=== PATIENT | female | born 1940 | race Caucasian/White ===

== ENCOUNTER 2016-04-10 13:25 | Emergency (ER) | payer OTHER ==
[~2016-04-10] VITALS: Ht 154.9 cm; Wt 96.7 kg
[~2016-04-10 13:25] MED LIST: ALPR0.25 PO; AZEL0.15 NAE; CLON0.5T3 PO; KRIL1000 PO; LORA10TA51 PO
[2016-04-10 13:34] VITALS: TEMP 36.8; Ht 154.9 cm; Wt 96.7 kg
[2016-04-10] MEDS ORDERED: METHYLPREDNISOLONE 125 MG VIAL IV STA (13:49)
--- NOTE | 2016-04-10 13:55 | EMERGENCY ROOM VISIT NOTE ---
History Report prepared by Cindy: Santhosh Chavez Under the Supervision of: Dr. Rbo Coker M.D. First contact with patient: 13:43 Chief Complaint: SHORTNESS OF BREATH Stated Complaint: SHORT OF BREATH, HOLDING FLUID, CHEST PAIN Nursing Triage Summary: Pt presents with sob that began last night. Intermittent chest pain across breasts, denies pain at present. Pt also reports swelling to hands/feets. History of Present Illness The patient is a 75 year old female who presents to the Emergency Room with complaints of persistent shortness of breath that started last night. She says she could not get a good breath and she had awful wheezing and coughing. The patient also notes that she has been building up a lot of fluid, and has had decreased amounts of urination. She states that she is "swollen from head to toe ". The patient is concerned about potential heart failure. She has no history of CHF, kidney problems, or lung problems. 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 The patient is an ex-smoker. She is not on an inhaler. The patient is diabetic. Source of History: patient Onset: Last night Position: other (global - shortness of breath) Timing: other (persistent) Associated Symptoms: + cough, + urinary symptoms (decreased urination amounts) Note: Associated symptoms: Global swelling, wheezing. Review of Systems See HPI for pertinent positives & negatives. A total of 10 systems reviewed and were otherwise negative. Past Medical & Surgical Medical Problems: (1) Diabetes (2) History of benign brain tumor (3) History of spinal stenosis (4) History of uterine cancer (5) Hypertension (6) Neuropathy Surgical Problems: (1) History of hysterectomy Family History Diabetes mellitus FH: cancer FH: heart disease FHx: gallbladder disease Hypertension Kidney disease Kidney stones Social History Smoking Status: Former Smoker Alcohol Use: none Drug Use: none Marital Status: Housing Status: lives with family Occupation Status: retired Current/Historical Medications Scheduled Aspirin (Aspirin Ec), 81 MG PO BID Azelastine Hcl (Astepro), 2 SPRY RAJAT DAILY Biotin (Biotin 5000), 2 CAP PO 3XWK Duloxetine HCl (Cymbalta), 60 CAP PO QDL Duloxetine Hcl (Cymbalta), 30 MG PO 3pm Epinephrine (Epipen), 0.3 MG IM UD Ergocalciferol (Vitamin D Cap), 50,000 INTER.UNIT PO WK Gabapentin (Neurontin), 400 MG PO TID Insulin Glargine (Lantus), 50-52 UNITS SC HS Insulin Lispro (Human) (Humalog Kwikpen), 1 UNITS SQ TIDM Krill Oil (Krill Oil), 1 CAP PO DAILY Magnesium Oxide (Mag-Ox), 400 MG PO HS Metoprolol Succ (Toprol Xl) (Toprol-Xl), 12.5 MG PO DAILY Multiple Vitamins W/ Minerals (Ocuvite), 1 TAB PO DAILY Nitroglycerin (Nitrostat), 0.4 MG UT PRN Prednisone (Prednisone), 20 MG PO DAILY Scheduled PRN Calcium Carbonate (Tums), 2 TABS PO DAILY PRN for ACID REFLUX Loratadine (Claritin), 1 TAB PO DAILY PRN for ALLERGIC REACTION Allergies Coded Allergies: Meperidine and Related (Unverified Allergy, Severe, almost "closed throat ", 11/10/14) Midodrine (Unverified Allergy, Severe, "almost closed throat", 11/10/14) Penicillins (Unverified Allergy, Severe, ANAPHYLAXIS, 11/10/14) Quinolones (Verified Allergy, Severe, TOLERATED LEVAQUIN IV - SEP 06, 11/10) CIPRO-THROAT CLOSED Sulfamethoxazole w/Trimethoprim (Verified Allergy, Severe, THROAT CLOSED, 05/14/15) Diphenoxylate (Verified Allergy, Intermediate, 11/10/14) Replaces DIPHENOXYLATE2 PINS & NEEDLES, DIFFICULTY BREATHING Glyburide (Verified Allergy, Intermediate, 11/10/14) GLUCOVANCE-PINS AND NEEDLES,DIFFICULTY BREATHING Metformin (Verified Allergy, Intermediate, 11/10/14) GLUCOVANCE-PINS & NEEDLES,DIFFICULTY BREATHING ALSO GLUCOPHAGE XR-EXTREME ABDOMINAL PAIN Nitrofurantoin (Verified Allergy, Intermediate, 11/10/14) RASH Oxycodone (Verified Allergy, Intermediate, 11/10/14) SEVERE RASH Paroxetine (Verified Allergy, Intermediate, 11/10/14) PINS & NEEDLES, DIFFICULTY BREATHING Ranitidine (Verified Allergy, Intermediate, 11/10/14) RASH Repaglinide (Verified Allergy, Intermediate, 11/10/14) PINS &NEEDLES, DIFFICULTY BREATHING Rosiglitazone (Verified Allergy, Intermediate, 11/10/14) PINS & NEEDLES, DIFFICULTY BREATHING Temazepam (Verified Allergy, Intermediate, 11/10/14) PINS & NEEDLES, DIFFICULTY BREATHING DENILSON Inhibitors (Unverified Allergy, Unknown, unknown to pt, 11/10/14) Atropine (Verified Allergy, Unknown, 11/10/14) H2 Antagonists (Unverified Allergy, Unknown, unknown to pt, 11/10/14) Iodinated Diagnostic Agents (Verified Allergy, Unknown, `, 05/14/15) Phenazopyridine (Verified Allergy, Unknown, 11/10/14) Carbamazepine (Verified Adverse Reaction, Severe, 11/10/14) TOO HARD ON DIGESTIVE TRACT-ALSO IN COMBO WITH DEPAKOTE ER CAUSED PLATELET COUNT TO DROP VERY LOW Valproate Derivatives (Verified Adverse Reaction, Severe, 11/10/14) COULDN'T WAKE UP-ALSO DEPAKOTE ER WITH TEGRETOL CAUSED PLATELET COUNT TO DROP VERY LOW Albuterol (Verified Adverse Reaction, Intermediate, 11/10/14) HEART PALPITATIONS Olanzapine (Verified Adverse Reaction, Intermediate, 11/10/14) COULDN'T WAKE UP, HALLUCINATIONS Rofecoxib (Verified Adverse Reaction, Intermediate, 11/10/14) RAISES BLOOD PRESSURE Diazepam (Verified Adverse Reaction, Mild, SEDATION LASTING TOO LONG, 11/10) COULDN'T WAKE UP Ibuprofen (Verified Adverse Reaction, Mild, 11/10/14) SICK STOMACH Lisinopril (Verified Adverse Reaction, Mild, 11/10/14) EXCESSIVE HUNGER Mirtazapine (Verified Adverse Reaction, Mild, 06/17/13) SEVERE DRY MOUTH Physical Exam Vital Signs Date Time Temp Pulse Resp B/P Pulse Ox O2 Delivery O2 Flow Rate FiO2 04/10/16 18:19 90 19 174/86 95 Room Air 04/10/16 15:58 98 18 98 Room Air 04/10/16 15:17 84 18 173/73 95 04/10/16 13:49 99 04/10/16 13:34 36.8 96 16 141/93 95 Room Air Physical Exam CONSTITUTIONAL: Mild distress. HEENT: No icterus, moist mucous membranes NECK: No meningismus, trachea is midline. CARDIOVASCULAR: Regular rate, normal perfusion RESPIRATORY: Bilateral mild wheezing without rhonchi or rales. GASTROINTESTINAL: Non-tender GENITOURINARY: No flank tenderness MUSCULOSKELETAL: Full range of motion NEUROLOGIC: No acute gross focal deficits. PSYCHIATRIC: Normal affect SKIN: Normal for ethnicity.No pedal edema. Medical Decision & Procedures ER Provider Diagnostic Interpretation: X-ray results as stated below per interpretation by me and the radiologist. CHEST ONE VIEW PORTABLE CLINICAL HISTORY: Dyspnea, atypical chest pain, wheezing. COMPARISON STUDY: 05/13/2015 FINDINGS: The cardiac and mediastinal contours remain stable. There is no failure. There is no focal pulmonary consolidation. There is stable left basilar atelectasis/scarring.[ IMPRESSION: No active disease in the chest. Electronically signed by: Onel Fernández M.D. 04/10/2016 2:04 PM Dictated Date/Time: 04/10/2016 2:04 PM Laboratory Results 04/10/16 13:50 Red Blood Count 5.25, Mean Corpuscular Volume 76.0, Mean Corpuscular Hemoglobin 24.6, Mean Corpuscular Hemoglobin Concent 32.3, Mean Platelet Volume 9.1, Neutrophils (%) (Auto) 75.0, Lymphocytes (%) (Auto) 17.6, Monocytes (%) (Auto) 5.2, Eosinophils (%) (Auto) 1.6, Basophils (%) (Auto) 0.3, Neutrophils # (Auto) 5.23, Lymphocytes # (Auto) 1.23, Monocytes # (Auto) 0.36, Eosinophils # (Auto) 0.11, Basophils # (Auto) 0.02 04/10/16 13:50 Test 04/10/16 13:50 04/10/16 14:32 04/10/16 16:10 White Blood Count 6.97 K/uL (4.8-10.8) Red Blood Count 5.25 M/uL (4.2-5.4) Hemoglobin 12.9 g/dL (12.0-16.0) Hematocrit 39.9 % (37-47) Mean Corpuscular Volume 76.0 fL (80-100) Mean Corpuscular Hemoglobin 24.6 pg (25-34) Mean Corpuscular Hemoglobin Concent 32.3 g/dl (32-36) Platelet Count 121 K/uL (130-400) Mean Platelet Volume 9.1 fL (7.4-10.4) Neutrophils (%) (Auto) 75.0 % Lymphocytes (%) (Auto) 17.6 % Monocytes (%) (Auto) 5.2 % Eosinophils (%) (Auto) 1.6 % Basophils (%) (Auto) 0.3 % Neutrophils # (Auto) 5.23 K/uL (1.4-6.5) Lymphocytes # (Auto) 1.23 K/uL (1.2-3.4) Monocytes # (Auto) 0.36 K/uL (0.11-0.59) Eosinophils # (Auto) 0.11 K/uL (0-0.5) Basophils # (Auto) 0.02 K/uL (0-0.2) RDW Standard Deviation 40.7 fL (36.4-46.3) RDW Coefficient of Variation 14.7 % (11.5-14.5) Immature Granulocyte % (Auto) 0.3 % Immature Granulocyte # (Auto) 0.02 K/uL (0.00-0.02) Prothrombin Time 12.0 SECONDS (9.0-12.0) Prothromb Time International Ratio 1.1 (0.9-1.1) Activated Partial Thromboplast Time 25.3 SECONDS (21.0-31.0) Partial Thromboplastin Ratio 1.0 D-Dimer 410 ug/L FEU (0-500) Anion Gap 7.0 mmol/L (3-11) Est Creatinine Clear Calc Drug Dose 43.1 ml/min Estimated GFR () 51.2 Estimated GFR (Non- 44.2 BUN/Creatinine Ratio 18.4 (10-20) Estimated Average Glucose 169 mg/dl Hemoglobin A1c 7.5 % (4.5-5.6) Calcium Level 9.1 mg/dl (8.5-10.1) Magnesium Level 2.2 mg/dl (1.8-2.4) Total Bilirubin 0.6 mg/dl (0.2-1) Direct Bilirubin 0.1 mg/dl (0-0.2) Aspartate Amino Transf (AST/SGOT) 17 U/L (15-37) Alanine Aminotransferase (ALT/SGPT) 29 U/L (12-78) Alkaline Phosphatase 80 U/L (45-117) Troponin I 0.040 ng/ml (0-0.045) Pro-B-Type Natriuretic Peptide 60 pg/ml (0-900) Total Protein 7.9 gm/dl (6.4-8.2) Albumin 3.5 gm/dl (3.4-5.0) Influenza Type A Antigen Neg for Influ A (NEG) Influenza Type B Antigen Neg for Influ B (NEG) Urine Color YELLOW Urine Appearance CLEAR (CLEAR) Urine pH 6.5 (4.5-7.5) Urine Specific [place] 1.006 (1.000-1.030) Urine Protein NEG (NEG) Urine Glucose (UA) 1+ (NEG) Urine Ketones NEG (NEG) Urine Occult Blood NEG (NEG) Urine Nitrite NEG (NEG) Urine Bilirubin NEG (NEG) Urine Urobilinogen NEG (NEG) Urine Leukocyte Esterase MODERATE (NEG) Urine WBC (Auto) >30 /hpf (0-5) Urine RBC (Auto) 0-4 /hpf (0-4) Urine Hyaline Casts (Auto) 0 /lpf (0-5) Urine Epithelial Cells (Auto) 20-30 /lpf (0-5) Urine Bacteria (Auto) NEG (NEG) Labs reviewed by ED physician. Medications Administered Medications (Trade) Dose Ordered Sig/Brittany Route Start Time Stop Time Status Last Admin Dose Admin Albuterol (Ventolin Hfa Inhaler) 2 puffs NOW ONCE INH 04/10/16 14:00 04/10/16 14:01 DC 04/10/16 14:25 2 PUFFS Methylprednisolone Sodium Succinate (Solu-Medrol IV) 125 mg NOW STAT IV 04/10/16 13:49 04/10/16 13:52 DC 04/10/16 14:25 125 MG ECG Indication: SOB/dyspnea Rate (beats per minute): 94 Rhythm: normal sinus Findings: no ectopy, other (normal axis, nonspecific ST findings) ED Course 1345: Past medical records reviewed. The patient was evaluated in room C10. A complete history and physical examination was performed. 1349: Ordered Solu-Medrol IV 125 mg IV. 1400: Ordered Ventolin Hfa Inhaler 2 puffs INH. 1720: I reevaluated the patient and her wheezing has improved. The patient verbally expressed agreement and understanding of the treatment plan. The patient will be discharged. Medical Decision Differential diagnoses include: viral syndrome, wheezing, CHF, heart disease. 35-year-old presented to the emergency room for evaluation of occasional cough with subjective sense of whole-body swelling for several days as well as subjective sense that she is not urinating as much. She is specifically concerned that she may be in heart failure. Lungs are noted to have mild scattered wheezing in all archibald without rales and there is no pedal edema. Labs and chest x-ray were unremarkable. She was given albuterol MDI and spacer in the emergency room with administration of this time at her IV. She felt better on reexamination without any wheezing and was given a prescription for prednisone for 5 days. GEN chest follow-up with her doctor and return for worsening worrisome symptoms Impression Primary Impression: Wheezing Scribe Attestation The scribe's documentation has been prepared under my direction and personally reviewed by me in its entirety. I confirm that the note above accurately reflects all work, treatment, procedures, and medical decision making performed by me. Departure Information Dispostion Home / Self-Care Prescriptions Prednisone (Prednisone) 20 Mg Tab 20 MG PO DAILY for 5 Days, #5 TAB Prov: Rob Coker MD 04/10/16 Referrals Khadijah Smith,DO (PCP) Forms HOME CARE DOCUMENTATION FORM, IMPORTANT VISIT INFORMATION Patient Instructions A Signature Page, ED Wheezing, [facility]
[2016-04-10] MEDS ORDERED: ALBUTEROL HFA 8 GM INHALER INH ONE (14:00)
[2016-04-10] MEDS ORDERED: CYM/30 PO ×2 (14:01→16:13)
--- NOTE | 2016-04-10 14:06 | DIAGNOSTIC IMAGING REPORT ---
CHEST ONE VIEW PORTABLE CLINICAL HISTORY: Dyspnea, atypical chest pain, wheezing. COMPARISON STUDY: 05/13/2015 FINDINGS: The cardiac and mediastinal contours remain stable. There is no failure. There is no focal pulmonary consolidation. There is stable left basilar atelectasis/scarring.[ IMPRESSION: No active disease in the chest. Electronically signed by: Onel Fernández M.D. 04/10/2016 2:04 PM Dictated Date/Time: 04/10/2016 2:04 PM
[2016-04-10 14:10] LABS: BASO % 0.3 %; BASO ABS # 0.02 K/uL (0-0.2); COMPLETE YES; EOS % 1.6 %; HEMATOCRIT 39.9 % (37-47); IG% 0.3 %; LYMPH % 17.6 %; LYMPH ABS # 1.23 K/uL (1.2-3.4); MEAN CORPUSCULAR HEMOGLOBIN 24.6 pg (25-34); MEAN CORPUSCULAR HGB CONC 32.3 g/dl (32-36); MEAN PLATELET VOLUME 9.1 fL (7.4-10.4); MONO % 5.2 %; PLATELET COUNT 121 K/uL (130-400); RED BLOOD COUNT 5.25 M/uL (4.2-5.4); WHITE BLOOD COUNT 6.97 K/uL (4.8-10.8)
[2016-04-10 14:18] LABS: INR 1.1 (0.9-1.1)
[2016-04-10 14:32] LABS: BUN/CREATININE RATIO 18.4 (10-20); CALCIUM 9.1 mg/dl (8.5-10.1); CREATININE 1.2 mg/dl (0.60-1.20); MAGNESIUM 2.2 mg/dl (1.8-2.4); POTASSIUM 4.3 mmol/L (3.5-5.1)
[2016-04-10 14:52] LABS: ESTIMATED AVERAGE GLUCOSE 169 mg/dl; HA1C FLAG Normal (Normal)
[2016-04-10] MEDS ORDERED: INSDGI SC (15:03)
[2016-04-10] MEDS ORDERED: GABA1CAP5 PO (15:09)
[2016-04-10] MEDS ORDERED: MAGN400T6 PO (16:13)
[2016-04-10] MEDS ORDERED: INSU100I2 SQ (16:13)
[2016-04-10] MEDS ORDERED: ERGO1CAP35 PO (16:13)
[2016-04-10] MEDS ORDERED: BIOTCAP2 PO (16:13)
[2016-04-10] MEDS ORDERED: CALC500C3 PO (16:13)
[2016-04-10] MEDS ORDERED: ASPI81TA28 PO (16:17)
[2016-04-10] MEDS ORDERED: MULT-188 PO (16:17)
[2016-04-10 16:47] LABS: URINE APPEARANCE CLEAR (CLEAR); URINE BILIRUBIN NEG (NEG); URINE COLOR YELLOW; URINE EPITHELIAL CELL AUTO 20-30 /lpf (0-5); URINE NITRITE NEG (NEG); URINE PH 6.5 (4.5-7.5); URINE SPECIFIC GRAVITY 1.006 (1.000-1.030); UROBILINOGEN NEG (NEG); ZZUR CULT IF INDIC CLEAN CATCH YES
[2016-04-10 16:50] LABS: MANUAL MICROSCOPIC REQUIRED? NO; REVIEW REQ? NO
[2016-04-10] MEDS ORDERED: PRED20TA PO (17:33)
[2016-04-10 18:19] VITALS: BP 174/86; PULSE 90; O2SAT 95
[2016-04-10] MEDS ORDERED: EPP3/2 IM (18:31)
[2016-04-10] MEDS ORDERED: METO25TA3 PO (18:31)
[2016-04-10] MEDS ORDERED: NITR0.4S UT (18:31)
--- NOTE | 2016-04-12 13:48 | Pharmacy Progress Note ---
ED Pharmacist Culture FollowUp Date of Service: Apr 12, 2016. Patient's urine culture from 04/10/16 growing E coli 50,000 CFU/mL plus low counts of other mixed praveena. Patient did not present with urinary symptoms, rather had been c/o SOB, wheezing, mild cough and fluid retention. UA did contain 20-30 epis likely indicating contamination. I attempted to contact the patient to determine if she had urinary symptoms (ph # [phone]). There was no answer. I did leave a message on her ans machine asking she call back. If she does have urinary symptoms she should have a repeat urine cx done by her PCP.
== END 2016-04-10 18:43 | disposition home or self-care (01) ==
LOC: C.EDB 13:31 → C.EDC 18:43
DX: R06.2 Wheezing (principal); E11.9 Type 2 diabetes mellitus without complications; I10 Essential (primary) hypertension; Z85.41 Personal history of malignant neoplasm of cervix uteri; Z90.710 Acquired absence of both cervix and uterus; Z87.891 Personal history of nicotine dependence; Z79.82 Long term (current) use of aspirin; Z79.4 Long term (current) use of insulin; Z79.899 Other long term (current) drug therapy; Z88.0 Allergy status to penicillin; Z88.2 Allergy status to sulfonamides; Z88.5 Allergy status to narcotic agent; Z88.8 Allergy status to other drugs, medicaments and biological substances

== ENCOUNTER → 2016-05-04 | Outpatient (CLI) | payer OTHER ==
[~2016-05-04] MED LIST changes: -ALPR0.25 PO; +ASPI81TA28 PO; +BIOTCAP2 PO; +CALC500C3 PO; -CLON0.5T3 PO; +CYM/30 PO; +EPP3/2 IM; +ERGO1CAP35 PO; +GABA1CAP5 PO; +INSDGI SC; +INSU100I2 SQ; +MAGN400T6 PO; +METO25TA3 PO; +MULT-188 PO; +NITR0.4S UT
--- NOTE | 2016-05-09 06:37 | CODING QUERY MEDICAL NECESSITY ---
SUPPORTING DIAGNOSIS NEEDED A supporting diagnosis is required for the test/procedure performed on this patient in order for us to be reimbursed by the patient's insurance. Please provide a supporting diagnosis for the following test/procedure listed below next to the test name along with your signature. *If there is no additional diagnosis for this patient that would support the following test/procedure please document that below next to the test/procedure. Test(s)/Procedure(s) that require a supporting diagnosis: * DXA BONE DENSITY DIAGNOSIS: * DOS: 05/04/16 Provider Signature: Date: Thank you Ivania Salas Health Information Management Once completed, please kindly fax back to [phone] For questions please call [phone]
== END | disposition home or self-care (01) ==
LOC: C.MAMM 13:01
PROVIDERS: ATTEND Internal Medicine Endocrinology, Diabetes & Metabolism
DX: M48.02 Spinal stenosis, cervical region (principal); E55.9 Vitamin D deficiency, unspecified; E66.9 Obesity, unspecified; E11.9 Type 2 diabetes mellitus without complications

== ENCOUNTER → 2016-05-26 | Outpatient (CLI) | payer OTHER ==
[2016-05-26 17:06] LABS: ALT/SGPT 35 U/L (12-78); AST/SGOT 27 U/L (15-37); BLOOD UREA NITROGEN 27 mg/dl (7-18); BUN/CREATININE RATIO 26.8 (10-20); CALCIUM 9.2 mg/dl (8.5-10.1); CARBON DIOXIDE 30 mmol/L (21-32); CHLORIDE 101 mmol/L (98-107); CHOLESTEROL 139 mg/dl (0-200); GLUCOSE 153 mg/dl (70-99); POTASSIUM 4.1 mmol/L (3.5-5.1); SODIUM 138 mmol/L (136-145)
[2016-05-26 17:15] LABS: ALB/GLOB RATIO 0.8 (0.9-2); ALKALINE PHOSPHATASE 67 U/L (45-117); CHOLESTEROL/HDL RATIO 3.2; FERRITIN 65.1 ng/ml (8.0-388.0); HDL CHOLESTEROL 43 mg/dl; LDL CHOLESTEROL CALCULATED 61 mg/dl; TOTAL IRON BINDING CAPACITY 303 mcg/dl (250-450); TRIGLYCERIDES 173 mg/dl (0-150); VERY LOW DENSITY LIPOPROT CALC 35 mg/dl
--- NOTE | 2016-05-30 12:00 | CODING QUERY MEDICAL NECESSITY ---
SUPPORTING DIAGNOSIS NEEDED A supporting diagnosis is required for the test/procedure performed on this patient in order for us to be reimbursed by the patient's insurance. Please provide a supporting diagnosis for the following test/procedure listed below next to the test name along with your signature. *If there is no additional diagnosis for this patient that would support the following test/procedure please document that below next to the test/procedure. Test(s)/Procedure(s) that require a supporting diagnosis: DOS 05/26 * Vitamin D DIAGNOSIS: * Vitamin B12 DIAGNOSIS: Provider Signature: Date: Thank you Carol Sexton Health Information Management Once completed, please kindly fax back to [phone] For questions please call [phone]
[2016-05-31 12:15] LABS: ILGF1 Z SCORE FEMALE 0.1 SD (-2.0 - +2.0); INSULIN LIKE GROWTH FACTOR-I 105 ng/mL (34-245); TESTOSTERONE,TOTAL 10 ng/dL (2-45)
== END | disposition home or self-care (01) ==
LOC: C.LAB1850 15:34
PROVIDERS: ATTEND Internal Medicine Endocrinology, Diabetes & Metabolism
DX: L65.9 Nonscarring hair loss, unspecified (principal); E11.9 Type 2 diabetes mellitus without complications; E55.9 Vitamin D deficiency, unspecified

== ENCOUNTER → 2016-10-02 | Outpatient (CLI) | payer OTHER ==
--- NOTE | 2016-10-02 17:18 | DIAGNOSTIC IMAGING REPORT ---
MRI OF THE LUMBAR SPINE WITHOUT CONTRAST CLINICAL HISTORY: Lumbar spinal stenosis. Chronic low back pain radiating into both lower extremities. COMPARISON STUDY: Lumbar spine MRI August 27, 2010. TECHNIQUE: Utilizing a 1.5 Trisha magnet and dedicated coil, multiplanar, multiecho imaging of the lumbar spine was performed without IV contrast. FINDINGS: For purposes of numbering on this exam, the L5-S1 disc space is assigned to axial image 27 of 30. Vertebral body heights are maintained. No suspicious marrow replacement is present. Discogenic changes are noted at multiple levels. There is no intracanalicular mass or fluid collection. Paravertebral soft tissues are unremarkable. There are innumerable bilateral renal lesions. These likely reflect cysts are suboptimally assessed on this unenhanced exam. L1-2: The central canal and neural foramen are patent. There is moderate facet arthrosis. L2-3: There is marked disc space narrowing with disc bulge, ligamentous hypertrophy and facet arthrosis. There is moderate to severe narrowing of the central canal and lateral recesses with mild narrowing of both neural foramen. This has diminished since exam of August 27, 2010. L3-4: There is marked disc space narrowing with minimal disc bulge. There is ligamentous hypertrophy and facet arthrosis. There is moderate to severe narrowing of the central canal. This is progressed since prior exam. L4-5: There is disc space narrowing. There is facet arthrosis. Central canal is patent. There is mild narrowing of the left neural foramen. L5-S1: The central canal is patent. There is mild narrowing of the right neural foramen. There is facet arthrosis. IMPRESSION: Moderate to severe multilevel degenerative disc disease and facet arthrosis of the lumbar spine. Moderate to severe central canal stenosis at L2-L3 and L3-L4, as described above. Narrowing at L2-L3 has improved since prior exam while narrowing at L3-L4 has progressed since exam of August 27, 2010. Electronically signed by: Kirby Anna M.D. 10/02/2016 5:17 PM Dictated Date/Time: 10/02/2016 5:11 PM
== END | disposition home or self-care (01) ==
LOC: C.MRIBC 15:56
PROVIDERS: ATTEND Pain Medicine Interventional Pain Medicine
DX: M48.06 Spinal stenosis, lumbar region (principal)

== ENCOUNTER → 2016-10-05 | Outpatient (CLI) | payer OTHER ==
[2016-10-05 14:41] LABS: HEMATOCRIT 41.3 % (37-47)
[2016-10-05 15:23] LABS: RATIO 98.3 mcg/mg (0-30.0)
[2016-10-06 06:10] LABS: ESTIMATED AVERAGE GLUCOSE 163 mg/dl; HA1C FLAG Normal (Normal)
== END | disposition home or self-care (01) ==
LOC: C.LAB1850 13:42
PROVIDERS: ATTEND Internal Medicine Endocrinology, Diabetes & Metabolism
DX: E11.9 Type 2 diabetes mellitus without complications (principal)

== ENCOUNTER → 2017-02-12 | Outpatient (CLI) | payer OTHER ==
[2017-02-12 15:21] LABS: ALT/SGPT 53 U/L (12-78); AST/SGOT 36 U/L (15-37); BLOOD UREA NITROGEN 20 mg/dl (7-18); BUN/CREATININE RATIO 18.6 (10-20); CALCIUM 9.2 mg/dl (8.5-10.1); CARBON DIOXIDE 30 mmol/L (21-32); CHLORIDE 103 mmol/L (98-107); CREATININE 1.08 mg/dl (0.60-1.20); GLUCOSE 124 mg/dl (70-99); POTASSIUM 4.5 mmol/L (3.5-5.1); SODIUM 139 mmol/L (136-145)
[2017-02-12 15:24] LABS: ALB/GLOB RATIO 0.9 (0.9-2); ALKALINE PHOSPHATASE 68 U/L (45-117)
== END | disposition home or self-care (01) ==
LOC: C.LAB1850 13:39
PROVIDERS: ATTEND Internal Medicine Cardiovascular Disease
DX: E11.21 Type 2 diabetes mellitus with diabetic nephropathy (principal)

== ENCOUNTER → 2017-03-16 | Outpatient (CLI) | payer OTHER ==
--- NOTE | 2017-03-16 14:21 | DIAGNOSTIC IMAGING REPORT ---
CHEST 2 VIEWS ROUTINE HISTORY: Shortness of breath. COMPARISON: Chest 04/10/2016. FINDINGS: The lungs are clear. Cardiac silhouette is normal in size. No pleural effusions. No pneumothorax. IMPRESSION: No acute process. Electronically signed by: Javy Mcdaniel M.D. 03/16/2017 2:20 PM Dictated Date/Time: 03/16/2017 2:01 PM
== END | disposition home or self-care (01) ==
LOC: C.RAD1850 13:51
PROVIDERS: ATTEND Physician Assistant
DX: R06.02 Shortness of breath (principal)

== ENCOUNTER → 2017-04-20 | Outpatient (CLI) | payer OTHER ==
[2017-04-20 14:42] LABS: HEMATOCRIT 39.8 % (37-47); HEMOGLOBIN 12.8 g/dL (12.0-16.0)
[2017-04-21 08:41] LABS: HEMOGLOBIN A1C 7.6 % (4.5-5.6)
== END | disposition home or self-care (01) ==
LOC: C.LAB1850 13:37
PROVIDERS: ATTEND Internal Medicine Endocrinology, Diabetes & Metabolism
DX: E11.9 Type 2 diabetes mellitus without complications (principal); E55.9 Vitamin D deficiency, unspecified

== ENCOUNTER 2017-06-22 16:30 | Emergency (ER) | payer OTHER ==
[~2017-06-22] VITALS: Ht 154.9 cm; Wt 101.0 kg
[~2017-06-22 16:30] MED LIST changes: +GABA-1220 PO; -GABA1CAP5 PO
[2017-06-22 16:35] VITALS: TEMP 37; Ht 154.9 cm; Wt 101.0 kg
[2017-06-22 18:32] LABS: BASO % 0.2 %; BASO ABS # 0.01 K/uL (0-0.2); EOS % 3.1 %; EOS ABS # 0.15 K/uL (0-0.5); HEMATOCRIT 40.4 % (37-47); HEMOGLOBIN 12.7 g/dL (12.0-16.0); IG# 0.02 K/uL (0.00-0.02); LYMPH % 20.7 %; LYMPH ABS # 1.01 K/uL (1.2-3.4); MEAN CELL VOLUME 76.4 fL (80-100); MEAN CORPUSCULAR HGB CONC 31.4 g/dl (32-36); MEAN PLATELET VOLUME 9.4 fL (7.4-10.4); MONO % 5.1 %; MONO ABS # 0.25 K/uL (0.11-0.59); NEUT % 70.5 %; NEUT ABS # 3.45 K/uL (1.4-6.5); PLATELET COUNT 114 K/uL (130-400); RED CELL DISTRIBUTION WIDTH CV 14.5 % (11.5-14.5); RED CELL DISTRIBUTION WIDTH SD 40.4 fL (36.4-46.3); WHITE BLOOD COUNT 4.89 K/uL (4.8-10.8)
--- NOTE | 2017-06-22 18:36 | DIAGNOSTIC IMAGING REPORT ---
CHEST 2 VIEWS ROUTINE CLINICAL HISTORY: 76 years-old Female presenting with cough eval for pna, chest tightness, shortness of breath for one month. TECHNIQUE: PA and lateral views of the chest were obtained. COMPARISON: 03/16/2017. FINDINGS: Atherosclerosis of the aortic arch. Cardiac silhouette normal in size. Prominent pericardial fat pad in the region of the right heart border/right middle lobe. Lungs and pleural spaces clear. Degenerative changes of the thoracic spine. Cholecystectomy clips noted. IMPRESSION: 1. No acute cardiopulmonary disease. Electronically signed by: Chi Blackwell M.D. 06/22/2017 6:35 PM Dictated Date/Time: 06/22/2017 6:34 PM
[2017-06-22 18:43] LABS: INR 1.1 (0.9-1.1)
[2017-06-22 18:44] LABS: CREATININE 1.03 mg/dl (0.60-1.20); POTASSIUM 3.9 mmol/L (3.5-5.1)
[2017-06-22] MEDS ORDERED: DOXY100C2 PO (19:12)
[2017-06-22] MEDS ORDERED: DOXYCYCLINE HYCLATE 100 MG CAP PO ONE (19:15)
[2017-06-22 19:29] VITALS: BP 171/84; PULSE 91; O2SAT 94
[2017-06-22 20:32] LABS: INFLUENZA B ANTIGEN Neg for Influ B (NEG)
--- NOTE | 2017-06-22 23:28 | EMERGENCY ROOM VISIT NOTE ---
History Report prepared by Cindy: Nader Ramirez Under the Supervision of: Dr. Dyllan Brito M.D. First contact with patient: 17:20 Chief Complaint: ILLNESS Stated Complaint: COLD COUGH SOB REF BY DOCTOR History of Present Illness The patient is a 76 year old female who presents to the Emergency Room with complaints of persistent general sinus congestion for four weeks. She states that she has been sick for four weeks initially with sinus congestion. She notes that the congestion has spread to her chest. She was seen today at her PCP 's office, though was advised to come to the ED for evaluation due to "junky lungs." She notes some shortness of breath, though denies any chest pain. She states that she has had a cough for little more than a week. She notes that she is having a difficult time bringing any mucus up, though when she does it is bright green. She reports body aches and sinus pain. She notes that she has had intermittent low grade fevers with the highest recorded at 100.7 Fahrenheit. She denies any vomiting. She notes a history of HTN. She has recently seen a senior director insight due to wheezing. She is former smoker. She has had the flu shot this season. Source of History: patient Onset: four weeks Position: other (general -sinus) Quality: other (congestion) Timing: other (persistent) Associated Symptoms: + fevers, + cough, + SOB, No vomiting, No back pain Note: She notes body aches and sinus pain. Review of Systems See HPI for pertinent positives & negatives. A total of 10 systems reviewed and were otherwise negative. Past Medical & Surgical Medical Problems: (1) Diabetes (2) History of benign brain tumor (3) History of spinal stenosis (4) History of uterine cancer (5) Hypertension (6) Neuropathy Surgical Problems: (1) History of hysterectomy Family History Diabetes mellitus FH: cancer FH: heart disease FHx: gallbladder disease Hypertension Kidney disease Kidney stones Social History Smoking Status: Former Smoker Alcohol Use: none Drug Use: none Marital Status: Housing Status: lives with family Occupation Status: retired Current/Historical Medications Scheduled Aspirin (Aspirin Ec), 81 MG PO BID Azelastine Hcl (Astepro), 2 SPRY RAJAT DAILY Biotin (Biotin 5000), 2 CAP PO 3XWK Doxycycline Hyclate (Vibramycin), 100 MG PO BID Duloxetine HCl (Cymbalta), 60 CAP PO QDL Duloxetine Hcl (Cymbalta), 30 MG PO 3pm Epinephrine (Epipen), 0.3 MG IM UD Ergocalciferol (Vitamin D Cap), 50,000 INTER.UNIT PO WK Gabapentin (Neurontin), 400 MG PO TID Insulin Glargine (Lantus), 50-52 UNITS SC HS Insulin Lispro (Human) (Humalog Kwikpen), 1 UNITS SQ TIDM Krill Oil (Krill Oil), 1 CAP PO DAILY Magnesium Oxide (Mag-Ox), 400 MG PO HS Metoprolol Succ (Toprol Xl) (Toprol-Xl), 12.5 MG PO DAILY Multiple Vitamins W/ Minerals (Ocuvite), 1 TAB PO DAILY Nitroglycerin (Nitrostat), 0.4 MG UT PRN Scheduled PRN Calcium Carbonate (Tums), 2 TABS PO DAILY PRN for ACID REFLUX Loratadine (Claritin), 1 TAB PO DAILY PRN for ALLERGIC REACTION Allergies Coded Allergies: Meperidine and Related (Unverified Allergy, Severe, almost "closed throat ", 11/10/14) Midodrine (Unverified Allergy, Severe, "almost closed throat", 11/10/14) Penicillins (Unverified Allergy, Severe, ANAPHYLAXIS, 11/10/14) Quinolones (Verified Allergy, Severe, TOLERATED LEVAQUIN IV - SEP 06, 11/10) CIPRO-THROAT CLOSED Sulfamethoxazole w/Trimethoprim (Verified Allergy, Severe, THROAT CLOSED, 05/14/15) Diphenoxylate (Verified Allergy, Intermediate, 11/10/14) Replaces DIPHENOXYLATE2 PINS & NEEDLES, DIFFICULTY BREATHING Glyburide (Verified Allergy, Intermediate, 11/10/14) GLUCOVANCE-PINS AND NEEDLES,DIFFICULTY BREATHING Metformin (Verified Allergy, Intermediate, 11/10/14) GLUCOVANCE-PINS & NEEDLES,DIFFICULTY BREATHING ALSO GLUCOPHAGE XR-EXTREME ABDOMINAL PAIN Nitrofurantoin (Verified Allergy, Intermediate, 11/10/14) RASH Oxycodone (Verified Allergy, Intermediate, 11/10/14) SEVERE RASH Paroxetine (Verified Allergy, Intermediate, 11/10/14) PINS & NEEDLES, DIFFICULTY BREATHING Ranitidine (Verified Allergy, Intermediate, 11/10/14) RASH Repaglinide (Verified Allergy, Intermediate, 11/10/14) PINS &NEEDLES, DIFFICULTY BREATHING Rosiglitazone (Verified Allergy, Intermediate, 11/10/14) PINS & NEEDLES, DIFFICULTY BREATHING Temazepam (Verified Allergy, Intermediate, 11/10/14) PINS & NEEDLES, DIFFICULTY BREATHING DENILSON Inhibitors (Unverified Allergy, Unknown, unknown to pt, 11/10/14) Atropine (Verified Allergy, Unknown, 11/10/14) H2 Antagonists (Unverified Allergy, Unknown, unknown to pt, 11/10/14) Iodinated Diagnostic Agents (Verified Allergy, Unknown, `, 05/14/15) Phenazopyridine (Verified Allergy, Unknown, 11/10/14) Carbamazepine (Verified Adverse Reaction, Severe, 11/10/14) TOO HARD ON DIGESTIVE TRACT-ALSO IN COMBO WITH DEPAKOTE ER CAUSED PLATELET COUNT TO DROP VERY LOW Valproate Derivatives (Verified Adverse Reaction, Severe, 11/10/14) COULDN'T WAKE UP-ALSO DEPAKOTE ER WITH TEGRETOL CAUSED PLATELET COUNT TO DROP VERY LOW Albuterol (Verified Adverse Reaction, Intermediate, 11/10/14) HEART PALPITATIONS Olanzapine (Verified Adverse Reaction, Intermediate, 11/10/14) COULDN'T WAKE UP, HALLUCINATIONS Rofecoxib (Verified Adverse Reaction, Intermediate, 11/10/14) RAISES BLOOD PRESSURE Diazepam (Verified Adverse Reaction, Mild, SEDATION LASTING TOO LONG, 11/10) COULDN'T WAKE UP Ibuprofen (Verified Adverse Reaction, Mild, 11/10/14) SICK STOMACH Lisinopril (Verified Adverse Reaction, Mild, 11/10/14) EXCESSIVE HUNGER Mirtazapine (Verified Adverse Reaction, Mild, 06/17/13) SEVERE DRY MOUTH Physical Exam Vital Signs Date Time Temp Pulse Resp B/P (MAP) Pulse Ox O2 Delivery O2 Flow Rate FiO2 06/22/17 19:29 91 24 171/84 94 06/22/17 18:38 90 22 186/97 93 Room Air 06/22/17 16:35 37.0 93 22 172/93 95 Room Air Physical Exam Constitutional: Vital signs reviewed. Eyes: Pupils are equal round reactive to light. Conjunctiva are noninjected. ENT: Pharynx is clear without erythema or exudate. Mucous membranes are moist. Neck supple without meningeal signs. Respiratory: Clear to auscultation bilaterally. Breath sounds are equal bilaterally. No rales or wheezing. No rhonchi. Cardiovascular: Regular rate and rhythm. No rubs or gallops. GI: Soft, nondistended and nontender. Bowel sounds are present. Musculoskeletal: No peripheral edema. No lower extremity tenderness. Integumentary: No cyanosis. Neurological: The patient is awake and alert. No focal deficits. Psychiatric: Normal affect. Medical Decision & Procedures ER Provider Diagnostic Interpretation: Radiology results as stated below per my review and the radiologist's interpretation: CHEST 2 VIEWS ROUTINE CLINICAL HISTORY: 76 years-old Female presenting with cough eval for pna, chest tightness, shortness of breath for one month. TECHNIQUE: PA and lateral views of the chest were obtained. COMPARISON: 03/16/2017. FINDINGS: Atherosclerosis of the aortic arch. Cardiac silhouette normal in size. Prominent pericardial fat pad in the region of the right heart border/right middle lobe. Lungs and pleural spaces clear. Degenerative changes of the thoracic spine. Cholecystectomy clips noted. IMPRESSION: 1. No acute cardiopulmonary disease. Electronically signed by: Chi Blackwell M.D. 06/22/2017 6:35 PM Dictated Date/Time: 06/22/2017 6:34 PM Laboratory Results 06/22/17 17:52 Red Blood Count 5.29, Mean Corpuscular Volume 76.4, Mean Corpuscular Hemoglobin 24.0, Mean Corpuscular Hemoglobin Concent 31.4, Mean Platelet Volume 9.4, Neutrophils (%) (Auto) 70.5, Lymphocytes (%) (Auto) 20.7, Monocytes (%) (Auto) 5.1, Eosinophils (%) (Auto) 3.1, Basophils (%) (Auto) 0.2, Neutrophils # (Auto) 3.45, Lymphocytes # (Auto) 1.01, Monocytes # (Auto) 0.25, Eosinophils # (Auto) 0.15, Basophils # (Auto) 0.01 06/22/17 17:52 Test 06/22/17 17:52 06/22/17 19:26 White Blood Count 4.89 K/uL (4.8-10.8) Red Blood Count 5.29 M/uL (4.2-5.4) Hemoglobin 12.7 g/dL (12.0-16.0) Hematocrit 40.4 % (37-47) Mean Corpuscular Volume 76.4 fL (80-100) Mean Corpuscular Hemoglobin 24.0 pg (25-34) Mean Corpuscular Hemoglobin Concent 31.4 g/dl (32-36) Platelet Count 114 K/uL (130-400) Mean Platelet Volume 9.4 fL (7.4-10.4) Neutrophils (%) (Auto) 70.5 % Lymphocytes (%) (Auto) 20.7 % Monocytes (%) (Auto) 5.1 % Eosinophils (%) (Auto) 3.1 % Basophils (%) (Auto) 0.2 % Neutrophils # (Auto) 3.45 K/uL (1.4-6.5) Lymphocytes # (Auto) 1.01 K/uL (1.2-3.4) Monocytes # (Auto) 0.25 K/uL (0.11-0.59) Eosinophils # (Auto) 0.15 K/uL (0-0.5) Basophils # (Auto) 0.01 K/uL (0-0.2) RDW Standard Deviation 40.4 fL (36.4-46.3) RDW Coefficient of Variation 14.5 % (11.5-14.5) Immature Granulocyte % (Auto) 0.4 % Immature Granulocyte # (Auto) 0.02 K/uL (0.00-0.02) Prothrombin Time 11.7 SECONDS (9.0-12.0) Prothromb Time International Ratio 1.1 (0.9-1.1) Activated Partial Thromboplast Time 25.0 SECONDS (21.0-31.0) Partial Thromboplastin Ratio 1.0 Anion Gap 6.0 mmol/L (3-11) Est Creatinine Clear Calc Drug Dose 50.7 ml/min Estimated GFR () 61.2 Estimated GFR (Non- 52.8 BUN/Creatinine Ratio 20.5 (10-20) Calcium Level 9.0 mg/dl (8.5-10.1) Influenza Type A Antigen Neg for Influ A (NEG) Influenza Type B Antigen Neg for Influ B (NEG) Laboratory results as reviewed by me. Medications Administered Medications (Trade) Dose Ordered Sig/Brittany Route Start Time Stop Time Status Last Admin Dose Admin Doxycycline Hyclate (Vibramycin Cap) 100 mg ONE ONCE PO 06/22/17 19:15 06/22/17 19:16 DC 06/22/17 19:15 100 MG ED Course 1720: The patient was evaluated in room B8. A complete history and physical exam was performed. 1911: I reassessed the patient at this time. She would like to go home with antibiotics since she has been sick for so long. I discussed the results and treatment plan with the patient. I answered all pertaining questions that she had. She expressed understanding and verbalized agreement. The patient will be discharged home. 1914: Ordered Doxycycline Hyclate 100 mg PO Medical Decision This is a 76-year-old female presents with sinus symptoms and cough. Differential diagnosis includes pneumonia, bronchitis, sinusitis, influenza, viral syndrome. I did perform a limited focused review of portions of the patient's old chart on the electronic medical record. The patient has had no recent pertinent visits to this hospital. I did evaluate the patient as noted above. Patient has been sick for approximately 4 weeks. It started off the sinus symptoms and now she is having chest congestion and a cough with some shortness of breath. IV access was established. I did order and personally review the patient's chest x-ray as described above. She has no evidence of pneumonia. I did order and review the patient's blood work as noted in the electronic medical record. She has chronic thrombocytopenia. Rapid flu testing was negative. I did discuss the test results with the patient. As she has been sick for 4 weeks she did wish to be treated with antibiotics. I did feel this was reasonable. I did treat her with doxycycline. She was discharged with a prescription for doxycycline and will follow up with her doctor. Medication Reconcilliation Current Medication List: was personally reviewed by me Blood Pressure Screening Patient's blood pressure: Elevated blood pressure Blood pressure disposition: Referred to PCP Impression Primary Impression: Acute bronchitis Scribe Attestation The scribe's documentation has been prepared under my direct and personally reviewed by me in its entirety. I confirm that the note above accurately reflects all work, treatment, procedures, and medical decision making performed by me. Departure Information Dispostion Home / Self-Care Prescriptions Doxycycline Hyclate (VIBRAMYCIN) 100 Mg Cap 100 MG PO BID for 10 Days, #20 CAP Prov: Dyllan Brito M.D. 06/22/17 Referrals Khadijah Smith, (PCP) Forms HOME CARE DOCUMENTATION FORM, IMPORTANT VISIT INFORMATION, WORK / SCHOOL INSTRUCTIONS Patient Instructions Bronchitis Acute, My [facility] Additional Instructions You have been examined and treated today on an emergency basis only. This is not a substitute for, or an effort to provide, complete comprehensive medical care. It is impossible to recognize and treat all injuries or illnesses in a single emergency department visit. It is therefore important that you follow up closely with your physician. Call as soon as possible for an appointment. Return for worsening symptoms or if you develop fever, vomiting, chest pain or any other concerning symptoms. Problem Qualifiers Primary Impression: Acute bronchitis Bronchitis organism: unspecified organism Qualified Codes: J20.9 - Acute bronchitis, unspecified
== END 2017-06-22 19:31 | disposition home or self-care (01) ==
LOC: C.EDB 16:31
DX: J20.9 Acute bronchitis, unspecified (principal); R05 Cough; R06.02 Shortness of breath; E11.9 Type 2 diabetes mellitus without complications; Z79.4 Long term (current) use of insulin; Z79.899 Other long term (current) drug therapy; Z88.8 Allergy status to other drugs, medicaments and biological substances; Z88.0 Allergy status to penicillin

== ENCOUNTER → 2017-07-10 | Outpatient (CLI) | payer OTHER ==
[~2017-07-10] MED LIST changes: +ASTN NAE; +CETI10TA84 PO; +CYM20 PO; +DOXY100C2 PO; +DULO-24 PO; +FLNIN; +INSDGIPEN SC; +LEVA45AE PO; +NRN600 PO; +PRD10 PO; +SALI0.6510; +SPACMIS7 PO; +TPRSR/25 PO
[2017-07-10 15:34] LABS: BASO % 0.3 %; BASO ABS # 0.02 K/uL (0-0.2); EOS % 1.8 %; EOS ABS # 0.11 K/uL (0-0.5); HEMATOCRIT 39.1 % (37-47); HEMOGLOBIN 12.7 g/dL (12.0-16.0); IG# 0.02 K/uL (0.00-0.02); LYMPH % 21.7 %; LYMPH ABS # 1.31 K/uL (1.2-3.4); MEAN CELL VOLUME 77.4 fL (80-100); MEAN CORPUSCULAR HEMOGLOBIN 25.1 pg (25-34); MEAN CORPUSCULAR HGB CONC 32.5 g/dl (32-36); MEAN PLATELET VOLUME 9.4 fL (7.4-10.4); MONO % 9.5 %; MONO ABS # 0.57 K/uL (0.11-0.59); NEUT % 66.4 %; PLATELET COUNT 117 K/uL (130-400); RED CELL DISTRIBUTION WIDTH CV 15.2 % (11.5-14.5); RED CELL DISTRIBUTION WIDTH SD 42.2 fL (36.4-46.3); WHITE BLOOD COUNT 6.03 K/uL (4.8-10.8)
[2017-07-10 16:09] LABS: ALBUMIN 3.3 gm/dl (3.4-5.0); ALT/SGPT 81 U/L (12-78); BLOOD UREA NITROGEN 26 mg/dl (7-18); CALCIUM 9.1 mg/dl (8.5-10.1); CARBON DIOXIDE 28 mmol/L (21-32); CREATININE 1.35 mg/dl (0.60-1.20); GLUCOSE 252 mg/dl (70-99); POTASSIUM 4.1 mmol/L (3.5-5.1); SODIUM 137 mmol/L (136-145)
[2017-07-10 16:12] LABS: ALKALINE PHOSPHATASE 68 U/L (45-117); AST/SGOT 66 U/L (15-37); TOTAL PROTEIN 8.1 gm/dl (6.4-8.2)
[2017-07-11 18:17] LABS: CREATININE RANDOM URINE 52.9 mg/dl
== END | disposition home or self-care (01) ==
LOC: C.LAB1850 14:38
PROVIDERS: ATTEND Nurse Practitioner Family
DX: R82.99 Other abnormal findings in urine (principal)

== ENCOUNTER → 2017-07-11 | Outpatient (CLI) | payer OTHER ==
--- NOTE | 2017-07-11 17:30 | DIAGNOSTIC IMAGING REPORT ---
ABDOMEN AND PELVIS CT WITH IV AND ORAL CONTRAST CT DOSE: 1340.87 mGy.cm HISTORY: Acute right lower abdominal pain with history of endometrial carcinoma. MALIGNANT NEOPLASM OF ENDOMETRIUM TECHNIQUE: Multiaxial CT images of the abdomen and pelvis were performed following the use of intravenous and oral contrast. A dose lowering technique was utilized adhering to the principles of ALARA. COMPARISON STUDY: CT abdomen and pelvis 02/10/2013, MRI lumbar spine 10/02/2016. FINDINGS: Subsegmental bibasilar opacities suggest atelectasis. No pneumatosis or pneumoperitoneum. Imaged inferior cardiac chambers are unremarkable. Prior cholecystectomy. Fatty infiltration of the liver. Spleen, and adrenal glands are within normal limits. Mild generalized pancreatic atrophy. Innumerable low attenuating lesions of the bilateral kidneys suggests renal cysts. No renal calculi or obstructive uropathy. Ureters appear unremarkable. Scattered foci of nondependent air seen within the urinary bladder lumen. Additionally, there is mild wall thickening of the bladder. Prior hysterectomy. Moderate atherosclerosis of the aorta. No bulky adenopathy. No bowel obstruction or focal bowel wall thickening. Normal appendix. Soft tissues are unremarkable. Degenerative changes about the bilateral SI joints. Moderate severe multilevel facet arthrosis. Multilevel severe intervertebral disc space narrowing. No definite evidence of bony metastasis. IMPRESSION: 1. Mild circumferential wall thickening of the urinary bladder with scattered foci of intraluminal air is suspicious for cystitis with gas-forming organism. Partial distention with recent instrumentation could cause similar findings. Correlate with urinalysis. 2. Prior hysterectomy and cholecystectomy. 3. No bowel obstruction or focal bowel wall thickening. Normal appendix. 4. Innumerable bilateral renal cysts. Electronically signed by: Forrest Pitts M.D. 07/11/2017 5:29 PM Dictated Date/Time: 07/11/2017 5:20 PM
== END ==
LOC: C.CTS 16:35
PROVIDERS: ATTEND Obstetrics & Gynecology
DX: C54.1 Malignant neoplasm of endometrium (principal)

== ENCOUNTER 2017-07-13 15:54 | Inpatient (IN) | payer OTHER ==
[~2017-07-13] VITALS: Ht 157.5 cm; Wt 98.7 kg
[~2017-07-13 15:54] MED LIST changes: -ASPI81TA28 PO; -ASTN NAE; -CALC500C3 PO; -CETI10TA84 PO; -CYM20 PO; -DULO-24 PO; -EPP3/2 IM; -FLNIN; -INSDGIPEN SC; -INSU100I2 SQ; -LEVA45AE PO; -METO25TA3 PO; -NITR0.4S UT; -NRN600 PO; -PRD10 PO; -SALI0.6510; -SPACMIS7 PO; -TPRSR/25 PO
[2017-07-13] MEDS ORDERED: CALC500C3 PO (16:13)
[2017-07-13] MEDS ORDERED: INSU100I2 SQ (16:13)
[2017-07-13] MEDS ORDERED: CYM/30 PO (16:13)
[2017-07-13] MEDS ORDERED: ASPI81TA28 PO (16:17)
[2017-07-13] MEDS ORDERED: LEVALBUTEROL 1.25MG/3ML NEB INH STA (16:37)
--- NOTE | 2017-07-13 16:38 | EMERGENCY ROOM VISIT NOTE ---
History Report prepared by Cindy: [employer] Under the Supervision of: Dr. Marissa Becerra D.O. First contact with patient: 16:19 Chief Complaint: SHORTNESS OF BREATH Stated Complaint: SOB,DEHYDRATED,BRONCHITIS History of Present Illness The patient is a 76 year old female who presents to the Emergency Room with complaints of constant SOB beginning yesterday. The patient states that she has had bronchitis recently and was given Asmanex a few months ago. She notes that she took two doses INOCULATOR with no relief of her symptoms. She reports that she does not take any nebulizer treatments or wear oxygen at home. The patient states that she has been on doxycycline for the last three weeks, which she believes might be causing her symptoms. She also complains of weakness, nausea, chills, a green productive cough, and notes that she has not been able to eat/ drink and urinate very much within the last day. She reports that her urine is darker than usual and has a stronger odor. She denies blood in her urine, vomiting, diarrhea, and leg swelling. Per daughter, the patient was recently in the emergency room and might have picked up something while she was here. The patient states that she has a history of cancer, and has had a hysterectomy but denies any prior history of asthma, pneumonia, and COPD. She notes that her was recently ill and might have caught something from him. She reports that she smoked for 30 years but does not currently smoke cigarettes. The patient states that wearing oxygen makes her breathing easier, but is unsure if she needs a breathing treatment. Source of History: patient, family (daughter) Onset: yesterday Position: chest Quality: other (SOB) Timing: constant Associated Symptoms: + chills, + cough (green productive cough), + nausea, + urinary symptoms (urine is darker than usual and has a stronger odor), + weakness, No vomiting, No diarrhea Note: The patient states that she has not been able to eat/drink and urinate much within the last day. She denies any blood in her urine and leg swelling. Review of Systems See HPI for pertinent positives & negatives. A total of 10 systems reviewed and were otherwise negative. Past Medical & Surgical Medical Problems: (1) Bronchitis (2) Cancer (3) Diabetes (4) History of benign brain tumor (5) History of spinal stenosis (6) History of uterine cancer (7) Hypertension (8) Neuropathy Surgical Problems: (1) History of hysterectomy Family History Diabetes mellitus FH: cancer FH: heart disease FHx: gallbladder disease Hypertension Kidney disease Kidney stones Social History Smoking Status: Former Smoker Alcohol Use: none Drug Use: none Marital Status: Housing Status: lives with family Occupation Status: retired Current/Historical Medications Scheduled Aspirin (Aspirin Ec), 81 MG PO BID Azelastine Hcl (Astelin Nasal Spring), 2 SPRAYS RAJAT DAILY Cetirizine (Zyrtec), 10 MG PO QPM Duloxetine HCl (Duloxetine HCl), 20 MG PO QAM Duloxetine Hcl (Cymbalta), 40 MG PO QPM Gabapentin (Gabapentin), 600 MG PO QID Insulin Glargine (Lantus Solostar), 64 UNITS SC HS Insulin Lispro (Human) (Humalog Kwikpen), 1 DOSE SQ TIDM Metoprolol Succinate (Metoprolol Succinate ER), 25 MG PO DAILY Scheduled PRN Calcium Carbonate (Tums), 1,000 MG PO UD PRN for Acid Reflux Epinephrine (Epipen), 0.3 MG IM UD PRN for Allergic Reaction Nitroglycerin (Nitrostat), 0.4 MG UT UD PRN for Chest Pain Allergies Coded Allergies: Meperidine and Related (Unverified Allergy, Severe, almost "closed throat ", 11/10/14) Midodrine (Unverified Allergy, Severe, "almost closed throat", 11/10/14) Penicillins (Unverified Allergy, Severe, ANAPHYLAXIS, 11/10/14) Quinolones (Verified Allergy, Severe, TOLERATED LEVAQUIN IV - SEP 06, 11/10) CIPRO-THROAT CLOSED Sulfamethoxazole w/Trimethoprim (Verified Allergy, Severe, THROAT CLOSED, 05/14/15) Diphenoxylate (Verified Allergy, Intermediate, 11/10/14) Replaces DIPHENOXYLATE2 PINS & NEEDLES, DIFFICULTY BREATHING Glyburide (Verified Allergy, Intermediate, 11/10/14) GLUCOVANCE-PINS AND NEEDLES,DIFFICULTY BREATHING Metformin (Verified Allergy, Intermediate, 11/10/14) GLUCOVANCE-PINS & NEEDLES,DIFFICULTY BREATHING ALSO GLUCOPHAGE XR-EXTREME ABDOMINAL PAIN Nitrofurantoin (Verified Allergy, Intermediate, 11/10/14) RASH Oxycodone (Verified Allergy, Intermediate, 11/10/14) SEVERE RASH Paroxetine (Verified Allergy, Intermediate, 11/10/14) PINS & NEEDLES, DIFFICULTY BREATHING Ranitidine (Verified Allergy, Intermediate, 11/10/14) RASH Repaglinide (Verified Allergy, Intermediate, 11/10/14) PINS &NEEDLES, DIFFICULTY BREATHING Rosiglitazone (Verified Allergy, Intermediate, 11/10/14) PINS & NEEDLES, DIFFICULTY BREATHING Temazepam (Verified Allergy, Intermediate, 11/10/14) PINS & NEEDLES, DIFFICULTY BREATHING DENILSON Inhibitors (Unverified Allergy, Unknown, unknown to pt, 11/10/14) Atropine (Verified Allergy, Unknown, 11/10/14) H2 Antagonists (Unverified Allergy, Unknown, unknown to pt, 11/10/14) Iodinated Diagnostic Agents (Verified Allergy, Unknown, `, 05/14/15) Phenazopyridine (Verified Allergy, Unknown, 11/10/14) Carbamazepine (Verified Adverse Reaction, Severe, 11/10/14) TOO HARD ON DIGESTIVE TRACT-ALSO IN COMBO WITH DEPAKOTE ER CAUSED PLATELET COUNT TO DROP VERY LOW Valproate Derivatives (Verified Adverse Reaction, Severe, 11/10/14) COULDN'T WAKE UP-ALSO DEPAKOTE ER WITH TEGRETOL CAUSED PLATELET COUNT TO DROP VERY LOW Albuterol (Verified Adverse Reaction, Intermediate, 11/10/14) HEART PALPITATIONS Olanzapine (Verified Adverse Reaction, Intermediate, 11/10/14) COULDN'T WAKE UP, HALLUCINATIONS Rofecoxib (Verified Adverse Reaction, Intermediate, 11/10/14) RAISES BLOOD PRESSURE Diazepam (Verified Adverse Reaction, Mild, SEDATION LASTING TOO LONG, 11/10) COULDN'T WAKE UP Ibuprofen (Verified Adverse Reaction, Mild, 11/10/14) SICK STOMACH Lisinopril (Verified Adverse Reaction, Mild, 11/10/14) EXCESSIVE HUNGER Mirtazapine (Verified Adverse Reaction, Mild, 06/17/13) SEVERE DRY MOUTH Physical Exam Vital Signs Date Time Temp Pulse Resp B/P (MAP) Pulse Ox O2 Delivery O2 Flow Rate FiO2 07/13/17 18:30 78 23 95 Nasal Cannula 3.0 07/13/17 17:55 78 18 110/86 96 Room Air 07/13/17 16:36 79 07/13/17 16:36 95 Nasal Cannula 2.0 07/13/17 16:09 36.9 89 26 153/64 94 Room Air Physical Exam GENERAL: alert, ill appearing, well nourished, no distress, non-toxic EYE EXAM: normal conjunctiva, PERRL and EOM's grossly intact, right exotropia. OROPHARYNX: no exudate, no erythema, lips, buccal mucosa, and tongue normal and mucous membranes are moist NECK: supple, no nuchal rigidity, no adenopathy, non-tender LUNGS: Clear to auscultation. Normal chest wall mechanics, diminished breath sounds, no wheezes, rhonchi, and rales. HEART: no murmurs, S1 normal and S2 normal ABDOMEN: abdomen soft, normo-active bowel sounds, no masses, no rebound or guarding, RLQ pain (chronic). BACK: Back is symmetrical on inspection and there is no deformity, no midline tenderness, no CVA tenderness. SKIN: no rashes and no bruising UPPER EXTREMITIES: upper extremities are grossly normal. LOWER EXTREMITIES: Trace pedal edema. NEURO EXAM: Normal sensorium, cranial nerves II-XII grossly intact, normal speech, no gross weakness of arms, no gross weakness of legs. Medical Decision & Procedures ER Provider Diagnostic Interpretation: ABDOMEN AND PELVIS CT WITH IV AND ORAL CONTRAST from 07/11/2017 FINDINGS: Subsegmental bibasilar opacities suggest atelectasis. No pneumatosis or pneumoperitoneum. Imaged inferior cardiac chambers are unremarkable. Prior cholecystectomy. Fatty infiltration of the liver. Spleen, and adrenal glands are within normal limits. Mild generalized pancreatic atrophy. Innumerable low attenuating lesions of the bilateral kidneys suggests renal cysts. No renal calculi or obstructive uropathy. Ureters appear unremarkable. Scattered foci of nondependent air seen within the urinary bladder lumen. Additionally, there is mild wall thickening of the bladder. Prior hysterectomy. Moderate atherosclerosis of the aorta. No bulky adenopathy. No bowel obstruction or focal bowel wall thickening. Normal appendix. Soft tissues are unremarkable. Degenerative changes about the bilateral SI joints. Moderate severe multilevel facet arthrosis. Multilevel severe intervertebral disc space narrowing. No definite evidence of bony metastasis. IMPRESSION: 1. Mild circumferential wall thickening of the urinary bladder with scattered foci of intraluminal air is suspicious for cystitis with gas-forming organism. Partial distention with recent instrumentation could cause similar findings. Correlate with urinalysis. 2. Prior hysterectomy and cholecystectomy. 3. No bowel obstruction or focal bowel wall thickening. Normal appendix. 4. Innumerable bilateral renal cysts. Electronically signed by: Forrest Pitts M.D. 07/11/2017 5:29 PM Radiology results have been interpreted by the radiologist and reviewed by me. CHEST ONE VIEW PORTABLE FINDINGS: Atherosclerosis of the aortic arch. Cardiac silhouette normal in size. No focal opacity. No large effusion or pneumothorax. Degenerative changes of the thoracic spine. IMPRESSION: 1. No acute cardiopulmonary disease. Electronically signed by: Chi Blackwell M.D. 07/13/2017 5:03 PM Laboratory Results 07/13/17 16:30 Red Blood Count 5.21, Mean Corpuscular Volume 77.0, Mean Corpuscular Hemoglobin 25.1, Mean Corpuscular Hemoglobin Concent 32.7, Mean Platelet Volume 9.3, Neutrophils (%) (Auto) 70.1, Lymphocytes (%) (Auto) 19.6, Monocytes (%) (Auto) 6.6, Eosinophils (%) (Auto) 2.9, Basophils (%) (Auto) 0.5, Neutrophils # (Auto) 4.64, Lymphocytes # (Auto) 1.30, Monocytes # (Auto) 0.44, Eosinophils # (Auto) 0.19, Basophils # (Auto) 0.03 07/13/17 16:30 Test 07/13/17 16:30 07/13/17 17:50 White Blood Count 6.62 K/uL (4.8-10.8) Red Blood Count 5.21 M/uL (4.2-5.4) Hemoglobin 13.1 g/dL (12.0-16.0) Hematocrit 40.1 % (37-47) Mean Corpuscular Volume 77.0 fL (80-100) Mean Corpuscular Hemoglobin 25.1 pg (25-34) Mean Corpuscular Hemoglobin Concent 32.7 g/dl (32-36) Platelet Count 130 K/uL (130-400) Mean Platelet Volume 9.3 fL (7.4-10.4) Neutrophils (%) (Auto) 70.1 % Lymphocytes (%) (Auto) 19.6 % Monocytes (%) (Auto) 6.6 % Eosinophils (%) (Auto) 2.9 % Basophils (%) (Auto) 0.5 % Neutrophils # (Auto) 4.64 K/uL (1.4-6.5) Lymphocytes # (Auto) 1.30 K/uL (1.2-3.4) Monocytes # (Auto) 0.44 K/uL (0.11-0.59) Eosinophils # (Auto) 0.19 K/uL (0-0.5) Basophils # (Auto) 0.03 K/uL (0-0.2) RDW Standard Deviation 42.8 fL (36.4-46.3) RDW Coefficient of Variation 15.6 % (11.5-14.5) Immature Granulocyte % (Auto) 0.3 % Immature Granulocyte # (Auto) 0.02 K/uL (0.00-0.02) Prothrombin Time 11.8 SECONDS (9.0-12.0) Prothromb Time International Ratio 1.1 (0.9-1.1) D-Dimer 450 ug/L FEU (0-500) Anion Gap 5.0 mmol/L (3-11) Est Creatinine Clear Calc Drug Dose 37.4 ml/min Estimated GFR () 42.9 Estimated GFR (Non- 37.0 BUN/Creatinine Ratio 26.0 (10-20) Calcium Level 8.8 mg/dl (8.5-10.1) Phosphorus Level 3.7 mg/dl (2.5-4.9) Magnesium Level 1.9 mg/dl (1.8-2.4) Total Bilirubin 0.7 mg/dl (0.2-1) Aspartate Amino Transf (AST/SGOT) 98 U/L (15-37) Alanine Aminotransferase (ALT/SGPT) 97 U/L (12-78) Alkaline Phosphatase 65 U/L (45-117) Pro-B-Type Natriuretic Peptide 104 pg/ml (0-1800) Total Protein 8.1 gm/dl (6.4-8.2) Albumin 3.3 gm/dl (3.4-5.0) Globulin 4.8 gm/dl (2.5-4.0) Albumin/Globulin Ratio 0.7 (0.9-2) Beta-Hydroxybutyric Acid 1.33 mg/dL (0.2-2.81) Thyroid Stimulating Hormone (TSH) 1.480 uIu/ml (0.300-4.500) Urine Color DK YELLOW Urine Appearance CLEAR (CLEAR) Urine pH 5.0 (4.5-7.5) Urine Specific [place] 1.024 (1.000-1.030) Urine Protein NEG (NEG) Urine Glucose (UA) NEG (NEG) Urine Ketones NEG (NEG) Urine Occult Blood NEG (NEG) Urine Nitrite NEG (NEG) Urine Bilirubin NEG (NEG) Urine Urobilinogen NEG (NEG) Urine Leukocyte Esterase NEG (NEG) Laboratory results per my review. Medications Administered Medications (Trade) Dose Ordered Sig/Brittany Route Start Time Stop Time Status Last Admin Dose Admin Aspirin/Aluminum/ Magnesium/Ca Carb (Ascriptin Tab) 325 mg NOW STAT PO 07/13/17 18:07 07/13/17 18:08 DC 07/13/17 19:38 325 MG ECG Per My Interpretation Indication: SOB/dyspnea Rate (beats per minute): 77 Rhythm: sinus rhythm Findings: T-wave inversion (in lead 1 and AVL), no ectopy, other (Normal axis, normal intervals, flattened T waves inferiorly) Comparison ECG Date: 05/14/2015 Change: T wave inversion in AVL is seen in prior EKG. ED Course 1621: The patient was evaluated in room A3. A complete history and physical exam was performed. 1637: Levalbuterol 1.25mg INH 1646: I reviewed the patient's EMR and CT from 07/11/2017. 1650: I reevaluated and updated the patient. She is just starting her nebulizer treatment. I told her about her CT results from 07/11/2017. 1710: Zofran Inj 4mg IV 1800: I rechecked the patient. She is breathing better after receiving a breathing treatment and does not note any chest pain. 1807: Aspirin/Aluminum/Magnesium/Ca Carb 325mg PO 1816: Upon reevaluation, the patient is stable. I discussed the findings and the treatment plan with the patient. She expresses agreement and understanding. I spoke with Dr. Aguilar of the [facility]. The patient will be evaluated for further management. Medical Decision Differential diagnosis: Etiologies such as infections, reactive airway disease, pneumonia, pneumothorax , COPD, CHF, cardiac ischemia, pulmonary embolism, musculoskeletal, gastrointestinal, metabolic, hypo/hyperglycemia, electrolyte abnormalities, cardiac sources, intracerebral event, toxicologic, neurologic, as well as others were entertained. Patient well-appearing here despite complaints. Patient felt improved following nebulizer treatment. Patient subjectively felt the need for oxygen does not chronically wear this at home. Patient not overtly hypoxic at any time. No evidence of occult infectious etiology. Possible patient with component of COPD despite no prior diagnosis. Patient was a 30 year smoker prior. Patient does not use her rescue inhaler at home, does keep a controller inhaler. Patient had no fever, and no leukocytosis. Antibiotics were not empirically started. Patient with generalized weakness, no focal neural deficit. Vital signs were stable throughout. No acute ST elevation on patient' s EKG. T-wave inversions seen are also present previously. Patient was found to have an elevated troponin. D-dimer negative, have a low suspicion for PE. Patient does have risk factors for coronary artery disease, this could also be secondary to her mild renal dysfunction or her pulmonary pathology. Discussed with patient need for additional evaluation and treatment, discussed all results , she verbalized understanding and was in agreement. Case was discussed with the hospitalist. Medication Reconcilliation Current Medication List: was personally reviewed by me Blood Pressure Screening Patient's blood pressure: Normal blood pressure Blood pressure disposition: Did not require urgent referral Consults Time Called: 1806 Consulting Physician: TANYA Tinsley Returned Call: [phone] I reviewed the patient's case with TANYA Tinsley. The patient will evaluate the patient for further management. Impression Primary Impression: Dyspnea Additional Impressions: Generalized weakness Elevated troponin Hyperglycemia Scribe Attestation The scribe's documentation has been prepared under my direction and personally reviewed by me in its entirety. I confirm that the note above accurately reflects all work, treatment, procedures, and medical decision making performed by me. Departure Information Dispostion Being Evaluated By Hospitalist Referrals No Doctor, Assigned (PCP) Patient Instructions My [facility] Problem Qualifiers Primary Impression: Dyspnea Dyspnea type: shortness of breath Qualified Codes: R06.02 - Shortness of breath
[2017-07-13 16:50] LABS: BASO % 0.5 %; BASO ABS # 0.03 K/uL (0-0.2); EOS % 2.9 %; EOS ABS # 0.19 K/uL (0-0.5); HEMATOCRIT 40.1 % (37-47); HEMOGLOBIN 13.1 g/dL (12.0-16.0); IG# 0.02 K/uL (0.00-0.02); LYMPH % 19.6 %; MEAN CORPUSCULAR HEMOGLOBIN 25.1 pg (25-34); MEAN CORPUSCULAR HGB CONC 32.7 g/dl (32-36); MEAN PLATELET VOLUME 9.3 fL (7.4-10.4); MONO % 6.6 %; MONO ABS # 0.44 K/uL (0.11-0.59); NEUT % 70.1 %; NEUT ABS # 4.64 K/uL (1.4-6.5); PLATELET COUNT 130 K/uL (130-400); RED CELL DISTRIBUTION WIDTH CV 15.6 % (11.5-14.5); RED CELL DISTRIBUTION WIDTH SD 42.8 fL (36.4-46.3); WHITE BLOOD COUNT 6.62 K/uL (4.8-10.8)
[2017-07-13 17:01] LABS: ALBUMIN 3.3 gm/dl (3.4-5.0); CALCIUM 8.8 mg/dl (8.5-10.1); CREATININE 1.38 mg/dl (0.60-1.20); POTASSIUM 3.8 mmol/L (3.5-5.1)
[2017-07-13 17:03] LABS: INR 1.1 (0.9-1.1); PHOSPHORUS 3.7 mg/dl (2.5-4.9); TOTAL PROTEIN 8.1 gm/dl (6.4-8.2)
--- NOTE | 2017-07-13 17:05 | DIAGNOSTIC IMAGING REPORT ---
CHEST ONE VIEW PORTABLE CLINICAL HISTORY: 76 years-old Female presenting with sob. TECHNIQUE: Portable upright AP view of the chest was obtained. COMPARISON: 06/22/2017. FINDINGS: Atherosclerosis of the aortic arch. Cardiac silhouette normal in size. No focal opacity. No large effusion or pneumothorax. Degenerative changes of the thoracic spine. IMPRESSION: 1. No acute cardiopulmonary disease. Electronically signed by: Chi Blackwell M.D. 07/13/2017 5:03 PM Dictated Date/Time: 07/13/2017 5:03 PM
[2017-07-13] MEDS ORDERED: ONDANSETRON INJ 2 MG/ML 2 ML VIAL IV STA (17:10)
[2017-07-13] MEDS ORDERED: ASPIRIN/ALUM/MAGNES/CAL CARB 325 MG TAB PO STA (18:07)
[2017-07-13 18:30] VITALS: PULSE 78; O2SAT 95
[2017-07-13] MEDS ORDERED: METO25TA3 PO (18:31)
[2017-07-13] MEDS ORDERED: NITR0.4S UT (18:31)
[2017-07-13] MEDS ORDERED: EPP3/2 IM (18:31)
[2017-07-13] MEDS ORDERED: INSDGI SC (18:34)
[2017-07-13] MEDS ORDERED: CETI10TA84 PO (18:34)
[2017-07-13] MEDS ORDERED: ASTN NAE (18:34)
[2017-07-13] MEDS ORDERED: NRN600 PO (18:50)
[2017-07-13] MEDS ORDERED: DULO-24 PO ×2 (18:57)
[2017-07-13] MEDS ORDERED: TPRSR/25 PO (18:57)
[2017-07-13] MEDS ORDERED: CYM20 PO (18:58)
[2017-07-13] MEDS ORDERED: INSDGIPEN SC (18:59)
[2017-07-13] MEDS ORDERED: ALUMINUM/MAGNESIUM/SIMETH (MAALOX MAX) 30 ML UDC PO PRN (19:00)
[2017-07-13] MEDS ORDERED: MAGNESIUM HYDROXIDE SUSP 30 ML UDC PO PRN (19:00)
[2017-07-13] MEDS ORDERED: ONDANSETRON INJ 2 MG/ML 2 ML VIAL IV PRN (19:00)
[2017-07-13] MEDS ORDERED: POLYETHYLENE (MIRALAX) 17 GM PACK PO PRN (19:00)
[2017-07-13] MEDS ORDERED: CALCIUM CARBONATE 500 MG CHEWABLE PO PRN (19:00)
[2017-07-13] MEDS ORDERED: ACETAMINOPHEN 325 MG TAB PO PRN (19:00)
[2017-07-13] MEDS ORDERED: MoRPHine SULFATE 2 MG/ML CARP IV PRN (19:00)
--- NOTE | 2017-07-13 19:03 | History and Physical ---
History & Physical Date & Time of Service: Jul 13, 2017 at 19:03 Chief Complaint: Sob,Dehydrated,Bronchitis Primary Care Physician: Darwin Lugo III, CRNP History of Present Illness Source: patient, family, clinic records, hospital records Patient is a pleasant 76 y/o female, with PMHx of T2DM w/ neuropathy, HTN, depression, and GERD, who presented to the ED because of persistent SOB. Patient recently finished a 10 day course of Doxycycline for bronchitis- she notes her cough (with green sputum production) has significantly improved since abx treatment. However, she continues to remain SOB. She denies any h/o asthma or COPD. She was a former smoker. Patient is in the process of outpatient pulmonary workup, but is delayed due to recent bronchitis. Yesterday, she was chasing her dog around the yard and because extremely SOB, extremely fatigued, and nauseous. She denies any cardiac history. She does follow w/ Dr. Hodge. In the past she was having episodes of chest pain, thought to be due to bronchospasms. +periodic wheezing. Patient denies any fever, chills, sweats, lightheadedness, dizziness, vision changes, palpitations, edema, abdominal pain , vomiting, diarrhea, urinary symptoms, melena, numbness/tingling, weakness, muscle/joint pain, anxiety/depression, active bleeding, or new skin discoloration/changes. Past Medical/Surgical History Medical Problems: T2DM w/ neuropathy HTN depression GERD History of benign brain tumor History of spinal stenosis History of uterine cancer Surgical Problems: History of hysterectomy bilateral mastectomy Family History Diabetes mellitus FH: cancer FH: heart disease FHx: gallbladder disease Hypertension Kidney disease Kidney stones Social History Smoking Status: Former Smoker Drug Use: none Marital Status: Housing status: lives with family Occupational Status: retired Immunizations History of Influenza Vaccine: Yes History of Tetanus Vaccine?: Yes History of Pneumococcal: Yes History of Hepatitis B Vaccine: No Allergies Coded Allergies: Meperidine and Related (Unverified Allergy, Severe, almost "closed throat ", 11/10/14) Midodrine (Unverified Allergy, Severe, "almost closed throat", 11/10/14) Penicillins (Unverified Allergy, Severe, ANAPHYLAXIS, 11/10/14) Quinolones (Verified Allergy, Severe, TOLERATED LEVAQUIN IV - SEP 06, 11/10) CIPRO-THROAT CLOSED Sulfamethoxazole w/Trimethoprim (Verified Allergy, Severe, THROAT CLOSED, 05/14/15) Diphenoxylate (Verified Allergy, Intermediate, 11/10/14) Replaces DIPHENOXYLATE2 PINS & NEEDLES, DIFFICULTY BREATHING Glyburide (Verified Allergy, Intermediate, 11/10/14) GLUCOVANCE-PINS AND NEEDLES,DIFFICULTY BREATHING Metformin (Verified Allergy, Intermediate, 11/10/14) GLUCOVANCE-PINS & NEEDLES,DIFFICULTY BREATHING ALSO GLUCOPHAGE XR-EXTREME ABDOMINAL PAIN Nitrofurantoin (Verified Allergy, Intermediate, 11/10/14) RASH Oxycodone (Verified Allergy, Intermediate, 11/10/14) SEVERE RASH Paroxetine (Verified Allergy, Intermediate, 11/10/14) PINS & NEEDLES, DIFFICULTY BREATHING Ranitidine (Verified Allergy, Intermediate, 11/10/14) RASH Repaglinide (Verified Allergy, Intermediate, 11/10/14) PINS &NEEDLES, DIFFICULTY BREATHING Rosiglitazone (Verified Allergy, Intermediate, 11/10/14) PINS & NEEDLES, DIFFICULTY BREATHING Temazepam (Verified Allergy, Intermediate, 11/10/14) PINS & NEEDLES, DIFFICULTY BREATHING DENILSON Inhibitors (Unverified Allergy, Unknown, unknown to pt, 11/10/14) Atropine (Verified Allergy, Unknown, 11/10/14) H2 Antagonists (Unverified Allergy, Unknown, unknown to pt, 11/10/14) Iodinated Diagnostic Agents (Verified Allergy, Unknown, `, 05/14/15) Phenazopyridine (Verified Allergy, Unknown, 11/10/14) Carbamazepine (Verified Adverse Reaction, Severe, 11/10/14) TOO HARD ON DIGESTIVE TRACT-ALSO IN COMBO WITH DEPAKOTE ER CAUSED PLATELET COUNT TO DROP VERY LOW Valproate Derivatives (Verified Adverse Reaction, Severe, 11/10/14) COULDN'T WAKE UP-ALSO DEPAKOTE ER WITH TEGRETOL CAUSED PLATELET COUNT TO DROP VERY LOW Albuterol (Verified Adverse Reaction, Intermediate, 11/10/14) HEART PALPITATIONS Olanzapine (Verified Adverse Reaction, Intermediate, 11/10/14) COULDN'T WAKE UP, HALLUCINATIONS Rofecoxib (Verified Adverse Reaction, Intermediate, 11/10/14) RAISES BLOOD PRESSURE Diazepam (Verified Adverse Reaction, Mild, SEDATION LASTING TOO LONG, 11/10) COULDN'T WAKE UP Ibuprofen (Verified Adverse Reaction, Mild, 11/10/14) SICK STOMACH Lisinopril (Verified Adverse Reaction, Mild, 11/10/14) EXCESSIVE HUNGER Mirtazapine (Verified Adverse Reaction, Mild, 06/17/13) SEVERE DRY MOUTH Home Medications Scheduled Aspirin (Aspirin Ec), 81 MG PO BID Azelastine Hcl (Astelin Nasal [place]), 2 SPRAYS RAJAT DAILY Cetirizine (Zyrtec), 10 MG PO QPM Duloxetine HCl (Duloxetine HCl), 20 MG PO QAM Duloxetine Hcl (Cymbalta), 40 MG PO QPM Gabapentin (Gabapentin), 600 MG PO QID Insulin Glargine (Lantus Solostar), 64 UNITS SC HS Insulin Lispro (Human) (Humalog Kwikpen), 1 DOSE SQ TIDM Metoprolol Succinate (Metoprolol Succinate ER), 25 MG PO DAILY Scheduled PRN Calcium Carbonate (Tums), 1,000 MG PO UD PRN for Acid Reflux Epinephrine (Epipen), 0.3 MG IM UD PRN for Allergic Reaction Nitroglycerin (Nitrostat), 0.4 MG UT UD PRN for Chest Pain Physical Exam Vital Signs Date Time Temp Pulse Resp B/P (MAP) Pulse Ox O2 Delivery O2 Flow Rate FiO2 07/13/17 18:30 78 23 95 Nasal Cannula 3.0 07/13/17 17:55 78 18 110/86 96 Room Air 07/13/17 16:36 79 07/13/17 16:36 95 Nasal Cannula 2.0 07/13/17 16:09 36.9 89 26 153/64 94 Room Air General Appearance: no apparent distress, + obese, + pertinent finding (O2 NC) Head: normocephalic, atraumatic Eyes: normal inspection, PERRL ENT: hearing grossly normal Neck: supple Respiratory/Chest: lungs clear, no respiratory distress, no accessory muscle use, + decreased breath sounds (throughout ) Cardiovascular: regular rate, rhythm Abdomen/GI: normal bowel sounds, non tender, soft Back: normal inspection Extremities/Musculoskelatal: no calf tenderness, no pedal edema Neurologic/Psych: alert, normal mood/affect, oriented x 3 Skin: normal color, warm/dry, no rash Diagnostics Laboratory Results Results Past 24 Hours Test 07/13/17 16:30 07/13/17 17:50 Range/Units White Blood Count 6.62 4.8-10.8 K/uL Red Blood Count 5.21 4.2-5.4 M/uL Hemoglobin 13.1 12.0-16.0 g/dL Hematocrit 40.1 37-47 % Mean Corpuscular Volume 77.0 80-100 fL Mean Corpuscular Hemoglobin 25.1 25-34 pg Mean Corpuscular Hemoglobin Concent 32.7 32-36 g/dl Platelet Count 130 130-400 K/uL Mean Platelet Volume 9.3 7.4-10.4 fL Neutrophils (%) (Auto) 70.1 % Lymphocytes (%) (Auto) 19.6 % Monocytes (%) (Auto) 6.6 % Eosinophils (%) (Auto) 2.9 % Basophils (%) (Auto) 0.5 % Neutrophils # (Auto) 4.64 1.4-6.5 K/uL Lymphocytes # (Auto) 1.30 1.2-3.4 K/uL Monocytes # (Auto) 0.44 0.11-0.59 K/uL Eosinophils # (Auto) 0.19 0-0.5 K/uL Basophils # (Auto) 0.03 0-0.2 K/uL RDW Standard Deviation 42.8 36.4-46.3 fL RDW Coefficient of Variation 15.6 11.5-14.5 % Immature Granulocyte % (Auto) 0.3 % Immature Granulocyte # (Auto) 0.02 0.00-0.02 K/uL Prothrombin Time 11.8 9.0-12.0 SECONDS Prothromb Time International Ratio 1.1 0.9-1.1 D-Dimer 450 0-500 ug/L FEU Sodium Level 136 136-145 mmol/L Potassium Level 3.8 3.5-5.1 mmol/L Chloride Level 102 98-107 mmol/L Carbon Dioxide Level 29 21-32 mmol/L Anion Gap 5.0 3-11 mmol/L Blood Urea Nitrogen 36 7-18 mg/dl Creatinine 1.38 0.60-1.20 mg/dl Est Creatinine Clear Calc Drug Dose 37.4 ml/min Estimated GFR () 42.9 Estimated GFR (Non- 37.0 BUN/Creatinine Ratio 26.0 10-20 Random Glucose 309 70-99 mg/dl Calcium Level 8.8 8.5-10.1 mg/dl Phosphorus Level 3.7 2.5-4.9 mg/dl Magnesium Level 1.9 1.8-2.4 mg/dl Total Bilirubin 0.7 0.2-1 mg/dl Aspartate Amino Transf (AST/SGOT) 98 15-37 U/L Alanine Aminotransferase (ALT/SGPT) 97 12-78 U/L Alkaline Phosphatase 65 45-117 U/L Troponin I 0.104 0-0.045 ng/ml Pro-B-Type Natriuretic Peptide 104 0-1800 pg/ml Total Protein 8.1 6.4-8.2 gm/dl Albumin 3.3 3.4-5.0 gm/dl Globulin 4.8 2.5-4.0 gm/dl Albumin/Globulin Ratio 0.7 0.9-2 Beta-Hydroxybutyric Acid 1.33 0.2-2.81 mg/dL Thyroid Stimulating Hormone (TSH) 1.480 0.300-4.500 uIu/ml Urine Color DK YELLOW Urine Appearance CLEAR CLEAR Urine pH 5.0 4.5-7.5 Urine Specific [place] 1.024 1.000-1.030 Urine Protein NEG NEG Urine Glucose (UA) NEG NEG Urine Ketones NEG NEG Urine Occult Blood NEG NEG Urine Nitrite NEG NEG Urine Bilirubin NEG NEG Urine Urobilinogen NEG NEG Urine Leukocyte Esterase NEG NEG Diagnostic Radiology CHEST ONE VIEW PORTABLE CLINICAL HISTORY: 76 years-old Female presenting with sob. TECHNIQUE: Portable upright AP view of the chest was obtained. COMPARISON: 06/22/2017. FINDINGS: Atherosclerosis of the aortic arch. Cardiac silhouette normal in size. No focal opacity. No large effusion or pneumothorax. Degenerative changes of the thoracic spine. IMPRESSION: 1. No acute cardiopulmonary disease. Electronically signed by: Chi Blackwell M.D. 07/13/2017 5:03 PM Dictated Date/Time: 07/13/2017 5:03 PM The status of this report is Signed. Draft = Not yet reviewed or approved by Radiologist. Signed = Reviewed and approved by Radiologist. EKG HILARIO ZAMUDIO ID:[id number] 13-JUL-2017 16:45:34 [facility] Normal sinus rhythm Nonspecific T wave abnormality Abnormal ECG When compared with ECG of 10-APR-2016 14:06, Nonspecific T wave abnormality now evident in Inferior leads 25mm/s 10mm/mV 150Hz 8.0 SP2 12SL 241 CHELE: 13 Referred by: Unconfirmed Vent. rate 77 BPM NJ interval 130 ms QRS duration 80 ms QT/QTc 398/450 ms P-R-T axes 67 62 127 1940 (76 yr) Female 1lb Room: Loc:15 Vest Baster:Riana Rodriguez ind: Impression Assessment and Plan Patient is a pleasant 76 y/o female, with PMHx of T2DM w/ neuropathy, HTN, depression, and GERD, who presented to the ED because of persistent SOB. Elevated troponin- follows w/ Dr. Hodge: - Admit to tele for cardiac monitoring - Trend cardiac enzymes - EKG QAM and PRN for chest pain/SOB - Obtain ECHO - Check lipid panel - Continue ASA and Metoprolol ?Underlying COPD w/ exacerbation: - IV Solu Medrol 60 mg TID - DuoNebs QID and PRN for SOB/wheezing - Sputum culture pending - Just completed course of abx- will not start additional abx- continue to monitor - CXR w/out acute cardiopulmonary process DEB- had CT w/ contrast 2 days ago: - IV NSS @ 100 ml/hr - Follow PRP T2DM w/ hyperglycemia, neuropathy: - Continue Lantus 64 u SQ HS - BSG ACHS and ISS - Check hgbA1c HTN: Continue Metoprolol 25 mg daily Depression: Continue Cymbalta 20 mg QAM and 40 mg HS GERD: Tums PRN DVT prophylaxis: Heparin SQ TID Code status: LEVEL I, FULL Dispo: From home, lives w/ and son- PT/OT and CM consulted i personally examined pt and verified all chiu points w T Murar[place] PAC feeling better now - but very easily sob recently - abruptly worsened yesterday vitals noted nad breathing unlabored no pallor or icterus sob/minaya - ?cardiac vs pulmonary w trop being demand ischemia --- supportive care , trend enzymes, echo. if cardiac w/u fairly negative then w/u further for pulmonary cause Resuscitation Status LEVEL I, FULL VTE Prophylaxis Will order VTE Prophylaxis: Yes
[2017-07-13] MEDS ORDERED: GLUCAGON FOR INJ 1 MG VIAL SQ PRN (19:45)
[2017-07-13] MEDS ORDERED: DEXTROSE 50% 50 ML SYR IV PRN (19:45)
[2017-07-13] MEDS ORDERED: IV FLUIDS COMPLETED PRN (19:45)
[2017-07-13] MEDS ORDERED: GLUCOSE 10 TABS/TUBE PO PRN (19:45)
[2017-07-13] MEDS ORDERED: GLUCOSE 40% GEL 15 GM TUBE PO PRN (19:45)
[2017-07-13 20:15] VITALS: BP 146/80; PULSE 80; TEMP 36.7; O2SAT 97; Ht 157.5 cm; Wt 98.7 kg
[2017-07-13 20:46] VITALS: PULSE 86; O2SAT 94
[2017-07-13] MEDS: ALBUT/IPRATROP 3MG/0.5MG NEB 3 ML VIAL INH SCH (20:46)
[2017-07-13] MEDS ORDERED: INSULIN ASPART 100 UNITS/ML 3 ML PEN SC SCH (21:00)
[2017-07-13] MEDS ORDERED: INSULIN GLARGINE SOLOSTAR 100 UNITS/ML 3 ML PEN SC SCH (21:00)
[2017-07-13] MEDS: ASPIRIN 81 MG ECTAB PO SCH (21:00)
[2017-07-13] MEDS: SODIUM CHLORIDE 0.9% 1000ML 1,000 ML IV SCH (21:28)
[2017-07-13] MEDS: METHYLPREDNISOLONE IV 60 MG in SYRINGE 0 ML IV SCH (21:28)
[2017-07-13] MEDS: DULOXETINE HCL 20 MG CAP PO SCH (21:29)
[2017-07-13] MEDS: GABAPENTIN 600 MG TAB PO SCH (21:29)
[2017-07-13] MEDS: CETIRIZINE HCL 10 MG TAB PO SCH (21:30)
[2017-07-13] MEDS: HEPARIN SOD 5000 UNIT/0.5 ML CARP SQ SCH ×2 (21:34→21:48)
[2017-07-13 23:26] VITALS: BP 152/76; PULSE 89; TEMP 36.9; O2SAT 95
[2017-07-14] VITALS (15 sets, daily range): BP systolic 124–152; BP diastolic 66–81; PULSE 70–90; TEMP 36.5–37; O2SAT 94–98
[2017-07-14 01:13] LABS: CKMB 1.4 ng/ml (0.5-3.6)
[2017-07-14] MEDS: NITROGLYCERIN 0.4 MG SL PER TAB CHARGE SL PRN ×2 (03:33→03:59)
[2017-07-14] MEDS ORDERED: INSULIN HUMAN REGULAR SC ONE (04:00)
[2017-07-14] MEDS ORDERED: INSULIN ASPART 100 UNITS/ML 3 ML PEN SC STA (04:05)
[2017-07-14] MEDS ORDERED: PHARMACY GLYCEMIC MGMT CONSULT PRN (04:07)
[2017-07-14] MEDS: HEPARIN SOD 5000 UNIT/0.5 ML CARP SQ SCH ×3 (06:07→21:34)
[2017-07-14] MEDS: ALBUT/IPRATROP 3MG/0.5MG NEB 3 ML VIAL INH SCH ×4 (07:19→19:43)
[2017-07-14] MEDS ORDERED: INSULIN HUMAN REGULAR PER UNIT 8 UNITS in SYRINGE 7.92 ML IV ONE (07:45)
[2017-07-14] MEDS: SODIUM CHLORIDE 0.9% 1000ML 1,000 ML IV SCH (07:54)
[2017-07-14 07:55] LABS: HEMOGLOBIN A1C 7.6 % (4.5-5.6)
[2017-07-14] MEDS: METHYLPREDNISOLONE IV 60 MG in SYRINGE 0 ML IV SCH (07:57)
[2017-07-14] MEDS: AZELASTINE HCL 0.1 % NASAL SPRAY SCH (07:57)
[2017-07-14] MEDS: ASPIRIN 81 MG ECTAB PO SCH ×2 (07:58→21:32)
[2017-07-14] MEDS: METOPROLOL SUCC 25MG EXT REL TAB PO SCH (07:59)
[2017-07-14] MEDS: GABAPENTIN 600 MG TAB PO SCH ×4 (07:59→21:32)
[2017-07-14] MEDS: DULOXETINE HCL 20 MG CAP PO SCH ×2 (08:00→21:32)
[2017-07-14] MEDS: INSULIN ASPART 100 UNITS/ML 3 ML PEN SC SCH ×4 (08:06→21:00)
[2017-07-14 08:21] LABS: BLOOD UREA NITROGEN 25 mg/dl (7-18); CARBON DIOXIDE 22 mmol/L (21-32); CHOLESTEROL 111 mg/dl (0-200); CKMB 1.4 ng/ml (0.5-3.6); CREATININE 0.99 mg/dl (0.60-1.20); GLUCOSE 260 mg/dl (70-99); LDL CHOLESTEROL CALCULATED 59 mg/dl; POTASSIUM 3.8 mmol/L (3.5-5.1); SODIUM 140 mmol/L (136-145)
[2017-07-14 08:28] LABS: CALCIUM 7.1 mg/dl (8.5-10.1)
[2017-07-14] MEDS ORDERED: INSULIN GLARGINE SOLOSTAR 100 UNITS/ML 3 ML PEN SC SCH (09:00)
[2017-07-14] MEDS ORDERED: INSULIN HUMAN REGULAR IV BOLUS 4 UNIT in SYRINGE 0 ML IV ONE (12:30)
[2017-07-14] MEDS: INSULIN REGULAR 250 UNITS in SODIUM CHLORIDE 0.9% 250ML 250 ML IV SCH (12:57)
--- NOTE | 2017-07-14 15:26 | ECHOCARDIOGRAM REPORT ---
*NOTICE TO RECEIVING DEMOCRAT AGENCY This information is strictly Confidential and protected under [place] law. [place] law prohibits you from making any further disclosure of this information unless further disclosure is expressly permitted by the written consent of the person to whom it pertains or is authorized by law. A general authorization for the release of medical or other information is not sufficient for this purpose. Hospital accepts no responsibility if the information is made available to any other person, INCLUDING THE PATIENT. Interpretation Summary * Name: HILARIO ZAMUDIO Study Date: 07/14/2017 06:40 AM BP: 152/76 mmHg * Patient Location: .2T\S\S229\S\1 HR: 89 * : 1940 (M/d/yyyy) Gender: Female Height: 62 in * Age: 76 yrs Ethnicity: [place] Weight: 214 lb * Ordering Physician: Marcia Camilo * Performed By: Jailyn Thacker RDCS * * Reason For Study: CHEST PAIN * BSA: 2.0 m2 * -- Conclusions -- * 1. Normal LV size. Mild concentric LVH.. * 2. Normal LV systolic function. LVEF 60-65 %. No regional wall motion abnormalities. * 3. Normal RV size and function. * 4. No significant valvular pathology. * 5. Grade 1 diastolic dysfunction. * 6. Compared with prior study on 05/14/2015: No significant change Procedure Details * A complete two-dimensional transthoracic echocardiogram was performed (2D, M-mode, Doppler and color flow Doppler). Left Ventricle * The left ventricle is grossly normal size. * There is mild concentric left ventricular hypertrophy. * Ejection Fraction = 60-65%. * No regional wall motion abnormalities noted. Right Ventricle * The right ventricle is grossly normal size. * The right ventricular systolic function is normal as assessed by tricuspid annular plane systolic excursion (TAPSE) (normal >1.5 cm). Atria * The left atrial size is normal. * Right atrial size is normal. * No ASD detected; PFO is not assessed. Mitral Valve * The mitral valve is grossly normal. * There is no mitral valve stenosis. * Significant mitral regurgitation is absent. Tricuspid Valve * There is trace tricuspid regurgitation. Aortic Valve * No hemodynamically significant valvular aortic stenosis. * There is no significant aortic regurgitation. Pulmonic Valve * The pulmonary valve is inadequately visualized, but the Doppler data is adequate for interpretation. * Pulmonic stenosis is absent. * There is no significant pulmonary regurgitation. Great Vessels * The aortic root and proximal ascending aorta are normal sized. Left Ventricular Diastolic Function * Grade I diastolic dysfunction, (abnormal relaxation pattern). MMode 2D Measurements and Calculations IVSd 1.6 cm IVSs 1.9 cm LVIDd 3.5 cm LVIDs 2.5 cm LVPWd 1.0 cm LVPWs 1.9 cm IVS/LVPW 1.5 FS 28.3 % EDV(Teich) 52.2 ml ESV(Teich) 23.1 ml EF(Teich) 55.7 % EDV(cubed) 44.3 ml ESV(cubed) 16.3 ml EF(cubed) 63.2 % % IVS thick 19.2 % % LVPW thick 80.4 % LV mass(C)d 162.4 grams LV mass(C)dI 82.6 grams/m\S\2 LV mass(C)s 200.6 grams LV mass(C)sI 102.0 grams/m\S\2 SV(Teich) 29.1 ml SI(Teich) 14.8 ml/m\S\2 SV(cubed) 28.0 ml SI(cubed) 14.2 ml/m\S\2 ACS 1.2 cm LA dimension 2.9 cm asc Aorta Diam 2.9 cm LVOT diam 1.7 cm LVOT area 2.3 cm\S\2 LVAd ap4 28.1 cm\S\2 LVLd ap4 7.6 cm EDV(MOD-sp4) 81.1 ml EDV(sp4-el) 88.2 ml LVAs ap4 16.4 cm\S\2 LVLs ap4 6.3 cm ESV(MOD-sp4) 34.5 ml ESV(sp4-el) 36.2 ml EF(MOD-sp4) 57.5 % EF(sp4-el) 59.0 % LVAd ap2 28.3 cm\S\2 LVLd ap2 7.9 cm EDV(MOD-sp2) 82.2 ml EDV(sp2-el) 85.8 ml LVAs ap2 17.4 cm\S\2 LVLs ap2 7.6 cm ESV(MOD-sp2) 33.7 ml ESV(sp2-el) 34.0 ml EF(MOD-sp2) 59.0 % EF(sp2-el) 60.4 % LVLd %diff 3.7 % EDV(MOD-bp) 81.2 ml LVLs %diff 16.5 % ESV(MOD-bp) 36.6 ml EF(MOD-bp) 54.8 % SV(MOD-sp4) 46.7 ml SI(MOD-sp4) 23.7 ml/m\S\2 SV(MOD-sp2) 48.5 ml SI(MOD-sp2) 24.6 ml/m\S\2 SV(MOD-bp) 44.5 ml SI(MOD-bp) 22.6 ml/m\S\2 SV(sp4-el) 52.0 ml SI(sp4-el) 26.4 ml/m\S\2 SV(sp2-el) 51.8 ml SI(sp2-el) 26.3 ml/m\S\2 Doppler Measurements and Calculations MV E max wei 69.0 cm/sec MV A max wei 90.6 cm/sec MV E/A 0.76 MV dec time 0.25 sec Ao V2 max 147.5 cm/sec Ao max PG 8.7 mmHg Ao max PG (full) 3.9 mmHg RUPESH(V,A) 1.7 cm\S\2 RUPESH(V,D) 1.7 cm\S\2 LV V1 max PG 4.8 mmHg LV V1 max 109.3 cm/sec PA V2 max 65.2 cm/sec PA max PG 1.7 mmHg TR max wei 250.2 cm/sec
--- NOTE | 2017-07-14 15:55 | Pharmacy Progress Note ---
Glycemic Control Intl Consult Date of Service Jul 14, 2017. Scope Glycemic Pharmacist consulted by Dr Leos on 07/14/17 for glycemic control and to write orders per [facility] ED inpatient glycemic control protocol Objective Weight (Kilograms): 102.400 Accuchecks BSG (last 24hrs): Test 07/13/17 16:30 07/13/17 20:27 07/14/17 03:40 07/14/17 07:06 Random Glucose 309 mg/dl (70-99) Bedside Glucose 206 mg/dl (70-90) 314 mg/dl (70-90) 320 mg/dl (70-90) Test 07/14/17 07:12 07/14/17 11:22 07/14/17 13:08 07/14/17 14:02 Random Glucose 260 mg/dl (70-99) Bedside Glucose 317 mg/dl (70-90) 351 mg/dl (70-90) 331 mg/dl (70-90) Laboratory Data (last 24hrs) Test 07/13/17 16:30 07/14/17 07:12 Anion Gap 5.0 mmol/L 8.0 mmol/L BUN/Creatinine Ratio 26.0 25.1 Blood Urea Nitrogen 36 mg/dl 25 mg/dl Creatinine 1.38 mg/dl 0.99 mg/dl Potassium Level 3.8 mmol/L 3.8 mmol/L Sodium Level 136 mmol/L 140 mmol/L White Blood Count 6.62 K/uL Red Blood Count 5.21 M/uL Hemoglobin 13.1 g/dL Hematocrit 40.1 % Mean Corpuscular Volume 77.0 fL Mean Corpuscular Hemoglobin 25.1 pg Mean Corpuscular Hemoglobin Concent 32.7 g/dl Platelet Count 130 K/uL Mean Platelet Volume 9.3 fL Neutrophils (%) (Auto) 70.1 % Lymphocytes (%) (Auto) 19.6 % Monocytes (%) (Auto) 6.6 % Eosinophils (%) (Auto) 2.9 % Basophils (%) (Auto) 0.5 % Neutrophils # (Auto) 4.64 K/uL Lymphocytes # (Auto) 1.30 K/uL Monocytes # (Auto) 0.44 K/uL Eosinophils # (Auto) 0.19 K/uL Basophils # (Auto) 0.03 K/uL Hemoglobin A1c 7.6 % HbA1c Test 07/14/17 07:12 Hemoglobin A1c 7.6 % (4.5-5.6) H Recent Pertinent Medications Outpatient Anti-diabetic Regimen: * Lantus 64 units SQ qHS + Novolog SS Risk Factors for Insulin Resistance: * Steroids: Solu-medrol 60 mg IV q8 * Diet: T2DM, AHA Assessment & Plan ASSESSMENT: * 76 yr old T2DM female admitted with SOB, ? COPD exacerbation and elevated troponin. Patient started on high dose IV steroids. * Will initiate IV insulin infusion for severe steroid induced hyperglycemia despite IV regular insulin bolus and aggressive SQ insulin doses. * Continue basal insulin also to aid in transition off insulin infusion. PLAN FOR INPATIENT GLYCEMIC CONTROL: * Starting IV insulin infusion per severe stress protocol * Goal Range 110 - 150 mg/dl * Basal insulin - overlap with infusion * LANTUS 64 units SQ qHS * Bolus Insulin * NOVOLOG per scale ACHS or Q6hrs while NPO * Goal Range: Low 110 mg/dL - High 150 mg/dL * Correction Factor: -- (per drip) mg/dL/unit * Nutritional / Prandial insulin per carb ratio of 1 unit per 4 grams CHO consumed - will utilize fixed carb ratio rather than carb ratio calculated by insulin infusion since patient patient takes large doses of insulin at home * Please note that the plan above was derived based on current level of insulin resistance and hospital stress. These recommendations are appropriate for inpatient admission only. Plan of care upon discharge will need to be reassessed to avoid potential outpatient hypo/hyperglycemia. Thank you.
[2017-07-14] MEDS ORDERED: NURSING DECISION MEDICATION ORDER SCH (19:30)
--- NOTE | 2017-07-14 19:37 | Pulmonary Consultation ---
History General Date of Service: Jul 14, 2017. Stated Complaint: Dyspnea; Elevated Troponin HPI The patient is a 76 year old female who presents to [facility] with complaints of Dyspnea; Elevated Troponin. The patient's primary care provider is Darwin Lugo III, CRNP. 76-year-old female admitted for 2017 for shortness of breath, dehydration and bronchitis. She has a past medical history significant for: Chronic rhinitis, GERD, depression, meningioma of the anterior fossa, hypertension and diabetes. She was seen in her primary care physician's office on 07/10/2017 for follow-up visit after being seen in her PCPs office as well as emergency room on 06/22/2017 for shortness of breath with a diagnosis of bronchitis and treated with doxycycline. She noted slow improvement in her PCPs office in her productive/green cough. She did note she remains short of breath. On the day prior to admission during exertion she noted extreme shortness of breath, fatigue and nausea. Patient was admitted and started on methylprednisolone, DuoNeb and continued on Astelin nasal spray as well as Zyrtec. Earlier today the patient had a "purple call if she experiences notable shortness of breath and possible aspiration. Dr. Cornel Billings was called and present during the event and noted no specific findings on auscultation of the chest. Echocardiogram performed was within normal limits showing only mild diastolic dysfunction but no changes compared to previous echocardiogram on 05/14/2015. Patient does note a history of intermittent shortness of breath associated with rhinitis as well as GERD over the last 4-5 years. She was to perform outpatient pulmonary function studies but due to severe coughing the study was discontinued. She notes during the event earlier in the day that she had thick mucus secretion she could not clear from her throat and caused her great deal of anxiety leading to her shortness of breath. During the time of our conversation the patient denied any shortness of breath, coughing, pleurisy, B type symptoms, hemoptysis or unintentional weight loss. She did continue to note difficulty with clearing her secretions. The patient did note that her nebulizer treatments were bringing up secretions and making her very nervous and and that she had refused treatments secondary to this issue. Troponins: 0.104, 0.084, 0.071 Creatinine: On admission 1.38 now down to 0.99 BNP: 104 EKG sinus rhythm rate 97 with PACs Chest x-ray on admission 07/13/2009: No acute process Past medical history 1. Allergic rhinitis 2. Asthma 3. Obesity 4. Uterine CA 5. Meningioma of the anterior fossa floor 6. depression 7. Diabetes mellitus 8. Diabetic nephropathy 9. Diabetic peripheral neuropathy 10. Dysphagia 11. Hearing loss 12. Hyperlipidemia 13. Hypertension 14. PVCs 15. Sleep apnea 16. TMJ dysfunction 17. Vitamin D deficiency 18. History of colon bipolar disorder 19. History of colon breast cancer Past surgical history 1. Mastectomy 2. Cardiac catheterization 3. Cataract surgery 4. Cholecystectomy 5. Knee surgery 6. Total abdominal hysterectomy Family history Coronary artery disease, myocardial infarction, diabetes, hypertension Social Alcohol: Denies history of use or abuse Tobacco: Former smoker, started age 15 but quit in the mid 70s Marital status: Currently Occupation: Retired Medications #1 Astelin nasal solution #2 Asmanex 220 mcg 1 puff twice daily #3 Ventolin HFA 2 puffs as needed #4 mometasone 0.1% external solution/ears #5 Humalog #6 Lantus #7 duloxetine 30 mg 2 capsules daily #8 gabapentin 300 mg #9 furosemide 20 mg as needed #10 aspirin 81 mg #11 metoprolol succinate 25 mg daily #12 EpiPen #13 NitroQuick 0.4 mg sublingual as needed #14 alprazolam 0.25 mg as needed #15 lidocaine patch 5% external patch Allergies Penicillins, sulfa drugs, Levaquin, metformin, DENILSON inhibitors, albuterol, amoxicillin, aspartame, Avandia, carbamazepine, contrast media, Detrol, diazepam , Gabriella-Q, Glucophage, ibuprofen, Lasix, meperidine, Midrin, nitrofurantoin, olanzapine, Paxil, Percocet, Prandin, prednisone, Pyridium, ranitidine, Remeron , Rofecoxib, Valium, valproic acid, Vioxx, Zantac, Zestril, Historian: patient, family, EMS Review of Systems Constitutional: reports: as stated in HPI Eyes: reports: no symptoms ENT: reports: as stated in HPI Cardiovascular: reports: as stated in HPI Respiratory: reports: as stated in HPI Gastrointestinal: reports: no symptoms Genitourinary - Female: reports: no symptoms Musculoskeletal: reports: no symptoms Integumentary: reports: no symptoms Neurologic: reports: no symptoms Psychiatric: reports: no symptoms Endocrine: no symptoms Hematologic / Lymphatic: no symptoms Allergic / Immunologic: no symptoms Past Medical History Past Medical History: Please refer to HPI Past Medical History: bipolar disorder, diabetes, other Past Surgical History: Please refer to HPI Family History Diabetes mellitus FH: cancer FH: heart disease FHx: gallbladder disease Hypertension Kidney disease Kidney stones Please refer to HPI Social History Please refer to HPI Hx Tobacco Use In Past Year?: No Smoking Status: Former Smoker Marital status: Housing status: lives with family Occupational Status: retired Immunizations History of Influenza Vaccine: Yes History of Tetanus Vaccine?: Yes History of Pneumococcal: Yes History of Hepatitis B Vaccine: No History of MDRO History of MDRO: No Allergies Coded Allergies: Meperidine and Related (Unverified Allergy, Severe, almost "closed throat ", 11/10/14) Midodrine (Unverified Allergy, Severe, "almost closed throat", 11/10/14) Penicillins (Unverified Allergy, Severe, ANAPHYLAXIS, 11/10/14) Quinolones (Verified Allergy, Severe, TOLERATED LEVAQUIN IV - SEP 06, 11/10) CIPRO-THROAT CLOSED Sulfamethoxazole w/Trimethoprim (Verified Allergy, Severe, THROAT CLOSED, 05/14/15) Diphenoxylate (Verified Allergy, Intermediate, 11/10/14) Replaces DIPHENOXYLATE2 PINS & NEEDLES, DIFFICULTY BREATHING Glyburide (Verified Allergy, Intermediate, 11/10/14) GLUCOVANCE-PINS AND NEEDLES,DIFFICULTY BREATHING Metformin (Verified Allergy, Intermediate, 11/10/14) GLUCOVANCE-PINS & NEEDLES,DIFFICULTY BREATHING ALSO GLUCOPHAGE XR-EXTREME ABDOMINAL PAIN Nitrofurantoin (Verified Allergy, Intermediate, 11/10/14) RASH Oxycodone (Verified Allergy, Intermediate, 11/10/14) SEVERE RASH Paroxetine (Verified Allergy, Intermediate, 11/10/14) PINS & NEEDLES, DIFFICULTY BREATHING Ranitidine (Verified Allergy, Intermediate, 11/10/14) RASH Repaglinide (Verified Allergy, Intermediate, 11/10/14) PINS &NEEDLES, DIFFICULTY BREATHING Rosiglitazone (Verified Allergy, Intermediate, 11/10/14) PINS & NEEDLES, DIFFICULTY BREATHING Temazepam (Verified Allergy, Intermediate, 11/10/14) PINS & NEEDLES, DIFFICULTY BREATHING DENILSON Inhibitors (Unverified Allergy, Unknown, unknown to pt, 11/10/14) Atropine (Verified Allergy, Unknown, 11/10/14) H2 Antagonists (Unverified Allergy, Unknown, unknown to pt, 11/10/14) Iodinated Diagnostic Agents (Verified Allergy, Unknown, `, 05/14/15) Phenazopyridine (Verified Allergy, Unknown, 11/10/14) Carbamazepine (Verified Adverse Reaction, Severe, 11/10/14) TOO HARD ON DIGESTIVE TRACT-ALSO IN COMBO WITH DEPAKOTE ER CAUSED PLATELET COUNT TO DROP VERY LOW Valproate Derivatives (Verified Adverse Reaction, Severe, 11/10/14) COULDN'T WAKE UP-ALSO DEPAKOTE ER WITH TEGRETOL CAUSED PLATELET COUNT TO DROP VERY LOW Albuterol (Verified Adverse Reaction, Intermediate, 11/10/14) HEART PALPITATIONS Olanzapine (Verified Adverse Reaction, Intermediate, 11/10/14) COULDN'T WAKE UP, HALLUCINATIONS Rofecoxib (Verified Adverse Reaction, Intermediate, 11/10/14) RAISES BLOOD PRESSURE Diazepam (Verified Adverse Reaction, Mild, SEDATION LASTING TOO LONG, 11/10) COULDN'T WAKE UP Ibuprofen (Verified Adverse Reaction, Mild, 11/10/14) SICK STOMACH Lisinopril (Verified Adverse Reaction, Mild, 11/10/14) EXCESSIVE HUNGER Mirtazapine (Verified Adverse Reaction, Mild, 06/17/13) SEVERE DRY MOUTH Current Medications Reported Home Medications Medications Dose Route/Sig Max Daily Dose Days Date Category Dose Instructions Lantus Solostar (Insulin Glargine) 100 Unit/Ml Inj 64 Units SC HS 07/13/17 Reported Duloxetine HCl 20 Mg Cap 20 Mg PO QAM 07/13/17 Reported Metoprolol Succinate ER (Metoprolol Succinate) 25 Mg Tabcr 25 Mg PO DAILY 07/13/17 Reported Cymbalta (Duloxetine Hcl) 20 Mg Cap 40 Mg PO QPM 07/13/17 Reported Gabapentin 600 Mg Tab 600 Mg PO QID 07/13/17 Reported Zyrtec (Cetirizine HCl) 10 Mg Tab 10 Mg PO QPM 07/13/17 Reported Astelin Nasal [place] (Azelastine Hcl) 200 Sprays/30 Ml [place] 2 Sprays RAJAT DAILY 07/13/17 Reported Aspirin Ec (Aspirin) 81 Mg Tab 81 Mg PO BID 05/13/15 Reported Humalog Kwikpen (Insulin Lispro (Human)) 100 Unit/Ml Inj 1 Dose SQ TIDM 05/13/15 Reported COVERAGE DIRECTED BY SLIDING SCALE Tums (Calcium Carbonate) 500 Mg Chew 1,000 Mg PO UD PRN 05/13/15 Reported TAKE PER PACKAGE DIRECTIONS Nitrostat (Nitroglycerin) 0.4 Mg Sub 0.4 Mg UT UD PRN 03/27/13 Reported Epipen (Epinephrine) 0.3 Mg/0.3 Ml Inj 0.3 Mg IM UD PRN 03/27/13 Reported Physical Physical Exam Vital Signs: Date Time Temp Pulse Resp B/P (MAP) Pulse Ox O2 Delivery O2 Flow Rate FiO2 07/14/17 16:00 94 Nasal Cannula 2.0 07/14/17 15:25 37.0 89 18 137/75 (95) 98 Nasal Cannula 2.0 07/14/17 12:39 36.7 75 20 124/76 (92) 98 Nasal Cannula 3.0 07/14/17 12:00 96 Nasal Cannula 2.0 07/14/17 11:23 75 18 98 Nasal Cannula 3.0 07/14/17 08:43 36.6 78 20 137/72 (93) 96 Room Air 07/14/17 08:00 95 Nasal Cannula 2.0 07/14/17 07:30 75 18 97 Nasal Cannula 2.0 07/14/17 04:00 95 Nasal Cannula 2.0 07/14/17 04:00 95 Nasal Cannula 2.0 07/14/17 03:34 70 18 127/70 (89) 95 Nasal Cannula 07/14/17 03:23 36.5 85 18 95 Nasal Cannula 2.0 07/14/17 03:16 90 20 152/81 (104) 95 Nasal Cannula 2.0 07/14/17 00:01 94 Nasal Cannula 2.0 07/13/17 23:26 36.9 89 18 152/76 (101) 95 Nasal Cannula 2.0 07/13/17 20:46 86 18 94 Nasal Cannula 2.0 07/13/17 20:15 36.7 80 18 146/80 97 Nasal Cannula 2.0 07/13/17 19:42 79 20 114/82 99 Nasal Cannula 2.0 General Appearance: NO APPARENT DISTRESS Head: NORMOCEPHALIC, ATRAUMATIC Eyes: other (Mild exophthalmos) ENT: NORMAL EAR EXAM, other (Mallampati 3/4) Neck: NORMAL RANGE OF MOTION, NO TENDERNESS, TRACHEA MIDLINE Respiratory: BREATH SOUNDS NORMAL, CLEAR TO AUSCULTATION, CLEAR TO PERCUSSION Cardiovasular: REGULAR RATE/RHYTHM, NORMAL S1S2, NO M/G/R, NO MURMUR, NO GALLOP Abdomen: NON TENDER, NORMAL BOWEL SOUNDS, NO REBOUND, NO MASSES, NO GUARDING, NO ORGANOMEGALY Genitourinary - Female: EXTERNAL GENITALIA NORMAL Back: NORMAL INSPECTION, NO MIDLINE TENDERNESS, NO CVA TENDERNESS, NO PARAVERTEBRAL TTP Upper Extremities: NO EDEMA, NO DEFORMITY, NORMAL ROM Lower Extremities: NO EDEMA, NO DEFORMITY, NORMAL ROM Pulses: carotid (R) (2+), carotid (L) (2+), dorsalis pedis (R) (1+), dorsalis pedis (L) (1+) Neuro: ALERT, ORIENTED x 3, NORMAL MOTOR EXAM, NORMAL SENSATION Reflexes: biceps (R) (2+), bicpes (L) (2+), patellar (R) (2+), patellar (L) (2+ ) Babinski Testing: right (downgoing), left (downgoing) Psychiatric: anxious Diagnostics Labs Results Past 24 Hours Test 07/13/17 20:27 07/13/17 21:17 07/14/17 00:26 07/14/17 03:40 Range/Units Bedside Glucose 206 314 70-90 mg/dl Hepatitis C Antibody Screen NEG NEG Creatine Kinase MB 1.4 0.5-3.6 ng/ml Creatine Kinase MB Ratio 0-3.0 Troponin I 0.084 0-0.045 ng/ml Test 07/14/17 07:06 07/14/17 07:12 07/14/17 11:22 07/14/17 13:08 Range/Units Bedside Glucose 320 317 351 70-90 mg/dl Sodium Level 140 136-145 mmol/L Potassium Level 3.8 3.5-5.1 mmol/L Chloride Level 110 98-107 mmol/L Carbon Dioxide Level 22 21-32 mmol/L Anion Gap 8.0 3-11 mmol/L Blood Urea Nitrogen 25 7-18 mg/dl Creatinine 0.99 0.60-1.20 mg/dl Est Creatinine Clear Calc Drug Dose 54.2 ml/min Estimated GFR () 64.2 Estimated GFR (Non- 55.4 BUN/Creatinine Ratio 25.1 10-20 Random Glucose 260 70-99 mg/dl Estimated Average Glucose 171 mg/dl Hemoglobin A1c 7.6 4.5-5.6 % Calcium Level 7.1 8.5-10.1 mg/dl Creatine Kinase MB 1.4 0.5-3.6 ng/ml Creatine Kinase MB Ratio 0-3.0 Troponin I 0.071 0-0.045 ng/ml Triglycerides Level 86 0-150 mg/dl Cholesterol Level 111 0-200 mg/dl HDL Cholesterol 35 mg/dl LDL Cholesterol, Calculated 59 mg/dl VLDL Cholesterol, Calculated 17 mg/dl Cholesterol/HDL Ratio 3.2 Test 07/14/17 14:02 07/14/17 15:18 07/14/17 16:19 07/14/17 17:23 Range/Units Bedside Glucose 331 280 243 208 70-90 mg/dl Test 07/14/17 18:17 Range/Units Bedside Glucose 214 70-90 mg/dl Diagnostic Radiology Please refer to HPI EKG Please refer to HPI Impression Assessment and Plan 76-year-old female with acute episode of shortness of Breath earlier today: 1. Acute shortness of breath: The exact etiology of the patient's shortness of breath is difficult to discern at this time it could be secondary to severe GERD and/or postnasal drip which she has a history of causing go glottic secretions difficulty with clearing. It also could be a possible underlying chronic lung disease such as obstructive ventilatory disease. His patient does have some previous ground-glass changes possible tree-in-bud in bronchial wall thickening from CT on 03/28/2013. Due to this in her clinical history are would like to repeat a noncontrast CT of the chest tomorrow as well as move forward with spirometry and obtain an ABG as the patient is currently on supplemental oxygen. 2. Sleep apnea: Patient has not seen a sleep physician in multiple years last time I believe was Dr. Justen Watson. She notes that her CPAP is set at 14 centimeters of water pressure. Will make sure CPAP is ordered and set at 14 centimeters of water pressure.
[2017-07-14] MEDS ORDERED: COUGH DROP (SUGAR FREE) LOZ 24 LOZ/1 BOX LOZ PRN (19:45)
[2017-07-14] MEDS: METHYLPREDNISOLONE IV 40 MG in SYRINGE 0 ML IV SCH (21:32)
[2017-07-14] MEDS: CETIRIZINE HCL 10 MG TAB PO SCH (21:32)
--- NOTE | 2017-07-14 21:41 | Progress Note ---
Subjective Date of Service: Jul 14, 2017. Subjective Pt evaluation today including: conversation w/ patient, conversation w/ family (daughter at bedside), physical exam, chart review, lab review, review of studies (cxr, echo, etc), conversation w/ technology consultant (pulmonary), review of inpatient medication list Pain: throat PO Intake: normal Voiding: no voiding problems A "code purple" was called this AM on Ms. Carvalho. I went to the code as Mr. Carvalho was assigned to my panel of patients. Upon arrival she was on 100% FiO2 via facemask. She was tachypneic and despite such was able to talk. She kept repeating "I can't breath." She stated she thought she was having "an allergic reaction" to the IV insulin. Despite such her o2 sats were normal. She was tachycardic and hypertensive. During my initial lung exam she was clear without ANY stridor, wheeze, rhonchi, or rales (diminished mildly in the bases). I asked her to slow her breathing and take deep breaths. Within a minute all symptoms improved and we quickly placed her back on NC o2. Again o2 sats remained 98-99%. Daughter states the following sequence - patient was sleeping soundly; she awoke and asked for water; her daughter gave her a few sips of water; the patient went back to sleep. a few moments later she awoke stating "I can't breath." throughout this encounter the patient kept stating she had "Mucous" in her throat which was causing her to feel like she couldn't breath she denied any prior h/o asthma, bronchitis, or another chronic lung condition she DOES use CPAP at for CAMRON she takes PPI for reflux but denies recent GERD symptoms she has had a hoarse voice for several months along with her cough additionally she has had trouble swallowing for some time and had "her esophagus stretched" by Olivia COOPER previously Dr. Hodge, her pre assembly wirer, told her that her symptoms she has had recently were unlikely to be from her heart. Problem List Medical Problems: (1) Anxiety Status: Acute (2) Cephalgia Status: Acute (3) Dyspnea Status: Acute (4) Elevated troponin Status: Acute (5) Elevated troponin Status: Acute (6) Generalized weakness Status: Acute (7) Precordial chest pain Status: Acute (8) Weakness Status: Acute Review of Systems Constitutional: No fever, No chills ENT: + trouble swallowing, + problem reported (hoarse voice) Respiratory: + cough, + dyspnea on exertion, + dyspnea at rest, No sputum, No wheezing, No hemoptysis Cardiac: + edema (mild), No chest pain (yesterday, none today), No orthopnea, No PND Abdomen: No pain, No nausea, No vomiting Objective Vital Signs Date Time Temp Pulse Resp B/P (MAP) Pulse Ox O2 Delivery O2 Flow Rate FiO2 07/14/17 21:11 36.9 86 18 152/66 (94) 96 Nasal Cannula 3.0 07/14/17 16:00 94 Nasal Cannula 2.0 07/14/17 15:25 37.0 89 18 137/75 (95) 98 Nasal Cannula 2.0 07/14/17 12:39 36.7 75 20 124/76 (92) 98 Nasal Cannula 3.0 07/14/17 12:00 96 Nasal Cannula 2.0 07/14/17 11:23 75 18 98 Nasal Cannula 3.0 07/14/17 08:43 36.6 78 20 137/72 (93) 96 Room Air 07/14/17 08:00 95 Nasal Cannula 2.0 07/14/17 07:30 75 18 97 Nasal Cannula 2.0 07/14/17 04:00 95 Nasal Cannula 2.0 07/14/17 04:00 95 Nasal Cannula 2.0 07/14/17 03:34 70 18 127/70 (89) 95 Nasal Cannula 07/14/17 03:23 36.5 85 18 95 Nasal Cannula 2.0 07/14/17 03:16 90 20 152/81 (104) 95 Nasal Cannula 2.0 07/14/17 00:01 94 Nasal Cannula 2.0 07/13/17 23:26 36.9 89 18 152/76 (101) 95 Nasal Cannula 2.0 Physical Exam General Appearance: + moderate distress (during code purple; symptoms resolved after about 5 min; was tachypneic, mild retractions) ENT: pharynx normal, + muffled/hoarse voice (hoarse) Neck: no JVD Respiratory/Chest: lungs clear, no respiratory distress, no accessory muscle use, + decreased breath sounds (minimal bases), + crackles (minimal bases) Cardiovascular: no gallop, no murmur, + tachycardia Abdomen: normal bowel sounds, non tender, soft, no organomegaly Extremities: + pedal edema (trace-1+ b/l) Neurologic/Psychiatric: alert, oriented x 3, + pertinent finding (anxious ) Laboratory Results Last 24 Hours Test 07/14/17 00:26 07/14/17 03:40 07/14/17 07:06 07/14/17 07:12 Creatine Kinase MB 1.4 ng/ml 1.4 ng/ml Creatine Kinase MB Ratio Troponin I 0.084 ng/ml 0.071 ng/ml Bedside Glucose 314 mg/dl 320 mg/dl Sodium Level 140 mmol/L Potassium Level 3.8 mmol/L Chloride Level 110 mmol/L Carbon Dioxide Level 22 mmol/L Anion Gap 8.0 mmol/L Blood Urea Nitrogen 25 mg/dl Creatinine 0.99 mg/dl Est Creatinine Clear Calc Drug Dose 54.2 ml/min Estimated GFR () 64.2 Estimated GFR (Non- 55.4 BUN/Creatinine Ratio 25.1 Random Glucose 260 mg/dl Estimated Average Glucose 171 mg/dl Hemoglobin A1c 7.6 % Calcium Level 7.1 mg/dl Triglycerides Level 86 mg/dl Cholesterol Level 111 mg/dl HDL Cholesterol 35 mg/dl LDL Cholesterol, Calculated 59 mg/dl VLDL Cholesterol, Calculated 17 mg/dl Cholesterol/HDL Ratio 3.2 Test 07/14/17 11:22 07/14/17 13:08 07/14/17 14:02 07/14/17 15:18 Bedside Glucose 317 mg/dl 351 mg/dl 331 mg/dl 280 mg/dl Test 07/14/17 16:19 07/14/17 17:23 07/14/17 18:17 07/14/17 19:13 Bedside Glucose 243 mg/dl 208 mg/dl 214 mg/dl 178 mg/dl Test 07/14/17 20:21 07/14/17 21:01 Bedside Glucose 137 mg/dl Assessment and Plan 76yo female - 1. acute respiratory distress - resolved. Differential for yesterday's and today's events - * bronchospasm * reflux-induced laryngospasm * dysphagia with resulting aspiration * laryngeal dyskinesia * anxiety/panic * cardiac (doubtful) - EKG during today's event was w/o ischemic changes I spoke with Dr. Mojica, pulmonary, who will consult. Appreciate his recommendations. 2. recent bronchitis - patient has been treated for bronchitis in the last 2 weeks. She was placed on high-dose steroids yesterday. She has no significant wheezing and air movement is good today. Will cut the steroids back significantly today. Agree with PFTs. 3. chronic hoarse voice - differential includes reflux-induced vs post-nasal drip vs vocal cord lesion/tumor vs other. Would benefit from ENT eval and direct laryngoscopy. 4. CAMRON - cont CPAP at ; daughter to bring unit. 5. uncontrolled T2DM - due to IV steroids; glycemic control consult was placed yesterday; insulin infusion to be started. 6. minimal acute kidney injury - resolved with IVF. Stop IVF. 7. positive troponin - suspect myocardial demand ischemia/type 2 MS from issues noted above. Doubt ACS. 8. morbid obesity w/ BMI 41 9. DVT proph - heparin TID. 10. microcytosis on CBC - check iron studies AM. 11. FEN - stop fluids. BMP am for stability. 12. GERD - place on PPI. 13. HTN - labile but now controlled. Cont home meds. daughter updated at bedside total time about 50 minutes including reviewing records, speaking with pulmonary , managing code purple, etc Continued [facility] stay due to: multiple IV medications needed Discharge planning: home
[2017-07-14] MEDS ORDERED: ZOLPIDEM TARTRATE 5 MG TAB PO PRN (22:00)
[2017-07-14] MEDS: INSULIN GLARGINE SOLOSTAR 100 UNITS/ML 3 ML PEN SC SCH (22:30)
[2017-07-15] VITALS (13 sets, daily range): BP systolic 143–181; BP diastolic 67–94; PULSE 18–86; TEMP 36.4–37; O2SAT 90–98
[2017-07-15] MEDS: HEPARIN SOD 5000 UNIT/0.5 ML CARP SQ SCH ×3 (06:31→21:27)
[2017-07-15 06:55] LABS: CREATININE 1.03 mg/dl (0.60-1.20); POTASSIUM 4.3 mmol/L (3.5-5.1)
[2017-07-15] MEDS: ALBUT/IPRATROP 3MG/0.5MG NEB 3 ML VIAL INH SCH ×4 (08:00→19:30)
[2017-07-15] MEDS: DULOXETINE HCL 20 MG CAP PO SCH ×2 (09:10→21:24)
[2017-07-15] MEDS: AZELASTINE HCL 0.1 % NASAL SPRAY SCH (09:10)
[2017-07-15] MEDS: METOPROLOL SUCC 25MG EXT REL TAB PO SCH (09:10)
[2017-07-15] MEDS: GABAPENTIN 600 MG TAB PO SCH ×4 (09:10→21:24)
[2017-07-15] MEDS: ASPIRIN 81 MG ECTAB PO SCH ×2 (09:10→21:24)
[2017-07-15] MEDS: METHYLPREDNISOLONE IV 40 MG in SYRINGE 0 ML IV SCH (09:10)
[2017-07-15] MEDS: PANTOprazole SOD 40 MG TAB PO SCH (09:10)
--- NOTE | 2017-07-15 09:10 | DIAGNOSTIC IMAGING REPORT ---
(CHEST) THORAX WITHOUT CLINICAL HISTORY: 76 years-old Female presenting with Acute shortness of breath and history of abnormal CT of the chest. TECHNIQUE: Multidetector CT imaging of the chest was performed without the use of intravenous contrast. IV contrast: None. A dose lowering technique was used consistent with the principles of ALARA (as low as reasonably achievable). COMPARISON: Chest x-ray from 07/13/2017 and 06/17/2013. CT DOSE (mGy.cm): The estimated cumulative dose is 857.42 mGy.cm. FINDINGS: Microwave Remote Sensing Scientist topogram: Unremarkable. On soft tissue windows, normal thyroid. Surgical clips or calcification noted in the bilateral axillae. No axillary, supraclavicular, or mediastinal lymphadenopathy. Evaluation of the ирина limited without intravenous contrast. Atherosclerosis of the aorta. Normal heart size. Coronary artery calcification. No pericardial or pleural effusion. Hepatic steatosis. Cholecystectomy clips. On lung windows, minimal dependent changes likely atelectasis. No other focal nodule or infiltrate. Airways patent. On bone windows, degenerative changes of the spine. Heterogeneity of bone marrow. IMPRESSION: 1. No acute intrathoracic pathology. 2. Bibasilar atelectasis. 3. Heterogeneity of bone marrow, nonspecific. Correlate for underlying metabolic abnormality or malignancy. 4. Hepatic steatosis. Electronically signed by: Chi Blackwell M.D. 07/15/2017 9:08 AM Dictated Date/Time: 07/15/2017 9:03 AM
[2017-07-15] MEDS: INSULIN ASPART 100 UNITS/ML 3 ML PEN SC SCH ×4 (09:15→21:26)
--- NOTE | 2017-07-15 10:14 | Pharmacy Progress Note ---
Glycemic Control Progress Note Date of Service Jul 15, 2017. Scope Glycemic Pharmacist consulted for glycemic control to write orders per [facility] inpatient glycemic control protocol. Objective Accuchecks BSG (last 24hrs): Test 07/14/17 11:22 07/14/17 13:08 07/14/17 14:02 07/14/17 15:18 Bedside Glucose 317 mg/dl (70-90) 351 mg/dl (70-90) 331 mg/dl (70-90) 280 mg/dl (70-90) Test 07/14/17 16:19 07/14/17 17:23 07/14/17 18:17 07/14/17 19:13 Bedside Glucose 243 mg/dl (70-90) 208 mg/dl (70-90) 214 mg/dl (70-90) 178 mg/dl (70-90) Test 07/14/17 20:21 07/14/17 21:18 07/14/17 22:25 07/14/17 23:24 Bedside Glucose 137 mg/dl (70-90) 132 mg/dl (70-90) 121 mg/dl (70-90) 92 mg/dl (70-90) Test 07/14/17 23:49 07/15/17 00:24 07/15/17 01:13 07/15/17 02:13 Bedside Glucose 93 mg/dl (70-90) 116 mg/dl (70-90) 97 mg/dl (70-90) 123 mg/dl (70-90) Test 07/15/17 03:14 07/15/17 04:32 07/15/17 05:21 07/15/17 05:39 Bedside Glucose 120 mg/dl (70-90) 107 mg/dl (70-90) 108 mg/dl (70-90) Random Glucose 104 mg/dl (70-99) Test 07/15/17 06:29 07/15/17 07:46 07/15/17 09:07 Bedside Glucose 117 mg/dl (70-90) 97 mg/dl (70-90) 185 mg/dl (70-90) HbA1c: Test 07/14/17 07:12 Hemoglobin A1c 7.6 % (4.5-5.6) H Outpatient Anti-Diabetic Meds * Lantus 64 units SQ qHS + Novolog SS Assessment & Plan ASSESSMENT: * 76 yr old T2DM female admitted with SOB, ? COPD exacerbation and elevated troponin. Patient started on high dose IV steroids. * IV insulin infusion initiated on 07/14 am for severe steroid induced hyperglycemia despite IV regular insulin bolus and aggressive SQ insulin doses. * Patients home dose of Lantus 64 units SQ HS was continued in addition to the infusion * BSGs have improved greatly since the addition of insulin infusion. * Infusion rates have ranged from 3.4 units/hr to 9.2 units/hr. * Patient received 150 units of SQ insulin in addition to the infusion * Due to significant infusion rates and continued administration of high dose IV steroids (currently solu-medrol 40 mg IV q12), I will continue insulin infusion. PLAN FOR INPATIENT GLYCEMIC CONTROL: * Continue IV insulin infusion per severe stress protocol * Goal Range 110 - 150 mg/dl * Basal insulin - overlap with infusion * LANTUS 64 units SQ qHS * Bolus Insulin * NOVOLOG per scale ACHS or Q6hrs while NPO * Goal Range: Low 110 mg/dL - High 150 mg/dL * Correction Factor: -- (per drip) mg/dL/unit * Nutritional / Prandial insulin per carb ratio of 1 unit per 4 grams CHO consumed - will utilize fixed carb ratio rather than carb ratio calculated by insulin infusion since patient patient takes large doses of insulin at home DISCHARGE RECOMMENDATIONS: * HbA1c of 7.6 % indicates adequate outpatient glycemic control * Continue current home regimen on discharge * if steroids are continued on discharge, a temporary adjustment to insulin doses is needed to account for steroid induced hyperglycemia Thank you.
--- NOTE | 2017-07-15 10:52 | Pulmonology Progress Note ---
Pulmonary Progress Note Date of Service Jul 15, 2017. Attending Dr. Mojica Subjective Patient doing well lying in bed today showing no signs of respiratory insufficiency Objective Patient denies any respiratory insufficiency at this time or productive cough: She also denies fever, chills, hemoptysis Past medical history: Allergic rhinitis, obesity, sleep apnea, dysphagia, hyperlipidemia, hypertension, meningioma by the anterior fossa, depression Vital signs: Currently stable on room air SaO2 is 97% Respiratory: Clear to auscultation bilaterally Cardiac: S1-S2 regular rate and rhythm no murmurs rubs or gallops Abdomen: Mildly distended but soft nontender no rebound positive bowel sounds Extremities: No clubbing cyanosis CHILD AND FAMILY SERVICES SPECIALIST: Grossly intact no focal weakness ABG (07/14/17) 7.45/41/83/28 (3Lnc) A-a(44) Noncontrast CT of the chest 07/15/2017: Bibasilar atelectasis, heterogeneity of bone marrow, hepatic steatosis Cardiac echo 07/14/2009 LV: EF=60-65%, grade 1 diastolic dysfunction RV: WNL, TAPSE >1.5cm Atria: WNL Medications 1. Pantoprazole 40 mg daily 2. Methylprednisolone 40 mg every 12 3. Astelin nasal spray 4. Zyrtec 10 mg 5. DuoNeb's 4 times daily Assessment & Plan 76-year-old female with acute episode of shortness of Breath earlier today: 1. Acute SOB: At this time patient is saturating 97% on room air and has a normal CT of the chest as well as small Aa gradient on 3 L nasal cannula. I should note that oxygen is noted to distort the Aa gradient. There are studies showing that oxygen depending on the level concentration can distort the gradient from 3 to [address] does show some bilateral lower lobe atelectasis which could be consistent with a small aspiration event or possible atelectasis from bedbound condition. At this time incentive spirometry and follow-up on patient's swallow evaluation. 2. Sleep Apnea: Patient has not seen a sleep physician in multiple years last time I believe was Dr. Justen Watson. She notes that her CPAP is set at 14 centimeters of water pressure. Will make sure CPAP is ordered and set at 14 centimeters of water pressure. Recommendations: Continue patient's CPAP, follow-up on swallow evaluation and incentive spirometry at the bedside. Pulmonary will sign off the patient can be followed up in the outpatient setting with provider Meghan To and she was previously had an appointment with this provider. Data Medications: Current Inpatient Medications Medications (Trade) Dose Ordered Sig/Brittany Route Start Time Stop Time Status Last Admin Dose Admin Acetaminophen (Tylenol Tab) 650 mg Q4H PRN PO 07/13/17 19:00 08/12/17 18:59 Al Hydrox/Mg Hydrox/Simethicone (Maalox Max Susp) 15 ml Q4H PRN PO 07/13/17 19:00 08/12/17 18:59 Magnesium Hydroxide (Milk Of Magnesia Susp) 30 ml Q12H PRN PO 07/13/17 19:00 08/12/17 18:59 Ondansetron HCl (Zofran Inj) 4 mg Q6H PRN IV 07/13/17 19:00 08/12/17 18:59 Nitroglycerin (Nitrostat Tab) 0.4 mg UD PRN SL 07/13/17 19:00 08/12/17 18:59 07/14/17 03:59 0.4 MG Morphine Sulfate (MoRPHine SULFATE INJ) 2 mg Q30M PRN IV 07/13/17 19:00 07/27/17 18:59 Polyethylene (Miralax Powder Packet) 17 gm DAILY PRN PO 07/13/17 19:00 08/12/17 18:59 Heparin Sodium (Porcine) (Heparin Sq 5000 Unit/0.5ml) 5,000 unit Q8 SQ 07/13/17 22:00 08/12/17 21:59 07/15/17 06:31 5,000 UNIT Aspirin (Ecotrin Tab) 81 mg BID PO 07/13/17 21:00 08/12/17 20:59 07/15/17 09:10 81 MG Calcium Carbonate (Tums Chew Tab) 1,000 mg UD PRN PO 07/13/17 19:00 08/12/17 18:59 Cetirizine HCl (zyrTEC TAB) 10 mg QPM PO 07/13/17 21:00 08/12/17 20:59 07/14/17 21:32 10 MG Duloxetine HCl (Cymbalta Cap) 20 mg QAM PO 07/14/17 09:00 08/13/17 08:59 07/15/17 09:10 20 MG Duloxetine HCl (Cymbalta Cap) 40 mg QPM PO 07/13/17 21:00 08/12/17 20:59 07/14/17 21:32 40 MG Gabapentin (Neurontin Tab) 600 mg QID PO 07/13/17 21:00 08/12/17 20:59 07/15/17 09:10 600 MG Metoprolol Succinate (Toprol Xl Tab) 25 mg DAILY PO 07/14/17 09:00 08/13/17 08:59 07/15/17 09:10 25 MG Albuterol/ Ipratropium (Duoneb) 3 ml QIDR INH 07/13/17 20:00 08/12/17 19:59 07/15/17 08:00 3 ML Glucose (Glucose 40% Gel) 15-30 GRAMS 15 GRAMS... UD PRN PO 07/13/17 19:45 08/12/17 19:44 Glucose (Glucose Chew Tab) 4-8 Tablets 4 Tabl... UD PRN PO 07/13/17 19:45 08/12/17 19:44 Dextrose (Dextrose 50% 50ML Syringe) 25-50ML OF 50% DW IV FOR... UD PRN IV 07/13/17 19:45 08/12/17 19:44 Glucagon (Glucagon Inj) 1 mg UD PRN SQ 07/13/17 19:45 08/12/17 19:44 Miscellaneous (Iv Fluids Completed) 1 ea PRN PRN N/A 07/13/17 19:45 07/13/18 19:44 Azelastine HCl (Astelin Nasal [place]) 2 sprays DAILY NA 07/14/17 09:00 08/13/17 08:59 07/15/17 09:10 2 SPRAYS Miscellaneous Information (Consult Glycemic Management Pharmacy) 1 ea DAILY PRN N/A 07/14/17 04:07 08/13/17 04:06 Insulin Human Regular 250 units/ Sodium Chloride 252.5 ml @ 0 mls/hr Q24H IV 07/14/17 12:30 08/13/17 12:29 07/14/17 12:57 3.8 MLS/HR Insulin Aspart (novoLOG ASPART) PLEASE USE A FIXED CARB RA... PCHS SC 07/14/17 17:30 08/13/17 17:29 07/15/17 09:15 14 UNITS Insulin Glargine (Lantus Solostar Pen) 64 units QPM SC 07/14/17 21:00 08/13/17 20:59 07/14/17 22:30 64 UNITS Methylprednisolone Sodium Succinate 40 mg/Syringe 0.64 ml @ 1.5 mls/min Q12H IV 07/14/17 21:00 08/12/17 20:59 07/15/17 09:10 1.5 MLS/MIN Menthol ([place]) 1 pancho PRN PRN PANCHO 07/14/17 19:45 08/13/17 19:44 Pantoprazole Sodium (Protonix Tab) 40 mg QAM PO 07/15/17 09:00 07/18/17 09:01 07/15/17 09:10 40 MG Zolpidem Tartrate (Ambien Tab) 5 mg ONE PRN PO 07/14/17 22:00 08/13/17 21:59 07/14/17 22:27 5 MG Vital Signs: Date Time Temp Pulse Resp B/P (MAP) Pulse Ox O2 Delivery O2 Flow Rate FiO2 07/15/17 08:22 36.6 70 22 162/87 (112) 97 Room Air 18 07/15/17 08:10 81 18 90 Room Air 07/15/17 08:00 95 Room Air 07/15/17 04:00 CPAP 07/15/17 03:52 36.7 82 18 154/82 (106) 96 07/15/17 00:42 36.4 75 18 157/87 (110) 98 07/14/17 23:59 Nasal Cannula 2.0 07/14/17 22:59 76 95 3.0 07/14/17 21:11 36.9 86 18 152/66 (94) 96 Nasal Cannula 3.0 07/14/17 20:00 Nasal Cannula 2.0 07/14/17 16:00 94 Nasal Cannula 2.0 07/14/17 15:25 37.0 89 18 137/75 (95) 98 Nasal Cannula 2.0 07/14/17 12:39 36.7 75 20 124/76 (92) 98 Nasal Cannula 3.0 07/14/17 12:00 96 Nasal Cannula 2.0 07/14/17 11:23 75 18 98 Nasal Cannula 3.0 Laboratory Results: Last 24 Hours Test 07/14/17 11:22 07/14/17 13:08 07/14/17 14:02 07/14/17 15:18 Bedside Glucose 317 mg/dl 351 mg/dl 331 mg/dl 280 mg/dl Test 07/14/17 16:19 07/14/17 17:23 07/14/17 18:17 07/14/17 19:13 Bedside Glucose 243 mg/dl 208 mg/dl 214 mg/dl 178 mg/dl Test 07/14/17 20:21 07/14/17 21:01 07/14/17 21:18 07/14/17 22:25 Bedside Glucose 137 mg/dl 132 mg/dl 121 mg/dl Arterial Blood pH 7.45 Arterial Blood Partial Pressure CO2 41 mmHg Arterial Blood Partial Pressure O2 83 mm/Hg Arterial Blood HCO3 28 mmol/L Arterial Blood Oxygen Saturation 96.0 % Arterial Blood Base Excess 3.4 mEq/L Arterial Blood Gas Delivery 3 L Simón Test POS Test 07/14/17 23:24 07/14/17 23:49 07/15/17 00:24 07/15/17 01:13 Bedside Glucose 92 mg/dl 93 mg/dl 116 mg/dl 97 mg/dl Test 07/15/17 02:13 07/15/17 03:14 07/15/17 04:32 07/15/17 05:21 Bedside Glucose 123 mg/dl 120 mg/dl 107 mg/dl Sodium Level 140 mmol/L Potassium Level 4.3 mmol/L Chloride Level 109 mmol/L Carbon Dioxide Level 29 mmol/L Anion Gap 2.0 mmol/L Blood Urea Nitrogen 30 mg/dl Creatinine 1.03 mg/dl Est Creatinine Clear Calc Drug Dose 51.3 ml/min Estimated GFR () 61.2 Estimated GFR (Non- 52.8 BUN/Creatinine Ratio 28.7 Random Glucose 104 mg/dl Calcium Level 9.0 mg/dl Iron Level 58 mcg/dl Total Iron Binding Capacity 297 mcg/dl Transferrin 257 mg/dl Transferrin % Saturation 16 % Ferritin 113.5 ng/ml Test 07/15/17 05:39 07/15/17 06:29 07/15/17 07:46 07/15/17 09:07 Bedside Glucose 108 mg/dl 117 mg/dl 97 mg/dl 185 mg/dl Test 07/15/17 10:01 Bedside Glucose 206 mg/dl
[2017-07-15] MEDS: INSULIN REGULAR 250 UNITS in SODIUM CHLORIDE 0.9% 250ML 250 ML IV SCH (12:34)
--- NOTE | 2017-07-15 14:34 | DIAGNOSTIC IMAGING REPORT ---
LUMBAR SPINE 2 OR 3 VIEWS CLINICAL HISTORY: 76 years-old Female presenting with back pain. TECHNIQUE: Frontal, lateral, and coned in lateral views of the lumbar spine were obtained. COMPARISON: Lumbar spine MR from 2010. FINDINGS: Minimal levocurvature of the lumbar spine. Slight straightening of normal lumbar lordosis. Vertebral bodies maintain normal height and alignment. Significant intervertebral disc height loss and vacuum disc phenomenon noted at L2-3 through L5-S1. Significant osteophytosis, which appears to result in varying degrees of spinal canal narrowing. In combination with facet arthropathy, osseous neural foraminal narrowing suggested from L3-4 through L5-S1. No compression deformity or evidence of subluxation. Atherosclerosis. Cholecystectomy clips. IMPRESSION: 1. Multilevel degenerative changes of lumbar spine with osseous spinal canal and neural foraminal narrowing suggested. 2. No radiographic evidence of acute osseous injury. Electronically signed by: Chi Blackwlel M.D. 07/15/2017 2:33 PM Dictated Date/Time: 07/15/2017 2:31 PM
--- NOTE | 2017-07-15 14:38 | DIAGNOSTIC IMAGING REPORT ---
R HIP UNILATERAL 2 VIEWS CLINICAL HISTORY: 76 years-old Female presenting with right hip pain. TECHNIQUE: Frontal and frog-leg lateral views of the right hip were obtained. COMPARISON: 08/29/2010. FINDINGS: Right hip joint congruent. No acute fracture or malalignment. Joint spaces preserved. Minimal osteophytosis at the superior acetabulum suggested. Visualized portion of the bony pelvis intact. No radiographic soft tissue abnormality. IMPRESSION: 1. No acute osseous injury. 2. No advanced degenerative change. Electronically signed by: Chi Blackwell M.D. 07/15/2017 2:36 PM Dictated Date/Time: 07/15/2017 2:35 PM
[2017-07-15] MEDS: INSULIN GLARGINE SOLOSTAR 100 UNITS/ML 3 ML PEN SC SCH (16:57)
[2017-07-15] MEDS: CETIRIZINE HCL 10 MG TAB PO SCH (21:24)
--- NOTE | 2017-07-15 21:49 | Progress Note ---
Subjective Date of Service: Jul 15, 2017. Subjective Pt evaluation today including: conversation w/ patient, conversation w/ family ( at bedside), physical exam, chart review, lab review, review of studies (Chest CT, prior MRI lumbar spine, prior CT abd/pelvis), conversation w / financial services education consultant (pulmonary; ENT (Dr SHANNON)), review of inpatient medication list Pain: intermittent dysphagia/odynophagia PO Intake: but eating well Voiding: no voiding problems Pt feels very good today. O2 has been weaned off. Has mild dry cough. Still with hoarse voice and swallowing difficulties (latter is intermittently). Tele stable overnight. Had another episode of severe dysphagia/dyspnea this afternoon leading to hyperventilating but this stopped w/o incident. Denies any recent instrumentation of her urinary tract. Denies a recent UTI. Sees Dr. Mccauley from [facility] urology for her recurrent urinary tract issues. Problem List Medical Problems: (1) Anxiety Status: Acute (2) Cephalgia Status: Acute (3) Dyspnea Status: Acute (4) Elevated troponin Status: Acute (5) Elevated troponin Status: Acute (6) Generalized weakness Status: Acute (7) Precordial chest pain Status: Acute (8) Weakness Status: Acute Review of Systems Constitutional: No fever, No chills Respiratory: + cough, No sputum, No wheezing, No shortness of breath, No dyspnea on exertion Cardiac: No chest pain, No orthopnea, No PND Abdomen: No pain, No nausea, No vomiting Objective Vital Signs Date Time Temp Pulse Resp B/P (MAP) Pulse Ox O2 Delivery O2 Flow Rate FiO2 07/15/17 19:30 76 16 98 Room Air 07/15/17 19:29 76 18 181/94 (123) 98 07/15/17 17:34 78 18 176/67 (103) 94 Room Air 07/15/17 16:00 95 Room Air 07/15/17 15:10 36.9 86 18 171/86 (114) 94 Nasal Cannula 3.0 07/15/17 12:46 37.0 81 16 143/76 (98) 94 Room Air 07/15/17 12:00 94 Room Air 07/15/17 08:22 36.6 70 22 162/87 (112) 97 Room Air 18 07/15/17 08:10 81 18 90 Room Air 07/15/17 08:00 95 Room Air 07/15/17 04:00 CPAP 07/15/17 03:52 36.7 82 18 154/82 (106) 96 07/15/17 00:42 36.4 75 18 157/87 (110) 98 07/14/17 23:59 Nasal Cannula 2.0 07/14/17 22:59 76 95 3.0 Physical Exam General Appearance: no apparent distress, + obese, + pertinent finding (looks great today) ENT: pharynx normal, + muffled/hoarse voice (hoarse) Neck: no JVD Respiratory/Chest: lungs clear, no respiratory distress, no accessory muscle use Cardiovascular: regular rate, rhythm, no gallop, no murmur Abdomen: normal bowel sounds, non tender, soft, no organomegaly Extremities: + pedal edema (trace b/l ) Neurologic/Psychiatric: alert, oriented x 3 Laboratory Results Last 24 Hours Test 07/14/17 22:25 07/14/17 23:24 07/14/17 23:49 07/15/17 00:24 Bedside Glucose 121 mg/dl 92 mg/dl 93 mg/dl 116 mg/dl Test 07/15/17 01:13 07/15/17 02:13 07/15/17 03:14 07/15/17 04:32 Bedside Glucose 97 mg/dl 123 mg/dl 120 mg/dl 107 mg/dl Test 07/15/17 05:21 07/15/17 05:39 07/15/17 06:29 07/15/17 07:46 Sodium Level 140 mmol/L Potassium Level 4.3 mmol/L Chloride Level 109 mmol/L Carbon Dioxide Level 29 mmol/L Anion Gap 2.0 mmol/L Blood Urea Nitrogen 30 mg/dl Creatinine 1.03 mg/dl Est Creatinine Clear Calc Drug Dose 51.3 ml/min Estimated GFR () 61.2 Estimated GFR (Non- 52.8 BUN/Creatinine Ratio 28.7 Random Glucose 104 mg/dl Calcium Level 9.0 mg/dl Iron Level 58 mcg/dl Total Iron Binding Capacity 297 mcg/dl Transferrin 257 mg/dl Transferrin % Saturation 16 % Ferritin 113.5 ng/ml Bedside Glucose 108 mg/dl 117 mg/dl 97 mg/dl Test 07/15/17 09:07 07/15/17 10:01 07/15/17 11:11 07/15/17 12:29 Bedside Glucose 185 mg/dl 206 mg/dl 203 mg/dl 246 mg/dl Test 07/15/17 13:41 07/15/17 14:47 07/15/17 15:50 07/15/17 16:51 Bedside Glucose 270 mg/dl 231 mg/dl 242 mg/dl 170 mg/dl Test 07/15/17 17:56 Urine Color YELLOW Urine Appearance CLEAR Urine pH 5.0 Urine Specific [place] 1.022 Urine Protein NEG Urine Glucose (UA) 1+ Urine Ketones NEG Urine Occult Blood NEG Urine Nitrite NEG Urine Bilirubin NEG Urine Urobilinogen NEG Urine Leukocyte Esterase NEG Assessment and Plan 76yo female - 1. acute respiratory distress on 07/14/17 - Differential for yesterday's event - * bronchospasm (doubt) * reflux-induced laryngospasm - very possible * dysphagia with resulting aspiration - possible; speech evaluated today - probably has esophageal dysmotility * laryngeal dyskinesia - less likely * anxiety/panic - component of seems possible * cardiac - unlikely Appreciate Dr. Mojica's consult. CT chest essentially normal. no hypoxia. awaiting spirometry results. I spoke with Dr. Shannon - ENT - in light of ongoing dysphagia, chronic hoarse voice , etc - he will see her in consult tomorrow. Will obtain barium swallow in AM as well to assess anatomy, esophageal function , etc 2. recent bronchitis - resolved. Stop steroids. 3. chronic hoarse voice - differential includes reflux-induced vs post-nasal drip vs vocal cord lesion/tumor vs other. See above Re: ENT eval. 4. [place] - cont CPAP at HS. 5. uncontrolled T2DM - due to IV steroids; glycemic control consult appreciated. On insulin drip w/ improvement in BSGs; wean off today and transition back to SC insulin regimen. 6. minimal acute kidney injury - resolved with IVF. 7. positive troponin - suspect myocardial demand ischemia/type 2 MS from issues noted above. Doubt ACS. 8. morbid obesity w/ BMI 41 9. DVT proph - heparin TID. 10. microcytosis on CBC - iron studies wnl. Thalaseemia? 11. FEN - eating well, lytes stable, fluids off. 12. GERD - PPI. Barium swallow tomorrow; ENT eval; will need GI f/u as well. 13. HTN - labile, likely from steroids; follow; should improve with steroids off. 14. recent CT abd/pelvis - had air in bladder. She did NOT have recent instrumentation of urinary tract prior to this CT. U/a is normal making UTI unlikely; urine cx pending. [place]-vesicular fistula? If so this would explain recurrent UTIs. I will attempt to contact her urologist tomorrow about this. updated home tomorrow if stable, off insulin drip, etc ?? total time today reviewing records, speaking with ENT, discussing results w/ pt -- [address] [facility] stay due to: multiple IV medications needed Discharge planning: home
[2017-07-16 00:38] VITALS: BP 146/63; PULSE 78; TEMP 36.6; O2SAT 93
[2017-07-16 03:59] VITALS: BP 136/63; PULSE 74; TEMP 37; O2SAT 96
[2017-07-16] MEDS: HEPARIN SOD 5000 UNIT/0.5 ML CARP SQ SCH (05:45)
[2017-07-16 06:38] LABS: CALCIUM 8.8 mg/dl (8.5-10.1); CREATININE 1.27 mg/dl (0.60-1.20); POTASSIUM 3.8 mmol/L (3.5-5.1)
[2017-07-16] MEDS: ALBUT/IPRATROP 3MG/0.5MG NEB 3 ML VIAL INH SCH (07:11)
[2017-07-16 07:12] VITALS: PULSE 71; O2SAT 95
[2017-07-16] MEDS ORDERED: SODIUM CHLORIDE 0.65% NA SOLN 45 ML (OCEAN) PRN (07:45)
--- NOTE | 2017-07-16 08:00 | CONSULTATION REPORT ---
DATE OF CONSULTATION: 07/16/2017 DIAGNOSES: Septal deviation and chronic rhinitis with postnasal drainage and possible aspiration of mucus plug earlier this week. HISTORY OF PRESENT ILLNESS: This 76-year-old lady presented to the Emergency Room with shortness of breath. She was admitted for acute bronchitis and on July 13. She does have a long history of COPD, CHF and significant sleep apnea. Evidently, she had an episode of code purple on the morning of the where she was choking and could not breathe. Otherwise, the history is as noted on the chart. PMH: COPD, sleep apnea on CPAP 14 cm PHYSICAL EXAMINATION: GENERAL: Shows an obese female, in no acute distress. HEAD: Normocephalic. EARS: Pupils reactive. NOSE: Nasal passages show severe swollen turbinates with septal deviation to the right with obstruction. There is a significant amount of thick drainage into the posterior nasopharynx. Fiberoptic examination of the hypopharynx and vocal cords showed pink, although swollen vocal cords with no sign of polyps and no sign of lesions. There was evidence of thick mucus in the postcricoid area, spilling into the larynx, looks like thick post nasal drainage. IMPRESSION: Chronic rhinitis, most likely aggravated by the CPAP and her [employer]IES. I suspect that she had an aspiration of mucus plug on the . RECOMMENDATIONS: The patient should stop the azelastine which can actually make the mucus thicker and should start using copious amounts of saline nose spray and start using Flonase spray. She can be followed up in my office. Additionally, the patient is getting a barium swallow today to further rule out esophageal lesions causing the dysphagia. JUANA
[2017-07-16 08:04] VITALS: BP 161/81; PULSE 76; TEMP 36.4; O2SAT 91
--- NOTE | 2017-07-16 08:22 | DIAGNOSTIC IMAGING REPORT ---
(BARIUM SWALLOW) ESOPHAGUS CLINICAL HISTORY: severe dysphagia, choking episodes COMPARISON STUDY: None. FLUOROSCOPY TIME: 0.9 minutes.. FINDINGS: 25 fluoroscopic spot images. Mild cricopharyngeal dysfunction. Otherwise, the contours of the hypopharynx are within normal limits. The esophagus normal in course, caliber, and motility. Question mild area within the mid to distal esophagus is not confirmed on all images and therefore may be transient. No gastroesophageal reflux. No hiatus hernia. The patient deferred the barium tablet. IMPRESSION: Mild cricopharyngeal dysfunction. Otherwise normal barium swallow. Electronically signed by: Javy Mcdaniel M.D. 07/16/2017 8:21 AM Dictated Date/Time: 07/16/2017 8:18 AM
[2017-07-16] MEDS: METOPROLOL SUCC 25MG EXT REL TAB PO SCH (08:50)
[2017-07-16] MEDS: AZELASTINE HCL 0.1 % NASAL SPRAY SCH ×2 (08:50→08:52)
[2017-07-16] MEDS: GABAPENTIN 600 MG TAB PO SCH ×2 (08:51→13:02)
[2017-07-16] MEDS: PANTOprazole SOD 40 MG TAB PO SCH (08:51)
[2017-07-16] MEDS: ASPIRIN 81 MG ECTAB PO SCH (08:51)
[2017-07-16] MEDS: DULOXETINE HCL 20 MG CAP PO SCH (08:51)
[2017-07-16] MEDS ORDERED: FLUTICASONE PROPIONATE NA SPR 16 GM BTL SCH (09:00)
[2017-07-16] MEDS ORDERED: ALBUT/IPRATROP 3MG/0.5MG NEB 3 ML VIAL INH PRN (10:00)
[2017-07-16] MEDS: INSULIN ASPART 100 UNITS/ML 3 ML PEN SC SCH ×2 (10:12→13:04)
[2017-07-16 12:39] VITALS: BP 138/74; PULSE 77; TEMP 36.6; O2SAT 95
[2017-07-16] MEDS ORDERED: LEVA45AE PO (13:12)
[2017-07-16] MEDS ORDERED: SALI0.6510 (13:12)
[2017-07-16] MEDS ORDERED: FLNIN (13:12)
[2017-07-16] MEDS ORDERED: SPACMIS7 PO (13:12)
[2017-07-16 13:27] VITALS: BP 138/74; PULSE 77; TEMP 36.6; O2SAT 95
[2017-07-16] MEDS ORDERED: PRD10 PO (13:29)
--- NOTE | 2017-07-16 13:40 | Discharge Instructions ---
Discharge Instructions Date of Service Jul 16, 2017. Admission Reason for Admission: Shortness of Breath Discharge Discharge Diagnosis / Problem: Shortness of Breath due to post-nasal drip, laryngitis, recent bronchitis Discharge Goals Goal(s): Learn about illness, Diagnostic testing, Therapeutic intervention Activity Recommendations Activity Limitations: resume your previous activity (for the next 5-7 days I would recommend you avoid strenuous activities, heavy exertional activities, etc ; lite activities (walking, etc) are fine ) . Instructions / Follow-Up Instructions / Follow-Up From Dr. Billings - You were admitted due to shortness of breath. We performed an extensive work-up including the lung specialist (pulmonary) and ENT (ear/nose/throat) specialist evaluating you. Your CAT scan of the lungs was essentially normal. We are awaiting the final results of your spirometry breathing test but suspect it will be normal. Your barium swallow was largely normal except for some very mild dysfunction. Dr. Shannon performed a laryngoscopy showing significant swelling/inflammation of your nasal passages as well as your vocal cords. At this time Dr. Shannon feels your episodes of difficulty breathing/choking are due to severe mucous which leads to dripping into your throat. This causes cough and choking sensation. At this time please do the following - 1. stop your astelin nasal spray 2. start flonase nasal spray and take twice a day 3. use a saline nasal spray numerous times per day to keep your nose moist; this will allow mucous to come out more easily 4. take [id number]-mrrczvf mucinex up to 1200mg twice a day; this helps with cough and thins secretions 5. take prednisone for 5 days; start this TODAY * note that the prednisone WILL make your blood sugars rise * please adjust your insulins accordingly 6. you can use xopenex inhaler (via an aerochamber) - 2 puffs every 6 hours as needed for cough; again just use as needed Lastly, I did discuss your recent abdominal CAT scan with Dr. Mccauley, your urologist. She is going to look at the films. Please follow-up with her regarding any bladder problem you have Follow-up appointments - 1. see your family doctor within [address] Shannon within [address] Mccauley as scheduled Return to [facility] if - * you experience fever over 100.4 degrees * you have recurrent shortness of breath/difficulty breathing * your sinus symptoms seem to be worsening * any other concerns Current Hospital Diet Patient's current hospital diet: AHA Diet (Heart Healthy), Diabetes Type 2 Diet Discharge Diet Recommended Diet: Diabetes Type 2 Diet Procedures Procedures Performed: 1. echocardiogram - normal. 2. CAT scan of the chest - normal. 3. laryngoscopy by Dr. Shannon showing severe swelling of your nasal passageways and swelling/irritation of your vocal cords ("laryngitis"). No tumors seen. 4. barium swallow test - largely normal except for some very mild dysfunction as you initiate your swallow. 5. x-rays of hip and back - severe arthritis of back. Pending Studies Studies pending at discharge: no Laboratory Results Hemoglobin A1c Test 07/14/17 07:12 Range/Units Estimated Average Glucose 171 mg/dl Hemoglobin A1c 7.6 H 4.5-5.6 % Lipid Panel Test 07/14/17 07:12 Range/Units Triglycerides Level 86 0-150 mg/dl Cholesterol Level 111 0-200 mg/dl HDL Cholesterol 35 mg/dl Cholesterol/HDL Ratio 3.2 LDL Cholesterol, Calculated 59 mg/dl Medical Emergencies . Who to Call and When: Medical Emergencies: If at any time you feel your situation is an emergency, please call 911 immediately. . Non-Emergent Contact Non-Emergency issues call your: Primary Care Provider Call Non-Emergent contact if: temperature is above 100.5, you have any medication questions . . "Provider Documentation" section prepared by Silverio Billings. .
--- NOTE | 2017-07-17 12:44 | EDITING REQUIRED CODING QUERY ---
CODING QUERY FOR UNCONTROLLED DIABETES To promote full compliance with coding requirements relating to patient care, provider participation is requested in all cases of rebeamer uncertainty. Please assist us with the question(s) below: Coding Question: The term uncontrolled Diabetes was used throughout the record. To be able to code this diagnosis properly, could you please clarify the diagnosis below: ( ) Uncontrolled Diabetes meaning hypoglycemia ( x ) Uncontrolled Diabetes meaning hyperglycemia ( ) Other (please specify) Principal Diagnosis: "_that condition established after study, to be chiefly responsible for occasioning the admission of the patient to the hospital for care." Co-Existing Principal Diagnosis: "_when two or more diagnoses equally meet the criteria for principal diagnosis as determined by the circumstances of admission, diagnostic work up, and/or therapy provided, and the Alphabetic Index, Tabular List, or another coding guideline does not provide sequencing direction, any one of the diagnoses may be sequenced first." "When the physician has documented what appears to be a current diagnosis in the body of the record, but has not included the diagnosis in the final diagnostic statement, the physician should be asked whether the diagnosis should be added." (Source Coding [facility] 2 QTR90. p3-4)
--- NOTE | 2017-07-19 21:35 | Discharge Summary ---
Discharge Summary Date of Service Jul 19, 2017. Discharge Summary Admission Date: Jul 13, 2017 at 19:26 Discharge Date: Jul 16, 2017 Discharge Disposition: Home Principal Diagnosis: resolving bronchitis and laryngitis Problems/Secondary Diagnoses: 1. uncontrolled T2DM with hyperglycemia - improving 2. CAMRON on CPAP 3. minimal acute kidney injury - resolved 4. positive troponin - myocardial demand ischemia 5. morbid obesity with BMI 41 6. HTN 7. GERD 8. recent abnormal CT of the abd/pelvis - air bubbles in bladder, possibly due to urethral dysfunction - urology follow-up advised 9. anxiety disorder 10. diabetic peripheral neuropathy 11. lumbar spinal stenosis 12. acute respiratory distress - likely due to upper airway mucous plugging +/ - anxiety attack Immunizations: Have You Had Influenza Vaccine: Yes History of Tetanus Vaccine?: Yes History of Pneumococcal: Yes History of Hepatitis B Vaccine: No Procedures: 1. echocardiogram: * -- Conclusions -- * 1. Normal LV size. Mild concentric LVH.. * 2. Normal LV systolic function. LVEF 60-65 %. No regional wall motion abnormalities. * 3. Normal RV size and function. * 4. No significant valvular pathology. * 5. Grade 1 diastolic dysfunction. * 6. Compared with prior study on 05/14/2015: No significant change. 2. CT chest: IMPRESSION: 1. No acute intrathoracic pathology. 2. Bibasilar atelectasis. 3. Heterogeneity of bone marrow, nonspecific. Correlate for underlying metabolic abnormality or malignancy. 4. Hepatic steatosis. 3. Barium Swallow: IMPRESSION: Mild cricopharyngeal dysfunction. Otherwise normal barium swallow. 4. lumbar spine x-rays: IMPRESSION: 1. Multilevel degenerative changes of lumbar spine with osseous spinal canal and neural foraminal narrowing suggested. 2. No radiographic evidence of acute osseous injury. 5. right hip x-rays: IMPRESSION: 1. No acute osseous injury. 2. No advanced degenerative change. 6. direct laryngoscopy - Merlyn Shannon MD Consultations: pulmonary - Dyllan Mojica MD ENT - Merlyn Shannon MD PT, OT, speech Medication Reconciliation New Medications: Levalbuterol Tartrate (Levalbuterol Tartrate Hfa) 45 Mcg/Act Aer 2 PUFFS PO Q6H PRN for cough/wheeze, #1 INHALER 0 Refills Prednisone (Prednisone) 10 Mg Tab 10 MG PO DIRECTED, #9 TABS 0 Refills starting 07/16/17: take 3 tabs day 1, 2 tabs days 2/3, 1 tab days 4/. Spacer/Aerosol-Holding Chamber (Aerochamber Plus) 1 Mis Mis EA PO Q6H PRN for cough/wheeze, #1 0 Refills use with xopenex inhaler Fluticasone Propionate (Fluticasone Propionate) 50 Mcg/Act Spr 1 SPRAYS NA BID, #1 INHALER 5 Refills Saline ([place] Nasal [place]) 0.65 % Spr 2 SPRAYS NA Q3H PRN for Nasal Congestion, #1 INHALER purchase [id number] Continued Medications: Aspirin (Aspirin Ec) 81 Mg Tab 81 MG PO BID Calcium Carbonate (Tums) 500 Mg Chew 1000 MG PO UD PRN for Acid Reflux TAKE PER PACKAGE DIRECTIONS Cetirizine (Zyrtec) 10 Mg Tab 10 MG PO QPM, TAB Duloxetine Hcl (Cymbalta) 20 Mg Cap 40 MG PO QPM, CAP Duloxetine HCl (Duloxetine HCl) 20 Mg Cap 20 MG PO QAM Epinephrine (Epipen) 0.3 Mg/0.3 Ml Inj 0.3 MG IM UD PRN for Allergic Reaction, INJ Gabapentin (Gabapentin) 600 Mg Tab 600 MG PO QID Insulin Glargine (Lantus Solostar) 100 Unit/Ml Inj 64 UNITS SC HS Insulin Lispro (Human) (Humalog Kwikpen) 100 Unit/Ml Inj 1 DOSE SQ TIDM COVERAGE DIRECTED BY SLIDING SCALE Metoprolol Succinate (Metoprolol Succinate ER) 25 Mg Tabcr 25 MG PO DAILY Nitroglycerin (Nitrostat) 0.4 Mg Sub 0.4 MG UT UD PRN for Chest Pain, BTL Discontinued Medications: Azelastine Hcl (Astelin Nasal [place]) 200 Sprays/30 Ml [place] 2 SPRAYS RAJAT DAILY, BTL Discharge Exam Physical Exam: General Appearance: no apparent distress Eyes: + pertinent finding (strabismus, right eye) ENT: pharynx normal, + nasal congestion, + muffled/hoarse voice (hoarse) Neck: no JVD Respiratory/Chest: lungs clear, no respiratory distress, no accessory muscle use Cardiovascular: regular rate, rhythm, no gallop, no murmur, normal peripheral pulses Abdomen / GI: normal bowel sounds, non tender, soft, no organomegaly Extremities: no pedal edema Neurologic/Psychiatric: alert, oriented x 3, + pertinent finding (anxious ) Hospital Course HISTORY OF PRESENT ILLNESS: Patient is a pleasant 76 y/o female, with PMHx of T2DM w/ neuropathy, HTN, depression, and GERD, who presented to the ED because of persistent SOB. Patient recently finished a 10 day course of Doxycycline for bronchitis- she notes her cough (with green sputum production) has significantly improved since abx treatment. However, she continues to remain SOB. She denies any h/o asthma or COPD. She was a former smoker. Patient is in the process of outpatient pulmonary workup, but is delayed due to recent bronchitis. Yesterday, she was chasing her dog around the yard and because extremely SOB, extremely fatigued, and nauseous. She denies any cardiac history. She does follow w/ Dr. Hodge. In the past she was having episodes of chest pain, thought to be due to bronchospasms. +periodic wheezing. Patient denies any fever, chills, sweats, lightheadedness, dizziness, vision changes, palpitations, edema, abdominal pain , vomiting, diarrhea, urinary symptoms, melena, numbness/tingling, weakness, muscle/joint pain, anxiety/depression, active bleeding, or new skin discoloration/changes. HOSPITAL COURSE: The patient was initially treated for acute bronchitis but her main complaints were that of chronic hoarse voice, post-nasal drip/severe thick mucous of her throat, and intermittent dysphagia. She was seen in consult by pulmonary, ENT, and speech therapy. She underwent chest CT, PFTs, barium swallow, direct laryngoscopy, and bedside swallow evaluation. Although she probably had a component of acute bronchitis, a large part of her symptoms were due to laryngitis/post-nasal drip/allergies. Speech recommended a slippery diet for her cricopharyngeal dysphagia. Laryngoscopy revealed swollen turbinates, copious mucous spilling into the larynx, and inflamed vocal cords. On 07/14/17 the patient had a "code purple" in which she had severe shortness of breath. This acute respiratory distress event was likely due to a mucous plug from her upper airway. During the event there were no lower respiratory findings. The event was short-lived and resolved with supportive care only. After her laryngoscopy was completed by Dr. Shannon he recommended discontinuation of her astelin nasal spray and instead changing to saline nasal spray and a nasal steroid. At discharge the results of her PFTs were still pending. She will follow-up with her PCP, ENT, and urology after discharge (latter due to air bubbles in her bladder on CT scan of the abdomen/pelvis). Patient is aware of the need for urology follow-up due to the abnormal pelvic CT. All other medical problems remained stable while hospitalized except for her T2DM which was uncontrolled due to concomitant use of IV steroids. Pharmacy was consulted for glycemic management and she briefly required the use of IV insulin. Total Time Spent: Greater than 30 minutes This includes examination of the patient, discharge planning, medication reconciliation, and communication with other providers. Discharge Instructions Please refer to the electronic Patient Visit Report (Discharge Instructions) for additional information. Follow-Up 1. Dr. Shannon on SundayJuly 30 at 2:30 pm 2. Darwin BLANTON - SundayJuly 20 at 10:20 am Additional Copies To Darwin Lugo III, CRNP; Merlyn Shannon M.D.; Randa Mccauley MD; Perez Hodge M.D.
== END 2017-07-16 14:20 | disposition home or self-care (01) | DRG 190 ==
LOC: C.EDB 15:55 → C.2T 19:26 → ENRESERV 19:48
PROVIDERS: ADMIT Family Medicine; ATTEND Internal Medicine
DX: J44.0 Chronic obstructive pulmonary disease with (acute) lower respiratory infection (principal); I21.A1 Myocardial infarction type 2; N17.9 Acute kidney failure, unspecified; I24.8 Other forms of acute ischemic heart disease; Z68.41 Body mass index [BMI] 40.0-44.9, adult; E11.40 Type 2 diabetes mellitus with diabetic neuropathy, unspecified; I10 Essential (primary) hypertension; F32.9 Major depressive disorder, single episode, unspecified; K21.9 Gastro-esophageal reflux disease without esophagitis; R06.03 Acute respiratory distress; R49.0 Dysphonia; G47.33 Obstructive sleep apnea (adult) (pediatric); E66.01 Morbid (severe) obesity due to excess calories; E11.65 Type 2 diabetes mellitus with hyperglycemia; Z85.42 Personal history of malignant neoplasm of other parts of uterus; Z82.49 Family history of ischemic heart disease and other diseases of the circulatory system; Z87.891 Personal history of nicotine dependence; Z83.3 Family history of diabetes mellitus; F41.9 Anxiety disorder, unspecified

== ENCOUNTER → 2017-07-28 | Outpatient (CLI) | payer OTHER ==
[~2017-07-28] MED LIST changes: +ASPI81TA28 PO; -AZEL0.15 NAE; -BIOTCAP2 PO; +CALC500C3 PO; +CETI10TA84 PO; -CYM/30 PO; +CYM20 PO; -DOXY100C2 PO; +DULO-24 PO; +EPP3/2 IM; -ERGO1CAP35 PO; +FLNIN; -GABA-1220 PO; -INSDGI SC; +INSDGIPEN SC; +INSU100I2 SQ; -KRIL1000 PO; +LEVA45AE PO; -LORA10TA51 PO; -MAGN400T6 PO; -MULT-188 PO; +NITR0.4S UT; +NRN600 PO; +PRD10 PO; +SALI0.6510; +SPACMIS7 PO; +TPRSR/25 PO
[2017-07-28 13:39] LABS: POTASSIUM 3.8 mmol/L (3.5-5.1); SODIUM 139 mmol/L (136-145)
[2017-07-28 13:45] LABS: AST/SGOT 32 U/L (15-37)
[2017-07-28 13:48] LABS: ALBUMIN 3.1 gm/dl (3.4-5.0); ALKALINE PHOSPHATASE 57 U/L (45-117); ALT/SGPT 65 U/L (12-78); BLOOD UREA NITROGEN 22 mg/dl (7-18); CALCIUM 8.5 mg/dl (8.5-10.1); CARBON DIOXIDE 24 mmol/L (21-32); CREATININE 1.16 mg/dl (0.60-1.20); GLUCOSE 221 mg/dl (70-99); TOTAL PROTEIN 7.4 gm/dl (6.4-8.2)
== END | disposition home or self-care (01) ==
LOC: C.LAB1850 11:26
PROVIDERS: ATTEND Nurse Practitioner Family
DX: R53.83 Other fatigue (principal); N17.9 Acute kidney failure, unspecified

== ENCOUNTER 2017-08-02 14:43 | Inpatient (IN) | payer OTHER ==
[~2017-08-02] VITALS: Ht 157.5 cm; Wt 98.7 kg
[~2017-08-02 14:43] MED LIST changes: -TPRSR/25 PO
[2017-08-02] MEDS ORDERED: NITROGLYCERIN 2% OINTMENT 30GM TUBE EXT ONE (15:00)
--- NOTE | 2017-08-02 15:22 | DIAGNOSTIC IMAGING REPORT ---
SINGLE VIEW CHEST CLINICAL HISTORY: Atypical chest pain. FINDINGS: An AP, portable, upright chest radiograph is compared to study dated 07/13/2017 and correlated with chest CT dated 07/15/2017. The examination is degraded by portable technique and patient rotation. The cardiomediastinal silhouette is unremarkable. There is atherosclerotic calcification of the thoracic aorta. There is bibasilar scarring/atelectasis. The lungs and pleural spaces are otherwise clear. No pneumothorax is seen. The skeletal structures are osteopenic. The bony thorax is grossly intact. Degenerative change is noted throughout the thoracic spine. IMPRESSION: No active disease in the chest. Electronically signed by: Joey Patterson M.D. 08/02/2017 3:21 PM Dictated Date/Time: 08/02/2017 3:20 PM
[2017-08-02] MEDS ORDERED: MoRPHine SULFATE 2 MG/ML CARP IV STA (15:39)
[2017-08-02] MEDS ORDERED: LORAZEPAM 2 MG/ML 1 ML VIAL IV STA ×3 (15:39→22:37)
[2017-08-02] MEDS ORDERED: ESCI1TAB6 PO (15:54)
[2017-08-02 16:04] LABS: HEMATOCRIT 40.7 % (37-47); HEMOGLOBIN 13.2 g/dL (12.0-16.0); MEAN CORPUSCULAR HEMOGLOBIN 25.3 pg (25-34); MEAN CORPUSCULAR HGB CONC 32.4 g/dl (32-36); MEAN PLATELET VOLUME 9.3 fL (7.4-10.4); PLATELET COUNT 112 K/uL (130-400); RED CELL DISTRIBUTION WIDTH CV 15.5 % (11.5-14.5); RED CELL DISTRIBUTION WIDTH SD 43.9 fL (36.4-46.3); WHITE BLOOD COUNT 6.02 K/uL (4.8-10.8)
[2017-08-02] MEDS ORDERED: ASPI325T39 PO (16:06)
[2017-08-02] MEDS ORDERED: MELA3TAB12 PO (16:06)
[2017-08-02 16:13] LABS: INR 1.1 (0.9-1.1); PTT PATIENT 20.8 SECONDS (21.0-31.0)
[2017-08-02 16:22] LABS: ALBUMIN 3.2 gm/dl (3.4-5.0); CALCIUM 9.2 mg/dl (8.5-10.1); CREATININE 1.26 mg/dl (0.60-1.20); POTASSIUM 4.3 mmol/L (3.5-5.1)
[2017-08-02 16:27] LABS: TOTAL PROTEIN 7.6 gm/dl (6.4-8.2)
[2017-08-02] MEDS ORDERED: ALUMINUM/MAGNESIUM/SIMETH (MAALOX MAX) 30 ML UDC PO PRN (18:00)
[2017-08-02] MEDS ORDERED: MAGNESIUM HYDROXIDE SUSP 30 ML UDC PO PRN (18:00)
[2017-08-02] MEDS ORDERED: POLYETHYLENE (MIRALAX) 17 GM PACK PO PRN (18:00)
[2017-08-02] MEDS ORDERED: ACETAMINOPHEN 325 MG TAB PO PRN (18:00)
[2017-08-02] MEDS ORDERED: ONDANSETRON INJ 2 MG/ML 2 ML VIAL IV PRN (18:00)
[2017-08-02] MEDS ORDERED: NITROGLYCERIN 0.4 MG SL PER TAB CHARGE SL PRN (18:00)
--- NOTE | 2017-08-02 18:20 | History and Physical ---
History & Physical Date of Service August 02, 2017. History & Physical possible NSTEMI, anxiety, [id number]
[2017-08-02] MEDS ORDERED: NITROGLYCERIN 0.4 MG SL PER TAB CHARGE UT PRN (18:30)
[2017-08-02] MEDS ORDERED: HydrALAZINE HCL 20 MG/ML VIAL IV. PRN (18:30)
[2017-08-02] MEDS ORDERED: CALCIUM CARBONATE 500 MG CHEWABLE PO PRN (18:30)
[2017-08-02] MEDS ORDERED: LEValbuterol HFA 15GM INHALER INH PRN (18:30)
[2017-08-02] MEDS ORDERED: SODIUM CHLORIDE 0.65% NA SOLN 45 ML (OCEAN) PRN (18:30)
[2017-08-02] MEDS ORDERED: TPRSR/25 PO (18:57)
[2017-08-02] MEDS ORDERED: GLUCOSE 40% GEL 15 GM TUBE PO PRN (19:00)
[2017-08-02] MEDS ORDERED: GLUCAGON FOR INJ 1 MG VIAL IM PRN (19:00)
[2017-08-02] MEDS ORDERED: GLUCOSE 10 TABS/TUBE PO PRN (19:00)
[2017-08-02] MEDS ORDERED: DEXTROSE 50% 50 ML SYR IV PRN (19:00)
[2017-08-02] MEDS ORDERED: CARBOHYDRATES FOR HYPOGLYCEMIA PO PRN (19:00)
[2017-08-02 19:05] VITALS: BP 170/74; PULSE 83; TEMP 36.9; O2SAT 93; Ht 157.5 cm; Wt 98.7 kg
[2017-08-02 19:09] VITALS: BP 170/74; PULSE 83; TEMP 36.9; O2SAT 93
--- NOTE | 2017-08-02 19:11 | EMERGENCY ROOM VISIT NOTE ---
History Report prepared by Cindy: Giles Ernst Under the Supervision of: Dr. Joey Sanches M.D. First contact with patient: 14:53 Chief Complaint: CHEST PAIN Stated Complaint: TIGHTNESS IN CHEST, SOB Nursing Triage Summary: pt reports an elaphant on her chest started this am at 1000, has sob. tingling in hands ,numb arms took 2 reg strength asa has hx of afib sees dr ace. called office not avail told to come to ed was recently admitted for 4 days for similiar sx. has hx of anxiety History of Present Illness The patient is a 76 year old female who presents to the Emergency Room with complaints of constant chest pressure and stabbing pain beginning 5 hours ago. She currently rates her discomfort a 10/10 in severity. The patient states she was making breakfast when she became short of breath. She reports she then experienced weakness in her arms, nausea, sweating, numbness in her hands, and her chest discomfort. The patient notes it feels like she has an elephant sitting on her chest. She states she took two normal dose aspirin, and it did not help. The patient reports she has nitroglycerin and did not think to use it. She notes he was sent here by Dr. Ace's Cardiology office, and she was recently hospitalized for 4 days because of bronchitis. The patient states she has also had increased swelling in her legs. She reports she has a history of diabetes. The patient denies a history of a heart attack, anxiety, or having a stress test performed. She notes she was supposed to have a stress test, but she did not have it scheduled. Source of History: patient Onset: 5 hours ago Position: chest Symptom Intensity: 10/10 Quality: pressure (like an elephant sitting on her chest), stabbing Timing: constant Associated Symptoms: + SOB, + nausea, + weakness (arms), + numbness (hands) Note: Associated symptoms: sweating, increased swelling in her legs Review of Systems See HPI for pertinent positives & negatives. A total of 10 systems reviewed and were otherwise negative. Past Medical & Surgical Medical Problems: (1) Bronchitis (2) Cancer (3) Diabetes (4) History of benign brain tumor (5) History of spinal stenosis (6) History of uterine cancer (7) Hypertension (8) Neuropathy (9) NSTEMI, anxiety Surgical Problems: (1) History of hysterectomy Family History Diabetes mellitus FH: cancer FH: heart disease FHx: gallbladder disease Hypertension Kidney disease Kidney stones Social History Smoking Status: Former Smoker Alcohol Use: none Drug Use: none Marital Status: Housing Status: lives with family Occupation Status: retired Current/Historical Medications Scheduled Aspirin (Aspirin Ec), 81 MG PO BID Aspirin (Aspirin Ec), 650 MG PO TODAY Cetirizine (Zyrtec), 10 MG PO QPM Duloxetine Hcl (Cymbalta), 40 MG PO QPM Escitalopram Oxalate (Lexapro), 5 MG PO DAILY Fluticasone Propionate (Fluticasone Propionate), 1 SPRAYS NA BID Gabapentin (Gabapentin), 600 MG PO QID Insulin Glargine (Lantus Solostar), 64 UNITS SC HS Insulin Lispro (Human) (Humalog Kwikpen), 1 DOSE SQ TIDM Melatonin-Pyridoxine (Melatonin), 1 TAB PO HS Metoprolol Succinate (Metoprolol Succinate ER), 25 MG PO QPM Scheduled PRN Calcium Carbonate (Tums), 1,000 MG PO UD PRN for Acid Reflux Epinephrine (Epipen), 0.3 MG IM UD PRN for Allergic Reaction Levalbuterol Tartrate (Levalbuterol Tartrate Hfa), 2 PUFFS PO Q6H PRN for cough/ wheeze Nitroglycerin (Nitrostat), 0.4 MG UT UD PRN for Chest Pain Saline ([place] Nasal [place]), 2 SPRAYS NA Q3H PRN for Nasal Congestion Allergies Coded Allergies: Meperidine and Related (Unverified Allergy, Severe, almost "closed throat ", 11/10/14) Midodrine (Unverified Allergy, Severe, "almost closed throat", 11/10/14) Penicillins (Unverified Allergy, Severe, ANAPHYLAXIS, 11/10/14) Quinolones (Verified Allergy, Severe, TOLERATED LEVAQUIN IV - SEP 06, 11/10) CIPRO-THROAT CLOSED Sulfamethoxazole w/Trimethoprim (Verified Allergy, Severe, THROAT CLOSED, 05/14/15) Diphenoxylate (Verified Allergy, Intermediate, 11/10/14) Replaces DIPHENOXYLATE2 PINS & NEEDLES, DIFFICULTY BREATHING Glyburide (Verified Allergy, Intermediate, 11/10/14) GLUCOVANCE-PINS AND NEEDLES,DIFFICULTY BREATHING Metformin (Verified Allergy, Intermediate, 11/10/14) GLUCOVANCE-PINS & NEEDLES,DIFFICULTY BREATHING ALSO GLUCOPHAGE XR-EXTREME ABDOMINAL PAIN Nitrofurantoin (Verified Allergy, Intermediate, 11/10/14) RASH Oxycodone (Verified Allergy, Intermediate, 11/10/14) SEVERE RASH Paroxetine (Verified Allergy, Intermediate, 11/10/14) PINS & NEEDLES, DIFFICULTY BREATHING Ranitidine (Verified Allergy, Intermediate, 11/10/14) RASH Repaglinide (Verified Allergy, Intermediate, 11/10/14) PINS &NEEDLES, DIFFICULTY BREATHING Rosiglitazone (Verified Allergy, Intermediate, 11/10/14) PINS & NEEDLES, DIFFICULTY BREATHING Temazepam (Verified Allergy, Intermediate, 11/10/14) PINS & NEEDLES, DIFFICULTY BREATHING DENILSON Inhibitors (Unverified Allergy, Unknown, unknown to pt, 11/10/14) Atropine (Verified Allergy, Unknown, 11/10/14) H2 Antagonists (Unverified Allergy, Unknown, unknown to pt, 11/10/14) Iodinated Diagnostic Agents (Verified Allergy, Unknown, `, 05/14/15) Phenazopyridine (Verified Allergy, Unknown, 11/10/14) Carbamazepine (Verified Adverse Reaction, Severe, 11/10/14) TOO HARD ON DIGESTIVE TRACT-ALSO IN COMBO WITH DEPAKOTE ER CAUSED PLATELET COUNT TO DROP VERY LOW Valproate Derivatives (Verified Adverse Reaction, Severe, 11/10/14) COULDN'T WAKE UP-ALSO DEPAKOTE ER WITH TEGRETOL CAUSED PLATELET COUNT TO DROP VERY LOW Albuterol (Verified Adverse Reaction, Intermediate, 11/10/14) HEART PALPITATIONS Olanzapine (Verified Adverse Reaction, Intermediate, 11/10/14) COULDN'T WAKE UP, HALLUCINATIONS Rofecoxib (Verified Adverse Reaction, Intermediate, 11/10/14) RAISES BLOOD PRESSURE Diazepam (Verified Adverse Reaction, Mild, SEDATION LASTING TOO LONG, 11/10) COULDN'T WAKE UP Ibuprofen (Verified Adverse Reaction, Mild, 11/10/14) SICK STOMACH Lisinopril (Verified Adverse Reaction, Mild, 11/10/14) EXCESSIVE HUNGER Mirtazapine (Verified Adverse Reaction, Mild, 06/17/13) SEVERE DRY MOUTH Physical Exam Vital Signs Date Time Temp Pulse Resp B/P (MAP) Pulse Ox O2 Delivery O2 Flow Rate FiO2 08/02/17 16:19 79 20 179/66 94 Room Air 08/02/17 15:09 96 Room Air 08/02/17 15:09 78 24 176/83 96 Room Air 08/02/17 14:45 36.6 77 20 136/82 97 Room Air Physical Exam GENERAL: Patient is in no acute distress. Mildly anxious. HEENT: No acute trauma, normocephalic atraumatic, mucous membranes moist, no nasal congestion, no scleral icterus. NECK: No stridor, no adenopathy, no meningismus, trachea is midline. LUNGS: Clear to auscultation bilaterally, no wheeze, no rhonchi, breath sounds equal. HEART: Without murmurs gallops or rubs, regular rate and rhythm. ABDOMEN: Soft, nontender, bowel sounds positive, no hernias, no peritonitis. EXTREMITIES: No cyanosis. Mild bilateral pedal edema, full range of motion of all the joints without pain or difficulty, no signs for acute trauma. NEUROLOGIC: Oriented x 3, no acute motor or sensory deficits, no focal weakness. SKIN: No rash, no jaundice, no diaphoresis. Medical Decision & Procedures ER Provider Diagnostic Interpretation: X-ray results as stated below per interpretation by me and the radiologist: SINGLE VIEW CHEST CLINICAL HISTORY: Atypical chest pain. FINDINGS: An AP, portable, upright chest radiograph is compared to study dated 07/13/2017 and correlated with chest CT dated 07/15/2017. The examination is degraded by portable technique and patient rotation. The cardiomediastinal silhouette is unremarkable. There is atherosclerotic calcification of the thoracic aorta. There is bibasilar scarring/atelectasis. The lungs and pleural spaces are otherwise clear. No pneumothorax is seen. The skeletal structures are osteopenic. The bony thorax is grossly intact. Degenerative change is noted throughout the thoracic spine. IMPRESSION: No active disease in the chest. Electronically signed by: Joey Patterson M.D. 08/02/2017 3:21 PM Dictated Date/Time: 08/02/2017 3:20 PM Laboratory Results 08/02/17 15:50 08/02/17 15:50 Test 08/02/17 15:50 Red Blood Count 5.22 M/uL (4.2-5.4) Mean Corpuscular Volume 78.0 fL (80-100) Mean Corpuscular Hemoglobin 25.3 pg (25-34) Mean Corpuscular Hemoglobin Concent 32.4 g/dl (32-36) RDW Standard Deviation 43.9 fL (36.4-46.3) RDW Coefficient of Variation 15.5 % (11.5-14.5) Mean Platelet Volume 9.3 fL (7.4-10.4) Prothrombin Time 11.5 SECONDS (9.0-12.0) Prothromb Time International Ratio 1.1 (0.9-1.1) Activated Partial Thromboplast Time 20.8 SECONDS (21.0-31.0) Partial Thromboplastin Ratio 0.8 D-Dimer 490 ug/L FEU (0-500) Anion Gap 6.0 mmol/L (3-11) Est Creatinine Clear Calc Drug Dose 48.6 ml/min Estimated GFR () 47.9 Estimated GFR (Non- 41.4 BUN/Creatinine Ratio 19.1 (10-20) Calcium Level 9.2 mg/dl (8.5-10.1) Magnesium Level 1.9 mg/dl (1.8-2.4) Total Bilirubin 0.7 mg/dl (0.2-1) Aspartate Amino Transf (AST/SGOT) 47 U/L (15-37) Alanine Aminotransferase (ALT/SGPT) 64 U/L (12-78) Alkaline Phosphatase 65 U/L (45-117) Pro-B-Type Natriuretic Peptide 62 pg/ml (0-1800) Total Protein 7.6 gm/dl (6.4-8.2) Albumin 3.2 gm/dl (3.4-5.0) Globulin 4.4 gm/dl (2.5-4.0) Albumin/Globulin Ratio 0.7 (0.9-2) Laboratory results reviewed by me. Medications Administered Medications (Trade) Dose Ordered Sig/Brittany Route Start Time Stop Time Status Last Admin Dose Admin Nitroglycerin (Nitroglycerin 2% Oint) 1 inch NOW ONCE EXT 08/02/17 15:00 08/02/17 15:04 DC 08/02/17 15:11 1 INCH Morphine Sulfate (MoRPHine SULFATE INJ) 2 mg NOW STAT IV 08/02/17 15:39 08/02/17 15:41 DC 08/02/17 15:49 2 MG Lorazepam (Ativan Inj) 0.5 mg NOW STAT IV 08/02/17 15:39 08/02/17 15:41 DC 08/02/17 15:48 0.5 MG Zolpidem Tartrate (Ambien Tab) 5 mg HSZ PRN PO 08/02/17 18:00 09/01/17 17:59 08/02/17 20:32 5 MG ECG Per My Interpretation Indication: chest pain Rate (beats per minute): 77 Rhythm: normal sinus Findings: no ectopy, other (T-wave flattening laterally) Comparison ECG Date: 07/15/2017 Change: T-wave flattening is new. Repeat EKG in the same visit: Normal sinus with a rate of 70. Flat T-waves laterally. No ST elevation. No ectopy. Unchanged from earlier. ED Course 1454: The patient was evaluated in room C06. A complete history and physical exam was performed. 1500: Ordered Nitroglycerin 1in EXT 1539: Ordered Morphine Sulfate 2mg IV, Ativan 0.5mg IV 1557: I reevaluated the patient and reassured her she is okay. Her is holding her hand. I am going to give her more Ativan. 1605: Ordered Ativan 0.5mg IV 1638: I discussed the patient's case with Dr. Bustamante, Cardiology. He felt the patient is able to be evaluated by the hospitalist with a cardiology consult. 1644: I discussed the patient's case with Dr. Hernandes, [facility] Hospitalist. The patient will be evaluated for further management and care. 1702: Upon reexamination the patient is resting, feeling better, and more relaxed. I discussed results and treatment plan with the patient. She verbalizes agreement and understanding. The patient will be evaluated for further management. Medical Decision The patient is a 76 year old female who presents to the ED with complaints of chest pain and pressure. Differential diagnoses considered include angina, LA, anxiety, electrolyte imbalance, PE, anemia, heart failure. There is no leukocytosis or concerning anemia. No significant electrolyte abnormality or kidney failure. No hepatitis. EKG shows a normal sinus rhythm with some flattening of the T waves laterally-these flat T waves were new findings. Cardiac enzyme testing 1 is slightly elevated. Chest film does not show mediastinal widening, pneumonia or pneumothorax. The patient presents with chest pressure. She does have some subtle EKG changes and an elevation to her cardiac troponin. She received Nitropaste. No additional aspirin was given as she had taken 2 full strength aspirins before arrival. She required morphine for additional pain control, Ativan for anxiety. The patient has had chest pain which is concerning for angina/cardiac ischemia. She also is quite anxious and that is compounding her presentation. She is doing better now I do think is currently stable. I discussed her case with cardiology. I talked with the on-call hospitalist. Case management has been involved. Hospitalization is warranted. Medication Reconcilliation Current Medication List: was personally reviewed by me Blood Pressure Screening Patient's blood pressure: Elevated blood pressure Monitored by hospitalist. Consults Time Called: 1635 Consulting Physician: Dr. Bustamante, Cardiology Returned Call: [phone] I discussed the patient's case with Dr. Bustamante, Cardiology. He felt the patient is able to be evaluated by the hospitalist with a cardiology consult. Additional Consults: Time Called: 1639 Consulted Physician: Dr. Hernandes, [facility] Hospitalist Returned Call: [phone] Additional Comments: I discussed the patient's case with Dr. Hernandes, [facility] Hospitalist. The patient will be evaluated for further management and care. Impression Primary Impression: Precordial chest pain Additional Impressions: Elevated troponin level Anxiety Scribe Attestation The scribe's documentation has been prepared under my direction and personally reviewed by me in its entirety. I confirm that the note above accurately reflects all work, treatment, procedures, and medical decision making performed by me. Departure Information Dispostion Being Evaluated By Hospitalist Referrals Dawrin Lugo III, CRNP (PCP) Patient Instructions My [facility] Problem Qualifiers
--- NOTE | 2017-08-02 19:40 | HISTORY & PHYSICAL EXAMINATION ---
DATE OF ADMISSION: 08/02/2017 This is an observation H&P, 35 minutes. CHIEF COMPLAINT: Chest pain/heaviness, and anxiety. HISTORY OF PRESENT ILLNESS: The patient is a 76-year-old white female with a significant past medical history of obesity, uncontrolled type 2 diabetes, obstructive sleep apnea, on CPAP machine, hypertension, GERD, anxiety disorder, diabetic neuropathy, lumbar spine stenosis, and history of acute respiratory distress secondary to upper airway mucus plug, coming to the hospital Emergency Department because of the above chief complaint. She reported started having chest tightness since 10 o'clock this morning. The chest tightness is 10/10, which started after her breakfast. She also reported has difficulty breathing which was associated with nausea, sweating, numbness in her hands, and weakness in her bilateral arms. Describing to us like elephant sitting on her chest. She has been taking normal dose of aspirin at home which does not help. She was tried nitroglycerin but did not help. The patient followed up at Dr. Hodge's office. Recent hospitalization for 4 days because of bronchitis. The patient reports has increased lower extremity swelling. There was no calf pain. History of diabetes. Denied history of heart attack or anxiety. Denied ever having a stress test performed. She reports she is supposed to have a stress test scheduled but has not been scheduled yet. In the Emergency Room, patient was having accelerated hypertension, blood pressure up to 179/66. She was anxious. She got 1 dose of nitroglycerin sublingual which helped a little bit. She got morphine in the Emergency Room too. When I interviewed with her, she reports to me the chest tightness did not anyhow release. She is anxious. Still has 10/10 chest tightness, however, when she talked to me, she was smiling, conversational, speaking in full sentence. Denied fever or chills. Denied any neck pain or arm weakness. Denied facial droop, slurry speeches. Denied cough or sputum, denied wheezing. Denied nausea, vomiting, abdominal pain, diarrhea, constipation. Denied dysuria, urgency, and frequency; however, she did report as very anxious. PAST MEDICAL HISTORY: bronchitis, uncontrolled diabetes, obstructive sleep apnea , on CPAP machine, recent history of elevated troponin, possible myocardial or demand ischemia, morbid obesity, hypertension, GERD, recent air bubbles in the bladder, possibly due to urethral dysfunction, anxiety, diabetic peripheral uropathy, lumbar spinal stenosis, acute respiratory distress with mucus plug. ALLERGIES: DENILSON INHIBITOR, ALBUTEROL, ATROVENT, CARBAMAZEPINE, DIAZEPAM, DIPHENOXYLATE, GLYBURIDE, H2 ANTAGONIST, IBUPROFEN, IODINATED DIAGNOSTIC AGENT, LISINOPRIL, MEPERIDINE, RANITIDINE, METFORMIN, MIDODRINE, MIRTAZEPAM., NITROFURANTOIN, OLANZAPINE. PAST SURGICAL HISTORY: Includes history of hysterectomy and bilateral mastectomy. FAMILY HISTORY: Includes diabetes, cancer, heart disease, gallbladder disease, hypertension, kidney disease, and kidney stone. SOCIAL HISTORY: Remote smoker, quit years ago. Denied tobacco abuse disorder, denied alcohol abuse disorder, denied illicit drug abuse. MEDICATIONS: Currently taking at home include aspirin 81 mg p.o. b.i.d., Zyrtec 10 mg p.o. q.p.m., Cymbalta 40 mg p.o. q.p.m., Lexapro 5 mg p.o. daily, fluticasone 1 spray nasal spray b.i.d., gabapentin 600 mg p.o. q.i.d., glargine 64 units subcu at bedtime, Humalog 1 dose subcu t.i.d., melatonin 1 tablet p.o. at bedtime, metoprolol 25 mg p.o. q.p.m. Medicines taken as needed include calcium carbonate 1000 mg to use as directed for acid reflux, ephedrine 0.3 mg to use as directed p.r.n. for allergic reactions, levalbuterol 2 puffs q.6 h. p.r.n. for cough and wheezing, nitroglycerin 0.4 mg sublingual to use as directed for chest pain, [place] nasal spray 2 sprays q.3 h. p.r.n. for nasal congestion. PHYSICAL EXAMINATION: VITAL SIGNS: Temperature 36.6, pulse 77, respiration rate 20, blood pressure 136/82, pulse oximetry was 97% in room air. GENERAL: The patient is white female, in no acute distress, mildly anxious, obesity. HEENT: Head was normocephalic. Pupils equal, round, responsive to light. Sclerae were not icterus. Ears were normal. Nose was normal. NECK: Supple. No adenopathy. Trachea midline. RESPIRATORY: Lungs with decreased breathing sounds. There was no wheezing, rhonchi, or crackles. CARDIOVASCULAR: Heart with regular rhythm, S1 and S2, no murmur, no gallop, no rub. GASTROINTESTINAL: Abdomen was soft and nontender. Bowel sounds positive. EXTREMITIES: Lower extremities with 1 to 2+ edema. Calf was nontender. There was no clubbing, no cyanosis. NEUROLOGIC: Cranial nerves II through XII intact. There were no focal deficits. SKIN: He has no rashes. IMAGING: Chest x-ray shows no acute disease in the chest. LABORATORY DATA: WBC is 6, hemoglobin 13, platelets 112. Sodium 138, potassium 4.3, BUN 24, creatinine 1.26, blood glucose 211. Magnesium 1.9. Liver function test was unremarkable. Troponin was 0.047. Total protein 7.6, albumin 3.2, globulin is 4.4. ASSESSMENT: A 76-year-old white female with the conditions below: 1. Chest tightness with minimal elevated troponin, possible [id number] myocardial infarction. EKG has no ST-T phase changes. Ddimer negative has rule out acute pulmonary embolization. 2. Anxious. Differential diagnosis includes pulmonary embolism. Has checked D-dimer. Which is negative essentially rule out PE. 3. Accelerated hypertension. 4. Severe anxiety. 5. Mildly elevated BUN and creatinine, which is chronic kidney disease stage III in the baseline. 6. for hx of uncontrolled diabetes, obstructive sleep apnea, on CPAP machine, GERD, anxiety, diabetic peripheral neuropathy, lumbar spinal stenosis, stable we will continue home PLAN: 1. will keep in observation, home comfort advisor, cardiac enzymes, troponin x2 sets more. Continue current home medications which include aspirin and metoprolol. We will add an ARB in stread of DENILSON inhibitor which is an allergy for better blood pressure control. 2. Will continue home dose of insulin, diabetic diet, start sliding scale. 3. For anxiety and shortness of breath, like I mentioned we have checked D-dimer which has rule out PE. 4. Like I mentioned, for other medical conditions such as spinal stenosis, neuropathy, we will continue home medications. Discussed with patient and about patient's conditions and care plan, answered all the questions. Patient is full code. [facility]
[2017-08-02] MEDS: GABAPENTIN 600 MG TAB PO SCH (20:21)
[2017-08-02] MEDS: ASPIRIN 81 MG ECTAB PO SCH (20:21)
[2017-08-02] MEDS: DULOXETINE HCL 20 MG CAP PO SCH (20:21)
[2017-08-02] MEDS: FLUTICASONE PROPIONATE NA SPR 16 GM BTL SCH (20:21)
[2017-08-02] MEDS: CETIRIZINE HCL 10 MG TAB PO SCH (20:22)
[2017-08-02] MEDS: ENOXAPARIN 40 MG/0.4 ML SYR SC SCH (20:22)
[2017-08-02] MEDS: INSULIN GLARGINE SOLOSTAR 100 UNITS/ML 3 ML PEN SC SCH (20:29)
[2017-08-02] MEDS: ZOLPIDEM TARTRATE 5 MG TAB PO PRN (20:32)
[2017-08-02] MEDS ORDERED: NON-FORMULARY MEDICATION (Melatonin-Pyridoxine (Melatonin) 1 TAB) PO SCH (21:00)
[2017-08-02] MEDS ORDERED: METOPROLOL SUCC 25MG EXT REL TAB PO SCH (21:00)
[2017-08-02 22:07] VITALS: BP 116/72; PULSE 106; O2SAT 97
[2017-08-02] MEDS: MoRPHine SULFATE 2 MG/ML CARP IV PRN (22:16)
[2017-08-02] MEDS ORDERED: LORAZEPAM 2 MG/ML 1 ML VIAL ONE (22:36)
[2017-08-02 23:32] VITALS: BP 157/71; PULSE 105; TEMP 36.7; O2SAT 97
[2017-08-02 23:59] VITALS: O2SAT 97
[2017-08-03] VITALS (10 sets, daily range): BP systolic 125–178; BP diastolic 54–80; PULSE 70–98; TEMP 36.4–37.2; O2SAT 92–97
[2017-08-03 00:03] LABS: CKMB 1.7 ng/ml (0.5-3.6)
[2017-08-03] MEDS ORDERED: TRAZODONE HCL 50 MG TAB PO PRN (00:15)
[2017-08-03 07:17] LABS: CALCIUM 9.3 mg/dl (8.5-10.1); CREATININE 1.16 mg/dl (0.60-1.20); POTASSIUM 3.6 mmol/L (3.5-5.1)
[2017-08-03 07:26] LABS: CKMB 1.8 ng/ml (0.5-3.6); PHOSPHORUS 3.7 mg/dl (2.5-4.9)
[2017-08-03] MEDS: ASPIRIN 81 MG ECTAB PO SCH ×2 (07:40→20:26)
[2017-08-03] MEDS: FLUTICASONE PROPIONATE NA SPR 16 GM BTL SCH ×2 (07:41→20:23)
[2017-08-03] MEDS: ESCITALOPRAM OXALATE 10 MG TAB PO SCH (07:41)
[2017-08-03] MEDS: GABAPENTIN 600 MG TAB PO SCH ×4 (07:41→20:27)
[2017-08-03] MEDS: LOSARTAN POTASSIUM 25 MG TAB PO SCH (07:41)
[2017-08-03] MEDS ORDERED: ASPIRIN 81 MG ECTAB PO SCH (09:00)
[2017-08-03] MEDS ORDERED: INSULIN ASPART 100 UNITS/ML 3 ML PEN SC SCH (11:00)
--- NOTE | 2017-08-03 11:12 | Family Medicine Progress Note ---
Progress Note Date of Service August 03, 2017. Subjective Pt evaluation today including: conversation w/ patient, physical exam, chart review, lab review Patient says that her chest pain continued overnight. Describes it as bilateral pressure under her breast line. Says that she has been having this pain for awhile in the evenings following taking her metoprolol. She remarks that she has also noticed increased swelling in bilateral lower extremities. Constitutional: No fever, No chills, No sweats Respiratory: + shortness of breath, + dyspnea on exertion, No cough, No sputum, No wheezing Cardiovascular: + chest pain, No palpitations Abdomen: + nausea, No pain, No vomiting, No diarrhea Female : No dysuria, No urinary frequency Medications Current Inpatient Medications Medications (Trade) Dose Ordered Sig/Brittany Route Start Time Stop Time Status Last Admin Dose Admin Enoxaparin Sodium (Lovenox Inj) 40 mg QPM SC 08/02/17 21:00 09/01/17 20:59 08/02/17 20:22 40 MG Acetaminophen (Tylenol Tab) 650 mg Q4H PRN PO 08/02/17 18:00 09/01/17 17:59 Al Hydrox/Mg Hydrox/Simethicone (Maalox Max Susp) 15 ml Q4H PRN PO 08/02/17 18:00 09/01/17 17:59 Magnesium Hydroxide (Milk Of Magnesia Susp) 30 ml Q12H PRN PO 08/02/17 18:00 09/01/17 17:59 Zolpidem Tartrate (Ambien Tab) 5 mg HSZ PRN PO 08/02/17 18:00 09/01/17 17:59 08/02/17 20:32 5 MG Ondansetron HCl (Zofran Inj) 4 mg Q6H PRN IV 08/02/17 18:00 09/01/17 17:59 Nitroglycerin (Nitrostat Tab) 0.4 mg UD PRN SL 08/02/17 18:00 09/01/17 17:59 Morphine Sulfate (MoRPHine SULFATE INJ) 2 mg Q30M PRN IV 08/02/17 18:00 08/16/17 17:59 08/02/17 22:16 2 MG Polyethylene (Miralax Powder Packet) 17 gm DAILY PRN PO 08/02/17 18:00 09/01/17 17:59 Hydralazine HCl (HydrALAZINE INJ) 20 mg Q6 PRN IV. 08/02/17 18:30 09/01/17 18:29 08/02/17 21:14 20 MG Losartan Potassium (coZAAR TAB) 25 mg QAM PO 08/03/17 09:00 09/02/17 08:59 08/03/17 07:41 25 MG Aspirin (Ecotrin Tab) 81 mg BID PO 08/02/17 21:00 09/01/17 20:59 08/03/17 07:40 81 MG Calcium Carbonate (Tums Chew Tab) 1,000 mg Q4H PRN PO 08/02/17 18:30 09/01/17 18:29 Cetirizine HCl (zyrTEC TAB) 10 mg QPM PO 08/02/17 21:00 09/01/17 20:59 Duloxetine HCl (Cymbalta Cap) 40 mg QPM PO 08/02/17 21:00 09/01/17 20:59 08/02/17 20:21 40 MG Escitalopram Oxalate (Lexapro Tab) 5 mg DAILY PO 08/03/17 09:00 09/02/17 08:59 08/03/17 07:41 5 MG Fluticasone Propionate (Flonase Nasal Friendship) 1 sprays BID NA 08/02/17 21:00 09/01/17 20:59 08/03/17 07:41 1 SPRAYS Gabapentin (Neurontin Tab) 600 mg QID PO 08/02/17 21:00 09/01/17 20:59 08/03/17 07:41 600 MG Insulin Glargine (Lantus Solostar Pen) 64 units HS SC 08/02/17 21:00 09/01/17 20:59 08/02/17 20:29 64 UNITS Levalbuterol (Xopenex Hfa Inhaler) 2 puffs Q6H PRN INH 08/02/17 18:30 09/01/17 18:29 Metoprolol Succinate (Toprol Xl Tab) 25 mg QPM PO 08/02/17 21:00 09/01/17 20:59 08/02/17 20:21 25 MG Sodium Chloride (Acequia Nasal Friendship) 2 sprays Q3H PRN NA 08/02/17 18:30 09/01/17 18:29 Glucose (Glucose 40% Gel) 15-30 GRAMS 15 GRAMS... UD PRN PO 08/02/17 19:00 09/01/17 18:59 Glucose (Glucose Chew Tab) 4-8 Tablets 4 Tabl... UD PRN PO 08/02/17 19:00 09/01/17 18:59 Dextrose (Dextrose 50% 50ML Syringe) 25-50ML 25ML FOR ... UD PRN IV 08/02/17 19:00 09/01/17 18:59 Glucagon (Glucagon Inj) 1 mg UD PRN IM 08/02/17 19:00 09/01/17 18:59 Carbohydrates (Carbohydrates For Hypoglycemia) 15-30 GRAMS 15 grams if BSG 54-69... UD PRN PO 08/02/17 19:00 09/01/17 18:59 Trazodone HCl (Desyrel Tab) 25 mg QPM PRN PO 08/03/17 00:15 09/02/17 00:14 Insulin Aspart (novoLOG ASPART) SLIDING SCALE G... ACHS SC 08/03/17 11:00 09/02/17 10:59 UNV Objective Vital Signs Date Time Temp Pulse Resp B/P (MAP) Pulse Ox O2 Delivery O2 Flow Rate FiO2 08/03/17 08:00 Room Air 08/03/17 07:04 36.7 81 18 178/71 (106) 96 Room Air 08/03/17 04:00 Nasal Cannula 2.0 08/03/17 03:31 36.7 89 18 145/62 (89) 93 89 08/03/17 00:18 98 97 2.0 08/02/17 23:59 97 Nasal Cannula 2.0 08/02/17 23:32 36.7 105 18 157/71 (99) 97 2.0 08/02/17 22:07 106 116/72 (87) 97 08/02/17 19:09 36.9 83 20 170/74 (106) 93 Room Air 08/02/17 19:05 36.9 83 20 170/74 93 Room Air 08/02/17 18:14 85 18 195/72 94 Room Air 08/02/17 16:19 79 20 179/66 94 Room Air 08/02/17 15:09 96 Room Air 08/02/17 15:09 78 24 176/83 96 Room Air 08/02/17 14:45 36.6 77 20 136/82 97 Room Air Physical Exam General Appearance: WD/WN, no apparent distress Neck: supple, no adenopathy, thyroid normal Respiratory/Chest: chest non-tender, lungs clear, normal breath sounds, no respiratory distress, no accessory muscle use Cardiovascular: regular rate, rhythm, no edema, no gallop, no JVD, no murmur Abdomen: normal bowel sounds, non tender, soft Extremities: non-tender, + pedal edema (bilateral ) Neurologic/Psychiatric: alert, normal mood/affect, oriented x 3 Skin: normal color, warm/dry, no rash Laboratory Results 08/02/17 15:50 08/03/17 06:01 Test 08/02/17 15:50 08/03/17 06:01 08/03/17 07:17 Red Blood Count 5.22 M/uL (4.2-5.4) Mean Corpuscular Volume 78.0 fL (80-100) Mean Corpuscular Hemoglobin 25.3 pg (25-34) Mean Corpuscular Hemoglobin Concent 32.4 g/dl (32-36) RDW Standard Deviation 43.9 fL (36.4-46.3) RDW Coefficient of Variation 15.5 % (11.5-14.5) Mean Platelet Volume 9.3 fL (7.4-10.4) Prothrombin Time 11.5 SECONDS (9.0-12.0) Prothromb Time International Ratio 1.1 (0.9-1.1) Activated Partial Thromboplast Time 20.8 SECONDS (21.0-31.0) Partial Thromboplastin Ratio 0.8 D-Dimer 490 ug/L FEU (0-500) Total Bilirubin 0.7 mg/dl (0.2-1) Aspartate Amino Transf (AST/SGOT) 47 U/L (15-37) Alanine Aminotransferase (ALT/SGPT) 64 U/L (12-78) Alkaline Phosphatase 65 U/L (45-117) Pro-B-Type Natriuretic Peptide 62 pg/ml (0-1800) Total Protein 7.6 gm/dl (6.4-8.2) Albumin 3.2 gm/dl (3.4-5.0) Globulin 4.4 gm/dl (2.5-4.0) Albumin/Globulin Ratio 0.7 (0.9-2) Anion Gap 5.0 mmol/L (3-11) Est Creatinine Clear Calc Drug Dose 45.3 ml/min Estimated GFR () 53.0 Estimated GFR (Non- 45.7 BUN/Creatinine Ratio 19.7 (10-20) Calcium Level 9.3 mg/dl (8.5-10.1) Phosphorus Level 3.7 mg/dl (2.5-4.9) Magnesium Level 2.0 mg/dl (1.8-2.4) Total Creatine Kinase 60 U/L (26-192) Creatine Kinase MB 1.8 ng/ml (0.5-3.6) Creatine Kinase MB Ratio 3.0 (0-3.0) Troponin I 0.048 ng/ml (0-0.045) Bedside Glucose 161 mg/dl (70-90) Assessment and Plan 76 yo female with a PMH of HTN, DMT2 and a recent hospitalization for bronchitis presents with chest pain. Patient was admitted for a ACS r/o. Assessment; The patient EKG did not show ischemic changes. In addition, her elevation in trop are downward trending and consistent with the patients baseline at previous admissions. Patient appears a bit dyspneic. Patient reports chronic sx that occur after taking her metoprolol Plan; Discussed the patient with Dr. Hodge--chest pain is unlikely due to ischemia. Patient is adamant that the symptoms are 2/2 taking metoprolol. Bronchospasm 2/2 to beta blockade may explain her symptoms, especially in the setting of recent pulm infx. Will continue to evaluate breathing today. In addition, will continue cardiac workup; am EKG and ECHO. Dispo; patient needs further testing before discharge Plan by problem; Chest pain/ACS rule out -No ischemic changes on EKG -Am EKG -ECHO -Cards consult; appreciate recs Dyspnea -Prednisone 20mg daily -Chest xray unremarkable -Xopenex PRN q6 -Dr. Hodge is adjusting BP meds--may dc metoprolol Other chronic problems HTN DMT2 Depression Resident Physician Supervision Note: I interviewed and examined the patient. Discussed with Dr. De Jesus and agree with findings and plan as documented in the note. Any exceptions or clarifications are listed here: None Documented By: Augustin Aguilar feeling tightness wheeze, notes she's been on inhalers in the past but doesn't recall carying an dx of COPD or asthma (outpt charts look like presumptive dx of asthma) - sounds like she was to have PFTs but had to cancel due to illness, then lost to follow up vitals noted nad breathing unlabored no pallor or icterus decreased air entry throughout chest tightness -appearing that she likely has some sort of yet to be dx'd CLD (COPD > asthma) - currently tight so no PFTs now - treat as moderate COPD (low dose prednisone for now, duonebs, then transition to advair/spiriva type regimen once better - then get PFTs once able) stable for med surg
[2017-08-03] MEDS: INSULIN ASPART 100 UNITS/ML 3 ML PEN SC SCH ×3 (12:44→20:32)
--- NOTE | 2017-08-03 14:58 | ECHOCARDIOGRAM REPORT ---
*NOTICE TO RECEIVING REPUBL[employer] AGENCY This information is strictly Confidential and protected under [place] law. [place] law prohibits you from making any further disclosure of this information unless further disclosure is expressly permitted by the written consent of the person to whom it pertains or is authorized by law. A general authorization for the release of medical or other information is not sufficient for this purpose. Hospital accepts no responsibility if the information is made available to any other person, INCLUDING THE PATIENT. Interpretation Summary * Name: HILARIO ZAMUDIO Study Date: 08/03/2017 12:47 PM BP: 154/71 mmHg * Patient Location: .2T\S\S239\S\1 HR: 81 * : 1940 (M/d/yyyy) Gender: Female Height: 62 in * Age: 76 yrs Ethnicity: [place] Weight: 217 lb * Ordering Physician: Bimal De Jesus * Referring Physician: Perez Hodge * Performed By: Sherin Muller RCS * * Reason For Study: CHEST PAIN * BSA: 2.0 m2 * -- Conclusions -- * Left ventricular systolic function is normal. * No regional wall motion abnormalities noted. * Ejection Fraction = 60-65%. * There is mild concentric left ventricular hypertrophy. * Grade I diastolic dysfunction, (abnormal relaxation pattern). * There is mild tricuspid regurgitation. * Compared with study dated 07/14/2017, no significant change. Procedure Details * A complete two-dimensional transthoracic echocardiogram was performed (2D, M-mode, Doppler and color flow Doppler). Left Ventricle * The left ventricle is normal in size. * There is mild concentric left ventricular hypertrophy. * Left ventricular systolic function is normal. * Ejection Fraction = 60-65%. * No regional wall motion abnormalities noted. Atria * The left atrial size is normal. * Right atrial size is normal. * No ASD detected; PFO is not assessed. Mitral Valve * The mitral valve anatomy is normal. * There is no mitral valve stenosis. * Significant mitral regurgitation is absent. Tricuspid Valve * The tricuspid valve anatomy is normal. * There is no tricuspid stenosis. * There is mild tricuspid regurgitation. Aortic Valve * The aortic valve is trileaflet. * The aortic valve opens well. * No hemodynamically significant valvular aortic stenosis. * No aortic regurgitation is present. Pulmonic Valve * The pulmonary valve is not well seen, but the Doppler examination is normal without significant regurgitation or stenosis. Great Vessels * The aortic root is normal size. * The pulmonary is not well visualized. Pericardium/Pleural * There is no pericardial effusion. Great Vessels * Normal inferior vena cava size and collapsability with sniff indicates a normal right atrial pressure of 3 mmHg Left Ventricular Diastolic Function * Grade I diastolic dysfunction, (abnormal relaxation pattern). MMode 2D Measurements and Calculations IVSd 1.5 cm IVSs 1.7 cm LVIDd 3.7 cm LVIDs 2.8 cm LVPWd 1.2 cm LVPWs 1.4 cm IVS/LVPW 1.2 FS 24.2 % EDV(Teich) 59.7 ml ESV(Teich) 30.5 ml EF(Teich) 48.9 % EDV(cubed) 52.4 ml ESV(cubed) 22.8 ml EF(cubed) 56.4 % % IVS thick 17.4 % % LVPW thick 9.2 % LV mass(C)d 179.1 grams LV mass(C)dI 90.5 grams/m\S\2 LV mass(C)s 152.6 grams LV mass(C)sI 77.1 grams/m\S\2 SV(Teich) 29.2 ml SI(Teich) 14.8 ml/m\S\2 SV(cubed) 29.6 ml SI(cubed) 14.9 ml/m\S\2 Ao root diam 2.0 cm Ao root area 3.1 cm\S\2 LA dimension 2.7 cm LA/Ao 1.3 LVOT diam 2.0 cm LVOT area 3.2 cm\S\2 LVAd ap4 26.7 cm\S\2 LVLd ap4 7.4 cm EDV(MOD-sp4) 76.3 ml EDV(sp4-el) 81.8 ml LVAs ap4 16.9 cm\S\2 LVLs ap4 6.5 cm ESV(MOD-sp4) 34.6 ml ESV(sp4-el) 37.4 ml EF(MOD-sp4) 54.7 % EF(sp4-el) 54.2 % LVAd ap2 27.1 cm\S\2 LVLd ap2 7.4 cm EDV(MOD-sp2) 79.4 ml EDV(sp2-el) 84.9 ml LVAs ap2 17.9 cm\S\2 LVLs ap2 6.7 cm ESV(MOD-sp2) 38.2 ml ESV(sp2-el) 40.3 ml EF(MOD-sp2) 51.9 % EF(sp2-el) 52.6 % LVLd %diff -0.43 % EDV(MOD-bp) 78.2 ml LVLs %diff 4.0 % ESV(MOD-bp) 36.6 ml EF(MOD-bp) 53.3 % SV(MOD-sp4) 41.7 ml SI(MOD-sp4) 21.1 ml/m\S\2 SV(MOD-sp2) 41.2 ml SI(MOD-sp2) 20.8 ml/m\S\2 SV(MOD-bp) 41.7 ml SI(MOD-bp) 21.1 ml/m\S\2 SV(sp4-el) 44.4 ml SI(sp4-el) 22.4 ml/m\S\2 SV(sp2-el) 44.6 ml SI(sp2-el) 22.6 ml/m\S\2 Doppler Measurements and Calculations MV E max wei 68.4 cm/sec MV A max wei 101.9 cm/sec MV E/A 0.67 MV P1/2t max wei 101.8 cm/sec MV P1/2t 83.7 msec MVA(P1/2t) 2.6 cm\S\2 MV dec slope 356.2 cm/sec\S\2 MV dec time 0.29 sec PA V2 max 130.3 cm/sec PA max PG 6.8 mmHg TR max wei 298.6 cm/sec
--- NOTE | 2017-08-03 15:41 | CARDIOLOGY CONSULTATION ---
DATE OF CONSULTATION: 08/03/2017 [employer]IMARY [employer] SUPERINTENDENT: HARVINDER Niño ATTENDING PHYSICIAN: Augustin Aguilar DO REFERRING PHYSICIAN: Modesto Hernandes MD CONSULTATION BY: Perez Hodge Jr., MD HISTORY OF PRESENT ILLNESS: The patient is followed by me at [facility]. Yesterday, she phoned into the the office stating that she was having constant chest pressure associated with dyspnea. She was appropriately instructed by the office nursing staff to go to the Emergency Department immediately. She subsequently went to the Emergency Department for evaluation. She was thereafter admitted to the floor. She was referred to the Emergency Department as it was felt by her description of symptoms that she could be sustaining an acute myocardial infarction. It was felt that it would be inappropriate for her to come to the office for evaluation. The patient has a longstanding history of hypertension, diabetes, diabetic nephropathy, diabetic neuropathy, dyslipidemia (intolerant of statins secondary to myalgias; this is even on low dose, only one time per week), and chronic palpitations. Longstanding history of premature ventricular beats and premature supraventricular beats. SHE DOES NOT HAVE A HISTORY OF ATRIAL FIBRILLATION. She underwent a cardiac END catheterization in 2004 which showed normal coronary arteries. She has previously undergone stress testing. This included a nuclear stress test in 08/2011 which was negative for evidence of myocardial ischemia. Prior Holter monitoring has revealed very frequent premature ventricular beats, evidence of ventricular bigeminy, and rare ventricular couplets and triplets. She has never had documentation of ventricular tachycardia. Prior echocardiography has revealed normal LV systolic function. Her most recently performed echo was on 07/14/2017. Normal LV size and systolic function. Normal LV wall motion. Estimated LV ejection fraction 60-65%. Mild left ventricular hypertrophy. Normal right ventricular size and systolic function. No significant valvular abnormalities. Grade 1 left ventricular diastolic dysfunction. No significant change from 05/14/2015. The patient was last seen by me on 11/30/2016. At that time, she complained of episodes of heavy retrosternal chest tightness which were occurring at night. The chest tightness could be associated with dyspnea and wheezing. She denied any exertionally precipitated chest tightness with activities. She reported that the symptoms of chest tightness have been present for at least 1 year. It was felt by me by her description of the discomfort with associated dyspnea and wheezing that it might be secondary to bronchospasm. However, it was felt that myocardial ischemia cannot be excluded as an etiology. It was planned for her to undergo a dobutamine stress echocardiogram. However, this was not performed. There is also plan for her to undergo pulmonary function testing. These were not performed. She was recently admitted to [facility] from 07/13/2017 - 07/16/2017 with principal diagnosis of bronchitis. She was discharged home on Xopenex inhaler and a course of prednisone. Prior to admission, she has been treated as an outpatient for bronchitis with a 10-day course of doxycycline. It had been planned for her to undergo pulmonary function test, but this was delayed secondary to her bronchitis. During the admission, a code purple was called on her because of severe shortness of breath. This was felt to have been secondary to a mucus plug from her upper airway. Her [facility] records from that July admission do show a report of pulmonary function test. This is the printout from the computer. There is no interpretation of the pulmonary function test. The printout does show that her FEV1 was 60% of predicted. Peak expiratory flow 62% of predicted. CEH63-93 33% of predicted. The patient developed severe chest tightness yesterday morning. It was associated with dyspnea. It persisted throughout the day. She also complained of increased anxiety. She states that she obtained relief in the Emergency Department after administration of intravenous morphine. Last night, she had reoccurrence of chest heaviness. The intensity has decreased overnight through this morning. However, she still complains of mild residual sensation of chest heaviness. She has occasional wheezing. She denies any cough. No associated nausea or diaphoresis with the chest discomfort. She denies any fevers or chills. No focal neurologic type symptoms. No urinary complaints. No GI complaints. No symptoms of bleeding. She states that her symptoms last night markedly worsened approximately 10 minutes after taking her metoprolol. She feels that after she takes her metoprolol, her chest tightness and dyspnea markedly worsened. She states that she is afraid to further take metoprolol. PAST MEDICAL HISTORY: 1. Hypertension. 2. Dyslipidemia. Intolerant of low dose statins. 3. Type 2 diabetes mellitus. 4. Diabetic nephropathy. 5. Diabetic neuropathy. 6. PVCs and PACs. 7. Chronic palpitations. 8. Status post robotically assisted hysterectomy for uterine carcinoma in 2012. 9. History of persistently mildly elevated troponins. Since 2013 troponin I's have been mildly increased. 10. Longstanding history of peripheral edema. 11. Sleep apnea treated with CPAP. 12. Status post radiation therapy for uterine carcinoma. 13. Recurrent urinary tract infections and urinary incontinence after the radiation treatments. 14. Chronic anxiety. 15. Meningioma of the anterior fossa. 16. Gastroesophageal reflux disease. 17. Cervical spine stenosis. 18. History of depression. 19. Glaucoma. 20. No history of documented ST elevation myocardial infarction. 21. No history of congestive heart failure. 22. No history of CVA or TIA. PAST SURGICAL HISTORY: 1. Status post total abdominal hysterectomy. 2. Status post knee surgery. 3. Status post cholecystectomy. 4. Status post mastectomy. 5. Status post cataract surgery. FAMILY HISTORY: History of myocardial infarction in her mother. Mother also with history of diabetes mellitus and hypertension. SOCIAL HISTORY: The patient is , lives with her . Prior history of cigarette smoking. She does not drink alcohol. REVIEW OF SYSTEMS: 1. As above. 2. She feels that her lower extremity edema increased yesterday compared to usual. 3. Diffuse fatigue and weakness. No focal motor weakness. 4. No neurologic symptoms suggestive of CVA or TIA. 5. No current urinary complaints suggestive of infection. No dysuria. CURRENT MEDICATIONS: Metoprolol succinate ER 25 mg at bedtime, losartan 25 mg every day, Lexapro 5 mg daily, trazodone 25 mg at bedtime as needed, enoxaparin 40 mg subQ q.p.m., aspirin 81 mg p.o. b.i.d., Zyrtec 10 mg q.p.m., Cymbalta 40 mg q.p.m., Flonase 1 spray b.i.d., gabapentin 600 mg q.i.d., Lantus insulin 64 units at bedtime, and multiple as needed medications. ALLERGIES AND ADVERSE DRUG REACTIONS: MULTIPLE. PLEASE SEE EHR. FROM A CARDIAC STANDPOINT, HISTORY OF ADVERSE REACTIONS TO LISINOPRIL, IODINATED CONTRAST AGENT AND STATINS. HISTORY OF SEVERE ALLERGIC REACTIONS TO MEPERIDINE, MIDODRINE, PENICILLINS, QUINOLONES, AND BACTRIM. PHYSICAL EXAMINATION: GENERAL: The patient was seen by me this morning in her telemetry unit bed. She is lying in bed. No distress. General appearance appeared to be normal. VITAL SIGNS: This morning with oral temperature 36.7, pulse 81, blood pressure 178/71, pulse oximetry 96%. HEAD: Normal. EYES: Pupils equal and round. Anicteric. Conjunctivae normal. No xanthelasma. NECK: No jugular venous distension. Carotids 2/2 bilaterally. Normal upstroke. No bruits. LUNGS: Shallow breathing. Diminished air movement in all lung archibald. Scattered expiratory wheezes. Scattered rhonchi. HEART: PMI normal. No lifts or heaves. Regular rate and rhythm. S1, S2 normal. No S3 or S4. Distant heart sounds. No murmur or rub heard. ABDOMEN: Soft. Nontender. No palpable masses or organomegaly. No bruits. EXTREMITIES: Trace pedal edema bilaterally. NEUROLOGIC: Alert and oriented x3. Motor grossly intact. PSYCHIATRIC: She appears very anxious. DATA: Electrocardiograms on this admission with normal sinus rhythm and nonspecific lateral T-wave inversions. No ST segment changes suggestive of acute myocardial injury. No ST depressions or elevations diagnostic of myocardial ischemia or injury. Chest x-ray on 08/02/2017 and reviewed by me without evidence of congestive heart failure. No infiltrate. Labs yesterday with WBC 6.02, hemoglobin 13.2, hematocrit 40.7, platelet count 112. INR 1.1. Metabolic profile today was sodium 137, potassium 3.6, chloride 104, carbon dioxide 28, BUN 23, creatinine 1.16, random glucose 189. Magnesium 2.0. Troponin I's on this admission have been, 0.047, 0.052, 0.045, and 0.048. Upper limits of normal 0.045. CK totals have been 70 and 60 with respective MBs of 1.7 and 1.8. ASSESSMENT: 1. Prolonged chest tightness yesterday. The longest continuous episode has been at least 4-5 hours. Exacerbation last night after taking metoprolol. She states that after taking the metoprolol, she felt that her heart was beating very strongly and she felt that her chest discomfort worsened. The chest heaviness is accompanied by dyspnea. The electrocardiogram is without any diagnostic ST segment evidence of myocardial ischemia or injury. Her troponins are mildly elevated. However, review of her troponin since 2012 showed that her troponin is usually mildly elevated. Her CK-MB are not indicative of myocardial injury. The patient has a longstanding history of chest discomfort. Remote history of cardiac catheterization in 2004 revealing normal coronary arteries. Prior stress testing revealed no evidence of myocardial ischemia. Recent echocardiogram in July with normal LV systolic function and wall motion. On exam by me this morning, she had evidence of bronchospasm. Decreased air movement in all lung archibald. Scattered wheezing and rhonchi. Her symptoms at this time could be secondary to bronchospasm. She had pulmonary function test performed last month. There is no official interpretation of these pulmonary function test that I could find on the chart. Her spirometry was, however, reduced. It is based on the printout values. 2. Hypertension. 3. Possible increased bronchospasm after taking metoprolol. 4. Dyslipidemia. Intolerant of even very low dose statins including rosuvastatin 5 mg once a week. She has complained of myalgias. 5. No evidence of congestive heart failure on chest x-ray. RECOMMENDATIONS: 1. Reassess left ventricular wall motion and systolic function today with an echocardiogram. Suspect that it will continue to show normal LV wall motion. 2. Maximum treatment for her bronchospasm. Treatment of this by the hospitalist service. 3. Would hold off on performing a stress test until her bronchospasm has resolved. 4. Certainly if she developed ST segment elevations on electrocardiogram or significant ST segment depressions consistent with myocardial ischemia or subendocardial injury, a cardiac catheterization would be indicated. 5. Treatment for her anxiety. 6. Discontinue metoprolol. Will start carvedilol 3.125 milligrams b.i.d.. The above assessment and recommendations were discussed with the family practice resident Dr. Ruddy De Jesus. Thank you for asking us to see this patient in cardiology consultation. JUANA
[2017-08-03] MEDS: ALBUT/IPRATROP 3MG/0.5MG NEB 3 ML VIAL INH SCH (19:20)
[2017-08-03] MEDS: CARVEDILOL 3.125 MG TAB PO SCH (20:25)
[2017-08-03] MEDS: DULOXETINE HCL 20 MG CAP PO SCH (20:26)
[2017-08-03] MEDS: CETIRIZINE HCL 10 MG TAB PO SCH (20:27)
[2017-08-03] MEDS: ENOXAPARIN 40 MG/0.4 ML SYR SC SCH (20:28)
[2017-08-03] MEDS: INSULIN GLARGINE SOLOSTAR 100 UNITS/ML 3 ML PEN SC SCH (20:30)
[2017-08-03] MEDS: MoRPHine SULFATE 2 MG/ML CARP IV PRN (21:03)
[2017-08-03] MEDS: ZOLPIDEM TARTRATE 5 MG TAB PO PRN (23:16)
[2017-08-04] VITALS (8 sets, daily range): BP systolic 143–193; BP diastolic 69–90; PULSE 72–94; TEMP 36.4–36.7; O2SAT 93–98
[2017-08-04 07:29] LABS: HEMATOCRIT 39.6 % (37-47); HEMOGLOBIN 12.8 g/dL (12.0-16.0); MEAN CELL VOLUME 78.1 fL (80-100); MEAN CORPUSCULAR HEMOGLOBIN 25.2 pg (25-34); MEAN CORPUSCULAR HGB CONC 32.3 g/dl (32-36); MEAN PLATELET VOLUME 9.2 fL (7.4-10.4); PLATELET COUNT 112 K/uL (130-400); RED CELL DISTRIBUTION WIDTH CV 15.5 % (11.5-14.5); WHITE BLOOD COUNT 5.62 K/uL (4.8-10.8)
[2017-08-04] MEDS: ALBUT/IPRATROP 3MG/0.5MG NEB 3 ML VIAL INH SCH ×3 (08:02→15:30)
[2017-08-04 08:04] LABS: CALCIUM 8.8 mg/dl (8.5-10.1); CREATININE 1.11 mg/dl (0.60-1.20); POTASSIUM 4.4 mmol/L (3.5-5.1)
[2017-08-04] MEDS ORDERED: POLYETHYLENE (MIRALAX) 17 GM PACK PO ONE (08:22)
[2017-08-04] MEDS: GABAPENTIN 600 MG TAB PO SCH ×4 (08:43→20:01)
[2017-08-04] MEDS: CARVEDILOL 3.125 MG TAB PO SCH ×2 (08:43→20:02)
[2017-08-04] MEDS: ESCITALOPRAM OXALATE 10 MG TAB PO SCH (08:44)
[2017-08-04] MEDS: ASPIRIN 81 MG ECTAB PO SCH ×2 (08:44→20:02)
[2017-08-04] MEDS: LOSARTAN POTASSIUM 25 MG TAB PO SCH (08:44)
[2017-08-04] MEDS: FLUTICASONE PROPIONATE NA SPR 16 GM BTL SCH ×2 (08:45→20:00)
[2017-08-04] MEDS: INSULIN ASPART 100 UNITS/ML 3 ML PEN SC SCH ×4 (08:54→20:50)
--- NOTE | 2017-08-04 13:43 | Family Medicine Progress Note ---
Progress Note Date of Service August 04, 2017. Subjective Pt evaluation today including: conversation w/ patient [place] "very rough" overnight but was unable to clarify how. Denies any new pain. Not short of breath at rest or w/activity. Constitutional: No fever, No chills Eyes: No worsening of vision ENT: No hearing loss Respiratory: No cough, No sputum All Other Systems: Reviewed and Negative Medications Current Inpatient Medications Medications (Trade) Dose Ordered Sig/Brittany Route Start Time Stop Time Status Last Admin Dose Admin Enoxaparin Sodium (Lovenox Inj) 40 mg QPM SC 08/02/17 21:00 09/01/17 20:59 08/03/17 20:28 40 MG Acetaminophen (Tylenol Tab) 650 mg Q4H PRN PO 08/02/17 18:00 09/01/17 17:59 Al Hydrox/Mg Hydrox/Simethicone (Maalox Max Susp) 15 ml Q4H PRN PO 08/02/17 18:00 09/01/17 17:59 Magnesium Hydroxide (Milk Of Magnesia Susp) 30 ml Q12H PRN PO 08/02/17 18:00 09/01/17 17:59 Zolpidem Tartrate (Ambien Tab) 5 mg HSZ PRN PO 08/02/17 18:00 09/01/17 17:59 08/03/17 23:16 5 MG Ondansetron HCl (Zofran Inj) 4 mg Q6H PRN IV 08/02/17 18:00 09/01/17 17:59 Nitroglycerin (Nitrostat Tab) 0.4 mg UD PRN SL 08/02/17 18:00 09/01/17 17:59 Morphine Sulfate (MoRPHine SULFATE INJ) 2 mg Q30M PRN IV 08/02/17 18:00 08/16/17 17:59 08/03/17 21:03 2 MG Polyethylene (Miralax Powder Packet) 17 gm DAILY PRN PO 08/02/17 18:00 09/01/17 17:59 Hydralazine HCl (HydrALAZINE INJ) 20 mg Q6 PRN IV. 08/02/17 18:30 09/01/17 18:29 08/02/17 21:14 20 MG Losartan Potassium (coZAAR TAB) 25 mg QAM PO 5/4/18 09:00 09/02/17 08:59 08/04/17 08:44 25 MG Aspirin (Ecotrin Tab) 81 mg BID PO 08/02/17 21:00 09/01/17 20:59 08/04/17 08:44 81 MG Calcium Carbonate (Tums Chew Tab) 1,000 mg Q4H PRN PO 08/02/17 18:30 09/01/17 18:29 Cetirizine HCl (zyrTEC TAB) 10 mg QPM PO 08/02/17 21:00 09/01/17 20:59 08/03/17 20:27 10 MG Duloxetine HCl (Cymbalta Cap) 40 mg QPM PO 08/02/17 21:00 09/01/17 20:59 08/03/17 20:26 40 MG Escitalopram Oxalate (Lexapro Tab) 5 mg DAILY PO 08/03/17 09:00 09/02/17 08:59 08/04/17 08:44 5 MG Fluticasone Propionate (Flonase Nasal [place]) 1 sprays BID NA 08/02/17 21:00 09/01/17 20:59 08/04/17 08:45 1 SPRAYS Gabapentin (Neurontin Tab) 600 mg QID PO 08/02/17 21:00 09/01/17 20:59 08/04/17 13:03 600 MG Insulin Glargine (Lantus Solostar Pen) 64 units HS SC 08/02/17 21:00 09/01/17 20:59 08/03/17 20:30 64 UNITS Levalbuterol (Xopenex Hfa Inhaler) 2 puffs Q6H PRN INH 08/02/17 18:30 09/01/17 18:29 08/03/17 21:29 2 PUFFS Sodium Chloride (Kennett Nasal [place]) 2 sprays Q3H PRN NA 08/02/17 18:30 09/01/17 18:29 Glucose (Glucose 40% Gel) 15-30 GRAMS 15 GRAMS... UD PRN PO 08/02/17 19:00 09/01/17 18:59 Glucose (Glucose Chew Tab) 4-8 Tablets 4 Tabl... UD PRN PO 08/02/17 19:00 09/01/17 18:59 Dextrose (Dextrose 50% 50ML Syringe) 25-50ML 25ML FOR ... UD PRN IV 08/02/17 19:00 09/01/17 18:59 Glucagon (Glucagon Inj) 1 mg UD PRN IM 08/02/17 19:00 09/01/17 18:59 Carbohydrates (Carbohydrates For Hypoglycemia) 15-30 GRAMS 15 grams if BSG 54-69... UD PRN PO 08/02/17 19:00 09/01/17 18:59 Trazodone HCl (Desyrel Tab) 25 mg QPM PRN PO 08/03/17 00:15 09/02/17 00:14 Insulin Aspart (novoLOG ASPART) SLIDING SCALE G... ACHS SC 08/03/17 11:00 09/02/17 10:59 08/04/17 13:05 11 UNITS Carvedilol (Coreg Tab) 3.125 mg BID PO 08/03/17 21:00 09/02/17 20:59 08/04/17 08:43 3.125 MG Prednisone (PredniSONE TAB) 20 mg DAILY PO 08/04/17 08:00 09/03/17 08:59 08/04/17 08:44 20 MG Albuterol/ Ipratropium (Duoneb) 3 ml QIDR INH 08/03/17 20:00 09/02/17 19:59 08/04/17 11:14 3 ML Polyethylene (Miralax Powder Packet) 17 gm DAILY PO 08/05/17 08:00 09/04/17 07:59 Objective Vital Signs Date Time Temp Pulse Resp B/P (MAP) Pulse Ox O2 Delivery O2 Flow Rate FiO2 08/04/17 11:14 72 16 93 Room Air 08/04/17 08:56 93 176/90 (118) 08/04/17 08:30 Room Air 08/04/17 08:10 36.4 78 22 193/83 (119) 95 Room Air 08/04/17 08:03 74 16 96 Room Air 08/04/17 00:00 Room Air 08/03/17 22:36 36.8 87 18 174/80 (111) 96 Room Air 08/03/17 22:23 95 08/03/17 20:00 Room Air 08/03/17 19:22 85 16 95 Room Air 08/03/17 18:55 37.2 81 20 150/63 (92) 92 Room Air 08/03/17 16:00 Room Air 08/03/17 15:21 36.8 83 20 147/54 (85) 93 Room Air Physical Exam General Appearance: WD/WN, no apparent distress Eyes: normal inspection, PERRL ENT: hearing grossly normal Neck: supple, no JVD Respiratory/Chest: lungs clear, normal breath sounds, no respiratory distress, no accessory muscle use (poor inspiratory effort) Cardiovascular: regular rate, rhythm, no murmur Abdomen: normal bowel sounds, non tender, soft Extremities: non-tender, no pedal edema Neurologic/Psychiatric: alert, normal mood/affect, oriented x 3 Skin: no rash Laboratory Results Last 24 Hours Test 08/03/17 16:13 08/03/17 20:10 08/04/17 06:53 08/04/17 07:31 Bedside Glucose 206 mg/dl 268 mg/dl 210 mg/dl White Blood Count 5.62 K/uL Red Blood Count 5.07 M/uL Hemoglobin 12.8 g/dL Hematocrit 39.6 % Mean Corpuscular Volume 78.1 fL Mean Corpuscular Hemoglobin 25.2 pg Mean Corpuscular Hemoglobin Concent 32.3 g/dl RDW Standard Deviation 44.0 fL RDW Coefficient of Variation 15.5 % Platelet Count 112 K/uL Mean Platelet Volume 9.2 fL Sodium Level 139 mmol/L Potassium Level 4.4 mmol/L Chloride Level 102 mmol/L Carbon Dioxide Level 30 mmol/L Anion Gap 6.0 mmol/L Blood Urea Nitrogen 21 mg/dl Creatinine 1.11 mg/dl Est Creatinine Clear Calc Drug Dose 47.3 ml/min Estimated GFR () 55.9 Estimated GFR (Non- 48.2 BUN/Creatinine Ratio 18.6 Random Glucose 197 mg/dl Calcium Level 8.8 mg/dl Assessment and Plan 76 yo F, initially presented with chest tightness - likely bronchitis / asthma exacerbation. Chest tightness - Cardiac source ruled out w/echo, troponin, cards consultation - Prednisone 20mg daily - CXR unremarkable - Duonebs Type 2 DM - on Insulin SS Hypertension - Metoprolol changed to Carvedilol Code status: FULL VTE: Heparin Resident Physician Supervision Note: I interviewed and examined the patient. Discussed with Dr. De Jesus and agree with findings and plan as documented in the note. Any exceptions or clarifications are listed here: None Documented By: Augustin Ledezmaur feeling tightness wheeze, notes she's been on inhalers in the past but doesn't recall carying an dx of COPD or asthma (outpt charts look like presumptive dx of asthma) - sounds like she was to have PFTs but had to cancel due to illness, then lost to follow up vitals noted nad breathing unlabored no pallor or icterus decreased air entry throughout chest tightness -appearing that she likely has some sort of yet to be dx'd CLD (COPD > asthma) -also likely anxiety overlay -discussed how to follow pulse ox to at least gauge safety -change to advair/spiriva, albuterol prn sob/wheeze Resident Tracking Resident Involvement: Resident Care Provided Care Provided: Adult Hospital Medicine
[2017-08-04] MEDS: MoRPHine SULFATE 2 MG/ML CARP IV PRN (15:49)
[2017-08-04] MEDS ORDERED: ALBUTEROL HFA 8 GM INHALER INH PRN (18:15)
[2017-08-04] MEDS: DULOXETINE HCL 20 MG CAP PO SCH (20:03)
[2017-08-04] MEDS: CETIRIZINE HCL 10 MG TAB PO SCH (20:04)
[2017-08-04] MEDS: FLUTICASONE/SALMETEROL 250/50 (ADVAIR) 14 PUFF/1 INHALER INH SCH (20:44)
[2017-08-04] MEDS: ENOXAPARIN 40 MG/0.4 ML SYR SC SCH (20:45)
[2017-08-04] MEDS: INSULIN GLARGINE SOLOSTAR 100 UNITS/ML 3 ML PEN SC SCH (20:50)
[2017-08-05 06:32] LABS: BASO % 0.2 %; BASO ABS # 0.01 K/uL (0-0.2); EOS % 1.1 %; EOS ABS # 0.06 K/uL (0-0.5); HEMOGLOBIN 12.9 g/dL (12.0-16.0); IG# 0.01 K/uL (0.00-0.02); LYMPH % 26.5 %; LYMPH ABS # 1.51 K/uL (1.2-3.4); MEAN CELL VOLUME 78.1 fL (80-100); MEAN CORPUSCULAR HEMOGLOBIN 25.2 pg (25-34); MEAN CORPUSCULAR HGB CONC 32.3 g/dl (32-36); MONO % 7.9 %; MONO ABS # 0.45 K/uL (0.11-0.59); NEUT % 64.1 %; NEUT ABS # 3.65 K/uL (1.4-6.5); PLATELET COUNT 113 K/uL (130-400); RED CELL DISTRIBUTION WIDTH CV 15.6 % (11.5-14.5); RED CELL DISTRIBUTION WIDTH SD 44.8 fL (36.4-46.3); WHITE BLOOD COUNT 5.69 K/uL (4.8-10.8)
[2017-08-05 07:05] LABS: CALCIUM 9.4 mg/dl (8.5-10.1); CREATININE 1.1 mg/dl (0.60-1.20); POTASSIUM 3.9 mmol/L (3.5-5.1)
[2017-08-05 08:00] VITALS: BP 141/77; PULSE 71; TEMP 36.4; O2SAT 97
[2017-08-05] MEDS ORDERED: TIOTROPIUM BROMIDE 5 PUFF/90 MCG INH INH SCH (08:00)
[2017-08-05] MEDS ORDERED: POLYETHYLENE (MIRALAX) 17 GM PACK PO SCH (08:00)
[2017-08-05] MEDS: FLUTICASONE/SALMETEROL 250/50 (ADVAIR) 14 PUFF/1 INHALER INH SCH (08:51)
[2017-08-05] MEDS: CARVEDILOL 3.125 MG TAB PO SCH (08:51)
[2017-08-05] MEDS: FLUTICASONE PROPIONATE NA SPR 16 GM BTL SCH (08:51)
[2017-08-05] MEDS: ESCITALOPRAM OXALATE 10 MG TAB PO SCH (08:52)
[2017-08-05] MEDS: LOSARTAN POTASSIUM 25 MG TAB PO SCH (08:52)
[2017-08-05] MEDS: GABAPENTIN 600 MG TAB PO SCH ×2 (08:52→12:20)
[2017-08-05] MEDS: ASPIRIN 81 MG ECTAB PO SCH (08:58)
[2017-08-05] MEDS: INSULIN ASPART 100 UNITS/ML 3 ML PEN SC SCH ×2 (08:58→12:47)
--- NOTE | 2017-08-05 11:54 | Discharge Instructions ---
Discharge Instructions Date of Service August 05, 2017. Admission Reason for Admission: Nstemi, Anxiety Discharge Discharge Diagnosis / Problem: Bronchitis Discharge Goals Goal(s): Improve disease control Activity Recommendations Activity Limitations: per Instructions/Follow-up section . Instructions / Follow-Up Instructions / Follow-Up Use your new inhalers as listed below. The first two are 'controller' medications for your lungs. It is important to use them EVERYDAY so that they have the best chance of working. They work by decreasing inflammation, which helps decrease your lungs being irritated and keeps them open throughout the day and night. - SPIRIVA - Use this in the MORNING, everyday. - ADVAIR - Use this in the MORNING AND at NIGHT. It is helpful to use this before brushing your teeth. The other inhaler is a 'rescue' inhaler. It lasts about 4 to 6 hours. You can use this WHENEVER you feel short of breath, or if you feel you are going to do something that may make you short of breath (such as a walk or exercising). - ALBUTEROL - Use this BEFORE an activity or when you feel short of breath. It can take about 30 minutes to work. A helpful way to know how your breathing is doing is by getting a small PULSE OXIMETER. You can find these easily at a drug store or on [employer]. It can tell you your heart rate and your percentage of oxygen in your body by measuring this through your fingernail. You should not put it on a fingernail which has nail chinese on. Ideally, your pulse ox level should be greater than 94%. If there are times where you feel very short of breath and your heart is racing , use the pulse oximeter. If it says your level is above 94% but your heart rate is very fast, use deep breathing to try to slow it down and calm your mind. Sometimes this could be from more of an anxiety picture than an issue with your breathing. If your pulse oximetry level is BELOW 90%, seek medical attention right away. If it is between 90 and 94%, make sure to recheck it on another finger, and call your PCP if you have any other symptoms as well. Please follow up with your PCP within the week and do not hesitate to call us if you have any questions. In about a month, it is recommended you get PULMONARY FUNCTION TESTS, which your PCP can order. Current Hospital Diet Patient's current hospital diet: AHA Diet (Heart Healthy), Diabetes Type 2 Diet Discharge Diet Recommended Diet: Regular Diet, AHA Diet (Heart Healthy) Pending Studies Studies pending at discharge: no Laboratory Results Hemoglobin A1c Test 07/14/17 07:12 Range/Units Estimated Average Glucose 171 mg/dl Hemoglobin A1c 7.6 H 4.5-5.6 % Lipid Panel Test 07/14/17 07:12 Range/Units Triglycerides Level 86 0-150 mg/dl Cholesterol Level 111 0-200 mg/dl HDL Cholesterol 35 mg/dl Cholesterol/HDL Ratio 3.2 LDL Cholesterol, Calculated 59 mg/dl Medical Emergencies . Who to Call and When: Medical Emergencies: If at any time you feel your situation is an emergency, please call 911 immediately. . Non-Emergent Contact Non-Emergency issues call your: Primary Care Provider . . "Provider Documentation" section prepared by Romelia Lowery. .
[2017-08-05] MEDS ORDERED: CRG3125 PO (11:58)
[2017-08-05] MEDS ORDERED: LEVA45AE PO (11:58)
[2017-08-05] MEDS ORDERED: ADVIN25050 INH (11:58)
[2017-08-05] MEDS ORDERED: SPRIN INH (11:58)
--- NOTE | 2017-08-05 11:59 | Discharge Summary ---
Discharge Summary Date of Service August 05, 2017. Discharge Summary Admission Date: August 02, 2017 at 18:01 Discharge Date: August 05, 2017 Discharge Disposition: Home Principal Diagnosis: Bronchitis Immunizations: Have You Had Influenza Vaccine: Yes History of Tetanus Vaccine?: Yes History of Pneumococcal: Yes History of Hepatitis B Vaccine: No Consultations: Dr Hodge, Cardiology Medication Reconciliation New Medications: Carvedilol (Carvedilol) 3.125 Mg Tab 3.125 MG PO BID for 30 Days, #60 TAB Fluticasone Prop/Salmeterol (Advair Diskus 250-50 Mcg/Dose) 14 Puff/1 Inhaler Aerp 1 PUFF INH BID for 30 Days, #1 INHALER 2 Refills Tiotropium [place] (Spiriva Handihaler) 5 Puff/90 Mcg Aerp 1 PUFF INH QAM for 30 Days, #1 INHALER 2 Refills Continued Medications: Aspirin (Aspirin Ec) 81 Mg Tab 81 MG PO BID Calcium Carbonate (Tums) 500 Mg Chew 1000 MG PO UD PRN for Acid Reflux TAKE PER PACKAGE DIRECTIONS Cetirizine (Zyrtec) 10 Mg Tab 10 MG PO QPM, TAB Duloxetine Hcl (Cymbalta) 20 Mg Cap 40 MG PO QPM, CAP Epinephrine (Epipen) 0.3 Mg/0.3 Ml Inj 0.3 MG IM UD PRN for Allergic Reaction, INJ Escitalopram Oxalate (Lexapro) 5 Mg Tab 5 MG PO DAILY Fluticasone Propionate (Fluticasone Propionate) 50 Mcg/Act Spr 1 SPRAYS NA BID, #1 INHALER 5 Refills Gabapentin (Gabapentin) 600 Mg Tab 600 MG PO QID Insulin Glargine (Lantus Solostar) 100 Unit/Ml Inj 64 UNITS SC HS Insulin Lispro (Human) (Humalog Kwikpen) 100 Unit/Ml Inj 1 DOSE SQ TIDM COVERAGE DIRECTED BY SLIDING SCALE Levalbuterol Tartrate (Levalbuterol Tartrate Hfa) 45 Mcg/Act Aer 2 PUFFS PO Q6H PRN for cough/wheeze, #1 INHALER 0 Refills (This prescription has been renewed) Melatonin-Pyridoxine (Melatonin) 1 Tab Tab 1 TAB PO HS Nitroglycerin (Nitrostat) 0.4 Mg Sub 0.4 MG UT UD PRN for Chest Pain, BTL Saline ([place] Nasal [place]) 0.65 % Spr 2 SPRAYS NA Q3H PRN for Nasal Congestion, #1 INHALER purchase [id number] Discontinued Medications: Aspirin (Aspirin Ec) 325 Mg Tab 650 MG PO TODAY Metoprolol Succinate (Metoprolol Succinate ER) 25 Mg Tabcr 25 MG PO QPM Discharge Exam Review of Systems: Constitutional: No fever, No chills, No sweats, No weight loss Eyes: No worsening of vision ENT: No hearing loss Respiratory: No cough, No sputum, No wheezing Cardiovascular: No chest pain Abdomen: No pain, No nausea, No vomiting Musculoskeletal: No joint pain Genitourinary - Female: No dysuria, No urinary frequency Neurologic: No memory loss, No paralysis, No weakness Psychiatric: No depression symptoms Endocrine: No fatigue Hematologic / Lymphatic: No abnormal bleeding/bruising Integumentary: No rash Physical Exam: General Appearance: WD/WN, no apparent distress Eyes: normal inspection, PERRL ENT: hearing grossly normal Neck: supple, no JVD Respiratory/Chest: lungs clear, normal breath sounds, no respiratory distress, no accessory muscle use Cardiovascular: regular rate, rhythm, no murmur, normal peripheral pulses Abdomen / GI: normal bowel sounds, non tender, soft Extremities: no calf tenderness, no pedal edema Neurologic/Psychiatric: alert, normal mood/affect Skin: no rash Hospital Course HPI: - Initially admitted for chest pain rule out as she had chest pressure w/dyspnea - Said her symptoms worsened after taking Metoprolol, about 10 min later - Recently had bronchitis - No formal PFTs in past HOSPITAL COURSE 76 yo F, initially presented with chest tightness - likely bronchitis / asthma exacerbation. Chest tightness - Cardiac source ruled out w/echo, troponin, cards consultation - Prednisone 20mg daily given x 2 doses, did not make much of a difference so was stopped - CXR unremarkable - Duonebs given and tolerated -appears etiology is one part previously undiagnosed chronic lung disease ( clinically suspect moderate COPD) and one part anxiety (educated extensively about both) -stable for home, inhalers to fit with presumed moderate COPD until PFTs can be done - the PFTs ~3-4 weeks (once enough time has passed for test to not be adulterated by bronchitis) and then tailor regimen specific to her Likely asthma/COPD - Discharged on Spiriva, Advair and Albuterol PRN - Educated multiple times on appropriate technique and use - likely also has an underlying component of anxiety - see below - due to presumed COPD and anxiety both causing similar sx, asked pt to get pulse ox so she can check O2 sats when she feels short of breath - this may not help her distinguish anxiety from lung related SOB - but at least can give her a measure of safety for home management vs needing urgent evaluation anxiety -extensively counselled, she acutally noted after discussions on what anxiety can do, she had less anxiety-type symptoms since Type 2 DM - on Insulin SS - A1c 7.6% Hypertension - Metoprolol changed to Carvedilol as pt did not want to take metoprolol again as she felt it contributed to her chest tightness Code status: FULL VTE: Heparin Discharged in good condition on 08/05/17 to home Resident Physician Supervision Note: I interviewed and examined the patient. Discussed with Dr. Lowery and agree with findings and plan as documented in the note. Any exceptions or clarifications are listed here: None Documented By: Augustin Aguilar generally feeling better - had a bit of a migraine prodrome earlier but seems to be resolving and no headache ensued. vitals noted nad breathing unlabored no pallor or icterus decreased air entry throughout chest tightness -appearing that she likely has some sort of yet to be dx'd CLD (COPD > asthma) -also likely anxiety overlay -reiterated discussion on how to follow pulse ox to at least gauge safety -home on inhaler regimen to cover for suspected moderate COPD; PFTs ~3-4 wks stable/safe for home Total Time Spent: Greater than 30 minutes This includes examination of the patient, discharge planning, medication reconciliation, and communication with other providers. Discharge Instructions Please refer to the electronic Patient Visit Report (Discharge Instructions) for additional information. Follow-Up With PCP within a week Outpatient PFTs Additional Copies To Darwin Lugo III, CRNP Resident Tracking Resident Involvement: Resident Care Provided Care Provided: Adult Hospital Medicine
[2017-08-05 14:05] VITALS: BP 141/77; PULSE 71; TEMP 36.4; O2SAT 97
== END 2017-08-05 14:48 | disposition home health service (06) | DRG 313 ==
LOC: C.EDB 14:44 → C.2T 18:01 → ENRESERV 18:18 → C.4E 08-03 22:04
PROVIDERS: ADMIT Hospitalist; ATTEND Family Medicine
DX: R07.89 Other chest pain (principal); J45.901 Unspecified asthma with (acute) exacerbation; J44.0 Chronic obstructive pulmonary disease with (acute) lower respiratory infection; F41.9 Anxiety disorder, unspecified; E66.9 Obesity, unspecified; G47.33 Obstructive sleep apnea (adult) (pediatric); K21.9 Gastro-esophageal reflux disease without esophagitis; N18.3 Chronic kidney disease, stage 3 (moderate); I12.9 Hypertensive chronic kidney disease with stage 1 through stage 4 chronic kidney disease, or unspecified chronic kidney disease; M48.061 Spinal stenosis, lumbar region without neurogenic claudication; E11.22 Type 2 diabetes mellitus with diabetic chronic kidney disease; E11.40 Type 2 diabetes mellitus with diabetic neuropathy, unspecified; R06.00 Dyspnea, unspecified; F32.9 Major depressive disorder, single episode, unspecified; R00.2 Palpitations; E78.5 Hyperlipidemia, unspecified; Z98.49 Cataract extraction status, unspecified eye; Z88.8 Allergy status to other drugs, medicaments and biological substances; Z88.5 Allergy status to narcotic agent; Z88.2 Allergy status to sulfonamides; Z79.82 Long term (current) use of aspirin; Z92.3 Personal history of irradiation; Z79.4 Long term (current) use of insulin; Z68.39 Body mass index [BMI] 39.0-39.9, adult; Z98.86 Personal history of breast implant removal; Z85.42 Personal history of malignant neoplasm of other parts of uterus; Z87.440 Personal history of urinary (tract) infections; Z87.891 Personal history of nicotine dependence; Z90.710 Acquired absence of both cervix and uterus; Z83.3 Family history of diabetes mellitus; Z80.9 Family history of malignant neoplasm, unspecified; Z84.1 Family history of disorders of kidney and ureter; Z82.49 Family history of ischemic heart disease and other diseases of the circulatory system

== ENCOUNTER → 2017-11-20 | Outpatient (CLI) | payer OTHER ==
[~2017-11-20] VITALS: Ht 154.9 cm; Wt 98.2 kg
[~2017-11-20] MED LIST changes: +ADVIN25050 INH; +CRG3125 PO; -CYM20 PO; +ESCI1TAB6 PO; +MELA3TAB12 PO; -PRD10 PO; -SPACMIS7 PO; +SPRIN INH
[2017-11-20 14:47] VITALS: BP 134/56; PULSE 76; Ht 154.9 cm; Wt 98.2 kg
== END | disposition home or self-care (01) ==
LOC: C.NEUR 13:25
PROVIDERS: ATTEND Internal Medicine Pulmonary Disease
DX: G47.30 Sleep apnea, unspecified (principal); E66.01 Morbid (severe) obesity due to excess calories; F32.9 Major depressive disorder, single episode, unspecified; J30.9 Allergic rhinitis, unspecified; Z68.41 Body mass index [BMI] 40.0-44.9, adult; E11.9 Type 2 diabetes mellitus without complications; I10 Essential (primary) hypertension; Z79.4 Long term (current) use of insulin; E55.9 Vitamin D deficiency, unspecified

== ENCOUNTER 2018-12-16 22:05 | Observation (INO) ==
[2018-12-16] MEDS ORDERED: VANCOMYCIN CONSULT ACTIVE PRN (23:01)
[2018-12-16] MEDS ORDERED: DEXAMETHASONE SOD PHOSPHATE 10 MG in SYRINGE 0 ML IV STA (23:01)
[2018-12-16] MEDS ORDERED: VANCOMYCIN HCL 2,000 MG in SODIUM CHLORIDE 0.9% 500 ML IV ONE (23:01)
[2018-12-16] MEDS ORDERED: CEFEPIME 2,000 MG/20 ML VIAL IV STA (23:03)
[2018-12-16] MEDS ORDERED: metroNIDAZOLE 500 MG/100 ML BAG IV STA (23:03)
[2018-12-16] MEDS ORDERED: ACETAMINOPHEN 1,000 MG/100 ML VIAL IV STA (23:10)
[2018-12-16] MEDS ORDERED: DiphenhydrAMINE HCL 50 MG/ML VIAL IV STA (23:18)
[2018-12-17 00:02] LABS: Hematocrit (blood only) 39.8 % (37-47); Hemoglobin 12.7 g/dL (12.0-16.0); Mean Corpuscular Hemoglobin 24.7 pg (25-34); Mean Corpuscular Hgb Conc 31.9 g/dL (32-36); Mean Corpuscular Volume 77.3 fL (80-100); RDW Standard Deviation 39.5 fL (36.4-46.3); Red Blood Count 5.15 M/uL (4.2-5.4); White Blood Count 5.79 K/uL (4.8-10.8)
[2018-12-17] MEDS ORDERED: DEXAMETHASONE **PF** INJ 10 MG/ML VIAL ONE (00:08)
[2018-12-17 00:24] LABS: INR 1.2 (0.9-1.1); Partial Thromboplastin Ratio 0.9; Partial Thromboplastin Time 24.2 Seconds (21.0-31.0); Prothrombin Time 11.8 Seconds (9.0-12.0)
[2018-12-17 00:26] LABS: Albumin Level 3.1 gm/dl (3.4-5.0); BUN Creatinine Ratio 15.6 (10-20); Bilirubin Direct 0.2 mg/dl (0-0.2); Calcium 8.8 mg/dl (8.5-10.1); Creatinine Clr Calc Pharmacy 32.6 ml/min; Est GFR (African American) 37.4; Est GFR (Non-African American) 32.2
[2018-12-17 00:29] LABS: Albumin Globulin Ratio 0.7 (0.9-2); Bilirubin,Total 1.2 mg/dl (0.2-1); Globulin 4.2 gm/dl (2.5-4.0); Total Protein 7.3 gm/dl (6.4-8.2)
[2018-12-17 00:34] LABS: Mean Platelet Volume 9.1 fL (7.4-10.4); Platelet Count 99 K/uL (130-400)
[2018-12-17 00:37] LABS: Basophils # (auto) 0.02 K/uL (0-0.2); Basophils % (auto) 0.3 %; Eosinophils # (auto) 0.05 K/uL (0-0.5); Eosinophils % (auto) 0.9 %; Immature Granulocytes # (auto) 0.03 K/uL (0.00-0.02); Immature Granulocytes % (auto) 0.5 %; Lymphocytes % (auto) 13.8 %; Monocytes # (auto) 0.47 K/uL (0.11-0.59); Monocytes % (auto) 8.1 %; Neutrophils # (auto) 4.42 K/uL (1.4-6.5); Neutrophils % (auto) 76.4 %; Platelet Estimate Decreased (Normal)
--- NOTE | 2018-12-17 00:56 | Emergency Department Note ---
Entered by Adriane Rogers acting as a scribe for Froy lCifton MD History of Present Illness General Chief complaint: Facial Injury/Pain Stated complaint: SWELLING OF FACE, INFECTION FROM TOOTH Time Seen by Provider: 12/16/18 22:19 Source: patient History of Present Illness Onset (ago): day(s) 3 Location: face and mouth Pain Consistency: + intermittent Maximum Pain Intensity: 10 Current Pain Intensity: 10 Quality: + other (soreness) Associated symptoms: + fever/chills (negative fever), + headaches, + nausea/vomiting (negative vomiting) and + shortness of breath The patient is a 78 year old female who presents to the Emergency Room with comp laints of facial pain following a root canal 3 days ago. She states that for the procedure she was injected with Novocain, but still had a lot of pain. After she returned home, she noticed pain in a tooth that she had a root canal for 2 years ago. She called and scheduled an appointment with the doctor, who started her on an antibiotic on Sunday. She started taking this Sunday afternoon, but has not had any resolution of her symptoms. She states that the pain has spread up the left side of her face and is causing a headache. She describes it as a soreness that comes in waves. She has a history of diabetes and her sugar has been normal recently. She complains of chills, nausea, headache, shortness of breath. She has no history of asthma or COPD, but has an inhaler from a case of bronchitis. Home Medications Home Medications Medication Instructions Recorded Confirmed Type aspirin 81 mg tablet,delayed 81 mg PO BID 09/19/18 12/16/18 History release insulin aspart (U-100) 100 unit/mL See Rx Instructions SQ BID 90 Days 09/19/18 12/16/18 Rx (3 mL) subcutaneous pen #15 ml nitroglycerin 0.4 mg sublingual 0.4 mg SL Q5M PRN 90 Days #30 tab 09/19/18 12/16/18 Rx tablet sodium chloride 0.65 % nasal spray 1 sprays INTNAS Q3H PRN 90 Days 09/19/18 12/16/18 Rx aerosol #30 ml Basaglar KwikPen U-100 Insulin 60 - 64 units SQ HS 10/29/18 12/16/18 History fluticasone propionate 2 sprays INTNAS BID 10/29/18 12/16/18 History metoprolol succinate 50 mg PO HS 10/29/18 12/16/18 History mv,Ca,min-folic acid-vit K1 1 tab PO QAM 11/16/18 12/16/18 History [One-A-Day Women's 50 Plus] vitamins A,C,F-zsax-clzyrj 1 tab PO BID 11/16/18 12/16/18 History [PreserVision AREDS] escitalopram 20 mg tablet 20 mg PO QPM #30 tab 11/18/18 12/16/18 Rx gabapentin 600 mg tablet 600 mg PO TID 90 Days #270 tab 11/18/18 12/16/18 Rx azelastine 137 mcg (0.1 %) nasal 2 sprays INTNAS BID #30 ml 12/04/18 12/16/18 History spray aerosol epinephrine 0.3 mg/0.3 mL 0.3 ml IM UD PRN ea 12/04/18 12/16/18 History injection, auto-injector melatonin-pyridoxine HCl (vitamin 1 tab PO HS tab 12/04/18 12/16/18 History B6) 1 mg-10 mg tablet propylene glycol 0.6 % eye drops 1 drops OP BID PRN 12/04/18 12/16/18 History cholecalciferol (vitamin D3) 5,000 5,000 units PO DAILY #30 cap 12/10/18 12/16/18 Rx unit capsule clindamycin HCl 300 mg PO QID 12/16/18 12/16/18 History Allergies Allergy/AdvReac Type Severity Reaction Status Date / Time Bactrim Allergy Severe THROAT Verified 05/14/15 15:22 CLOSED meperidine Allergy Severe almost Unverified 12/16/18 23:26 "closed throat" midodrine Allergy Severe "almost Unverified 12/16/18 23:26 closed throat" Penicillins Allergy Severe ANAPHYLAXIS Unverified 12/16/18 23:26 Quinolones Allergy Severe TOLERATED Verified 12/16/18 23:26 LEVAQUIN IV - SEP 06 sulfamethoxazole Allergy Severe THROAT Verified 12/16/18 23:26 CLOSED trimethoprim Allergy Severe THROAT Verified 12/16/18 23:26 CLOSED diphenoxylate Allergy Intermediate Unknown Verified 12/16/18 23:26 glyburide Allergy Intermediate SEVERE Verified 12/16/18 23:26 ABDOMINAL PAIN metformin Allergy Intermediate SEVERE Verified 12/16/18 23:26 ABDOMINAL PAIN nitrofurantoin Allergy Intermediate Unknown Verified 12/16/18 23:26 oxycodone Allergy Intermediate SEVERE Verified 12/11/18 13:04 WITHDRAWAL SYMPTOMS WHEN TRYING TO STOP TAKING ranitidine Allergy Intermediate Unknown Verified 12/16/18 23:26 repaglinide Allergy Intermediate Unknown Verified 12/16/18 23:26 rosiglitazone Allergy Intermediate Unknown Verified 12/16/18 23:26 DENILSON Inhibitors Allergy Unknown unknown to Unverified 12/11/18 13:04 pt atropine Allergy Unknown Unknown Verified 12/16/18 23:26 Histamine H2 Inhibitors Allergy Unknown unknown to Unverified 12/11/18 13:04 pt Iodinated Contrast Media Allergy Unknown JULY 2017 Verified 12/11/18 13:04 [facility] -- TOLERATED WITH SLOW INFUSION PER PATIENT phenazopyridine Allergy Unknown Unknown Verified 12/16/18 23:26 carvedilol Allergy Unknown Verified 12/11/18 13:04 metronidazole [From Flagyl] Allergy Hives Verified 12/17/18 02:05 carbamazepine AdvReac Severe Unknown Verified 12/16/18 23:26 valproic acid AdvReac Severe Unknown Verified 12/16/18 23:26 albuterol AdvReac Intermediate UNK Verified 12/11/18 13:04 olanzapine AdvReac Intermediate Unknown Verified 12/16/18 23:26 paroxetine AdvReac Intermediate DID NOT Verified 12/11/18 13:04 HELP rofecoxib AdvReac Intermediate Unknown Verified 12/16/18 23:26 temazepam AdvReac Intermediate DID NOT Verified 12/11/18 13:04 HELP diazepam AdvReac Mild SEDATION Verified 12/11/18 13:04 LASTING TOO LONG ibuprofen AdvReac Mild Unknown Verified 12/16/18 23:26 lisinopril AdvReac Mild UNK Verified 12/11/18 13:04 mirtazapine AdvReac Mild Unknown Verified 12/16/18 23:26 Past Med/Surg History Medical History Anxiety Arrhythmia "AN EXTRA HEARTBEAT" Breast cancer UNSURE WHICH SIDE WAS CANCER. Chronic back pain Chronic kidney disease MONITORING Chronic neck pain TO HAVE NECK SURGERY WITH DR AMANDA Roberts Diabetes mellitus, type 2 IDDM Difficult airway for intubation Dysphagia History of esophageal dilatation Hypertension Lymphedema of right arm CHRONIC Osteoarthritis Sleep apnea CPAP Uterine cancer RICHARD BSO Surgical History History of cardiac catheterization NO STENTS History of total abdominal hysterectomy BSO History of cataract surgery BILATERAL History of mastectomy BILATERAL History of knee surgery ARTHROSCOPY LEFT KNEE History of cholecystectomy History of colonoscopy History of esophagogastroduodenoscopy (EGD) Family History Mother Myocardial infarction Social History Preferred Language: Greenlandic Communication Ability: Effective License Registration Examiner Required: No Beliefs That Will Affect Care: None marital status: / Current Living Situation: Alone current occupational status: retired Feels Safe at Home: Yes Safety Concerns: Feels Safe At This Time Smoking Status: Former smoker Tobacco Type: cigarettes ; Age Started Using Tobacco: 15 ; Age Quit Using Tobacco: 30 ; packs per day: 1 ; Second Hand Exposure: Yes ; Hx Alcohol Use: No Hx Substance Use: No Childhood Exposure to Second-Hand Smoke: No Dental Care, Regularly: Yes Physical Activity Frequency: Does not Exercise Seatbelt Use: always Sunscreen Use: Yes Review of Systems See HPI for pertinent positives & negatives. and A total of 10 systems reviewed and were otherwise negative Physical Exam Vital Signs Vital Signs - 24 hr 12/16/18 22:07 12/17/18 00:03 12/17/18 02:00 Temperature 37.4 C Temperature Source Oral Sepsis Recent Fever Within 48 Hours Yes Sepsis Action Taken by Nursing No Action Required Pulse Rate 84 Pulse Rate [Right Finger] 72 71 Respiratory Rate 20 18 20 Respiratory Effort / Characteristics Non-Labored Spontaneous Respiratory Depth Normal Blood Pressure 133/73 Blood Pressure [Left Arm] 144/66 H 155/72 H Blood Pressure Mean 93 Blood Pressure Mean [Left Arm] 92 99 Pulse Oximetry 94 93 94 Oxygen Delivery Method Room Air Room Air Room Air GENERAL: Awake, uncomfortable-appearing. HENT: Normocephalic, atraumatic. Oropharynx with dry mucous membranes and otherwise unremarkable. Moderate left sided facial edema with overlying erythema and warmth. No crepitus. No tongue elevation or trismus. No pain with tracheal manipulation. No stridor. EYES: Normal conjunctiva. Sclera non-icteric. Chronic right eye strabismus. Left eye with EOMI. PEARRL. NECK: Supple. No nuchal rigidity. FROM. No JVD. RESPIRATORY: CTAB CARDIAC: Regular rate, normal rhythm. Extremities warm and well perfused. Pulses equal. ABDOMEN: Soft, non-distended. No tenderness to palpation. No rebound or guarding. No masses. RECTAL: Deferred. MUSCULOSKELETAL: Chest examination reveals no tenderness. The back is symmetrical on inspection without obvious abnormality. There is no CVA tenderness to palpation. No joint edema. LOWER EXTREMITIES: Calves are equal size bilaterally and non-tender. No edema. No discoloration. NEURO: Normal sensorium. No sensory or motor deficits noted. SKIN: No rash or jaundice noted. Course 225: Past medical records reviewed. The patient was evaluated in room C12B. A complete history and physical exam was performed. 0214: I paged [facility] hospitalist, Dr. Del Valle, regarding the patient. 0250: Case d/w Dr. Broderick, [facility] hospitalist, who will evaluate the patient for admission. Administered Medications Ioversol (Optiray 320 100ml) 100 ml IV ONCE PRN PRN Reason: Interaction Checking Stop: 12/21/18 00:56 Last Admin: 12/17/18 00:58 Dose: 92 ml Documented by: [id number] Discontinued Medications Dexamethasone Sodium Phosphate (Decadron Pf) Confirm Administered Dose 10 mg .ROUTE .STK-MED ONE Stop: 12/17/18 00:09 Last Admin: 12/17/18 00:11 Dose: 10 mg Documented by: [id number] Diphenhydramine HCl (Benadryl) 25 mg IV NOW STA Stop: 12/16/18 23:19 Last Admin: 12/17/18 00:10 Dose: 25 mg Documented by: [id number] Diphenhydramine HCl (Benadryl) 25 mg IV NOW STA Stop: 12/17/18 02:05 Last Admin: 12/17/18 02:10 Dose: 25 mg Documented by: [id number] Metronidazole (Flagyl) 500 mg in 100 mls @ 100 mls/hr IV NOW STA Stop: 12/17/18 00:02 Last Infusion: 12/17/18 02:03 Dose: 0 mls/hr Documented by: [id number] Admin: 12/17/18 01:50 Dose: 100 mls/hr Documented by: [id number] Dexamethasone Sodium Phosphate (10 mg/ Syringe) 2.5 mls @ 1 mls/min IV NOW STA Stop: 12/16/18 23:03 Last Admin: 12/17/18 00:13 Dose: Not Given Documented by: [id number] Vancomycin HCl 2,000 mg/ (Sodium Chloride) 540 mls @ 200 mls/hr IV NOW ONE Stop: 12/17/18 01:42 Last Infusion: 12/17/18 04:13 Dose: 0 mls/hr Documented by: [id number] Admin: 12/17/18 01:30 Dose: 200 mls/hr Documented by: [id number] Cefepime HCl (Maxipime) 2,000 mg in 20 mls @ 5 mls/min IV NOW STA; Protocol Stop: 12/16/18 23:06 Last Admin: 12/17/18 01:21 Dose: 5 mls/min Documented by: [id number] Acetaminophen (Ofirmev) 1,000 mg in 100 mls @ 400 mls/hr IV NOW STA Stop: 12/16/18 23:24 Last Infusion: 12/17/18 00:31 Dose: 0 mls/hr Documented by: [id number] Admin: 12/17/18 00:12 Dose: 400 mls/hr Documented by: [id number] Insulin Glargine (Lantus Solostar Pen) 64 units SQ NOW STA Stop: 12/17/18 03:15 Last Admin: 12/17/18 03:31 Dose: 40 units Documented by: [id number] Cosigned by: [id number] Medical Decision Making Differential Diagnosis Differential diagnosis includes: viral syndrome, tonsillitis, streptococcal pharyngitis, mononucleosis, peritonsillar abscess, retropharyngeal abscess, otitis, pneumonia, influenza, as well as others were entertained. Medical Records Attestation: I reviewed the patient's medical records. Home Medications Current Medication List: was personally reviewed by me Laboratory Data Attestation: I reviewed the patient's lab results. Result diagrams: 12/16/18 23:49 12/16/18 23:49 Lab Results 12/16/18 12/16/18 12/16/18 Range/Units 23:49 23:49 23:49 WBC 5.79 (4.8-10.8) K/uL RBC 5.15 (4.2-5.4) M/uL Hgb 12.7 (12.0-16.0) g/dL Hct 39.8 (37-47) % MCV 77.3 L (80-100) fL MCH 24.7 L (25-34) pg MCHC 31.9 L (32-36) g/dL RDW Std Deviation 39.5 (36.4-46.3) fL RDW Coeff of Tim 14.0 (11.5-14.5) % Plt Count 99 L (130-400) K/uL MPV 9.1 (7.4-10.4) fL Immature Gran % (Auto) 0.5 % Neut % (Auto) 76.4 % Lymph % (Auto) 13.8 % Mcnairy % (Auto) 8.1 % Eos % (Auto) 0.9 % Baso % (Auto) 0.3 % Immature Gran # (Auto) 0.03 H (0.00-0.02) K/uL Neut # (Auto) 4.42 (1.4-6.5) K/uL Lymph # (Auto) 0.80 L (1.2-3.4) K/uL Mcnairy # (Auto) 0.47 (0.11-0.59) K/uL Eos # (Auto) 0.05 (0-0.5) K/uL Baso # (Auto) 0.02 (0-0.2) K/uL Platelet Estimate Decreased L (Normal) PT 11.8 (9.0-12.0) Seconds INR 1.2 H (0.9-1.1) APTT 24.2 (21.0-31.0) Seconds PTT Ratio 0.9 Sodium 137 (136-145) mmol/L Potassium 5.0 (3.5-5.1) mmol/L Chloride 102 (98-107) mmol/L Carbon Dioxide 28 (21-32) mmol/L Anion Gap 7.0 (3-11) BUN 24 H (7-18) mg/dl Creatinine 1.53 H (0.6-1.2) mg/dl Est Cr Clr Drug Dosing 32.6 ml/min Est GFR ( Amer) 37.4 Est GFR (Non-Af Amer) 32.2 BUN/Creatinine Ratio 15.6 (10-20) Glucose 191 H (70-99) mg/dl POC Glucose (70-99) Lactate (0.4-2.0) mmol/L Calcium 8.8 (8.5-10.1) mg/dl Total Bilirubin 1.2 H (0.2-1) mg/dl Direct Bilirubin 0.2 (0-0.2) mg/dl AST 17 (15-37) U/L ALT 21 (12-78) U/L Alkaline Phosphatase 77 (45-117) U/L Total Protein 7.3 (6.4-8.2) gm/dl Albumin 3.1 L (3.4-5.0) gm/dl Globulin 4.2 H (2.5-4.0) gm/dl Albumin/Globulin Ratio 0.7 L (0.9-2) 12/16/18 12/17/18 Range/Units 23:49 03:21 WBC (4.8-10.8) K/uL RBC (4.2-5.4) M/uL Hgb (12.0-16.0) g/dL Hct (37-47) % MCV (80-100) fL MCH (25-34) pg MCHC (32-36) g/dL RDW Std Deviation (36.4-46.3) fL RDW Coeff of Tim (11.5-14.5) % Plt Count (130-400) K/uL MPV (7.4-10.4) fL Immature Gran % (Auto) % Neut % (Auto) % Lymph % (Auto) % Mcnairy % (Auto) % Eos % (Auto) % Baso % (Auto) % Immature Gran # (Auto) (0.00-0.02) K/uL Neut # (Auto) (1.4-6.5) K/uL Lymph # (Auto) (1.2-3.4) K/uL Mcnairy # (Auto) (0.11-0.59) K/uL Eos # (Auto) (0-0.5) K/uL Baso # (Auto) (0-0.2) K/uL Platelet Estimate (Normal) PT (9.0-12.0) Seconds INR (0.9-1.1) APTT (21.0-31.0) Seconds PTT Ratio Sodium (136-145) mmol/L Potassium (3.5-5.1) mmol/L Chloride (98-107) mmol/L Carbon Dioxide (21-32) mmol/L Anion Gap (3-11) BUN (7-18) mg/dl Creatinine (0.6-1.2) mg/dl Est Cr Clr Drug Dosing ml/min Est GFR ( Amer) Est GFR (Non-Af Amer) BUN/Creatinine Ratio (10-20) Glucose (70-99) mg/dl POC Glucose 203 H (70-99) Lactate 1.8 (0.4-2.0) mmol/L Calcium (8.5-10.1) mg/dl Total Bilirubin (0.2-1) mg/dl Direct Bilirubin (0-0.2) mg/dl AST (15-37) U/L ALT (12-78) U/L Alkaline Phosphatase (45-117) U/L Total Protein (6.4-8.2) gm/dl Albumin (3.4-5.0) gm/dl Globulin (2.5-4.0) gm/dl Albumin/Globulin Ratio (0.9-2) Imaging Data Attestation: I personally reviewed and interpreted this imaging study as follows: Radiologist's Impression: STATRAD: Preliminary Findings Only See Final Report For Complete Findings CT HEAD: No intracranial hemorrhage, midline shift or mass effect. No skull fracture. Incidental probable calcified and meningioma involving the right temporal region is not significantly altered measuring 15 mm from 13 mm on examination dated 05/13/2015. No significant mass effect. Mild cerebral atrophy with periventricular deep white matter presumed microvascu lar changes is not significantly altered. Paranasal sinuses and mastoid air cells are well-aerated. Radiologist: Santhosh Gustafson MD Study ready at 01:00 and initial results transmitted at 01:08 Preliminary Findings Only See Final Report For Complete Findings CT FACIAL: Subtle asymmetric increased subcutaneous fat density overlying the left mandible extending superiorly to the left facial region and inferior periorbital region. Findings suggest left facial cellulitis. No subcutaneous abscess identified. Dental hardware causes beam hardening artifact through the oral region. However, no obvious dental source for the soft tissue swelling is identified. Minimal mucosal thickening involving the inferior left maxillary sinus. The remaining paranasal sinuses are well-aerated. The orbits and globes are intact. The post-septal fat is maintained bilaterally. The visualized intracranial examination is unremarkable. Radiologist: Santhosh Gustafson MD Study ready at 00:59 and initial results transmitted at 01:13 ECG Data Rate (beats per minute): 100 MDM Narrative The patient is a pleasant 78-year-old woman with a past medical history of diabetes, CKD, hypertension, hyperlipidemia who presents emergency department with worsening left-sided facial swelling in the setting of having a root canal on Sunday per hpi. On arrival patient is uncomfortable, afebrile stable vital signs. On exam the patient has moderate swelling and erythema with overlying warmth to the left maxillary region without crepitus. No posterior pharyngeal e lolis, exudates, tongue elevation or trismus. No pain with tracheal manipulation. No stridor. WBC, H/H within normal limits. Platelets 99 similar to prior range of values. Chemistry without acidosis. Creatinine 1.5 slightly increased from recent however within prior range of values. Lactate 1.8. Electrolytes and LFTs otherwise unremarkable. CT of the head without contrast and face with contrast, negative for deep infection or abscess. Otherwise does demonstrate evidence of cellulitis although minimal given patient's rapid and significant improvement after dose of dexamethasone (as well as Benadryl for pretreatment for her CT with contrast.) Patient treated with Cefepime, Vancomycin. Flagyl initiated but patient developed localized reaction of erythema at IV site, which may be related to IV formulation but not necessarily Flagyl itself. However discontinued. Upon reevaluation the patient's facial swelling and redness had significantly improved. However given the patient's comorbidities related to her diabetes as well as failed outpatient management on clindamycin reasonable to admit the patient for further management. Case was ultimately discussed with Dr. Broderick, [facility] hospitalist, who will evaluate the patient for admission. Impression & Plan Cellulitis of face, CKD (chronic kidney disease), IDDM (insulin dependent diabetes mellitus) Discharge Plan Visit Data *Final* Discharge Date/Time: 12/17/18 04:29 Chief Complaint: Facial Injury/Pain Stated Complaint: SWELLING OF FACE, INFECTION FROM TOOTH ED Provider: Froy Clifton Discharge Problem: Cellulitis of face, CKD (chronic kidney disease), IDDM (insulin dependent diabetes mellitus) Patient Disposition: Admitted As Inpatient Discharge Instructions Interventions: ED Discharge Assessment Last Done: 12/17/18 04:29 Discharge Problem: CKD (chronic kidney disease) Qualifiers: Chronic kidney disease stage: unspecified stage Qualified Code(s): N18.9 - Chronic kidney disease, unspecified The scribe's documentation has been prepared under my direction and personally reviewed by me in its entirety. I confirm that the note above accurately reflects all work, treatment, procedures, and medical decision making performed by me.
[2018-12-17] MEDS ORDERED: IOVERSOL 100ml IV PRN (00:57)
[2018-12-17] MEDS ORDERED: DiphenhydrAMINE HCL 50 MG/ML VIAL IV STA ×2 (02:04→23:31)
[2018-12-17] MEDS ORDERED: LANTUS PER UNIT CHARGE SQ STA (02:48)
[2018-12-17] MEDS ORDERED: INSULIN GLARGINE SOLOSTAR 100 UNITS/ML 3 ML PEN SQ STA (03:14)
--- NOTE | 2018-12-17 03:40 | History & Physical Report ---
Date of Service December 17, 2018 Assessment & Plan (1) Cellulitis of face: Continue vancomycin IV and cefepime IV begun in the ED. Patient did receive Decadron 10 mg IV and Benadryl 25 mg IV prior to going to CAT scan, which did also significantly improve her symptoms. Will hold on any further steroids and monitor her sugar closely. Present on Admission?: Yes (2) CKD (chronic kidney disease): Creatinine on admission 1.53. Patient ranges from 1.1-1.5 to. She reports overall decreased oral intake over the past 2 to 3 days. We will give 1 L of IV saline. Follow serial laboratories Present on Admission?: Yes (3) IDDM (insulin dependent diabetes mellitus): Patient reports that the last hemoglobin A1c was 6.8. She did not receive her usual 60 units of Lantus overnight. Since it is now 4 AM will give her 40 units of Lantus now, and should be able to resume her usual dosing in the a.m., but the knee may need to be modified for decreased oral intake Present on Admission?: Yes (4) Neuropathy: Continue gabapentin 600 mg p.o. 3 times daily Present on Admission?: Yes (5) Hypertension: Continue metoprolol succinate 50 mg p.o. daily with the usual hold parameters. Present on Admission?: Yes History of Present Illness Chief Complaint: The patient presents to the emergency department with persistent and worsening left-sided facial swelling and pain following a root canal performed 3 days previously. Primary Care Provider: Darwin Lugo III, HARVINDER The patient is a 78-year-old female with a past medical history including diabetes mellitus, chronic kidney disease, IDDM, uterine cancer, peripheral neuropathy and hypertension, who presents to the emergency department with persistently worsening swelling or redness of the left side of her face status post root canal surgery 3 days previously. She did receive Novocain injections prior to the surgery. She was started on an outpatient antibiotic on Sunday. She in general otherwise feels about the same she is with chronic neck pain for which she is undergoing surgery soon, but she has no new generalized myalgias and arthralgias. Allergies Allergy/AdvReac Type Severity Reaction Status Date / Time Bactrim Allergy Severe THROAT Verified 05/14/15 15:22 CLOSED meperidine Allergy Severe almost Unverified 12/16/18 23:26 "closed throat" midodrine Allergy Severe "almost Unverified 12/16/18 23:26 closed throat" Penicillins Allergy Severe ANAPHYLAXIS Unverified 12/16/18 23:26 Quinolones Allergy Severe TOLERATED Verified 12/16/18 23:26 LEVAQUIN IV - ELIO 07 sulfamethoxazole Allergy Severe THROAT Verified 12/16/18 23:26 CLOSED trimethoprim Allergy Severe THROAT Verified 12/16/18 23:26 CLOSED diphenoxylate Allergy Intermediate Unknown Verified 12/16/18 23:26 glyburide Allergy Intermediate SEVERE Verified 12/16/18 23:26 ABDOMINAL PAIN metformin Allergy Intermediate SEVERE Verified 12/16/18 23:26 ABDOMINAL PAIN nitrofurantoin Allergy Intermediate Unknown Verified 12/16/18 23:26 oxycodone Allergy Intermediate SEVERE Verified 12/11/18 13:04 WITHDRAWAL SYMPTOMS WHEN TRYING TO STOP TAKING ranitidine Allergy Intermediate Unknown Verified 12/16/18 23:26 repaglinide Allergy Intermediate Unknown Verified 12/16/18 23:26 rosiglitazone Allergy Intermediate Unknown Verified 12/16/18 23:26 DENILSON Inhibitors Allergy Unknown unknown to Unverified 12/11/18 13:04 pt atropine Allergy Unknown Unknown Verified 12/16/18 23:26 Histamine H2 Inhibitors Allergy Unknown unknown to Unverified 12/11/18 13:04 pt Iodinated Contrast Media Allergy Unknown JULY 2017 Verified 12/11/18 13:04 [facility] -- TOLERATED WITH SLOW INFUSION PER PATIENT phenazopyridine Allergy Unknown Unknown Verified 12/16/18 23:26 carvedilol Allergy Unknown Verified 12/11/18 13:04 metronidazole [From Flagyl] Allergy Hives Verified 12/17/18 02:05 carbamazepine AdvReac Severe Unknown Verified 12/16/18 23:26 valproic acid AdvReac Severe Unknown Verified 12/16/18 23:26 albuterol AdvReac Intermediate UNK Verified 12/11/18 13:04 olanzapine AdvReac Intermediate Unknown Verified 12/16/18 23:26 paroxetine AdvReac Intermediate DID NOT Verified 12/11/18 13:04 HELP rofecoxib AdvReac Intermediate Unknown Verified 12/16/18 23:26 temazepam AdvReac Intermediate DID NOT Verified 12/11/18 13:04 HELP diazepam AdvReac Mild SEDATION Verified 12/11/18 13:04 LASTING TOO LONG ibuprofen AdvReac Mild Unknown Verified 12/16/18 23:26 lisinopril AdvReac Mild UNK Verified 12/11/18 13:04 mirtazapine AdvReac Mild Unknown Verified 12/16/18 23:26 Home Medications Home Medications Medication Instructions Recorded Confirmed Type aspirin 81 mg tablet,delayed 81 mg PO BID 09/19/18 12/16/18 History release insulin aspart (U-100) 100 unit/mL See Rx Instructions SQ BID 90 Days 09/19/18 12/16/18 Rx (3 mL) subcutaneous pen #15 ml nitroglycerin 0.4 mg sublingual 0.4 mg SL Q5M PRN 90 Days #30 tab 09/19/18 12/16/18 Rx tablet sodium chloride 0.65 % nasal spray 1 sprays INTNAS Q3H PRN 90 Days 09/19/18 12/16/18 Rx aerosol #30 ml Basaglar KwikPen U-100 Insulin 60 - 64 units SQ HS 10/29/18 12/16/18 History fluticasone propionate 2 sprays INTNAS BID 10/29/18 12/16/18 History metoprolol succinate 50 mg PO HS 10/29/18 12/16/18 History mv,Ca,min-folic acid-vit K1 1 tab PO QAM 11/16/18 12/16/18 History [One-A-Day Women's 50 Plus] vitamins A,C,H-zaqb-ucrsbo 1 tab PO BID 11/16/18 12/16/18 History [PreserVision AREDS] escitalopram 20 mg tablet 20 mg PO QPM #30 tab 11/18/18 12/16/18 Rx gabapentin 600 mg tablet 600 mg PO TID 90 Days #270 tab 11/18/18 12/16/18 Rx azelastine 137 mcg (0.1 %) nasal 2 sprays INTNAS BID #30 ml 12/04/18 12/16/18 History spray aerosol epinephrine 0.3 mg/0.3 mL 0.3 ml IM UD PRN ea 12/04/18 12/16/18 History injection, auto-injector melatonin-pyridoxine HCl (vitamin 1 tab PO HS tab 12/04/18 12/16/18 History B6) 1 mg-10 mg tablet propylene glycol 0.6 % eye drops 1 drops OP BID PRN 12/04/18 12/16/18 History cholecalciferol (vitamin D3) 5,000 5,000 units PO DAILY #30 cap 12/10/18 12/16/18 Rx unit capsule clindamycin HCl 300 mg PO QID 12/16/18 12/16/18 History Past Med/Surg History Medical History Anxiety Arrhythmia "AN EXTRA HEARTBEAT" Breast cancer UNSURE WHICH SIDE WAS CANCER. Chronic back pain Chronic kidney disease MONITORING Chronic neck pain TO HAVE NECK SURGERY WITH DR AMANDA Roberts Diabetes mellitus, type 2 IDDM Difficult airway for intubation Dysphagia History of esophageal dilatation Hypertension Lymphedema of right arm CHRONIC Osteoarthritis Sleep apnea CPAP Uterine cancer RICHARD BSO Surgical History History of cardiac catheterization NO STENTS History of total abdominal hysterectomy BSO History of cataract surgery BILATERAL History of mastectomy BILATERAL History of knee surgery ARTHROSCOPY LEFT KNEE History of cholecystectomy History of colonoscopy History of esophagogastroduodenoscopy (EGD) Family History Mother Myocardial infarction Social History Preferred Language: Citizen Of [place] Communication Ability: Effective 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 Beliefs That Will Affect Care: None marital status: / Current Living Situation: Alone current occupational status: retired Feels Safe at Home: Yes Safety Concerns: Feels Safe At This Time Smoking Status: Former smoker Tobacco Type: cigarettes ; Age Started Using Tobacco: 15 ; Age Quit Using Tobacco: 30 ; packs per day: 1 ; Second Hand Exposure: Yes ; Hx Alcohol Use: No Hx Substance Use: No Childhood Exposure to Second-Hand Smoke: No Dental Care, Regularly: Yes Physical Activity Frequency: Does not Exercise Seatbelt Use: always Sunscreen Use: Yes Review of Systems Review of Systems: The patient denies chest pain, palpitations, shortness of breath, dyspnea on exertion, cough, lower extremity swelling, sore throat, fevers, chills, sweats, nausea, vomiting, diarrhea , constipation, abdominal pain, pelvic pain, blood in urine or stool, dysuria, urinary frequency or urgency, loss of consciousness, abnormal bruising or bleeding, imbalance, focal weakness, numbness or tingling in arms or legs, generalized arthralgias or myalgias, or night sweats. The review of systems is otherwise negative other than for that already noted above, and at least 10 systems have been reviewed. Physical Exam Physical Exam: The patient is awake, alert and oriented 3, well developed and well nourished, normocephalic and atraumatic, lying in bed and in no acute distress. HEENT--PERRL, EOMI, mucous membranes and oropharynx normal. Mild facial asymmetry, left more full than right. Neck--supple. No JVD. No bruits. Thyroid normal, trachea midline, no ad enopathy. Heart--normal S1 and S2. No murmurs, rubs or gallops. Lungs--clear bilaterally, no respiratory distress, no accessory muscle use. Abdomen--normal bowel sounds and soft. Nontender. Nondistended. Obese. Extremities--no cyanosis or clubbing. No edema. There are good distal pulses b/l. Dermatologic--normal skin turgor, normal color, no abnormal lymph nodes, no rash. Neurologic--cranial nerves II through XII grossly intact. Rheumatologic--normal range of motion. Psychiatric--normal affect. Results & Data Vital Signs (Past 12 Hours) Vital Signs Temp Pulse Pulse Resp BP BP Pulse Ox 12/17/18 02:00 71 20 155/72 H 94 12/17/18 00:03 72 18 144/66 H 93 12/16/18 22:07 99.3 F 84 20 133/73 94 Laboratory Results Laboratory Results WBC 5.79 K/uL (4.8-10.8) 12/16/18 23:49 RBC 5.15 M/uL (4.2-5.4) 12/16/18 23:49 Hgb 12.7 g/dL (12.0-16.0) 12/16/18 23:49 Hct 39.8 % (37-47) 12/16/18 23:49 MCV 77.3 fL (80-100) L 12/16/18 23:49 MCH 24.7 pg (25-34) L 12/16/18 23:49 MCHC 31.9 g/dL (32-36) L 12/16/18 23:49 RDW Std Deviation 39.5 fL (36.4-46.3) 12/16/18 23:49 RDW Coeff of Tim 14.0 % (11.5-14.5) 12/16/18 23:49 Plt Count 99 K/uL (130-400) L 12/16/18 23:49 MPV 9.1 fL (7.4-10.4) 12/16/18 23:49 Immature Gran % (Auto) 0.5 % 12/16/18 23:49 Neut % (Auto) 76.4 % 12/16/18 23:49 Lymph % (Auto) 13.8 % 12/16/18 23:49 [place] % (Auto) 8.1 % 12/16/18 23:49 Eos % (Auto) 0.9 % 12/16/18 23:49 Baso % (Auto) 0.3 % 12/16/18 23:49 Immature Gran # (Auto) 0.03 K/uL (0.00-0.02) H 12/16/18 23:49 Neut # (Auto) 4.42 K/uL (1.4-6.5) 12/16/18 23:49 Lymph # (Auto) 0.80 K/uL (1.2-3.4) L 12/16/18 23:49 [place] # (Auto) 0.47 K/uL (0.11-0.59) 12/16/18 23:49 Eos # (Auto) 0.05 K/uL (0-0.5) 12/16/18 23:49 Baso # (Auto) 0.02 K/uL (0-0.2) 12/16/18 23:49 Platelet Estimate Decreased (Normal) L 12/16/18 23:49 PT 11.8 Seconds (9.0-12.0) 12/16/18 23:49 INR 1.2 (0.9-1.1) H 12/16/18 23:49 APTT 24.2 Seconds (21.0-31.0) 12/16/18 23:49 PTT Ratio 0.9 12/16/18 23:49 Sodium 137 mmol/L (136-145) 12/16/18 23:49 Potassium 5.0 mmol/L (3.5-5.1) 12/16/18 23:49 Chloride 102 mmol/L (98-107) 12/16/18 23:49 Carbon Dioxide 28 mmol/L (21-32) 12/16/18 23:49 Anion Gap 7.0 (3-11) 12/16/18 23:49 BUN 24 mg/dl (7-18) H 12/16/18 23:49 Creatinine 1.53 mg/dl (0.6-1.2) H 12/16/18 23:49 Est Cr Clr Drug Dosing 32.6 ml/min 12/16/18 23:49 Est GFR ( Amer) 37.4 12/16/18 23:49 Est GFR (Non-Af Amer) 32.2 12/16/18 23:49 BUN/Creatinine Ratio 15.6 (10-20) 12/16/18 23:49 Glucose 191 mg/dl (70-99) H 12/16/18 23:49 POC Glucose 203 (70-99) H 12/17/18 03:21 Lactate 1.8 mmol/L (0.4-2.0) 12/16/18 23:49 Calcium 8.8 mg/dl (8.5-10.1) 12/16/18 23:49 Total Bilirubin 1.2 mg/dl (0.2-1) H 12/16/18 23:49 Direct Bilirubin 0.2 mg/dl (0-0.2) 12/16/18 23:49 AST 17 U/L (15-37) 12/16/18 23:49 ALT 21 U/L (12-78) 12/16/18 23:49 Alkaline Phosphatase 77 U/L (45-117) 12/16/18 23:49 Total Protein 7.3 gm/dl (6.4-8.2) 12/16/18 23:49 Albumin 3.1 gm/dl (3.4-5.0) L 12/16/18 23:49 Globulin 4.2 gm/dl (2.5-4.0) H 12/16/18 23:49 Albumin/Globulin Ratio 0.7 (0.9-2) L 12/16/18 23:49 Diagnostic Findings [facility] Patient: HILARIO ZAMUDIO (Female) Age: 78 MR #: [id number] Status: ER Date: 12/17/18 00:55 Slices: 59 History: FELL AND HIT RIGHT SIDE OF HEAD Priors: Tech: Steve Siegelie @ [phone] Exams: CT HEAD Accession Numbers: [id number] Preliminary Findings Only See Final Report For Complete Findings CT HEAD: No intracranial hemorrhage, midline shift or mass effect. No skull fracture. Incidental probable calcified and meningioma involving the right temporal region is not significantly altered measuring 15 mm from 13 mm on examination dated 05/13/2015. No significant mass effect. Mild cerebral atrophy with periventricular deep white matter presumed microvascular changes is not significantly altered. Paranasal sinuses and mastoid air cells are well-aerated. Radiologist: Santhosh Gustafson MD Study ready at 01:00 and initial results transmitted at 01:08 *This report constitutes a preliminary interpretation only. Non-acute findings felt to be unrelated to the clinical presentation may not be discussed in this report. The study will be interpreted and a final report will be generated by the local Radiologist the following shift. To reach the hospital radiology department call [phone]. If a discrepancy is found between the preliminary and final interpretations of this study, please notify us via our Client Portal at [email or web address] under [email or web address] [email or web address].You can also fax this report with a description of the discrepancy, or include the final report, to our daytime fax number [phone].If faxing, please indicate the severity of discrepancy using one of the following categories: [ ] 1 - Agree/Informational [ ] 2 - Unlikely to Affect Management [ ] 3 - Possible Eventual Change of Management [ ] 4 - Probable Immediate Change of Management For all other patient related information, please fax us at [phone]. [facility] Patient: HILARIO ZAMUDIO (Female) Age: 78 MR #: [id number] Status: ER Date: 12/17/18 00:56 Slices: 814 History: SWELLING TO LEFT SIDE OF FACE AT [place] ARE[place] Priors: Tech: Star Siegel @ [phone] Exams: CT FACIAL Contrast: IV Amt: 92 ML OPTIRAY 320 Accession Numbers: [id number] Preliminary Findings Only See Final Report For Complete Findings CT FACIAL: Subtle asymmetric increased subcutaneous fat density overlying the left mandible extending superiorly to the left facial region and inferior periorbital region. Findings suggest left facial cellulitis. No subcutaneous abscess identified. Dental hardware causes beam hardening artifact through the oral region. However, no obvious dental source for the soft tissue swelling is identified. Minimal mucosal thickening involving the inferior left maxillary sinus. The remaining paranasal sinuses are well-aerated. The orbits and globes are intact. The post-septal fat is maintained bilaterally. The visualized intracranial examination is unremarkable. Radiologist: Santhosh Gustafson MD Study ready at 00:59 and initial results transmitted at 01:13 *This report constitutes a preliminary interpretation only. Non-acute findings felt to be unrelated to the clinical presentation may not be discussed in this report. The study will be interpreted and a final report will be generated by the local Radiologist the following shift. To reach the hospital radiology department call [phone]. If a discrepancy is found between the preliminary and final interpretations of this study, please notify us via our Client Portal at [email or web address].You can also fax this report with a description of the discrepancy, or include the final report, to our daytime fax number [phone].If faxing, please indicate the severity of discrepancy using one of the following categories: [ ] 1 - Agree/Informational [ ] 2 - Unlikely to Affect Management [ ] 3 - Possible Eventual Change of Management [ ] 4 - Probable Immediate Change of Management For all other patient related information, please fax us at [phone]. [id number] Code Status & VTE Plan Code Status Full code VTE Prophylaxis Plan VTE Prophylaxis will be ordered: Yes PG Care Time/CCT Total # of Minutes Spent Total Time Spent with Patient: Total time spent is greater than 50% in coordination of care (as documented) at patient's floor/unit and/or counseling patient: (1) CKD (chronic kidney disease) Chronic kidney disease stage: unspecified stage Qualified Code(s): N18.9 - Chronic kidney disease, unspecified (2) Hypertension Hypertension type: essential hypertension Qualified Code(s): I10 - Essential (primary) hypertension
[2018-12-17] MEDS ORDERED: GLUCAGON FOR INJ 1 MG VIAL SQ PRN (05:16)
[2018-12-17] MEDS ORDERED: GLUCOSE 40% GEL 15 GM TUBE PO PRN (05:16)
[2018-12-17] MEDS ORDERED: DEXTROSE 50% 50 ML SYRINGE IV PRN (05:16)
[2018-12-17] MEDS ORDERED: SODIUM CHLORIDE 0.65% NA SOLN 45 ML (OCEAN) NAE PRN (05:16)
[2018-12-17] MEDS ORDERED: ARTIFICIAL TEARS OP PRN (05:16)
[2018-12-17] MEDS ORDERED: VANCOMYCIN HCL 1,000 MG in SODIUM CHLORIDE 0.9% 250 ML IV SCH (05:16)
[2018-12-17] MEDS ORDERED: VANCOMYCIN CONSULT ACTIVE PRN (05:16)
[2018-12-17] MEDS ORDERED: MAGNESIUM HYDROXIDE SUSP 30 ML UDC PO PRN (05:16)
[2018-12-17] MEDS ORDERED: ONDANSETRON INJ 2 MG/ML 2 ML VIAL IV PRN (05:16)
[2018-12-17] MEDS ORDERED: ALUMINUM/MAGNESIUM SUSP 30 ML UDC PO PRN (05:16)
[2018-12-17] MEDS ORDERED: GLUCOSE 10 TABS/TUBE PO PRN (05:16)
[2018-12-17] MEDS ORDERED: CARBOHYDRATES FOR HYPOGLYCEMIA PO PRN (05:16)
[2018-12-17] MEDS ORDERED: NITROGLYCERIN SL 0.4 MG/TAB TAB SL PRN (05:16)
[2018-12-17] MEDS ORDERED: SODIUM CHLORIDE 0.9% 1000ML 1,000 ML IV SCH (06:15)
--- NOTE | 2018-12-17 06:36 | XRay Report ---
XR chest 1V portable CLINICAL HISTORY: Sepsis COMPARISON STUDY: Chest radiograph August 02, 2017. FINDINGS: Lung volumes are normal. Lungs are clear. There is no pneumothorax or pleural effusion. Car diac size is normal. Mediastinal contours are normal. There is no evidence for pulmonary edema. IMPRESSION: No acute cardiopulmonary findings. Electronically signed by: Kirby Anna M.D. 12/17/2018 6:33 AM
--- NOTE | 2018-12-17 07:09 | CT Scan Report ---
HEAD CT NONCONTRAST CT DOSE: 804.77 mGy.cm HISTORY: Fall. Head injury. left dental infection TECHNIQUE: Multiaxial CT images of the head were performed without the use of intravenous contrast. A utomated exposure control was utilized for this study. A dose lowering technique was utilized adheri ng to the principles of ALARA. Comparison: Head CT 05/13/2015. Findings: The paranasal sinuses and mastoid air cells are clear. The calvarium and skull base are int act. There is no hematoma, midline shift, acute infarct. White matter hypodensity is nonspecific but suggestive of microvascular ischemic change. The ventricles and sulci demonstrate mild age-related in volutional changes. 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 Impression: No significant change compared to the prior study. No acute intracranial abnormality. Electronically signed by: Javy Mcdaniel M.D. 12/17/2018 7:07 AM
--- NOTE | 2018-12-17 07:26 | CT Scan Report ---
CT facial bones w con CLINICAL HISTORY: 78 years-old Female presenting with left facial swelling, left dental facial infect ion. TECHNIQUE: Multidetector CT of the face was performed after the administration of intravenous contras t. IV contrast: 93 mL of Optiray 320. One or more dose lowering techniques were used consistent with the principles of ALARA (as low as reasonably achievable), including automatic exposure control, mA o r kV adjustment to individual patient size, and/or use of iterative reconstruction. COMPARISON: 08/18/2011. CT DOSE (mGy.cm): The estimated cumulative dose is 804.77. FINDINGS: Pig Sticker topogram: Unremarkable. Slight asymmetric swelling and superficial fat infiltration overlying the left body of the mandible. Thickening of the platysma also noted. Amalgam results in significant beam hardening artifact degrade s evaluation of the oral cavity. Mild buccal mucosal hyperemia along the left mandible. No periapical lucency or cortical destruction is evident. No rim-enhancing fluid collection. Multiple teeth are ab sent. No dental caries are grossly appreciated. Mandible is intact with intact temporomandibular join ts. Trace mucosal thickening in the left maxillary sinus. Remainder of the paranasal sinuses and mastoid air cells clear. Orbits demonstrate absence of the [place] lenses but are otherwise normal. Enhancing extra-axial mass along the right frontotemporal convexity measuring 15 x 10 mm unchanged since 2011. Atherosclerosis. Vasculature patent IMPRESSION: 1. Mild superficial swelling and fat infiltration overlying the left body of the mandible consistent with cellulitis. 2. Mild buccal mucosal hyperemia along the left mandible. No evidence of endodontic or periodontal d isease. No odontogenic abscess. 3. Stable 15 mm extra-axial mass along the right frontotemporal convexity, likely meningioma. Electronically signed by: Chi Blackwell M.D. 12/17/2018 7:25 AM
[2018-12-17 08:49] LABS: Creatinine Clr Calc Pharmacy 33.1 ml/min; Est GFR (African American) 38.6; Est GFR (Non-African American) 33.3
[2018-12-17] MEDS: FLUTICASONE PROPIONATE NA SPR 16 GM BTL NAE SCH ×2 (08:50→20:23)
[2018-12-17] MEDS: CHOLECALCIFEROL 1,000 UNITS TAB PO SCH (08:51)
[2018-12-17] MEDS: GABAPENTIN 600 MG TAB PO SCH ×3 (08:51→20:23)
[2018-12-17] MEDS: CEROVITE ADV FORMULA TAB PO SCH ×2 (08:51→20:23)
[2018-12-17] MEDS: ASPIRIN 81 MG ECTAB PO SCH ×2 (08:51→20:23)
[2018-12-17] MEDS ORDERED: [UNRECOGNIZED DRUG - OTHER] PO SCH (09:00)
[2018-12-17] MEDS ORDERED: MULTIVITAMIN PO SCH (09:00)
[2018-12-17] MEDS ORDERED: CALCIUM PO SCH (09:00)
[2018-12-17] MEDS ORDERED: PHYTONADIONE PO SCH (09:00)
[2018-12-17] MEDS: INSULIN ASPART 100 UNITS/ML 3 ML PEN SC SCH ×4 (09:00→20:27)
[2018-12-17] MEDS ORDERED: FOLIC ACID PO SCH (09:00)
[2018-12-17] MEDS: AZELASTINE~ORDER AWAITING ACTION SCH ×3 (09:02→23:55)
--- NOTE | 2018-12-17 09:42 | Pharmacy Report ---
Pharmacy Abx Initial Consult - Date of Service December 17, 2018 - Pharmacy Dosing Scope Date of Consult: 12/17 Consultation requested by: Dr. Broderick Pharmacy is consulted to initiate vancomycin IV/PO dosing therapy, order appropriate labs and adjust drug dose/frequency. - Subjective The patient is a 78 year old F admitted on 12/17/18 03:39. - Objective Height: 5 ft 1 in Weight: 96.8 kg Lab Results (24hrs): Laboratory Tests (24 Hours) 12/17/18 12/16/18 12/16/18 08:23 23:49 23:49 WBC 5.79 Neut # (Auto) 4.42 Creatinine 1.49 H 1.53 H Est Cr Clr Drug Dosing 33.1 32.6 Micro Results: 12/16/18 23:57 Aerobic Blood Culture - Pending Blood Anaerobic Blood Culture - Pending 12/16/18 23:49 Aerobic Blood Culture - Pending Blood Anaerobic Blood Culture - Pending - Risk Factors for Resistance * Antimicrobial use within the last 90 days - CLINDAMYCIN - Assessment & Plan Assessment 78 year old F admitted with cellulitis of face, possibly related to dental infection. CT of facial bones negative for abscess, but concern for cellulitis. Had root canal done w/in the previous week and was receiving clindamycin po starting on 12/15 Plan Vancomycin IV * Received vancomycin 2000 mg x 1 in the ER (~21 mg/kg loading dose) * Will start vancomycin 1000 mg iv q 24 hrs (~11 mg/kg) - a less than traditional dosing selected due to increased risk fo accumulation with vancomycin d/t elevated BMI >35 kg/m2 * Estimated kinetics: t1/2~21 hrs, ke~0.03hr-1, CrCl ~33 ml/min - appears baseline Scr 1.1-1.5 mg/dL * Will plan to obtain a trough prior to the 0200 dose on 12/20 to ensure therapeutic and to assess for accumulation with vancomycin Pharmacy will continue to follow and will adjust dose/frequency as necessary. Thank you.
[2018-12-17] MEDS ORDERED: CEFEPIME 1,000 MG in SYRINGE 0 ML IV SCH (10:00)
[2018-12-17] MEDS: LACTOBACILLUS ACIDOPHILUS (FLORANEX) TAB PO SCH ×2 (11:19→17:22)
--- NOTE | 2018-12-17 16:35 | Family Medicine Progress Note ---
Date of Service December 17, 2018 Assessment & Plan (1) Cellulitis of face: 78F here with preseptal cellulitis of face s/p left sided upper root canal and numerous novocaine injections in left upper incisor area. Preseptal Cellulitis -2/2 dental procedure -improved on vanc/cefepime (did not receive flagyl due to local hive reaction at IV site) - given likely praveena (anaerobic) and also extensive allergies - will switch to monotherapy 3rd gen cephalosporins - cefdinir daily (renally dosed) and observe overnight for ongoing clinical improvement -monitor for resolution of facial swelling Hyperglycemia / IDDM -s/p 10 mg decadron. -Continue ISS -seen by glycemic educator - recommend decr basaglar dose by 10% to help minimize reported hypoglycemia at home. Home dose is glargine 40U SQ. FEN/GI: T2DM. No fluids at this time. DVT ppx: ambulate CODE STATUS: FULL DISPO: med/surg Other ongoing medical issues: depression/anxiety - cont escitalopram polyneuropathy - gabapentin 600 TID HTN - metoprolol succ 50 HS Supervising Physician Co-Signing Physician Notes I personally examined the patient and verified all chiu points of history and exam, discussed case, and agree with decision making with Dr De Jesus. feeling better as far as face swelling, but weak and shaky - notes this happens when sugars are up. family present and seems to want to get her home but pt very anxious about going home alone and nearly begs to stay into tomorrow for the shakiness to go away. vitals noted nad other than anxious. pleasant. breathing unlabored. L upper lip laterally/side of face mildly swollen but appears better than previously described. no other abnormalities. there was a question raised in prior assessments of if this appears to be a facial droop but appears entirely as mild swelling not at all a drooping. dental infection - failed clinda, getting better on cefepime (vanco unlikely to have been helpful given that MRSA dental infection would be rare, flagyl would cover anaerobes as clinda did, but also she probably only received a small portion of a dose before local site reaction led to dose being stopped. this would imply that gram negatives would be more likely culprit than anaerobes since clinda does not cover gm (-) --> but since dental pseudomonas would be a rarity - will downgrade to third gen ceph. follow shaky - anxious vs sugars vs both. discussed that staying in the hospital is not a low-risk proposition, but that since she lives alone if she truly does not feel safe we would keep her until shakiness abates. discussed at least staying moving as much as possible, staying out of bed as much as possible to avoid deconditioning. otherwise as above Subjective Feeling improved this AM. Says swelling is much less, no more redness or pain. Does endorse feeling more shaky than usual, thinks it's from her blood sugars being high. Says she also felt shaky on the clindamycin too while her face was acutely swollen. Tolerating PO. Review of Systems Review of Systems: All systems reviewed & are unremarkable except as noted in HPI & below Physical Exam Physical Exam: Vitals noted and within normal limits GENERAL: Awake, alert to person, place, and time, nontoxic-appearing, in no distress. HENT: atraumatic. Mucus membranes appear moist. No tenderness to palpation along left buccal area and surrounding dentition - no draining. Mild swelling evident on left lower face with mild loss of nasolabial fold there. EYES: Normal conjunctiva. Sclera non-icteric. Chronic right sided strabismus. Left eye EOMI, tracks well, peripheral archibald in tact. NECK: Supple. Full range of motion. No JVD. RESPIRATORY: Normal work of breathing. CARDIAC: Extremities warm and well perfused, ABDOMEN: Soft, non-distended. LOWER EXTREMITIES: Inspection of calves reveal equal size bilaterally. No edema. No discoloration. NEURO: No gross focal motor deficits noted with the exception of slightly asymmetric smile and slightly decreased sensation on left face. Moves all four extremities equally, normal gait. Has chronic cervical radiculopathy and neuropathy in bilateral hands - at her baseline. Also has resting tremor bilateral hands, also at baseline. SKIN: Rash not present. No jaundice noted. PSYCH: Appropriate mood and affect. Cooperative. Exam as done by Rach De Jesus MD, [facility] [employer]. Results & Data Vital Signs (Past 12 Hours) Vital Signs Temp Pulse Resp BP Pulse Ox 12/17/18 15:00 36.3 C L 68 20 160/66 H 97 12/17/18 07:15 36.5 C 66 20 138/80 95 12/17/18 05:17 36.4 C L 69 16 144/80 H 95 Laboratory Results 12/17/18 12/17/18 12/17/18 Range/Units 16:39 16:38 11:52 WBC (4.8-10.8) K/uL RBC (4.2-5.4) M/uL Hgb (12.0-16.0) g/dL Hct (37-47) % MCV (80-100) fL MCH (25-34) pg MCHC (32-36) g/dL RDW Std Deviation (36.4-46.3) fL RDW Coeff of Tim (11.5-14.5) % Plt Count (130-400) K/uL MPV (7.4-10.4) fL Immature Gran % (Auto) % Neut % (Auto) % Lymph % (Auto) % Bibb % (Auto) % Eos % (Auto) % Baso % (Auto) % Immature Gran # (Auto) (0.00-0.02) K/uL Neut # (Auto) (1.4-6.5) K/uL Lymph # (Auto) (1.2-3.4) K/uL Bibb # (Auto) (0.11-0.59) K/uL Eos # (Auto) (0-0.5) K/uL Baso # (Auto) (0-0.2) K/uL Platelet Estimate (Normal) PT (9.0-12.0) Seconds INR (0.9-1.1) APTT (21.0-31.0) Seconds PTT Ratio Sodium (136-145) mmol/L Potassium (3.5-5.1) mmol/L Chloride (98-107) mmol/L Carbon Dioxide (21-32) mmol/L Anion Gap (3-11) BUN (7-18) mg/dl Creatinine (0.6-1.2) mg/dl Est Cr Clr Drug Dosing ml/min Est GFR ( Amer) Est GFR (Non-Af Amer) BUN/Creatinine Ratio (10-20) Glucose (70-99) mg/dl POC Glucose 318 H* 316 H* 287 H (70-99) Lactate (0.4-2.0) mmol/L Calcium (8.5-10.1) mg/dl Total Bilirubin (0.2-1) mg/dl Direct Bilirubin (0-0.2) mg/dl AST (15-37) U/L ALT (12-78) U/L Alkaline Phosphatase (45-117) U/L Total Protein (6.4-8.2) gm/dl Albumin (3.4-5.0) gm/dl Globulin (2.5-4.0) gm/dl Albumin/Globulin Ratio (0.9-2) 12/17/18 12/17/18 12/17/18 Range/Units 08:23 07:52 07:50 WBC (4.8-10.8) K/uL RBC (4.2-5.4) M/uL Hgb (12.0-16.0) g/dL Hct (37-47) % MCV (80-100) fL MCH (25-34) pg MCHC (32-36) g/dL RDW Std Deviation (36.4-46.3) fL RDW Coeff of Tim (11.5-14.5) % Plt Count (130-400) K/uL MPV (7.4-10.4) fL Immature Gran % (Auto) % Neut % (Auto) % Lymph % (Auto) % Bibb % (Auto) % Eos % (Auto) % Baso % (Auto) % Immature Gran # (Auto) (0.00-0.02) K/uL Neut # (Auto) (1.4-6.5) K/uL Lymph # (Auto) (1.2-3.4) K/uL Bibb # (Auto) (0.11-0.59) K/uL Eos # (Auto) (0-0.5) K/uL Baso # (Auto) (0-0.2) K/uL Platelet Estimate (Normal) PT (9.0-12.0) Seconds INR (0.9-1.1) APTT (21.0-31.0) Seconds PTT Ratio Sodium (136-145) mmol/L Potassium (3.5-5.1) mmol/L Chloride (98-107) mmol/L Carbon Dioxide (21-32) mmol/L Anion Gap (3-11) BUN (7-18) mg/dl Creatinine 1.49 H (0.6-1.2) mg/dl Est Cr Clr Drug Dosing 33.1 ml/min Est GFR ( Amer) 38.6 Est GFR (Non-Af Amer) 33.3 BUN/Creatinine Ratio (10-20) Glucose (70-99) mg/dl POC Glucose 311 H* 355 H* (70-99) Lactate (0.4-2.0) mmol/L Calcium (8.5-10.1) mg/dl Total Bilirubin (0.2-1) mg/dl Direct Bilirubin (0-0.2) mg/dl AST (15-37) U/L ALT (12-78) U/L Alkaline Phosphatase (45-117) U/L Total Protein (6.4-8.2) gm/dl Albumin (3.4-5.0) gm/dl Globulin (2.5-4.0) gm/dl Albumin/Globulin Ratio (0.9-2) 12/17/18 12/16/18 12/16/18 Range/Units 03:21 23:49 23:49 WBC (4.8-10.8) K/uL RBC (4.2-5.4) M/uL Hgb (12.0-16.0) g/dL Hct (37-47) % MCV (80-100) fL MCH (25-34) pg MCHC (32-36) g/dL RDW Std Deviation (36.4-46.3) fL RDW Coeff of Tim (11.5-14.5) % Plt Count (130-400) K/uL MPV (7.4-10.4) fL Immature Gran % (Auto) % Neut % (Auto) % Lymph % (Auto) % Bibb % (Auto) % Eos % (Auto) % Baso % (Auto) % Immature Gran # (Auto) (0.00-0.02) K/uL Neut # (Auto) (1.4-6.5) K/uL Lymph # (Auto) (1.2-3.4) K/uL Bibb # (Auto) (0.11-0.59) K/uL Eos # (Auto) (0-0.5) K/uL Baso # (Auto) (0-0.2) K/uL Platelet Estimate (Normal) PT (9.0-12.0) Seconds INR (0.9-1.1) APTT (21.0-31.0) Seconds PTT Ratio Sodium 137 (136-145) mmol/L Potassium 5.0 (3.5-5.1) mmol/L Chloride 102 (98-107) mmol/L Carbon Dioxide 28 (21-32) mmol/L Anion Gap 7.0 (3-11) BUN 24 H (7-18) mg/dl Creatinine 1.53 H (0.6-1.2) mg/dl Est Cr Clr Drug Dosing 32.6 ml/min Est GFR ( Amer) 37.4 Est GFR (Non-Af Amer) 32.2 BUN/Creatinine Ratio 15.6 (10-20) Glucose 191 H (70-99) mg/dl POC Glucose 203 H (70-99) Lactate 1.8 (0.4-2.0) mmol/L Calcium 8.8 (8.5-10.1) mg/dl Total Bilirubin 1.2 H (0.2-1) mg/dl Direct Bilirubin 0.2 (0-0.2) mg/dl AST 17 (15-37) U/L ALT 21 (12-78) U/L Alkaline Phosphatase 77 (45-117) U/L Total Protein 7.3 (6.4-8.2) gm/dl Albumin 3.1 L (3.4-5.0) gm/dl Globulin 4.2 H (2.5-4.0) gm/dl Albumin/Globulin Ratio 0.7 L (0.9-2) 12/16/18 12/16/18 Range/Units 23:49 23:49 WBC 5.79 (4.8-10.8) K/uL RBC 5.15 (4.2-5.4) M/uL Hgb 12.7 (12.0-16.0) g/dL Hct 39.8 (37-47) % MCV 77.3 L (80-100) fL MCH 24.7 L (25-34) pg MCHC 31.9 L (32-36) g/dL RDW Std Deviation 39.5 (36.4-46.3) fL RDW Coeff of Tim 14.0 (11.5-14.5) % Plt Count 99 L (130-400) K/uL MPV 9.1 (7.4-10.4) fL Immature Gran % (Auto) 0.5 % Neut % (Auto) 76.4 % Lymph % (Auto) 13.8 % Bibb % (Auto) 8.1 % Eos % (Auto) 0.9 % Baso % (Auto) 0.3 % Immature Gran # (Auto) 0.03 H (0.00-0.02) K/uL Neut # (Auto) 4.42 (1.4-6.5) K/uL Lymph # (Auto) 0.80 L (1.2-3.4) K/uL Bibb # (Auto) 0.47 (0.11-0.59) K/uL Eos # (Auto) 0.05 (0-0.5) K/uL Baso # (Auto) 0.02 (0-0.2) K/uL Platelet Estimate Decreased L (Normal) PT 11.8 (9.0-12.0) Seconds INR 1.2 H (0.9-1.1) APTT 24.2 (21.0-31.0) Seconds PTT Ratio 0.9 Sodium (136-145) mmol/L Potassium (3.5-5.1) mmol/L Chloride (98-107) mmol/L Carbon Dioxide (21-32) mmol/L Anion Gap (3-11) BUN (7-18) mg/dl Creatinine (0.6-1.2) mg/dl Est Cr Clr Drug Dosing ml/min Est GFR ( Amer) Est GFR (Non-Af Amer) BUN/Creatinine Ratio (10-20) Glucose (70-99) mg/dl POC Glucose (70-99) Lactate (0.4-2.0) mmol/L Calcium (8.5-10.1) mg/dl Total Bilirubin (0.2-1) mg/dl Direct Bilirubin (0-0.2) mg/dl AST (15-37) U/L ALT (12-78) U/L Alkaline Phosphatase (45-117) U/L Total Protein (6.4-8.2) gm/dl Albumin (3.4-5.0) gm/dl Globulin (2.5-4.0) gm/dl Albumin/Globulin Ratio (0.9-2) Medications Administered Current Inpatient Medications Al Hydrox/Mg Hydrox/Simethicone (Maalox) 30 ml PO Q6H PRN PRN Reason: Dyspepsia Stop: 01/16/19 05:15 Artificial Tears (Artificial Tears) 1 drops OP BID PRN PRN Reason: Dryness Aspirin (Ecotrin Ectab) 81 mg PO BID [facility] Stop: 01/16/19 08:59 Last Admin: 12/17/18 08:51 Dose: 81 mg Documented by: Cefdinir (Omnicef Cap) 300 mg PO HS SHARMILA; Protocol Stop: 12/27/18 20:59 Dextrose (Dextrose 50%) 25 - 50 ml IV UD PRN; Protocol PRN Reason: Hypoglycemia Protocol Stop: 01/16/19 05:15 Escitalopram Oxalate (Lexapro Tab) 20 mg PO QPM [facility] Stop: 01/16/19 20:59 Fluticasone Propionate (Flonase) 2 sprays RAJAT BID [facility] Stop: 01/16/19 08:59 Last Admin: 12/17/18 08:50 Dose: 2 sprays Documented by: Gabapentin (Neurontin) 600 mg PO TID [facility] Stop: 01/16/19 08:59 Last Admin: 12/17/18 14:20 Dose: 600 mg Documented by: Glucagon (Glucagen) 1 mg SQ UD PRN; Protocol PRN Reason: Hypoglycemia Protocol Stop: 01/16/19 05:15 Glucose (Glucose 40%) 15 - 30 gm PO UD PRN; Protocol PRN Reason: Hypoglycemia Protocol Stop: 01/16/19 05:15 Glucose (Dex4 Glucose) 4 - 8 tabs PO UD PRN; Protocol PRN Reason: Hypoglycemia Protocol Stop: 01/16/19 05:15 Insulin Aspart (Novolog Flexpen) 0 units SC ACHS [facility] Stop: 01/16/19 07:29 Last Admin: 12/17/18 17:25 Dose: 12 units Documented by: Insulin Glargine (Lantus Solostar Pen) 40 units SQ HS [facility] Stop: 01/16/19 20:59 Ioversol (Optiray 320 100ml) 100 ml IV ONCE PRN PRN Reason: Interaction Checking Stop: 12/21/18 00:56 Last Admin: 12/17/18 00:58 Dose: 92 ml Documented by: Lactobacillus Acidophilus (Floranex) 4 tab PO TIDM [facility] Stop: 01/16/19 11:59 Last Admin: 12/17/18 17:22 Dose: 4 tab Documented by: Magnesium Hydroxide (Milk Of Magnesia) 30 ml PO Q6H PRN PRN Reason: Constipation Stop: 01/16/19 05:15 Metoprolol Succinate (Toprol Xl) 50 mg PO HS [facility] Stop: 01/16/19 20:59 Miscellaneous (Order Awaiting Action) 1 ea N/A QS SHARMILA Stop: 01/16/19 07:59 Last Admin: 12/17/18 16:50 Dose: Not Given Documented by: Miscellaneous (Carbohydrates For Hypoglycemia) 15 - 30 gm PO UD PRN PRN Reason: Hypoglycemia Treatment Stop: 01/16/19 05:15 Multivitamins/Minerals (Multivitamin W/ Minerals Tab) 1 tab PO BID [facility] Stop: 01/16/19 08:59 Last Admin: 12/17/18 08:51 Dose: 1 tab Documented by: Nitroglycerin (Nitrostat) 0.4 mg SL Q5M PRN PRN Reason: chest pain Stop: 01/16/19 05:15 Ondansetron HCl (Zofran) 4 mg IV Q6H PRN PRN Reason: Nausea Stop: 01/16/19 05:15 Sodium Chloride ([place] Nasal) 1 sprays RAJAT Q3H PRN PRN Reason: dry nasal passages Stop: 01/16/19 05:15 Vitamin D (Vitamin D3) 5,000 units PO DAILY [facility] Stop: 01/16/19 08:59 Last Admin: 12/17/18 08:51 Dose: 5,000 units Documented by: PG Care Time/CCT Total # of Minutes Spent Total Time Spent with Patient: Total time spent is greater than 50% in coordination of care (as documented) at patient's floor/unit and/or counseling patient: Resident Activity Tracking Resident Involvement: Resident Care Provided Care Provided: Adult Hospital Medicine
[2018-12-17] MEDS ORDERED: MELATONIN PYRIDOXINE HCL PO SCH (21:00)
[2018-12-17] MEDS ORDERED: METOPROLOL SUCC 50MG EXT REL TAB PO SCH (21:00)
[2018-12-17] MEDS ORDERED: INSULIN GLARGINE SOLOSTAR 100 UNITS/ML 3 ML PEN SQ SCH (21:00)
[2018-12-17] MEDS ORDERED: CEFDINIR 300 MG CAP PO SCH (21:00)
[2018-12-17] MEDS ORDERED: ESCITALOPRAM OXALATE 20 MG TAB PO SCH (21:00)
[2018-12-17] MEDS ORDERED: CETIRIZINE HCL 10 MG TABLET PO ONE (23:31)
[2018-12-18] MEDS ORDERED: CEFEPIME 2,000 MG in SYRINGE 7.5 ML IV SCH
[2018-12-18] MEDS ORDERED: VANCOMYCIN HCL 1,000 MG in SODIUM CHLORIDE 0.9% 250 ML IV SCH (02:00)
[2018-12-18] MEDS: HYDROCORTISONE 2.5% CR 30 GM TUBE EXT PRN ×2 (05:01→16:11)
[2018-12-18 06:43] LABS: Creatinine Clr Calc Pharmacy 36.3 ml/min; Est GFR (African American) 43.1; Est GFR (Non-African American) 37.2
[2018-12-18 06:46] LABS: Estimated Average Glucose 163 mg/dl; Hemoglobin A1C 7.3 % (4.5-5.6)
[2018-12-18] MEDS ORDERED: Nursing to Pharmacy Communication ONE (07:10)
[2018-12-18] MEDS: AZELASTINE~ORDER AWAITING ACTION SCH ×2 (09:14→15:11)
[2018-12-18] MEDS: ASPIRIN 81 MG ECTAB PO SCH (09:15)
[2018-12-18] MEDS: LACTOBACILLUS ACIDOPHILUS (FLORANEX) TAB PO SCH ×3 (09:15→16:14)
[2018-12-18] MEDS: CHOLECALCIFEROL 1,000 UNITS TAB PO SCH (09:15)
[2018-12-18] MEDS: FLUTICASONE PROPIONATE NA SPR 16 GM BTL NAE SCH (09:16)
[2018-12-18] MEDS: CEROVITE ADV FORMULA TAB PO SCH (09:16)
[2018-12-18] MEDS: INSULIN ASPART 100 UNITS/ML 3 ML PEN SC SCH ×3 (09:19→17:37)
[2018-12-18] MEDS: GABAPENTIN 600 MG TAB PO SCH ×2 (11:03→16:11)
[2018-12-18] MEDS ORDERED: CEFDINIR 300 MG CAP PO STA (15:23)
--- NOTE | 2018-12-18 18:20 | Discharge Summary ---
Date of Service December 18, 2018 Admission HPI Per Admitting Provider The patient is a 78-year-old female with a past medical history including diabetes mellitus, chronic kidney disease, IDDM, uterine cancer, peripheral neuropathy and hypertension, who presents to the emergency department with persistently worsening swelling or redness of the left side of her face status post root canal surgery 3 days previously. She did receive Novocain injections prior to the surgery. She was started on an outpatient antibiotic on Sunday. She in general otherwise feels about the same she is with chronic neck pain for which she is undergoing surgery soon, but she has no new generalized myalgias and arthralgias. Principal Diagnosis facial cellulitis Discharge Exam Vitals noted and within normal limits GENERAL: Awake, alert to person, place, and time, nontoxic-appearing, in no distress. HENT: atraumatic. Mucus membranes appear moist. No tenderness to palpation along left cheek - no draining. Mild swelling evident on left lower face with mild loss of nasolabial fold there - improving on day of discharge. EYES: Normal conjunctiva. Sclera non-icteric. Chronic right sided strabismus. L eft eye EOMI, tracks well, peripheral archibald in tact. NECK: Supple. Full range of motion. No JVD. RESPIRATORY: Normal work of breathing. CARDIAC: Extremities warm and well perfused, ABDOMEN: Soft, non-distended. LOWER EXTREMITIES: Inspection of calves reveal equal size bilaterally. No edema. No discoloration. NEURO: No gross focal motor deficits noted . Moves all four extremities equally, normal gait. Has chronic cervical radiculopathy and neuropathy in bilateral hands - at her baseline. Also has resting tremor bilateral hands, also at baseline. SKIN: Rash not present. No jaundice noted. PSYCH: Appropriate mood and affect. Cooperative. Exam as done by Rach De Jesus MD, Wellness Assistant. Discharge Data Allergies Allergy/AdvReac Type Severity Reaction Status Date / Time Bactrim Allergy Severe THROAT Verified 05/14/15 15:22 CLOSED meperidine Allergy Severe almost Unverified 12/16/18 23:26 "closed throat" midodrine Allergy Severe "almost Unverified 12/16/18 23:26 closed throat" Penicillins Allergy Severe ANAPHYLAXIS Unverified 12/16/18 23:26 Quinolones Allergy Severe TOLERATED Verified 12/16/18 23:26 LEVAQUIN IV - SEP 06 sulfamethoxazole Allergy Severe THROAT Verified 12/16/18 23:26 CLOSED trimethoprim Allergy Severe THROAT Verified 12/16/18 23:26 CLOSED diphenoxylate Allergy Intermediate Unknown Verified 12/16/18 23:26 glyburide Allergy Intermediate SEVERE Verified 12/16/18 23:26 ABDOMINAL PAIN metformin Allergy Intermediate SEVERE Verified 12/16/18 23:26 ABDOMINAL PAIN metronidazole [From Flagyl] Allergy Intermediate Hives Verified 12/17/18 08:24 nitrofurantoin Allergy Intermediate Unknown Verified 12/16/18 23:26 oxycodone Allergy Intermediate SEVERE Verified 12/11/18 13:04 WITHDRAWAL SYMPTOMS WHEN TRYING TO STOP TAKING ranitidine Allergy Intermediate Unknown Verified 12/16/18 23:26 repaglinide Allergy Intermediate Unknown Verified 12/16/18 23:26 rosiglitazone Allergy Intermediate Unknown Verified 12/16/18 23:26 DENILSON Inhibitors Allergy Unknown unknown to Unverified 12/11/18 13:04 pt atropine Allergy Unknown Unknown Verified 12/16/18 23:26 Histamine H2 Inhibitors Allergy Unknown unknown to Unverified 12/11/18 13:04 pt Iodinated Contrast Media Allergy Unknown JULY 2017 Verified 12/11/18 13:04 [facility] -- TOLERATED WITH SLOW INFUSION PER PATIENT phenazopyridine Allergy Unknown Unknown Verified 12/16/18 23:26 carvedilol Allergy Unknown Verified 12/11/18 13:04 carbamazepine AdvReac Severe Unknown Verified 12/16/18 23:26 valproic acid AdvReac Severe Unknown Verified 12/16/18 23:26 albuterol AdvReac Intermediate UNK Verified 12/11/18 13:04 olanzapine AdvReac Intermediate Unknown Verified 12/16/18 23:26 paroxetine AdvReac Intermediate DID NOT Verified 12/11/18 13:04 HELP rofecoxib AdvReac Intermediate Unknown Verified 12/16/18 23:26 temazepam AdvReac Intermediate DID NOT Verified 12/11/18 13:04 HELP diazepam AdvReac Mild SEDATION Verified 12/11/18 13:04 LASTING TOO LONG ibuprofen AdvReac Mild Unknown Verified 12/16/18 23:26 lisinopril AdvReac Mild UNK Verified 12/11/18 13:04 mirtazapine AdvReac Mild Unknown Verified 12/16/18 23:26 Consultations 12/17/18 01:41 ED Decision to Admit Stat Ordered Studies 12/16/18 23:01 CT facial bones w con Urgent CT head/brain wo con Urgent Hospital Course (1) Cellulitis of face: 78F here with preseptal cellulitis of face s/p left sided upper root canal and numerous novocaine injections in left upper incisor area. Preseptal Cellulitis -2/2 dental procedure -improved on vanc/cefepime (did not receive flagyl due to local hive reaction at IV site) - given likely praveena (anaerobic) and also extensive allergies - regimen downgraded to 3rd gen cephalosporins - cefdinir daily (renally dosed) and observed. Clinically improved despite initial concern for allergic reaction that did not progress to oropharyngeal symptoms or rash. Recommend: finish total of 7 day course of daily cefdinir. Follow up with PCP. Other ongoing medical issues: depression/anxiety - cont escitalopram polyneuropathy - gabapentin 600 TID HTN - metoprolol succ 50 HS T2Dm - cont home insulin regimen. Total Time Total Time Spent Total Time Spent (In Minutes): >30 Discharge Plan Discharge Items Patient Disposition: Home - Self-Care Reason For Visit: FACIAL CELLULITIS Discharge Diagnosis: facial cellulitis Activity: Per Instructions section Bathing: No limitations Non-emergency contact: Primary Care Provider Call non-emergency contact if: you have any medication questions and your temperature is above 101.5 Follow-up/Referrals: Darwin Lugo III, CRNP [Primary Care Provider] - 12/24/18 9:15 am (Please, follow up with Darwin BLANTON on Sunday at 9:15 am. *If you need to change this appointment, call the office at [phone].) Diet: Carb Consistent or DM2 Addtl Attending Provider Instructions: you were admitted due to concern for facial swelling that was due to a cellulitis infection of your skin, possibly related to your recent dental issues. We tried different medications to help treat this and you have been able to tolerate cefdinir well -- please continue this medication for 5 more days. Take with food and a full glass of water. Please keep your follow up with your primary care provider. Be well A Neal MILLS Pending Studies at Discharge: No Stand-Alone Forms: My [facility] Medications and DC Order Prescriptions: New cefdinir 300 mg Capsule 300 mg PO HS 5 Days Qty: 5 RF: 0 Continued escitalopram oxalate 20 mg tablet 20 mg PO QPM Qty: 30 RF: 5 gabapentin 600 mg tablet 600 mg PO TID 90 Days Qty: 270 RF: 1 cholecalciferol (vitamin D3) 5,000 unit capsule 5,000 units PO DAILY Qty: 30 RF: 12 Novolog Flexpen U-100 Insulin 100 unit/mL (3 mL) insulin pen See Rx Instructions SQ BID 90 Days Qty: 15 RF: 4 nitroglycerin 0.4 mg tablet, sublingual 0.4 mg SL Q5M PRN (Reason: chest pain) 90 Days Qty: 30 RF: 3 aspirin [Adult Aspirin Regimen] 81 mg tablet,delayed release (DR/EC) 81 mg PO BID RF: 0 sodium chloride [Saline Nasal] 0.65 % aerosol,spray 1 sprays INTNAS Q3H PRN (Reason: dry nasal passages) 90 Days Qty: 30 RF: 1 azelastine 137 mcg (0.1 %) aerosol,spray 2 sprays INTNAS BID Qty: 30 RF: 0 epinephrine 0.3 mg/0.3 mL auto-injector 0.3 ml IM UD PRN (Reason: anaphylaxis) RF: 0 melatonin-pyridoxine HCl (B6) 1-10 mg tablet 1 tab PO HS RF: 0 Systane Balance 0.6 % drops 1 drops OP BID PRN (Reason: Dry Eyes) RF: 0 metoprolol succinate 50 mg tablet extended release 24 hr 50 mg PO HS RF: 0 fluticasone propionate 50 mcg/actuation spray,suspension 2 sprays INTNAS BID RF: 0 Basaglar KwikPen U-100 Insulin 100 unit/mL (3 mL) insulin pen 60 - 64 units SQ HS RF: 0 PreserVision AREDS 7,160-113-100 [id number] Tablet 1 tab PO BID RF: 0 One-A-Day Women's 50 Plus 400-20 mcg Tablet 1 tab PO QAM RF: 0 Discontinued clindamycin HCl 300 mg Capsule 300 mg PO QID RF: 0 Discharge Orders: Discharge Order (Routine); Ordered 12/18/18 Ordered By: Rach De Jesus Admission Data Admit Date/Time: 12/17/18 03:39 Attending Provider: Augustin Aguilar Admit Provider: Rigo Broderick Primary Care Provider: Griel,Darwin C. III Other Providers: Pato Gottlieb ; Rigo Broderick Other Interventions: Discharge Summary Assessment (RN) Last Done: 12/18/18 18:47 Supervising Physician Co-Signing Physician Notes I personally examined the patient and verified all chiu points of history and exam, discussed case, and agree with decision making with Dr De Jesus. [facility] - first time she noted that she was having an allergic reaction. then noted that she had a terrible night because she was up and itchy all night and it felt like her throat was going to close, and went over the nighttime physician saw her in order was placed for the EpiPen to be at the bedside but then it took half an hour for the EpiPen to get there, and she was worried that her throat might close off. In the end her breathing was fine she never needed the EpiPen. Later whenever I visit her after repeated dose of Cedinir, she notes that she is itchy and her nose is runny. vitals noted nad other than anxious. pleasant. breathing unlabored no stridor. No "hot potato voice" no respiratory distress whatsoever. Skin shows no rashes, she is a little bit dry but no hives, no morbilliform rash, no lesions whatsoever. Facial swelling is almost resolved. dental infection - failed clinda, getting better on cefepime (vanco unlikely to have been helpful given that MRSA dental infection would be rare, flagyl would cover anaerobes as clinda did, but also she probably only received a small portion of a dose before local site reaction led to dose being stopped. this would imply that gram negatives would be more likely culprit than anaerobes since clinda does not cover gm (-) --> but since dental pseudomonas would be a rarity -changed to third generation cephalosporin (Omnicef) and infection appears to be improving. See below in regards to non-allergy Itching/throat scratchinessshdion shows absolutely no signs or symptoms of an actual allergic reaction. She has no respiratory distress/stridor/voice changes, she has no hives. In fact, her findings appear much more consistent with skin irritation from the sheets, and upper respiratory dryness from the forced ventilation in the hospital rooms. Had an extensive discussion with the patient in regards to how this did not appear to be an allergic reaction, try to walk her through how an anaphylactic type reaction would not, "just a little bit" as regards to what her throat felt like last night, and reminded her of what the situation was like when she truly did have an anaphylactic reaction requiring her EpiPen. After all of this, we agreed to give a trial dose of Cefdinir and follow-up closely. In follow-up she still showed no signs or symptoms of an actual allergic drug reaction, skin, respiratory, or otherwise, and she noted that she was appreciative, because my asking her to remember what her anaphylactic reaction felt like gave her the reassurance to remember that actually what she is feeling had absolutely no similarities to what she felt then. With this she felt much more comfortable and confident with going home. otherwise as above, stable for home. Resident Activity Tracking Resident Involvement: Resident Care Provided Care Provided: Adult Hospital Medicine
[2018-12-20] MEDS ORDERED: VANCOMYCIN TROUGH ONE (01:30)
== END 2018-12-18 20:00 | disposition home health service (06) ==
LOC: 4W 22:05 → ED 22:05 → SUATTDRO 12-17 03:39 → 4W 12-17 04:29
DX: Z90.710 Acquired absence of both cervix and uterus; M19.90 Unspecified osteoarthritis, unspecified site; E11.22 Type 2 diabetes mellitus with diabetic chronic kidney disease; I12.0 Hypertensive chronic kidney disease with stage 5 chronic kidney disease or end stage renal disease; F32.9 Major depressive disorder, single episode, unspecified; G47.30 Sleep apnea, unspecified; I10 Essential (primary) hypertension; F41.9 Anxiety disorder, unspecified; Z88.0 Allergy status to penicillin; Z85.42 Personal history of malignant neoplasm of other parts of uterus; L03.211 Cellulitis of face; Z79.4 Long term (current) use of insulin; Z85.3 Personal history of malignant neoplasm of breast; Z79.899 Other long term (current) drug therapy; Z88.8 Allergy status to other drugs, medicaments and biological substances

== ENCOUNTER 2019-02-05 13:08 | Inpatient (IN) ==
[2019-02-05] MEDS ORDERED: DiphenhydrAMINE HCL 50 MG/ML VIAL ONE (13:33)
[2019-02-05 13:40] LABS: Basophils # (auto) 0.02 K/uL (0-0.2); Basophils % (auto) 0.4 %; Eosinophils # (auto) 0.07 K/uL (0-0.5); Eosinophils % (auto) 1.4 %; Hematocrit (blood only) 40.5 % (37-47); Hemoglobin 12.9 g/dL (12.0-16.0); Immature Granulocytes # (auto) 0.01 K/uL (0.00-0.02); Immature Granulocytes % (auto) 0.2 %; Lymphocytes # (auto) 1.16 K/uL (1.2-3.4); Lymphocytes % (auto) 22.8 %; Mean Corpuscular Hemoglobin 25.2 pg (25-34); Mean Corpuscular Hgb Conc 31.9 g/dL (32-36); Mean Corpuscular Volume 79.1 fL (80-100); Mean Platelet Volume 9.3 fL (7.4-10.4); Monocytes # (auto) 0.29 K/uL (0.11-0.59); Monocytes % (auto) 5.7 %; Neutrophils # (auto) 3.54 K/uL (1.4-6.5); Neutrophils % (auto) 69.5 %; Platelet Count 106 K/uL (130-400); RDW Standard Deviation 39.7 fL (36.4-46.3); Red Blood Count 5.12 M/uL (4.2-5.4); White Blood Count 5.09 K/uL (4.8-10.8)
[2019-02-05 13:44] LABS: iSTAT Hemoglobin 14.6 g/dl (12.0-16.0); iSTAT Ionized Calcium 1.14 mmol/l (1.12-1.32); iSTAT Potassium 4.5 mEq/L (3.3-5.0)
--- NOTE | 2019-02-05 13:44 | CT Scan Report ---
CT head/brain wo con CLINICAL HISTORY: 78 years-old Female presenting with Stroke evaluation. TECHNIQUE: Multidetector CT imaging of the head was performed without the use of intravenous contrast . IV contrast: None. One or more dose lowering techniques were used consistent with the principles of ALARA (as low as reasonably achievable), including automatic exposure control, mA or kV adjustment t o individual patient size, and/or use of iterative reconstruction. COMPARISON: 12/17/2018. CT DOSE (mGy.cm): The estimated cumulative dose is 537.48. FINDINGS: [employer] topogram: Unremarkable. Ventricles and sulci normal in size. No hemorrhage. Periventricular and subcortical white matter hypo attenuation, nonspecific but likely indicative of chronic small vessel ischemic change. No acute terr itorial infarct. No mass effect or midline shift. No extra-axial fluid collection. Paranasal sinuses and mastoid air cells clear. Calvarium intact. Calcified extra-axial mass measuring 14 mm in the ante rior right temporal region unchanged from prior. IMPRESSION: 1. Chronic small vessel ischemic change. No acute intracranial abnormality. 2. Unchanged right temporal meningioma. Electronically signed by: Chi Blackwell M.D. 02/05/2019 1:42 PM
--- NOTE | 2019-02-05 13:49 | XRay Report ---
XR chest 1V portable CLINICAL HISTORY: Pt c/o facial droop mental status change COMPARISON STUDY: 12/16/2018 FINDINGS: The bones soft tissues and hemidiaphragms are normal. The cardiomediastinal silhouette is n ormal. The lungs are clear. The pulmonary vasculature is normal. IMPRESSION: Negative chest. The above report was generated using voice recognition software. It may contain grammatical, syntax or spelling errors. Electronically signed by: Keith Brady M.D. 02/05/2019 1:47 PM
[2019-02-05 13:55] LABS: INR 1.2 (0.9-1.1); Partial Thromboplastin Ratio 0.8; Partial Thromboplastin Time 22.8 Seconds (21.0-31.0); Prothrombin Time 11.9 Seconds (9.0-12.0)
[2019-02-05 14:03] LABS: Alanine Aminotransferase 31 U/L (12-78); Albumin Level 3.4 gm/dl (3.4-5.0); Aspartate Aminotransferase 24 U/L (15-37); Blood Urea Nitrogen 24 mg/dl (7-18); Calcium 9.3 mg/dl (8.5-10.1); Carbon Dioxide 29 mmol/L (21-32); Chloride 103 mmol/L (98-107); Creatinine Clr Calc Pharmacy 38.1 ml/min; Est GFR (African American) 46.4; Glucose 216 mg/dl (70-99); Magnesium 1.9 mg/dl (1.8-2.4); Potassium 4.3 mmol/L (3.5-5.1); Sodium 138 mmol/L (136-145)
[2019-02-05 14:10] LABS: Albumin Globulin Ratio 0.8 (0.9-2); Alkaline Phosphatase 72 U/L (45-117); Bilirubin,Total 0.8 mg/dl (0.2-1); Creatine Kinase MB 2.3 ng/ml (0.5-3.6); Globulin 4.3 gm/dl (2.5-4.0); Total Protein 7.7 gm/dl (6.4-8.2); Troponin I 0.107 ng/ml (0-0.045)
[2019-02-05] MEDS ORDERED: SODIUM CHLORIDE 0.9% 500 ML IV ONE (14:17)
[2019-02-05] MEDS ORDERED: cefTRIAXone SODIUM 2,000 MG/70 ML BAG IV STA (14:35)
[2019-02-05 14:42] LABS: Appearance Urine Clear (Clear); Bilirubin Urine Negative (Negative); Blood Urine Negative (Negative); Color Urine Dark Yellow; Glucose Urine UA Negative (Negative); Ketones Urine Trace (Negative); Leukocyte Esterase Urine Negative (Negative); Nitrite Urine Negative (Negative); Protein Urine Negative (Negative); Specific Gravity Urine 1.025 (1.000-1.030); Urobilinogen Urine Negative (Negative)
[2019-02-05] MEDS ORDERED: INFLUENZA VACCINE HIGH DOSE 65+ 0.5 ML SYR IM ONE (16:00)
--- NOTE | 2019-02-05 16:06 | History & Physical Report ---
Date of Service February 05, 2019 Assessment & Plan (1) Stroke-like symptoms: 78-year-old female with history of diabetes, hypertension, CKD presenting with strokelike symptoms. She has very mild rightward tongue deviation as well as diminished sensation to light touch on the left upper and lower extremity and diminished strength in the right upper extremity, mild dysarthria per son. Concern for TIA/right-sided CVA. Patient presently afebrile, hemodynamically stable. TPA not initiated secondary to duration of symptoms -Admit to PCU, continuous cardiac monitoring to assess for arrhythmia -Neurochecks per protocol, NIHSS daily -Dysphagia screening -Will check lipids and hemoglobin A1c with a.m. labs -Check MRI brain with and without contrast -Check MRA head and neck. Patient with allergy to contrast dye. -Check 2D echocardiogram -Hold antihypertensive medications to allow for permissive hypertension. -Will initiate Plavix 75 mg p.o. daily. Patient has been on aspirin 162 mg p.o. daily -Will initiate pravastatin 40 mg p.o. nightly -Neurology consult per protocol appreciated PT/OT evaluation appreciated -Speech therapy evaluation appreciated Present on Admission?: Yes (2) IDDM (insulin dependent diabetes mellitus): Patient with type 2 diabetes, insulin dependence, with peripheral neuropathy. Last hemoglobin A1c on 01/08/2019 = 7.6. Blood sugar presently elevated to 16. Patient administered 60 to 64 units of Basaglar/insulin glargine nightly. She reports fairly frequent episodes of low blood sugar that occurred during the night. Is unable to provide further details as to how frequently and how low. -We will administer Lantus 25 units twice daily -Insulin sliding scale -We will monitor blood sugars every 4 hours while inpatient and hopefully gain a better understanding of patient's blood sugar patterns. -Carb consistent diet as tolerated after dysphasia screen passed Present on Admission?: Yes (3) Hypertension: Blood pressure mildly elevated at present, 149/67. We will hold metoprolol for now to allow for permissive hypertension -Continue to monitor blood pressure Present on Admission?: Yes (4) CKD (chronic kidney disease): BUN and creatinine near baseline. Electrolytes favorable -Continue to monitor BUN, creatinine, electrolytes and urine output -Avoid nephrotoxic agents Present on Admission?: Yes (5) Neuropathy: Chronic. Stable. Continue gabapentin 600 mg p.o. 3 times daily Present on Admission?: Yes (6) Elevated troponin level: Patient with chronic elevation of troponin. Typically 0.05. Troponin today 0.107. She denies chest pain. EKG with no acute ischemic changes and no significant change from prior studies. Telemetry monitoring Echo ordered as part of stroke work-up Repeat troponin every 8 hours x2 to document trend F/E/NLR at 100 mL/h x 2 bags, electrolytes within normal limits, will check phosphorus level x1, consistent carb/heart healthy diet as tolerated after dysphasia screen is passed. Will hold vitamins and nutraceuticals for now ProphylaxisSCDs Codefull. Only 2 attempts per patient request and only if outcome is deemed to be favorable. Dispositionadmit to PCU History of Present Illness Chief Complaint: Strokelike symptoms Primary Care Provider: Darwin Lugo III, CRNP Elyssa Charlton is a 78-year-old female with history of diabetes, hypertension, CKD presenting with strokelike symptoms. She reports that this morning at 12:00 she woke up on her recliner and she had a sharp stabbing pain on the left side of her head. She also felt diffusely weak. She thought that it may be secondary to low blood sugar. When she checked her sugar it was 105. She proceeded to have some orange juice and crackers and tried to go back to sleep. States that she had a difficult time falling asleep and slept poorly. She woke up at 09 30 today and had a difficult time getting out of bed. She states that her entire body felt "strange". She had poor balance and difficulty with ambulation due to both of her legs feeling "wobbly" and generalized weakness. Feels that she was leaning to the left. She lost her balance and fell. Denies head trauma or loss of consciousness. Denies chest pain/dizziness/incontinence. She had a difficult time getting off the floor due to generalized weakness. Patient afebrile, hypertensive in the ER to 167/94, otherwise stable. Presently she is complaining of double vision as well as feeling slightly confused, not as sharp as usual and the feeling of the left side of her tongue not working. Her son is at bedside and reports that her speech is slower than normal and slightly garbled and she is having some difficulty with word finding at times. No additional complaints at this time. Specifically no chest pains. She has frequent palpitations, known PACs and PVCs and follows with Dr. Zapata for this. She reports that she felt a lot of palpitations last evening prior to going to bed. Otherwise denies shortness of breath, cough, wheeze, abdominal pain, nausea, vomiting, diarrhea, constipation. No fevers or chills. No dysuria. ER course: Ceftriaxone 2 g, Plavix 75 mg, flu vaccine, normal saline x500 mL Allergies Allergy/AdvReac Type Severity Reaction Status Date / Time Bactrim Allergy Severe THROAT Verified 05/14/15 15:22 CLOSED meperidine Allergy Severe almost Unverified 02/05/19 14:59 "closed throat" midodrine Allergy Severe "almost Unverified 02/05/19 14:59 closed throat" Penicillins Allergy Severe ANAPHYLAXIS Unverified 02/05/19 14:59 Quinolones Allergy Severe TOLERATED Verified 02/05/19 14:59 LEVAQUIN IV - SEP 06 sulfamethoxazole Allergy Severe THROAT Verified 02/05/19 14:59 CLOSED trimethoprim Allergy Severe THROAT Verified 02/05/19 14:59 CLOSED diphenoxylate Allergy Intermediate Unknown Verified 02/05/19 14:59 glyburide Allergy Intermediate SEVERE Verified 02/05/19 14:59 ABDOMINAL PAIN metformin Allergy Intermediate SEVERE Verified 02/05/19 14:59 ABDOMINAL PAIN metronidazole [From Flagyl] Allergy Intermediate Hives Verified 02/05/19 14:59 nitrofurantoin Allergy Intermediate Unknown Verified 02/05/19 14:59 oxycodone Allergy Intermediate SEVERE Verified 02/05/19 14:59 WITHDRAWAL SYMPTOMS WHEN TRYING TO STOP TAKING ranitidine Allergy Intermediate Unknown Verified 02/05/19 14:59 repaglinide Allergy Intermediate Unknown Verified 02/05/19 14:59 rosiglitazone Allergy Intermediate Unknown Verified 02/05/19 14:59 DENILSON Inhibitors Allergy Unknown unknown to Unverified 02/05/19 14:59 pt atropine Allergy Unknown Unknown Verified 02/05/19 14:59 Histamine H2 Inhibitors Allergy Unknown unknown to Unverified 02/05/19 14:59 pt Iodinated Contrast Media Allergy Unknown JULY 2017 Verified 02/05/19 14:59 [facility] -- TOLERATED WITH SLOW INFUSION PER PATIENT phenazopyridine Allergy Unknown Unknown Verified 02/05/19 14:59 carvedilol Allergy Unknown Verified 02/05/19 14:59 carbamazepine AdvReac Severe Unknown Verified 02/05/19 14:59 valproic acid AdvReac Severe Unknown Verified 02/05/19 14:59 albuterol AdvReac Intermediate UNK Verified 02/05/19 14:59 olanzapine AdvReac Intermediate Unknown Verified 02/05/19 14:59 paroxetine AdvReac Intermediate DID NOT Verified 02/05/19 14:59 HELP rofecoxib AdvReac Intermediate Unknown Verified 02/05/19 14:59 temazepam AdvReac Intermediate DID NOT Verified 02/05/19 14:59 HELP diazepam AdvReac Mild SEDATION Verified 02/05/19 14:59 LASTING TOO LONG ibuprofen AdvReac Mild Unknown Verified 02/05/19 14:59 lisinopril AdvReac Mild UNK Verified 02/05/19 14:59 mirtazapine AdvReac Mild Unknown Verified 02/05/19 14:59 Home Medications Home Medications Medication Instructions Recorded Confirmed Type aspirin 81 mg tablet,delayed 162 mg PO QPM 09/19/18 02/05/19 History release insulin aspart (U-100) 100 unit/mL See Rx Instructions SQ BID 90 Days 09/19/18 02/05/19 Rx (3 mL) subcutaneous pen #15 ml nitroglycerin 0.4 mg sublingual 0.4 mg SL Q5M PRN 90 Days #30 tab 09/19/18 02/05/19 Rx tablet sodium chloride 0.65 % nasal spray 1 sprays INTNAS Q3H PRN 90 Days 09/19/18 02/05/19 Rx aerosol #30 ml fluticasone propionate 2 sprays INTNAS BID 10/29/18 02/05/19 History One-A-Day Women's 50 Plus 1 tab PO QAM 11/16/18 02/05/19 History PreserVision AREDS 1 tab PO BID 11/16/18 02/05/19 History escitalopram 20 mg tablet 20 mg PO QPM #30 tab 11/18/18 02/05/19 Rx gabapentin 600 mg tablet 600 mg PO TID 90 Days #270 tab 11/18/18 02/05/19 Rx azelastine 137 mcg (0.1 %) nasal 2 sprays INTNAS BID #30 ml 12/04/18 02/05/19 History spray aerosol propylene glycol 0.6 % eye drops 1 drops OP BID PRN 12/04/18 02/05/19 History cholecalciferol (vitamin D3) 5,000 5,000 units PO DAILY #30 cap 12/10/18 02/05/19 Rx unit capsule biotin 10,000 mcg capsule 0 mcg PO DAILY cap 12/23/18 02/05/19 History chlorhexidine gluconate 0.12 % 15 ml MUCOUS MEMBRANE BID #15 ml 01/07/19 02/05/19 Rx mouthwash metoprolol succinate ER 50 mg 50 mg PO HS #90 tab 01/27/19 02/05/19 Rx tablet,extended release 24 hr epinephrine 0.3 mg/0.3 mL 0.3 ml IM UD PRN #2 ea 01/28/19 02/05/19 Rx injection, auto-injector insulin glargine (U-100) 100 60 - 64 units SQ HS #3 ml 02/04/19 02/05/19 Rx unit/mL (3 mL) subcutaneous pen Past Med/Surg History Medical History Meningioma Anxiety Arrhythmia "AN EXTRA HEARTBEAT" Breast cancer UNSURE WHICH SIDE WAS CANCER. Chronic back pain Chronic kidney disease MONITORING Chronic neck pain TO HAVE NECK SURGERY WITH DR PATEL Depression Diabetes mellitus, type 2 IDDM Difficult airway for intubation Dysphagia History of esophageal dilatation Hypertension Lymphedema of right arm CHRONIC Osteoarthritis Sleep apnea CPAP Uterine cancer RICHARD BSO Surgical History History of cardiac catheterization NO STENTS History of total abdominal hysterectomy BSO History of cataract surgery BILATERAL History of mastectomy BILATERAL History of knee surgery ARTHROSCOPY LEFT KNEE History of cholecystectomy History of colonoscopy History of esophagogastroduodenoscopy (EGD) Family History Mother Myocardial infarction Social History Preferred Language: Nepalese Communication Ability: Effective Visual Impairment: Partially Limited Hearing Ability: Hard of Hearing Lawn Specialist Required: No Beliefs That Will Affect Care: None marital status: / Current Living Situation: Alone current occupational status: retired Feels Safe at Home: Yes Safety Concerns: Feels Safe At This Time Smoking Status: Former smoker Tobacco Type: cigarettes ; Age Started Using Tobacco: 15 ; Age Quit Using Tobacco: 30 ; packs per day: 1 ; Second Hand Exposure: Yes ; Hx Alcohol Use: No Hx Substance Use: No Childhood Exposure to Second-Hand Smoke: No Dental Care, Regularly: Yes Physical Activity Frequency: Does not Exercise Seatbelt Use: always Sunscreen Use: Yes Review of Systems Review of Systems: All systems reviewed & are unremarkable except as noted in HPI & below Physical Exam Physical Exam: General: patient resting comfortably, NAD, non-toxic in appearance, AA&O x 4 Skin: warm, dry, intact, no rashes or lesions HEENT: NC/AT, PERRL, deviation of right eye, EOMI, anicteric sclera, conjunctiva without injection, external ear normal to inspection and nontender, nares patent, moist mucus membranes, dentition intact, no oropharyngeal lesions, neck supple, trachea midline, no LAD, no thyromegaly, no JVD Heart: +S1/S2, regular, no m/r/g Lungs: equal air entry bilaterally, no rales/rhonchi/wheezes Abd: +BS, soft, NT/ND, no masses/organomegaly/ascites Ext: warm, 2+ pulses in UE/LE bilaterally, no clubbing/cyanosis or edema Neuro: Awake alert and oriented x4, speech is slow, clear and appropriate. Cranial nerves with mild right tongue deviation, diminished sensation in V1/V2 distribution on the right, no facial droop, mildly diminished sensation to light touch of the left upper extremity and left lower extremity. Muscle strength 5 out of 5 in upper and lower extremities on the right. Left with mildly diminished handgrip strength 4/5, mildly diminished strength of arm flexion and extension 4/5. Strength of left lower extremity 5 out of 5 Results & Data Vital Signs (Past 12 Hours) Vital Signs Temp Pulse Resp BP Pulse Ox 02/05/19 15:30 63 95 02/05/19 15:00 66 97 02/05/19 14:31 68 169/72 H 96 02/05/19 14:30 69 97 02/05/19 14:16 64 164/100 H 96 02/05/19 14:01 63 149/67 H 93 02/05/19 14:00 62 95 02/05/19 13:46 60 163/62 H 97 02/05/19 13:42 69 145/68 H 94 02/05/19 13:22 60 98 02/05/19 13:20 64 167/94 H 96 02/05/19 13:11 36.5 C 63 20 132/69 96 Laboratory Results Lab Results 02/05/19 02/05/19 02/05/19 Range/Units 13:20 13:26 13:26 WBC 5.09 (4.8-10.8) K/uL RBC 5.12 (4.2-5.4) M/uL Hgb 12.9 (12.0-16.0) g/dL POC Hgb (12.0-16.0) g/dl Hct 40.5 (37-47) % POC Hct (37-47) % MCV 79.1 L (80-100) fL MCH 25.2 (25-34) pg MCHC 31.9 L (32-36) g/dL RDW Std Deviation 39.7 (36.4-46.3) fL RDW Coeff of Tim 14.0 (11.5-14.5) % Plt Count 106 L (130-400) K/uL MPV 9.3 (7.4-10.4) fL Immature Gran % (Auto) 0.2 % Neut % (Auto) 69.5 % Lymph % (Auto) 22.8 % [place] % (Auto) 5.7 % Eos % (Auto) 1.4 % Baso % (Auto) 0.4 % Immature Gran # (Auto) 0.01 (0.00-0.02) K/uL Neut # (Auto) 3.54 (1.4-6.5) K/uL Lymph # (Auto) 1.16 L (1.2-3.4) K/uL [place] # (Auto) 0.29 (0.11-0.59) K/uL Eos # (Auto) 0.07 (0-0.5) K/uL Baso # (Auto) 0.02 (0-0.2) K/uL PT 11.9 (9.0-12.0) Seconds INR 1.2 H (0.9-1.1) APTT 22.8 (21.0-31.0) Seconds PTT Ratio 0.8 POC Sodium (135-144) mEq/L Sodium (136-145) mmol/L POC Potassium (3.3-5.0) mEq/L Potassium (3.5-5.1) mmol/L POC Chloride (101-112) mEq/L Chloride (98-107) mmol/L Carbon Dioxide (21-32) mmol/L POC Total CO2 (24-31) mEq/l Anion Gap (3-11) POC Anion Gap (16-25) mmol/L POC BUN (7-18) mg/dl BUN (7-18) mg/dl Creatinine (0.6-1.2) mg/dl POC Creatinine (0.6-1.3) mg/dl Est Cr Clr Drug Dosing ml/min Est GFR ( Amer) Est GFR (Non-Af Amer) BUN/Creatinine Ratio (10-20) Glucose (70-99) mg/dl POC Glucose 227 H (70-99) POC Glucose (other) (70-99) mg/dl Calcium (8.5-10.1) mg/dl POC Ioniz Calcium Erin (1.12-1.32) mmol/l Magnesium (1.8-2.4) mg/dl Total Bilirubin (0.2-1) mg/dl AST (15-37) U/L ALT (12-78) U/L Alkaline Phosphatase (45-117) U/L CK-MB (CK-2) (0.5-3.6) ng/ml CK/CKMB % Calc Troponin I (0-0.045) ng/ml Total Protein (6.4-8.2) gm/dl Albumin (3.4-5.0) gm/dl Globulin (2.5-4.0) gm/dl Albumin/Globulin Ratio (0.9-2) Urine Color Urine Appearance (Clear) Urine pH (4.5-7.5) Ur Specific [place] (1.000-1.030) Urine Protein (Negative) Urine Glucose (UA) (Negative) Urine Ketones (Negative) Urine Blood (Negative) Urine Nitrite (Negative) Urine Bilirubin (Negative) Urine Urobilinogen (Negative) Ur Leukocyte Esterase (Negative) 02/05/19 02/05/19 02/05/19 Range/Units 13:26 13:26 13:33 WBC (4.8-10.8) K/uL RBC (4.2-5.4) M/uL Hgb (12.0-16.0) g/dL POC Hgb 14.6 (12.0-16.0) g/dl Hct (37-47) % POC Hct 43 (37-47) % MCV (80-100) fL MCH (25-34) pg MCHC (32-36) g/dL RDW Std Deviation (36.4-46.3) fL RDW Coeff of Tim (11.5-14.5) % Plt Count (130-400) K/uL MPV (7.4-10.4) fL Immature Gran % (Auto) % Neut % (Auto) % Lymph % (Auto) % [place] % (Auto) % Eos % (Auto) % Baso % (Auto) % Immature Gran # (Auto) (0.00-0.02) K/uL Neut # (Auto) (1.4-6.5) K/uL Lymph # (Auto) (1.2-3.4) K/uL [place] # (Auto) (0.11-0.59) K/uL Eos # (Auto) (0-0.5) K/uL Baso # (Auto) (0-0.2) K/uL PT (9.0-12.0) Seconds INR (0.9-1.1) APTT (21.0-31.0) Seconds PTT Ratio POC Sodium 139 (135-144) mEq/L Sodium 138 (136-145) mmol/L POC Potassium 4.5 (3.3-5.0) mEq/L Potassium 4.3 (3.5-5.1) mmol/L POC Chloride 101 (101-112) mEq/L Chloride 103 (98-107) mmol/L Carbon Dioxide 29 (21-32) mmol/L POC Total CO2 30 (24-31) mEq/l Anion Gap 6.0 (3-11) POC Anion Gap 14.0 L (16-25) mmol/L POC BUN 28 H (7-18) mg/dl BUN 24 H (7-18) mg/dl Creatinine 1.28 H (0.6-1.2) mg/dl POC Creatinine 1.0 (0.6-1.3) mg/dl Est Cr Clr Drug Dosing 38.1 ml/min Est GFR ( Amer) 46.4 Est GFR (Non-Af Amer) 40.0 BUN/Creatinine Ratio 19.0 (10-20) Glucose 216 H (70-99) mg/dl POC Glucose (70-99) POC Glucose (other) 224 H (70-99) mg/dl Calcium 9.3 (8.5-10.1) mg/dl POC Ioniz Calcium Erin 1.14 (1.12-1.32) mmol/l Magnesium 1.9 (1.8-2.4) mg/dl Total Bilirubin 0.8 (0.2-1) mg/dl AST 24 (15-37) U/L ALT 31 (12-78) U/L Alkaline Phosphatase 72 (45-117) U/L CK-MB (CK-2) 2.3 Cancelled (0.5-3.6) ng/ml CK/CKMB % Calc Not Reportable Cancelled Troponin I 0.107 H* (0-0.045) ng/ml Total Protein 7.7 (6.4-8.2) gm/dl Albumin 3.4 (3.4-5.0) gm/dl Globulin 4.3 H (2.5-4.0) gm/dl Albumin/Globulin Ratio 0.8 L (0.9-2) Urine Color Urine Appearance (Clear) Urine pH (4.5-7.5) Ur Specific [place] (1.000-1.030) Urine Protein (Negative) Urine Glucose (UA) (Negative) Urine Ketones (Negative) Urine Blood (Negative) Urine Nitrite (Negative) Urine Bilirubin (Negative) Urine Urobilinogen (Negative) Ur Leukocyte Esterase (Negative) 02/05/19 Range/Units 14:34 WBC (4.8-10.8) K/uL RBC (4.2-5.4) M/uL Hgb (12.0-16.0) g/dL POC Hgb (12.0-16.0) g/dl Hct (37-47) % POC Hct (37-47) % MCV (80-100) fL MCH (25-34) pg MCHC (32-36) g/dL RDW Std Deviation (36.4-46.3) fL RDW Coeff of Tim (11.5-14.5) % Plt Count (130-400) K/uL MPV (7.4-10.4) fL Immature Gran % (Auto) % Neut % (Auto) % Lymph % (Auto) % [place] % (Auto) % Eos % (Auto) % Baso % (Auto) % Immature Gran # (Auto) (0.00-0.02) K/uL Neut # (Auto) (1.4-6.5) K/uL Lymph # (Auto) (1.2-3.4) K/uL [place] # (Auto) (0.11-0.59) K/uL Eos # (Auto) (0-0.5) K/uL Baso # (Auto) (0-0.2) K/uL PT (9.0-12.0) Seconds INR (0.9-1.1) APTT (21.0-31.0) Seconds PTT Ratio POC Sodium (135-144) mEq/L Sodium (136-145) mmol/L POC Potassium (3.3-5.0) mEq/L Potassium (3.5-5.1) mmol/L POC Chloride (101-112) mEq/L Chloride (98-107) mmol/L Carbon Dioxide (21-32) mmol/L POC Total CO2 (24-31) mEq/l Anion Gap (3-11) POC Anion Gap (16-25) mmol/L POC BUN (7-18) mg/dl BUN (7-18) mg/dl Creatinine (0.6-1.2) mg/dl POC Creatinine (0.6-1.3) mg/dl Est Cr Clr Drug Dosing ml/min Est GFR ( Amer) Est GFR (Non-Af Amer) BUN/Creatinine Ratio (10-20) Glucose (70-99) mg/dl POC Glucose (70-99) POC Glucose (other) (70-99) mg/dl Calcium (8.5-10.1) mg/dl POC Ioniz Calcium Erin (1.12-1.32) mmol/l Magnesium (1.8-2.4) mg/dl Total Bilirubin (0.2-1) mg/dl AST (15-37) U/L ALT (12-78) U/L Alkaline Phosphatase (45-117) U/L CK-MB (CK-2) (0.5-3.6) ng/ml CK/CKMB % Calc Troponin I (0-0.045) ng/ml Total Protein (6.4-8.2) gm/dl Albumin (3.4-5.0) gm/dl Globulin (2.5-4.0) gm/dl Albumin/Globulin Ratio (0.9-2) Urine Color Dark Yellow Urine Appearance Clear (Clear) Urine pH 5.0 (4.5-7.5) Ur Specific [place] 1.025 (1.000-1.030) Urine Protein Negative (Negative) Urine Glucose (UA) Negative (Negative) Urine Ketones Trace H (Negative) Urine Blood Negative (Negative) Urine Nitrite Negative (Negative) Urine Bilirubin Negative (Negative) Urine Urobilinogen Negative (Negative) Ur Leukocyte Esterase Negative (Negative) Diagnostic Findings CT head/brain wo con CLINICAL HISTORY: 78 years-old Female presenting with Stroke evaluation. TECHNIQUE: Multidetector CT imaging of the head was performed without the use of intravenous contrast. IV contrast: None. One or more dose lowering techniques were used consistent with the principles of ALARA (as low as reasonably achievable), including automatic exposure control, mA or kV adjustment to individual patient size, and/or use of iterative reconstruction. COMPARISON: 12/17/2018. CT DOSE (mGy.cm): The estimated cumulative dose is 537.48. FINDINGS: Environmental Emergencies Assistant topogram: Unremarkable. Ventricles and sulci normal in size. No hemorrhage. Periventricular and subco rtical white matter hypoattenuation, nonspecific but likely indicative of chronic small vessel ischemic change. No acute territorial infarct. No mass effect or midline shift. No extra-axial fluid collection. Paranasal sinuses and mastoid air cells clear. Calvarium intact. Calcified extra-axial mass measuring 14 mm in the anterior right temporal region unchanged from prior. IMPRESSION: 1. Chronic small vessel ischemic change. No acute intracranial abnormality. 2. Unchanged right temporal meningioma. Electronically signed by: Chi Blackwell M.D. 02/05/2019 1:42 PM Dictated: 02/05/19 1339 Transcribed: 02/05/19 1339 XR chest 1V portable CLINICAL HISTORY: Pt c/o facial droop mental status change COMPARISON STUDY: 12/16/2018 FINDINGS: The bones soft tissues and hemidiaphragms are normal. The cardiomediastinal silhouette is normal. The lungs are clear. The pulmonary vasculature is normal. IMPRESSION: Negative chest. The above report was generated using voice recognition software. It may contain grammatical, syntax or spelling errors. Electronically signed by: Keith Brady M.D. 02/05/2019 1:47 PM Dictated: 02/05/19 1347 Transcribed: 02/05/19 1347 ECG Additional Comments: Study shows normal sinus rhythm at 60 bpm, normal axis, NJ = 148, QRS = 76, QTc = 430, unchanged from prior Code Status & VTE Plan Code Status Full code. Patient states that CPR may be attempted only twice and only if the outcome is thought to be favorable VTE Prophylaxis Plan VTE Prophylaxis will be ordered: Yes PG Care Time/CCT Total # of Minutes Spent Total Time Spent with Patient: Total time spent is greater than 50% in coordination of care (as documented) at patient's floor/unit and/or counseling patient: (1) Hypertension Hypertension type: essential hypertension Qualified Code(s): I10 - Essential (primary) hypertension (2) CKD (chronic kidney disease) Chronic kidney disease stage: unspecified stage Qualified Code(s): N18.9 - Chronic kidney disease, unspecified
[2019-02-05] MEDS ORDERED: INFLUENZA ADMINISTRATION CHARGE ONE (16:15)
[2019-02-05] MEDS ORDERED: DEXTROSE 50% 50 ML SYRINGE IV PRN (17:15)
[2019-02-05] MEDS ORDERED: GLUCOSE 10 TABS/TUBE PO PRN (17:15)
[2019-02-05] MEDS ORDERED: CARBOHYDRATES FOR HYPOGLYCEMIA PO PRN (17:15)
[2019-02-05] MEDS ORDERED: ACETAMINOPHEN 325 MG TAB PO PRN (17:15)
[2019-02-05] MEDS ORDERED: GLUCAGON FOR INJ 1 MG VIAL SQ PRN (17:15)
[2019-02-05] MEDS ORDERED: GLUCOSE 40% GEL 15 GM TUBE PO PRN (17:15)
[2019-02-05] MEDS: LACTATED RINGER'S 1,000 ML IV SCH (18:19)
[2019-02-05] MEDS: INSULIN ASPART 100 UNITS/ML 3 ML PEN SC SCH ×2 (18:23→20:26)
[2019-02-05] MEDS: PRAVASTATIN SOD 40 MG TAB PO SCH ×2 (18:23→18:40)
[2019-02-05] MEDS: CLOPIDOGREL BISULFATE 75 MG TAB PO SCH (18:28)
[2019-02-05] MEDS: FLUTICASONE PROPIONATE NA SPR 16 GM BTL SCH (20:26)
[2019-02-05] MEDS: ESCITALOPRAM OXALATE 20 MG TAB PO SCH (20:26)
[2019-02-05] MEDS: INSULIN GLARGINE SOLOSTAR 100 UNITS/ML 3 ML PEN SC SCH (20:27)
--- NOTE | 2019-02-05 20:40 | Emergency Department Note ---
Entered by Chelsie Harper acting as a scribe for Chauncey Love MD History of Present Illness General Chief complaint: Stroke/CVA Symptoms Stated complaint: OFF BALANCE, FACE DROOPING Source: patient History of Present Illness Provider complaint: Stroke Symptoms Onset (ago): day(s) 1 Location: head Radiation: non-radiation Relieved By: + none Exacerbated By: + none Associated symptoms: + other (Seeing double, problems walking) The patient is a 78 year old female who presents to the Emergency Room with complaints of stroke symptoms that began 12 hours ago. The patient states the symptoms do not radiate anywhere else on her body and are not relieved nor exacerbated by anything specific. The patient reports experiencing double vision and difficulty walking. Home Medications Home Medications Medication Instructions Recorded Confirmed Type aspirin 81 mg tablet,delayed 162 mg PO QPM 09/19/18 02/05/19 History release insulin aspart (U-100) 100 unit/mL See Rx Instructions SQ BID 90 Days 09/19/18 02/05/19 Rx (3 mL) subcutaneous pen #15 ml nitroglycerin 0.4 mg sublingual 0.4 mg SL Q5M PRN 90 Days #30 tab 09/19/18 02/05/19 Rx tablet sodium chloride 0.65 % nasal spray 1 sprays INTNAS Q3H PRN 90 Days 09/19/18 02/05/19 Rx aerosol #30 ml fluticasone propionate 2 sprays INTNAS BID 10/29/18 02/05/19 History One-A-Day Women's 50 Plus 1 tab PO QAM 11/16/18 02/05/19 History PreserVision AREDS 1 tab PO BID 11/16/18 02/05/19 History escitalopram 20 mg tablet 20 mg PO QPM #30 tab 11/18/18 02/05/19 Rx gabapentin 600 mg tablet 600 mg PO TID 90 Days #270 tab 11/18/18 02/05/19 Rx azelastine 137 mcg (0.1 %) nasal 2 sprays INTNAS BID #30 ml 12/04/18 02/05/19 History spray aerosol propylene glycol 0.6 % eye drops 1 drops OP BID PRN 12/04/18 02/05/19 History cholecalciferol (vitamin D3) 5,000 5,000 units PO DAILY #30 cap 12/10/18 02/05/19 Rx unit capsule biotin 10,000 mcg capsule 0 mcg PO DAILY cap 12/23/18 02/05/19 History chlorhexidine gluconate 0.12 % 15 ml MUCOUS MEMBRANE BID #15 ml 01/07/19 02/05/19 Rx mouthwash metoprolol succinate ER 50 mg 50 mg PO HS #90 tab 01/27/19 02/05/19 Rx tablet,extended release 24 hr epinephrine 0.3 mg/0.3 mL 0.3 ml IM UD PRN #2 ea 01/28/19 02/05/19 Rx injection, auto-injector insulin glargine (U-100) 100 60 - 64 units SQ HS #3 ml 02/04/19 02/05/19 Rx unit/mL (3 mL) subcutaneous pen Allergies Allergy/AdvReac Type Severity Reaction Status Date / Time Bactrim Allergy Severe THROAT Verified 05/14/15 15:22 CLOSED meperidine Allergy Severe almost Unverified 02/05/19 14:59 "closed throat" midodrine Allergy Severe "almost Unverified 02/05/19 14:59 closed throat" Penicillins Allergy Severe ANAPHYLAXIS Unverified 02/05/19 14:59 Quinolones Allergy Severe TOLERATED Verified 02/05/19 14:59 LEVAQUIN IV - ELIO 07 sulfamethoxazole Allergy Severe THROAT Verified 02/05/19 14:59 CLOSED trimethoprim Allergy Severe THROAT Verified 02/05/19 14:59 CLOSED diphenoxylate Allergy Intermediate Unknown Verified 02/05/19 14:59 glyburide Allergy Intermediate SEVERE Verified 02/05/19 14:59 ABDOMINAL PAIN metformin Allergy Intermediate SEVERE Verified 02/05/19 14:59 ABDOMINAL PAIN metronidazole [From Flagyl] Allergy Intermediate Hives Verified 02/05/19 14:59 nitrofurantoin Allergy Intermediate Unknown Verified 02/05/19 14:59 oxycodone Allergy Intermediate SEVERE Verified 02/05/19 14:59 WITHDRAWAL SYMPTOMS WHEN TRYING TO STOP TAKING ranitidine Allergy Intermediate Unknown Verified 02/05/19 14:59 repaglinide Allergy Intermediate Unknown Verified 02/05/19 14:59 rosiglitazone Allergy Intermediate Unknown Verified 02/05/19 14:59 DENILSON Inhibitors Allergy Unknown unknown to Unverified 02/05/19 14:59 pt atropine Allergy Unknown Unknown Verified 02/05/19 14:59 Histamine H2 Inhibitors Allergy Unknown unknown to Unverified 02/05/19 14:59 pt Iodinated Contrast Media Allergy Unknown JULY 2017 Verified 02/05/19 14:59 [facility] -- TOLERATED WITH SLOW INFUSION PER PATIENT phenazopyridine Allergy Unknown Unknown Verified 02/05/19 14:59 carvedilol Allergy Unknown Verified 02/05/19 14:59 carbamazepine AdvReac Severe Unknown Verified 02/05/19 14:59 valproic acid AdvReac Severe Unknown Verified 02/05/19 14:59 albuterol AdvReac Intermediate UNK Verified 02/05/19 14:59 olanzapine AdvReac Intermediate Unknown Verified 02/05/19 14:59 paroxetine AdvReac Intermediate DID NOT Verified 02/05/19 14:59 HELP rofecoxib AdvReac Intermediate Unknown Verified 02/05/19 14:59 temazepam AdvReac Intermediate DID NOT Verified 02/05/19 14:59 HELP diazepam AdvReac Mild SEDATION Verified 02/05/19 14:59 LASTING TOO LONG ibuprofen AdvReac Mild Unknown Verified 02/05/19 14:59 lisinopril AdvReac Mild UNK Verified 02/05/19 14:59 mirtazapine AdvReac Mild Unknown Verified 02/05/19 14:59 Past Med/Surg History Medical History Meningioma Anxiety Arrhythmia "AN EXTRA HEARTBEAT" Breast cancer UNSURE WHICH SIDE WAS CANCER. Chronic back pain Chronic kidney disease MONITORING Chronic neck pain TO HAVE NECK SURGERY WITH DR PATEL Depression Diabetes mellitus, type 2 IDDM Difficult airway for intubation Dysphagia History of esophageal dilatation Hypertension Lymphedema of right arm CHRONIC Osteoarthritis Sleep apnea CPAP Uterine cancer RICHARD BSO Surgical History History of cardiac catheterization NO STENTS History of total abdominal hysterectomy BSO History of cataract surgery BILATERAL History of mastectomy BILATERAL History of knee surgery ARTHROSCOPY LEFT KNEE History of cholecystectomy History of colonoscopy History of esophagogastroduodenoscopy (EGD) Family History Mother Myocardial infarction Social History Preferred Language: Azerbaijani Communication Ability: Effective Visual Impairment: Partially Limited Hearing Ability: Hard of Hearing Ring Striker Required: No Beliefs That Will Affect Care: None marital status: / Current Living Situation: Alone current occupational status: retired Feels Safe at Home: Yes Smoking Status: Former smoker Tobacco Type: cigarettes ; Age Started Using Tobacco: 15 ; Age Quit Using Tobacco: 30 ; packs per day: 1 ; Second Hand Exposure: Yes ; Hx Alcohol Use: No Hx Substance Use: No Childhood Exposure to Second-Hand Smoke: No Dental Care, Regularly: Yes Physical Activity Frequency: Does not Exercise Seatbelt Use: always Sunscreen Use: Yes Review of Systems See HPI for pertinent positives & negatives. and A total of 10 systems reviewed and were otherwise negative Physical Exam Vital Signs Vital Signs - 24 hr 02/05/19 13:11 02/05/19 13:20 02/05/19 13:22 Temperature 36.5 C Temperature Source Oral Sepsis Recent Fever Within 48 Hours No Sepsis Action Taken by Nursing No Action Required Pulse Rate 63 64 60 Pulse Rate from SpO2 Sensor 63 60 Respiratory Rate 20 Respiratory Effort / Characteristics Non-Labored Spontaneous Respiratory Depth Normal Blood Pressure 132/69 167/94 H Blood Pressure Mean 90 118 Blood Pressure Position Sitting Pulse Oximetry 96 96 98 Oxygen Delivery Method Room Air 02/05/19 13:42 02/05/19 13:46 02/05/19 13:52 Temperature Temperature Source Sepsis Recent Fever Within 48 Hours Sepsis Action Taken by Nursing Pulse Rate 69 60 Pulse Rate from SpO2 Sensor 70 60 Respiratory Rate Respiratory Effort / Characteristics Respiratory Depth Blood Pressure 145/68 H 163/62 H Blood Pressure Mean 93 95 Blood Pressure Position Pulse Oximetry 94 97 Oxygen Delivery Method Room Air 02/05/19 14:00 02/05/19 14:01 02/05/19 14:16 Temperature Temperature Source Sepsis Recent Fever Within 48 Hours Sepsis Action Taken by Nursing Pulse Rate 62 63 64 Pulse Rate from SpO2 Sensor 62 63 64 Respiratory Rate Respiratory Effort / Characteristics Respiratory Depth Blood Pressure 149/67 H 164/100 H Blood Pressure Mean 94 121 Blood Pressure Position Pulse Oximetry 95 93 96 Oxygen Delivery Method 02/05/19 14:30 02/05/19 14:31 02/05/19 15:00 Temperature Temperature Source Sepsis Recent Fever Within 48 Hours Sepsis Action Taken by Nursing Pulse Rate 69 68 66 Pulse Rate from SpO2 Sensor 69 68 66 Respiratory Rate Respiratory Effort / Characteristics Respiratory Depth Blood Pressure 169/72 H Blood Pressure Mean 104 Blood Pressure Position Pulse Oximetry 97 96 97 Oxygen Delivery Method 02/05/19 15:30 02/05/19 15:36 Temperature Temperature Source Sepsis Recent Fever Within 48 Hours Sepsis Action Taken by Nursing Pulse Rate 63 57 L Pulse Rate from SpO2 Sensor 64 56 L Respiratory Rate Respiratory Effort / Characteristics Respiratory Depth Blood Pressure 169/72 H Blood Pressure Mean 104 Blood Pressure Position Pulse Oximetry 95 99 Oxygen Delivery Method GENERAL: Awake, alert, well-appearing, in no acute distress. Lazy eye left eye. Appears old. HENT: Normocephalic, atraumatic. Oropharynx unremarkable. EYES: Normal conjunctiva. Sclera non-icteric. NECK: Supple. No nuchal rigidity. FROM. No JVD. RESPIRATORY: Clear to auscultation. CARDIAC: Regular rate, normal rhythm. Extremities warm and well perfused. Pulses equal. ABDOMEN: Soft, non-distended. No tenderness to palpation. No rebound or guarding. No masses. RECTAL: Deferred. MUSCULOSKELETAL: Chest examination reveals no tenderness. The back is symmetrical on inspection without obvious abnormality. There is no CVA tenderness to palpation. No joint edema. LOWER EXTREMITIES: Calves are equal size bilaterally and non-tender. No edema. No discoloration. 4/5 strength bilaterally to legs. NEURO: Normal sensorium. No sensory or motor deficits noted. SKIN: No rash or jaundice noted. Course 1320: Past medical records reviewed. The patient was evaluated in room A01. A complete history and physical exam was performed. 1502: I spoke with Dr. Julia Monae- Hospitalist about the patient's case and she will accept the patient for further evaluation. Administered Medications Clopidogrel Bisulfate (Plavix) 75 mg PO QAM [facility] Stop: 03/07/19 15:49 Last Admin: 02/07/19 07:43 Dose: 75 mg Documented by: [id number] Admin: 02/06/19 10:47 Dose: Not Given Documented by: [id number] Admin: 02/05/19 18:28 Dose: Not Given Documented by: [id number] Escitalopram Oxalate (Lexapro Tab) 20 mg PO QPM [facility] Stop: 03/07/19 20:59 Last Admin: 02/06/19 21:46 Dose: 20 mg Documented by: [id number] Admin: 02/05/19 20:26 Dose: 20 mg Documented by: [id number] Fluticasone Propionate (Flonase) 2 sprays NA BID [facility] Stop: 03/07/19 20:59 Last Admin: 02/07/19 07:38 Dose: 2 sprays Documented by: [id number] Admin: 02/06/19 21:45 Dose: 2 sprays Documented by: [id number] Admin: 02/06/19 09:26 Dose: 2 sprays Documented by: [id number] Admin: 02/05/19 20:26 Dose: 2 sprays Documented by: [id number] Gabapentin (Neurontin) 600 mg PO BID@1800,0000 [facility] Stop: 03/08/19 00:00 Last Admin: 02/07/19 17:20 Dose: 600 mg Documented by: [id number] Admin: 02/06/19 23:36 Dose: 600 mg Documented by: [id number] Admin: 02/06/19 16:55 Dose: 600 mg Documented by: [id number] Admin: 02/05/19 23:07 Dose: 600 mg Documented by: [id number] Gadobutrol (Gadavist 65ml) 10 ml IV ONCE PRN PRN Reason: Interaction Checking Stop: 02/09/19 22:11 Last Admin: 02/05/19 22:13 Dose: 10 ml Documented by: [id number] Sodium Chloride (Nss 1000ml) 1,000 mls @ 100 mls/hr IV .Q10H [facility] Stop: 03/09/19 08:59 Last Infusion: 02/07/19 09:37 Dose: 0 mls/hr Documented by: [id number] Admin: 02/07/19 09:00 Dose: 100 mls/hr Documented by: [id number] Insulin Aspart (Novolog Flexpen) 0 units SC ACHS [facility] Stop: 03/07/19 17:14 Last Admin: 02/07/19 17:22 Dose: 9 units Documented by: [id number] Cosigned by: [id number] Admin: 02/07/19 12:53 Dose: 6 units Documented by: [id number] Cosigned by: [id number] Admin: 02/07/19 07:39 Dose: 7 units Documented by: [id number] Cosigned by: [id number] Admin: 02/06/19 21:46 Dose: 1 units Documented by: [id number] Cosigned by: [id number] Admin: 02/06/19 16:54 Dose: 9 units Documented by: [id number] Cosigned by: [id number] Admin: 02/06/19 13:56 Dose: 5 units Documented by: [id number] Cosigned by: [id number] Admin: 02/06/19 09:24 Dose: Not Given Documented by: [id number] Cosigned by: [id number] Admin: 02/05/19 20:26 Dose: Not Given Documented by: [id number] Cosigned by: [id number] Admin: 02/05/19 18:23 Dose: 4 units Documented by: [id number] Cosigned by: [id number] Insulin Glargine (Lantus Solostar Pen) 25 units SC BID [facility] Stop: 03/07/19 20:59 Last Admin: 02/07/19 07:42 Dose: 25 units Documented by: [id number] Cosigned by: [id number] Admin: 02/06/19 21:52 Dose: 25 units Documented by: [id number] Cosigned by: [id number] Admin: 02/06/19 09:26 Dose: 25 units Documented by: [id number] Cosigned by: [id number] Admin: 02/05/19 20:27 Dose: 25 units Documented by: [id number] Cosigned by: [id number] Miscellaneous (Order Awaiting Action) 1 ea N/A QS [facility] Stop: 03/08/19 00:00 Last Admin: 02/07/19 17:07 Dose: Not Given Documented by: [id number] Admin: 02/07/19 07:37 Dose: Not Given Documented by: [id number] Admin: 02/06/19 23:36 Dose: Not Given Documented by: [id number] Admin: 02/06/19 15:41 Dose: Not Given Documented by: [id number] Admin: 02/06/19 09:26 Dose: Not Given Documented by: [id number] Admin: 02/05/19 23:07 Dose: Not Given Documented by: [id number] Miscellaneous (Carbohydrates For Hypoglycemia) 15 - 30 gm PO UD PRN PRN Reason: Hypoglycemia Protocol Stop: 03/07/19 17:14 Last Admin: 02/06/19 04:21 Dose: 15 gm Documented by: [id number] Pravastatin Sodium (Pravachol) 40 mg PO DAILY@1700 [facility] Stop: 03/07/19 17:14 Last Admin: 02/07/19 17:20 Dose: 40 mg Documented by: [id number] Admin: 02/06/19 16:55 Dose: 40 mg Documented by: [id number] Admin: 02/05/19 18:40 Dose: Not Given Documented by: [id number] Discontinued Medications Aspirin (Ecotrin Ectab) 162 mg PO QPM [facility] Stop: 03/07/19 21:39 Last Admin: 02/06/19 21:45 Dose: 162 mg Documented by: [id number] Admin: 02/05/19 23:07 Dose: 162 mg Documented by: [id number] Diphenhydramine HCl (Benadryl) Confirm Administered Dose 50 mg .ROUTE .STK-MED ONE Stop: 02/05/19 13:34 Last Admin: 02/05/19 13:43 Dose: Not Given Documented by: [id number] Gabapentin (Neurontin) 600 mg PO TID [facility] Stop: 03/07/19 20:59 Last Admin: 02/05/19 18:28 Dose: 600 mg Documented by: [id number] Sodium Chloride (Nss) 500 mls @ 999 mls/hr IV .Q31M ONE Stop: 02/05/19 14:47 Last Infusion: 02/05/19 15:17 Dose: 0 mls/hr Documented by: [id number] Admin: 02/05/19 14:35 Dose: 999 mls/hr Documented by: [id number] Ceftriaxone Sodium (Rocephin) 2,000 mg in 70 mls @ 140 mls/hr IV NOW STA Stop: 02/05/19 15:04 Last Infusion: 02/05/19 15:22 Dose: 0 mls/hr Documented by: [id number] Admin: 02/05/19 14:51 Dose: 140 mls/hr Documented by: [id number] Lactated Ringer's (Lr) 1,000 mls @ 100 mls/hr IV .Q10H [facility] Stop: 02/06/19 13:14 Last Infusion: 02/06/19 15:40 Dose: 0 mls/hr Documented by: [id number] Admin: 02/06/19 05:08 Dose: 100 mls/hr Documented by: [id number] Infusion: 02/06/19 04:19 Dose: 100 mls/hr Documented by: [id number] Admin: 02/05/19 18:19 Dose: 100 mls/hr Documented by: [id number] Influenza Virus Vaccine (Fluzone High-Dose Pf) 0.5 ml IM .ONCE ONE Stop: 02/05/19 16:01 Last Admin: 02/06/19 15:42 Dose: Not Given Documented by: [id number] Medical Decision Making Differential Diagnosis Differential Diagnosis includes but is not limited to dehydration, stroke, anemia, hypoglycemia, hyponatremia, hypernatremia, urinary tract infection, pneumonia, bronchitis, sepsis, gastroenteritis, additional abdominal pathology, metabolic abnormalities and infections. Medical Records Attestation: I reviewed the patient's medical records. Home Medications Current Medication List: was personally reviewed by me Laboratory Data Attestation: I reviewed the patient's lab results. Result diagrams: 02/07/19 07:03 02/07/19 07:03 Lab Results 02/05/19 02/05/19 02/05/19 Range/Units 13:20 13:26 13:26 WBC 5.09 (4.8-10.8) K/uL RBC 5.12 (4.2-5.4) M/uL Hgb 12.9 (12.0-16.0) g/dL POC Hgb (12.0-16.0) g/dl Hct 40.5 (37-47) % POC Hct (37-47) % MCV 79.1 L (80-100) fL MCH 25.2 (25-34) pg MCHC 31.9 L (32-36) g/dL RDW Std Deviation 39.7 (36.4-46.3) fL RDW Coeff of Tim 14.0 (11.5-14.5) % Plt Count 106 L (130-400) K/uL MPV 9.3 (7.4-10.4) fL Immature Gran % (Auto) 0.2 % Neut % (Auto) 69.5 % Lymph % (Auto) 22.8 % Cottle % (Auto) 5.7 % Eos % (Auto) 1.4 % Baso % (Auto) 0.4 % Immature Gran # (Auto) 0.01 (0.00-0.02) K/uL Neut # (Auto) 3.54 (1.4-6.5) K/uL Lymph # (Auto) 1.16 L (1.2-3.4) K/uL Cottle # (Auto) 0.29 (0.11-0.59) K/uL Eos # (Auto) 0.07 (0-0.5) K/uL Baso # (Auto) 0.02 (0-0.2) K/uL PT 11.9 (9.0-12.0) Seconds INR 1.2 H (0.9-1.1) APTT 22.8 (21.0-31.0) Seconds PTT Ratio 0.8 POC Sodium (135-144) mEq/L Sodium (136-145) mmol/L POC Potassium (3.3-5.0) mEq/L Potassium (3.5-5.1) mmol/L POC Chloride (101-112) mEq/L Chloride (98-107) mmol/L Carbon Dioxide (21-32) mmol/L POC Total CO2 (24-31) mEq/l Anion Gap (3-11) POC Anion Gap (16-25) mmol/L POC BUN (7-18) mg/dl BUN (7-18) mg/dl Creatinine (0.6-1.2) mg/dl POC Creatinine (0.6-1.3) mg/dl Est Cr Clr Drug Dosing ml/min Est GFR ( Amer) Est GFR (Non-Af Amer) BUN/Creatinine Ratio (10-20) Glucose (70-99) mg/dl POC Glucose 227 H (70-99) POC Glucose (other) (70-99) mg/dl Estimat Average Glucose mg/dl Hemoglobin A1c (4.5-5.6) % Calcium (8.5-10.1) mg/dl POC Ioniz Calcium Erin (1.12-1.32) mmol/l Phosphorus (2.5-4.9) mg/dl Magnesium (1.8-2.4) mg/dl Total Bilirubin (0.2-1) mg/dl AST (15-37) U/L ALT (12-78) U/L Alkaline Phosphatase (45-117) U/L CK-MB (CK-2) (0.5-3.6) ng/ml CK/CKMB % Calc Troponin I (0-0.045) ng/ml Total Protein (6.4-8.2) gm/dl Albumin (3.4-5.0) gm/dl Globulin (2.5-4.0) gm/dl Albumin/Globulin Ratio (0.9-2) Urine Color Urine Appearance (Clear) Urine pH (4.5-7.5) Ur Specific [place] (1.000-1.030) Urine Protein (Negative) Urine Glucose (UA) (Negative) Urine Ketones (Negative) Urine Blood (Negative) Urine Nitrite (Negative) Urine Bilirubin (Negative) Urine Urobilinogen (Negative) Ur Leukocyte Esterase (Negative) 02/05/19 02/05/19 02/05/19 Range/Units 13:26 13:26 13:26 WBC (4.8-10.8) K/uL RBC (4.2-5.4) M/uL Hgb (12.0-16.0) g/dL POC Hgb (12.0-16.0) g/dl Hct (37-47) % POC Hct (37-47) % MCV (80-100) fL MCH (25-34) pg MCHC (32-36) g/dL RDW Std Deviation (36.4-46.3) fL RDW Coeff of Tim (11.5-14.5) % Plt Count (130-400) K/uL MPV (7.4-10.4) fL Immature Gran % (Auto) % Neut % (Auto) % Lymph % (Auto) % Cottle % (Auto) % Eos % (Auto) % Baso % (Auto) % Immature Gran # (Auto) (0.00-0.02) K/uL Neut # (Auto) (1.4-6.5) K/uL Lymph # (Auto) (1.2-3.4) K/uL Cottle # (Auto) (0.11-0.59) K/uL Eos # (Auto) (0-0.5) K/uL Baso # (Auto) (0-0.2) K/uL PT (9.0-12.0) Seconds INR (0.9-1.1) APTT (21.0-31.0) Seconds PTT Ratio POC Sodium (135-144) mEq/L Sodium 138 (136-145) mmol/L POC Potassium (3.3-5.0) mEq/L Potassium 4.3 (3.5-5.1) mmol/L POC Chloride (101-112) mEq/L Chloride 103 (98-107) mmol/L Carbon Dioxide 29 (21-32) mmol/L POC Total CO2 (24-31) mEq/l Anion Gap 6.0 (3-11) POC Anion Gap (16-25) mmol/L POC BUN (7-18) mg/dl BUN 24 H (7-18) mg/dl Creatinine 1.28 H (0.6-1.2) mg/dl POC Creatinine (0.6-1.3) mg/dl Est Cr Clr Drug Dosing 38.1 ml/min Est GFR ( Amer) 46.4 Est GFR (Non-Af Amer) 40.0 BUN/Creatinine Ratio 19.0 (10-20) Glucose 216 H (70-99) mg/dl POC Glucose (70-99) POC Glucose (other) (70-99) mg/dl Estimat Average Glucose mg/dl Hemoglobin A1c (4.5-5.6) % Calcium 9.3 (8.5-10.1) mg/dl POC Ioniz Calcium Erin (1.12-1.32) mmol/l Phosphorus 4.2 (2.5-4.9) mg/dl Magnesium 1.9 (1.8-2.4) mg/dl Total Bilirubin 0.8 (0.2-1) mg/dl AST 24 (15-37) U/L ALT 31 (12-78) U/L Alkaline Phosphatase 72 (45-117) U/L CK-MB (CK-2) 2.3 Cancelled (0.5-3.6) ng/ml CK/CKMB % Calc Not Reportable Cancelled Troponin I 0.107 H* (0-0.045) ng/ml Total Protein 7.7 (6.4-8.2) gm/dl Albumin 3.4 (3.4-5.0) gm/dl Globulin 4.3 H (2.5-4.0) gm/dl Albumin/Globulin Ratio 0.8 L (0.9-2) Urine Color Urine Appearance (Clear) Urine pH (4.5-7.5) Ur Specific [place] (1.000-1.030) Urine Protein (Negative) Urine Glucose (UA) (Negative) Urine Ketones (Negative) Urine Blood (Negative) Urine Nitrite (Negative) Urine Bilirubin (Negative) Urine Urobilinogen (Negative) Ur Leukocyte Esterase (Negative) 02/05/19 02/05/19 02/05/19 Range/Units 13:26 13:33 14:34 WBC (4.8-10.8) K/uL RBC (4.2-5.4) M/uL Hgb (12.0-16.0) g/dL POC Hgb 14.6 (12.0-16.0) g/dl Hct (37-47) % POC Hct 43 (37-47) % MCV (80-100) fL MCH (25-34) pg MCHC (32-36) g/dL RDW Std Deviation (36.4-46.3) fL RDW Coeff of Tim (11.5-14.5) % Plt Count (130-400) K/uL MPV (7.4-10.4) fL Immature Gran % (Auto) % Neut % (Auto) % Lymph % (Auto) % Cottle % (Auto) % Eos % (Auto) % Baso % (Auto) % Immature Gran # (Auto) (0.00-0.02) K/uL Neut # (Auto) (1.4-6.5) K/uL Lymph # (Auto) (1.2-3.4) K/uL Cottle # (Auto) (0.11-0.59) K/uL Eos # (Auto) (0-0.5) K/uL Baso # (Auto) (0-0.2) K/uL PT (9.0-12.0) Seconds INR (0.9-1.1) APTT (21.0-31.0) Seconds PTT Ratio POC Sodium 139 (135-144) mEq/L Sodium (136-145) mmol/L POC Potassium 4.5 (3.3-5.0) mEq/L Potassium (3.5-5.1) mmol/L POC Chloride 101 (101-112) mEq/L Chloride (98-107) mmol/L Carbon Dioxide (21-32) mmol/L POC Total CO2 30 (24-31) mEq/l Anion Gap (3-11) POC Anion Gap 14.0 L (16-25) mmol/L POC BUN 28 H (7-18) mg/dl BUN (7-18) mg/dl Creatinine (0.6-1.2) mg/dl POC Creatinine 1.0 (0.6-1.3) mg/dl Est Cr Clr Drug Dosing ml/min Est GFR ( Amer) Est GFR (Non-Af Amer) BUN/Creatinine Ratio (10-20) Glucose (70-99) mg/dl POC Glucose (70-99) POC Glucose (other) 224 H (70-99) mg/dl Estimat Average Glucose 166 mg/dl Hemoglobin A1c 7.4 H (4.5-5.6) % Calcium (8.5-10.1) mg/dl POC Ioniz Calcium Erin 1.14 (1.12-1.32) mmol/l Phosphorus (2.5-4.9) mg/dl Magnesium (1.8-2.4) mg/dl Total Bilirubin (0.2-1) mg/dl AST (15-37) U/L ALT (12-78) U/L Alkaline Phosphatase (45-117) U/L CK-MB (CK-2) (0.5-3.6) ng/ml CK/CKMB % Calc Troponin I (0-0.045) ng/ml Total Protein (6.4-8.2) gm/dl Albumin (3.4-5.0) gm/dl Globulin (2.5-4.0) gm/dl Albumin/Globulin Ratio (0.9-2) Urine Color Dark Yellow Urine Appearance Clear (Clear) Urine pH 5.0 (4.5-7.5) Ur Specific [place] 1.025 (1.000-1.030) Urine Protein Negative (Negative) Urine Glucose (UA) Negative (Negative) Urine Ketones Trace H (Negative) Urine Blood Negative (Negative) Urine Nitrite Negative (Negative) Urine Bilirubin Negative (Negative) Urine Urobilinogen Negative (Negative) Ur Leukocyte Esterase Negative (Negative) Imaging Data Radiologist's Impression: Radiology results as stated below per my review and the radiologist's interpretation: XR chest 1V portable CLINICAL HISTORY: Pt c/o facial droop mental status change COMPARISON STUDY: 12/16/2018 FINDINGS: The bones soft tissues and hemidiaphragms are normal. The cardiomedia stinal silhouette is normal. The lungs are clear. The pulmonary vasculature is normal. IMPRESSION: Negative chest. The above report was generated using voice recognition software. It may contain grammatical, syntax or spelling errors. Electronically signed by: Keith Brady M.D. 02/05/2019 1:[address] head/brain wo con CLINICAL HISTORY: 78 years-old Female presenting with Stroke evaluation. TECHNIQUE: Multidetector CT imaging of the head was performed without the use of intravenous contrast. IV contrast: None. One or more dose lowering techniques were used consistent with the principles of ALARA (as low as reasonably achievable), including automatic exposure control, mA or kV adjustment to individual patient size, and/or use of iterative reconstruction. COMPARISON: 12/17/2018. CT DOSE (mGy.cm): The estimated cumulative dose is 537.48. FINDINGS: Heel Seam Rubber topogram: Unremarkable. Ventricles and sulci normal in size. No hemorrhage. Periventricular and subcortical white matter hypoattenuation, nonspecific but likely indicative of chronic small vessel ischemic change. No acute territorial infarct. No mass effect or midline shift. No extra-axial fluid collection. Paranasal sinuses and mastoid air cells clear. Calvarium intact. Calcified extra-axial mass measuring 14 mm in the anterior right temporal region unchanged from prior. IMPRESSION: 1. Chronic small vessel ischemic change. No acute intracranial abnormality. 2. Unchanged right temporal meningioma. Electronically signed by: Chi Blackwell M.D. 02/05/2019 1:42 PM ECG Data Attestation: I personally reviewed and interpreted this ECG as follows: Indication: + other (Stroke like symptoms) Rate (beats per minute): 60 Rhythm: + normal sinus ECG ST segments: + Normal ST segments ECG Findings: + Other (QTC 430) Blood Pressure Blood Pressure Findings: Elevated blood pressure Blood Pressure Disposition: further management by hospitalist [facility] Narrative This 78-year-old female who presents emergency department over concerns that she was feeling weak and unable to walk at home. She was brought into the emergency department by her daughter. A stroke alert was initiated however CAT scan is not showing any acute process. She also scores exceedingly low on the stroke scale therefore I do not feel she is a candidate for TPA. She was given a normal saline bolus and she is dehydrated according to her laboratory work. For this reason I did discuss the case with the hospitalist service who did agree to admit the patient. Patient and family were in agreement with the treatment plan. Impression & Plan IDDM (insulin dependent diabetes mellitus), Hypertension, Cellulitis of face, Weakness Discharge Plan Visit Data *Final* Discharge Date/Time: 02/05/19 16:31 Chief Complaint: Stroke/CVA Symptoms Stated Complaint: OFF BALANCE, FACE DROOPING ED Provider: Chauncey Love Discharge Problem: IDDM (insulin dependent diabetes mellitus), Hypertension, Cellulitis of face, Weakness Patient Disposition: Admitted As Inpatient Discharge Instructions Interventions: ED Discharge Assessment Last Done: 02/05/19 16:31 Discharge Problem: Hypertension Qualifiers: Hypertension type: unspecified Qualified Code(s): I10 - Essential (primary) hypertension The scribe's documentation has been prepared under my direction and personally reviewed by me in its entirety. I confirm that the note above accurately reflec ts all work, treatment, procedures, and medical decision making performed by me.
[2019-02-05] MEDS ORDERED: GABAPENTIN 600 MG TAB PO SCH (21:00)
--- NOTE | 2019-02-05 22:08 | Magnetic Resonance Report ---
MR ANGIOGRAM OF THE BRAIN CLINICAL HISTORY: Headache and weakness. COMPARISON STUDY: CT of the brain dated 02/05/2019. TECHNIQUE: 3-D [id number] MR angiography of the intracranial circulation is performed. 3-D tumble views are created and assessed. IV contrast was not administered for this examination. The examinati on is compromised by motion artifact. FINDINGS: There is origin of the right posterior cerebral artery. The internal carotid arteries are widely patent bilaterally, as are the anterior and middle cerebral arteries. The vertebrobasilar system and posterior cerebral arteries are widely patent. The right vertebral artery is dominant. T here is no aneurysm, high-grade stenosis, or focal vessel cutoff seen throughout the intracranial cir culation. The brain parenchyma is normal as visualized. IMPRESSION: Unremarkable MR angiogram of the brain. Electronically signed by: Joey Patterson M.D. 02/05/2019 10:07 PM
[2019-02-05] MEDS ORDERED: GADOBUTROL 65ML VIAL IV PRN (22:12)
--- NOTE | 2019-02-05 22:40 | Magnetic Resonance Report ---
MRI OF THE BRAIN COMBO CLINICAL HISTORY: Left-sided weakness. Headache. COMPARISON STUDY: CT of the brain dated 02/05/2019. MRI of the brain dated 05/14/2015. TECHNIQUE: MRI of the brain was performed utilizing various T1 and T2-weighted sequences in the axial , sagittal, and coronal planes. Contrast-enhanced sequences were acquired following the administratio n of 10 cc of Gadavist. FINDINGS: Brain parenchyma: There is a subcentimeter focus of restricted diffusion identified in the left carey on image #7. This is consistent with an acute to subacute lacunar infarct. No additional foci of rest ricted diffusion are identified. There is age-related involutional change noting moderate confluent s ubcortical and periventricular microangiopathic disease. A 1.6 cm calcified extra-axial nodule along the right temporal convexity is consistent with a meningioma. This is unchanged from previous and the re is no associated mass effect. No additional enhancing lesion is identified on the postcontrast seq uences. There is no hemorrhage or mass effect. Fregoso-white matter differentiation is preserved. No ext ra-axial fluid collection is seen. The cerebellar tonsils are normal in configuration. Ventricles, sulci, and cisterns: Prominent secondary to involutional change. Pituitary and sella: Partially empty sella is incidentally noted. Intracranial vasculature: Normal flow voids are maintained at the skull base. Orbits: The bony orbits are grossly intact. Orbital contents are normal in appearance noting bilatera l ocular lens implants. Sinuses and mastoids: Clear. Calvarium: Unremarkable. Cervical cord: Partially visualized cervical spinal cord is normal in morphology and signal intensity . IMPRESSION: 1. There is a subcentimeter focus of restricted diffusion identified in the left carey consistent with an acute to subacute lacunar infarct. 2. No additional foci of acute ischemia are identified. 3. There is no hemorrhage or mass effect. 4. A small meningioma along the right convexity is unchanged from previous. Electronically signed by: Joey Patterson M.D. 02/05/2019 10:39 PM
--- NOTE | 2019-02-05 22:52 | Magnetic Resonance Report ---
MR ANGIOGRAM OF THE NECK COMBO CLINICAL HISTORY: Strokelike symptoms. COMPARISON STUDY: Carotid artery ultrasound dated 05/13/2015. TECHNIQUE: Axial 3-D [id number]-jynxsu MR angiography of the neck is performed. Subsequently, following the IV administration of 10 cc of Gadavist. Coronal MR angiogram of the neck was performed to corrobo rate the findings. 3-D reformats are created and assessed. All measurements were calculated based on NASCET criteria. FINDINGS: Visualized portions of the thoracic aorta are normal in caliber. The aortic arch demonstrat es standard 3-vessel anatomy. The subclavian arteries are widely patent bilaterally. The right common carotid artery is widely patent, as are the right internal and external carotid arteries. The left c ommon carotid artery is widely patent, as are the left internal and external carotid arteries. The ve rtebral arteries are widely patent. The right vertebral artery is dominant. The origin of the left ve rtebral artery is not well-visualized due to small caliber. The visualized intracranial vessels at th e skull base appear patent. IMPRESSION: Normal MR angiogram of the neck. Electronically signed by: Joey Patterson M.D. 02/05/2019 10:51 PM
[2019-02-05] MEDS: ASPIRIN 81 MG ECTAB PO SCH (23:07)
[2019-02-05] MEDS: GABAPENTIN 600 MG TAB PO SCH (23:07)
[2019-02-06 04:30] LABS: Estimated Average Glucose 166 mg/dl; Hemoglobin A1C 7.4 % (4.5-5.6)
[2019-02-06] MEDS: LACTATED RINGER'S 1,000 ML IV SCH (05:08)
[2019-02-06 06:14] LABS: Basophils # (auto) 0.01 K/uL (0-0.2); Basophils % (auto) 0.2 %; Eosinophils # (auto) 0.09 K/uL (0-0.5); Eosinophils % (auto) 1.9 %; Hematocrit (blood only) 39.4 % (37-47); Hemoglobin 12.5 g/dL (12.0-16.0); Immature Granulocytes # (auto) 0.01 K/uL (0.00-0.02); Immature Granulocytes % (auto) 0.2 %; Lymphocytes # (auto) 1.39 K/uL (1.2-3.4); Mean Corpuscular Hemoglobin 24.9 pg (25-34); Mean Corpuscular Hgb Conc 31.7 g/dL (32-36); Mean Corpuscular Volume 78.5 fL (80-100); Monocytes # (auto) 0.36 K/uL (0.11-0.59); Monocytes % (auto) 7.5 %; Neutrophils # (auto) 2.93 K/uL (1.4-6.5); Neutrophils % (auto) 61.2 %; Platelet Count 102 K/uL (130-400); RDW Coefficient of Variation 14.1 % (11.5-14.5); RDW Standard Deviation 39.3 fL (36.4-46.3); Red Blood Count 5.02 M/uL (4.2-5.4); White Blood Count 4.79 K/uL (4.8-10.8)
[2019-02-06 06:49] LABS: BUN Creatinine Ratio 19.4 (10-20); Calcium 9.1 mg/dl (8.5-10.1); Creatinine Clr Calc Pharmacy 51.4 ml/min; Est GFR (African American) 64.8; Est GFR (Non-African American) 55.9; Potassium 3.9 mmol/L (3.5-5.1)
[2019-02-06] MEDS: INSULIN ASPART 100 UNITS/ML 3 ML PEN SC SCH ×4 (09:24→21:46)
[2019-02-06] MEDS: INSULIN GLARGINE SOLOSTAR 100 UNITS/ML 3 ML PEN SC SCH ×2 (09:26→21:52)
[2019-02-06] MEDS: FLUTICASONE PROPIONATE NA SPR 16 GM BTL SCH ×2 (09:26→21:45)
[2019-02-06] MEDS: CLOPIDOGREL BISULFATE 75 MG TAB PO SCH (10:47)
--- NOTE | 2019-02-06 14:51 | Neurology Consultation ---
Date of Consultation February 06, 2019 Assessment & Plan (1) Left pontine stroke: Liv Charlton is a a78 yo woman w/ PMH of DM, HTN, CKD, frequent PVCs and PACs, and h/o right anterior temporal meningioma who presented to [facility] after acute onset of headache, generalized weakness, gait imbalance, diplopia, dysarthria and tongue numbness. CTH showed stable right anterior temporal meningioma, no hemorrhage or hypodensity, generalized atrophy and mild-moderate SVID. 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 MRI brain showed an acute infarct in the left par amedian carey, moderate SVID and mild generalized atrophy. 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 Ok to slowly restart home BP meds AM of 02/07. - Complete ischemic stroke workup with TSH - Consult speech, PT, OT for supportive management - Will pet adoption counselor concerning stroke education, smoking cessation, healthy diet, physical activity, weight loss - Follow up with PCP for assistance with outpatient goals (BP <135/85, LDL <70, A1c <7) - Follow up in neurology clinic in 6-8 weeks Secondary Stroke Prevention: - Antiplatelet: ASA 81mg po daily/plavix 75mg daily (after 300mg load x1) - Anticoagulation: Not indicated at this time - Statin: Atorvastatin 40mg daily HTN: - BP parameters, as above - Hold home BP meds (insert) for now in favor of permissive HTN - EKG and troponin pending FEN/GI: - Diet: NPO until cleared by Speech evaluation - Monitor lytes and replete PRN Glucose Control: - Sliding scale insulin and accuchecks per primary team to avoid hyperglycemia Thank you for this interesting consult. Plan of care was discussed with primary team. Please call or text with any questions. Present on Admission?: Yes (2) CKD (chronic kidney disease): Present on Admission?: Yes (3) Hypertension: Present on Admission?: Yes History of Present Illness Attending Physician: Kelly Lam MD Liv Charlton is a a78 yo woman w/ PMH of DM, HTN, CKD, frequent PVCs and PACs, and h/o right anterior temporal meningioma who presented to [facility] after acute onset of headache, generalized weakness, gait imbalance, diplopia, dysarthria and tongue numbness. 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 Checked her blood sugar which was 105. Ate some crackers and orange juice without improvement. When she woke up around 9:30am, she noticed that it was hard to get out of bed and she had poor balance, leading to a fall. She felt like she was leaning to the left. She also notes having diplopia, dysarthria and tongue numbness on the left side. In the ED, she was noted to be hypertensive to 167/94. CTH showed stable right anterior temporal meningioma, no hemorrhage or hypodensity, generalized atrophy and mild-moderate SVID. Labs showed leukopenia, normal hemoglobin with microcytosis, Plts 102, Cr 0.97, glucose 98, troponin elevated at 0.095, LDL 85, A1c 7.4. 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 MRI brain showed an acute infarct in the left paramedian carey, moderate SVID and mild generalized atrophy. She was admitted for a stroke workup. NIHSS 2 on examination today (dysarthria, sensory). She has baseline exotropia and eye movement abnormalities in her right eye ("since ") and has had diplopia before, but believes that her current diplopia is worse than usual. Feels generally weak overall but is able to move all extremities antigravity without drift. Has baseline neuropathy in BLEs. Allergies Allergy/AdvReac Type Severity Reaction Status Date / Time Bactrim Allergy Severe THROAT Verified 05/14/15 15:22 CLOSED meperidine Allergy Severe almost Unverified 02/05/19 14:59 "closed throat" midodrine Allergy Severe "almost Unverified 02/05/19 14:59 closed throat" Penicillins Allergy Severe ANAPHYLAXIS Unverified 02/05/19 14:59 Quinolones Allergy Severe TOLERATED Verified 02/05/19 14:59 LEVAQUIN IV - SEP 06 sulfamethoxazole Allergy Severe THROAT Verified 02/05/19 14:59 CLOSED trimethoprim Allergy Severe THROAT Verified 02/05/19 14:59 CLOSED diphenoxylate Allergy Intermediate Unknown Verified 02/05/19 14:59 glyburide Allergy Intermediate SEVERE Verified 02/05/19 14:59 ABDOMINAL PAIN metformin Allergy Intermediate SEVERE Verified 02/05/19 14:59 ABDOMINAL PAIN metronidazole [From Flagyl] Allergy Intermediate Hives Verified 02/05/19 14:59 nitrofurantoin Allergy Intermediate Unknown Verified 02/05/19 14:59 oxycodone Allergy Intermediate SEVERE Verified 02/05/19 14:59 WITHDRAWAL SYMPTOMS WHEN TRYING TO STOP TAKING ranitidine Allergy Intermediate Unknown Verified 02/05/19 14:59 repaglinide Allergy Intermediate Unknown Verified 02/05/19 14:59 rosiglitazone Allergy Intermediate Unknown Verified 02/05/19 14:59 DENILSON Inhibitors Allergy Unknown unknown to Unverified 02/05/19 14:59 pt atropine Allergy Unknown Unknown Verified 02/05/19 14:59 Histamine H2 Inhibitors Allergy Unknown unknown to Unverified 02/05/19 14:59 pt Iodinated Contrast Media Allergy Unknown JULY 2017 Verified 02/05/19 14:59 [facility] -- TOLERATED WITH SLOW INFUSION PER PATIENT phenazopyridine Allergy Unknown Unknown Verified 02/05/19 14:59 carvedilol Allergy Unknown Verified 02/05/19 14:59 carbamazepine AdvReac Severe Unknown Verified 02/05/19 14:59 valproic acid AdvReac Severe Unknown Verified 02/05/19 14:59 albuterol AdvReac Intermediate UNK Verified 02/05/19 14:59 olanzapine AdvReac Intermediate Unknown Verified 02/05/19 14:59 paroxetine AdvReac Intermediate DID NOT Verified 02/05/19 14:59 HELP rofecoxib AdvReac Intermediate Unknown Verified 02/05/19 14:59 temazepam AdvReac Intermediate DID NOT Verified 02/05/19 14:59 HELP diazepam AdvReac Mild SEDATION Verified 02/05/19 14:59 LASTING TOO LONG ibuprofen AdvReac Mild Unknown Verified 02/05/19 14:59 lisinopril AdvReac Mild UNK Verified 02/05/19 14:59 mirtazapine AdvReac Mild Unknown Verified 02/05/19 14:59 Home Medications Home Medications Medication Instructions Recorded Confirmed Type aspirin 81 mg tablet,delayed 162 mg PO QPM 09/19/18 02/05/19 History release insulin aspart (U-100) 100 unit/mL See Rx Instructions SQ BID 90 Days 09/19/18 02/05/19 Rx (3 mL) subcutaneous pen #15 ml nitroglycerin 0.4 mg sublingual 0.4 mg SL Q5M PRN 90 Days #30 tab 09/19/18 02/05/19 Rx tablet sodium chloride 0.65 % nasal spray 1 sprays INTNAS Q3H PRN 90 Days 09/19/18 02/05/19 Rx aerosol #30 ml fluticasone propionate 2 sprays INTNAS BID 10/29/18 02/05/19 History One-A-Day Women's 50 Plus 1 tab PO QAM 11/16/18 02/05/19 History PreserVision AREDS 1 tab PO BID 11/16/18 02/05/19 History escitalopram 20 mg tablet 20 mg PO QPM #30 tab 11/18/18 02/05/19 Rx gabapentin 600 mg tablet 600 mg PO TID 90 Days #270 tab 11/18/18 02/05/19 Rx azelastine 137 mcg (0.1 %) nasal 2 sprays INTNAS BID #30 ml 12/04/18 02/05/19 History spray aerosol propylene glycol 0.6 % eye drops 1 drops OP BID PRN 12/04/18 02/05/19 History cholecalciferol (vitamin D3) 5,000 5,000 units PO DAILY #30 cap 12/10/18 02/05/19 Rx unit capsule biotin 10,000 mcg capsule 0 mcg PO DAILY cap 12/23/18 02/05/19 History chlorhexidine gluconate 0.12 % 15 ml MUCOUS MEMBRANE BID #15 ml 01/07/19 02/05/19 Rx mouthwash metoprolol succinate ER 50 mg 50 mg PO HS #90 tab 01/27/19 02/05/19 Rx tablet,extended release 24 hr epinephrine 0.3 mg/0.3 mL 0.3 ml IM UD PRN #2 ea 01/28/19 02/05/19 Rx injection, auto-injector insulin glargine (U-100) 100 60 - 64 units SQ HS #3 ml 02/04/19 02/05/19 Rx unit/mL (3 mL) subcutaneous pen Patient History Medical History Meningioma Anxiety Arrhythmia "AN EXTRA HEARTBEAT" Breast cancer UNSURE WHICH SIDE WAS CANCER. Chronic back pain Chronic kidney disease MONITORING Chronic neck pain TO HAVE NECK SURGERY WITH DR AMANDA Roberts Diabetes mellitus, type 2 IDDM Difficult airway for intubation Dysphagia History of esophageal dilatation Hypertension Lymphedema of right arm CHRONIC Osteoarthritis Sleep apnea CPAP Uterine cancer RICHARD BSO Surgical History History of cardiac catheterization NO STENTS History of total abdominal hysterectomy BSO History of cataract surgery BILATERAL History of mastectomy BILATERAL History of knee surgery ARTHROSCOPY LEFT KNEE History of cholecystectomy History of colonoscopy History of esophagogastroduodenoscopy (EGD) Family History Mother Myocardial infarction Social History Preferred Language: Divehi Communication Ability: Effective Visual Impairment: Partially Limited Hearing Ability: Hard of Hearing 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 Beliefs That Will Affect Care: None marital status: / Current Living Situation: Alone current occupational status: retired Feels Safe at Home: Yes Smoking Status: Former smoker Tobacco Type: cigarettes ; Age Started Using Tobacco: 15 ; Age Quit Using Tobacco: 30 ; packs per day: 1 ; Second Hand Exposure: Yes ; Hx Alcohol Use: No Hx Substance Use: No Childhood Exposure to Second-Hand Smoke: No Dental Care, Regularly: Yes Physical Activity Frequency: Does not Exercise Seatbelt Use: always Sunscreen Use: Yes Review of Systems Review of Systems: 14 point review of systems completed and negative except as in HPI. Physical Exam Physical Exam: General Exam: GEN: NAD, sitting in chair in room with daughter HEENT: No conjunctival injection, no rhinorrhea, moist mucus membranes. CV: RRR on monitor, trace significant edema. PULM: Nonlabored respirations on room air. Neuro Exam: MS: Awake and Alert. Oriented to person, place, month and year but not date. Speech fluent and appropriate with mild dysarthria, no paraphasic errors. Language intact including naming, comprehension, repetition. Cognition intact, memory mildly impaired. Slightly inattentive. No neglect. CN: Visual fried full. No extinction to double simultaneous stimuli. Normal fundoscopic exam. PERRLA OU. Baseline exotropia in right eye. Unable to completely bury the sclera on left gaze in the right eye, associated left beating nystagmus. Decreased facial sensation in the left face. Facial muscles full and symmetric. Hearing intact to conversation. Uvula midline with symmetric palatal elevation. SCMs and shoulder shrug normal. Tongue midline. MOTOR: Normal bulk and tone. No pronator drift. BUE strength 5-/5 at deltoids, biceps, triceps, wrist flexors and extensors, and hand grasp. BLE strength 5-/5 at iliopsoas, hamstrings, quadriceps, tibialis anterior, and gastrocnemius bilaterally. REFLEXES: 1+ at biceps, triceps, brachioradialis, trace patella, and absent A chilles bilaterally. Flexor plantar responses bilaterally. SENSORY: Intact to LT/vibration/temperature throughout (reports less sensation on the LUE/LLE), no extinction to double simultaneous stimuli. COORDINATION: No dysmetria or ataxia on laxbut-ni-qzix bilaterally. Normal [place] bilaterally. GAIT: Deferred due to physical status. NIH STROKE SCALE 1A. Level of Consciousness (0-3) = 0 1B. LOC Questions (0-2) = 0 1C. LOC Commands (0-2) = 0 2. Best Horizontal Gaze (0-2) = 0 3. Visual Fried (0-3) = 0 4. Facial Palsy (0-3) = 0 5. Motor Arm Right (0-4) = 0 Left (0-4) = 0 6. Motor Leg Right (0-4) = 0 Left (0-4) = 0 7. Limb Ataxia (0-2) = 0 8. Sensory (0-2) = 1 9. Best Language (0-3) = 0 10. Dysarthria (0-2) = 1 11. Extinction and Inattention (0-2) = 0 NIHSS TOTAL = 2 Results & Data Vital Signs (Past 12 Hours) Vital Signs Temp Pulse Resp BP Pulse Ox 02/06/19 13:03 96 02/06/19 11:04 36.6 C 67 18 158/65 H 96 02/06/19 04:17 36.4 C L 76 20 151/80 H 94 Laboratory Results Abnormal lab results 02/05/19 02/05/19 02/05/19 Range/Units 13:26 20:18 20:40 WBC (4.8-10.8) K/uL MCV (80-100) fL MCH (25-34) pg MCHC (32-36) g/dL Plt Count (130-400) K/uL BUN (7-18) mg/dl POC Glucose 139 H (70-99) Hemoglobin A1c 7.4 H (4.5-5.6) % Troponin I 0.095 H* (0-0.045) ng/ml 02/06/19 02/06/19 02/06/19 Range/Units 04:19 05:55 05:55 WBC 4.79 L (4.8-10.8) K/uL MCV 78.5 L (80-100) fL MCH 24.9 L (25-34) pg MCHC 31.7 L (32-36) g/dL Plt Count 102 L (130-400) K/uL BUN 19 H (7-18) mg/dl POC Glucose 67 L* (70-99) Hemoglobin A1c (4.5-5.6) % Troponin I (0-0.045) ng/ml 02/06/19 02/06/19 Range/Units 11:03 11:32 WBC (4.8-10.8) K/uL MCV (80-100) fL MCH (25-34) pg MCHC (32-36) g/dL Plt Count (130-400) K/uL BUN (7-18) mg/dl POC Glucose 136 H 139 H (70-99) Hemoglobin A1c (4.5-5.6) % Troponin I (0-0.045) ng/ml PG Care Time/CCT Total # of Minutes Spent Total Time Spent with Patient: Total time spent is greater than 50% in coordination of care (as documented) at patient's floor/unit and/or counseling patient: (1) CKD (chronic kidney disease) Chronic kidney disease stage: unspecified stage Qualified Code(s): N18.9 - Chronic kidney disease, unspecified
--- NOTE | 2019-02-06 15:05 | Hospitalist Progress Note ---
Date of Service February 06, 2019 Assessment & Plan (1) Left pontine stroke: This patient is a 78-year-old female with history of diabetes, hypertension, CKD presenting with sudden onset of stabbing headache pains and numbness on the left side of body with right facial droop and weakness in b ilateral legs causing a fall on the ground. Upon admission, she has very mild rightward tongue deviation as well as diminished sensation to light touch on the left upper and lower extremity and diminished strength in the right upper extremity, mild dysarthria per son. Concern for TIA/right-sided CVA and she was admitted. TPA not initiated secondary to duration of symptoms. 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 Ok to slowly restart home BP meds AM of 02/07. - Complete ischemic stroke workup with TSH-TSH was normal in 08/2018 - Consult speech, PT, OT for supportive management - Will youth counselor concerning stroke education, smoking cessation, healthy diet, physical activity, weight loss - Follow up with PCP for assistance with outpatient goals (BP <135/85, LDL <70, A1c <7) - Follow up in neurology clinic in 6-8 weeks Secondary Stroke Prevention: - Antiplatelet: Continue ASA but change to 81mg po daily -plavix 75mg daily was ordered but patient has been refusing-she will now take this -Patient has a history of severe myalgias with atorvastatin she believes in the past-we will start pravastatin 40 mg daily-she also refused this to initially but now will try it (2) IDDM (insulin dependent diabetes mellitus): Patient with type 2 diabetes, insulin dependence, with peripheral neuropathy. Last hemoglobin A1c on 01/08/2019 = 7.6. At home, patient administered 60 to 64 units of Basaglar/insulin glargine nightly. She reports fairly frequent episodes of low blood sugar that occurred during the night. Is unable to provide further details as to how frequently and how low. Seen by nurse clay thrower here and recommends lowering basal dose of insulin at home to prevent morning hypoglycemia -Continue Lantus 25 units twice daily -Insulin sliding scale -We will monitor blood sugars every 4 hours while inpatient and hopefully gain a better understanding of patient's blood sugar patterns. -Carb consistent diet ordered (3) Hypertension: Blood pressure mildly elevated at present, 149/67. We will continue to hold metoprolol for now to allow for permissive hypertension but neurology recommends starting back tomorrow -Continue to monitor blood pressure (4) CKD (chronic kidney disease): Chronic kidney disease, stage 3 BUN and creatinine near baseline. Electrolytes favorable -Continue to monitor BUN, creatinine, electrolytes and urine output -Avoid nephrotoxic agents (5) Neuropathy: Chronic. Stable. Continue gabapentin 600 mg p.o. 3 times daily (6) Elevated troponin level: Patient with chronic elevation of troponin. Typically 0.05. Troponin today 0.107 and then down to 0.095 on repeat testing. She denies chest pain. EKG with no acute ischemic changes and no significant change from prior studies. Telemetry monitoring Echo ordered as part of stroke work-up shows no wall motion abnormalities (7) Morbid obesity: BMI 40.6 -Encouraged exercise, weight loss (8) DVT prophylaxis: ProphylaxisSCDs Codefull. Only 2 attempts per patient request and only if outcome is deemed to be favorable. Dispositioncontinued stay on PCU, may end up needing rehab placement Subjective Patient still feeling very lightheaded and dizzy when she stood up to try to walk today to the toilet with occupational therapy. She is still having double vision but that has been going on for 2 weeks. Feels her legs are stronger today. She is very anxious and upset about her diagnosis of stroke. Denies chest pain or shortness of breath, denies nausea or vomiting. She is tolerating p.o. but does have numbness of the tongue. I discussed the case with the neurologist Telemetry with normal sinus rhythm with rates in the 60s Review of Systems Review of Systems: All systems reviewed & are unremarkable except as noted in HPI & below (No urinary symptoms, no bowel issues) Physical Exam Constitutional: WD/WN, vitals as above + obese Eyes: PERRL, conjunctivae normal, anicteric sclerae + EOM not intact (Right eye with exotropia and unable to gaze completely to the left with the right eye) and no anisocoria ENMT: external ear and nose normal, oropharynx normal Neck: trachea midline, no thyromegaly Respiratory: normal respiratory effort, lungs clear to auscultation Cardiovascular: RRR, no murmur, no edema Gastrointestinal (Abdomen): normal bowel sounds, soft, nontender, no hepatosplenomegaly Musculoskeletal: Extremities: extremities normal to inspection; no cyanosis and no clubbing Skin: no rashes, warm and dry Neurologic: moves all extremities and awake; + CN's not intact (With decreased sensation throughout left side of face, with tongue protrusion to the right), + abnormal deep tendon reflexes (2+ in biceps triceps and brachioradialis, 1+ in patellar, absent Achilles bilaterally) and no focal motor deficits (5/5 strength throughout) Speech / Cognition: + abnormal speech (Mild dysarthria) Motor/Sensory: + tremor (With action of the left hand) and + sensory deficit (In left upper extremity and left lower extremity); no pronator drift Coordination: normal [id number] test, normal [id number] test and normal rapid alternating movements Psychiatric: A+Ox3, euthymic affect Results & Data Vital Signs (Past 12 Hours) Vital Signs Temp Pulse Resp BP Pulse Ox 02/06/19 13:03 96 02/06/19 11:04 36.6 C 67 18 158/65 H 96 02/06/19 04:17 36.4 C L 76 20 151/80 H 94 Laboratory Results 02/07/19 02/06/19 02/06/19 Range/Units 02:00 20:18 15:57 Sodium (136-145) mmol/L Potassium (3.5-5.1) mmol/L Chloride (98-107) mmol/L Carbon Dioxide (21-32) mmol/L Anion Gap (3-11) BUN (7-18) mg/dl Creatinine (0.6-1.2) mg/dl Est Cr Clr Drug Dosing ml/min Est GFR ( Amer) Est GFR (Non-Af Amer) BUN/Creatinine Ratio (10-20) Glucose (70-99) mg/dl POC Glucose 105 H 163 H 136 H (70-99) Calcium (8.5-10.1) mg/dl Triglycerides (0-150) mg/dl Cholesterol (0-200) mg/dl LDL Cholesterol, Calc mg/dl VLDL Cholesterol, Calc mg/dl HDL Cholesterol mg/dl Cholesterol/HDL Ratio 02/06/19 02/06/19 02/06/19 Range/Units 11:32 11:03 08:03 Sodium (136-145) mmol/L Potassium (3.5-5.1) mmol/L Chloride (98-107) mmol/L Carbon Dioxide (21-32) mmol/L Anion Gap (3-11) BUN (7-18) mg/dl Creatinine (0.6-1.2) mg/dl Est Cr Clr Drug Dosing ml/min Est GFR ( Amer) Est GFR (Non-Af Amer) BUN/Creatinine Ratio (10-20) Glucose (70-99) mg/dl POC Glucose 139 H 136 H 98 (70-99) Calcium (8.5-10.1) mg/dl Triglycerides (0-150) mg/dl Cholesterol (0-200) mg/dl LDL Cholesterol, Calc mg/dl VLDL Cholesterol, Calc mg/dl HDL Cholesterol mg/dl Cholesterol/HDL Ratio 02/06/19 Range/Units 05:55 Sodium 140 (136-145) mmol/L Potassium 3.9 (3.5-5.1) mmol/L Chloride 106 (98-107) mmol/L Carbon Dioxide 29 (21-32) mmol/L Anion Gap 5.0 (3-11) BUN 19 H (7-18) mg/dl Creatinine 0.97 D (0.6-1.2) mg/dl Est Cr Clr Drug Dosing 51.4 ml/min Est GFR ( Amer) 64.8 Est GFR (Non-Af Amer) 55.9 BUN/Creatinine Ratio 19.4 (10-20) Glucose 98 (70-99) mg/dl POC Glucose (70-99) Calcium 9.1 (8.5-10.1) mg/dl Triglycerides 135 (0-150) mg/dl Cholesterol 152 (0-200) mg/dl LDL Cholesterol, Calc 85 mg/dl VLDL Cholesterol, Calc 27 mg/dl HDL Cholesterol 40 mg/dl Cholesterol/HDL Ratio 4 PG Care Time/CCT Total # of Minutes Spent Total Time Spent with Patient: Total time spent is greater than 50% in coordination of care (as documented) at patient's floor/unit and/or counseling patient: (1) CKD (chronic kidney disease) Chronic kidney disease stage: unspecified stage Qualified Code(s): N18.9 - Chronic kidney disease, unspecified (2) Hypertension Hypertension type: essential hypertension Qualified Code(s): I10 - Essential (primary) hypertension
[2019-02-06] MEDS: GABAPENTIN 600 MG TAB PO SCH ×2 (16:55→23:36)
[2019-02-06] MEDS: PRAVASTATIN SOD 40 MG TAB PO SCH (16:55)
[2019-02-06] MEDS: ASPIRIN 81 MG ECTAB PO SCH (21:45)
[2019-02-06] MEDS: ESCITALOPRAM OXALATE 20 MG TAB PO SCH (21:46)
[2019-02-07 07:22] LABS: Hematocrit (blood only) 39.7 % (37-47); Hemoglobin 12.6 g/dL (12.0-16.0); Mean Corpuscular Hemoglobin 24.9 pg (25-34); Mean Corpuscular Hgb Conc 31.7 g/dL (32-36); Mean Corpuscular Volume 78.5 fL (80-100); RDW Coefficient of Variation 13.9 % (11.5-14.5); RDW Standard Deviation 38.8 fL (36.4-46.3); Red Blood Count 5.06 M/uL (4.2-5.4); White Blood Count 4.41 K/uL (4.8-10.8)
[2019-02-07 07:23] LABS: Mean Platelet Volume 9.1 fL (7.4-10.4); Platelet Count 95 K/uL (130-400)
[2019-02-07] MEDS: FLUTICASONE PROPIONATE NA SPR 16 GM BTL SCH ×2 (07:38→22:08)
[2019-02-07] MEDS: INSULIN ASPART 100 UNITS/ML 3 ML PEN SC SCH ×4 (07:39→22:10)
[2019-02-07] MEDS: INSULIN GLARGINE SOLOSTAR 100 UNITS/ML 3 ML PEN SC SCH ×2 (07:42→22:08)
[2019-02-07] MEDS: CLOPIDOGREL BISULFATE 75 MG TAB PO SCH (07:43)
[2019-02-07 07:46] LABS: Basophils # (auto) 0.02 K/uL (0-0.2); Basophils % (auto) 0.5 %; Eosinophils # (auto) 0.12 K/uL (0-0.5); Eosinophils % (auto) 2.7 %; Immature Granulocytes # (auto) 0.01 K/uL (0.00-0.02); Immature Granulocytes % (auto) 0.2 %; Lymphocytes # (auto) 1.19 K/uL (1.2-3.4); Monocytes # (auto) 0.37 K/uL (0.11-0.59); Monocytes % (auto) 8.4 %; Neutrophils % (auto) 61.2 %
[2019-02-07 07:57] LABS: BUN Creatinine Ratio 19.6 (10-20); Calcium 9.4 mg/dl (8.5-10.1); Creatinine Clr Calc Pharmacy 46.9 ml/min; Est GFR (African American) 58.2; Est GFR (Non-African American) 50.3; Potassium 3.8 mmol/L (3.5-5.1)
[2019-02-07] MEDS ORDERED: SODIUM CHLORIDE 0.9% 1000ML 1,000 ML IV SCH (09:00)
--- NOTE | 2019-02-07 09:06 | Hospitalist Progress Note ---
Date of Service February 07, 2019 Assessment & Plan (1) Left pontine stroke: This patient is a 78-year-old female with history of diabetes, hypertension, CKD presenting with sudden onset of stabbing headache pains and numbness on the left side of body with right facial droop and weakness in b ilateral legs causing a fall on the ground. Upon admission, she has very mild rightward tongue deviation as well as diminished sensation to light touch on the left upper and lower extremity and diminished strength in the right upper extremity, mild dysarthria per son. Concern for CVA and she was admitted. TPA not initiated secondary to duration of symptoms. 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 Having some stuttering-like symptoms which Neurology states can happen with a CVA in this location--> tend to be highly BP-dependent and needs high BPs -lie flat or near to flat -start IVFs if BPs drop < 140/90 -repeat imaging with Brain MRI (could do limited images with DWI,ADC, and T2 flare) only if stuttering/worsening neuro symptoms don't improve within 15-20 min of the above measures Neurology recommendations: -Continuous cardiac monitoring, will consider Holter monitor as outpatient if telemetry here unrevealing - Vitals, Neurochecks, NIHSS per unit routine - BP parameters: SBP CAP 220, hold home anti-hypertensives for permissive HTN, IV Labetalol/Hydralazine PRN. Will continue to hold Toprol from home - Consult speech, PT, OT for supportive management - Will elementary school counselor concerning stroke education, healthy diet, physical activity, weight loss - Follow up with PCP for assistance with outpatient goals (BP <135/85, LDL <70, A1c <7) - Follow up in neurology clinic in 6-8 weeks Secondary Stroke Prevention: - Antiplatelet: Continue ASA 81mg po daily -Started Plavix 75mg daily -Patient has a history of severe myalgias with atorvastatin she believes in the past- started pravastatin 40 mg daily (2) IDDM (insulin dependent diabetes mellitus): Patient with type 2 diabetes, insulin dependence, with peripheral neuropathy. Last hemoglobin A1c on 01/08/2019 = 7.6. At home, patient administered 60 to 64 units of Basaglar/insulin glargine nightly. She reports fairly frequent episodes of low blood sugar that occurred during the night. Is unable to provide further details as to how frequently and how low. Seen by nurse hospice educator here and recommends lowering basal dose of insulin at home to prevent morning hypoglycemia Still with lower AM glucose and hyperglycemia in the evenings -Change Lantus to 30 units qAM and 22 units qPM -Insulin sliding scale -continue to monitor blood sugars every 4 hours while inpatient and hopefully gain a better understanding of patient's blood sugar patterns. -Carb consistent diet ordered (3) Hypertension: Blood pressure remains elevated at present, but is desirable We will continue to hold metoprolol for now to allow for permissive hypertension -Continue to monitor blood pressure (4) CKD (chronic kidney disease): Chronic kidney disease, stage 3 BUN and creatinine near baseline. Electrolytes favorable -Continue to monitor BUN, creatinine, electrolytes and urine output -Avoid nephrotoxic agents (5) Neuropathy: Chronic. Stable. Continue gabapentin 600 mg p.o. 3 times daily (6) Elevated troponin level: Patient with chronic elevation of troponin. Typically 0.05. Troponin then went to 0.107 and then down to 0.095 on repeat testing. She denies chest pain. EKG with no acute ischemic changes and no significant change from prior studies. Telemetry monitoring Echo ordered as part of stroke work-up shows no wall motion abnormalities Likely secondary to acute CVA (7) Morbid obesity: BMI 40.6 -Encouraged exercise, weight loss (8) DVT prophylaxis: ProphylaxisSCDs Codefull. Only 2 attempts per patient request and only if outcome is deemed to be favorable. Dispositioncontinued stay on PCU, plan for rehab placement at [facility] when medically stable-not today given stuttering stroke symptoms Subjective Pt was seen this AM and had c/o worsening vision, describing her vision as "slower." Denies blind spots. Also felt like her speech was worse and had worsening LUE weakness and worsening left facial numbness. No headache but had some mild nausea after breakfast. Discussed her case with Neurology who recommended lying her flat and allowing BP to increase. Initially, lying flat made her get a lot of pressure in her head. SHe was then increased to about 15 degrees of the head of bed and the pressure resolved--> within 15 min, she was already feeling better with her speech improving. Tele with NSR rate 60s-70s Review of Systems Review of Systems: All systems reviewed & are unremarkable except as noted in HPI & below Physical Exam Constitutional: WD/WN, vitals as above + obese Eyes: PERRL, conjunctivae normal, anicteric sclerae + EOM not intact (Right eye with exotropia and unable to gaze completely to the left with the right eye) and no anisocoria Right eye exotropia ENMT: external ear and nose normal, oropharynx normal Neck: trachea midline, no thyromegaly Respiratory: normal respiratory effort, lungs clear to auscultation Cardiovascular: RRR, no murmur, no edema Gastrointestinal (Abdomen): normal bowel sounds, soft, nontender, no hepatosplenomegaly Musculoskeletal: Extremities: extremities normal to inspection; no cyanosis and no clubbing Skin: no rashes, warm and dry Neurologic: + focal motor deficit (4/5 in LUE, otherwise 5/5 throughout) and awake; + CN's not intact (With decreased sensation throughout left side of face, with tongue protrusion to the right) Speech / Cognition: + abnormal speech (Mild dysarthria which is worse from yesterday) Motor/Sensory: + tremor (With action of the left hand) and + sensory deficit (In left upper extremity and left lower extremity); no pronator drift Psychiatric: A+Ox3, euthymic affect Results & Data Vital Signs (Past 12 Hours) Vital Signs Temp Pulse Resp BP Pulse Ox 02/07/19 07:25 36.6 C 70 20 165/80 H 93 02/07/19 05:13 36.6 C 73 17 150/65 H 94 02/06/19 23:36 190/70 H 02/06/19 23:27 36.6 C 69 19 97 02/06/19 22:08 195/58 H 02/06/19 22:05 212/66 H Laboratory Results 02/07/19 02/07/19 02/07/19 Range/Units 20:20 16:23 11:29 WBC (4.8-10.8) K/uL RBC (4.2-5.4) M/uL Hgb (12.0-16.0) g/dL Hct (37-47) % MCV (80-100) fL MCH (25-34) pg MCHC (32-36) g/dL RDW Std Deviation (36.4-46.3) fL RDW Coeff of Tim (11.5-14.5) % Plt Count (130-400) K/uL MPV (7.4-10.4) fL Immature Gran % (Auto) % Neut % (Auto) % Lymph % (Auto) % Cocke % (Auto) % Eos % (Auto) % Baso % (Auto) % Immature Gran # (Auto) (0.00-0.02) K/uL Neut # (Auto) (1.4-6.5) K/uL Lymph # (Auto) (1.2-3.4) K/uL Cocke # (Auto) (0.11-0.59) K/uL Eos # (Auto) (0-0.5) K/uL Baso # (Auto) (0-0.2) K/uL Sodium (136-145) mmol/L Potassium (3.5-5.1) mmol/L Chloride (98-107) mmol/L Carbon Dioxide (21-32) mmol/L Anion Gap (3-11) BUN (7-18) mg/dl Creatinine (0.6-1.2) mg/dl Est Cr Clr Drug Dosing ml/min Est GFR ( Amer) Est GFR (Non-Af Amer) BUN/Creatinine Ratio (10-20) Glucose (70-99) mg/dl POC Glucose 193 H 110 H 176 H (70-99) Calcium (8.5-10.1) mg/dl 02/07/19 02/07/19 02/07/19 Range/Units 07:27 07:03 07:03 WBC 4.41 L (4.8-10.8) K/uL RBC 5.06 (4.2-5.4) M/uL Hgb 12.6 (12.0-16.0) g/dL Hct 39.7 (37-47) % MCV 78.5 L (80-100) fL MCH 24.9 L (25-34) pg MCHC 31.7 L (32-36) g/dL RDW Std Deviation 38.8 (36.4-46.3) fL RDW Coeff of Tim 13.9 (11.5-14.5) % Plt Count 95 L (130-400) K/uL MPV 9.1 (7.4-10.4) fL Immature Gran % (Auto) 0.2 % Neut % (Auto) 61.2 % Lymph % (Auto) 27.0 % Cocke % (Auto) 8.4 % Eos % (Auto) 2.7 % Baso % (Auto) 0.5 % Immature Gran # (Auto) 0.01 (0.00-0.02) K/uL Neut # (Auto) 2.70 (1.4-6.5) K/uL Lymph # (Auto) 1.19 L (1.2-3.4) K/uL Cocke # (Auto) 0.37 (0.11-0.59) K/uL Eos # (Auto) 0.12 (0-0.5) K/uL Baso # (Auto) 0.02 (0-0.2) K/uL Sodium 141 (136-145) mmol/L Potassium 3.8 (3.5-5.1) mmol/L Chloride 106 (98-107) mmol/L Carbon Dioxide 30 (21-32) mmol/L Anion Gap 6.0 (3-11) BUN 21 H (7-18) mg/dl Creatinine 1.06 (0.6-1.2) mg/dl Est Cr Clr Drug Dosing 46.9 ml/min Est GFR ( Amer) 58.2 Est GFR (Non-Af Amer) 50.3 BUN/Creatinine Ratio 19.6 (10-20) Glucose 105 H (70-99) mg/dl POC Glucose 101 H (70-99) Calcium 9.4 (8.5-10.1) mg/dl 02/07/19 Range/Units 02:00 WBC (4.8-10.8) K/uL RBC (4.2-5.4) M/uL Hgb (12.0-16.0) g/dL Hct (37-47) % MCV (80-100) fL MCH (25-34) pg MCHC (32-36) g/dL RDW Std Deviation (36.4-46.3) fL RDW Coeff of Tim (11.5-14.5) % Plt Count (130-400) K/uL MPV (7.4-10.4) fL Immature Gran % (Auto) % Neut % (Auto) % Lymph % (Auto) % Cocke % (Auto) % Eos % (Auto) % Baso % (Auto) % Immature Gran # (Auto) (0.00-0.02) K/uL Neut # (Auto) (1.4-6.5) K/uL Lymph # (Auto) (1.2-3.4) K/uL Cocke # (Auto) (0.11-0.59) K/uL Eos # (Auto) (0-0.5) K/uL Baso # (Auto) (0-0.2) K/uL Sodium (136-145) mmol/L Potassium (3.5-5.1) mmol/L Chloride (98-107) mmol/L Carbon Dioxide (21-32) mmol/L Anion Gap (3-11) BUN (7-18) mg/dl Creatinine (0.6-1.2) mg/dl Est Cr Clr Drug Dosing ml/min Est GFR ( Amer) Est GFR (Non-Af Amer) BUN/Creatinine Ratio (10-20) Glucose (70-99) mg/dl POC Glucose 105 H (70-99) Calcium (8.5-10.1) mg/dl PG Care Time/CCT Total # of Minutes Spent Total Time Spent with Patient: Total time spent is greater than 50% in coordination of care (as documented) at patient's floor/unit and/or counseling patient: (1) CKD (chronic kidney disease) Chronic kidney disease stage: unspecified stage Qualified Code(s): N18.9 - Chronic kidney disease, unspecified (2) Hypertension Hypertension type: essential hypertension Qualified Code(s): I10 - Essential (primary) hypertension
--- NOTE | 2019-02-07 17:05 | Neurology Progress Note ---
Date of Service February 07, 2019 Assessment & Plan (1) Left pontine stroke: Liv Charlton is a 78 yo woman w/ PMH of DM, HTN, CKD, frequent PVCs and PACs, and h/o right anterior temporal meningioma who presented to [facility] after acute onset of headache, generalized weakness, gait imbalance, diplopia, dysarthria and tongue numbness. CTH showed stable right anterior temporal meningioma, no hemorrhage or hypodensity, generalized atrophy and mild-moderate SVID. MRA H&N showed no LVO or aneurysm, ?high grade stenosis of the origin of the left vertebral artery versus not visualized well, no other high grade stenosis, and right [employer]. MRI brain showed an acute infarct in the left paramedian carey, moderate SVID and mild generalized atrophy. 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 Stroke WorkUp: - CT head: stable right anterior temporal meningioma, no hemorrhage or hypodensity, generalized atrophy and mild-moderate SVID - MRI brain: acute infarct in the left paramedian carey, moderate SVID and mild generalized atrophy - MRA head/neck: no LVO or aneurysm, ?high grade stenosis of the origin of the left vertebral artery versus not visualized well, no other high grade stenosis, and right [employer] - TTE: EF 65-70%, mild LVH, mild MR - Telemetry: pending - A1c: 7.4 - FLP: 85 - Troponin, TSH: elevated, pending Stroke Management: - Continuous cardiac monitoring, will consider Holter monitor as outpatient if telemetry here unrevealing - Vitals, Neurochecks, NIHSS per unit routine - BP parameters: SBP CAP 220, hold home anti-hypertensives for permissive HTN, IV Labetalol/Hydralazine PRN. Allow her to auto-titrate for adequate cerebral perfusion. - Complete ischemic stroke workup with TSH - Consult speech, PT, OT for supportive management - Counseled concerning stroke education, smoking cessation, healthy diet, physical activity, weight loss - Follow up with PCP for assistance with outpatient goals (BP <135/85, LDL <70, A1c <7) - Follow up in neurology clinic in 6-8 weeks - if recurrent episode of worsening neurological symptoms, would lower head of bed, allow blood pressure to self-regulate, IVFs. If no improvement within 20-30 minutes, would get stat CTH and repeat MRI brain urgently. Secondary Stroke Prevention: - Antiplatelet: ASA 81mg po daily/plavix 75mg daily - Anticoagulation: Not indicated at this time - Statin: Atorvastatin 40mg daily HTN: - BP parameters, as above - Hold home BP meds (insert) for now in favor of permissive HTN Glucose Control: - Sliding scale insulin and accuchecks per primary team to avoid hyperglycemia Thank you for this interesting consult. Plan of care was discussed with patient and her family. Please call or text with any questions. Subjective She had worsening of dysarthria this morning, as well as new left-sided weakness following breakfast. She also reports having one episode of emesis. Spoke with primary team and recommended that her blood pressure be allowed to auto titrate, put head of bed down to increase perfusion and start low rate of IV fluids. With these measures, she reports that her symptoms to get better. This afternoon, she still reports having some residual left upper extremity weakness. She also feels like her double vision is persisting and may be worse. Review of Systems Review of Systems: 14 point review of systems completed and negative except as in HPI. Physical Exam Physical Exam: General Exam: GEN: NAD, sitting in bed with daughter and sister HEENT: No conjunctival injection, no rhinorrhea, moist mucus membranes. CV: RRR on monitor, trace peripheral edema. PULM: Nonlabored respirations on room air. Neuro Exam: MS: Awake and Alert. Oriented to person, place, month and year but not date. Speech fluent and appropriate with mild dysarthria, no paraphasic errors. Language intact including naming, comprehension, repetition. Cognition intact, memory mildly impaired. Slightly inattentive. No neglect. CN: Visual archibald full. No extinction to double simultaneous stimuli. Normal fundoscopic exam. PERRLA OU. Baseline exotropia in right eye. Unable to completely bury the sclera on horizontal gaze in either direction. Decreased facial sensation in the left face. Facial muscles full and symmetric. Hearing intact to conversation. Uvula midline with symmetric palatal elevation. SCMs and shoulder shrug normal. Tongue midline. MOTOR: Normal bulk and tone. No pronator drift. BUE strength 5-/5 at deltoids, biceps, triceps, wrist flexors and extensors, and hand grasp. BLE strength 5-/5 at iliopsoas, hamstrings, quadriceps, tibialis anterior, and gastrocnemius bilaterally. REFLEXES: 1+ at biceps, triceps, brachioradialis, trace patella, and absent Achilles bilaterally. Flexor plantar responses bilaterally. SENSORY: Intact to LT/vibration/temperature throughout (reports less sensation on the LUE/LLE), no extinction to double simultaneous stimuli. COORDINATION: No dysmetria or ataxia on [id number] bilaterally. Normal Linwood bilaterally. GAIT: Deferred due to physical status. NIH STROKE SCALE 1A. Level of Consciousness (0-3) = 0 1B. LOC Questions (0-2) = 0 1C. LOC Commands (0-2) = 0 2. Best Horizontal Gaze (0-2) = 0 3. Visual Archibald (0-3) = 0 4. Facial Palsy (0-3) = 0 5. Motor Arm Right (0-4) = 0 Left (0-4) = 0 6. Motor Leg Right (0-4) = 0 Left (0-4) = 0 7. Limb Ataxia (0-2) = 0 8. Sensory (0-2) = 1 9. Best Language (0-3) = 0 10. Dysarthria (0-2) = 1 11. Extinction and Inattention (0-2) = 0 NIHSS TOTAL = 2 Results & Data Vital Signs (Past 12 Hours) Vital Signs Temp Pulse Pulse Resp BP Pulse Ox 02/07/19 16:36 36.6 C 69 18 128/72 95 02/07/19 12:52 36.5 C 88 17 180/72 H 98 02/07/19 08:15 69 02/07/19 07:25 36.6 C 70 20 165/80 H 93 02/07/19 05:13 36.6 C 73 17 150/65 H 94 PG Care Time/CCT Total # of Minutes Spent Total Time Spent with Patient: Total time spent is greater than 50% in coordination of care (as documented) at patient's floor/unit and/or counseling patient:
[2019-02-07] MEDS: GABAPENTIN 600 MG TAB PO SCH ×2 (17:20→22:11)
[2019-02-07] MEDS: PRAVASTATIN SOD 40 MG TAB PO SCH (17:20)
[2019-02-07] MEDS ORDERED: ASPIRIN 81 MG ECTAB PO SCH (21:00)
[2019-02-07] MEDS ORDERED: METOPROLOL SUCC 50MG EXT REL TAB PO SCH (21:00)
[2019-02-07] MEDS: ESCITALOPRAM OXALATE 20 MG TAB PO SCH (22:09)
[2019-02-08] MEDS: SODIUM CHLORIDE 0.9% 1000ML 1,000 ML IV SCH ×3 (08:20→21:31)
[2019-02-08] MEDS: FLUTICASONE PROPIONATE NA SPR 16 GM BTL SCH ×2 (08:27→20:48)
[2019-02-08] MEDS: CLOPIDOGREL BISULFATE 75 MG TAB PO SCH (08:57)
[2019-02-08] MEDS: INSULIN GLARGINE SOLOSTAR 100 UNITS/ML 3 ML PEN SC SCH ×2 (08:57→20:48)
[2019-02-08] MEDS: INSULIN ASPART 100 UNITS/ML 3 ML PEN SC SCH ×4 (08:58→20:50)
--- NOTE | 2019-02-08 09:44 | CT Scan Report ---
CT head/brain wo con CLINICAL HISTORY: Stroke with progressive neurological deficit. COMPARISON STUDY: CT scan of the head dated 02/05/2019, MRI the brain dated 02/05/2019 TECHNIQUE: Axial CT of the brain is performed from the vertex to the skull base. IV contrast was not administered for this examination. A dose lowering technique was utilized adhering to the principles of ALARA. CT DOSE: 614.27 mGy.cm FINDINGS: There is a 14 mm calcified extra-axial lesion at the level of the right sylvian fissure, consistent w ith a meningioma. There is a subtle left central pontine hypodensity, consistent with the patient's k nown recent infarct. There is no midline shift. There is no acute hemorrhage. No calvarial fractures are visualized. There are patchy white matter hypodensities likely on a small vessel basis. There is no evidence of pathologic ventricular dilatation. There is no evidence of acute sinusitis IMPRESSION: 1. Stable right convexity meningioma 2. Small left central pontine infarct 3. No evidence of acute hemorrhage Electronically signed by: Onel Fernández M.D. 02/08/2019 9:43 AM
--- NOTE | 2019-02-08 10:18 | Neurology Progress Note ---
Date of Service February 08, 2019 Assessment & Plan (1) Left pontine stroke: Liv Charlton is a 78 yo woman w/ PMH of DM, HTN, CKD, frequent PVCs and PACs, and h/o right anterior temporal meningioma who presented to [facility] after acute onset of headache, generalized weakness, gait imbalance, diplopia, dysarthria and tongue numbness. CTH showed stable right anterior temporal meningioma, no hemorrhage or hypodensity, generalized atrophy and mild-moderate SVID. MRA H&N showed no LVO or aneurysm, ?high grade stenosis of the origin of the left vertebral artery versus not visualized well, no other high grade stenosis, and right [employer]. MRI brain showed an acute infarct in the left paramedian carey, moderate SVID and mild generalized atrophy. 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 Stroke WorkUp: - CT head: stable right anterior temporal meningioma, no hemorrhage or hypodensity, generalized atrophy and mild-moderate SVID - MRI brain: acute infarct in the left paramedian carey, moderate SVID and mild generalized atrophy - MRA head/neck: no LVO or aneurysm, ?high grade stenosis of the origin of the left vertebral artery versus not visualized well, no other high grade stenosis, and right [employer] - TTE: EF 65-70%, mild LVH, mild MR - Telemetry: pending - A1c: 7.4 - FLP: 85 - Troponin, TSH: elevated, pending Stroke Management: - Continuous cardiac monitoring, will consider Holter monitor as outpatient if telemetry here unrevealing - Vitals, Neurochecks, NIHSS per unit routine - BP parameters: SBP CAP 220, hold home anti-hypertensives for permissive HTN, IV Labetalol/Hydralazine PRN. Allow her to auto-titrate for adequate cerebral perfusion. - Complete ischemic stroke workup with TSH - Consult speech, PT, OT for supportive management - Counseled concerning stroke education, smoking cessation, healthy diet, physical activity, weight loss - Follow up with PCP for assistance with outpatient goals (BP <135/85, LDL <70, A1c <7) - Follow up in neurology clinic in 6-8 weeks - if recurrent episode of worsening neurological symptoms, would lower head of bed, allow blood pressure to self-regulate, IVFs. If no improvement within 20-30 minutes, would get stat CTH and repeat MRI brain urgently. - fluctuating course of symptoms is common for stroke in this location (https://[email or web address]/journals/jamaneurology/fullarticle/780653), however, u sually resolves within a few days of onset. - recommend repeating MRI brain given left-sided extremity weakness would not fit with a left pontine infarct. She also has baseline neck issues that she reportedly was supposed to have surgery for in the next few weeks, but not clear if she has baseline weakness bilaterally or not (patient is a poor historian and sisters are not sure). - obtain orthostatics given both episodes of dizziness/nausea/generalized weakness have occurred after eating and then standing up. Given poorly controlled diabetes, she may also have a baseline level of autonomic dysfunction Secondary Stroke Prevention: - Antiplatelet: ASA 81mg po daily/plavix 75mg daily x 30 days, will then consider changing to just aspirin 81mg daily in the outpatient setting - Anticoagulation: Not indicated at this time - Statin: Atorvastatin 40mg daily HTN: - BP parameters, as above - Hold home BP meds (metoprolol) for now in favor of permissive HTN Glucose Control: - Sliding scale insulin and accuchecks per primary team to avoid hyperglycemia Thank you for this interesting consult. Plan of care was discussed with patient and her family. Please call or text with any questions. Subjective Had another episode of worsening dysarthria and dizziness this morning that did not respond as well to IVFs/head of bed down. Repeat CTH performed which does not show any hemorrhage, does show new hypodensity in left carey c/w known stroke on MRI brain. Interestingly, the stroke should be causing right-sided weakness (not left-sided which the patient is reporting). She reports that symptoms again happened after she ate breakfast and got up to use the bathroom. On examination about 1 hour after event, she reports that she is almost back to baseline. Does have ongoing diplopia, left tongue/facial numbness, but no more dizziness. Review of Systems Review of Systems: 14 point review of systems completed and negative except as in HPI. Physical Exam Physical Exam: General Exam: GEN: NAD, sitting in bed with 2 sisters nearby HEENT: No conjunctival injection, no rhinorrhea. CV: RRR on monitor, trace peripheral edema. PULM: Nonlabored respirations on room air. Neuro Exam: MS: Awake and Alert. Oriented to person, place, month and year but not date. Speech fluent and appropriate with mild dysarthria, no paraphasic errors. Language intact including naming, comprehension, repetition. Cognition intact, memory mildly impaired. Slightly inattentive. No neglect. CN: Visual archibald full. No extinction to double simultaneous stimuli. Normal fundoscopic exam. PERRLA OU. Baseline exotropia in right eye. Unable to completely bury the sclera on horizontal gaze in either direction. Decreased facial sensation in the left face. Facial muscles full and symmetric (slight left facial droop at rest but not appreciated when smiling). Hearing intact to conversation. Uvula midline with symmetric palatal elevation. Shoulder shrug normal. Tongue midline. MOTOR: Normal bulk and tone. No pronator drift. BUE strength 5-/5 at deltoids, biceps, triceps, wrist flexors and extensors, and hand grasp. BLE strength 5-/5 at iliopsoas, hamstrings, quadriceps, tibialis anterior, and gastrocnemius bilaterally. REFLEXES: 1+ at biceps, triceps, brachioradialis, trace patella, and absent Achilles bilaterally. Flexor plantar responses bilaterally. SENSORY: Intact to LT/temperature throughout (reports less sensation on the LUE/LLE), no extinction to double simultaneous stimuli. Decreased vibration in BLEs up to the knees (has baseline neuropathy). COORDINATION: No dysmetria or ataxia on [id number] bilaterally. Normal Linwood bilaterally. GAIT: Deferred due to physical status. NIH STROKE SCALE 1A. Level of Consciousness (0-3) = 0 1B. LOC Questions (0-2) = 0 1C. LOC Commands (0-2) = 0 2. Best Horizontal Gaze (0-2) = 0 3. Visual Archibald (0-3) = 0 4. Facial Palsy (0-3) = 0 5. Motor Arm Right (0-4) = 0 Left (0-4) = 0 6. Motor Leg Right (0-4) = 0 Left (0-4) = 0 7. Limb Ataxia (0-2) = 0 8. Sensory (0-2) = 1 9. Best Language (0-3) = 0 10. Dysarthria (0-2) = 1 11. Extinction and Inattention (0-2) = 0 NIHSS TOTAL = 2 Results & Data Vital Signs (Past 12 Hours) Vital Signs Temp Pulse Pulse Resp BP Pulse Ox 02/08/19 08:34 133/68 02/08/19 08:25 114/64 02/08/19 07:31 36.6 C 105 H 22 91/62 L 94 02/08/19 07:15 148/92 H 02/08/19 03:42 36.6 C 63 19 144/67 H 97 02/08/19 01:00 70 02/07/19 23:44 36.7 C 72 18 180/64 H 96 PG Care Time/CCT Total # of Minutes Spent Total Time Spent with Patient: Total time spent is greater than 50% in coordination of care (as documented) at patient's floor/unit and/or counseling patient:
--- NOTE | 2019-02-08 10:38 | Critical Care Consultation ---
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 In the ED, she was noted to be hypertensive to 167/94. CT Head showed a stable right anterior temporal meningioma consistent with past history, no hemorrhage or hypodensity, generalized atrophy and mild-moderate small vessel ischemic disease. MRI brain showed an acute infarct in the left paramedian carey, moderate small vessel ischemic disease and mild generalized atrophy. MRA head/neck: no aneurysm, possible high grade stenosis of the origin of the left vertebral artery that was not visualized well, no other high grade stenosis. Stroke was thought to be etiology of lacumar/lipohyalinosis. Reason Critically Ill: This morning she had an episode of worsening dysarthria and dizziness this morning that did not respond to IVFs or head of bed down. She was transferred to ICU for monitoring of stroke like symptoms. Neuro: Per recommendations from neuro consult reordered repeat MRI w/o - no change in findings from prior study 8 mm focus of restricted water diffusion within the left central carey consistent with acute/subacute infarct Secondary stroke prevention with Antiplatelet: ASA 81mg po daily/plavix 75mg daily and statin Monitor for return of symptoms, if symptoms return lay bed flat and IVFs, if no improvement in 20-[address] head and repeat MRI Allow for permissive HTN, hold HTN to allow permissive HTN Cardiac/Vascular PMHx: HTN, DM, PAC, PVC Echocardiogram TransThoracic: EF 65-70%, mild LVH, mild Mitral regurg Continue with Pravastatin 40mg PO Had 15 seconds of central sharp chest pain that resolved while resting in bed; ordered ECG without signs of ischemia or acute WI Cardiac and hemodynamic montoring Obtain orthostatics Pulm: Currently oxygenating well on RA, monitor SpO2 CPAP qHS for [facility] GI: Diet carb consistent DM 2 Renal/Lytes: Hx CKD Continue with IVF NS @ 150ml/hr Trend lytes and replace as indicated : Mc[place] None Endo: DM insulin dependent continue with Glargine 30units qAM; 22units qPM ICU Hyperglycemia protocol Heme: stable annie, no current issues ID: No signs or sources for infection Lines: peripheral IV DVT: SCDs Resuscitation status: Conditional Code - code may be attempted only twice. (2) Left pontine stroke: (3) Weakness: (4) DVT prophylaxis: (5) Hypertension: (6) Morbid obesity: (7) IDDM (insulin dependent diabetes mellitus): (8) Neuropathy: (9) History of benign brain tumor: (10) History of cardiac catheterization: (11) History of total abdominal hysterectomy: (12) History of cataract surgery: (13) History of mastectomy: Supervising Physician Co-Signing Physician Notes Dr. Madrigal was resident physician during care of patient. I separately evaluated patient for chiu portions of the history and the exam. I was present during the critical portion of medical decision making, and I discussed the case with the resident. I generally agree with the findings and plan. Recent CVA, this episode most likely represents some aspects of dysautonomia secondary to recent stroke. Emergent CT head to rule out hemorrhagic transformation, anticipate as this is 72 hours post infarct highest point of cytotoxic edema, will transfer to ICU in case vasoactive medication as needed to maintain cerebral perfusion pressure through penumbra of stroke. Patient is critically ill. 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 In the ED, she was noted to be hypertensive to 167/94. CT Head showed a stable right anterior temporal meningioma consistent with past history, no hemorrhage or hypodensity, generalized atrophy and mild-moderate small vessel ischemic disease. MRI brain showed an acute infarct in the left paramedian carey, moderate small vessel ischemic disease and mild generalized atrophy. MRA head/neck: no aneurysm, possible high grade stenosis of the origin of the left vertebral artery that was not visualized well, no other high grade stenosis. Stroke was thought to be etiology of lacumar/lipohyalinosis. This morning she had an episode of worsening dysarthria and dizziness this morning that did not respond to IVFs or head of bed down. She was transferred to ICU for monitoring of stroke like symptoms. Allergies Allergy/AdvReac Type Severity Reaction Status Date / Time Bactrim Allergy Severe THROAT Verified 05/14/15 15:22 CLOSED meperidine Allergy Severe almost Unverified 02/05/19 14:59 "closed throat" midodrine Allergy Severe "almost Unverified 02/05/19 14:59 closed throat" Penicillins Allergy Severe ANAPHYLAXIS Unverified 02/05/19 14:59 Quinolones Allergy Severe TOLERATED Verified 02/05/19 14:59 LEVAQUIN IV - SEP 06 sulfamethoxazole Allergy Severe THROAT Verified 02/05/19 14:59 CLOSED trimethoprim Allergy Severe THROAT Verified 02/05/19 14:59 CLOSED diphenoxylate Allergy Intermediate Unknown Verified 02/05/19 14:59 glyburide Allergy Intermediate SEVERE Verified 02/05/19 14:59 ABDOMINAL PAIN metformin Allergy Intermediate SEVERE Verified 02/05/19 14:59 ABDOMINAL PAIN metronidazole [From Flagyl] Allergy Intermediate Hives Verified 02/05/19 14:59 nitrofurantoin Allergy Intermediate Unknown Verified 02/05/19 14:59 oxycodone Allergy Intermediate SEVERE Verified 02/05/19 14:59 WITHDRAWAL SYMPTOMS WHEN TRYING TO STOP TAKING ranitidine Allergy Intermediate Unknown Verified 02/05/19 14:59 repaglinide Allergy Intermediate Unknown Verified 02/05/19 14:59 rosiglitazone Allergy Intermediate Unknown Verified 02/05/19 14:59 DENILSON Inhibitors Allergy Unknown unknown to Unverified 02/05/19 14:59 pt atropine Allergy Unknown Unknown Verified 02/05/19 14:59 Histamine H2 Inhibitors Allergy Unknown unknown to Unverified 02/05/19 14:59 pt Iodinated Contrast Media Allergy Unknown JULY 2017 Verified 02/05/19 14:59 [facility] -- TOLERATED WITH SLOW INFUSION PER PATIENT phenazopyridine Allergy Unknown Unknown Verified 02/05/19 14:59 carvedilol Allergy Unknown Verified 02/05/19 14:59 clonazepam [From Klonopin] Allergy Unknown Verified 02/08/19 10:26 doxycycline Allergy Unknown Verified 02/08/19 10:26 furosemide [From Lasix] Allergy Unknown Verified 02/08/19 10:26 tolterodine [From Detrol] Allergy Unknown Verified 02/08/19 10:26 carbamazepine AdvReac Severe Unknown Verified 02/05/19 14:59 valproic acid AdvReac Severe Unknown Verified 02/05/19 14:59 albuterol AdvReac Intermediate UNK Verified 02/05/19 14:59 olanzapine AdvReac Intermediate Unknown Verified 02/05/19 14:59 paroxetine AdvReac Intermediate DID NOT Verified 02/05/19 14:59 HELP rofecoxib AdvReac Intermediate Unknown Verified 02/05/19 14:59 temazepam AdvReac Intermediate DID NOT Verified 02/05/19 14:59 HELP diazepam AdvReac Mild SEDATION Verified 02/05/19 14:59 LASTING TOO LONG ibuprofen AdvReac Mild Unknown Verified 02/05/19 14:59 lisinopril AdvReac Mild UNK Verified 02/05/19 14:59 mirtazapine AdvReac Mild Unknown Verified 02/05/19 14:59 Home Medications Home Medications Medication Instructions Recorded Confirmed Type aspirin 81 mg tablet,delayed 162 mg PO QPM 09/19/18 02/05/19 History release insulin aspart (U-100) 100 unit/mL See Rx Instructions SQ BID 90 Days 09/19/18 02/05/19 Rx (3 mL) subcutaneous pen #15 ml nitroglycerin 0.4 mg sublingual 0.4 mg SL Q5M PRN 90 Days #30 tab 09/19/18 02/05/19 Rx tablet sodium chloride 0.65 % nasal spray 1 sprays INTNAS Q3H PRN 90 Days 09/19/18 02/05/19 Rx aerosol #30 ml fluticasone propionate 2 sprays INTNAS BID 10/29/18 02/05/19 History One-A-Day Women's 50 Plus 1 tab PO QAM 11/16/18 02/05/19 History PreserVision AREDS 1 tab PO BID 11/16/18 02/05/19 History escitalopram 20 mg tablet 20 mg PO QPM #30 tab 11/18/18 02/05/19 Rx gabapentin 600 mg tablet 600 mg PO TID 90 Days #270 tab 11/18/18 02/05/19 Rx azelastine 137 mcg (0.1 %) nasal 2 sprays INTNAS BID #30 ml 12/04/18 02/05/19 History spray aerosol propylene glycol 0.6 % eye drops 1 drops OP BID PRN 12/04/18 02/05/19 History cholecalciferol (vitamin D3) 5,000 5,000 units PO DAILY #30 cap 12/10/18 02/05/19 Rx unit capsule biotin 10,000 mcg capsule 0 mcg PO DAILY cap 12/23/18 02/05/19 History chlorhexidine gluconate 0.12 % 15 ml MUCOUS MEMBRANE BID #15 ml 01/07/19 02/05/19 Rx mouthwash metoprolol succinate ER 50 mg 50 mg PO HS #90 tab 01/27/19 02/05/19 Rx tablet,extended release 24 hr epinephrine 0.3 mg/0.3 mL 0.3 ml IM UD PRN #2 ea 01/28/19 02/05/19 Rx injection, auto-injector insulin glargine (U-100) 100 60 - 64 units SQ HS #3 ml 02/04/19 02/05/19 Rx unit/mL (3 mL) subcutaneous pen Patient History Medical History Meningioma Anxiety Arrhythmia "AN EXTRA HEARTBEAT" Breast cancer UNSURE WHICH SIDE WAS CANCER. Chronic back pain Chronic kidney disease MONITORING Chronic neck pain TO HAVE NECK SURGERY WITH DR PATEL Depression Diabetes mellitus, type 2 IDDM Difficult airway for intubation Dysphagia History of esophageal dilatation Hypertension Lymphedema of right arm CHRONIC Osteoarthritis Sleep apnea CPAP Uterine cancer RICHARD BSO Surgical History History of cardiac catheterization NO STENTS History of total abdominal hysterectomy BSO History of cataract surgery BILATERAL History of mastectomy BILATERAL History of knee surgery ARTHROSCOPY LEFT KNEE History of cholecystectomy History of colonoscopy History of esophagogastroduodenoscopy (EGD) Family History Mother Myocardial infarction Social History Preferred Language: Grenadian Communication Ability: Effective Visual Impairment: Partially Limited Hearing Ability: Hard of Hearing 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 Beliefs That Will Affect Care: None marital status: / Current Living Situation: Alone current occupational status: retired Feels Safe at Home: Yes Smoking Status: Former smoker Tobacco Type: cigarettes ; Age Started Using Tobacco: 15 ; Age Quit Using Tobacco: 30 ; packs per day: 1 ; Second Hand Exposure: Yes ; Hx Alcohol Use: No Hx Substance Use: No Childhood Exposure to Second-Hand Smoke: No Dental Care, Regularly: Yes Physical Activity Frequency: Does not Exercise Seatbelt Use: always Sunscreen Use: Yes Review of Systems Review of Systems: All systems reviewed & are unremarkable except as noted in HPI & below Constitutional: no fever and no chills Eyes: + diplopia; no eye pain Ear, Nose, Mouth, Throat: no ear pain and no epistaxis Respiratory: no dyspnea and no pain on inspiration Cardiovascular: + chest pain (15 seconds of chest pain while at bedside that resolved, described as sharp); no radiating jaw, neck or arm pain Gastrointestinal: no abdominal pain and no vomiting Musculoskeletal: + neck pain Integumentary: no rash and no lesions Neurologic: + numbness (left tongue/facial) and + dizziness (this morning, now resolved) Psychiatric: + anxiety Physical Exam Constitutional: + obese, cooperative and comfortable; no acute distress Eyes: PERRL exotropia of right eye - chronic ENMT: external ear and nose normal, oropharynx normal Neck: normal visual inspection and trachea midline Respiratory: normal respiratory effort, lungs clear to auscultation Cardiovascular: Rate/Rhythm: regular rate and regular rhythm Gastrointestinal (Abdomen): Percussion/Palpation: abdomen soft; abdomen nontender, no guarding and abdomen not rigid Musculoskeletal: Head/Neck/Chest: normocephalic and head atraumatic Skin: no rashes, warm and dry Neurologic: moves all extremities and awake; no focal motor deficits and not confused Cranial Nerves: PERRL, normal facial strength, tongue midline, able to elevate shoulders bilaterally and symmetric palate elevation Psychiatric: Orientation: alert and oriented x 3 Affect: + anxious affect Results & Data Vital Signs (Past 12 Hours) Vital Signs Temp Pulse Pulse Resp BP Pulse Ox 02/08/19 08:34 133/68 02/08/19 08:25 114/64 02/08/19 08:00 64 02/08/19 07:31 36.6 C 105 H 22 91/62 L 94 02/08/19 07:15 148/92 H 02/08/19 03:42 36.6 C 63 19 144/67 H 97 02/08/19 01:00 70 02/07/19 23:44 36.7 C 72 18 180/64 H 96 Laboratory Results Laboratory Results - last 24 hr 02/07/19 02/07/19 02/08/19 16:23 20:20 04:18 POC Glucose 110 H 193 H 112 H 02/08/19 02/08/19 07:33 12:24 POC Glucose 126 H 164 H Medications Administered Clopidogrel Bisulfate (Plavix) 75 mg PO QAM SHARMILA Stop: 03/07/19 15:49 Last Admin: 02/08/19 08:57 Dose: 75 mg Documented by: [id number] Admin: 02/07/19 07:43 Dose: 75 mg Documented by: [id number] Admin: 02/06/19 10:47 Dose: Not Given Documented by: [id number] Admin: 02/05/19 18:28 Dose: Not Given Documented by: [id number] Escitalopram Oxalate (Lexapro Tab) 20 mg PO QPM [facility] Stop: 03/07/19 20:59 Last Admin: 02/07/19 22:09 Dose: 20 mg Documented by: [id number] Admin: 02/06/19 21:46 Dose: 20 mg Documented by: [id number] Admin: 02/05/19 20:26 Dose: 20 mg Documented by: [id number] Fluticasone Propionate (Flonase) 2 sprays NA BID [facility] Stop: 03/07/19 20:59 Last Admin: 02/08/19 08:27 Dose: 2 sprays Documented by: [id number] Admin: 02/07/19 22:08 Dose: 2 sprays Documented by: [id number] Admin: 02/07/19 07:38 Dose: 2 sprays Documented by: [id number] Admin: 02/06/19 21:45 Dose: 2 sprays Documented by: [id number] Admin: 02/06/19 09:26 Dose: 2 sprays Documented by: [id number] Admin: 02/05/19 20:26 Dose: 2 sprays Documented by: [id number] Gabapentin (Neurontin) 600 mg PO BID@1800,0000 [facility] Stop: 03/08/19 00:00 Last Admin: 02/07/19 22:11 Dose: 600 mg Documented by: [id number] Admin: 02/07/19 17:20 Dose: 600 mg Documented by: [id number] Admin: 02/06/19 23:36 Dose: 600 mg Documented by: [id number] Admin: 02/06/19 16:55 Dose: 600 mg Documented by: [id number] Admin: 02/05/19 23:07 Dose: 600 mg Documented by: [id number] Gadobutrol (Gadavist 65ml) 10 ml IV ONCE PRN PRN Reason: Interaction Checking Stop: 02/09/19 22:11 Last Admin: 02/05/19 22:13 Dose: 10 ml Documented by: [id number] Sodium Chloride (Nss 1000ml) 1,000 mls @ 150 mls/hr IV .Q6H40M SHARMILA Stop: 03/10/19 07:59 Last Admin: 02/08/19 08:20 Dose: 150 mls/hr Documented by: [id number] Insulin Aspart (Novolog Flexpen) 0 units SC ACHS [facility] Stop: 03/07/19 17:14 Last Admin: 02/08/19 12:57 Dose: 6 units Documented by: [id number] Cosigned by: [id number] Admin: 02/08/19 08:58 Dose: 5 units Documented by: [id number] Cosigned by: [id number] Admin: 02/07/19 22:10 Dose: 3 units Documented by: [id number] Cosigned by: [id number] Admin: 02/07/19 17:22 Dose: 9 units Documented by: [id number] Cosigned by: [id number] Admin: 02/07/19 12:53 Dose: 6 units Documented by: [id number] Cosigned by: [id number] Admin: 02/07/19 07:39 Dose: 7 units Documented by: [id number] Cosigned by: [id number] Admin: 02/06/19 21:46 Dose: 1 units Documented by: [id number] Cosigned by: [id number] Admin: 02/06/19 16:54 Dose: 9 units Documented by: [id number] Cosigned by: [id number] Admin: 02/06/19 13:56 Dose: 5 units Documented by: [id number] Cosigned by: [id number] Admin: 02/06/19 09:24 Dose: Not Given Documented by: [id number] Cosigned by: [id number] Admin: 02/05/19 20:26 Dose: Not Given Documented by: [id number] Cosigned by: [id number] Admin: 02/05/19 18:23 Dose: 4 units Documented by: [id number] Cosigned by: [id number] Insulin Glargine (Lantus Solostar Pen) 30 units SC QAM [facility] Stop: 03/10/19 08:59 Last Admin: 02/08/19 08:57 Dose: 30 units Documented by: [id number] Cosigned by: [id number] Miscellaneous (Order Awaiting Action) 1 ea N/A QS [facility] Stop: 03/08/19 00:00 Last Admin: 02/08/19 08:26 Dose: Not Given Documented by: [id number] Admin: 02/08/19 01:14 Dose: Not Given Documented by: [id number] Admin: 02/07/19 17:07 Dose: Not Given Documented by: [id number] Admin: 02/07/19 07:37 Dose: Not Given Documented by: [id number] Admin: 02/06/19 23:36 Dose: Not Given Documented by: [id number] Admin: 02/06/19 15:41 Dose: Not Given Documented by: [id number] Admin: 02/06/19 09:26 Dose: Not Given Documented by: [id number] Admin: 02/05/19 23:07 Dose: Not Given Documented by: [id number] Miscellaneous (Carbohydrates For Hypoglycemia) 15 - 30 gm PO UD PRN PRN Reason: Hypoglycemia Protocol Stop: 03/07/19 17:14 Last Admin: 02/06/19 04:21 Dose: 15 gm Documented by: [id number] Pravastatin Sodium (Pravachol) 40 mg PO DAILY@1700 [facility] Stop: 03/07/19 17:14 Last Admin: 02/07/19 17:20 Dose: 40 mg Documented by: [id number] Admin: 02/06/19 16:55 Dose: 40 mg Documented by: [id number] Admin: 02/05/19 18:40 Dose: Not Given Documented by: [id number] PG Care Time/CCT Total # of Minutes Spent Total Time Spent with Patient: Total time spent is greater than 50% in coordination of care (as documented) at patient's floor/unit and/or counseling patient: Critical Care Time: Yes Total Critical Care Time: 45 I have personally spent 45 minutes of critical care time in the direct management of this patient. This is a life/limb threatening event. This includes time spent evaluating patient, direct bedside care, chart review, placing orders, interpretation of diagnostic studies, discussion with consultants, patient, and/or family members regarding treatment decisions, as well as other required patient management activities. This time is exclusive of all separately billable procedures, and teaching time and separate from and in addition to any other critical care service time. Resident Activity Tracking Resident Involvement: Resident Care Provided Care Provided: Adult Hospital Medicine (ICU) (1) Hypertension Hypertension type: unspecified Qualified Code(s): I10 - Essential (primary) hypertension
[2019-02-08] MEDS ORDERED: THIAMINE HCL 500 MG in SYRINGE 9 ML IV STA (11:08)
--- NOTE | 2019-02-08 12:02 | Magnetic Resonance Report ---
MRI OF THE BRAIN WITHOUT CONTRAST CLINICAL HISTORY: Left sided weakness HEADACHE. DIFFICULTY AMBULATING. HISTORY OF BREAST AND UTERINE CARCINOMA. COMPARISON STUDY: MRI the brain dated 02/05/2019, head CT dated 02/08/2019 FINDINGS: Sagittal T1, axial diffusion, proton density and T2 weighted axial, coronal FLAIR, and axial T1-weigh cindi images were acquired. There is a 13 mm right convexity extra-axial mass consistent with a meningioma. There is an 8 mm focus of restricted water diffusion within the left central carey consistent with acu te/subacute infarct. This is equivocally more prominent on the preceding study. There are no new area s of restricted water diffusion. There is mild ventricular prominence likely secondary to volume loss. Proton density T2-weighted and FLAIR images reveal scattered foci of increased T2 signal within the w fan matter, likely on a small vessel basis. There are no abnormal flow voids. There is a partially empty sella IMPRESSION: 1. 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 8 mm focus of restricted water diffusion within the left central caery consistent with acute/subacu te infarct Electronically signed by: Onel Fernández M.D. 02/08/2019 12:01 PM
[2019-02-08] MEDS: ASPIRIN 81 MG ECTAB PO SCH (17:43)
[2019-02-08] MEDS: PRAVASTATIN SOD 40 MG TAB PO SCH (17:45)
[2019-02-08] MEDS: GABAPENTIN 600 MG TAB PO SCH ×2 (17:45→23:03)
--- NOTE | 2019-02-08 19:40 | Hospitalist Progress Note ---
Date of Service February 08, 2019 Assessment & Plan (1) Left pontine stroke: This patient is a 78-year-old female with history of diabetes, hypertension, CKD presenting with sudden onset of stabbing headache pains and numbness on the left side of body with right facial droop and weakness in b ilateral legs causing a fall on the ground. Upon admission, she has very mild rightward tongue deviation as well as diminished sensation to light touch on the left upper and lower extremity and diminished strength in the right upper extremity, mild dysarthria per son. Concern for CVA and she was admitted. TPA not initiated secondary to duration of symptoms. She also had diplopia x2 weeks prior to stroke symptoms MRI confirms left pontine paramedian subacute to acute lacunar infarct MRA head and neck negative Echocardiogram without PFO and without thrombus Telemetry continues with normal sinus rhythm Has risk factors of diabetes, hypertension, previous [id number] smoker Neurology seen and thinks etiology of stroke is most likely lacunar/lipohyalinosis Continues to be having some stuttering-like symptoms-much worse when blood pressure dropped into the 90 systolic on the morning of 02/08 Having autonomic disequilibrium with labile blood pressures Her symptoms are largely dependent on her blood pressure On 02/08, she was focally weak throughout both sides as well as significantly worsened dysarthria and continued diplopia Repeat CT of the head without hemorrhage, repeat MRI in 02/08 of the brain shows persistent 8 mm left paramedian carey subacute to acute infarct unchanged from previous Symptoms improved again with brain blood pressure up closer to the 160s if in 170s systolic Neurology states that strokes in this location tend to be highly BP-dependent and needs high BPs -lie flat or near to flat when has worsening symptoms -started IVFs to keep blood pressure greater than 140/90 -Hopeful that is more time passes from the time of the stroke, that her autonomic disequilibrium will improve Neurology recommendations: -Continuous cardiac monitoring, will consider Holter monitor as outpatient if telemetry here unrevealing - Vitals, Neurochecks, NIHSS per unit routine - BP parameters: SBP CAP 220, hold home anti-hypertensives for permissive HTN, IV Labetalol/Hydralazine PRN. Will continue to hold Toprol from home - Consult speech, PT, OT for supportive management - Will academic counselor concerning stroke education, healthy diet, physical activity, weight loss - Follow up with PCP for assistance with outpatient goals (BP <135/85, LDL <70, A1c <7) - Follow up in neurology clinic in 6-8 weeks Secondary Stroke Prevention: - Antiplatelet: Continue ASA 81mg po daily -Started Plavix 75mg daily x30 days and then likely will go to just aspirin 81 mg daily after that-to be determined as outpatient by neurology -Patient has a history of severe myalgias with atorvastatin she believes in the past- started pravastatin 40 mg daily (2) IDDM (insulin dependent diabetes mellitus): Patient with type 2 diabetes, insulin dependence, with peripheral neuropathy. Last hemoglobin A1c on 01/08/2019 = 7.6. At home, patient administered 60 to 64 units of Basaglar/insulin glargine nightly. She reports fairly frequent episodes of low blood sugar that occurred during the night. Is unable to provide further details as to how frequently and how low. Seen by nurse nuclear pharmacist here and recommends lowering basal dose of insulin at home to prevent morning hypoglycemia Was having lower AM glucose and hyperglycemia in the evenings which is now improved with changing dosing of Lantus -Continue to change dose of Lantus 30 units qAM and 22 units qPM -Insulin sliding scale -continue Accu-Cheks -ADA diet (3) Hypertension: Blood pressure remains elevated at present, but is desirable We will continue to hold metoprolol for now to allow for permissive hypertension -Continue to monitor blood pressure (4) CKD (chronic kidney disease): Chronic kidney disease, stage 3 BUN and creatinine near baseline. Electrolytes favorable -Continue to monitor BUN, creatinine, electrolytes and urine output -Avoid nephrotoxic agents (5) Neuropathy: Chronic. Stable. Continue gabapentin 600 mg p.o. 3 times daily (6) Elevated troponin level: Patient with chronic elevation of troponin. Typically 0.05. Troponin then went to 0.107 and then down to 0.095 on repeat testing. She denies chest pain. EKG with no acute ischemic changes and no significant change from prior studies. Telemetry monitoring Echo ordered as part of stroke work-up shows no wall motion abnormalities Likely secondary to acute CVA (7) Morbid obesity: BMI 40.6 -Encouraged exercise, weight loss (8) Anxiety: Stable but exacerbated somewhat by acute medical condition -Continue escitalopram 20 mg daily (9) DVT prophylaxis: ProphylaxisSCDs Codefull. Only 2 attempts per patient request and only if outcome is deemed to be favorable. Dispositiontransferred to ICU for closer blood pressure monitoring Plan for rehab placement at [facility] when medically stable-not today given stuttering stroke symptoms Subjective Patient was seen early this morning after the nurse called saying that her neurological symptoms were much worse. Her speech was more slurred and she was feeling weak all over. Her blood pressure was done in the mid 90s systolic which is quite low for her. The patient denied headache but reported some nausea. She reported weakness in bilateral upper extremities and lower extremities. She was anxious. She continues to have double vision. She was given IV fluids and placed in a flat position and after 20 minutes her symptoms did not resolve. She was then sent for a CT scan of the head and later repeat brain MRI which showed no change from previous and no hemorrhage. I transferred it down to the ICU for closer monitoring of her blood pressure after discussion with the photo colorer. Telemetry with normal sinus rhythm with rates in the 70s to 80s Review of Systems Review of Systems: All systems reviewed & are unremarkable except as noted in HPI & below (Denied chest pain or shortness of breath, denied abdominal pain) Physical Exam Constitutional: WD/WN, vitals as above + obese Eyes: PERRL, conjunctivae normal, anicteric sclerae + EOM not intact (Right eye with exotropia and unable to gaze completely to the left with the right eye) and no anisocoria ENMT: external ear and nose normal, oropharynx normal Neck: trachea midline, no thyromegaly Respiratory: normal respiratory effort, lungs clear to auscultation Cardiovascular: RRR, no murmur, no edema Gastrointestinal (Abdomen): normal bowel sounds, soft, nontender, no hepatosplenomegaly Musculoskeletal: Extremities: extremities normal to inspection; no cyanosis and no clubbing Skin: no rashes, warm and dry Neurologic: + focal motor deficit (3/5 strength throughout upper and lower extremities decreased from previous) and awake; + CN's not intact (With decreased sensation throughout left side of face, with tongue protrusion to the right) Speech / Cognition: + abnormal speech (Moderate dysarthria which is worse from yesterday) Motor/Sensory: + tremor (With action of the left hand) and + sensory deficit (In left upper extremity and left lower extremity slightly worse than previous); no pronator drift Psychiatric: Orientation: alert, oriented to person, oriented to place and cooperative Eye Contact: good eye contact Affect: + anxious affect Results & Data Vital Signs (Past 12 Hours) Vital Signs Temp Pulse Resp BP BP Pulse Ox 02/08/19 19:00 36.9 C 70 24 100 02/08/19 18:41 70 02/08/19 18:15 71 24 182/64 H 94 02/08/19 18:01 71 22 95 02/08/19 18:00 70 21 181/78 H 96 02/08/19 17:46 68 16 155/74 H 97 02/08/19 17:31 76 15 180/54 H 95 02/08/19 17:30 82 24 93 02/08/19 17:16 74 20 173/55 H 97 02/08/19 17:01 80 23 94 02/08/19 17:00 80 15 184/70 H 93 02/08/19 16:46 72 19 165/69 H 95 02/08/19 16:31 70 26 H 96 02/08/19 16:30 67 23 162/91 H 94 02/08/19 16:16 66 25 H 173/57 H 94 02/08/19 16:00 67 18 172/71 H 94 02/08/19 15:46 74 16 154/63 H 95 02/08/19 15:31 68 16 95 02/08/19 15:30 70 37 H 172/61 H 93 02/08/19 15:15 74 28 H 172/76 H 94 02/08/19 15:01 75 26 H 95 02/08/19 15:00 72 19 176/58 H 98 02/08/19 14:45 78 22 166/70 H 93 02/08/19 14:31 78 24 94 02/08/19 14:30 79 24 195/61 H 95 02/08/19 14:15 81 23 160/91 H 95 02/08/19 14:01 83 26 H 95 02/08/19 14:00 83 21 167/116 H 95 02/08/19 13:46 84 14 153/64 H 95 02/08/19 13:31 78 23 139/73 94 02/08/19 13:30 78 25 H 93 02/08/19 13:17 80 26 H 153/70 H 94 02/08/19 13:01 77 21 167/85 H 95 02/08/19 13:00 76 26 H 94 02/08/19 12:45 74 22 179/99 H 93 02/08/19 12:31 72 21 151/97 H 94 02/08/19 12:30 69 20 96 02/08/19 12:16 69 22 95 02/08/19 12:15 74 16 164/80 H 94 02/08/19 12:01 66 18 95 02/08/19 12:00 70 20 180/60 H 96 02/08/19 11:58 68 20 166/71 H 96 02/08/19 11:56 95 02/08/19 11:16 67 24 95 02/08/19 11:15 70 20 182/63 H 95 02/08/19 11:01 71 22 91 02/08/19 11:00 69 22 177/74 H 91 02/08/19 10:46 74 20 93 02/08/19 10:45 71 19 181/74 H 94 02/08/19 10:33 69 21 187/79 H 94 02/08/19 10:30 69 21 92 02/08/19 10:15 65 20 95 02/08/19 10:01 64 20 94 02/08/19 10:00 69 23 181/96 H 95 02/08/19 08:34 133/68 02/08/19 08:25 114/64 02/08/19 08:00 64 Laboratory Results 02/08/19 02/08/19 02/08/19 Range/Units Unknown 19:52 16:34 POC Glucose 154 H 128 H (70-99) Nasal Screen MRSA (PCR) Negative (Negative) 02/08/19 02/08/19 02/08/19 Range/Units 12:24 07:33 04:18 POC Glucose 164 H 126 H 112 H (70-99) Nasal Screen MRSA (PCR) (Negative) 02/07/19 Range/Units 20:20 POC Glucose 193 H (70-99) Nasal Screen MRSA (PCR) (Negative) Diagnostic Findings MRI brain without contrast: IMPRESSION: 1. 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 8 mm focus of restricted water diffusion within the left central carey consistent with acute/subacute infarct CT head noncontrast: Images personally reviewed by me and agree with the following report: IMPRESSION: 1. Stable right convexity meningioma 2. Small left central pontine infarct 3. No evidence of acute hemorrhage PG Care Time/CCT Total # of Minutes Spent Total Time Spent with Patient: Total time spent is greater than 50% in coordination of care (as documented) at patient's floor/unit and/or counseling patient: Prolonged Care Time Prolonged Care Time: Yes (I spent 35 minutes in direct prolonged care with this patient) Total Prolonged Care Time: 35 (1) Hypertension Hypertension type: essential hypertension Qualified Code(s): I10 - Essential (primary) hypertension (2) CKD (chronic kidney disease) Chronic kidney disease stage: unspecified stage Qualified Code(s): N18.9 - Chronic kidney disease, unspecified
[2019-02-08] MEDS: ESCITALOPRAM OXALATE 20 MG TAB PO SCH (20:49)
[2019-02-08] MEDS ORDERED: HydrALAZINE HCL 20 MG/ML VIAL IV ONE (22:25)
[2019-02-08] MEDS ORDERED: LABETALOL HCL IV 5 MG/ML 20ML IV STA (23:08)
[2019-02-09] MEDS: SODIUM CHLORIDE 0.9% 1000ML 1,000 ML IV SCH ×2 (03:48→11:34)
[2019-02-09 04:52] LABS: Hematocrit (blood only) 38.8 % (37-47); Hemoglobin 12.2 g/dL (12.0-16.0); Mean Corpuscular Hemoglobin 24.6 pg (25-34); Mean Corpuscular Hgb Conc 31.4 g/dL (32-36); Mean Corpuscular Volume 78.4 fL (80-100); RDW Coefficient of Variation 13.8 % (11.5-14.5); RDW Standard Deviation 39.2 fL (36.4-46.3); Red Blood Count 4.95 M/uL (4.2-5.4); White Blood Count 5.15 K/uL (4.8-10.8)
[2019-02-09 04:57] LABS: Mean Platelet Volume 8.9 fL (7.4-10.4); Platelet Count 94 K/uL (130-400)
[2019-02-09 05:19] LABS: BUN Creatinine Ratio 20.3 (10-20); Calcium 8.8 mg/dl (8.5-10.1); Creatinine Clr Calc Pharmacy 53.2 ml/min; Est GFR (African American) 69.1; Est GFR (Non-African American) 59.6; Magnesium 1.8 mg/dl (1.8-2.4); Potassium 3.8 mmol/L (3.5-5.1)
[2019-02-09 05:20] LABS: Basophils # (auto) 0.02 K/uL (0-0.2); Basophils % (auto) 0.4 %; Eosinophils # (auto) 0.12 K/uL (0-0.5); Eosinophils % (auto) 2.3 %; Immature Granulocytes # (auto) 0.01 K/uL (0.00-0.02); Immature Granulocytes % (auto) 0.2 %; Lymphocytes % (auto) 29.1 %; Monocytes # (auto) 0.35 K/uL (0.11-0.59); Monocytes % (auto) 6.8 %; Neutrophils # (auto) 3.15 K/uL (1.4-6.5); Neutrophils % (auto) 61.2 %
[2019-02-09 05:29] LABS: Thyroid Stimulating Hormone 2.19 uIu/ml (0.300-4.500)
--- NOTE | 2019-02-09 05:43 | Critical Care Progress Note ---
Date of Service February 09, 2019 Assessment & Plan (1) Admitted to intensive care unit: Reason Critically Ill: Morning of 02/08, she had an episode of worsening dysarthria and dizziness that did not respond to IVFs or head of bed down. She was transferred to ICU for monitoring of stroke like symptoms. Neuro: Per recommendations from neuro consult reordered repeat MRI w/o - no change in findings from prior study 8 mm focus of restricted water diffusion within the left central carey consistent with acute/subacute infarct Secondary stroke prevention with Antiplatelet: ASA 81mg po daily/plavix 75mg daily and statin Monitor for return of symptoms, if symptoms return lay bed flat and IVFs, if no improvement in 20-[address] head and repeat MRI Allow for permissive HTN, hold HTN to allow permissive HTN Cardiac/Vascular PMHx: HTN, DM, PAC, PVC Echocardiogram TransThoracic: EF 65-70%, mild LVH, mild Mitral regurg Continue with Pravastatin 40mg PO Cardiac and hemodynamic montoring Obtain orthostatics She did have Labetalol x1 and Hydralazine x1 for Systolic of 220 that resolved into 160s. Pulm: Currently oxygenating well on RA, monitor SpO2 CPAP qHS for [place] GI: Diet carb consistent DM 2 Renal/Lytes: Hx CKD Continue with IVF NS @ 75ml/hr Trend lytes and replace as indicated - WNL this AM : [place] None Endo: DM insulin dependent continue with Glargine 30units qAM; 22units qPM ICU Hyperglycemia protocol Heme: stable annie, no current issues ID: No signs or sources for infection Lines: peripheral IV DVT: SCDs Resuscitation status: Conditional Code - code may be attempted only twice. (2) Left pontine stroke: (3) Weakness: (4) DVT prophylaxis: (5) Hypertension: (6) Morbid obesity: (7) IDDM (insulin dependent diabetes mellitus): (8) Neuropathy: (9) History of benign brain tumor: (10) History of cardiac catheterization: (11) History of total abdominal hysterectomy: (12) History of cataract surgery: (13) History of mastectomy: Supervising Physician Co-Signing Physician Notes Dr. Madrigal was resident physician during care of patient. I separately evaluated patient for chiu portions of the history and the exam. I was present during the critical portion of medical decision making, and I discussed the case with the resident. I generally agree with the findings and plan. Patient having permissive hypertension, she did exceed systolic blood pressure of 220 and received another dose of intravenous medication. Patient was on metoprolol extended release 50 mg daily, we will reinitiate the beta-andreia at this time. Subjective Patient was seen and evaluated this morning. No acute events reported overnight. No dizziness or worsening focal/neuro complaints. She did have Labetalol x1 and Hydralazine x1 for Systolic of 220 that resolved into 160s. Physical Exam Constitutional: + obese, cooperative and comfortable; no acute distress Eyes: PERRL ENMT: external ear and nose normal, oropharynx normal Neck: normal visual inspection and trachea midline Respiratory: normal respiratory effort, lungs clear to auscultation Cardiovascular: Rate/Rhythm: regular rate and regular rhythm Gastrointestinal (Abdomen): Percussion/Palpation: abdomen soft; abdomen nontender, no guarding and abdomen not rigid Musculoskeletal: Head/Neck/Chest: normocephalic and head atraumatic Skin: no rashes, warm and dry Neurologic: moves all extremities and awake; no focal motor deficits and not confused Cranial Nerves: PERRL, normal facial strength, tongue midline, able to elevate shoulders bilaterally and symmetric palate elevation Psychiatric: Orientation: alert and oriented x 3 Affect: + anxious affect Results & Data Vital Signs (Past 12 Hours) Vital Signs Temp Pulse Resp BP Pulse Ox 02/09/19 04:00 73 0 L 153/61 H 99 02/09/19 03:00 77 17 171/108 H 98 02/09/19 02:00 72 18 198/84 H 99 02/09/19 01:00 82 18 165/77 H 94 02/09/19 00:17 36.7 C 02/09/19 00:00 81 20 97 02/08/19 23:20 84 02/08/19 23:00 80 27 H 205/80 H 96 02/08/19 22:00 71 27 H 190/88 H 95 02/08/19 21:00 67 19 186/97 H 96 02/08/19 20:00 67 17 168/72 H 97 02/08/19 19:00 36.9 C 70 24 100 02/08/19 18:41 70 02/08/19 18:15 71 24 182/64 H 94 02/08/19 18:01 71 22 95 02/08/19 18:00 70 21 181/78 H 96 02/08/19 17:46 68 16 155/74 H 97 PG Care Time/CCT Total # of Minutes Spent Total Time Spent with Patient: Total time spent is greater than 50% in coordination of care (as documented) at patient's floor/unit and/or counseling patient: Critical Care Time: Yes Total Critical Care Time: 35 Resident Activity Tracking Resident Involvement: Resident Care Provided Care Provided: Adult Hospital Medicine (ICU) (1) Hypertension Hypertension type: unspecified Qualified Code(s): I10 - Essential (primary) hypertension
[2019-02-09] MEDS ORDERED: MAGNESIUM OXIDE 400 MG TAB PO STA (05:49)
[2019-02-09] MEDS ORDERED: POTASSIUM CHLORIDE 20 MEQ TABCR PO STA (05:49)
[2019-02-09] MEDS ORDERED: LABETALOL HCL IV 5 MG/ML 20ML IV STA ×3 (06:10→22:06)
--- NOTE | 2019-02-09 08:14 | Neurology Progress Note ---
Date of Service February 09, 2019 Assessment & Plan (1) Left pontine stroke: Liv Charlton is a 78 yo woman w/ PMH of DM, HTN, CKD, frequent PVCs and PACs, and h/o right anterior temporal meningioma who presented to [facility] after acute onset of headache, generalized weakness, gait imbalance, diplopia, dysarthria and tongue numbness. CTH showed stable right anterior temporal meningioma, no hemorrhage or hypodensity, generalized atrophy and mild-moderate SVID. MRA H&N showed no LVO or aneurysm, ?high grade stenosis of the origin of the left vertebral artery versus not visualized well, no other high grade stenosis, and right PHYSICIAN RELATIONS REPRESENTATIVE. MRI brain showed an acute infarct in the left paramedian carey, moderate SVID and mild generalized atrophy. 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 Stroke WorkUp: - CT head: stable right anterior temporal meningioma, no hemorrhage or hypodensity, generalized atrophy and mild-moderate SVID. Repeat CTH on 02/08 showed new hypodensity in left carey c/w known stroke. - MRI brain: acute infarct in the left paramedian carey, moderate SVID and mild generalized atrophy. Repeat MRI brain on 02/08 showed stable left paramedian pontine infarct, no new infarcts. - MRA head/neck: no LVO or aneurysm, ?high grade stenosis of the origin of the left vertebral artery versus not visualized well, no other high grade stenosis, and right PHYSICIAN RELATIONS REPRESENTATIVE - TTE: EF 65-70%, mild LVH, mild MR - Telemetry: pending - A1c: 7.4 - FLP: 85 - Troponin, TSH: elevated, WNL Stroke Management: - Continuous cardiac monitoring, will consider Holter monitor as outpatient if telemetry here unrevealing - Vitals, Neurochecks, NIHSS per unit routine - BP parameters: SBP CAP 180, ok to restart home anti-hypertensives with goal of normotension over next 3-4 days. - Consult speech, PT, OT for supportive management - Counseled concerning stroke education, smoking cessation, healthy diet, physical activity, weight loss - Follow up with PCP for assistance with outpatient goals (BP <135/85, LDL <70, A1c <7) - Follow up in neurology clinic in 6-8 weeks - if recurrent episode of worsening neurological symptoms, would lower head of bed, allow blood pressure to self-regulate, IVFs. If no improvement within 20-30 minutes, would get stat CTH and repeat MRI brain urgently. - She also has baseline neck issues that she reportedly was supposed to have surgery for in the next few weeks, but not clear if she has baseline upper extremity weakness bilaterally or not (patient is a poor historian and sisters are not sure). - Given poorly controlled diabetes, she may also have a baseline level of autonomic dysfunction Secondary Stroke Prevention: - Antiplatelet: ASA 81mg po daily/plavix 75mg daily x 30 days, will then consider changing to just aspirin 81mg daily in the outpatient setting - Anticoagulation: Not indicated at this time - Statin: Atorvastatin 40mg daily HTN: - BP parameters, as above - Ok to restart home BP meds (metoprolol) for goal normotension over next 3-4 days Glucose Control: - Sliding scale insulin and accuchecks per primary team to avoid hyperglycemia Thank you for this interesting consult. Plan of care was discussed with patient and her family. Please call or text with any questions. My colleague, Dr Duong, will be taking over the service tomorrow (02/10). Subjective NAEs overnight. Denies having any further episodes of dizziness/nausea this morning. BP has been stable, no drops to less than 100 systolic. Does report ongoing diplopia and difficulty reading (blurry vision) and left tongue numbness. Review of Systems Review of Systems: 14 point review of systems completed and negative except as in HPI. Physical Exam Physical Exam: General Exam: GEN: NAD, sitting in chair HEENT: No conjunctival injection, no rhinorrhea. CV: RRR on monitor, trace peripheral edema. PULM: Nonlabored respirations on room air. Neuro Exam: MS: Awake and Alert. Oriented to person, place, month and year but not date. Speech fluent and appropriate with mild dysarthria, no paraphasic errors. Language intact including naming, comprehension, repetition. Cognition intact, memory mildly impaired. Slightly inattentive. No neglect. CN: Visual archibald full. No extinction to double simultaneous stimuli. Normal fundoscopic exam. PERRLA OU. Baseline exotropia in right eye. Unable to completely bury the sclera on horizontal gaze in either direction. Decreased facial sensation in the left face. Facial muscles full and symmetric (slight left facial droop at rest but not appreciated when smiling). Hearing intact to conversation. Uvula midline with symmetric palatal elevation. Shoulder shrug normal. Tongue midline. MOTOR: Normal bulk and tone. No pronator drift. BUE strength 5-/5 at deltoids, biceps, triceps, wrist flexors and extensors, and hand grasp. BLE strength 5-/5 at iliopsoas, hamstrings, quadriceps, tibialis anterior, and gastrocnemius bilaterally. REFLEXES: 1+ at biceps, triceps, brachioradialis, trace patella, and absent Achilles bilaterally. Flexor plantar responses bilaterally. SENSORY: Intact to LT/temperature throughout (reports less sensation on the LUE/LLE), no extinction to double simultaneous stimuli. Decreased vibration in BLEs up to the knees (has baseline neuropathy). COORDINATION: No dysmetria or ataxia on [id number] bilaterally. Normal [place] bilaterally. GAIT: Deferred due to physical status. NIH STROKE SCALE 1A. Level of Consciousness (0-3) = 0 1B. LOC Questions (0-2) = 0 1C. LOC Commands (0-2) = 0 2. Best Horizontal Gaze (0-2) = 0 3. Visual Archibald (0-3) = 0 4. Facial Palsy (0-3) = 0 5. Motor Arm Right (0-4) = 0 Left (0-4) = 0 6. Motor Leg Right (0-4) = 0 Left (0-4) = 0 7. Limb Ataxia (0-2) = 0 8. Sensory (0-2) = 1 9. Best Language (0-3) = 0 10. Dysarthria (0-2) = 1 11. Extinction and Inattention (0-2) = 0 NIHSS TOTAL = 2 Results & Data Vital Signs (Past 12 Hours) Vital Signs Temp Pulse Resp BP Pulse Ox 02/09/19 06:12 77 18 183/87 H 98 02/09/19 05:00 81 21 162/61 H 98 02/09/19 04:00 73 0 L 153/61 H 99 02/09/19 03:00 77 17 171/108 H 98 02/09/19 02:00 72 18 198/84 H 99 02/09/19 01:00 82 18 165/77 H 94 02/09/19 00:17 36.7 C 02/09/19 00:00 81 20 97 11/09/19 23:20 84 02/08/19 23:00 80 27 H 205/80 H 96 02/08/19 22:00 71 27 H 190/88 H 95 02/08/19 21:00 67 19 186/97 H 96 PG Care Time/CCT Total # of Minutes Spent Total Time Spent with Patient: Total time spent is greater than 50% in coordination of care (as documented) at patient's floor/unit and/or counseling patient:
[2019-02-09] MEDS: INSULIN GLARGINE SOLOSTAR 100 UNITS/ML 3 ML PEN SC SCH ×2 (08:37→20:17)
[2019-02-09] MEDS: ASPIRIN 81 MG ECTAB PO SCH (08:37)
[2019-02-09] MEDS: FLUTICASONE PROPIONATE NA SPR 16 GM BTL SCH ×2 (08:37→20:17)
[2019-02-09] MEDS: INSULIN ASPART 100 UNITS/ML 3 ML PEN SC SCH ×4 (08:38→20:18)
[2019-02-09] MEDS: CLOPIDOGREL BISULFATE 75 MG TAB PO SCH (09:16)
[2019-02-09] MEDS: METOPROLOL SUCC 50MG EXT REL TAB PO SCH (11:55)
[2019-02-09] MEDS: GABAPENTIN 600 MG TAB PO SCH ×2 (17:24→23:01)
[2019-02-09] MEDS: PRAVASTATIN SOD 40 MG TAB PO SCH (17:24)
--- NOTE | 2019-02-09 18:26 | Hospitalist Progress Note ---
Date of Service February 09, 2019 Assessment & Plan (1) Left pontine stroke: This patient is a 78-year-old female with history of diabetes, hypertension, CKD presenting with sudden onset of stabbing headache pains and numbness on the left side of body with right facial droop and weakness in bilateral legs causing a fall on the ground. Upon admission, she has very mild rightward tongue deviation as well as diminished sensation to light touch on the left upper and lower extremity and diminished strength in the right upper extremity, mild dysarthria per son. Concern for CVA and she was admitted. TPA not initiated secondary to duration of symptoms. 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 She continued to have some stuttering-like symptoms of her stroke for the last several days-much worse when blood pressure dropped into the 90 systolic on the morning of 02/08 Having autonomic disequilibrium with labile blood pressures Her symptoms are largely dependent on her blood pressure On 02/08, she was focally weak throughout both sides as well as significantly worsened dysarthria and continued diplopia Repeat CT of the head without hemorrhage, repeat MRI in 02/08 of the brain shows persistent 8 mm left paramedian carey subacute to acute infarct unchanged from previous Symptoms improved again with brain blood pressure up closer to the 160s if in 170s systolic Neurology states that strokes in this location tend to be highly BP-dependent and needs high BPs. BPs have been significantly labile anywhere from 110 systo lic to 227 systolic Overall improved on 02/09 with neurological symptoms-strength is 5/5, still with diplopia, but sensation is now intact -lie flat or near to flat when has worsening symptoms -Attempted to keep blood pressure greater than 140/90, however neurology recommended okay to restart metoprolol today (02/09) -Hopeful that is more time passes from the time of the stroke, that her autonomi c disequilibrium will improve -Continue cardiac monitoring, will consider Holter monitor as outpatient if telemetry here unrevealing - now restart Toprol from home - Consult speech, PT, OT for supportive management - Follow up with PCP for assistance with outpatient goals (BP <135/85, LDL <70, A1c <7) - Follow up in neurology clinic in 6-8 weeks For secondary Stroke Prevention: - Antiplatelet: Continue ASA 81mg po daily -Started Plavix 75mg daily x30 days and then likely will go to just aspirin 81 mg daily after that-to be determined as outpatient by neurology -Patient has a history of severe myalgias with atorvastatin she believes in the past- started pravastatin 40 mg daily and tolerating-we will increase to 80 mg daily -[facility]-no authorization needed (2) IDDM (insulin dependent diabetes mellitus): Patient with type 2 diabetes, insulin dependence, with peripheral neuropathy. Last hemoglobin A1c on 01/08/2019 = 7.6. At home, patient administered 60 to 64 units of Basaglar/insulin glargine nightly. She reports fairly frequent episodes of low blood sugar that occurred during the night. Is unable to provide further details as to how frequently and how low. Seen by nurse clinical document improvement educator here and recommends lowering basal dose of insulin at home to prevent morning hypoglycemia Was having lower AM glucose and hyperglycemia in the evenings which is now improved with changing dosing of Lantus and splitting it into a morning and evening dose -Continue Lantus 30 units qAM and 22 units qPM -Insulin sliding scale -continue Accu-Cheks -ADA diet (3) Hypertension: Blood pressure remains labile as above with autonomic disequilibrium secondary to pontine stroke -IV labetalol or hydralazine as needed for SBP greater than 220 -Restarted metoprolol succinate 50 mg once daily today -Continue to closely monitor blood pressure in ICU (4) CKD (chronic kidney disease): Chronic kidney disease, stage 3 BUN and creatinine near baseline. Electrolytes favorable -Continue to monitor BUN, creatinine, electrolytes and urine output -Avoid nephrotoxic agents (5) Neuropathy: Chronic. Stable. Continue gabapentin 600 mg p.o. 3 times daily (6) Elevated troponin level: Patient with chronic elevation of troponin. Typically 0.05. Troponin then went to 0.107 and then down to 0.095 on repeat testing. She denies chest pain. EKG with no acute ischemic changes and no significant change from prior studies. Telemetry monitoring Echo ordered as part of stroke work-up without wall motion abnormalities Likely secondary to acute CVA (7) Morbid obesity: BMI 40.6 -Encouraged exercise, weight loss (8) Anxiety: Stable but exacerbated somewhat by acute medical condition -Continue escitalopram 20 mg daily (9) DVT prophylaxis: ProphylaxisSCDs [place]. Only 2 attempts per patient request and only if outcome is deemed to be favorable. Dispositioncontinued stay in ICU for closer blood pressure monitoring given lability Plan for rehab placement at [facility] when medically stable-not today given blood pressures Subjective Patient feeling much improved today. She had blood pressures in the 220s systolic last night and did get IV labetalol, however blood pressures today have stabilized and she was given her metoprolol this morning. Blood pressures are currently ranging in the 110s to 220s systolic over 70s to 100s diastolic Telemetry with normal sinus rhythm Patient denies any worsening of her speech, no worsening weakness or numbness. No further lightheadedness. She is still having the same double vision. She feels mentally clearer today. No headache Review of Systems Review of Systems: All systems reviewed & are unremarkable except as noted in HPI & below (No chest pain or shortness of breath, no nausea or vomiting, no abdominal pain, is tolerating p.o.) Physical Exam Constitutional: WD/WN, vitals as above + obese Eyes: PERRL, conjunctivae normal, anicteric sclerae + EOM not intact (Right eye with exotropia and unable to gaze completely to the left with the right eye) and no anisocoria ENMT: external ear and nose normal, oropharynx normal Neck: trachea midline, no thyromegaly Respiratory: normal respiratory effort, lungs clear to auscultation Cardiovascular: RRR, no murmur, no edema Gastrointestinal (Abdomen): normal bowel sounds, soft, nontender, no hepatosplenomegaly Musculoskeletal: Extremities: extremities normal to inspection; no cyanosis and no clubbing Skin: no rashes, warm and dry Neurologic: + focal motor deficit (Much improved 5/5 strength throughout upper and lower extremities) and awake; + CN's not intact (With decreased sensation throughout left side of face, with tongue protrusion to the right) and + abnormal deep tendon reflexes (1+ and symmetric throughout biceps, triceps, brachioradialis, patellar, absent in Achilles bilaterally) Speech / Cognition: + abnormal speech (Very mild dysarthria significantly improved from previous) Motor/Sensory: + tremor (With action of the left hand); no sensory deficit Coordination: normal [id number]-ro-[id number] test Psychiatric: A+Ox3, euthymic affect Results & Data Vital Signs (Past 12 Hours) Vital Signs Pulse Resp BP Pulse Ox 02/09/19 11:45 79 25 H 144/93 H 93 02/09/19 11:31 81 19 153/69 H 95 02/09/19 11:30 78 23 94 02/09/19 11:15 78 20 90 02/09/19 11:01 75 21 159/78 H 97 02/09/19 11:00 76 28 H 94 02/09/19 10:46 82 25 H 227/112 H 94 02/09/19 10:45 82 30 H 94 02/09/19 10:34 83 23 203/108 H 96 02/09/19 10:31 83 24 236/87 H 91 02/09/19 10:30 82 25 H 93 02/09/19 10:15 77 25 H 167/109 H 94 02/09/19 10:06 75 20 168/124 H 97 02/09/19 10:00 74 16 97 02/09/19 09:46 78 24 167/80 H 95 02/09/19 09:45 75 19 95 02/09/19 09:30 78 24 170/101 H 94 02/09/19 09:16 74 17 142/74 H 95 02/09/19 09:15 75 22 94 02/09/19 09:01 75 23 120/107 H 97 02/09/19 09:00 79 22 94 02/09/19 08:46 78 19 110/66 95 02/09/19 08:45 75 21 91 02/09/19 08:30 80 23 143/68 H 93 02/09/19 08:15 78 17 121/72 91 02/09/19 08:00 78 19 145/78 H 92 02/09/19 07:45 79 19 94 02/09/19 07:35 79 23 171/87 H 94 02/09/19 07:30 77 14 93 02/09/19 07:19 86 21 170/72 H 02/09/19 07:18 79 22 145/104 H 02/09/19 07:15 76 16 98 02/09/19 07:01 76 23 225/99 H 99 02/09/19 07:00 76 31 H 98 02/09/19 06:45 74 20 99 02/09/19 06:30 79 21 97 Laboratory Results 02/09/19 02/09/19 02/09/19 Range/Units 16:50 11:31 07:36 WBC (4.8-10.8) K/uL RBC (4.2-5.4) M/uL Hgb (12.0-16.0) g/dL Hct (37-47) % MCV (80-100) fL MCH (25-34) pg MCHC (32-36) g/dL RDW Std Deviation (36.4-46.3) fL RDW Coeff of Tim (11.5-14.5) % Plt Count (130-400) K/uL MPV (7.4-10.4) fL Immature Gran % (Auto) % Neut % (Auto) % Lymph % (Auto) % Mckean % (Auto) % Eos % (Auto) % Baso % (Auto) % Immature Gran # (Auto) (0.00-0.02) K/uL Neut # (Auto) (1.4-6.5) K/uL Lymph # (Auto) (1.2-3.4) K/uL Mckean # (Auto) (0.11-0.59) K/uL Eos # (Auto) (0-0.5) K/uL Baso # (Auto) (0-0.2) K/uL Sodium (136-145) mmol/L Potassium (3.5-5.1) mmol/L Chloride (98-107) mmol/L Carbon Dioxide (21-32) mmol/L Anion Gap (3-11) BUN (7-18) mg/dl Creatinine (0.6-1.2) mg/dl Est Cr Clr Drug Dosing ml/min Est GFR ( Amer) Est GFR (Non-Af Amer) BUN/Creatinine Ratio (10-20) Glucose (70-99) mg/dl POC Glucose 177 H 170 H 129 H (70-99) Calcium (8.5-10.1) mg/dl Magnesium (1.8-2.4) mg/dl TSH (0.300-4.500) uIu/ml 02/09/19 02/09/19 02/09/19 Range/Units 06:17 04:32 04:32 WBC 5.15 (4.8-10.8) K/uL RBC 4.95 (4.2-5.4) M/uL Hgb 12.2 (12.0-16.0) g/dL Hct 38.8 (37-47) % MCV 78.4 L (80-100) fL MCH 24.6 L (25-34) pg MCHC 31.4 L (32-36) g/dL RDW Std Deviation 39.2 (36.4-46.3) fL RDW Coeff of Tim 13.8 (11.5-14.5) % Plt Count 94 L (130-400) K/uL MPV 8.9 (7.4-10.4) fL Immature Gran % (Auto) 0.2 % Neut % (Auto) 61.2 % Lymph % (Auto) 29.1 % Mckean % (Auto) 6.8 % Eos % (Auto) 2.3 % Baso % (Auto) 0.4 % Immature Gran # (Auto) 0.01 (0.00-0.02) K/uL Neut # (Auto) 3.15 (1.4-6.5) K/uL Lymph # (Auto) 1.50 (1.2-3.4) K/uL Mckean # (Auto) 0.35 (0.11-0.59) K/uL Eos # (Auto) 0.12 (0-0.5) K/uL Baso # (Auto) 0.02 (0-0.2) K/uL Sodium 143 (136-145) mmol/L Potassium 3.8 (3.5-5.1) mmol/L Chloride 110 H (98-107) mmol/L Carbon Dioxide 28 (21-32) mmol/L Anion Gap 5.0 (3-11) BUN 19 H (7-18) mg/dl Creatinine 0.92 (0.6-1.2) mg/dl Est Cr Clr Drug Dosing 53.2 ml/min Est GFR ( Amer) 69.1 Est GFR (Non-Af Amer) 59.6 BUN/Creatinine Ratio 20.3 H (10-20) Glucose 111 H (70-99) mg/dl POC Glucose 103 H (70-99) Calcium 8.8 (8.5-10.1) mg/dl Magnesium 1.8 (1.8-2.4) mg/dl TSH 2.190 (0.300-4.500) uIu/ml 02/08/19 Range/Units 19:52 WBC (4.8-10.8) K/uL RBC (4.2-5.4) M/uL Hgb (12.0-16.0) g/dL Hct (37-47) % MCV (80-100) fL MCH (25-34) pg MCHC (32-36) g/dL RDW Std Deviation (36.4-46.3) fL RDW Coeff of Tim (11.5-14.5) % Plt Count (130-400) K/uL MPV (7.4-10.4) fL Immature Gran % (Auto) % Neut % (Auto) % Lymph % (Auto) % Mckean % (Auto) % Eos % (Auto) % Baso % (Auto) % Immature Gran # (Auto) (0.00-0.02) K/uL Neut # (Auto) (1.4-6.5) K/uL Lymph # (Auto) (1.2-3.4) K/uL Mckean # (Auto) (0.11-0.59) K/uL Eos # (Auto) (0-0.5) K/uL Baso # (Auto) (0-0.2) K/uL Sodium (136-145) mmol/L Potassium (3.5-5.1) mmol/L Chloride (98-107) mmol/L Carbon Dioxide (21-32) mmol/L Anion Gap (3-11) BUN (7-18) mg/dl Creatinine (0.6-1.2) mg/dl Est Cr Clr Drug Dosing ml/min Est GFR ( Amer) Est GFR (Non-Af Amer) BUN/Creatinine Ratio (10-20) Glucose (70-99) mg/dl POC Glucose 154 H (70-99) Calcium (8.5-10.1) mg/dl Magnesium (1.8-2.4) mg/dl TSH (0.300-4.500) uIu/ml PG Care Time/CCT Total # of Minutes Spent Total Time Spent with Patient: Total time spent is greater than 50% in coordination of care (as documented) at patient's floor/unit and/or counseling patient: (1) Hypertension Hypertension type: essential hypertension Qualified Code(s): I10 - Essential (primary) hypertension (2) CKD (chronic kidney disease) Chronic kidney disease stage: unspecified stage Qualified Code(s): N18.9 - Chronic kidney disease, unspecified
[2019-02-09] MEDS ORDERED: PRAVASTATIN SOD 40 MG TAB PO STA (18:46)
[2019-02-09] MEDS: ESCITALOPRAM OXALATE 20 MG TAB PO SCH (20:18)
[2019-02-10 04:37] LABS: Hematocrit (blood only) 37.4 % (37-47); Hemoglobin 11.9 g/dL (12.0-16.0); Mean Corpuscular Hemoglobin 24.9 pg (25-34); Mean Corpuscular Hgb Conc 31.8 g/dL (32-36); Mean Corpuscular Volume 78.2 fL (80-100); RDW Standard Deviation 39.7 fL (36.4-46.3); Red Blood Count 4.78 M/uL (4.2-5.4)
[2019-02-10 04:45] LABS: Mean Platelet Volume 8.8 fL (7.4-10.4); Platelet Count 95 K/uL (130-400)
[2019-02-10 04:55] LABS: BUN Creatinine Ratio 19.5 (10-20); Calcium 8.9 mg/dl (8.5-10.1); Creatinine Clr Calc Pharmacy 44.5 ml/min; Est GFR (African American) 55.7; Est GFR (Non-African American) 48.1; Magnesium 1.8 mg/dl (1.8-2.4); Phosphorus 3.9 mg/dl (2.5-4.9); Potassium 4.1 mmol/L (3.5-5.1)
[2019-02-10 05:18] LABS: Basophils # (auto) 0.02 K/uL (0-0.2); Basophils % (auto) 0.4 %; Eosinophils % (auto) 1.9 %; Immature Granulocytes # (auto) 0.02 K/uL (0.00-0.02); Immature Granulocytes % (auto) 0.4 %; Lymphocytes # (auto) 1.58 K/uL (1.2-3.4); Lymphocytes % (auto) 29.3 %; Monocytes # (auto) 0.35 K/uL (0.11-0.59); Monocytes % (auto) 6.5 %; Neutrophils # (auto) 3.33 K/uL (1.4-6.5); Neutrophils % (auto) 61.5 %; RBC Morphology Unremarkable
--- NOTE | 2019-02-10 08:01 | Critical Care Progress Note ---
Date of Service February 10, 2019 Assessment & Plan (1) Admitted to intensive care unit: Reason Critically Ill: Morning of 02/08, she had an episode of worsening dysarthria and dizziness that did not respond to IVFs or head of bed down. She was transferred to ICU for monitoring of stroke like symptoms. Neuro: Per recommendations from neuro consult reordered repeat MRI w/o - no change in findings from prior study 8 mm focus of restricted water diffusion within the left central carey consistent with acute/subacute infarct Secondary stroke prevention with Antiplatelet: ASA 81mg po daily/plavix 75mg daily and statin Monitor for return of symptoms, if symptoms return lay bed flat and IVFs, if no improvement in 20-[address] head and repeat MRI Allow for permissive HTN, hold HTN to allow permissive HTN Patient was restarted on Metoprolol succinate 50mg yesterday, had some f luctuations of BP yesterday mid day that stabilized without any fluctuating values reported overnight. Cardiac/Vascular PMHx: HTN, DM, PAC, PVC Echocardiogram TransThoracic: EF 65-70%, mild LVH, mild Mitral regurg Continue with Pravastatin 40mg PO Cardiac and hemodynamic montoring orthostatics repeat this AM On 02/08 She did have Labetalol x1 and Hydralazine x1 for Systolic of 220 that resolved into 160s. 02/09 Metoprolol Succinate 50mg PO qAM was restarted without volatile BPs Pulm: Currently oxygenating well on RA, monitor SpO2 CPAP qHS for [place] GI: Diet carb consistent DM 2 Renal/Lytes: Hx CKD IVF discontinued, tolerating PO intake without complications and BPs stabilized Trend lytes and replace as indicated - WNL this AM : [place] None Endo: DM insulin dependent continue with Glargine 30units qAM; 22units qPM ICU Hyperglycemia protocol Heme: stable annie, no current issues ID: No signs or sources for infection Lines: peripheral IV DVT: SCDs Resuscitation status: Conditional Code - code may be attempted only twice. Stable for downgrade out of ICU (2) Left pontine stroke: (3) Weakness: (4) DVT prophylaxis: (5) Hypertension: (6) Morbid obesity: (7) IDDM (insulin dependent diabetes mellitus): (8) Neuropathy: (9) History of benign brain tumor: (10) History of cardiac catheterization: (11) History of total abdominal hysterectomy: (12) History of cataract surgery: (13) History of mastectomy: Supervising Physician Co-Signing Physician Notes Dr. Madrigal was resident physician during care of patient. I separately evaluated patient for chiu portions of the history and the exam. I was present during the critical portion of medical decision making, and I discussed the case with the resident. I generally agree with the findings and plan. 78-year-old female admitted with brainstem stroke and hemodynamic lability. Her hemodynamics have improved with reinstitution of oral medications. No new neurological symptoms. Neuro exam is unchanged. She is tolerating her home BiPAP without issue. She appears stable to transfer from the ICU. Discussed with hospitalist who have transfer the patient now. Will sign off when she leaves the ICU. Feel free to contact us with additional pulmonary critical care questions. Remaining work-up and management of her stroke per neurology and her primary attending service. Derick Peck was seen and examined this morning. Patient did well overnight, no acute overnight events reported. No worsening stroke like symptoms. Tolerating meals without complications. Metoprolol succinate 50mg was restarted yesterday and blood pressures have remained stable without volatility. No acute concerns or new complaints this AM. Physical Exam Constitutional: + obese, cooperative and comfortable; no acute distress Eyes: PERRL ENMT: external ear and nose normal, oropharynx normal Neck: normal visual inspection and trachea midline Respiratory: normal respiratory effort, lungs clear to auscultation Cardiovascular: Rate/Rhythm: regular rate and regular rhythm Gastrointestinal (Abdomen): Percussion/Palpation: abdomen soft; abdomen nontender, no guarding and abdomen not rigid Musculoskeletal: Head/Neck/Chest: normocephalic and head atraumatic Skin: no rashes, warm and dry Neurologic: moves all extremities and awake; no focal motor deficits and not confused Cranial Nerves: PERRL, normal facial strength, tongue midline, able to elevate shoulders bilaterally and symmetric palate elevation Psychiatric: Orientation: alert and oriented x 3 Affect: + anxious affect Results & Data Vital Signs (Past 12 Hours) Vital Signs Pulse Resp BP Pulse Ox 02/10/19 06:00 64 0 L 161/64 H 96 02/10/19 05:00 67 16 162/63 H 95 02/10/19 04:00 66 16 169/82 H 96 02/10/19 03:00 65 3 L 164/65 H 95 02/10/19 02:00 69 21 146/92 H 96 02/10/19 01:00 68 21 172/73 H 96 02/10/19 00:00 71 21 193/69 H 96 02/09/19 23:00 72 19 186/88 H 96 02/09/19 22:00 69 33 H 206/76 H 95 02/09/19 21:00 70 24 203/83 H 95 02/09/19 20:00 66 25 H 161/110 H 97 Laboratory Results Laboratory Results - last 24 hr 02/09/19 02/09/19 02/09/19 11:31 16:50 20:14 WBC RBC Hgb Hct MCV MCH MCHC RDW Std Deviation RDW Coeff of Tim Plt Count MPV Immature Gran % (Auto) Neut % (Auto) Lymph % (Auto) [place] % (Auto) Eos % (Auto) Baso % (Auto) Immature Gran # (Auto) Neut # (Auto) Lymph # (Auto) [place] # (Auto) Eos # (Auto) Baso # (Auto) RBC Morphology Sodium Potassium Chloride Carbon Dioxide Anion Gap BUN Creatinine Est Cr Clr Drug Dosing Est GFR ( Amer) Est GFR (Non-Af Amer) BUN/Creatinine Ratio Glucose POC Glucose 170 H 177 H 168 H Calcium Phosphorus Magnesium 02/10/19 02/10/19 02/10/19 04:30 04:30 06:12 WBC 5.40 RBC 4.78 Hgb 11.9 L Hct 37.4 MCV 78.2 L MCH 24.9 L MCHC 31.8 L RDW Std Deviation 39.7 RDW Coeff of Tim 14.0 Plt Count 95 L MPV 8.8 Immature Gran % (Auto) 0.4 Neut % (Auto) 61.5 Lymph % (Auto) 29.3 [place] % (Auto) 6.5 Eos % (Auto) 1.9 Baso % (Auto) 0.4 Immature Gran # (Auto) 0.02 Neut # (Auto) 3.33 Lymph # (Auto) 1.58 [place] # (Auto) 0.35 Eos # (Auto) 0.10 Baso # (Auto) 0.02 RBC Morphology Unremarkable Sodium 141 Potassium 4.1 Chloride 107 Carbon Dioxide 29 Anion Gap 5.0 BUN 22 H Creatinine 1.10 Est Cr Clr Drug Dosing 44.5 Est GFR ( Amer) 55.7 Est GFR (Non-Af Amer) 48.1 BUN/Creatinine Ratio 19.5 Glucose 112 H POC Glucose 108 H Calcium 8.9 Phosphorus 3.9 Magnesium 1.8 Medications Administered Aspirin (Ecotrin Ectab) 81 mg PO QAM [facility] Stop: 03/11/19 08:59 Last Admin: 02/09/19 08:37 Dose: 81 mg Documented by: [id number] Admin: 02/08/19 17:43 Dose: 81 mg Documented by: [id number] [facility]id[facility]) [facility] Stop: 03/07/19 15:49 Last Admin: 02/09/19 09:16 Dose: 75 mg Documented by: [id number] Admin: 02/08/19 08:57 Dose: 75 mg Documented by: [id number] Admin: 02/07/19 07:43 Dose: 75 mg Documented by: [id number] Admin: 02/06/19 10:47 Dose: Not Given Documented by: [id number] Admin: 02/05/19 18:28 Dose: Not Given Documented by: [id number] Escitalopram Oxalate (Lexapro Tab) 20 mg PO QPM [facility] Stop: 03/07/19 20:59 Last Admin: 02/09/19 20:18 Dose: 20 mg Documented by: [id number] Admin: 02/08/19 20:49 Dose: 20 mg Documented by: [id number] Admin: 02/07/19 22:09 Dose: 20 mg Documented by: [id number] Admin: 02/06/19 21:46 Dose: 20 mg Documented by: [id number] Admin: 02/05/19 20:26 Dose: 20 mg Documented by: [id number] Fluticasone Propionate (Flonase) 2 sprays NA BID [facility] Stop: 03/07/19 20:59 Last Admin: 02/09/19 20:17 Dose: 2 sprays Documented by: [id number] Admin: 02/09/19 08:37 Dose: 2 sprays Documented by: [id number] Admin: 02/08/19 20:48 Dose: 2 sprays Documented by: [id number] Admin: 02/08/19 08:27 Dose: 2 sprays Documented by: [id number] Admin: 02/07/19 22:08 Dose: 2 sprays Documented by: [id number] Admin: 02/07/19 07:38 Dose: 2 sprays Documented by: [id number] Admin: 02/06/19 21:45 Dose: 2 sprays Documented by: [id number] Admin: 02/06/19 09:26 Dose: 2 sprays Documented by: [id number] Admin: 02/05/19 20:26 Dose: 2 sprays Documented by: [id number] Gabapentin (Neurontin) 600 mg PO BID@1800,0000 [facility] Stop: 03/08/19 00:00 Last Admin: 02/09/19 23:01 Dose: 600 mg Documented by: [id number] Admin: 02/09/19 17:24 Dose: 600 mg Documented by: [id number] Admin: 02/08/19 23:03 Dose: 600 mg Documented by: [id number] Admin: 02/08/19 17:45 Dose: 600 mg Documented by: [id number] Admin: 02/07/19 22:11 Dose: 600 mg Documented by: [id number] Admin: 02/07/19 17:20 Dose: 600 mg Documented by: [id number] Admin: 02/06/19 23:36 Dose: 600 mg Documented by: [id number] Admin: 02/06/19 16:55 Dose: 600 mg Documented by: [id number] Admin: 02/05/19 23:07 Dose: 600 mg Documented by: [id number] Insulin Aspart (Novolog Flexpen) 0 units SC ACHS [facility] Stop: 03/07/19 17:14 Last Admin: 02/09/19 20:18 Dose: 2 units Documented by: [id number] Cosigned by: [id number] Admin: 02/09/19 17:24 Dose: 10 units Documented by: [id number] Cosigned by: [id number] Admin: 02/09/19 11:55 Dose: 8 units Documented by: [id number] Cosigned by: [id number] Admin: 02/09/19 08:38 Dose: 3 units Documented by: [id number] Cosigned by: [id number] Admin: 02/08/19 20:50 Dose: 1 units Documented by: [id number] Cosigned by: [id number] Admin: 02/08/19 17:44 Dose: 7 units Documented by: [id number] Cosigned by: [id number] Admin: 02/08/19 12:57 Dose: 6 units Documented by: [id number] Cosigned by: [id number] Admin: 02/08/19 08:58 Dose: 5 units Documented by: [id number] Cosigned by: [id number] Admin: 02/07/19 22:10 Dose: 3 units Documented by: [id number] Cosigned by: [id number] Admin: 02/07/19 17:22 Dose: 9 units Documented by: [id number] Cosigned by: [id number] Admin: 02/07/19 12:53 Dose: 6 units Documented by: [id number] Cosigned by: [id number] Admin: 02/07/19 07:39 Dose: 7 units Documented by: [id number] Cosigned by: [id number] Admin: 02/06/19 21:46 Dose: 1 units Documented by: [id number] Cosigned by: [id number] Admin: 02/06/19 16:54 Dose: 9 units Documented by: [id number] Cosigned by: [id number] Admin: 02/06/19 13:56 Dose: 5 units Documented by: [id number] Cosigned by: [id number] Admin: 02/06/19 09:24 Dose: Not Given Documented by: [id number] Cosigned by: [id number] Admin: 02/05/19 20:26 Dose: Not Given Documented by: [id number] Cosigned by: [id number] Admin: 02/05/19 18:23 Dose: 4 units Documented by: [id number] Cosigned by: [id number] Insulin Glargine (Lantus Solostar Pen) 30 units SC QAM [facility] Stop: 03/10/19 08:59 Last Admin: 02/09/19 08:37 Dose: 30 units Documented by: [id number] Cosigned by: [id number] Admin: 02/08/19 08:57 Dose: 30 units Documented by: [id number] Cosigned by: [id number] Insulin Glargine (Lantus Solostar Pen) 22 units SC HS [facility] Stop: 03/10/19 20:59 Last Admin: 02/09/19 20:17 Dose: 22 units Documented by: [id number] Cosigned by: [id number] Admin: 02/08/19 20:48 Dose: 22 units Documented by: [id number] Cosigned by: [id number] Metoprolol Succinate (Toprol Xl) 50 mg PO QAM [facility] Stop: 03/11/19 11:14 Last Admin: 02/09/19 11:55 Dose: 50 mg Documented by: [id number] Miscellaneous (Order Awaiting Action) 1 ea N/A QS [facility] Stop: 03/08/19 00:00 Last Admin: 02/09/19 23:02 Dose: Not Given Documented by: [id number] Admin: 02/09/19 17:02 Dose: Not Given Documented by: [id number] Admin: 02/09/19 08:39 Dose: Not Given Documented by: [id number] Admin: 02/08/19 23:04 Dose: Not Given Documented by: [id number] Admin: 02/08/19 15:54 Dose: Not Given Documented by: [id number] Admin: 02/08/19 08:26 Dose: Not Given Documented by: [id number] Admin: 02/08/19 01:14 Dose: Not Given Documented by: [id number] Admin: 02/07/19 17:07 Dose: Not Given Documented by: [id number] Admin: 02/07/19 07:37 Dose: Not Given Documented by: [id number] Admin: 02/06/19 23:36 Dose: Not Given Documented by: [id number] Admin: 02/06/19 15:41 Dose: Not Given Documented by: [id number] Admin: 02/06/19 09:26 Dose: Not Given Documented by: [id number] Admin: 02/05/19 23:07 Dose: Not Given Documented by: [id number] Miscellaneous (Carbohydrates For Hypoglycemia) 15 - 30 gm PO UD PRN PRN Reason: Hypoglycemia Protocol Stop: 03/07/19 17:14 Last Admin: 02/06/19 04:21 Dose: 15 gm Documented by: [id number] PG Care Time/CCT Total # of Minutes Spent Total Time Spent with Patient: Total time spent is greater than 50% in coordination of care (as documented) at patient's floor/unit and/or counseling patient: Resident Activity Tracking Resident Involvement: Resident Care Provided Care Provided: Adult Hospital Medicine (ICU ) (1) Hypertension Hypertension type: unspecified Qualified Code(s): I10 - Essential (primary) hypertension
[2019-02-10] MEDS: METOPROLOL SUCC 50MG EXT REL TAB PO SCH (08:26)
[2019-02-10] MEDS: INSULIN GLARGINE SOLOSTAR 100 UNITS/ML 3 ML PEN SC SCH ×2 (08:27→21:10)
[2019-02-10] MEDS: CLOPIDOGREL BISULFATE 75 MG TAB PO SCH (08:27)
[2019-02-10] MEDS: FLUTICASONE PROPIONATE NA SPR 16 GM BTL SCH ×2 (08:27→21:12)
[2019-02-10] MEDS: ASPIRIN 81 MG ECTAB PO SCH (08:27)
[2019-02-10] MEDS: INSULIN ASPART 100 UNITS/ML 3 ML PEN SC SCH ×4 (08:29→21:12)
--- NOTE | 2019-02-10 11:15 | Hospitalist Progress Note ---
Date of Service February 10, 2019 Assessment & Plan (1) Left pontine stroke: This patient is a 78-year-old female with history of diabetes, hypertension, CKD presenting with sudden onset of stabbing headache pains and numbness on the left side of body with right facial droop and weakness in bilateral legs causing a fall on the ground. Upon admission, she has very mild rightward tongue deviation as well as diminished sensation to light touch on the left upper and lower extremity and diminished strength in the right upper extremity, mild dysarthria per son. Concern for CVA and she was admitted. TPA not initiated secondary to duration of symptoms. 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 BPs have been significantly labile anywhere from 110 systolic to 227 systolic much improved on 02/10, only with diplopia, strength and sensation intact bilaterally walking well BP better today on Toprol, 160 systolic - Consult speech, PT, OT for supportive management - Follow up with PCP for assistance with outpatient goals (BP <135/85, LDL <70, A1c <7) - Follow up in neurology clinic in 6-8 weeks For secondary Stroke Prevention: - Antiplatelet: Continue ASA 81mg po daily -Started Plavix 75mg daily x30 days and then likely will go to just aspirin 81 mg daily after that-to be determined as outpatient by neurology -Patient has a history of severe myalgias with atorvastatin she believes in the past- started pravastatin 40 mg daily and tolerating-we will increase to 80 mg daily -Plan is for discharge to [facility], likely tomorrow (2) IDDM (insulin dependent diabetes mellitus): Patient with type 2 diabetes, insulin dependence, with peripheral neuropathy. Last hemoglobin A1c on 01/08/2019 = 7.6. At home, patient administered 60 to 64 units of Basaglar/insulin glargine nightly. She reports fairly frequent episodes of low blood sugar that occurred during the night. Is unable to provide further details as to how frequently and how low. Seen by nurse inclusion paraeducator here and recommends lowering basal dose of insulin at home to prevent morning hypoglycemia Was having lower AM glucose and hyperglycemia in the evenings which is now improved with changing dosing of Lantus and splitting it into a morning and evening dose -Continue Lantus 30 units qAM and 22 units qPM -Insulin sliding scale -continue Accu-Cheks -ADA diet monitor for hypoglycemia, no episodes today (3) Hypertension: Blood pressure better today continue Toprol 50mg daily will be notified if SBP > 200 (4) CKD (chronic kidney disease): Chronic kidney disease, stage 3 BUN and creatinine at baseline. Electrolytes normal making adequate urine (5) Neuropathy: Chronic. Stable. Continue gabapentin 600 mg p.o. 3 times daily (6) Elevated troponin level: Patient with chronic elevation of troponin. Typically 0.05. Troponin then went to 0.107 and then down to 0.095 on repeat testing. She denies chest pain. EKG with no acute ischemic changes and no significant change from prior studies. Telemetry monitoring Echo ordered as part of stroke work-up without wall motion abnormalities (7) Morbid obesity: BMI 40.6 -Encouraged exercise, weight loss (8) Anxiety: Stable but exacerbated somewhat by acute medical condition -Continue escitalopram 20 mg daily (9) DVT prophylaxis: ProphylaxisSCDs [place]. Only 2 attempts per patient request and only if outcome is deemed to be favorable. Disposition transfer to medical tele, can likely go to [facility] tomorrow if BP remains stable Subjective patient sitting up in a chair this morning still c/o blurred vision and diplopia, ongoing for 2 weeks no focal weakness, ambulated to the chair well she agrees to going to [facility] once medically stable labs are stable discussed with jonh Coreas to transfer out of ICU reviewed chart, appreciate recommendations from neurology BP is 160's systolic this AM, she tolerated her Toprol 50mg eating well, had cereal and tea Review of Systems Review of Systems: All systems reviewed & are unremarkable except as noted in HPI & below Eyes: + diplopia (and blurred vision) Physical Exam Constitutional: WD/WN, vitals as above + overweight Eyes: normal visual archibald by confrontation, PERRL and EOM intact bilaterally (right eye deviates inferior and lateral at rest, moves appropriately); no eyelid abnormality ENMT: external ear and nose normal, oropharynx normal Neck: trachea midline, no thyromegaly Respiratory: normal respiratory effort, lungs clear to auscultation Cardiovascular: RRR, no murmur, no edema Gastrointestinal (Abdomen): normal bowel sounds, soft, nontender, no hepatosplenomegaly Musculoskeletal: no cyanosis or clubbing, extremities motor strength 5/5 Skin: no rashes, warm and dry Neurologic: patellar DTR's 2+ bilat, sensation intact and PERRL, EOMI, accommodation nl, no face palsy, no dysarthria Psychiatric: A+Ox3, euthymic affect Lymphatic: no cervical or axillary lymphadenopathy Results & Data Vital Signs (Past 12 Hours) Vital Signs Pulse Resp BP Pulse Ox 02/10/19 10:30 69 19 96 02/10/19 10:16 97 02/10/19 10:00 73 17 95 02/10/19 09:35 64 18 180/66 H 02/10/19 09:30 73 17 133/70 96 02/10/19 09:27 72 17 156/73 H 95 02/10/19 09:08 71 23 165/71 H 02/10/19 09:00 68 21 165/71 H 02/10/19 08:45 65 19 02/10/19 08:30 69 20 02/10/19 08:19 76 12 171/105 H 02/10/19 08:18 76 20 156/87 H 02/10/19 08:16 77 16 176/69 H 02/10/19 08:15 75 17 02/10/19 08:00 73 19 166/67 H 94 02/10/19 07:45 69 19 90 02/10/19 07:30 66 23 95 02/10/19 07:15 68 2 L 96 02/10/19 07:01 61 8 L 140/73 96 02/10/19 07:00 62 0 L 95 02/10/19 06:45 61 4 L 95 02/10/19 06:30 61 16 96 02/10/19 06:15 62 17 95 02/10/19 06:00 64 0 L 161/64 H 96 02/10/19 05:00 67 16 162/63 H 95 02/10/19 04:00 66 16 169/82 H 96 02/10/19 03:00 65 3 L 164/65 H 95 02/10/19 02:00 69 21 146/92 H 96 02/10/19 01:00 68 21 172/73 H 96 02/10/19 00:00 71 21 193/69 H 96 Laboratory Results Laboratory Results - last 24 hr 02/09/19 02/09/19 02/09/19 11:31 16:50 20:14 WBC RBC Hgb Hct MCV MCH MCHC RDW Std Deviation RDW Coeff of Tim Plt Count MPV Immature Gran % (Auto) Neut % (Auto) Lymph % (Auto) [place] % (Auto) Eos % (Auto) Baso % (Auto) Immature Gran # (Auto) Neut # (Auto) Lymph # (Auto) [place] # (Auto) Eos # (Auto) Baso # (Auto) RBC Morphology Sodium Potassium Chloride Carbon Dioxide Anion Gap BUN Creatinine Est Cr Clr Drug Dosing Est GFR ( Amer) Est GFR (Non-Af Amer) BUN/Creatinine Ratio Glucose POC Glucose 170 H 177 H 168 H Calcium Phosphorus Magnesium 02/10/19 02/10/19 02/10/19 04:30 04:30 06:12 WBC 5.40 RBC 4.78 Hgb 11.9 L Hct 37.4 MCV 78.2 L MCH 24.9 L MCHC 31.8 L RDW Std Deviation 39.7 RDW Coeff of Tim 14.0 Plt Count 95 L MPV 8.8 Immature Gran % (Auto) 0.4 Neut % (Auto) 61.5 Lymph % (Auto) 29.3 [place] % (Auto) 6.5 Eos % (Auto) 1.9 Baso % (Auto) 0.4 Immature Gran # (Auto) 0.02 Neut # (Auto) 3.33 Lymph # (Auto) 1.58 [place] # (Auto) 0.35 Eos # (Auto) 0.10 Baso # (Auto) 0.02 RBC Morphology Unremarkable Sodium 141 Potassium 4.1 Chloride 107 Carbon Dioxide 29 Anion Gap 5.0 BUN 22 H Creatinine 1.10 Est Cr Clr Drug Dosing 44.5 Est GFR ( Amer) 55.7 Est GFR (Non-Af Amer) 48.1 BUN/Creatinine Ratio 19.5 Glucose 112 H POC Glucose 108 H Calcium 8.9 Phosphorus 3.9 Magnesium 1.8 Medications Administered Current Inpatient Medications Acetaminophen (Tylenol) 650 mg PO Q4H PRN PRN Reason: Pain or Fever Stop: 03/07/19 17:14 Aspir[facility] ([facility]rin [facility]) [facility] [place] Stop: 03/11/19 08:59 Last Admin: 02/10/19 08:27 Dose: 81 mg Documented by: Clopidogrel Bisulfate (Plavix) 75 mg PO QAM [facility] Stop: 03/07/19 15:49 Last Admin: 02/10/19 08:27 Dose: 75 mg Documented by: Dextrose (Dextrose 50%) 25 - 50 ml IV UD PRN; Protocol PRN Reason: Hypoglycemia Protocol Stop: 03/07/19 17:14 Escitalopram Oxalate (Lexapro Tab) 20 mg PO QPM [facility] Stop: 03/07/19 20:59 Last Admin: 02/09/19 20:18 Dose: 20 mg Documented by: Fluticasone Propionate (Flonase) 2 sprays NA BID [facility] Stop: 03/07/19 20:59 Last Admin: 02/10/19 08:27 Dose: 2 sprays Documented by: Gabapentin (Neurontin) 600 mg PO BID@1800,0000 [facility] Stop: 03/08/19 00:00 Last Admin: 02/09/19 23:01 Dose: 600 mg Documented by: Glucagon (Glucagen) 1 mg SQ UD PRN; Protocol PRN Reason: Hypoglycemia Protocol Stop: 03/07/19 17:14 Glucose (Dex4 Glucose) 4 - 8 tabs PO UD PRN; Protocol PRN Reason: Hypoglycemia Protocol Stop: 03/07/19 17:14 Glucose (Glucose 40%) 15 - 30 gm PO UD PRN; Protocol PRN Reason: Hypoglycemia Protocol Stop: 03/07/19 17:14 Insulin Aspart (Novolog Flexpen) 0 units SC ACHS [facility] Stop: 03/07/19 17:14 Last Admin: 02/10/19 08:29 Dose: 7 units Documented by: Insulin Glargine (Lantus Solostar Pen) 30 units SC [facility] Stop: 03/10/19 08:59 Last Admin: 02/10/19 08:27 Dose: 30 units Documented by: Insulin Glargine (Lantus Solostar Pen) 22 units SC HS [facility] Stop: 03/10/19 20:59 Last Admin: 02/09/19 20:17 Dose: 22 units Documented by: Metoprolol Succinate (Toprol Xl) 50 mg PO QAM [facility] Stop: 03/11/19 11:14 Last Admin: 02/10/19 08:26 Dose: 50 mg Documented by: Miscellaneous (Order Awaiting Action) 1 ea N/A QS [facility] Stop: 03/08/19 00:00 Last Admin: 02/10/19 08:29 Dose: Not Given Documented by: Miscellaneous (Carbohydrates For Hypoglycemia) 15 - 30 gm PO UD PRN PRN Reason: Hypoglycemia Protocol Stop: 03/07/19 17:14 Last Admin: 02/06/19 04:21 Dose: 15 gm Documented by: Pravastatin Sodium (Pravachol) 80 mg PO DAILY@1700 [facility] Stop: 03/12/19 16:59 PG Care Time/CCT Total # of Minutes Spent Total Time Spent with Patient: Total time spent is greater than 50% in coordination of care (as documented) at patient's floor/unit and/or counseling patient: (1) CKD (chronic kidney disease) Chronic kidney disease stage: unspecified stage Qualified Code(s): N18.9 - Chronic kidney disease, unspecified (2) Hypertension Hypertension type: essential hypertension Qualified Code(s): I10 - Essential (primary) hypertension
[2019-02-10] MEDS ORDERED: PRAVASTATIN SOD 40 MG TAB PO SCH (17:00)
[2019-02-10] MEDS: GABAPENTIN 600 MG TAB PO SCH ×2 (17:31→22:45)
[2019-02-10] MEDS: ESCITALOPRAM OXALATE 20 MG TAB PO SCH (21:10)
[2019-02-11] MEDS: INSULIN ASPART 100 UNITS/ML 3 ML PEN SC SCH ×2 (08:49→12:03)
[2019-02-11] MEDS: FLUTICASONE PROPIONATE NA SPR 16 GM BTL SCH (08:51)
[2019-02-11] MEDS: CLOPIDOGREL BISULFATE 75 MG TAB PO SCH (09:18)
[2019-02-11] MEDS: INSULIN GLARGINE SOLOSTAR 100 UNITS/ML 3 ML PEN SC SCH (09:18)
[2019-02-11] MEDS: METOPROLOL SUCC 50MG EXT REL TAB PO SCH (09:18)
[2019-02-11] MEDS: ASPIRIN 81 MG ECTAB PO SCH (09:18)
--- NOTE | 2019-02-11 17:19 | Discharge Summary ---
Date of Service February 11, 2019 Admission HPI Per Admitting Provider Elyssa Charlton is a 78-year-old female with history of diabetes, hypertension, CKD presenting with strokelike symptoms. She reports that this morning at 12:00 she woke up on her recliner and she had a sharp stabbing pain on the left side of her head. She also felt diffusely weak. She thought that it may be secondary to low blood sugar. When she checked her sugar it was 105. She proceeded to have some orange juice and crackers and tried to go back to sleep. States that she had a difficult time falling asleep and slept poorly. She woke up at 09 30 today and had a difficult time getting out of bed. She states that her entire body felt "strange". She had poor balance and difficulty with ambulation due to both of her legs feeling "wobbly" and generalized weakness. Feels that she was leaning to the left. She lost her balance and fell. Denies head trauma or loss of consciousness. Denies chest pain/dizziness/incontinence. She had a difficult time getting off the floor due to generalized weakness. Patient afebrile, hypertensive in the ER to 167/94, otherwise stable. Presently she is complaining of double vision as well as feeling slightly confused, not as sharp as usual and the feeling of the left side of her tongue not working. Her son is at bedside and reports that her speech is slower than normal and slightly garbled and she is having some difficulty with word finding at times. No additional complaints at this time. Specifically no chest pains. She has frequent palpitations, known PACs and PVCs and follows with Dr. Zapata for this. She reports that she felt a lot of palpitations last evening prior to going to bed. Otherwise denies shortness of breath, cough, wheeze, abdominal pain, nausea, vomiting, diarrhea, constipation. No fevers or chills. No dysuria. ER course: Ceftriaxone 2 g, Plavix 75 mg, flu vaccine, normal saline x500 mL Principal Diagnosis Left pontine stroke Discharge Exam Constitutional WD/WN, vitals as above + overweight Eyes normal visual archibald by confrontation, PERRL and EOM intact bilaterally (right eye deviates inferior and lateral at rest, moves appropriately); no eyelid abnormality ENMT external ear and nose normal, oropharynx normal Neck trachea midline, no thyromegaly Respiratory normal respiratory effort, lungs clear to auscultation Cardiovascular RRR, no murmur, no edema Gastrointestinal (Abdomen) normal bowel sounds, soft, nontender, no hepatosplenomegaly Musculoskeletal no cyanosis or clubbing, extremities motor strength 5/5 Skin no rashes, warm and dry Neurologic patellar DTR's 2+ bilat, sensation intact and PERRL, EOMI, accommodation nl, no face palsy, no dysarthria Psychiatric A+Ox3, euthymic affect Lymphatic no cervical or axillary lymphadenopathy Discharge Data Allergies Allergy/AdvReac Type Severity Reaction Status Date / Time Bactrim Allergy Severe THROAT Verified 05/14/15 15:22 CLOSED meperidine Allergy Severe almost Unverified 02/05/19 14:59 "closed throat" midodrine Allergy Severe "almost Unverified 02/05/19 14:59 closed throat" Penicillins Allergy Severe ANAPHYLAXIS Unverified 02/05/19 14:59 Quinolones Allergy Severe TOLERATED Verified 02/05/19 14:59 LEVAQUIN IV - SEP 06 sulfamethoxazole Allergy Severe THROAT Verified 02/05/19 14:59 CLOSED trimethoprim Allergy Severe THROAT Verified 02/05/19 14:59 CLOSED diphenoxylate Allergy Intermediate Unknown Verified 02/05/19 14:59 glyburide Allergy Intermediate SEVERE Verified 02/05/19 14:59 ABDOMINAL PAIN metformin Allergy Intermediate SEVERE Verified 02/05/19 14:59 ABDOMINAL PAIN metronidazole [From Flagyl] Allergy Intermediate Hives Verified 02/05/19 14:59 nitrofurantoin Allergy Intermediate Unknown Verified 02/05/19 14:59 oxycodone Allergy Intermediate SEVERE Verified 02/05/19 14:59 WITHDRAWAL SYMPTOMS WHEN TRYING TO STOP TAKING ranitidine Allergy Intermediate Unknown Verified 02/05/19 14:59 repaglinide Allergy Intermediate Unknown Verified 02/05/19 14:59 rosiglitazone Allergy Intermediate Unknown Verified 02/05/19 14:59 DENILSON Inhibitors Allergy Unknown unknown to Unverified 02/05/19 14:59 pt atropine Allergy Unknown Unknown Verified 02/05/19 14:59 Histamine H2 Inhibitors Allergy Unknown unknown to Unverified 02/05/19 14:59 pt Iodinated Contrast Media Allergy Unknown JULY 2017 Verified 02/05/19 14:59 [facility] -- TOLERATED WITH SLOW INFUSION PER PATIENT phenazopyridine Allergy Unknown Unknown Verified 02/05/19 14:59 carvedilol Allergy Unknown Verified 02/05/19 14:59 clonazepam [From Klonopin] Allergy Unknown Verified 02/08/19 10:26 doxycycline Allergy Unknown Verified 02/08/19 10:26 furosemide [From Lasix] Allergy Unknown Verified 02/08/19 10:26 tolterodine [From Detrol] Allergy Unknown Verified 02/08/19 10:26 carbamazepine AdvReac Severe Unknown Verified 02/05/19 14:59 valproic acid AdvReac Severe Unknown Verified 02/05/19 14:59 albuterol AdvReac Intermediate UNK Verified 02/05/19 14:59 olanzapine AdvReac Intermediate Unknown Verified 02/05/19 14:59 paroxetine AdvReac Intermediate DID NOT Verified 02/05/19 14:59 HELP rofecoxib AdvReac Intermediate Unknown Verified 02/05/19 14:59 temazepam AdvReac Intermediate DID NOT Verified 02/05/19 14:59 HELP diazepam AdvReac Mild SEDATION Verified 02/05/19 14:59 LASTING TOO LONG ibuprofen AdvReac Mild Unknown Verified 02/05/19 14:59 lisinopril AdvReac Mild UNK Verified 02/05/19 14:59 mirtazapine AdvReac Mild Unknown Verified 02/05/19 14:59 Consultations 02/05/19 17:15 Consult Case Management - Discharge Planning Routine Consult Neurology Routine 02/05/19 17:17 ED Decision to Admit Stat 02/08/19 10:13 Consult Saturator Tender Stat Ordered Studies 02/05/19 13:20 CT head/brain wo con Stat 02/05/19 17:15 MR angio head wo con Urgent MR angio neck wo/w con Routine MR brain wo/w con Routine 02/08/19 09:08 CT head/brain wo con Stat 02/08/19 11:00 MR brain wo con Routine Hospital Course (1) Left pontine stroke: This patient is a 78-year-old female with history of diabetes, hypertension, CKD presenting with sudden onset of stabbing headache pains and numbness on the left side of body with right facial droop and weakness in bilateral legs causing a fall on the ground. Upon admission, she has very mild rightward tongue deviation as well as diminished sensation to light touch on the left upper and lower extremity and diminished strength in the right upper extremity, mild dysarthria per son. Concern for CVA and she was admitted. TPA not initiated secondary to duration of symptoms. 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 BPs have been significantly labile anywhere from 110 systolic to 227 systolic much improved on 02/10 and 02/11, only with diplopia, strength and sensation intact bilaterally walking well BP better on Toprol, 160 systolic - Consult speech, PT, OT for supportive management - Follow up with PCP for assistance with outpatient goals (BP <135/85, LDL <70, A1c <7) - Follow up in neurology clinic in 6-8 weeks For secondary Stroke Prevention: - Antiplatelet: Continue ASA 81mg po daily -Started Plavix 75mg daily x30 days and then likely will go to just aspirin 81 mg daily after that-to be determined as outpatient by neurology -Patient has a history of severe myalgias with atorvastatin she believes in the past- started pravastatin 40 mg daily and tolerating-we will increase to 80 mg daily -Plan is for discharge to [facility] today with goal to return to home (2) IDDM (insulin dependent diabetes mellitus): Patient with type 2 diabetes, insulin dependence, with peripheral neuropathy. Last hemoglobin A1c on 01/08/2019 = 7.6. At home, patient administered 60 to 64 units of Basaglar/insulin glargine nightly. She reports fairly frequent episodes of low blood sugar that occurred during the night. Is unable to provide further details as to how frequently and how low. Seen by nurse special educator here and recommends lowering basal dose of insulin at home to prevent morning hypoglycemia Was having lower AM glucose and hyperglycemia in the evenings which is now improved with changing dosing of Lantus and splitting it into a morning and evening dose -Continue Lantus 30 units qAM and 22 units qPM -Insulin sliding scale -continue Accu-Cheks -ADA diet monitor for hypoglycemia, no episodes for several days (3) Hypertension: Blood pressure better controlled for 48 hours continue Toprol 50mg daily for next 2-3 weeks okay with pressures 140-160 systolic [facility]p goal will be BP < 135/80 (4) CKD (chronic kidney disease): Chronic kidney disease, stage 3 BUN and creatinine at baseline. Electrolytes normal making adequate urine (5) Neuropathy: Chronic. Stable. Continue gabapentin 600 mg p.o. 3 times daily (6) Elevated troponin level: Patient with chronic elevation of troponin. Typically 0.05. Troponin then went to 0.107 and then down to 0.095 on repeat testing. She denies chest pain. EKG with no acute ischemic changes and no significant change from prior studies. Telemetry monitoring Echo ordered as part of stroke work-up without wall motion abnormalities (7) Morbid obesity: BMI 40.6 -Encouraged exercise, weight loss Total Time Total Time Spent Total Time Spent (In Minutes): 32 minutes Total Time Includes: Examination of the Patient, Discharge Planning, Medication Reconciliation and Communication With Other Providers Discharge Plan Discharge Items Patient Disposition: Transfer Inpatient Rehab Fac Reason For Visit: STROKE LIKE SYMPTOMS Discharge Diagnosis: Left pontine stroke Condition on Discharge: Good Goals: improve strength and mobility improve speech improve swallowing Activity: Resume your previous activity Non-emergency contact: Primary Care Provider and Neurologist Call non-emergency contact if: you have any medication questions, your symptoms worsen and you have a fever Follow-up/Referrals: Darwin Lugo III, CRNP [Primary Care Provider] - 02/13/19 9:20 am (Follow-up appointment with Dr. Darwin Lugo scheduled for 02/13/2019 at 09:20am. Please call his office if this date and time does not work for you.) Nahed Booker MD [Physician] - 03/11/19 9:00 am (Follow-up appt with Dr. Nahed Booker (Neurology) 03/11/2019 at 9:20am. Please call her office if this date and time does not work for you. You are also placed on a cancellation list if any availability comes up sooner, her office will call you. Please, call the office if you have any questions. The phone number [phone].) Diet: Carb Consistent or DM2 and Heart Healthy Addtl Attending Provider Instructions: Medications: - PLAVIX: take 75mg daily for thirty days then stop - ASPIRIN: 81mg daily, this is a reduction from 162mg daily - BASAGLAR: please note that dosing is now 30 units in the morning and 22 units in the evening - TOPROL: please take 50mg in the morning now instead of evening - PRAVASTATIN: 80mg daily This patient is a 78-year-old female with history of diabetes, hypertension, CKD presenting with sudden onset of stabbing headache pains and numbness on the left side of body with right facial droop and weakness in bilateral legs causing a fall on the ground. Upon admission, she has very mild rightward tongue deviation as well as diminished sensation to light touch on the left upper and lower extremity and diminished strength in the right upper extremity, mild dysarthria per son. Concern for CVA and she was admitted. TPA not initiated secondary to duration of symptoms. She also had diplopia x2 weeks prior to stroke symptoms MRI confirmed left pontine paramedian subacute to acute lacunar infarct MRA head and neck negative Echocardiogram without PFO and without thrombus Telemetry continues with normal sinus rhythm Has risk factors of diabetes, hypertension, previous [id number] smoker For secondary Stroke Prevention: - Antiplatelet: Continue ASA 81mg po daily -Started Plavix 75mg daily x30 days and then likely will go to just aspirin 81 mg daily after that-to be determined as outpatient by neurology -Patient has a history of severe myalgias with atorvastatin she believes in the past- started pravastatin 40 mg daily and tolerating-we will increase to 80 mg daily Risk Factors for Stroke: You can reduce your chances of stroke by working with your medical provider to adopt a healthy lifestyle. Some specific ways to lower your chance of stroke are: * If you are a smoker, now is the time to stop smoking cigarettes * If you are diabetic, improve the control of your blood sugars * Avoid excessive amounts of alcohol * Control high blood pressure * Lose weight if you are overweight * Be sure to lead an active lifestyle * Eat a healthy diet low in salt, cholesterol and fat You should know about other risk factors for stroke that you are unable to control. These include: * Age 55 years or older * Male gender * Certain racial groups: , or / * Family History of Stroke, Mini stroke or Heart Attack * Sickle Cell Disease Follow Up: It is important for you to keep your follow up appointments with your medical provider. Who to Call and When: Medical Emergencies: Call 911 immediately if you experience any of the following warning signs and symptoms of Stroke: * Sudden numbness or weakness of the face, arm or leg, especially on one side of the body * Sudden confusion, trouble speaking or understanding * Sudden trouble seeing in one or both eyes * Sudden trouble walking, dizziness, loss of balance or coordination * Sudden severe headache with no cause Do not delay calling 911 if you experience any warning signs or symptoms of a stroke. Delay in seeking medical attention may affect what treatments can be given to you. . Pending Studies at Discharge: No Stand-Alone Forms: My [facility] Skilled Items Patient informed of condition?: Yes DNR: No Discharge Level of Care: Acute rehab Communicable Disease: No Discharge Prognosis: Stable Lines: None Urinary Catheter: No Medications and DC Order Prescriptions: New pravastatin 40 mg Tablet 80 mg PO DAILY@1700 30 Days Qty: 60 RF: 3 metoprolol succinate 50 mg Tablet Extended Release 24 Hr 50 mg PO QAM 30 Days Qty: 30 RF: 0 clopidogrel 75 mg Tablet 75 mg PO QAM 30 Days Qty: 30 RF: 0 aspirin [Ecotrin Low Strength] 81 mg Tablet,Delayed Release (Dr/Ec) 81 mg PO QAM 30 Days Qty: 30 RF: 0 Basaglar KwikPen U-100 Insulin 100 unit/mL (3 mL) insulin pen 30 units SQ QAM 30 Days Qty: 9 RF: 3 Basaglar KwikPen U-100 Insulin 100 unit/mL (3 mL) insulin pen 22 units SQ QPM 30 Days Qty: 6.6 RF: 0 Continued escitalopram oxalate 20 mg tablet 20 mg PO QPM Qty: 30 RF: 5 gabapentin 600 mg tablet 600 mg PO TID 90 Days Qty: 270 RF: 1 cholecalciferol (vitamin D3) 5,000 unit capsule 5,000 units PO DAILY Qty: 30 RF: 12 epinephrine 0.3 mg/0.3 mL auto-injector 0.3 ml IM UD PRN (Reason: anaphylaxis) Qty: 2 RF: 1 Novolog Flexpen U-100 Insulin 100 unit/mL (3 mL) insulin pen See Rx Instructions SQ BID 90 Days Qty: 15 RF: 4 nitroglycerin 0.4 mg tablet, sublingual 0.4 mg SL Q5M PRN (Reason: chest pain) 90 Days Qty: 30 RF: 3 sodium chloride [Saline Nasal] 0.65 % aerosol,spray 1 sprays INTNAS Q3H PRN (Reason: dry nasal passages) 90 Days Qty: 30 RF: 1 azelastine 137 mcg (0.1 %) aerosol,spray 2 sprays INTNAS BID Qty: 30 RF: 0 Systane Balance 0.6 % drops 1 drops OP BID PRN (Reason: Dry Eyes) RF: 0 chlorhexidine gluconate [Periogard] 0.12 % mouthwash 15 ml mucous membrane BID Qty: 15 RF: 0 biotin 10,000 mcg capsule 0 mcg PO DAILY RF: 0 fluticasone propionate 50 mcg/actuation spray,suspension 2 sprays INTNAS BID RF: 0 PreserVision AREDS [id number],160-113-100 [id number] Tablet 1 tab PO BID RF: 0 One-A-Day Women's 50 Plus 400-20 mcg Tablet 1 tab PO QAM RF: 0 Discontinued metoprolol succinate 50 mg tablet extended release 24 hr 50 mg PO HS Qty: 90 RF: 3 Basaglar KwikPen U-100 Insulin 100 unit/mL (3 mL) insulin pen 60 - 64 units SQ HS Qty: 3 RF: 4 aspirin [Adult Aspirin Regimen] 81 mg tablet,delayed release (DR/EC) 162 mg PO QPM RF: 0 Discharge Orders: Discharge Order (Routine); Ordered 02/11/19 Ordered By: Reji Mijares Admission Data Admit Date/Time: 02/05/19 15:50 Attending Provider: Reji Mijares Admit Provider: Kayli Monae Primary Care Provider: Darwin Lugo III Other Providers: [facility] ; Nahed Booker ; Kayli Monae ; Sea Ralph Other Interventions: Discharge Summary Assessment (RN) Last Done: 02/11/19 11:15 DC Date/Time DO NOT enter until pt leaves facility: 02/11/19 13:49
== END 2019-02-11 13:49 | DRG 65 ==
LOC: ED 13:08 → 2E 15:50 → SUATTDRO 15:50 → 2E 16:31 → 1E 02-08 09:53 → 2N 02-10 09:11

== ENCOUNTER 2019-03-21 20:24 | Inpatient (IN) ==
[2019-03-21] MEDS ORDERED: ALBUTEROL 0.083% NEBU SOLN 3 ML VIAL ONE (20:30)
[2019-03-21] MEDS ORDERED: ALBUT/IPRATROP 3MG/0.5MG NEB 3 ML VIAL ONE (20:30)
[2019-03-21] MEDS ORDERED: SODIUM CHLORIDE 0.9% 500 ML IV ONE (20:35)
[2019-03-21] MEDS ORDERED: ALBUT/IPRATROP 3MG/0.5MG NEB 3 ML VIAL NEB ONE (21:00)
[2019-03-21] MEDS ORDERED: DEXAMETHASONE SOD PHOSPHATE 10 MG in SYRINGE 0 ML IV STA (21:00)
--- NOTE | 2019-03-21 21:05 | XRay Report ---
XR chest 1V portable HISTORY: 78 years-old Female Chest Pain acute atypical chest pain COMPARISON: Chest radiograph 03/19/2019 TECHNIQUE: Portable AP view of the chest FINDINGS: Cardiac silhouette is upper limits of normal in size. Calcified plaque the thoracic aortic arch. Mild interstitial coarsening of the lung bases. Lungs are hyperinflated. There is mild left hemidiaphragm atic elevation which is new from prior with minimal subsegmental left basilar densities. No pneumotho rax, large pleural effusion or overt pulmonary edema. Degenerative changes of the shoulders and spine . IMPRESSION: Hyperinflation with new left hemidiaphragmatic elevation and left basilar opacities sugge stive of probable atelectasis. ACT 112: Negative or not required by law. The above report was generated using voice recognition software. It may contain grammatical, syntax o r spelling errors. Electronically signed by: Forrest Pitts M.D. 03/21/2019 9:04 PM
[2019-03-21] MEDS ORDERED: DEXAMETHASONE **PF** INJ 10 MG/ML VIAL ONE (22:01)
[2019-03-21] MEDS: ACETAMINOPHEN 1,000 MG/100 ML VIAL IV STA ×2 (22:02→22:07)
[2019-03-21 22:12] LABS: Basophils # (auto) 0.01 K/uL (0-0.2); Basophils % (auto) 0.1 %; Eosinophils # (auto) 0.05 K/uL (0-0.5); Eosinophils % (auto) 0.6 %; Hematocrit (blood only) 38.3 % (37-47); Hemoglobin 12.1 g/dL (12.0-16.0); Immature Granulocytes # (auto) 0.03 K/uL (0.00-0.02); Immature Granulocytes % (auto) 0.3 %; Lymphocytes # (auto) 1.15 K/uL (1.2-3.4); Lymphocytes % (auto) 12.7 %; Mean Corpuscular Hemoglobin 24.5 pg (25-34); Mean Corpuscular Hgb Conc 31.6 g/dL (32-36); Mean Corpuscular Volume 77.5 fL (80-100); Mean Platelet Volume 8.8 fL (7.4-10.4); Monocytes % (auto) 5.5 %; Neutrophils # (auto) 7.31 K/uL (1.4-6.5); Neutrophils % (auto) 80.8 %; Platelet Count 110 K/uL (130-400); RDW Coefficient of Variation 13.8 % (11.5-14.5); RDW Standard Deviation 38.8 fL (36.4-46.3); Red Blood Count 4.94 M/uL (4.2-5.4); White Blood Count 9.05 K/uL (4.8-10.8)
[2019-03-21] MEDS ORDERED: cefTRIAXone SODIUM 2,000 MG/70 ML BAG IV STA (22:14)
[2019-03-21] MEDS ORDERED: AZITHROMYCIN 250 MG TAB PO ONE (22:14)
[2019-03-21 22:17] LABS: Base Excess VBG 4.7 mEq/L; HCO3 VBG 32 mmol/L; PCO2 VBG 60 mmHg (38-50); PO2 VBG 25 mmHg; pH VBG 7.34 (7.36-7.41)
[2019-03-21 22:18] LABS: Oxygen Saturation VBG < 60.0 %
[2019-03-21 22:51] LABS: Albumin Globulin Ratio 0.7 (0.9-2); Albumin Level 3.2 gm/dl (3.4-5.0); BUN Creatinine Ratio 17.6 (10-20); Bilirubin,Total 0.8 mg/dl (0.2-1); Calcium 8.9 mg/dl (8.5-10.1); Creatinine Clr Calc Pharmacy 39.8 ml/min; Est GFR (African American) 46.4; Globulin 4.9 gm/dl (2.5-4.0); Magnesium 1.9 mg/dl (1.8-2.4); Phosphorus 3.1 mg/dl (2.5-4.9); Potassium 4.2 mmol/L (3.5-5.1); Thyroid Stimulating Hormone 1.37 uIu/ml (0.300-4.500); Total Protein 8.1 gm/dl (6.4-8.2)
[2019-03-21 22:53] LABS: Troponin I 0.089 ng/ml (0-0.045)
--- NOTE | 2019-03-21 23:26 | Emergency Department Note ---
Entered by Dorie Griffiths acting as a scribe for History of Present Illness General Chief complaint: Shortness of Breath/Dyspnea Stated complaint: Shortness of Breath Time Seen by Provider: 03/21/19 20:34 History of Present Illness Provider complaint: shortness of breath Onset (ago): day(s) 8 Pain Consistency: + other (worsening) Quality: + other (shortness of breath) Relieved By: + other (denies relief from inhaler) Associated symptoms: + other (diagnosed with asthma 7 days ago, does not use oxygen at home, CPAP at night for sleep apnea); no fever/chills The patient is a 78 year old female who presents to the ED with complaints of worsening shortness of breath that started 8 days ago. The patient states that she saw her PCP 7 days ago and was diagnosed with asthma. The patient states that she has tried using her inhaler but it does not help. The patient states that she does not use oxygen at home, but she does use CPAP at night for sleep apnea. The patient denies having a fever. Home Medications Home Medications Medication Instructions Recorded Confirmed Type Ocular Lubricant Shameka 1 drp OPB BID PRN 03/21/19 03/21/19 History Vitamin D Tab 5,000 unit PO DAILY 03/21/19 03/21/19 History acetaminophen [Tylenol Extra 500 mg PO Q4 PRN 03/21/19 03/21/19 History Strength] albuterol sulfate [Ventolin HFA] 1 - 2 puff INHALATION Q4 PRN 03/21/19 03/21/19 History aspirin [Aspir-81] 81 mg PO DAILY 03/21/19 03/21/19 History azithromycin [Zithromax Z-Andres] 250 mg PO .DAILY FOR 4 DAYS 03/21/19 03/21/19 History biotin 10,000 mcg SUBLINGUAL DAILY 03/21/19 03/21/19 History camphor-methyl salicyl-menthol 1 ea TOPICAL QAM PRN 03/21/19 03/21/19 History [Salonpas Deep Relieving] clopidogrel [Plavix] 75 mg PO DAILY 03/21/19 03/21/19 History docusate sodium [Colace] 100 mg PO BID 03/21/19 03/21/19 History epinephrine 0.3 mg IM UD PRN 03/21/19 03/21/19 History escitalopram oxalate 20 mg PO QPM 03/21/19 03/21/19 History fluticasone propionate [Flonase 2 spray INTRANASAL BID 03/21/19 03/21/19 History Allergy Relief] gabapentin [Neurontin] 600 mg PO BID 03/21/19 03/21/19 History insulin aspart U-100 [Novolog 0 unit SUBCUT TIDM 03/21/19 03/21/19 History Flexpen U-100 Insulin] insulin aspart U-100 [Novolog 4 unit SUBCUT .Q BREAKFAST 03/21/19 03/21/19 History U-100 Insulin aspart] insulin aspart U-100 [Novolog 6 unit SUBCUT BIDM 03/21/19 03/21/19 History U-100 Insulin aspart] insulin glargine [Basaglar KwikPen 32 unit SUBCUT BID 03/21/19 03/21/19 History U-100 Insulin] loperamide [Imodium A-D] 2 mg PO UD PRN 03/21/19 03/21/19 History melatonin 10 mg PO HS PRN 03/21/19 03/21/19 History metoprolol succinate [Toprol XL] 50 mg PO DAILY 03/21/19 03/21/19 History mometasone [Asmanex Twisthaler] 1 inh INHALATION BID 03/21/19 03/21/19 History pantoprazole [Protonix] 40 mg PO DAILY 03/21/19 03/21/19 History pravastatin 80 mg PO DAILY 03/21/19 03/21/19 History sennosides-docusate sodium [Senna 1 tab-cap PO DAILY 03/21/19 03/21/19 History Plus] Allergies Allergy/AdvReac Type Severity Reaction Status Date / Time Bactrim Allergy Severe THROAT Verified 05/14/15 15:22 CLOSED meperidine Allergy Severe almost Verified 03/21/19 22:50 "closed throat" midodrine Allergy Severe "almost Verified 03/21/19 22:50 closed throat" Penicillins Allergy Severe ANAPHYLAXIS Verified 03/21/19 22:50 Quinolones Allergy Severe TOLERATED Verified 03/21/19 22:50 LEVAQUIN IV - ELIO 07 sulfamethoxazole Allergy Severe THROAT Verified 03/18/19 09:03 CLOSED trimethoprim Allergy Severe THROAT Verified 03/18/19 09:03 CLOSED diphenoxylate Allergy Intermediate Unknown Verified 03/18/19 09:03 glyburide Allergy Intermediate SEVERE Verified 03/18/19 09:03 ABDOMINAL PAIN metformin Allergy Intermediate SEVERE Verified 03/18/19 09:03 ABDOMINAL PAIN metronidazole [From Flagyl] Allergy Intermediate Hives Verified 03/18/19 09:03 nitrofurantoin Allergy Intermediate Unknown Verified 03/21/19 22:50 oxycodone Allergy Intermediate SEVERE Verified 03/18/19 09:03 WITHDRAWAL SYMPTOMS WHEN TRYING TO STOP TAKING ranitidine Allergy Intermediate Unknown Verified 03/18/19 09:03 repaglinide Allergy Intermediate Unknown Verified 03/21/19 22:50 rosiglitazone Allergy Intermediate Unknown Verified 03/21/19 22:50 DENILSON Inhibitors Allergy Unknown unknown to Verified 03/18/19 09:03 pt atropine Allergy Unknown Unknown Verified 03/18/19 09:03 Histamine H2 Inhibitors Allergy Unknown unknown to Verified 03/18/19 09:03 pt Iodinated Contrast Media Allergy Unknown JULY 2017 Verified 03/18/19 09:03 [facility] -- TOLERATED WITH SLOW INFUSION PER PATIENT phenazopyridine Allergy Unknown Unknown Verified 03/21/19 22:50 carvedilol Allergy Unknown Verified 03/21/19 22:50 clonazepam [From Klonopin] Allergy Unknown Verified 03/18/19 09:03 doxycycline Allergy Unknown Verified 03/21/19 22:50 furosemide [From Lasix] Allergy Unknown Verified 03/21/19 22:50 tolterodine [From Detrol] Allergy Unknown Verified 03/18/19 09:03 carbamazepine AdvReac Severe Unknown Verified 03/18/19 09:03 valproic acid AdvReac Severe Unknown Verified 03/21/19 22:50 albuterol AdvReac Intermediate UNK Verified 03/21/19 22:50 olanzapine AdvReac Intermediate Unknown Verified 03/18/19 09:03 paroxetine AdvReac Intermediate DID NOT Verified 03/18/19 09:03 HELP rofecoxib AdvReac Intermediate Unknown Verified 03/21/19 22:50 temazepam AdvReac Intermediate DID NOT Verified 03/21/19 22:50 HELP diazepam AdvReac Mild SEDATION Verified 03/18/19 09:03 LASTING TOO LONG ibuprofen AdvReac Mild Unknown Verified 03/21/19 22:50 lisinopril AdvReac Mild UNK Verified 03/18/19 09:03 mirtazapine AdvReac Mild Unknown Verified 03/21/19 22:50 Past Med/Surg History Medical History Admitted to intensive care unit Anxiety Arrhythmia "AN EXTRA HEARTBEAT" Asthma Breast cancer UNSURE WHICH SIDE WAS CANCER. Chronic back pain Chronic neck pain TO HAVE NECK SURGERY WITH DR PATEL CKD (chronic kidney disease) (Chronic) Depression Difficult airway for intubation Dysphagia History of benign brain tumor (Chronic) History of esophageal dilatation History of spinal stenosis (Chronic) History of uterine cancer (Resolved) "Postmenopausal vaginal bleeding Endometrial biopsy revealing endometrioid adenocarcinoma Status post total abdominal hysterectomy and bilateral salpingo-oophorectomy Stage pT2 pN0 M0 Status post completion of radiation therapy with external beam radiation as well as 2 HDR treatments. 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) Uterine cancer RICHARD BSO Surgical History History of cardiac catheterization (Resolved) NO STENTS History of cataract surgery (Resolved) BILATERAL History of cholecystectomy History of colonoscopy History of esophagogastroduodenoscopy (EGD) History of knee surgery (Resolved) ARTHROSCOPY LEFT KNEE History of mastectomy (Resolved) BILATERAL History of total abdominal hysterectomy (Resolved) BSO Family History Mother Myocardial infarction Social History Preferred Language: [place] Communication Ability: Effective Visual Impairment: Partially Limited Hearing Ability: Hard of Hearing Chemistry Professor Required: No Beliefs That Will Affect Care: None marital status: / Current Living Situation: Personal Care Facility Current Living Situation Comment: [facility] [place] current occupational status: retired Other Information That Helps Us Care for You: No Feels Safe at Home: Yes Safety Concerns: Feels Safe At This Time Smoking Status: Unknown if ever smoked Hx Alcohol Use: No Hx Substance Use: No Childhood Exposure to Second-Hand Smoke: No Dental Care, Regularly: Yes Physical Activity Frequency: Does not Exercise Seatbelt Use: always Sunscreen Use: Yes Review of Systems See HPI for pertinent positives & negatives. and A total of 10 systems reviewed and were otherwise negative Physical Exam Vital Signs Vital Signs - 24 hr 03/21/19 20:39 03/21/19 20:41 03/21/19 20:47 Temperature 38.3 C H Temperature Source Oral Pulse Rate 110 H 103 H Pulse Rate [Apical] Pulse Rate from SpO2 Sensor 103 H Respiratory Rate 22 24 Respiratory Effort / Characteristics Non-Labored Respiratory Depth Normal Blood Pressure 205/100 H 205/100 H Blood Pressure Mean 135 157 Pulse Oximetry 92 93 91 Oxygen Delivery Method Room Air Room Air Sepsis Recent Fever Within 48 Hours No Sepsis New/Unexplained Change in Mental Status No Sepsis Action Taken by Nursing No Action Required 03/21/19 21:00 03/21/19 21:01 03/21/19 21:30 Temperature Temperature Source Pulse Rate 100 H 98 H 102 H Pulse Rate [Apical] Pulse Rate from SpO2 Sensor 100 H 99 H 102 H Respiratory Rate 22 22 20 Respiratory Effort / Characteristics Respiratory Depth Blood Pressure 211/123 H Blood Pressure Mean 152 Pulse Oximetry 92 91 98 Oxygen Delivery Method Sepsis Recent Fever Within 48 Hours Sepsis New/Unexplained Change in Mental Status Sepsis Action Taken by Nursing 03/21/19 21:45 03/21/19 22:00 03/21/19 22:30 Temperature Temperature Source Pulse Rate 112 H 116 H Pulse Rate [Apical] 105 H Pulse Rate from SpO2 Sensor 112 H 116 H Respiratory Rate 16 25 H 29 H Respiratory Effort / Characteristics Non-Labored Spontaneous Respiratory Depth Blood Pressure Blood Pressure Mean Pulse Oximetry 97 100 100 Oxygen Delivery Method Room Air Sepsis Recent Fever Within 48 Hours Sepsis New/Unexplained Change in Mental Status Sepsis Action Taken by Nursing 03/21/19 23:00 03/21/19 23:06 03/21/19 23:30 Temperature Temperature Source Pulse Rate 122 H 114 H 114 H Pulse Rate [Apical] Pulse Rate from SpO2 Sensor 118 H 114 H 115 H Respiratory Rate 22 22 23 Respiratory Effort / Characteristics Respiratory Depth Blood Pressure 180/74 H 182/96 H Blood Pressure Mean 127 131 Pulse Oximetry 93 94 91 Oxygen Delivery Method Sepsis Recent Fever Within 48 Hours Sepsis New/Unexplained Change in Mental Status Sepsis Action Taken by Nursing 03/21/19 23:31 03/21/19 23:57 03/22/19 00:00 Temperature Temperature Source Pulse Rate 115 H 110 H 105 H Pulse Rate [Apical] Pulse Rate from SpO2 Sensor 114 H 110 H 106 H Respiratory Rate 20 29 H 24 Respiratory Effort / Characteristics Respiratory Depth Blood Pressure 155/97 H 190/106 H Blood Pressure Mean 109 141 Pulse Oximetry 90 91 92 Oxygen Delivery Method Sepsis Recent Fever Within 48 Hours Sepsis New/Unexplained Change in Mental Status Sepsis Action Taken by Nursing 03/22/19 00:01 03/22/19 00:30 03/22/19 00:31 Temperature Temperature Source Pulse Rate 107 H 105 H 104 H Pulse Rate [Apical] Pulse Rate from SpO2 Sensor 107 H 105 H 104 H Respiratory Rate 25 H 19 16 Respiratory Effort / Characteristics Respiratory Depth Blood Pressure 125/110 H Blood Pressure Mean 117 Pulse Oximetry 91 91 91 Oxygen Delivery Method Sepsis Recent Fever Within 48 Hours Sepsis New/Unexplained Change in Mental Status Sepsis Action Taken by Nursing GENERAL: Awake, alert, ill-appearing, in mild respiratory distress, BMI is 39.8 HENT: Normocephalic, atraumatic. Oropharynx with dry mucous membranes and otherwise unremarkable. EYES: Normal conjunctiva. Sclera non-icteric. NECK: Supple. No nuchal rigidity. FROM. No JVD. RESPIRATORY: Diminished breath sounds throughout with scattered wheezes. Labored breathing with accessory muscle use. CARDIAC: Tachycardic rate, normal rhythm. Extremities warm and well perfused. Pulses equal. ABDOMEN: Soft, non-distended. No tenderness to palpation. No rebound or guarding. No masses. RECTAL: Deferred. MUSCULOSKELETAL: Chest examination reveals no tenderness. The back is sym metrical on inspection without obvious abnormality. There is no CVA tenderness to palpation. No joint edema. LOWER EXTREMITIES: Calves are equal size bilaterally and non-tender. No edema. No discoloration. NEURO: Normal sensorium. No sensory or motor deficits noted. SKIN: No rash or jaundice noted. Course Course 2052: Past medical records reviewed. The patient was evaluated in room C03. A complete history and physical exam was performed. 2246: I discussed the patient's case with Dr. Langley [facility] Hospitalist. She will evaluate the patient for further management. Consultations Consultation #1: I discussed the patient's case with Dr. Langley [facility] Hospitalist. She will evaluate the patient for further management. Time: 22:47 Administered Medications Sodium Chloride (Nss 1000ml) 1,000 mls @ 125 mls/hr IV .Q8H SHARMILA Stop: 04/21/19 01:15 Last Infusion: 03/22/19 03:45 Dose: 125 mls/hr Documented by: [id number] Infusion: 03/22/19 02:43 Dose: 0 mls/hr Documented by: [id number] Admin: 03/22/19 01:33 Dose: 125 mls/hr Documented by: [id number] Discontinued Medications Albuterol (Duoneb) 12 ml NEB ONE ONE Stop: 03/21/19 21:01 Last Admin: 03/21/19 21:44 Dose: 12 ml Documented by: [id number] Azithromycin (Zithromax) 500 mg PO NOW ONE Stop: 03/21/19 22:15 Last Admin: 03/21/19 23:02 Dose: 500 mg Documented by: [id number] Dexamethasone Sodium Phosphate (Decadron Pf) Confirm Administered Dose 10 mg .ROUTE .STK-MED ONE Stop: 03/21/19 22:02 Last Admin: 03/21/19 22:03 Dose: 10 mg Documented by: [id number] Sodium Chloride (Nss) 500 mls @ 999 mls/hr IV .Q31M ONE Stop: 03/21/19 21:05 Last Infusion: 03/21/19 23:04 Dose: 0 mls/hr Documented by: [id number] Admin: 03/21/19 22:02 Dose: 999 mls/hr Documented by: [id number] Acetaminophen (Ofirmev) 1,000 mg in 100 mls @ 400 mls/hr IV NOW STA Stop: 03/21/19 21:14 Last Admin: 03/21/19 22:07 Dose: Not Given Documented by: [id number] Dexamethasone Sodium Phosphate (10 mg/ Syringe) 2.5 mls @ 1 mls/min IV NOW STA Stop: 03/21/19 21:02 Last Admin: 03/21/19 22:03 Dose: Not Given Documented by: [id number] Ceftriaxone Sodium (Rocephin) 2,000 mg in 70 mls @ 140 mls/hr IV NOW STA Stop: 03/21/19 22:43 Last Infusion: 03/22/19 00:12 Dose: 0 mls/hr Documented by: [id number] Admin: 03/21/19 23:02 Dose: 140 mls/hr Documented by: [id number] Sodium Chloride (Nss 1000ml) 1,000 mls @ 999 mls/hr IV .Q1H1M [facility] Stop: 03/22/19 03:14 Last Infusion: 03/22/19 03:46 Dose: 0 mls/hr Documented by: [id number] Admin: 03/22/19 02:40 Dose: 999 mls/hr Documented by: [id number] Critical Care Time Critical Care Time: Yes Total Critical Care Time: 35 I have personally spent 35 minutes of critical care time in the direct management of this patient. This includes bedside care, interpretation of diagnostic studies, and testing, discussion with consultants, patient, and family members, and other required patient management activities. This 35 minutes is in excess of all separately billable procedures. Medical Decision Making Differential Diagnosis Differential diagnosis: Etiologies such as infections, reactive airway disease, COPD, pneumonia, pleural effusion, pulmonary edema, ARDS, pneumothorax, CHF, cardiac ischemia, cardiac tamponade, dysrhythmia, anemia, pulmonary embolism, musculoskeletal, gastrointe stinal process, as well as others were entertained. Medical Records Attestation: I reviewed the patient's medical records. Home Medications Current Medication List: was personally reviewed by me Laboratory Data Attestation: I reviewed the patient's lab results. Result diagrams: 03/22/19 03:29 03/22/19 03:29 Lab Results 03/21/19 03/21/19 03/21/19 Range/Units 22:00 22:00 22:00 WBC 9.05 (4.8-10.8) K/uL RBC 4.94 (4.2-5.4) M/uL Hgb 12.1 (12.0-16.0) g/dL Hct 38.3 (37-47) % MCV 77.5 L (80-100) fL MCH 24.5 L (25-34) pg MCHC 31.6 L (32-36) g/dL RDW Std Deviation 38.8 (36.4-46.3) fL RDW Coeff of Tim 13.8 (11.5-14.5) % Plt Count 110 L (130-400) K/uL MPV 8.8 (7.4-10.4) fL Immature Gran % (Auto) 0.3 % Neut % (Auto) 80.8 % Lymph % (Auto) 12.7 % [place] % (Auto) 5.5 % Eos % (Auto) 0.6 % Baso % (Auto) 0.1 % Immature Gran # (Auto) 0.03 H (0.00-0.02) K/uL Neut # (Auto) 7.31 H (1.4-6.5) K/uL Lymph # (Auto) 1.15 L (1.2-3.4) K/uL [place] # (Auto) 0.50 (0.11-0.59) K/uL Eos # (Auto) 0.05 (0-0.5) K/uL Baso # (Auto) 0.01 (0-0.2) K/uL VBG pH (7.36-7.41) VBG pCO2 (38-50) mmHg VBG pO2 mmHg VBG HCO3 mmol/L VBG O2 Saturation % VBG Base Excess mEq/L Barometric Pressure mm/Hg Sodium 139 (136-145) mmol/L Potassium 4.2 (3.5-5.1) mmol/L Chloride 102 (98-107) mmol/L Carbon Dioxide 31 (21-32) mmol/L Anion Gap 6.0 (3-11) BUN 23 H (7-18) mg/dl Creatinine 1.28 H (0.6-1.2) mg/dl Est Cr Clr Drug Dosing 39.8 ml/min Est GFR ( Amer) 46.4 Est GFR (Non-Af Amer) 40.0 BUN/Creatinine Ratio 17.6 (10-20) Glucose 175 H (70-99) mg/dl Lactate 3.1 H* (0.4-2.0) mmol/L Calcium 8.9 (8.5-10.1) mg/dl Phosphorus 3.1 (2.5-4.9) mg/dl Magnesium 1.9 (1.8-2.4) mg/dl Total Bilirubin 0.8 (0.2-1) mg/dl AST 22 (15-37) U/L ALT 21 (12-78) U/L Alkaline Phosphatase 74 (45-117) U/L Troponin I 0.089 H* (0-0.045) ng/ml Total Protein 8.1 (6.4-8.2) gm/dl Albumin 3.2 L (3.4-5.0) gm/dl Globulin 4.9 H (2.5-4.0) gm/dl Albumin/Globulin Ratio 0.7 L (0.9-2) Lipase 93 (73-393) U/L Procalcitonin (0-0.5) ng/ml TSH 1.370 (0.300-4.500) uIu/ml Influenza Type A (PCR) (Neg) Influenza Type B (PCR) (Neg) 03/21/19 03/21/19 03/21/19 Range/Units 22:00 22:00 23:10 WBC (4.8-10.8) K/uL RBC (4.2-5.4) M/uL Hgb (12.0-16.0) g/dL Hct (37-47) % MCV (80-100) fL MCH (25-34) pg MCHC (32-36) g/dL RDW Std Deviation (36.4-46.3) fL RDW Coeff of Tim (11.5-14.5) % Plt Count (130-400) K/uL MPV (7.4-10.4) fL Immature Gran % (Auto) % Neut % (Auto) % Lymph % (Auto) % [place] % (Auto) % Eos % (Auto) % Baso % (Auto) % Immature Gran # (Auto) (0.00-0.02) K/uL Neut # (Auto) (1.4-6.5) K/uL Lymph # (Auto) (1.2-3.4) K/uL [place] # (Auto) (0.11-0.59) K/uL Eos # (Auto) (0-0.5) K/uL Baso # (Auto) (0-0.2) K/uL VBG pH 7.34 L (7.36-7.41) VBG pCO2 60 H (38-50) mmHg VBG pO2 25 mmHg VBG HCO3 32 mmol/L VBG O2 Saturation < 60.0 % VBG Base Excess 4.7 mEq/L Barometric Pressure 746.4 mm/Hg Sodium (136-145) mmol/L Potassium (3.5-5.1) mmol/L Chloride (98-107) mmol/L Carbon Dioxide (21-32) mmol/L Anion Gap (3-11) BUN (7-18) mg/dl Creatinine (0.6-1.2) mg/dl Est Cr Clr Drug Dosing ml/min Est GFR ( Amer) Est GFR (Non-Af Amer) BUN/Creatinine Ratio (10-20) Glucose (70-99) mg/dl Lactate (0.4-2.0) mmol/L Calcium (8.5-10.1) mg/dl Phosphorus (2.5-4.9) mg/dl Magnesium (1.8-2.4) mg/dl Total Bilirubin (0.2-1) mg/dl AST (15-37) U/L ALT (12-78) U/L Alkaline Phosphatase (45-117) U/L Troponin I (0-0.045) ng/ml Total Protein (6.4-8.2) gm/dl Albumin (3.4-5.0) gm/dl Globulin (2.5-4.0) gm/dl Albumin/Globulin Ratio (0.9-2) Lipase (73-393) U/L Procalcitonin < 0.05 (0-0.5) ng/ml TSH (0.300-4.500) uIu/ml Influenza Type A (PCR) Neg for Influ A (Neg) Influenza Type B (PCR) Neg for Influ B (Neg) 03/22/19 Range/Units 00:06 WBC (4.8-10.8) K/uL RBC (4.2-5.4) M/uL Hgb (12.0-16.0) g/dL Hct (37-47) % MCV (80-100) fL MCH (25-34) pg MCHC (32-36) g/dL RDW Std Deviation (36.4-46.3) fL RDW Coeff of Tim (11.5-14.5) % Plt Count (130-400) K/uL MPV (7.4-10.4) fL Immature Gran % (Auto) % Neut % (Auto) % Lymph % (Auto) % [place] % (Auto) % Eos % (Auto) % Baso % (Auto) % Immature Gran # (Auto) (0.00-0.02) K/uL Neut # (Auto) (1.4-6.5) K/uL Lymph # (Auto) (1.2-3.4) K/uL [place] # (Auto) (0.11-0.59) K/uL Eos # (Auto) (0-0.5) K/uL Baso # (Auto) (0-0.2) K/uL VBG pH (7.36-7.41) VBG pCO2 (38-50) mmHg VBG pO2 mmHg VBG HCO3 mmol/L VBG O2 Saturation % VBG Base Excess mEq/L Barometric Pressure mm/Hg Sodium (136-145) mmol/L Potassium (3.5-5.1) mmol/L Chloride (98-107) mmol/L Carbon Dioxide (21-32) mmol/L Anion Gap (3-11) BUN (7-18) mg/dl Creatinine (0.6-1.2) mg/dl Est Cr Clr Drug Dosing ml/min Est GFR ( Amer) Est GFR (Non-Af Amer) BUN/Creatinine Ratio (10-20) Glucose (70-99) mg/dl Lactate 4.7 H* (0.4-2.0) mmol/L Calcium (8.5-10.1) mg/dl Phosphorus (2.5-4.9) mg/dl Magnesium (1.8-2.4) mg/dl Total Bilirubin (0.2-1) mg/dl AST (15-37) U/L ALT (12-78) U/L Alkaline Phosphatase (45-117) U/L Troponin I (0-0.045) ng/ml Total Protein (6.4-8.2) gm/dl Albumin (3.4-5.0) gm/dl Globulin (2.5-4.0) gm/dl Albumin/Globulin Ratio (0.9-2) Lipase (73-393) U/L Procalcitonin (0-0.5) ng/ml TSH (0.300-4.500) uIu/ml Influenza Type A (PCR) (Neg) Influenza Type B (PCR) (Neg) Imaging Data Radiologist's Impression: Radiology results as stated below per my review and the radiologist's interpretation: XR chest 1V portable HISTORY: 78 years-old Female Chest Pain acute atypical chest pain COMPARISON: Chest radiograph 03/19/2019 TECHNIQUE: Portable AP view of the chest FINDINGS: Cardiac silhouette is upper limits of normal in size. Calcified plaque the thoracic aortic arch. Mild interstitial coarsening of the lung bases. Lungs are hyperinflated. There is mild left hemidiaphragmatic elevation which is new from prior with minimal subsegmental left basilar densities. No pneumothorax, large pleural effusion or overt pulmonary edema. Degenerative changes of the shoulders and spine. IMPRESSION: Hyperinflation with new left hemidiaphragmatic elevation and left basilar opacities suggestive of probable atelectasis. ACT 112: Negative or not required by law. The above report was generated using voice recognition software. It may contain grammatical, syntax or spelling errors. Electronically signed by: Forrest Pitts M.D. 03/21/2019 9:04 PM ECG Data Attestation: I personally reviewed and interpreted this ECG as follows: Indication: + SOB/dyspnea Rate (beats per minute): 104 Rhythm: + sinus tachycardia ECG ST segments: + Nonspecific ST abnormalities; no ST elevation ECG Findings: + Other (QTC 454, QRS 76) Blood Pressure Blood Pressure Findings: Elevated blood pressure Blood Pressure Disposition: further management by hospitalist KEANU Narrative The patient is a pleasant 78-year-old woman with a past medical history of insulin-dependent diabetes, sleep apnea on home CPAP, asthma/COPD who presents emergency department with worsening cough congestion shortness of breath from the [facility] with associated fevers per HPI. On arrival patient is uncomfortable in mild respiratory distress, febrile to 38.2, tachycardic, tachyp neic. On exam patient has diminished breath sounds throughout with scattered wheezes. She was given continuous nebs and steroids. She was initially ordered for BiPAP given her work of breathing however she did improve after her initial treatment. EKG without overt acute ischemia. Chest x-ray suspicious for less left basilar infiltrate given the patient's fevers and respiratory symptoms. WBC is in normal limits. H/H within normal limits. Platelets 110 similar to prior range of values. VBG with pH of 7.34 with PCO2 slightly elevated at 60. Lactate is elevated at 3.1 however without metabolic acidosis on chemistry. Lactate possibly related to the patient's work of breathing or her repeat albuterol. Creatinine is 1.2 similar to prior range of values. Troponin 0 0.08 also similar to prior range of chronic elevations setting of the patient's CKD. Given the patient's fevers and dyspnea she was treated for pneumonia with ceftriaxone and azithromycin for now. Given her improvement, Pseudomonal and MNRSA coverage deferred at this time. Patient was agreeable with plan for admission. Case was discussed with Dr. Monae, [facility] hospitalist, who will evaluate the patient for admission. Impression & Plan Pneumonia, Respiratory failure, Elevated troponin level, Elevated lactic acid level Discharge Plan Visit Data *Final* Discharge Date/Time: 03/22/19 01:03 Chief Complaint: Shortness of Breath/Dyspnea Stated Complaint: Shortness of Breath ED Provider: Froy Clifton Discharge Problem: Pneumonia, Respiratory failure, Elevated troponin level, Elevated lactic acid level Patient Disposition: Admitted As Inpatient Discharge Instructions Interventions: ED Discharge Assessment Last Done: 03/22/19 01:03 Discharge Problem: Pneumonia Qualifiers: Pneumonia type: due to unspecified organism Laterality: unspecified laterality Lung location: unspecified part of lung Qualified Code(s): J18.9 - Pneumonia, unspecified organism Respiratory failure Qualifiers: Chronicity: unspecified Respiratory failure complication: unspecified whether with hypoxia or hypercapnia Qualified Code(s): J96.90 - Respiratory failure, unspecified, unspecified whether with hypoxia or hypercapnia The scribe's documentation has been prepared under my direction and personally reviewed by me in its entirety. I confirm that the note above accurately reflects all work, treatment, procedures, and medical decision making performed by me.
[2019-03-21 23:54] LABS: Influenza A virus by PCR Neg for Influ A (Neg); Influenza B virus by PCR Neg for Influ B (Neg)
--- NOTE | 2019-03-22 00:08 | History & Physical Report ---
Date of Service March 22, 2019 Assessment & Plan (1) Acute hypercapnic respiratory failure: Elyssa is a 78-year-old female with a past medical history of asthma, COPD, CKD, left-sided cerebellar stroke, stable meningioma, type 2 diabetes, CAMRON on CPAP, hypertension who presents with 1 week of wheezing and chest tightness and who was admitted for acute hypercarbic respiratory failure. Acute hypercarbic respiratory failure 2/2 CAP with a background of asthma and COPD CXR shows left opacities, left hemidiaphragm elevation No leukocytosis, lactate 3.1 Rocephin 1 g daily Azithromycin 500 mg load, 250 mg daily x 4 days Repeat lactate Methylprednisolone 40 mg twice daily BiPAP/CPAP as needed DuoNebs every 4 hours as needed No prior spirometry records available Continue mometasone INH DEB versus prerenal azotemia Baseline creatinine 1.1 acutely elevated to 1.28 -Fluid support, CAP treatment as above Minimize/avoid nephrotoxins BMP daily Elevated troponin History of persistently elevated troponins Troponins mildly elevated, 0.089 on admission Trend troponins x2 every 6 hours History of left paramedian pontine stroke Strabismus, decreased visual acuity, diplopia, mild dysdiadochokinesia appreciated on exam. No new/acute focal neurologic deficits with current admission per patient Continue Plavix/ASA DAPT Continue pravastatin 80 mg p.o. daily Hypertension Continue metoprolol 50 mg p.o. daily Lopressor 2.5 mg every 46 hours for SBP greater than 180 Per prior notes patient has exacerbation of hypotensive symptoms and deficits with SBP less than 120. Target BP goal [id number]. She reports she has multiple medication allergies, but cannot remember what they are. Does not believe she is on an DENILSON/arb, thinks this was due to allergies. 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 twice daily MiraLAX twice daily as needed FEN GI: Type II diabetic diet. IVFM LR 125 cc/h while intake is poor. DVT prophylaxis: Heparin 5000 subcu twice daily CODE STATUS: DNR/DNI. She would prefer her son Bimal to be her decision maker if she were not able to make her own decisions. She would not like to be intubated for any reason, even as a temporizing measure with reduced respiratory status. She cites rastafari objections to intubation and mechanical ventilation. (2) Asthma: (3) Sleep apnea: (4) Pneumonia: (5) Elevated lactic acid level: (6) PAC (premature atrial contraction): (7) CKD (chronic kidney disease): (8) Left pontine stroke: (9) PVC (premature ventricular contraction): (10) Type 2 DM with CKD stage 3 and hypertension: (11) Morbid obesity: (12) Severe obstructive sleep apnea: (13) Depression: (14) Osteoarthritis: (15) Anxiety: (16) Hypertension: (17) Edema: History of Present Illness Chief Complaint: Acute Hypercarbic Respiratory Failure, ?L sided PNA Primary Care Provider: MEME Liv is a 78-year-old female with a past medical history of asthma, COPD, CKD, left paramedian carey stroke, stable right anterior temporal meningioma, PVCs, type 2 diabetes on insulin, CAMRON requiring CPAP, hypertension who presented with 1 week of chest tightness, wheezing, and shortness of breath. Elyssa reports her symptoms began with feeling generally ill, wheezing, and chest tightness 1 week ago. Her symptoms have gotten worse, and her wheezing has been intermittently worse over the last week. She also endorses a tight, squeezing discomfort in her upper chest which spreads from armpit armpit but which does not travel to her shoulder or jaw. Denies palpitations or chest pain. She endorses chills, denies fever. Endorses decreased appetite, nausea, no vomiting. She endorses alternating diarrhea and constipation at baseline, last bowel movement was yesterday. Last BM was loose, without blood, melena, or steatorrhea. She was prescribed azithromycin by her outpatient provider, received 1 dose before admission. She endorses chronic painful neuropathy in her feet due to diabetes. Endorses bilateral knee pain, left knee pain worsened since falling during her stroke in January. Denies warmth, erythema of her knees. Denies new rashes. She endorses strabismus at baseline worsened since her stroke in January. Endorses double vision and blurry vision worsen and gradually worsening since her stroke in January. Denies new focal neurologic deficits. Prior to admission medications: Reviewed, see EMR Surgical history: Reviewed, see EMR Social history: Lives alone at the [facility]. Denies current and former tobacco use. Denies alcohol use and any prior symptoms of withdrawal. Denies recreational drug use including cocaine and marijuana. She reports if she was unable to make medical decisions, she would want her son Bimal to make decisions for her. She is DNR/DNI. CODE STATUS: DNR/DNI. Elyssa reports that she does not want to be intubated for any reason, including temporary stabilization of her breathing. She cites that this is against her rastafari preference. Allergies Allergy/AdvReac Type Severity Reaction Status Date / Time Bactrim Allergy Severe THROAT Verified 05/14/15 15:22 CLOSED meperidine Allergy Severe almost Verified 03/21/19 22:50 "closed throat" midodrine Allergy Severe "almost Verified 03/21/19 22:50 closed throat" Penicillins Allergy Severe ANAPHYLAXIS Verified 03/21/19 22:50 Quinolones Allergy Severe TOLERATED Verified 03/21/19 22:50 LEVAQUIN IV - SEP 06 sulfamethoxazole Allergy Severe THROAT Verified 03/18/19 09:03 CLOSED trimethoprim Allergy Severe THROAT Verified 03/18/19 09:03 CLOSED diphenoxylate Allergy Intermediate Unknown Verified 03/18/19 09:03 glyburide Allergy Intermediate SEVERE Verified 03/18/19 09:03 ABDOMINAL PAIN metformin Allergy Intermediate SEVERE Verified 03/18/19 09:03 ABDOMINAL PAIN metronidazole [From Flagyl] Allergy Intermediate Hives Verified 03/18/19 09:03 nitrofurantoin Allergy Intermediate Unknown Verified 03/21/19 22:50 oxycodone Allergy Intermediate SEVERE Verified 03/18/19 09:03 WITHDRAWAL SYMPTOMS WHEN TRYING TO STOP TAKING ranitidine Allergy Intermediate Unknown Verified 03/18/19 09:03 repaglinide Allergy Intermediate Unknown Verified 03/21/19 22:50 rosiglitazone Allergy Intermediate Unknown Verified 03/21/19 22:50 DENILSON Inhibitors Allergy Unknown unknown to Verified 03/18/19 09:03 pt atropine Allergy Unknown Unknown Verified 03/18/19 09:03 Histamine H2 Inhibitors Allergy Unknown unknown to Verified 03/18/19 09:03 pt Iodinated Contrast Media Allergy Unknown JULY 2017 Verified 03/18/19 09:03 [facility] -- TOLERATED WITH SLOW INFUSION PER PATIENT phenazopyridine Allergy Unknown Unknown Verified 03/21/19 22:50 carvedilol Allergy Unknown Verified 03/21/19 22:50 clonazepam [From Klonopin] Allergy Unknown Verified 03/18/19 09:03 doxycycline Allergy Unknown Verified 03/21/19 22:50 furosemide [From Lasix] Allergy Unknown Verified 03/21/19 22:50 tolterodine [From Detrol] Allergy Unknown Verified 03/18/19 09:03 carbamazepine AdvReac Severe Unknown Verified 03/18/19 09:03 valproic acid AdvReac Severe Unknown Verified 03/21/19 22:50 albuterol AdvReac Intermediate UNK Verified 03/21/19 22:50 olanzapine AdvReac Intermediate Unknown Verified 03/18/19 09:03 paroxetine AdvReac Intermediate DID NOT Verified 03/18/19 09:03 HELP rofecoxib AdvReac Intermediate Unknown Verified 03/21/19 22:50 temazepam AdvReac Intermediate DID NOT Verified 03/21/19 22:50 HELP diazepam AdvReac Mild SEDATION Verified 03/18/19 09:03 LASTING TOO LONG ibuprofen AdvReac Mild Unknown Verified 03/21/19 22:50 lisinopril AdvReac Mild UNK Verified 03/18/19 09:03 mirtazapine AdvReac Mild Unknown Verified 03/21/19 22:50 Home Medications Home Medications Medication Instructions Recorded Confirmed Type Ocular Lubricant Shameka 1 drp OPB BID PRN 03/21/19 03/21/19 History Vitamin D Tab 5,000 unit PO DAILY 03/21/19 03/21/19 History acetaminophen [Tylenol Extra 500 mg PO Q4 PRN 03/21/19 03/21/19 History Strength] albuterol sulfate [Ventolin HFA] 1 - 2 puff INHALATION Q4 PRN 03/21/19 03/21/19 History aspirin [Aspir-81] 81 mg PO DAILY 03/21/19 03/21/19 History azithromycin [Zithromax Z-Andres] 250 mg PO .DAILY FOR 4 DAYS 03/21/19 03/21/19 History biotin 10,000 mcg SUBLINGUAL DAILY 03/21/19 03/21/19 History camphor-methyl salicyl-menthol 1 ea TOPICAL QAM PRN 03/21/19 03/21/19 History [Salonpas Deep Relieving] clopidogrel [Plavix] 75 mg PO DAILY 03/21/19 03/21/19 History docusate sodium [Colace] 100 mg PO BID 03/21/19 03/21/19 History epinephrine 0.3 mg IM UD PRN 03/21/19 03/21/19 History escitalopram oxalate 20 mg PO QPM 03/21/19 03/21/19 History fluticasone propionate [Flonase 2 spray INTRANASAL BID 03/21/19 03/21/19 History Allergy Relief] gabapentin [Neurontin] 600 mg PO BID 03/21/19 03/21/19 History insulin aspart U-100 [Novolog 0 unit SUBCUT TIDM 03/21/19 03/21/19 History Flexpen U-100 Insulin] insulin aspart U-100 [Novolog 4 unit SUBCUT .Q BREAKFAST 03/21/19 03/21/19 History U-100 Insulin aspart] insulin aspart U-100 [Novolog 6 unit SUBCUT BIDM 03/21/19 03/21/19 History U-100 Insulin aspart] insulin glargine [Basaglar KwikPen 32 unit SUBCUT BID 03/21/19 03/21/19 History U-100 Insulin] loperamide [Imodium A-D] 2 mg PO UD PRN 03/21/19 03/21/19 History melatonin 10 mg PO HS PRN 03/21/19 03/21/19 History metoprolol succinate [Toprol XL] 50 mg PO DAILY 03/21/19 03/21/19 History mometasone [Asmanex Twisthaler] 1 inh INHALATION BID 03/21/19 03/21/19 History pantoprazole [Protonix] 40 mg PO DAILY 03/21/19 03/21/19 History pravastatin 80 mg PO DAILY 03/21/19 03/21/19 History sennosides-docusate sodium [Senna 1 tab-cap PO DAILY 03/21/19 03/21/19 History Plus] Past Med/Surg History Medical History Admitted to intensive care unit Anxiety Arrhythmia "AN EXTRA HEARTBEAT" Asthma Breast cancer UNSURE WHICH SIDE WAS CANCER. Chronic back pain Chronic neck pain TO HAVE NECK SURGERY WITH DR PATEL CKD (chronic kidney disease) (Chronic) Depression Difficult airway for intubation Dysphagia History of benign brain tumor (Chronic) History of esophageal dilatation History of spinal stenosis (Chronic) History of uterine cancer (Resolved) "Postmenopausal vaginal bleeding Endometrial biopsy revealing endometrioid adenocarcinoma Status post total abdominal hysterectomy and bilateral salpingo-oophorectomy Stage pT2 pN0 M0 Status post completion of radiation therapy with external beam radiation as well as 2 HDR treatments. 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) Uterine cancer RICHARD BSO Surgical History History of cardiac catheterization (Resolved) NO STENTS History of cataract surgery (Resolved) BILATERAL History of cholecystectomy History of colonoscopy History of esophagogastroduodenoscopy (EGD) History of knee surgery (Resolved) ARTHROSCOPY LEFT KNEE History of mastectomy (Resolved) BILATERAL History of total abdominal hysterectomy (Resolved) BSO Family History Mother Myocardial infarction Social History Preferred Language: Yi Communication Ability: Effective Visual Impairment: Partially Limited Hearing Ability: Hard of Hearing Design Assistant Required: No Beliefs That Will Affect Care: None marital status: / Current Living Situation: Personal Care Facility Current Living Situation Comment: [facility] current occupational status: retired Other Information That Helps Us Care for You: No Feels Safe at Home: Yes Safety Concerns: Feels Safe At This Time Smoking Status: Unknown if ever smoked Hx Alcohol Use: No Hx Substance Use: No Childhood Exposure to Second-Hand Smoke: No Dental Care, Regularly: Yes Physical Activity Frequency: Does not Exercise Seatbelt Use: always Sunscreen Use: Yes Review of Systems Review of Systems: All systems reviewed & are unremarkable except as noted in HPI & below Physical Exam Physical Exam: General: A&Ox3. Appears fatigued. Cooperative. HEENT: Atraumatic, normocephalic. See neuro below. Pulm: Diminished air movement. Crackles on left lower lobe, diffuse wheezing on forced expiration. No rhonchi. Tachypneic, mild distress. Cardiac: RRR, -mrg. Radial pulses intact and symmetrical. Abdominal: Softly distended, obese, mildly tender at insulin injection site on right abdomen, otherwise nontender, no rebound tenderness.. BS present. CN II: Visual archibald are full to confrontation. Pupils are equal and react to light and accomidation. Visual acuity grossly intact. CN III, IV, : At primary gaze, There is right exotropia, on leftward gaze right eye corrects left eye develops esotropia. EoM intact without nystagmus. No visual field cuts. CN V: Facial sensation is intact to soft touch in all 3 divisions bilaterally. CN VII: No facial asymmetry, full strength to eyebrow raise, smile, eye close, and cheek puff. CN VII: Hearing is grossly intact. CN IX, X: Palate elevates symmetrically. Phonation is normal without dysarthria. CN XI: shoulder shrug intact CN XII: Tongue protrudes midline. Sensory: Diminished sensation to soft touch in legs to the ankles bilaterally. Painful neuropathy is present in the feet bilaterally on sensation testing. Sensation to soft touch intact in fingers bilaterally. Strength: RUE: Shoulder flexion/extension/internal rotation/external rotation, elbow flexion/extension, finger flexion/extension, manager games strength, interosseous 5/5 LUE: Shoulder flexion/extension/internal rotation/external rotation, elbow flexion/extension, finger flexion/extension, manager games strength, interosseous 5/5 RLE: Hip flexion, knee flexion/extension, ankle plantar flexion/dorsiflexion 5/5 LLE: Hip flexion, knee flexion/extension, ankle plantar flexion/dorsiflexion 5/5 Coordination: Mild bilateral dysmetria and mild bilateral dysdiadochokinesia on rapid alternating movements rapid alternating movements and fine finger movements are appreciated. Results & Data Vital Signs (Past 12 Hours) Vital Signs Temp Pulse Pulse Resp BP Pulse Ox 03/21/19 22:30 116 H 29 H 100 03/21/19 22:00 112 H 25 H 100 03/21/19 21:45 105 H 16 97 03/21/19 21:30 102 H 20 98 03/21/19 21:01 98 H 22 211/123 H 91 03/21/19 21:00 100 H 22 92 03/21/19 20:47 91 03/21/19 20:41 103 H 24 205/100 H 93 03/21/19 20:39 38.3 C H 110 H 22 205/100 H 92 Supervising Physician Co-Signing Physician Notes Patient seen and examined, chart reviewed, case discussed with Dr. Mary boland with his assessment and plan as documented above. Briefly, patient is a 78-year-old female with history of asthma/COPD/CKD, recent left-sided cerebellar stroke, diabetes, CAMRON on CPAP, hypertension. She presents with worsening shortness of breath and chest tightness. On physical exam patient is febrile to 38.3, sinus tachycardia 116 bpm, acutely hypertensive on arrival at 211/123 which markedly improved over time to 153/80, tachypneic at 29 breaths/min saturating 100% on room air. Generalpatient anxious in appearance, visibly tachypneic, speaking in complete sentences Skinwarm, dry, intact, no rashes/lesions HEENTnormocephalic/atraumatic, pupils equal and reactive to light, extraocular muscles intact with strabismus, neck supple Heart+ S1/S2, regular, tachycardic, no M/R/G Lungs with faint crackles in left lung, no rhonchi/wheezes Abdomen+ bowel sounds, soft, NT/ND Assessment/plan: Admit to PCU Ceftriaxone/azithromycin for presumed community-acquired pneumonia CPAP/BiPAP support as needed Repeat lactate, trend troponin, follow results of UA Remainder of plan as above Resident Activity Tracking Resident Involvement: Resident Care Provided Care Provided: Adult Hospital Medicine (1) CKD (chronic kidney disease) Chronic kidney disease stage: unspecified stage Qualified Code(s): N18.9 - Chronic kidney disease, unspecified (2) Hypertension Hypertension type: unspecified Qualified Code(s): I10 - Essential (primary) hypertension (3) Pneumonia Laterality: unspecified laterality Lung location: unspecified part of lung Pneumonia type: due to unspecified organism Qualified Code(s): J18.9 - Pneumonia, unspecified organism
[2019-03-22] MEDS ORDERED: GLUCAGON FOR INJ 1 MG VIAL SQ PRN (01:16)
[2019-03-22] MEDS ORDERED: ACETAMINOPHEN 325 MG TAB PO PRN (01:16)
[2019-03-22] MEDS ORDERED: GLUCOSE 10 TABS/TUBE PO PRN (01:16)
[2019-03-22] MEDS ORDERED: CARBOHYDRATES FOR HYPOGLYCEMIA PO PRN (01:16)
[2019-03-22] MEDS ORDERED: GLUCOSE 40% GEL 15 GM TUBE PO PRN (01:16)
[2019-03-22] MEDS ORDERED: POLYETHYLENE (MIRALAX) 17 GM PACK PO PRN (01:16)
[2019-03-22] MEDS ORDERED: DEXTROSE 50% 50 ML SYRINGE IV PRN (01:16)
[2019-03-22] MEDS ORDERED: ALBUT/IPRATROP 3MG/0.5MG NEB 3 ML VIAL NEB PRN (01:16)
[2019-03-22] MEDS ORDERED: METOPROLOL TARTRATE 1 MG/ML VIAL IV PRN (01:16)
[2019-03-22] MEDS: SODIUM CHLORIDE 0.9% 1000ML 1,000 ML IV SCH ×2 (01:33→11:07)
[2019-03-22] MEDS ORDERED: SODIUM CHLORIDE 0.9% 1000ML 1,000 ML IV SCH (02:14)
--- NOTE | 2019-03-22 02:16 | Billing Data ---
Date of Service March 22, 2019 Coding Level of Care Code 14493 Initial Inpt Care Lvl 3
[2019-03-22 04:02] LABS: Albumin Level 2.8 gm/dl (3.4-5.0); Calcium 8.1 mg/dl (8.5-10.1); Creatinine Clr Calc Pharmacy 36.4 ml/min; Est GFR (African American) 42.7; Est GFR (Non-African American) 36.9; Potassium 4.2 mmol/L (3.5-5.1)
[2019-03-22 04:07] LABS: Albumin Globulin Ratio 0.6 (0.9-2); Bilirubin,Total 0.4 mg/dl (0.2-1); Globulin 4.7 gm/dl (2.5-4.0); Total Protein 7.5 gm/dl (6.4-8.2); Troponin I 0.1 ng/ml (0-0.045)
[2019-03-22 04:39] LABS: Hematocrit (blood only) 37.3 % (37-47); Hemoglobin 11.5 g/dL (12.0-16.0); Mean Corpuscular Hemoglobin 24.1 pg (25-34); Mean Corpuscular Hgb Conc 30.8 g/dL (32-36); Mean Corpuscular Volume 78.2 fL (80-100); Mean Platelet Volume 9.2 fL (7.4-10.4); Platelet Count 106 K/uL (130-400); RDW Coefficient of Variation 13.7 % (11.5-14.5); Red Blood Count 4.77 M/uL (4.2-5.4); White Blood Count 10.16 K/uL (4.8-10.8)
[2019-03-22 04:40] LABS: Basophils # (auto) 0.01 K/uL (0-0.2); Basophils % (auto) 0.1 %; Eosinophils # (auto) 0.01 K/uL (0-0.5); Eosinophils % (auto) 0.1 %; Immature Granulocytes # (auto) 0.03 K/uL (0.00-0.02); Immature Granulocytes % (auto) 0.3 %; Lymphocytes % (auto) 5.9 %; Monocytes # (auto) 0.14 K/uL (0.11-0.59); Monocytes % (auto) 1.4 %; Neutrophils # (auto) 9.37 K/uL (1.4-6.5); Neutrophils % (auto) 92.2 %; Platelet Estimate Decreased (Normal); Polychromasia 1+
[2019-03-22] MEDS: MOMETASONE FUROATE 14 PUFF/1 INHALER INH SCH ×2 (07:36→20:36)
[2019-03-22] MEDS: CLOPIDOGREL BISULFATE 75 MG TAB PO SCH (07:37)
[2019-03-22] MEDS: PANTOprazole 40 MG TAB PO SCH (07:37)
[2019-03-22] MEDS: DOCUSATE SODIUM 100 MG CAP PO SCH ×2 (07:37→20:37)
[2019-03-22] MEDS: ASPIRIN 81 MG ECTAB PO SCH (07:37)
[2019-03-22] MEDS: HEPARIN SOD 5,000 UNIT/0.5 ML VIAL SQ SCH ×2 (07:38→20:38)
[2019-03-22] MEDS: PRAVASTATIN SOD 40 MG TAB PO SCH (07:38)
[2019-03-22] MEDS: METOPROLOL SUCC 50MG EXT REL TAB PO SCH (07:38)
[2019-03-22] MEDS: INSULIN GLARGINE SOLOSTAR 100 UNITS/ML 3 ML PEN SQ SCH ×2 (07:39→20:35)
[2019-03-22] MEDS: INSULIN ASPART 100 UNITS/ML 3 ML PEN SC SCH ×4 (07:50→20:34)
[2019-03-22] MEDS ORDERED: methylPREDNISolone 40 MG in SYRINGE 0 ML IV SCH (08:00)
[2019-03-22] MEDS ORDERED: PHARMACY GLYCEMIC MGMT CONSULT PRN (08:32)
[2019-03-22] MEDS ORDERED: INSULIN ASPART 100 UNITS/ML 3 ML PEN SC ONE (08:45)
[2019-03-22] MEDS ORDERED: GABAPENTIN 300 MG CAP PO SCH (09:00)
--- NOTE | 2019-03-22 09:29 | Pharmacy Report ---
Glycemic Control Consultation - Date of Service March 22, 2019 - Scope Scope: Glycemic Pharmacist consulted by Dr Hernandez on 03/22/19 for glycemic control and to write orders per [facility] inpatient glycemic control protocol - Objective Weight: 95.4 kg Accuchecks BSG (last 24hrs): 03/21/19 03/22/19 03/22/19 22:00 03:29 07:04 Glucose 175 H 274 H POC Glucose 276 H Laboratory Data (last 24hrs): 03/21/19 03/22/19 22:00 03:29 Potassium 4.2 4.2 Carbon Dioxide 31 24 Anion Gap 6.0 8.0 Creatinine 1.28 H 1.37 H Est Cr Clr Drug Dosing 39.8 36.4 - Recent Pertinent Medications Outpatient Anti-diabetic Regimen: * Basaglar 32 units BID plus Novolog * A1c =7.4 % 02/05/19 The patient is currently receiving: * Basal insulin: Lantus 32 units every 12 hours * Correctional Insulin: Novolog Correction per scale ACHS Goal Range: Low 140 mg/dL - High 180 mg/dL Correction Factor: 20 mg/dL/unit * Prandial insulin: Per carb ratio of 1 unit per 10 grams CHO consumed * Oral Agents: Risk Factors for Insulin Resistance: * Steroids: dexamethasone 10 mg IV x 1 then Solu-Medrol 40 mg IV q12H * Infection: azithromycin + Rocephin * Diet: T2DM - Assessment & Plan Assessment & Plan: ASSESSMENT: * Ms Carvalho is a 78 y/o F with relatively well controlled T2DM. She is managed at home on a primarily basal regimen. On presentation to the ER, patient received 10 mg of IV dexamethasone and then was started on Solu-Medrol 40 mg IV q12. When patient was on this regimen in July of 2017, she required and insulin infusion. * Nursing asked the patient if she received Lantus yesterday evening. She did not recall. Therefore, will not give additional Lantus except home dose of 32 units SQ BID. Start Novolog slightly tighter than last admission. Additional dose given this morning to QS to desired Novolog parameters. * Goal is to safely manage blood sugars with basal/bolus. Notified resident that if blood sugars continue to climb, insulin infusion will be required. He is in agreement. PLAN FOR INPATIENT GLYCEMIC CONTROL: * Basal insulin * Lantus 32 units SQ BID * Bolus insulin * NovoLog per scale ACHS or Q6hrs while NPO * Goal Range: Low 110 mg/dL - High 140 mg/dL * Correction Factor: 10 mg/dL/unit * Nutritional / Prandial insulin per carb ratio of 1 unit per 3 grams CHO consumed * Please note that the plan above was derived based on current level of insulin resistance and hospital stress. These recommendations are appropriate for inpatient admission only. Plan of care upon discharge will need to be reassessed to avoid potential outpatient hypo/hyperglycemia. Thank you.
[2019-03-22] MEDS: FLUTICASONE PROPIONATE NA SPR 16 GM BTL SCH ×2 (11:08→20:36)
[2019-03-22 12:31] LABS: Appearance Urine Clear (Clear); Bilirubin Urine Negative (Negative); Blood Urine Negative (Negative); Color Urine Yellow; Glucose Urine UA 3+ (Negative); Ketones Urine Negative (Negative); Leukocyte Esterase Urine Negative (Negative); Nitrite Urine Negative (Negative); Protein Urine Negative (Negative); Specific Gravity Urine 1.011 (1.000-1.030); Urobilinogen Urine Negative (Negative); pH Urine 5.5 (4.5-7.5)
[2019-03-22] MEDS ORDERED: methylPREDNISolone 4 MG TAB PO SCH (13:00)
--- NOTE | 2019-03-22 13:00 | Hospitalist Progress Note ---
Date of Service March 22, 2019 Assessment & Plan (1) Acute hypercapnic respiratory failure: Ms. Carvalho is a 78-year-old female with a past medical history of asthma, COPD, CKD, left-sided cerebellar stroke, stable meningioma, type 2 diabetes, CAMRON on CPAP, hypertension who presents with 1 week of wheezing and chest tightness and who was admitted for acute hypercarbic respiratory failure. Acute hypercarbic respiratory failure 2/2 CAP and asthma exacerbation - Continue supplemental oxygen BiPAP/CPAP as needed Sepsis sec to CAP with asthma exacerbation CXR shows left opacities, left hemidiaphragm elevation -Chest CT showed chronic though increased infiltrate involving the RLL possibly representing infection/inflammatory process and lower lobe bronchial wall thickening that could be seen in the setting of chronic aspiration. No leukocytosis, lactate 3.1 on admission -Lactate max at 5.2, trending downwards to 4.8 at noon on 03/22/19, continue to trend -Procalcitonin was negative. -Continue Sepsis management, lactic acidosis may be secondary to ?DKA, but unable to be certain considering mixed acid base dysfunction and negative procalcitonin. -Beta-Hydroxybutyric acid normal at 1.39. Rocephin 1g IV daily Azithromycin 500 mg load, 250 mg daily x 4 days -Converted from Methylprednisolone 40m IV to Prednisone 40mg PO BID DuoNebs every 4 hours as needed Continue home mometasone INH -Speech therapy consult placed No prior spirometry records available -Patient stated that she had not smoked since she was 15 years old DEB versus prerenal azotemia Baseline creatinine 1.1 acutely elevated to 1.32 on admission. -Fluid support, CAP treatment as above Minimize/avoid nephrotoxins BMP daily Elevated troponin History of persistently elevated troponin levels Troponin mildly elevated, 0.089 on admission, trended x2 every 6 hours. -Most recent troponin 0.106 History of left paramedian pontine stroke No new/acute focal neurologic deficits with current admission per patient Continue Plavix/ASA DAPT Continue pravastatin 80 mg p.o. daily Hypertension Continue metoprolol 50 mg p.o. daily Lopressor 2.5 mg every 46 hours for SBP greater than 180 Per prior notes patient has exacerbation of hypotensive symptoms and deficits with SBP less than 120. Target BP goal [id number]. She reports she has multiple medication allergies. Not on DENILSON/ARB secondary to allergies. Type 2 diabetes mellitus Glycemic consult BMP daily GERD Protonix 40 mg daily Constipation Continue docusate 100 mg p.o. twice daily MiraLAX twice daily as needed -Discussed with patient that colonoscopy was an outpatient procedure, she noted understanding. FEN GI: Type II diabetic diet. DC IVF since patient taking PO DVT prophylaxis: Heparin 5000 subcu twice daily CODE STATUS: DNR/DNI. She would prefer her son Bimal to be her decision maker if she were not able to make her own decisions. She would not like to be intubated for any reason, even as a temporizing measure with reduced respiratory status. She cites uatsdin objections to intubation and mechanical ventilation. (2) Asthma: (3) Sleep apnea: (4) Pneumonia: (5) Elevated lactic acid level: (6) PAC (premature atrial contraction): (7) CKD (chronic kidney disease): (8) Left pontine stroke: (9) PVC (premature ventricular contraction): (10) Type 2 DM with CKD stage 3 and hypertension: (11) Morbid obesity: (12) Severe obstructive sleep apnea: (13) Depression: (14) Osteoarthritis: (15) Anxiety: (16) Hypertension: (17) Edema: Supervising Physician Co-Signing Physician Notes Resident Physician Supervision Note: I independently interviewed and examined the patient and verified the chiu history and physical, reviewed labs and image studies, discussed the case with the resident Dr. Hernandez and agree with the findings and care plan. Subjective Patient examined at the bedside this AM. Patient appeared relatively comfortable and stated that her breathing was "99.5% better than last night." She stated that she still had a slight bandlike pressure around her chest, but that it was also significantly better. She noted that her legs were "burning up" and that she felt it was due to her sugars being high. She continues to endorse slight dyspnea on exertion. Lastly, patient notes that she was having constipation or diarrhea for over a year now (currently constipation) and that she would like a colonoscopy during this admission. Review of Systems Constitutional: + fatigue and + weakness; no fever and no chills Eyes: no eye pain and no photophobia Ear, Nose, Mouth, Throat: no ear pain, no tinnitus and no dizziness Respiratory: + cough, + chest congestion, + dyspnea on exertion and + stopping breathing during sleep (uses cpap); no pain on inspiration Cardiovascular: + dyspnea on exertion; no chest pain and no palpitations Additional Comments: notes b/l bandlike chest pressure at level of 5-6 ribs Gastrointestinal: + constipation; no nausea and no vomiting Genitourinary: no dysuria Physical Exam Constitutional: well developed, well nourished, cooperative and comfortable; no acute distress Eyes: normal visual archibald by confrontation, + anicteric sclerae, PERRL and EOM intact bilaterally; no conjunctival abnormality ENMT: external ear and nose normal, oropharynx normal Respiratory: normal respiratory effort and + cough; no respiratory distress, no labored breathing, does not use accessory muscles and not tachypneic Auscultation: + diminished lung sounds (in bases b/l ) and + wheezes (Slight wheeze noted b/l, R>L ) Cardiovascular: Rate/Rhythm: regular rate and regular rhythm Heart Sounds: no murmur Extremities: + edema (+1 b/l ) Gastrointestinal (Abdomen): normal bowel sounds, soft, nontender, no hepatosplenomegaly Psychiatric: A+Ox3, euthymic affect Results & Data Vital Signs (Past 12 Hours) Vital Signs Temp Pulse Pulse Resp BP Pulse Ox 03/22/19 11:39 36.5 C 87 18 171/75 H 97 03/22/19 06:54 88 03/22/19 06:49 93 H 03/22/19 04:41 88 14 96 03/22/19 03:50 36.7 C 95 H 16 167/77 H 96 03/22/19 03:12 104 H 03/22/19 02:34 101 H 03/22/19 02:13 94 H 18 98 03/22/19 01:16 36.5 C 100 H 103 H 20 128/55 L 95 Laboratory Results Abnormal lab results 03/21/19 03/21/19 03/21/19 Range/Units 22:00 22:00 22:00 Hgb (12.0-16.0) g/dL MCV 77.5 L (80-100) fL MCH 24.5 L (25-34) pg MCHC 31.6 L (32-36) g/dL Plt Count 110 L (130-400) K/uL Immature Gran # (Auto) 0.03 H (0.00-0.02) K/uL Neut # (Auto) 7.31 H (1.4-6.5) K/uL Lymph # (Auto) 1.15 L (1.2-3.4) K/uL Platelet Estimate (Normal) VBG pH (7.36-7.41) VBG pCO2 (38-50) mmHg BUN 23 H (7-18) mg/dl Creatinine 1.28 H (0.6-1.2) mg/dl Glucose 175 H (70-99) mg/dl POC Glucose (70-99) Lactate 3.1 H* (0.4-2.0) mmol/L Calcium (8.5-10.1) mg/dl Troponin I 0.089 H* (0-0.045) ng/ml Albumin 3.2 L (3.4-5.0) gm/dl Globulin 4.9 H (2.5-4.0) gm/dl Albumin/Globulin Ratio 0.7 L (0.9-2) Urine Glucose (UA) (Negative) 03/21/19 03/22/19 03/22/19 Range/Units 22:00 00:06 03:29 Hgb (12.0-16.0) g/dL MCV (80-100) fL MCH (25-34) pg MCHC (32-36) g/dL Plt Count (130-400) K/uL Immature Gran # (Auto) (0.00-0.02) K/uL Neut # (Auto) (1.4-6.5) K/uL Lymph # (Auto) (1.2-3.4) K/uL Platelet Estimate (Normal) VBG pH 7.34 L (7.36-7.41) VBG pCO2 60 H (38-50) mmHg BUN 22 H (7-18) mg/dl Creatinine 1.37 H (0.6-1.2) mg/dl Glucose 274 H (70-99) mg/dl POC Glucose (70-99) Lactate 4.7 H* (0.4-2.0) mmol/L Calcium 8.1 L (8.5-10.1) mg/dl Troponin I 0.100 H* (0-0.045) ng/ml Albumin 2.8 L (3.4-5.0) gm/dl Globulin 4.7 H (2.5-4.0) gm/dl Albumin/Globulin Ratio 0.6 L (0.9-2) Urine Glucose (UA) (Negative) 03/22/19 03/22/19 03/22/19 Range/Units 03:29 05:24 07:04 Hgb 11.5 L (12.0-16.0) g/dL MCV 78.2 L (80-100) fL MCH 24.1 L (25-34) pg MCHC 30.8 L (32-36) g/dL Plt Count 106 L (130-400) K/uL Immature Gran # (Auto) 0.03 H (0.00-0.02) K/uL Neut # (Auto) 9.37 H (1.4-6.5) K/uL Lymph # (Auto) 0.60 L (1.2-3.4) K/uL Platelet Estimate Decreased L (Normal) VBG pH (7.36-7.41) VBG pCO2 (38-50) mmHg BUN (7-18) mg/dl Creatinine (0.6-1.2) mg/dl Glucose (70-99) mg/dl POC Glucose 276 H (70-99) Lactate 5.2 H* (0.4-2.0) mmol/L Calcium (8.5-10.1) mg/dl Troponin I (0-0.045) ng/ml Albumin (3.4-5.0) gm/dl Globulin (2.5-4.0) gm/dl Albumin/Globulin Ratio (0.9-2) Urine Glucose (UA) (Negative) 03/22/19 03/22/19 03/22/19 Range/Units 09:48 11:13 12:20 Hgb (12.0-16.0) g/dL MCV (80-100) fL MCH (25-34) pg MCHC (32-36) g/dL Plt Count (130-400) K/uL Immature Gran # (Auto) (0.00-0.02) K/uL Neut # (Auto) (1.4-6.5) K/uL Lymph # (Auto) (1.2-3.4) K/uL Platelet Estimate (Normal) VBG pH (7.36-7.41) VBG pCO2 (38-50) mmHg BUN (7-18) mg/dl Creatinine (0.6-1.2) mg/dl Glucose (70-99) mg/dl POC Glucose 279 H (70-99) Lactate (0.4-2.0) mmol/L Calcium (8.5-10.1) mg/dl Troponin I 0.106 H* (0-0.045) ng/ml Albumin (3.4-5.0) gm/dl Globulin (2.5-4.0) gm/dl Albumin/Globulin Ratio (0.9-2) Urine Glucose (UA) 3+ H (Negative) 03/22/19 Range/Units 12:27 Hgb (12.0-16.0) g/dL MCV (80-100) fL MCH (25-34) pg MCHC (32-36) g/dL Plt Count (130-400) K/uL Immature Gran # (Auto) (0.00-0.02) K/uL Neut # (Auto) (1.4-6.5) K/uL Lymph # (Auto) (1.2-3.4) K/uL Platelet Estimate (Normal) VBG pH (7.36-7.41) VBG pCO2 (38-50) mmHg BUN (7-18) mg/dl Creatinine (0.6-1.2) mg/dl Glucose (70-99) mg/dl POC Glucose (70-99) Lactate 4.8 H* (0.4-2.0) mmol/L Calcium (8.5-10.1) mg/dl Troponin I (0-0.045) ng/ml Albumin (3.4-5.0) gm/dl Globulin (2.5-4.0) gm/dl Albumin/Globulin Ratio (0.9-2) Urine Glucose (UA) (Negative) Medications Administered Current Inpatient Medications Acetaminophen (Tylenol) 650 mg PO Q4H PRN PRN Reason: Pain or Fever Stop: 04/21/19 01:15 Albuterol (Duoneb) 3 ml NEB Q4R PRN PRN Reason: wheezing Stop: 04/21/19 01:15 Aspirin (Ecotrin Ectab) 81 mg PO DAILY [facility] Stop: 04/21/19 08:59 Last Admin: 03/22/19 07:37 Dose: 81 mg Documented by: Clopidogrel Bisulfate (Plavix) 75 mg PO DAILY [facility] Stop: 04/21/19 08:59 Last Admin: 03/22/19 07:37 Dose: 75 mg Documented by: Dextrose (Dextrose 50%) 25 - 50 ml IV UD PRN; Protocol PRN Reason: Hypoglycemia Protocol Stop: 04/21/19 01:15 Docusate Sodium (Colace) 100 mg PO BID [facility] Stop: 04/21/19 08:59 Last Admin: 03/22/19 07:37 Dose: 100 mg Documented by: Escitalopram Oxalate (Lexapro Tab) 20 mg PO QPM [facility] Stop: 04/21/19 20:59 Fluticasone Propionate (Flonase) 2 sprays NA BID [facility] Stop: 04/21/19 09:59 Last Admin: 03/22/19 11:08 Dose: 2 sprays Documented by: Gabapentin (Neurontin) 600 mg PO BID@1700,2100 [facility] Stop: 04/21/19 16:59 Glucagon (Glucagen) 1 mg SQ UD PRN; Protocol PRN Reason: Hypoglycemia Protocol Stop: 04/21/19 01:15 Glucose (Dex4 Glucose) 4 - 8 tabs PO UD PRN; Protocol PRN Reason: Hypoglycemia Protocol Stop: 04/21/19 01:15 Glucose (Glucose 40%) 15 - 30 gm PO UD PRN; Protocol PRN Reason: Hypoglycemia Protocol Stop: 04/21/19 01:15 Heparin Sodium (Porcine) (Heparin Sodium (Porcine)) 5,000 units SQ Q12 [facility] Stop: 04/21/19 08:59 Last Admin: 03/22/19 07:38 Dose: 5,000 units Documented by: Ceftriaxone Sodium 2,000 mg/ (Dextrose) 70 mls @ 100 mls/hr IV Q24H [facility]; Protocol Stop: 03/29/19 19:59 Azithromycin 250 mg/ Dextrose 252.5 mls @ 125 mls/hr IV Q24H [facility] Stop: 03/29/19 21:59 Sodium Chloride (Nss 1000ml) 1,000 mls @ 125 mls/hr IV .Q8H [facility] Stop: 04/21/19 01:15 Last Admin: 03/22/19 11:07 Dose: 125 mls/hr Documented by: Insulin Aspart (Novolog Flexpen) 0 units SC ACHS [facility] Stop: 04/21/19 07:29 Last Admin: 03/22/19 12:29 Dose: 33 units Documented by: Insulin Glargine (Lantus Solostar Pen) 32 units SQ BID [facility] Stop: 04/21/19 08:59 Last Admin: 03/22/19 07:39 Dose: 32 units Documented by: Metoprolol Succinate (Toprol Xl) 50 mg PO DAILY [facility] Stop: 04/21/19 08:59 Last Admin: 03/22/19 07:38 Dose: 50 mg Documented by: Metoprolol Tartrate (Lopressor) 2.5 mg IV Q4 PRN PRN Reason: HTN SBP >180 Stop: 04/21/19 01:15 Miscellaneous (Carbohydrates For Hypoglycemia) 15 - 30 gm PO UD PRN PRN Reason: Hypoglycemia Protocol Stop: 04/21/19 01:15 Miscellaneous Information (Consult Glycemic Management Pharmacy) 1 ea N/A UD PRN PRN Reason: Consult Stop: 04/21/19 08:31 Mometasone Furoate (Asmanex 220mcg) 1 puffs INH BID [facility] Stop: 04/21/19 08:59 Last Admin: 03/22/19 07:36 Dose: 1 puffs Documented by: Pantoprazole Sodium (Protonix) 40 mg PO DAILY [facility] Stop: 04/21/19 08:59 Last Admin: 03/22/19 07:37 Dose: 40 mg Documented by: Polyethylene Glycol (Miralax Powder Packet) 17 gm PO DAILY PRN PRN Reason: Constipation Stop: 04/21/19 01:15 Pravastatin Sodium (Pravachol) 80 mg PO DAILY [facility] Stop: 04/21/19 08:59 Last Admin: 03/22/19 07:38 Dose: 80 mg Documented by: Prednisone (Prednisone) 40 mg PO Q12H [facility] Stop: 04/21/19 20:59 Resident Activity Tracking Resident Involvement: Resident Care Provided Care Provided: Adult Hospital Medicine (1) CKD (chronic kidney disease) Chronic kidney disease stage: unspecified stage Qualified Code(s): N18.9 - Chronic kidney disease, unspecified (2) Hypertension Hypertension type: unspecified Qualified Code(s): I10 - Essential (primary) hypertension (3) Pneumonia Laterality: unspecified laterality Lung location: unspecified part of lung Pneumonia type: due to unspecified organism Qualified Code(s): J18.9 - Pneumonia, unspecified organism
--- NOTE | 2019-03-22 15:33 | CT Scan Report ---
CT chest wo con CLINICAL HISTORY: 78 years-old Female presenting with ?PNA, ARF. TECHNIQUE: Multidetector CT imaging of the chest was performed without the use of intravenous contras t. IV contrast: None. One or more dose lowering techniques were used consistent with the principles o f ALARA (as low as reasonably achievable), including automatic exposure control, mA or kV adjustment to individual patient size, and/or use of iterative reconstruction. COMPARISON: 07/15/2017. CT DOSE (mGy.cm): The estimated cumulative dose is 736.87 mGy.cm. FINDINGS: Foreclosure Clerk topogram: Unremarkable. Soft tissues: Normal thyroid and thoracic inlet. Bilateral mastectomies. Scattered nonspecific subcen timeter mediastinal lymph nodes. No axillary, supraclavicular, or mediastinal lymphadenopathy. Evalua tion of the ирина limited without intravenous contrast. Atherosclerosis of the aorta. Aortic valve and mitral annular calcification. Normal heart size. No pericardial or pleural effusion. Mild hepatic st eatosis. Lungs and airways: No pneumothorax. Central airways patent. Trace bronchial wall thickening in the lo wer lobes. Pulmonary arteries are not significantly enlarged relative to adjacent bronchi. No interlo bular septal thickening. Minimal dependent changes consistent with atelectasis. Scattered solid pulmo nary nodules measuring up to 3 mm. Tree-in-bud and irregular branching infiltrate focally in the limi cindi portion of the lateral basal right lower lobe, progressed since prior exam (series 4 image 161). Musculoskeletal: Degenerative changes of the spine. Significant heterogeneity of the medullary bone i n the vertebral bodies as on prior exam. Focal degenerative changes with mild erosive endplate change s in the upper thoracic spine as on prior exam. IMPRESSION: 1. Chronic though increased tree-in-bud and irregular branching infiltrate focally involving limited portion of the right lower lobe. This could represent an indolent infection or inflammatory process. 2. Trace lower lobe bronchial wall thickening is nonspecific though could be seen in the setting of chronic aspiration among other possibilities. 3. Significant heterogeneity of medullary bone is unchanged from prior and could result from chronic renal insufficiency among many other etiologies. 4. Bilateral mastectomies. ACT 112: Negative or not required by law. Electronically signed by: Chi Blackwell M.D. 03/22/2019 3:31 PM
[2019-03-22] MEDS: GABAPENTIN 300 MG CAP PO SCH ×2 (17:20→20:37)
[2019-03-22] MEDS ORDERED: cefTRIAXone SODIUM 2,000 MG in DEXTROSE 5% 50 ML IV SCH (20:00)
[2019-03-22] MEDS: predniSONE 20 MG TAB PO SCH (20:44)
[2019-03-22] MEDS ORDERED: ESCITALOPRAM OXALATE 20 MG TAB PO SCH (21:00)
[2019-03-22] MEDS ORDERED: MoRPHine SULFATE 2 MG/ML CARP IV ONE ×2 (21:02→23:21)
--- NOTE | 2019-03-22 21:10 | Progress Note ---
Date of Service March 22, 2019 Received page from the patient's bedside nurse complaining of chest tightness. Patient says it feels better than when she was admitted but presently seems worse than earlier today. She denies any concurrent acute shortness of breath. On brief review of her chart, patient was admitted for similar symptoms and found to be in acute hypercarbic respiratory failure secondary to pneumonia. Prior to my seeing her, she received EKG which was normal sinus rhythm rate 75 and no acute STT wave changes. She also received an albuterol neb which she says did not seem to help. Vitals reviewed and was noted not to be tachycardic or hypoxic. Found patient resting comfortably in the bed. She appears a bit anxious but is speaking easily and comfortably in full sentences. Heart is regular. She is mildly tachypneic on exam, breathing shallow, but both of these improve when speaking spontaneously. Has a slight wheeze throughout. Stat labs noted a troponin of 0.109, near identical to earlier today. She continues to have an elevated lactate at 3.7. Plan: - She does not seem to have overt acute cardiac chest pain. Continue to monitor for new symptoms. - Suspect she continues to have the same chest tightness for which she was admitted. She is already on albuterol, antibiotics, and steroids. - We will try a small dose of morphine for both pain and as a mild anxiolytic. She has multiple medication allergies including benzodiazepines. - She continues to have an elevated lactate but this is trending downwards. We will start her on some maintenance IVF overnight. Karthik Schneider, PGY3 Overnight call Results & Data Vital Signs (Past 12 Hours) Vital Signs Temp Pulse Resp BP Pulse Ox 03/22/19 20:04 98 03/22/19 19:52 98 H 99 03/22/19 19:05 36.5 C 82 20 146/81 H 95 03/22/19 15:17 36.5 C 81 20 156/66 H 95 03/22/19 11:39 36.5 C 87 18 171/75 H 97
[2019-03-22] MEDS ORDERED: AZITHROMYCIN 250 MG in DEXTROSE 5% 250 ML IV SCH (22:00)
--- NOTE | 2019-03-22 22:25 | XRay Report ---
XR chest 1V portable CLINICAL HISTORY: 78 years-old Female presenting with chest tightness, eval for new infiltrate. TECHNIQUE: Portable upright AP view of the chest was obtained. COMPARISON: 03/21/2019. FINDINGS: Atherosclerosis of the aortic arch. Cardiac silhouette mildly enlarged. Minimal left basilar opacitie s. No pleural effusion or pneumothorax. Degenerative changes of the thoracic spine. Upper abdomen nor mal. IMPRESSION: 1. Stable exam. Minimal left basilar opacities likely atelectasis or scarring. No convincing evidenc e of acute cardiopulmonary disease. ACT 112: Negative or not required by law. Electronically signed by: Chi Blackwell M.D. 03/22/2019 10:23 PM
[2019-03-23] MEDS: COUGH DROP (SUGAR FREE) LOZ 24 LOZ/1 BOX BUCCAL PRN ×2 (02:27→03:21)
[2019-03-23 07:45] LABS: BUN Creatinine Ratio 25.8 (10-20); Calcium 8.7 mg/dl (8.5-10.1); Creatinine Clr Calc Pharmacy 45.9 ml/min; Est GFR (African American) 55.7; Est GFR (Non-African American) 48.1; Potassium 4.7 mmol/L (3.5-5.1)
[2019-03-23] MEDS: DOCUSATE SODIUM 100 MG CAP PO SCH (08:16)
[2019-03-23] MEDS: predniSONE 20 MG TAB PO SCH (08:17)
[2019-03-23] MEDS: ASPIRIN 81 MG ECTAB PO SCH (08:17)
[2019-03-23] MEDS: CLOPIDOGREL BISULFATE 75 MG TAB PO SCH (08:17)
[2019-03-23] MEDS: MOMETASONE FUROATE 14 PUFF/1 INHALER INH SCH (08:18)
[2019-03-23] MEDS: PANTOprazole 40 MG TAB PO SCH (08:18)
[2019-03-23] MEDS: FLUTICASONE PROPIONATE NA SPR 16 GM BTL SCH (08:18)
[2019-03-23] MEDS: PRAVASTATIN SOD 40 MG TAB PO SCH (08:19)
[2019-03-23] MEDS: HEPARIN SOD 5,000 UNIT/0.5 ML VIAL SQ SCH (08:20)
[2019-03-23] MEDS: METOPROLOL SUCC 50MG EXT REL TAB PO SCH (08:20)
[2019-03-23] MEDS: INSULIN ASPART 100 UNITS/ML 3 ML PEN SC SCH ×2 (08:21→12:00)
[2019-03-23] MEDS ORDERED: INSULIN GLARGINE SOLOSTAR 100 UNITS/ML 3 ML PEN SQ SCH (09:00)
--- NOTE | 2019-03-23 11:53 | Discharge Summary ---
Date of Service March 23, 2019 Admission HPI Per Admitting Provider Liv is a 78-year-old female with a past medical history of asthma, COPD, CKD, left paramedian carey stroke, stable right anterior temporal meningioma, PVCs, type 2 diabetes on insulin, CAMRON requiring CPAP, hypertension who presented with 1 week of chest tightness, wheezing, and shortness of breath. Elyssa reports her symptoms began with feeling generally ill, wheezing, and chest tightness 1 week ago. Her symptoms have gotten worse, and her wheezing has been intermittently worse over the last week. She also endorses a tight, squeezing discomfort in her upper chest which spreads from armpit armpit but which does not travel to her shoulder or jaw. Denies palpitations or chest pain. She endorses chills, denies fever. Endorses decreased appetite, nausea, no vomiting. She endorses alternating diarrhea and constipation at baseline, last bowel movement was yesterday. Last BM was loose, without blood, melena, or steatorrhea. She was prescribed azithromycin by her outpatient provider, received 1 dose before admission. She endorses chronic painful neuropathy in her feet due to diabetes. Endorses bilateral knee pain, left knee pain worsened since falling during her stroke in January. Denies warmth, erythema of her knees. Denies new rashes. She endorses strabismus at baseline worsened since her stroke in January. Endorses double vision and blurry vision worsen and gradually worsening since her stroke in January. Denies new focal neurologic deficits. Prior to admission medications: Reviewed, see EMR Surgical history: Reviewed, see EMR Social history: Lives alone at the [facility]. Denies current and former tobacco use. Denies alcohol use and any prior symptoms of withdrawal. Denies recreational drug use including cocaine and marijuana. She reports if she was unable to make medical decisions, she would want her son Bimal to make decisions for her. She is DNR/DNI. CODE STATUS: DNR/DNI. Elyssa reports that she does not want to be intubated for any reason, including temporary stabilization of her breathing. She cites that this is against her gnosticist preference. Admission Exam Per Admitting Provider General: A&Ox3. Appears fatigued. Cooperative. HEENT: Atraumatic, normocephalic. See neuro below. Pulm: Diminished air movement. Crackles on left lower lobe, diffuse wheezing on forced expiration. No rhonchi. Tachypneic, mild distress. Cardiac: RRR, -mrg. Radial pulses intact and symmetrical. Abdominal: Softly distended, obese, mildly tender at insulin injection site on right abdomen, otherwise nontender, no rebound tenderness.. BS present. CN II: Visual archibald are full to confrontation. Pupils are equal and react to light and accomidation. Visual acuity grossly intact. CN III, IV, : At primary gaze, There is right exotropia, on leftward gaze right eye corrects left eye develops esotropia. EoM intact without nystagmus. No visual field cuts. CN V: Facial sensation is intact to soft touch in all 3 divisions bilaterally. CN VII: No facial asymmetry, full strength to eyebrow raise, smile, eye close, and cheek puff. CN VII: Hearing is grossly intact. CN IX, X: Palate elevates symmetrically. Phonation is normal without dysarthria. CN XI: shoulder shrug intact CN XII: Tongue protrudes midline. Sensory: Diminished sensation to soft touch in legs to the ankles bilaterally. Painful neuropathy is present in the feet bilaterally on sensation testing. Sensation to soft touch intact in fingers bilaterally. Strength: RUE: Shoulder flexion/extension/internal rotation/external rotation, elbow flexion/extension, finger flexion/extension, senior controller strength, interosseous 5/5 LUE: Shoulder flexion/extension/internal rotation/external rotation, elbow flexion/extension, finger flexion/extension, senior controller strength, interosseous 5/5 RLE: Hip flexion, knee flexion/extension, ankle plantar flexion/dorsiflexion 5/5 LLE: Hip flexion, knee flexion/extension, ankle plantar flexion/dorsiflexion 5/5 Coordination: Mild bilateral dysmetria and mild bilateral dysdiadochokinesia on rapid alternating movements rapid alternating movements and fine finger movements are appreciated. Principal Diagnosis Hypercarbic Respiratory Failure secondary to Asthma Exacerbation and CAP Discharge Exam Constitutional well developed, well nourished, cooperative and comfortable; no acute distress Eyes normal visual archibald by confrontation, + anicteric sclerae, PERRL and EOM intact bilaterally; no conjunctival abnormality ENMT external ear and nose normal, oropharynx normal Respiratory normal respiratory effort and + cough; no respiratory distress, no labored breathing, does not use accessory muscles and not tachypneic Auscultation: + diminished lung sounds (in bases b/l ); no wheezes Cardiovascular Rate/Rhythm: regular rate and regular rhythm Heart Sounds: no murmur Extremities: + edema (+1 b/l ) Gastrointestinal (Abdomen) normal bowel sounds, soft, nontender, no hepatosplenomegaly Psychiatric A+Ox3, euthymic affect Discharge Data Allergies Allergy/AdvReac Type Severity Reaction Status Date / Time Bactrim Allergy Severe THROAT Verified 05/14/15 15:22 CLOSED meperidine Allergy Severe almost Verified 03/24/19 10:02 "closed throat" midodrine Allergy Severe "almost Verified 03/24/19 10:02 closed throat" Penicillins Allergy Severe ANAPHYLAXIS Verified 03/24/19 10:02 Quinolones Allergy Severe TOLERATED Verified 03/24/19 10:02 LEVAQUIN IV - SEP 06 sulfamethoxazole Allergy Severe THROAT Verified 03/24/19 10:02 CLOSED trimethoprim Allergy Severe THROAT Verified 03/24/19 10:02 CLOSED diphenoxylate Allergy Intermediate Unknown Verified 03/24/19 10:02 glyburide Allergy Intermediate SEVERE Verified 03/24/19 10:02 ABDOMINAL PAIN metformin Allergy Intermediate SEVERE Verified 03/24/19 10:02 ABDOMINAL PAIN metronidazole [From Flagyl] Allergy Intermediate Hives Verified 03/24/19 10:02 nitrofurantoin Allergy Intermediate Unknown Verified 03/24/19 10:02 oxycodone Allergy Intermediate SEVERE Verified 03/24/19 10:02 WITHDRAWAL SYMPTOMS WHEN TRYING TO STOP TAKING ranitidine Allergy Intermediate Unknown Verified 03/24/19 10:02 repaglinide Allergy Intermediate Unknown Verified 03/24/19 10:02 rosiglitazone Allergy Intermediate Unknown Verified 03/24/19 10:02 DENILSON Inhibitors Allergy Unknown unknown to Verified 03/24/19 10:02 pt atropine Allergy Unknown Unknown Verified 03/24/19 10:02 Histamine H2 Inhibitors Allergy Unknown unknown to Verified 03/24/19 10:02 pt Iodinated Contrast Media Allergy Unknown JULY 2017 Verified 03/24/19 10:02 [facility] -- TOLERATED WITH SLOW INFUSION PER PATIENT phenazopyridine Allergy Unknown Unknown Verified 03/24/19 10:02 carvedilol Allergy Unknown Verified 03/24/19 10:02 clonazepam [From Klonopin] Allergy Unknown Verified 03/24/19 10:02 doxycycline Allergy Unknown Verified 03/24/19 10:02 furosemide [From Lasix] Allergy Unknown Verified 03/24/19 10:02 tolterodine [From Detrol] Allergy Unknown Verified 03/24/19 10:02 carbamazepine AdvReac Severe Unknown Verified 03/24/19 10:02 valproic acid AdvReac Severe Unknown Verified 03/24/19 10:02 albuterol AdvReac Intermediate UNK Verified 03/24/19 10:02 olanzapine AdvReac Intermediate Unknown Verified 03/24/19 10:02 paroxetine AdvReac Intermediate DID NOT Verified 03/24/19 10:02 HELP rofecoxib AdvReac Intermediate Unknown Verified 03/24/19 10:02 temazepam AdvReac Intermediate DID NOT Verified 03/24/19 10:02 HELP diazepam AdvReac Mild SEDATION Verified 03/24/19 10:02 LASTING TOO LONG ibuprofen AdvReac Mild Unknown Verified 03/24/19 10:02 lisinopril AdvReac Mild UNK Verified 03/24/19 10:02 mirtazapine AdvReac Mild Unknown Verified 03/24/19 10:02 Consultations 03/21/19 22:19 ED Decision to Admit Stat Ordered Studies 03/22/19 01:16 CT chest wo con Routine Hospital Course (1) Acute hypercapnic respiratory failure: Ms. Carvalho is a 78-year-old female with a past medical history of asthma, COPD, CKD, left-sided cerebellar stroke, stable meningioma, type 2 diabetes, CAMRON on CPAP, hypertension who presents with 1 week of wheezing and chest tightness and who was admitted for acute hypercarbic respiratory failure. Acute hypercarbic respiratory failure 2/2 CAP and asthma exacerbation - Continued supplemental oxygen PRN while inpatient. Provided BiPAP/CPAP as needed. Sepsis sec to CAP with asthma exacerbation CXR showed left opacities, left hemidiaphragm elevation -Chest CT showed chronic though increased infiltrate involving the RLL possibly representing infection/inflammatory process and lower lobe bronchial wall thickening that could be seen in the setting of chronic aspiration. No leukocytosis was noted throughout stay, lactate 3.1 on admission -Lactate max at 5.2, and had trended down to 3.7 prior to discharge. -Procalcitonin was negative. -Continued Sepsis management as lactic acidosis may have been secondary to ?DKA, but unable to be certain considering mixed acid base dysfunction and negative procalcitonin. -Beta-Hydroxybutyric acid normal at 1.39. Rocephin 1g IV daily was given, discontinued at discharge. Azithromycin 500 mg load IV, 250 mg daily IV was given. -Converted from Methylprednisolone 40m IV to Prednisone 40mg PO BID which was later discontinued as patient refused taking more steroids as they "made me swell" and "makes me unable to sleep." DuoNebs was given every 4 hours as needed Continued home mometasone INH -Speech therapy consult was placed that recommended moist foods and an outpatient Barium swallow. Patient passed a 2-step ambulation test, oxygenating at >95% without O2. -Due to improved status and oxygenation, patient was discharged back to her personal skilled nursing at [facility] on Azithromycin 250mg QD x 3 days and instructed to follow up with her PCP within the next week. DEB versus prerenal azotemia Baseline creatinine 1.1 acutely elevated to 1.32 on admission. -Fluid support, CAP treatment as above were provided. Minimized and avoided nephrotoxins Resolved at discharge with creatinine 1.10. Elevated troponin History of persistently elevated troponin levels noted through chart review. Troponin mildly elevated, 0.089 on admission, trended x2 every 6 hours. -Patient's troponin remained stable at a max of 0.109. History of left paramedian pontine stroke No new/acute focal neurologic deficits noted per patient during admission. Continued home Plavix/ASA. Continued home pravastatin 80 mg p.o. daily Hypertension Continued home metoprolol 50 mg p.o. daily Lopressor 2.5 mg every 46 hours for SBP greater than 180 was added for inpatient BP control as needed. Per prior notes patient has noted exacerbation of hypotensive symptoms and deficits with SBP less than 120. Target BP goal was [id number]. Type 2 diabetes mellitus -Patient's home insulin regiment was held while inpatient. Patient will continue her home regiment upon discharge. -Glycemic consult to pharmacy was placed and patient's sugars were controlled with Insulin Glargine and Aspart while inpatient. GERD Continued home Protonix 40 mg daily Constipation Continued home docusate 100 mg p.o. twice daily MiraLAX twice daily as needed was ordered for the patient. -Discussed with patient that colonoscopy was an outpatient procedure, she noted understanding. -Patient to follow up with PCP about her chronic constipation/diarrhea cycles. FEN GI: Type II diabetic diet. DVT prophylaxis: Heparin 5000 subcu twice daily while inpatient. CODE STATUS: DNR/DNI. Dispo: Discharge to [facility] (2) Asthma: (3) Sleep apnea: (4) Pneumonia: (5) Elevated lactic acid level: (6) PAC (premature atrial contraction): (7) CKD (chronic kidney disease): (8) Left pontine stroke: (9) PVC (premature ventricular contraction): (10) Type 2 DM with CKD stage 3 and hypertension: (11) Morbid obesity: (12) Severe obstructive sleep apnea: (13) Depression: (14) Osteoarthritis: (15) Anxiety: (16) Hypertension: (17) Edema: Total Time Total Time Spent Total Time Spent (In Minutes): see attending attestation Discharge Plan Discharge Items Patient Disposition: Personal Prison Reason For Visit: ACUTE HYPERCARBIC RESPIRATORY FAILURE Discharge Diagnosis: Hypercarbic Respiratory Failure secondary to Asthma Exacerbation and CAP Condition on Discharge: Good Activity: Per Instructions section Non-emergency contact: Primary Care Provider Call non-emergency contact if: you have any medication questions and your symptoms worsen Follow-up/Referrals: MEME, [Primary Care Provider] - Diet: Carb Consistent or DM2 Addtl Attending Provider Instructions: Ms. Carvalho is a 78-year-old female with a past medical history of asthma, COPD, CKD, left-sided cerebellar stroke, stable meningioma, type 2 diabetes, CAMRON on CPAP, hypertension who presents with 1 week of wheezing and chest tightness and who was admitted for acute hypercarbic respiratory failure. Acute hypercarbic respiratory failure 2/2 CAP and asthma exacerbation - Resolved, patient noted significant improvement. - Passed 2 step testing without oxygen, O2 remained >95% - Continue CPAP at night for Obstructive Sleep Apnea Sepsis sec to CAP with asthma exacerbation -CXR showed possible L infiltrates and CT showed chronic though increased infiltrate of the right lower lung. -Continue Azithromycin 250mg daily for 3 days. -Albuterol inhaler PRN 1-2 puff Q4H PRN -Continue Mometasone 1 inhalation BID -Continue Flonase -Discontinue Prednisone since patient state she had difficulty tolerating it as it "makes me swell and unable to sleep." -Speech evaluated patient and recommended slippery foods, regular diet. -Place medications in carrier as needed. -Avoid foods that are dry, thick, pasty, and doughy. -Add sauce/broth/condiments to foods to keep them moist -Recommend outpatient Barium Swallow study in outpatient setting. Prerenal azotemia Resolved, creatinine 0.92 on discharge. Elevated troponin History of persistently elevated troponin levels Troponin mildly elevated, 0.089 on admission, trended x2 every 6 hours. -Most recent troponin 0.106. -Appears chronic, resolved. History of left paramedian pontine stroke No new/acute focal neurologic deficits with current admission per patient Continue Plavix/ASA DAPT Continue pravastatin 80 mg p.o. daily Hypertension Continue metoprolol 50 mg p.o. daily Type 2 diabetes mellitus Continue home insulin regiment GERD Continue Protonix 40 mg daily Constipation Continue docusate 100 mg p.o. twice daily MiraLAX twice daily as needed -Discussed with patient that colonoscopy was an outpatient procedure, she noted understanding. FEN GI: Type II diabetic diet. CODE STATUS: DNR/DNI. Pending Studies at Discharge: No Stand-Alone Forms: Growish, Smoking Cessation Skilled Items Patient informed of condition?: Yes DNR: Yes Discharge Level of Care: Other Communicable Disease: No Discharge Prognosis: Stable Lines: None Urinary Catheter: No Medications and DC Order Prescriptions: Continued loperamide [Imodium A-D] 2 mg Capsule 2 mg PO UD PRN (Reason: Diarrhea) RF: 0 metoprolol succinate [Toprol XL] 50 mg Tablet Extended Release 24 Hr 50 mg PO QAM RF: 0 clopidogrel [Plavix] 75 mg Tablet 75 mg PO QAM RF: 0 aspirin [Aspir-81] 81 mg Tablet,Delayed Release (Dr/Ec) 81 mg PO QAM RF: 0 acetaminophen [Tylenol Extra Strength] 500 mg Tablet 500 mg PO Q4 PRN (Reason: Fever Or Pain) RF: 0 pravastatin 80 mg Tablet 80 mg PO DAILY@1700 RF: 0 Novolog U-100 Insulin aspart 100 unit/mL Solution 4 unit SUBCUT .Q BREAKFAST RF: 0 Novolog U-100 Insulin aspart 100 unit/mL Solution 6 unit SUBCUT BIDM RF: 0 pantoprazole [Protonix] 40 mg Tablet,Delayed Release (Dr/Ec) 40 mg PO QAM RF: 0 docusate sodium [Colace] 100 mg Capsule 100 mg PO BID RF: 0 gabapentin [Neurontin] 300 mg capsule 600 mg PO BID RF: 0 epinephrine 0.3 mg/0.3 mL auto-injector 0.3 mg IM UD PRN (Reason: Anaphylaxis) RF: 0 albuterol sulfate [Ventolin HFA] 90 mcg/actuation Hfa Aerosol Inhaler 1 - 2 puff INHALATION Q4 PRN (Reason: Shortness Of Breath Or Wheezing) RF: 0 fluticasone propionate [Flonase Allergy Relief] 50 mcg/actuation [place],Suspension 2 spray INTRANASAL BID RF: 0 escitalopram oxalate 20 mg tablet 20 mg PO HS RF: 0 Novolog Flexpen U-100 Insulin 100 unit/mL (3 mL) insulin pen 0 unit SUBCUT TIDM RF: 0 Asmanex Twisthaler 220 mcg/ actuation (60) aerosol powdr breath activated 1 inh INHALATION BID RF: 0 Basaglar KwikPen U-100 Insulin 100 unit/mL (3 mL) Insulin Pen 32 unit SUBCUT BID RF: 0 melatonin 10 mg Tablet 10 mg PO HS PRN (Reason: INSOMIA) RF: 0 biotin 5,000 mcg Tablet, Sublingual 10,000 mcg SUBLINGUAL QAM RF: 0 Salonpas Deep Relieving 3.1-15-10 % Gel 1 ea TOPICAL QAM PRN (Reason: Pain) RF: 0 Senna Plus 8.6-50 mg Capsule 1 tab-cap PO DAILY@1200 RF: 0 Ocular Lubricant Shameka 1 drp OPB BID PRN (Reason: Dry Eyes) RF: 0 Discontinued azithromycin [Zithromax Z-Andres] 250 mg tablet 250 mg PO .DAILY FOR 4 DAYS RF: 0 No Action cholecalciferol (vitamin D3) [Vitamin D3] 125 mcg (5,000 unit) Tablet 5,000 unit PO QAM RF: 0 azithromycin 250 mg tablet 250 mg PO QAM RF: 0 Discharge Orders: Discharge Order (Routine); Ordered 03/23/19 Ordered By: Dyllan Hernandez Admission Data Admit Date/Time: 03/22/19 00:43 Attending Provider: Chantel Atwood Admit Provider: Chi Hernandez Primary Care Provider: Martina VALENTINE Providers: Kayli Monae Other Interventions: Discharge Summary Assessment (RN) Last Done: 03/23/19 11:32 DC Date/Time DO NOT enter until pt leaves facility: 03/23/19 14:49 Supervising Physician Co-Signing Physician Notes Resident Physician Supervision Note: I independently interviewed and examined the patient and verified the chiu history and physical, reviewed labs and image studies, discussed the case with the resident Dr. Hernandez and agree with the findings and care plan. Time spent in discharge 35 min Resident Activity Tracking Resident Involvement: Resident Care Provided Care Provided: Adult Hospital Medicine
== END 2019-03-23 14:49 | disposition home or self-care (01) | DRG 189 ==
LOC: ED 20:24 → 2S 03-22 00:43 → SUATTDRO 03-22 00:43 → 2S 03-22 01:03

== ENCOUNTER 2019-03-24 09:29 | Inpatient (IN) ==
[2019-03-24] MEDS ORDERED: ALBUT/IPRATROP 3MG/0.5MG NEB 3 ML VIAL NEB STA (09:47)
--- NOTE | 2019-03-24 10:03 | XRay Report ---
SINGLE VIEW CHEST CLINICAL HISTORY: Cough and dyspnea. FINDINGS: An AP, portable, upright chest radiograph is compared to chest x-ray and chest CT dated . The examination is degraded by portable technique and patient rotation. The cardiomediastina l silhouette is unremarkable noting atherosclerotic calcification of the thoracic aorta. There is pat anne airspace consolidation at the left lung base. No large pleural effusion or pneumothorax is seen. The skeletal structures are osteopenic. The bony thorax is grossly intact. IMPRESSION: There is patchy airspace consolidation at the left lung base. Correlate clinically for ev idence of pneumonia/aspiration pneumonitis. Radiographic follow-up to resolution is recommended. ACT 112: Positive. There are findings on this exam that require communication between the performing entity and the patient following Patient Test Result Information Act ([place] Act 112) guidelines. Electronically signed by: Joey Patterson M.D. 03/24/2019 10:02 AM
[2019-03-24] MEDS ORDERED: CLINDAMYCIN 600 MG in DEXTROSE 5% 50 ML IV ONE (10:07)
[2019-03-24 10:29] LABS: Basophils # (auto) 0.02 K/uL (0-0.2); Basophils % (auto) 0.2 %; Eosinophils # (auto) 0.08 K/uL (0-0.5); Eosinophils % (auto) 0.8 %; Hematocrit (blood only) 34.5 % (37-47); Hemoglobin 10.8 g/dL (12.0-16.0); Immature Granulocytes # (auto) 0.13 K/uL (0.00-0.02); Immature Granulocytes % (auto) 1.3 %; Lymphocytes # (auto) 1.27 K/uL (1.2-3.4); Lymphocytes % (auto) 12.8 %; Mean Corpuscular Hemoglobin 24.1 pg (25-34); Mean Corpuscular Hgb Conc 31.3 g/dL (32-36); Mean Corpuscular Volume 76.8 fL (80-100); Mean Platelet Volume 9.1 fL (7.4-10.4); Neutrophils # (auto) 7.64 K/uL (1.4-6.5); Neutrophils % (auto) 76.9 %; Platelet Count 128 K/uL (130-400); RDW Coefficient of Variation 13.9 % (11.5-14.5); Red Blood Count 4.49 M/uL (4.2-5.4); White Blood Count 9.94 K/uL (4.8-10.8)
[2019-03-24 11:01] LABS: Creatinine Clr Calc Pharmacy 40.2 ml/min; Est GFR (African American) 45.9; Est GFR (Non-African American) 39.6
[2019-03-24 11:02] LABS: Albumin Level 2.8 gm/dl (3.4-5.0); BUN Creatinine Ratio 22.1 (10-20); Bilirubin,Total 0.8 mg/dl (0.2-1); Calcium 8.4 mg/dl (8.5-10.1); Magnesium 1.8 mg/dl (1.8-2.4); Troponin I 0.104 ng/ml (0-0.045)
[2019-03-24] MEDS ORDERED: ALBUTEROL HFA 8 GM INHALER INH PRN (13:22)
[2019-03-24] MEDS ORDERED: ARTIFICIAL TEARS OP OINT 3.5 GM TUBE OPB PRN (13:22)
[2019-03-24] MEDS ORDERED: EPINEPHRINE ADULT AUTO-INJECT 0.3 MG SYR IM PRN (13:22)
[2019-03-24] MEDS ORDERED: POLYETHYLENE (MIRALAX) 17 GM PACK PO PRN (13:22)
[2019-03-24] MEDS ORDERED: LOPERAMIDE HCL 2 MG CAP PO PRN (13:22)
[2019-03-24] MEDS ORDERED: ACETAMINOPHEN 500 MG TAB PO PRN (13:22)
[2019-03-24] MEDS: LACTATED RINGER'S 1,000 ML IV SCH (13:30)
[2019-03-24] MEDS: AZITHROMYCIN 500 MG in DEXTROSE 5% 250 ML IV SCH (14:06)
[2019-03-24] MEDS: METOPROLOL SUCC 50MG EXT REL TAB PO SCH (14:08)
[2019-03-24] MEDS: GABAPENTIN 600 MG TAB PO SCH ×3 (14:09→20:40)
[2019-03-24] MEDS: CLOPIDOGREL BISULFATE 75 MG TAB PO SCH (14:09)
[2019-03-24] MEDS: PANTOprazole 40 MG TAB PO SCH (14:09)
[2019-03-24] MEDS: INSULIN ASPART 100 UNITS/ML 3 ML PEN SC SCH ×3 (14:10→20:39)
[2019-03-24] MEDS: ASPIRIN 81 MG ECTAB PO SCH (14:20)
[2019-03-24] MEDS: methylPREDNISolone 40 MG in SYRINGE 0 ML IV SCH ×2 (14:21→14:23)
--- NOTE | 2019-03-24 14:40 | History & Physical Report ---
Date of Service March 24, 2019 Assessment & Plan (1) Aspiration pneumonia: 78-year-old female with history of asthma, COPD, CKD, left paramedian carey stroke, stable right anterior temporal meningioma, PVCs, type 2 diabetes on insulin, CAMRON requiring CPAP, hypertension presents with worsening respiratory status and fever last night s/p discharge yesterday, 03/23/19 for acute respiratory failure secondary to CAP/asthma exacerbation. Acute hypoxic respiratory failure 2/2 aspiration pneumonitis vs. CAP vs. possible influenza CXR worse than CXR on 03/22 patchy airspace consolidation LLL PNA vs. aspiration -Chest CT 03/22 showed chronic though increased infiltrate involving the RLL p ossibly representing infection/inflammatory process and lower lobe bronchial wall thickening that could be seen in the setting of chronic aspiration. No leukocytosis including throughout previous stay, lactate normal this admission -Influenza pending Rocephin 1g IV daily and Azithromycin 500 mg IV daily -Methylprednisolone 40m IV BID DuoNebs every 4 hours doron Continued home mometasone INH -Speech therapy consulted again for possible changes to diet given persistent aspiration -FL Video barium study to further evaluate -Continued supplemental oxygen PRN while inpatient FEN GI: Type II diabetic diet. DVT prophylaxis: Heparin 5000 subcu twice daily while inpatient. CODE STATUS: DNR/DNI. Dispo: Discharge to [facility] when clinically improved (2) Hypoxia: As above (3) Hypertension: Hypertension Continued home metoprolol 50 mg p.o. daily (4) GERD (gastroesophageal reflux disease): Continued home Protonix 40 mg daily (5) Asthma: -Continue home inhaler, mometasone and albuterol prn (6) Sleep apnea: -Cpap at night (7) Neuropathy: -Continue home gabapentin (8) History of benign brain tumor: (9) CKD (chronic kidney disease): Baseline Cr. 1.1 (10) Left pontine stroke: History of left paramedian pontine stroke Continued home Plavix/ASA. Continued home pravastatin 80 mg p.o. daily (11) Type 2 DM with CKD stage 3 and hypertension: -Continue home glargine. 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 Patient reports developing fever, 101 at [facility] last night. She was having more productive cough. Her breathing worsened this morning and she brought to the ED. She reports using her rescue inhaler more. She endorses chest pressure from one armpit to another which is similar to her description from last admission. She feels nauseous but has not vomited and denies abdominal pain. She had a loose BM after having miralax in the hospital yesterday, not black in color or bloody. This AM she reports having a more formed/soft BM. She also reported drinking a lot of water as she felt thirsty and wet her bed. Speech evaluation was completed as part of concern for aspiration and the recommendation was to eat moist foods. Pt reports doing so however she continues to have choking episodes. Patient has double vision, hearing and speech issues after her stroke which is unchanged from her baseline. She has chronic neuropathy in her feet. ROS: as above. Denies any headache, dizziness, abdominal pain, melena, hematochezia, dysuria. Per records from [facility], she received azithromycin 500mg at 5pm on 03/23 and 250mg this AM. Social history: Lives alone at the [facility]. CODE STATUS: DNR/DNI confirmed with patient and son. Allergies Allergy/AdvReac Type Severity Reaction Status Date / Time Bactrim Allergy Severe THROAT Verified 05/14/15 15:22 CLOSED meperidine Allergy Severe almost Verified 03/24/19 10:02 "closed throat" midodrine Allergy Severe "almost Verified 03/24/19 10:02 closed throat" Penicillins Allergy Severe ANAPHYLAXIS Verified 03/24/19 10:02 Quinolones Allergy Severe TOLERATED Verified 03/24/19 10:02 LEVAQUIN IV - SEP 06 sulfamethoxazole Allergy Severe THROAT Verified 03/24/19 10:02 CLOSED trimethoprim Allergy Severe THROAT Verified 03/24/19 10:02 CLOSED diphenoxylate Allergy Intermediate Unknown Verified 03/24/19 10:02 glyburide Allergy Intermediate SEVERE Verified 03/24/19 10:02 ABDOMINAL PAIN metformin Allergy Intermediate SEVERE Verified 03/24/19 10:02 ABDOMINAL PAIN metronidazole [From Flagyl] Allergy Intermediate Hives Verified 03/24/19 10:02 nitrofurantoin Allergy Intermediate Unknown Verified 03/24/19 10:02 oxycodone Allergy Intermediate SEVERE Verified 03/24/19 10:02 WITHDRAWAL SYMPTOMS WHEN TRYING TO STOP TAKING ranitidine Allergy Intermediate Unknown Verified 03/24/19 10:02 repaglinide Allergy Intermediate Unknown Verified 03/24/19 10:02 rosiglitazone Allergy Intermediate Unknown Verified 03/24/19 10:02 DENILSON Inhibitors Allergy Unknown unknown to Verified 03/24/19 10:02 pt atropine Allergy Unknown Unknown Verified 03/24/19 10:02 Histamine H2 Inhibitors Allergy Unknown unknown to Verified 03/24/19 10:02 pt Iodinated Contrast Media Allergy Unknown JULY 2017 Verified 03/24/19 10:02 MN -- TOLERATED WITH SLOW INFUSION PER PATIENT phenazopyridine Allergy Unknown Unknown Verified 03/24/19 10:02 carvedilol Allergy Unknown Verified 03/24/19 10:02 clonazepam [From Klonopin] Allergy Unknown Verified 03/24/19 10:02 doxycycline Allergy Unknown Verified 03/24/19 10:02 furosemide [From Lasix] Allergy Unknown Verified 03/24/19 10:02 tolterodine [From Detrol] Allergy Unknown Verified 03/24/19 10:02 carbamazepine AdvReac Severe Unknown Verified 03/24/19 10:02 valproic acid AdvReac Severe Unknown Verified 03/24/19 10:02 albuterol AdvReac Intermediate UNK Verified 03/24/19 10:02 olanzapine AdvReac Intermediate Unknown Verified 03/24/19 10:02 paroxetine AdvReac Intermediate DID NOT Verified 03/24/19 10:02 HELP rofecoxib AdvReac Intermediate Unknown Verified 03/24/19 10:02 temazepam AdvReac Intermediate DID NOT Verified 03/24/19 10:02 HELP diazepam AdvReac Mild SEDATION Verified 03/24/19 10:02 LASTING TOO LONG ibuprofen AdvReac Mild Unknown Verified 03/24/19 10:02 lisinopril AdvReac Mild UNK Verified 03/24/19 10:02 mirtazapine AdvReac Mild Unknown Verified 03/24/19 10:02 Home Medications Home Medications Medication Instructions Recorded Confirmed Type Asmanex Twisthaler 1 inh INHALATION BID 03/21/19 03/24/19 History Basaglar KwikPen U-100 Insulin 32 unit SUBCUT BID 03/21/19 03/24/19 History Novolog Flexpen U-100 Insulin 0 unit SUBCUT TIDM 03/21/19 03/24/19 History Novolog U-100 Insulin aspart 4 unit SUBCUT .Q BREAKFAST 03/21/19 03/24/19 History Novolog U-100 Insulin aspart 6 unit SUBCUT BIDM 03/21/19 03/24/19 History Ocular Lubricant Shameka 1 drp OPB BID PRN 03/21/19 03/24/19 History Salonpas Deep Relieving 1 ea TOPICAL QAM PRN 03/21/19 03/24/19 History Senna Plus 1 tab-cap PO DAILY@1200 03/21/19 03/24/19 History acetaminophen [Tylenol Extra 500 mg PO Q4 PRN 03/21/19 03/24/19 History Strength] albuterol sulfate [Ventolin HFA] 1 - 2 puff INHALATION Q4 PRN 03/21/19 03/24/19 History aspirin [Aspir-81] 81 mg PO QAM 03/21/19 03/24/19 History biotin 10,000 mcg SUBLINGUAL QAM 03/21/19 03/24/19 History clopidogrel [Plavix] 75 mg PO QAM 03/21/19 03/24/19 History docusate sodium [Colace] 100 mg PO BID 03/21/19 03/24/19 History epinephrine 0.3 mg IM UD PRN 03/21/19 03/24/19 History escitalopram oxalate 20 mg PO HS 03/21/19 03/24/19 History fluticasone propionate [Flonase 2 spray INTRANASAL BID 03/21/19 03/24/19 History Allergy Relief] gabapentin [Neurontin] 600 mg PO BID 03/21/19 03/24/19 History loperamide [Imodium A-D] 2 mg PO UD PRN 03/21/19 03/24/19 History melatonin 10 mg PO HS PRN 03/21/19 03/24/19 History metoprolol succinate [Toprol XL] 50 mg PO QAM 03/21/19 03/24/19 History pantoprazole [Protonix] 40 mg PO QAM 03/21/19 03/24/19 History pravastatin 80 mg PO DAILY@1700 03/21/19 03/24/19 History azithromycin 250 mg PO QAM 03/24/19 03/24/19 History cholecalciferol (vitamin D3) 5,000 unit PO QAM 03/24/19 03/24/19 History [Vitamin D3] Past Med/Surg History Medical History Admitted to intensive care unit Anxiety Arrhythmia "AN EXTRA HEARTBEAT" Asthma Breast cancer UNSURE WHICH SIDE WAS CANCER. Chronic back pain Chronic neck pain TO HAVE NECK SURGERY WITH DR PATEL CKD (chronic kidney disease) (Chronic) Depression Difficult airway for intubation Dysphagia GERD (gastroesophageal reflux disease) History of benign brain tumor (Chronic) History of esophageal dilatation History of spinal stenosis (Chronic) History of uterine cancer (Resolved) "Postmenopausal vaginal bleeding Endometrial biopsy revealing endometrioid adenocarcinoma Status post total abdominal hysterectomy and bilateral salpingo-oophorectomy Stage pT2 pN0 M0 Status post completion of radiation therapy with external beam radiation as well as 2 HDR treatments. Her total dose was 5500 cGy completed 08/15/2013" Hypertension (Chronic) Left pontine stroke (Chronic) Lymphedema of right arm CHRONIC Meningioma Morbid obesity Neuropathy (Chronic) Osteoarthritis PAC (premature atrial contraction) (Chronic) PVC (premature ventricular contraction) (Chronic) Severe obstructive sleep apnea Sleep apnea Type 2 DM with CKD stage 3 and hypertension (Chronic) Uterine cancer RICHARD BSO Surgical History History of cardiac catheterization (Resolved) NO STENTS History of cataract surgery (Resolved) BILATERAL History of cholecystectomy History of colonoscopy History of esophagogastroduodenoscopy (EGD) History of knee surgery (Resolved) ARTHROSCOPY LEFT KNEE History of mastectomy (Resolved) BILATERAL History of total abdominal hysterectomy (Resolved) BSO Family History Mother Myocardial infarction Social History Preferred Language: Mosotho Communication Ability: Effective Visual Impairment: Partially Limited Hearing Ability: Hard of Hearing 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: No Beliefs That Will Affect Care: None marital status: / Current Living Situation: Personal Care Facility Current Living Situation Comment: [facility] current occupational status: retired Other Information That Helps Us Care for You: No Feels Safe at Home: Yes Safety Concerns: Feels Safe At This Time Smoking Status: Unknown if ever smoked Hx Alcohol Use: No Hx Substance Use: No Childhood Exposure to Second-Hand Smoke: No Dental Care, Regularly: Yes Physical Activity Frequency: Does not Exercise Seatbelt Use: always Sunscreen Use: Yes Review of Systems Review of Systems: As per HPI Physical Exam Physical Exam: General: In NAD, pleasant HEENT: dry oral mucosa Neuro: A&O x 4 Pulm: Crackles appreciated over posterior mid and lower lung archibald bilaterally, equal breath sounds bilaterally, no increased work of breathing, on 2L NC sating 95% CV: RRR, no m/r/g Abdomen:+BS, no TTP in all quadrants, non-distended LE: no LE edema, no calf TTP Results & Data Vital Signs (Past 12 Hours) Vital Signs Temp Pulse Pulse Resp BP BP BP 03/24/19 13:51 74 03/24/19 13:42 36.8 C 74 20 135/80 03/24/19 12:50 75 16 177/119 H 03/24/19 11:28 77 20 154/65 H 03/24/19 10:52 84 22 03/24/19 09:36 36.8 C 85 20 156/70 H Pulse Ox 03/24/19 13:51 03/24/19 13:42 98 03/24/19 12:50 99 03/24/19 11:28 98 03/24/19 10:52 97 03/24/19 09:36 87 L Laboratory Results Abnormal lab results 03/24/19 03/24/19 03/24/19 Range/Units 10:14 10:14 13:10 Hgb 10.8 L (12.0-16.0) g/dL Hct 34.5 L (37-47) % MCV 76.8 L (80-100) fL MCH 24.1 L (25-34) pg MCHC 31.3 L (32-36) g/dL Plt Count 128 L (130-400) K/uL Immature Gran # (Auto) 0.13 H (0.00-0.02) K/uL Neut # (Auto) 7.64 H (1.4-6.5) K/uL Webb # (Auto) 0.80 H (0.11-0.59) K/uL BUN 29 H (7-18) mg/dl Creatinine 1.29 H (0.6-1.2) mg/dl BUN/Creatinine Ratio 22.1 H (10-20) POC Glucose 102 H (70-99) Calcium 8.4 L (8.5-10.1) mg/dl Troponin I 0.104 H* (0-0.045) ng/ml Albumin 2.8 L (3.4-5.0) gm/dl Diagnostic Findings SINGLE VIEW CHEST CLINICAL HISTORY: Cough and dyspnea. FINDINGS: An AP, portable, upright chest radiograph is compared to chest x-ray and chest CT dated 03/22/2019. The examination is degraded by portable technique and patient rotation. The cardiomediastinal silhouette is unremarkable noting atherosclerotic calcification of the thoracic aorta. There is patchy airspace consolidation at the left lung base. No large pleural effusion or pneumothorax is seen. The skeletal structures are osteopenic. The bony thorax is grossly intact. IMPRESSION: There is patchy airspace consolidation at the left lung base. Correlate clinically for evidence of pneumonia/aspiration pneumonitis. Radiographic follow-up to resolution is recommended. Code Status & VTE Plan Code Status DNR/DNI VTE Prophylaxis Plan VTE Prophylaxis will be ordered: Yes Supervising Physician Co-Signing Physician Notes I personally examined the patient and verified all chiu points of history and exam, discussed case, and agree with decision making with Dr Larose. Short of breath, worse oxygen requirement. Does note that she has choking episodes. Was just working with speech therapy until discharge. Fever last night. Vitals noted, in general she appears fatigued but no distress. HEENT normocephalic atraumatic mucous membranes moist. Breathing shows her lungs to be clear upper lung archibald bibasilar rales (even when she is laying on her side) no rhonchi no wheezes good effort no accessory muscle use. Neuro shows chronic appearing strabismus (I remember this from seeing her earlier in the fall) skin shows no rashes no pallor or icterus. Hypoxic respiratory failureappears to be a pneumonia, most likely aspiration. Certainly healthcare associated is on the differential, but given her lack of significant inflammatory markers an MRSA or pseudomonal type pneumonia seems quite unlikely. Will check flu for completeness given her fever. Antibiotics as above, further speech work-up and treatment as above. DVT prophylaxisheparin subcu Otherwise as above Resident Activity Tracking Resident Involvement: Resident Care Provided Care Provided: Adult Hospital Medicine (1) CKD (chronic kidney disease) Chronic kidney disease stage: unspecified stage Qualified Code(s): N18.9 - Chronic kidney disease, unspecified (2) Aspiration pneumonia Aspiration pneumonia type: unspecified Laterality: unspecified laterality Lung location: unspecified part of lung Qualified Code(s): J69.0 - Pneumonitis due to inhalation of food and vomit (3) Hypertension Hypertension type: unspecified Qualified Code(s): I10 - Essential (primary) hypertension
[2019-03-24] MEDS: cefTRIAXone SODIUM 2,000 MG in DEXTROSE 5% 50 ML IV SCH (14:50)
[2019-03-24] MEDS: ALBUT/IPRATROP 3MG/0.5MG NEB 3 ML VIAL NEB SCH ×2 (15:23→19:16)
--- NOTE | 2019-03-24 15:26 | Billing Data ---
Date of Service March 24, 2019 Coding Level of Care Code 34996 OBS Care - Level 3
--- NOTE | 2019-03-24 16:25 | Emergency Department Note ---
Entered by Dorie Shane acting as a scribe for Modesto Lua MD ED Provider Note Name: HILARIO ZAMUDIO Age: 78 Arrives Via: Ambulance Informant: Patient and Caregiver CC: Fever HPI: The patient is a 78 year old female who presents to the Emergency Room with complaints of a persistent fever starting a few days ago. The patient states that she came to the ED and was admitted 3 days ago. She states that she was diagnosed with pneumonia, but was sent home yesterday evening on Azithromycin. She reports that she still isnt feeling well. The patient complains of nausea, vomiting, weakness, and shortness of breath. The patients caregiver states that the patient has been excessively thirsty and has been increasingly her liquid intake. She states that last night though, the patient was too weak to get out of bed and ended up becoming incontinent. She reports that the patient also had a fever of 100.3 even after 1.5 hours of Tylenol. The patient notes that she is on Plavix. The patient denies recent falls, head injuries, and being on O2 at all times. ROS: See above HPI for pertinent positives & negatives. A total of 10 systems reviewed and were otherwise negative. Past Medical History:Anxiety, asthma, breast cancer, CKD, depression, GERD, benign brain tumor, spinal stenosis, uterine cancer, HTN, CVA, meningioma, neuropathy, PAC, PVA, osteoarthritis, Diabetes Past Surgical History:Cardiac catheterization, cataract surgery, cholecystectomy, colonoscopy, EGD, knee surgery, mastectomy, total abdominal hysterectomy Family History:ND Social History:The patient is and lives at the [facility]. She is retired. She denies ever being a smoker, use of alcohol, and use of drugs. Home Medications:Acetaminophen, Albuterol Sulfate, Asmanex Twisthaler, Aspirin, Azithromycin, Basaglar KwikPen, Biotin, Cholecalciferol, Plavix, Colace, Epinephrine, Escitalopram Oxalate, Flonase Allergy Relief, Neurontin, Imodium, Melatonin, Toprol XL, Novolog Flexpen, Novolog, Ocular Lubricant, Protonix, Pravastatin, Salonpas Deep Relieving, Senna Plus Allergies:Bactrim, Meperidine, Midodrine, Penicillins, Quinolones, Sulfamethoxazole, Trimethoprim, Diphenoxylate, Glyburide, Metformin, Metronidazole, Nitrofurantoin, Oxycodone, Ranitidine, Repaglinide, Ros iglitazone, DENILSON Inhibitors, Atropine, Histamine H2 Inhibitors, Iodinated Contrast Media, Phenazopyridine, Carvedilol, Clonazepam, Doxycycline, Furosemide, Tolterodine, Carbamazepine, Valproic Acid, Albuterol, Olanzapine, Paroxetine, Rofecoxib, Temazepam, Diazepam, Ibuprofen, Lisinopril, Mirtazapine Vitals:Blood Pressure: 156/70, Pulse Rate: 85, Respiratory Rate: 20, Te mperature: 36.8 C, O2 Saturation: 87% on room air Physical Exam: GENERAL: Patient is chronically unwell appearing, weak appearing, and in mild distress. EYES: No scleral icterus, unremarkable pupils. ENT: Mucous membranes moist, no nasal congestion. NECK: No masses appreciated, nomeningismus, trachea is midline. RESPIRATORY: Mildly dyspneic. Diffuse mild wheezing in all lung archibald. Decreased breath sounds and crackles throughout the left lung field. No rhonchi. CARDIOVASCULAR: Regular rate and rhythm.No murmurs, rubs, gallops appreciated. GASTROINTESTINAL: Abdomen soft, non-tender, no peritonitis.Bowel sounds p ositive.No masses appreciated. BACK: No midline tenderness, no CVA tenderness EXTREMITIES: Normal motion all extremities, no cyanosis, no edema. NEUROLOGIC: Alert and oriented, no acute motor or sensory deficits, no focal w eakness, cranial nerves grossly intact. SKIN: No rash, no jaundice, no diaphoresis. ED Course: Prior Medical Record, Triage/Nursing Notes, Medications, Allergies reviewed by Me Vital Signs: reviewed and remarkable for HTN Labs:Reviewed and remarkable for wnl Interventions: Saline lock, clindamycin 600mg IV, NC O2, Duoneb Imaging:X ray results are stated below per my interpretation: Chest: 1 view: New LLL infiltrate Reassessments/Times: 0942: The patient was evaluated in room B9. A complete history and physical exam was performed. 1020: I reevaluated the patient and she is feeling better. She is still requiring O2. I discussed the patient's test results and treatment plan with her. She verbally agrees and understands. 1034: Eliazar Gilbert Hospitalist was paged at this time. 1037: I discussed the patient's case with Dr. Cooper [facility] Hospitalist. She will evaluate the patient for further management. Blood pressure:Elevated -Further Management by Hospitalist. Disposition:Hospitalist evaluation Differentials: Differential Diagnosis includes but is not limited to dehydration, stroke, anemia, hypoglycemia, hyponatremia, hypernatremia, urinary tract infection, pneumonia, bronchitis, sepsis, gastroenteritis, additional abdominal pathology, metabolic abnormalities and infections. Medical Decision Makin yr old female just discharged from hospital for pneumonia on azithromycin. Complex PMH with extensive allergies and recent stroke. She admits aspirating r egularly. Given location pneumonia assume aspiration pneumonia LLL on exam/cxr. Labs looking OK. Trop at baseline. She is in no distress after being on NC O2. Clinda given due to allergies and concern this is aspiration related. She is stable, breathing comfortably though will need to come back in given new hypoxia. Impression: Aspiration Pneumonia Hypoxia The scribe's documentation has been prepared under my direction and personally reviewed by me in its entirety. I confirm that the note above accurately reflects all work, treatment, procedures, and medical decision making performed by me. Modesto Lua MD Impression & Plan Aspiration pneumonia, Hypoxia Past Med/Surg History Medical History Admitted to intensive care unit Anxiety Arrhythmia "AN EXTRA HEARTBEAT" Asthma Breast cancer UNSURE WHICH SIDE WAS CANCER. Chronic back pain Chronic neck pain TO HAVE NECK SURGERY WITH DR PATEL CKD (chronic kidney disease) (Chronic) Depression Difficult airway for intubation Dysphagia GERD (gastroesophageal reflux disease) History of benign brain tumor (Chronic) History of esophageal dilatation History of spinal stenosis (Chronic) History of uterine cancer (Resolved) "Postmenopausal vaginal bleeding Endometrial biopsy revealing endometrioid adenocarcinoma Status post total abdominal hysterectomy and bilateral salpingo-oophorectomy Stage pT2 pN0 M0 Status post completion of radiation therapy with external beam radiation as well as 2 HDR treatments. Her total dose was 5500 cGy completed 08/15/2013" Hypertension (Chronic) Left pontine stroke (Chronic) Lymphedema of right arm CHRONIC Meningioma Morbid obesity Neuropathy (Chronic) Osteoarthritis PAC (premature atrial contraction) (Chronic) PVC (premature ventricular contraction) (Chronic) Severe obstructive sleep apnea Sleep apnea Type 2 DM with CKD stage 3 and hypertension (Chronic) Uterine cancer RICHARD BSO Surgical History History of cardiac catheterization (Resolved) NO STENTS History of cataract surgery (Resolved) BILATERAL History of cholecystectomy History of colonoscopy History of esophagogastroduodenoscopy (EGD) History of knee surgery (Resolved) ARTHROSCOPY LEFT KNEE History of mastectomy (Resolved) BILATERAL History of total abdominal hysterectomy (Resolved) BSO Family History Mother Myocardial infarction Social History Preferred Language: Tanzanian Communication Ability: Effective Visual Impairment: Partially Limited Hearing Ability: Hard of Hearing Interpretative Dancer Required: No Beliefs That Will Affect Care: None marital status: / Current Living Situation: Personal Care Facility Current Living Situation Comment: [facility] current occupational status: retired Other Information That Helps Us Care for You: No Feels Safe at Home: Yes Safety Concerns: Feels Safe At This Time Smoking Status: Unknown if ever smoked Hx Alcohol Use: No Hx Substance Use: No Childhood Exposure to Second-Hand Smoke: No Dental Care, Regularly: Yes Physical Activity Frequency: Does not Exercise Seatbelt Use: always Sunscreen Use: Yes Results & Data Vital Signs Vital Signs - 24 hr 03/24/19 09:36 03/24/19 10:52 03/24/19 11:28 Temperature 36.8 C Temperature Source Oral Pulse Rate 85 Pulse Rate [Apical] 84 77 Respiratory Rate 20 22 20 Respiratory Effort / Characteristics Spontaneous Blood Pressure 156/70 H Blood Pressure [Right Arm] 154/65 H Blood Pressure Mean 98 Blood Pressure Mean [Right Arm] 94 Pulse Oximetry 87 L 97 98 Oxygen Delivery Method Room Air Nasal Cannula Nasal Cannula Oxygen Flow Rate 2 2 Sepsis Recent Fever Within 48 Hours No Sepsis New/Unexplained Change in Mental Status No Sepsis Action Taken by Nursing No Action Required Home Medications Current Medication List: was personally reviewed by me Laboratory Data Attestation: I reviewed the patient's lab results. Result diagrams: 03/24/19 10:14 03/24/19 10:14 Lab Results 03/24/19 03/24/19 03/24/19 Range/Units 10:14 10:14 10:14 WBC 9.94 (4.8-10.8) K/uL RBC 4.49 (4.2-5.4) M/uL Hgb 10.8 L (12.0-16.0) g/dL Hct 34.5 L (37-47) % MCV 76.8 L (80-100) fL MCH 24.1 L (25-34) pg MCHC 31.3 L (32-36) g/dL RDW Std Deviation 39.0 (36.4-46.3) fL RDW Coeff of Tim 13.9 (11.5-14.5) % Plt Count 128 L (130-400) K/uL MPV 9.1 (7.4-10.4) fL Immature Gran % (Auto) 1.3 % Neut % (Auto) 76.9 % Lymph % (Auto) 12.8 % Talbot % (Auto) 8.0 % Eos % (Auto) 0.8 % Baso % (Auto) 0.2 % Immature Gran # (Auto) 0.13 H (0.00-0.02) K/uL Neut # (Auto) 7.64 H (1.4-6.5) K/uL Lymph # (Auto) 1.27 (1.2-3.4) K/uL Talbot # (Auto) 0.80 H (0.11-0.59) K/uL Eos # (Auto) 0.08 (0-0.5) K/uL Baso # (Auto) 0.02 (0-0.2) K/uL Sodium 136 (136-145) mmol/L Potassium 4.0 (3.5-5.1) mmol/L Chloride 102 (98-107) mmol/L Carbon Dioxide 29 (21-32) mmol/L Anion Gap 5.0 (3-11) BUN 29 H (7-18) mg/dl Creatinine 1.29 H (0.6-1.2) mg/dl Est Cr Clr Drug Dosing 40.2 ml/min Est GFR ( Amer) 45.9 Est GFR (Non-Af Amer) 39.6 BUN/Creatinine Ratio 22.1 H (10-20) Glucose 82 (70-99) mg/dl Lactate 1.9 (0.4-2.0) mmol/L Calcium 8.4 L (8.5-10.1) mg/dl Magnesium 1.8 (1.8-2.4) mg/dl Total Bilirubin 0.8 (0.2-1) mg/dl Direct Bilirubin (0-0.2) mg/dl AST 25 (15-37) U/L ALT 21 (12-78) U/L Alkaline Phosphatase 58 (45-117) U/L Troponin I 0.104 H* (0-0.045) ng/ml Total Protein 7.0 (6.4-8.2) gm/dl Albumin 2.8 L (3.4-5.0) gm/dl Specimen Hemolysis 03/24/19 Range/Units 10:14 WBC (4.8-10.8) K/uL RBC (4.2-5.4) M/uL Hgb (12.0-16.0) g/dL Hct (37-47) % MCV (80-100) fL MCH (25-34) pg MCHC (32-36) g/dL RDW Std Deviation (36.4-46.3) fL RDW Coeff of Tim (11.5-14.5) % Plt Count (130-400) K/uL MPV (7.4-10.4) fL Immature Gran % (Auto) % Neut % (Auto) % Lymph % (Auto) % Talbot % (Auto) % Eos % (Auto) % Baso % (Auto) % Immature Gran # (Auto) (0.00-0.02) K/uL Neut # (Auto) (1.4-6.5) K/uL Lymph # (Auto) (1.2-3.4) K/uL Talbot # (Auto) (0.11-0.59) K/uL Eos # (Auto) (0-0.5) K/uL Baso # (Auto) (0-0.2) K/uL Sodium (136-145) mmol/L Potassium (3.5-5.1) mmol/L Chloride (98-107) mmol/L Carbon Dioxide (21-32) mmol/L Anion Gap (3-11) BUN (7-18) mg/dl Creatinine (0.6-1.2) mg/dl Est Cr Clr Drug Dosing ml/min Est GFR ( Amer) Est GFR (Non-Af Amer) BUN/Creatinine Ratio (10-20) Glucose (70-99) mg/dl Lactate (0.4-2.0) mmol/L Calcium (8.5-10.1) mg/dl Magnesium Cancelled (1.8-2.4) mg/dl Total Bilirubin (0.2-1) mg/dl Direct Bilirubin (0-0.2) mg/dl AST (15-37) U/L ALT (12-78) U/L Alkaline Phosphatase (45-117) U/L Troponin I Cancelled (0-0.045) ng/ml Total Protein (6.4-8.2) gm/dl Albumin (3.4-5.0) gm/dl Specimen Hemolysis Administered Medications Albuterol (Duoneb) 3 ml NEB QIDR [facility] Stop: 04/23/19 14:59 Last Admin: 03/24/19 15:23 Dose: 3 ml Documented by: [id number] Aspirin (Ecotrin Ectab) 81 mg PO [facility] Stop: 04/23/19 13:21 Last Admin: 03/24/19 14:20 Dose: 81 mg Documented by: [id number] Clopidogrel Bisulfate (Plavix) 75 mg PO [facility] Stop: 04/23/19 13:21 Last Admin: 03/24/19 14:09 Dose: 75 mg Documented by: [id number] Gabapentin (Neurontin) 600 mg PO BID [facility] Stop: 04/23/19 13:21 Last Admin: 03/24/19 14:13 Dose: Not Given Documented by: [id number] Ceftriaxone Sodium 2,000 mg/ (Dextrose) 70 mls @ 100 mls/hr IV Q24H [facility]; Protocol Stop: 03/31/19 13:59 Last Infusion: 03/24/19 15:32 Dose: 0 mls/hr Documented by: [id number] Admin: 03/24/19 14:50 Dose: 100 mls/hr Documented by: [id number] Azithromycin 500 mg/ Dextrose 255 mls @ 125 mls/hr IV Q24H [facility]; Protocol Stop: 03/31/19 13:59 Last Infusion: 03/24/19 16:09 Dose: 0 mls/hr Documented by: [id number] Admin: 03/24/19 14:06 Dose: 125 mls/hr Documented by: [id number] Lactated Ringer's (Lr) 1,000 mls @ 80 mls/hr IV .[id number] [facility] Stop: 04/23/19 13:21 Last Admin: 03/24/19 13:30 Dose: 80 mls/hr Documented by: [id number] Methylprednisolone 40 mg/ (Syringe) 0.64 mls @ 1.5 mls/min IV Q12H [facility] Stop: 04/23/19 13:59 Last Admin: 03/24/19 14:23 Dose: Not Given Documented by: [id number] Insulin Aspart (Novolog Flexpen) 0 units SC ACHS [facility] Stop: 04/23/19 16:29 Last Admin: 03/24/19 14:10 Dose: 4 units Documented by: [id number] Cosigned by: [id number] Metoprolol Succinate (Toprol Xl) 50 mg PO QAM [facility] Stop: 04/23/19 13:21 Last Admin: 03/24/19 14:08 Dose: 50 mg Documented by: [id number] Pantoprazole Sodium (Protonix) 40 mg PO QAM [facility] Stop: 04/23/19 13:21 Last Admin: 03/24/19 14:09 Dose: 40 mg Documented by: [id number] Discontinued Medications Albuterol (Duoneb) 3 ml NEB NOW STA Stop: 03/24/19 09:48 Last Admin: 03/24/19 10:52 Dose: 3 ml Documented by: [id number] Clindamycin Phosphate 600 mg/ (Dextrose) 54 mls @ 100 mls/hr IV ONE ONE Stop: 03/24/19 10:39 Last Infusion: 03/24/19 12:05 Dose: 0 mls/hr Documented by: [id number] Admin: 03/24/19 11:29 Dose: 100 mls/hr Documented by: [id number] Methylprednisolone (Solumedrol) 40 mg IV BID [facility] Stop: 04/23/19 13:21 Last Admin: 03/24/19 14:34 Dose: Not Given Documented by: [id number] Imaging Data Radiologist's Impression: Radiology results as stated below per my review and the radiologist's interpretation: SINGLE VIEW CHEST CLINICAL HISTORY: Cough and dyspnea. FINDINGS: An AP, portable, upright chest radiograph is compared to chest x-ray and chest CT dated 03/22/2019. The examination is degraded by portable technique and patient rotation. The cardiomediastinal silhouette is unremarkable noting atherosclerotic calcification of the thoracic aorta. There is patchy airspace consolidation at the left lung base. No large pleural effusion or pneumothorax is seen. The skeletal structures are osteopenic. The bony thorax is grossly intact. IMPRESSION: There is patchy airspace consolidation at the left lung base. Correlate clinically for evidence of pneumonia/aspiration pneumonitis. Radiographic follow-up to resolution is recommended. ACT 112: Positive. There are findings on this exam that require communication between the performing entity and the patient following Patient Test Result Information Act ([place] Act 112) guidelines. Electronically signed by: Joey Patterson M.D. 03/24/2019 10:02 AM Blood Pressure Blood Pressure Findings: Elevated blood pressure Blood Pressure Disposition: further management by hospitalist Discharge Plan Visit Data *Final* Discharge Date/Time: 03/24/19 12:54 Chief Complaint: Fever ED Provider: Modesto Lua Discharge Problem: Aspiration pneumonia, Hypoxia Patient Disposition: Admitted As Inpatient Discharge Instructions Interventions: ED Discharge Assessment Last Done: 03/24/19 12:54 Discharge Problem: Aspiration pneumonia Qualifiers: Aspiration pneumonia type: unspecified Laterality: unspecified laterality Lung location: unspecified part of lung Qualified Code(s): J69.0 - Pneumonitis due to inhalation of food and vomit The scribe's documentation has been prepared under my direction and personally reviewed by me in its entirety. I confirm that the note above accurately reflects all work, treatment, procedures, and medical decision making performed by me.
[2019-03-24 16:37] LABS: Influenza A virus by PCR Neg for Influ A (Neg); Influenza B virus by PCR Neg for Influ B (Neg)
[2019-03-24] MEDS: PRAVASTATIN SOD 40 MG TAB PO SCH (17:03)
[2019-03-24] MEDS: INSULIN GLARGINE SOLOSTAR 100 UNITS/ML 3 ML PEN SQ SCH (20:39)
[2019-03-24] MEDS: ESCITALOPRAM OXALATE 20 MG TAB PO SCH (20:40)
[2019-03-24] MEDS: MOMETASONE FUROATE 14 PUFF/1 INHALER INH SCH (20:40)
[2019-03-24] MEDS: DOCUSATE SODIUM 100 MG CAP PO SCH (20:40)
[2019-03-24] MEDS: FLUTICASONE PROPIONATE NA SPR 16 GM BTL SCH (20:41)
[2019-03-24] MEDS: HEPARIN SOD 5,000 UNIT/0.5 ML VIAL SQ SCH (20:43)
[2019-03-24 22:00] LABS: Appearance Urine Clear (Clear); Bilirubin Urine Negative (Negative); Blood Urine Negative (Negative); Color Urine Yellow; Glucose Urine UA Negative (Negative); Ketones Urine Negative (Negative); Leukocyte Esterase Urine Negative (Negative); Nitrite Urine Negative (Negative); Protein Urine Negative (Negative); Specific Gravity Urine 1.009 (1.000-1.030); Urobilinogen Urine Negative (Negative); pH Urine 5.5 (4.5-7.5)
[2019-03-25] MEDS: methylPREDNISolone 40 MG in SYRINGE 0 ML IV SCH ×2 (02:13→13:04)
[2019-03-25] MEDS: LACTATED RINGER'S 1,000 ML IV SCH ×2 (02:13→13:04)
[2019-03-25 06:44] LABS: BUN Creatinine Ratio 20.6 (10-20); Calcium 8.7 mg/dl (8.5-10.1); Creatinine Clr Calc Pharmacy 42.6 ml/min; Est GFR (African American) 51.7; Est GFR (Non-African American) 44.6; Potassium 4.1 mmol/L (3.5-5.1)
[2019-03-25] MEDS: ALBUT/IPRATROP 3MG/0.5MG NEB 3 ML VIAL NEB SCH ×4 (07:12→19:33)
[2019-03-25] MEDS: DOCUSATE SODIUM 100 MG CAP PO SCH ×2 (08:07→21:19)
[2019-03-25] MEDS: MOMETASONE FUROATE 14 PUFF/1 INHALER INH SCH ×2 (08:07→21:24)
[2019-03-25] MEDS: METOPROLOL SUCC 50MG EXT REL TAB PO SCH (08:07)
[2019-03-25] MEDS: PANTOprazole 40 MG TAB PO SCH ×2 (08:08→21:23)
[2019-03-25] MEDS: CLOPIDOGREL BISULFATE 75 MG TAB PO SCH (08:08)
[2019-03-25] MEDS: CHOLECALCIFEROL 1,000 UNITS TAB PO SCH (08:09)
[2019-03-25] MEDS: FLUTICASONE PROPIONATE NA SPR 16 GM BTL SCH ×2 (08:10→21:19)
[2019-03-25] MEDS: HEPARIN SOD 5,000 UNIT/0.5 ML VIAL SQ SCH ×2 (08:12→21:26)
[2019-03-25] MEDS: INSULIN GLARGINE SOLOSTAR 100 UNITS/ML 3 ML PEN SQ SCH ×2 (08:12→21:20)
[2019-03-25] MEDS: INSULIN ASPART 100 UNITS/ML 3 ML PEN SC SCH ×4 (08:14→21:29)
[2019-03-25] MEDS: GABAPENTIN 600 MG TAB PO SCH ×3 (08:15→21:22)
[2019-03-25] MEDS: ASPIRIN 81 MG ECTAB PO SCH (08:55)
[2019-03-25] MEDS ORDERED: NON-FORMULARY MEDICATION (Biotin 10,000 MCG) SL SCH (09:00)
--- NOTE | 2019-03-25 09:29 | Hospitalist Progress Note ---
Date of Service March 25, 2019 Assessment & Plan (1) Aspiration pneumonia: Liv is a 78-year-old female with a past medical history of asthma, COPD, CKD, paramedian CVA of the carey, stable meningioma, PVCs, type 2 diabetes mellitus insulin-dependent, and CAMRON who was recently admitted 03/23 for acute hypoxic respiratory failure secondary to pneumonia versus asthma exacerbation who has been readmitted for acute hypoxic respiratory failure concerning for aspiration pneumonia with an asthma exacerbation. Acute hypoxic respiratory failure 2/2 aspiration pneumonia with asthma exacerbation No prior spirometry records available in chart review 3 L oxygen requirement, no prior home O2 requirement Chest x-ray shows interval worsening of left lower lobe consolidations Afebrile, no leukocytosis Influenza a/B negative Continue Rocephin, azithromycin Methyl prednisolone 40 mg twice daily DuoNebs every 4 hours as needed Albuterol every 4 hours as needed Continue mometasone inhaled twice daily Concern for recurrent aspiration pneumonia. Speech eval with FL barium study pending, not able to do today anticipate study on . Slippery DM2 diet until eval. She has a hx of esophageal dilation, may also have strictures contributing to her presentation. DEB on CKD 3, resolved Baseline creatinine 1.1 Elevated to 1.29 on admission, return to baseline Chronically elevated troponins Noted to be at baseline on last recent admission No cardiac symptoms at this time No troponin ordered at this time Elevation clinically, EKG if needed for chest pain Hypertension Continue metoprolol 50 mg p.o. 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 LR at 80 cc/h. DVT prophylaxis: Heparin 5000 subcu twice daily CODE STATUS: DNR/DNI (2) DEB (acute kidney injury): (3) Hypoxia: (4) Hypertension: (5) GERD (gastroesophageal reflux disease): (6) Acute respiratory failure with hypoxia: (7) Asthma: (8) Sleep apnea: (9) Osteoarthritis: (10) Severe obstructive sleep apnea: (11) Type 2 DM with CKD stage 3 and hypertension: (12) Morbid obesity: (13) Left pontine stroke: (14) PVC (premature ventricular contraction): (15) Depression: (16) Anxiety: (17) Elevated troponin level: Supervising Physician Co-Signing Physician Notes Resident Physician Supervision Note: I was present with Dr. Chi Hernandez during the history and exam. I discussed the case with the resident and agree with the findings and plan as documented in the note. Any exceptions or clarifications are listed here: patient c/o hoarse voice. Worse in the last few days. States she has had off/on hoarseness of voice for months. "my sister has told me my voice is hoarse." She also mentions excessive drooling/saliva production in the last few days. She asks "do you think I had another stroke?" Does c/o dyspnea. Lastly, mentions she had EGD with dilatation in the summer for a stricture. Performed by Dr Alcantara of [facility]. exam: gen - obese, NAD eyes - lateral strabismus right eye mouth - MMM, crowded posterior pharynx, no thrush voice - hoarse heart - RRR, s1 s2 lungs - crackles both bases, worse on left; minimal wheezing b/l abd - soft NT ND BS+ ext - trace edema b/l, pulses 2+ b/l neuro - strength 5/5 x 4 exts; speech is fluent/clear labs - Cr 1.1 recent video swallow test - distal esophageal dysmotility microcytosis on CBC A/P: 1. acute hypoxic resp failure - improving. Suspect combination of LLL pneumonia and asthma exacerbation are culprits. Pneumonia suspected to be aspiration in etiology as she had a choking spell at home prior to coming back to hospital. reasonable to change antibiotics back to ORAL. cont IV steroids another day. supportive care. 2. dysphagia - plan for barium swallow evaluation on SUNDAY as recommended by speech. If barium swallow shows anatomic abnormalities then will formally consult Dr Alcantara's group. 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 3. hoarse voice - acute/chronic - vocal cord irritation from infection? vocal cord irritation from GERD? vocal cord irritation from recent aspiration event/choking event? combination of factors? Increase PPI to twice daily. Treat asthma/pneumonia. Barium swallow on . Consider ENT eval as outpatient. 4. excessive drooling/saliva production - etiology? Again consider ENT evaluation. I don't see evidence of new stroke on physical exam; defer on repeat MRI. Perhaps something esophageal is causing inability to properly swallow her saliva. Barium swallow on . Follow. 5. morbid obesity - BMI 38.5 6. T2DM - due to steroids will need to adjust insulin. Pt, Ot evals Documented By: Silverio Billings MD change observation status to full admission status Derick Peck is seen at the bedside this morning. She reports she continues to feel short of breath, and was wheezing overnight. She reports her night otherwise was uneventful, although she continues to be worried about her recurrent hospitalizations and recurrent episodes of difficulty breathing with wheezing. She denies fever, chills, sweats overnight. She is not having any chest pain or chest pressure this morning. No palpitations. She has had wheezing this morning, just finished a nebulizer treatment about 20 minutes ago which helped a little bit. She denies abdominal pain, nausea, vomiting, diarrhea, constipation. She endorses difficulty swallowing at baseline, and commonly coughs when eating. No other acute concerns this morning. Review of Systems Review of Systems: Constitutional: Denies fever, chills. Endorses fatigue. Eyes: Denies Acute vision change. ENT: Denies ear pain, sore throat, sinus pain Cardiovascular: Denies Chest pain, chest pressure, palpitations Respiratory: Endorses shortness of breath, wheezing, dry cough. Denies difficulty breathing this morning. Gastrointestinal: Denies abdominal pain, nausea, vomiting, constipation, diarrhea Genitourinary: Denies pain with urination, urinary urgency, urinary frequency Musculoskeletal: Denies acute focal weakness, muscle aches/pain, joint aches/pain Integumentary:Denies rash, lesions, bruising Neurological: Denies headache, focal weakness. Endorses baseline neuropathy. Physical Exam Physical Exam: General: A&Ox3. NAD. Cooperative. HEENT: Atraumatic, normocephalic. Pulm: Diminished air movement. Diffuse inspiratory and expiratory wheezes appreciated. No rales, no rhonchi. Symmetrical chest rise. No Use of accessory muscles of breathing. No respiratory distress. Cardiac: RRR, -mrg. Radial pulses intact and symmetrical. Abdominal: Nontender, nondistended, soft. BS present. Results & Data Vital Signs (Past 12 Hours) Vital Signs Temp Pulse Pulse Resp BP Pulse Ox 03/25/19 07:12 68 19 93 03/25/19 07:06 36.6 C 74 19 147/74 H 94 03/25/19 04:07 36.5 C 69 20 157/81 H 97 03/25/19 00:00 78 03/24/19 22:57 36.2 C L 75 19 141/78 H 98 Resident Activity Tracking Resident Involvement: Resident Care Provided Care Provided: Adult Hospital Medicine (1) Aspiration pneumonia Aspiration pneumonia type: unspecified Laterality: unspecified laterality Lung location: unspecified part of lung Qualified Code(s): J69.0 - Pneumonitis due to inhalation of food and vomit (2) Hypertension Hypertension type: unspecified Qualified Code(s): I10 - Essential (primary) hypertension
--- NOTE | 2019-03-25 10:04 | Fluoroscopy Report ---
FL video swallow CLINICAL HISTORY: 78 years-old Female presenting with aspiration. TECHNIQUE: Video fluoroscopic evaluation of swallowing was performed in the AP and lateral projection s in conjunction with speech pathology. The patient was administered various textures, including nect ar-thick and thin liquid barium, a barium coated wafer, and barium pudding. COMPARISON: 10/08/2018. FINDINGS: Limited evaluation of the esophagus suggests mild delayed or secondary esophageal contractions in the distal esophagus. Normal oral transit, including normal tongue-soft palate seal. Normal soft palate-superior constricto r muscle seal without evidence of nasopharyngeal regurgitation. Normal oral transport/propulsion of t he food bolus. Normal hyoid elevation and epiglottic deflection. No evidence of a significant pharyng eal bolus residual. None of the administered textures resulted in laryngeal penetration within the laryngeal vestibule. N one of the administered textures resulted in aspiration of barium contrast below the level of the emily e vocal folds. Fluoroscopy dosage (mGy): Not available. Fluoroscopy time: 2.2 minutes. Number or time of high level fluoroscopy (HLF), digital spot, or digital subtraction images: 0. IMPRESSION: 1. No aspiration identified. 2. Possible mild distal esophageal dysmotility. 3. Please see the speech pathologist report for detailed findings and recommendations. ACT 112: Negative or not required by law. Electronically signed by: Chi Blackwell M.D. 03/25/2019 10:03 AM
[2019-03-25] MEDS: cefTRIAXone SODIUM 2,000 MG in DEXTROSE 5% 50 ML IV SCH (13:05)
[2019-03-25] MEDS: AZITHROMYCIN 500 MG in DEXTROSE 5% 250 ML IV SCH (13:05)
[2019-03-25] MEDS: PRAVASTATIN SOD 40 MG TAB PO SCH (16:56)
[2019-03-25] MEDS ORDERED: Nursing to Pharmacy Communication ONE (18:54)
[2019-03-25] MEDS: ESCITALOPRAM OXALATE 20 MG TAB PO SCH (21:22)
[2019-03-26] MEDS: methylPREDNISolone 40 MG in SYRINGE 0 ML IV SCH ×2 (01:57→13:01)
[2019-03-26 06:21] LABS: Basophils # (auto) 0.01 K/uL (0-0.2); Basophils % (auto) 0.1 %; Eosinophils # (auto) 0.01 K/uL (0-0.5); Eosinophils % (auto) 0.1 %; Hematocrit (blood only) 34.7 % (37-47); Hemoglobin 10.7 g/dL (12.0-16.0); Immature Granulocytes # (auto) 0.06 K/uL (0.00-0.02); Immature Granulocytes % (auto) 0.7 %; Lymphocytes # (auto) 0.74 K/uL (1.2-3.4); Lymphocytes % (auto) 8.7 %; Mean Corpuscular Hemoglobin 23.8 pg (25-34); Mean Corpuscular Hgb Conc 30.8 g/dL (32-36); Mean Corpuscular Volume 77.1 fL (80-100); Mean Platelet Volume 9.2 fL (7.4-10.4); Monocytes # (auto) 0.24 K/uL (0.11-0.59); Monocytes % (auto) 2.8 %; Neutrophils # (auto) 7.41 K/uL (1.4-6.5); Neutrophils % (auto) 87.6 %; Platelet Count 119 K/uL (130-400); RDW Coefficient of Variation 13.8 % (11.5-14.5); RDW Standard Deviation 38.7 fL (36.4-46.3); White Blood Count 8.47 K/uL (4.8-10.8)
[2019-03-26 06:50] LABS: BUN Creatinine Ratio 22.2 (10-20); Creatinine Clr Calc Pharmacy 40.3 ml/min; Est GFR (African American) 48.2; Est GFR (Non-African American) 41.6; Potassium 4.4 mmol/L (3.5-5.1)
[2019-03-26] MEDS: ALBUT/IPRATROP 3MG/0.5MG NEB 3 ML VIAL NEB SCH ×4 (07:06→18:49)
[2019-03-26] MEDS: CLOPIDOGREL BISULFATE 75 MG TAB PO SCH (08:42)
[2019-03-26] MEDS: DOCUSATE SODIUM 100 MG CAP PO SCH ×2 (08:42→20:31)
[2019-03-26] MEDS: PANTOprazole 40 MG TAB PO SCH ×2 (08:43→20:31)
[2019-03-26] MEDS: CHOLECALCIFEROL 1,000 UNITS TAB PO SCH (08:43)
[2019-03-26] MEDS: ASPIRIN 81 MG ECTAB PO SCH (08:43)
[2019-03-26] MEDS: FLUTICASONE PROPIONATE NA SPR 16 GM BTL SCH ×2 (08:44→20:27)
[2019-03-26] MEDS: METOPROLOL SUCC 50MG EXT REL TAB PO SCH (08:44)
[2019-03-26] MEDS: MOMETASONE FUROATE 14 PUFF/1 INHALER INH SCH ×2 (08:45→20:26)
--- NOTE | 2019-03-26 09:24 | Hospitalist Progress Note ---
Date of Service March 26, 2019 Assessment & Plan (1) Aspiration pneumonia: Liv is a 78-year-old female with a past medical history of asthma, COPD, CKD, paramedian CVA of the carey, stable meningioma, PVCs, type 2 diabetes mellitus insulin-dependent, and CAMRON who was recently admitted 03/23 for acute hypoxic respiratory failure secondary to pneumonia versus asthma exacerbation who has been readmitted for acute hypoxic respiratory failure concerning for aspiration pneumonia with an asthma exacerbation. Acute hypoxic respiratory failure 2/2 aspiration pneumonia with asthma exacerbation No prior spirometry records available in chart review 3 L oxygen requirement weaned to 2 L overnight, no prior home O2 requirement Chest x-ray shows interval worsening of left lower lobe consolidations Afebrile, no leukocytosis Influenza a/B negative Convert IV Ceftriax/Azithro to PO Azithromycin/Omnicef Methyl prednisolone 40 mg twice daily DuoNebs every 4 hours as needed Albuterol every 4 hours as needed - +Incentive Spirometry + Spiriva qam Continue mometasone inhaled twice daily Concern for recurrent aspiration pneumonia. Speech eval with FL barium study pending, not able to do today anticipate study on . Slippery DM2 diet until eval. She has a hx of esophageal dilation, may also have strictures contributing to her presentation. DEB on CKD3 Baseline creatinine 1.1 Elevated to 1.29 on admission, normalized, and mild increase to 1.24 this morning Encourage p.o. intake Chronically elevated troponins Noted to be at baseline on last recent admission No cardiac symptoms at this time No troponin ordered at this time Elevation clinically, EKG if needed for chest pain Hypertension Continue metoprolol 50 mg p.o. daily Target blood pressure 140-160, she has had exacerbation of hypotensive systems with blood pressures at 120 and below No DENILSON/ARB 2/2 allergies Type 2 diabetes mellitus, insulin-dependent Continue glargine 32 units twice daily Insulin SSI. Hyperglycemic overnight and this morning, changed correction factor from 1-25 to 1-20, continue carb ratio 1: 7. One-time 3 additional dose aspart this morning given. 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 DVT prophylaxis: Heparin 5000 subcu twice daily CODE STATUS: DNR/DNI Supervising Physician Co-Signing Physician Notes Resident Physician Supervision Note: I interviewed and examined the patient. I discussed the case with PGY2 Dr Chi Hernandez and agree with the findings and plan as documented in the note. Any exceptions or clarifications are listed here: patient again c/o excessive saliva and drooling at times. She has been able to tolerate her meals. No choking spells. No cough. No dyspnea at rest or orthopnea but has had PULIDO with walking. exam: gen - obese, NAD, got out of breath with moving around in bed eyes - lateral strabismus right eye - chronic mouth - MMM, crowded posterior pharynx, no thrush voice - hoarse again; no swelling in anterior neck; speech clear; no stridor heart - RRR, s1 s2 lungs - crackles left base (mild); no wheezes today; decreased BS throughout abd - soft NT ND BS+ ext - trace-1+ edema b/l, pulses 2+ b/l labs - Cr 1.2 microcytosis on CBC A/P: 1. acute hypoxic resp failure - improving/resolved as O2 weaned off. Suspect combination of LLL pneumonia and asthma exacerbation are culprits. Pneumonia suspected to be aspiration in etiology as she had a choking spell at home prior to coming back to hospital. And, recent chest CT a few days ago suggested possible aspiration. Finish course of antibiotics (if you include prior admission dating to 03/22/19 this is day #5 of abx). Currently on omnicef and zithromax. Cont steroids - can wean to PO prednisone tomorrow. Taper over ~7 days or so. 2. dysphagia - barium swallow evaluation on SUNDAY as recommended by speech. If barium swallow shows anatomic abnormalities then will formally consult Dr Alcantara's group. 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 If [id number] is felt to be normal then dysphagia may be lingering from her pontine stroke in 01/2019. 3. hoarse voice - acute/chronic - vocal cord irritation from infection? vocal cord irritation from GERD? vocal cord irritation from recent aspiration event/choking event? combination of factors? Cont PPI twice daily. Treat asthma/pneumonia. Barium swallow on . Consider ENT eval as outpatient. 4. excessive drooling/saliva production - etiology? Again consider ENT evaluation. Perhaps something esophageal is causing inability to properly swallow her saliva. Barium swallow on . Re-eval after. 5. morbid obesity - BMI 38.5 6. T2DM - due to steroids she is uncontrolled; agree w/ increase in novolog. May need additional adjustments as well. 7. edema - recheck cxr, eval for developing pulmonary edema. Weight today is 95.4kg - similar to previous weights. Consider 1-2 days of gentle diuresis however. Steroids could be contributing to edema. 8. DVT proph - increase heparin to TID dosing. 9. microcytosis - check iron studies in am. Pt, Ot evals pending Documented By: Silverio Sepulveda Liv is seen at the bedside this monring. She feels 'a little better.' She is concerned about her breathing and the swallow study tomorrow. She reports that 'she does not normally worry about choking or her saliva, but has noticed her swallowing more since thinking about it.' She feels her energy is a little improved, and had not felt feverish. She reports she continues to feel tight in the chest with reduced air movement, no wheezing this morning but has felt intermittently wheezy since admission. No chest pain. No syncope/presyncope. NO change in vision (baseline diplopia and strabismus which transitions with gaze). Review of Systems Review of Systems: Constitutional: Denies fever, chills. Endorses fatigue improved from prior. Eyes: Denies acute vision change. ENT: Denies ear pain, sore throat, sinus pain Cardiovascular: Denies Chest pain, chest pressure, palpitations Respiratory: Endorses shortness of breath, wheezing, dry cough. Feels breathing is a little better as noted in HPI Musculoskeletal: Denies acute focal weakness, muscle aches/pain, joint aches/pain Integumentary:Denies rash, lesions, bruising Neurological: Denies headache. Endorses baseline neuropathy. Physical Exam Physical Exam: General: A&Ox3. Appears fatigued. Cooperative. HEENT: Atraumatic, normocephalic. At primary gaze, There is right exotropia, on leftward gaze right eye corrects left eye develops esotropia. EoM intact without nystagmus. No visual field cuts. PERLAA. Pulm: Diminished air movement. No wheezes, but minimal air movement appreciated. No rhonchi. NARD. Cardiac: RRR, -mrg. Radial pulses intact and symmetrical. Abdominal: Softly distended, obese. BS present. Results & Data Vital Signs (Past 12 Hours) Vital Signs Temp Pulse Pulse Resp BP Pulse Ox 03/26/19 07:06 70 16 98 03/26/19 07:00 36.7 C 72 80 20 142/65 H 91 03/26/19 03:48 36.6 C 68 18 157/83 H 98 03/26/19 02:15 71 03/25/19 23:05 36.8 C 72 20 138/78 97 Resident Activity Tracking Resident Involvement: Resident Care Provided Care Provided: Adult Hospital Medicine (1) Aspiration pneumonia Aspiration pneumonia type: unspecified Laterality: unspecified laterality Lung location: unspecified part of lung Qualified Code(s): J69.0 - Pneumonitis due to inhalation of food and vomit
[2019-03-26] MEDS: INSULIN ASPART 100 UNITS/ML 3 ML PEN SC SCH ×4 (09:26→20:38)
[2019-03-26] MEDS: INSULIN GLARGINE SOLOSTAR 100 UNITS/ML 3 ML PEN SQ SCH ×2 (09:27→20:36)
[2019-03-26] MEDS: HEPARIN SOD 5,000 UNIT/0.5 ML VIAL SQ SCH ×2 (09:27→21:27)
[2019-03-26] MEDS ORDERED: INSULIN ASPART 100 UNITS/ML 3 ML PEN SC ONE (09:30)
[2019-03-26] MEDS: AZITHROMYCIN 250 MG TAB PO SCH (13:23)
[2019-03-26] MEDS: GABAPENTIN 600 MG TAB PO SCH ×2 (16:38→21:25)
[2019-03-26] MEDS: PRAVASTATIN SOD 40 MG TAB PO SCH (17:27)
--- NOTE | 2019-03-26 17:41 | XRay Report ---
XR chest 2V PA/lateral CLINICAL HISTORY: basilar pneumonia, interval change COMPARISON STUDY: Chest CT March 22, 2019. Chest radiograph March 24, 2019. FINDINGS: There is no pneumothorax. There are suspected trace bilateral pleural effusions. Cardiac si ze is normal. Mediastinal contours are normal. There is no evidence for pulmonary edema. Left basilar opacity has improved. IMPRESSION: 1. Mild left basilar opacity, improved since prior exam. 2. Trace bilateral pleural effusions. ACT 112: Negative or not required by law. Electronically signed by: Kirby Anna M.D. 03/26/2019 5:40 PM
--- NOTE | 2019-03-26 18:29 | Billing Data ---
Date of Service March 25, 2019 Coding Level of Care Code 91623 Subseq Hosp Care Lvl 3
--- NOTE | 2019-03-26 18:44 | Billing Data ---
Date of Service March 26, 2019 Coding Level of Care Code 83712 Subseq Hosp Care Lvl 3
[2019-03-26] MEDS: CEFDINIR 300 MG CAP PO SCH (20:32)
[2019-03-26] MEDS: ESCITALOPRAM OXALATE 20 MG TAB PO SCH (21:25)
[2019-03-27] MEDS: HEPARIN SOD 5,000 UNIT/0.5 ML VIAL SQ SCH ×3 (05:45→21:35)
[2019-03-27] MEDS: ALBUT/IPRATROP 3MG/0.5MG NEB 3 ML VIAL NEB SCH ×2 (07:06→11:19)
[2019-03-27 08:07] LABS: Hematocrit (blood only) 34.6 % (37-47); Hemoglobin 10.8 g/dL (12.0-16.0); Mean Corpuscular Hemoglobin 24.5 pg (25-34); Mean Corpuscular Hgb Conc 31.2 g/dL (32-36); Mean Corpuscular Volume 78.5 fL (80-100); Mean Platelet Volume 8.8 fL (7.4-10.4); Platelet Count 139 K/uL (130-400); RDW Coefficient of Variation 13.9 % (11.5-14.5); Red Blood Count 4.41 M/uL (4.2-5.4); White Blood Count 8.41 K/uL (4.8-10.8)
[2019-03-27] MEDS ORDERED: GLUCAGON FOR INJ 1 MG VIAL SQ PRN (08:16)
[2019-03-27] MEDS ORDERED: CARBOHYDRATES FOR HYPOGLYCEMIA PO PRN (08:16)
[2019-03-27] MEDS ORDERED: DEXTROSE 50% 50 ML SYRINGE IV PRN (08:16)
[2019-03-27] MEDS ORDERED: GLUCOSE 10 TABS/TUBE PO PRN (08:16)
[2019-03-27] MEDS ORDERED: GLUCOSE 40% GEL 15 GM TUBE PO PRN (08:16)
[2019-03-27 08:24] LABS: BUN Creatinine Ratio 23.7 (10-20); Calcium 9.1 mg/dl (8.5-10.1); Creatinine Clr Calc Pharmacy 41.9 ml/min; Est GFR (African American) 50.6; Est GFR (Non-African American) 43.7; Potassium 3.8 mmol/L (3.5-5.1)
[2019-03-27 08:28] LABS: Ferritin 93.2 ng/ml (8-388)
--- NOTE | 2019-03-27 08:52 | Hospitalist Progress Note ---
Date of Service March 27, 2019 Assessment & Plan (1) Aspiration pneumonia: Liv is a 78-year-old female with a past medical history of asthma, COPD, CKD, paramedian CVA of the carey, stable meningioma, PVCs, type 2 diabetes mellitus insulin-dependent, and CAMRON who was recently admitted 03/23 for acute hypoxic respiratory failure secondary to pneumonia versus asthma exacerbation who has been readmitted for acute hypoxic respiratory failure concerning for aspiration pneumonia with an asthma exacerbation. Acute hypoxic respiratory failure 2/2 aspiration pneumonia with asthma exacerbation No prior spirometry records available in chart review 2 L nasal cannula requirement weaned to room air overnight, no prior home oxygen requirement Chest x-ray shows interval worsening of left lower lobe consolidations Afebrile, no leukocytosis Influenza a/B negative Continue azithromycin/Omnicef 5-day course Methyl prednisolone 40 mg twice daily converted to prednisone 40 mg daily DuoNebs every 4 hours as needed Albuterol every 4 hours as needed - Incentive Spirometry - Spiriva qam Continue mometasone inhaled twice daily Concern for recurrent aspiration pneumonia. Speech eval with [place] barium study pending, for this afternoon. Slippery DM2 diet until eval. She has a hx of esophageal dilation, may also have strictures contributing to her presentation. DEB on CKD3 Baseline creatinine 1.1 Elevated to 1.29 on admission, normalized at 1.19 today Encourage p.o. intake Chronically elevated troponins Noted to be at baseline on last recent admission No cardiac symptoms at this time No troponin ordered at this time Elevation clinically, EKG if needed for chest pain Hypertension Continue metoprolol 50 mg p.o. daily Target blood pressure 140-160, she has had exacerbation of hypotensive systems with blood pressures at 120 and below No DENILSON/ARB 2/2 allergies Type 2 diabetes mellitus, insulin-dependent Continue glargine 28 units twice daily Insulin SSI. 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 DVT prophylaxis: Heparin 5000 subcu twice daily CODE STATUS: DNR/DNI Disposition: Ongoing pending swallow eval above. Accept[facility] at [facility] when clinically ready. Declined OT today 2/2 fatigue. Supervising Physician Co-Signing Physician Notes I personally examined the patient and verified all chiu points of history and exam, discussed case, and agree with decision making with Dr Hernandez. feeling ok now. waiting for barium swallow. breathing better. discussed next steps based on possible outcomes from barium swallow. vitals noted nad heent nc at mmm. breathing unlabored no accessory muscles good effort. no new neuro deficits no pallor or icterus. pleasantly anxious. pneumonia - aspiration most likely. speech eval noted. await barium swallow. acute hypoxic respiratory failure on admission manifest by pulse ox of 87% on RA and shortness of breath has improved. continue current care otherwise. otherwise as above Subjective Elyssa is seen at the bedside this morning. She reports she had a rough night, and slept poorly. She reports that she sleeps poorly due to the evening dose of IV steroids, and acknowledges that she may sleep better now that her steroids have been converted to a morning p.o. dose of prednisone. 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 She reports her breathing feels similar to yesterday, she continues to be very concerned about the potential aspiration and is anxious about her barium swallow this afternoon. She denies fever, chills, sweats overnight. She endorses intermittent wheezing. She reports she still feels like her breathing is tight. She feels fatigued, especially since she slept poorly. She is not having nausea this morning. She had a hypoglycemic episode this morning with a glucose to 60s which normalized following orange juice. She did not feel syncopal or presyncopal. Review of Systems Review of Systems: Constitutional: Denies fever, chills. Endorses fatigue. Eyes: Denies Acute vision change. ENT: Denies ear pain, sore throat, sinus pain Cardiovascular: Denies Chest pain, chest pressure, palpitations Respiratory: Endorses shortness of breath, wheezing, dry cough. Denies difficulty breathing this morning. Gastrointestinal: Denies abdominal pain, nausea, vomiting, constipation, diarrhea. Endorses normal appetite Genitourinary: Denies pain with urination Musculoskeletal: Denies acute focal weakness, muscle aches/pain, joint aches/pain Integumentary:Denies rash, lesions, bruising Neurological: Denies headache, focal weakness. Endorses baseline neuropathy. Physical Exam Physical Exam: General: A&Ox3. NAD. Cooperative. HEENT: Atraumatic, normocephalic. Pulm: Diminished air movement. No wheezes appreciated on exam this morning. No rales, no rhonchi. Symmetrical chest rise. No Use of accessory muscles of breathing. No respiratory distress. Cardiac: RRR, -mrg. Radial pulses intact and symmetrical. Abdominal: Nontender, nondistended, soft. BS present. Results & Data Vital Signs (Past 12 Hours) Vital Signs Temp Pulse Pulse Resp BP Pulse Ox 03/27/19 07:11 36.4 C L 70 18 165/81 H 92 03/27/19 03:24 36.7 C 72 18 144/78 H 92 03/26/19 23:36 36.9 C 76 21 140/71 94 03/26/19 23:18 83 Resident Activity Tracking Resident Involvement: Resident Care Provided Care Provided: Adult Hospital Medicine (1) Aspiration pneumonia Aspiration pneumonia type: unspecified Laterality: unspecified laterality Lung location: unspecified part of lung Qualified Code(s): J69.0 - Pneumonitis due to inhalation of food and vomit
[2019-03-27] MEDS: predniSONE 20 MG TAB PO SCH (09:14)
[2019-03-27] MEDS: CEFDINIR 300 MG CAP PO SCH ×2 (09:15→21:35)
[2019-03-27] MEDS: DOCUSATE SODIUM 100 MG CAP PO SCH ×2 (09:15→21:34)
[2019-03-27] MEDS: ASPIRIN 81 MG ECTAB PO SCH (09:15)
[2019-03-27] MEDS: CHOLECALCIFEROL 1,000 UNITS TAB PO SCH (09:15)
[2019-03-27] MEDS: CLOPIDOGREL BISULFATE 75 MG TAB PO SCH (09:15)
[2019-03-27] MEDS: PANTOprazole 40 MG TAB PO SCH ×2 (09:16→21:35)
[2019-03-27] MEDS: METOPROLOL SUCC 50MG EXT REL TAB PO SCH (09:16)
[2019-03-27] MEDS: FLUTICASONE PROPIONATE NA SPR 16 GM BTL SCH ×2 (09:16→21:36)
[2019-03-27] MEDS: MOMETASONE FUROATE 14 PUFF/1 INHALER INH SCH ×2 (09:17→21:39)
[2019-03-27] MEDS: INSULIN ASPART 100 UNITS/ML 3 ML PEN SC SCH ×4 (09:18→21:36)
[2019-03-27] MEDS: INSULIN GLARGINE SOLOSTAR 100 UNITS/ML 3 ML PEN SQ SCH ×2 (09:18→21:38)
[2019-03-27] MEDS: TIOTROPIUM BROMIDE 5 PUFF/90 MCG INH INH SCH (09:18)
[2019-03-27] MEDS ORDERED: ALBUT/IPRATROP 3MG/0.5MG NEB 3 ML VIAL NEB PRN (11:36)
[2019-03-27] MEDS: BENZOCAINE 20% (ORAJEL) 11.9 GM TUBE MT PRN ×2 (12:06→22:11)
--- NOTE | 2019-03-27 14:27 | Fluoroscopy Report ---
FL barium swallow CLINICAL HISTORY: Dysphasia. COMPARISON STUDY: Barium swallow July 16, 2017. FLUOROSCOPY TIME: 2.7 minutes. FLUOROSCOPIC IMAGES: 27 FINDINGS: Mild esophageal dysmotility is noted. Moderate gastroesophageal reflux was elicited. No hia jb hernia was identified. On several initial images, there was moderate narrowing of the distal esop hagus. This potential stricture was not confirmed on subsequent images. Patient deferred swallowing a barium tablet. IMPRESSION: 1. Possible distal esophageal stricture, as described above. If not recently performed, upper endosco py is suggested. 2. Mild esophageal dysmotility. 3. Moderate gastroesophageal reflux. ACT 112: Negative or not required by law. Electronically signed by: Kirby Anna M.D. 03/27/2019 2:26 PM
[2019-03-27] MEDS: AZITHROMYCIN 250 MG TAB PO SCH (14:46)
--- NOTE | 2019-03-27 16:00 | Billing Data ---
Date of Service March 27, 2019 Coding Level of Care Code 93696 Subseq Hosp Care Lvl 2
[2019-03-27] MEDS: GABAPENTIN 600 MG TAB PO SCH ×2 (17:30→21:36)
[2019-03-27] MEDS: PRAVASTATIN SOD 40 MG TAB PO SCH (17:30)
[2019-03-27] MEDS: ESCITALOPRAM OXALATE 20 MG TAB PO SCH (21:34)
[2019-03-28] MEDS: HEPARIN SOD 5,000 UNIT/0.5 ML VIAL SQ SCH ×2 (04:52→13:26)
[2019-03-28 06:19] LABS: Basophils # (auto) 0.01 K/uL (0-0.2); Basophils % (auto) 0.1 %; Eosinophils # (auto) 0.04 K/uL (0-0.5); Eosinophils % (auto) 0.5 %; Hematocrit (blood only) 34.8 % (37-47); Hemoglobin 10.8 g/dL (12.0-16.0); Immature Granulocytes % (auto) 2.3 %; Lymphocytes % (auto) 18.5 %; Mean Corpuscular Hemoglobin 24.4 pg (25-34); Mean Corpuscular Volume 78.7 fL (80-100); Mean Platelet Volume 8.8 fL (7.4-10.4); Monocytes # (auto) 0.67 K/uL (0.11-0.59); Monocytes % (auto) 7.7 %; Neutrophils # (auto) 6.15 K/uL (1.4-6.5); Neutrophils % (auto) 70.9 %; Platelet Count 142 K/uL (130-400); RDW Coefficient of Variation 14.1 % (11.5-14.5); RDW Standard Deviation 39.3 fL (36.4-46.3); Red Blood Count 4.42 M/uL (4.2-5.4); White Blood Count 8.67 K/uL (4.8-10.8)
[2019-03-28 06:49] LABS: BUN Creatinine Ratio 28.9 (10-20); Creatinine Clr Calc Pharmacy 43.8 ml/min; Est GFR (African American) 53.3; Potassium 3.9 mmol/L (3.5-5.1)
[2019-03-28] MEDS: TIOTROPIUM BROMIDE 5 PUFF/90 MCG INH INH SCH ×2 (08:42→10:02)
[2019-03-28] MEDS ORDERED: LIDOCAINE 5% 1 PATCH TD SCH (09:00)
--- NOTE | 2019-03-28 09:32 | Gastrointestinal Consultation ---
Date of Consultation March 28, 2019 Assessment & Plan (1) Dysphagia: Ms. Charlton is a 78 yr old female with dysphagia, barium swallow with some suggestion of lower esophageal dysmotility. Esophageal stricture should be ruled out. If present, she would benefit from dilation however, she is currently on Plavix (most recent dose about 27 hrs ago). 1. Will plan for continuing to hold the Plavix. 2. Will plan for OP EGD +/- dilation as indicated, to be completed by Dr. Alcantara during the week of Apr 07, here at [facility]. Our office will contact Ms. Carvalho to arrange. 3. Soft/slippery diet. 4. GI will sign off. Present on Admission?: Yes Supervising Physician Co-Signing Physician Notes I performed a history and physical examination of the patient, including specifically on physical exam - soft, nontender abdomen. I have discussed the patient's management with Jhoana. Please refer to the nurse practitioner's note for the documented findings and plan of care. 78 years old female patient with intermittent dysphagia and current admission for aspiration pneumonia, Swollow study showed possible lower esophageal stricture, she had Hx of Schatzki ring in the past which was dilated. Currently On Plavix. Plan: She will benefit from EGD with dilation however she should hold Plavix for 5-7 days prior to the procedure. Will schedule this as OP, meanwhile mechanical soft diet and use PPI. Recall Gi if needed. History of Present Illness Reason for Consultation: Esophageal stricture, recurrent aspiration pneumon Requesting Physician: Dr. Larose Attending Physician: Augustin Aguilar DO History of Present Illness Ms. Liv Carvalho is a 78 yr old female pt of Darwin Lugo NP with a hx of asthma, COPD, CKD, left paramedian carey stroke, stable right anterior temporal meningioma, PVCs, DM-2 on insulin, CAMRON requiring CPAP, HTN was admitted last week for respiratory failure, but returned again soon after discharge with further SOB on 03/23/19. Currently, not requiring any O2 (pulse Ox 96%) and CXR with improving mild left basilar opacity. She is sitting up in bed, able to answer questions. She is on Plavix. No NSAID use. She reports swallowing difficulties, "for years." She describes feeling that foods "get stuck," after swallowing and points to the lower chest area. She also has some coughing/gagging when trying to swallow but that is "not very often." She underwent EGD in October by Dr. Alcantara for these symptoms, with findings of a GE junction ring that was dilated. Barium swallow completed yesterday suggests lower esophageal dysmotility. Current pneumonia is thought to be related to aspiration and GI is consult to r/o distal esophageal stricture. Allergies Allergy/AdvReac Type Severity Reaction Status Date / Time Bactrim Allergy Severe THROAT Verified 05/14/15 15:22 CLOSED meperidine Allergy Severe almost Verified 03/24/19 10:02 "closed throat" midodrine Allergy Severe "almost Verified 03/24/19 10:02 closed throat" Penicillins Allergy Severe ANAPHYLAXIS Verified 03/24/19 10:02 Quinolones Allergy Severe TOLERATED Verified 03/24/19 10:02 LEVAQUIN IV - SEP 06 sulfamethoxazole Allergy Severe THROAT Verified 03/24/19 10:02 CLOSED trimethoprim Allergy Severe THROAT Verified 03/24/19 10:02 CLOSED diphenoxylate Allergy Intermediate Unknown Verified 03/24/19 10:02 glyburide Allergy Intermediate SEVERE Verified 03/24/19 10:02 ABDOMINAL PAIN metformin Allergy Intermediate SEVERE Verified 03/24/19 10:02 ABDOMINAL PAIN metronidazole [From Flagyl] Allergy Intermediate Hives Verified 03/24/19 10:02 nitrofurantoin Allergy Intermediate Unknown Verified 03/24/19 10:02 oxycodone Allergy Intermediate SEVERE Verified 03/24/19 10:02 WITHDRAWAL SYMPTOMS WHEN TRYING TO STOP TAKING ranitidine Allergy Intermediate Unknown Verified 03/24/19 10:02 repaglinide Allergy Intermediate Unknown Verified 03/24/19 10:02 rosiglitazone Allergy Intermediate Unknown Verified 03/24/19 10:02 DENILSON Inhibitors Allergy Unknown unknown to Verified 03/24/19 10:02 pt atropine Allergy Unknown Unknown Verified 03/24/19 10:02 Histamine H2 Inhibitors Allergy Unknown unknown to Verified 03/24/19 10:02 pt Iodinated Contrast Media Allergy Unknown JULY 2017 Verified 03/24/19 10:02 [facility] -- TOLERATED WITH SLOW INFUSION PER PATIENT phenazopyridine Allergy Unknown Unknown Verified 03/24/19 10:02 carvedilol Allergy Unknown Verified 03/24/19 10:02 clonazepam [From Klonopin] Allergy Unknown Verified 03/24/19 10:02 doxycycline Allergy Unknown Verified 03/24/19 10:02 furosemide [From Lasix] Allergy Unknown Verified 03/24/19 10:02 tolterodine [From Detrol] Allergy Unknown Verified 03/24/19 10:02 carbamazepine AdvReac Severe Unknown Verified 03/24/19 10:02 valproic acid AdvReac Severe Unknown Verified 03/24/19 10:02 albuterol AdvReac Intermediate UNK Verified 03/24/19 10:02 olanzapine AdvReac Intermediate Unknown Verified 03/24/19 10:02 paroxetine AdvReac Intermediate DID NOT Verified 03/24/19 10:02 HELP rofecoxib AdvReac Intermediate Unknown Verified 03/24/19 10:02 temazepam AdvReac Intermediate DID NOT Verified 03/24/19 10:02 HELP diazepam AdvReac Mild SEDATION Verified 03/24/19 10:02 LASTING TOO LONG ibuprofen AdvReac Mild Unknown Verified 03/24/19 10:02 lisinopril AdvReac Mild UNK Verified 03/24/19 10:02 mirtazapine AdvReac Mild Unknown Verified 03/24/19 10:02 Home Medications Home Medications Medication Instructions Recorded Confirmed Type Asmanex Twisthaler 1 inh INHALATION BID 03/21/19 03/24/19 History Basaglar KwikPen U-100 Insulin 32 unit SUBCUT BID 03/21/19 03/24/19 History Novolog Flexpen U-100 Insulin 0 unit SUBCUT TIDM 03/21/19 03/24/19 History Novolog U-100 Insulin aspart 4 unit SUBCUT .Q BREAKFAST 03/21/19 03/24/19 History Novolog U-100 Insulin aspart 6 unit SUBCUT BIDM 03/21/19 03/24/19 History Ocular Lubricant Shameka 1 drp OPB BID PRN 03/21/19 03/24/19 History Salonpas Deep Relieving 1 ea TOPICAL QAM PRN 03/21/19 03/24/19 History Senna Plus 1 tab-cap PO DAILY@1200 03/21/19 03/24/19 History acetaminophen [Tylenol Extra 500 mg PO Q4 PRN 03/21/19 03/24/19 History Strength] albuterol sulfate [Ventolin HFA] 1 - 2 puff INHALATION Q4 PRN 03/21/19 03/24/19 History aspirin [Aspir-81] 81 mg PO QAM 03/21/19 03/24/19 History biotin 10,000 mcg SUBLINGUAL QAM 03/21/19 03/24/19 History clopidogrel [Plavix] 75 mg PO QAM 03/21/19 03/24/19 History docusate sodium [Colace] 100 mg PO BID 03/21/19 03/24/19 History epinephrine 0.3 mg IM UD PRN 03/21/19 03/24/19 History escitalopram oxalate 20 mg PO HS 03/21/19 03/24/19 History fluticasone propionate [Flonase 2 spray INTRANASAL BID 03/21/19 03/24/19 History Allergy Relief] gabapentin [Neurontin] 600 mg PO BID 03/21/19 03/24/19 History loperamide [Imodium A-D] 2 mg PO UD PRN 03/21/19 03/24/19 History melatonin 10 mg PO HS PRN 03/21/19 03/24/19 History metoprolol succinate [Toprol XL] 50 mg PO QAM 03/21/19 03/24/19 History pravastatin 80 mg PO DAILY@1700 03/21/19 03/24/19 History cholecalciferol (vitamin D3) 5,000 unit PO QAM 03/24/19 03/24/19 History [Vitamin D3] azithromycin [Zithromax] 250 mg PO Q24H #1 tab 03/28/19 Rx cefdinir 300 mg PO BID #5 cap 03/28/19 Rx pantoprazole 40 mg PO BID #60 tab 03/28/19 Rx prednisone 10 mg PO DAILY #12 tab 03/28/19 Rx tiotropium bromide [Spiriva with 1 puff INHALATION QAM #1 inh 03/28/19 Rx HandiHaler] Patient History Medical History Admitted to intensive care unit Anxiety Arrhythmia "AN EXTRA HEARTBEAT" Asthma Breast cancer UNSURE WHICH SIDE WAS CANCER. Chronic back pain Chronic neck pain TO HAVE NECK SURGERY WITH DR PATEL CKD (chronic kidney disease) (Chronic) Depression Difficult airway for intubation Dysphagia GERD (gastroesophageal reflux disease) History of benign brain tumor (Chronic) History of esophageal dilatation History of spinal stenosis (Chronic) History of uterine cancer (Resolved) "Postmenopausal vaginal bleeding Endometrial biopsy revealing endometrioid adenocarcinoma Status post total abdominal hysterectomy and bilateral salpingo-oophorectomy Stage pT2 pN0 M0 Status post completion of radiation therapy with external beam radiation as well as 2 HDR treatments. Her total dose was 5500 cGy completed 08/15/2013" Hypertension (Chronic) Left pontine stroke (Chronic) Lymphedema of right arm CHRONIC Meningioma Morbid obesity Neuropathy (Chronic) Osteoarthritis PAC (premature atrial contraction) (Chronic) PVC (premature ventricular contraction) (Chronic) Severe obstructive sleep apnea Sleep apnea Type 2 DM with CKD stage 3 and hypertension (Chronic) Uterine cancer RICHARD BSO Surgical History History of cardiac catheterization (Resolved) NO STENTS History of cataract surgery (Resolved) BILATERAL History of cholecystectomy History of colonoscopy History of esophagogastroduodenoscopy (EGD) History of knee surgery (Resolved) ARTHROSCOPY LEFT KNEE History of mastectomy (Resolved) BILATERAL History of total abdominal hysterectomy (Resolved) BSO Family History Mother Myocardial infarction Social History Preferred Language: Nigerien Communication Ability: Effective Visual Impairment: Partially Limited Hearing Ability: Hard of Hearing Animal Trapper Required: No Beliefs That Will Affect Care: None marital status: / Current Living Situation: Personal Care Facility Current Living Situation Comment: [facility] current occupational status: retired Feels Safe at Home: Yes Smoking Status: Unknown if ever smoked Hx Alcohol Use: No Hx Substance Use: No Childhood Exposure to Second-Hand Smoke: No Dental Care, Regularly: Yes Physical Activity Frequency: Does not Exercise Seatbelt Use: always Sunscreen Use: Yes Review of Systems Review of Systems: ROS: Gen: Denies weakness, fevers, weight loss Eyes: No eye redness, or pain, no recent vision changes Resp: + cough, improving Cardio: No palpitations/irregular beats GI: No abdominal pain, no nausea/vomiting : Denies pain on urination Skin: No jaundice, itching or new rashes Physical Exam Constitutional: WD/WN, vitals as above + obese Eyes: PERRL, conjunctivae normal, anicteric sclerae ENMT: external ear and nose normal, oropharynx normal Neck: trachea midline, no thyromegaly Respiratory: normal respiratory effort Auscultation: + crackles (left base) Cardiovascular: RRR, no murmur, no edema Gastrointestinal (Abdomen): normal bowel sounds, soft, nontender, no hepatosplenomegaly Skin: no rashes, warm and dry Neurologic: PERRL, EOMI, accommodation nl, no face palsy, no dysarthria Psychiatric: Orientation: alert Affect: + anxious affect (slightly) Unable to recall exact detail about most recent EGD but was able to provide a good hx, stating that she had EGD previously in 2019. Lymphatic: no cervical or axillary lymphadenopathy Results & Data Vital Signs (Past 12 Hours) Vital Signs Temp Pulse Pulse Resp BP Pulse Ox 03/28/19 08:11 36.6 C 52 L 18 163/74 H 96 03/28/19 04:00 36.5 C 60 20 138/80 95 03/28/19 01:59 68 03/28/19 00:25 36.8 C 70 20 151/82 H 93 03/27/19 23:28 68
[2019-03-28] MEDS: CHOLECALCIFEROL 1,000 UNITS TAB PO SCH (10:00)
[2019-03-28] MEDS: predniSONE 20 MG TAB PO SCH (10:00)
[2019-03-28] MEDS: CEFDINIR 300 MG CAP PO SCH (10:00)
[2019-03-28] MEDS: METOPROLOL SUCC 50MG EXT REL TAB PO SCH (10:00)
[2019-03-28] MEDS: PANTOprazole 40 MG TAB PO SCH (10:00)
[2019-03-28] MEDS: MOMETASONE FUROATE 14 PUFF/1 INHALER INH SCH (10:01)
[2019-03-28] MEDS: CLOPIDOGREL BISULFATE 75 MG TAB PO SCH (10:01)
[2019-03-28] MEDS: DOCUSATE SODIUM 100 MG CAP PO SCH (10:01)
[2019-03-28] MEDS: FLUTICASONE PROPIONATE NA SPR 16 GM BTL SCH (10:01)
[2019-03-28] MEDS: ASPIRIN 81 MG ECTAB PO SCH (10:03)
[2019-03-28] MEDS: INSULIN GLARGINE SOLOSTAR 100 UNITS/ML 3 ML PEN SQ SCH (10:03)
[2019-03-28] MEDS: INSULIN ASPART 100 UNITS/ML 3 ML PEN SC SCH ×2 (10:04→13:24)
--- NOTE | 2019-03-28 10:57 | Discharge Summary ---
Date of Service March 28, 2019 Admission HPI Per Admitting Provider 78-year-old female with history of asthma, COPD, CKD, left paramedian carey stroke, stable right anterior temporal meningioma, PVCs, type 2 diabetes on insulin, CAMRON requiring CPAP, hypertension presents with worsening respiratory status and fever last night s/p discharge yesterday, 03/23/19 for acute respiratory failure secondary to CAP/asthma exacerbation. Patient reports developing fever, 101 at [facility] last night. She was having more productive cough. Her breathing worsened this morning and she brought to the ED. She reports using her rescue inhaler more. She endorses chest pressure from one armpit to another which is similar to her description from last admission. She feels nauseous but has not vomited and denies abdominal pain. She had a loose BM after having miralax in the hospital yesterday, not black in color or bloody. This AM she reports having a more formed/soft BM. She also reported drinking a lot of water as she felt thirsty and wet her bed. Speech evaluation was completed as part of concern for aspiration and the recommendation was to eat moist foods. Pt reports doing so however she continues to have choking episodes. Patient has double vision, hearing and speech issues after her stroke which is unchanged from her baseline. She has chronic neuropathy in her feet. ROS: as above. Denies any headache, dizziness, abdominal pain, melena, hematochezia, dysuria. Per records from [facility], she received azithromycin 500mg at 5pm on 03/23 and 250mg this AM. Social history: Lives alone at the [facility]. CODE STATUS: DNR/DNI confirmed with patient and son. Admission Exam Per Admitting Provider General: In NAD, pleasant HEENT: dry oral mucosa Neuro: A&O x 4 Pulm: Crackles appreciated over posterior mid and lower lung archibald bilaterally, equal breath sounds bilaterally, no increased work of breathing, on 2L NC sating 95% CV: RRR, no m/r/g Abdomen:+BS, no TTP in all quadrants, non-distended LE: no LE edema, no calf TTP Principal Diagnosis Aspiration Pneumonia Distal Esophageal Stricture GERD Discharge Exam General: In NAD, pleasant HEENT: somewhat dry oral mucosa Neuro: A&O x 4 Pulm: mild crackles appreciated bilateral lower lobes, equal breath sounds bilaterally, on RA CV: RRR, no m/r/g, cap refill 2 secs Abdomen:+BS, no TTP in all quadrants, non-distended LE: no LE edema, no calf TTP Discharge Data Allergies Allergy/AdvReac Type Severity Reaction Status Date / Time Bactrim Allergy Severe THROAT Verified 05/14/15 15:22 CLOSED meperidine Allergy Severe almost Verified 03/24/19 10:02 "closed throat" midodrine Allergy Severe "almost Verified 03/24/19 10:02 closed throat" Penicillins Allergy Severe ANAPHYLAXIS Verified 03/24/19 10:02 Quinolones Allergy Severe TOLERATED Verified 03/24/19 10:02 LEVAQUIN IV - SEP 06 sulfamethoxazole Allergy Severe THROAT Verified 03/24/19 10:02 CLOSED trimethoprim Allergy Severe THROAT Verified 03/24/19 10:02 CLOSED diphenoxylate Allergy Intermediate Unknown Verified 03/24/19 10:02 glyburide Allergy Intermediate SEVERE Verified 03/24/19 10:02 ABDOMINAL PAIN metformin Allergy Intermediate SEVERE Verified 03/24/19 10:02 ABDOMINAL PAIN metronidazole [From Flagyl] Allergy Intermediate Hives Verified 03/24/19 10:02 nitrofurantoin Allergy Intermediate Unknown Verified 03/24/19 10:02 oxycodone Allergy Intermediate SEVERE Verified 03/24/19 10:02 WITHDRAWAL SYMPTOMS WHEN TRYING TO STOP TAKING ranitidine Allergy Intermediate Unknown Verified 03/24/19 10:02 repaglinide Allergy Intermediate Unknown Verified 03/24/19 10:02 rosiglitazone Allergy Intermediate Unknown Verified 03/24/19 10:02 DENILSON Inhibitors Allergy Unknown unknown to Verified 03/24/19 10:02 pt atropine Allergy Unknown Unknown Verified 03/24/19 10:02 Histamine H2 Inhibitors Allergy Unknown unknown to Verified 03/24/19 10:02 pt Iodinated Contrast Media Allergy Unknown JULY 2017 Verified 03/24/19 10:02 [facility] -- TOLERATED WITH SLOW INFUSION PER PATIENT phenazopyridine Allergy Unknown Unknown Verified 03/24/19 10:02 carvedilol Allergy Unknown Verified 03/24/19 10:02 clonazepam [From Klonopin] Allergy Unknown Verified 03/24/19 10:02 doxycycline Allergy Unknown Verified 03/24/19 10:02 furosemide [From Lasix] Allergy Unknown Verified 03/24/19 10:02 tolterodine [From Detrol] Allergy Unknown Verified 03/24/19 10:02 carbamazepine AdvReac Severe Unknown Verified 03/24/19 10:02 valproic acid AdvReac Severe Unknown Verified 03/24/19 10:02 albuterol AdvReac Intermediate UNK Verified 03/24/19 10:02 olanzapine AdvReac Intermediate Unknown Verified 03/24/19 10:02 paroxetine AdvReac Intermediate DID NOT Verified 03/24/19 10:02 HELP rofecoxib AdvReac Intermediate Unknown Verified 03/24/19 10:02 temazepam AdvReac Intermediate DID NOT Verified 03/24/19 10:02 HELP diazepam AdvReac Mild SEDATION Verified 03/24/19 10:02 LASTING TOO LONG ibuprofen AdvReac Mild Unknown Verified 03/24/19 10:02 lisinopril AdvReac Mild UNK Verified 03/24/19 10:02 mirtazapine AdvReac Mild Unknown Verified 03/24/19 10:02 Consultations 03/24/19 10:48 ED Decision to Admit Stat 03/27/19 18:30 Consult Gastroenterology Routine Procedures Performed Operation Date: 03/28/19 16:30 <No data on this case meets the specified criteria> Ordered Studies 03/25/19 09:30 FL video swallow Routine 03/27/19 13:45 FL barium swallow Routine Hospital Course (1) Aspiration pneumonia: Liv is a 78-year-old female with a past medical history of asthma, COPD, CKD, paramedian CVA of the carey, stable meningioma, PVCs, type 2 diabetes mellitus insulin-dependent, and CAMRON who was recently admitted 03/23 for acute hypoxic respiratory failure secondary to pneumonia versus asthma exacerbation who has been readmitted for acute hypoxic respiratory failure concerning for aspiration pneumonia with an asthma exacerbation. Acute hypoxic respiratory failure 2/2 aspiration pneumonia with asthma/COPD exacerbation No prior spirometry records Chest x-ray shows interval worsening of left lower lobe consolidations Afebrile, no leukocytosis Influenza a/B negative -Received azithromycin Rocephin which was transitioned to Omnicef dced on Azithromycin 250mg QAM x 1 day and Omnicef 300mg BID x 2.5 days Received Methyl prednisolone 40 mg twice daily converted to prednisone taper course 40mg x 2 days, 30mg x 2 days, 20mg x 2 days then 10mg x 2 days Continue Albuterol every 4 hours as needed and Asmanex BID -Started on Spiriva qam Esophageal Stricture/Dysmotility Concern for recurrent aspiration pneumonia -FL barium study concerning for distal esophageal stricture, mild esophageal dysmotility and moderate GERD -GI consulted: plan for EGD and dilation week of Apr 07 - unable to do inpatient as pt on aspirin and plavix -Hold aspirin and plavix starting Apr 02 2019 GERD w/ Hx of esophageal dilation & Hoarse voice - Increased Protonix 40mg from QD to BID DEB on CKD3-improved Baseline creatinine 1.1 Elevated to 1.29 on admission Chronically elevated troponins Noted to be at baseline on last recent admission No cardiac symptoms Hypertension Continue metoprolol 50 mg p.o. daily Type 2 diabetes mellitus, insulin-dependent Continue glargine and Novolog SSI. Neuropathy -Continue gabapentin Diet Recommendation: soft, small bites, moistened until EGD Total Time Total Time Spent Total Time Spent (In Minutes): <30 mins Discharge Plan Discharge Items Patient Disposition: Personal Long-Term Reason For Visit: ASPIRATION PNEUMONIA Discharge Diagnosis: aspiration pneumonia Distal esophageal stricture with mild esophageal dysmotility GERD Condition on Discharge: Good Activity: Resume your previous activity Non-emergency contact: Primary Care Provider Call non-emergency contact if: you have any medication questions, your symptoms worsen and you have a fever Follow-up/Referrals: Darwin Lugo III, CRNP [Primary Care Provider] - Diet: Carb Consistent or DM2 Diet Texture: Dental soft (bite-sized) Diet Comment: Soft diet until upper GI scope Addtl Attending Provider Instructions: Ms. Charlton you were admitted for aspiration pneumonia. There is concern that your lower esophagus has developed a stricture again which was previously dilated by the GI doctor. They evaluated you today however because you were on plavix and aspirin they were not able to do that today. They will arrange for a scope for you the week of April 07. You will need to stop taking your aspirin and plavix starting April 02, 2019. Please follow the instructions below after your discharge. Take azithromycin 250mg daily for 1 more day (next dose is tomorrow) -Take Omnicef (cefdinir) 300mg twice a day (next dose this evening) for tonight and 2 more days -Take Prednisone Taper course 30mg (3 pills) once a day starting tomorrow for 2 days then 20mg (2 pills) daily for 2 days then 10mg (1 pill) daily for 2 days -Use Albuterol inhaler every 4 hours as needed for difficulty breathing or wheezing -Take inhaler Spiriva every morning (new medication prescribed to you to help with your cough and breathing) Continue your Asmanex inhaler twice daily -Your home anti-acid pill, Pantoprazole 40mg was increased from once daily to twice daily. A new prescription was sent to the pharmacy -Stop taking your aspirin and plavix stating April 02 2019 in preparation for your scope -Continue your remaining home medications as prescribed prior to your admission -Stay well hydrated -Eat moistened and soft foods. Take small bites until your esophagus is scoped and dilated -GI (Gastroenterology) doctor will arrange for your upper GI scope and dilation of esophagus the week of April 07 and contact you -Please follow up with your primary care doctor in 2-3 days -Continue physical and occupational therapy at [facility] (script was provided) Pending Studies at Discharge: No Stand-Alone Forms: [employer], Smoking Cessation Skilled Items Patient informed of condition?: Yes DNR: Yes Discharge Level of Care: Acute rehab Communicable Disease: No Discharge Prognosis: Improving Lines: None Urinary Catheter: No Medications and DC Order Prescriptions: New azithromycin [Zithromax] 250 mg Tablet 250 mg PO Q24H Qty: 1 RF: 0 pantoprazole 40 mg Tablet,Delayed Release (Dr/Ec) 40 mg PO BID Qty: 60 RF: 0 cefdinir 300 mg Capsule 300 mg PO BID Qty: 5 RF: 0 Spiriva with HandiHaler 18 mcg Capsule, W/Inhalation Device 1 puff inhalation QAM Qty: 1 RF: 0 prednisone 10 mg tablet 10 mg PO DAILY Qty: 12 RF: 0 Continued loperamide [Imodium A-D] 2 mg Capsule 2 mg PO UD PRN (Reason: Diarrhea) RF: 0 metoprolol succinate [Toprol XL] 50 mg Tablet Extended Release 24 Hr 50 mg PO QAM RF: 0 clopidogrel [Plavix] 75 mg Tablet 75 mg PO QAM RF: 0 aspirin [Aspir-81] 81 mg Tablet,Delayed Release (Dr/Ec) 81 mg PO QAM RF: 0 acetaminophen [Tylenol Extra Strength] 500 mg Tablet 500 mg PO Q4 PRN (Reason: Fever Or Pain) RF: 0 pravastatin 80 mg Tablet 80 mg PO DAILY@1700 RF: 0 Novolog U-100 Insulin aspart 100 unit/mL Solution 4 unit SUBCUT .Q BREAKFAST RF: 0 Novolog U-100 Insulin aspart 100 unit/mL Solution 6 unit SUBCUT BIDM RF: 0 docusate sodium [Colace] 100 mg Capsule 100 mg PO BID RF: 0 gabapentin [Neurontin] 300 mg capsule 600 mg PO BID RF: 0 epinephrine 0.3 mg/0.3 mL auto-injector 0.3 mg IM UD PRN (Reason: Anaphylaxis) RF: 0 albuterol sulfate [Ventolin HFA] 90 mcg/actuation Hfa Aerosol Inhaler 1 - 2 puff INHALATION Q4 PRN (Reason: Shortness Of Breath Or Wheezing) RF: 0 fluticasone propionate [Flonase Allergy Relief] 50 mcg/actuation [place],Suspension 2 spray INTRANASAL BID RF: 0 escitalopram oxalate 20 mg tablet 20 mg PO HS RF: 0 Novolog Flexpen U-100 Insulin 100 unit/mL (3 mL) insulin pen 0 unit SUBCUT TIDM RF: 0 Asmanex Twisthaler 220 mcg/ actuation (60) aerosol powdr breath activated 1 inh INHALATION BID RF: 0 Basaglar KwikPen U-100 Insulin 100 unit/mL (3 mL) Insulin Pen 32 unit SUBCUT BID RF: 0 melatonin 10 mg Tablet 10 mg PO HS PRN (Reason: INSOMIA) RF: 0 biotin 5,000 mcg Tablet, Sublingual 10,000 mcg SUBLINGUAL QAM RF: 0 Salonpas Deep Relieving 3.1-15-10 % Gel 1 ea TOPICAL QAM PRN (Reason: Pain) RF: 0 Senna Plus 8.6-50 mg Capsule 1 tab-cap PO DAILY@1200 RF: 0 Ocular Lubricant Shameka 1 drp OPB BID PRN (Reason: Dry Eyes) RF: 0 cholecalciferol (vitamin D3) [Vitamin D3] 125 mcg (5,000 unit) Tablet 5,000 unit PO QAM RF: 0 Discontinued pantoprazole [Protonix] 40 mg Tablet,Delayed Release (Dr/Ec) 40 mg PO QAM RF: 0 azithromycin 250 mg tablet 250 mg PO QAM RF: 0 Discharge Orders: Discharge Order (Routine); Ordered 03/28/19 Ordered By: Refugio Larose Admission Data Admit Date/Time: 03/25/19 13:05 Attending Provider: Augustin Aguilar Admit Provider: Augustin Aguilar Primary Care Provider: Darwin Lugo III Other Providers: Raza Hurtado ; [facility] ; Silverio Billings [place] Other Interventions: Discharge Summary Assessment (RN) Last Done: 03/28/19 13:46 DC Date/Time DO NOT enter until pt leaves facility: 03/28/19 15:58 Supervising Physician Co-Signing Physician Notes I personally examined the patient and verified all chiu points of history and exam, discussed case, and agree with decision making with Dr Larose. feeling ok now. breathing better. case d/w GI and input appreciated. due to no emergency and on antiplatelets - would prefer to dilate esophagus under safer conditions once off antiplatelets for a week. vitals noted nad heent nc at mmm. breathing unlabored no accessory muscles good effort. no new neuro deficits no pallor or icterus - chronic strabismus. pleasantly anxious. pneumonia - aspiration most likely - probably reflux related to distal esophageal stricture. for dilation as outpt. emphasized critical importance of small bites, slippery foods, etc. acute hypoxic respiratory failure on admission manifest by pulse ox of 87% on RA and shortness of breath has improved. stable for discharge - heavily encouraged rehab, but patient refused. We discussed it from multiple angles, and she does seem to have capacity, understands her decision, but simply would prefer to go back to [facility] and have therapy there. Stable for discharge. otherwise as above Resident Activity Tracking Resident Involvement: Resident Care Provided Care Provided: Adult Hospital Medicine
[2019-03-28] MEDS: AZITHROMYCIN 250 MG TAB PO SCH (13:25)
--- NOTE | 2019-03-28 16:23 | Billing Data ---
Date of Service March 28, 2019 Coding Level of Care Code D/C Day Management <30 mins
== END 2019-03-28 15:58 | disposition home or self-care (01) | DRG 177 ==
LOC: 2N 09:29 → ED 09:29 → SUATTDRO 11:39 → 2N 12:54 → SUATTDRO 03-25 13:05

== ENCOUNTER 2019-11-27 06:58 | Inpatient (IN) ==
--- NOTE | 2019-11-12 13:05 | PAT Medication Instructions ---
Medication Instructions Date of Service November 12, 2019 Home Medications Medication Instructions Recorded clopidogrel 75 mg tablet 75 mg PO QAM #30 tab 03/30/19 cholecalciferol (vitamin D3) 125 5,000 unit PO QAM #30 tab 04/03/19 mcg (5,000 unit) tablet gabapentin 300 mg capsule 600 mg PO BID #60 cap 04/03/19 metoprolol succinate 50 mg 50 mg PO QAM #30 tab 04/03/19 tablet,extended release 24 hr sennosides 8.6 mg-docusate sodium 1 tab-cap PO DAILY@1200 #30 cap 04/03/19 50 mg capsule blood sugar diagnostic #100 ea 04/28/19 lancets 33 gauge #500 ea 04/29/19 acetaminophen 500 mg tablet 1,000 mg PO Q6H PRN #60 tab 05/29/19 ketoconazole 2 % shampoo 1 appln TOP Q14D #120 ml 05/29/19 fexofenadine 60 mg tablet 60 mg PO Q12H 90 Days #180 tab 06/25/19 albuterol sulfate 90 mcg/actuation 1 - 2 puff INHALATION Q4 PRN #18 gm 07/17/19 aerosol inhaler pen needle, diabetic 31 gauge x #500 ea 08/11/1908/15" pantoprazole 40 mg tablet,delayed 40 mg PO BID #60 tab 09/04/19 release Novolog Flexpen U-100 Insulin 100 See Rx Instructions SUBCUT TID #15 09/29/19 unit/mL (3 mL) subcutaneous ml NS insulin aspart U-100 100 unit/mL See Rx Instructions SUBCUT TID #1 09/29/19 (3 mL) subcutaneous pen box Basaglar KwikPen U-100 Insulin 100 34 units SUBCUT BID 90 Days #61.2 10/16/19 unit/mL (3 mL) subcutaneous box NS pravastatin 40 mg tablet 40 mg PO .COMPLEX #45 tab 10/31/19 meloxicam 7.5 mg tablet 7.5 mg PO DAILY #30 tab 11/04/19 vitamins A,C,W-ygzk-wbgerz 14,320 1 cap PO BID #60 cap 11/04/19 unit-226 mg-200 unit capsule epinephrine 0.3 mg IM UD PRN clopidogrel 75 mg tablet 75 mg PO QAM cholecalciferol (vitamin D3) 125 mcg (5,000 unit) tablet 5,000 unit PO QAM gabapentin 300 mg capsule 600 mg PO BID metoprolol succinate 50 mg tablet,extended release 24 hr 50 mg PO QAM sennosides 8.6 mg-docusate sodium 50 mg capsule 1 tab-cap PO DAILY@1200 albuterol sulfate 1.25 mg INHALATION DAILY PRN acetaminophen 500 mg tablet 1,000 mg PO Q6H PRN ketoconazole 2 % shampoo 1 appln TOP Q14D fexofenadine 60 mg tablet 60 mg PO Q12H albuterol sulfate 90 mcg/actuation aerosol inhaler 1 - 2 puff INHALATION Q4 PRN pantoprazole 40 mg tablet,delayed release 40 mg PO BID insulin aspart U-100 100 unit/mL (3 mL) subcutaneous pen See Rx Instructions SUBCUT TID Basaglar KwikPen U-100 Insulin 100 unit/mL (3 mL) subcutaneous 34 units SUBCUT BID docusate sodium 100 mg capsule 100 mg PO BID PRN escitalopram oxalate 20 mg tablet 20 mg PO QPM melatonin 10 mg capsule 10 mg PO HS PRN pravastatin 40 mg tablet 40 mg PO Q other day meloxicam 7.5 mg tablet 7.5 mg PO DAILY vitamins A,C,U-ayny-povilt 14,320 unit-226 mg-200 unit capsule 1 cap PO BID biotin 5,000 mcg PO BID coenzyme Q10 200 mg PO QAM diphenhydramine-acetaminophen [Tylenol PM Extra Strength] 1 tab PO HS lidocaine [Salonpas (lidocaine)] 1 patch TOPICAL DAILY PRN tramadol 50 mg PO DAILY PRN Continue as directed lidocaine [Salonpas (lidocaine)] 1 patch TOPICAL DAILY PRN epinephrine 0.3 mg IM UD PRN ASK your surgeon for instructions meloxicam 7.5 mg tablet 7.5 mg PO DAILY ASK your prescriber and surgeon clopidogrel 75 mg tablet 75 mg PO QAM STOP taking 2 weeks before surgery coenzyme Q10 200 mg PO QAM STOP taking 24 hours before surgery ketoconazole 2 % shampoo 1 appln TOP Q14D DO NOT take the morning of surgery cholecalciferol (vitamin D3) 125 mcg (5,000 unit) tablet 5,000 unit PO QAM sennosides 8.6 mg-docusate sodium 50 mg capsule 1 tab-cap PO DAILY@1200 fexofenadine 60 mg tablet 60 mg PO Q12H insulin aspart U-100 100 unit/mL (3 mL) subcutaneous pen See Rx Instructions SUBCUT TID docusate sodium 100 mg capsule 100 mg PO BID PRN multivitamin capsule 1 cap PO BID biotin 5,000 mcg PO BID Take morning of surgery With a small sip of water, OTHERWISE NOTHING TO EAT OR DRINK AFTER MIDNIGHT: gabapentin 300 mg capsule 600 mg PO BID metoprolol succinate 50 mg tablet,extended release 24 hr 50 mg PO QAM albuterol sulfate 1.25 mg INHALATION DAILY PRN (if needed) acetaminophen 500 mg tablet 1,000 mg PO Q6H PRN (if needed, may be taken up to four hours before surgery) albuterol sulfate 90 mcg/actuation aerosol inhaler 1 - 2 puff INHALATION Q4 PRN (if needed) pantoprazole 40 mg tablet,delayed release 40 mg PO BID tramadol 50 mg PO DAILY PRN (if needed, may be taken up to four hours before surgery) Take evening before surgery gabapentin 300 mg capsule 600 mg PO BID albuterol sulfate 1.25 mg INHALATION DAILY PRN (if needed) acetaminophen 500 mg tablet 1,000 mg PO Q6H PRN (if needed) fexofenadine 60 mg tablet 60 mg PO Q12H albuterol sulfate 90 mcg/actuation aerosol inhaler 1 - 2 puff INHALATION Q4 PRN (if needed) pantoprazole 40 mg tablet,delayed release 40 mg PO BID insulin aspart U-100 100 unit/mL (3 mL) subcutaneous pen See Rx Instructions SUBCUT TID Basaglar KwikPen U-100 Insulin 100 unit/mL (3 mL) subcutaneous 34 units SUBCUT BID docusate sodium 100 mg capsule 100 mg PO BID PRN (if needed) escitalopram oxalate 20 mg tablet 20 mg PO QPM melatonin 10 mg capsule 10 mg PO HS PRN (if needed) multivitamin capsule 1 cap PO BID biotin 5,000 mcg PO BID diphenhydramine-acetaminophen [Tylenol PM Extra Strength] 1 tab PO HS tramadol 50 mg PO DAILY PRN (if needed) Insulin Dependent Diabetic Patients * Test your blood sugar the morning of surgery * If Blood Sugar is GREATER THAN 150, take HALF of your regular dose of: Basaglar KwikPen U-100 Insulin 100 unit/mL (3 mL) subcutaneous -- TAKE 17 UNITS * If Blood Sugar is LESS THAN 150, DO NOT TAKE ANY: Basaglar KwikPen U-100 Insulin 100 unit/mL (3 mL) subcutaneous Other Notes If you have any questions please call us at [phone] or [phone] or [phone] or [phone]
--- NOTE | 2019-11-13 14:06 | Anesthesiology Consultation ---
Date of Service November 13, 2019 Assessment & Plan (1) Encounter for pre-operative examination: Patient is a resident at [facility]. They have not had any cases of COVID19 since May. Patient is kept isolated in her room, they do not eat communally, meals are brought to rooms. No travel, no known exposure or sick contacts, no symptoms other than chronic baseline SOB/PULIDO. Patient will be tested for COVID prior to surgery per surgeon's office arrangements. Pt scheduled for root canal on 11/19, filling/crown and cap on different tooth on 11/24 -- surgeon's office was made aware, and to contact the patient if any issues with this. Cardiology Clearance 11/14/19 = "Patient is able to perform her activities of daily living but is limited by her lumbar spinal stenosis. She is able to walk using a rolling walker and has not experienced any limiting cardiopulmonary symptoms except for a mild degree of chronic stable dyspnea. Patient has not experienced angina pectoris or anginal equivalent symptoms, overt signs or symptoms of heart failure (nor does she have a history of heart failure) nor has she had any symptoms suggestive a sustained dysrhythmia. Additionally, the patient has normal LV systolic function and has had several negative cardiac workups including a negative dobutamine stress echo approximately 2 years ago. Patient is an acceptable surgical risk to proceed with surgery as scheduled, provided she take her usual dose of Toprol XL the morning of surgery with sips of water. Patient may hold Plavix x 7 days leading up to surgery. There is no need for further cardiac workup at this time." Abnormal CXR showing 12mm nodule. CT recommended, surgeon's office made aware this will need follow-up. Chart Review Chart Review: Acceptable Risk for Surgery (pending response re: abnormal CXR) and Patient seen in Pre Admission Testing Consults Requested cardiac Teaching & Discussion Instructed NPO after midnight before surgery, except medications with 15 cc of water. Medication instructions provided according to the PAT guidelines. History Surgery Operation Date: 11/27/19 07:45 Proposed Procedures p T12-L4 Decompression and Fusion, Spinal Cord Monitoring - Salazar Rodrigues DO Height/Weight Height: 5 ft 1 in Weight: 101.2 kg Allergies Allergy/AdvReac Type Severity Reaction Status Date / Time Bactrim Allergy Severe THROAT Verified 05/14/15 15:22 CLOSED celecoxib [From Celebrex] Allergy Severe CAUSED Verified 11/14/19 09:37 STROKE meperidine Allergy Severe almost Verified 11/14/19 09:37 "closed throat" midodrine Allergy Severe "almost Verified 11/14/19 09:37 closed throat" Penicillins Allergy Severe ANAPHYLAXIS Verified 11/14/19 09:37 Quinolones Allergy Severe TOLERATED Verified 11/14/19 09:37 LEVAQUIN IV - ELIO 07 sulfamethoxazole Allergy Severe THROAT Verified 11/14/19 09:37 CLOSED trimethoprim Allergy Severe THROAT Verified 11/14/19 09:37 CLOSED diphenoxylate Allergy Intermediate Unknown Verified 11/14/19 09:37 metronidazole [From Flagyl] Allergy Intermediate Hives Verified 11/14/19 09:37 DENILSON Inhibitors Allergy Unknown unknown to Verified 11/14/19 09:37 pt atropine Allergy Unknown Unknown Verified 11/14/19 09:37 carvedilol Allergy Unknown Unknown Verified 11/14/19 09:37 clonazepam [From Klonopin] Allergy Unknown Unknown Verified 11/14/19 09:37 doxycycline Allergy Unknown Unknown Verified 11/14/19 09:37 furosemide [From Lasix] Allergy Unknown Unknown Verified 11/14/19 09:37 Histamine H2 Inhibitors Allergy Unknown unknown to Verified 11/14/19 09:37 pt Iodinated Contrast Media Allergy Unknown JULY 2017 Verified 11/14/19 09:37 [facility] -- TOLERATED WITH SLOW INFUSION PER PATIENT nitrofurantoin Allergy Unknown Unknown Verified 11/14/19 09:37 phenazopyridine Allergy Unknown Unknown Verified 11/14/19 09:37 ranitidine Allergy Unknown Unknown Verified 11/14/19 09:37 repaglinide Allergy Unknown Unknown Verified 11/14/19 09:37 rosiglitazone Allergy Unknown Unknown Verified 11/14/19 09:37 tolterodine [From Detrol] Allergy Unknown Unknown Verified 11/14/19 09:37 aspartame Allergy Verified 11/14/19 09:37 [From Nutrasweet Aspartame] prednisone Allergy Verified 11/14/19 09:37 citalopram [From Celexa] AdvReac Severe Verified 11/14/19 09:37 glyburide AdvReac Intermediate SEVERE Verified 11/14/19 09:37 ABDOMINAL PAIN metformin AdvReac Intermediate SEVERE Verified 11/14/19 09:37 ABDOMINAL PAIN oxycodone AdvReac Intermediate SEVERE Verified 11/14/19 09:37 WITHDRAWAL SYMPTOMS WHEN TRYING TO STOP TAKING paroxetine AdvReac Intermediate DID NOT Verified 11/14/19 09:37 HELP temazepam AdvReac Intermediate DID NOT Verified 11/14/19 09:37 HELP tramadol AdvReac Intermediate Vomiting Verified 11/14/19 09:37 diazepam AdvReac Mild SEDATION Verified 11/14/19 09:37 LASTING TOO LONG meloxicam [From Mobic] AdvReac Mild SICK TO Verified 11/14/19 09:37 STOMACH albuterol AdvReac Unknown UNK Verified 11/14/19 09:37 carbamazepine AdvReac Unknown Unknown Verified 11/14/19 09:37 ibuprofen AdvReac Unknown Unknown Verified 11/14/19 09:37 lisinopril AdvReac Unknown UNK Verified 11/14/19 09:37 mirtazapine AdvReac Unknown Unknown Verified 11/14/19 09:37 olanzapine AdvReac Unknown Unknown Verified 11/14/19 09:37 rofecoxib AdvReac Unknown Unknown Verified 11/14/19 09:37 valproic acid AdvReac Unknown Unknown Verified 11/14/19 09:37 Medications Home Medications Medication Instructions Recorded Confirmed Last Taken epinephrine 0.3 mg IM UD PRN 03/21/19 11/14/19 Unknown clopidogrel 75 mg tablet 75 mg PO QAM #30 tab 03/30/19 11/14/19 04/02/19 cholecalciferol (vitamin D3) 125 5,000 unit PO QAM #30 tab 04/03/19 11/14/19 Unknown mcg (5,000 unit) tablet gabapentin 300 mg capsule 600 mg PO BID #60 cap 04/03/19 11/14/19 Unknown metoprolol succinate 50 mg 50 mg PO QAM #30 tab 04/03/19 11/14/19 04/07/19 tablet,extended release 24 hr sennosides 8.6 mg-docusate sodium 1 tab-cap PO DAILY@1200 #30 cap 04/03/19 11/14/19 Unknown 50 mg capsule albuterol sulfate 1.25 mg INHALATION DAILY PRN 04/04/19 11/14/19 Unknown blood sugar diagnostic #100 ea 04/28/19 11/14/19 Unknown lancets 33 gauge #500 ea 04/29/19 11/14/19 Unknown acetaminophen 500 mg tablet 1,000 mg PO Q6H PRN #60 tab 05/29/19 11/14/19 Unknown ketoconazole 2 % shampoo 1 appln TOP Q14D #120 ml 05/29/19 11/14/19 Unknown fexofenadine 60 mg tablet 60 mg PO Q12H 90 Days #180 tab 06/25/19 11/14/19 Un known albuterol sulfate 90 mcg/actuation 1 - 2 puff INHALATION Q4 PRN #18 gm 07/17/19 11/14/19 Unknown aerosol inhaler pen needle, diabetic 31 gauge x #500 ea 08/11/19 11/14/19 Unknown 5/16" pantoprazole 40 mg tablet,delayed 40 mg PO BID #60 tab 09/04/19 11/14/19 Unknown release Novolog Flexpen U-100 Insulin 100 See Rx Instructions SUBCUT TID #15 09/29/19 11/14/19 Unknown unit/mL (3 mL) subcutaneous ml NS insulin aspart U-100 100 unit/mL See Rx Instructions SUBCUT TID #1 09/29/19 11/14/19 Unknown (3 mL) subcutaneous pen box Basaglar KwikPen U-100 Insulin 100 34 units SUBCUT BID 90 Days #61.2 10/16/19 11/14/19 Unknown unit/mL (3 mL) subcutaneous box NS docusate sodium 100 mg capsule 100 mg PO BID PRN 10/22/19 11/14/19 Unknown escitalopram oxalate 20 mg tablet 20 mg PO QPM 10/28/19 11/14/19 Unknown melatonin 10 mg capsule 10 mg PO HS PRN 10/28/19 11/14/19 Unknown pravastatin 40 mg tablet 40 mg PO .COMPLEX #45 tab 10/31/19 11/14/19 Unknown vitamins A,C,W-yhra-xevjfq 14,320 1 cap PO BID #60 cap 11/04/19 11/14/19 Unknown unit-226 mg-200 unit capsule biotin 5,000 mcg PO BID 11/12/19 11/14/19 Unknown coenzyme Q10 200 mg PO QAM 11/12/19 11/14/19 Unknown diphenhydramine-acetaminophen 1 tab PO HS PRN 11/12/19 11/14/19 Unknown [Tylenol PM Extra Strength] lidocaine [Salonpas (lidocaine)] 1 patch TOPICAL DAILY PRN 11/12/19 11/14/19 Unknown loperamide 2 mg capsule 4 mg PO .COMPLEX PRN cap 11/14/19 11/14/19 Unknown nitroglycerin 0.4 mg sublingual 0.4 mg SUBLINGUAL Q5M PRN 11/14/19 11/14/19 Unknown tablet Past Medical History Medical History Acute hypercapnic respiratory failure 03/2019 [facility] DEB (acute kidney injury) Anxiety and depression Aspiration pneumonia Admitted 03/2019 [facility]. Asthma Per pulmonology 10/10/19, likely NOT asthma but chronic aspiration. Flovert and Spiriva discontinued, pt to use albuterol PRN Breast cancer UNSURE WHICH SIDE WAS CANCER. Chronic back pain Chronic neck pain Chronic pulmonary aspiration 2/2 h/o CVA, [facility]. CKD (chronic kidney disease) Dyspnea on exertion GERD (gastroesophageal reflux disease) History of benign brain tumor History of dysphagia ESOPHAGEAL DILATION IN PAST History of esophageal dilatation History of spinal stenosis History of uterine cancer Endometrial biopsy revealed endometrioid adenocarcinoma. Status post total abdominal hysterectomy and bilateral salpingo-oophorectomy. Status post completion of radiation therapy with external beam radiation as well as 2 HDR treatments completed 08/15/2013 Hypertension Left pontine stroke 01/2019, on Plavix, following with [facility] [place]. Lymphedema of right arm CHRONIC, 2/2 MASTECTOMY Meningioma R temporal lobe, neurology monitoring. Morbid obesity Neuropathy Numb feet, painful radiculopathy in hands from cervical radiculopathy Obesity hypoventilation syndrome Osteoarthritis PAC (premature atrial contraction) PVC (premature ventricular contraction) Severe obstructive sleep apnea CPAP, pt reports compliance Type 2 DM with CKD stage 3 and hypertension Uterine cancer S/P RICHARD BSO WITH RADIATION Exercise / Class Metabolic Activity III < 4 Walking/Shop/Light housework (Denies any chest pain, +SOB/PULIDO with ambulation with cane) Past Family History Family History Mother Diabetes Myocardial infarction Hypertension Family history of diabetes mellitus Brother Family history of diabetes mellitus Denies family history of Ovarian cancer Prostate cancer Breast cancer Colorectal cancer Past Surgical History Surgical History Difficult airway for intubation History of cardiac catheterization NO STENTS History of cataract surgery BILATERAL History of cholecystectomy History of colonoscopy History of esophagogastroduodenoscopy (EGD) History of knee surgery ARTHROSCOPY LEFT KNEE History of mastectomy BILATERAL History of total abdominal hysterectomy BSO Past Anesthesia History No Hx of Anesthesia Complications, Difficult Airway and No Family Hx of Anesthesia Complications (other than depression post-op for all family members) History of PONV No Hx of PONV and No Hx of Motion Sickness Social History Smoking Status: Former smoker tobacco type: cigarettes Do You Dip or Chew Tobacco: No Smoking End Date: LATE Hx Alcohol Use: No Hx Substance Use: No substance use type: does not use Review of Systems Pt denies any recent chest pain, shortness of breath above baseline, p alpitations, cough, fever, URI, or uncontrolled acid reflux. +runny nose Physical Exam Vital Signs BP: 133/67 P: 70bpm SPO2: 95% RA T: 98.3 F R: 16 Constitutional + morbidly obese ENMT Mouth: + dentures (partial lower), + poor dentition, + macroglossia and + small oral opening Thyromental Distance: < 3.5 Finger Breadths (3) Mallampati Class: III Pt scheduled for root canal on 11/19, filling/crown and cap on different tooth on 11/24 Neck + short neck, + thick neck and + limited neck extension Respiratory normal respiratory effort Auscultation: lungs clear to auscultation bilaterally Cardiovascular Rate/Rhythm: regular rate and regular rhythm Heart Sounds: no murmur Extremities: + edema (very mild trace B/L ankles) Testing Laboratory Results 11/13/19 15:10 11/13/19 15:10 PT 12.2 Seconds (9.0-12.0) H 11/13/19 15:10 INR 1.2 (0.9-1.1) H 11/13/19 15:10 APTT 24.5 Seconds (21.0-31.0) 11/13/19 15:10 Urine Color Dark Yellow 11/13/19 Unknown Urine Appearance Cloudy (Clear) A 11/13/19 Unknown Urine pH 5.0 (4.5-7.5) 11/13/19 Unknown Ur Specific [place] 1.024 (1.000-1.030) 11/13/19 Unknown Urine Protein Trace (Negative) H 11/13/19 Unknown Urine Glucose (UA) Negative (Negative) 11/13/19 Unknown Urine Ketones Trace (Negative) H 11/13/19 Unknown Urine Nitrite Negative (Negative) 11/13/19 Unknown Ur Leukocyte Esterase 2+ (Negative) H 11/13/19 Unknown Urine WBC (Auto) >30 /hpf (0-5) H 11/13/19 Unknown Urine RBC (Auto) 0-4 /hpf (0-4) 11/13/19 Unknown U Hyaline Cast (Auto) 5-10 /lpf (0-5) H 11/13/19 Unknown U Epithel Cells (Auto) 5-10 /lpf (0-5) H 11/13/19 Unknown Urine Bacteria (Auto) 1+ (Negative) H 11/13/19 Unknown Blood Type A Positive 11/13/19 15:10 Antibody Screen NEGATIVE 11/13/19 15:10 11/13/19 Unknown Urine Culture - Preliminary Urine,Clean Catch Gram negative bacilli *surgeon's office flagged re + UA Electrocardiogram Date: 03/24/19 Findings: + NSR @ (79bpm) Cannot r/o anterior infarct, age undetermined. Chest X-Ray Date: 11/13/19 COMPARISON: Chest 03/26/2019. Chest CT 03/22/2019. FINDINGS: Possible 12 mm nodule within the right lower lung zone. Otherwise, lungs are clear. The heart is normal in size. No pleural effusions. No pneumothorax. IMPRESSION: Possible 12 mm nodule within the right lower lobe. This may correspond to the nodular process seen on the prior chest CT. Therefore, repeat chest CT recommended for further evaluation. Surgeon's office flagged regarding need for follow-up of this abnormal CXR. Echocardiogram Date: 02/06/19 EF: 65-70% LV Function: normal RWMA: + none Valvular Disease: + MR (mild) Normal estimated RVSP, assuming normal right atrial pressure. Compared to prior study on 08/03/2017, no significant change.
[2019-11-13 15:38] LABS: Red Blood Count 5.19 M/uL (4.2-5.4); White Blood Count 5.83 K/uL (4.8-10.8)
[2019-11-13 15:39] LABS: Basophils # (auto) 0.03 K/uL (0-0.2); Basophils % (auto) 0.5 %; Eosinophils % (auto) 1.7 %; Hemoglobin 11.7 g/dL (12.0-16.0); Immature Granulocytes # (auto) 0.01 K/uL (0.00-0.02); Immature Granulocytes % (auto) 0.2 %; Lymphocytes # (auto) 1.06 K/uL (1.2-3.4); Lymphocytes % (auto) 18.2 %; Mean Corpuscular Hemoglobin 22.5 pg (25-34); Mean Corpuscular Hgb Conc 30.8 g/dL (32-36); Mean Corpuscular Volume 73.2 fL (80-100); Mean Platelet Volume 9.2 fL (7.4-10.4); Monocytes # (auto) 0.31 K/uL (0.11-0.59); Monocytes % (auto) 5.3 %; Neutrophils # (auto) 4.32 K/uL (1.4-6.5); Neutrophils % (auto) 74.1 %; Platelet Count 131 K/uL (130-400); RDW Coefficient of Variation 15.1 % (11.5-14.5); RDW Standard Deviation 40.1 fL (36.4-46.3)
--- NOTE | 2019-11-13 15:42 | XRay Report ---
XR chest Pre-admission PA/Lat HISTORY: Preop. COMPARISON: Chest 03/26/2019. Chest CT 03/22/2019. FINDINGS: Possible 12 mm nodule within the right lower lung zone. Otherwise, lungs are clear. The hea rt is normal in size. No pleural effusions. No pneumothorax. IMPRESSION: Possible 12 mm nodule within the right lower lobe. This may correspond to the nodular process seen on the prior chest CT. Therefore, repeat chest CT recommended for further evaluation. ACT 112: Positive. There are findings on this exam that require communication between the performing entity and the patient following Patient Test Result Information Act ([place] Act 112) guidelines. Electronically signed by: Javy Mcdaniel M.D. 11/13/2019 3:40 PM
[2019-11-13 15:44] LABS: Appearance Urine Cloudy (Clear); Bacteria Urine Automated 1+ (Negative); Bilirubin Urine Negative (Negative); Blood Urine Negative (Negative); Color Urine Dark Yellow; Glucose Urine UA Negative (Negative); Ketones Urine Trace (Negative); Leukocyte Esterase Urine 2+ (Negative); Nitrite Urine Negative (Negative); Protein Urine Trace (Negative); RBC Urine Automated 0-4 /hpf (0-4); Specific Gravity Urine 1.024 (1.000-1.030); Urobilinogen Urine Negative (Negative); WBC Urine Automated >30 /hpf (0-5)
[2019-11-13 15:47] LABS: BUN Creatinine Ratio 19.9 (10-20); Calcium 9.2 mg/dl (8.5-10.1); Creatinine Clr Calc Pharmacy 37.2 ml/min; Est GFR (African American) 43.6; Est GFR (Non-African American) 37.6; Potassium 4.2 mmol/L (3.5-5.1)
[2019-11-13 15:54] LABS: INR 1.2 (0.9-1.1); Partial Thromboplastin Ratio 0.9; Partial Thromboplastin Time 24.5 Seconds (21.0-31.0); Prothrombin Time 12.2 Seconds (9.0-12.0)
[2019-11-13 16:02] LABS: Microcytosis Present
[~2019-11-27 06:58] MED LIST changes: +ACETAMINOPHEN 500 MG TAB PO SCH; -ADVIN25050 INH; -ASPI81TA28 PO; -CALC500C3 PO; +CEFAZOLIN 2000MG 2,000 MG/15 ML SYR IV SCH; -CETI10TA84 PO; -CRG3125 PO; -DULO-24 PO; -EPP3/2 IM; -ESCI1TAB6 PO; -FLNIN; +GABAPENTIN 300 MG CAP PO SCH; -INSDGIPEN SC; -INSU100I2 SQ; -LEVA45AE PO; +LR 15ML/HR IV SCH; -MELA3TAB12 PO; -NITR0.4S UT; -NRN600 PO; -SALI0.6510; -SPRIN INH
[2019-11-27] MEDS ORDERED: PROPOFOL IV EMULSION 10 MG/ML 20 ML VIAL IV ONE (08:40)
[2019-11-27] MEDS ORDERED: ROCURONIUM BROMIDE 10 MG/ML 5 ML VIAL IV ONE (08:40)
[2019-11-27] MEDS ORDERED: fentaNYL citrate 100 MCG/2 ML VIAL ONE (08:40)
[2019-11-27] MEDS ORDERED: ONDANSETRON INJ 2 MG/ML 2 ML VIAL ONE (08:40)
[2019-11-27] MEDS ORDERED: LIDOCAINE HCL 2% 2 ML VIAL/AMP(20MG/ML) INFIL ONE (08:40)
--- NOTE | 2019-11-27 09:58 | History & Physical Bridge Note ---
Date of Service November 27, 2019 History & Physical Bridge Note I have examined the patient, reviewed the History & Physical and in the interval since the performance of the History & Physical I have noted the following changes of clinical significance: no changes noted
--- NOTE | 2019-11-27 09:59 | History & Physical Report ---
Date of Service November 27, 2019 Assessment & Plan (1) Neurogenic claudication due to lumbar spinal stenosis: Admission and Anticipated Discharge Date Admission Date: T12-L4 decompression fusion History of Present Illness Chief Complaint: Back with bilateral leg pain and weakness Primary Care Provider: Darwin Lugo, III, [employer] SUPPORT MAKER This is a 79-year-old female known to me the presents with chronic persistent back and bilateral leg pain with weakness. After failing extensive course of nonoperative care is here for surgical intervention. Allergies Allergy/AdvReac Type Severity Reaction Status Date / Time Bactrim Allergy Severe THROAT Verified 05/14/15 15:22 CLOSED celecoxib [From Celebrex] Allergy Severe CAUSED Verified 11/27/19 07:24 STROKE meperidine Allergy Severe almost Verified 11/27/19 07:24 "closed throat" midodrine Allergy Severe "almost Verified 11/27/19 07:24 closed throat" Penicillins Allergy Severe ANAPHYLAXIS Verified 11/27/19 07:24 Quinolones Allergy Severe TOLERATED Verified 11/27/19 07:24 LEVAQUIN IV - SEP 06 sulfamethoxazole Allergy Severe THROAT Verified 11/27/19 07:24 CLOSED trimethoprim Allergy Severe THROAT Verified 11/27/19 07:24 CLOSED diphenoxylate Allergy Intermediate Unknown Verified 11/27/19 07:24 metronidazole [From Flagyl] Allergy Intermediate Hives Verified 11/27/19 07:24 DENILSON Inhibitors Allergy Unknown unknown to Verified 11/27/19 07:24 pt atropine Allergy Unknown Unknown Verified 11/27/19 07:24 carvedilol Allergy Unknown Unknown Verified 11/27/19 07:24 clonazepam [From Klonopin] Allergy Unknown Unknown Verified 11/27/19 07:24 doxycycline Allergy Unknown Unknown Verified 11/27/19 07:24 furosemide [From Lasix] Allergy Unknown Unknown Verified 11/27/19 07:24 Histamine H2 Inhibitors Allergy Unknown unknown to Verified 11/27/19 07:24 pt Iodinated Contrast Media Allergy Unknown JULY 2017 Verified 11/27/19 07:24 [facility] -- TOLERATED WITH SLOW INFUSION PER PATIENT nitrofurantoin Allergy Unknown Unknown Verified 11/27/19 07:24 phenazopyridine Allergy Unknown Unknown Verified 11/27/19 07:24 ranitidine Allergy Unknown Unknown Verified 11/27/19 07:24 repaglinide Allergy Unknown Unknown Verified 11/27/19 07:24 rosiglitazone Allergy Unknown Unknown Verified 11/27/19 07:24 tolterodine [From Detrol] Allergy Unknown Unknown Verified 11/27/19 07:24 aspartame Allergy Verified 11/27/19 07:24 [From Nutrasweet Aspartame] prednisone Allergy Verified 11/27/19 07:24 citalopram [From Celexa] AdvReac Severe Verified 11/27/19 07:24 glyburide AdvReac Intermediate SEVERE Verified 11/27/19 07:24 ABDOMINAL PAIN metformin AdvReac Intermediate SEVERE Verified 11/27/19 07:24 ABDOMINAL PAIN oxycodone AdvReac Intermediate SEVERE Verified 11/27/19 07:24 WITHDRAWAL SYMPTOMS WHEN TRYING TO STOP TAKING paroxetine AdvReac Intermediate DID NOT Verified 11/27/19 07:24 HELP temazepam AdvReac Intermediate DID NOT Verified 11/27/19 07:24 HELP tramadol AdvReac Intermediate Vomiting Verified 11/27/19 07:24 diazepam AdvReac Mild SEDATION Verified 11/27/19 07:24 LASTING TOO LONG meloxicam [From Mobic] AdvReac Mild SICK TO Verified 11/27/19 07:24 STOMACH albuterol AdvReac Unknown UNK Verified 11/27/19 07:24 carbamazepine AdvReac Unknown Unknown Verified 11/27/19 07:24 ibuprofen AdvReac Unknown Unknown Verified 11/27/19 07:24 lisinopril AdvReac Unknown UNK Verified 11/27/19 07:24 mirtazapine AdvReac Unknown Unknown Verified 11/27/19 07:24 olanzapine AdvReac Unknown Unknown Verified 11/27/19 07:24 rofecoxib AdvReac Unknown Unknown Verified 11/27/19 07:24 valproic acid AdvReac Unknown Unknown Verified 11/27/19 07:24 Home Medications Home Medications Medication Instructions Recorded Confirmed Type epinephrine 0.3 mg IM UD PRN 03/21/19 11/27/19 History clopidogrel 75 mg tablet 75 mg PO QAM #30 tab 03/30/19 11/27/19 Rx cholecalciferol (vitamin D3) 125 5,000 unit PO QAM #30 tab 04/03/19 11/27/19 Rx mcg (5,000 unit) tablet gabapentin 300 mg capsule 600 mg PO BID #60 cap 04/03/19 11/27/19 Rx sennosides 8.6 mg-docusate sodium 1 tab-cap PO DAILY@1200 #30 cap 04/03/19 11/27/19 Rx 50 mg capsule albuterol sulfate 1.25 mg INHALATION DAILY PRN 04/04/19 11/27/19 History blood sugar diagnostic #100 ea 04/28/19 11/14/19 Rx lancets 33 gauge #500 ea 04/29/19 11/14/19 Rx acetaminophen 500 mg tablet 1,000 mg PO Q6H PRN #60 tab 05/29/19 11/27/19 Rx ketoconazole 2 % shampoo 1 appln TOP Q14D #120 ml 05/29/19 11/27/19 Rx albuterol sulfate 90 mcg/actuation 1 - 2 puff INHALATION Q4 PRN #18 gm 07/17/19 11/27/19 Rx aerosol inhaler pen needle, diabetic 31 gauge x #500 ea 08/11/19 11/14/19 Rx 5/16" pantoprazole 40 mg tablet,delayed 40 mg PO BID #60 tab 09/04/19 11/27/19 Rx release Novolog Flexpen U-100 Insulin 100 See Rx Instructions SUBCUT TID #15 09/29/19 11/27/19 Rx unit/mL (3 mL) subcutaneous ml NS insulin aspart U-100 100 unit/mL See Rx Instructions SUBCUT TID #1 09/29/19 11/27/19 Rx (3 mL) subcutaneous pen box Basaglar KwikPen U-100 Insulin 100 34 units SUBCUT BID 90 Days #61.2 10/16/19 11/27/19 Rx unit/mL (3 mL) subcutaneous box NS docusate sodium 100 mg capsule 100 mg PO BID PRN 10/22/19 11/27/19 History escitalopram oxalate 20 mg tablet 20 mg PO QPM 10/28/19 11/27/19 History melatonin 10 mg capsule 10 mg PO HS PRN 10/28/19 11/27/19 History pravastatin 40 mg tablet 40 mg PO .COMPLEX #45 tab 10/31/19 11/27/19 Rx vitamins A,C,M-bylc-qwvlex 14,320 1 cap PO BID #60 cap 11/04/19 11/27/19 Rx unit-226 mg-200 unit capsule biotin 5,000 mcg PO BID 11/12/19 11/27/19 History coenzyme Q10 200 mg PO QAM 11/12/19 11/27/19 History diphenhydramine-acetaminophen 1 tab PO HS PRN 11/12/19 11/27/19 History [Tylenol PM Extra Strength] lidocaine [Salonpas (lidocaine)] 1 patch TOPICAL DAILY PRN 11/12/19 11/27/19 History loperamide 2 mg capsule 4 mg PO .COMPLEX PRN cap 11/14/19 11/27/19 History nitroglycerin 0.4 mg sublingual 0.4 mg SUBLINGUAL Q5M PRN #30 tab 11/14/19 11/27/19 Rx tablet escitalopram oxalate [Lexapro] 20 mg PO DAILY 11/27/19 11/27/19 History fexofenadine 60 mg PO Q12H PRN 11/27/19 11/27/19 History ibuprofen 400 mg PO Q6H PRN 11/27/19 11/27/19 History metoprolol succinate [Toprol XL] 50 mg PO QPM 11/27/19 11/27/19 History vit C,A-Fv-tzmsf-lutein-zeaxan 1 tab PO BID 11/27/19 11/27/19 History [PreserVision AREDS-2] Past Med/Surg History Medical History Acute hypercapnic respiratory failure 03/2019 [facility] DEB (acute kidney injury) Anxiety and depression Aspiration pneumonia Admitted 03/2019 [facility]. Asthma Per pulmonology 10/10/19, likely NOT asthma but chronic aspiration. Flovert and Spiriva discontinued, pt to use albuterol PRN Breast cancer UNSURE WHICH SIDE WAS CANCER. Chronic back pain Chronic neck pain Chronic pulmonary aspiration 2/2 h/o CVA, [facility]. CKD (chronic kidney disease) Dyspnea on exertion GERD (gastroesophageal reflux disease) History of benign brain tumor History of dysphagia ESOPHAGEAL DILATION IN PAST History of esophageal dilatation History of spinal stenosis History of uterine cancer Endometrial biopsy revealed endometrioid adenocarcinoma. Status post total abdominal hysterectomy and bilateral salpingo-oophorectomy. Status post completion of radiation therapy with external beam radiation as well as 2 HDR treatments completed 08/15/2013 Hypertension Left pontine stroke 01/2019, on Plavix, following with [facility] neurology. Lymphedema of right arm CHRONIC, 2/2 MASTECTOMY Meningioma R temporal lobe, neurology monitoring. Morbid obesity Neuropathy Numb feet, painful radiculopathy in hands from cervical radiculopathy Obesity hypoventilation syndrome Osteoarthritis PAC (premature atrial contraction) PVC (premature ventricular contraction) Severe obstructive sleep apnea CPAP, pt reports compliance Type 2 DM with CKD stage 3 and hypertension Uterine cancer S/P RICHARD BSO WITH RADIATION Surgical History Difficult airway for intubation History of cardiac catheterization NO STENTS History of cataract surgery BILATERAL History of cholecystectomy History of colonoscopy History of esophagogastroduodenoscopy (EGD) History of knee surgery ARTHROSCOPY LEFT KNEE History of mastectomy BILATERAL History of total abdominal hysterectomy BSO Family History Mother Diabetes Myocardial infarction Hypertension Family history of diabetes mellitus Brother Family history of diabetes mellitus Denies family history of Ovarian cancer Prostate cancer Breast cancer Colorectal cancer Social History Smoking Status: Former smoker Age Started Using Tobacco: 15; Age Quit Using Tobacco: 30; packs per day: 1; Smoking End Date: LATE ; Second Hand Exposure: Yes ( A CHILD); Do You Dip or Chew Tobacco: No; Tobacco Cessation Education Requested by Patient: No Hx Alcohol Use: No Hx Substance Use: No Preferred Language: Bermudian Communication Ability: Effective Visual Impairment: Partially Limited Hearing Ability: Hard of Hearing Hematology Supervisor Required: No Beliefs That Will Affect Care: None marital status: / Current Living Situation: Personal Care Facility Current Living Situation Comment: [facility] current occupational status: retired Feels Safe at Home: Yes Safety Concerns: Feels Safe At This Time Childhood Exposure to Second-Hand Smoke: No Dental Care, Regularly: Yes Physical Activity Frequency: Does not Exercise Seatbelt Use: always Sunscreen Use: Yes Physical Exam Physical Exam: Patient alert and oriented neurologically intact. Lungs clear to auscultation. Heart regular in rhythm. Results & Data ([facility]) Vital Signs (Past 12 Hours) Vital Signs Temp Pulse Resp BP Pulse Ox 11/27/19 07:37 36.7 C 68 20 165/64 H 96
[2019-11-27] MEDS ORDERED: BUPIVACAINE/EPINEPHRINE 0.25% 1:200,000 30 ML VIAL ONE (10:17)
[2019-11-27] MEDS ORDERED: BACITRACIN INJ 50,000 UNIT VIAL ONE (10:17)
[2019-11-27] MEDS ORDERED: THROMBIN FOR SOLN 20000 UNIT KIT ONE (11:44)
[2019-11-27] MEDS ORDERED: FLOSEAL HEMOSTATIC MATRIX 10ML TOP ONE (12:19)
[2019-11-27] MEDS ORDERED: CLINDAMYCIN 600 MG/54 ML BAG IV ONE (12:21)
[2019-11-27] MEDS ORDERED: SUGAMMADEX SODIUM 200 MG/2 ML VIAL IV ONE (12:28)
[2019-11-27] MEDS ORDERED: ONDANSETRON INJ 2 MG/ML 2 ML VIAL IV PRN ×2 (13:17→15:21)
[2019-11-27] MEDS ORDERED: ePHEDrine sulfate 50 MG/ML AMP IV PRN (13:17)
[2019-11-27] MEDS ORDERED: ATROPINE SULFATE 0.1 MG/ML 10ML SYR IV PRN (13:17)
--- NOTE | 2019-11-27 13:30 | Operative Report ---
Post Operative Report Pre & Post Diagnosis Operation Date: 11/27/19 09:35 Pre-Op Diagnosis: Spinal Stenosis, Lumbar Region with Neurogenic Cla Post-Op Diagnosis: Spinal Stenosis, Lumbar Region with Neurogenic Cla I identified the patient and participated in the time-out.: Yes Procedure Operation Date: 11/27/19 09:35 Actual Procedures #1 lumbar decompression with bilateral medial facetectomies and foraminotomies T12-L1, L1-L2, L2-L3. #2 posterior spinal fusion T12-L4. #3 placed a posterior segmental instrumentation T12 and L4. #4 placement of locally harvested morselized autograft in the posterior gutters. #5 placement infuse collagen sponge, master graft in the posterior lateral gutters. Surgeon Salazar Rodrigues, Plant Senior Manager Emily Garcia Estimated Blood Loss 450 Findings See Below The patient is 5 foot 1 inches tall weighing over 101 kg a BMI in excess of 42. Patient's body habitus did add significant technical difficulty requiring her deepest retractors and longus instruments in order to perform her procedure. We will also increase the intensity of postoperative care. This at least 50% increase to the operative time. Specimens None Indications This is a 79-year-old female known to me the presents with marked decline in status and severe spinal stenosis. Subsequently she is here for the above- mentioned procedure. Description of Procedure Patient was met with identified informed consent obtained. Patient was then taken to the operative suite underwent an patient placed in prone position the Marko table on top Donal frame. All bony prominences well-padded eyes inspected to ensure no external pressure placed upon them. This point the thoracolumbar spine was prepped and draped in a sterile fashion. Sharp dissection with assistance of Bovie cautery was performed down to and exposing the lamina and transverse processes of T12 L1-L2-L3 and L4 bilaterally. From a caudal cephalad fashion complete laminectomy of L3 L2 L1 was performed clean bilateral medial facetectomies and foraminotomies addressing severe spinal stenosis. Pedicle screws were then placed in T12 L1-L2-L3 and L4 bilaterally with assistance of fluoroscopy and appropriate size aniya locked in position. The transverse processes of T12-L4 were then burred to subcortical bleeding bone. Infuse collagen sponge master graft local autograft was placed in the posterior gutters. 15 round SHAHEEN drain inserted. The incision was then closed with 1 Vicryl in the fascia 2-0 Vicryl subcutaneously and 4 Monocryl for final skin closure. Steri-Strip sterile dressings placed. Patient waken him back in stable condition. Please note spinal cord monitoring was utilized that the procedure no changes noted. Lastly Emily Garcia was present throughout the entire procedure involved the patient positioning complex portions of the surgery for skin closure. I attest to the content of the Intraoperative Record and any orders documented therein. Any exceptions are noted below.
--- NOTE | 2019-11-27 13:42 | Fluoroscopy Report ---
LUMBAR SPINE, INTRAOPERATIVE FLUOROSCOPY HISTORY: T12-L4 decompression and fusion. FLUOROSCOPY TIME: 34 seconds. FINDINGS: Intraoperative fluoroscopy was provided for the lumbar spine. 4 fluoroscopic spot images we re obtained. Posterior decompression and fusion from T12 through L4 with pedicle screws and rods. The hardware appears intact. IMPRESSION: Fluoroscopy provided for a T12-L4 posterior decompression and fusion. ACT 112: Negative or not required by law. Electronically signed by: Javy Mcdaniel M.D. 11/27/2019 1:41 PM
[2019-11-27] MEDS: fentaNYL citrate 100 MCG/2 ML VIAL IV PRN ×2 (14:10→14:30)
--- NOTE | 2019-11-27 14:50 | Anesthesiology Progress Note ---
Date of Service November 27, 2019 Anesthesia Post Procedure Vital Signs Vital Signs: Temp Pulse Pulse Resp BP Pulse Ox 11/27/19 14:40 80 16 157/47 H 96 11/27/19 14:30 76 16 186/74 H 98 11/27/19 14:20 76 16 180/59 H 100 11/27/19 14:10 73 16 179/88 H 100 11/27/19 14:02 36.9 C 70 16 194/70 H 100 11/27/19 07:37 36.7 C 68 20 165/64 H 96 Transfer of Care Handoff Completed per policy Notes Mental Status: alert / awake / arousable and participated in evaluation Patient Amnestic to Procedure: Yes Nausea / Vomiting: adequately controlled Pain: adequately controlled Airway Patency, RR, SpO2: stable & adequate BP & HR: stable & adequate Hydration State: stable & adequate Anesthetic Complications: no major complications apparent and see Notes below Notes: Patient VERY sensitive to narcotics and was obstructing initially in PACU. Order placed for continuous pulse oximetry and will need judicious use of narcotics.
--- NOTE | 2019-11-27 15:03 | Procedure Note ---
Procedure Note Date of Service November 27, 2019 Radial arterial line placed in left radial after induction in preparation for multilevel back surgery with Dr. Rodrigues. Left wrist prepped with chlorhexidine and draped with sterile towels. 20 G angiocath placed under sterile technique with ultrasound guidance and utilizing sterile gloves, surgical hats and masks. Catheter threaded using seldinger technique with return of pulsatile, bright red blood. Site covered with occlusive dressing and taped in place. Waveform consistent with correct arterial placement. After placement, fingers of procedural hand had normal perfusion. Patient tolerated procedure well without complications. Janice Cárdenas MD, PhD Anesthesiologist Coding
[2019-11-27] MEDS ORDERED: SOD PHOSPHATE/SOD BIPHOSPHATE ENEMA 132 ML BTL PR PRN (15:21)
[2019-11-27] MEDS ORDERED: ACETAMINOPHEN 1,000 MG/100 ML VIAL IV PRN (15:21)
[2019-11-27] MEDS ORDERED: DO NOT ADMINISTER FLU VACCINE PRN (15:21)
[2019-11-27] MEDS ORDERED: HYDROmorphone INJ 1 MG/ML SYRINGE IV PRN (15:21)
[2019-11-27] MEDS ORDERED: HYDROmorphone INJ 0.5 MG/0.5 ML SYR IV PRN (15:21)
[2019-11-27] MEDS ORDERED: FAMOTIDINE 20 MG TAB PO PRN (15:21)
[2019-11-27] MEDS ORDERED: MELATONIN 3 MG TAB PO PRN (15:21)
[2019-11-27] MEDS ORDERED: NALOXONE HCL 0.4 MG/1 ML VIAL/CARP IV PRN (15:21)
[2019-11-27] MEDS ORDERED: NON-FORMULARY MEDICATION (Diphenhydramine-Acetaminophen [Tylenol Pm Extra Strength] 1 TAB) PO PRN (15:21)
[2019-11-27] MEDS ORDERED: EPINEPHrine INJ 1 MG/ML AMP IM PRN (15:21)
[2019-11-27] MEDS ORDERED: NITROGLYCERIN SL 0.4 MG/TAB TAB SL PRN (15:21)
[2019-11-27] MEDS ORDERED: LORazepam 0.5 MG/1 ML VIAL IV PRN (15:21)
[2019-11-27] MEDS ORDERED: ACETAMINOPHEN 500 MG TAB PO PRN (15:21)
[2019-11-27] MEDS ORDERED: ONDANSETRON 4 MG OD TAB PO PRN (15:21)
[2019-11-27] MEDS ORDERED: OXYCODONE HCL IR 5 MG TAB (IMMEDIATE RELEASE) PO PRN (15:21)
[2019-11-27] MEDS ORDERED: MAGNESIUM HYDROXIDE SUSP 30 ML UDC PO PRN (15:21)
[2019-11-27] MEDS ORDERED: DO NOT ADMINISTER PNEUMOCOCCAL VACCINE PRN (15:21)
[2019-11-27] MEDS ORDERED: LORazepam 0.5 MG TAB PO PRN (15:21)
[2019-11-27] MEDS ORDERED: PROMETHAZINE HCL 12.5 MG in SODIUM CHLORIDE 0.9% 50 ML IV PRN (15:21)
[2019-11-27] MEDS ORDERED: ALUMINUM/MAGNESIUM SUSP 30 ML UDC PO PRN (15:21)
[2019-11-27] MEDS ORDERED: FEXOFENADINE 60 MG TAB PO PRN (15:21)
[2019-11-27] MEDS ORDERED: METOCLOPRAMIDE HCL INJ 5 MG/ML 2 ML VIAL IV PRN (15:21)
[2019-11-27] MEDS ORDERED: bisacodyL 10 MG SUPP PR PRN (15:21)
[2019-11-27] MEDS ORDERED: LOPERAMIDE HCL 2 MG CAP PO PRN (15:21)
--- NOTE | 2019-11-27 16:01 | Anesthesiology Progress Note ---
Date of Service November 27, 2019 Anesthesia Post Procedure Vital Signs Vital Signs: Temp Pulse Pulse Resp BP Pulse Ox 11/27/19 14:50 36.5 C 80 16 143/85 H 100 11/27/19 14:40 80 16 157/47 H 96 11/27/19 14:30 76 16 186/74 H 98 11/27/19 14:20 76 16 180/59 H 100 11/27/19 14:10 73 16 179/88 H 100 11/27/19 14:02 36.9 C 70 16 194/70 H 100 11/27/19 07:37 36.7 C 68 20 165/64 H 96 Transfer of Care Handoff Completed per policy Notes Mental Status: alert / awake / arousable and participated in evaluation Patient Amnestic to Procedure: Yes Nausea / Vomiting: adequately controlled Pain: adequately controlled Airway Patency, RR, SpO2: stable & adequate BP & HR: stable & adequate Hydration State: stable & adequate Anesthetic Complications: no major complications apparent and Pt Satisfied with anesthetic care
[2019-11-27] MEDS ORDERED: PHARMACY GLYCEMIC MGMT CONSULT SCH (16:02)
[2019-11-27] MEDS ORDERED: DEXTROSE 50% 50 ML SYRINGE IV PRN (16:30)
[2019-11-27] MEDS ORDERED: INSULIN GLARGINE SOLOSTAR 100 UNITS/ML 3 ML PEN SC SCH (16:30)
[2019-11-27] MEDS ORDERED: GLUCOSE 40% GEL 15 GM TUBE PO PRN (16:30)
[2019-11-27] MEDS ORDERED: CARBOHYDRATES FOR HYPOGLYCEMIA PO PRN (16:30)
[2019-11-27] MEDS ORDERED: GLUCOSE 10 TABS/TUBE PO PRN (16:30)
[2019-11-27] MEDS ORDERED: GLUCAGON FOR INJ 1 MG VIAL IM PRN (16:30)
--- NOTE | 2019-11-27 16:49 | Hospitalist Consultation ---
Date of Consultation November 27, 2019 Assessment & Plan (1) Neurogenic claudication due to lumbar spinal stenosis: As mentioned Dr. Rodrigues performed T12 L4 decompression fusion for the symptoms failing outpatient conservative management Patient placed on gabapentin perioperatively and pain control as per the surgical team (2) Type 2 DM with CKD stage 3 and hypertension: Given her diabetes she is on a carbohydrate conservative diet she typically uses Basaglar 34 units twice daily plus insulin aspartate pen should be on sliding scale basal bolus insulin with diabetic pharmacy oversight Patient CKD stage III, is about stable for her, she is not on an DENILSON inhibitor due to list that it is allergy consideration for ARB could be undertaken by her primary care provider for diabetic renal protection (3) Severe obstructive sleep apnea: Patient had a preoperative negative COVID test she will supply her own positive pressure noninvasive ventilation system to use in the hospital while sleeping (4) GERD (gastroesophageal reflux disease): (5) Hypertension: Patient continues on metoprolol XL 50 mg p.m. as mentioned negative stress test 2017 and cardiology is agreed to hold preoperative Plavix for 1 week (6) Anxiety and depression: Typically takes escitalopram 20 mg daily History of Present Illness Attending Physician: Salazar Rodrigues, History of Present Illness Patient underwent T12-L4 decompression and fusion by Dr. Rodrigues on 11/27/2019 were consulted for postoperative management. This patient is a history of hypertension, type 2 diabetes, dyslipidemia, obstructive sleep apnea, obesity hypoventilation syndrome. And reactive airway disease secondary to chronic aspiration. Chronic kidney disease stage III, history of previous strokes, history of breast cancer status post mastectomy. She underwent a dobutamine stress echo on October [id number] that was negative this the most recent stress test. Cardiology recommended holding Plavix prior to surgery and to proceed to surgery without further cardiac work-up Allergies Allergy/AdvReac Type Severity Reaction Status Date / Time Bactrim Allergy Severe THROAT Verified 05/14/15 15:22 CLOSED celecoxib [From Celebrex] Allergy Severe CAUSED Verified 11/27/19 07:24 STROKE meperidine Allergy Severe almost Verified 11/27/19 07:24 "closed throat" midodrine Allergy Severe "almost Verified 11/27/19 07:24 closed throat" Penicillins Allergy Severe ANAPHYLAXIS Verified 11/27/19 07:24 Quinolones Allergy Severe TOLERATED Verified 11/27/19 07:24 LEVAQUIN IV - SEP 06 sulfamethoxazole Allergy Severe THROAT Verified 11/27/19 07:24 CLOSED trimethoprim Allergy Severe THROAT Verified 11/27/19 07:24 CLOSED diphenoxylate Allergy Intermediate Unknown Verified 11/27/19 07:24 metronidazole [From Flagyl] Allergy Intermediate Hives Verified 11/27/19 07:24 DENILSON Inhibitors Allergy Unknown unknown to Verified 11/27/19 07:24 pt atropine Allergy Unknown Unknown Verified 11/27/19 07:24 carvedilol Allergy Unknown Unknown Verified 11/27/19 07:24 clonazepam [From Klonopin] Allergy Unknown Unknown Verified 11/27/19 07:24 doxycycline Allergy Unknown Unknown Verified 11/27/19 07:24 furosemide [From Lasix] Allergy Unknown Unknown Verified 11/27/19 07:24 Histamine H2 Inhibitors Allergy Unknown unknown to Verified 11/27/19 07:24 pt Iodinated Contrast Media Allergy Unknown JULY 2017 Verified 11/27/19 07:24 [facility] -- TOLERATED WITH SLOW INFUSION PER PATIENT nitrofurantoin Allergy Unknown Unknown Verified 11/27/19 07:24 phenazopyridine Allergy Unknown Unknown Verified 11/27/19 07:24 ranitidine Allergy Unknown Unknown Verified 11/27/19 07:24 repaglinide Allergy Unknown Unknown Verified 11/27/19 07:24 rosiglitazone Allergy Unknown Unknown Verified 11/27/19 07:24 tolterodine [From Detrol] Allergy Unknown Unknown Verified 11/27/19 07:24 aspartame Allergy Verified 11/27/19 07:24 [From Nutrasweet Aspartame] prednisone Allergy Verified 11/27/19 07:24 citalopram [From Celexa] AdvReac Severe Verified 11/27/19 07:24 glyburide AdvReac Intermediate SEVERE Verified 11/27/19 07:24 ABDOMINAL PAIN metformin AdvReac Intermediate SEVERE Verified 11/27/19 07:24 ABDOMINAL PAIN oxycodone AdvReac Intermediate SEVERE Verified 11/27/19 07:24 WITHDRAWAL SYMPTOMS WHEN TRYING TO STOP TAKING paroxetine AdvReac Intermediate DID NOT Verified 11/27/19 07:24 HELP temazepam AdvReac Intermediate DID NOT Verified 11/27/19 07:24 HELP tramadol AdvReac Intermediate Vomiting Verified 11/27/19 07:24 diazepam AdvReac Mild SEDATION Verified 11/27/19 07:24 LASTING TOO LONG meloxicam [From Mobic] AdvReac Mild SICK TO Verified 11/27/19 07:24 STOMACH albuterol AdvReac Unknown UNK Verified 11/27/19 07:24 carbamazepine AdvReac Unknown Unknown Verified 11/27/19 07:24 ibuprofen AdvReac Unknown Unknown Verified 11/27/19 07:24 lisinopril AdvReac Unknown UNK Verified 11/27/19 07:24 mirtazapine AdvReac Unknown Unknown Verified 11/27/19 07:24 olanzapine AdvReac Unknown Unknown Verified 11/27/19 07:24 rofecoxib AdvReac Unknown Unknown Verified 11/27/19 07:24 valproic acid AdvReac Unknown Unknown Verified 11/27/19 07:24 Home Medications Home Medications Medication Instructions Recorded Confirmed Type epinephrine 0.3 mg IM UD PRN 03/21/19 11/27/19 History clopidogrel 75 mg tablet 75 mg PO QAM #30 tab 03/30/19 11/27/19 Rx cholecalciferol (vitamin D3) 125 5,000 unit PO QAM #30 tab 04/03/19 11/27/19 Rx mcg (5,000 unit) tablet gabapentin 300 mg capsule 600 mg PO BID #60 cap 04/03/19 11/27/19 Rx sennosides 8.6 mg-docusate sodium 1 tab-cap PO DAILY@1200 #30 cap 04/03/19 11/27/19 Rx 50 mg capsule albuterol sulfate 1.25 mg INHALATION DAILY PRN 04/04/19 11/27/19 History blood sugar diagnostic #100 ea 04/28/19 11/14/19 Rx lancets 33 gauge #500 ea 04/29/19 11/14/19 Rx acetaminophen 500 mg tablet 1,000 mg PO Q6H PRN #60 tab 05/29/19 11/27/19 Rx ketoconazole 2 % shampoo 1 appln TOP Q14D #120 ml 05/29/19 11/27/19 Rx albuterol sulfate 90 mcg/actuation 1 - 2 puff INHALATION Q4 PRN #18 gm 07/17/19 11/27/19 Rx aerosol inhaler pen needle, diabetic 31 gauge x #500 ea 08/11/19 11/14/19 Rx 5/16" pantoprazole 40 mg tablet,delayed 40 mg PO BID #60 tab 09/04/19 11/27/19 Rx release Novolog Flexpen U-100 Insulin 100 See Rx Instructions SUBCUT TID #15 09/29/19 11/27/19 Rx unit/mL (3 mL) subcutaneous ml NS insulin aspart U-100 100 unit/mL See Rx Instructions SUBCUT TID #1 09/29/19 11/27/19 Rx (3 mL) subcutaneous pen box Lakeaglar KwikPen U-100 Insulin 100 34 units SUBCUT BID 90 Days #61.2 10/16/19 11/27/19 Rx unit/mL (3 mL) subcutaneous box NS docusate sodium 100 mg capsule 100 mg PO BID PRN 10/22/19 11/27/19 History escitalopram oxalate 20 mg tablet 20 mg PO QPM 10/28/19 11/27/19 History melatonin 10 mg capsule 10 mg PO HS PRN 10/28/19 11/27/19 History pravastatin 40 mg tablet 40 mg PO .COMPLEX #45 tab 10/31/19 11/27/19 Rx vitamins A,C,C-wdyc-pyzhzj 14,320 1 cap PO BID #60 cap 11/04/19 11/27/19 Rx unit-226 mg-200 unit capsule biotin 5,000 mcg PO BID 11/12/19 11/27/19 History coenzyme Q10 200 mg PO QAM 11/12/19 11/27/19 History diphenhydramine-acetaminophen 1 tab PO HS PRN 11/12/19 11/27/19 History [Tylenol PM Extra Strength] lidocaine [Salonpas (lidocaine)] 1 patch TOPICAL DAILY PRN 11/12/19 11/27/19 History loperamide 2 mg capsule 4 mg PO .COMPLEX PRN cap 11/14/19 11/27/19 History nitroglycerin 0.4 mg sublingual 0.4 mg SUBLINGUAL Q5M PRN #30 tab 11/14/19 11/27/19 Rx tablet fexofenadine 60 mg PO Q12H PRN 11/27/19 11/27/19 History ibuprofen 400 mg PO Q6H PRN 11/27/19 11/27/19 History metoprolol succinate [Toprol XL] 50 mg PO QPM 11/27/19 11/27/19 History vit C,O-Vl-oiqog-lutein-zeaxan 1 tab PO BID 11/27/19 11/27/19 History [PreserVision AREDS-2] Patient History Medical History (Updated 11/27/19 @ 16:55 by Dyllan Feliciano MD) Acute hypercapnic respiratory failure 03/2019 [facility] DEB (acute kidney injury) Anxiety and depression Aspiration pneumonia Admitted 03/2019 [facility]. Asthma Per pulmonology 10/10/19, likely NOT asthma but chronic aspiration. Flovert and Spiriva discontinued, pt to use albuterol PRN Breast cancer UNSURE WHICH SIDE WAS CANCER. Chronic back pain Chronic neck pain Chronic pulmonary aspiration 2/2 h/o CVA, [facility]. CKD (chronic kidney disease) Dyspnea on exertion GERD (gastroesophageal reflux disease) History of benign brain tumor History of dysphagia ESOPHAGEAL DILATION IN PAST History of esophageal dilatation History of spinal stenosis History of uterine cancer Endometrial biopsy revealed endometrioid adenocarcinoma. Status post total abdominal hysterectomy and bilateral salpingo-oophorectomy. Status post completion of radiation therapy with external beam radiation as well as 2 HDR treatments completed 08/15/2013 Hypertension Left pontine stroke 01/2019, on Plavix, following with [facility] [place] neurology. Lymphedema of right arm CHRONIC, 2/2 MASTECTOMY Meningioma R temporal lobe, neurology monitoring. Morbid obesity Neuropathy Numb feet, painful radiculopathy in hands from cervical radiculopathy Obesity hypoventilation syndrome Osteoarthritis PAC (premature atrial contraction) PVC (premature ventricular contraction) Severe obstructive sleep apnea CPAP, pt reports compliance Type 2 DM with CKD stage 3 and hypertension Uterine cancer S/P RICHARD BSO WITH RADIATION Surgical History Difficult airway for intubation History of cardiac catheterization NO STENTS History of cataract surgery BILATERAL History of cholecystectomy History of colonoscopy History of esophagogastroduodenoscopy (EGD) History of knee surgery ARTHROSCOPY LEFT KNEE History of mastectomy BILATERAL History of total abdominal hysterectomy BSO Family History Mother Diabetes Myocardial infarction Hypertension Family history of diabetes mellitus Brother Family history of diabetes mellitus Denies family history of Ovarian cancer Prostate cancer Breast cancer Colorectal cancer Social History Smoking Status: Former smoker Age Started Using Tobacco: 15; Age Quit Using Tobacco: 30; packs per day: 1; Smoking End Date: LATE ; Second Hand Exposure: Yes ( A CHILD); Do You Dip or Chew Tobacco: No; Tobacco Cessation Education Requested by Patient: No Hx Alcohol Use: No Hx Substance Use: No Preferred Language: Yakut Communication Ability: Effective Visual Impairment: Partially Limited Hearing Ability: Hard of Hearing Immigration Law Specialist Required: No Beliefs That Will Affect Care: None marital status: / Current Living Situation: Personal Care Facility Current Living Situation Comment: [facility] current occupational status: retired Feels Safe at Home: Yes Safety Concerns: Feels Safe At This Time Childhood Exposure to Second-Hand Smoke: No Dental Care, Regularly: Yes Physical Activity Frequency: Does not Exercise Seatbelt Use: always Sunscreen Use: Yes Review of Systems Review of Systems: Mild distress and fatigue, c/o some back pain no headache, blurry or double vision no speech or swallowing issues no chest pain, pressure or palpitations no shortness of breath, cough or wheezes no abdominal pain, nausea or vomiting, diarrhea or constipation no dysuria, hematuria or frequency no focal joint pain or swelling back pain at operative site no bruising, bleeding or rashes no focal signs of weakness or numbness or altered sensation no complaints or anxiety or depression. Physical Exam Physical Exam: The patient appeared well nourished and normally developed. Vital signs as documented. Head exam is normocephalic atraumatic no scleral icterus Neck is without JVD, thyromegaly, or carotid bruits. Lungs are clear to auscultation, no focal loss of breath sounds Cardiac exam, Rhythm is regular.. No murmurs, rubs or gallops. Abdominal exam reveals normal bowel sounds, soft non tender, no masses Extremities are nonedematous and both pedal pulses are normal. Neurologic exam is alert and oriented, no focal loss of strength or sensation, legs are painful to move Skin is without bruises or rashes Psychologically is without concerns for anxiety or depression. Results & Data Results & Data ([facility]) Vital Signs (Past 12 Hours) Vital Signs Temp Pulse Pulse Resp BP Pulse Ox 11/27/19 16:30 97.5 F L 75 17 153/77 H 100 11/27/19 14:50 97.7 F 80 16 143/85 H 100 11/27/19 14:40 80 16 157/47 H 96 11/27/19 14:30 76 16 186/74 H 98 11/27/19 14:20 76 16 180/59 H 100 11/27/19 14:10 73 16 179/88 H 100 11/27/19 14:02 98.4 F 70 16 194/70 H 100 11/27/19 07:37 98.1 F 68 20 165/64 H 96 chest x-ray performed preoperatively shows a 12 mm nodule the right lower lobe this is previously been identified on CTs but continued surveillance is recommended PG Care Time/CCT Total # of Minutes Spent Total Time Spent with Patient: Total time spent is greater than 50% in coordination of care (as documented) at patient's floor/unit and/or counseling patient: Coding Level of Care Code 59537 Inpt Consult Level 3 Diagnoses Neurogenic claudication due to lumbar spinal stenosis M48.062 Type 2 DM with CKD stage 3 and hypertension E11.22; I12.9; N18.3 Severe obstructive sleep apnea G47.33 GERD (gastroesophageal reflux disease) K21.9 Hypertension I10 Hypertension type: unspecified Anxiety and depression F41.9; F32.9 (1) Hypertension Hypertension type: unspecified Qualified Code(s): I10 - Essential (primary) hypertension
[2019-11-27] MEDS: INSULIN ASPART 100 UNITS/ML 3 ML PEN SQ SCH ×2 (17:18→21:07)
[2019-11-27] MEDS: SODIUM CHLORIDE 0.9% 1000ML 1,000 ML IV SCH (17:18)
--- NOTE | 2019-11-27 17:21 | Pharmacy Report ---
Glycemic Control Consultation - Date of Service November 27, 2019 - Scope Scope: Glycemic Pharmacist consulted for glycemic control and to write orders per [facility] inpatient glycemic control protocol. - Objective Weight: 101.242 kg Accuchecks BSG (last 24hrs): 11/27/19 11/27/19 11/27/19 07:30 14:16 16:33 POC Glucose 154 H 167 H 195 H - Recent Pertinent Medications Outpatient Anti-diabetic Regimen: * Lantus 34 units SC BID * Novolog 5 units SC w/ breakfast, 12 units w/ lunch, and 9 units w/ dinner * A1c = 7.6 % (09/23/19) Risk Factors for Insulin Resistance: * Recent Surgery: POD #0 s/p lumbar decompression/fusion * Diet ordered - Assessment & Plan Assessment & Plan: ASSESSMENT: * OLIVA is a 79 year old female POD #0 s/p lumbar decompression/fusion * No perioperative steroids administered * BSGs today have been 154, 167, and 195 mg/dL * Called [facility] and confirmed that patient did not receive any insulin yet today * Patient is lethargic postoperatively and unlikely to have significant PO intake per RN * Will give Lantus 34 units x 1 postoperatively (possibly utilize a 50% reduction of home dose) PLAN FOR INPATIENT GLYCEMIC CONTROL: * Basal insulin * Lantus 34 units SQ x 1 * Can likely resume home regimen of 34 units BID once diet is back at baseline * Bolus insulin * NovoLog per scale ACHS or Q6hrs while NPO * Goal Range: Low 110 mg/dL - High 140 mg/dL * Correction Factor: 20 mg/dL/unit * Nutritional / Prandial insulin per carb ratio of 1 unit per 7 grams CHO consumed * ,04 checks with same parameters * Please note that the plan above was derived based on current level of insulin resistance and hospital stress. These recommendations are appropriate for inpatient admission only. Plan of care upon discharge will need to be reassessed to avoid potential outpatient hypo/hyperglycemia. Thank you.
[2019-11-27] MEDS: CLINDAMYCIN 600 MG in DEXTROSE 5% 50 ML IV SCH (20:52)
[2019-11-27] MEDS ORDERED: NON-FORMULARY MEDICATION (Vitamins A,C,E-Zinc-Copper [Preservision Areds] 1 CAP) PO SCH (21:00)
--- NOTE | 2019-11-27 21:37 | Communication Note ---
Date of Service: November 27, 2019 Patient received Dilaudid 1mg IV as per PRN pain orders. Now with respiratory depression in the 60s SpO2 but that is fixed with redirection to take deep breaths. Do not feel it would be in best interest of patient to reverse. Respiratory will come see patient at bedside for possible BiPAP/CPAP interventional approach. She is currently on home CPAP. A 1:1 is with her that is reminding her to take deep breaths that corrects and is treating problem. Will hold any further Dilaudid and Ativan overnight. Resident Activity Tracking Resident Involvement: Resident Care Provided Care Provided: Adult Hospital Medicine
[2019-11-27] MEDS: ESCITALOPRAM OXALATE 20 MG TAB PO SCH (21:49)
[2019-11-27] MEDS: PANTOprazole 40 MG TAB PO SCH (21:50)
[2019-11-27] MEDS: METOPROLOL SUCC 50MG EXT REL TAB PO SCH (21:50)
[2019-11-27] MEDS: GABAPENTIN 600 MG TAB PO SCH (21:50)
[2019-11-27] MEDS: DOCUSATE SODIUM/SENNA 50/8.6MG TAB PO SCH (21:50)
[2019-11-27] MEDS: CEROVITE ADV FORMULA TAB PO SCH (21:50)
[2019-11-28] MEDS: INSULIN ASPART 100 UNITS/ML 3 ML PEN SQ SCH ×6 (01:17→20:42)
[2019-11-28] MEDS: SODIUM CHLORIDE 0.9% 1000ML 1,000 ML IV SCH ×2 (02:43→12:54)
[2019-11-28] MEDS: CLINDAMYCIN 600 MG in DEXTROSE 5% 50 ML IV SCH (04:11)
[2019-11-28] MEDS: POLYETHYLENE (MIRALAX) 17 GM PACK PO SCH ×3 (06:16→16:40)
[2019-11-28 06:43] LABS: Basophils # (auto) 0.01 K/uL (0-0.2); Basophils % (auto) 0.2 %; Eosinophils # (auto) 0.01 K/uL (0-0.5); Eosinophils % (auto) 0.2 %; Hemoglobin 9.2 g/dL (12.0-16.0); Immature Granulocytes # (auto) 0.01 K/uL (0.00-0.02); Immature Granulocytes % (auto) 0.2 %; Lymphocytes # (auto) 0.55 K/uL (1.2-3.4); Lymphocytes % (auto) 8.9 %; Mean Corpuscular Hemoglobin 22.5 pg (25-34); Mean Corpuscular Hgb Conc 29.7 g/dL (32-36); Mean Platelet Volume 8.9 fL (7.4-10.4); Monocytes # (auto) 0.63 K/uL (0.11-0.59); Monocytes % (auto) 10.2 %; Neutrophils # (auto) 4.98 K/uL (1.4-6.5); Neutrophils % (auto) 80.3 %; Platelet Count 113 K/uL (130-400); RDW Coefficient of Variation 15.6 % (11.5-14.5); RDW Standard Deviation 43.4 fL (36.4-46.3); Red Blood Count 4.08 M/uL (4.2-5.4); White Blood Count 6.19 K/uL (4.8-10.8)
[2019-11-28 07:14] LABS: BUN Creatinine Ratio 20.7 (10-20); Calcium 7.8 mg/dl (8.5-10.1); Creatinine Clr Calc Pharmacy 47.6 ml/min; Est GFR (African American) 58.5; Est GFR (Non-African American) 50.5; Potassium 4.4 mmol/L (3.5-5.1)
--- NOTE | 2019-11-28 08:09 | Anesthesiology Progress Note ---
Date of Service November 28, 2019 Becamee unresponsive after 8:40 PM dose of Dilaudid, CPAP applied, more responsive this AM, but continues to wear the CPAP, as she desaturates to 85% when CPAP removed. Will continue to follow post-op course. Anesthesia Post Procedure Vital Signs Vital Signs: Temp Pulse Pulse Pulse Resp BP Pulse Ox 11/28/19 07:10 37.5 C 87 19 164/68 H 100 11/28/19 04:00 37.3 C 91 H 20 159/80 H 91 11/28/19 03:23 92 H 22 93 11/28/19 01:19 87 17 92 11/27/19 23:21 86 11/27/19 23:00 37.0 C 88 16 160/73 H 93 11/27/19 21:55 81 18 97 11/27/19 21:10 37.1 C 80 21 109/58 L 94 11/27/19 19:01 36.8 C 78 23 141/76 H 91 11/27/19 17:30 36.5 C 79 21 156/79 H 99 11/27/19 16:30 36.4 C L 75 17 153/77 H 100 11/27/19 15:23 11/27/19 15:15 36.7 C 74 16 156/80 H 100 11/27/19 14:50 36.5 C 80 16 143/85 H 100 11/27/19 14:40 80 16 157/47 H 96 11/27/19 14:30 76 16 186/74 H 98 11/27/19 14:20 76 16 180/59 H 100 11/27/19 14:10 73 16 179/88 H 100 11/27/19 14:02 36.9 C 70 16 194/70 H 100 Pulse Ox 11/28/19 07:10 11/28/19 04:00 11/28/19 03:23 11/28/19 01:19 11/27/19 23:21 11/27/19 23:00 11/27/19 21:55 11/27/19 21:10 11/27/19 19:01 11/27/19 17:30 11/27/19 16:30 11/27/19 15:23 97 11/27/19 15:15 11/27/19 14:50 11/27/19 14:40 11/27/19 14:30 11/27/19 14:20 11/27/19 14:10 11/27/19 14:02 Pain Intensity Bilateral Back: Pain Intensity: 10 Notes Mental Status: alert / awake / arousable and participated in evaluation Patient Amnestic to Procedure: Yes Nausea / Vomiting: adequately controlled Pain: adequately controlled Airway Patency, RR, SpO2: stable & adequate BP & HR: stable & adequate Hydration State: stable & adequate Anesthetic Complications: no major complications apparent and Pt Satisfied with anesthetic care
[2019-11-28] MEDS: PANTOprazole 40 MG TAB PO SCH ×2 (08:38→20:37)
[2019-11-28] MEDS: PRAVASTATIN SOD 40 MG TAB PO SCH (08:38)
[2019-11-28] MEDS: CEROVITE ADV FORMULA TAB PO SCH ×2 (08:38→20:36)
[2019-11-28] MEDS: GABAPENTIN 600 MG TAB PO SCH ×2 (08:39→20:33)
[2019-11-28] MEDS: CHOLECALCIFEROL 1,000 UNITS 25 MCG TAB PO SCH (08:40)
[2019-11-28] MEDS ORDERED: ESCITALOPRAM OXALATE 20 MG TAB PO SCH (09:00)
[2019-11-28] MEDS ORDERED: INSULIN GLARGINE SOLOSTAR 100 UNITS/ML 3 ML PEN SC SCH ×2 (09:00)
[2019-11-28] MEDS ORDERED: NON-FORMULARY MEDICATION (Coenzyme Q10 200 MG) PO SCH (09:00)
[2019-11-28 09:37] LABS: Ferritin 40.1 ng/ml (8-388)
--- NOTE | 2019-11-28 10:56 | XRay Report ---
XR chest 1V portable HISTORY: hypoxia COMPARISON: Chest 11/13/2019. FINDINGS: A few small linear density within the left lung base, unchanged. This favors scarring or at electasis. The lungs are otherwise clear. The heart is normal in size. No pleural effusions. No pneum othorax. Thoracolumbar spinal fusion hardware is noted. IMPRESSION: No acute process. ACT 112: Negative or not required by law. Electronically signed by: Javy Mcdaniel M.D. 11/28/2019 10:54 AM
[2019-11-28] MEDS: OXYCODONE HCL IR 5 MG TAB (IMMEDIATE RELEASE) PO PRN ×3 (11:01→20:34)
--- NOTE | 2019-11-28 11:22 | Hospitalist Progress Note ---
Date of Service November 28, 2019 Assessment & Plan (1) Acute respiratory failure with hypoxia: Pt had acute resp failure with hypoxia overnight after receiving IV dilaudid and had POx 60%, difficult to wake up. She was placed on BiPAP overnight and was just weaned off in the AM, still some hypoxia which improved on NC O2 Has a h/o chronic suspected aspiration CT Chest on 11/24 performed preoperatively for abnormal CXR does show a RML possible inflammatory opacity-no f/u on this from what I can tell -did have low grade fever this evening but could also be from atelectasis -continue supplemental O2 to keep POx> 90%, has a h/o hypercapnia as well so would not give too much O2 -continue CPAP at nighttime at 14 cm H2O is her home dose although compliance is poor as per notes from Pulm -discontinued all sedating meds including IV dilaudid and ativan, hydroxyzine and benadryl -can give very low dose oxycodone for pain with caution-tolerated this well today -follows with Pulm Dr. Carreon -check PCT in AM to see if correlates -of note, did receive 3 doses of IV clindamycin for surgery periop prophylaxis but would also cover for asp PNA if present -no abx at this time unless continues to spike fevers or have symptoms of PNA CXR here with NAD (2) Acute metabolic encephalopathy: With mild confusion this AM after having hypoxia overnight COuld also be related to opioid use overnight Observe for improvement with treatment of resp failure as above, avoidance of excessive sedation With fever, check UA and CXR as above (3) Fever: could be atelectasis hypoxia seemed directly related to receiving IV dilaudid high dose and not having BiPAP/CPAP in place, do not suspect PE -check UA CXR as above no PNA but did have abnl RML on Chest CT follow give tylenol prn check BCxs wound to be addressed by Surgery (4) Neurogenic claudication due to lumbar spinal stenosis: As mentioned Dr. Rodrigues performed T12 L4 decompression fusion for the symptoms failing outpatient conservative management -avoid IV dilaudid -low dose oxycodone is tolerated today and would not go up on dose -bowel regimen -check CBC in AM-hgb down 2 grams from preop, transfuse as needed (5) Type 2 DM with CKD stage 3 and hypertension: ADA diet Pharmacy managing basal and bolus insulin accuchecks (6) Severe obstructive sleep apnea: CPAP 14 cm H2O as above (7) GERD (gastroesophageal reflux disease): cont PPI (8) Hypertension: High bP today as did not get her hs Toprol last night due to being obtunded -give Toprol XL early today follow (9) Anxiety and depression: Typically takes escitalopram 20 mg daily quite anxious here avoid lorazepam (10) Left pontine stroke: h/o such in 2019 holding Plavix for surgery, restart when ok with Ortho continue statin (11) Chronic pulmonary aspiration: as noted above, caution with diet-she eats soft foods only (12) Neuropathy: continue gabapentin from home (13) CKD (chronic kidney disease): CKD stage 3 -Avoid nephrotoxins -renally dose meds when appropriate -follow BMP (14) Morbid obesity: BMI 42.4 kg/m2 needs weight loss counseling (15) Microcytic anemia: hgb 11 preop and some acute blood loss anemia down to hgb 9.2 today microcytic Fe studies with Fe deficiency here trans sat 11%, ferritin 40 -start FeSO4 at discharge once bowel routine established to avoid constipation follow CBC and transfuse if hgb<8 (16) DVT prophylaxis: SCDs Dispo-continued stay on PCU Admission and Anticipated Discharge Date Admission Date: November 27, 2019 Subjective Had overnight profound hypoxia after receiving IV dilaudid. Has known severe CAMRON. Was placed on BiPAP overnight. When I saw her she had just been weaned off BiPAP to NC. She was having quite a bit of back pain and requesting something for pain. However, she was paranoid that we would try to give her a placebo pill. SHe told me "I believe you, but I don't believe her" while pointing to the nurse. She was able to answer my questions clearly otherwise. When I told her about her overnight hypoxia, she became tearful and said "don't scare me!" She also then showed me her right wrist purple wristband that said "DNR" and said that s he definitely did not want any resuscitation and that when it's her time to go be with the Lord, to let her go. Does not want intubation. Denies nausea or vomiting, no chest pain or SOB. She was later OOB to chair for several hours during the day Had a fever later in the evening. Tele with [facility] Review of Systems Review of Systems: All systems reviewed & are unremarkable except as noted in HPI & below Physical Exam Constitutional: WD/WN, vitals as above + morbidly obese Eyes: PERRL, conjunctivae normal, anicteric sclerae EOM intact bilaterally (but with right eye exotropia) ENMT: external ear and nose normal, oropharynx normal Neck: trachea midline, no thyromegaly Respiratory: normal respiratory effort, lungs clear to auscultation Cardiovascular: RRR, no murmur, no edema Chest (Breasts): Chest: normal inspection of chest Gastrointestinal (Abdomen): normal bowel sounds, soft, nontender, no hepatosplenomegaly Musculoskeletal: Extremities: extremities normal to inspection; no cyanosis and no clubbing Skin: no rashes, warm and dry Neurologic: moves all extremities and awake; no focal motor deficits Psychiatric: Orientation: alert, oriented to person, oriented to place and cooperative Eye Contact: good eye contact Speech: normal rate/rhythm/volume of speech Affect: + anxious affect Mood: + anxious mood Lymphatic: no lymphedema Results & Data Results & Data ([facility]) Vital Signs (Past 12 Hours) Vital Signs Temp Pulse Pulse Pulse Resp BP Pulse Ox 11/28/19 10:58 37.5 C 80 19 174/73 H 100 11/28/19 07:10 37.5 C 87 19 164/68 H 100 11/28/19 04:00 37.3 C 91 H 20 159/80 H 91 11/28/19 03:23 92 H 22 93 11/28/19 01:19 87 17 92 Laboratory Results 11/28/19 11/28/19 11/28/19 Range/Units 20:33 16:20 11:00 WBC (4.8-10.8) K/uL RBC (4.2-5.4) M/uL Hgb (12.0-16.0) g/dL Hct (37-47) % MCV (80-100) fL MCH (25-34) pg MCHC (32-36) g/dL RDW Std Deviation (36.4-46.3) fL RDW Coeff of Tim (11.5-14.5) % Plt Count (130-400) K/uL MPV (7.4-10.4) fL Immature Gran % (Auto) % Neut % (Auto) % Lymph % (Auto) % Bailey % (Auto) % Eos % (Auto) % Baso % (Auto) % Neut # (Auto) (1.4-6.5) K/uL Lymph # (Auto) (1.2-3.4) K/uL Bailey # (Auto) (0.11-0.59) K/uL Eos # (Auto) (0-0.5) K/uL Baso # (Auto) (0-0.2) K/uL Immature Gran # (Auto) (0.00-0.02) K/uL Sodium (136-145) mmol/L Potassium (3.5-5.1) mmol/L Chloride (98-107) mmol/L Carbon Dioxide (21-32) mmol/L Anion Gap (3-11) BUN (7-18) mg/dl Creatinine (0.6-1.2) mg/dl Est Cr Clr Drug Dosing ml/min Est GFR ( Amer) Est GFR (Non-Af Amer) BUN/Creatinine Ratio (10-20) Glucose (70-99) mg/dl POC Glucose 161 H 184 H 180 H (70-99) mg/dl Calcium (8.5-10.1) mg/dl Iron (35-150) mcg/dl TIBC (250-450) mcg/dl Transferrin (200-360) mg/dl Transferrin % Sat (15-50) % Ferritin (8-388) ng/ml 11/28/19 11/28/19 11/28/19 Range/Units 07:39 06:23 06:23 WBC (4.8-10.8) K/uL RBC (4.2-5.4) M/uL Hgb (12.0-16.0) g/dL Hct (37-47) % MCV (80-100) fL MCH (25-34) pg MCHC (32-36) g/dL RDW Std Deviation (36.4-46.3) fL RDW Coeff of Tim (11.5-14.5) % Plt Count (130-400) K/uL MPV (7.4-10.4) fL Immature Gran % (Auto) % Neut % (Auto) % Lymph % (Auto) % Bailey % (Auto) % Eos % (Auto) % Baso % (Auto) % Neut # (Auto) (1.4-6.5) K/uL Lymph # (Auto) (1.2-3.4) K/uL Bailey # (Auto) (0.11-0.59) K/uL Eos # (Auto) (0-0.5) K/uL Baso # (Auto) (0-0.2) K/uL Immature Gran # (Auto) (0.00-0.02) K/uL Sodium 141 (136-145) mmol/L Potassium 4.4 (3.5-5.1) mmol/L Chloride 108 H (98-107) mmol/L Carbon Dioxide 28 (21-32) mmol/L Anion Gap 5.0 (3-11) BUN 22 H (7-18) mg/dl Creatinine 1.05 (0.6-1.2) mg/dl Est Cr Clr Drug Dosing 47.6 ml/min Est GFR ( Amer) 58.5 Est GFR (Non-Af Amer) 50.5 BUN/Creatinine Ratio 20.7 H (10-20) Glucose 175 H (70-99) mg/dl POC Glucose 176 H (70-99) mg/dl Calcium 7.8 L (8.5-10.1) mg/dl Iron 33 L (35-150) mcg/dl TIBC 260 (250-450) mcg/dl Transferrin 210 (200-360) mg/dl Transferrin % Sat 11 L (15-50) % Ferritin 40.1 (8-388) ng/ml 11/28/19 11/28/19 11/28/19 Range/Units 06:23 04:10 01:15 WBC 6.19 (4.8-10.8) K/uL RBC 4.08 L (4.2-5.4) M/uL Hgb 9.2 L (12.0-16.0) g/dL Hct 31.0 L (37-47) % MCV 76.0 L (80-100) fL MCH 22.5 L (25-34) pg MCHC 29.7 L (32-36) g/dL RDW Std Deviation 43.4 (36.4-46.3) fL RDW Coeff of Tim 15.6 H (11.5-14.5) % Plt Count 113 L (130-400) K/uL MPV 8.9 (7.4-10.4) fL Immature Gran % (Auto) 0.2 % Neut % (Auto) 80.3 % Lymph % (Auto) 8.9 % Bailey % (Auto) 10.2 % Eos % (Auto) 0.2 % Baso % (Auto) 0.2 % Neut # (Auto) 4.98 (1.4-6.5) K/uL Lymph # (Auto) 0.55 L (1.2-3.4) K/uL Bailey # (Auto) 0.63 H (0.11-0.59) K/uL Eos # (Auto) 0.01 (0-0.5) K/uL Baso # (Auto) 0.01 (0-0.2) K/uL Immature Gran # (Auto) 0.01 (0.00-0.02) K/uL Sodium (136-145) mmol/L Potassium (3.5-5.1) mmol/L Chloride (98-107) mmol/L Carbon Dioxide (21-32) mmol/L Anion Gap (3-11) BUN (7-18) mg/dl Creatinine (0.6-1.2) mg/dl Est Cr Clr Drug Dosing ml/min Est GFR ( Amer) Est GFR (Non-Af Amer) BUN/Creatinine Ratio (10-20) Glucose (70-99) mg/dl POC Glucose 174 H 170 H (70-99) mg/dl Calcium (8.5-10.1) mg/dl Iron (35-150) mcg/dl TIBC (250-450) mcg/dl Transferrin (200-360) mg/dl Transferrin % Sat (15-50) % Ferritin (8-388) ng/ml Diagnostic Findings CXR reviewed: XR chest 1V portable HISTORY: hypoxia COMPARISON: Chest 11/13/2019. FINDINGS: A few small linear density within the left lung base, unchanged. This favors scarring or atelectasis. The lungs are otherwise clear. The heart is no rmal in size. No pleural effusions. No pneumothorax. Thoracolumbar spinal fusion hardware is noted. IMPRESSION: No acute process. PG Care Time/CCT Total # of Minutes Spent Total Time Spent with Patient: Total time spent is greater than 50% in coordination of care (as documented) at patient's floor/unit and/or counseling patient: Coding Level of Care Code 23475 Subseq Hosp Care Lvl 3 Diagnoses Acute respiratory failure with hypoxia J96.01 Acute metabolic encephalopathy G93.41 Fever R50.9 Neurogenic claudication due to lumbar spinal stenosis M48.062 Type 2 DM with CKD stage 3 and hypertension E11.22; I12.9; N18.3 Severe obstructive sleep apnea G47.33 GERD (gastroesophageal reflux disease) K21.9 Hypertension I10 Hypertension type: unspecified Anxiety and depression F41.9; F32.9 Left pontine stroke I63.50 Chronic pulmonary aspiration T17.908A Neuropathy G62.9 CKD (chronic kidney disease) N18.9 Chronic kidney disease stage: unspecified stage Morbid obesity E66.01 Microcytic anemia D50.9 DVT prophylaxis Z29.9 (1) Hypertension Hypertension type: unspecified Qualified Code(s): I10 - Essential (primary) hypertension (2) CKD (chronic kidney disease) Chronic kidney disease stage: unspecified stage Qualified Code(s): N18.9 - Chronic kidney disease, unspecified
[2019-11-28] MEDS ORDERED: [UNRECOGNIZED DRUG - OTHER] PO SCH (12:00)
[2019-11-28] MEDS ORDERED: DOCUSATE SODIUM PO SCH (12:00)
--- NOTE | 2019-11-28 12:14 | Orthopedic Progress Note ---
Date of Service November 28, 2019 Assessment & Plan (1) Neurogenic claudication due to lumbar spinal stenosis: Admission and Anticipated Discharge Date Admission Date: November 27, 2019 This time we will hope to initiate physical therapy at least bed to chair transf ers and ambulation as tolerated. We must be very cautious with pain medications as she is quite sensitive. Ultimately she would require a residential facility upon discharge. Subjective Patient complaining mostly of back pain no leg pain. Physical Exam Physical Exam: Patient is in bed. She has good strength testing lower extremities. Results & Data ([facility]) Vital Signs (Past 12 Hours) Vital Signs Temp Pulse Pulse Pulse Resp BP Pulse Ox 11/28/19 10:58 37.5 C 80 19 174/73 H 100 11/28/19 07:10 37.5 C 87 19 164/68 H 100 11/28/19 04:00 37.3 C 91 H 20 159/80 H 91 11/28/19 03:23 92 H 22 93 11/28/19 01:19 87 17 92
--- NOTE | 2019-11-28 12:33 | Pharmacy Report ---
Pharmacy Glycemic Short Note 2 - Date of Service November 28, 2019 - Glycemic Short BSG Results (Last 24 hours): 11/27/19 11/27/19 11/27/19 14:16 16:33 20:55 Glucose POC Glucose 167 H 195 H 181 H 11/28/19 11/28/19 11/28/19 01:15 04:10 06:23 Glucose 175 H POC Glucose 170 H 174 H 11/28/19 11/28/19 07:39 11:00 Glucose POC Glucose 176 H 180 H OUTPATIENT ANTIDIABETIC REGIMEN (regimen confirmed with [facility]): * Lantus 34 units SC BID * Novolog 5 units SC w/ breakfast, 12 units w/ lunch, and 9 units w/ dinner * A1c = 7.6 % (09/23/19) ASSESSMENT: 11/27 * Type 2 diabetic admitted for neurogenic claudication failing conservative management. * POD #1 s/p lumbar decompression/fusion * BSGs acceptable over last 24 hrs, most of which 180s or less * No steroids admin go-op and none currently ordered * Patient's mental status leading to poor PO intake. Contacted by RN this AM given concerns for reduced PO intake and Clears Diet. Out-pt regimen reviewed and is "basal heavy", thus thus patient could be at risk for hypoglycemia in the setting of prolonged poor PO intake. Will redistribute total daily insulin dose (~94 units/day) as ~ 50% basal and ~50% bolus. Lantus dosing scale will be used as a precaution to lessen risk of hypoglycemia. PLAN FOR INPATIENT GLYCEMIC CONTROL: * Basal insulin * Lantus SQ BID per scale: * 0 units if BSG less than 110 * 25 units if BSG 110-180 * 30 units if BSG above 180 * Bolus insulin * NovoLog per scale ACHS or Q6hrs while NPO * Goal Range: Low 110 mg/dL - High 140 mg/dL * Correction Factor: 18 mg/dL/unit * Nutritional / Prandial insulin per carb ratio of 1 unit per 6 grams CHO consumed PLAN FOR DISCHARGE: * to be determined
[2019-11-28] MEDS: METOPROLOL SUCC 50MG EXT REL TAB PO SCH (16:40)
[2019-11-28] MEDS: DOCUSATE SODIUM/SENNA 50/8.6MG TAB PO SCH (20:34)
[2019-11-28] MEDS: INSULIN GLARGINE SOLOSTAR 100 UNITS/ML 3 ML PEN SC SCH (20:35)
[2019-11-28] MEDS: ESCITALOPRAM OXALATE 20 MG TAB PO SCH (20:35)
[2019-11-29] MEDS: POLYETHYLENE (MIRALAX) 17 GM PACK PO SCH ×5 (00:51→23:57)
[2019-11-29] MEDS: OXYCODONE HCL IR 5 MG TAB (IMMEDIATE RELEASE) PO PRN ×2 (06:17→12:22)
[2019-11-29 06:35] LABS: Appearance Urine Clear (Clear); Bilirubin Urine Negative (Negative); Blood Urine Negative (Negative); Color Urine Yellow; Glucose Urine UA Negative (Negative); Ketones Urine Trace (Negative); Leukocyte Esterase Urine Negative (Negative); Nitrite Urine Negative (Negative); Protein Urine Negative (Negative); Urobilinogen Urine Negative (Negative)
[2019-11-29 07:27] LABS: Hematocrit (blood only) 28.5 % (37-47); Hemoglobin 8.7 g/dL (12.0-16.0); Mean Corpuscular Hemoglobin 22.9 pg (25-34); Mean Corpuscular Hgb Conc 30.5 g/dL (32-36); RDW Coefficient of Variation 15.7 % (11.5-14.5); RDW Standard Deviation 42.5 fL (36.4-46.3); White Blood Count 7.24 K/uL (4.8-10.8)
[2019-11-29 07:53] LABS: Albumin Level 2.5 gm/dl (3.4-5.0); BUN Creatinine Ratio 18.4 (10-20); Calcium 8.5 mg/dl (8.5-10.1); Creatinine Clr Calc Pharmacy 52.9 ml/min
[2019-11-29 07:56] LABS: Albumin Globulin Ratio 0.6 (0.9-2); Bilirubin,Total 1.4 mg/dl (0.2-1); Total Protein 6.5 gm/dl (6.4-8.2)
[2019-11-29 08:14] LABS: Platelet Count 90 K/uL (130-400)
[2019-11-29 08:17] LABS: Basophils # (auto) 0.01 K/uL (0-0.2); Basophils % (auto) 0.1 %; Eosinophils # (auto) 0.06 K/uL (0-0.5); Eosinophils % (auto) 0.8 %; Immature Granulocytes # (auto) 0.02 K/uL (0.00-0.02); Immature Granulocytes % (auto) 0.3 %; Lymphocytes # (auto) 0.81 K/uL (1.2-3.4); Lymphocytes % (auto) 11.2 %; Monocytes # (auto) 0.65 K/uL (0.11-0.59); Neutrophils # (auto) 5.69 K/uL (1.4-6.5); Neutrophils % (auto) 78.6 %; Platelet Estimate Decreased (Normal)
[2019-11-29] MEDS: INSULIN ASPART 100 UNITS/ML 3 ML PEN SQ SCH ×4 (08:34→21:04)
[2019-11-29] MEDS: INSULIN GLARGINE SOLOSTAR 100 UNITS/ML 3 ML PEN SC SCH ×2 (08:35→21:02)
[2019-11-29] MEDS: PANTOprazole 40 MG TAB PO SCH ×2 (08:38→21:00)
[2019-11-29] MEDS: CEROVITE ADV FORMULA TAB PO SCH ×2 (08:38→21:02)
[2019-11-29] MEDS: CHOLECALCIFEROL 1,000 UNITS 25 MCG TAB PO SCH (08:38)
[2019-11-29] MEDS: GABAPENTIN 600 MG TAB PO SCH ×2 (08:40→21:01)
--- NOTE | 2019-11-29 09:52 | Orthopedic Progress Note ---
Date of Service November 29, 2019 Assessment & Plan (1) Neurogenic claudication due to lumbar spinal stenosis: Admission and Anticipated Discharge Date Admission Date: November 27, 2019 This time the patient is progressing appropriately. We will continue with physi kala therapy occupational therapy as tolerated hopefully discharge to rehab early next week. Subjective Patient's back pain is improved today. She denies any leg pain. Physical Exam Physical Exam: Patient is in the chair at the bedside. She has good strength testing. Appears comfortable. Results & Data ([facility]) Vital Signs (Past 12 Hours) Vital Signs Temp Pulse Resp BP Pulse Ox 11/29/19 06:56 37.4 C 80 20 166/72 H 94 11/29/19 04:00 37.4 C 75 19 176/73 H 97 11/29/19 00:00 36.7 C 72 18 152/68 H 95
[2019-11-29] MEDS ORDERED: SODIUM CHLORIDE 0.9% 1000ML 1,000 ML IV SCH (14:00)
--- NOTE | 2019-11-29 15:35 | Hospitalist Progress Note ---
Date of Service November 29, 2019 Assessment & Plan (1) Acute respiratory failure with hypoxia: Pt had acute resp failure with hypoxia overnight after receiving IV dilaudid and had POx 60%, difficult to wake up. She was placed on BiPAP overnight and and still some hypoxia but maintaining good pulse ox on 2 L nasal cannula Has a h/o chronic suspected aspiration, has chronic productive cough CT Chest on 11/24 performed preoperatively for abnormal CXR does show a RML possible inflammatory opacity-no f/u on this from what I can tell and as per the daughter Repeat chest x-ray on 11/27 is clear -did have low grade fever on POD #1 but could also be from atelectasis -continue supplemental O2 to keep POx> 90%, has a h/o hypercapnia as well so would not give too much O2 -continue CPAP at nighttime at 14 cm H2O is her home dose although compliance is poor as per notes from Pulm -discontinued all sedating meds including IV dilaudid and ativan, hydroxyzine and benadryl -can give very low dose oxycodone for pain with caution-tolerating this fairly well without respiratory depression -follows with Pulm Dr. Carreon -of note, did receive 3 doses of IV clindamycin for surgery periop prophylaxis but would also cover for asp PNA if present -no abx at this time unless continues to spike fevers or have symptoms of PNA CXR here with NAD (2) Acute metabolic encephalopathy: With mild confusion after having hypoxia overnight and with taking oxycodone but improved today Observe for improvement with treatment of resp failure as above, avoidance of excessive sedation With fever, checked UA which was negative and CXR as above clear No further fevers today (3) Fever: could be atelectasis UA normal and CXR clear as above, wound good as per Surgery Do not suspect DVT hypoxia seemed directly related to receiving IV dilaudid high dose and not having BiPAP/CPAP in place, do not suspect PE CXR as above no PNA but did have abnl RML on Chest CT follow give tylenol prn check BCxs- NGTD (4) Neurogenic claudication due to lumbar spinal stenosis: As mentioned Dr. Rodrigues performed T12 L4 decompression fusion for the symptoms failing outpatient conservative management -avoid IV dilaudid -low dose oxycodone is tolerated today and would not go up on dose -bowel regimen (5) Type 2 DM with CKD stage 3 and hypertension: ADA diet Pharmacy managing basal and bolus insulin accuchecks (6) Severe obstructive sleep apnea: CPAP 14 cm H2O as above (7) GERD (gastroesophageal reflux disease): cont PPI (8) Hypertension: BPs acceptable continue Toprol (9) Anxiety and depression: Typically takes escitalopram 20 mg daily quite anxious here but is improved today avoid lorazepam (10) Left pontine stroke: h/o such in 2019 holding Plavix for surgery, restart when ok with Ortho continue statin (11) Chronic pulmonary aspiration: as noted above, caution with diet-she eats soft foods only (12) Neuropathy: continue gabapentin from home (13) CKD (chronic kidney disease): CKD stage 3 -Avoid nephrotoxins -renally dose meds when appropriate -follow BMP (14) Morbid obesity: BMI 42.4 kg/m2 needs weight loss counseling (15) Microcytic anemia: hgb 11 preop and some acute blood loss anemia down to hgb 8.7 today microcytic Fe studies with Fe deficiency here trans sat 11%, ferritin 40 -start FeSO4 at discharge once bowel routine established to avoid constipation follow CBC and transfuse if hgb<8 (16) DVT prophylaxis: SCDs Dispo-stable for transfer down to medical surgical floor Admission and Anticipated Discharge Date Admission Date: November 27, 2019 Subjective Patient feeling better today. She was out of bed and ambulating around the room as per her daughter and was more energetic. She is currently drowsy as she received another oxycodone for back pain. Reports her back pain is improved. No leg pain. Denies chest pain or shortness of breath. Is weaned down to 2 L nasal cannula. Did not make much urine and had to be straight cathed overnight for 500 mL's and again this afternoon for 250 mL's Is not eating and drinking that much. Telemetry with normal sinus rhythm rates in the 80s to 90s No further fevers overnight Denies cough, no urinary symptoms. She does not have an incentive spirometer in the room-discussed this with nursing Review of Systems Review of Systems: All systems reviewed & are unremarkable except as noted in HPI & below Physical Exam Constitutional: WD/WN, vitals as above + morbidly obese Eyes: EOM intact bilaterally (but with right eye exotropia) Neck: trachea midline, no thyromegaly Respiratory: + abnormal respiratory effort (Does not take big deep breaths) and no labored breathing Auscultation: lungs clear to auscultation bilaterally Cardiovascular: Rate/Rhythm: regular rate and regular rhythm Heart Sounds: no murmur Extremities: + edema (Left hand with mild edema, right upper extremity with mild lymphedema, trace edema in the lower extremities bilaterally) Chest (Breasts): Chest: normal inspection of chest Gastrointestinal (Abdomen): normal bowel sounds, soft, nontender, no hepatosplenomegaly Musculoskeletal: Extremities: extremities normal to inspection; no cyanosis and no clubbing Skin: no rashes, warm and dry Neurologic: moves all extremities and awake; no focal motor deficits Psychiatric: Orientation: alert, oriented to person, oriented to place and cooperative Speech: normal rate/rhythm/volume of speech Lymphatic: no lymphedema Results & Data Results & Data ([facility]) Vital Signs (Past 12 Hours) Vital Signs Temp Pulse Pulse Resp BP Pulse Ox 11/29/19 11:38 37.2 C 80 20 156/59 H 99 11/29/19 06:56 37.4 C 80 20 166/72 H 94 11/29/19 04:00 37.4 C 75 19 176/73 H 97 Laboratory Results 11/29/19 11/29/19 11/29/19 Range/Units 16:32 11:40 07:33 WBC (4.8-10.8) K/uL RBC (4.2-5.4) M/uL Hgb (12.0-16.0) g/dL Hct (37-47) % MCV (80-100) fL MCH (25-34) pg MCHC (32-36) g/dL RDW Std Deviation (36.4-46.3) fL RDW Coeff of Tim (11.5-14.5) % Plt Count (130-400) K/uL MPV (7.4-10.4) fL Immature Gran % (Auto) % Neut % (Auto) % Lymph % (Auto) % [place] % (Auto) % Eos % (Auto) % Baso % (Auto) % Neut # (Auto) (1.4-6.5) K/uL Lymph # (Auto) (1.2-3.4) K/uL [place] # (Auto) (0.11-0.59) K/uL Eos # (Auto) (0-0.5) K/uL Baso # (Auto) (0-0.2) K/uL Immature Gran # (Auto) (0.00-0.02) K/uL Platelet Estimate (Normal) Sodium (136-145) mmol/L Potassium (3.5-5.1) mmol/L Chloride (98-107) mmol/L Carbon Dioxide (21-32) mmol/L Anion Gap (3-11) BUN (7-18) mg/dl Creatinine (0.6-1.2) mg/dl Est Cr Clr Drug Dosing ml/min Est GFR ( Amer) Est GFR (Non-Af Amer) BUN/Creatinine Ratio (10-20) Glucose (70-99) mg/dl POC Glucose 172 H 173 H 204 H (70-99) mg/dl Calcium (8.5-10.1) mg/dl Total Bilirubin (0.2-1) mg/dl AST (15-37) U/L ALT (12-78) U/L Alkaline Phosphatase (45-117) U/L Total Protein (6.4-8.2) gm/dl Albumin (3.4-5.0) gm/dl Globulin (2.5-4.0) gm/dl Albumin/Globulin Ratio (0.9-2) Urine Color Urine Appearance (Clear) Urine pH (4.5-7.5) Ur Specific [place] (1.000-1.030) Urine Protein (Negative) Urine Glucose (UA) (Negative) Urine Ketones (Negative) Urine Blood (Negative) Urine Nitrite (Negative) Urine Bilirubin (Negative) Urine Urobilinogen (Negative) Ur Leukocyte Esterase (Negative) 11/29/19 11/29/19 11/29/19 Range/Units 07:04 07:04 06:20 WBC 7.24 (4.8-10.8) K/uL RBC 3.80 L (4.2-5.4) M/uL Hgb 8.7 L (12.0-16.0) g/dL Hct 28.5 L (37-47) % MCV 75.0 L (80-100) fL MCH 22.9 L (25-34) pg MCHC 30.5 L (32-36) g/dL RDW Std Deviation 42.5 (36.4-46.3) fL RDW Coeff of Tim 15.7 H (11.5-14.5) % Plt Count 90 L (130-400) K/uL MPV 9.0 (7.4-10.4) fL Immature Gran % (Auto) 0.3 % Neut % (Auto) 78.6 % Lymph % (Auto) 11.2 % [place] % (Auto) 9.0 % Eos % (Auto) 0.8 % Baso % (Auto) 0.1 % Neut # (Auto) 5.69 (1.4-6.5) K/uL Lymph # (Auto) 0.81 L (1.2-3.4) K/uL [place] # (Auto) 0.65 H (0.11-0.59) K/uL Eos # (Auto) 0.06 (0-0.5) K/uL Baso # (Auto) 0.01 (0-0.2) K/uL Immature Gran # (Auto) 0.02 (0.00-0.02) K/uL Platelet Estimate Decreased L (Normal) Sodium 140 (136-145) mmol/L Potassium 4.0 (3.5-5.1) mmol/L Chloride 105 (98-107) mmol/L Carbon Dioxide 30 (21-32) mmol/L Anion Gap 5.0 (3-11) BUN 18 (7-18) mg/dl Creatinine 0.95 (0.6-1.2) mg/dl Est Cr Clr Drug Dosing 52.9 ml/min Est GFR ( Amer) 66.0 Est GFR (Non-Af Amer) 57.0 BUN/Creatinine Ratio 18.4 (10-20) Glucose 188 H (70-99) mg/dl POC Glucose (70-99) mg/dl Calcium 8.5 (8.5-10.1) mg/dl Total Bilirubin 1.4 H (0.2-1) mg/dl AST 35 (15-37) U/L ALT 22 (12-78) U/L Alkaline Phosphatase 52 (45-117) U/L Total Protein 6.5 (6.4-8.2) gm/dl Albumin 2.5 L (3.4-5.0) gm/dl Globulin 4.0 (2.5-4.0) gm/dl Albumin/Globulin Ratio 0.6 L (0.9-2) Urine Color Yellow Urine Appearance Clear (Clear) Urine pH 5.0 (4.5-7.5) Ur Specific [place] 1.020 (1.000-1.030) Urine Protein Negative (Negative) Urine Glucose (UA) Negative (Negative) Urine Ketones Trace H (Negative) Urine Blood Negative (Negative) Urine Nitrite Negative (Negative) Urine Bilirubin Negative (Negative) Urine Urobilinogen Negative (Negative) Ur Leukocyte Esterase Negative (Negative) 11/28/19 Range/Units 20:33 WBC (4.8-10.8) K/uL RBC (4.2-5.4) M/uL Hgb (12.0-16.0) g/dL Hct (37-47) % MCV (80-100) fL MCH (25-34) pg MCHC (32-36) g/dL RDW Std Deviation (36.4-46.3) fL RDW Coeff of Tim (11.5-14.5) % Plt Count (130-400) K/uL MPV (7.4-10.4) fL Immature Gran % (Auto) % Neut % (Auto) % Lymph % (Auto) % [place] % (Auto) % Eos % (Auto) % Baso % (Auto) % Neut # (Auto) (1.4-6.5) K/uL Lymph # (Auto) (1.2-3.4) K/uL [place] # (Auto) (0.11-0.59) K/uL Eos # (Auto) (0-0.5) K/uL Baso # (Auto) (0-0.2) K/uL Immature Gran # (Auto) (0.00-0.02) K/uL Platelet Estimate (Normal) Sodium (136-145) mmol/L Potassium (3.5-5.1) mmol/L Chloride (98-107) mmol/L Carbon Dioxide (21-32) mmol/L Anion Gap (3-11) BUN (7-18) mg/dl Creatinine (0.6-1.2) mg/dl Est Cr Clr Drug Dosing ml/min Est GFR ( Amer) Est GFR (Non-Af Amer) BUN/Creatinine Ratio (10-20) Glucose (70-99) mg/dl POC Glucose 161 H (70-99) mg/dl Calcium (8.5-10.1) mg/dl Total Bilirubin (0.2-1) mg/dl AST (15-37) U/L ALT (12-78) U/L Alkaline Phosphatase (45-117) U/L Total Protein (6.4-8.2) gm/dl Albumin (3.4-5.0) gm/dl Globulin (2.5-4.0) gm/dl Albumin/Globulin Ratio (0.9-2) Urine Color Urine Appearance (Clear) Urine pH (4.5-7.5) Ur Specific [place] (1.000-1.030) Urine Protein (Negative) Urine Glucose (UA) (Negative) Urine Ketones (Negative) Urine Blood (Negative) Urine Nitrite (Negative) Urine Bilirubin (Negative) Urine Urobilinogen (Negative) Ur Leukocyte Esterase (Negative) PG Care Time/CCT Total # of Minutes Spent Total Time Spent with Patient: Total time spent is greater than 50% in coordination of care (as documented) at patient's floor/unit and/or counseling patient: Coding Level of Care Code 15371 Subseq Hosp Care Lvl 3 Diagnoses Acute respiratory failure with hypoxia J96.01 Acute metabolic encephalopathy G93.41 Fever R50.9 Neurogenic claudication due to lumbar spinal stenosis M48.062 Type 2 DM with CKD stage 3 and hypertension E11.22; I12.9; N18.3 Severe obstructive sleep apnea G47.33 GERD (gastroesophageal reflux disease) K21.9 Hypertension I10 Hypertension type: unspecified Anxiety and depression F41.9; F32.9 Left pontine stroke I63.50 Chronic pulmonary aspiration T17.908A Neuropathy G62.9 CKD (chronic kidney disease) N18.9 Chronic kidney disease stage: unspecified stage Morbid obesity E66.01 Microcytic anemia D50.9 DVT prophylaxis Z29.9 (1) CKD (chronic kidney disease) Chronic kidney disease stage: unspecified stage Qualified Code(s): N18.9 - Chronic kidney disease, unspecified (2) Hypertension Hypertension type: unspecified Qualified Code(s): I10 - Essential (primary) hypertension
[2019-11-29] MEDS ORDERED: ALBUTEROL 0.083% NEBU SOLN 3 ML VIAL INH PRN (17:36)
[2019-11-29] MEDS: ACETAMINOPHEN 500 MG TAB PO PRN (20:51)
[2019-11-29] MEDS: DOCUSATE SODIUM 100 MG CAP PO SCH (21:00)
[2019-11-29] MEDS ORDERED: NON-FORMULARY MEDICATION (Biotin 5,000 MCG) PO SCH (21:00)
[2019-11-29] MEDS: METOPROLOL SUCC 50MG EXT REL TAB PO SCH (21:01)
[2019-11-29] MEDS: ESCITALOPRAM OXALATE 20 MG TAB PO SCH (21:01)
[2019-11-29] MEDS: DOCUSATE SODIUM/SENNA 50/8.6MG TAB PO SCH (21:02)
[2019-11-30] MEDS: OXYCODONE HCL IR 5 MG TAB (IMMEDIATE RELEASE) PO PRN ×2 (00:15→12:31)
[2019-11-30] MEDS: ACETAMINOPHEN 500 MG TAB PO PRN (05:59)
[2019-11-30] MEDS: POLYETHYLENE (MIRALAX) 17 GM PACK PO SCH ×4 (05:59→23:48)
[2019-11-30 06:43] LABS: BUN Creatinine Ratio 19.5 (10-20); Calcium 8.7 mg/dl (8.5-10.1); Creatinine Clr Calc Pharmacy 57.7 ml/min; Est GFR (African American) 73.4; Est GFR (Non-African American) 63.4; Potassium 3.8 mmol/L (3.5-5.1)
[2019-11-30 06:49] LABS: Basophils # (auto) 0.01 K/uL (0-0.2); Basophils % (auto) 0.2 %; Eosinophils % (auto) 1.8 %; Hematocrit (blood only) 27.6 % (37-47); Hemoglobin 8.3 g/dL (12.0-16.0); Immature Granulocytes # (auto) 0.02 K/uL (0.00-0.02); Immature Granulocytes % (auto) 0.4 %; Lymphocytes # (auto) 0.96 K/uL (1.2-3.4); Lymphocytes % (auto) 17.6 %; Mean Corpuscular Hemoglobin 22.9 pg (25-34); Mean Corpuscular Hgb Conc 30.1 g/dL (32-36); Mean Corpuscular Volume 76.2 fL (80-100); Monocytes # (auto) 0.45 K/uL (0.11-0.59); Monocytes % (auto) 8.2 %; Neutrophils # (auto) 3.93 K/uL (1.4-6.5); Neutrophils % (auto) 71.8 %; Platelet Count 111 K/uL (130-400); RDW Coefficient of Variation 15.5 % (11.5-14.5); RDW Standard Deviation 43.8 fL (36.4-46.3); Red Blood Count 3.62 M/uL (4.2-5.4); White Blood Count 5.47 K/uL (4.8-10.8)
--- NOTE | 2019-11-30 08:17 | Orthopedic Progress Note ---
Date of Service November 30, 2019 Assessment & Plan (1) Neurogenic claudication due to lumbar spinal stenosis: We will continue with GI DVT prophylaxis and physical therapy. The plan is to have her go to rehab hopefully tomorrow. Admission and Anticipated Discharge Date Admission Date: November 27, 2019 Subjective Patient's back pain is improved today. She denies any leg pain. Physical Exam Physical Exam: Patient is alert and oriented. Her dressing is clean dry and intact her abdomen soft nontender calves are supple nontender. Results & Data ([facility]) Vital Signs (Past 12 Hours) Vital Signs Temp Pulse Resp BP Pulse Ox 11/30/19 07:19 37.2 C 76 16 132/71 97 11/29/19 22:57 37.0 C 83 18 128/76 97 11/29/19 20:54 37 C 88 16 115/69 98
[2019-11-30] MEDS: PANTOprazole 40 MG TAB PO SCH ×2 (09:15→20:32)
[2019-11-30] MEDS: CHOLECALCIFEROL 1,000 UNITS 25 MCG TAB PO SCH (09:15)
[2019-11-30] MEDS: GABAPENTIN 600 MG TAB PO SCH ×2 (09:16→20:32)
[2019-11-30] MEDS: CEROVITE ADV FORMULA TAB PO SCH ×2 (09:16→22:09)
[2019-11-30] MEDS: PRAVASTATIN SOD 40 MG TAB PO SCH (09:16)
[2019-11-30] MEDS: INSULIN GLARGINE SOLOSTAR 100 UNITS/ML 3 ML PEN SC SCH ×2 (09:17→20:48)
[2019-11-30] MEDS: DOCUSATE SODIUM 100 MG CAP PO SCH ×2 (09:17→20:32)
[2019-11-30] MEDS: INSULIN ASPART 100 UNITS/ML 3 ML PEN SQ SCH ×4 (09:18→20:47)
--- NOTE | 2019-11-30 11:28 | Hospitalist Progress Note ---
Date of Service November 30, 2019 Assessment & Plan (1) Acute respiratory failure with hypoxia: Pt had acute resp failure with hypoxia overnight after receiving IV dilaudid and had POx 60%, difficult to wake up. She was placed on BiPAP overnight and and still some hypoxia but maintaining good pulse ox on 2 L nasal cannula Has a h/o chronic suspected aspiration, has chronic productive cough Much improved now, using CPAP at night-we will add on order to use CPAP with naps. CT Chest on 11/24 performed preoperatively for abnormal CXR does show a RML possible inflammatory opacity-no f/u on this from what I can tell and as per the daughter Repeat chest x-ray on 11/27 is clear -did have low grade fever on POD #1 but could also be from atelectasis, remains afebrile since then -continue supplemental O2 to keep POx> 90%, has a h/o hypercapnia as well so would not give too much O2 -continue CPAP at nighttime at 14 cm H2O is her home dose although compliance is poor as per notes from Pulm -discontinued all sedating meds including IV dilaudid and ativan, hydroxyzine and benadryl -can give very low dose oxycodone for pain with caution-tolerating this fairly well without respiratory depression -follows with Pulm Dr. Carreon -of note, did receive 3 doses of IV clindamycin for surgery periop prophylaxis but would also cover for asp PNA if present -no abx at this time unless continues to spike fevers or have symptoms of PNA CXR here with NAD (2) Acute metabolic encephalopathy: With mild confusion after having hypoxia overnight and with taking oxycodone but now resolved Observe for improvement with treatment of resp failure as above, avoidance of excessive sedation With fever, checked UA which was negative and CXR as above clear No further fevers (3) Fever: Likely was secondary to atelectasis UA normal and CXR clear as above, wound good as per Surgery Do not suspect DVT hypoxia seemed directly related to receiving IV dilaudid high dose and not having BiPAP/CPAP in place, do not suspect PE CXR as above no PNA but did have abnl RML on Chest CT follow give tylenol prn check BCxs- NGTD (4) Neurogenic claudication due to lumbar spinal stenosis: As mentioned Dr. Rodrigues performed T12 L4 decompression fusion for the symptoms failing outpatient conservative management -avoid IV dilaudid -low dose oxycodone is tolerated today and would not go up on dose -bowel regimen-had bowel movement today -Improving overall and orthopedic spine surgery plans on sending her to rehab on Sunday (5) Type 2 DM with CKD stage 3 and hypertension: ADA diet Pharmacy managing basal and bolus insulin accuchecks (6) Severe obstructive sleep apnea: CPAP 14 cm H2O as above Must use at bedtime and with all naps (7) GERD (gastroesophageal reflux disease): cont PPI (8) Hypertension: BPs acceptable continue Toprol (9) Anxiety and depression: Typically takes escitalopram 20 mg daily quite anxious here but is improved today avoid lorazepam due to severe obstructive sleep apnea (10) Left pontine stroke: h/o such in 2019 holding Plavix for surgery, restart when ok with Ortho-hopefully upon discharge continue statin (11) Chronic pulmonary aspiration: as noted above, caution with diet-she eats soft foods only -Must have head of bed at 30 degrees at all times (12) Neuropathy: continue gabapentin from home (13) CKD (chronic kidney disease): CKD stage 3, his renal function here is stable from previous -Avoid nephrotoxins -renally dose meds when appropriate Follow BMP occasionally at rehab (14) Morbid obesity: BMI 42.4 kg/m2 needs weight loss counseling (15) Microcytic anemia: hgb 11 preop and some acute blood loss anemia down to hgb 8.3 today microcytic Fe studies with Fe deficiency here trans sat 11%, ferritin 40 -start FeSO4 at discharge once bowel routine established to avoid constipation No need to follow CBC in the morning (16) DVT prophylaxis: SCDs Dispo-continued stay on medical/surgical floor, awaiting placement at [facility]-hopefully on Sunday if okay with orthopedic surgery Medical condition is much improved, however hospitalist service will continue to follow along given her multiple comorbidities Admission and Anticipated Discharge Date Admission Date: November 27, 2019 Subjective Feels well today, reports back pain is improved. She was napping when I came in but easily awoken answer questions. Seems less confused today. Denies chest pain or shortness of breath. No cough. No nausea or abdominal pain. Is eating. Was out of bed to chair for breakfast. Still does not have an incentive spirometer in her room. Review of Systems Review of Systems: All systems reviewed & are unremarkable except as noted in HPI & below Physical Exam Constitutional: WD/WN, vitals as above + morbidly obese Eyes: EOM intact bilaterally (but with right eye exotropia) ENMT: external ear and nose normal, oropharynx normal Neck: trachea midline, no thyromegaly Respiratory: normal respiratory effort, lungs clear to auscultation Cardiovascular: Rate/Rhythm: regular rate and regular rhythm Heart Sounds: no murmur Extremities: + edema (Left hand with mild edema, right upper extremity with mild lymphedema, trace edema in the lower extremities bilaterally) Chest (Breasts): Chest: normal inspection of chest Gastrointestinal (Abdomen): normal bowel sounds, soft, nontender, no hepatosplenomegaly Musculoskeletal: Extremities: extremities normal to inspection; no cyanosis and no clubbing Skin: no rashes, warm and dry Neurologic: moves all extremities and awake; no focal motor deficits Psychiatric: Orientation: alert, oriented to person, oriented to place and cooperative Eye Contact: good eye contact Speech: normal rate/rhythm/volume of speech Lymphatic: no lymphedema Results & Data Results & Data ([facility]) Vital Signs (Past 12 Hours) Vital Signs Temp Pulse Resp BP Pulse Ox 11/30/19 07:19 37.2 C 76 16 132/71 97 Laboratory Results 11/30/19 11/30/19 11/30/19 Range/Units 08:05 06:11 06:11 WBC 5.47 (4.8-10.8) K/uL RBC 3.62 L (4.2-5.4) M/uL Hgb 8.3 L (12.0-16.0) g/dL Hct 27.6 L (37-47) % MCV 76.2 L (80-100) fL MCH 22.9 L (25-34) pg MCHC 30.1 L (32-36) g/dL RDW Std Deviation 43.8 (36.4-46.3) fL RDW Coeff of Tim 15.5 H (11.5-14.5) % Plt Count 111 L (130-400) K/uL MPV 9.0 (7.4-10.4) fL Immature Gran % (Auto) 0.4 % Neut % (Auto) 71.8 % Lymph % (Auto) 17.6 % [place] % (Auto) 8.2 % Eos % (Auto) 1.8 % Baso % (Auto) 0.2 % Neut # (Auto) 3.93 (1.4-6.5) K/uL Lymph # (Auto) 0.96 L (1.2-3.4) K/uL [place] # (Auto) 0.45 (0.11-0.59) K/uL Eos # (Auto) 0.10 (0-0.5) K/uL Baso # (Auto) 0.01 (0-0.2) K/uL Immature Gran # (Auto) 0.02 (0.00-0.02) K/uL Sodium 140 (136-145) mmol/L Potassium 3.8 (3.5-5.1) mmol/L Chloride 105 (98-107) mmol/L Carbon Dioxide 31 (21-32) mmol/L Anion Gap 5.0 (3-11) BUN 17 (7-18) mg/dl Creatinine 0.87 (0.6-1.2) mg/dl Est Cr Clr Drug Dosing 57.7 ml/min Est GFR ( Amer) 73.4 Est GFR (Non-Af Amer) 63.4 BUN/Creatinine Ratio 19.5 (10-20) Glucose 131 H (70-99) mg/dl POC Glucose 141 H (70-99) mg/dl Calcium 8.7 (8.5-10.1) mg/dl Crossmatch 11/29/19 11/29/19 11/29/19 Range/Units 20:44 16:32 11:40 WBC (4.8-10.8) K/uL RBC (4.2-5.4) M/uL Hgb (12.0-16.0) g/dL Hct (37-47) % MCV (80-100) fL MCH (25-34) pg MCHC (32-36) g/dL RDW Std Deviation (36.4-46.3) fL RDW Coeff of Tim (11.5-14.5) % Plt Count (130-400) K/uL MPV (7.4-10.4) fL Immature Gran % (Auto) % Neut % (Auto) % Lymph % (Auto) % [place] % (Auto) % Eos % (Auto) % Baso % (Auto) % Neut # (Auto) (1.4-6.5) K/uL Lymph # (Auto) (1.2-3.4) K/uL [place] # (Auto) (0.11-0.59) K/uL Eos # (Auto) (0-0.5) K/uL Baso # (Auto) (0-0.2) K/uL Immature Gran # (Auto) (0.00-0.02) K/uL Sodium (136-145) mmol/L Potassium (3.5-5.1) mmol/L Chloride (98-107) mmol/L Carbon Dioxide (21-32) mmol/L Anion Gap (3-11) BUN (7-18) mg/dl Creatinine (0.6-1.2) mg/dl Est Cr Clr Drug Dosing ml/min Est GFR ( Amer) Est GFR (Non-Af Amer) BUN/Creatinine Ratio (10-20) Glucose (70-99) mg/dl POC Glucose 140 H 172 H 173 H (70-99) mg/dl Calcium (8.5-10.1) mg/dl Crossmatch 11/27/19 Range/Units 07:23 WBC (4.8-10.8) K/uL RBC (4.2-5.4) M/uL Hgb (12.0-16.0) g/dL Hct (37-47) % MCV (80-100) fL MCH (25-34) pg MCHC (32-36) g/dL RDW Std Deviation (36.4-46.3) fL RDW Coeff of Tim (11.5-14.5) % Plt Count (130-400) K/uL MPV (7.4-10.4) fL Immature Gran % (Auto) % Neut % (Auto) % Lymph % (Auto) % [place] % (Auto) % Eos % (Auto) % Baso % (Auto) % Neut # (Auto) (1.4-6.5) K/uL Lymph # (Auto) (1.2-3.4) K/uL [place] # (Auto) (0.11-0.59) K/uL Eos # (Auto) (0-0.5) K/uL Baso # (Auto) (0-0.2) K/uL Immature Gran # (Auto) (0.00-0.02) K/uL Sodium (136-145) mmol/L Potassium (3.5-5.1) mmol/L Chloride (98-107) mmol/L Carbon Dioxide (21-32) mmol/L Anion Gap (3-11) BUN (7-18) mg/dl Creatinine (0.6-1.2) mg/dl Est Cr Clr Drug Dosing ml/min Est GFR ( Amer) Est GFR (Non-Af Amer) BUN/Creatinine Ratio (10-20) Glucose (70-99) mg/dl POC Glucose (70-99) mg/dl Calcium (8.5-10.1) mg/dl Crossmatch See Detail PG Care Time/CCT Total # of Minutes Spent Total Time Spent with Patient: Total time spent is greater than 50% in coordination of care (as documented) at patient's floor/unit and/or counseling patient: Coding Level of Care Code 58498 Subseq Hosp Care Lvl 2 Diagnoses Acute respiratory failure with hypoxia J96.01 Acute metabolic encephalopathy G93.41 Fever R50.9 Neurogenic claudication due to lumbar spinal stenosis M48.062 Type 2 DM with CKD stage 3 and hypertension E11.22; I12.9; N18.3 Severe obstructive sleep apnea G47.33 GERD (gastroesophageal reflux disease) K21.9 Hypertension I10 Hypertension type: unspecified Anxiety and depression F41.9; F32.9 Left pontine stroke I63.50 Chronic pulmonary aspiration T17.908A Neuropathy G62.9 CKD (chronic kidney disease) N18.9 Chronic kidney disease stage: unspecified stage Morbid obesity E66.01 Microcytic anemia D50.9 DVT prophylaxis Z29.9 (1) Hypertension Hypertension type: unspecified Qualified Code(s): I10 - Essential (primary) hypertension (2) CKD (chronic kidney disease) Chronic kidney disease stage: unspecified stage Qualified Code(s): N18.9 - Chronic kidney disease, unspecified
[2019-11-30] MEDS ORDERED: VANCOMYCIN CONSULT ACTIVE PRN (14:50)
[2019-11-30] MEDS ORDERED: VANCOMYCIN HCL 2,250 MG in SODIUM CHLORIDE 0.9% 500 ML IV ONE (16:00)
--- NOTE | 2019-11-30 16:12 | Pharmacy Report ---
Pharmacy Abx Initial Consult - Date of Service November 30, 2019 - Pharmacy Dosing Scope Date of Consult: 11/30/19 Consultation requested by: Dr. Lam Pharmacy is consulted to initiate Vancomycin IV dosing therapy, order appropriate labs and adjust drug dose/frequency. - Subjective The patient is a 79 year old F admitted on 11/27/19 14:38. - Objective Height: 5 ft 1 in Weight: 102.6 kg Vital Signs (Past 12hrs): Vital Signs Temp Pulse Pulse Resp BP Pulse Ox 11/30/19 15:27 37.3 C 73 78 18 118/67 95 11/30/19 12:21 70 18 105/45 L 95 11/30/19 11:51 94 11/30/19 07:19 37.2 C 76 16 132/71 97 Lab Results (24hrs): Laboratory Tests (24 Hours) 11/30/19 11/30/19 06:11 06:11 WBC 5.47 Neut # (Auto) 3.93 Creatinine 0.87 Est Cr Clr Drug Dosing 57.7 Micro Results: 11/13/19 Unknown Urine Culture - Final Urine,Clean Catch Escherichia coli - Risk Factors for Resistance * Resident extended-care facility - Assessment & Plan Assessment 79 year old F who is POD #3 lumbar spinal fusion. Blood culture 1/2 grew Gram positive cocci. Patient with Penicillin allergy, reaction anaphylaxis. Started on Vancomycin. Plan Vancomycin IV * Estimated PK Parameters: Vd 0.7 L/kg, Geovanny 0.046 hr-1, t1/2 15 hr * Loading dose: 2250 mg (21.9 mg/kg) IV x 1 dose now. * Maintenance dose: 1500 mg IV (14 mg/kg) every 18 hours * Goal trough level for bacteremia: 15 to 20 mcg/ml. Pharmacy will continue to follow and will adjust dose/frequency as necessary. Thank you.
[2019-11-30] MEDS: ESCITALOPRAM OXALATE 20 MG TAB PO SCH (20:32)
[2019-11-30] MEDS: METOPROLOL SUCC 50MG EXT REL TAB PO SCH (20:42)
[2019-11-30] MEDS: DOCUSATE SODIUM/SENNA 50/8.6MG TAB PO SCH (20:44)
[2019-12-01] MEDS: OXYCODONE HCL IR 5 MG TAB (IMMEDIATE RELEASE) PO PRN ×2 (00:09→12:34)
[2019-12-01] MEDS ORDERED: VANCOMYCIN HCL 1,500 MG in SODIUM CHLORIDE 0.9% 500 ML IV SCH (08:00)
[2019-12-01 08:25] LABS: Creatinine Clr Calc Pharmacy 52.9 ml/min
[2019-12-01] MEDS: CEROVITE ADV FORMULA TAB PO SCH ×2 (08:36→21:01)
[2019-12-01] MEDS: PANTOprazole 40 MG TAB PO SCH ×2 (08:36→21:01)
[2019-12-01] MEDS: DOCUSATE SODIUM 100 MG CAP PO SCH ×2 (08:37→21:00)
[2019-12-01] MEDS: GABAPENTIN 600 MG TAB PO SCH ×2 (08:37→21:01)
[2019-12-01] MEDS: CHOLECALCIFEROL 1,000 UNITS 25 MCG TAB PO SCH (08:37)
[2019-12-01] MEDS: INSULIN GLARGINE SOLOSTAR 100 UNITS/ML 3 ML PEN SC SCH ×2 (08:38→21:04)
[2019-12-01] MEDS: INSULIN ASPART 100 UNITS/ML 3 ML PEN SQ SCH ×4 (08:44→21:04)
--- NOTE | 2019-12-01 09:07 | Pharmacy Report ---
Pharmacy Glycemic Short Note 2 - Date of Service December 01, 2019 - Glycemic Short BSG Results (Last 24 hours): 11/30/19 11/30/19 11/30/19 12:16 17:09 20:45 POC Glucose 165 H 127 H 194 H 12/01/19 08:03 POC Glucose 115 H OUTPATIENT ANTIDIABETIC REGIMEN (regimen confirmed with [facility]): * Lantus 34 units SC BID * Novolog 5 units SC w/ breakfast, 12 units w/ lunch, and 9 units w/ dinner * A1c = 7.6 % (09/23/19) ASSESSMENT: 11/30: * Received 88 units of insulin yesterday with adequate glycemic control, BSGs ranged from 127-194 mg/dL * Received 55 units of basal, 33 units of bolus * Fasting this AM 115, within goal range, will continue current sliding scale for Lantus for now, will monitor as it has been trending down. 11/27 * Type 2 diabetic admitted for neurogenic claudication failing conservative management. * POD #1 s/p lumbar decompression/fusion * BSGs acceptable over last 24 hrs, most of which 180s or less * No steroids admin go-op and none currently ordered * Patient's mental status leading to poor PO intake. Contacted by RN this AM given concerns for reduced PO intake and Clears Diet. Out-pt regimen reviewed and is "basal heavy", thus thus patient could be at risk for hypoglycemia in the setting of prolonged poor PO intake. Will redistribute total daily insulin dose (~94 units/day) as ~ 50% basal and ~50% bolus. Lantus dosing scale will be used as a precaution to lessen risk of hypoglycemia. PLAN FOR INPATIENT GLYCEMIC CONTROL: * Basal insulin * Lantus SQ BID per scale: * 0 units if BSG less than 100 * 25 units if BSG 100-180 * 30 units if BSG above 180 * Bolus insulin * NovoLog per scale ACHS or Q6hrs while NPO * Goal Range: Low 110 mg/dL - High 140 mg/dL * Correction Factor: 18 mg/dL/unit * Nutritional / Prandial insulin per carb ratio of 1 unit per 6 grams CHO consumed PLAN FOR DISCHARGE: * Currently awaiting placement. A1c 7.6% reasonable for patient given age/comorbidities. Patient has been requiring slightly less insulin while in hospital,can consider reductions in home lantus/mealtime novolog dosing if poor appetite/diet changes outpatient/rehab facility.
[2019-12-01] MEDS: ACETAMINOPHEN 500 MG TAB PO PRN (10:42)
--- NOTE | 2019-12-01 13:57 | Orthopedic Progress Note ---
Date of Service December 01, 2019 Assessment & Plan (1) Neurogenic claudication due to lumbar spinal stenosis: Admission and Anticipated Discharge Date Admission Date: November 27, 2019 This time we will maintain the SHAHEEN drain another 24 hours. We will continue to e ncourage physical therapy as tolerated. She does have evidence for possible infection and bacteremia has been started on vancomycin. Await instructions from medicine regarding her ability to transfer to skilled facility. Subjective Patient's back pain is controlled leg symptoms improved. She denies any shortness of breath at this time. Physical Exam Physical Exam: Patient is in bed she has reasonable strength testing. Results & Data ([facility]) Vital Signs (Past 12 Hours) Vital Signs Temp Pulse Resp BP Pulse Ox 12/01/19 07:24 36.7 C 79 20 128/77 90
--- NOTE | 2019-12-01 16:29 | Hospitalist Progress Note ---
Date of Service December 01, 2019 Assessment & Plan (1) Acute respiratory failure with hypoxia: Pt had acute resp failure with hypoxia overnight after receiving IV dilaudid and had POx 60%, difficult to wake up. She was placed on BiPAP overnight and and still some hypoxia but maintaining good pulse ox on 2 L nasal cannula Has a h/o chronic suspected aspiration, has chronic productive cough Much improved now, using CPAP at night-we will add on order to use CPAP with naps. essentially resolved, breathing at baseline (2) Acute metabolic encephalopathy: With mild confusion after having hypoxia overnight and with taking oxycodone but now resolved Observe for improvement with treatment of resp failure as above, avoidance of excessive sedation With fever, checked UA which was negative and CXR as above clear No further fevers mental status is normal today, AAOx3 (3) Fever: Likely was secondary to atelectasis UA normal and CXR clear as above, wound good as per Surgery Do not suspect DVT hypoxia seemed directly related to receiving IV dilaudid high dose and not having BiPAP/CPAP in place, do not suspect PE CXR as above no PNA but did have abnl RML on Chest CT follow give tylenol prn check BCxs- one of four with micrococcus, doubt significance, stop Vanco and observe (4) Neurogenic claudication due to lumbar spinal stenosis: As mentioned Dr. Rodrigues performed T12 L4 decompression fusion for the symptoms failing outpatient conservative management -avoid IV dilaudid -low dose oxycodone is tolerated today and would not go up on dose -bowel regimen-had bowel movement yesterday and today -Improving overall and orthopedic spine surgery plans on sending her to rehab, likely tomorrow (5) Type 2 DM with CKD stage 3 and hypertension: ADA diet Pharmacy managing basal and bolus insulin accuchecks (6) Severe obstructive sleep apnea: CPAP 14 cm H2O as above Must use at bedtime and with all naps (7) GERD (gastroesophageal reflux disease): cont PPI (8) Hypertension: BPs acceptable continue Toprol (9) Anxiety and depression: Typically takes escitalopram 20 mg daily quite anxious here but is improved today avoid lorazepam due to severe obstructive sleep apnea (10) Left pontine stroke: h/o such in 2019 holding Plavix for surgery, restart when ok with Ortho-hopefully upon discharge continue statin (11) Chronic pulmonary aspiration: as noted above, caution with diet-she eats soft foods only -Must have head of bed at 30 degrees at all times (12) Neuropathy: continue gabapentin from home (13) CKD (chronic kidney disease): CKD stage 3, his renal function here is stable from previous -Avoid nephrotoxins -renally dose meds when appropriate Follow BMP occasionally at rehab (14) Morbid obesity: BMI 42.4 kg/m2 needs weight loss counseling (15) Microcytic anemia: hgb 11 preop and some acute blood loss anemia down to hgb 8.3 today microcytic Fe studies with Fe deficiency here trans sat 11%, ferritin 40 -start FeSO4 at discharge once bowel routine established to avoid constipation No need to follow CBC in the morning (16) DVT prophylaxis: SCDs Dispo-continued stay on medical/surgical floor, awaiting placement at [facility]-hopefully on Sunday if okay with orthopedic surgery Medical condition is much improved, however hospitalist service will continue to follow along given her multiple comorbidities Admission and Anticipated Discharge Date Admission Date: November 27, 2019 Subjective patient c/o pain in right lower quadrant she said she did not have that pain on admission she is unsure if it is better or worse with laying down, sitting she says it is constant, she denies having back pain reviewed labs, blood cultures with one out of four with micrococcus, will stop Vanco ortho will keep SHAHEEN drain another 24 hours Review of Systems Review of Systems: All systems reviewed & are unremarkable except as noted in Subjective Constitutional: + weakness; no fever, no chills, no sweats and no fatigue Respiratory: no cough and no dyspnea Cardiovascular: no chest pain and no edema Gastrointestinal: + abdominal pain (RLQ); no nausea, no vomiting, no constipation and no diarrhea/loose stools Genitourinary: no dysuria Physical Exam Constitutional: well developed and + morbidly obese; no acute distress Eyes: PERRL, conjunctivae normal, anicteric sclerae ENMT: external ear and nose normal, oropharynx normal Neck: trachea midline, no thyromegaly Respiratory: normal respiratory effort, lungs clear to auscultation Cardiovascular: RRR, no murmur, no edema Gastrointestinal (Abdomen): Inspection/Auscultation: abdomen normal to inspection and normal bowel sounds; abdomen not distended Percussion/Palpation: + abdomen tender (RLQ) and abdomen soft; no guarding and abdomen not rigid Musculoskeletal: no cyanosis or clubbing, extremities motor strength 5/5 Skin: no rashes, warm and dry Neurologic: patellar DTR's 2+ bilat, sensation intact and PERRL, EOMI, accommodation nl, no face palsy, no dysarthria Psychiatric: A+Ox3, euthymic affect Lymphatic: no cervical or axillary lymphadenopathy Results & Data Results & Data ([facility]) Vital Signs (Past 12 Hours) Vital Signs Temp Pulse Resp BP Pulse Ox 12/01/19 14:59 36.9 C 82 17 147/72 H 92 12/01/19 07:24 36.7 C 79 20 128/77 90 Laboratory Results Laboratory Results - last 24 hr 12/01/19 12/01/19 12/01/19 07:41 08:03 12:14 Creatinine 0.95 Est Cr Clr Drug Dosing 52.9 Est GFR ( Amer) 66.0 Est GFR (Non-Af Amer) 57.0 POC Glucose 115 H 186 H 12/01/19 12/01/19 16:05 20:24 Creatinine Est Cr Clr Drug Dosing Est GFR ( Amer) Est GFR (Non-Af Amer) POC Glucose 137 H 173 H Microbiology 11/28/19 21:58 Blood Aerobic Blood Culture - Preliminary Micrococcus species 11/28/19 21:58 Blood Anaerobic Blood Culture - Preliminary No growth in Anaerobic bottle after 48 hours. 11/28/19 21:59 Blood Aerobic Blood Culture - Preliminary No growth in Aerobic bottle after 48 hours. 11/28/19 21:59 Blood Anaerobic Blood Culture - Preliminary No growth in Anaerobic bottle after 48 hours. 11/13/19 Unknown Urine,Clean Catch Urine Culture - Final Escherichia coli Medications Administered Current Inpatient Medications Acetaminophen (Acetaminophen 500 Mg Tab) 1,000 mg PO Q8H PRN PRN Reason: MILD Pain Scale 1,2,3 & Pre PT Stop: 12/27/19 15:20 Last Admin: 12/01/19 10:42 Dose: 1,000 mg Documented by: Al Hydrox/Mg Hydrox/Simethicone (Aluminum/Magnesium Susp 30 Ml Udc) 30 ml PO Q6H PRN PRN Reason: Dyspepsia Stop: 12/27/19 15:20 Albuterol (Albuterol 0.083% Nebu Soln 3 Ml Vial) 1.25 mg INH DAILY PRN PRN Reason: Shortness Of Breath Stop: 12/29/19 17:35 Bisacodyl (Bisacodyl 10 Mg Supp) 10 mg MS DAILY PRN PRN Reason: Constipation Stop: 12/27/19 15:20 Dextrose (Dextrose 50% 50 Ml Syringe) 25 - 50 ml IV UD PRN; Protocol PRN Reason: Hypoglycemia Protocol Stop: 12/27/19 16:29 Docusate Sodium (Docusate Sodium 100 Mg Cap) 100 mg PO BID [facility] Stop: 12/29/19 20:59 Last Admin: 12/01/19 21:00 Dose: 100 mg Documented by: Epinephrine HCl (Epinephrine Inj 1 Mg/Ml Amp) 0.3 mg IM UD PRN PRN Reason: Anaphylaxis Stop: 12/27/19 15:20 Escitalopram Oxalate (Escitalopram Oxalate 20 Mg Tab) 20 mg PO QPM [facility] Stop: 12/27/19 20:59 Last Admin: 12/01/19 21:01 Dose: 20 mg Documented by: Famotidine (Famotidine 20 Mg Tab) 20 mg PO Q12H PRN PRN Reason: Dyspepsia Stop: 12/27/19 15:20 Fexofenadine HCl (Fexofenadine 60 Mg Tab) 60 mg PO Q12H PRN PRN Reason: Allergic Symptoms Stop: 12/27/19 15:20 Gabapentin (Gabapentin 600 Mg Tab) 600 mg PO BID [facility] Stop: 12/27/19 20:59 Last Admin: 12/01/19 21:01 Dose: 600 mg Documented by: Glucagon (Glucagon For Inj 1 Mg Vial) 1 mg IM UD PRN; Protocol PRN Reason: Hypoglycemia Protocol Stop: 12/27/19 16:29 Glucose (Glucose 40% Gel 15 Gm Tube) 15 - 30 gm PO UD PRN; Protocol PRN Reason: Hypoglycemia Protocol Stop: 12/27/19 16:29 Glucose (Glucose 10 Tabs/Tube) 4 - 8 tabs PO UD PRN; Protocol PRN Reason: Hypoglycemia Protocol Stop: 12/27/19 16:29 Influenza Virus Vaccine Quadrival (Do Not Administer Flu Vaccine) 1 ea N/A PRN PRN PRN Reason: Notification Stop: 12/27/19 15:20 Insulin Aspart (Insulin Aspart 100 Units/Ml 3 Ml Pen) 0 units SQ ACHS [facility] Stop: 12/27/19 16:29 Last Admin: 12/01/19 21:04 Dose: 2 units Documented by: Insulin Glargine (Insulin Glargine Solostar 100 Units/Ml 3 Ml Pen) 0 units SC BID [facility]; Protocol Stop: 12/28/19 20:59 Last Admin: 12/01/19 21:04 Dose: 25 units Documented by: Magnesium Hydroxide (Magnesium Hydroxide Susp 30 Ml Udc) 30 ml PO DAILY PRN PRN Reason: Constipation Stop: 12/27/19 15:20 Metoclopramide HCl (Metoclopramide Hcl Inj 5 Mg/Ml 2 Ml Vial) 10 mg IV Q6H PRN PRN Reason: Nausea &/or Vomiting Stop: 12/27/19 15:20 Metoprolol Succinate (Metoprolol Succ 50mg Ext Rel Tab) 50 mg PO QPM [facility] Stop: 12/27/19 20:59 Last Admin: 12/01/19 21:02 Dose: 50 mg Documented by: Miscellaneous (Carbohydrates For Hypoglycemia ) 15 - 30 gm PO UD PRN PRN Reason: Hypoglycemia Treatment Stop: 12/27/19 16:29 Miscellaneous Information (Pharmacy Glycemic Mgmt Consult) 1 ea N/A UD [facility] Stop: 12/27/19 16:01 Multivitamins/Minerals (Cerovite Adv Formula Tab) 1 tab PO BID [facility] Stop: 12/27/19 20:59 Last Admin: 12/01/19 21:01 Dose: 1 tab Documented by: Naloxone HCl (Naloxone Hcl 0.4 Mg/1 Ml Vial/Carp) 0.1 mg IV Q5M PRN; Protocol PRN Reason: Oversedation/Resp Depression Stop: 12/27/19 15:20 Nitroglycerin (Nitroglycerin Sl 0.4 Mg/Tab Tab) 0.4 mg SL Q5M PRN PRN Reason: chest pain Stop: 12/27/19 15:20 Ondansetron HCl (Ondansetron Inj 2 Mg/Ml 2 Ml Vial) 4 mg IV Q6H PRN PRN Reason: Nausea &/or Vomiting Stop: 12/27/19 15:20 Ondansetron HCl (Ondansetron 4 Mg Od Tab) 4 mg PO Q6H PRN PRN Reason: Nausea Stop: 12/27/19 15:20 Oxycodone HCl (Oxycodone Hcl Ir 5 Mg Tab (Immediate Release)) 2.5 mg PO Q12 PRN PRN Reason: Pain Stop: 12/13/19 17:35 Last Admin: 12/01/19 12:34 Dose: 2.5 mg Documented by: Pantoprazole Sodium (Pantoprazole 40 Mg Tab) 40 mg PO BID [facility] Stop: 12/27/19 20:59 Last Admin: 12/01/19 21:01 Dose: 40 mg Documented by: Pneumococcal Polyvalent Vaccine (Do Not Administer Pneumococcal Vaccine) 1 ea N/A PRN PRN PRN Reason: Notification Stop: 12/27/19 15:20 Pravastatin Sodium (Pravastatin Sod 40 Mg Tab) 40 mg PO Q2D@0900 [facility] Stop: 12/28/19 08:59 Last Admin: 11/30/19 09:16 Dose: 40 mg Documented by: Senna/Docusate Sodium (Docusate Sodium/Senna 50/8.6mg Tab) 2 tab PO HS [facility] Stop: 12/27/19 20:59 Last Admin: 12/01/19 21:08 Dose: 2 tab Documented by: Sodium Biphosphate/Sodium Phosphate (Sod Phosphate/Sod Biphosphate Enema 132 Ml Btl) 132 ml MS ONE PRN PRN Reason: Constipation Stop: 12/27/19 15:20 Vitamin D (Cholecalciferol 1,000 Units 25 Mcg Tab) 5,000 units PO QAM [facility] Stop: 12/28/19 08:59 Last Admin: 12/01/19 08:37 Dose: 5,000 units Documented by: PG Care Time/CCT Total # of Minutes Spent Total Time Spent with Patient: Total time spent is greater than 50% in coordination of care (as documented) at patient's floor/unit and/or counseling patient: Coding Level of Care Code 62750 Subseq Hosp Care Lvl 2 Diagnoses Acute respiratory failure with hypoxia J96.01 Acute metabolic encephalopathy G93.41 Fever R50.9 Neurogenic claudication due to lumbar spinal stenosis M48.062 Type 2 DM with CKD stage 3 and hypertension E11.22; I12.9; N18.3 Severe obstructive sleep apnea G47.33 GERD (gastroesophageal reflux disease) K21.9 Hypertension I10 Hypertension type: unspecified Anxiety and depression F41.9; F32.9 Left pontine stroke I63.50 Chronic pulmonary aspiration T17.908A Neuropathy G62.9 CKD (chronic kidney disease) N18.9 Chronic kidney disease stage: unspecified stage Morbid obesity E66.01 Microcytic anemia D50.9 DVT prophylaxis Z29.9 (1) CKD (chronic kidney disease) Chronic kidney disease stage: unspecified stage Qualified Code(s): N18.9 - Chronic kidney disease, unspecified (2) Hypertension Hypertension type: unspecified Qualified Code(s): I10 - Essential (primary) hypertension
[2019-12-01] MEDS: ESCITALOPRAM OXALATE 20 MG TAB PO SCH (21:01)
[2019-12-01] MEDS: METOPROLOL SUCC 50MG EXT REL TAB PO SCH (21:02)
[2019-12-01] MEDS: DOCUSATE SODIUM/SENNA 50/8.6MG TAB PO SCH (21:08)
[2019-12-02] MEDS: OXYCODONE HCL IR 5 MG TAB (IMMEDIATE RELEASE) PO PRN ×2 (00:56→12:35)
[2019-12-02] MEDS: PANTOprazole 40 MG TAB PO SCH (08:43)
[2019-12-02] MEDS: DOCUSATE SODIUM 100 MG CAP PO SCH (08:43)
[2019-12-02] MEDS: GABAPENTIN 600 MG TAB PO SCH (08:43)
[2019-12-02] MEDS: CEROVITE ADV FORMULA TAB PO SCH (08:43)
[2019-12-02] MEDS: INSULIN GLARGINE SOLOSTAR 100 UNITS/ML 3 ML PEN SC SCH (08:44)
[2019-12-02] MEDS: CHOLECALCIFEROL 1,000 UNITS 25 MCG TAB PO SCH (08:44)
[2019-12-02] MEDS: PRAVASTATIN SOD 40 MG TAB PO SCH (08:44)
[2019-12-02] MEDS: INSULIN ASPART 100 UNITS/ML 3 ML PEN SQ SCH ×2 (08:50→12:51)
--- NOTE | 2019-12-02 10:25 | Discharge Summary ---
Date of Service December 02, 2019 Admission HPI Per Admitting Provider This is a 79-year-old female known to me the presents with chronic persistent back and bilateral leg pain with weakness. After failing extensive course of nonoperative care is here for surgical intervention. Principal Diagnosis Lumbar spinal stenosis with neurogenic claudication Discharge Data Allergies Allergy/AdvReac Type Severity Reaction Status Date / Time Bactrim Allergy Severe THROAT Verified 05/14/15 15:22 CLOSED celecoxib [From Celebrex] Allergy Severe CAUSED Verified 11/27/19 07:24 STROKE meperidine Allergy Severe almost Verified 11/27/19 07:24 "closed throat" midodrine Allergy Severe "almost Verified 11/27/19 07:24 closed throat" Penicillins Allergy Severe ANAPHYLAXIS Verified 11/27/19 07:24 Quinolones Allergy Severe TOLERATED Verified 11/27/19 07:24 LEVAQUIN IV - SEP 06 sulfamethoxazole Allergy Severe THROAT Verified 11/27/19 07:24 CLOSED trimethoprim Allergy Severe THROAT Verified 11/27/19 07:24 CLOSED diphenoxylate Allergy Intermediate Unknown Verified 11/27/19 07:24 metronidazole [From Flagyl] Allergy Intermediate Hives Verified 11/27/19 07:24 DENILSON Inhibitors Allergy Unknown unknown to Verified 11/27/19 07:24 pt atropine Allergy Unknown Unknown Verified 11/27/19 07:24 carvedilol Allergy Unknown Unknown Verified 11/27/19 07:24 clonazepam [From Klonopin] Allergy Unknown Unknown Verified 11/27/19 07:24 doxycycline Allergy Unknown Unknown Verified 11/27/19 07:24 furosemide [From Lasix] Allergy Unknown Unknown Verified 11/27/19 07:24 Histamine H2 Inhibitors Allergy Unknown unknown to Verified 11/27/19 07:24 pt Iodinated Contrast Media Allergy Unknown JULY 2017 Verified 11/27/19 07:24 [facility] -- TOLERATED WITH SLOW INFUSION PER PATIENT nitrofurantoin Allergy Unknown Unknown Verified 11/27/19 07:24 phenazopyridine Allergy Unknown Unknown Verified 11/27/19 07:24 ranitidine Allergy Unknown Unknown Verified 11/27/19 07:24 repaglinide Allergy Unknown Unknown Verified 11/27/19 07:24 rosiglitazone Allergy Unknown Unknown Verified 11/27/19 07:24 tolterodine [From Detrol] Allergy Unknown Unknown Verified 11/27/19 07:24 aspartame Allergy Verified 11/27/19 07:24 [From Nutrasweet Aspartame] prednisone Allergy Verified 11/27/19 07:24 citalopram [From Celexa] AdvReac Severe Verified 11/27/19 07:24 glyburide AdvReac Intermediate SEVERE Verified 11/27/19 07:24 ABDOMINAL PAIN metformin AdvReac Intermediate SEVERE Verified 11/27/19 07:24 ABDOMINAL PAIN oxycodone AdvReac Intermediate SEVERE Verified 11/27/19 07:24 WITHDRAWAL SYMPTOMS WHEN TRYING TO STOP TAKING paroxetine AdvReac Intermediate DID NOT Verified 11/27/19 07:24 HELP temazepam AdvReac Intermediate DID NOT Verified 11/27/19 07:24 HELP tramadol AdvReac Intermediate Vomiting Verified 11/27/19 07:24 diazepam AdvReac Mild SEDATION Verified 11/27/19 07:24 LASTING TOO LONG meloxicam [From Mobic] AdvReac Mild SICK TO Verified 11/27/19 07:24 STOMACH albuterol AdvReac Unknown UNK Verified 11/27/19 07:24 carbamazepine AdvReac Unknown Unknown Verified 11/27/19 07:24 ibuprofen AdvReac Unknown Unknown Verified 11/27/19 07:24 lisinopril AdvReac Unknown UNK Verified 11/27/19 07:24 mirtazapine AdvReac Unknown Unknown Verified 11/27/19 07:24 olanzapine AdvReac Unknown Unknown Verified 11/27/19 07:24 rofecoxib AdvReac Unknown Unknown Verified 11/27/19 07:24 valproic acid AdvReac Unknown Unknown Verified 11/27/19 07:24 Consultations 11/27/19 15:21 Consult Case Management - Discharge Planning Routine Consult Hospitalist Routine Procedures Performed Operation Date: 11/27/19 09:35 Actual Procedures p T12-L4 Decompression and Fusion, Spinal Cord Monitoring(Not Applicable) - Salazar Rodrigues DO Ordered Studies 11/27/19 09:35 FL fluoroscopy <1hr Routine FL lumbar spine 2-3V Routine Hospital Course (1) Neurogenic claudication due to lumbar spinal stenosis: Patient underwent thoracolumbar decompression fusion was taken to the PACU postoperatively. She progressed appropriately was ultimately transferred to orthopedic floor was able to tolerate physical therapy SHAHEEN drain decreasing probably. Leg symptoms improving. Strength intact to testing lower extremities. Subsequently discharged to rehab facility. Discharge orders instructions from the chart for further review. Total Time Total Time Spent Total Time Spent (In Minutes): 20 minutes Discharge Plan Discharge Items Patient Disposition: Transfer Inpatient Rehab Fac Reason For Visit: Spinal Stenosis, Lumbar Region with Neurogenic Cla Discharge Diagnosis: Lumbar spinal stenosis with neurogenic claudication Activity: As commented below Non-emergency contact: Primary Care Provider Call non-emergency contact if: you have any medication questions Follow-up/Referrals: Darwin Lugo III, HARVINDER [Primary Care Provider] - Diet: Regular Addtl Attending Provider Instructions: ACTIVITY RECOMMENDATIONS: SELF CARE INSTRUCTIONS AFTER THORACIC/LUMBAR FUSIONS 1. You may walk to your tolerance. It is good exercise for your legs and back. Expect some back and intermittent leg aches and pains. 2. You may perform "counter-top" level activities (make a sandwich, gavin with a project, etc.). 3. No bending or lifting of more than 10 pounds or back twisting of any nature (roll like a log when turning in bed). 4. You may ride in a car for 20-30 minutes at a time. No driving until after your first visit with your doctor. 5. Frequent changes of position and restricting sitting to 30 minutes at a time will help limit the amount of back spasms and stiffness you may experience. 6. You may discontinue the use of ambulatory aids (cane, crutches, etc.) once your strength and confidence allow. 7. You may disciplinary hearing officer the shower and let water strike your incision when you arrive home at least once daily. Do not take a tub bath, sit in a hot tub or go into a swimming pool until after your first recheck in the office. SPECIAL CARE INSTRUCTIONS: VERY IMPORTANT TO READ AND REVIEW A. Your surgical incision has been closed with a cosmetic suture under the skin that will dissolve in about 6 weeks. In 14 days, you can use a pair of clean scissors and cut the suture that is left outside of the skin at the ends of your incision. 1. The small skin tapes can be removed 7 days after surgery if they have not fallen off by that point. 2. You may keep the wound open to air as much as possible to promote healing after post-op day number 5 unless told otherwise by your doctor. 3. If you think the wound looks like it is becoming infected (redness or worsening drainage) and/or you are experiencing fever, chill or worsening back pain and muscle spasms, contact the office so that we may evaluate you as soon as possible. B. Complications are uncommon, but please contact us if you have any signs or symptoms of: 1. wound infection (fever higher than 102.5 degrees F, redness, separation of wound, drainage, or increasing pain from the incision) 2. blood clots in legs (pain, swelling, redness and warmth in legs) 3. urinary tract infection (fever higher than 102.5 degrees F, burning upon urination or increased frequency of urination) 4. nerve problems (inability to walk on your toes or heels, numbness, loss of bowel or bladder control) 5. any other symptoms that concern you C. Please call the office at if you have any concerns or questi ons about your operation or recovery. D. No smoking! Smoking drastically decreases the chance of a solid fusion. E. Do not take any anti-inflammatory medications (Indocin, Advil, Motrin, Aspirin, Naprosyn, etc.) as these may inhibit the chance of a solid fusion. Tylenol is okay to take for pain. MANAGING PAIN AFTER SPINAL SURGERY 1. Narcotic medication is intended for short-term use and will be provided for surgical pain. Surgical pain usually lasts for a period of 4-6 weeks. Narcotic medication includes Percocet, Vicodin, Darvocet, Tylenol #3 or Lortab. 2. Longer-term pain is more appropriately treated with non-narcotic medication such as Tylenol ES. 3. Muscle spasm is not appropriately treated with narcotics. Muscle relaxers such as Soma, Flexeril or Skelaxin can be used along with Tylenol ES. 4. Remember that we all live with some "aches and pains". This is not unusual or uncommon after an injury or as we get older. a. Back pain is expected and may include muscle spasms for 4 to 6 weeks after surgery. The pain should gradually improve. If the pain worsens for no apparent reason, please contact the office. b. Intermittent leg pain may also be experienced and should not be concerned about unless it worsens for no apparent reason. If so, please contact the office. 5. We will provide appropriate medication within the normal guidelines of their prescribed use. We will also be very cautious and aware of potential abuse and extended duration of patients' medication needs. a. Pain medications are for your comfort and to assist with sleep and rest so that the tissue can heal. They are not provided in order to return to normal activity and should not be used through the day. To do so or worsening pain at night can result from ongoing tissue damage and development of tolerance to the prescribed medicine. 6. Please allow 2-3 days to process refills. Prescriptions will not be mailed but must be picked up at the office. FOLLOW UP VISIT: Keep your scheduled follow-up appointment. Any questions, please call the office at . Pending Studies at Discharge: No Stand-Alone Forms: My [facility] Skilled Items Patient informed of condition?: Yes DNR: No Discharge Level of Care: Acute rehab Communicable Disease: No Discharge Prognosis: Improving Lines: None Urinary Catheter: No Medications and DC Order Prescriptions: New oxycodone 5 mg tablet 5 mg PO Q6H PRN (Reason: pain, severe) Qty: 20 RF: 0 Continued clopidogrel [Plavix] 75 mg tablet 75 mg PO QAM Qty: 30 RF: 1 gabapentin [Neurontin] 300 mg capsule 600 mg PO BID Qty: 60 RF: 5 Senna Plus 8.6-50 mg capsule 1 tab-cap PO DAILY@1200 Qty: 30 RF: 5 cholecalciferol (vitamin D3) [Vitamin D3] 125 mcg (5,000 unit) tablet 5,000 unit PO QAM Qty: 30 RF: 5 (DME) OneTouch Ultra Blue Test Strip Strip See Rx Instructions .ROUTE .MEDSUPPLY Qty: 100 RF: 6 (DME) lancets [OneTouch Delica Lancets] 33 gauge misc See Rx Instructions .ROUTE .MEDSUPPLY Qty: 500 RF: 1 albuterol sulfate [Ventolin HFA] 90 mcg/actuation HFA aerosol inhaler 1 - 2 puff INHALATION Q4 PRN (Reason: Shortness Of Breath Or Wheezing) Qty: 18 RF: 1 (DME) pen needle, diabetic [BD Ultra-Fine Short Pen Needle] 31 gauge x 5/16" needle See Rx Instructions .ROUTE .MEDSUPPLY Qty: 500 RF: 1 pantoprazole 40 mg tablet,delayed release (DR/EC) 40 mg PO BID Qty: 60 RF: 5 Novolog Flexpen U-100 Insulin 100 unit/mL (3 mL) insulin pen See Rx Instructions SUBCUT TID Qty: 15 RF: 5 Novolog Flexpen U-100 Insulin 100 unit/mL (3 mL) insulin pen See Rx Instructions SUBCUT TID Qty: 1 RF: 5 Basaglar KwikPen U-100 Insulin 100 unit/mL (3 mL) insulin pen 34 units SUBCUT BID 90 Days Qty: 61.2 RF: 3 pravastatin 40 mg tablet 40 mg PO .COMPLEX Qty: 45 RF: 1 PreserVision AREDS [id number] ebto-mk-tign capsule 1 cap PO BID Qty: 60 RF: 2 loperamide [Imodium A-D] 2 mg capsule 4 mg PO .COMPLEX PRN (Reason: Diarrhea) RF: 0 escitalopram oxalate 20 mg tablet 20 mg PO QPM RF: 0 melatonin 10 mg capsule 10 mg PO HS PRN (Reason: Sleep) RF: 0 acetaminophen [Tylenol Extra Strength] 500 mg tablet 1,000 mg PO Q6H PRN (Reason: Fever Or Pain) Qty: 60 RF: 5 ketoconazole 2 % shampoo 1 appln TOP Q14D Qty: 120 RF: 0 docusate sodium [Colace] 100 mg capsule 100 mg PO BID PRN (Reason: Constipation) RF: 0 nitroglycerin 0.4 mg tablet, sublingual 0.4 mg sublingual Q5M PRN (Reason: chest pain) Qty: 30 RF: 0 epinephrine 0.3 mg/0.3 mL auto-injector 0.3 mg IM UD PRN (Reason: Anaphylaxis) RF: 0 lidocaine [Salonpas (lidocaine)] 4 % Adhesive Patch,Medicated 1 patch TOPICAL DAILY PRN (Reason: Pain) RF: 0 diphenhydramine-acetaminophen [Tylenol PM Extra Strength] 25-500 mg Tablet 1 tab PO HS PRN (Reason: Sleep) RF: 0 biotin 5,000 mcg Tablet,Disintegrating 5,000 mcg PO BID RF: 0 coenzyme Q10 200 mg capsule 200 mg PO QAM RF: 0 fexofenadine 60 mg tablet 60 mg PO Q12H PRN (Reason: Allergic Symptoms) RF: 0 PreserVision AREDS-2 [id number] dc-qdac-ka-mg Capsule 1 tab PO BID RF: 0 metoprolol succinate [Toprol XL] 50 mg tablet extended release 24 hr 50 mg PO QPM RF: 0 albuterol sulfate 2.5 mg /3 mL (0.083 %) Solution For Nebulization 1.25 mg INHALATION DAILY PRN (Reason: Shortness Of Breath) RF: 0 Discontinued ibuprofen 200 mg Tablet 400 mg PO Q6H PRN (Reason: Pain) RF: 0 Discharge Orders: Discharge Order (Routine); Ordered 12/02/19 Ordered By: Salazar Rodrigues Admission Data Admit Date/Time: 11/27/19 14:38 Attending Provider: Salazar Rodrigues Admit Provider: Salazar Rodrigues Primary Care Provider: Darwin Lugo III Other Providers: [facility] ; Dyllan Feliciano ; Reji Mijares
--- NOTE | 2019-12-02 22:13 | Hospitalist Progress Note ---
Date of Service December 02, 2019 Assessment & Plan (1) Acute respiratory failure with hypoxia: Pt had acute resp failure with hypoxia overnight after receiving IV dilaudid and had POx 60%, difficult to wake up. She was placed on BiPAP overnight and and still some hypoxia but maintaining good pulse ox on 2 L nasal cannula Has a h/o chronic suspected aspiration, has chronic productive cough Much improved now, using CPAP at night-we will add on order to use CPAP with naps. essentially resolved, breathing at baseline need to avoid over sedation and make sure she uses CPAP (2) Acute metabolic encephalopathy: With mild confusion after having hypoxia overnight and with taking oxycodone but now resolved Observe for improvement with treatment of resp failure as above, avoidance of excessive sedation With fever, checked UA which was negative and CXR as above clear No further fevers mental status is normal today, AAOx3 for several days (3) Fever: Likely was secondary to atelectasis UA normal and CXR clear as above, wound good as per Surgery Do not suspect DVT hypoxia seemed directly related to receiving IV dilaudid high dose and not having BiPAP/CPAP in place, do not suspect PE CXR as above no PNA but did have abnl RML on Chest CT follow give tylenol prn check BCxs- one of four with micrococcus, doubt significance, stop Vanco and observe -- no fever, feeling well (4) Neurogenic claudication due to lumbar spinal stenosis: As mentioned Dr. Rodrigues performed T12 L4 decompression fusion for the symptoms failing outpatient conservative management -avoid IV dilaudid -low dose oxycodone is tolerated today and would not go up on dose -bowel regimen-had bowel movement yesterday and today -Improving overall and orthopedic spine surgery plans on sending her to rehab, likely tomorrow (5) Type 2 DM with CKD stage 3 and hypertension: ADA diet Pharmacy managing basal and bolus insulin accuchecks (6) Severe obstructive sleep apnea: CPAP 14 cm H2O as above Must use at bedtime and with all naps (7) GERD (gastroesophageal reflux disease): cont PPI (8) Hypertension: BPs acceptable continue Toprol (9) Anxiety and depression: Typically takes escitalopram 20 mg daily quite anxious here but is improved today avoid lorazepam due to severe obstructive sleep apnea (10) Left pontine stroke: h/o such in 2019 holding Plavix for surgery, restart when ok with Ortho-hopefully upon discharge continue statin (11) Chronic pulmonary aspiration: as noted above, caution with diet-she eats soft foods only -Must have head of bed at 30 degrees at all times (12) Neuropathy: continue gabapentin from home (13) CKD (chronic kidney disease): CKD stage 3, his renal function here is stable from previous -Avoid nephrotoxins -renally dose meds when appropriate Follow BMP occasionally at rehab (14) Morbid obesity: BMI 42.4 kg/m2 needs weight loss counseling (15) Microcytic anemia: hgb 11 preop and some acute blood loss anemia down to hgb 8.3 today microcytic Fe studies with Fe deficiency here trans sat 11%, ferritin 40 -start FeSO4 at discharge once bowel routine established to avoid constipation No need to follow CBC in the morning (16) DVT prophylaxis: SCDs Dispo-continued stay on medical/surgical floor, awaiting placement at [facility]-hopefully on Sunday if okay with orthopedic surgery Medical condition is much improved, however hospitalist service will continue to follow along given her multiple comorbidities Admission and Anticipated Discharge Date Admission Date: November 27, 2019 Subjective patient pleasant today, sitting up in her chair, no complaints of pain today she is eating well participating in therapy d/c arranged for [facility] she feels ready to go Review of Systems Review of Systems: All systems reviewed & are unremarkable except as noted in Subjective Physical Exam Constitutional: well developed and + morbidly obese; no acute distress Eyes: PERRL, conjunctivae normal, anicteric sclerae ENMT: external ear and nose normal, oropharynx normal Neck: trachea midline, no thyromegaly Respiratory: normal respiratory effort, lungs clear to auscultation Cardiovascular: RRR, no murmur, no edema Gastrointestinal (Abdomen): Inspection/Auscultation: abdomen normal to inspection and normal bowel sounds; abdomen not distended Percussion/Palpation: abdomen soft; abdomen nontender, no guarding and abdomen not rigid Musculoskeletal: no cyanosis or clubbing, extremities motor strength 5/5 Skin: no rashes, warm and dry Neurologic: patellar DTR's 2+ bilat, sensation intact and PERRL, EOMI, accomm odation nl, no face palsy, no dysarthria Psychiatric: A+Ox3, euthymic affect Lymphatic: no cervical or axillary lymphadenopathy Results & Data Results & Data (MN) Vital Signs (Past 12 Hours) Vital Signs Temp Pulse Pulse Pulse Resp BP Pulse Ox 12/02/19 12:43 37.0 C 82 79 78 18 134/63 92 PG Care Time/CCT Total # of Minutes Spent Total Time Spent with Patient: Total time spent is greater than 50% in coordination of care (as documented) at patient's floor/unit and/or counseling patient: Coding Level of Care Code 86607 Subseq Hosp Care Lvl 2 Diagnoses Acute respiratory failure with hypoxia J96.01 Acute metabolic encephalopathy G93.41 Fever R50.9 Neurogenic claudication due to lumbar spinal stenosis M48.062 Type 2 DM with CKD stage 3 and hypertension E11.22; I12.9; N18.3 Severe obstructive sleep apnea G47.33 GERD (gastroesophageal reflux disease) K21.9 Hypertension I10 Hypertension type: unspecified Anxiety and depression F41.9; F32.9 Left pontine stroke I63.50 Chronic pulmonary aspiration T17.908A Neuropathy G62.9 CKD (chronic kidney disease) N18.9 Chronic kidney disease stage: unspecified stage Morbid obesity E66.01 Microcytic anemia D50.9 DVT prophylaxis Z29.9 (1) CKD (chronic kidney disease) Chronic kidney disease stage: unspecified stage Qualified Code(s): N18.9 - Chronic kidney disease, unspecified (2) Hypertension Hypertension type: unspecified Qualified Code(s): I10 - Essential (primary) hypertension
== END 2019-12-02 15:51 | DRG 459 ==
LOC: ASU 06:58 → 2S 14:38 → 3N 11-29 15:27

== ENCOUNTER 2019-12-09 15:03 | Inpatient (IN) ==
[2019-12-09] MEDS ORDERED: HYDROmorphone INJ 1 MG/ML SYRINGE IV PRN (15:42)
[2019-12-09] MEDS ORDERED: ONDANSETRON INJ 2 MG/ML 2 ML VIAL IV STA (15:42)
[2019-12-09] MEDS ORDERED: SODIUM CHLORIDE 0.9% 1000ML 1,000 ML IV ONE (15:43)
[2019-12-09] MEDS ORDERED: MoRPHine SULFATE 10 MG/ML CARP/VIAL IV STA (15:48)
[2019-12-09] MEDS ORDERED: DiphenhydrAMINE HCL 50 MG/ML VIAL IV STA (15:58)
[2019-12-09] MEDS ORDERED: methylPREDNISolone 125 MG/2 ML VIAL IV STA (15:58)
[2019-12-09] MEDS ORDERED: FAMOTIDINE 20 MG in SYRINGE 3 ML IV STA (16:00)
[2019-12-09] MEDS ORDERED: SODIUM CHLORIDE 0.9% 250 ML IV PRN (16:07)
[2019-12-09 16:17] LABS: Basophils # (auto) 0.02 K/uL (0-0.2); Basophils % (auto) 0.3 %; Eosinophils # (auto) 0.14 K/uL (0-0.5); Eosinophils % (auto) 2.4 %; Hematocrit (blood only) 26.1 % (37-47); Hemoglobin 7.7 g/dL (12.0-16.0); Immature Granulocytes # (auto) 0.06 K/uL (0.00-0.02); Lymphocytes # (auto) 1.02 K/uL (1.2-3.4); Lymphocytes % (auto) 17.3 %; Mean Corpuscular Hemoglobin 21.7 pg (25-34); Mean Corpuscular Hgb Conc 29.5 g/dL (32-36); Mean Corpuscular Volume 73.5 fL (80-100); Monocytes # (auto) 0.35 K/uL (0.11-0.59); Neutrophils # (auto) 4.29 K/uL (1.4-6.5); Platelet Count 224 K/uL (130-400); RDW Coefficient of Variation 15.5 % (11.5-14.5); RDW Standard Deviation 41.5 fL (36.4-46.3); Red Blood Count 3.55 M/uL (4.2-5.4); White Blood Count 5.88 K/uL (4.8-10.8)
[2019-12-09 16:18] LABS: iSTAT Creatinine 1.2 mg/dl (0.6-1.3); iSTAT Hemoglobin 7.8 g/dl (12.0-16.0); iSTAT Ionized Calcium 1.14 mmol/l (1.12-1.32); iSTAT Potassium 4.2 mmol/L (3.3-5.0)
[2019-12-09 16:38] LABS: Albumin Level 2.4 gm/dl (3.4-5.0); BUN Creatinine Ratio 13.4 (10-20); Calcium 8.6 mg/dl (8.5-10.1); Creatinine Clr Calc Pharmacy 38.6 ml/min; Est GFR (African American) 45.2; Potassium 4.2 mmol/L (3.5-5.1)
--- NOTE | 2019-12-09 16:42 | XRay Report ---
XR chest 1V portable CLINICAL HISTORY: Chest Pain COMPARISON STUDY: Chest radiograph November 28, 2019. FINDINGS: Lung volumes are normal. Minimal left basilar opacity is unchanged. This favors atelectasis or epicardial fat pad There is no pneumothorax or pleural effusion. Cardiac size is normal. Mediasti nal contours are normal. There is no evidence for pulmonary edema. Lumbar spine fusion hardware is pa rtially imaged. IMPRESSION: No acute cardiopulmonary findings. ACT 112: Negative or not required by law. Electronically signed by: Kirby Anna M.D. 12/09/2019 4:41 PM
[2019-12-09] MEDS ORDERED: DEXTROSE 10% 1,000 ML IV SCH (16:45)
[2019-12-09 16:46] LABS: Albumin Globulin Ratio 0.5 (0.9-2); Bilirubin,Total 0.6 mg/dl (0.2-1); Globulin 4.5 gm/dl (2.5-4.0); Total Protein 6.9 gm/dl (6.4-8.2); Troponin I 0.05 ng/ml (0-0.045)
[2019-12-09 16:54] LABS: Hypochromasia Present
[2019-12-09] MEDS ORDERED: IOVERSOL 100ml IV ONE (17:23)
--- NOTE | 2019-12-09 17:49 | CT Scan Report ---
CT OF THE ABDOMEN AND PELVIS WITH CONTRAST CLINICAL HISTORY: Abdominal pain. COMPARISON STUDY: CT of the abdomen and pelvis November 16, 2018. TECHNIQUE: Following IV administration of 94 mL of Optiray-320, axial images of the abdomen and pelvi s were obtained from the lung bases to the proximal femurs. Images were reviewed in the axial, sagitt al, and coronal planes. IV contrast was administered without complication. Automated exposure contro l was utilized for the study. A dose lowering technique was utilized adhering to the principles of A EDWARD. CT DOSE: 953.09 mGycm FINDINGS: No pneumatosis, free air or portal venous gas is present. There is possible fatty infiltrat ion of the liver. There is no peripancreatic infiltration. The spleen and adrenal glands are unremark able. Innumerable bilateral renal lesions are too small character as but favor cysts. Note is made of a 3 cm left renal cyst. There is no hydronephrosis. There is no evidence for a bowel obstruction. Th e appendix is normal. There is a moderate amount of stool within the colon. No bowel wall thickening is noted. There is no lymphadenopathy. A posterior decompression is noted. There is bilateral pedicle screw fusion from T12 through L4. There is joint space narrowing with sclerosis centered at the L1-L 2 disc space. This is likely degenerative. No acute fracture is noted. IMPRESSION: 1. No acute process within the abdomen or pelvis. 2. Moderate amount stool within the colon. No bowel obstruction. Normal appendix. No bowel wall thick ening. 3. Postoperative findings within the thoracolumbar spine. Small amount of gas within the operative be d which is likely postsurgical. Suboptimal evaluation given CT technique. 4. Joint space narrowing with endplate irregularity centered at the L1-L2 disc space, unchanged since chest CT of November 25, 2019. This is likely degenerative. An infectious process could appear similar but is considered less likely. ACT 112: Negative or not required by law. Electronically signed by: Kirby Anna M.D. 12/09/2019 5:47 PM
--- NOTE | 2019-12-09 18:22 | Electrocardiogram Report ---
Test Reason : Blood Pressure : / mmHG Vent. Rate : 070 BPM Atrial Rate : 070 BPM P-R Int : 148 ms QRS Dur : 072 ms QT Int : 436 ms P-R-T Axes : 067 055 049 degrees QTc Int : 470 ms Poor data quality, interpretation may be adversely affected Normal sinus rhythm Normal ECG When compared with ECG of 24-MAR-2019 10:02, No significant change was found Confirmed by Pankaj Allison ([id number]) on 12/09/2019 6:22:09 PM Referred By: Confirmed By:Hector Allison
[2019-12-09] MEDS ORDERED: FAMOTIDINE 20MG/5ML IV PUSH IV ONE (19:06)
[2019-12-09] MEDS ORDERED: GLUCOSE 10 TABS/TUBE PO PRN (20:48)
[2019-12-09] MEDS ORDERED: ONDANSETRON INJ 2 MG/ML 2 ML VIAL IV PRN (20:48)
[2019-12-09] MEDS ORDERED: DEXTROSE 50% 50 ML SYRINGE IV PRN (20:48)
[2019-12-09] MEDS ORDERED: GLUCAGON FOR INJ 1 MG VIAL SQ PRN (20:48)
[2019-12-09] MEDS ORDERED: CARBOHYDRATES FOR HYPOGLYCEMIA PO PRN (20:48)
[2019-12-09] MEDS ORDERED: GLUCOSE 40% GEL 15 GM TUBE PO PRN (20:48)
[2019-12-09] MEDS ORDERED: OXYCODONE HCL IR 5 MG TAB (IMMEDIATE RELEASE) PO PRN (20:59)
[2019-12-09] MEDS: ESCITALOPRAM OXALATE 20 MG TAB PO SCH (21:26)
[2019-12-09] MEDS: GABAPENTIN 300 MG CAP PO SCH (21:26)
[2019-12-09] MEDS: METOPROLOL SUCC 50MG EXT REL TAB PO SCH (21:27)
[2019-12-09] MEDS: PANTOprazole 40 MG TAB PO SCH (21:27)
[2019-12-09] MEDS: INSULIN GLARGINE SOLOSTAR 100 UNITS/ML 3 ML PEN SQ SCH (21:31)
[2019-12-09] MEDS: INSULIN ASPART 100 UNITS/ML 3 ML PEN SC SCH (21:32)
--- NOTE | 2019-12-09 22:12 | History & Physical Report ---
Date of Service December 09, 2019 Assessment & Plan (1) Abdominal pain: Main reason to come to the ED. In the right flank/RUQ area with radiation to the center. Has been going on since surgery. No acute pathology on the CT a/p on 12/08. At home have been using oxycodone since discharge. - Will get RUQ u/s to get better look at CBD (had a cholecystectomy per notes) - Otherwise, this could be constipation which is actually being ultimately worsened by the ongoing opioid use; will start significant bowel regimen (2) Microcytic anemia: No indication this is an acute bleed. No sign of bleeding on the CT a/p on 12/08. No melena or bright red blood in stool. Iron studies indicated iron deficiency shortly after her surgery, and she was not given any IV iron per notes. Hemoglobin of 7.7 is much more in line with a gradual decline since surgery. - Given 1 unit PRBCs by the ED - Will order 3 doses of IV iron to help replete iron stores (3) CKD (chronic kidney disease): Baseline Cr ~0,9, CKD Stage III. On admission, acute kidney injury with Cr. 1.3. - Unclear etiology; possibly decreased PO intake from abdominal pain & surgery. - Gentle IV fluids - Monitor Cr (4) Neurogenic claudication due to lumbar spinal stenosis: S/p spinal decompression/fusion T12-L4 with Dr. Rodrigues on 11/26. - Was to see Emily Smith today - Orthopedic consult for routine follow-up - MINIMAL opioid pain regimen -> Daughter reports oxycodone 2.5 mg PO Q4h PRN as effective without causing altered mental status. Additionally, she had respiratory distress after IV opioids after surgery. (5) Left pontine stroke: In 01/2019. Follows with [facility] neurology. - Continue Plavix, statin (6) Aspiration pneumonia: Per notes, has chronic aspiration due to prior CVA and CAMRON. - Presently breathing comfortably on room air. - Monitor (7) Obesity hypoventilation syndrome: - Will use BiPap PRN (8) Hypertension: BP presently 160/75. - Continue home beta-andreia (9) GERD (gastroesophageal reflux disease): - Continue PPI BID (10) Morbid obesity: - Image Editor weight loss - Consider referral to Dr. Lauren on discharge. (11) DVT prophylaxis: Heparin 7500 units SQ Q12h Admission and Anticipated Discharge Date Admission Date: December 09, 2019 History of Present Illness Primary Care Provider: Darwin Lugo, III, TERRAZZO ROLLER 79yo F w/ hx of DM and back fusion who presents with abdominal pain, weakness, and fatigue. The patient was recently admitted to [facility] with Dr. Rodrigues for a spinal fusion T12-L4 on 11/26. She had a relatively long hospital course that was complicated by confusion and respiratory issues due to opioid administration, but was discharged to [facility] on 12/01. She was recently discharged home from [facility], and her daughter reports that she has had continued abdominal pain. The daughter reports the abdominal pain started the same day after surgery. She reports it is a right upper quadrant pain that radiates around toward the epigastric area. Initially, it was thought this was due to positioning during the surgery; however, the daughter is not sure now that it has been going on for so long. The daughter reports that the pain has not really improved. At [facility], she had constipation and was given an enema. The daughter reports she was never told of any blood or melenic stools. In the ED, she was found to have a hgb of 7.7. This was thought to represent symptomatic anemia, and she was given 1 unit PRBCs. Prior to my arrival, the patient was given hydromorphone, morphine, and IV Benadryl, and as such she is unable to give any meaningful history. Allergies Allergy/AdvReac Type Severity Reaction Status Date / Time Bactrim Allergy Severe THROAT Verified 05/14/15 15:22 CLOSED celecoxib [From Celebrex] Allergy Severe CAUSED Verified 11/27/19 07:24 STROKE meperidine Allergy Severe almost Verified 11/27/19 07:24 "closed throat" midodrine Allergy Severe "almost Verified 11/27/19 07:24 closed throat" Penicillins Allergy Severe ANAPHYLAXIS Verified 11/27/19 07:24 Quinolones Allergy Severe TOLERATED Verified 11/27/19 07:24 LEVAQUIN IV - SEP 06 sulfamethoxazole Allergy Severe THROAT Verified 11/27/19 07:24 CLOSED trimethoprim Allergy Severe THROAT Verified 11/27/19 07:24 CLOSED diphenoxylate Allergy Intermediate Unknown Verified 11/27/19 07:24 metronidazole [From Flagyl] Allergy Intermediate Hives Verified 11/27/19 07:24 DENILSON Inhibitors Allergy Unknown unknown to Verified 11/27/19 07:24 pt atropine Allergy Unknown Unknown Verified 11/27/19 07:24 carvedilol Allergy Unknown Unknown Verified 11/27/19 07:24 clonazepam [From Klonopin] Allergy Unknown Unknown Verified 11/27/19 07:24 doxycycline Allergy Unknown Unknown Verified 11/27/19 07:24 furosemide [From Lasix] Allergy Unknown Unknown Verified 11/27/19 07:24 Histamine H2 Inhibitors Allergy Unknown unknown to Verified 11/27/19 07:24 pt Iodinated Contrast Media Allergy Unknown JULY 2017 Verified 11/27/19 07:24 [facility] -- TOLERATED WITH SLOW INFUSION PER PATIENT nitrofurantoin Allergy Unknown Unknown Verified 11/27/19 07:24 phenazopyridine Allergy Unknown Unknown Verified 11/27/19 07:24 ranitidine Allergy Unknown Unknown Verified 11/27/19 07:24 repaglinide Allergy Unknown Unknown Verified 11/27/19 07:24 rosiglitazone Allergy Unknown Unknown Verified 11/27/19 07:24 tolterodine [From Detrol] Allergy Unknown Unknown Verified 11/27/19 07:24 aspartame Allergy Verified 11/27/19 07:24 [From Nutrasweet Aspartame] prednisone Allergy Verified 11/27/19 07:24 citalopram [From Celexa] AdvReac Severe Verified 11/27/19 07:24 glyburide AdvReac Intermediate SEVERE Verified 11/27/19 07:24 ABDOMINAL PAIN metformin AdvReac Intermediate SEVERE Verified 11/27/19 07:24 ABDOMINAL PAIN oxycodone AdvReac Intermediate SEVERE Verified 11/27/19 07:24 WITHDRAWAL SYMPTOMS WHEN TRYING TO STOP TAKING paroxetine AdvReac Intermediate DID NOT Verified 11/27/19 07:24 HELP temazepam AdvReac Intermediate DID NOT Verified 11/27/19 07:24 HELP tramadol AdvReac Intermediate Vomiting Verified 11/27/19 07:24 diazepam AdvReac Mild SEDATION Verified 11/27/19 07:24 LASTING TOO LONG meloxicam [From Mobic] AdvReac Mild SICK TO Verified 11/27/19 07:24 STOMACH albuterol AdvReac Unknown UNK Verified 11/27/19 07:24 carbamazepine AdvReac Unknown Unknown Verified 11/27/19 07:24 ibuprofen AdvReac Unknown Unknown Verified 11/27/19 07:24 lisinopril AdvReac Unknown UNK Verified 11/27/19 07:24 mirtazapine AdvReac Unknown Unknown Verified 11/27/19 07:24 olanzapine AdvReac Unknown Unknown Verified 11/27/19 07:24 rofecoxib AdvReac Unknown Unknown Verified 11/27/19 07:24 valproic acid AdvReac Unknown Unknown Verified 11/27/19 07:24 Home Medications Home Medications Medication Instructions Recorded Confirmed Type epinephrine 0.3 mg IM DIRECTED PRN 03/21/19 12/09/19 History clopidogrel 75 mg tablet 75 mg PO QAM #30 tab 03/30/19 12/09/19 Rx cholecalciferol (vitamin D3) 125 5,000 unit PO QAM #30 tab 04/03/19 12/09/19 Rx mcg (5,000 unit) tablet gabapentin 300 mg capsule 600 mg PO BID #60 cap 04/03/19 12/09/19 Rx ketoconazole 2 % shampoo 1 appln TOP Q14D #120 ml 05/29/19 12/09/19 Rx pantoprazole 40 mg tablet,delayed 40 mg PO BID #60 tab 09/04/19 12/09/19 Rx release docusate sodium 100 mg capsule 100 mg PO BID 10/22/19 12/09/19 History escitalopram oxalate 20 mg tablet 20 mg PO HS 10/28/19 12/09/19 History biotin 5,000 mcg PO BID 11/12/19 12/09/19 History coenzyme Q10 200 mg PO QAM 11/12/19 12/09/19 History loperamide 2 mg capsule 4 mg PO .COMPLEX PRN cap 11/14/19 12/09/19 History metoprolol succinate [Toprol XL] 50 mg PO QPM 11/27/19 12/09/19 History acetaminophen 650 mg PO Q4H PRN 12/09/19 12/09/19 History albuterol sulfate [Ventolin HFA] 1 puff INHALATION Q4H PRN 12/09/19 12/09/19 History bisacodyl 10 mg OR DAILY PRN 12/09/19 12/09/19 History diphenhydramine HCl [Benadryl] 25 mg PO HS PRN 12/09/19 12/09/19 History ferrous sulfate 325 mg PO BIDM 12/09/19 12/09/19 History insulin aspart U-100 [Novolog SUBCUT TIDM 12/09/19 History Flexpen U-100 Insulin] insulin glargine [Lantus U-100 25 unit SUBCUT Q12H 12/09/19 12/09/19 History Insulin] insulin regular human [Humulin R 1 sliding scale dose SUBCUT 12/09/19 12/09/19 History Regular U-100 Insuln] USEASDIRECTD loratadine 10 mg PO DAILY PRN 12/09/19 12/09/19 History magnesium hydroxide [Milk of 30 ml PO DAILY PRN 12/09/19 12/09/19 History Magnesia] melatonin 9 mg PO HS PRN 12/09/19 12/09/19 History nitroglycerin 0.4 mg SUBLINGUAL DIRECTED PRN 12/09/19 12/09/19 History oxycodone 5 mg PO Q4H PRN 12/09/19 12/09/19 History polyethylene glycol 3350 [Miralax] 17 g PO QDL PRN 12/09/19 12/09/19 History pravastatin 40 mg PO Q48H 12/09/19 12/09/19 History sennosides-docusate sodium 1 tab PO QDL PRN 12/09/19 12/09/19 History [Senokot-S] sodium phosphates [Fleet Enema] 118 ml OR DAILY PRN 12/09/19 12/09/19 History vitamin A-vitamin C-vit E-min 1 tab PO BID 12/09/19 12/09/19 History [Ocuvite] Past Med/Surg History Medical History Acute hypercapnic respiratory failure 03/2019 [facility] (acute kidney injury) Anxiety and depression Aspiration pneumonia Admitted 03/2019 [facility]. Asthma Per pulmonology 10/10/19, likely NOT asthma but chronic aspiration. Flovert and Spiriva discontinued, pt to use albuterol PRN Breast cancer UNSURE WHICH SIDE WAS CANCER. Chronic back pain Chronic neck pain Chronic pulmonary aspiration 2/2 h/o CVA, CAMRON. CKD (chronic kidney disease) Dyspnea on exertion GERD (gastroesophageal reflux disease) History of benign brain tumor History of dysphagia ESOPHAGEAL DILATION IN PAST History of esophageal dilatation History of spinal stenosis History of uterine cancer Endometrial biopsy revealed endometrioid adenocarcinoma. Status post total abdominal hysterectomy and bilateral salpingo-oophorectomy. Status post completion of radiation therapy with external beam radiation as well as 2 HDR treatments completed 08/15/2013 Hypertension Left pontine stroke 01/2019, on Plavix, following with [facility] neurology. Lymphedema of right arm CHRONIC, 2/2 MASTECTOMY Meningioma R temporal lobe, neurology monitoring. Microcytic anemia Morbid obesity Neuropathy Numb feet, painful radiculopathy in hands from cervical radiculopathy Obesity hypoventilation syndrome Osteoarthritis PAC (premature atrial contraction) PVC (premature ventricular contraction) Severe obstructive sleep apnea CPAP, pt reports compliance Type 2 DM with CKD stage 3 and hypertension Uterine cancer S/P RICHARD BSO WITH RADIATION Surgical History Difficult airway for intubation History of cardiac catheterization NO STENTS History of cataract surgery BILATERAL History of cholecystectomy History of colonoscopy History of esophagogastroduodenoscopy (EGD) History of knee surgery ARTHROSCOPY LEFT KNEE History of mastectomy BILATERAL History of total abdominal hysterectomy BSO Family History Mother Diabetes Myocardial infarction Hypertension Family history of diabetes mellitus Brother Family history of diabetes mellitus Denies family history of Ovarian cancer Prostate cancer Breast cancer Colorectal cancer Social History Smoking Status: Former smoker Age Started Using Tobacco: 15; Age Quit Using Tobacco: 30; packs per day: 1; Second Hand Exposure: No; Do You Dip or Chew Tobacco: No; Hx Alcohol Use: No Hx Substance Use: No Preferred Language: Tunisian Communication Ability: Effective Visual Impairment: Partially Limited Hearing Ability: Hard of Hearing Professor Of Fine Art Required: No Beliefs That Will Affect Care: None marital status: / Current Living Situation: Personal Care Facility Current Living Situation Comment: [facility] in [place] current occupational status: retired Other Information That Helps Us Care for You: No Feels Safe at Home: Yes Safety Concerns: Feels Safe At This Time Childhood Exposure to Second-Hand Smoke: No Dental Care, Regularly: Yes Physical Activity Frequency: Does not Exercise Seatbelt Use: always Sunscreen Use: Yes Review of Systems Review of Systems: Unobtainable due to reduced consciousness Physical Exam Constitutional: WD/WN, vitals as above + acute distress and + morbidly obese Eyes: EOM intact bilaterally; no conjunctival abnormality ENMT: external ear and nose normal, oropharynx normal Neck: trachea midline, no thyromegaly normal visual inspection Respiratory: normal respiratory effort, lungs clear to auscultation no respiratory distress Cardiovascular: RRR, no murmur, no edema Gastrointestinal (Abdomen): Inspection/Auscultation: abdomen normal to inspection; abdomen not distended Musculoskeletal: no cyanosis or clubbing, extremities motor strength 5/5 Skin: no rashes, warm and dry Neurologic: moves all extremities; + not awake Psychiatric: Orientation: cooperative; + not alert and + not oriented to person Results & Data Results & [facility] ([facility]) Vital Signs (Past 12 Hours) Vital Signs Temp Pulse Pulse Resp BP BP Pulse Ox 12/09/19 21:21 36.7 C 77 18 159/75 H 92 12/09/19 21:02 36.7 C 77 18 159/75 H 92 12/09/19 19:55 36.9 C 81 14 144/62 H 98 12/09/19 18:55 36.7 C 82 15 132/63 96 12/09/19 18:25 36.8 C 79 16 123/52 L 98 12/09/19 18:10 37.0 C 82 16 157/77 H 98 12/09/19 18:00 81 16 128/53 L 98 12/09/19 17:48 36.8 C 76 16 128/53 L 100 12/09/19 16:59 73 16 148/66 H 100 12/09/19 15:41 98 12/09/19 15:40 98 12/09/19 15:12 36.7 C 70 16 155/90 H 98 PG Care Time/CCT Total # of Minutes Spent Total Time Spent with Patient: Total time spent is greater than 50% in coordination of care (as documented) at patient's floor/unit and/or counseling patient: Coding Level of Care Code 56147 Initial Inpt Care Lvl 3 Diagnoses Abdominal pain R10.9 Microcytic anemia D50.9 CKD (chronic kidney disease) N18.9 Chronic kidney disease stage: unspecified stage Neurogenic claudication due to lumbar spinal stenosis M48.062 Left pontine stroke I63.50 Aspiration pneumonia J69.0 Aspiration pneumonia type: unspecified Laterality: unspecified laterality Lung location: unspecified part of lung Obesity hypoventilation syndrome E66.2 Hypertension I10 Hypertension type: unspecified GERD (gastroesophageal reflux disease) K21.9 Morbid obesity E66.01 DVT prophylaxis Z29.9 (1) Aspiration pneumonia Aspiration pneumonia type: unspecified Laterality: unspecified laterality Lung location: unspecified part of lung Qualified Code(s): J69.0 - Pneumonitis due to inhalation of food and vomit (2) Hypertension Hypertension type: unspecified Qualified Code(s): I10 - Essential (primary) hypertension (3) CKD (chronic kidney disease) Chronic kidney disease stage: unspecified stage Qualified Code(s): N18.9 - Chronic kidney disease, unspecified
[2019-12-09] MEDS ORDERED: ALBUT/IPRATROP 3MG/0.5MG NEB 3 ML VIAL NEB PRN (22:28)
[2019-12-09] MEDS ORDERED: NORMOSOL-R 500 ML IV ONE (22:31)
[2019-12-10 07:09] LABS: Hematocrit (blood only) 34.6 % (37-47); Hemoglobin 9.9 g/dL (12.0-16.0); Mean Corpuscular Hemoglobin 21.8 pg (25-34); Mean Corpuscular Hgb Conc 28.6 g/dL (32-36); Mean Corpuscular Volume 76.2 fL (80-100); Mean Platelet Volume 9.1 fL (7.4-10.4); Nucleated RBC # (auto) 0.04 K/uL (0-0); Nucleated RBC % (auto) 0.6 %; Platelet Count 238 K/uL (130-400); RDW Coefficient of Variation 15.9 % (11.5-14.5); RDW Standard Deviation 43.9 fL (36.4-46.3); Red Blood Count 4.54 M/uL (4.2-5.4); White Blood Count 6.37 K/uL (4.8-10.8)
--- NOTE | 2019-12-10 07:34 | Ultrasound Report ---
ULTRASOUND RIGHT UPPER QUADRANT ABDOMEN CLINICAL HISTORY: Right upper quadrant abdominal pain. COMPARISON STUDY: Abdominal CT dated 12/09/2019. TECHNIQUE: Real-time, grayscale, and color flow sonography of the right upper quadrant of the abdomen was performed. Images are reviewed in the transverse and longitudinal planes. FINDINGS: Liver: The liver is normal in size and and demonstrates heterogeneously increased echotexture suggest ing steatosis. There is no intrahepatic biliary ductal dilatation. The main portal vein is patent. Gallbladder: The gallbladder is surgically absent. The common bile duct measures up to 0.7 cm in diam eter. Pancreas: Not well visualized due to overlying bowel gas. Right kidney: Survey images of the right kidney demonstrate normal size and echotexture. There is no hydronephrosis. Ascites: None. IMPRESSION: 1. No acute sonographic abnormality is identified in the right upper quadrant noting status post chol ecystectomy. 2. Hepatic steatosis. ACT 112: Negative or not required by law. Electronically signed by: Joey Patterson M.D. 12/10/2019 7:33 AM
[2019-12-10 07:36] LABS: BUN Creatinine Ratio 14.8 (10-20); Calcium 8.6 mg/dl (8.5-10.1); Creatinine Clr Calc Pharmacy 47.3 ml/min; Est GFR (African American) 57.8; Est GFR (Non-African American) 49.9; Magnesium 2.2 mg/dl (1.8-2.4); Potassium 5.2 mmol/L (3.5-5.1)
[2019-12-10 07:52] LABS: Estimated Average Glucose 148 mg/dl; Hemoglobin A1C 6.8 % (4.5-5.6)
[2019-12-10] MEDS: IRON SUCROSE 300 MG in SODIUM CHLORIDE 0.9% 250 ML IV SCH (08:27)
[2019-12-10] MEDS: PANTOprazole 40 MG TAB PO SCH ×2 (08:27→21:10)
[2019-12-10] MEDS: CLOPIDOGREL BISULFATE 75 MG TAB PO SCH (08:28)
[2019-12-10] MEDS: GABAPENTIN 300 MG CAP PO SCH (08:28)
[2019-12-10] MEDS: PRAVASTATIN SOD 40 MG TAB PO SCH (08:28)
[2019-12-10] MEDS: INSULIN GLARGINE SOLOSTAR 100 UNITS/ML 3 ML PEN SQ SCH ×2 (08:29→21:11)
[2019-12-10] MEDS: DOCUSATE SODIUM/SENNA 50/8.6MG TAB PO SCH ×2 (08:29→21:09)
[2019-12-10] MEDS: POLYETHYLENE (MIRALAX) 17 GM PACK PO SCH ×2 (08:29→21:11)
[2019-12-10] MEDS: HEPARIN SOD 5,000 UNIT/0.5 ML VIAL SQ SCH ×2 (08:30→21:10)
[2019-12-10] MEDS: INSULIN ASPART 100 UNITS/ML 3 ML PEN SC SCH ×4 (08:32→21:11)
--- NOTE | 2019-12-10 09:30 | Hospitalist Progress Note ---
Date of Service December 10, 2019 Assessment & Plan (1) Encephalopathy: Patient is altered this afternoon unclear reasons why we will check an ABG and a CT scan of the head. We will check blood cultures and urine culture. Is hard to tell if she did not receive any additional medications. Start for hypercarbia could be had as the patient was requiring BiPAP at one point time. He is also ultrasensitive opiates but she has not received any most recent time (2) Abdominal pain: Main reason to come to the ED. In the right flank/RUQ area with radiation to the center. Has been going on since surgery. No acute pathology on the CT a/p on 12/08. At home have been using oxycodone since discharge. - Will get RUQ u/s to get better look at CBD (had a cholecystectomy per notes) - Otherwise, this could be constipation which is actually being ultimately worsened by the ongoing opioid use; will start significant bowel regimen (3) Microcytic anemia: No indication this is an acute bleed. No sign of bleeding on the CT a/p on 12/08. No melena or bright red blood in stool. Iron studies indicated iron deficiency shortly after her surgery, and she was not given any IV iron per notes. Hemoglobin of 7.7 is much more in line with a gradual decline since surgery. - Given 1 unit PRBCs by the ED - Will order 3 doses of IV iron to help replete iron stores (4) CKD (chronic kidney disease): Baseline Cr ~0,9, CKD Stage III. On admission, acute kidney injury with Cr. 1.3. - Unclear etiology; possibly decreased PO intake from abdominal pain & surgery. - Gentle IV fluids - Monitor Cr (5) Neurogenic claudication due to lumbar spinal stenosis: S/p spinal decompression/fusion T12-L4 with Dr. Rodrigues on 11/26. - Was to see Emily Smith today - Orthopedic consult for routine follow-up - MINIMAL opioid pain regimen -> Daughter reports oxycodone 2.5 mg PO Q4h PRN as effective without causing altered mental status. Additionally, she had respiratory distress after IV opioids after surgery. (6) Left pontine stroke: In 01/2019. Follows with [facility] neurology. 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 - Presently breathing comfortably on room air. - Monitor (8) Obesity hypoventilation syndrome: - Will use BiPap PRN (9) Hypertension: BP presently 160/75. - Continue home beta-andreia (10) GERD (gastroesophageal reflux disease): - Continue PPI BID (11) Morbid obesity: - Psychologist Engineering weight loss - Consider referral to Dr. Lauren on discharge. (12) DVT prophylaxis: Heparin 7500 units SQ Q12h Admission and Anticipated Discharge Date Admission Date: December 09, 2019 Subjective this morning the pt was alert and conversant, she was slow on speech and movement, this afternoon the pt is hallucinating and acting altered, no additional medication outside of her usual home medicines and stool medicines were given. She ate her whole lunch and has a good blood glucose Review of Systems Review of Systems: Moderate distress and confusion now no headache, blurry or double vision no speech or swallowing issues no chest pain, pressure or palpitations no shortness of breath, cough or wheezes Bilateral lower quadrant abdominal pain right greater than left , no nausea or vomiting, diarrhea or constipation no dysuria, hematuria or frequency no focal joint pain or swelling post operative back pain not different than before, CVA tenderness or radicular pain no bruising, bleeding or rashes no focal signs of weakness or numbness or altered sensation no complaints or anxiety or depression. Physical Exam Physical Exam: The patient appeared altered and chronically ill Vital signs as documented. Head exam is normocephalic atraumatic no scleral icterus Neck is without JVD, thyromegaly, or carotid bruits. Lungs are clear to auscultation, no focal loss of breath sounds Cardiac exam, Rhythm is regular.. No murmurs, rubs or gallops. Abdominal exam reveals normal bowel sounds, soft non no right upper quadrant tenderness no rebound no guarding Extremities are nonedematous and both pedal pulses are normal. Neurologic exam is alert he is altered and confused with some hallucinations, no focal loss of strength or sensation Skin is with check of her postoperative wound in the back appears to be typical healing for its age Psychologically is turned for encephalopathy or delirium Results & Data Results & Data ([facility]) Vital Signs (Past 12 Hours) Vital Signs Temp Pulse Pulse Resp BP Pulse Ox 12/10/19 07:10 97.9 F 66 20 119/67 93 12/10/19 03:04 67 18 90 12/09/19 23:08 69 18 92 PG Care Time/CCT Total # of Minutes Spent Total Time Spent with Patient: Total time spent is greater than 50% in coordination of care (as documented) at patient's floor/unit and/or counseling patient: Coding Level of Care Code 72361 Subseq Hosp Care Lvl 3 Diagnoses Encephalopathy G93.40 Abdominal pain R10.9 Microcytic anemia D50.9 CKD (chronic kidney disease) N18.9 Chronic kidney disease stage: unspecified stage Neurogenic claudication due to lumbar spinal stenosis M48.062 Left pontine stroke I63.50 Aspiration pneumonia J69.0 Aspiration pneumonia type: unspecified Laterality: unspecified laterality Lung location: unspecified part of lung Obesity hypoventilation syndrome E66.2 Hypertension I10 Hypertension type: unspecified GERD (gastroesophageal reflux disease) K21.9 Morbid obesity E66.01 DVT prophylaxis Z29.9 (1) CKD (chronic kidney disease) Chronic kidney disease stage: unspecified stage Qualified Code(s): N18.9 - Chronic kidney disease, unspecified (2) Aspiration pneumonia Aspiration pneumonia type: unspecified Laterality: unspecified laterality Lung location: unspecified part of lung Qualified Code(s): J69.0 - Pneumonitis due to inhalation of food and vomit (3) Hypertension Hypertension type: unspecified Qualified Code(s): I10 - Essential (primary) hypertension
[2019-12-10] MEDS ORDERED: MAGNESIUM CITRATE 296 ML/BTL PO STA (11:01)
[2019-12-10] MEDS ORDERED: SOD PHOSPHATE/SOD BIPHOSPHATE ENEMA 132 ML BTL PR PRN (11:03)
[2019-12-10 15:34] LABS: Appearance Urine Clear (Clear); Bacteria Urine Automated Negative (Negative); Bilirubin Urine Negative (Negative); Blood Urine Negative (Negative); Color Urine Yellow; Epithelial Cell Urine Auto >30 /lpf (0-5); Glucose Urine UA Negative (Negative); Ketones Urine Negative (Negative); Leukocyte Esterase Urine Trace (Negative); Nitrite Urine Negative (Negative); Protein Urine Negative (Negative); RBC Urine Automated 0-4 /hpf (0-4); Specific Gravity Urine 1.025 (1.000-1.030); Urobilinogen Urine Negative (Negative)
[2019-12-10] MEDS: ACETAMINOPHEN 325 MG TAB PO PRN (16:17)
[2019-12-10] MEDS: MoRPHine SULFATE 2 MG/ML CARP IV PRN (18:40)
[2019-12-10] MEDS: ESCITALOPRAM OXALATE 20 MG TAB PO SCH (21:10)
[2019-12-10] MEDS: METOPROLOL SUCC 50MG EXT REL TAB PO SCH (21:12)
[2019-12-11] MEDS: MELATONIN 3 MG TAB PO PRN ×2 (00:21→20:42)
[2019-12-11] MEDS: OXYCODONE HCL IR 5 MG TAB (IMMEDIATE RELEASE) PO PRN (01:31)
[2019-12-11] MEDS: MoRPHine SULFATE 2 MG/ML CARP IV PRN ×3 (02:19→18:00)
[2019-12-11] MEDS: IRON SUCROSE 300 MG in SODIUM CHLORIDE 0.9% 250 ML IV SCH (08:57)
[2019-12-11] MEDS: PANTOprazole 40 MG TAB PO SCH ×2 (08:58→23:19)
[2019-12-11] MEDS: DOCUSATE SODIUM/SENNA 50/8.6MG TAB PO SCH ×2 (08:59→20:34)
[2019-12-11] MEDS: INSULIN GLARGINE SOLOSTAR 100 UNITS/ML 3 ML PEN SQ SCH ×2 (09:01→20:29)
[2019-12-11] MEDS: CLOPIDOGREL BISULFATE 75 MG TAB PO SCH (09:01)
[2019-12-11] MEDS: POLYETHYLENE (MIRALAX) 17 GM PACK PO SCH ×2 (09:03→20:32)
[2019-12-11] MEDS: HEPARIN SOD 5,000 UNIT/0.5 ML VIAL SQ SCH ×2 (09:03→20:27)
[2019-12-11] MEDS: INSULIN ASPART 100 UNITS/ML 3 ML PEN SC SCH ×4 (09:05→20:33)
[2019-12-11] MEDS: PRAVASTATIN SOD 40 MG TAB PO SCH (09:06)
[2019-12-11] MEDS: DICLOFENAC SOD 1% GEL 100 GM TUBE EXT SCH ×3 (09:06→20:34)
--- NOTE | 2019-12-11 09:34 | Consultation ---
Date of Consultation December 11, 2019 Assessment & Plan (1) Neurogenic claudication due to lumbar spinal stenosis: From a spine standpoint she seems to be making progress and doing well. We will order thoracolumbar x-rays which are standard at a 2-week postoperative visit to evaluate hardware. Ambulate ad benito. No lifting over 5 pounds. Limited bending and twisting. Upon discharge she should already have 4-week follow-up appointment in our office already made. Supervising Physician Co-Signing Physician Notes Dr. Salazar Rodrigues History of Present Illness Liv is a 79-year-old female well-known to us. She is status post T12-L4 decompression fusion on November [address] Rodrigues. She was supposed to see me in the office 2 days ago today in consultation for her normal 2-week postoperative visit. but unfortunately she did not show. We are asked to see her She reports she is at rehab. She states her back feels great. She states her legs do not have pain when she ambulates now. She is been admitted for abdominal pain. She seems a bit forgetful at times during our conversation.Her nurse reports she had a bowel movement yesterday with improvement of her abdominal pain. Attending Physician: Dyllan Feliciano MD Allergies Allergy/AdvReac Type Severity Reaction Status Date / Time Bactrim Allergy Severe THROAT Verified 05/14/15 15:22 CLOSED celecoxib [From Celebrex] Allergy Severe CAUSED Verified 11/27/19 07:24 STROKE meperidine Allergy Severe almost Verified 11/27/19 07:24 "closed throat" midodrine Allergy Severe "almost Verified 11/27/19 07:24 closed throat" Penicillins Allergy Severe ANAPHYLAXIS Verified 11/27/19 07:24 Quinolones Allergy Severe TOLERATED Verified 11/27/19 07:24 LEVAQUIN IV - SEP 06 sulfamethoxazole Allergy Severe THROAT Verified 11/27/19 07:24 CLOSED trimethoprim Allergy Severe THROAT Verified 11/27/19 07:24 CLOSED diphenoxylate Allergy Intermediate Unknown Verified 11/27/19 07:24 metronidazole [From Flagyl] Allergy Intermediate Hives Verified 11/27/19 07:24 DENILSON Inhibitors Allergy Unknown unknown to Verified 11/27/19 07:24 pt atropine Allergy Unknown Unknown Verified 11/27/19 07:24 carvedilol Allergy Unknown Unknown Verified 11/27/19 07:24 clonazepam [From Klonopin] Allergy Unknown Unknown Verified 11/27/19 07:24 doxycycline Allergy Unknown Unknown Verified 11/27/19 07:24 furosemide [From Lasix] Allergy Unknown Unknown Verified 11/27/19 07:24 Histamine H2 Inhibitors Allergy Unknown unknown to Verified 11/27/19 07:24 pt Iodinated Contrast Media Allergy Unknown JULY 2017 Verified 11/27/19 07:24 [facility] -- TOLERATED WITH SLOW INFUSION PER PATIENT nitrofurantoin Allergy Unknown Unknown Verified 11/27/19 07:24 phenazopyridine Allergy Unknown Unknown Verified 11/27/19 07:24 ranitidine Allergy Unknown Unknown Verified 11/27/19 07:24 repaglinide Allergy Unknown Unknown Verified 11/27/19 07:24 rosiglitazone Allergy Unknown Unknown Verified 11/27/19 07:24 tolterodine [From Detrol] Allergy Unknown Unknown Verified 11/27/19 07:24 aspartame Allergy Verified 11/27/19 07:24 [From Nutrasweet Aspartame] cantaloupe Allergy Verified 12/10/19 18:59 melon Allergy Verified 12/10/19 16:05 prednisone Allergy Verified 11/27/19 07:24 watermelon Allergy Verified 12/10/19 18:59 citalopram [From Celexa] AdvReac Severe Verified 11/27/19 07:24 glyburide AdvReac Intermediate SEVERE Verified 11/27/19 07:24 ABDOMINAL PAIN metformin AdvReac Intermediate SEVERE Verified 11/27/19 07:24 ABDOMINAL PAIN oxycodone AdvReac Intermediate SEVERE Verified 11/27/19 07:24 WITHDRAWAL SYMPTOMS WHEN TRYING TO STOP TAKING paroxetine AdvReac Intermediate DID NOT Verified 11/27/19 07:24 HELP temazepam AdvReac Intermediate DID NOT Verified 11/27/19 07:24 HELP tramadol AdvReac Intermediate Vomiting Verified 11/27/19 07:24 diazepam AdvReac Mild SEDATION Verified 11/27/19 07:24 LASTING TOO LONG meloxicam [From Mobic] AdvReac Mild SICK TO Verified 11/27/19 07:24 STOMACH albuterol AdvReac Unknown UNK Verified 11/27/19 07:24 carbamazepine AdvReac Unknown Unknown Verified 11/27/19 07:24 ibuprofen AdvReac Unknown Unknown Verified 11/27/19 07:24 lisinopril AdvReac Unknown UNK Verified 11/27/19 07:24 mirtazapine AdvReac Unknown Unknown Verified 11/27/19 07:24 olanzapine AdvReac Unknown Unknown Verified 11/27/19 07:24 rofecoxib AdvReac Unknown Unknown Verified 11/27/19 07:24 valproic acid AdvReac Unknown Unknown Verified 11/27/19 07:24 Home Medications Home Medications Medication Instructions Recorded Confirmed Type epinephrine 0.3 mg IM DIRECTED PRN 03/21/19 12/09/19 History clopidogrel 75 mg tablet 75 mg PO QAM #30 tab 03/30/19 12/09/19 Rx cholecalciferol (vitamin D3) 125 5,000 unit PO QAM #30 tab 04/03/19 12/09/19 Rx mcg (5,000 unit) tablet gabapentin 300 mg capsule 600 mg PO BID #60 cap 04/03/19 12/09/19 Rx ketoconazole 2 % shampoo 1 appln TOP Q14D #120 ml 05/29/19 12/09/19 Rx pantoprazole 40 mg tablet,delayed 40 mg PO BID #60 tab 09/04/19 12/09/19 Rx release docusate sodium 100 mg capsule 100 mg PO BID 10/22/19 12/09/19 History escitalopram oxalate 20 mg tablet 20 mg PO HS 10/28/19 12/09/19 History biotin 5,000 mcg PO BID 11/12/19 12/09/19 History coenzyme Q10 200 mg PO QAM 11/12/19 12/09/19 History loperamide 2 mg capsule 4 mg PO .COMPLEX PRN cap 11/14/19 12/09/19 History metoprolol succinate [Toprol XL] 50 mg PO QPM 11/27/19 12/09/19 History acetaminophen 650 mg PO Q4H PRN 12/09/19 12/09/19 History albuterol sulfate [Ventolin HFA] 1 puff INHALATION Q4H PRN 12/09/19 12/09/19 History bisacodyl 10 mg [place] DAILY PRN 12/09/19 12/09/19 History diphenhydramine HCl [Benadryl] 25 mg PO HS PRN 12/09/19 12/09/19 History ferrous sulfate 325 mg PO BIDM 12/09/19 12/09/19 History insulin aspart U-100 [Novolog SUBCUT TIDM 12/09/19 History Flexpen U-100 Insulin] insulin glargine [Lantus U-100 25 unit SUBCUT Q12H 12/09/19 12/09/19 History Insulin] insulin regular human [Humulin R 1 sliding scale dose SUBCUT 12/09/19 12/09/19 History Regular U-100 Insuln] USEASDIRECTD loratadine 10 mg PO DAILY PRN 12/09/19 12/09/19 History magnesium hydroxide [Milk of 30 ml PO DAILY PRN 12/09/19 12/09/19 History Magnesia] melatonin 9 mg PO HS PRN 12/09/19 12/09/19 History nitroglycerin 0.4 mg SUBLINGUAL DIRECTED PRN 12/09/19 12/09/19 History oxycodone 5 mg PO Q4H PRN 12/09/19 12/09/19 History polyethylene glycol 3350 [Miralax] 17 g PO QDL PRN 12/09/19 12/09/19 History pravastatin 40 mg PO Q48H 12/09/19 12/09/19 History sennosides-docusate sodium 1 tab PO QDL PRN 12/09/19 12/09/19 History [Senokot-S] sodium phosphates [Fleet Enema] 118 ml [place] DAILY PRN 12/09/19 12/09/19 History vitamin A-vitamin C-vit E-min 1 tab PO BID 12/09/19 12/09/19 History [Ocuvite] Patient History Medical History Acute hypercapnic respiratory failure 03/2019 [facility] DEB (acute kidney injury) Anxiety and depression Aspiration pneumonia Admitted 03/2019 [facility]. Asthma Per pulmonology 10/10/19, likely NOT asthma but chronic aspiration. Flovert and Spiriva discontinued, pt to use albuterol PRN Breast cancer UNSURE WHICH SIDE WAS CANCER. Chronic back pain Chronic neck pain Chronic pulmonary aspiration 2/2 h/o CVA, CAMRON. CKD (chronic kidney disease) Dyspnea on exertion GERD (gastroesophageal reflux disease) History of benign brain tumor History of dysphagia ESOPHAGEAL DILATION IN PAST History of esophageal dilatation History of spinal stenosis History of uterine cancer Endometrial biopsy revealed endometrioid adenocarcinoma. Status post total abdominal hysterectomy and bilateral salpingo-oophorectomy. Status post completion of radiation therapy with external beam radiation as well as 2 HDR treatments completed 08/15/2013 Hypertension Left pontine stroke 01/2019, on Plavix, following with [facility] neurology. Lymphedema of right arm CHRONIC, 2/2 MASTECTOMY Meningioma R temporal lobe, neurology monitoring. Microcytic anemia Morbid obesity Neuropathy Numb feet, painful radiculopathy in hands from cervical radiculopathy Obesity hypoventilation syndrome Osteoarthritis PAC (premature atrial contraction) PVC (premature ventricular contraction) Severe obstructive sleep apnea CPAP, pt reports compliance Uterine cancer S/P RICHARD BSO WITH RADIATION Surgical History Difficult airway for intubation History of cardiac catheterization NO STENTS History of cataract surgery BILATERAL History of cholecystectomy History of colonoscopy History of esophagogastroduodenoscopy (EGD) History of knee surgery ARTHROSCOPY LEFT KNEE History of mastectomy BILATERAL History of total abdominal hysterectomy BSO Family History Mother Diabetes Myocardial infarction Hypertension Family history of diabetes mellitus Brother Family history of diabetes mellitus Denies family history of Ovarian cancer Prostate cancer Breast cancer Colorectal cancer Social History Smoking Status: Former smoker Age Started Using Tobacco: 15; Age Quit Using Tobacco: 30; packs per day: 1; Second Hand Exposure: No; Do You Dip or Chew Tobacco: No; Hx Alcohol Use: No Hx Substance Use: No Preferred Language: Kazakh Communication Ability: Effective Visual Impairment: Partially Limited Hearing Ability: Hard of Hearing 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 Beliefs That Will Affect Care: None marital status: / Current Living Situation: Personal Care Facility Current Living Situation Comment: [facility] in [place] current occupational status: retired Other Information That Helps Us Care for You: No Feels Safe at Home: Yes Safety Concerns: Feels Safe At This Time Childhood Exposure to Second-Hand Smoke: No Dental Care, Regularly: Yes Physical Activity Frequency: Does not Exercise Seatbelt Use: always Sunscreen Use: Yes Review of Systems Review of Systems: All systems reviewed & are unremarkable except as noted in HPI & below Physical Exam Physical Exam: She is sitting in a chair having coffee. Again a bit forgetful. Speech is appropriate. Lumbar dressing is clean dry and intact. I did remove it for inspection of her incision. An incision has Steri-Strips still on it. Modest edema. Modest ecchymosis. No drainage. No erythema. Calves are soft nontender bilateral lower extremities. Strength is intact bilateral lower extremities. Constitutional: well developed Eyes: normal visual archibald by confrontation ENMT: external ear and nose normal, oropharynx normal Neck: trachea midline Respiratory: normal respiratory effort Cardiovascular: Vessels: dorsalis pedis pulses present Extremities: normal capillary refill Chest (Breasts): Chest: normal inspection of chest Gastrointestinal (Abdomen): Percussion/Palpation: + abdomen tender Musculoskeletal: no cyanosis or clubbing, extremities motor strength 5/5 Skin: no rashes, warm and dry Neurologic: normal touch/pain/proprioception and moves all extremities Psychiatric: Orientation: alert Speech: normal rate/rhythm/volume of speech Results & Data ([facility]) Vital Signs (Past 12 Hours) Vital Signs Temp Pulse Pulse Resp BP Pulse Ox 12/11/19 07:21 36.8 C 66 18 156/75 H 90 12/10/19 23:38 76 18 98 12/10/19 23:23 36.7 C 73 20 118/71 96
--- NOTE | 2019-12-11 11:04 | XRay Report ---
XR thoracolumbar spine 2V CLINICAL HISTORY: post op hardware check COMPARISON STUDY: Lumbar spine MRI May 30, 2019. Fluoroscopic images of the lumbar spine November 27, 2019. FINDINGS: Note is made of a posterior decompression with cortical screw fusion from T12 through L4 wi th interconnecting rods. Hardware is intact. There are no unexpected radiopaque foreign bodies. No fr acture is noted. Marked multilevel disc space narrowing and osteophytosis with facet arthrosis is not ed. There are cholecystectomy clips. IMPRESSION: Expected radiographic findings following T12-L4 posterior decompression and fusion. ACT 112: Negative or not required by law. Electronically signed by: Kirby Anna M.D. 12/11/2019 11:02 AM
[2019-12-11] MEDS: ACETAMINOPHEN 325 MG TAB PO PRN (15:52)
--- NOTE | 2019-12-11 16:22 | Hospitalist Progress Note ---
Date of Service December 11, 2019 Assessment & Plan (1) Encephalopathy: Patient is altered this afternoon unclear reasons why we will check an ABG and a CT scan of the head. The pt did have a urinalysis that was negative. Her daughter relates that she has been taking oxycodone four times a day at home for days since her back surgery, and now we have stopped this at famiy request may have been some opiate withdrawal, did restart some morphine due to intense abdominal pain. her encephalitis is resolved at this time (2) Abdominal pain: Main reason to come to the ED. negative work up so far including Ct abd/pelvis without oral contrast and Liver us, since still significant pain will have CT abd/pelvis with contrast specifically to see appendix (3) Microcytic anemia: No indication this is an acute bleed. No sign of bleeding on the CT a/p on 12/08. No melena or bright red blood in stool. Iron studies indicated iron deficiency shortly after her surgery - Given 1 unit PRBCs by the ED hgb is 9.9 - Will order 3 doses of IV iron to help replete iron stores (4) CKD (chronic kidney disease): Baseline Cr ~0,9, CKD Stage III. On admission, acute kidney injury with Cr. 1.3. resolved (5) Neurogenic claudication due to lumbar spinal stenosis: S/p spinal decompression/fusion T12-L4 with Dr. Rodrigues on 11/26. - Was to see Emily Smith today - Orthopedic consult for routine follow-up - MINIMAL opioid pain regimen -> Daughter reports oxycodone 2.5 mg PO Q4h PRN as effective without causing altered mental status. Additionally, she had respiratory distress after IV opioids after surgery. (6) Left pontine stroke: In 01/2019. Follows with [facility] [place] [place] neurology. 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 aspiration pneumonia has been ruled out (8) Obesity hypoventilation syndrome: - Will use BiPap PRN (9) Hypertension: BP presently 160/75. 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 With examination no real guarding or rebound tenderness this continues to be the significant complaint of hers. Patient has had bowel movement with production of stool over the last 2 days despite the production of bowel movement she continues to have significant pain complaints Review of Systems Review of Systems: Moderate distress and confusion now no headache, blurry or double vision no speech or swallowing issues no chest pain, pressure or palpitations no shortness of breath, cough or wheezes Bilateral lower quadrant abdominal pain right greater than left , no nausea or vomiting, diarrhea or constipation no dysuria, hematuria or frequency no focal joint pain or swelling post operative back pain not different than before, CVA tenderness or radicular pain no bruising, bleeding or rashes no focal signs of weakness or numbness or altered sensation no complaints or anxiety or depression. Physical Exam Physical Exam: The patient appeared altered and chronically ill Vital signs as documented. Head exam is normocephalic atraumatic no scleral icterus has strabismus to right eye Neck is without JVD, thyromegaly, or carotid bruits. Lungs are clear to auscultation, no focal loss of breath sounds Cardiac exam, Rhythm is regular.. No murmurs, rubs or gallops. Abdominal exam reveals normal bowel sounds, soft continues with significant RLQ tenderness but no right upper quadrant tenderness no rebound slight guarding Extremities are nonedematous and both pedal pulses are normal. Neurologic exam is alert he is altered and confused with some hallucinations, no focal loss of strength or sensation Skin is with check of her postoperative wound in the back appears to be typical healing for its age Psychologically is turned for encephalopathy or delirium Results & Data Results & Data ([facility] [place]) Vital Signs (Past 12 Hours) Vital Signs Temp Pulse Resp BP Pulse Ox 12/11/19 15:03 98.6 F 69 18 156/71 H 94 12/11/19 07:21 98.2 F 66 18 156/75 H 90 PG Care Time/CCT Total # of Minutes Spent Total Time Spent with Patient: Total time spent is greater than 50% in coordination of care (as documented) at patient's floor/unit and/or counseling patient: Coding Level of Care Code 06534 Subseq Hosp Care Lvl 3 Diagnoses Encephalopathy G93.40 Abdominal pain R10.9 Microcytic anemia D50.9 CKD (chronic kidney disease) N18.9 Chronic kidney disease stage: unspecified stage Neurogenic claudication due to lumbar spinal stenosis M48.062 Left pontine stroke I63.50 Aspiration pneumonia J69.0 Aspiration pneumonia type: unspecified Laterality: unspecified laterality Lung location: unspecified part of lung Obesity hypoventilation syndrome E66.2 Hypertension I10 Hypertension type: unspecified GERD (gastroesophageal reflux disease) K21.9 Morbid obesity E66.01 DVT prophylaxis Z29.9 (1) CKD (chronic kidney disease) Chronic kidney disease stage: unspecified stage Qualified Code(s): N18.9 - Chronic kidney disease, unspecified (2) Aspiration pneumonia Aspiration pneumonia type: unspecified Laterality: unspecified laterality Lung location: unspecified part of lung Qualified Code(s): J69.0 - Pneumonitis due to inhalation of food and vomit (3) Hypertension Hypertension type: unspecified Qualified Code(s): I10 - Essential (primary) hypertension
--- NOTE | 2019-12-11 16:40 | CT Scan Report ---
ABDOMEN AND PELVIS CT WITH ORAL CONTRAST CT DOSE: 1027.96 mGycm HISTORY: persistent significant RLQ pain eval appy TECHNIQUE: Multiaxial CT images of the abdomen and pelvis were performed following the use of oral co ntrast. A dose lowering technique was utilized adhering to the principles of ALARA. COMPARISON STUDY: Abdomen and pelvis CT 12/09/2019. FINDINGS: No pneumatosis, free air or portal venous gas is present. No hepatic masses. There is no pe ripancreatic infiltration. The spleen and adrenal glands are unremarkable. Innumerable bilateral kt l lesions are incompletely characterized on this noncontrast study but favor cysts. Note is made of a 3 cm left renal cyst. There is no hydronephrosis. There is no evidence for a bowel obstruction. The appendix is normal. There is a moderate amount of stool within the colon. No bowel wall thickening is noted. There is no lymphadenopathy. A posterior decompression is noted. There is bilateral pedicle s crew fusion from T12 through L4. There is joint space narrowing with sclerosis centered at the L1-L2 disc space. This remains unchanged. No acute fracture is noted. Trace gas within the bladder lumen li lisa due to prior catheterization. Prior hysterectomy and cholecystectomy. Small amount of gas at the thoracolumbar spine operative bed remains unchanged and is likely postoperative. IMPRESSION: 1. No change compared to prior study. No acute process within the abdomen or pelvis. 2. No bowel obstruction. Normal appendix. No bowel wall thickening. 3. Postoperative findings within the thoracolumbar spine. Small amount of gas within the operative be d which is likely postsurgical. 4. Joint space narrowing with endplate irregularity centered at the L1-L2 disc space, unchanged since chest CT of November 25, 2019. This is likely degenerative. An infectious process could appear similar but is considered less likely. 5. Trace gas within the bladder lumen. This may be due to recent catheterization. ACT 112: Negative or not required by law. Electronically signed by: Javy Mcdaniel M.D. 12/11/2019 4:39 PM
[2019-12-11] MEDS: ESCITALOPRAM OXALATE 20 MG TAB PO SCH (20:32)
[2019-12-11] MEDS: METOPROLOL SUCC 50MG EXT REL TAB PO SCH (20:34)
[2019-12-12] MEDS: OXYCODONE HCL IR 5 MG TAB (IMMEDIATE RELEASE) PO PRN (00:51)
--- NOTE | 2019-12-12 04:35 | Emergency Department Note ---
History of Present Illness General Chief complaint: Abdominal Pain Time Seen by Provider: 12/09/19 15:24 Source: patient, family, RN notes reviewed and old records reviewed Mode of arrival: ambulatory Limitations: no limitations History of Present Illness Provider complaint: Weakness, abd pain Onset (ago): day(s) 1 Location: abdomen Severity: moderate Pain Consistency: + intermittent and + colicky Maximum Pain Intensity: 7 Current Pain Intensity: 7 Quality: + aching Relieved By: + immobilization Exacerbated By: + movement Associated symptoms: + weakness; no chest pain, no fever/chills, no nausea/vomiting and no shortness of breath Treatments prior to arrival: none This is a 79-year-old female who presents emergency department complaining of generalized weakness. The patient recently had spine surgery and was sent in by her spine surgeon. The patient herself is complaining of abdominal pain. She describes the pain as a burning sensation that radiates into her back. She has not taken anything for the pain. Home Medications Home Medications Medication Instructions Recorded Confirmed Type epinephrine 0.3 mg IM DIRECTED PRN 03/21/19 12/09/19 History clopidogrel 75 mg tablet 75 mg PO QAM #30 tab 03/30/19 12/09/19 Rx cholecalciferol (vitamin D3) 125 5,000 unit PO QAM #30 tab 04/03/19 12/09/19 Rx mcg (5,000 unit) tablet gabapentin 300 mg capsule 600 mg PO BID #60 cap 04/03/19 12/09/19 Rx ketoconazole 2 % shampoo 1 appln TOP Q14D #120 ml 05/29/19 12/09/19 Rx pantoprazole 40 mg tablet,delayed 40 mg PO BID #60 tab 09/04/19 12/09/19 Rx release docusate sodium 100 mg capsule 100 mg PO BID 10/22/19 12/09/19 History escitalopram oxalate 20 mg tablet 20 mg PO HS 10/28/19 12/09/19 History biotin 5,000 mcg PO BID 11/12/19 12/09/19 History coenzyme Q10 200 mg PO QAM 11/12/19 12/09/19 History loperamide 2 mg capsule 4 mg PO .COMPLEX PRN cap 11/14/19 12/09/19 History metoprolol succinate [Toprol XL] 50 mg PO QPM 11/27/19 12/09/19 History acetaminophen 650 mg PO Q4H PRN 12/09/19 12/09/19 History albuterol sulfate [Ventolin HFA] 1 puff INHALATION Q4H PRN 12/09/19 12/09/19 History bisacodyl 10 mg NJ DAILY PRN 12/09/19 12/09/19 History diphenhydramine HCl [Benadryl] 25 mg PO HS PRN 12/09/19 12/09/19 History ferrous sulfate 325 mg PO BIDM 12/09/19 12/09/19 History insulin aspart U-100 [Novolog SUBCUT TIDM 12/09/19 History Flexpen U-100 Insulin] insulin glargine [Lantus U-100 25 unit SUBCUT Q12H 12/09/19 12/09/19 History Insulin] insulin regular human [Humulin R 1 sliding scale dose SUBCUT 12/09/19 12/09/19 History Regular U-100 Insuln] USEASDIRECTD loratadine 10 mg PO DAILY PRN 12/09/19 12/09/19 History magnesium hydroxide [Milk of 30 ml PO DAILY PRN 12/09/19 12/09/19 History Magnesia] melatonin 9 mg PO HS PRN 12/09/19 12/09/19 History nitroglycerin 0.4 mg SUBLINGUAL DIRECTED PRN 12/09/19 12/09/19 History oxycodone 5 mg PO Q4H PRN 12/09/19 12/09/19 History polyethylene glycol 3350 [Miralax] 17 g PO QDL PRN 12/09/19 12/09/19 History pravastatin 40 mg PO Q48H 12/09/19 12/09/19 History sennosides-docusate sodium 1 tab PO QDL PRN 12/09/19 12/09/19 History [Senokot-S] sodium phosphates [Fleet Enema] 118 ml NJ DAILY PRN 12/09/19 12/09/19 History vitamin A-vitamin C-vit E-min 1 tab PO BID 12/09/19 12/09/19 History [Ocuvite] Allergies Allergy/AdvReac Type Severity Reaction Status Date / Time Bactrim Allergy Severe THROAT Verified 05/14/15 15:22 CLOSED celecoxib [From Celebrex] Allergy Severe CAUSED Verified 11/27/19 07:24 STROKE meperidine Allergy Severe almost Verified 11/27/19 07:24 "closed throat" midodrine Allergy Severe "almost Verified 11/27/19 07:24 closed throat" Penicillins Allergy Severe ANAPHYLAXIS Verified 11/27/19 07:24 Quinolones Allergy Severe TOLERATED Verified 11/27/19 07:24 LEVAQUIN IV - ELIO 07 sulfamethoxazole Allergy Severe THROAT Verified 11/27/19 07:24 CLOSED trimethoprim Allergy Severe THROAT Verified 11/27/19 07:24 CLOSED diphenoxylate Allergy Intermediate Unknown Verified 11/27/19 07:24 metronidazole [From Flagyl] Allergy Intermediate Hives Verified 11/27/19 07:24 DENILSON Inhibitors Allergy Unknown unknown to Verified 11/27/19 07:24 pt atropine Allergy Unknown Unknown Verified 11/27/19 07:24 carvedilol Allergy Unknown Unknown Verified 11/27/19 07:24 clonazepam [From Klonopin] Allergy Unknown Unknown Verified 11/27/19 07:24 doxycycline Allergy Unknown Unknown Verified 11/27/19 07:24 furosemide [From Lasix] Allergy Unknown Unknown Verified 11/27/19 07:24 Histamine H2 Inhibitors Allergy Unknown unknown to Verified 11/27/19 07:24 pt Iodinated Contrast Media Allergy Unknown JULY 2017 Verified 11/27/19 07:24 [facility] -- TOLERATED WITH SLOW INFUSION PER PATIENT nitrofurantoin Allergy Unknown Unknown Verified 11/27/19 07:24 phenazopyridine Allergy Unknown Unknown Verified 11/27/19 07:24 ranitidine Allergy Unknown Unknown Verified 11/27/19 07:24 repaglinide Allergy Unknown Unknown Verified 11/27/19 07:24 rosiglitazone Allergy Unknown Unknown Verified 11/27/19 07:24 tolterodine [From Detrol] Allergy Unknown Unknown Verified 11/27/19 07:24 aspartame Allergy Verified 11/27/19 07:24 [From Nutrasweet Aspartame] cantaloupe Allergy Verified 12/10/19 18:59 melon Allergy Verified 12/10/19 16:05 prednisone Allergy Verified 11/27/19 07:24 watermelon Allergy Verified 12/10/19 18:59 citalopram [From Celexa] AdvReac Severe Verified 11/27/19 07:24 glyburide AdvReac Intermediate SEVERE Verified 11/27/19 07:24 ABDOMINAL PAIN metformin AdvReac Intermediate SEVERE Verified 11/27/19 07:24 ABDOMINAL PAIN oxycodone AdvReac Intermediate SEVERE Verified 11/27/19 07:24 WITHDRAWAL SYMPTOMS WHEN TRYING TO STOP TAKING paroxetine AdvReac Intermediate DID NOT Verified 11/27/19 07:24 HELP temazepam AdvReac Intermediate DID NOT Verified 11/27/19 07:24 HELP tramadol AdvReac Intermediate Vomiting Verified 11/27/19 07:24 diazepam AdvReac Mild SEDATION Verified 11/27/19 07:24 LASTING TOO LONG meloxicam [From Mobic] AdvReac Mild SICK TO Verified 11/27/19 07:24 STOMACH albuterol AdvReac Unknown UNK Verified 11/27/19 07:24 carbamazepine AdvReac Unknown Unknown Verified 11/27/19 07:24 ibuprofen AdvReac Unknown Unknown Verified 11/27/19 07:24 lisinopril AdvReac Unknown UNK Verified 11/27/19 07:24 mirtazapine AdvReac Unknown Unknown Verified 11/27/19 07:24 olanzapine AdvReac Unknown Unknown Verified 11/27/19 07:24 rofecoxib AdvReac Unknown Unknown Verified 11/27/19 07:24 valproic acid AdvReac Unknown Unknown Verified 11/27/19 07:24 Past Med/Surg History Medical History Acute hypercapnic respiratory failure 03/2019 [facility] DEB (acute kidney injury) Anxiety and depression Aspiration pneumonia Admitted 03/2019 [facility]. Asthma Per pulmonology 10/10/19, likely NOT asthma but chronic aspiration. Flovert and Spiriva discontinued, pt to use albuterol PRN Breast cancer UNSURE WHICH SIDE WAS CANCER. Chronic back pain Chronic neck pain Chronic pulmonary aspiration 2/2 h/o CVA, [facility]. CKD (chronic kidney disease) Dyspnea on exertion GERD (gastroesophageal reflux disease) History of benign brain tumor History of dysphagia ESOPHAGEAL DILATION IN PAST History of esophageal dilatation History of spinal stenosis History of uterine cancer Endometrial biopsy revealed endometrioid adenocarcinoma. Status post total abdominal hysterectomy and bilateral salpingo-oophorectomy. Status post completion of radiation therapy with external beam radiation as well as 2 HDR treatments completed 08/15/2013 Hypertension Left pontine stroke 01/2019, on Plavix, [place] [facility] [place]. Lymphedema of right arm CHRONIC, 2/2 MASTECTOMY Meningioma R temporal lobe, neurology monitoring. Microcytic anemia Morbid obesity Neuropathy Numb feet, painful radiculopathy in hands from cervical radiculopathy Obesity hypoventilation syndrome Osteoarthritis PAC (premature atrial contraction) PVC (premature ventricular contraction) Severe obstructive sleep apnea CPAP, pt reports compliance Uterine cancer S/P RICHARD BSO WITH RADIATION Surgical History Difficult airway for intubation History of cardiac catheterization NO STENTS History of cataract surgery BILATERAL History of cholecystectomy History of colonoscopy History of esophagogastroduodenoscopy (EGD) History of knee surgery ARTHROSCOPY LEFT KNEE History of mastectomy BILATERAL History of total abdominal hysterectomy BSO Family History Mother Diabetes Myocardial infarction Hypertension Family history of diabetes mellitus Brother Family history of diabetes mellitus Denies family history of Ovarian cancer Prostate cancer Breast cancer Colorectal cancer Social History Smoking Status: Former smoker Age Started Using Tobacco: 15; Age Quit Using Tobacco: 30; packs per day: 1; Second Hand Exposure: No; Do You Dip or Chew Tobacco: No; Hx Alcohol Use: No Hx Substance Use: No Preferred Language: Syriac Communication Ability: Effective Visual Impairment: Partially Limited Hearing Ability: Hard of Hearing Cylindrical Mixer Required: No Beliefs That Will Affect Care: None marital status: / Current Living Situation: Personal Care Facility Current Living Situation Comment: [facility] in [place] current occupational status: retired Other Information That Helps Us Care for You: No Feels Safe at Home: Yes Safety Concerns: Feels Safe At This Time Childhood Exposure to Second-Hand Smoke: No Dental Care, Regularly: Yes Physical Activity Frequency: Does not Exercise Seatbelt Use: always Sunscreen Use: Yes Review of Systems A total of 10 systems reviewed and were otherwise negative Physical Exam VITAL SIGNS - Vital signs and nursing notes were reviewed. GENERAL - 79-year-old female appearing stated age who is in no acute distress. Communicates well with provider and answers questions appropriately. SKIN - Without rashes. HEAD - NC/AT. EYES - PERRL with EOMI bilaterally. Sclera anicteric. Palpebral conjunctiva pink and moist with no injection noted. EARS - No deformities of external structures noted on gross examination bilaterally. No pain elicited with palpation of the tragus bilaterally. External auditory canals without discharge or otorrhea. Tympanic membranes pearly kulkarni without retraction or bulging. No fluid or purulent material visualized behind the TM. Handle of malleus, umbo, cone of light, pars tensa/flaccid all easily visualized. NOSE - Midline and without cyanosis. No epistaxis or purulent drainage noted. Septum midline without deviation or septal hematoma noted. MOUTH/OROPHARYNX - Without perioral cyanosis. Buccal mucosa pink and moist and without leukoplakia. Tongue midline with equal elevation of palate bilaterally. No tonsillar hypertrophy, erythema, or exudates noted. dentition noted. NECK - Neck with FROM. Supple to palpation. lymphadenopathy noted. No nuchal rigidity. LUNGS - Chest wall symmetric without accessory muscle use, intercostals retractions, or central cyanosis. Normal vesicular breath sounds CTA B/L. No wheezes, rales, or rhonchi appreciated. CARDIAC - RRR with S1/S2. No murmur, rubs, or gallops appreciated. ABDOMEN - Abdominal contour without pulsations or visible masses. BS normoactive all four quadrants. No tenderness, palpable masses, hepatosplenomegaly, or ascites noted. RECTAL: Heme Negative EXTREMITIES - No clubbing or peripheral cyanosis. No pretibial edema present. +3/5 radial, posterior tibial, and dorsalis pedis pulses palpated throughout. +5/5 strength noted in UE/LE bilaterally. NEUROLOGIC - Cranial nerves II through XII grossly intact. Sensory intact to light touch throughout. Patellar reflexes +2/4. PSYCH - A&Ox3 and cooperates fully with examiner. Pt is very pleasant and interacts well with examiner. Course Administered Medications Acetaminophen (Acetaminophen 325 Mg Tab) 650 mg PO Q4H PRN PRN Reason: pain/fever Stop: 01/08/20 20:47 Last Admin: 12/11/19 15:52 Dose: 650 mg Documented by: [id number] Admin: 12/10/19 16:17 Dose: 650 mg Documented by: [id number] Clopidogrel Bisulfate (Clopidogrel Bisulfate 75 Mg Tab) [facility] Stop: 01/09/20 08:59 Last Admin: 12/11/19 09:01 Dose: 75 mg Documented by: [id number] Admin: 12/10/19 08:28 Dose: 75 mg Documented by: [id number] Diclofenac Sodium (Diclofenac Sod 1% Gel 100 Gm Tube) 4 gm EXT TID SHARMILA Stop: 01/10/20 08:59 Last Admin: 12/11/19 20:34 Dose: 4 gm Documented by: [id number] Admin: 12/11/19 13:53 Dose: Not Given Documented by: [id number] Admin: 12/11/19 09:06 Dose: 4 gm Documented by: [id number] Escitalopram Oxalate (Escitalopram Oxalate 20 Mg Tab) 20 mg PO QPM SHARMILA Stop: 01/08/20 20:59 Last Admin: 12/11/19 20:32 Dose: 20 mg Documented by: [id number] Admin: 12/10/19 21:10 Dose: 20 mg Documented by: [id number] Admin: 12/09/19 21:26 Dose: 20 mg Documented by: [id number] Gabapentin (Gabapentin 300 Mg Cap) 600 mg PO BID SHARMILA Stop: 01/08/20 20:59 Last Admin: 12/10/19 08:28 Dose: 600 mg Documented by: [id number] Admin: 12/09/19 21:26 Dose: 600 mg Documented by: [id number] Heparin Sodium (Porcine) (Heparin Sod 5,000 Unit/0.5 Ml Vial) 7,500 units SQ Q12 SHARMILA Stop: 01/09/20 08:59 Last Admin: 12/11/19 20:27 Dose: 7,500 units Documented by: [id number] Cosigned by: [id number] Admin: 12/11/19 09:03 Dose: 7,500 units Documented by: [id number] Cosigned by: [id number] Admin: 12/10/19 21:10 Dose: 7,500 units Documented by: [id number] Cosigned by: [id number] Admin: 12/10/19 08:30 Dose: 7,500 units Documented by: [id number] Cosigned by: [id number] Iron Sucrose 300 mg/ Sodium (Chloride) 265 mls @ 176.667 mls/hr IV DAILY SHARMILA Stop: 12/12/19 10:29 Last Infusion: 12/11/19 10:35 Dose: 0 mls/hr Documented by: [id number] Admin: 12/11/19 08:57 Dose: 177 mls/hr Documented by: [id number] Infusion: 12/10/19 09:40 Dose: 0 mls/hr Documented by: [id number] Admin: 12/10/19 08:27 Dose: 176.7 mls/hr Documented by: [id number] Insulin Aspart (Insulin Aspart 100 Units/Ml 3 Ml Pen) 0 units SC ACHS SHARMILA Stop: 01/08/20 20:59 Last Admin: 12/11/19 20:33 Dose: Not Given Documented by: [id number] Cosigned by: [id number] Admin: 12/11/19 17:57 Dose: 5 units Documented by: [id number] Cosigned by: [id number] Admin: 12/11/19 12:43 Dose: Not Given Documented by: [id number] Cosigned by: [id number] Admin: 12/11/19 09:05 Dose: 3 units Documented by: [id number] Cosigned by: [id number] Admin: 12/10/19 21:11 Dose: Not Given Documented by: [id number] Cosigned by: [id number] Admin: 12/10/19 17:59 Dose: Not Given Documented by: [id number] Cosigned by: [id number] Admin: 12/10/19 13:05 Dose: 8 units Documented by: [id number] Cosigned by: [id number] Admin: 12/10/19 08:32 Dose: 6 units Documented by: [id number] Cosigned by: [id number] Admin: 12/09/19 21:32 Dose: 4 units Documented by: [id number] Cosigned by: [id number] Insulin Glargine (Insulin Glargine Solostar 100 Units/Ml 3 Ml Pen) 30 units SQ BID SHARMILA Stop: 01/08/20 20:59 Last Admin: 12/11/19 20:29 Dose: 30 units Documented by: [id number] Cosigned by: [id number] Admin: 12/11/19 09:01 Dose: 30 units Documented by: [id number] Cosigned by: [id number] Admin: 12/10/19 21:11 Dose: 30 units Documented by: [id number] Cosigned by: [id number] Admin: 12/10/19 08:29 Dose: 30 units Documented by: [id number] Cosigned by: [id number] Admin: 12/09/19 21:31 Dose: 30 units Documented by: [id number] Cosigned by: [id number] Melatonin (Melatonin 3 Mg Tab) 3 mg PO HS PRN PRN Reason: Sleep Stop: 01/09/20 23:46 Last Admin: 12/11/19 20:42 Dose: 3 mg Documented by: [id number] Admin: 12/11/19 00:21 Dose: 3 mg Documented by: [id number] Metoprolol Succinate (Metoprolol Succ 50mg Ext Rel Tab) 50 mg PO QPM SHARMILA Stop: 01/08/20 20:59 Last Admin: 12/11/19 20:34 Dose: 50 mg Documented by: [id number] Admin: 12/10/19 21:12 Dose: 50 mg Documented by: [id number] Admin: 12/09/19 21:27 Dose: 50 mg Documented by: [id number] Morphine Sulfate (Morphine Sulfate 2 Mg/Ml Carp) 2 mg IV Q4 PRN PRN Reason: Pain Stop: 12/24/19 18:07 Last Admin: 12/11/19 18:00 Dose: 2 mg Documented by: [id number] Admin: 12/11/19 06:43 Dose: 2 mg Documented by: [id number] Admin: 12/11/19 02:19 Dose: 2 mg Documented by: [id number] Admin: 12/10/19 18:40 Dose: 2 mg Documented by: [id number] Oxycodone HCl (Oxycodone Hcl Ir 5 Mg Tab (Immediate Release)) 2.5 mg PO Q6H PRN PRN Reason: Pain Stop: 12/23/19 20:58 Last Admin: 12/12/19 00:51 Dose: 2.5 mg Documented by: [id number] Admin: 12/11/19 01:31 Dose: 2.5 mg Documented by: [id number] Pantoprazole Sodium (Pantoprazole 40 Mg Tab) 40 mg PO BID SHARMILA Stop: 01/08/20 20:59 Last Admin: 12/11/19 23:19 Dose: 40 mg Documented by: [id number] Admin: 12/11/19 08:58 Dose: 40 mg Documented by: [id number] Admin: 12/10/19 21:10 Dose: 40 mg Documented by: [id number] Admin: 12/10/19 08:27 Dose: 40 mg Documented by: [id number] Admin: 12/09/19 21:27 Dose: 40 mg Documented by: [id number] Polyethylene Glycol (Polyethylene (Miralax) 17 Gm Pack) 17 gm PO BID SHARMILA Stop: 01/09/20 08:59 Last Admin: 12/11/19 20:32 Dose: Not Given Documented by: [id number] Admin: 12/11/19 09:03 Dose: 17 gm Documented by: [id number] Admin: 12/10/19 21:11 Dose: Not Given Documented by: [id number] Admin: 12/10/19 08:29 Dose: 17 gm Documented by: [id number] Senna/Docusate Sodium (Docusate Sodium/Senna 50/8.6mg Tab) 2 tab PO BID SHARMILA Stop: 01/09/20 08:59 Last Admin: 12/11/19 20:34 Dose: 2 tab Documented by: [id number] Admin: 12/11/19 08:59 Dose: 2 tab Documented by: [id number] Admin: 12/10/19 21:09 Dose: 2 tab Documented by: [id number] Admin: 12/10/19 08:29 Dose: 2 tab Documented by: [id number] Discontinued Medications Diphenhydramine HCl (Diphenhydramine Hcl 50 Mg/Ml Vial) 50 mg IV NOW STA Stop: 12/09/19 15:59 Last Admin: 12/09/19 16:26 Dose: 50 mg Documented by: [id number] Famotidine (Famotidine 20mg/5ml Iv Push) Confirm Administered Dose 20 mg IV .STK-MED ONE Stop: 12/09/19 19:07 Last Admin: 12/09/19 19:12 Dose: 20 mg Documented by: [id number] Sodium Chloride (Nss 1000ml) 1,000 mls @ 999 mls/hr IV .Q1H1M ONE Stop: 12/09/19 16:43 Last Infusion: 12/09/19 17:47 Dose: 0 mls/hr Documented by: [id number] Admin: 12/09/19 16:26 Dose: 999 mls/hr Documented by: [id number] Famotidine 20 mg/ Syringe 5 mls @ 2.5 mls/min IV NOW STA Stop: 12/09/19 16:01 Last Admin: 12/09/19 19:12 Dose: Not Given Documented by: [id number] Sodium Chloride (Nss) 250 mls @ 15 mls/hr IV .W11C10A PRN PRN Reason: For Transfusion Stop: 12/10/19 02:07 Last Infusion: 12/10/19 05:23 Dose: 0 mls/hr Documented by: [id number] Admin: 12/09/19 17:47 Dose: 15 mls/hr Documented by: [id number] Dextrose (D10w) 1,000 mls @ 125 mls/hr IV .Q8H SHARMILA Stop: 01/08/20 16:44 Last Infusion: 12/09/19 22:36 Dose: 0 mls/hr Documented by: [id number] Admin: 12/09/19 16:56 Dose: 125 mls/hr Documented by: [id number] Parenteral Electrolytes (Normosol-R) 500 mls @ 100 mls/hr IV .Q5H ONE Stop: 12/10/19 03:30 Last Infusion: 12/10/19 05:22 Dose: 0 mls/hr Documented by: [id number] Admin: 12/09/19 23:32 Dose: 100 mls/hr Documented by: [id number] Ioversol (Ioversol 100ml) 94 ml IV ONCE ONE Stop: 12/09/19 17:24 Last Admin: 12/09/19 17:24 Dose: 94 ml Documented by: [id number] Magnesium Citrate (Magnesium Citrate 296 Ml/Btl) 296 ml PO NOW STA Stop: 12/10/19 11:02 Last Admin: 12/10/19 11:52 Dose: 296 ml Documented by: [id number] Methylprednisolone (Methylprednisolone 125 Mg/2 Ml Vial) 125 mg IV NOW STA Stop: 12/09/19 15:59 Last Admin: 12/09/19 16:26 Dose: 125 mg Documented by: [id number] Morphine Sulfate (Morphine Sulfate 10 Mg/Ml Carp/Vial) 6 mg IV NOW STA Stop: 12/09/19 15:49 Last Admin: 12/09/19 16:26 Dose: 6 mg Documented by: [id number] Ondansetron HCl (Ondansetron Inj 2 Mg/Ml 2 Ml Vial) 4 mg IV NOW STA Stop: 12/09/19 15:43 Last Admin: 12/09/19 16:26 Dose: 4 mg Documented by: [id number] Pravastatin Sodium (Pravastatin Sod 40 Mg Tab) 40 mg PO DAILY SAHRMILA Stop: 01/09/20 08:59 Last Admin: 12/11/19 09:06 Dose: Not Given Documented by: [id number] Admin: 12/10/19 08:28 Dose: 40 mg Documented by: [id number] Medical Decision Making Differential Diagnosis Infection, dehydration, metabolic abnormality, hypo/hyperglycemia, electrolyte disturbance, anemia, hypoxia, cardiac sources, intracerebral event, toxicologic, neurologic, as well as other pathologies. Medical Records Attestation: I reviewed the patient's medical records. Home Medications Current Medication List: was personally reviewed by me Laboratory Data Attestation: I reviewed the patient's lab results. Result diagrams: 12/10/19 06:05 12/10/19 06:05 Lab Results 12/09/19 12/09/19 12/09/19 Range/Units 15:57 15:57 16:05 WBC 5.88 (4.8-10.8) K/uL RBC 3.55 L (4.2-5.4) M/uL Hgb 7.7 L (12.0-16.0) g/dL POC Hgb 7.8 L (12.0-16.0) g/dl Hct 26.1 L (37-47) % POC Hct 23 L (37-47) % MCV 73.5 L (80-100) fL MCH 21.7 L (25-34) pg MCHC 29.5 L (32-36) g/dL RDW Std Deviation 41.5 (36.4-46.3) fL RDW Coeff of Tim 15.5 H (11.5-14.5) % Plt Count 224 (130-400) K/uL MPV 9.0 (7.4-10.4) fL Immature Gran % (Auto) 1.0 % Neut % (Auto) 73.0 % Lymph % (Auto) 17.3 % [place] % (Auto) 6.0 % Eos % (Auto) 2.4 % Baso % (Auto) 0.3 % Neut # (Auto) 4.29 (1.4-6.5) K/uL Lymph # (Auto) 1.02 L (1.2-3.4) K/uL [place] # (Auto) 0.35 (0.11-0.59) K/uL Eos # (Auto) 0.14 (0-0.5) K/uL Baso # (Auto) 0.02 (0-0.2) K/uL Immature Gran # (Auto) 0.06 H (0.00-0.02) K/uL Hypochromasia Present POC Sodium 139 (135-144) mmol/L Sodium 139 (136-145) mmol/L POC Potassium 4.2 (3.3-5.0) mmol/L Potassium 4.2 (3.5-5.1) mmol/L POC Chloride 100 L (101-112) mmol/L Chloride 105 (98-107) mmol/L Carbon Dioxide 28 (21-32) mmol/L POC Total CO2 28 (24-31) mmol/L Anion Gap 6.0 (3-11) POC Anion Gap 16.0 (16-25) mmol/L POC BUN 18 (7-18) mg/dl BUN 17 (7-18) mg/dl Creatinine 1.30 H (0.6-1.2) mg/dl POC Creatinine 1.2 (0.6-1.3) mg/dl Est Cr Clr Drug Dosing 38.6 ml/min Est GFR ( Amer) 45.2 Est GFR (Non-Af Amer) 39.0 BUN/Creatinine Ratio 13.4 (10-20) Glucose 75 (70-99) mg/dl POC Glucose (other) 80 (70-99) mg/dl Calcium 8.6 (8.5-10.1) mg/dl POC Ioniz Calcium Erin 1.14 (1.12-1.32) mmol/l Total Bilirubin 0.6 (0.2-1) mg/dl AST 33 (15-37) U/L ALT 24 (12-78) U/L Alkaline Phosphatase 104 (45-117) U/L Troponin I 0.050 H* (0-0.045) ng/ml Total Protein 6.9 (6.4-8.2) gm/dl Albumin 2.4 L (3.4-5.0) gm/dl Globulin 4.5 H (2.5-4.0) gm/dl Albumin/Globulin Ratio 0.5 L (0.9-2) Lipase 74 (73-393) U/L Blood Type Antibody Screen Crossmatch 12/09/19 Range/Units 16:14 WBC (4.8-10.8) K/uL RBC (4.2-5.4) M/uL Hgb (12.0-16.0) g/dL POC Hgb (12.0-16.0) g/dl Hct (37-47) % POC Hct (37-47) % MCV (80-100) fL MCH (25-34) pg MCHC (32-36) g/dL RDW Std Deviation (36.4-46.3) fL RDW Coeff of Tim (11.5-14.5) % Plt Count (130-400) K/uL MPV (7.4-10.4) fL Immature Gran % (Auto) % Neut % (Auto) % Lymph % (Auto) % [place] % (Auto) % Eos % (Auto) % Baso % (Auto) % Neut # (Auto) (1.4-6.5) K/uL Lymph # (Auto) (1.2-3.4) K/uL [place] # (Auto) (0.11-0.59) K/uL Eos # (Auto) (0-0.5) K/uL Baso # (Auto) (0-0.2) K/uL Immature Gran # (Auto) (0.00-0.02) K/uL Hypochromasia POC Sodium (135-144) mmol/L Sodium (136-145) mmol/L POC Potassium (3.3-5.0) mmol/L Potassium (3.5-5.1) mmol/L POC Chloride (101-112) mmol/L Chloride (98-107) mmol/L Carbon Dioxide (21-32) mmol/L POC Total CO2 (24-31) mmol/L Anion Gap (3-11) POC Anion Gap (16-25) mmol/L POC BUN (7-18) mg/dl BUN (7-18) mg/dl Creatinine (0.6-1.2) mg/dl POC Creatinine (0.6-1.3) mg/dl Est Cr Clr Drug Dosing ml/min Est GFR ( Amer) Est GFR (Non-Af Amer) BUN/Creatinine Ratio (10-20) Glucose (70-99) mg/dl POC Glucose (other) (70-99) mg/dl Calcium (8.5-10.1) mg/dl POC Ioniz Calcium Erin (1.12-1.32) mmol/l Total Bilirubin (0.2-1) mg/dl AST (15-37) U/L ALT (12-78) U/L Alkaline Phosphatase (45-117) U/L Troponin I (0-0.045) ng/ml Total Protein (6.4-8.2) gm/dl Albumin (3.4-5.0) gm/dl Globulin (2.5-4.0) gm/dl Albumin/Globulin Ratio (0.9-2) Lipase (73-393) U/L Blood Type A Positive Antibody Screen NEGATIVE Crossmatch See Detail Imaging Data Radiologist's Impression: [place], [place] [phone] CT Scan Report Patient: HILARIO ZAMUDIO AAdmit Date: 12/09/19 MR#: [id number]: [address] Acct ID:[id number]: TANVIR VALENTINE [facility] Zip: [place] [address] Age: 79Location: 2W Sex: FRoom/Bed: W263-2 Att Phy: Dyllan Feliciano MDDiagnosis: SYMPTOMATIC ANEMIA Graciela Phy: Darwin Lugo III, CRNPService Date: 12/11/19 Fam Phy:Interpreting Phy: Javy Mcdaniel MD Admit Phy: Jason Chandler MD Ordering Phy: Dyllan Feliciano MD cc: ~ ABDOMEN AND PELVIS CT WITH ORAL CONTRAST CT DOSE: 1027.96 mGycm HISTORY: persistent significant RLQ pain eval appy TECHNIQUE: Multiaxial CT images of the abdomen and pelvis were performed fo llowing the use of oral contrast. A dose lowering technique was utilized adhering to the principles of ALARA. COMPARISON STUDY: Abdomen and pelvis CT 12/09/2019. FINDINGS: No pneumatosis, free air or portal venous gas is present. No hepatic masses. There is no peripancreatic infiltration. The spleen and adrenal glands are unremarkable. Innumerable bilateral renal lesions are incompletely characte rized on this noncontrast study but favor cysts. Note is made of a 3 cm left renal cyst. There is no hydronephrosis. There is no evidence for a bowel obstruction. The appendix is normal. There is a moderate amount of stool within the colon. No bowel wall thickening is noted. There is no lymphadenopathy. A posterior decompression is noted. There is bilateral pedicle screw fusion from T12 through L4. There is joint space narrowing with sclerosis centered at the L1-L2 disc space. This remains unchanged. No acute fracture is noted. Trace gas within the bladder lumen likely due to prior catheterization. Prior hysterectomy and cholecystectomy. Small amount of gas at the thoracolumbar spine operative bed remains unchanged and is likely postoperative. IMPRESSION: 1. No change compared to prior study. No acute process within the abdomen or pelvis. 2. No bowel obstruction. Normal appendix. No bowel wall thickening. 3. Postoperative findings within the thoracolumbar spine. Small amount of gas within the operative bed which is likely postsurgical. 4. Joint space narrowing with endplate irregularity centered at the L1-L2 disc space, unchanged since chest CT of November 25, 2019. This is likely degenerative. An infectious process could appear similar but is considered less likely. 5. Trace gas within the bladder lumen. This may be due to recent catheterization. ACT 112: Negative or not required by law. Electronically signed by: Javy Mcdaniel M.D. 12/11/2019 4:39 PM Dictated: 12/11/[id number] Transcribed: 12/11/191629 MDM Narrative Patient was seen and evaluated as above in room B10. Review was performed of nursing notes and vital signs. I did review pertinent previous visits and patient history. After obtaining a thorough history and physical examination the above work up was performed. This is a 79-year-old female who presents emergency department complaining of generalized weakness. The patient was found to be anemic. She was typed and crossed for 1 unit of packed red blood cells. She is heme-negative from below. CAT scan does not show any acute process I did discuss the case with the hospitalist service who did agree to admit the patient. Patient family in agreement with the treatment plan. An order was placed for continuous cardiac monitoring. The monitor shows a rate of 72 with Normal SInus rhythm. The patient was evaluated during the global COVID-19 pandemic, and that diagnosis was suspected/considered upon their initial presentation. Their evaluation, treatment and testing was consistent with current guidelines for patients who present with complaints or symptoms that may be related to COVID- 19. Impression & Plan Microcytic anemia, Abdominal pain Critical Care Time I have personally spent greater than 30 minutes of critical care time in the direct management of this patient. This includes bedside care, interpretation of diagnostic studies, and testing, discussion with consultants, patient, and family members, and other required patient management activities. This 30 m inutes is in excess of all separately billable procedures. Discharge Plan Visit Data Chief Complaint: Abdominal Pain ED Provider: Chauncey Love Discharge Problem: Microcytic anemia, Abdominal pain Patient Disposition: Admitted As Inpatient Discharge Instructions Interventions: ED Discharge Assessment Last Done: 12/09/19 20:25 Discharge Problem: Abdominal pain Qualifiers: Abdominal location: unspecified location Qualified Code(s): R10.9 - Unspecified abdominal pain
[2019-12-12] MEDS: MoRPHine SULFATE 2 MG/ML CARP IV PRN (04:59)
[2019-12-12 08:16] LABS: Hemoglobin 9.8 g/dL (12.0-16.0); Mean Corpuscular Hemoglobin 22.6 pg (25-34); Mean Corpuscular Hgb Conc 29.7 g/dL (32-36); Mean Corpuscular Volume 76.2 fL (80-100); Mean Platelet Volume 8.7 fL (7.4-10.4); Platelet Count 236 K/uL (130-400); RDW Coefficient of Variation 16.4 % (11.5-14.5); RDW Standard Deviation 44.1 fL (36.4-46.3); Red Blood Count 4.33 M/uL (4.2-5.4); White Blood Count 6.93 K/uL (4.8-10.8)
[2019-12-12] MEDS: CLOPIDOGREL BISULFATE 75 MG TAB PO SCH (08:54)
[2019-12-12] MEDS: PANTOprazole 40 MG TAB PO SCH ×2 (08:54→21:21)
[2019-12-12] MEDS: HEPARIN SOD 5,000 UNIT/0.5 ML VIAL SQ SCH ×2 (08:55→21:19)
[2019-12-12] MEDS: POLYETHYLENE (MIRALAX) 17 GM PACK PO SCH ×2 (08:55→21:20)
[2019-12-12] MEDS: PRAVASTATIN SOD 40 MG TAB PO SCH (08:55)
[2019-12-12] MEDS: DOCUSATE SODIUM/SENNA 50/8.6MG TAB PO SCH ×2 (08:55→21:22)
[2019-12-12] MEDS: INSULIN GLARGINE SOLOSTAR 100 UNITS/ML 3 ML PEN SQ SCH ×2 (08:56→21:18)
[2019-12-12] MEDS: INSULIN ASPART 100 UNITS/ML 3 ML PEN SC SCH ×4 (08:57→21:19)
[2019-12-12] MEDS: DICLOFENAC SOD 1% GEL 100 GM TUBE EXT SCH ×3 (08:58→21:27)
[2019-12-12] MEDS: IRON SUCROSE 300 MG in SODIUM CHLORIDE 0.9% 250 ML IV SCH (09:06)
[2019-12-12] MEDS: ACETAMINOPHEN 325 MG TAB PO PRN (09:46)
[2019-12-12] MEDS: ACETAMINOPHEN 500 MG TAB PO SCH ×2 (14:31→21:22)
--- NOTE | 2019-12-12 16:56 | Hospitalist Progress Note ---
Date of Service December 12, 2019 Assessment & Plan (1) Encephalopathy: This has resolved it seemed questionable of what significance or etiology did have. Certainly not fearing for infection there is no electrolyte abnormalities she does have pre-existing cerebrovascular injuries which may place her at risk for some disinhibition. Additionally the daughter was concerned she may be withdrawing from opiates that she is been taking them fairly scheduled at home. For whatever reason her encephalopathy has now resolved (2) Abdominal pain: Main reason to come to the ED. continues and is significant negative work up so far including Ct abd/pelvis with and without oral contrast and Liver us, She is had good bowel movements and CT scan most recently promotes the fact that she is evacuated her bowels from waist We will attempt scheduled Tylenol and topical Lidoderm continue surveillance for shingles (3) Microcytic anemia: No indication this is an acute bleed. No sign of bleeding on the CT a/p on 12/08. No melena or bright red blood in stool. Iron studies indicated iron deficiency shortly after her surgery - Given 1 unit PRBCs by the ED hgb is 9.9 - Will order 3 doses of IV iron to help replete iron stores (4) CKD (chronic kidney disease): Baseline Cr ~0,9, CKD Stage III. On admission, acute kidney injury with Cr. 1.3. resolved (5) Neurogenic claudication due to lumbar spinal stenosis: S/p spinal decompression/fusion T12-L4 with Dr. Rodrigues on 11/26. - Was to see Emily Smith today - Orthopedic consult for routine follow-up - MINIMAL opioid pain regimen -> Daughter reports oxycodone 2.5 mg PO Q4h PRN as effective without causing altered mental status. Additionally, she had respiratory distress after IV opioids after surgery. (6) Left pontine stroke: In 01/2019. Follows with [facility] [place] neurology. 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 aspiration pneumonia has been ruled out (8) Obesity hypoventilation syndrome: - Will use BiPap PRN (9) Hypertension: BP presently 160/75. 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 Patient had a negative CT scan with contrast yesterday without concerns for any injury to her viscus and otherwise commented that there were no significant abnormalities in her abdomen. Additionally she has good evacuation of the previously noted stool. Her pain is at proportion to examination as she is placing the stethoscope on her abdomen lightly evokes a loud yell. Is unclear whether this is some disinhibition from previous cerebrovascular accidents. We will continue to attempt to improve her symptoms control Review of Systems Review of Systems: Moderate distress and confusion now no headache, blurry or double vision no speech or swallowing issues no chest pain, pressure or palpitations no shortness of breath, cough or wheezes Continue to complain of bilateral lower quadrant abdominal pain right greater than left , no nausea or vomiting, diarrhea or constipation has been having good bowel movements no dysuria, hematuria or frequency no focal joint pain or swelling post operative back pain not different than before, CVA tenderness or radicular pain no bruising, bleeding or rashes no focal signs of weakness or numbness or altered sensation no complaints or anxiety or depression. Physical Exam Physical Exam: The patient appeared altered and chronically ill she continues to complain of abdominal pain laying in right lateral decubitus position Vital signs as documented. Head exam is normocephalic atraumatic no scleral icterus has strabismus to right eye Neck is without JVD, thyromegaly, or carotid bruits. Lungs are clear to auscultation, no focal loss of breath sounds Cardiac exam, Rhythm is regular.. No murmurs, rubs or gallops. Abdominal exam reveals normal bowel sounds, soft continues with significant vocations of tenderness to the point where I cannot even place a stethoscope on her abdomen. There is no skin changes consistent with shingles but this is a thought I have of pain at a proportion to exam findings Extremities are nonedematous and both pedal pulses are normal. Neurologic exam is alert he is altered and confused with some hallucinations, no focal loss of strength or sensation Skin is with check of her postoperative wound in the back appears to be typical healing for its age Psychologically is turned for encephalopathy or delirium Results & Data Results & Data ([facility]) Vital Signs (Past 12 Hours) Vital Signs Temp Pulse Resp BP Pulse Ox 09/11/20 15:36 98.1 F 66 18 174/83 H 96 12/12/19 07:32 97.7 F 68 18 149/75 H 95 PG Care Time/CCT Total # of Minutes Spent Total Time Spent with Patient: Total time spent is greater than 50% in coordination of care (as documented) at patient's floor/unit and/or counseling patient: Coding Level of Care Code 75652 Subseq Hosp Care Lvl 3 Diagnoses Encephalopathy G93.40 Abdominal pain R10.9 Abdominal location: unspecified location Microcytic anemia D50.9 CKD (chronic kidney disease) N18.9 Chronic kidney disease stage: unspecified stage Neurogenic claudication due to lumbar spinal stenosis M48.062 Left pontine stroke I63.50 Aspiration pneumonia J69.0 Aspiration pneumonia type: unspecified Laterality: unspecified laterality Lung location: unspecified part of lung Obesity hypoventilation syndrome E66.2 Hypertension I10 Hypertension type: unspecified GERD (gastroesophageal reflux disease) K21.9 Morbid obesity E66.01 DVT prophylaxis Z29.9 (1) CKD (chronic kidney disease) Chronic kidney disease stage: unspecified stage Qualified Code(s): N18.9 - Chronic kidney disease, unspecified (2) Aspiration pneumonia Aspiration pneumonia type: unspecified Laterality: unspecified laterality Lung location: unspecified part of lung Qualified Code(s): J69.0 - Pneumonitis due to inhalation of food and vomit (3) Abdominal pain Abdominal location: unspecified location Qualified Code(s): R10.9 - Unspecified abdominal pain (4) Hypertension Hypertension type: unspecified Qualified Code(s): I10 - Essential (primary) hypertension
[2019-12-12] MEDS: LIDOCAINE 5% 1 PATCH TD SCH (17:32)
[2019-12-12] MEDS: LORazepam 0.25 MG/0.5 ML VIAL IV PRN (18:57)
--- NOTE | 2019-12-12 20:16 | Magnetic Resonance Report ---
MRI OF THE BRAIN WITHOUT CONTRAST CLINICAL HISTORY: Evaluate meningioma. Altered mental status. Recent falls. Dizziness. COMPARISON STUDY: MRI of the brain February 08, 2019. TECHNIQUE: Utilizing a 1.5 Trisha magnet and dedicated coil, multiplanar, multiecho imaging of the bra in was performed without IV contrast. FINDINGS: Exam is mildly compromised by artifact. No foci of restricted diffusion are noted to sugges t acute infarct. No acute intracranial hemorrhage, midline shift or mass effect is present. A 1.3 cm extra-axial lesion overlying the right temporal lobe on axial image 16 of 27 is unchanged since prior exam. This represents a meningioma. There are no additional intracranial masses. Mild ventricular di latation is due to atrophy. There is moderate atrophy. White matter T2 hyperintense foci represent mo derate small vessel disease. Calvarial signal is normal. Old pontine lacunar infarct is noted. IMPRESSION: 1. No acute intracranial findings. 2. Exam mildly compromised by motion artifact. 3. No change in a 1.3 cm meningioma overlying the right temporal lobe. 4. Moderate atrophy and small vessel disease. 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 ACT 112: Negative or not required by law. Electronically signed by: Kirby Anna M.D. 12/12/2019 8:14 PM
[2019-12-12] MEDS ORDERED: GABAPENTIN 600 MG TAB PO SCH (21:00)
[2019-12-12] MEDS: ESCITALOPRAM OXALATE 20 MG TAB PO SCH (21:20)
[2019-12-12] MEDS: GABAPENTIN 300 MG CAP PO SCH (21:21)
[2019-12-12] MEDS: METOPROLOL SUCC 50MG EXT REL TAB PO SCH (21:28)
--- NOTE | 2019-12-13 09:15 | Hospitalist Progress Note ---
Date of Service December 13, 2019 Assessment & Plan (1) Encephalopathy: Metabolic encephalopathy from urinary tract infection present on admission MRI brain 12/11 IMPRESSION: 1. No acute intracranial findings. 2. Exam mildly compromised by motion artifact. 3. No change in a 1.3 cm meningioma overlying the right temporal lobe. 4. Moderate atrophy and small vessel disease. 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 ua with gram negative bactremia started on ceftriaxone (2) Abdominal pain: Main reason to come to the ED much less and seems to be resolving after catharsis of stool negative work up so far including Ct abd/pelvis with and without oral contrast and Liver us, She is had good bowel movements and CT scan most recently promotes the fact that she is evacuated her bowels from waist Continues on scheduled Tylenol and topical Lidoderm continue surveillance for shingles (3) Microcytic anemia: No indication this is an acute bleed. No sign of bleeding on the CT a/p on 12/08. No melena or bright red blood in stool. Iron studies indicated iron deficiency shortly after her surgery - Given 1 unit PRBCs by the ED hgb is 9.9 -Did complete 3 doses of IV iron to help replete iron stores (4) CKD (chronic kidney disease): Baseline Cr ~0,9, CKD Stage III. On admission, acute kidney injury with Cr. 1.3. resolved (5) Neurogenic claudication due to lumbar spinal stenosis: S/p spinal decompression/fusion T12-L4 with Dr. Rodrigues on 11/26. - Was to see Emily Smith today - Orthopedic consult for routine follow-up - MINIMAL opioid pain regimen -> Daughter reports oxycodone 2.5 mg PO Q4h PRN as effective without causing altered mental status. Additionally, she had respiratory distress after IV opioids after surgery. (6) Left pontine stroke: In 01/2019. Follows with [facility] [place] neurology. 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 aspiration pneumonia has been ruled out (8) Obesity hypoventilation syndrome: - Will use BiPap PRN (9) Hypertension: BP presently 160/75. 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 Her abdominal pain is improved somewhat she still has a poor appetite. Review of Systems Review of Systems: Less distressed and improved confusion no headache, blurry or double vision no speech or swallowing issues no chest pain, pressure or palpitations no shortness of breath, cough or wheezes [place] exam is only with minor tenderness normal bowel sounds soft no dysuria, hematuria or frequency no focal joint pain or swelling post operative back pain not different than before, CVA tenderness or radicular pain no bruising, bleeding or rashes no focal signs of weakness or numbness or altered sensation no complaints or anxiety or depression. Physical Exam Physical Exam: The patient appeared altered and chronically ill she continues to complain of not feeling like herself Vital signs as documented. Head exam is normocephalic atraumatic no scleral icterus has strabismus to right eye Neck is without JVD, thyromegaly, or carotid bruits. Lungs are clear to auscultation, no focal loss of breath sounds Cardiac exam, Rhythm is regular.. No murmurs, rubs or gallops. Abdominal exam reveals normal bowel sounds, soft continues with minor tenderness there is no skin changes consistent with shingles Extremities are nonedematous and both pedal pulses are normal. Neurologic exam is alert he is altered and confused with some hallucinations, no focal loss of strength or sensation Skin is with check of her postoperative wound in the back appears to be typical healing for its age Psychologically improving encephalopathy Results & Data Results & Data ([facility]) Vital Signs (Past 12 Hours) Vital Signs Temp Pulse Pulse Resp BP Pulse Ox 12/13/19 08:00 97.3 F L 63 18 139/82 98 12/12/19 23:12 98.4 F 71 18 149/53 H 96 12/12/19 21:30 69 180/75 H PG Care Time/CCT Total # of Minutes Spent Total Time Spent with Patient: Total time spent is greater than 50% in coordination of care (as documented) at patient's floor/unit and/or counseling patient: Coding Level of Care Code 94896 Subseq Hosp Care Lvl 2 Diagnoses Encephalopathy G93.40 Abdominal pain R10.9 Abdominal location: unspecified location Microcytic anemia D50.9 CKD (chronic kidney disease) N18.9 Chronic kidney disease stage: unspecified stage Neurogenic claudication due to lumbar spinal stenosis M48.062 Left pontine stroke I63.50 Aspiration pneumonia J69.0 Aspiration pneumonia type: unspecified Laterality: unspecified laterality Lung location: unspecified part of lung Obesity hypoventilation syndrome E66.2 Hypertension I10 Hypertension type: unspecified GERD (gastroesophageal reflux disease) K21.9 Morbid obesity E66.01 DVT prophylaxis Z29.9 (1) CKD (chronic kidney disease) Chronic kidney disease stage: unspecified stage Qualified Code(s): N18.9 - Chronic kidney disease, unspecified (2) Aspiration pneumonia Aspiration pneumonia type: unspecified Laterality: unspecified laterality Lung location: unspecified part of lung Qualified Code(s): J69.0 - Pneumonitis due to inhalation of food and vomit (3) Abdominal pain Abdominal location: unspecified location Qualified Code(s): R10.9 - Unspecified abdominal pain (4) Hypertension Hypertension type: unspecified Qualified Code(s): I10 - Essential (primary) hypertension
[2019-12-13] MEDS ORDERED: cefTRIAXone SODIUM 2,000 MG in DEXTROSE 5% 50 ML IV SCH (10:00)
[2019-12-13] MEDS: DICLOFENAC SOD 1% GEL 100 GM TUBE EXT SCH ×3 (10:17→19:26)
[2019-12-13] MEDS: ACETAMINOPHEN 500 MG TAB PO SCH ×3 (10:18→20:03)
[2019-12-13] MEDS: CLOPIDOGREL BISULFATE 75 MG TAB PO SCH (10:19)
[2019-12-13] MEDS: POLYETHYLENE (MIRALAX) 17 GM PACK PO SCH ×2 (10:19→20:02)
[2019-12-13] MEDS: INSULIN ASPART 100 UNITS/ML 3 ML PEN SC SCH ×4 (10:19→20:29)
[2019-12-13] MEDS: INSULIN GLARGINE SOLOSTAR 100 UNITS/ML 3 ML PEN SQ SCH (10:19)
[2019-12-13] MEDS: DOCUSATE SODIUM/SENNA 50/8.6MG TAB PO SCH ×2 (10:19→20:03)
[2019-12-13] MEDS: GABAPENTIN 300 MG CAP PO SCH ×2 (10:20→20:02)
[2019-12-13] MEDS: HEPARIN SOD 5,000 UNIT/0.5 ML VIAL SQ SCH ×2 (10:20→19:57)
[2019-12-13] MEDS: LIDOCAINE 5% 1 PATCH TD SCH (10:22)
[2019-12-13] MEDS: PANTOprazole 40 MG TAB PO SCH ×2 (10:25→20:03)
[2019-12-13] MEDS ORDERED: DiphenhydrAMINE HCL 50 MG/ML VIAL IV STA (11:13)
[2019-12-13] MEDS: LORazepam 0.25 MG/0.5 ML VIAL IV PRN (19:46)
[2019-12-13] MEDS: ESCITALOPRAM OXALATE 20 MG TAB PO SCH (20:01)
[2019-12-13] MEDS: METOPROLOL SUCC 50MG EXT REL TAB PO SCH (20:04)
[2019-12-13] MEDS: MELATONIN 3 MG TAB PO PRN (21:01)
[2019-12-14] MEDS: MELATONIN 3 MG TAB PO PRN ×2 (03:34→20:29)
--- NOTE | 2019-12-14 07:48 | Hospitalist Progress Note ---
Date of Service December 14, 2019 Assessment & Plan (1) Encephalopathy: Metabolic encephalopathy from urinary tract infection present on admission MRI brain 12/11 IMPRESSION: 1. No acute intracranial findings. 2. Exam mildly compromised by motion artifact. 3. No change in a 1.3 cm meningioma overlying the right temporal lobe. 4. Moderate atrophy and small vessel disease. 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 ua with gram negative bactremia started on ceftriaxone, however found to be Enterobacter cloacae resistant to ceftriaxone but sensitive to penicillins and quinolones. Given the acute illness patient be placed on ertapenem but she has listed in her allergies that she is tolerated levofloxacin in the past and likely could be transitioned to levofloxacin once her clinical symptom complex improves (2) Abdominal pain: Main reason to come to the ED much less and seems to be resolving after catharsis of stool negative work up so far including Ct abd/pelvis with and without oral contrast and Liver us, She is had good bowel movements and CT scan most recently promotes the fact that she is evacuated her bowels from waist Continues on scheduled Tylenol and topical Lidoderm (3) Microcytic anemia: No indication this is an acute bleed. No sign of bleeding on the CT a/p on 12/08. No melena or bright red blood in stool. Iron studies indicated iron deficiency shortly after her surgery - Given 1 unit PRBCs by the ED hgb is 9.9 -Did complete 3 doses of IV iron to help replete iron stores (4) CKD (chronic kidney disease): Baseline Cr ~0,9, CKD Stage III. On admission, acute kidney injury with Cr. 1.3. resolved (5) Neurogenic claudication due to lumbar spinal stenosis: S/p spinal decompression/fusion T12-L4 with Dr. Rodrigues on 11/26. - Was to see Emily Smith today - Orthopedic consult for routine follow-up - MINIMAL opioid pain regimen -> Daughter reports oxycodone 2.5 mg PO Q4h PRN as effective without causing altered mental status. Additionally, she had respiratory distress after IV opioids after surgery. (6) Left pontine stroke: In 01/2019. Follows with [facility] [place] neurology. 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 aspiration pneumonia has been ruled out (8) Obesity hypoventilation syndrome: - Will use BiPap PRN (9) Hypertension: BP presently 160/75. 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 Unfortunately the urine culture shows an Enterobacter that was resistent to the rocephin chosen, will change antibiotics today Review of Systems Review of Systems: Less distressed and improved but persistent confusion no headache, blurry or double vision no speech or swallowing issues no chest pain, pressure or palpitations no shortness of breath, cough or wheezes abdominal exam is only with minor tenderness normal bowel sounds soft no dysuria, hematuria or frequency no focal joint pain or swelling post operative back pain not different than before, CVA tenderness or radicular pain no bruising, bleeding or rashes no focal signs of weakness or numbness or altered sensation no complaints or anxiety or depression. Physical Exam Physical Exam: The patient appeared altered and chronically ill she continues to complain of not feeling like herself Vital signs as documented. Head exam is normocephalic atraumatic no scleral icterus has strabismus to right eye Neck is without JVD, thyromegaly, or carotid bruits. Lungs are clear to auscultation, no focal loss of breath sounds Cardiac exam, Rhythm is regular.. No murmurs, rubs or gallops. Abdominal exam reveals normal bowel sounds, soft continues with minor tenderness there is no skin changes consistent with shingles Extremities are nonedematous and both pedal pulses are normal. Neurologic exam is alert he is altered and confused with some hallucinations, no focal loss of strength or sensation Skin is with check of her postoperative wound in the back appears to be typical healing for its age Psychologically improving encephalopathy Results & Data Results & Data ([facility]) Vital Signs (Past 12 Hours) Vital Signs Temp Pulse Resp BP Pulse Ox 12/14/19 07:00 98.1 F 64 19 122/61 94 12/13/19 23:00 98.1 F 61 18 141/70 H 95 PG Care Time/CCT Total # of Minutes Spent Total Time Spent with Patient: Total time spent is greater than 50% in coordination of care (as documented) at patient's floor/unit and/or counseling patient: Coding Level of Care Code 86188 Subseq Hosp Care Lvl 2 Diagnoses Encephalopathy G93.40 Abdominal pain R10.9 Abdominal location: unspecified location Microcytic anemia D50.9 CKD (chronic kidney disease) N18.9 Chronic kidney disease stage: unspecified stage Neurogenic claudication due to lumbar spinal stenosis M48.062 Left pontine stroke I63.50 Aspiration pneumonia J69.0 Aspiration pneumonia type: unspecified Laterality: unspecified laterality Lung location: unspecified part of lung Obesity hypoventilation syndrome E66.2 Hypertension I10 Hypertension type: unspecified GERD (gastroesophageal reflux disease) K21.9 Morbid obesity E66.01 DVT prophylaxis Z29.9 (1) CKD (chronic kidney disease) Chronic kidney disease stage: unspecified stage Qualified Code(s): N18.9 - Chronic kidney disease, unspecified (2) Aspiration pneumonia Aspiration pneumonia type: unspecified Laterality: unspecified laterality Lung location: unspecified part of lung Qualified Code(s): J69.0 - Pneumonitis due to inhalation of food and vomit (3) Abdominal pain Abdominal location: unspecified location Qualified Code(s): R10.9 - Unspecified abdominal pain (4) Hypertension Hypertension type: unspecified Qualified Code(s): I10 - Essential (primary) hypertension
[2019-12-14] MEDS: INSULIN ASPART 100 UNITS/ML 3 ML PEN SC SCH ×4 (08:00→20:31)
[2019-12-14] MEDS: INSULIN GLARGINE SOLOSTAR 100 UNITS/ML 3 ML PEN SQ SCH (08:00)
[2019-12-14] MEDS: POLYETHYLENE (MIRALAX) 17 GM PACK PO SCH ×2 (08:01→20:51)
[2019-12-14] MEDS: DOCUSATE SODIUM/SENNA 50/8.6MG TAB PO SCH ×2 (08:01→20:51)
[2019-12-14] MEDS: HEPARIN SOD 5,000 UNIT/0.5 ML VIAL SQ SCH ×2 (08:01→20:30)
[2019-12-14] MEDS: GABAPENTIN 300 MG CAP PO SCH ×2 (08:02→20:29)
[2019-12-14] MEDS: ACETAMINOPHEN 500 MG TAB PO SCH ×3 (08:02→20:51)
[2019-12-14] MEDS: DICLOFENAC SOD 1% GEL 100 GM TUBE EXT SCH ×3 (08:02→20:32)
[2019-12-14] MEDS: PRAVASTATIN SOD 40 MG TAB PO SCH (08:02)
[2019-12-14] MEDS: CLOPIDOGREL BISULFATE 75 MG TAB PO SCH (08:02)
[2019-12-14] MEDS: PANTOprazole 40 MG TAB PO SCH ×2 (08:03→20:29)
[2019-12-14] MEDS: LIDOCAINE 5% 1 PATCH TD SCH (08:03)
[2019-12-14] MEDS: ERTAPENEM SODIUM 1,000 MG in SODIUM CHLORIDE 0.9% 50 ML IV SCH (08:31)
[2019-12-14] MEDS: ESCITALOPRAM OXALATE 20 MG TAB PO SCH (20:29)
[2019-12-14] MEDS: METOPROLOL SUCC 50MG EXT REL TAB PO SCH (20:29)
[2019-12-15] MEDS: MELATONIN 3 MG TAB PO PRN ×2 (03:58→20:23)
[2019-12-15] MEDS: DOCUSATE SODIUM/SENNA 50/8.6MG TAB PO SCH ×2 (08:36→20:12)
[2019-12-15] MEDS: ACETAMINOPHEN 500 MG TAB PO SCH ×3 (08:36→20:13)
[2019-12-15] MEDS: CLOPIDOGREL BISULFATE 75 MG TAB PO SCH (08:37)
[2019-12-15] MEDS: PANTOprazole 40 MG TAB PO SCH ×2 (08:37→20:14)
[2019-12-15] MEDS: GABAPENTIN 300 MG CAP PO SCH ×2 (08:37→20:12)
[2019-12-15 08:38] LABS: Hematocrit (blood only) 35.3 % (37-47); Hemoglobin 10.6 g/dL (12.0-16.0); Mean Corpuscular Volume 76.6 fL (80-100); Mean Platelet Volume 8.3 fL (7.4-10.4); Platelet Count 179 K/uL (130-400); RDW Coefficient of Variation 18.1 % (11.5-14.5); RDW Standard Deviation 44.8 fL (36.4-46.3); Red Blood Count 4.61 M/uL (4.2-5.4); White Blood Count 4.84 K/uL (4.8-10.8)
[2019-12-15] MEDS: INSULIN GLARGINE SOLOSTAR 100 UNITS/ML 3 ML PEN SQ SCH (08:38)
[2019-12-15] MEDS: HEPARIN SOD 5,000 UNIT/0.5 ML VIAL SQ SCH ×2 (08:38→20:08)
[2019-12-15] MEDS: INSULIN ASPART 100 UNITS/ML 3 ML PEN SC SCH ×4 (08:39→20:11)
[2019-12-15] MEDS: LIDOCAINE 5% 1 PATCH TD SCH (08:40)
[2019-12-15] MEDS: POLYETHYLENE (MIRALAX) 17 GM PACK PO SCH ×2 (08:41→20:08)
[2019-12-15] MEDS: DICLOFENAC SOD 1% GEL 100 GM TUBE EXT SCH ×3 (08:42→20:14)
[2019-12-15] MEDS: ERTAPENEM SODIUM 1,000 MG in SODIUM CHLORIDE 0.9% 50 ML IV SCH (08:51)
--- NOTE | 2019-12-15 10:47 | Hospitalist Progress Note ---
Date of Service December 15, 2019 Assessment & Plan (1) Encephalopathy: Metabolic encephalopathy from urinary tract infection present on admission MRI brain 12/11 IMPRESSION: 1. No acute intracranial findings. 2. Exam mildly compromised by motion artifact. 3. No change in a 1.3 cm meningioma overlying the right temporal lobe. 4. Moderate atrophy and small vessel disease. 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 ua with gram negative bactremia started on ceftriaxone, however found to be Enterobacter cloacae resistant to ceftriaxone but sensitive to penicillins and quinolones. continue Ertapenem, no fever, WBC normal will need 10 days of treatment, likey change to Levofloxacin once better (2) Abdominal pain: Main reason to come to the ED negative work up so far including Ct abd/pelvis with and without oral contrast and Liver us, some improvement after moving her bowels now the pain is back but not as severe having loose stools (3) Microcytic anemia: No indication this is an acute bleed. No sign of bleeding on the CT a/p on 12/08. No melena or bright red blood in stool. Iron studies indicated iron deficiency shortly after her surgery - Given 1 unit PRBCs by the ED hgb is 10.6 -Did complete 3 doses of IV iron to help replete iron stores (4) CKD (chronic kidney disease): Baseline Cr ~0,9, CKD Stage III. On admission, acute kidney injury with Cr. 1.3. resolved (5) Neurogenic claudication due to lumbar spinal stenosis: S/p spinal decompression/fusion T12-L4 with Dr. Rodrigues on 11/26. - Was to see Emily Smith today - Orthopedic consult for routine follow-up - MINIMAL opioid pain regimen -> Daughter reports oxycodone 2.5 mg PO Q4h PRN as effective without causing altered mental status. Additionally, she had respiratory distress after IV opioids after surgery. (6) Left pontine stroke: In 01/2019. Follows with [facility] neurology. 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 aspiration pneumonia has been ruled out (8) Obesity hypoventilation syndrome: - Will use BiPap PRN (9) Hypertension: BP presently 160/75. 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 - (12) DVT prophylaxis: Heparin 7500 units SQ Q12h Admission and Anticipated Discharge Date Admission Date: December 09, 2019 Subjective patient c/o vague abdominal pain across her lower abdomen she had a loose BM this morning, was formed but definitely not solid no nausea or vomiting today is her first 24 hours on Ertapenem, explained to her that her UTI was not adequate treated prior to this reviewed chart, reviewed labs WBC 4k, Hb 10.6 will continue with PT/OT Review of Systems Review of Systems: All systems reviewed & are unremarkable except as noted in Subjective Constitutional: + weakness; no fever, no chills, no sweats and no fatigue Respiratory: no cough and no dyspnea Cardiovascular: no chest pain and no edema Gastrointestinal: + abdominal pain and + diarrhea/loose stools; no nausea, no vomiting and no constipation Genitourinary: no dysuria Physical Exam Constitutional: well developed, + morbidly obese and comfortable; no acute distress Eyes: PERRL, conjunctivae normal, anicteric sclerae ENMT: external ear and nose normal, oropharynx normal Neck: trachea midline, no thyromegaly Respiratory: normal respiratory effort, lungs clear to auscultation Cardiovascular: RRR, no murmur, no edema Gastrointestinal (Abdomen): Inspection/Auscultation: abdomen normal to inspection and normal bowel sounds; abdomen not distended Percussion/Palpation: + abdomen tender (lower abdomen) and abdomen soft; no guarding, abdomen not rigid, no hernia and no ascites Musculoskeletal: no cyanosis or clubbing, extremities motor strength 5/5 Skin: no rashes, warm and dry Neurologic: patellar DTR's 2+ bilat, sensation intact and PERRL, EOMI, accommodation nl, no face palsy, no dysarthria Psychiatric: Orientation: alert and oriented x 3 Affect: + tearful affect Mood: + depressed mood Lymphatic: no cervical or axillary lymphadenopathy Results & Data Results & Data ([facility]) Vital Signs (Past 12 Hours) Vital Signs Temp Pulse Resp BP Pulse Ox 12/15/19 07:20 36.9 C 65 16 169/69 H 97 12/15/19 04:20 36.8 C 63 20 159/75 H 97 Laboratory Results Laboratory Results - last 24 hr 12/14/19 12/14/19 12/14/19 10:56 16:53 20:19 WBC RBC Hgb Hct MCV MCH MCHC RDW Std Deviation RDW Coeff of Tim Plt Count MPV POC Glucose 208 H 97 183 H 12/15/19 12/15/19 07:33 08:09 WBC 4.84 RBC 4.61 Hgb 10.6 L Hct 35.3 L MCV 76.6 L MCH 23.0 L MCHC 30.0 L RDW Std Deviation 44.8 RDW Coeff of Tim 18.1 H Plt Count 179 MPV 8.3 POC Glucose 112 H Medications Administered Current Inpatient Medications Acetaminophen (Acetaminophen 500 Mg Tab) 1,000 mg PO TID SHARMILA Stop: 01/11/20 13:59 Last Admin: 12/15/19 08:36 Dose: 1,000 mg Documented by: Albuterol (Albut/Ipratrop 3mg/0.5mg Neb 3 Ml Vial) 3 ml NEB Q4R PRN PRN Reason: Shortness Of Breath Or Wheezing Stop: 01/08/20 22:59 Clopidogrel Bisulfate (Clopidogrel Bisulfate 75 Mg Tab) 75 mg PO QAM SHARMILA Stop: 01/09/20 08:59 Last Admin: 12/15/19 08:37 Dose: 75 mg Documented by: Dextrose (Dextrose 50% 50 Ml Syringe) 25 - 50 ml IV UD PRN; Protocol PRN Reason: Hypoglycemia Protocol Stop: 01/08/20 20:47 Diclofenac Sodium (Diclofenac Sod 1% Gel 100 Gm Tube) 4 gm EXT TID SHARMILA Stop: 01/10/20 08:59 Last Admin: 12/15/19 08:42 Dose: 4 gm Documented by: Escitalopram Oxalate (Escitalopram Oxalate 20 Mg Tab) 20 mg PO QPM SHARMILA Stop: 01/08/20 20:59 Last Admin: 12/14/19 20:29 Dose: 20 mg Documented by: Gabapentin (Gabapentin 300 Mg Cap) 300 mg PO BID SHARMILA Stop: 01/11/20 20:59 Last Admin: 12/15/19 08:37 Dose: 300 mg Documented by: Glucagon (Glucagon For Inj 1 Mg Vial) 1 mg SQ UD PRN; Protocol PRN Reason: Hypoglycemia Protocol Stop: 01/08/20 20:47 Glucose (Glucose 10 Tabs/Tube) 4 - 8 tabs PO UD PRN; Protocol PRN Reason: Hypoglycemia Protocol Stop: 01/08/20 20:47 Glucose (Glucose 40% Gel 15 Gm Tube) 15 - 30 gm PO UD PRN; Protocol PRN Reason: Hypoglycemia Protocol Stop: 01/08/20 20:47 Heparin Sodium (Porcine) (Heparin Sod 5,000 Unit/0.5 Ml Vial) 7,500 units SQ Q12 SHARMILA Stop: 01/09/20 08:59 Last Admin: 12/15/19 08:38 Dose: 7,500 units Documented by: Lorazepam (Ativan) 0.25 mg in 0.5 mls @ 1 mls/min IV Q4H PRN PRN Reason: Agitation Stop: 01/11/20 17:56 Last Admin: 12/13/19 19:46 Dose: 1 mls/min Documented by: Ertapenem 1,000 mg/ Sodium (Chloride) 60 mls @ 100 mls/hr IV DAILY@0800 SHARMILA Stop: 12/19/19 07:59 Last Admin: 12/15/19 08:51 Dose: 100 mls/hr Documented by: Insulin Aspart (Insulin Aspart 100 Units/Ml 3 Ml Pen) 0 units SC ACHS SHARMILA Stop: 01/08/20 20:59 Last Admin: 12/15/19 08:39 Dose: 2 units Documented by: Insulin Glargine (Insulin Glargine Solostar 100 Units/Ml 3 Ml Pen) 30 units SQ QAM SHARMILA Stop: 01/13/20 08:59 Last Admin: 12/15/19 08:38 Dose: 30 units Documented by: Lactobacillus Acidophilus (Lactobacillus Acidophilus (Floranex) Tab) 4 tab PO TIDM SHARMILA Stop: 01/14/20 11:59 Lidocaine (Lidocaine 5% 1 Patch) 1 patch TD QAM SHARMILA Stop: 01/11/20 17:29 Last Admin: 12/15/19 08:40 Dose: 1 patch Documented by: Melatonin (Melatonin 3 Mg Tab) 3 mg PO HS PRN PRN Reason: Sleep Stop: 01/09/20 23:46 Last Admin: 12/15/19 03:58 Dose: 3 mg Documented by: Metoprolol Succinate (Metoprolol Succ 50mg Ext Rel Tab) 50 mg PO QPM SHARMILA Stop: 01/08/20 20:59 Last Admin: 12/14/19 20:29 Dose: 50 mg Documented by: Miscellaneous (Carbohydrates For Hypoglycemia ) 15 - 30 gm PO UD PRN PRN Reason: Hypoglycemia Protocol Stop: 01/08/20 20:47 Last Admin: 12/12/19 17:00 Dose: 15 gm Documented by: Miscellaneous (Remove Lidoderm Patch) 1 ea N/A DAILY@2100 [facility] Stop: 01/11/20 20:59 Last Admin: 12/14/19 20:31 Dose: 1 ea Documented by: Morphine Sulfate (Morphine Sulfate 2 Mg/Ml Carp) 2 mg IV Q4 PRN PRN Reason: Pain Stop: 12/24/19 18:07 Last Admin: 12/12/19 04:59 Dose: 2 mg Documented by: Ondansetron HCl (Ondansetron Inj 2 Mg/Ml 2 Ml Vial) 4 mg IV Q4H PRN PRN Reason: Nausea Stop: 01/08/20 20:47 Oxycodone HCl (Oxycodone Hcl Ir 5 Mg Tab (Immediate Release)) 2.5 mg PO Q6H PRN PRN Reason: Pain Stop: 12/23/19 20:58 Last Admin: 12/12/19 00:51 Dose: 2.5 mg Documented by: Pantoprazole Sodium (Pantoprazole 40 Mg Tab) 40 mg PO BID [facility] Stop: 01/08/20 20:59 Last Admin: 12/15/19 08:37 Dose: 40 mg Documented by: Polyethylene Glycol (Polyethylene (Miralax) 17 Gm Pack) 17 gm PO BID [facility] Stop: 01/09/20 08:59 Last Admin: 12/15/19 08:41 Dose: Not Given Documented by: Pravastatin Sodium (Pravastatin Sod 40 Mg Tab) 40 mg PO Q2D [facility] Stop: 01/11/20 08:59 Last Admin: 12/14/19 08:02 Dose: 40 mg Documented by: Senna/Docusate Sodium (Docusate Sodium/Senna 50/8.6mg Tab) 2 tab PO BID [facility] Stop: 01/09/20 08:59 Last Admin: 12/15/19 08:36 Dose: Not Given Documented by: Sodium Biphosphate/Sodium Phosphate (Sod Phosphate/Sod Biphosphate Enema 132 Ml Btl) 132 ml MD DAILY PRN PRN Reason: Constipation Stop: 01/09/20 11:02 PG Care Time/CCT Total # of Minutes Spent Total Time Spent with Patient: Total time spent is greater than 50% in coordination of care (as documented) at patient's floor/unit and/or counseling patient: Coding Level of Care Code 90283 Subseq Hosp Care Lvl 2 Diagnoses Encephalopathy G93.40 Abdominal pain R10.9 Abdominal location: unspecified location Microcytic anemia D50.9 CKD (chronic kidney disease) N18.9 Chronic kidney disease stage: unspecified stage Neurogenic claudication due to lumbar spinal stenosis M48.062 Left pontine stroke I63.50 Aspiration pneumonia J69.0 Aspiration pneumonia type: unspecified Laterality: unspecified laterality Lung location: unspecified part of lung Obesity hypoventilation syndrome E66.2 Hypertension I10 Hypertension type: unspecified GERD (gastroesophageal reflux disease) K21.9 Morbid obesity E66.01 DVT prophylaxis Z29.9 (1) CKD (chronic kidney disease) Chronic kidney disease stage: unspecified stage Qualified Code(s): N18.9 - Chronic kidney disease, unspecified (2) Aspiration pneumonia Aspiration pneumonia type: unspecified Laterality: unspecified laterality Lung location: unspecified part of lung Qualified Code(s): J69.0 - Pneumonitis due to inhalation of food and vomit (3) Abdominal pain Abdominal location: unspecified location Qualified Code(s): R10.9 - Unspecified abdominal pain (4) Hypertension Hypertension type: unspecified Qualified Code(s): I10 - Essential (primary) hypertension
[2019-12-15] MEDS: LACTOBACILLUS ACIDOPHILUS (FLORANEX) TAB PO SCH ×2 (12:19→18:20)
[2019-12-15] MEDS: ESCITALOPRAM OXALATE 20 MG TAB PO SCH (20:12)
[2019-12-15] MEDS: METOPROLOL SUCC 50MG EXT REL TAB PO SCH (20:13)
[2019-12-16] MEDS: MoRPHine SULFATE 2 MG/ML CARP IV PRN ×3 (01:05→21:28)
[2019-12-16] MEDS: DICLOFENAC SOD 1% GEL 100 GM TUBE EXT SCH ×3 (07:47→21:30)
[2019-12-16] MEDS: PANTOprazole 40 MG TAB PO SCH ×2 (07:48→21:29)
[2019-12-16] MEDS: LACTOBACILLUS ACIDOPHILUS (FLORANEX) TAB PO SCH ×3 (07:49→17:05)
[2019-12-16] MEDS: PRAVASTATIN SOD 40 MG TAB PO SCH (07:49)
[2019-12-16] MEDS: ACETAMINOPHEN 500 MG TAB PO SCH ×3 (07:49→21:28)
[2019-12-16] MEDS: CLOPIDOGREL BISULFATE 75 MG TAB PO SCH (07:50)
[2019-12-16] MEDS: LIDOCAINE 5% 1 PATCH TD SCH ×2 (07:50→12:35)
[2019-12-16] MEDS: GABAPENTIN 300 MG CAP PO SCH ×2 (07:50→21:29)
[2019-12-16] MEDS: HEPARIN SOD 5,000 UNIT/0.5 ML VIAL SQ SCH ×2 (07:51→21:28)
[2019-12-16] MEDS: INSULIN GLARGINE SOLOSTAR 100 UNITS/ML 3 ML PEN SQ SCH (07:52)
[2019-12-16] MEDS: POLYETHYLENE (MIRALAX) 17 GM PACK PO SCH ×2 (07:53→21:29)
[2019-12-16] MEDS: DOCUSATE SODIUM/SENNA 50/8.6MG TAB PO SCH ×2 (07:53→21:29)
[2019-12-16] MEDS: INSULIN ASPART 100 UNITS/ML 3 ML PEN SC SCH ×4 (07:54→21:29)
[2019-12-16] MEDS: ERTAPENEM SODIUM 1,000 MG in SODIUM CHLORIDE 0.9% 50 ML IV SCH (09:46)
--- NOTE | 2019-12-16 10:40 | Hospitalist Progress Note ---
Date of Service December 16, 2019 Assessment & Plan (1) Encephalopathy: Metabolic encephalopathy from urinary tract infection present on admission MRI brain 12/11 IMPRESSION: 1. No acute intracranial findings. 2. Exam mildly compromised by motion artifact. 3. No change in a 1.3 cm meningioma overlying the right temporal lobe. 4. Moderate atrophy and small vessel disease. 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 ua with gram negative bactremia started on ceftriaxone, however found to be Enterobacter cloacae resistant to ceftriaxone but sensitive to penicillins and quinolones. continue Ertapenem, day 3, no fever, WBC normal on 12/14 will need 10 days of treatment, likey change to Levofloxacin once better (2) Abdominal pain: chief reason for being sent to the ED from rehab of note she had some pain prior to discharge last admission, but had no pain when she was discharged initial CT on admission showed no acute process, had moderate stool burden she moved her bowels several times, even became loose repeat CT on 12/11 still with no acute process, no clear reason for abdominal pain RUQ US with normal liver, s/p cholecystectomy KUB today with no acute process, no significant stool burden having concerns for some drug seeking behavior she was screaming that she just wanted morphine, would "rather than suffer like this, do not care if I stop breathing from the morphing" after discussing with her daughter, gave 2mg of morphine she immediately calmed down, felt better but wanted to know the dose and how often she can have it will re-assess tomorrow but will likely need to stop Morphine which will be difficult (3) Microcytic anemia: No indication this is an acute bleed. No sign of bleeding on the CT a/p on 12/08. No melena or bright red blood in stool. Iron studies indicated iron deficiency shortly after her surgery - Given 1 unit PRBCs by the ED hgb is 10.6 on 12/14 -Did complete 3 doses of IV iron to help replete iron stores (4) CKD (chronic kidney disease): Baseline Cr ~0,9, CKD Stage III. On admission, acute kidney injury initially resolved, Cr is 1.16 (5) Neurogenic claudication due to lumbar spinal stenosis: S/p spinal decompression/fusion T12-L4 with Dr. Rodrigues on 11/26. - Was to see Emily Smith today - Orthopedic consult for routine follow-up - MINIMAL opioid pain regimen -> Daughter reports oxycodone 2.5 mg PO Q4h PRN as effective without causing altered mental status. Additionally, she had respiratory distress after IV opioids after surgery. (6) Left pontine stroke: In 01/2019. [place] [facility] [place] 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 aspiration pneumonia has been ruled out (8) Obesity hypoventilation syndrome: - Will use BiPap PRN (9) Hypertension: BP presently 160/75. - Continue home beta-andreia (10) GERD (gastroesophageal reflux disease): - Continue PPI BID (11) Morbid obesity: - [employer] Of Event [employer] weight loss - (12) DVT prophylaxis: Heparin 7500 units SQ Q12h Admission and Anticipated Discharge Date Admission Date: December 09, 2019 Subjective patient seen this morning, c/o constant abdominal pain, across entire lower abdomen nothing makes it worse, she says that sitting on the toilet seems to relieve pain a little, sitting in a chair does not help pain still moving her bowels, soft BM, not diarrhea she says that moving bowels does not relieve or exacerbate pain she says the pain is new since her lumbar spine surgery a few weeks ago she got morphine 2mg IV last night at 1am and slept all night peacefully, no issues breathing obtained KUB, no evidence of obstruction or ileus, no signs of significant stool burden checked BMP, electrolytes all stable visited with patient and her sister at the bedside this afternoon, her daughter joined visit over phone on speaker patient in tears, crying out about how much pain she was having said that she would rather than have this pain started to shake with angst, said that she was going to have a seizure while shaking she cried out "I need morphine!!" her sister stated that this is inhumane not treating her pain I discussed that two separate CT scans of the abdomen have not shown an acute process, no infection or inflammation in abdomen she had some constipation but she has been moving her bowels regularly KUB today with no obstruction, no ileus she is voiding well, bladder scan by RN showed no retention I told the patient and her family that I was not sure what I was treating in terms of a source of the pain I was being cautious with opiates as she had required CPAP last admission and nearly stopped breathing spoke with her daughter outside of the room, will try morphine 2mg IV after patient received the morphing she was resting comfortably she was very appreciative, kept thanking me over and over again, holding my hand she wanted to know what dose she received and how often she could get the morphine exhibiting some drug seeking behavior will see how she feels in the morning Review of Systems Review of Systems: All systems reviewed & are unremarkable except as noted in Subjective Physical Exam Constitutional: well developed, + morbidly obese and comfortable; no acute distress Eyes: PERRL, conjunctivae normal, anicteric sclerae ENMT: external ear and nose normal, oropharynx normal Neck: trachea midline, no thyromegaly Respiratory: normal respiratory effort, lungs clear to auscultation Cardiovascular: RRR, no murmur, no edema Gastrointestinal (Abdomen): Inspection/Auscultation: abdomen normal to inspection and normal bowel sounds; abdomen not distended Percussion/Palpation: + abdomen tender (lower abdomen) and abdomen soft; no guarding, abdomen not rigid, no hernia and no ascites Musculoskeletal: no cyanosis or clubbing, extremities motor strength 5/5 Skin: no rashes, warm and dry Neurologic: patellar DTR's 2+ bilat, sensation intact and PERRL, EOMI, accommodation nl, no face palsy, no dysarthria Psychiatric: Orientation: alert and oriented x 3 Affect: + tearful affect Mood: + depressed mood Lymphatic: no cervical or axillary lymphadenopathy Results & Data Results & Data ([facility]) Vital Signs (Past 12 Hours) Vital Signs Temp Pulse Resp BP Pulse Ox 12/16/19 07:17 36.6 C 59 L 18 178/80 H 96 12/15/19 23:25 36.8 C 69 18 175/89 H 96 Laboratory Results Laboratory Results - last 24 hr 12/16/19 12/16/19 12/16/19 07:28 10:42 11:58 Sodium 140 Potassium 4.2 Chloride 107 Carbon Dioxide 27 Anion Gap 6.0 BUN 19 H Creatinine 1.16 Est Cr Clr Drug Dosing 41.6 Est GFR ( Amer) 51.9 Est GFR (Non-Af Amer) 44.7 BUN/Creatinine Ratio 16.2 Glucose 137 H POC Glucose 112 H 177 H Calcium 9.4 12/16/19 12/16/19 16:45 20:08 Sodium Potassium Chloride Carbon Dioxide Anion Gap BUN Creatinine Est Cr Clr Drug Dosing Est GFR ( Amer) Est GFR (Non-Af Amer) BUN/Creatinine Ratio Glucose POC Glucose 111 H 124 H Calcium Medications Administered Current Inpatient Medications Acetaminophen (Acetaminophen 500 Mg Tab) 1,000 mg PO TID SHARMILA Stop: 01/11/20 13:59 Last Admin: 12/16/19 21:28 Dose: 1,000 mg Documented by: Albuterol (Albut/Ipratrop 3mg/0.5mg Neb 3 Ml Vial) 3 ml NEB Q4R PRN PRN Reason: Shortness Of Breath Or Wheezing Stop: 01/08/20 22:59 Clopidogrel Bisulfate (Clopidogrel Bisulfate 75 Mg Tab) 75 mg PO QAM SHARMILA Stop: 01/09/20 08:59 Last Admin: 12/16/19 07:50 Dose: 75 mg Documented by: Dextrose (Dextrose 50% 50 Ml Syringe) 25 - 50 ml IV UD PRN; Protocol PRN Reason: Hypoglycemia Protocol Stop: 01/08/20 20:47 Diclofenac Sodium (Diclofenac Sod 1% Gel 100 Gm Tube) 4 gm EXT TID SHARMILA Stop: 01/10/20 08:59 Last Admin: 12/16/19 21:30 Dose: 4 gm Documented by: Escitalopram Oxalate (Escitalopram Oxalate 20 Mg Tab) 20 mg PO QPM SHARMILA Stop: 01/08/20 20:59 Last Admin: 12/16/19 21:29 Dose: 20 mg Documented by: Gabapentin (Gabapentin 300 Mg Cap) 300 mg PO BID SHARMILA Stop: 01/11/20 20:59 Last Admin: 12/16/19 21:29 Dose: 300 mg Documented by: Glucagon (Glucagon For Inj 1 Mg Vial) 1 mg SQ UD PRN; Protocol PRN Reason: Hypoglycemia Protocol Stop: 01/08/20 20:47 Glucose (Glucose 10 Tabs/Tube) 4 - 8 tabs PO UD PRN; Protocol PRN Reason: Hypoglycemia Protocol Stop: 01/08/20 20:47 Glucose (Glucose 40% Gel 15 Gm Tube) 15 - 30 gm PO UD PRN; Protocol PRN Reason: Hypoglycemia Protocol Stop: 01/08/20 20:47 Heparin Sodium (Porcine) (Heparin Sod 5,000 Unit/0.5 Ml Vial) 7,500 units SQ Q12 SHARMILA Stop: 01/09/20 08:59 Last Admin: 12/16/19 21:28 Dose: 7,500 units Documented by: Lorazepam (Ativan) 0.25 mg in 0.5 mls @ 1 mls/min IV Q4H PRN PRN Reason: Agitation Stop: 01/11/20 17:56 Last Admin: 12/13/19 19:46 Dose: 1 mls/min Documented by: Ertapenem 1,000 mg/ Sodium (Chloride) 60 mls @ 100 mls/hr IV DAILY@0800 SHARMILA Stop: 12/19/19 07:59 Last Infusion: 12/16/19 10:51 Dose: Infused Documented by: Insulin Aspart (Insulin Aspart 100 Units/Ml 3 Ml Pen) 0 units SC ACHS [facility] Stop: 01/08/20 20:59 Last Admin: 12/16/19 21:29 Dose: Not Given Documented by: Insulin Glargine (Insulin Glargine Solostar 100 Units/Ml 3 Ml Pen) 30 units SQ QAM [facility] Stop: 01/13/20 08:59 Last Admin: 12/16/19 07:52 Dose: 30 units Documented by: Lactobacillus Acidophilus (Lactobacillus Acidophilus (Floranex) Tab) 4 tab PO TIDM [facility] Stop: 01/14/20 11:59 Last Admin: 12/16/19 17:05 Dose: 4 tab Documented by: Lidocaine (Lidocaine 5% 1 Patch) 1 patch TD QAM [facility] Stop: 01/11/20 17:29 Last Admin: 12/16/19 07:50 Dose: 1 patch Documented by: Lidocaine (Lidocaine 5% 1 Patch) 1 patch TD QAM [facility] Stop: 01/15/20 10:59 Last Admin: 12/16/19 12:35 Dose: 1 patch Documented by: Melatonin (Melatonin 3 Mg Tab) 3 mg PO HS PRN PRN Reason: Sleep Stop: 01/09/20 23:46 Last Admin: 12/16/19 21:28 Dose: 3 mg Documented by: Metoprolol Succinate (Metoprolol Succ 50mg Ext Rel Tab) 50 mg PO QPM SHARMILA Stop: 01/08/20 20:59 Last Admin: 12/16/19 21:30 Dose: 50 mg Documented by: Miscellaneous (Carbohydrates For Hypoglycemia ) 15 - 30 gm PO UD PRN PRN Reason: Hypoglycemia Protocol Stop: 01/08/20 20:47 Last Admin: 12/12/19 17:00 Dose: 15 gm Documented by: Miscellaneous (Remove Lidoderm Patch) 1 ea N/A DAILY@2100 [facility] Stop: 01/11/20 20:59 Last Admin: 12/16/19 21:29 Dose: 1 ea Documented by: Miscellaneous (Remove Lidoderm Patch) 1 ea N/A DAILY@2100 [facility] Stop: 01/15/20 20:59 Last Admin: 12/16/19 21:29 Dose: 1 ea Documented by: Morphine Sulfate (Morphine Sulfate 2 Mg/Ml Carp) 2 mg IV Q4 PRN PRN Reason: Pain Stop: 12/24/19 18:07 Last Admin: 12/16/19 21:28 Dose: 2 mg Documented by: Ondansetron HCl (Ondansetron Inj 2 Mg/Ml 2 Ml Vial) 4 mg IV Q4H PRN PRN Reason: Nausea Stop: 01/08/20 20:47 Oxycodone HCl (Oxycodone Hcl Ir 5 Mg Tab (Immediate Release)) 2.5 mg PO Q6H PRN PRN Reason: Pain Stop: 12/23/19 20:58 Last Admin: 12/12/19 00:51 Dose: 2.5 mg Documented by: Pantoprazole Sodium (Pantoprazole 40 Mg Tab) 40 mg PO BID [facility] Stop: 01/08/20 20:59 Last Admin: 12/16/19 21:29 Dose: 40 mg Documented by: Polyethylene Glycol (Polyethylene (Miralax) 17 Gm Pack) 17 gm PO BID [facility] Stop: 01/09/20 08:59 Last Admin: 12/16/19 21:29 Dose: Not Given Documented by: Pravastatin Sodium (Pravastatin Sod 40 Mg Tab) 40 mg PO Q2D SHARMILA Stop: 01/11/20 08:59 Last Admin: 12/16/19 07:49 Dose: 40 mg Documented by: Senna/Docusate Sodium (Docusate Sodium/Senna 50/8.6mg Tab) 2 tab PO BID [facility] Stop: 01/09/20 08:59 Last Admin: 12/16/19 21:29 Dose: Not Given Documented by: Sodium Biphosphate/Sodium Phosphate (Sod Phosphate/Sod Biphosphate Enema 132 Ml Btl) 132 ml [place] DAILY PRN PRN Reason: Constipation Stop: 01/09/20 11:02 PG Care Time/CCT Total # of Minutes Spent Total Time Spent: 70 Total Time Spent with Patient: Total time spent is greater than 50% in coordination of care (as documented) at patient's floor/unit and/or counseling patient: two separate visits with patient, 1st visit 15 minutes, 2nd visit 30 minutes with her, her sister and daughter over phone 10 minute discussion with daughter on separate phone call 15 minutes reviewing chart, reviewing labs, looking at images personally including two prior CT scans and KUB today Prolonged Care Time Prolonged Care Time: Yes Total Prolonged Care Time: 35 Coding Level of Care Code 49894 Subseq Hosp Care Lvl 3 Diagnoses Encephalopathy G93.40 Abdominal pain R10.9 Abdominal location: unspecified location Microcytic anemia D50.9 CKD (chronic kidney disease) N18.9 Chronic kidney disease stage: unspecified stage Neurogenic claudication due to lumbar spinal stenosis M48.062 Left pontine stroke I63.50 Aspiration pneumonia J69.0 Aspiration pneumonia type: unspecified Laterality: unspecified laterality Lung location: unspecified part of lung Obesity hypoventilation syndrome E66.2 Hypertension I10 Hypertension type: unspecified GERD (gastroesophageal reflux disease) K21.9 Morbid obesity E66.01 DVT prophylaxis Z29.9 Additional Codes Prolonged Care Time - Prolonged Care Time: Yes ([id number]) (1) CKD (chronic kidney disease) Chronic kidney disease stage: unspecified stage Qualified Code(s): N18.9 - Chronic kidney disease, unspecified (2) Aspiration pneumonia Aspiration pneumonia type: unspecified Laterality: unspecified laterality Lung location: unspecified part of lung Qualified Code(s): J69.0 - Pneumonitis due to inhalation of food and vomit (3) Abdominal pain Abdominal location: unspecified location Qualified Code(s): R10.9 - Unspecified abdominal pain (4) Hypertension Hypertension type: unspecified Qualified Code(s): I10 - Essential (primary) hypertension
[2019-12-16 11:26] LABS: BUN Creatinine Ratio 16.2 (10-20); Calcium 9.4 mg/dl (8.5-10.1); Creatinine Clr Calc Pharmacy 41.6 ml/min; Est GFR (African American) 51.9; Est GFR (Non-African American) 44.7; Potassium 4.2 mmol/L (3.5-5.1)
--- NOTE | 2019-12-16 12:00 | XRay Report ---
PA CHEST WITH ABDOMINAL SERIES CLINICAL HISTORY: Lower abdominal pain. Constipation. FINDINGS: A PA chest radiograph is compared to study dated 12/09/2019. The cardiomediastinal silhouette is unrema rkable noting atherosclerotic calcification of the thoracic aorta. Chronic interstitial thickening is similar to previous. There is mild bibasilar scarring/atelectasis. No airspace consolidation or pleu ral effusion is identified. No pneumothorax is seen. The skeletal structures are osteopenic. The bony thorax is grossly intact. Supine and erect abdominal radiographs are correlated with abdominal CT dated 12/11/2019. Cholecystect kelly clips are seen in the right upper quadrant. There is a nonobstructed abdominal bowel gas pattern. There is minimal fecal retention in the colon. No evidence of intraperitoneal free air is seen. Ther e are no abnormal abdominal calcifications. The lumbosacral spine and bony pelvis appear intact. Exte nsive fusion hardware is noted in the thoracal lumbar spine. IMPRESSION: 1. No active disease in the chest. 2. Nonobstructed abdominal bowel gas pattern. ACT 112: Negative or not required by law. Electronically signed by: Joey Patterson M.D. 12/16/2019 11:59 AM
[2019-12-16] MEDS ORDERED: MoRPHine SULFATE 2 MG/ML CARP IV STA (15:31)
[2019-12-16] MEDS: MELATONIN 3 MG TAB PO PRN (21:28)
[2019-12-16] MEDS: ESCITALOPRAM OXALATE 20 MG TAB PO SCH (21:29)
[2019-12-16] MEDS: METOPROLOL SUCC 50MG EXT REL TAB PO SCH (21:30)
[2019-12-17] MEDS: MoRPHine SULFATE 2 MG/ML CARP IV PRN (03:04)
[2019-12-17] MEDS: OXYCODONE HCL IR 5 MG TAB (IMMEDIATE RELEASE) PO PRN (08:39)
[2019-12-17] MEDS: PANTOprazole 40 MG TAB PO SCH ×2 (08:40→21:26)
[2019-12-17] MEDS: ERTAPENEM SODIUM 1,000 MG in SODIUM CHLORIDE 0.9% 50 ML IV SCH (08:40)
[2019-12-17] MEDS: CLOPIDOGREL BISULFATE 75 MG TAB PO SCH (08:40)
[2019-12-17] MEDS: GABAPENTIN 300 MG CAP PO SCH ×2 (08:40→21:24)
[2019-12-17] MEDS: ACETAMINOPHEN 500 MG TAB PO SCH ×3 (08:41→21:25)
[2019-12-17] MEDS: LACTOBACILLUS ACIDOPHILUS (FLORANEX) TAB PO SCH ×3 (08:41→18:09)
[2019-12-17] MEDS: DOCUSATE SODIUM/SENNA 50/8.6MG TAB PO SCH ×2 (08:42→18:10)
[2019-12-17] MEDS: HEPARIN SOD 5,000 UNIT/0.5 ML VIAL SQ SCH ×2 (08:42→21:22)
[2019-12-17] MEDS: POLYETHYLENE (MIRALAX) 17 GM PACK PO SCH ×4 (08:42→21:32)
[2019-12-17] MEDS: LIDOCAINE 5% 1 PATCH TD SCH ×2 (08:43→08:45)
[2019-12-17] MEDS: INSULIN GLARGINE SOLOSTAR 100 UNITS/ML 3 ML PEN SQ SCH (08:46)
[2019-12-17] MEDS: INSULIN ASPART 100 UNITS/ML 3 ML PEN SC SCH ×4 (08:47→21:27)
[2019-12-17] MEDS: DICLOFENAC SOD 1% GEL 100 GM TUBE EXT SCH ×3 (08:53→21:33)
--- NOTE | 2019-12-17 14:24 | Hospitalist Progress Note ---
Date of Service December 17, 2019 Assessment & Plan (1) Encephalopathy: Metabolic encephalopathy from urinary tract infection present on admission MRI brain 12/11 IMPRESSION: 1. No acute intracranial findings. 2. Exam mildly compromised by motion artifact. 3. No change in a 1.3 cm meningioma overlying the right temporal lobe. 4. Moderate atrophy and small vessel disease. 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 ua with gram negative bactremia started on ceftriaxone, however found to be Enterobacter cloacae resistant to ceftriaxone but sensitive to penicillins and quinolones. continue Ertapenem, day 4, no fever, WBC normal on 12/14 will need 10 days of treatment, going to [facility] could either continue the Ertapenem or change to Levaquin, decide tomorrow (2) Abdominal pain: chief reason for being sent to the ED from rehab of note she had some pain prior to discharge last admission, but had no pain when she was discharged initial CT on admission showed no acute process, had moderate stool burden she moved her bowels several times, even became loose repeat CT on 12/11 still with no acute process, no clear reason for abdominal pain RUQ US with normal liver, s/p cholecystectomy KUB 12/15 with no acute process, no significant stool burden having concerns for some drug seeking behavior she was screaming that she just wanted morphine, would "rather than suffer like this, do not care if I stop breathing from the morphine" on 12/15 after discussing with her daughter, gave 2mg of morphine she immediately calmed down, felt better now off morphine, using Oxycodone 2.5mg that she was prescribed at [facility] will continue this, no further morphine (3) Microcytic anemia: No indication this is an acute bleed. No sign of bleeding on the CT a/p on 12/08. No melena or bright red blood in stool. Iron studies indicated iron deficiency shortly after her surgery - Given 1 unit PRBCs by the ED hgb is 10.6 on 12/14 -Did complete 3 doses of IV iron to help replete iron stores (4) CKD (chronic kidney disease): Baseline Cr ~0,9, CKD Stage III. On admission, acute kidney injury initially resolved, Cr is 1.16 (5) Neurogenic claudication due to lumbar spinal stenosis: S/p spinal decompression/fusion T12-L4 with Dr. Rodrigues on 11/26. - Was to see Emily Smith today - Orthopedic consult for routine follow-up - MINIMAL opioid pain regimen -> Daughter reports oxycodone 2.5 mg PO Q4h PRN as effective without causing altered mental status. Additionally, she had respiratory distress after IV opioids after surgery. (6) Left pontine stroke: In 01/2019. Follows with [facility] [place] [facility]. 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 aspiration pneumonia has been ruled out (8) Obesity hypoventilation syndrome: - Will use BiPap PRN (9) Hypertension: BP presently 160/75. - Continue home beta-andreia (10) GERD (gastroesophageal reflux disease): - Continue PPI BID (11) Morbid obesity: - [employer] weight loss - (12) DVT prophylaxis: Heparin 7500 units SQ Q12h Admission and Anticipated Discharge Date Admission Date: December 09, 2019 Anticipated date of discharge: 12/18/19 Subjective patient doing much better today, she is smiling, pain is minimal she is eating well, moving her bowels, hardly any lower abdominal pain she has been using Oxycodone 2.5mg PRN for pain, no morphine since this morning she slept well last night met with her daughter at the bedside will get PT/OT to evaluate her, plan for [facility] tomorrow Review of Systems Review of Systems: All systems reviewed & are unremarkable except as noted in Subjective Gastrointestinal: + abdominal pain (mild, lower) Physical Exam Constitutional: well developed, + morbidly obese and comfortable; no acute distress Eyes: PERRL, conjunctivae normal, anicteric sclerae ENMT: external ear and nose normal, oropharynx normal Neck: trachea midline, no thyromegaly Respiratory: normal respiratory effort, lungs clear to auscultation Cardiovascular: RRR, no murmur, no edema Gastrointestinal (Abdomen): Inspection/Auscultation: abdomen normal to inspection and normal bowel sounds; abdomen not distended Percussion/Palpation: + abdomen tender (lower abdomen) and abdomen soft; no guarding, abdomen not rigid, no hernia and no ascites Musculoskeletal: no cyanosis or clubbing, extremities motor strength 5/5 Skin: no rashes, warm and dry Neurologic: patellar DTR's 2+ bilat, sensation intact and PERRL, EOMI, accommodation nl, no face palsy, no dysarthria Psychiatric: Orientation: alert and oriented x 3 Lymphatic: no cervical or axillary lymphadenopathy Results & Data Results & Data ([facility]) Vital Signs (Past 12 Hours) Vital Signs Temp Pulse Resp BP Pulse Ox 12/17/19 07:12 36.9 C 62 16 161/73 H 95 Laboratory Results Laboratory Results - last 24 hr 12/16/19 12/16/19 12/17/19 16:45 20:08 07:26 POC Glucose 111 H 124 H 127 H 12/17/19 11:44 POC Glucose 145 H Medications Administered Current Inpatient Medications Acetaminophen (Acetaminophen 500 Mg Tab) 1,000 mg PO TID SHARMILA Stop: 01/11/20 13:59 Last Admin: 12/17/19 13:13 Dose: 1,000 mg Documented by: Albuterol (Albut/Ipratrop 3mg/0.5mg Neb 3 Ml Vial) 3 ml NEB Q4R PRN PRN Reason: Shortness Of Breath Or Wheezing Stop: 01/08/20 22:59 Clopidogrel Bisulfate (Clopidogrel Bisulfate 75 Mg Tab) 75 mg PO QAM SHARMILA Stop: 01/09/20 08:59 Last Admin: 12/17/19 08:40 Dose: 75 mg Documented by: Dextrose (Dextrose 50% 50 Ml Syringe) 25 - 50 ml IV UD PRN; Protocol PRN Reason: Hypoglycemia Protocol Stop: 01/08/20 20:47 Diclofenac Sodium (Diclofenac Sod 1% Gel 100 Gm Tube) 4 gm EXT TID SHARMILA Stop: 01/10/20 08:59 Last Admin: 12/17/19 13:13 Dose: Not Given Documented by: Escitalopram Oxalate (Escitalopram Oxalate 20 Mg Tab) 20 mg PO QPM SHARMILA Stop: 01/08/20 20:59 Last Admin: 12/16/19 21:29 Dose: 20 mg Documented by: Gabapentin (Gabapentin 300 Mg Cap) 300 mg PO BID SHARMILA Stop: 01/11/20 20:59 Last Admin: 12/17/19 08:40 Dose: 300 mg Documented by: Glucagon (Glucagon For Inj 1 Mg Vial) 1 mg SQ UD PRN; Protocol PRN Reason: Hypoglycemia Protocol Stop: 01/08/20 20:47 Glucose (Glucose 10 Tabs/Tube) 4 - 8 tabs PO UD PRN; Protocol PRN Reason: Hypoglycemia Protocol Stop: 01/08/20 20:47 Glucose (Glucose 40% Gel 15 Gm Tube) 15 - 30 gm PO UD PRN; Protocol PRN Reason: Hypoglycemia Protocol Stop: 01/08/20 20:47 Heparin Sodium (Porcine) (Heparin Sod 5,000 Unit/0.5 Ml Vial) 7,500 units SQ Q12 SHARMILA Stop: 01/09/20 08:59 Last Admin: 12/17/19 08:42 Dose: 7,500 units Documented by: Lorazepam (Ativan) 0.25 mg in 0.5 mls @ 1 mls/min IV Q4H PRN PRN Reason: Agitation Stop: 01/11/20 17:56 Last Admin: 12/13/19 19:46 Dose: 1 mls/min Documented by: Ertapenem 1,000 mg/ Sodium (Chloride) 60 mls @ 100 mls/hr IV DAILY@0800 SHARMILA Stop: 12/19/19 07:59 Last Infusion: 12/17/19 09:58 Dose: Infused Documented by: Insulin Aspart (Insulin Aspart 100 Units/Ml 3 Ml Pen) 0 units SC ACHS SHARMILA Stop: 01/08/20 20:59 Last Admin: 12/17/19 13:15 Dose: 5 units Documented by: Insulin Glargine (Insulin Glargine Solostar 100 Units/Ml 3 Ml Pen) 30 units SQ QAM SHARMILA Stop: 01/13/20 08:59 Last Admin: 12/17/19 08:46 Dose: 30 units Documented by: Lactobacillus Acidophilus (Lactobacillus Acidophilus (Floranex) Tab) 4 tab PO TIDM SHARMILA Stop: 01/14/20 11:59 Last Admin: 12/17/19 13:12 Dose: 4 tab Documented by: Lidocaine (Lidocaine 5% 1 Patch) 1 patch TD QAM SHARMILA Stop: 01/11/20 17:29 Last Admin: 12/17/19 08:43 Dose: 1 patch Documented by: Lidocaine (Lidocaine 5% 1 Patch) 1 patch TD QAM [facility] Stop: 01/15/20 10:59 Last Admin: 12/17/19 08:45 Dose: 1 patch Documented by: Melatonin (Melatonin 3 Mg Tab) 3 mg PO HS PRN PRN Reason: Sleep Stop: 01/09/20 23:46 Last Admin: 12/16/19 21:28 Dose: 3 mg Documented by: Metoprolol Succinate (Metoprolol Succ 50mg Ext Rel Tab) 50 mg PO QPM SHARMILA Stop: 01/08/20 20:59 Last Admin: 12/16/19 21:30 Dose: 50 mg Documented by: Miscellaneous (Carbohydrates For Hypoglycemia ) 15 - 30 gm PO UD PRN PRN Reason: Hypoglycemia Protocol Stop: 01/08/20 20:47 Last Admin: 12/12/19 17:00 Dose: 15 gm Documented by: Geraaneous (Remove Lidoderm Patch) 1 ea N/A DAILY@2100 SHARMILA Stop: 01/11/20 20:59 Last Admin: 12/16/19 21:29 Dose: 1 ea Documented by: Renettacellaneous (Remove Lidoderm Patch) 1 ea N/A DAILY@2100 SHARMILA Stop: 01/15/20 20:59 Last Admin: 12/16/19 21:29 Dose: 1 ea Documented by: Morphine Sulfate (Morphine Sulfate 2 Mg/Ml Carp) 2 mg IV Q4 PRN PRN Reason: Pain Stop: 12/24/19 18:07 Last Admin: 12/17/19 03:04 Dose: 2 mg Documented by: Ondansetron HCl (Ondansetron Inj 2 Mg/Ml 2 Ml Vial) 4 mg IV Q4H PRN PRN Reason: Nausea Stop: 01/08/20 20:47 Oxycodone HCl (Oxycodone Hcl Ir 5 Mg Tab (Immediate Release)) 2.5 mg PO Q6H PRN PRN Reason: Pain Stop: 12/23/19 20:58 Last Admin: 12/17/19 08:39 Dose: 2.5 mg Documented by: Pantoprazole Sodium (Pantoprazole 40 Mg Tab) 40 mg PO BID SHARMILA Stop: 01/08/20 20:59 Last Admin: 12/17/19 08:40 Dose: 40 mg Documented by: Polyethylene Glycol (Polyethylene (Miralax) 17 Gm Pack) 17 gm PO BID SHARMILA Stop: 01/09/20 08:59 Last Admin: 12/17/19 13:13 Dose: 17 gm Documented by: Pravastatin Sodium (Pravastatin Sod 40 Mg Tab) 40 mg PO Q2D SHARMILA Stop: 01/11/20 08:59 Last Admin: 12/16/19 07:49 Dose: 40 mg Documented by: Senna/Docusate Sodium (Docusate Sodium/Senna 50/8.6mg Tab) 2 tab PO BID SHARMILA Stop: 01/09/20 08:59 Last Admin: 12/17/19 08:42 Dose: Not Given Documented by: Sodium Biphosphate/Sodium Phosphate (Sod Phosphate/Sod Biphosphate Enema 132 Ml Btl) 132 ml ND DAILY PRN PRN Reason: Constipation Stop: 01/09/20 11:02 PG Care Time/CCT Total # of Minutes Spent Total Time Spent with Patient: Total time spent is greater than 50% in coordination of care (as documented) at patient's floor/unit and/or counseling patient: Coding Level of Care Code 67882 Subseq Hosp Care Lvl 2 Diagnoses Encephalopathy G93.40 Abdominal pain R10.9 Abdominal location: unspecified location Microcytic anemia D50.9 CKD (chronic kidney disease) N18.9 Chronic kidney disease stage: unspecified stage Neurogenic claudication due to lumbar spinal stenosis M48.062 Left pontine stroke I63.50 Aspiration pneumonia J69.0 Aspiration pneumonia type: unspecified Laterality: unspecified laterality Lung location: unspecified part of lung Obesity hypoventilation syndrome E66.2 Hypertension I10 Hypertension type: unspecified GERD (gastroesophageal reflux disease) K21.9 Morbid obesity E66.01 DVT prophylaxis Z29.9 (1) Abdominal pain Abdominal location: unspecified location Qualified Code(s): R10.9 - Unspecified abdominal pain (2) CKD (chronic kidney disease) Chronic kidney disease stage: unspecified stage Qualified Code(s): N18.9 - Chronic kidney disease, unspecified (3) Aspiration pneumonia Aspiration pneumonia type: unspecified Laterality: unspecified laterality Lung location: unspecified part of lung Qualified Code(s): J69.0 - Pneumonitis due to inhalation of food and vomit (4) Hypertension Hypertension type: unspecified Qualified Code(s): I10 - Essential (primary) hypertension
[2019-12-17] MEDS: METOPROLOL SUCC 50MG EXT REL TAB PO SCH (21:23)
[2019-12-17] MEDS: ESCITALOPRAM OXALATE 20 MG TAB PO SCH (21:24)
[2019-12-17] MEDS: MELATONIN 3 MG TAB PO PRN (21:25)
[2019-12-18] MEDS: OXYCODONE HCL IR 5 MG TAB (IMMEDIATE RELEASE) PO PRN (02:21)
[2019-12-18 07:52] LABS: Hematocrit (blood only) 36.5 % (37-47); Hemoglobin 10.9 g/dL (12.0-16.0); Mean Corpuscular Hemoglobin 23.2 pg (25-34); Mean Corpuscular Hgb Conc 29.9 g/dL (32-36); Mean Corpuscular Volume 77.8 fL (80-100); Mean Platelet Volume 8.4 fL (7.4-10.4); Platelet Count 114 K/uL (130-400); RDW Coefficient of Variation 19.6 % (11.5-14.5); RDW Standard Deviation 49.9 fL (36.4-46.3); Red Blood Count 4.69 M/uL (4.2-5.4); White Blood Count 4.23 K/uL (4.8-10.8)
[2019-12-18] MEDS: PANTOprazole 40 MG TAB PO SCH (09:02)
[2019-12-18] MEDS: LACTOBACILLUS ACIDOPHILUS (FLORANEX) TAB PO SCH ×2 (09:02→12:23)
[2019-12-18] MEDS: GABAPENTIN 300 MG CAP PO SCH (09:02)
[2019-12-18] MEDS: ACETAMINOPHEN 500 MG TAB PO SCH (09:02)
[2019-12-18] MEDS: CLOPIDOGREL BISULFATE 75 MG TAB PO SCH (09:02)
[2019-12-18] MEDS: PRAVASTATIN SOD 40 MG TAB PO SCH (09:03)
[2019-12-18] MEDS: POLYETHYLENE (MIRALAX) 17 GM PACK PO SCH (09:03)
[2019-12-18] MEDS: DOCUSATE SODIUM/SENNA 50/8.6MG TAB PO SCH ×2 (09:03→09:34)
[2019-12-18] MEDS: INSULIN GLARGINE SOLOSTAR 100 UNITS/ML 3 ML PEN SQ SCH (09:04)
[2019-12-18] MEDS: LIDOCAINE 5% 1 PATCH TD SCH ×2 (09:04)
[2019-12-18] MEDS: INSULIN ASPART 100 UNITS/ML 3 ML PEN SC SCH ×2 (09:05→12:22)
[2019-12-18] MEDS: HEPARIN SOD 5,000 UNIT/0.5 ML VIAL SQ SCH (09:05)
[2019-12-18] MEDS: DICLOFENAC SOD 1% GEL 100 GM TUBE EXT SCH ×2 (09:14→09:20)
[2019-12-18] MEDS: ERTAPENEM SODIUM 1,000 MG in SODIUM CHLORIDE 0.9% 50 ML IV SCH ×2 (09:16→09:34)
[2019-12-18] MEDS ORDERED: levoFLOXacin 500 MG TAB PO STA (12:35)
--- NOTE | 2019-12-20 10:37 | Discharge Summary ---
Date of Service December 18, 2019 Admission HPI Per Admitting Provider 79yo F w/ hx of DM and back fusion who presents with abdominal pain, weakness, and fatigue. The patient was recently admitted to [facility] with Dr. Rodrigues for a spinal fusion T12-L4 on 11/26. She had a relatively long hospital course that was complicated by confusion and respiratory issues due to opioid administration, but was discharged to [facility] on 12/01. She was recently discharged home from [facility], and her daughter reports that she has had continued abdominal pain. The daughter reports the abdominal pain started the same day after surgery. She reports it is a right upper quadrant pain that radiates around toward the epigastric area. Initially, it was thought this was due to positioning during the surgery; however, the daughter is not sure now that it has been going on for so long. The daughter reports that the pain has not really improved. At [facility], she had constipation and was given an enema. The daughter reports she was never told of any blood or melenic stools. In the ED, she was found to have a hgb of 7.7. This was thought to represent symptomatic anemia, and she was given 1 unit PRBCs. Prior to my arrival, the patient was given hydromorphone, morphine, and IV Benadryl, and as such she is unable to give any meaningful history. Principal Diagnosis Abdominal pain Discharge Exam Constitutional well developed, + morbidly obese and comfortable; no acute distress Eyes PERRL, conjunctivae normal, anicteric sclerae ENMT external ear and nose normal, oropharynx normal Neck trachea midline, no thyromegaly Respiratory normal respiratory effort, lungs clear to auscultation Cardiovascular RRR, no murmur, no edema Gastrointestinal (Abdomen) Inspection/Auscultation: abdomen normal to inspection and normal bowel sounds; abdomen not distended Percussion/Palpation: abdomen soft; abdomen nontender, no guarding, abdomen not rigid, no hernia and no ascites Musculoskeletal no cyanosis or clubbing, extremities motor strength 5/5 Skin no rashes, warm and dry Neurologic patellar DTR's 2+ bilat, sensation intact and PERRL, EOMI, accommodation nl, no face palsy, no dysarthria Psychiatric Orientation: alert and oriented x 3 Lymphatic no cervical or axillary lymphadenopathy Discharge Data Allergies Allergy/AdvReac Type Severity Reaction Status Date / Time Bactrim Allergy Severe THROAT Verified 05/14/15 15:22 CLOSED celecoxib [From Celebrex] Allergy Severe CAUSED Verified 11/27/19 07:24 STROKE meperidine Allergy Severe almost Verified 11/27/19 07:24 "closed throat" midodrine Allergy Severe "almost Verified 11/27/19 07:24 closed throat" Penicillins Allergy Severe ANAPHYLAXIS Verified 11/27/19 07:24 Quinolones Allergy Severe TOLERATED Verified 11/27/19 07:24 LEVAQUIN IV - AUG 07 sulfamethoxazole Allergy Severe THROAT Verified 11/27/19 07:24 CLOSED trimethoprim Allergy Severe THROAT Verified 11/27/19 07:24 CLOSED diphenoxylate Allergy Intermediate Unknown Verified 11/27/19 07:24 metronidazole [From Flagyl] Allergy Intermediate Hives Verified 11/27/19 07:24 DENILSON Inhibitors Allergy Unknown unknown to Verified 11/27/19 07:24 pt atropine Allergy Unknown Unknown Verified 11/27/19 07:24 carvedilol Allergy Unknown Unknown Verified 11/27/19 07:24 clonazepam [From Klonopin] Allergy Unknown Unknown Verified 11/27/19 07:24 doxycycline Allergy Unknown Unknown Verified 11/27/19 07:24 furosemide [From Lasix] Allergy Unknown Unknown Verified 11/27/19 07:24 Histamine H2 Inhibitors Allergy Unknown unknown to Verified 11/27/19 07:24 pt Iodinated Contrast Media Allergy Unknown JULY 2017 Verified 11/27/19 07:24 [facility] -- TOLERATED WITH SLOW INFUSION PER PATIENT nitrofurantoin Allergy Unknown Unknown Verified 11/27/19 07:24 phenazopyridine Allergy Unknown Unknown Verified 11/27/19 07:24 ranitidine Allergy Unknown Unknown Verified 11/27/19 07:24 repaglinide Allergy Unknown Unknown Verified 11/27/19 07:24 rosiglitazone Allergy Unknown Unknown Verified 11/27/19 07:24 tolterodine [From Detrol] Allergy Unknown Unknown Verified 11/27/19 07:24 aspartame Allergy Verified 11/27/19 07:24 [From Nutrasweet Aspartame] cantaloupe Allergy Verified 12/10/19 18:59 melon Allergy Verified 12/10/19 16:05 prednisone Allergy Verified 11/27/19 07:24 watermelon Allergy Verified 12/10/19 18:59 citalopram [From Celexa] AdvReac Severe Verified 11/27/19 07:24 glyburide AdvReac Intermediate SEVERE Verified 11/27/19 07:24 ABDOMINAL PAIN metformin AdvReac Intermediate SEVERE Verified 11/27/19 07:24 ABDOMINAL PAIN oxycodone AdvReac Intermediate SEVERE Verified 11/27/19 07:24 WITHDRAWAL SYMPTOMS WHEN TRYING TO STOP TAKING paroxetine AdvReac Intermediate DID NOT Verified 11/27/19 07:24 HELP temazepam AdvReac Intermediate DID NOT Verified 11/27/19 07:24 HELP tramadol AdvReac Intermediate Vomiting Verified 11/27/19 07:24 diazepam AdvReac Mild SEDATION Verified 11/27/19 07:24 LASTING TOO LONG meloxicam [From Mobic] AdvReac Mild SICK TO Verified 11/27/19 07:24 STOMACH albuterol AdvReac Unknown UNK Verified 11/27/19 07:24 carbamazepine AdvReac Unknown Unknown Verified 11/27/19 07:24 ibuprofen AdvReac Unknown Unknown Verified 11/27/19 07:24 lisinopril AdvReac Unknown UNK Verified 11/27/19 07:24 mirtazapine AdvReac Unknown Unknown Verified 11/27/19 07:24 olanzapine AdvReac Unknown Unknown Verified 11/27/19 07:24 rofecoxib AdvReac Unknown Unknown Verified 11/27/19 07:24 valproic acid AdvReac Unknown Unknown Verified 11/27/19 07:24 Consultations 12/09/19 18:11 ED Decision to Admit Stat 12/09/19 22:33 Consult Orthopedic Surgery Routine Ordered Studies 12/09/19 16:08 CT abd pelvis IV con only Stat 12/09/19 22:29 US gallbladder Routine 12/11/19 13:12 CT abd pelvis oral con only Routine 12/12/19 17:11 MR brain wo con Routine Hospital Course (1) Encephalopathy: Metabolic encephalopathy from urinary tract infection present on admission MRI brain 12/11 IMPRESSION: 1. No acute intracranial findings. 2. Exam mildly compromised by motion artifact. 3. No change in a 1.3 cm meningioma overlying the right temporal lobe. 4. Moderate atrophy and small vessel disease. 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 ua with gram negative bactremia started on ceftriaxone, however found to be Ent erobacter cloacae resistant to ceftriaxone but sensitive to penicillins and quinolones. continue Ertapenem, day 5, no fever, WBC normal on 12/14 will need 10 days of treatment, going to [facility] tried to get peripheral guided IV but could not be placed change to Levaquin 500mg daily on discharge (2) Abdominal pain: chief reason for being sent to the ED from rehab of note she had some pain prior to discharge last admission, but had no pain when she was discharged initial CT on admission showed no acute process, had moderate stool burden she moved her bowels several times, even became loose repeat CT on 12/11 still with no acute process, no clear reason for abdominal pain RUQ US with normal liver, s/p cholecystectomy KUB 12/15 with no acute process, no significant stool burden now off morphine, using Oxycodone 2.5mg that she was prescribed at [facility] will continue this, no further morphine suspect pain could be referred pain from recent lumbar surgery? as above, it is controlled with small dose of Oxycodone (3) Microcytic anemia: No indication this is an acute bleed. No sign of bleeding on the CT a/p on 12/08. No melena or bright red blood in stool. Iron studies indicated iron deficiency shortly after her surgery - Given 1 unit PRBCs by the ED hgb is 10.6 on 12/14 -Did complete 3 doses of IV iron to help replete iron stores (4) CKD (chronic kidney disease): Baseline Cr ~0,9, CKD Stage III. On admission, acute kidney injury initially resolved, Cr is 1.16 (5) Neurogenic claudication due to lumbar spinal stenosis: S/p spinal decompression/fusion T12-L4 with Dr. Rodrigues on 11/26. - Was to see Emily Smith today - Orthopedic consult for routine follow-up - MINIMAL opioid pain regimen -> Daughter reports oxycodone 2.5 mg PO Q4h PRN as effective without causing altered mental status. Additionally, she had respiratory distress after IV opioids after surgery. (6) Left pontine stroke: In 01/2019. Follows with [facility] neurology. - Continue Plavix, statin (7) Obesity hypoventilation syndrome: - Will use BiPap PRN (8) Hypertension: BP presently 160/75. - Continue home beta-andreia (9) GERD (gastroesophageal reflux disease): - Continue PPI BID (10) Morbid obesity: - [employer] weight loss - Total Time Total Time Spent Total Time Spent (In Minutes): 33 minutes Total Time Includes: Examination of the Patient, Discharge Planning and Medication Reconciliation Discharge Plan Discharge Items Patient Disposition: Transfer Inpatient Rehab Fac Reason For Visit: abdominal pain Discharge Diagnosis: Abdominal pain UTI, enterobacter Recent lumbar surgery, deconditioning Condition on Discharge: Good Activity: Resume your previous activity Non-emergency contact: Primary Care Provider Call non-emergency contact if: you have any medication questions, your symptoms worsen and your pain is not controlled Follow-up/Referrals: Darwin Lugo III, CRNP [Primary Care Provider] - (2-3 weeks) [facility] [Non-Staff] - (see provider this week) Diet: Carb Consistent or DM2 Addtl Attending Provider Instructions: Medications: - OXYCODONE: patient has been tolerating 2.5mg every 6 hours as needed for abdominal pain, DO NOT give more that 2.5mg as this can cause mental status changes - VOLTAREN: apply twice a day to right leg, helping with pain - LEVAQUIN: complete 5 more days for Enterobacter UTI Abdominal pain: unclear etiology, initially thought to be due to constipation but she still had pain despite moving her bowels a lot CT scan on 12/07 and 12/11 with no acute abnormalities KUB with no obstruction, no ileus, no stool burden could be referred pain from recent lumbar surgery as she did not have the abdominal pain prior to lumbar surgery and she experienced the pain prior to being discharged last time we were using Lidoderm patches 5% as well, could consider continuing them but try just using the Oxycodone for now she is obsessed with moving her bowels, so much so that she has developed loose stools from Senokot 2 tab BID and Miralax just use bowel regimen PRN for now UTI, enterobacter: initially on Rocephin but found that it was resistant changed to Ertapenem on 12/13, tolerated well will change to Levaquin PO for 5 more days no fever, no dysuria UTI could have contributed to mental status changes Lumbar surgery: recent surgery from T12 to L4 moving well, needs further rehab to improve strength [facility] Pending Studies at Discharge: No Stand-Alone Forms: My [facility] Skilled Items Patient informed of condition?: Yes DNR: Yes (conditional, would want CPR, shocked, does not want intubated) Discharge Level of Care: Acute rehab Communicable Disease: No Discharge Prognosis: Improving Lines: None Urinary Catheter: No Medications and DC Order Prescriptions: New oxycodone 5 mg Tablet 2.5 mg PO Q6H PRN (Reason: pain) 10 Days Qty: 30 RF: 0 diclofenac sodium [Voltaren] 1 % Gel 4 g EXT BID 10 Days Qty: 100 RF: 1 Continued clopidogrel [Plavix] 75 mg tablet 75 mg PO QAM Qty: 30 RF: 1 gabapentin [Neurontin] 300 mg capsule 600 mg PO BID Qty: 60 RF: 5 cholecalciferol (vitamin D3) [Vitamin D3] 125 mcg (5,000 unit) tablet 5,000 unit PO QAM Qty: 30 RF: 5 pantoprazole 40 mg tablet,delayed release (DR/EC) 40 mg PO BID Qty: 60 RF: 5 loperamide [Imodium A-D] 2 mg capsule 4 mg PO .COMPLEX PRN (Reason: Diarrhea) RF: 0 escitalopram oxalate 20 mg tablet 20 mg PO HS RF: 0 ketoconazole 2 % shampoo 1 appln TOP Q14D Qty: 120 RF: 0 docusate sodium [Colace] 100 mg capsule 100 mg PO BID RF: 0 epinephrine 0.3 mg/0.3 mL auto-injector 0.3 mg IM DIRECTED PRN (Reason: Anaphylaxis) RF: 0 biotin 5,000 mcg Tablet,Disintegrating 5,000 mcg PO BID RF: 0 coenzyme Q10 200 mg capsule 200 mg PO QAM RF: 0 metoprolol succinate [Toprol XL] 50 mg tablet extended release 24 hr 50 mg PO QPM RF: 0 melatonin 3 mg Tablet 9 mg PO HS PRN (Reason: Insomnia) RF: 0 diphenhydramine HCl [Benadryl] 25 mg Capsule 25 mg PO HS PRN (Reason: Insomnia) RF: 0 ferrous sulfate 325 mg (65 mg iron) Tablet 325 mg PO BIDM RF: 0 loratadine 10 mg Tablet 10 mg PO DAILY PRN (Reason: Allergy Symptoms) RF: 0 vitamin A-vitamin C-vit E-min Tablet 1 tab PO BID RF: 0 pravastatin 40 mg tablet 40 mg PO Q48H RF: 0 nitroglycerin 0.4 mg tablet, sublingual 0.4 mg sublingual DIRECTED PRN (Reason: Chest Pain) RF: 0 albuterol sulfate [Ventolin HFA] 90 mcg/actuation HFA aerosol inhaler 1 puff INHALATION Q4H PRN (Reason: Wheezing) RF: 0 insulin aspart U-100 [Novolog Flexpen U-100 Insulin] 100 unit/mL (3 mL) insulin pen SUBCUT TIDM RF: 0 Lantus U-100 Insulin 100 unit/mL Solution 25 unit SUBCUT Q12H RF: 0 Humulin R Regular U-100 Insuln 100 unit/mL Solution 1 sliding scale dose SUBCUT USEASDIRECTD RF: 0 acetaminophen 325 mg Tablet 650 mg PO Q4H PRN (Reason: Pain) RF: 0 sennosides-docusate sodium [Senokot-S] 8.6-50 mg Tablet 1 tab PO QDL PRN (Reason: Constipation) RF: 0 Fleet Enema 19-7 gram/118 mL Enema 118 ml NH DAILY PRN (Reason: Constipation) RF: 0 polyethylene glycol 3350 [Miralax] 17 gram/dose Powder 17 g PO QDL PRN (Reason: Constipation) RF: 0 magnesium hydroxide [Milk of Magnesia] 400 mg/5 mL Suspension 30 ml PO DAILY PRN (Reason: Constipation) RF: 0 bisacodyl 10 mg Suppository 10 mg NH DAILY PRN (Reason: Constipation) RF: 0 Discontinued oxycodone 5 mg tablet 5 mg PO Q4H PRN (Reason: Pain) RF: 0 Discharge Orders: Discharge Order (Routine); Ordered 12/18/19 Ordered By: Reji Maria/Other Patient Handouts: Managing Type 2 Diabetes Admission Data Admit Date/Time: 12/09/19 19:10 Attending Provider: Reji Mijares Admit Provider: Jason Chandler Primary Care Provider: Darwin Lugo III Other Providers: Jason Chandler ; Emily Smith ; [facility] Other Interventions: Discharge Summary Assessment (RN) Last Done: 12/18/19 12:39 Coding Level of Care Code D/C Day Management >30 mins Diagnoses Encephalopathy G93.40 Abdominal pain R10.9 Abdominal location: unspecified location Microcytic anemia D50.9 CKD (chronic kidney disease) N18.9 Chronic kidney disease stage: unspecified stage Neurogenic claudication due to lumbar spinal stenosis M48.062 Left pontine stroke I63.50 Obesity hypoventilation syndrome E66.2 Hypertension I10 Hypertension type: unspecified GERD (gastroesophageal reflux disease) K21.9 Morbid obesity E66.01
== END 2019-12-18 13:05 | DRG 689 ==
LOC: ED 15:03 → 2W 19:10 → SUATTDRO 19:10 → 2W 20:25

== ENCOUNTER 2020-01-08 10:02 | Inpatient (IN) ==
[2020-01-08] MEDS ORDERED: ONDANSETRON 4 MG OD TAB PO STA (11:02)
[2020-01-08 12:31] LABS: Appearance Urine Clear (Clear); Bilirubin Urine Negative (Negative); Blood Urine Negative (Negative); Color Urine Yellow; Glucose Urine UA Negative (Negative); Ketones Urine Negative (Negative); Leukocyte Esterase Urine Negative (Negative); Nitrite Urine Negative (Negative); Protein Urine Negative (Negative); Urobilinogen Urine Negative (Negative)
[2020-01-08] MEDS ORDERED: SODIUM CHLORIDE 0.9% 500 ML IV ONE (12:43)
[2020-01-08 13:02] LABS: Basophils # (auto) 0.01 K/uL (0-0.2); Basophils % (auto) 0.3 %; Eosinophils # (auto) 0.12 K/uL (0-0.5); Eosinophils % (auto) 3.1 %; Hematocrit (blood only) 35.6 % (37-47); Immature Granulocytes # (auto) 0.01 K/uL (0.00-0.02); Immature Granulocytes % (auto) 0.3 %; Mean Corpuscular Hemoglobin 24.4 pg (25-34); Mean Corpuscular Hgb Conc 30.9 g/dL (32-36); Mean Corpuscular Volume 79.1 fL (80-100); Mean Platelet Volume 8.7 fL (7.4-10.4); Monocytes # (auto) 0.25 K/uL (0.11-0.59); Monocytes % (auto) 6.6 %; Neutrophils # (auto) 2.62 K/uL (1.4-6.5); Neutrophils % (auto) 68.7 %; Platelet Count 121 K/uL (130-400); RDW Coefficient of Variation 18.1 % (11.5-14.5); RDW Standard Deviation 52.3 fL (36.4-46.3); White Blood Count 3.81 K/uL (4.8-10.8)
--- NOTE | 2020-01-08 13:17 | Emergency Department Note ---
Impression & Plan Weakness, Abdominal pain, right lateral, Acute UTI, Decreased oral intake, Chills ED Provider Note Provider: Shant Booker MD DATE OF SERVICE:01/08/2020 CHIEF COMPLAINT: Decreased oral intake, chills, abdominal pain HISTORY OF PRESENT ILLNESS: Patient is a 79-year-old female with a past medical history of CKD, neuropathy, resistant UTI, and recent back surgery in October of this month presenting here today from the [facility] with continued issues with pain in her right abdomen that been ongoing since the surgery as well as particular diaphoresis and chills today. She reports that she felt very very sweaty this morning and quite cold. Daughter states that staff reported to her that her t emperature was 95 F. Patient continues have some right-sided abdominal pain for which she was evaluated emergency department yesterday. Denies any trauma. States she just feels weak. Patient states she has had some urinary frequency recently. Patient states has not been able to eat or drink very much and was concerned last night about dehydration and received some IV fluid. Patient states that she did have a negative test result return yesterday for coronavirus. REVIEW OF SYSTEMS: A total of 10 review of systems was obtained and negative except as stated above in the HPI. PAST MEDICAL HISTORY: As noted above MEDICATIONS: Reviewed medication listing from the [facility] SOCIAL HISTORY: Former smoker, lives at personal care [facility], PHYSICAL EXAM: GENERAL: alert and oriented in no acute distress on stretcher appears fatigued Head: normocephalic and atraumatic EYES: No injection, discharge or icterus. PERRL NECK: Trachea midline. Supple. ENT: Mucous membranes pink and moist. LUNGS: Airway patent. No retractions. Breath sounds generally diminished HEART: Regular rate and rhythm. No chest wall tenderness ABDOMEN: Soft without significant abdominal tenderness, slight right sided. Not peritoneal. SKIN: Acyanotic, warm, dry, without rashes EXTREMITIES: Without swelling, tenderness or deformity NEUROLOGICAL: No focal deficits. No aphasia. No facial droop or slurred speech. EK bpm normal sinus rhythm. No PVC. No PAC. No acute ST segment elevation or depression. Normal QTC. CONTINUOUS CARDIAC MONITORING: was ordered and showed a heart rate of 61 bpm in normal sinus rhythm Patient's laboratory studies and imaging reviewed. Differential includes Infection, dehydration, metabolic abnormality, hypo/hyperglycemia, electrolyte disturbance, anemia, hypoxia, cardiac sources, intracerebral event, toxicologic, neurologic, as well as other pathologies. IMPRESSION/MEDICAL DECISION MAKING: Patient evaluated here last night and has a pinpoint growth urine culture at this point. Urine today does not look too bad but given this history of resistant UTI as well as some urinary frequency will treat with a dose of ertapenem awaiting further microbiology. Does appear grossly septic at this point. Afebrile. Reports of significant diaphoresis and chills this morning and possible very mild hypothermia are concerning for infection. Difficult IV access. Labs were obtained however she was given a small fluid bolus. Renal function appears improved today compared to previous from last night. No evidence of acute hepatitis or pancreatitis based on laboratory studies. Troponin is mildly elevated but this is chronic. EKG without acute ischemic changes. Discussed with daughter and patient findings. Will defer additional repeat CT imaging at this point of the abdomen pelvis given the chronicity of her right upper abdominal pain since the surgery more than a month ago. Given a dose of her morning oxycodone a little bit late help with this. Discussed with the hospitalist as well as the patient and daughter further observation here in the hospital given her weakened state increased oral intake as well as possible UTI. DIAGNOSIS: Weakness, acute UTI, abdominal pain DISPOSITION: Hospitalist will evaluate Patient was agreeable with this plan. Past Med/Surg History Medical History (Updated 01/08/20 @ 17:51 by Shant Booker M.D.) Acute hypercapnic respiratory failure 03/2019 [facility] DEB (acute kidney injury) Anxiety and depression Asthma Per pulmonology 10/10/19, likely NOT asthma but chronic aspiration. Flovert and Spiriva discontinued, pt to use albuterol PRN Breast cancer UNSURE WHICH SIDE WAS CANCER. Chronic back pain Chronic neck pain Chronic pulmonary aspiration 2/2 h/o CVA, [facility]. CKD (chronic kidney disease) Dyspnea on exertion GERD (gastroesophageal reflux disease) History of benign brain tumor History of dysphagia ESOPHAGEAL DILATION IN PAST History of esophageal dilatation History of spinal stenosis History of uterine cancer Endometrial biopsy revealed endometrioid adenocarcinoma. Status post total abdominal hysterectomy and bilateral salpingo-oophorectomy. Status post completion of radiation therapy with external beam radiation as well as 2 HDR treatments completed 08/15/2013 Hypertension Left pontine stroke 01/2019, on Plavix, following with [facility] [place] neurology. Lymphedema of right arm CHRONIC, 2/2 MASTECTOMY Meningioma R temporal lobe, neurology monitoring. Microcytic anemia Morbid obesity Neuropathy Numb feet, painful radiculopathy in hands from cervical radiculopathy Obesity hypoventilation syndrome Osteoarthritis PAC (premature atrial contraction) PVC (premature ventricular contraction) Severe obstructive sleep apnea CPAP, pt reports compliance Uterine cancer S/P RICHARD BSO WITH RADIATION Surgical History Difficult airway for intubation History of cardiac catheterization NO STENTS History of cataract surgery BILATERAL History of cholecystectomy History of colonoscopy History of esophagogastroduodenoscopy (EGD) History of knee surgery ARTHROSCOPY LEFT KNEE History of mastectomy BILATERAL History of total abdominal hysterectomy BSO Family History Mother Diabetes Myocardial infarction Hypertension Family history of diabetes mellitus Brother Family history of diabetes mellitus Denies family history of Ovarian cancer Prostate cancer Breast cancer Colorectal cancer Social History Smoking Status: Former smoker Age Started Using Tobacco: 15; Age Quit Using Tobacco: 30; packs per day: 1; Second Hand Exposure: No; Hx Alcohol Use: No Hx Substance Use: No Preferred Language: Swedish Communication Ability: Effective Visual Impairment: Partially Limited Hearing Ability: Hard of Hearing 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 Beliefs That Will Affect Care: None marital status: / Current Living Situation: Personal Care Facility Current Living Situation Comment: [facility] in [place] current occupational status: retired Feels Safe at Home: Yes Childhood Exposure to Second-Hand Smoke: No Dental Care, Regularly: Yes Physical Activity Frequency: Does not Exercise Seatbelt Use: always Sunscreen Use: Yes Assistive Devices: Walker Allergies Allergies Allergy/AdvReac Type Severity Reaction Status Date / Time Bactrim Allergy Severe THROAT Verified 05/14/15 15:22 CLOSED celecoxib [From Celebrex] Allergy Severe CAUSED Verified 11/27/19 07:24 STROKE meperidine Allergy Severe almost Verified 11/27/19 07:24 "closed throat" midodrine Allergy Severe "almost Verified 11/27/19 07:24 closed throat" Penicillins Allergy Severe ANAPHYLAXIS Verified 11/27/19 07:24 Quinolones Allergy Severe TOLERATED Verified 01/07/20 18:01 LEVAQUIN IV - SEP 06 sulfamethoxazole Allergy Severe THROAT Verified 11/27/19 07:24 CLOSED trimethoprim Allergy Severe THROAT Verified 11/27/19 07:24 CLOSED diphenoxylate Allergy Intermediate Unknown Verified 11/27/19 07:24 metronidazole [From Flagyl] Allergy Intermediate Hives Verified 11/27/19 07:24 DENILSON Inhibitors Allergy Unknown unknown to Verified 11/27/19 07:24 pt atropine Allergy Unknown Unknown Verified 11/27/19 07:24 carvedilol Allergy Unknown Unknown Verified 11/27/19 07:24 clonazepam [From Klonopin] Allergy Unknown Unknown Verified 11/27/19 07:24 doxycycline Allergy Unknown Unknown Verified 11/27/19 07:24 furosemide [From Lasix] Allergy Unknown Unknown Verified 11/27/19 07:24 Histamine H2 Inhibitors Allergy Unknown unknown to Verified 11/27/19 07:24 pt Iodinated Contrast Media Allergy Unknown JULY 2017 Verified 11/27/19 07:24 [facility] -- TOLERATED WITH SLOW INFUSION PER PATIENT nitrofurantoin Allergy Unknown Unknown Verified 11/27/19 07:24 phenazopyridine Allergy Unknown Unknown Verified 11/27/19 07:24 ranitidine Allergy Unknown Unknown Verified 11/27/19 07:24 repaglinide Allergy Unknown Unknown Verified 11/27/19 07:24 rosiglitazone Allergy Unknown Unknown Verified 11/27/19 07:24 tolterodine [From Detrol] Allergy Unknown Unknown Verified 11/27/19 07:24 aspartame Allergy . Verified 01/07/20 18:01 [From Nutrasweet Aspartame] cantaloupe Allergy . Verified 01/07/20 18:01 melon Allergy . Verified 01/07/20 18:01 prednisone Allergy . Verified 01/07/20 18:01 watermelon Allergy . Verified 01/07/20 18:01 citalopram [From Celexa] AdvReac Severe . Verified 01/07/20 18:01 glyburide AdvReac Intermediate SEVERE Verified 11/27/19 07:24 ABDOMINAL PAIN metformin AdvReac Intermediate SEVERE Verified 11/27/19 07:24 ABDOMINAL PAIN oxycodone AdvReac Intermediate SEVERE Verified 11/27/19 07:24 WITHDRAWAL SYMPTOMS WHEN TRYING TO STOP TAKING paroxetine AdvReac Intermediate DID NOT Verified 11/27/19 07:24 HELP temazepam AdvReac Intermediate DID NOT Verified 11/27/19 07:24 HELP tramadol AdvReac Intermediate Vomiting Verified 11/27/19 07:24 diazepam AdvReac Mild SEDATION Verified 11/27/19 07:24 LASTING TOO LONG meloxicam [From Mobic] AdvReac Mild SICK TO Verified 11/27/19 07:24 STOMACH albuterol AdvReac Unknown UNK Verified 11/27/19 07:24 carbamazepine AdvReac Unknown Unknown Verified 11/27/19 07:24 ibuprofen AdvReac Unknown Unknown Verified 11/27/19 07:24 lisinopril AdvReac Unknown UNK Verified 11/27/19 07:24 mirtazapine AdvReac Unknown Unknown Verified 11/27/19 07:24 olanzapine AdvReac Unknown Unknown Verified 11/27/19 07:24 rofecoxib AdvReac Unknown Unknown Verified 11/27/19 07:24 valproic acid AdvReac Unknown Unknown Verified 11/27/19 07:24 Home Meds Home Medications Medication Instructions Recorded Confirmed epinephrine 0.3 mg IM DIRECTED PRN 03/21/19 01/08/20 docusate sodium 100 mg capsule 100 mg PO BID 10/22/19 01/08/20 escitalopram oxalate 20 mg tablet 20 mg PO HS 10/28/19 01/08/20 biotin 5,000 mcg PO BID 11/12/19 01/08/20 coenzyme Q10 200 mg PO QAM 11/12/19 01/08/20 loperamide 2 mg capsule 4 mg PO .COMPLEX PRN cap 11/14/19 01/08/20 albuterol sulfate [Ventolin HFA] 1 puff INHALATION Q4H PRN 12/09/19 01/08/20 melatonin 9 mg PO HS PRN 12/09/19 01/08/20 nitroglycerin 0.4 mg SUBLINGUAL DIRECTED PRN 12/09/19 01/08/20 pravastatin 40 mg PO Q48H 12/09/19 01/08/20 sennosides-docusate sodium 1 tab PO QDL PRN 12/09/19 01/08/20 [Senokot-S] gabapentin 600 mg PO BID 01/08/20 01/08/20 Previous Rx's Medication Instructions Recorded clopidogrel 75 mg tablet 75 mg PO QAM #30 tab 03/30/19 cholecalciferol (vitamin D3) 125 5,000 unit PO QAM #30 tab 04/03/19 mcg (5,000 unit) tablet ketoconazole 2 % shampoo 1 appln TOP Q14D #120 ml 05/29/19 pantoprazole 40 mg tablet,delayed 40 mg PO BID #60 tab 09/04/19 release insulin aspart U-100 100 unit/mL 14 unit SUBCUT DAILY 90 Days #12.6 12/30/19 (3 mL) subcutaneous pen ml insulin glargine 100 unit/mL 45 unit SUBCUT DAILY 90 Days #40.5 12/30/19 subcutaneous solution ml oxycodone 5 mg tablet 2.5 mg PO .COMPLEX PRN #21 tab 12/30/19 acetaminophen 500 mg tablet 1,000 mg PO Q6H PRN #30 tab 12/31/19 fexofenadine 60 mg tablet 60 mg PO Q12H PRN #60 tab 12/31/19 metoprolol succinate 50 mg 50 mg PO QPM #90 tab 01/05/20 tablet,extended release 24 hr ondansetron HCl [Zofran] 4 mg PO TID PRN 5 Days #15 tab 01/07/20 Results & Data (ED) Vital Signs Vital Signs - 24 hr 01/08/20 10:09 01/08/20 10:12 01/08/20 10:14 Temperature 36.8 C Temperature Source Oral Pulse Rate 68 67 68 Pulse Rate from SpO2 Sensor 68 68 Respiratory Rate 22 21 23 Respiratory Effort / Characteristics Non-Labored Respiratory Depth Normal Blood Pressure 179/78 H 179/78 H Blood Pressure Mean 115 111 Blood Pressure Position Lying Pulse Oximetry 96 97 95 Oxygen Delivery Method Room Air Sepsis Recent Fever Within 48 Hours No Sepsis New/Unexplained Change in Mental Status No Sepsis Action Taken by Nursing No Action Required 01/08/20 10:20 01/08/20 10:30 01/08/20 10:40 Temperature Temperature Source Pulse Rate 67 68 69 Pulse Rate from SpO2 Sensor 68 68 69 Respiratory Rate 22 21 22 Respiratory Effort / Characteristics Respiratory Depth Blood Pressure Blood Pressure Mean Blood Pressure Position Pulse Oximetry 94 94 94 Oxygen Delivery Method Sepsis Recent Fever Within 48 Hours Sepsis New/Unexplained Change in Mental Status Sepsis Action Taken by Nursing 01/08/20 10:50 01/08/20 11:00 01/08/20 11:10 Temperature Temperature Source Pulse Rate 68 64 62 Pulse Rate from SpO2 Sensor 68 64 62 Respiratory Rate 20 21 23 Respiratory Effort / Characteristics Respiratory Depth Blood Pressure Blood Pressure Mean Blood Pressure Position Pulse Oximetry 97 96 96 Oxygen Delivery Method Sepsis Recent Fever Within 48 Hours Sepsis New/Unexplained Change in Mental Status Sepsis Action Taken by Nursing 01/08/20 11:18 01/08/20 11:20 01/08/20 11:24 Temperature Temperature Source Pulse Rate 66 63 Pulse Rate from SpO2 Sensor 66 63 Respiratory Rate 22 25 H Respiratory Effort / Characteristics Respiratory Depth Blood Pressure 171/70 H Blood Pressure Mean 113 Blood Pressure Position Pulse Oximetry 96 96 Oxygen Delivery Method Room Air Sepsis Recent Fever Within 48 Hours Sepsis New/Unexplained Change in Mental Status Sepsis Action Taken by Nursing 01/08/20 11:30 01/08/20 11:40 01/08/20 11:50 Temperature Temperature Source Pulse Rate 64 67 63 Pulse Rate from SpO2 Sensor 64 67 63 Respiratory Rate 28 H 21 19 Respiratory Effort / Characteristics Respiratory Depth Blood Pressure Blood Pressure Mean Blood Pressure Position Pulse Oximetry 95 95 95 Oxygen Delivery Method Sepsis Recent Fever Within 48 Hours Sepsis New/Unexplained Change in Mental Status Sepsis Action Taken by Nursing 01/08/20 12:00 01/08/20 12:10 01/08/20 12:20 Temperature Temperature Source Pulse Rate 65 69 67 Pulse Rate from SpO2 Sensor 65 69 66 Respiratory Rate 19 24 17 Respiratory Effort / Characteristics Respiratory Depth Blood Pressure Blood Pressure Mean Blood Pressure Position Pulse Oximetry 95 97 98 Oxygen Delivery Method Sepsis Recent Fever Within 48 Hours Sepsis New/Unexplained Change in Mental Status Sepsis Action Taken by Nursing 01/08/20 12:30 01/08/20 12:31 01/08/20 12:40 Temperature Temperature Source Pulse Rate 63 63 67 Pulse Rate from SpO2 Sensor 63 63 67 Respiratory Rate 22 19 22 Respiratory Effort / Characteristics Respiratory Depth Blood Pressure 188/79 H Blood Pressure Mean 91 Blood Pressure Position Pulse Oximetry 95 96 93 Oxygen Delivery Method Sepsis Recent Fever Within 48 Hours Sepsis New/Unexplained Change in Mental Status Sepsis Action Taken by Nursing 01/08/20 12:50 01/08/20 13:00 01/08/20 13:01 Temperature Temperature Source Pulse Rate 63 71 72 Pulse Rate from SpO2 Sensor 63 71 72 Respiratory Rate 20 22 21 Respiratory Effort / Characteristics Respiratory Depth Blood Pressure 173/78 H Blood Pressure Mean 98 Blood Pressure Position Pulse Oximetry 94 85 L 86 L Oxygen Delivery Method Sepsis Recent Fever Within 48 Hours Sepsis New/Unexplained Change in Mental Status Sepsis Action Taken by Nursing 01/08/20 13:10 01/08/20 13:20 01/08/20 13:30 Temperature Temperature Source Pulse Rate 66 65 68 Pulse Rate from SpO2 Sensor 67 64 67 Respiratory Rate 19 20 24 Respiratory Effort / Characteristics Respiratory Depth Blood Pressure Blood Pressure Mean Blood Pressure Position Pulse Oximetry 97 99 99 Oxygen Delivery Method Sepsis Recent Fever Within 48 Hours Sepsis New/Unexplained Change in Mental Status Sepsis Action Taken by Nursing 01/08/20 13:31 01/08/20 13:40 01/08/20 13:50 Temperature Temperature Source Pulse Rate 70 69 69 Pulse Rate from SpO2 Sensor 69 69 70 Respiratory Rate 20 23 29 H Respiratory Effort / Characteristics Respiratory Depth Blood Pressure 190/88 H Blood Pressure Mean 99 Blood Pressure Position Pulse Oximetry 97 99 99 Oxygen Delivery Method Sepsis Recent Fever Within 48 Hours Sepsis New/Unexplained Change in Mental Status Sepsis Action Taken by Nursing 01/08/20 14:00 01/08/20 14:10 01/08/20 14:20 Temperature Temperature Source Pulse Rate 66 64 63 Pulse Rate from SpO2 Sensor 66 64 63 Respiratory Rate 19 17 23 Respiratory Effort / Characteristics Respiratory Depth Blood Pressure 191/82 H Blood Pressure Mean 89 Blood Pressure Position Pulse Oximetry 99 99 98 Oxygen Delivery Method Sepsis Recent Fever Within 48 Hours Sepsis New/Unexplained Change in Mental Status Sepsis Action Taken by Nursing 01/08/20 14:30 01/08/20 14:32 01/08/20 14:40 Temperature Temperature Source Pulse Rate 65 64 66 Pulse Rate from SpO2 Sensor 64 65 66 Respiratory Rate 20 19 19 Respiratory Effort / Characteristics Respiratory Depth Blood Pressure 175/65 H Blood Pressure Mean 93 Blood Pressure Position Pulse Oximetry 98 98 98 Oxygen Delivery Method Sepsis Recent Fever Within 48 Hours Sepsis New/Unexplained Change in Mental Status Sepsis Action Taken by Nursing 01/08/20 14:50 01/08/20 15:00 01/08/20 15:10 Temperature Temperature Source Pulse Rate 67 69 66 Pulse Rate from SpO2 Sensor 67 69 66 Respiratory Rate 21 22 20 Respiratory Effort / Characteristics Respiratory Depth Blood Pressure 189/85 H Blood Pressure Mean 132 Blood Pressure Position Pulse Oximetry 98 99 97 Oxygen Delivery Method Sepsis Recent Fever Within 48 Hours Sepsis New/Unexplained Change in Mental Status Sepsis Action Taken by Nursing 01/08/20 15:20 01/08/20 15:30 01/08/20 15:40 Temperature Temperature Source Pulse Rate 68 66 62 Pulse Rate from SpO2 Sensor 68 66 62 Respiratory Rate 25 H 15 25 H Respiratory Effort / Characteristics Respiratory Depth Blood Pressure Blood Pressure Mean Blood Pressure Position Pulse Oximetry 97 98 97 Oxygen Delivery Method Sepsis Recent Fever Within 48 Hours Sepsis New/Unexplained Change in Mental Status Sepsis Action Taken by Nursing 01/08/20 15:50 01/08/20 16:00 01/08/20 16:10 Temperature Temperature Source Pulse Rate 61 67 76 Pulse Rate from SpO2 Sensor 62 67 Respiratory Rate 17 18 18 Respiratory Effort / Characteristics Respiratory Depth Blood Pressure 173/75 H Blood Pressure Mean 102 Blood Pressure Position Pulse Oximetry 93 98 Oxygen Delivery Method Sepsis Recent Fever Within 48 Hours Sepsis New/Unexplained Change in Mental Status Sepsis Action Taken by Nursing 01/08/20 16:20 01/08/20 16:30 01/08/20 16:40 Temperature Temperature Source Pulse Rate 63 65 59 L Pulse Rate from SpO2 Sensor Respiratory Rate 21 20 23 Respiratory Effort / Characteristics Respiratory Depth Blood Pressure Blood Pressure Mean Blood Pressure Position Pulse Oximetry Oxygen Delivery Method Sepsis Recent Fever Within 48 Hours Sepsis New/Unexplained Change in Mental Status Sepsis Action Taken by Nursing 01/08/20 16:50 01/08/20 17:00 01/08/20 17:10 Temperature Temperature Source Pulse Rate 62 64 69 Pulse Rate from SpO2 Sensor Respiratory Rate 31 H 29 H 20 Respiratory Effort / Characteristics Respiratory Depth Blood Pressure Blood Pressure Mean Blood Pressure Position Pulse Oximetry Oxygen Delivery Method Sepsis Recent Fever Within 48 Hours Sepsis New/Unexplained Change in Mental Status Sepsis Action Taken by Nursing 01/08/20 17:20 01/08/20 17:30 01/08/20 17:32 Temperature Temperature Source Pulse Rate 73 72 71 Pulse Rate from SpO2 Sensor Respiratory Rate 19 17 22 Respiratory Effort / Characteristics Respiratory Depth Blood Pressure 193/76 H Blood Pressure Mean 106 Blood Pressure Position Pulse Oximetry Oxygen Delivery Method Sepsis Recent Fever Within 48 Hours Sepsis New/Unexplained Change in Mental Status Sepsis Action Taken by Nursing Laboratory Data Result diagrams: 01/08/20 12:51 01/08/20 12:51 Lab Results 01/08/20 01/08/20 01/08/20 Range/Units 12:15 12:51 12:51 WBC 3.81 L (4.8-10.8) K/uL RBC 4.50 (4.2-5.4) M/uL Hgb 11.0 L (12.0-16.0) g/dL Hct 35.6 L (37-47) % MCV 79.1 L (80-100) fL MCH 24.4 L (25-34) pg MCHC 30.9 L (32-36) g/dL RDW Std Deviation 52.3 H (36.4-46.3) fL RDW Coeff of Tim 18.1 H (11.5-14.5) % Plt Count 121 L (130-400) K/uL MPV 8.7 (7.4-10.4) fL Immature Gran % (Auto) 0.3 % Neut % (Auto) 68.7 % Lymph % (Auto) 21.0 % [place] % (Auto) 6.6 % Eos % (Auto) 3.1 % Baso % (Auto) 0.3 % Neut # (Auto) 2.62 (1.4-6.5) K/uL Lymph # (Auto) 0.80 L (1.2-3.4) K/uL [place] # (Auto) 0.25 (0.11-0.59) K/uL Eos # (Auto) 0.12 (0-0.5) K/uL Baso # (Auto) 0.01 (0-0.2) K/uL Immature Gran # (Auto) 0.01 (0.00-0.02) K/uL Sodium 141 (136-145) mmol/L Potassium 4.0 (3.5-5.1) mmol/L Chloride 106 (98-107) mmol/L Carbon Dioxide 29 (21-32) mmol/L Anion Gap 6.0 (3-11) BUN 16 (7-18) mg/dl Creatinine 1.07 (0.6-1.2) mg/dl Est Cr Clr Drug Dosing 46.8 ml/min Est GFR ( Amer) 57.2 Est GFR (Non-Af Amer) 49.3 BUN/Creatinine Ratio 14.8 (10-20) Glucose 138 H (70-99) mg/dl Calcium 9.3 (8.5-10.1) mg/dl Total Bilirubin 0.7 (0.2-1) mg/dl AST 24 (15-37) U/L ALT 24 (12-78) U/L Alkaline Phosphatase 78 (45-117) U/L Troponin I 0.059 H* (0-0.045) ng/ml C-Reactive Protein (0-0.29) mg/dl Total Protein 7.3 (6.4-8.2) gm/dl Albumin 3.0 L (3.4-5.0) gm/dl Globulin 4.3 H (2.5-4.0) gm/dl Albumin/Globulin Ratio 0.7 L (0.9-2) Lipase 72 L (73-393) U/L Urine Color Yellow Urine Appearance Clear (Clear) Urine pH 7.0 (4.5-7.5) Ur Specific Homer 1.010 (1.000-1.030) Urine Protein Negative (Negative) Urine Glucose (UA) Negative (Negative) Urine Ketones Negative (Negative) Urine Blood Negative (Negative) Urine Nitrite Negative (Negative) Urine Bilirubin Negative (Negative) Urine Urobilinogen Negative (Negative) Ur Leukocyte Esterase Negative (Negative) COVID-19 Eval Order 01/08/20 01/08/20 Range/Units 16:55 17:02 WBC (4.8-10.8) K/uL RBC (4.2-5.4) M/uL Hgb (12.0-16.0) g/dL Hct (37-47) % MCV (80-100) fL MCH (25-34) pg MCHC (32-36) g/dL RDW Std Deviation (36.4-46.3) fL RDW Coeff of Tim (11.5-14.5) % Plt Count (130-400) K/uL MPV (7.4-10.4) fL Immature Gran % (Auto) % Neut % (Auto) % Lymph % (Auto) % [place] % (Auto) % Eos % (Auto) % Baso % (Auto) % Neut # (Auto) (1.4-6.5) K/uL Lymph # (Auto) (1.2-3.4) K/uL [place] # (Auto) (0.11-0.59) K/uL Eos # (Auto) (0-0.5) K/uL Baso # (Auto) (0-0.2) K/uL Immature Gran # (Auto) (0.00-0.02) K/uL Sodium (136-145) mmol/L Potassium (3.5-5.1) mmol/L Chloride (98-107) mmol/L Carbon Dioxide (21-32) mmol/L Anion Gap (3-11) BUN (7-18) mg/dl Creatinine (0.6-1.2) mg/dl Est Cr Clr Drug Dosing ml/min Est GFR ( Amer) Est GFR (Non-Af Amer) BUN/Creatinine Ratio (10-20) Glucose (70-99) mg/dl Calcium (8.5-10.1) mg/dl Total Bilirubin (0.2-1) mg/dl AST (15-37) U/L ALT (12-78) U/L Alkaline Phosphatase (45-117) U/L Troponin I (0-0.045) ng/ml C-Reactive Protein 1.23 H (0-0.29) mg/dl Total Protein (6.4-8.2) gm/dl Albumin (3.4-5.0) gm/dl Globulin (2.5-4.0) gm/dl Albumin/Globulin Ratio (0.9-2) Lipase (73-393) U/L Urine Color Urine Appearance (Clear) Urine pH (4.5-7.5) Ur Specific Homer (1.000-1.030) Urine Protein (Negative) Urine Glucose (UA) (Negative) Urine Ketones (Negative) Urine Blood (Negative) Urine Nitrite (Negative) Urine Bilirubin (Negative) Urine Urobilinogen (Negative) Ur Leukocyte Esterase (Negative) COVID-19 Eval Order Covid19 Done at [facility] Administered Medications Ertapenem 1,000 mg/ Sodium (Chloride) 60 mls @ 100 mls/hr IV Q24H SHARMILA Stop: 01/13/20 14:14 Last Admin: 01/08/20 17:30 Dose: 100 mls/hr Documented by: [id number] Discontinued Medications Sodium Chloride (Nss) 500 mls @ 999 mls/hr IV .Q31M ONE Stop: 01/08/20 13:13 Last Infusion: 01/08/20 17:26 Dose: 0 mls/hr Documented by: [id number] Admin: 01/08/20 13:47 Dose: 999 mls/hr Documented by: [id number] Ondansetron HCl (Ondansetron 4 Mg Od Tab) 4 mg PO NOW STA Stop: 01/08/20 11:03 Last Admin: 01/08/20 12:19 Dose: 4 mg Documented by: [id number] Oxycodone HCl (Oxycodone Hcl Ir 5 Mg Tab (Immediate Release)) 2.5 mg PO NOW STA Stop: 01/08/20 14:15 Last Admin: 01/08/20 15:49 Dose: 2.5 mg Documented by: [id number] Discharge Plan Visit Data Chief Complaint: Abdominal Pain ED Provider: Shant Booker Discharge Problem: Weakness, Abdominal pain, right lateral, Acute UTI, Decreased oral intake, [employer] Patient Disposition: Being Evaluated by Hospitalist Condition: Fair Forms Stand Alone Forms: Formerly [facility], [facility] Prescriptions Prescriptions: No Action clopidogrel [Plavix] 75 mg tablet 75 mg PO QAM Qty: 30 RF: 1 cholecalciferol (vitamin D3) [Vitamin D3] 125 mcg (5,000 unit) tablet 5,000 unit PO QAM Qty: 30 RF: 5 pantoprazole 40 mg tablet,delayed release (DR/EC) 40 mg PO BID Qty: 60 RF: 5 insulin aspart U-100 [Novolog Flexpen U-100 Insulin] 100 unit/mL (3 mL) insulin pen 14 unit SUBCUT DAILY 90 Days Qty: 12.6 RF: 3 Lantus U-100 Insulin 100 unit/mL solution 45 unit SUBCUT DAILY 90 Days Qty: 40.5 RF: 3 oxycodone 5 mg tablet 2.5 mg PO .COMPLEX PRN (Reason: pain) Qty: 21 RF: 0 acetaminophen 500 mg tablet 1,000 mg PO Q6H PRN (Reason: fever or pain) Qty: 30 RF: 0 fexofenadine 60 mg tablet 60 mg PO Q12H PRN (Reason: allergy symptoms) Qty: 60 RF: 0 metoprolol succinate [Toprol XL] 50 mg tablet extended release 24 hr 50 mg PO QPM Qty: 90 RF: 1 loperamide [Imodium A-D] 2 mg capsule 4 mg PO .COMPLEX PRN (Reason: Diarrhea) RF: 0 escitalopram oxalate 20 mg tablet 20 mg PO HS RF: 0 ketoconazole 2 % shampoo 1 appln TOP Q14D Qty: 120 RF: 0 docusate sodium [Colace] 100 mg capsule 100 mg PO BID RF: 0 epinephrine 0.3 mg/0.3 mL auto-injector 0.3 mg IM DIRECTED PRN (Reason: Anaphylaxis) RF: 0 biotin 5,000 mcg Tablet,Disintegrating 5,000 mcg PO BID RF: 0 coenzyme Q10 200 mg capsule 200 mg PO QAM RF: 0 melatonin 3 mg Tablet 9 mg PO HS PRN (Reason: Insomnia) RF: 0 pravastatin 40 mg tablet 40 mg PO Q48H RF: 0 nitroglycerin 0.4 mg tablet, sublingual 0.4 mg sublingual DIRECTED PRN (Reason: Chest Pain) RF: 0 albuterol sulfate [Ventolin HFA] 90 mcg/actuation HFA aerosol inhaler 1 puff INHALATION Q4H PRN (Reason: Wheezing) RF: 0 sennosides-docusate sodium [Senokot-S] 8.6-50 mg Tablet 1 tab PO QDL PRN (Reason: Constipation) RF: 0 ondansetron HCl [Zofran] 4 mg tablet 4 mg PO TID PRN (Reason: nausea and vomiting) 5 Days Qty: 15 RF: 0 gabapentin 600 mg tablet 600 mg PO BID RF: 0 Referrals Referrals: NATALIYA, [Primary Care Provider] -
[2020-01-08 13:24] LABS: BUN Creatinine Ratio 14.8 (10-20); Calcium 9.3 mg/dl (8.5-10.1); Creatinine Clr Calc Pharmacy 46.8 ml/min; Est GFR (African American) 57.2; Est GFR (Non-African American) 49.3
[2020-01-08 13:31] LABS: Albumin Globulin Ratio 0.7 (0.9-2); Bilirubin,Total 0.7 mg/dl (0.2-1); Globulin 4.3 gm/dl (2.5-4.0); Total Protein 7.3 gm/dl (6.4-8.2); Troponin I 0.059 ng/ml (0-0.045)
[2020-01-08] MEDS ORDERED: oxyCODONE HCL IR 5 MG TAB (IMMEDIATE RELEASE) PO STA (14:14)
[2020-01-08] MEDS ORDERED: ERTAPENEM SODIUM 1,000 MG in SODIUM CHLORIDE 0.9% 50 ML IV SCH (14:15)
--- NOTE | 2020-01-08 16:14 | History & Physical Report ---
Date of Service January 08, 2020 Assessment & Plan (1) Viral syndrome: Constellation of symptoms over the last few days seems suggestive of infectious process. Her leukopenia and thrombocytopenia also suggest a viral process. No tick-borne illness exposures - has been in her PCF most of summer with little outdoors exposure. Occult bacterial process is possible. COVID-19 PCR was negative in ER. Will check rapid flu test. Send blood cx's. Consider [facility] respiratory panel. Place on empiric ertapenem while awaiting blood cultures. Using such due to numerous antibiotic allergies/adverse rxns. U/a completely normal - doubt any UTI. Repeat cbc in am. Follow blood cultures. (2) Abnormal CT scan, lumbar spine: She has had a severe pain over the lower left chest/costal margin dating back to late October after her lumbar back surgery. It is reproducible on exam. CT chest tonight w/o pathology. CT abd/pelvis yesterday with erosive changes at L1-L2 -- radiology questions if discitis could be possible? Could the LUQ/lower left chest wall pain be radicular in origin?? Try voltaren gel qid. Try heat. Low-dose pain meds prn. I am going to consult Dr Rodrigues from orthopedics to review her CT films about L1-L2. Check sed rate. Need for MRI of back? If there is indeed infection in the bone -- could this be the reason for her constitutional symptoms and feeling poorly? (3) LUQ abdominal pain: etiology uncertain. see above. consider t-spine and l-spine MRIs. consider pain management consult if felt to be radicular in origin. was admitted to hospital in December for same complaint - had extensive w/u for such without etiology found. consider GI consultation (4) Exposure to COVID-19 virus: One of the pt's caregivers at the [facility] tested + for COVID-19 on Sunday of this week. Patient does not recall last meeting with this staff member but she reports that she is one of her regular caregivers for daily needs. Although COVID-19 PCR is negative, I spoke with infection control and she should remain a PUI for now (could develop symptoms anytime in the next 10-14 days). (5) Morbid obesity: BMI 42.5 (6) Severe obstructive sleep apnea: BiPAP (7) Leukopenia: review of EMR shows that pt's WBC count runs low of end normal chronically (4-6 range). however, it is now worse - viral suppression? other? see "viral syndrome" above (8) Thrombocytopenia: EMR shows platelet count to be low many times in the past. However, in December her platelets were normal. coupled with leukopenia this would suggest viral suppression, sepsis, primary bone marrow disorder, nutritional deficiency, autoimmune disease, etc. repeat CBC w/ diff in am. follow for now. (9) Obesity hypoventilation syndrome: with CAMRON should be using BiPAP at HS and likely NC O2 during the day follow O2 sats during the daytime (10) Dyslipidemia: pravastatin 40mg every other day (11) GERD (gastroesophageal reflux disease): PPI bid (12) Hypertension: cont home meds (13) History of stroke: 01/2019 cont plavix for secondary CVA prevention cont statin (14) Chronic kidney disease, stage 3a: baseline CrCl 40s/low 50s bmp am (15) DVT prophylaxis: heparin 7500 units TID due to severe morbid obesity daughter extensively updated at bedside History of Present Illness Chief Complaint: weakness, illness Primary Care Provider: GIFFORD 79yo female with history of lumbar spine surgery in late November [address] Rodrigues, recent enterobacter UTI, T2DM, CAMRON, and HTN presents from the [facility] with 4 days of worsening fatigue, weakness, very poor appetite, malaise, transient right-sided headache last pm, right ear pain, nasal congestion, runny nose, and nausea. Had a known COVID-19 exposure sometime in the last 7 days as a staff member at the [facility] who provides regular care for her tested + for COVID on Sunday of this week. The patient herself was tested this past Sunday for COVID but results are unknown. Starting sometime after her lumbar spine surgery she developed a LUQ/left lower chest wall pain that has been persistent. She has had multiple scans, ultrasounds, and x-rays to determine the etiology without success. She has tried various treatments including lidoderm patches also without success. Allergies Allergy/AdvReac Type Severity Reaction Status Date / Time Bactrim Allergy Severe THROAT Verified 05/14/15 15:22 CLOSED celecoxib [From Celebrex] Allergy Severe CAUSED Verified 11/27/19 07:24 STROKE meperidine Allergy Severe almost Verified 11/27/19 07:24 "closed throat" midodrine Allergy Severe "almost Verified 11/27/19 07:24 closed throat" Penicillins Allergy Severe ANAPHYLAXIS Verified 11/27/19 07:24 Quinolones Allergy Severe TOLERATED Verified 01/07/20 18:01 LEVAQUIN IV - SEP 06 sulfamethoxazole Allergy Severe THROAT Verified 11/27/19 07:24 CLOSED trimethoprim Allergy Severe THROAT Verified 11/27/19 07:24 CLOSED diphenoxylate Allergy Intermediate Unknown Verified 11/27/19 07:24 metronidazole [From Flagyl] Allergy Intermediate Hives Verified 11/27/19 07:24 DENILSON Inhibitors Allergy Unknown unknown to Verified 11/27/19 07:24 pt atropine Allergy Unknown Unknown Verified 11/27/19 07:24 carvedilol Allergy Unknown Unknown Verified 11/27/19 07:24 clonazepam [From Klonopin] Allergy Unknown Unknown Verified 11/27/19 07:24 doxycycline Allergy Unknown Unknown Verified 11/27/19 07:24 furosemide [From Lasix] Allergy Unknown Unknown Verified 11/27/19 07:24 Histamine H2 Inhibitors Allergy Unknown unknown to Verified 11/27/19 07:24 pt Iodinated Contrast Media Allergy Unknown JULY 2017 Verified 11/27/19 07:24 [facility] -- TOLERATED WITH SLOW INFUSION PER PATIENT nitrofurantoin Allergy Unknown Unknown Verified 11/27/19 07:24 phenazopyridine Allergy Unknown Unknown Verified 11/27/19 07:24 ranitidine Allergy Unknown Unknown Verified 11/27/19 07:24 repaglinide Allergy Unknown Unknown Verified 11/27/19 07:24 rosiglitazone Allergy Unknown Unknown Verified 11/27/19 07:24 tolterodine [From Detrol] Allergy Unknown Unknown Verified 11/27/19 07:24 aspartame Allergy . Verified 01/07/20 18:01 [From Nutrasweet Aspartame] cantaloupe Allergy . Verified 01/07/20 18:01 melon Allergy . Verified 01/07/20 18:01 prednisone Allergy . Verified 01/07/20 18:01 watermelon Allergy . Verified 01/07/20 18:01 citalopram [From Celexa] AdvReac Severe . Verified 01/07/20 18:01 glyburide AdvReac Intermediate SEVERE Verified 11/27/19 07:24 ABDOMINAL PAIN metformin AdvReac Intermediate SEVERE Verified 11/27/19 07:24 ABDOMINAL PAIN oxycodone AdvReac Intermediate SEVERE Verified 11/27/19 07:24 WITHDRAWAL SYMPTOMS WHEN TRYING TO STOP TAKING paroxetine AdvReac Intermediate DID NOT Verified 11/27/19 07:24 HELP temazepam AdvReac Intermediate DID NOT Verified 11/27/19 07:24 HELP tramadol AdvReac Intermediate Vomiting Verified 11/27/19 07:24 diazepam AdvReac Mild SEDATION Verified 11/27/19 07:24 LASTING TOO LONG meloxicam [From Mobic] AdvReac Mild SICK TO Verified 11/27/19 07:24 STOMACH albuterol AdvReac Unknown UNK Verified 11/27/19 07:24 carbamazepine AdvReac Unknown Unknown Verified 11/27/19 07:24 ibuprofen AdvReac Unknown Unknown Verified 11/27/19 07:24 lisinopril AdvReac Unknown UNK Verified 11/27/19 07:24 mirtazapine AdvReac Unknown Unknown Verified 11/27/19 07:24 olanzapine AdvReac Unknown Unknown Verified 11/27/19 07:24 rofecoxib AdvReac Unknown Unknown Verified 11/27/19 07:24 valproic acid AdvReac Unknown Unknown Verified 11/27/19 07:24 Home Medications Home Medications Medication Instructions Recorded Confirmed Type epinephrine 0.3 mg IM DIRECTED PRN 03/21/19 01/08/20 History clopidogrel 75 mg tablet 75 mg PO QAM #30 tab 03/30/19 01/08/20 Rx cholecalciferol (vitamin D3) 125 5,000 unit PO QAM #30 tab 04/03/19 01/08/20 Rx mcg (5,000 unit) tablet ketoconazole 2 % shampoo 1 appln TOP Q14D #120 ml 05/29/19 01/08/20 Rx pantoprazole 40 mg tablet,delayed 40 mg PO BID #60 tab 09/04/19 01/08/20 Rx release docusate sodium 100 mg capsule 100 mg PO BID 10/22/19 01/08/20 History escitalopram oxalate 20 mg tablet 20 mg PO HS 10/28/19 01/08/20 History biotin 5,000 mcg PO BID 11/12/19 01/08/20 History coenzyme Q10 200 mg PO QAM 11/12/19 01/08/20 History loperamide 2 mg capsule 4 mg PO .COMPLEX PRN cap 11/14/19 01/08/20 History albuterol sulfate [Ventolin HFA] 1 puff INHALATION Q4H PRN 12/09/19 01/08/20 History melatonin 9 mg PO HS PRN 12/09/19 01/08/20 History nitroglycerin 0.4 mg SUBLINGUAL DIRECTED PRN 12/09/19 01/08/20 History pravastatin 40 mg PO Q48H 12/09/19 01/08/20 History sennosides-docusate sodium 1 tab PO QDL PRN 12/09/19 01/08/20 History [Senokot-S] insulin aspart U-100 100 unit/mL 14 unit SUBCUT DAILY 90 Days #12.6 12/30/19 01/08/20 Rx (3 mL) subcutaneous pen ml insulin glargine 100 unit/mL 45 unit SUBCUT DAILY 90 Days #40.5 12/30/19 01/08/20 Rx subcutaneous solution ml oxycodone 5 mg tablet 2.5 mg PO .COMPLEX PRN #21 tab 12/30/19 01/08/20 Rx acetaminophen 500 mg tablet 1,000 mg PO Q6H PRN #30 tab 12/31/19 01/08/20 Rx fexofenadine 60 mg tablet 60 mg PO Q12H PRN #60 tab 12/31/19 01/08/20 Rx metoprolol succinate 50 mg 50 mg PO QPM #90 tab 01/05/20 01/08/20 Rx tablet,extended release 24 hr ondansetron HCl [Zofran] 4 mg PO TID PRN 5 Days #15 tab 01/07/20 01/08/20 Rx gabapentin 600 mg PO BID 01/08/20 01/08/20 History Past Med/Surg History Medical History (Updated 01/09/20 @ 07:59 by Silverio Billings) Acute hypercapnic respiratory failure 03/2019 [facility] DEB (acute kidney injury) Anxiety and depression Asthma Per pulmonology 10/10/19, likely NOT asthma but chronic aspiration. Flovert and Spiriva discontinued, pt to use albuterol PRN Breast cancer UNSURE WHICH SIDE WAS CANCER. Chronic back pain Chronic neck pain Chronic pulmonary aspiration 2/2 h/o CVA, CAMRON. CKD (chronic kidney disease) Dyspnea on exertion GERD (gastroesophageal reflux disease) History of benign brain tumor History of dysphagia ESOPHAGEAL DILATION IN PAST History of esophageal dilatation History of spinal stenosis History of uterine cancer Endometrial biopsy revealed endometrioid adenocarcinoma. Status post total abdominal hysterectomy and bilateral salpingo-oophorectomy. Status post completion of radiation therapy with external beam radiation as well as 2 HDR treatments completed 08/15/2013 Hypertension Left pontine stroke 01/2019, on Plavix, following with [facility] neurology. Lymphedema of right arm CHRONIC, 2/2 MASTECTOMY Meningioma R temporal lobe, neurology monitoring. Microcytic anemia Morbid obesity Neuropathy Numb feet, painful radiculopathy in hands from cervical radiculopathy Obesity hypoventilation syndrome Osteoarthritis PAC (premature atrial contraction) PVC (premature ventricular contraction) Severe obstructive sleep apnea CPAP, pt reports compliance Uterine cancer S/P RICHARD BSO WITH RADIATION Surgical History Difficult airway for intubation History of cardiac catheterization NO STENTS History of cataract surgery BILATERAL History of cholecystectomy History of colonoscopy History of esophagogastroduodenoscopy (EGD) History of knee surgery ARTHROSCOPY LEFT KNEE History of mastectomy BILATERAL History of total abdominal hysterectomy BSO Family History Mother Diabetes Myocardial infarction Hypertension Family history of diabetes mellitus Brother Family history of diabetes mellitus Denies family history of Ovarian cancer Prostate cancer Breast cancer Colorectal cancer Social History Smoking Status: Never smoker Age Started Using Tobacco: 15; Age Quit Using Tobacco: 30; packs per day: 1; Second Hand Exposure: No; Hx Alcohol Use: No Hx Substance Use: No Preferred Language: Swiss Communication Ability: Effective Visual Impairment: Partially Limited Hearing Ability: Hard of Hearing Gatekeeper Required: No Beliefs That Will Affect Care: None marital status: / Current Living Situation: Personal Care Facility Current Living Situation Comment: [facility] in [place] current occupational status: retired Feels Safe at Home: Yes Safety Concerns: Feels Safe At This Time Childhood Exposure to Second-Hand Smoke: No Dental Care, Regularly: Yes Physical Activity Frequency: Does not Exercise Seatbelt Use: always Sunscreen Use: Yes Assistive Devices: Walker Review of Systems Constitutional: + chills, + fatigue, + weakness and + anorexia; no fever Eyes: no discharge Ear, Nose, Mouth, Throat: + ear pain, + nasal congestion and + nasal discharge; no sore throat and no dysphagia Respiratory: + dyspnea on exertion; no cough Cardiovascular: no chest pain and no edema Gastrointestinal: + abdominal pain; no vomiting Genitourinary: no dysuria Musculoskeletal: + back pain Integumentary: no rash Neurologic: + generalized weakness Psychiatric: + depression Endocrine: diabetic with neuropathy of hands/feet Hematologic / Lymphatic: no lymphadenopathy Physical Exam Constitutional: + ill appearing (Looks very tired ) and + morbidly obese; no acute distress and no altered mental status Eyes: + anicteric sclerae and PERRL strabismus right eye with lateral deviation ENMT: external ear and nose normal, oropharynx normal Neck: trachea midline, no thyromegaly Respiratory: no respiratory distress Auscultation: + diminished lung sounds (Bases); no crackles and no wheezes Cardiovascular: Rate/Rhythm: regular rate and regular rhythm Heart Sounds: normal S1 and normal S2; no murmur Vessels: posterior tibial pulses present and dorsalis pedis pulses present; no JVD Extremities: no edema Gastrointestinal (Abdomen): Inspection/Auscultation: normal bowel sounds; abdomen not distended Percussion/Palpation: + abdomen tender (Exquisite tenderness over left costal margin/ribs 11/12 on left/LUQ) and abdomen soft; no hepatosplenomegaly Musculoskeletal: midline scar t-spine/l-spine well-healed, no erythema; no drainage; mild tenderness to palpation upper lumbar segments in midline Skin: no rashes, warm and dry Neurologic: deep tendon reflexes 2+ bilaterally and moves all extremities Psychiatric: Orientation: alert and oriented x 3 Lymphatic: no cervical lymphadenopathy Results & Data Results & Data ([facility]) Vital Signs (Past 12 Hours) Vital Signs Temp Pulse Resp BP Pulse Ox 01/08/20 15:50 61 17 93 01/08/20 15:40 62 25 H 97 01/08/20 15:30 66 15 98 01/08/20 15:20 68 25 H 97 01/08/20 15:10 66 20 97 01/08/20 15:00 69 22 189/85 H 99 01/08/20 14:50 67 21 98 01/08/20 14:40 66 19 98 01/08/20 14:32 64 19 175/65 H 98 01/08/20 14:30 65 20 98 01/08/20 14:20 63 23 98 01/08/20 14:10 64 17 99 01/08/20 14:00 66 19 191/82 H 99 01/08/20 13:50 69 29 H 99 01/08/20 13:40 69 23 99 01/08/20 13:31 70 20 190/88 H 97 01/08/20 13:30 68 24 99 01/08/20 13:20 65 20 99 01/08/20 13:10 66 19 97 01/08/20 13:01 72 21 173/78 H 86 L 01/08/20 13:00 71 22 85 L 01/08/20 12:50 63 20 94 01/08/20 12:40 67 22 93 01/08/20 12:31 63 19 188/79 H 96 01/08/20 12:30 63 22 95 01/08/20 12:20 67 17 98 01/08/20 12:10 69 24 97 01/08/20 12:00 65 19 95 01/08/20 11:50 63 19 95 01/08/20 11:40 67 21 95 01/08/20 11:30 64 28 H 95 01/08/20 11:20 63 25 H 96 01/08/20 11:18 66 22 171/70 H 96 01/08/20 11:10 62 23 96 01/08/20 11:00 64 21 96 01/08/20 10:50 68 20 97 01/08/20 10:40 69 22 94 01/08/20 10:30 68 21 94 01/08/20 10:20 67 22 94 01/08/20 10:14 68 23 95 01/08/20 10:12 36.8 C 67 21 179/78 H 97 01/08/20 10:09 68 22 179/78 H 96 Laboratory Results Laboratory Results - last 24 hr 01/08/20 01/08/20 01/08/20 12:15 12:51 12:51 WBC 3.81 L RBC 4.50 Hgb 11.0 L Hct 35.6 L MCV 79.1 L MCH 24.4 L MCHC 30.9 L RDW Std Deviation 52.3 H RDW Coeff of Tim 18.1 H Plt Count 121 L MPV 8.7 Immature Gran % (Auto) 0.3 Neut % (Auto) 68.7 Lymph % (Auto) 21.0 [place] % (Auto) 6.6 Eos % (Auto) 3.1 Baso % (Auto) 0.3 Neut # (Auto) 2.62 Lymph # (Auto) 0.80 L [place] # (Auto) 0.25 Eos # (Auto) 0.12 Baso # (Auto) 0.01 Immature Gran # (Auto) 0.01 Sodium 141 Potassium 4.0 Chloride 106 Carbon Dioxide 29 Anion Gap 6.0 BUN 16 Creatinine 1.07 Est Cr Clr Drug Dosing 46.8 Est GFR ( Amer) 57.2 Est GFR (Non-Af Amer) 49.3 BUN/Creatinine Ratio 14.8 Glucose 138 H POC Glucose Calcium 9.3 Total Bilirubin 0.7 AST 24 ALT 24 Alkaline Phosphatase 78 Troponin I 0.059 H* C-Reactive Protein Total Protein 7.3 Albumin 3.0 L Globulin 4.3 H Albumin/Globulin Ratio 0.7 L Lipase 72 L Procalcitonin Urine Color Yellow Urine Appearance Clear Urine pH 7.0 Ur Specific Warren 1.010 Urine Protein Negative Urine Glucose (UA) Negative Urine Ketones Negative Urine Blood Negative Urine Nitrite Negative Urine Bilirubin Negative Urine Urobilinogen Negative Ur Leukocyte Esterase Negative COVID-19 Eval Order COVID-19 PCR 01/08/20 01/08/20 01/08/20 16:55 16:55 17:02 WBC RBC Hgb Hct MCV MCH MCHC RDW Std Deviation RDW Coeff of Tim Plt Count MPV Immature Gran % (Auto) Neut % (Auto) Lymph % (Auto) [place] % (Auto) Eos % (Auto) Baso % (Auto) Neut # (Auto) Lymph # (Auto) [place] # (Auto) Eos # (Auto) Baso # (Auto) Immature Gran # (Auto) Sodium Potassium Chloride Carbon Dioxide Anion Gap BUN Creatinine Est Cr Clr Drug Dosing Est GFR ( Amer) Est GFR (Non-Af Amer) BUN/Creatinine Ratio Glucose POC Glucose Calcium Total Bilirubin AST ALT Alkaline Phosphatase Troponin I C-Reactive Protein 1.23 H Total Protein Albumin Globulin Albumin/Globulin Ratio Lipase Procalcitonin Urine Color Urine Appearance Urine pH Ur Specific Warren Urine Protein Urine Glucose (UA) Urine Ketones Urine Blood Urine Nitrite Urine Bilirubin Urine Urobilinogen Ur Leukocyte Esterase COVID-19 Eval Order Covid19 Done at [facility] COVID-19 PCR NEGATIVE 01/08/20 01/08/20 17:02 21:36 WBC RBC Hgb Hct MCV MCH MCHC RDW Std Deviation RDW Coeff of Tim Plt Count MPV Immature Gran % (Auto) Neut % (Auto) Lymph % (Auto) [place] % (Auto) Eos % (Auto) Baso % (Auto) Neut # (Auto) Lymph # (Auto) [place] # (Auto) Eos # (Auto) Baso # (Auto) Immature Gran # (Auto) Sodium Potassium Chloride Carbon Dioxide Anion Gap BUN Creatinine Est Cr Clr Drug Dosing Est GFR ( Amer) Est GFR (Non-Af Amer) BUN/Creatinine Ratio Glucose POC Glucose 118 H Calcium Total Bilirubin AST ALT Alkaline Phosphatase Troponin I C-Reactive Protein Total Protein Albumin Globulin Albumin/Globulin Ratio Lipase Procalcitonin < 0.05 Urine Color Urine Appearance Urine pH Ur Specific Warren Urine Protein Urine Glucose (UA) Urine Ketones Urine Blood Urine Nitrite Urine Bilirubin Urine Urobilinogen Ur Leukocyte Esterase COVID-19 Eval Order COVID-[address] chest - no rib fractures, no infiltrates CT abd/pelvis (01/07/20) - MPRESSION: 1. No significant change from the preceding study 2. No evidence of bowel obstruction. No evidence of free air 3. Normal appendix. No evidence of acute diverticulitis 4. Stable trace gas within the bladder 5. Stable postsurgical changes within the thoracolumbar spine.. Persistent L1-2 endplate erosive changes. A discitis osteomyelitis cannot be excluded. EKG - NSR, no ST changes Code Status & VTE Plan Code Status DNR/DNI VTE Prophylaxis Plan VTE Prophylaxis will be ordered: Yes PG Care Time/CCT Total # of Minutes Spent Total Time Spent with Patient: Total time spent is greater than 50% in coordination of care (as documented) at patient's floor/unit and/or counseling patient: Coding Level of Care Code 83444 Initial Inpt Care Lvl 3 Diagnoses Viral syndrome B34.[address] scan, lumbar spine R93.7 LUQ abdominal pain R10.12 Exposure to COVID-19 virus Z20.828 Morbid obesity E66.01 Severe obstructive sleep apnea G47.33 Leukopenia D72.819 Thrombocytopenia D69.6 Obesity hypoventilation syndrome E66.2 Dyslipidemia E78.5 GERD (gastroesophageal reflux disease) K21.9 Hypertension I10 Hypertension type: unspecified History of stroke Z86.73 Chronic kidney disease, stage 3a N18.31 DVT prophylaxis Z29.9 (1) Hypertension Hypertension type: unspecified Qualified Code(s): I10 - Essential (primary) hypertension
[2020-01-08] MEDS ORDERED: ALBUTEROL HFA 8 GM INHALER INH PRN (16:26)
--- NOTE | 2020-01-08 17:54 | Electrocardiogram Report ---
Test Reason : Blood Pressure : / mmHG Vent. Rate : 063 BPM Atrial Rate : 063 BPM P-R Int : 150 ms QRS Dur : 080 ms QT Int : 442 ms P-R-T Axes : 071 060 060 degrees QTc Int : 452 ms Normal sinus rhythm Normal ECG When compared with ECG of 07-JAN-2020 15:24, (unconfirmed) No significant change was found Confirmed by Pankaj Allison ([id number]) on 01/08/2020 5:53:48 PM Referred By: MEME Confirmed By:Hector Allison
--- NOTE | 2020-01-08 18:02 | CT Scan Report ---
CT OF THE CHEST WITHOUT IV CONTRAST CLINICAL HISTORY: hypoxia, chills, left costal pain COMPARISON STUDY: Chest CT November 25, 2019. Chest radiograph December 16, 2019. CT DOSE: 588.78 mGycm TECHNIQUE: Axial images of the chest were obtained without IV contrast. Images were reviewed in the axial, sagittal, and coronal planes. IV contrast was not administered for this examination. Automat ed exposure control was utilized for the study. A dose lowering technique was utilized adhering to t he principles of ALARA. FINDINGS: No enlarged axillary, mediastinal or hilar lymph nodes are present. The size of the heart is normal. There is no pericardial effusion. No pneumothorax or pleural effusion is noted. Postoperat ghazala findings within the spine are partially imaged on this exam. Central airways are patent. Minimal tree-in-bud nodules within the right lower lobe on axial image 166 of 281 were present on prior exam. This finding is chronic and of doubtful significance. A linear 1.1 cm right middle lobe opacity on i mage 177 is unchanged. This is likely benign. There is no consolidation to suggest pneumonia. Mild barrios bpleural opacities favor atelectasis. Upper abdomen is unremarkable. No acute fractures are identifie d within visualized portions of the ribs. IMPRESSION: 1. No acute process within the chest. No consolidation to suggest pneumonia. 2. Minimal tree-in-bud nodules within the right lower lobe which are unchanged. These are chronic. St able 1.1 cm linear opacity within the right middle lobe which is likely benign. ACT 112: Negative or not required by law. Electronically signed by: Kirby Anna M.D. 01/08/2020 6:00 PM
[2020-01-08] MEDS ORDERED: HYDROCODONE/ACETAMINOPHEN 7.5/325MG TAB PO ONE (19:39)
[2020-01-08] MEDS ORDERED: HYDROCODONE/ACETAMINOPHEN 7.5/325MG TAB PO PRN (20:54)
[2020-01-08] MEDS ORDERED: FEXOFENADINE 60 MG TAB PO PRN (20:54)
[2020-01-08] MEDS ORDERED: NITROGLYCERIN SL 0.4 MG/TAB TAB SL PRN (20:54)
[2020-01-08] MEDS ORDERED: ONDANSETRON INJ 2 MG/ML 2 ML VIAL IV PRN (20:54)
[2020-01-08] MEDS ORDERED: DEXTROSE 50% 50 ML SYRINGE IV PRN (21:15)
[2020-01-08] MEDS ORDERED: CARBOHYDRATES FOR HYPOGLYCEMIA PO PRN (21:15)
[2020-01-08] MEDS ORDERED: GLUCOSE 10 TABS/TUBE PO PRN (21:15)
[2020-01-08] MEDS ORDERED: GLUCAGON FOR INJ 1 MG VIAL IM PRN (21:15)
[2020-01-08] MEDS ORDERED: GLUCOSE 40% GEL 15 GM TUBE PO PRN (21:15)
[2020-01-08] MEDS: PRAVASTATIN SOD 40 MG TAB PO SCH (22:34)
[2020-01-08] MEDS: PANTOprazole 40 MG TAB PO SCH (22:35)
[2020-01-08] MEDS: ESCITALOPRAM OXALATE 20 MG TAB PO SCH (22:35)
[2020-01-08] MEDS: DICLOFENAC SOD 1% GEL 100 GM TUBE EXT SCH ×2 (22:36→22:42)
[2020-01-08] MEDS: GABAPENTIN 600 MG TAB PO SCH (22:37)
[2020-01-08] MEDS: METOPROLOL SUCC 50MG EXT REL TAB PO SCH (22:38)
[2020-01-08] MEDS: SODIUM CHLORIDE 0.9% 1000ML 1,000 ML IV SCH (22:43)
[2020-01-08] MEDS: INSULIN ASPART 100 UNITS/ML 3 ML PEN SC SCH (22:50)
[2020-01-08] MEDS: HEPARIN SOD 5,000 UNIT/0.5 ML VIAL SQ SCH (22:50)
[2020-01-09] MEDS: MELATONIN 3 MG TAB PO PRN (00:25)
[2020-01-09] MEDS: SODIUM CHLORIDE 0.9% 1000ML 1,000 ML IV SCH (06:00)
[2020-01-09] MEDS: HEPARIN SOD 5,000 UNIT/0.5 ML VIAL SQ SCH ×3 (06:10→21:21)
[2020-01-09] MEDS: CLOPIDOGREL BISULFATE 75 MG TAB PO SCH (07:58)
[2020-01-09] MEDS: GABAPENTIN 600 MG TAB PO SCH ×2 (07:58→21:26)
[2020-01-09] MEDS: CHOLECALCIFEROL 1,000 UNITS 25 MCG TAB PO SCH ×2 (07:58→08:20)
[2020-01-09] MEDS: PANTOprazole 40 MG TAB PO SCH ×2 (07:58→21:26)
[2020-01-09] MEDS: DICLOFENAC SOD 1% GEL 100 GM TUBE EXT SCH ×4 (07:59→21:25)
[2020-01-09 08:21] LABS: Basophils # (auto) 0.01 K/uL (0-0.2); Basophils % (auto) 0.3 %; Hematocrit (blood only) 37.2 % (37-47); Hemoglobin 11.2 g/dL (12.0-16.0); Immature Granulocytes # (auto) 0.01 K/uL (0.00-0.02); Immature Granulocytes % (auto) 0.3 %; Lymphocytes # (auto) 0.81 K/uL (1.2-3.4); Lymphocytes % (auto) 24.3 %; Mean Corpuscular Hgb Conc 30.1 g/dL (32-36); Mean Corpuscular Volume 79.8 fL (80-100); Mean Platelet Volume 9.2 fL (7.4-10.4); Monocytes # (auto) 0.29 K/uL (0.11-0.59); Monocytes % (auto) 8.7 %; Neutrophils # (auto) 2.11 K/uL (1.4-6.5); Neutrophils % (auto) 63.4 %; Platelet Count 135 K/uL (130-400); RDW Standard Deviation 52.4 fL (36.4-46.3); Red Blood Count 4.66 M/uL (4.2-5.4); White Blood Count 3.33 K/uL (4.8-10.8)
[2020-01-09 08:51] LABS: BUN Creatinine Ratio 12.6 (10-20); Calcium 9.3 mg/dl (8.5-10.1); Creatinine Clr Calc Pharmacy 45.5 ml/min; Est GFR (African American) 55.3; Est GFR (Non-African American) 47.7; Potassium 4.2 mmol/L (3.5-5.1)
[2020-01-09 09:07] LABS: Influenza A virus by PCR Negative (Negative); Influenza B virus by PCR Negative (Negative)
[2020-01-09] MEDS: INSULIN GLARGINE SOLOSTAR 100 UNITS/ML 3 ML PEN SQ SCH (10:22)
[2020-01-09] MEDS: INSULIN ASPART 100 UNITS/ML 3 ML PEN SC SCH ×4 (10:23→21:22)
[2020-01-09 15:37] LABS: Adenovirus PCR Not Detected (NotDetected); Bordetella parapertussis PCR Not Detected (NotDetected); Bordetella pertussis PCR Not Detected (NotDetected); Chlamydia pneumoniae PCR Not Detected (NotDetected); Coronavirus 229E PCR Not Detected (NotDetected); Coronavirus CoV-2 (COVID19)PCR Not Detected (NotDetected); Coronavirus HKU1 PCR Not Detected (NotDetected); Coronavirus NL63 PCR Not Detected (NotDetected); Coronavirus OC43PCR Not Detected (NotDetected); Human Metapneumovirus PCR Not Detected (NotDetected); Influenza A PCR Not Detected (NotDetected); Influenza B PCR Not Detected (NotDetected); Mycoplasma pneumoniae PCR Not Detected (NotDetected); Parainfluenza Virus 1 PCR Not Detected (NotDetected); Parainfluenza Virus 2 PCR Not Detected (NotDetected); Parainfluenza Virus 3 PCR Not Detected (NotDetected); Parainfluenza Virus 4 PCR Not Detected (NotDetected); Respiratory Syncytial VirusPCR Not Detected (NotDetected); Rhinovirus/Enterovirus PCR Not Detected (NotDetected)
[2020-01-09] MEDS ORDERED: ERTAPENEM SODIUM 1,000 MG in SODIUM CHLORIDE 0.9% 50 ML IV SCH (17:00)
[2020-01-09] MEDS ORDERED: oxyCODONE HCL IR 5 MG TAB (IMMEDIATE RELEASE) PO STA (17:29)
[2020-01-09] MEDS ORDERED: oxyCODONE HCL 10 MG TABCR (OxyCONTIN) PO SCH (21:00)
--- NOTE | 2020-01-09 21:00 | Magnetic Resonance Report ---
MR lumbar spine wo con CLINICAL HISTORY: 79 years-old Female with back pain. Acute low back pain in a patient with history of prior lumbar spine surgery. COMPARISON: MRI lumbar spine 05/30/2019 TECHNIQUE: Multiplanar, multi sequence MRI of the lumbar spine was performed without intravenous cont rast. 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 Motion degraded exam. No aortic aneurysm. Study is mildly motion degraded. Interval postoperative changes of laminectomy T12-L 2 with posterior interbody aniya and screw fusion at T12-L4. Artifact from the hardware limits the stud y. Fluid collection within the deep subcutaneous tissues at the operative bed at T12-L2 measures 2.2 x 0.7 x 7.6 cm. Additionally, there is a fluid collection within the deep operative bed extending int o the posterior epidural space measuring 2.4 x 1.6 x 7.3 cm. Alignment appears satisfactory. No acute fracture identified. T12-L1: Mild spondylitic spurring with moderate facet arthrosis. No central canal or foraminal narro wing. L1-L2: Interval discectomy and laminectomy. Central canal is patent. Resolution of the previously de scribed severe central canal and lateral recess narrowing. The neuroforamen are not well visualized. There is apparent persistent severe bilateral foraminal narrowing. L2-L3: Severe disc space narrowing with spondylitic spurring, circumferential annular disc bulge/dis c osteophyte complex. Facet arthrosis. Interval L2 laminectomy. Decreased central canal stenosis. The re is now mild to moderate central canal narrowing, AP dimension of the thecal sac measuring 8 mm, pr eviously severe. Mild to moderate bilateral foraminal narrowing is unchanged. L3-L4: Severe disc space narrowing with spondylitic spurring, circumferential annular disc bulge wit h posterior disc osteophyte complex, ligament of flavum thickening and advanced facet arthrosis. Lakia re central canal stenosis with unchanged mild bilateral foraminal narrowing. L4-L5: Severe disc space narrowing with circumferential annular disc bulge and spondylitic spurring/ disc osteophyte complex, ligamentum flavum thickening and advanced facet arthrosis. Unchanged mild to moderate left and mild right foraminal narrowing. No central canal stenosis. L5-S1: Severe disc space narrowing with spondylitic spurring, circumferential annular disc bulge, li gamentum flavum thickening and advanced facet arthrosis. Mild left with mild to moderate right forami nal narrowing. The central canal is patent. Findings are unchanged. IMPRESSION: 1. Interval postoperative changes of the T12-L2 laminectomy with posterior interbody aniya and screw fu bijal at T12-L4. Discectomy changes at L1-L2. 2. Posterior postoperative fluid collections as above suggestive of probable seromas. 3. Decreased central canal stenosis at multiple levels as detailed above status post decompression. 4. Multilevel foraminal narrowing redemonstrated. ACT 112: Negative or not required by law. The above report was generated using voice recognition software. It may contain grammatical, syntax o r spelling errors. Electronically signed by: Forrest Pitts M.D. 01/09/2020 8:58 PM
[2020-01-09] MEDS: oxyCODONE HCL IR 5 MG TAB (IMMEDIATE RELEASE) PO SCH (21:24)
[2020-01-09] MEDS: ESCITALOPRAM OXALATE 20 MG TAB PO SCH (21:25)
[2020-01-09] MEDS: METOPROLOL SUCC 50MG EXT REL TAB PO SCH (21:25)
--- NOTE | 2020-01-09 23:07 | Hospitalist Progress Note ---
Date of Service January 09, 2020 Assessment & Plan (1) Viral syndrome: Constellation of symptoms over the last few days seems suggestive of infectious process. Her leukopenia and thrombocytopenia also suggest a viral process. No tick-borne illness exposures - has been in her PCF most of summer with little outdoors exposure. Occult bacterial process is possible. COVID-19 PCR was negative in ER. On day 2: biofire is negative, rapid flu negative. awaiting cultures, however procal is negative. will hold further antibiotics for now. U/a completely normal - doubt any UTI. If patient becomes febrile, will resume antibiotics. (2) Abnormal CT scan, lumbar spine: She has had a severe pain over the lower left chest/costal margin dating back to late October after her lumbar back surgery. It is reproducible on exam. CT chest tonight w/o pathology. CT abd/pelvis yesterday with erosive changes at L1-L2 -- radiology questions if discitis could be possible? Could the LUQ/lower left chest wall pain be radicular in origin?? Try voltaren gel qid. Try heat. Low-dose pain meds prn. I am going to consult Dr Rodrigues from orthopedics to review her CT films about L1-L2. Check sed rate. Obtaining MRI of lumbar spine If there is indeed infection in the bone -- could this be the reason for her constitutional symptoms and feeling poorly? (3) LUQ abdominal pain: etiology uncertain. see above. consider t-spine and l-spine MRIs. consider pain management consult if felt to be radicular in origin. was admitted to hospital in December for same complaint - had extensive w/u for such without etiology found. (4) Exposure to COVID-19 virus: One of the pt's caregivers at the [facility] tested + for COVID-19 on Sunday of this week. Patient does not recall last meeting with this staff member but she reports that she is one of her regular caregivers for daily needs. Although COVID-19 PCR is negative, I spoke with infection control and she should remain a PUI for now (could develop symptoms anytime in the next 10-14 days). (5) Morbid obesity: BMI 42.5 (6) Severe obstructive sleep apnea: BiPAP (7) Leukopenia: review of EMR shows that pt's WBC count runs low of end normal chronically (4-6 range). however, it is now worse - viral suppression? other? see "viral syndrome" above (8) Thrombocytopenia: EMR shows platelet count to be low many times in the past. However, in December her platelets were normal. coupled with leukopenia this would suggest viral suppression, sepsis, primary bone marrow disorder, nutritional deficiency, autoimmune disease, etc. (9) Obesity hypoventilation syndrome: with CAMRON should be using BiPAP at HS and likely NC O2 during the day follow O2 sats during the daytime (10) Dyslipidemia: pravastatin 40mg every other day (11) GERD (gastroesophageal reflux disease): PPI bid (12) Hypertension: cont home meds (13) History of stroke: 01/2019 cont plavix for secondary CVA prevention cont statin (14) Chronic kidney disease, stage 3a: baseline CrCl 40s/low 50s bmp am (15) DVT prophylaxis: heparin 7500 units TID due to severe morbid obesity Admission and Anticipated Discharge Date Admission Date: January 08, 2020 Subjective Patient reports feeling better today. Her main complaint today is her pain in her bilateral lower chest which she attributes to occurring after the surgery. Review of Systems Review of Systems: All systems reviewed & are unremarkable except as noted in HPI & below Physical Exam Physical Exam: Constitutional: looks well and + morbidly obese; no acute distress and no altered mental status Eyes: + anicteric sclerae and PERRL strabismus right eye with lateral deviation ENMT: external ear and nose normal, oropharynx normal Neck: trachea midline, no thyromegaly Respiratory: no respiratory distress Auscultation: + diminished lung sounds (Bases); no crackles and no wheezes Cardiovascular: Rate/Rhythm: regular rate and regular rhythm Heart Sounds: normal S1 and normal S2; no murmur Vessels: posterior tibial pulses present and dorsalis pedis pulses present; no JVD Extremities: no edema Gastrointestinal (Abdomen): Inspection/Auscultation: normal bowel sounds; abdomen not distended Percussion/Palpation: abdomen soft; no hepatosplenomegaly Musculoskeletal: midline scar t-spine/l-spine well-healed, no erythema; no drainage; mild tenderness to palpation upper lumbar segments in midline Skin: no rashes, warm and dry Neurologic: deep tendon reflexes 2+ bilaterally and moves all extremities Psychiatric: Orientation: alert and oriented x 3 Lymphatic: no cervical lymphadenopathy Results & Data Results & Data ([place]) Vital Signs (Past 12 Hours) Vital Signs Temp Pulse Pulse Resp BP Pulse Ox 01/09/20 19:52 36.7 C 20 L 20 107/45 L 96 01/09/20 15:44 37.2 C 72 18 132/63 94 01/09/20 15:00 75 01/09/20 13:12 36.8 C 65 18 116/62 92 PG Care Time/CCT Total # of Minutes Spent Total Time Spent with Patient: Total time spent is greater than 50% in coordination of care (as documented) at patient's floor/unit and/or counseling patient: Coding Level of Care Code 02817 Subseq Hosp Care Lvl 3 Diagnoses Viral syndrome B34.[address] scan, lumbar spine R93.7 LUQ abdominal pain R10.12 Exposure to COVID-19 virus Z20.828 Morbid obesity E66.01 Severe obstructive sleep apnea G47.33 Leukopenia D72.819 Thrombocytopenia D69.6 Obesity hypoventilation syndrome E66.2 Dyslipidemia E78.5 GERD (gastroesophageal reflux disease) K21.9 Hypertension I10 Hypertension type: unspecified History of stroke Z86.73 Chronic kidney disease, stage 3a N18.31 DVT prophylaxis Z29.9 Time Spent (min) 35 (1) Hypertension Hypertension type: unspecified Qualified Code(s): I10 - Essential (primary) hypertension
[2020-01-10] MEDS: MELATONIN 3 MG TAB PO PRN (01:34)
[2020-01-10] MEDS: ACETAMINOPHEN 500 MG TAB PO PRN (01:34)
[2020-01-10] MEDS: HEPARIN SOD 5,000 UNIT/0.5 ML VIAL SQ SCH ×3 (06:20→21:24)
[2020-01-10] MEDS: GABAPENTIN 600 MG TAB PO SCH ×2 (07:58→20:09)
[2020-01-10] MEDS: DICLOFENAC SOD 1% GEL 100 GM TUBE EXT SCH ×4 (07:59→21:24)
[2020-01-10] MEDS: CHOLECALCIFEROL 1,000 UNITS 25 MCG TAB PO SCH (07:59)
[2020-01-10] MEDS: INSULIN GLARGINE SOLOSTAR 100 UNITS/ML 3 ML PEN SQ SCH (07:59)
[2020-01-10] MEDS: oxyCODONE HCL IR 5 MG TAB (IMMEDIATE RELEASE) PO SCH ×2 (07:59→21:23)
[2020-01-10] MEDS: CLOPIDOGREL BISULFATE 75 MG TAB PO SCH (07:59)
[2020-01-10] MEDS: PANTOprazole 40 MG TAB PO SCH ×2 (07:59→20:08)
[2020-01-10] MEDS: INSULIN ASPART 100 UNITS/ML 3 ML PEN SC SCH ×4 (08:04→21:22)
--- NOTE | 2020-01-10 10:38 | Orthopedic Consultation ---
Date of Consultation January 10, 2020 Assessment & Plan (1) Abdominal pain, right lateral: Patient did undergo an MRI yesterday that I was able to review personally. She has some evidence of postop seroma but no evidence of infection. I specifically was noting any neural foraminal encroachment at the lower thoracic regions that could account for some radicular rib pain. The foramen appear to be patent. Hardware is in appropriate position. I am unable to explain her pain patterns at this time. Perhaps we will consider interventional pain management for diagnostic therapeutic nerve blocks to the lower thoracic nerve roots. History of Present Illness Reason for Consultation: Back and bilateral rib pain Attending Physician: Gilberto Bronson History of Present Illness This is a 79-year-old female well-known to me status post thoracolumbar decompression fusion several months ago that presents with viral illness. She also continues to complain of right sided flank and rib pain as well as a chronic ache to the left lower rib cage. She states her back pain is well controlled. She denies any radicular complaints. She states her legs have overall improved though she has some evidence of new onset pain involving the right foot. States that she is comfortable sitting that the pain does not awaken her from sleep. Is most troublesome when she is up and ambulating she gets shocklike symptoms prickly along the right side of her rib cage. Allergies Allergy/AdvReac Type Severity Reaction Status Date / Time Bactrim Allergy Severe THROAT Verified 05/14/15 15:22 CLOSED celecoxib [From Celebrex] Allergy Severe CAUSED Verified 11/27/19 07:24 STROKE meperidine Allergy Severe almost Verified 11/27/19 07:24 "closed throat" midodrine Allergy Severe "almost Verified 11/27/19 07:24 closed throat" Penicillins Allergy Severe ANAPHYLAXIS Verified 11/27/19 07:24 Quinolones Allergy Severe TOLERATED Verified 01/07/20 18:01 LEVAQUIN IV - SEP 06 sulfamethoxazole Allergy Severe THROAT Verified 11/27/19 07:24 CLOSED trimethoprim Allergy Severe THROAT Verified 11/27/19 07:24 CLOSED diphenoxylate Allergy Intermediate Unknown Verified 11/27/19 07:24 metronidazole [From Flagyl] Allergy Intermediate Hives Verified 11/27/19 07:24 DENILSON Inhibitors Allergy Unknown unknown to Verified 11/27/19 07:24 pt atropine Allergy Unknown Unknown Verified 11/27/19 07:24 carvedilol Allergy Unknown Unknown Verified 11/27/19 07:24 clonazepam [From Klonopin] Allergy Unknown Unknown Verified 11/27/19 07:24 doxycycline Allergy Unknown Unknown Verified 11/27/19 07:24 furosemide [From Lasix] Allergy Unknown Unknown Verified 11/27/19 07:24 Histamine H2 Inhibitors Allergy Unknown unknown to Verified 11/27/19 07:24 pt Iodinated Contrast Media Allergy Unknown JULY 2017 Verified 11/27/19 07:24 [facility] -- TOLERATED WITH SLOW INFUSION PER PATIENT nitrofurantoin Allergy Unknown Unknown Verified 11/27/19 07:24 phenazopyridine Allergy Unknown Unknown Verified 11/27/19 07:24 ranitidine Allergy Unknown Unknown Verified 11/27/19 07:24 repaglinide Allergy Unknown Unknown Verified 11/27/19 07:24 rosiglitazone Allergy Unknown Unknown Verified 11/27/19 07:24 tolterodine [From Detrol] Allergy Unknown Unknown Verified 11/27/19 07:24 cantaloupe Allergy . Verified 01/07/20 18:01 melon Allergy . Verified 01/07/20 18:01 prednisone Allergy . Verified 01/07/20 18:01 watermelon Allergy . Verified 01/07/20 18:01 citalopram [From Celexa] AdvReac Severe . Verified 01/07/20 18:01 glyburide AdvReac Intermediate SEVERE Verified 11/27/19 07:24 ABDOMINAL PAIN metformin AdvReac Intermediate SEVERE Verified 11/27/19 07:24 ABDOMINAL PAIN oxycodone AdvReac Intermediate SEVERE Verified 11/27/19 07:24 WITHDRAWAL SYMPTOMS WHEN TRYING TO STOP TAKING paroxetine AdvReac Intermediate DID NOT Verified 11/27/19 07:24 HELP temazepam AdvReac Intermediate DID NOT Verified 11/27/19 07:24 HELP tramadol AdvReac Intermediate Vomiting Verified 11/27/19 07:24 diazepam AdvReac Mild SEDATION Verified 11/27/19 07:24 LASTING TOO LONG meloxicam [From Mobic] AdvReac Mild SICK TO Verified 11/27/19 07:24 STOMACH albuterol AdvReac Unknown UNK Verified 11/27/19 07:24 carbamazepine AdvReac Unknown Unknown Verified 11/27/19 07:24 ibuprofen AdvReac Unknown Unknown Verified 11/27/19 07:24 lisinopril AdvReac Unknown UNK Verified 11/27/19 07:24 mirtazapine AdvReac Unknown Unknown Verified 11/27/19 07:24 olanzapine AdvReac Unknown Unknown Verified 11/27/19 07:24 rofecoxib AdvReac Unknown Unknown Verified 11/27/19 07:24 valproic acid AdvReac Unknown Unknown Verified 11/27/19 07:24 Home Medications Home Medications Medication Instructions Recorded Confirmed Type epinephrine 0.3 mg IM DIRECTED PRN 03/21/19 01/08/20 History clopidogrel 75 mg tablet 75 mg PO QAM #30 tab 03/30/19 01/08/20 Rx cholecalciferol (vitamin D3) 125 5,000 unit PO QAM #30 tab 04/03/19 01/08/20 Rx mcg (5,000 unit) tablet ketoconazole 2 % shampoo 1 appln TOP Q14D #120 ml 05/29/19 01/08/20 Rx pantoprazole 40 mg tablet,delayed 40 mg PO BID #60 tab 09/04/19 01/08/20 Rx release docusate sodium 100 mg capsule 100 mg PO BID 10/22/19 01/08/20 History escitalopram oxalate 20 mg tablet 20 mg PO HS 10/28/19 01/08/20 History biotin 5,000 mcg PO BID 11/12/19 01/08/20 History coenzyme Q10 200 mg PO QAM 11/12/19 01/08/20 History loperamide 2 mg capsule 4 mg PO .COMPLEX PRN cap 11/14/19 01/08/20 History albuterol sulfate [Ventolin HFA] 1 puff INHALATION Q4H PRN 12/09/19 01/08/20 History melatonin 9 mg PO HS PRN 12/09/19 01/08/20 History nitroglycerin 0.4 mg SUBLINGUAL DIRECTED PRN 12/09/19 01/08/20 History pravastatin 40 mg PO Q48H 12/09/19 01/08/20 History sennosides-docusate sodium 1 tab PO QDL PRN 12/09/19 01/08/20 History [Senokot-S] insulin aspart U-100 100 unit/mL 14 unit SUBCUT DAILY 90 Days #12.6 12/30/19 01/08/20 Rx (3 mL) subcutaneous pen ml insulin glargine 100 unit/mL 45 unit SUBCUT DAILY 90 Days #40.5 12/30/19 01/08/20 Rx subcutaneous solution ml oxycodone 5 mg tablet 2.5 mg PO .COMPLEX PRN #21 tab 12/30/19 01/08/20 Rx acetaminophen 500 mg tablet 1,000 mg PO Q6H PRN #30 tab 12/31/19 01/08/20 Rx fexofenadine 60 mg tablet 60 mg PO Q12H PRN #60 tab 12/31/19 01/08/20 Rx metoprolol succinate 50 mg 50 mg PO QPM #90 tab 01/05/20 01/08/20 Rx tablet,extended release 24 hr ondansetron HCl [Zofran] 4 mg PO TID PRN 5 Days #15 tab 01/07/20 01/08/20 Rx gabapentin 600 mg PO BID 01/08/20 01/08/20 History Patient History Medical History (Updated 01/09/20 @ 07:59 by Silverio Billings) Acute hypercapnic respiratory failure 03/2019 [facility] DEB (acute kidney injury) Anxiety and depression Asthma Per pulmonology 10/10/19, likely NOT asthma but chronic aspiration. Flovert and Spiriva discontinued, pt to use albuterol PRN Breast cancer UNSURE WHICH SIDE WAS CANCER. Chronic back pain Chronic neck pain Chronic pulmonary aspiration 2/2 h/o CVA, CAMRON. CKD (chronic kidney disease) Dyspnea on exertion GERD (gastroesophageal reflux disease) History of benign brain tumor History of dysphagia ESOPHAGEAL DILATION IN PAST History of esophageal dilatation History of spinal stenosis History of uterine cancer Endometrial biopsy revealed endometrioid adenocarcinoma. Status post total abdominal hysterectomy and bilateral salpingo-oophorectomy. Status post completion of radiation therapy with external beam radiation as well as 2 HDR treatments completed 08/15/2013 Hypertension Left pontine stroke 01/2019, on Plavix, [place] with [facility] [place]. Lymphedema of right arm CHRONIC, 2/2 MASTECTOMY Meningioma R temporal lobe, neurology monitoring. Microcytic anemia Morbid obesity Neuropathy Numb feet, painful radiculopathy in hands from cervical radiculopathy Obesity hypoventilation syndrome Osteoarthritis PAC (premature atrial contraction) PVC (premature ventricular contraction) Severe obstructive sleep apnea CPAP, pt reports compliance Uterine cancer S/P RICHARD BSO WITH RADIATION Surgical History Difficult airway for intubation History of cardiac catheterization NO STENTS History of cataract surgery BILATERAL History of cholecystectomy History of colonoscopy History of esophagogastroduodenoscopy (EGD) History of knee surgery ARTHROSCOPY LEFT KNEE History of mastectomy BILATERAL History of total abdominal hysterectomy BSO Family History Mother Diabetes Myocardial infarction Hypertension Family history of diabetes mellitus Brother Family history of diabetes mellitus Denies family history of Ovarian cancer Prostate cancer Breast cancer Colorectal cancer Social History Smoking Status: Never smoker Age Started Using Tobacco: 15; Age Quit Using Tobacco: 30; packs per day: 1; Second Hand Exposure: No; Hx Alcohol Use: No Hx Substance Use: No Preferred Language: Albanian Communication Ability: Effective Visual Impairment: Partially Limited Hearing Ability: Hard of Hearing Crusher Machine Operator Required: No Beliefs That Will Affect Care: None marital status: / Current Living Situation: Personal Care Facility Current Living Situation Comment: [facility] in [place] current occupational status: retired Feels Safe at Home: Yes Safety Concerns: Feels Safe At This Time Childhood Exposure to Second-Hand Smoke: No Dental Care, Regularly: Yes Physical Activity Frequency: Does not Exercise Seatbelt Use: always Sunscreen Use: Yes Assistive Devices: None Physical Exam Physical Exam: On exam she is in a chair this at this morning. She is relatively comfortable. She has reasonable strength detailed testing bilateral extremities. Incision is well-healed. She does have some tenderness palpation of the right flank along the 10th rib region. There is no abnormal skin markings. Results & Data ([facility]) Vital Signs (Past 12 Hours) Vital Signs Temp Pulse Pulse Resp BP Pulse Ox 01/10/20 08:51 69 01/10/20 08:17 36.4 C L 64 20 178/76 H 94 01/10/20 04:31 36.9 C 69 16 138/77 92 01/10/20 02:40 77 01/09/20 23:50 36.9 C 77 18 138/75 89 L
--- NOTE | 2020-01-10 13:17 | XRay Report ---
XR lumbar spine 2-3V CLINICAL HISTORY: post op COMPARISON STUDY: Thoracolumbar spine radiographs December 11, 2019. MRI of the lumbar spine January 09, 2020. FINDINGS: Note is made of a T12-L4 posterior decompression with bilateral pedicle screw fusion. There are interconnecting rods. Hardware is intact. No fracture is noted. There are no unexpected radiopaq ue foreign bodies. Alignment is anatomic. IMPRESSION: Status post T12-L4 posterior decompression and bilateral pedicle screw fusion. No fractu re. Hardware intact. ACT 112: Negative or not required by law. Electronically signed by: Kirby Anna M.D. 01/10/2020 1:15 PM
[2020-01-10 13:30] LABS: Basophils # (auto) 0.01 K/uL (0-0.2); Basophils % (auto) 0.3 %; Eosinophils % (auto) 2.6 %; Hematocrit (blood only) 35.2 % (37-47); Hemoglobin 10.8 g/dL (12.0-16.0); Immature Granulocytes # (auto) 0.02 K/uL (0.00-0.02); Immature Granulocytes % (auto) 0.5 %; Lymphocytes # (auto) 0.99 K/uL (1.2-3.4); Lymphocytes % (auto) 25.6 %; Mean Corpuscular Hemoglobin 24.2 pg (25-34); Mean Corpuscular Hgb Conc 30.7 g/dL (32-36); Mean Corpuscular Volume 78.7 fL (80-100); Monocytes % (auto) 7.8 %; Neutrophils # (auto) 2.44 K/uL (1.4-6.5); Neutrophils % (auto) 63.2 %; Platelet Count 126 K/uL (130-400); RDW Coefficient of Variation 17.7 % (11.5-14.5); RDW Standard Deviation 51.2 fL (36.4-46.3); Red Blood Count 4.47 M/uL (4.2-5.4); White Blood Count 3.86 K/uL (4.8-10.8)
[2020-01-10 13:32] LABS: BUN Creatinine Ratio 13.4 (10-20); Creatinine Clr Calc Pharmacy 39.4 ml/min; Est GFR (African American) 48.3; Est GFR (Non-African American) 41.7; Potassium 4.3 mmol/L (3.5-5.1)
[2020-01-10] MEDS: LIDOCAINE 5% 1 PATCH TD SCH (13:54)
[2020-01-10] MEDS: PRAVASTATIN SOD 40 MG TAB PO SCH (20:08)
[2020-01-10] MEDS: ESCITALOPRAM OXALATE 20 MG TAB PO SCH (20:08)
[2020-01-10] MEDS: METOPROLOL SUCC 50MG EXT REL TAB PO SCH (20:09)
--- NOTE | 2020-01-10 22:32 | Hospitalist Progress Note ---
Date of Service January 10, 2020 Assessment & Plan (1) Viral syndrome: Constellation of symptoms over the last few days seems suggestive of infectious process. Her leukopenia and thrombocytopenia also suggest a viral process. No tick-borne illness exposures - has been in her PCF most of summer with little outdoors exposure. Occult bacterial process is possible. COVID-19 PCR was negative in ER. On day 2: biofire is negative, rapid flu negative. awaiting cultures, however procal is negative. will hold further antibiotics for now. U/a completely normal - doubt any UTI. If patient becomes febrile, will resume antibiotics. Patient continues to be doing well. (2) Abnormal CT scan, lumbar spine: She has had a severe pain over the lower left chest/costal margin dating back to late October after her lumbar back surgery. It is reproducible on exam. CT chest tonight w/o pathology. CT abd/pelvis yesterday with erosive changes at L1-L2 -- radiology questions if discitis could be possible? Could the LUQ/lower left chest wall pain be radicular in origin?? Try voltaren gel qid. Try heat. Low-dose pain meds prn. I am going to consult Dr Rodrigues from orthopedics to review her CT films about L1-L2. Check sed rate. MRI of lumbar spine is negative for an explanation for her pain. Will consult pain management for possible nerve injection. (3) LUQ abdominal pain: etiology uncertain. see above. consider t-spine and l-spine MRIs. consider pain management consult if felt to be radicular in origin. was admitted to hospital in December for same complaint - had extensive w/u for such without etiology found. (4) Exposure to COVID-19 virus: One of the pt's caregivers at the [facility] tested + for COVID-19 on Sunday of this week. Patient does not recall last meeting with this staff member but she reports that she is one of her regular caregivers for daily needs. Although COVID-19 PCR is negative, I spoke with infection control and she should remain a PUI for now (could develop symptoms anytime in the next 10-14 days). (5) Morbid obesity: BMI 42.5 (6) Severe obstructive sleep apnea: BiPAP (7) Leukopenia: review of EMR shows that pt's WBC count runs low of end normal chronically (4-6 range). however, it is now worse - viral suppression? other? see "viral syndrome" above (8) Thrombocytopenia: EMR shows platelet count to be low many times in the past. However, in December her platelets were normal. coupled with leukopenia this would suggest viral suppression, sepsis, primary bone marrow disorder, nutritional deficiency, autoimmune disease, etc. (9) Obesity hypoventilation syndrome: with CAMRON should be using BiPAP at HS and likely NC O2 during the day follow O2 sats during the daytime (10) Dyslipidemia: pravastatin 40mg every other day (11) GERD (gastroesophageal reflux disease): PPI bid (12) Hypertension: cont home meds (13) History of stroke: 01/2019 cont plavix for secondary CVA prevention cont statin (14) Chronic kidney disease, stage 3a: baseline CrCl 40s/low 50s (15) DVT prophylaxis: heparin 7500 units TID due to severe morbid obesity Admission and Anticipated Discharge Date Admission Date: January 08, 2020 Subjective Patient reports feeling well, except for bilateral rib pain. Review of Systems Review of Systems: All systems reviewed & are unremarkable except as noted in HPI & below Physical Exam Physical Exam: Constitutional: looks well and + morbidly obese; no acute distress and no altered mental status Eyes: + anicteric sclerae and PERRL strabismus right eye with lateral deviation ENMT: external ear and nose normal, oropharynx normal Neck: trachea midline, no thyromegaly Respiratory: no respiratory distress Auscultation: + diminished lung sounds (Bases); no crackles and no wheezes Cardiovascular: Rate/Rhythm: regular rate and regular rhythm Heart Sounds: normal S1 and normal S2; no murmur Vessels: posterior tibial pulses present and dorsalis pedis pulses present; no JVD Extremities: no edema Gastrointestinal (Abdomen): Inspection/Auscultation: normal bowel sounds; abdomen not distended Percussion/Palpation: abdomen soft; no hepatosplenomegaly Musculoskeletal: midline scar t-spine/l-spine well-healed, no erythema; no drainage; mild tenderness to palpation upper lumbar segments in midline Skin: no rashes, warm and dry Neurologic: deep tendon reflexes 2+ bilaterally and moves all extremities Psychiatric: Orientation: alert and oriented x 3 Lymphatic: no cervical lymphadenopathy Results & Data Results & Data ([facility]) Vital Signs (Past 12 Hours) Vital Signs Temp Pulse Pulse Resp BP Pulse Ox 10/10/20 19:17 37.1 C 70 19 137/79 91 01/10/20 14:57 36.6 C 69 20 131/83 90 01/10/20 14:20 70 01/10/20 11:53 36.3 C L 58 L 18 128/69 93 PG Care Time/CCT Total # of Minutes Spent Total Time Spent with Patient: Total time spent is greater than 50% in coordination of care (as documented) at patient's floor/unit and/or counseling patient: Coding Level of Care Code 19840 Subseq Hosp Care Lvl 2 Diagnoses Viral syndrome B34.[address] scan, lumbar spine R93.7 LUQ abdominal pain R10.12 Exposure to COVID-19 virus Z20.828 Morbid obesity E66.01 Severe obstructive sleep apnea G47.33 Leukopenia D72.819 Thrombocytopenia D69.6 Obesity hypoventilation syndrome E66.2 Dyslipidemia E78.5 GERD (gastroesophageal reflux disease) K21.9 Hypertension I10 Hypertension type: unspecified History of stroke Z86.73 Chronic kidney disease, stage 3a N18.31 DVT prophylaxis Z29.9 Time Spent (min) 25 (1) Hypertension Hypertension type: unspecified Qualified Code(s): I10 - Essential (primary) hypertension
[2020-01-11] MEDS: HEPARIN SOD 5,000 UNIT/0.5 ML VIAL SQ SCH ×3 (03:17→21:49)
[2020-01-11] MEDS: MELATONIN 3 MG TAB PO PRN (03:17)
[2020-01-11 07:58] LABS: Hematocrit (blood only) 35.4 % (37-47); Hemoglobin 10.7 g/dL (12.0-16.0); Mean Corpuscular Hemoglobin 24.1 pg (25-34); Mean Corpuscular Hgb Conc 30.2 g/dL (32-36); Mean Corpuscular Volume 79.7 fL (80-100); Mean Platelet Volume 8.8 fL (7.4-10.4); Platelet Count 101 K/uL (130-400); RDW Coefficient of Variation 17.4 % (11.5-14.5); RDW Standard Deviation 50.3 fL (36.4-46.3); Red Blood Count 4.44 M/uL (4.2-5.4); White Blood Count 3.85 K/uL (4.8-10.8)
[2020-01-11] MEDS: DICLOFENAC SOD 1% GEL 100 GM TUBE EXT SCH ×4 (07:58→20:49)
[2020-01-11] MEDS: INSULIN GLARGINE SOLOSTAR 100 UNITS/ML 3 ML PEN SQ SCH (07:59)
[2020-01-11] MEDS: CHOLECALCIFEROL 1,000 UNITS 25 MCG TAB PO SCH (07:59)
[2020-01-11] MEDS: PANTOprazole 40 MG TAB PO SCH ×2 (07:59→20:49)
[2020-01-11] MEDS: oxyCODONE HCL IR 5 MG TAB (IMMEDIATE RELEASE) PO SCH ×2 (07:59→20:48)
[2020-01-11] MEDS: LIDOCAINE 5% 1 PATCH TD SCH (07:59)
[2020-01-11] MEDS: CLOPIDOGREL BISULFATE 75 MG TAB PO SCH (07:59)
[2020-01-11] MEDS: GABAPENTIN 600 MG TAB PO SCH ×2 (07:59→20:48)
[2020-01-11] MEDS: INSULIN ASPART 100 UNITS/ML 3 ML PEN SC SCH ×4 (08:23→20:48)
[2020-01-11] MEDS ORDERED: GADOBUTROL 65ML VIAL IV ONE (12:25)
--- NOTE | 2020-01-11 14:40 | Magnetic Resonance Report ---
MRI OF THE THORACIC SPINE COMBO CLINICAL HISTORY: Bilateral rib pain. COMPARISON STUDY: Radiographs of the thoracolumbar spine dated 12/11/2019. Chest CT dated 01/08/2020. TECHNIQUE: MRI of the thoracic spine is performed utilizing various T1 and T2-weighted sequences in t he axial and sagittal planes. Contrast-enhanced sequences are acquired following the IV administratio n of 10 cc of Gadavist. The examination is modestly degraded by motion artifact. There is significant susceptibility artifact from thoracolumbar spinal fusion hardware. This significantly degrades asses sment of the lower thoracic region. FINDINGS: MRI of the lumbar spine dated 01/09/2020. Vertebral body height and alignment are maintained throughout the thoracic spine. There is postoperative change from laminectomy and posterior fusion s een extending from T12 into the lumbar spine. Interpedicular screws are present at all levels. Suscep tibility artifact from orthopedic hardware significantly degrades assessment at these levels. The tho racic spinous processes and the transverse processes appear maintained. No destructive bony lesion is identified. There is significant chronic degenerative endplate change noted at T1-T2 and T2-T3. Ther e is no associated marrow edema. Small anterior osteophytes are seen throughout. Degenerative disc de siccation and mild loss of height is seen throughout the thoracic region. There is no evidence of dis c herniation or central canal stenosis in the thoracic region. A posterior disc osteophyte complex is seen at C7-T1 and there is likely bilateral neural foraminal stenosis at this level. Posterior disc bulge eccentric to the right is seen at T1-T2. There may be bilateral neural foraminal narrowing at t his level. No neural foraminal narrowing is seen at the remaining thoracic spinal levels. There is mi ld fatty atrophy of the paraspinous musculature. The thoracic spinal cord is normal in morphology and signal intensity. There is no abnormal postcontrast enhancement identified. The conus medullaris ter minates at the level of L1 as seen on the axial sequences. A peripherally enhancing postoperative flu id collection is again seen posterior to the laminectomy levels. This extends from T12 to at least L2 and measures approximately 6.5 x 1.2 x 1.4 cm. Additionally, there is subcutaneous fluid deep to the incision site. Trace pleural effusions are noted. The lung parenchyma is otherwise grossly unremarka ble but not well evaluated by MRI. IMPRESSION: 1. There is no disc herniation or central canal stenosis involving the thoracic region. 2. Disc bulges are seen at C7-T1 and T1-T2 as above. There is likely be bilateral neural foraminal na rrowing at these levels. 3. No neural foraminal narrowing is suggested at the remaining thoracic levels. 4. The thoracic spinal cord is normal in morphology and signal intensity. 5. Postoperative change from thoracolumbar spinal fusion as above. Postoperative fluid collections ar e unchanged from yesterday's lumbar spine MRI and likely represent seromas. 6. Trace pleural effusions. Dictated: 01/11/2020 1:58 PM Transcribed: 01/11/2020 2:17 PM Nasreen [id number] JUAN [email or web address] Electronically signed by: Joey Patterson M.D. 01/11/2020 2:39 PM
[2020-01-11] MEDS: ESCITALOPRAM OXALATE 20 MG TAB PO SCH (20:48)
[2020-01-11] MEDS: METOPROLOL SUCC 50MG EXT REL TAB PO SCH (20:49)
--- NOTE | 2020-01-11 21:45 | Hospitalist Progress Note ---
Date of Service January 11, 2020 Assessment & Plan (1) Viral syndrome: On admission she was complaining of a constellation of symptoms over days seems suggestive of infectious process. Her leukopenia and thrombocytopenia also suggest a viral process. No tick-borne illness exposures - has been in her PCF most of summer with little outdoors exposure. Occult bacterial process is possible. However this has improved. She did not have contact with covid prior to coming to the hospital. COVID-19 PCR was negative in ER. biofire is negative, rapid flu negative. awaiting cultures, however procal is negative. will hold further antibiotics for now. U/a completely normal - doubt any UTI. If patient becomes febrile, will resume antibiotics. Patient continues to be doing well. (2) Abnormal CT scan, lumbar spine: She has had a severe pain over the lower left chest/costal margin dating back to late October after her lumbar back surgery. It is reproducible on exam. CT chest tonight w/o pathology. CT abd/pelvis yesterday with erosive changes at L1-L2 -- radiology questions if discitis could be possible? Could the LUQ/lower left chest wall pain be radicular in origin?? Try voltaren gel qid. Try heat. Low-dose pain meds prn. I am going to consult Dr Rodrigues from orthopedics to review her CT films about L1-L2. Check sed rate. MRI of lumbar spine is negative for an explanation for her pain. Will consult pain management for possible nerve injection. (3) LUQ abdominal pain: etiology uncertain. see above. consider t-spine and l-spine MRIs. APPRECIATE INPUT FROM ORTHO. consider pain management consult if felt to be radicular in origin. was admitted to hospital in December for same complaint - had extensive w/u for such without etiology found. (4) Exposure to COVID-19 virus: One of the pt's caregivers at the [place] tested + for COVID-19 on Sunday of this week. After contact tracing, this worker had no contact with the patient. 2 COVID test negative. Patient will no longer be a PUI. (5) Morbid obesity: BMI 42.5 (6) Severe obstructive sleep apnea: BiPAP (7) Leukopenia: review of EMR shows that pt's WBC count runs low of end normal chronically (4-6 range). however, it is now worse - viral suppression? other? see "viral syndrome" above (8) Thrombocytopenia: EMR shows platelet count to be low many times in the past. However, in December her platelets were normal. coupled with leukopenia this would suggest viral suppression, sepsis, primary bone marrow disorder, nutritional deficiency, autoimmune disease, etc. (9) Obesity hypoventilation syndrome: with CAMRON should be using BiPAP at HS and likely NC O2 during the day follow O2 sats during the daytime (10) Dyslipidemia: pravastatin 40mg every other day (11) GERD (gastroesophageal reflux disease): PPI bid (12) Hypertension: cont home meds (13) History of stroke: 01/2019 cont plavix for secondary CVA prevention cont statin (14) Chronic kidney disease, stage 3a: baseline CrCl 40s/low 50s (15) DVT prophylaxis: heparin 7500 units TID due to severe morbid obesity Admission and Anticipated Discharge Date Admission Date: January 08, 2020 Subjective Patient reports feeling mildly better in regards to her pain. She denies any symptoms of malaise, fever, chills Review of Systems Review of Systems: All systems reviewed & are unremarkable except as noted in HPI & below Physical Exam Physical Exam: Constitutional: looks well and + morbidly obese; no acute distress and no altered mental status Eyes: + anicteric sclerae and PERRL strabismus right eye with lateral deviation ENMT: external ear and nose normal, oropharynx normal Neck: trachea midline, no thyromegaly Respiratory: no respiratory distress Auscultation: + diminished lung sounds (Bases); no crackles and no wheezes Cardiovascular: Rate/Rhythm: regular rate and regular rhythm Heart Sounds: normal S1 and normal S2; no murmur Vessels: posterior tibial pulses present and dorsalis pedis pulses present; no JVD Extremities: no edema Gastrointestinal (Abdomen): Inspection/Auscultation: normal bowel sounds; abdomen not distended Percussion/Palpation: abdomen soft; no hepatosplenomegaly Musculoskeletal: midline scar t-spine/l-spine well-healed, no erythema; no drainage; mild tenderness to palpation upper lumbar segments in midline Skin: no rashes, warm and dry Neurologic: deep tendon reflexes 2+ bilaterally and moves all extremities Psychiatric: Orientation: alert and oriented x 3 Lymphatic: no cervical lymphadenopathy Results & Data Results & Data ([facility]) Vital Signs (Past 12 Hours) Vital Signs Temp Pulse Pulse Resp BP Pulse Ox 01/11/20 20:00 37.1 C 66 20 148/68 H 90 01/11/20 15:07 36.7 C 66 20 152/80 H 92 01/11/20 14:20 61 01/11/20 12:44 36.7 C 65 20 140/63 92 PG Care Time/CCT Total # of Minutes Spent Total Time Spent with Patient: Total time spent is greater than 50% in coordination of care (as documented) at patient's floor/unit and/or counseling patient: Coding Level of Care Code 32898 Subseq Hosp Care Lvl 2 Diagnoses Viral syndrome B34.[address] scan, lumbar spine R93.7 LUQ abdominal pain R10.12 Exposure to COVID-19 virus Z20.828 Morbid obesity E66.01 Severe obstructive sleep apnea G47.33 Leukopenia D72.819 Thrombocytopenia D69.6 Obesity hypoventilation syndrome E66.2 Dyslipidemia E78.5 GERD (gastroesophageal reflux disease) K21.9 Hypertension I10 Hypertension type: unspecified History of stroke Z86.73 Chronic kidney disease, stage 3a N18.31 DVT prophylaxis Z29.9 Time Spent (min) 25 (1) Hypertension Hypertension type: unspecified Qualified Code(s): I10 - Essential (primary) hypertension
[2020-01-11] MEDS: ACETAMINOPHEN 500 MG TAB PO PRN (21:48)
[2020-01-12] MEDS: MELATONIN 3 MG TAB PO PRN (03:05)
[2020-01-12] MEDS: HEPARIN SOD 5,000 UNIT/0.5 ML VIAL SQ SCH ×3 (05:32→21:31)
--- NOTE | 2020-01-12 09:56 | Orthopedic Progress Note ---
Date of Service January 12, 2020 Assessment & Plan (1) Abdominal pain, right lateral: Admission and Anticipated Discharge Date Admission Date: January 08, 2020 Length yes with this patient describing her updated MRI scans and x-rays. They all appear to be benign there is no evidence of any neural compression. I am unable to explain her rib pain. I have increased her Neurontin to 3 times daily. This seems to provide her some relief. Hopefully this will be effective. She also is describing component of peripheral neuropathy. She is becoming somewhat dependent on oxycodone. We should strongly consider consultation with pain management for further guidance. At this point I see no indication for surgical intervention. Subjective Patient complains of intermittent rib pain with activity. Is been present for several months. She still comfortable ambulating about the room and to the bathroom. She notes burning in her toes typically in the evening. Seems to be more consistent with peripheral neuropathy than radicular complaints as it is not present throughout the day during ambulation. Physical Exam Physical Exam: On exam she has no point tenderness. She has regional strength testing. Results & Data ([facility]) Vital Signs (Past 12 Hours) Vital Signs Temp Pulse Pulse Resp BP Pulse Ox 01/12/20 07:50 36.6 C 63 18 158/78 H 92 01/12/20 03:58 36.9 C 63 20 162/74 H 93 01/12/20 00:45 71 01/11/20 23:52 37.4 C 66 20 169/80 H 94
[2020-01-12] MEDS: PANTOprazole 40 MG TAB PO SCH ×2 (10:09→21:30)
[2020-01-12] MEDS: CHOLECALCIFEROL 1,000 UNITS 25 MCG TAB PO SCH (10:10)
[2020-01-12] MEDS: CLOPIDOGREL BISULFATE 75 MG TAB PO SCH (10:12)
[2020-01-12] MEDS: DICLOFENAC SOD 1% GEL 100 GM TUBE EXT SCH ×4 (10:12→21:36)
[2020-01-12] MEDS: LIDOCAINE 5% 1 PATCH TD SCH (10:12)
[2020-01-12] MEDS: GABAPENTIN 600 MG TAB PO SCH ×3 (10:13→21:30)
[2020-01-12] MEDS: oxyCODONE HCL IR 5 MG TAB (IMMEDIATE RELEASE) PO SCH ×2 (10:15→22:05)
[2020-01-12] MEDS: INSULIN GLARGINE SOLOSTAR 100 UNITS/ML 3 ML PEN SQ SCH (10:32)
[2020-01-12] MEDS: INSULIN ASPART 100 UNITS/ML 3 ML PEN SC SCH ×4 (10:32→21:36)
--- NOTE | 2020-01-12 21:27 | Hospitalist Progress Note ---
Date of Service January 12, 2020 Assessment & Plan (1) Viral syndrome: On admission she was complaining of a constellation of symptoms over days seems suggestive of infectious process. Her leukopenia and thrombocytopenia also suggest a viral process. No tick-borne illness exposures - has been in her PCF most of summer with little outdoors exposure. Occult bacterial process is possible. However this has improved. She did not have contact with covid prior to coming to the hospital. COVID-19 PCR was negative in ER. biofire is negative, rapid flu negative. awaiting cultures, however procal is negative. will hold further antibiotics for now. U/a completely normal - doubt any UTI. If patient becomes febrile, will resume antibiotics. Patient continues to be doing well. Plan is for discharge in AM (2) Abnormal CT scan, lumbar spine: She has had a severe pain over the lower left chest/costal margin dating back to late October after her lumbar back surgery. It is reproducible on exam. CT chest tonight w/o pathology. CT abd/pelvis yesterday with erosive changes at L1-L2 -- radiology questions if discitis could be possible? Could the LUQ/lower left chest wall pain be radicular in origin?? Try voltaren gel qid. Try heat. Low-dose pain meds prn. Appreciate input from Dr. Rodrigues, will continue gabapentin and will have patient followup with pain management as an outpatient if pain does not improve with medications. (3) LUQ abdominal pain: etiology uncertain. see above. consider t-spine and l-spine MRIs. APPRECIATE INPUT FROM ORTHO. consider pain management consult if felt to be radicular in origin. was admitted to hospital in December for same complaint - had extensive w/u for such without etiology found. (4) Exposure to COVID-19 virus: One of the pt's caregivers at the [place] tested + for COVID-19 on Sunday of this week. After contact tracing, this worker had no contact with the patient. 2 COVID test negative. Patient will no longer be a PUI. (5) Morbid obesity: BMI 42.5 (6) Severe obstructive sleep apnea: BiPAP (7) Leukopenia: review of EMR shows that pt's WBC count runs low of end normal chronically (4-6 range). however, it is now worse - viral suppression? other? see "viral syndrome" above (8) Thrombocytopenia: EMR shows platelet count to be low many times in the past. However, in December her platelets were normal. coupled with leukopenia this would suggest viral suppression, sepsis, primary bone marrow disorder, nutritional deficiency, autoimmune disease, etc. (9) Obesity hypoventilation syndrome: with CAMRON should be using BiPAP at HS and likely NC O2 during the day follow O2 sats during the daytime (10) Dyslipidemia: pravastatin 40mg every other day (11) GERD (gastroesophageal reflux disease): PPI bid (12) Hypertension: cont home meds (13) History of stroke: 01/2019 cont plavix for secondary CVA prevention cont statin (14) Chronic kidney disease, stage 3a: baseline CrCl 40s/low 50s (15) DVT prophylaxis: heparin 7500 units TID due to severe morbid obesity Admission and Anticipated Discharge Date Admission Date: January 08, 2020 Subjective 79 yo female reports feeling well. Her pain is slightly better controlled. Review of Systems Review of Systems: All systems reviewed & are unremarkable except as noted in HPI & below Physical Exam Physical Exam: Constitutional: looks well and + morbidly obese; no acute distress and no altered mental status Eyes: + anicteric sclerae and PERRL strabismus right eye with lateral deviation ENMT: external ear and nose normal, oropharynx normal Neck: trachea midline, no thyromegaly Respiratory: no respiratory distress Auscultation: + diminished lung sounds (Bases); no crackles and no wheezes Cardiovascular: Rate/Rhythm: regular rate and regular rhythm Heart Sounds: normal S1 and normal S2; no murmur Vessels: posterior tibial pulses present and dorsalis pedis pulses present; no JVD Extremities: no edema Gastrointestinal (Abdomen): Inspection/Auscultation: normal bowel sounds; a bdomen not distended Percussion/Palpation: abdomen soft; no hepatosplenomegaly Musculoskeletal: midline scar t-spine/l-spine well-healed, no erythema; no drainage; mild tenderness to palpation upper lumbar segments in midline Skin: no rashes, warm and dry Neurologic: deep tendon reflexes 2+ bilaterally and moves all extremities Psychiatric: Orientation: alert and oriented x 3 Lymphatic: no cervical lymphadenopathy Results & Data Results & Data ([facility]) Vital Signs (Past 12 Hours) Vital Signs Temp Pulse Resp BP Pulse Ox 01/12/20 19:46 36.6 C 62 18 183/63 H 95 01/12/20 16:02 36.4 C L 57 L 20 136/87 95 PG Care Time/CCT Total # of Minutes Spent Total Time Spent with Patient: Total time spent is greater than 50% in coordination of care (as documented) at patient's floor/unit and/or counseling patient: Coding Level of Care Code 72346 Subseq Hosp Care Lvl 3 Diagnoses Viral syndrome B34.[address] scan, lumbar spine R93.7 LUQ abdominal pain R10.12 Exposure to COVID-19 virus Z20.828 Morbid obesity E66.01 Severe obstructive sleep apnea G47.33 Leukopenia D72.819 Thrombocytopenia D69.6 Obesity hypoventilation syndrome E66.2 Dyslipidemia E78.5 GERD (gastroesophageal reflux disease) K21.9 Hypertension I10 Hypertension type: unspecified History of stroke Z86.73 Chronic kidney disease, stage 3a N18.31 DVT prophylaxis Z29.9 Time Spent (min) 35 (1) Hypertension Hypertension type: unspecified Qualified Code(s): I10 - Essential (primary) hypertension
[2020-01-12] MEDS: METOPROLOL SUCC 50MG EXT REL TAB PO SCH (21:30)
[2020-01-12] MEDS: PRAVASTATIN SOD 40 MG TAB PO SCH (21:30)
[2020-01-12] MEDS: ESCITALOPRAM OXALATE 20 MG TAB PO SCH (21:30)
[2020-01-13] MEDS: MELATONIN 3 MG TAB PO PRN (03:45)
[2020-01-13] MEDS: HEPARIN SOD 5,000 UNIT/0.5 ML VIAL SQ SCH (05:38)
[2020-01-13] MEDS: DICLOFENAC SOD 1% GEL 100 GM TUBE EXT SCH ×2 (08:27→12:29)
[2020-01-13] MEDS: INSULIN ASPART 100 UNITS/ML 3 ML PEN SC SCH ×2 (08:29→12:29)
[2020-01-13] MEDS: INSULIN GLARGINE SOLOSTAR 100 UNITS/ML 3 ML PEN SQ SCH (08:29)
[2020-01-13] MEDS: LIDOCAINE 5% 1 PATCH TD SCH (08:35)
[2020-01-13] MEDS: oxyCODONE HCL IR 5 MG TAB (IMMEDIATE RELEASE) PO SCH (08:35)
[2020-01-13] MEDS: CHOLECALCIFEROL 1,000 UNITS 25 MCG TAB PO SCH (08:36)
[2020-01-13] MEDS: PANTOprazole 40 MG TAB PO SCH (08:37)
[2020-01-13] MEDS: CLOPIDOGREL BISULFATE 75 MG TAB PO SCH (08:37)
[2020-01-13] MEDS: GABAPENTIN 600 MG TAB PO SCH (08:38)
[2020-01-13] MEDS ORDERED: DOCUSATE SODIUM 100 MG CAP PO ONE (09:32)
--- NOTE | 2020-01-19 23:28 | Discharge Summary ---
Date of Service January 13, 2020 Admission HPI Per Admitting Provider 79yo female with history of lumbar spine surgery in late November [address] Rodrigues, recent enterobacter UTI, T2DM, CAMRON, and HTN presents from the [facility] with 4 days of worsening fatigue, weakness, very poor appetite, malaise, transient right-sided headache last pm, right ear pain, nasal congestion, runny nose, and nausea. 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 The patient herself was tested this past Sunday for COVID but results are unknown. Starting sometime after her lumbar spine surgery she developed a LUQ/left lower chest wall pain that has been persistent. She has had multiple scans, ultrasounds, and x-rays to determine the etiology without success. She has tried various treatments including lidoderm patches also without success. Principal Diagnosis viral syndrome Discharge Exam Constitutional: looks well and + morbidly obese; no acute distress and no altered mental status Eyes: + anicteric sclerae and PERRL strabismus right eye with lateral deviation ENMT: external ear and nose normal, oropharynx normal Neck: trachea midline, no thyromegaly Respiratory: no respiratory distress Auscultation: + diminished lung sounds (Bases); no crackles and no wheezes Cardiovascular: Rate/Rhythm: regular rate and regular rhythm Heart Sounds: normal S1 and normal S2; no murmur Vessels: posterior tibial pulses present and dorsalis pedis pulses present; no JVD Extremities: no edema Gastrointestinal (Abdomen): Inspection/Auscultation: normal bowel sounds; abdomen not distended Percussion/Palpation: abdomen soft; no hepatosplenomegaly Musculoskeletal: midline scar t-spine/l-spine well-healed, no erythema; no drainage; mild tenderness to palpation upper lumbar segments in midline Skin: no rashes, warm and dry Neurologic: deep tendon reflexes 2+ bilaterally and moves all extremities Psychiatric: Orientation: alert and oriented x 3 Lymphatic: no cervical lymphadenopathy Discharge Data Allergies Allergy/AdvReac Type Severity Reaction Status Date / Time Bactrim Allergy Severe THROAT Verified 05/14/15 15:22 CLOSED celecoxib [From Celebrex] Allergy Severe CAUSED Verified 11/27/19 07:24 STROKE meperidine Allergy Severe almost Verified 11/27/19 07:24 "closed throat" midodrine Allergy Severe "almost Verified 11/27/19 07:24 closed throat" Penicillins Allergy Severe ANAPHYLAXIS Verified 11/27/19 07:24 Quinolones Allergy Severe TOLERATED Verified 01/07/20 18:01 LEVAQUIN IV - ELIO 07 sulfamethoxazole Allergy Severe THROAT Verified 11/27/19 07:24 CLOSED trimethoprim Allergy Severe THROAT Verified 11/27/19 07:24 CLOSED diphenoxylate Allergy Intermediate Unknown Verified 11/27/19 07:24 metronidazole [From Flagyl] Allergy Intermediate Hives Verified 11/27/19 07:24 DENILSON Inhibitors Allergy Unknown unknown to Verified 11/27/19 07:24 pt atropine Allergy Unknown Unknown Verified 11/27/19 07:24 carvedilol Allergy Unknown Unknown Verified 11/27/19 07:24 clonazepam [From Klonopin] Allergy Unknown Unknown Verified 11/27/19 07:24 doxycycline Allergy Unknown Unknown Verified 11/27/19 07:24 furosemide [From Lasix] Allergy Unknown Unknown Verified 11/27/19 07:24 Histamine H2 Inhibitors Allergy Unknown unknown to Verified 11/27/19 07:24 pt Iodinated Contrast Media Allergy Unknown JULY 2017 Verified 11/27/19 07:24 [facility] -- TOLERATED WITH SLOW INFUSION PER PATIENT nitrofurantoin Allergy Unknown Unknown Verified 11/27/19 07:24 phenazopyridine Allergy Unknown Unknown Verified 11/27/19 07:24 ranitidine Allergy Unknown Unknown Verified 11/27/19 07:24 repaglinide Allergy Unknown Unknown Verified 11/27/19 07:24 rosiglitazone Allergy Unknown Unknown Verified 11/27/19 07:24 tolterodine [From Detrol] Allergy Unknown Unknown Verified 11/27/19 07:24 cantaloupe Allergy . Verified 01/07/20 18:01 melon Allergy . Verified 01/07/20 18:01 prednisone Allergy . Verified 01/07/20 18:01 watermelon Allergy . Verified 01/07/20 18:01 citalopram [From Celexa] AdvReac Severe . Verified 01/07/20 18:01 glyburide AdvReac Intermediate SEVERE Verified 11/27/19 07:24 ABDOMINAL PAIN metformin AdvReac Intermediate SEVERE Verified 11/27/19 07:24 ABDOMINAL PAIN oxycodone AdvReac Intermediate SEVERE Verified 11/27/19 07:24 WITHDRAWAL SYMPTOMS WHEN TRYING TO STOP TAKING paroxetine AdvReac Intermediate DID NOT Verified 11/27/19 07:24 HELP temazepam AdvReac Intermediate DID NOT Verified 11/27/19 07:24 HELP tramadol AdvReac Intermediate Vomiting Verified 11/27/19 07:24 diazepam AdvReac Mild SEDATION Verified 11/27/19 07:24 LASTING TOO LONG meloxicam [From Mobic] AdvReac Mild SICK TO Verified 11/27/19 07:24 STOMACH albuterol AdvReac Unknown UNK Verified 11/27/19 07:24 carbamazepine AdvReac Unknown Unknown Verified 11/27/19 07:24 ibuprofen AdvReac Unknown Unknown Verified 11/27/19 07:24 lisinopril AdvReac Unknown UNK Verified 11/27/19 07:24 mirtazapine AdvReac Unknown Unknown Verified 11/27/19 07:24 olanzapine AdvReac Unknown Unknown Verified 11/27/19 07:24 rofecoxib AdvReac Unknown Unknown Verified 11/27/19 07:24 valproic acid AdvReac Unknown Unknown Verified 11/27/19 07:24 Consultations 01/08/20 14:40 ED Decision to Admit Stat 01/08/20 23:39 Consult Orthopedic Surgery Routine 01/10/20 12:26 Consult Pain Management Routine Ordered Studies 01/08/20 16:08 CT chest wo con Stat 01/09/20 10:26 MR lumbar spine wo con Routine 01/11/20 09:00 MR thoracic spine wo/w con Routine Hospital Course (1) Viral syndrome: On admission she was complaining of a constellation of symptoms over days seems suggestive of infectious process. Her leukopenia and thrombocytopenia also suggest a viral process. No tick-borne illness exposures - has been in her [facility] most of summer with little outdoors exposure. Occult bacterial process is possible. However this has improved. She did not have contact with covid prior to coming to the hospital. COVID-19 PCR was negative in ER. biofire is negative, rapid flu negative. awaiting cultures, however procal is negative. will hold further antibiotics for now. U/a completely normal - doubt any UTI. If patient becomes febrile, will resume antibiotics. Patient continues to be doing well. Plan is for discharge (2) Abnormal CT scan, lumbar spine: She has had a severe pain over the lower left chest/costal margin dating back to late October after her lumbar back surgery. It is reproducible on exam. CT chest tonight w/o pathology. CT abd/pelvis yesterday with erosive changes at L1-L2 -- radiology questions if discitis could be possible? Could the LUQ/lower left chest wall pain be radicular in origin?? Try voltaren gel qid. Try heat. Low-dose pain meds prn. Appreciate input from Dr. Rodrigues, will continue gabapentin and will have patient followup with pain management as an outpatient if pain does not improve with medications. (3) LUQ abdominal pain: etiology uncertain. see above. consider t-spine and l-spine MRIs. APPRECIATE INPUT FROM ORTHO. consider pain management consult if felt to be radicular in origin. was admitted to hospital in December for same complaint - had extensive w/u for such without etiology found. (4) Exposure to COVID-19 virus: One of the pt's caregivers at the [facility] tested + for COVID-19 on Sunday of this week. After contact tracing, this worker had no contact with the patient. 2 COVID test negative. Patient will no longer be a PUI. (5) Morbid obesity: BMI 42.5 (6) Severe obstructive sleep apnea: BiPAP (7) Leukopenia: review of EMR shows that pt's WBC count runs low of end normal chronically (4-6 range). however, it is now worse - viral suppression? other? see "viral syndrome" above (8) Thrombocytopenia: EMR shows platelet count to be low many times in the past. However, in December her platelets were normal. coupled with leukopenia this would suggest viral suppression, sepsis, primary bone marrow disorder, nutritional deficiency, autoimmune disease, etc. (9) Obesity hypoventilation syndrome: with CAMRON should be using BiPAP at HS and likely NC O2 during the day follow O2 sats during the daytime (10) Dyslipidemia: pravastatin 40mg every other day (11) GERD (gastroesophageal reflux disease): PPI bid (12) Hypertension: cont home meds (13) History of stroke: 01/2019 cont plavix for secondary CVA prevention cont statin (14) Chronic kidney disease, stage 3a: baseline CrCl 40s/low 50s (15) DVT prophylaxis: heparin 7500 units TID due to severe morbid obesity Total Time Total Time Spent Total Time Spent (In Minutes): 32 Total Time Includes: Examination of the Patient, Discharge Planning and Medication Reconciliation Discharge Plan Discharge Items Patient Disposition: [facility] Reason For Visit: VIRAL SYNDROMW, LEFT UPPER QUAD ABD PAIN Discharge Diagnosis: viral syndrome, left upper quad abd pain Condition on Discharge: Fair Activity: Resume your previous activity Non-emergency contact: Primary Care Provider Call non-emergency contact if: you have any medication questions Follow-up/Referrals: MEME, [Primary Care Provider] - Diet: Carb Consistent or DM2 Addtl Attending Provider Instructions: You have been hospitalized for an acute medical problem. During your stay at [facility], we have made an effort to correct the problem that brought you to the hospital while keeping you as comfortable as possible. Medications were used to bring your condition under control and your discharge instructions will include directions for any medications you should take after leaving the hospital. Please make sure you see your Primary Care Provider as part of your follow up plan. We recommend you followup with PCP in 1-2 weeks. Followup with pain management if pain continues. Pending Studies at Discharge: No Stand-Alone Forms: My [facility] [email or web address], Smoking Cessation Skilled Items Patient informed of condition?: No DNR: Yes (DNR/DNI) Discharge Level of Care: Other Communicable Disease: Yes Discharge Prognosis: Stable Lines: None Urinary Catheter: No Medications and DC Order Prescriptions: New oxycodone 5 mg Tablet 2.5 mg PO BID Qty: 0 RF: 0 lidocaine 5 % Adhesive Patch,Medicated 1 patch transdermal QAM Qty: 30 RF: 0 polyethylene glycol 3350 [Miralax] 17 gram/dose powder 17 g PO DAILY PRN (Reason: constipation) Qty: 119 RF: 0 Continued clopidogrel [Plavix] 75 mg tablet 75 mg PO QAM Qty: 30 RF: 1 cholecalciferol (vitamin D3) [Vitamin D3] 125 mcg (5,000 unit) tablet 5,000 unit PO QAM Qty: 30 RF: 5 pantoprazole 40 mg tablet,delayed release (DR/EC) 40 mg PO BID Qty: 60 RF: 5 insulin aspart U-100 [Novolog Flexpen U-100 Insulin] 100 unit/mL (3 mL) insulin pen 14 unit SUBCUT DAILY 90 Days Qty: 12.6 RF: 3 Lantus U-100 Insulin 100 unit/mL solution 45 unit SUBCUT DAILY 90 Days Qty: 40.5 RF: 3 acetaminophen 500 mg tablet 1,000 mg PO Q6H PRN (Reason: fever or pain) Qty: 30 RF: 0 fexofenadine 60 mg tablet 60 mg PO Q12H PRN (Reason: allergy symptoms) Qty: 60 RF: 0 metoprolol succinate [Toprol XL] 50 mg tablet extended release 24 hr 50 mg PO QPM Qty: 90 RF: 1 loperamide [Imodium A-D] 2 mg capsule 4 mg PO .COMPLEX PRN (Reason: Diarrhea) RF: 0 escitalopram oxalate 20 mg tablet 20 mg PO HS RF: 0 ketoconazole 2 % shampoo 1 appln TOP Q14D Qty: 120 RF: 0 docusate sodium [Colace] 100 mg capsule 100 mg PO BID RF: 0 epinephrine 0.3 mg/0.3 mL auto-injector 0.3 mg IM DIRECTED PRN (Reason: Anaphylaxis) RF: 0 biotin 5,000 mcg Tablet,Disintegrating 5,000 mcg PO BID RF: 0 coenzyme Q10 200 mg capsule 200 mg PO QAM RF: 0 melatonin 3 mg Tablet 9 mg PO HS PRN (Reason: Insomnia) RF: 0 pravastatin 40 mg tablet 40 mg PO Q48H RF: 0 nitroglycerin 0.4 mg tablet, sublingual 0.4 mg sublingual DIRECTED PRN (Reason: Chest Pain) RF: 0 albuterol sulfate [Ventolin HFA] 90 mcg/actuation HFA aerosol inhaler 1 puff INHALATION Q4H PRN (Reason: Wheezing) RF: 0 sennosides-docusate sodium [Senokot-S] 8.6-50 mg Tablet 1 tab PO QDL PRN (Reason: Constipation) RF: 0 Changed gabapentin 600 mg tablet 600 mg PO TID Qty: 90 RF: 0 Discontinued oxycodone 5 mg tablet 2.5 mg PO .COMPLEX PRN (Reason: pain) Qty: 21 RF: 0 Discharge Orders: Discharge Order (Routine); Ordered 01/13/20 Ordered By: Gilberto Bronson Admission Data Admit Date/Time: 01/08/20 16:26 Attending Provider: Gilberto Bronson Admit Provider: Silverio Billings Primary Care Provider: Martina VALENTINE Providers: Silverio Billings ; LiliaSalazar macedo Upendra Other Interventions: Discharge Summary Assessment (RN) Last Done: 01/13/20 10:44 Coding Level of Care Code D/C Day Management >30 mins Diagnoses Viral syndrome B34.[address] scan, lumbar spine R93.7 LUQ abdominal pain R10.12 Exposure to COVID-19 virus Z20.828 Morbid obesity E66.01 Severe obstructive sleep apnea G47.33 Leukopenia D72.819 Thrombocytopenia D69.6 Obesity hypoventilation syndrome E66.2 Dyslipidemia E78.5 GERD (gastroesophageal reflux disease) K21.9 Hypertension I10 Hypertension type: unspecified History of stroke Z86.73 Chronic kidney disease, stage 3a N18.31 DVT prophylaxis Z29.9
--- NOTE | 2020-01-23 11:06 | Coding Query ---
SEPSIS There is documentation on H&P, Progress Notes and Discharge Summary of, "coupled with leukopenia this would suggest viral suppression, sepsis, primary bone marrow disorder, nutritional deficiency, autoimmune disease, etc." To promote full compliance with coding requirements relating to patient care, physician participation is requested in all cases of [employer] uncertainty. Please assist us with the question(s) below: In responding to this query, please exercise your independent professional judgement. The fact that a question is asked does not imply that any particular answer is desired or expected. We appreciate your clarification on this issue. Throughout the medical record, you have clearly documented a localized infection and your patient has clinical evidence of a generalized sepsis or severe sepsis. The term urosepsis is a nonspecific entity and is coded as an UTI. If the patient has sepsis, severe sepsis, from an urinary source or some other source, please clarify in your response below. The medical record reflects the following clinical findings: (With dates as appropriate) (Body temperature of >38.3 C(101 F) or <36 C(96.8F), pulse >90/minute, respirations >20/minute, WBC count >12,000 or <4,000, altered mental status, significant edema or positive fluid balance, hyperglycemia without diabetes, hypotension, metabolic acidosis (elev. lactate level, anion gap or reduced blood pH), shock, positive blood culture (enter organism) ____ () Sepsis Specify Organism Specify Associated Condition/Diagnosis () Present on Admission () Not present on admission () Unable to clinically determine () Severe Sepsis (Sepsis associated with acute organ dysfunction) Specify Organism Specify Associated Condition/Diagnosis () Present on Admission () Not present on admission () Unable to clinically determine () Septic Shock (Severe sepsis with acute circulatory failure, unexplained by other causes) () Present on Admission () Not present on admission () Unable to clinically determine () Other, patient has: (x) NO Sepsis - this is Ruled-Out MTDD
== END 2020-01-13 13:41 | disposition home or self-care (01) | DRG 866 ==
LOC: ED 10:02 → SUATTDRO 16:26 → EDINP 16:26 → 2N 23:54

== ENCOUNTER 2021-05-19 19:43 | Observation (INO) ==
[2021-05-19] MEDS ORDERED: ASPIRIN CHEW 324 MG PO STA (20:16)
[2021-05-19 20:41] LABS: Basophils # (auto) 0.02 K/uL (0-0.2); Basophils % (auto) 0.3 %; Eosinophils # (auto) 0.08 K/uL (0-0.5); Eosinophils % (auto) 1.2 %; Hematocrit (blood only) 37.9 % (37-47); Hemoglobin 11.8 g/dL (12.0-16.0); Immature Granulocytes # (auto) 0.01 K/uL (0.00-0.02); Immature Granulocytes % (auto) 0.2 %; Lymphocytes # (auto) 1.22 K/uL (1.2-3.4); Lymphocytes % (auto) 18.7 %; Mean Corpuscular Hemoglobin 24.4 pg (25-34); Mean Corpuscular Hgb Conc 31.1 g/dL (32-36); Mean Corpuscular Volume 78.5 fL (80-100); Monocytes # (auto) 0.42 K/uL (0.11-0.59); Monocytes % (auto) 6.4 %; Neutrophils # (auto) 4.78 K/uL (1.4-6.5); Neutrophils % (auto) 73.2 %; Platelet Count 106 K/uL (130-400); RDW Coefficient of Variation 14.9 % (11.5-14.5); RDW Standard Deviation 42.6 fL (36.4-46.3); Red Blood Count 4.83 M/uL (4.2-5.4); White Blood Count 6.53 K/uL (4.8-10.8)
--- NOTE | 2021-05-19 20:46 | XRay Report ---
SINGLE VIEW CHEST CLINICAL HISTORY: Atypical chest pain. FINDINGS: 2 AP, portable, upright chest radiographs are compared to study dated 12/16/2019 and correla cindi with chest CT dated 01/08/2020. The examination is degraded by portable technique and apical lordo tic positioning. The heart is top normal for projection noting atherosclerotic calcification of the t horacic aorta. Chronic interstitial thickening is similar to previous. There is bibasilar scarring/at electasis. No airspace consolidation or large pleural effusion is identified. No pneumothorax is seen . The skeletal structures are osteopenic. The bony thorax is grossly intact. Arthritic change is note d in the shoulders and thoracic spine. IMPRESSION: No active disease in the chest. ACT 112: Negative or not required by law. Electronically signed by: Joey Patterson M.D. 05/19/2021 8:45 PM
[2021-05-19 20:55] LABS: D Dimer 390 ug/L FEU (0-500); INR 1.2 (0.9-1.1); Partial Thromboplastin Ratio 0.9; Partial Thromboplastin Time 24.4 Seconds (21.0-31.0); Prothrombin Time 11.7 Seconds (9.0-12.0)
--- NOTE | 2021-05-19 20:59 | CT Scan Report ---
CT SCAN OF THE BRAIN WITHOUT IV CONTRAST CLINICAL HISTORY: Headache. COMPARISON STUDY: CT of the brain dated 02/08/2019. TECHNIQUE: Unenhanced axial CT scan of the brain is performed from the vertex to the skull base. A do se lowering technique was utilized adhering to the principles of ALARA. CT DOSE: 884.08 mGy.cm FINDINGS: Brain parenchyma: There are age-related involutional changes noting moderate subcortical and periven tricular microangiopathic change. There is no hemorrhage, mass effect, or evidence of acute territori al ischemia by CT criteria. Fregoso-white matter differentiation is preserved. No extra-axial fluid chuy ection is seen. A 1.6 cm calcified extra-axial lesion along the right temporal convexity is unchanged and typical for a meningioma. Ventricles, sulci, cisterns: Prominent secondary to involutional change. Intracranial vasculature: There is atherosclerotic calcification of the cavernous carotid and vertebr al arteries. Calvarium: Unremarkable. Sinuses and mastoids: The paranasal sinuses are clear. The mastoid air cells are well pneumatized. Orbits: The bony orbits are grossly intact. There are bilateral ocular lens implants. IMPRESSION: 1. There is no hemorrhage, mass effect, or evidence of acute territorial ischemia by CT criteria. 2. A calcified meningioma along the right convexity is unchanged. ACT 112: Negative or not required by law. Electronically signed by: Joey Patterson M.D. 05/19/2021 8:57 PM
[2021-05-19 21:01] LABS: BUN Creatinine Ratio 25.6 (10-20); Calcium 8.7 mg/dl (8.5-10.1); Creatinine Clr Calc Pharmacy 38.5 ml/min; Est GFR (African American) 43.6 ml/min; Est GFR (Non-African American) 37.7 ml/min; Potassium 4.3 mmol/L (3.5-5.1)
[2021-05-19 21:02] LABS: Troponin I 0.03 ng/ml (0-0.04)
--- NOTE | 2021-05-19 22:43 | History & Physical Report ---
Date of Service May 19, 2021 Assessment & Plan (1) Chest pain: (2) Generalized weakness: (3) Anxiety: (4) Depression: (5) Severe obstructive sleep apnea: (6) T2DM (type 2 diabetes mellitus): (7) UTI (urinary tract infection): (8) PAC (premature atrial contraction): (9) PVC (premature ventricular contraction): Plan: 80 yo F Hx CVA, CKD, DM2, anxiety, depression, CAMRON/OHS, GERD admitted for generalized weakness and chest palpitations/pain rule out. Chest pain, palpitations: Reports several episodes of chest palpitations throughout the day with some midsternal tightness and sensation of breathlessness. Vital signs normal, EKG normal. D-dimer negative. A1c 6.8% on 05/17/21. Cholesterol under good control as of 08/2020 lipid panel. Moderate HEART score, and so will monitor overnight. Troponin detectable x1, will trend. Received aspirin 324 in ER. Will start daily if evidence of ACS (elevated troponin, Echo with abnormal wall motion). Continue Plavix, metoprolol succinate, statin. Echocardiogram in AM. Telemetry for cardiac monitoring; has a history of PVCs and PACs per EMR. Generalized weakness: Unclear etiology; perhaps infectious given current UTI, general deconditioning, medication side effect (gabapentin?). CT Head without acute abnormalities. No signs of systemic infection on labwork, no abnormal vital signs. Will decrease gabapentin to 400mg BID. Treatment of UTI as described below with change in antibiotic given continued symptoms despite several days of treatment. PT and OT evaluations while admitted. UTI: Patient has been on Cipro for UTI symptoms. UCx growing Klebsiella, started on Cipro (sensitive on culture). Continues to have symptoms, and unfortunately has several antibiotic allergies on record. Will start Aztreonam 1g q8h for complicated UTI. DM2: Basal/bolus insulin while admitted. DM2 diet. OHS/CAMRON: Noninvasive positive pressure ventilation qHS. CVA Hx: 2019 left pontine stroke, follows with [facility] [facility] [place]. No focal deficits this admission. CT Head without new pathology. Continue beta andreia, statin, Plavix. Anxiety, depression: Continue escitalopram. Code Status: DNR/DNI FEN: DM2, heart healthy diet DVT ppx: Lovenox BID Dispo: Med/Surg with Telemetry History of Present Illness Chief Complaint: weakness, palpitations Primary Care Provider: MEME 80 yo F Hx CVA, CKD, DM2, anxiety, depression, CAMRON/OHS, GERD presented to the ER for several days of worsening generalized weakness and palpitations/chest pressure. She also reports that she was recently diagnosed with a UTI (pelvic pressure, hematuria, urinary frequency) several days ago and has been on Cipro however she continues to have the same symptoms. Her UCx from this current infection was pansensitive (save for Macrobid). Lastly, she reports that her gabapentin was increased an unknown amount of time ago and perhaps her weakness is associated with that. In the ER she was noted to have normal vital signs, labwork notable for creatinine 1.33 (baseline 1.0-1.3) with elevated BUN/Cr ratio, troponin detectable at 0.03, COVID-[address] Head with previously noted meningioma, otherwise no acute pathology. CXR without evidence of pneumonia or fluid overload. EKG normal sinus rhythm. Allergies Allergy/AdvReac Type Severity Reaction Status Date / Time Bactrim Allergy Severe THROAT Verified 05/14/15 15:22 CLOSED celecoxib [From Celebrex] Allergy Severe CAUSED Verified 01/11/21 13:23 STROKE meperidine Allergy Severe almost Verified 05/19/21 21:20 "closed throat" midodrine Allergy Severe "almost Verified 01/11/21 13:23 closed throat" Penicillins Allergy Severe ANAPHYLAXIS Verified 01/11/21 13:23 sulfamethoxazole Allergy Severe THROAT Verified 01/11/21 13:23 CLOSED trimethoprim Allergy Severe THROAT Verified 01/11/21 13:23 CLOSED diphenoxylate Allergy Intermediate Unknown Verified 01/11/21 13:23 metronidazole [From Flagyl] Allergy Intermediate Hives Verified 01/11/21 13:23 DENILSON Inhibitors Allergy Unknown unknown to Verified 01/11/21 13:23 pt atropine Allergy Unknown Unknown Verified 01/11/21 13:23 carvedilol Allergy Unknown Unknown Verified 01/11/21 13:23 clonazepam [From Klonopin] Allergy Unknown Unknown Verified 01/11/21 13:23 doxycycline Allergy Unknown Unknown Verified 05/19/21 21:20 furosemide [From Lasix] Allergy Unknown Unknown Verified 05/19/21 21:20 Histamine H2 Inhibitors Allergy Unknown unknown to Verified 01/11/21 13:23 pt Iodinated Contrast Media Allergy Unknown JULY 2017 Verified 01/11/21 13:23 [facility] -- TOLERATED WITH SLOW INFUSION PER PATIENT nitrofurantoin Allergy Unknown Unknown Verified 05/19/21 21:20 phenazopyridine Allergy Unknown Unknown Verified 05/19/21 21:20 ranitidine Allergy Unknown Unknown Verified 01/11/21 13:23 repaglinide Allergy Unknown Unknown Verified 01/11/21 13:23 rosiglitazone Allergy Unknown Unknown Verified 01/11/21 13:23 tolterodine [From Detrol] Allergy Unknown Unknown Verified 01/11/21 13:23 cantaloupe Allergy . Verified 01/11/21 13:23 melon Allergy . Verified 01/11/21 13:23 prednisone Allergy . Verified 01/11/21 13:23 watermelon Allergy . Verified 01/11/21 13:23 citalopram [From Celexa] AdvReac Severe . Verified 01/11/21 13:23 glyburide AdvReac Intermediate SEVERE Verified 01/11/21 13:23 ABDOMINAL PAIN metformin AdvReac Intermediate SEVERE Verified 01/11/21 13:23 ABDOMINAL PAIN oxycodone AdvReac Intermediate SEVERE Verified 01/11/21 13:23 WITHDRAWAL SYMPTOMS WHEN TRYING TO STOP TAKING paroxetine AdvReac Intermediate DID NOT Verified 01/11/21 13:23 HELP temazepam AdvReac Intermediate DID NOT Verified 01/11/21 13:23 HELP tramadol AdvReac Intermediate Vomiting Verified 01/11/21 13:23 diazepam AdvReac Mild SEDATION Verified 01/11/21 13:23 LASTING TOO LONG meloxicam [From Mobic] AdvReac Mild SICK TO Verified 01/11/21 13:23 STOMACH albuterol AdvReac Unknown UNK Verified 01/11/21 13:23 carbamazepine AdvReac Unknown Unknown Verified 01/11/21 13:23 ibuprofen AdvReac Unknown Unknown Verified 05/19/21 21:20 lisinopril AdvReac Unknown UNK Verified 01/11/21 13:23 mirtazapine AdvReac Unknown Unknown Verified 01/11/21 13:23 olanzapine AdvReac Unknown Unknown Verified 01/11/21 13:23 rofecoxib AdvReac Unknown Unknown Verified 01/11/21 13:23 valproic acid AdvReac Unknown Unknown Verified 05/19/21 21:20 Home Medications Medication Instructions Recorded Confirmed Type docusate sodium 100 mg capsule 100 mg PO BID PRN 10/22/19 05/19/21 History (Colace) albuterol sulfate 90 mcg/actuation 1 puff INHALATION Q4H PRN 12/09/19 05/19/21 History aerosol inhaler (Ventolin HFA) nitroglycerin 0.4 mg sublingual 0.4 mg SUBLINGUAL DIRECTED PRN 12/09/19 05/19/21 History tablet polyethylene glycol 3350 17 17 g PO DAILY PRN #119 g 01/13/20 05/19/21 Rx gram/dose oral powder (Miralax) acetaminophen 500 mg tablet 1,000 mg PO Q6H PRN #60 tab MDD 3g 01/29/20 05/19/21 Rx cholecalciferol (vitamin D3) 125 5,000 unit PO QAM #30 tab 01/29/20 05/19/21 Rx mcg (5,000 unit) tablet (Vitamin D3) escitalopram oxalate 20 mg tablet 20 mg PO HS #30 tab 01/29/20 05/19/21 Rx pravastatin 40 mg tablet 40 mg PO Q48H #15 tab 01/29/20 05/19/21 Rx lancets #100 ea 03/03/20 01/11/21 History melatonin 3 mg tablet 3 mg PO HS PRN #30 tab 03/03/20 05/19/21 Rx clopidogrel 75 mg tablet (Plavix) 75 mg PO QAM 06/02/20 05/19/21 History lactase 9,000 unit chewable tablet 9,000 unit PO QID PRN #120 tab 07/02/20 05/19/21 Rx (Lactaid Fast Act) blood-glucose meter,continuous #1 ea 09/13/20 01/25/21 History (Dexcom G6 Senior Tableau Developer) blood-glucose sensor (Dexcom G6 #3 ea 09/13/20 01/25/21 History Sensor) blood-glucose transmitter (Dexcom #1 ea 09/13/20 01/25/21 History G6 Transmitter) BD Ultra-Fine Short Pen Needle 31 #400 ea NS 10/08/20 01/11/21 Rx gauge x 5/16" (pen needle, diabetic) diphenoxylate-atropine 2.5 1 tab PO BID PRN #10 tab 11/05/20 05/19/21 Rx mg-0.025 mg tablet (Lomotil) pantoprazole 40 mg tablet,delayed 40 mg PO BIDM 11/05/20 05/19/21 History release vit C 250 mg-vit E 90 mg-zinc 40 1 tab PO BID 11/05/20 05/19/21 History mg-copper 1 gm-nyzjav-edjpon capsule (PreserVision AREDS-2) thiamine HCl (vitamin B1) 100 mg 100 mg PO DAILY 30 Days #30 tab 11/10/20 05/19/21 Rx tablet vitamin B complex 1 tab PO DAILY #60 tab 11/24/20 05/19/21 Rx ipratropium bromide 21 mcg (0.03 2 spray INTRANASAL DAILY #30 ml 01/11/21 05/19/21 Rx %) nasal spray diclofenac sodium 1 % topical gel 4 g TOPICAL QID PRN #100 g 01/25/21 05/19/21 Rx gabapentin 400 mg capsule 400 mg PO TID 30 Days #90 cap 01/25/21 05/19/21 Rx loperamide 2 mg capsule (Imodium 4 mg PO DIRECTED PRN #90 cap 01/31/21 05/19/21 Rx A-D) metoprolol succinate 50 mg 50 mg PO QPM #90 tab 04/29/21 05/19/21 Rx tablet,extended release 24 hr (Toprol XL) epinephrine 0.3 mg/0.3 mL 0.3 mg IM DIRECTED PRN #1 ea 05/03/21 05/19/21 Rx injection, auto-injector insulin degludec 100 unit/mL (3 48 unit SUBCUT QAM #15 ml 05/03/21 05/19/21 Rx mL) subcutaneous pen (Tresiba FlexTouch U-100 insulin) cyanocobalamin (vitamin B-12) 1,000 mcg PO DAILY 05/19/21 05/19/21 History 1,000 mcg tablet (Vitamin B-12) diphenhydramine HCl 25 mg tablet 25 mg PO DAILY PRN 05/19/21 05/19/21 History (Benadryl Allergy) hydrocortisone 1 % topical cream 1 applic TOPICAL BID PRN 05/19/21 05/19/21 History insulin aspart U-100 100 unit/mL 16 unit SUBCUT UD 05/19/21 05/19/21 History (3 mL) subcutaneous pen (Novolog Flexpen U-100 Insulin aspart) lidocaine 4 % topical patch 2 patch TOPICAL DAILY PRN 05/19/21 05/19/21 History (Salonpas (lidocaine)) loratadine 10 mg tablet (Claritin) 10 mg PO DAILY PRN 05/19/21 05/19/21 History meloxicam 7.5 mg tablet (Mobic) 7.5 mg PO BID PRN 05/19/21 05/19/21 History nystatin 100,000 unit/gram topical 1 applic TOPICAL BID PRN 05/19/21 05/19/21 History powder Past Med/Surg History Medical History Acute hypercapnic respiratory failure 03/2019 [facility] DEB (acute kidney injury) Anxiety and depression Asthma Per pulmonology 10/10/19, likely NOT asthma but chronic aspiration. Flovert and Spiriva discontinued, pt to use albuterol PRN Breast cancer UNSURE WHICH SIDE WAS CANCER. Chronic back pain Chronic neck pain Chronic pulmonary aspiration 2/2 h/o CVA, CAMRON. Fusion of spine GERD (gastroesophageal reflux disease) History of benign brain tumor History of dysphagia ESOPHAGEAL DILATION IN PAST History of esophageal dilatation History of spinal stenosis History of stroke History of uterine cancer Endometrial biopsy revealed endometrioid adenocarcinoma. Status post total abdominal hysterectomy and bilateral salpingo-oophorectomy. Status post completion of radiation therapy with external beam radiation as well as 2 HDR treatments completed 08/15/2013 Hypertension Left pontine stroke 01/2019, on Plavix, following with [facility] [place] [place]. Lymphedema of right arm CHRONIC, 2/2 MASTECTOMY Meningioma R temporal lobe, neurology monitoring. Microalbuminuria due to type 2 diabetes mellitus Microcytic anemia Morbid obesity Neuropathy Numb feet, painful radiculopathy in hands from cervical radiculopathy Obesity hypoventilation syndrome Osteoarthritis PAC (premature atrial contraction) PVC (premature ventricular contraction) Sensorineural hearing loss (SNHL) of both ears Severe obstructive sleep apnea CPAP, pt reports compliance T2DM (type 2 diabetes mellitus) Uterine cancer S/P RICHARD BSO WITH RADIATION Weakness Surgical History Difficult airway for intubation History of cardiac catheterization NO STENTS History of cataract surgery BILATERAL History of cholecystectomy History of colonoscopy History of esophagogastroduodenoscopy (EGD) History of knee surgery ARTHROSCOPY LEFT KNEE History of mastectomy BILATERAL History of total abdominal hysterectomy BSO Family History Mother Diabetes Myocardial infarction Hypertension Family history of diabetes mellitus Brother Family history of diabetes mellitus Denies family history of Ovarian cancer Prostate cancer Breast cancer Colorectal cancer Social History Smoking Status: Never smoker Age Started Using Tobacco: 15; Age Quit Using Tobacco: 30; packs per day: 1; Second Hand Exposure: No; Hx Alcohol Use: No Hx Substance Use: No Preferred Language: Malay Communication Ability: Effective Visual Impairment: Partially Limited Hearing Ability: Hard of Hearing Statue Maker Required: No Beliefs That Will Affect Care: None marital status: / Current Living Situation: Personal Care Facility Current Living Situation Comment: Assisted living current occupational status: retired Feels Safe at Home: Yes Childhood Exposure to Second-Hand Smoke: No Dental Care, Regularly: Yes Physical Activity Frequency: Does not Exercise Seatbelt Use: always Sunscreen Use: Yes Assistive Devices: Walker and Wheelchair Review of Systems Review of Systems: All systems reviewed & are unremarkable except as noted in HPI & below Constitutional: no fever, no chills and no malaise Respiratory: no cough and no dyspnea Cardiovascular: no chest pain, no palpitations and no edema Gastrointestinal: no abdominal pain, no constipation and no diarrhea/loose stools Genitourinary: no dysuria and no hematuria Physical Exam Constitutional: WD/WN, vitals as above Eyes: PERRL, conjunctivae normal, anicteric sclerae ENMT: external ear and nose normal, oropharynx normal Neck: normal visual inspection Respiratory: normal respiratory effort, lungs clear to auscultation Cardiovascular: RRR, no murmur, no edema Gastrointestinal (Abdomen): soft, mild suprapubic tenderness, normal bowel sounds Musculoskeletal: no cyanosis or clubbing, extremities motor strength 5/5 Skin: no rashes, warm and dry Neurologic: AAOx3, normal speech. Normal visual acuity bilaterally. Bilateral UE, LE, and face without sensory or motor deficits. No tremor. Psychiatric: A+Ox3, euthymic affect Results & Data Results & Data ([facility]) Vital Signs (Past 12 Hours) Vital Signs Temp Pulse Pulse Resp BP Pulse Ox 05/19/21 20:36 36.5 C 65 20 97 05/19/21 20:25 65 18 144/74 H 96 Supervising Physician Co-Signing Physician Notes Attending addendum: I have physically seen this patient, have supervised the medical residents activities, and agree with the H&P unless as otherwise noted. Assessment and Plan: Generalized weakness- Multifactorial, including but not limited to: UTI, generalized deconditioning, medication side effects (recently increased gabapentin dose) Consult PT/OT Chest pain/palpitations- The patient will be admitted to telemetry for serial cardiac enzymes, serial EKG's, cardiac rhythm monitoring and a 2-D echocardiogram with Dopplers. Status post ASA 324 mg in ED Continue clopidogrel, metoprolol succinate Urinary tract infection- Present urine culture growing Klebsiella Stop Cipro in the event of contributing to weakness Started aztreonam 1 g IV every 8 hours Remaining orders and notations as noted Resident Activity Tracking Resident Involvement: Resident Care Provided Care Provided: Adult Hospital Medicine
[2021-05-19] MEDS ORDERED: SODIUM CHLORIDE 0.9% 1000ML 500 ML IV ONE (23:04)
[2021-05-19] MEDS: AZTREONAM 1,000 MG in DEXTROSE 5% 100 ML IV SCH (23:56)
--- NOTE | 2021-05-20 00:13 | Emergency Department Note ---
History of Present Illness General Chief Complaint: Weakness Stated Complaint: weakness Time Seen by Provider: 05/19/21 20:09 History of Present Illness Provider Complaint: chest pain Onset (ago): day(s) 3 Duration: constant Onset: during rest Pain Location: substernal Pain Radiation: none Severity: moderate Maximum Pain Intensity: 8 Current Pain Intensity: 8 Quality: + dull Relieved By: + nothing Exacerbated By: + nothing Context: no recent illness, no recent surgery, no recent immobilization, no recent travel, no trauma/injury, no new medications or no history of DVT/PE Associated symptoms: + dyspnea and + palpitations; no nausea, no vomiting, no diaphoresis, no sense of impending doom, no syncope, no fever or no cough Home Medications Medication Instructions Recorded Confirmed Type docusate sodium 100 mg capsule 100 mg PO BID PRN 10/22/19 05/19/21 History (Colace) albuterol sulfate 90 mcg/actuation 1 puff INHALATION Q4H PRN 12/09/19 05/19/21 History aerosol inhaler (Ventolin HFA) nitroglycerin 0.4 mg sublingual 0.4 mg SUBLINGUAL DIRECTED PRN 12/09/19 05/19/21 History tablet polyethylene glycol 3350 17 17 g PO DAILY PRN #119 g 01/13/20 05/19/21 Rx gram/dose oral powder (Miralax) acetaminophen 500 mg tablet 1,000 mg PO Q6H PRN #60 tab MDD 3g 01/29/20 05/19/21 Rx cholecalciferol (vitamin D3) 125 5,000 unit PO QAM #30 tab 01/29/20 05/19/21 Rx mcg (5,000 unit) tablet (Vitamin D3) escitalopram oxalate 20 mg tablet 20 mg PO HS #30 tab 01/29/20 05/19/21 Rx pravastatin 40 mg tablet 40 mg PO Q48H #15 tab 01/29/20 05/19/21 Rx lancets #100 ea 03/03/20 01/11/21 History melatonin 3 mg tablet 3 mg PO HS PRN #30 tab 03/03/20 05/19/21 Rx clopidogrel 75 mg tablet (Plavix) 75 mg PO QAM 06/02/20 05/19/21 History lactase 9,000 unit chewable tablet 9,000 unit PO QID PRN #120 tab 07/02/20 05/19/21 Rx (Lactaid Fast Act) blood-glucose meter,continuous #1 ea 09/13/20 01/25/21 History (Dexcom G6 Child Development Instructor) blood-glucose sensor (Dexcom G6 #3 ea 09/13/20 01/25/21 History Sensor) blood-glucose transmitter (Dexcom #1 ea 09/13/20 01/25/21 History G6 Transmitter) BD Ultra-Fine Short Pen Needle 31 #400 ea NS 10/08/20 01/11/21 Rx gauge x 5/16" (pen needle, diabetic) diphenoxylate-atropine 2.5 1 tab PO BID PRN #10 tab 11/05/20 05/19/21 Rx mg-0.025 mg tablet (Lomotil) pantoprazole 40 mg tablet,delayed 40 mg PO BIDM 11/05/20 05/19/21 History release vit C 250 mg-vit E 90 mg-zinc 40 1 tab PO BID 11/05/20 05/19/21 History mg-copper 1 [id number] capsule (PreserVision AREDS-2) thiamine HCl (vitamin B1) 100 mg 100 mg PO DAILY 30 Days #30 tab 11/10/20 05/19/21 Rx tablet vitamin B complex 1 tab PO DAILY #60 tab 11/24/20 05/19/21 Rx ipratropium bromide 21 mcg (0.03 2 spray INTRANASAL DAILY #30 ml 01/11/21 05/19/21 Rx %) nasal spray diclofenac sodium 1 % topical gel 4 g TOPICAL QID PRN #100 g 01/25/21 05/19/21 Rx gabapentin 400 mg capsule 400 mg PO TID 30 Days #90 cap 01/25/21 05/19/21 Rx loperamide 2 mg capsule (Imodium 4 mg PO DIRECTED PRN #90 cap 01/31/21 05/19/21 Rx A-D) metoprolol succinate 50 mg 50 mg PO QPM #90 tab 04/29/21 05/19/21 Rx tablet,extended release 24 hr (Toprol XL) epinephrine 0.3 mg/0.3 mL 0.3 mg IM DIRECTED PRN #1 ea 05/03/21 05/19/21 Rx injection, auto-injector insulin degludec 100 unit/mL (3 48 unit SUBCUT QAM #15 ml 05/03/21 05/19/21 Rx mL) subcutaneous pen (Tresiba FlexTouch U-100 insulin) cyanocobalamin (vitamin B-12) 1,000 mcg PO DAILY 05/19/21 05/19/21 History 1,000 mcg tablet (Vitamin B-12) diphenhydramine HCl 25 mg tablet 25 mg PO DAILY PRN 05/19/21 05/19/21 History (Benadryl Allergy) hydrocortisone 1 % topical cream 1 applic TOPICAL BID PRN 05/19/21 05/19/21 History insulin aspart U-100 100 unit/mL 16 unit SUBCUT UD 05/19/21 05/19/21 History (3 mL) subcutaneous pen (Novolog Flexpen U-100 Insulin aspart) lidocaine 4 % topical patch 2 patch TOPICAL DAILY PRN 05/19/21 05/19/21 History (Salonpas (lidocaine)) loratadine 10 mg tablet (Claritin) 10 mg PO DAILY PRN 05/19/21 05/19/21 History meloxicam 7.5 mg tablet (Mobic) 7.5 mg PO BID PRN 05/19/21 05/19/21 History nystatin 100,000 unit/gram topical 1 applic TOPICAL BID PRN 05/19/21 05/19/21 H istory powder Allergies Allergy/AdvReac Type Severity Reaction Status Date / Time Bactrim Allergy Severe THROAT Verified 05/14/15 15:22 CLOSED celecoxib [From Celebrex] Allergy Severe CAUSED Verified 01/11/21 13:23 STROKE meperidine Allergy Severe almost Verified 05/19/21 21:20 "closed throat" midodrine Allergy Severe "almost Verified 01/11/21 13:23 closed throat" Penicillins Allergy Severe ANAPHYLAXIS Verified 01/11/21 13:23 sulfamethoxazole Allergy Severe THROAT Verified 01/11/21 13:23 CLOSED trimethoprim Allergy Severe THROAT Verified 01/11/21 13:23 CLOSED diphenoxylate Allergy Intermediate Unknown Verified 01/11/21 13:23 metronidazole [From Flagyl] Allergy Intermediate Hives Verified 01/11/21 13:23 DENILSON Inhibitors Allergy Unknown unknown to Verified 01/11/21 13:23 pt atropine Allergy Unknown Unknown Verified 01/11/21 13:23 carvedilol Allergy Unknown Unknown Verified 01/11/21 13:23 clonazepam [From Klonopin] Allergy Unknown Unknown Verified 01/11/21 13:23 doxycycline Allergy Unknown Unknown Verified 05/19/21 21:20 furosemide [From Lasix] Allergy Unknown Unknown Verified 05/19/21 21:20 Histamine H2 Inhibitors Allergy Unknown unknown to Verified 01/11/21 13:23 pt Iodinated Contrast Media Allergy Unknown JULY 2017 Verified 01/11/21 13:23 [facility] -- TOLERATED WITH SLOW INFUSION PER PATIENT nitrofurantoin Allergy Unknown Unknown Verified 05/19/21 21:20 phenazopyridine Allergy Unknown Unknown Verified 05/19/21 21:20 ranitidine Allergy Unknown Unknown Verified 01/11/21 13:23 repaglinide Allergy Unknown Unknown Verified 01/11/21 13:23 rosiglitazone Allergy Unknown Unknown Verified 01/11/21 13:23 tolterodine [From Detrol] Allergy Unknown Unknown Verified 01/11/21 13:23 cantaloupe Allergy . Verified 01/11/21 13:23 melon Allergy . Verified 01/11/21 13:23 prednisone Allergy . Verified 01/11/21 13:23 watermelon Allergy . Verified 01/11/21 13:23 citalopram [From Celexa] AdvReac Severe . Verified 01/11/21 13:23 glyburide AdvReac Intermediate SEVERE Verified 01/11/21 13:23 ABDOMINAL PAIN metformin AdvReac Intermediate SEVERE Verified 01/11/21 13:23 ABDOMINAL PAIN oxycodone AdvReac Intermediate SEVERE Verified 01/11/21 13:23 WITHDRAWAL SYMPTOMS WHEN TRYING TO STOP TAKING paroxetine AdvReac Intermediate DID NOT Verified 01/11/21 13:23 HELP temazepam AdvReac Intermediate DID NOT Verified 01/11/21 13:23 HELP tramadol AdvReac Intermediate Vomiting Verified 01/11/21 13:23 diazepam AdvReac Mild SEDATION Verified 01/11/21 13:23 LASTING TOO LONG meloxicam [From Mobic] AdvReac Mild SICK TO Verified 01/11/21 13:23 STOMACH albuterol AdvReac Unknown UNK Verified 01/11/21 13:23 carbamazepine AdvReac Unknown Unknown Verified 01/11/21 13:23 ibuprofen AdvReac Unknown Unknown Verified 05/19/21 21:20 lisinopril AdvReac Unknown UNK Verified 01/11/21 13:23 mirtazapine AdvReac Unknown Unknown Verified 01/11/21 13:23 olanzapine AdvReac Unknown Unknown Verified 01/11/21 13:23 rofecoxib AdvReac Unknown Unknown Verified 01/11/21 13:23 valproic acid AdvReac Unknown Unknown Verified 05/19/21 21:20 Past Med/Surg History Medical History Acute hypercapnic respiratory failure 03/2019 [facility]B (acute kidney injury) Anxiety and depression Asthma Per pulmonology 10/10/19, likely NOT asthma but chronic aspiration. Flovert and Spiriva discontinued, pt to use albuterol PRN Breast cancer UNSURE WHICH SIDE WAS CANCER. Chronic back pain Chronic neck pain Chronic pulmonary aspiration 2/2 h/o CVA, [facility]. Fusion of spine GERD (gastroesophageal reflux disease) History of benign brain tumor History of dysphagia ESOPHAGEAL DILATION IN PAST History of esophageal dilatation History of spinal stenosis History of stroke History of uterine cancer Endometrial biopsy revealed endometrioid adenocarcinoma. Status post total abdominal hysterectomy and bilateral salpingo-oophorectomy. Status post completion of radiation therapy with external beam radiation as well as 2 HDR treatments completed 08/15/2013 Hypertension Left pontine stroke 01/2019, on Plavix, [place] [facility] [place]. Lymphedema of right arm CHRONIC, 2/2 MASTECTOMY Meningioma R temporal lobe, neurology monitoring. Microalbuminuria due to type 2 diabetes mellitus Microcytic anemia Morbid obesity Neuropathy Numb feet, painful radiculopathy in hands from cervical radiculopathy Obesity hypoventilation syndrome Osteoarthritis PAC (premature atrial contraction) PVC (premature ventricular contraction) Sensorineural hearing loss (SNHL) of both ears Severe obstructive sleep apnea CPAP, pt reports compliance T2DM (type 2 diabetes mellitus) Uterine cancer S/P RICHARD BSO WITH RADIATION Weakness Surgical History Difficult airway for intubation History of cardiac catheterization NO STENTS History of cataract surgery BILATERAL History of cholecystectomy History of colonoscopy History of esophagogastroduodenoscopy (EGD) History of knee surgery ARTHROSCOPY LEFT KNEE History of mastectomy BILATERAL History of total abdominal hysterectomy BSO Family History Mother Diabetes Myocardial infarction Hypertension Family history of diabetes mellitus Brother Family history of diabetes mellitus Denies family history of Ovarian cancer Prostate cancer Breast cancer Colorectal cancer Social History Smoking Status: Never smoker Age Started Using Tobacco: 15; Age Quit Using Tobacco: 30; packs per day: 1; Second Hand Exposure: No; Hx Alcohol Use: No Hx Substance Use: No Preferred Language: [place] Communication Ability: Effective Visual Impairment: Partially Limited Hearing Ability: Hard of Hearing Composition Instructor Required: No Beliefs That Will Affect Care: None marital status: / Current Living Situation: Personal Care Facility Current Living Situation Comment: [facility] in [place] current occupational status: retired Feels Safe at Home: Yes Childhood Exposure to Second-Hand Smoke: No Dental Care, Regularly: Yes Physical Activity Frequency: Does not Exercise Seatbelt Use: always Sunscreen Use: Yes Assistive Devices: BiPap Review of Systems A total of 10 systems reviewed and were otherwise negative Physical Exam Vital Signs Vital Signs - 24 hr 05/19/21 20:25 05/19/21 20:36 05/19/21 22:00 Temperature 36.5 C Temperature Source Oral Pulse Rate 65 Pulse Rate [Left Apical] 65 61 Pulse Rhythm Regular Pulse Rhythm [Left Apical] Regular Regular Pulse Strength Normal Pulse Strength [Left Apical] Normal Normal Respiratory Rate 18 20 18 Respiratory Effort / Characteristics Non-Labored Non-Labored Non-Labored Respiratory Depth Normal Normal Normal Respiratory Pattern Regular Regular Blood Pressure 144/74 H Blood Pressure Mean 97 Blood Pressure Position Lying Pulse Oximetry 96 97 96 Oxygen Delivery Method Room Air Room Air Room Air Oxygen Flow Rate 0 Sepsis Recent Fever Within 48 Hours No Sepsis New/Unexplained Change in Mental Status No Sepsis Action Taken by Nursing No Action Required Physical Exam GENERAL: She is oriented to person, place, and time. She appears well-developed and well-nourished. She does not appear distressed. HENT: Exam performed. -Head: Normocephalic and atraumatic. -Right Ear: External ear normal. No mastoid tenderness. -Left Ear: External ear normal. No mastoid tenderness. -Mouth/Throat: The oropharynx is clear and moist. No trismus in the jaw. No dental abscesses or uvula swelling. No oropharyngeal exudate or tonsillar abscesses. EYES: Conjunctivae and EOM are normal. Pupils are equal, round, and reactive to light. Right eye exhibits no discharge. Left eye exhibits no discharge. No scleral icterus. NECK: Normal range of motion. Neck supple. No JVD present. No spinous process tenderness present. No carotid bruit present. No rigidity. No tracheal deviation and normal range of motion present. No Brudzinski's sign and no Kernig's sign noted. CV: Normal rate, regular rhythm, normal heart sounds and intact distal pulses. There is no peripheral edema. Palpable radial pulses bue. PULM/CHEST: Effort normal and breath sounds normal. No respiratory distress. No stridor. She has no wheezes. She has no rales. -Chest Wall: She exhibits no tenderness. ABD: The abdomen is soft. Bowel sounds are normal. She has no distension. No mass is present. There is no tenderness. There is no rebound, no guarding, no Benavidez's sign and no tenderness at McBurney's point. Rovsig negative MUSC/SKEL: Normal range of motion. There is no peripheral edema, tenderness or deformity. LYMPH: No cervical adenopathy. NEURO: She is alert and oriented to person, place, and time. She has normal strength. No cranial nerve deficit or sensory deficit. Coordination and gait normal. GCS eye subscore is 4. GCS verbal subscore is 5. GCS motor subscore is 6. Cerebellar tests wnl. SKIN: Skin is warm and dry. She is not diaphoretic. PSYCH: She has a normal mood and affect. Behavior is normal. Judgment and thought content normal. Course Course 2009: The patient was evaluated in room D6. A complete history and physical exam was performed Cardiac monitoring: An order was placed for continuous cardiac monitoring. The monitor shows a rate of 70 with sinus rhythm 2130: Vital signs stable. Labs and imaging within normal limits. Patient will be admitted to the [facility] Hospitalist service for chest pain rule out ACS. Dr. Chau's team notified. Administered Medications Aztreonam 1,000 mg/ Dextrose 110 mls @ 100 mls/hr IV Q8H [facility]; Protocol Stop: 05/29/21 23:03 Last Admin: 05/19/21 23:56 Dose: 100 mls/hr Documented by: [id number] Discontinued Medications Aspirin (Aspirin Chew 324 Mg) 324 mg PO NOW STA Stop: 05/19/21 20:17 Last Admin: 05/19/21 20:35 Dose: 324 mg Documented by: [id number] Medical Decision Making Laboratory Data Result diagrams: 05/19/21 20:31 05/19/21 20:31 Labs: Lab Results 05/19/21 05/19/21 05/19/21 Range/Units 20:31 20:31 20:31 WBC 6.53 (4.8-10.8) K/uL RBC 4.83 (4.2-5.4) M/uL Hgb 11.8 L (12.0-16.0) g/dL Hct 37.9 (37-47) % MCV 78.5 L (80-100) fL MCH 24.4 L (25-34) pg MCHC 31.1 L (32-36) g/dL RDW Std Deviation 42.6 (36.4-46.3) fL RDW Coeff of Tim 14.9 H (11.5-14.5) % Plt Count 106 L (130-400) K/uL MPV 9.0 (7.4-10.4) fL Immature Gran % (Auto) 0.2 % Neut % (Auto) 73.2 % Lymph % (Auto) 18.7 % Hand % (Auto) 6.4 % Eos % (Auto) 1.2 % Baso % (Auto) 0.3 % Neut # (Auto) 4.78 (1.4-6.5) K/uL Lymph # (Auto) 1.22 (1.2-3.4) K/uL Hand # (Auto) 0.42 (0.11-0.59) K/uL Eos # (Auto) 0.08 (0-0.5) K/uL Baso # (Auto) 0.02 (0-0.2) K/uL Immature Gran # (Auto) 0.01 (0.00-0.02) K/uL PT 11.7 (9.0-12.0) Seconds INR 1.2 H (0.9-1.1) APTT 24.4 (21.0-31.0) Seconds PTT Ratio 0.9 D-Dimer 390 (0-500) ug/L FEU Sodium 140 (136-145) mmol/L Potassium 4.3 (3.5-5.1) mmol/L Chloride 103 (98-107) mmol/L Carbon Dioxide 31 (21-32) mmol/L Anion Gap 6 (3-11) BUN 34 H (6-23) mg/dl Creatinine 1.33 H (0.6-1.2) mg/dl Est Cr Clr Drug Dosing 38.5 ml/min Est GFR ( Amer) 43.6 ml/min Est GFR (Non-Af Amer) 37.7 ml/min BUN/Creatinine Ratio 25.6 H (10-20) Glucose 158 H (70-99(Fasting)) mg/dl Calcium 8.7 (8.5-10.1) mg/dl Troponin I 0.03 (0-0.04) ng/ml Lipase 28 (11-82) U/L SARS-CoV-2, RNA, NAAT (NEGATIVE) 05/19/21 Range/Units 20:35 WBC (4.8-10.8) K/uL RBC (4.2-5.4) M/uL Hgb (12.0-16.0) g/dL Hct (37-47) % MCV (80-100) fL MCH (25-34) pg MCHC (32-36) g/dL RDW Std Deviation (36.4-46.3) fL RDW Coeff of Tim (11.5-14.5) % Plt Count (130-400) K/uL MPV (7.4-10.4) fL Immature Gran % (Auto) % Neut % (Auto) % Lymph % (Auto) % Hand % (Auto) % Eos % (Auto) % Baso % (Auto) % Neut # (Auto) (1.4-6.5) K/uL Lymph # (Auto) (1.2-3.4) K/uL Hand # (Auto) (0.11-0.59) K/uL Eos # (Auto) (0-0.5) K/uL Baso # (Auto) (0-0.2) K/uL Immature Gran # (Auto) (0.00-0.02) K/uL PT (9.0-12.0) Seconds INR (0.9-1.1) APTT (21.0-31.0) Seconds PTT Ratio D-Dimer (0-500) ug/L FEU Sodium (136-145) mmol/L Potassium (3.5-5.1) mmol/L Chloride (98-107) mmol/L Carbon Dioxide (21-32) mmol/L Anion Gap (3-11) BUN (6-23) mg/dl Creatinine (0.6-1.2) mg/dl Est Cr Clr Drug Dosing ml/min Est GFR ( Amer) ml/min Est GFR (Non-Af Amer) ml/min BUN/Creatinine Ratio (10-20) Glucose (70-99(Fasting)) mg/dl Calcium (8.5-10.1) mg/dl Troponin I (0-0.04) ng/ml Lipase (11-82) U/L SARS-CoV-2, RNA, NAAT NEGATIVE (NEGATIVE) ECG Data Indication: chest pain Rate (beats per minute): 66 Rhythm: normal sinus Findings: no ST depression, no ST elevation or no prolonged QT Additional Comments: QRS 72 MDM Narrative Vital signs stable. Labs and imaging within normal limits. Patient will be admitted to the [facility] hospitalist service for chest pain rule out ACS. Dr. Chau's team notified. Impression & Plan Chest pain Discharge Plan Visit Data Chief Complaint: Weakness Stated Complaint: weakness Discharge Problem: Chest pain Patient Disposition: Being Evaluated by Hospitalist Forms Stand Alone Forms: My [facility] Prescriptions Prescriptions: No Action acetaminophen 500 mg tablet 1,000 mg PO Q6H MDD 3g PRN (Reason: fever or pain) Qty: 60 RF: 2 cholecalciferol (vitamin D3) [Vitamin D3] 125 mcg (5,000 unit) tablet 5,000 unit PO QAM Qty: 30 RF: 5 escitalopram oxalate 20 mg tablet 20 mg PO HS Qty: 30 RF: 5 pravastatin 40 mg tablet 40 mg PO Q48H Qty: 15 RF: 5 Lactaid Fast Act 9,000 unit tablet,chewable 9,000 unit PO QID PRN (Reason: lactose intolerance) Qty: 120 RF: 0 (DME) pen needle, diabetic [BD Ultra-Fine Short Pen Needle] 31 gauge x 5/16" needle See Rx Instructions .ROUTE .MEDSUPPLY Qty: 400 RF: 3 thiamine HCl (vitamin B1) 100 mg tablet 100 mg PO DAILY 30 Days Qty: 30 RF: 6 loperamide [Imodium A-D] 2 mg capsule 4 mg PO DIRECTED PRN (Reason: Diarrhea) Qty: 90 RF: 1 metoprolol succinate [Toprol XL] 50 mg tablet extended release 24 hr 50 mg PO QPM Qty: 90 RF: 1 epinephrine 0.3 mg/0.3 mL auto-injector 0.3 mg IM DIRECTED PRN (Reason: Anaphylaxis) Qty: 1 RF: 0 Tresiba FlexTouch U-100 100 unit/mL (3 mL) insulin pen 48 unit subcut QAM Qty: 15 RF: 0 clopidogrel [Plavix] 75 mg tablet 75 mg PO QAM RF: 0 (DME) lancets Misc See Rx Instructions .ROUTE .MEDSUPPLY Qty: 100 RF: 0 (DME) Dexcom G6 Sensor Device See Rx Instructions .ROUTE .MEDSUPPLY Qty: 3 RF: 0 (DME) Dexcom G6 Child Development Instructor Misc See Rx Instructions .ROUTE .MEDSUPPLY Qty: 1 RF: 0 (DME) Dexcom G6 Transmitter Device See Rx Instructions .ROUTE .MEDSUPPLY Qty: 1 RF: 0 ipratropium bromide 21 mcg (0.03 %) spray,non-aerosol 2 spray intranasal DAILY Qty: 30 RF: 2 diclofenac sodium 1 % gel 4 g topical QID PRN (Reason: Joint Pain) Qty: 100 RF: 1 gabapentin 400 mg capsule 400 mg PO TID 30 Days Qty: 90 RF: 5 vitamin B complex Tablet 1 tab PO DAILY Qty: 60 RF: 5 docusate sodium [Colace] 100 mg capsule 100 mg PO BID PRN (Reason: Constipation) RF: 0 melatonin 3 mg tablet 3 mg PO HS PRN (Reason: Insomnia) Qty: 30 RF: 5 nitroglycerin 0.4 mg tablet, sublingual 0.4 mg sublingual DIRECTED PRN (Reason: Chest Pain) RF: 0 albuterol sulfate [Ventolin HFA] 90 mcg/actuation HFA aerosol inhaler 1 puff INHALATION Q4H PRN (Reason: Wheezing) RF: 0 polyethylene glycol 3350 [Miralax] 17 gram/dose powder 17 g PO DAILY PRN (Reason: constipation) Qty: 119 RF: 0 diphenoxylate-atropine [Lomotil] 2.5-0.025 mg tablet 1 tab PO BID PRN (Reason: diarrhea) Qty: 10 RF: 0 PreserVision AREDS-2 250-90-40-1 mg Capsule 1 tab PO BID RF: 0 pantoprazole 40 mg tablet,delayed release (DR/EC) 40 mg PO BIDM RF: 0 cyanocobalamin (vitamin B-12) [Vitamin B-12] 1,000 mcg Tablet 1,000 mcg PO DAILY RF: 0 loratadine [Claritin] 10 mg Tablet 10 mg PO DAILY PRN (Reason: allergies) RF: 0 diphenhydramine HCl [Benadryl Allergy] 25 mg tablet 25 mg PO DAILY PRN (Reason: itching) RF: 0 hydrocortisone 1 % cream 1 applic topical BID PRN (Reason: Itching) RF: 0 insulin aspart U-100 [Novolog Flexpen U-100 Insulin] 100 unit/mL (3 mL) insulin pen 16 unit SUBCUT UD RF: 0 meloxicam [Mobic] 7.5 mg Tablet 7.5 mg PO BID PRN (Reason: Pain) RF: 0 lidocaine [Salonpas (lidocaine)] 4 % Adhesive Patch,Medicated 2 patch TOPICAL DAILY PRN (Reason: Pain) RF: 0 nystatin 100,000 unit/gram Powder 1 applic TOPICAL BID PRN (Reason: irritation) RF: 0 Referrals Referrals: NATALIYA, [Primary Care Provider] -
[2021-05-20 00:28] LABS: Appearance Urine Clear (Clear); Bacteria Urine Automated Negative (Negative); Bilirubin Urine Negative (Negative); Blood Urine Negative (Negative); Color Urine Yellow; Glucose Urine UA Negative (Negative); Ketones Urine Negative (Negative); Leukocyte Esterase Urine 1+ (Negative); Nitrite Urine Negative (Negative); Protein Urine Negative (Negative); RBC Urine Automated 0-4 /hpf (0-4); Urobilinogen Urine Negative (Negative)
[2021-05-20] MEDS: MELATONIN 3 MG TAB PO PRN (01:29)
[2021-05-20] MEDS ORDERED: ALBUTEROL HFA 8 GM INHALER INH PRN (01:30)
[2021-05-20] MEDS ORDERED: DOCUSATE SODIUM 100 MG CAP PO PRN (01:30)
[2021-05-20] MEDS ORDERED: CARBOHYDRATES FOR HYPOGLYCEMIA PO PRN (01:30)
[2021-05-20] MEDS ORDERED: DEXTROSE 50% 50 ML SYRINGE IV PRN (01:30)
[2021-05-20] MEDS ORDERED: POLYETHYLENE (MIRALAX) 17 GM PACK PO PRN (01:30)
[2021-05-20] MEDS ORDERED: GLUCAGON FOR INJ 1 MG VIAL SQ PRN (01:30)
[2021-05-20] MEDS ORDERED: GLUCOSE 10 TABS/TUBE PO PRN (01:30)
[2021-05-20] MEDS ORDERED: GLUCOSE 40% GEL 15 GM TUBE PO PRN (01:30)
[2021-05-20] MEDS ORDERED: DICLOFENAC SOD 1% GEL 100 GM TUBE EXT PRN (01:30)
[2021-05-20] MEDS ORDERED: LORATADINE 10 MG TAB PO PRN (01:30)
[2021-05-20] MEDS ORDERED: NYSTATIN POWDER 15GM BTL EXT PRN (01:30)
[2021-05-20] MEDS ORDERED: ACETAMINOPHEN 325 MG TAB PO PRN (01:30)
[2021-05-20 02:26] LABS: Hematocrit (blood only) 35.6 % (37-47); Hemoglobin 11.1 g/dL (12.0-16.0); Mean Corpuscular Hemoglobin 24.3 pg (25-34); Mean Corpuscular Hgb Conc 31.2 g/dL (32-36); Mean Corpuscular Volume 78.1 fL (80-100); Mean Platelet Volume 9.4 fL (7.4-10.4); Platelet Count 106 K/uL (130-400); RDW Standard Deviation 42.4 fL (36.4-46.3); Red Blood Count 4.56 M/uL (4.2-5.4); White Blood Count 5.54 K/uL (4.8-10.8)
[2021-05-20 03:13] LABS: BUN Creatinine Ratio 30.7 (10-20); Calcium 8.3 mg/dl (8.5-10.1); Creatinine Clr Calc Pharmacy 44.9 ml/min; Est GFR (African American) 52.6 ml/min; Est GFR (Non-African American) 45.4 ml/min; Potassium 3.7 mmol/L (3.5-5.1)
[2021-05-20] MEDS: ENOXAPARIN INJ 40 MG/0.4 ML SYR SQ SCH ×2 (06:48→20:58)
[2021-05-20] MEDS: AZTREONAM 1,000 MG in DEXTROSE 5% 100 ML IV SCH ×3 (06:50→23:30)
[2021-05-20] MEDS ORDERED: GABAPENTIN 400 MG CAP PO SCH (09:00)
[2021-05-20] MEDS: INSULIN ASPART PER UNIT SC SCH ×4 (09:31→22:10)
[2021-05-20] MEDS: PANTOprazole 40 MG TAB PO SCH ×2 (09:31→16:45)
[2021-05-20] MEDS: CLOPIDOGREL BISULFATE 75 MG TAB PO SCH (09:31)
[2021-05-20] MEDS: INSULIN GLARGINE SOLOSTAR 100 UNITS/ML 3 ML PEN SC SCH ×2 (09:32→22:10)
--- NOTE | 2021-05-20 10:45 | XCELERA ---
[id number] [id number]
--- NOTE | 2021-05-20 13:36 | Hospitalist Progress Note ---
Date of Service May 20, 2021 Assessment & Plan (1) Generalized weakness: Plan: Unclear cause of this. Patient has many "allergies" and odd perceptions of her medications however her daughter assures me this is a significant change in her clinical state over the last week. Doubtful UTI since she received adequate treatment for this and UA was unremarkable on admission - will continue aztreonam until blood cultures at [address] head unremarkable Could consider LP however the patient has many non-specific symptoms. Given current abdominal pain on exam will get CT - will get this without contrast due to allergies and also to assess for ureterolithiasis B12 level, CPK level (patient on statin) Discontinue gabapentin and monitor for worsening neuropathy (2) UTI (urinary tract infection): Plan: Possible diagnosis see above (3) Chest pain: Plan: This no longer appears to be a big complaint of hers Serial troponins negative and TTE unremarkable (4) Anxiety: Plan: Continue Lexapro (5) Depression: Plan: Continue Lexapro (6) Severe obstructive sleep apnea: Plan: CPAP HS (7) T2DM (type 2 diabetes mellitus): Plan: HbA1C 6.8 Lantus 20 units BID Novolog: Goal BSG Range: Low 100 mg/dL, High 160 mg/dL Correction Factor: 20 mg/dL/unit Carbohydrate ratio = 8 g/unit BSGs ACHS if eating, q6h if npo (8) PAC (premature atrial contraction): (9) PVC (premature ventricular contraction): Plan: Code Status: DNR/DNI FEN: DM2, heart healthy diet DVT ppx: Lovenox BID Dispo: Med/Surg with Telemetry Admission and Anticipated Discharge Date Admission Date: May 19, 2021 Subjective The patient tells me she cannot wake up or talk to me, despite being awake and talking to me - she tells me to talk to her daughter. She feels she needs to cut back on her gabapentin and this is all because of an increase in gabapentin. She tells me Samira Dhruv increased her dose but on chart review the last note from Samira Dhruv was in October which certainly doesn't fit the timeline of getting worse over the last week (per her daughter). On discussion with her daughter she reports the patient was hypotensive and tachypneic at her dentist appointment on Sunday. She felt increasingly weak and sick over the last week. Slow progressive symptoms felt weak, sick. Slowly progressive symptoms this week. She was recently treated for a UTI. She gets frequent UTIs and the [place] get a UA+culture whenever she tells them she has symptoms although unclear what her symptoms were on this occasion. She was treated with ciprofloxacin. Baseline: vibrant, uses a walker after major back surgery, appears to be far off her baseline at the current time. Review of Systems Review of Systems: All systems reviewed & are unremarkable except as noted in Subjective Abdominal pain No constipation, diarrhea, melena, bright red blood in stool. Physical Exam Constitutional: well developed and + morbidly obese; + not well nourished and no acute distress Eyes: PERRL, conjunctivae normal, anicteric sclerae ENMT: external ear and nose normal, oropharynx normal Neck: trachea midline, no thyromegaly Respiratory: normal respiratory effort, lungs clear to auscultation Cardiovascular: RRR, no murmur, no edema Gastrointestinal (Abdomen): Inspection/Auscultation: normal bowel sounds Percussion/Palpation: + abdomen tender (RUQ and LLQ pain) and abdomen soft; no guarding and abdomen not rigid Musculoskeletal: no cyanosis or clubbing, extremities motor strength 5/5 Skin: no rashes, warm and dry Neurologic: moves all extremities and awake; no focal motor deficits and not confused Psychiatric: A+Ox3, euthymic affect Results & Data Results & Data ([facility]) Vital Signs (Past 12 Hours) Vital Signs Temp Pulse Resp BP Pulse Ox 05/20/21 11:40 61 20 159/84 H 96 05/20/21 08:00 36.7 C 64 17 147/96 H 97 05/20/21 04:45 64 17 179/67 H 95 05/20/21 02:52 74 15 167/65 H 95 PG Care Time/CCT Total # of Minutes Spent Total Time Spent with Patient: Total time spent is greater than 50% in coordination of care (as documented) at patient's floor/unit and/or counseling patient: Coding Level of Care Code 11911 Subseq Obs Care Lvl 3 Diagnoses Chest pain R07.9 Chest pain type: unspecified Generalized weakness R53.1 Anxiety F41.9 Depression F32.9 Severe obstructive sleep apnea G47.33 T2DM (type 2 diabetes mellitus) E11.9 UTI (urinary tract infection) N39.0 PAC (premature atrial contraction) I49.1 PVC (premature ventricular contraction) I49.3 (1) Chest pain Chest pain type: unspecified Qualified Code(s): R07.9 - Chest pain, unspecified
[2021-05-20 14:52] LABS: Magnesium 1.7 mg/dl (1.7-2.4); Phosphorus 3.8 mg/dl (2.5-4.9)
--- NOTE | 2021-05-20 15:25 | Electrocardiogram Report ---
Test Reason : Blood Pressure : / mmHG Vent. Rate : 066 BPM Atrial Rate : 066 BPM P-R Int : 154 ms QRS Dur : 072 ms QT Int : 440 ms P-R-T Axes : 064 059 048 degrees QTc Int : 461 ms Normal sinus rhythm Normal ECG When compared with ECG of 08-JAN-2020 11:13, No significant change was found Confirmed by Aubrey Guevara ([id number]) on 05/20/2021 3:25:39 PM Referred By: MEME Confirmed By:Aubrey Guevara
--- NOTE | 2021-05-20 18:07 | CT Scan Report ---
ABDOMEN AND PELVIS CT WITHOUT CONTRAST CT DOSE: 851.17 mGycm HISTORY: Acute right upper quadrant abdominal pain RUQ, LLQ pain ?ureterolith, geronimo, diverticultiti s TECHNIQUE: Multiaxial CT images of the abdomen and pelvis were performed without contrast. A dose lo wering technique was utilized adhering to the principles of ALARA. COMPARISON STUDY: CT abdomen and pelvis 01/07/2020 FINDINGS: Coronary artery calcifications. Mild bibasilar bronchial wall thickening. No pneumatosis or pneumoper itoneum. Calcified granulomata of the spleen which is enlarged measuring up to 14 cm. Mild to moderat e pancreatic atrophy. Unremarkable adrenal glands. Cholecystectomy. The unenhanced liver is within no rmal limits. 3.4 cm left renal cyst. No renal calculi or hydronephrosis. Unremarkable urinary bladder . Uterus is either surgically absent or atrophic. Atherosclerosis of the abdominal aorta and branch v essels. No adenopathy. No bowel obstruction or bowel wall thickening. There is unchanged mild stranding of the mid mesentery . Mild fecal retention. Normal appendix. Additional injection sites of the anterior lower abdominal w all. Unremarkable soft tissues. No acute fracture. Thoracolumbar fusion hardware redemonstrated. No e vidence of hardware complication. Mild lumbar levoscoliosis. IMPRESSION: 1. No acute intra-abdominal or intrapelvic abnormality. 2. Mild fecal retention. 3. Mild splenomegaly. 4. Cholecystectomy. 5. Chronic findings as above. ACT 112: Negative or not required by law. The above report was generated using voice recognition software. It may contain grammatical, syntax o r spelling errors. Electronically signed by: Frandy Pitts M.D. 05/20/2021 6:05 PM
[2021-05-20] MEDS: POLYETHYLENE (MIRALAX) 17 GM PACK PO SCH (20:59)
[2021-05-20] MEDS ORDERED: METOPROLOL SUCC 50MG EXT REL TAB PO SCH (21:00)
[2021-05-20] MEDS ORDERED: PRAVASTATIN SOD 40 MG TAB PO SCH (21:00)
[2021-05-20] MEDS ORDERED: ESCITALOPRAM OXALATE 20 MG TAB PO SCH (21:00)
[2021-05-21] MEDS: MELATONIN 3 MG TAB PO PRN (00:57)
--- NOTE | 2021-05-21 02:20 | Billing Data ---
Date of Service May 21, 2021 Coding Level of Care Code INT OBSERVATION CARE 70M LVL 3
[2021-05-21] MEDS: ENOXAPARIN INJ 40 MG/0.4 ML SYR SQ SCH (06:02)
[2021-05-21 07:20] LABS: Hematocrit (blood only) 37.9 % (37-47); Mean Corpuscular Hemoglobin 24.5 pg (25-34); Mean Corpuscular Hgb Conc 31.7 g/dL (32-36); Mean Corpuscular Volume 77.3 fL (80-100); RDW Coefficient of Variation 14.8 % (11.5-14.5); RDW Standard Deviation 41.5 fL (36.4-46.3); White Blood Count 5.28 K/uL (4.8-10.8)
[2021-05-21 07:42] LABS: Albumin Globulin Ratio 1.1 (0.9-2); Albumin Level 3.5 gm/dl (3.4-5.0); BUN Creatinine Ratio 23.4 (10-20); Bilirubin,Total 0.7 mg/dl (0.2-1.0); Calcium 8.8 mg/dl (8.5-10.1); Est GFR (African American) 54.3 ml/min; Est GFR (Non-African American) 46.9 ml/min; Globulin 3.2 gm/dl (2.5-4.0); Potassium 3.9 mmol/L (3.5-5.1); Total Protein 6.7 gm/dl (6.0-8.3)
[2021-05-21 07:53] LABS: Mean Platelet Volume 8.8 fL (7.4-10.4); Platelet Count 92 K/uL (130-400)
[2021-05-21 07:54] LABS: Basophils # (auto) 0.02 K/uL (0-0.2); Basophils % (auto) 0.4 %; Eosinophils # (auto) 0.06 K/uL (0-0.5); Eosinophils % (auto) 1.1 %; Lymphocytes % (auto) 26.5 %; Monocytes # (auto) 0.31 K/uL (0.11-0.59); Monocytes % (auto) 5.9 %; Neutrophils # (auto) 3.49 K/uL (1.4-6.5); Neutrophils % (auto) 66.1 %; Platelet Estimate Decreased (Normal)
[2021-05-21] MEDS: CLOPIDOGREL BISULFATE 75 MG TAB PO SCH (09:08)
[2021-05-21] MEDS: PANTOprazole 40 MG TAB PO SCH (09:08)
[2021-05-21] MEDS: POLYETHYLENE (MIRALAX) 17 GM PACK PO SCH (09:09)
[2021-05-21] MEDS: INSULIN GLARGINE SOLOSTAR 100 UNITS/ML 3 ML PEN SC SCH (09:13)
[2021-05-21] MEDS: INSULIN ASPART PER UNIT SC SCH ×2 (09:14→12:04)
[2021-05-21] MEDS: AZTREONAM 1,000 MG in DEXTROSE 5% 100 ML IV SCH (09:25)
--- NOTE | 2021-05-21 12:23 | Discharge Summary ---
Date of Service May 21, 2021 Admission HPI Per Admitting Provider 80 yo F Hx CVA, CKD, DM2, anxiety, depression, CAMRON/OHS, GERD presented to the ER for several days of worsening generalized weakness and palpitations/chest pressure. She also reports that she was recently diagnosed with a UTI (pelvic pressure, hematuria, urinary frequency) several days ago and has been on Cipro however she continues to have the same symptoms. Her UCx from this current infection was pansensitive (save for Macrobid). Lastly, she reports that her gabapentin was increased an unknown amount of time ago and perhaps her weakness is associated with that. In the ER she was noted to have normal vital signs, labwork notable for creatinine 1.33 (baseline 1.0-1.3) with elevated BUN/Cr ratio, troponin detectable at 0.03, COVID-[address] Head with previously noted meningioma, otherwise no acute pathology. CXR without evidence of pneumonia or fluid overload. EKG normal sinus rhythm. Principal Diagnosis Generalized weakness/lethargy suspected secondary to medication effect Discharge Exam GENERAL: 80 yo obese elderly WF. NAD. LUNGS: Clear to auscultation bilaterally. No accessory muscle use. No W/R/R. CARDIOVASCULAR: Regular rate and rhythm. No M/G/R. No JVD. ABDOMEN: Soft, non-tender and non-distended. BS normal x 4 quad. EXTREMITIES: No edema. Non-tender. Peripheral pulses +2/4. NEUROLOGIC: A&O x3. PSYCHIATRIC: Cooperative. Appropriate mood and affect. SKIN: Warm, dry, intact. No rashes or lesions. Discharge Data Allergies Allergy/AdvReac Type Severity Reaction Status Date / Time Bactrim Allergy Severe THROAT Verified 05/14/15 15:22 CLOSED celecoxib [From Celebrex] Allergy Severe CAUSED Verified 01/11/21 13:23 STROKE meperidine Allergy Severe almost Verified 05/19/21 21:20 "closed throat" midodrine Allergy Severe "almost Verified 01/11/21 13:23 closed throat" Penicillins Allergy Severe ANAPHYLAXIS Verified 01/11/21 13:23 sulfamethoxazole Allergy Severe THROAT Verified 01/11/21 13:23 CLOSED trimethoprim Allergy Severe THROAT Verified 01/11/21 13:23 CLOSED diphenoxylate Allergy Intermediate Unknown Verified 01/11/21 13:23 metronidazole [From Flagyl] Allergy Intermediate Hives Verified 01/11/21 13:23 DENILSON Inhibitors Allergy Unknown unknown to Verified 01/11/21 13:23 pt atropine Allergy Unknown Unknown Verified 01/11/21 13:23 carvedilol Allergy Unknown Unknown Verified 01/11/21 13:23 clonazepam [From Klonopin] Allergy Unknown Unknown Verified 01/11/21 13:23 doxycycline Allergy Unknown Unknown Verified 05/19/21 21:20 furosemide [From Lasix] Allergy Unknown Unknown Verified 05/19/21 21:20 Histamine H2 Inhibitors Allergy Unknown unknown to Verified 01/11/21 13:23 pt Iodinated Contrast Media Allergy Unknown JULY 2017 Verified 01/11/21 13:23 [facility] -- TOLERATED WITH SLOW INFUSION PER PATIENT nitrofurantoin Allergy Unknown Unknown Verified 05/19/21 21:20 phenazopyridine Allergy Unknown Unknown Verified 05/19/21 21:20 ranitidine Allergy Unknown Unknown Verified 01/11/21 13:23 repaglinide Allergy Unknown Unknown Verified 01/11/21 13:23 rosiglitazone Allergy Unknown Unknown Verified 01/11/21 13:23 tolterodine [From Detrol] Allergy Unknown Unknown Verified 01/11/21 13:23 cantaloupe Allergy . Verified 01/11/21 13:23 melon Allergy . Verified 01/11/21 13:23 prednisone Allergy . Verified 01/11/21 13:23 watermelon Allergy . Verified 01/11/21 13:23 citalopram [From Celexa] AdvReac Severe . Verified 01/11/21 13:23 glyburide AdvReac Intermediate SEVERE Verified 01/11/21 13:23 ABDOMINAL PAIN metformin AdvReac Intermediate SEVERE Verified 01/11/21 13:23 ABDOMINAL PAIN oxycodone AdvReac Intermediate SEVERE Verified 01/11/21 13:23 WITHDRAWAL SYMPTOMS WHEN TRYING TO STOP TAKING paroxetine AdvReac Intermediate DID NOT Verified 01/11/21 13:23 HELP temazepam AdvReac Intermediate DID NOT Verified 01/11/21 13:23 HELP tramadol AdvReac Intermediate Vomiting Verified 01/11/21 13:23 diazepam AdvReac Mild SEDATION Verified 01/11/21 13:23 LASTING TOO LONG meloxicam [From Mobic] AdvReac Mild SICK TO Verified 01/11/21 13:23 STOMACH albuterol AdvReac Unknown UNK Verified 01/11/21 13:23 carbamazepine AdvReac Unknown Unknown Verified 01/11/21 13:23 ibuprofen AdvReac Unknown Unknown Verified 05/19/21 21:20 lisinopril AdvReac Unknown UNK Verified 01/11/21 13:23 mirtazapine AdvReac Unknown Unknown Verified 01/11/21 13:23 olanzapine AdvReac Unknown Unknown Verified 01/11/21 13:23 rofecoxib AdvReac Unknown Unknown Verified 01/11/21 13:23 valproic acid AdvReac Unknown Unknown Verified 05/19/21 21:20 Consultations 05/19/21 21:31 ED Decision to Admit Stat Procedures Performed None Ordered Studies Chest X-Ray 05/19/21 20:17 SINGLE VIEW CHEST CLINICAL HISTORY: Atypical chest pain. FINDINGS: 2 AP, portable, upright chest radiographs are compared to study dated 12/16/2019 and correlated with chest CT dated 01/08/2020. The examination is degraded by portable technique and apical lordotic positioning. The heart is top normal for projection noting atherosclerotic calcification of the thoracic aorta. Chronic interstitial thickening is similar to previous. There is bibasilar scarring/atelectasis. No airspace consolidation or large pleural effusion is identified. No pneumothorax is seen. The skeletal structures are osteopenic. The bony thorax is grossly intact. Arthritic change is noted in the shoulders and thoracic spine. IMPRESSION: No active disease in the chest. ACT 112: Negative or not required by law. Electronically signed by: Joey Patterson M.D. 05/19/2021 8:[address] 05/19/21 20:18 CT SCAN OF THE BRAIN WITHOUT IV CONTRAST CLINICAL HISTORY: Headache. COMPARISON STUDY: CT of the brain dated 02/08/2019. TECHNIQUE: Unenhanced axial CT scan of the brain is performed from the vertex to the skull base. A dose lowering technique was utilized adhering to the p rinciples of ALARA. CT DOSE: 884.08 mGy.cm FINDINGS: Brain parenchyma: There are age-related involutional changes noting moderate subcortical and periventricular microangiopathic change. There is no hemorrhage, mass effect, or evidence of acute territorial ischemia by CT criteria. Fregoso- white matter differentiation is preserved. No extra-axial fluid collection is seen. A 1.6 cm calcified extra-axial lesion along the right temporal convexity is unchanged and typical for a meningioma. Ventricles, sulci, cisterns: Prominent secondary to involutional change. Intracranial vasculature: There is atherosclerotic calcification of the cavernous carotid and vertebral arteries. Calvarium: Unremarkable. Sinuses and mastoids: The paranasal sinuses are clear. The mastoid air cells are well pneumatized. Orbits: The bony orbits are grossly intact. There are bilateral ocular lens implants. IMPRESSION: 1. There is no hemorrhage, mass effect, or evidence of acute territorial ischemi a by CT criteria. 2. A calcified meningioma along the right convexity is unchanged. ACT 112: Negative or not required by law. Electronically signed by: Joey Patterson M.D. 05/19/2021 8:57 PM Abdomen/Pelvis CT 05/20/21 14:[address] WITHOUT CONTRAST CT DOSE: 851.17 mGycm HISTORY: Acute right upper quadrant abdominal pain RUQ, LLQ pain ?ureterolith, geronimo, diverticultitis TECHNIQUE: Multiaxial CT images of the abdomen and pelvis were performed without contrast. A dose lowering technique was utilized adhering to the principles of ALARA. COMPARISON STUDY: CT abdomen and pelvis 01/07/2020 FINDINGS: Coronary artery calcifications. Mild bibasilar bronchial wall thickening. No pneumatosis or pneumoperitoneum. Calcified granulomata of the spleen which is enlarged measuring up to 14 cm. Mild to moderate pancreatic atrophy. Unremarkable adrenal glands. Cholecystectomy. The unenhanced liver is within normal limits. 3.4 cm left renal cyst. No renal calculi or hydronephrosis. Unremarkable urinary bladder. Uterus is either surgically absent or atrophic. Atherosclerosis of the abdominal aorta and branch vessels. No adenopathy. No bowel obstruction or bowel wall thickening. There is unchanged mild stranding of the mid mesentery. Mild fecal retention. Normal appendix. Additional injection sites of the anterior lower abdominal wall. Unremarkable soft tissues. No acute fracture. Thoracolumbar fusion hardware redemonstrated. No evidence of hardware complication. Mild lumbar levoscoliosis. IMPRESSION: 1. No acute intra-abdominal or intrapelvic abnormality. 2. Mild fecal retention. 3. Mild splenomegaly. 4. Cholecystectomy. 5. Chronic findings as above. ACT 112: Negative or not required by law. The above report was generated using voice recognition software. It may contain grammatical, syntax or spelling errors. Electronically signed by: Frandy Pitts M.D. 05/20/2021 6:05 PM Hospital Course (1) Generalized weakness: Unclear cause of this. Patient has many "allergies" and odd perceptions of her medications however her daughter assures me this is a significant change in her clinical state over the last week. Doubtful UTI since she received adequate treatment for this and UA was unremarkable on admission, she was placed on empiric Aztreonam until blood cultures came back @ [address] head unremarkable Could consider LP however the patient has many non-specific symptoms and this was felt to not be warranted B12 level, CPK level (patient on statin)--both of which were well WNL Blood cultures at this time are negative for growth Her gabapentin was stopped; however, pt has significant c/o neuropathy, plan to resume at lower dose (2) UTI (urinary tract infection): s/p treatment with Cipro as outpatient--repeat UA in ED on 05/20 sig for 1+ leuk esterase, 5-10 wbc, but also 10-20 epithelial cells, likely dirty specimen. No culture obtained. Received Aztreonam upon admission empirically until blood cultures came back which thus far have no growth (3) Chest pain: This no longer appears to be a big complaint of hers Serial troponins negative and TTE unremarkable (4) Anxiety: Continue Lexapro (5) Depression: Continue Lexapro Could consider changing from Lexapro to Duloxetine for added neuropathy control (6) Severe obstructive sleep apnea: CPAP HS (7) T2DM (type 2 diabetes mellitus): HbA1C 6.8 Home regimen placed on hold during hospitalization and put on the following regimen: Lantus 20 units BID Novolog: Goal BSG Range: Low 100 mg/dL, High 160 mg/dL Correction Factor: 20 mg/dL/unit Carbohydrate ratio = 8 g/unit BSGs ACHS if eating, q6h if npo Upon d/c can resume home dose At this time, pt is medically and hemodynamically stable for discharge back to [facility] today. Did call and update patient's daughter, however, she was in the ER due to an illness so provided update to her son-in-law. Will resume Gabapentin but put her on a much lower dose of 100mg TID and this can be slowly uptitrated by either her PCP or Neurology. Uncertain exactly what her prior Gabapentin dose was; however, could consider leaving on a lower dose and changing her Lexapro to Cymbalta as noted OR could alternatively consider changing to Lyrica (neither of which pt has a listed allergy to). Again, this can be tailored further by her PCP and/or neurologist. She was seen by PT today and felt to be safe to return to [facility]. Pt was also seen by Dr. Feliciano prior to discharge. Total Time Total Time Spent Total Time Spent (In Minutes): <30 minutes Discharge Plan Discharge Items Patient Disposition: [facility] Reason For Visit: CHEST PAIN RULE OUT, UTI, weakness Discharge Diagnosis: Weakness and lethargy could be related to medication (increased dose of Gabapentin) Activity: Resume your previous activity Non-emergency contact: Primary Care Provider Call non-emergency contact if: you have any medication questions and your symptoms worsen Follow-up/Referrals: MEME, [Primary Care Provider] - Diet: Carb Consistent or DM2 Addtl Attending Provider Instructions: * You were hospitalized due to concern for your lethargy which was felt to be related to your increased dose of Gabapentin * During your stay, you underwent a head CT as well as an abdominal CT both of which were unremarkable. * You were recently treated for a urinary tract infection and the repeat urine study here showed that infection to have resolved. * We will plan to resume your Gabapentin at a much lower dose and further adjustment can be made by your primary care doctor or your neurologist. * I would advise you to follow up with your family doctor within 72 hours of discharge. * Therapy walked you during your stay and you were felt to be safe to return to personal care. Pending Studies at Discharge: No Stand-Alone Forms: My [facility] Chinese Online, Smoking Cessation Skilled Items Patient informed of condition?: Yes DNR: Yes Discharge Level of Care: Other Communicable Disease: No Discharge Prognosis: Improving Lines: None Urinary Catheter: No Medications and DC Order Prescriptions: New gabapentin 100 mg capsule 100 mg PO TID Qty: 90 RF: 0 Continued acetaminophen 500 mg tablet 1,000 mg PO Q6H MDD 3g PRN (Reason: fever or pain) Qty: 60 RF: 2 cholecalciferol (vitamin D3) [Vitamin D3] 125 mcg (5,000 unit) tablet 5,000 unit PO QAM Qty: 30 RF: 5 escitalopram oxalate 20 mg tablet 20 mg PO HS Qty: 30 RF: 5 pravastatin 40 mg tablet 40 mg PO Q48H Qty: 15 RF: 5 Lactaid Fast Act 9,000 unit tablet,chewable 9,000 unit PO QID PRN (Reason: lactose intolerance) Qty: 120 RF: 0 (DME) pen needle, diabetic [BD Ultra-Fine Short Pen Needle] 31 gauge x 5/16" needle See Rx Instructions .ROUTE .MEDSUPPLY Qty: 400 RF: 3 thiamine HCl (vitamin B1) 100 mg tablet 100 mg PO DAILY 30 Days Qty: 30 RF: 6 loperamide [Imodium A-D] 2 mg capsule 4 mg PO DIRECTED PRN (Reason: Diarrhea) Qty: 90 RF: 1 metoprolol succinate [Toprol XL] 50 mg tablet extended release 24 hr 50 mg PO QPM Qty: 90 RF: 1 epinephrine 0.3 mg/0.3 mL auto-injector 0.3 mg IM DIRECTED PRN (Reason: Anaphylaxis) Qty: 1 RF: 0 Tresiba FlexTouch U-100 100 unit/mL (3 mL) insulin pen 48 unit subcut QAM Qty: 15 RF: 0 clopidogrel [Plavix] 75 mg tablet 75 mg PO QAM RF: 0 (DME) lancets Misc See Rx Instructions .ROUTE .MEDSUPPLY Qty: 100 RF: 0 (DME) Dexcom G6 Sensor Device See Rx Instructions .ROUTE .MEDSUPPLY Qty: 3 RF: 0 (DME) Dexcom G6 Director Digital Misc See Rx Instructions .ROUTE .MEDSUPPLY Qty: 1 RF: 0 (DME) Dexcom G6 Transmitter Device See Rx Instructions .ROUTE .MEDSUPPLY Qty: 1 RF: 0 ipratropium bromide 21 mcg (0.03 %) spray,non-aerosol 2 spray intranasal DAILY Qty: 30 RF: 2 diclofenac sodium 1 % gel 4 g topical QID PRN (Reason: Joint Pain) Qty: 100 RF: 1 vitamin B complex Tablet 1 tab PO DAILY Qty: 60 RF: 5 docusate sodium [Colace] 100 mg capsule 100 mg PO BID PRN (Reason: Constipation) RF: 0 melatonin 3 mg tablet 3 mg PO HS PRN (Reason: Insomnia) Qty: 30 RF: 5 nitroglycerin 0.4 mg tablet, sublingual 0.4 mg sublingual DIRECTED PRN (Reason: Chest Pain) RF: 0 albuterol sulfate [Ventolin HFA] 90 mcg/actuation HFA aerosol inhaler 1 puff INHALATION Q4H PRN (Reason: Wheezing) RF: 0 polyethylene glycol 3350 [Miralax] 17 gram/dose powder 17 g PO DAILY PRN (Reason: constipation) Qty: 119 RF: 0 diphenoxylate-atropine [Lomotil] 2.5-0.025 mg tablet 1 tab PO BID PRN (Reason: diarrhea) Qty: 10 RF: 0 PreserVision AREDS-2 250-90-40-1 mg Capsule 1 tab PO BID RF: 0 pantoprazole 40 mg tablet,delayed release (DR/EC) 40 mg PO BIDM RF: 0 cyanocobalamin (vitamin B-12) [Vitamin B-12] 1,000 mcg Tablet 1,000 mcg PO DAILY RF: 0 loratadine [Claritin] 10 mg Tablet 10 mg PO DAILY PRN (Reason: allergies) RF: 0 diphenhydramine HCl [Benadryl Allergy] 25 mg tablet 25 mg PO DAILY PRN (Reason: itching) RF: 0 hydrocortisone 1 % cream 1 applic topical BID PRN (Reason: Itching) RF: 0 insulin aspart U-100 [Novolog Flexpen U-100 Insulin] 100 unit/mL (3 mL) insulin pen 16 unit SUBCUT UD RF: 0 meloxicam [Mobic] 7.5 mg Tablet 7.5 mg PO BID PRN (Reason: Pain) RF: 0 lidocaine [Salonpas (lidocaine)] 4 % Adhesive Patch,Medicated 2 patch TOPICAL DAILY PRN (Reason: Pain) RF: 0 nystatin 100,000 unit/gram Powder 1 applic TOPICAL BID PRN (Reason: irritation) RF: 0 Discontinued gabapentin 400 mg capsule 400 mg PO TID 30 Days Qty: 90 RF: 5 Discharge Orders: Discharge Order (Routine); Ordered 05/21/21 Ordered By: Philomena Elmore Admission Data Admit Date/Time: 05/19/21 23:04 Attending Provider: Dyllan Feliciano Admit Provider: Rigo Broderick Primary Care Provider: Martina VALENTINE Providers: Rigo Broderick Coding Level of Care Code 18354 OBS Care - Discharge Diagnoses Generalized weakness R53.1 UTI (urinary tract infection) N39.0 Chest pain R07.9 Chest pain type: unspecified Anxiety F41.9 Depression F32.9 Severe obstructive sleep apnea G47.33 T2DM (type 2 diabetes mellitus) E11.9
== END 2021-05-21 15:08 | disposition home or self-care (01) ==
LOC: ED 19:43 → EDINP 19:43 → SUATTDRO 23:04 → 2S 05-20 02:01

== ENCOUNTER 2022-01-24 22:25 | Inpatient (IN) ==
--- NOTE | 2022-01-24 23:21 | Emergency Department Note ---
History of Present Illness General Chief complaint: Foot Injury/Pain Time Seen by Provider: 01/24/22 22:52 History of Present Illness Maximum Pain Intensity: 10 81-year-old female presents emergency department with an onset at 6 PM of right foot pain described as a sharp lightening type pain that is intermittent in her toes. Patient states that she was at the doctor's office today and was doing fine. There is no injury to her foot. Patient states when she went to take her right shoe off she had increased pain and describes it as a sharp lightninglike pain that is rated as a 10 out of 10. Patient has taken Tylenol prior to arrival also given an ice pack to the foot. Patient states the pain is intermittent and sharp in nature is described as a lightening strike to the toes. Patient states that she has a history of decreased sensation in the bilateral lower extremities. Patient denies any swelling of her calf or pain in the right calf. Patient denies any radicular pain from her hip or back. There are no other mitigating or alleviating factors Home Medications Medication Instructions Recorded Confirmed Type docusate sodium 100 mg capsule 100 mg PO BID PRN Constipation 10/22/19 01/24/22 History (Colace) albuterol sulfate 90 mcg/actuation 1 puff inhalation Q4H PRN Wheezing 12/09/19 01/24/22 History aerosol inhaler (Ventolin HFA) polyethylene glycol 3350 17 17 g PO DAILY PRN constipation 01/13/20 01/24/22 Rx gram/dose oral powder (Miralax) #119 grams cholecalciferol (vitamin D3) 125 5,000 unit PO QAM #30 tabs 01/29/20 01/24/22 Rx mcg (5,000 unit) tablet (Vitamin D3) lancets #100 ea 03/03/20 01/24/22 History blood-glucose meter,continuous #1 ea 09/13/20 01/24/22 History (Dexcom G6 Sales Development Director misc) blood-glucose sensor (Dexcom G6 #3 ea 09/13/20 01/24/22 History Sensor device) blood-glucose transmitter (Dexcom #1 ea 09/13/20 01/24/22 History G6 Transmitter device) thiamine HCl (vitamin B1) 100 mg 100 mg PO DAILY 30 days #30 tabs 11/10/20 01/24/22 Rx tablet ipratropium bromide 21 mcg (0.03 2 spray intranasal DAILY #30 mL 01/11/21 01/24/22 Rx %) nasal spray metoprolol succinate 50 mg 50 mg PO QPM #90 tabs 04/29/21 01/24/22 Rx tablet,extended release 24 hr (Toprol XL) epinephrine 0.3 mg/0.3 mL 0.3 mg (0.3 mL) IM DIRECTED PRN 05/03/21 01/24/22 Rx injection, auto-injector Anaphylaxis #1 ea diphenhydramine HCl 25 mg tablet 25 mg PO DAILY PRN itching 05/19/21 01/24/22 History (Benadryl Allergy) hydrocortisone 1 % topical cream 1 applic topical BID PRN Itching 06/14/21 01/24/22 Rx #28.4 grams ondansetron HCl 4 mg tablet 4 mg PO Q6H PRN nausea and 07/07/21 01/24/22 Rx vomiting #30 tabs lactase 9,000 unit tablet (Lactaid 9,000 unit PO QID PRN Lactose 07/22/21 01/24/22 History Fast Act) Intolerance lidocaine 4 % topical patch 2 patch topical UD PRN Pain 07/22/21 01/24/22 History (Salonpas (lidocaine)) melatonin 3 mg disintegrating 3 mg PO HS PRN Insomnia 07/22/21 01/24/22 History tablet nitroglycerin 0.4 mg sublingual 0.4 mg sublingual DIRECTED PRN 07/25/21 01/24/22 Rx tablet Chest Pain #30 tabs oxybutynin chloride 5 mg tablet 5 mg PO TID PRN bladder spasms #90 07/25/21 01/24/22 Rx tabs acetaminophen 500 mg tablet 1,000 mg PO Q6H PRN mild pain/fever 07/28/21 01/24/22 History diphenoxylate-atropine 2.5 1 tab PO BID PRN Diarrhea 07/28/21 01/24/22 History mg-0.025 mg tablet (Lomotil) fluocinolone 0.01 % shampoo 30 ml topical 2XWK PRN scalp 08/02/21 01/24/22 Rx irritation #120 mL pen needle, diabetic 31 gauge x #100 ea 08/11/21 01/24/22 Rx 5/16" (BD Ultra-Fine Short Pen Needle) cyanocobalamin (vitamin B-12) 1,000 mcg PO DAILY #90 tabs 08/31/21 01/24/22 Rx 1,000 mcg tablet (Vitamin B-12) blood sugar diagnostic (OneTouch #200 ea 10/11/21 01/24/22 Rx Ultra Test strips) montelukast 10 mg tablet 10 mg PO QPM #90 tabs 10/19/21 01/24/22 Rx (Singulair) pantoprazole 40 mg tablet,delayed 40 mg PO BID #180 tabs 10/19/21 01/24/22 Rx release pravastatin 40 mg tablet 40 mg PO .EVERY 48 HOURS #90 tabs 10/19/21 01/24/22 Rx clopidogrel 75 mg tablet (Plavix) 75 mg PO QAM #90 tabs 11/16/21 01/24/22 Rx escitalopram oxalate 20 mg tablet 20 mg PO HS #90 tabs 11/16/21 01/24/22 Rx gabapentin 100 mg capsule See Rx Instructions PO .COMPLEX 01/13/22 01/24/22 Rx #360 caps loperamide 2 mg capsule 4 mg PO UD PRN Diarrhea #20 caps 01/16/22 01/24/22 Rx diclofenac sodium 1 % topical gel See Rx Instructions .Route 01/24/22 01/24/22 History .COMPLEX PRN JOINT PAIN insulin aspart U-100 100 unit/mL 2 unit subcut QDD 01/24/22 01/24/22 History (3 mL) subcutaneous pen (Novolog Flexpen U-100 Insulin aspart) Allergies Allergy/AdvReac Type Severity Reaction Status Date / Time cantaloupe Allergy Severe THROAT Verified 01/24/22 23:31 CLOSES celecoxib [From Celebrex] Allergy Severe CAUSED Verified 01/24/22 23:31 STROKE melon Allergy Severe THROAT Verified 01/24/22 23:31 CLOSES meperidine Allergy Severe almost Verified 01/24/22 23:31 "closed throat" midodrine Allergy Severe "almost Verified 01/24/22 23:31 closed throat" Penicillins Allergy Severe ANAPHYLAXIS Verified 01/24/22 23:31 sulfamethoxazole Allergy Severe THROAT Verified 01/24/22 23:31 CLOSED trimethoprim Allergy Severe THROAT Verified 01/24/22 23:31 CLOSED watermelon Allergy Severe THROAT Verified 01/24/22 23:31 CLOSES diphenoxylate Allergy Intermediate Unknown Verified 01/24/22 23:31 metronidazole [From Flagyl] Allergy Intermediate Hives Verified 01/24/22 23:31 DENILSON Inhibitors Allergy Unknown unknown to Verified 01/24/22 23:31 pt atropine Allergy Unknown Unknown Verified 01/24/22 23:31 carvedilol Allergy Unknown Unknown Verified 01/24/22 23:31 clonazepam [From Klonopin] Allergy Unknown Unknown Verified 01/24/22 23:31 doxycycline Allergy Unknown Unknown Verified 01/24/22 23:31 furosemide [From Lasix] Allergy Unknown Unknown Verified 01/24/22 23:31 Histamine H2 Inhibitors Allergy Unknown unknown to Verified 01/24/22 23:31 pt Iodinated Contrast Media Allergy Unknown JULY 2017 Verified 01/24/22 23:31 [facility] -- TOLERATED WITH SLOW INFUSION PER PATIENT nitrofurantoin Allergy Unknown Unknown Verified 01/24/22 23:31 phenazopyridine Allergy Unknown Unknown Verified 01/24/22 23:31 ranitidine Allergy Unknown Unknown Verified 01/24/22 23:31 repaglinide Allergy Unknown Unknown Verified 01/24/22 14:42 rosiglitazone Allergy Unknown Unknown Verified 01/24/22 23:31 tolterodine [From Detrol] Allergy Unknown Unknown Verified 01/24/22 14:42 ciprofloxacin [From Cipro] AdvReac Severe throat Verified 01/24/22 23:31 swelling citalopram [From Celexa] AdvReac Severe SEE COMMENT Verified 01/24/22 23:31 diazepam AdvReac Severe SEDATION Verified 01/24/22 23:31 LASTING TOO LONG prednisone AdvReac Severe BSG Verified 01/24/22 23:31 ELEVATED TO THE 500'S glyburide AdvReac Intermediate SEVERE Verified 01/24/22 23:31 ABDOMINAL PAIN meloxicam [From Mobic] AdvReac Intermediate SICK TO Verified 01/24/22 23:31 STOMACH metformin AdvReac Intermediate SEVERE Verified 01/24/22 23:31 ABDOMINAL PAIN oxycodone AdvReac Intermediate SEVERE Verified 01/24/22 23:31 WITHDRAWAL SYMPTOMS WHEN TRYING TO STOP TAKING paroxetine AdvReac Intermediate DID NOT Verified 01/24/22 23:31 HELP temazepam AdvReac Intermediate DID NOT Verified 01/24/22 23:31 HELP tramadol AdvReac Intermediate Vomiting Verified 01/24/22 23:31 albuterol AdvReac Unknown UNK Verified 01/24/22 23:31 carbamazepine AdvReac Unknown Unknown Verified 01/24/22 23:31 ibuprofen AdvReac Unknown Unknown Verified 01/24/22 23:31 lisinopril AdvReac Unknown UNK Verified 01/24/22 23:31 mirtazapine AdvReac Unknown Unknown Verified 01/24/22 23:31 olanzapine AdvReac Unknown Unknown Verified 01/24/22 23:31 rofecoxib AdvReac Unknown Unknown Verified 01/24/22 23:31 valproic acid AdvReac Unknown Unknown Verified 01/24/22 23:31 Past Med/Surg History Medical History Acute hypercapnic respiratory failure 03/2019 [facility]B (acute kidney injury) Anxiety and depression Asthma Per pulmonology 10/10/19, likely NOT asthma but chronic aspiration. Flovert and Spiriva discontinued, pt to use albuterol PRN Breast cancer UNSURE WHICH SIDE WAS CANCER. Chronic back pain Chronic neck pain Chronic pulmonary aspiration 2/2 h/o CVA, [facility]. Fusion of spine GERD (gastroesophageal reflux disease) History of benign brain tumor History of dysphagia ESOPHAGEAL DILATION IN PAST History of esophageal dilatation History of spinal stenosis History of stroke History of uterine cancer Endometrial biopsy revealed endometrioid adenocarcinoma. Status post total abdominal hysterectomy and bilateral salpingo-oophorectomy. Status post completion of radiation therapy with external beam radiation as well as 2 HDR treatments completed 08/15/2013 Hypertension Left pontine stroke 01/2019, on Plavix, following with [facility] neurology. Lymphedema of right arm CHRONIC, 2/2 MASTECTOMY Meningioma R temporal lobe, neurology monitoring. Microalbuminuria due to type 2 diabetes mellitus Microcytic anemia Morbid obesity Neuropathy Numb feet, painful radiculopathy in hands from cervical radiculopathy Obesity hypoventilation syndrome Osteoarthritis PAC (premature atrial contraction) PVC (premature ventricular contraction) Sensorineural hearing loss (SNHL) of both ears Severe obstructive sleep apnea CPAP, pt reports compliance T2DM (type 2 diabetes mellitus) Uterine cancer S/P RICHARD BSO WITH RADIATION Weakness Surgical History Difficult airway for intubation History of cardiac catheterization NO STENTS History of cataract surgery BILATERAL History of cholecystectomy History of colonoscopy History of esophagogastroduodenoscopy (EGD) History of knee surgery ARTHROSCOPY LEFT KNEE History of mastectomy BILATERAL History of total abdominal hysterectomy BSO Family History Mother Diabetes Myocardial infarction Hypertension Family history of diabetes mellitus Brother Family history of diabetes mellitus Sister Osteoporosis Arthritis Denies family history of Ovarian cancer Prostate cancer Breast cancer Colorectal cancer Social History Smoking Status: Former smoker Tobacco Type: Cigarettes Age Started Using Tobacco: 15; Age Quit Using Tobacco: 30; packs per day: 1; Second Hand Exposure: No; Hx Alcohol Use: No Hx Substance Use: No Preferred Language: Kyrgyz Communication Ability: Effective Visual Impairment: Limited Hearing Ability: Hard of Hearing Physician Relations Manager Required: No Beliefs That Will Affect Care: None marital status: / Current Living Situation: Personal Care Facility Current Living Situation Comment: Assisted living current occupational status: retired Feels Safe at Home: Yes Childhood Exposure to Second-Hand Smoke: No Diet Comment: low carb Dental Care, Regularly: Yes Physical Activity Frequency: Does not Exercise Seatbelt Use: always Sunscreen Use: Yes Assistive Devices: Walker and Wheelchair Review of Systems A total of 10 systems reviewed and were otherwise negative Constitutional: no fever Respiratory: no cough Cardiovascular: no chest pain Musculoskeletal: no back pain and no joint pain toe pain Integumentary: no skin ulcer Neurologic: + numbness; no loss of sensation Physical Exam Vital Signs Vital Signs - 24 hr 01/24/22 22:29 01/25/22 00:14 01/25/22 02:43 Temperature 37.1 C Temperature Source Oral Pulse Rate 61 Pulse Rate [Finger] 62 68 Pulse Rhythm Regular Pulse Rhythm [Finger] Regular Regular Pulse Strength Normal Pulse Strength [Finger] Normal Normal Respiratory Rate 18 20 20 Respiratory Effort / Characteristics Non-Labored Non-Labored Non-Labored Respiratory Depth Normal Normal Normal Respiratory Pattern Regular Regular Regular Blood Pressure 184/66 H Blood Pressure [Left Arm] 184/86 H 182/62 H Blood Pressure Mean 105 Blood Pressure Mean [Left Arm] 118 102 Blood Pressure Position Lying Blood Pressure Position [Left Arm] Lying Lying Pulse Oximetry 98 94 95 Oxygen Delivery Method Room Air Room Air Room Air Sepsis Recent Fever Within 48 Hours No Sepsis New/Unexplained Change in Mental Status N/A Sepsis Action Taken by Nursing No Action Required GENERAL: Patient is awake alert in no acute distress patient is resting comfortably and showing no signs of anxiety EYES: The conjunctivae are clear. The pupils are round and reactive. EARS, NOSE, MOUTH AND THROAT: The nose is without any evidence of any deformity. Mucous membranes are moist. Tongue is midline. NECK: The neck is nontender and supple. RESPIRATORY: Normal respiratory effort is noted there is no evidence of wheezing rhonchi or rales CARDIOVASCULAR: Regular rate and rhythm noted there no murmurs rubs or gallops normal S1 normal S2. GASTROINTESTINAL: The abdomen is soft. Abdomen is nontender. PELVIS: The Pelvis is stable. No tenderness to palpation is noted. BACK: No midline tenderness or or step-off noted range of motion in flexion extension as well as rotation no signs of muscle spasm noted MUSCULOSKELETAL/EXTREMITIES: There is no evidence of gross deformity full range of motion is noted in the hips and shoulders. Patient's right lower extremity exam reveals no calf tenderness no calf swelling patient has a DP pulse that is present patient has an ice pack on the midfoot and the patient's foot is cold distally at the toes. Patient has pain when I grab her toes. Patient's left foot is normal and warm. Patient has full range of motion of the right foot and right ankle and right knee and right hip. SKIN: There is no obvious evidence of any rash. There are no petechiae, pallor or cyanosis noted. NEUROLOGIC: Patient is awake alert and oriented x3 strength is symmetric Course Reevaluation(s) Reevaluation #1: Reevaluation-patient was initially given morphine and continued to complain of pain, patient was given Ativan and Decadron and on my examination at 3:05 AM, patient's feeling much improved Time: 03:06 Consultations Consultation #1: [facility] hospitalist for admission Time: 03:56 Administered Medications Discontinued Medications Dexamethasone 8 mg/ Syringe 2 mls @ 1 mls/min IV ONE ONE Stop: 01/25/22 02:22 Last Admin: 01/25/22 02:57 Dose: 1 mls/min Documented By: LRWhitney Lorazepam (Lorazepam 2 Mg/2 Ml Syr) 0.5 mg IV NOW STA; Protocol Stop: 01/25/22 02:22 Last Admin: 01/25/22 02:28 Dose: 0.5 mg Documented By: CHERI Morphine Sulfate (Morphine Sulfate 4 Mg/Ml 1 Ml Carp\\Vial) 4 mg IV NOW STA Stop: 01/25/22 01:38 Last Admin: 01/25/22 01:44 Dose: 4 mg Documented By: CHERI Medical Decision Making Medical Records Attestation: I reviewed the patient's medical records. Home Medications Current Medication List: was personally reviewed by me Laboratory Data Attestation: I reviewed the patient's lab results. Result diagrams: 01/25/22 00:00 01/25/22 00:00 Lab Results 01/25/22 01/25/22 01/25/22 Range/Units 00:00 00:00 00:00 WBC 6.36 (4.8-10.8) K/ul RBC 4.86 (3.93-5.22) M/uL Hgb 11.6 L (12.0-16.0) g/dl Hct 36.9 (34.1-44.9) % MCV 75.9 L (80.0-100.0) fL MCH 23.9 L (25.0-34.0) pg MCHC 31.4 L (32.0-36.0) g/dL RDW Std Deviation 39.5 (36.4-46.3) fL RDW Coeff of Tim 14.7 H (11.5-14.5) % Plt Count 126 L (130-400) K/uL MPV 9.5 (9.4-12.3) fL Immature Gran % (Auto) 0.3 % Neut % (Auto) 67.0 % Lymph % (Auto) 23.6 % [place] % (Auto) 7.2 % Eos % (Auto) 1.1 % Baso % (Auto) 0.8 % Neut # (Auto) 4.26 (1.4-6.5) K/uL Lymph # (Auto) 1.50 (1.2-3.4) K/uL [place] # (Auto) 0.46 (0.24-0.82) K/uL Eos # (Auto) 0.07 (0-0.50) K/uL Baso # (Auto) 0.05 (0-0.2) K/uL Immature Gran # (Auto) 0.02 (0.00-0.02) K/uL PT 12.5 H (9.0-12.0) Seconds INR 1.2 H (0.9-1.1) APTT 25.6 (21.0-31.0) Seconds PTT Ratio 0.9 Sodium 138 (136-145) mmol/L Potassium 3.8 (3.5-5.1) mmol/L Chloride 104 (98-107) mmol/L Carbon Dioxide 25 (21-32) mmol/L Anion Gap 9 (3-11) BUN 39 H (6-23) mg/dl Creatinine 1.47 H (0.6-1.2) mg/dl Est Cr Clr Drug Dosing 31.5 ml/min Est GFR ( Amer) 38.4 ml/min Est GFR (Non-Af Amer) 33.1 ml/min BUN/Creatinine Ratio 26.5 H (10-20) Glucose 82 (70-99(Fasting)) mg/dl Calcium 9.2 (8.5-10.1) mg/dl Total Bilirubin 0.6 (0.2-1.0) mg/dl AST 17 (13-39) U/L ALT 13 (7-52) U/L Alkaline Phosphatase 68 (34-104) U/L Total Protein 7.0 (6.0-8.3) gm/dl Albumin 3.8 (3.4-5.0) gm/dl Globulin 3.2 (2.5-4.0) gm/dl Albumin/Globulin Ratio 1.2 (0.9-2) Imaging Data Radiologist's Impression: Arterial ultrasound right lower extremity per radiology states mild to moderate atherosclerotic plaque is noted throughout the right lower extremity with multifocal triphasic flow and slightly decreased biphasic flow in the calf but without evidence of high-grade stenosis or occlusion MDM Narrative Medical decision making differential diagnosis includes neuropathy, radiculopathy, localized pain, vasospasm, arterial occlusion. Plan is to check labs, ultrasound Patient was evaluated for pain in my ultrasound arterial does not show any occlusion, labs appeared normal, patient was given multiple medications despite the fact that she has multiple allergies. I suspect that this is intractable neuropathic pain at this time. The case was discussed with the hospitalist at bedside at 3:50 AM for admission. Impression & Plan Intractable neuropathic pain of foot Discharge Plan Visit Data Chief Complaint: Foot Injury/Pain ED Provider: Antonio Gordon Discharge Problem: Intractable neuropathic pain of foot Patient Disposition: Being Evaluated by Hospitalist Forms Stand Alone Forms: My [facility] Prescriptions Prescriptions: No Action cholecalciferol (vitamin D3) [Vitamin D3] 125 mcg (5,000 unit) tablet 5,000 unit PO QAM Qty: 30 5RF thiamine HCl (vitamin B1) 100 mg tablet 100 mg PO DAILY 30 Days Qty: 30 6RF metoprolol succinate [Toprol XL] 50 mg tablet extended release 24 hr 50 mg PO QPM Qty: 90 1RF epinephrine 0.3 mg/0.3 mL auto-injector 0.3 mg IM DIRECTED PRN (Reason: Anaphylaxis) Qty: 1 0RF hydrocortisone 1 % cream 1 applic topical BID PRN (Reason: Itching) Qty: 28.4 2RF fluocinolone 0.01 % shampoo 30 ml topical 2XWK PRN (Reason: scalp irritation ) Qty: 120 1RF (DME) pen needle, diabetic [BD Ultra-Fine Short Pen Needle] 31 gauge x 5/16" needle See Rx Instructions .ROUTE .MEDSUPPLY Qty: 100 3RF Rx Instructions: Use as directed 1 per day with insulin injection cyanocobalamin (vitamin B-12) [Vitamin B-12] 1,000 mcg tablet 1,000 mcg PO DAILY Qty: 90 1RF (DME) OneTouch Ultra Test Strip See Rx Instructions .Route Qty: 200 2RF Rx Instructions: Test 4 times a day montelukast [Singulair] 10 mg tablet 10 mg PO QPM Qty: 90 3RF pantoprazole 40 mg tablet,delayed release (DR/EC) 40 mg PO BID Qty: 180 3RF pravastatin 40 mg tablet 40 mg PO .EVERY 48 HOURS Qty: 90 1RF clopidogrel [Plavix] 75 mg tablet 75 mg PO QAM Qty: 90 3RF escitalopram oxalate 20 mg tablet 20 mg PO HS Qty: 90 3RF gabapentin 100 mg capsule See Rx Instructions PO .COMPLEX Qty: 360 3RF Rx Instructions: orally; 100 mg with breakfast and lunch and 200 mg with dinner loperamide 2 mg capsule 4 mg PO UD PRN (Reason: Diarrhea) Qty: 20 0RF Rx Instructions: take 2 capsules after first diarrhea (DME) lancets Misc See Rx Instructions .ROUTE .MEDSUPPLY Qty: 100 Rx Instructions: As directed (DME) Dexcom G6 Sensor Device See Rx Instructions .ROUTE .MEDSUPPLY Qty: 3 Rx Instructions: As directed (DME) Dexcom G6 Sales Development Director Misc See Rx Instructions .ROUTE .MEDSUPPLY Qty: 1 Rx Instructions: As directed (DME) Dexcom G6 Transmitter Device See Rx Instructions .ROUTE .MEDSUPPLY Qty: 1 Rx Instructions: As directed ipratropium bromide 21 mcg (0.03 %) spray,non-aerosol 2 spray intranasal DAILY Qty: 30 2RF Rx Instructions: administer into each nostril oxybutynin chloride 5 mg tablet 5 mg PO TID PRN (Reason: bladder spasms) Qty: 90 3RF nitroglycerin 0.4 mg tablet, sublingual 0.4 mg sublingual DIRECTED PRN (Reason: Chest Pain) Qty: 30 0RF Rx Instructions: PLACE ONE TABLET UNDER THE TONGUE EVERY 5 MINUTES FOR UP TO 3 DOSES OVER 15 M INUTES IF NEEDED FOR CHEST PAIN ondansetron HCl 4 mg tablet 4 mg PO Q6H PRN (Reason: nausea and vomiting) Qty: 30 3RF docusate sodium [Colace] 100 mg capsule 100 mg PO BID PRN (Reason: Constipation) albuterol sulfate [Ventolin HFA] 90 mcg/actuation HFA aerosol inhaler 1 puff INHALATION Q4H PRN (Reason: Wheezing) polyethylene glycol 3350 [Miralax] 17 gram/dose powder 17 g PO DAILY PRN (Reason: constipation) Qty: 119 0RF insulin aspart U-100 [Novolog Flexpen U-100 Insulin] 100 unit/mL (3 mL) insulin pen 2 unit subcut QDD Rx Instructions: Take 2 units daily with evening meal. diclofenac sodium 1 % gel See Rx Instructions .ROUTE .COMPLEX PRN (Reason: JOINT PAIN) Rx Instructions: APPLY 4GM TOPICALLY TO SINGLE KNEE, ANKLE, AND FOOT (FOOT INCLUDES SOLE/TOES/TOP OF FOOT) FOUR TIMES DAILY NEEDED FOR JOINT PAIN diphenhydramine HCl [Benadryl Allergy] 25 mg tablet 25 mg PO DAILY PRN (Reason: itching) lidocaine [Salonpas (lidocaine)] 4 % Adhesive Patch,Medicated 2 patch TOPICAL UD PRN (Reason: Pain) Rx Instructions: apply 2 patches to back on for 12 hours off for 12 hours Lactaid Fast Act 9,000 unit Tablet 9,000 unit PO QID PRN (Reason: Lactose Intolerance) Rx Instructions: administer with meals and snacks melatonin 3 mg Tablet,Disintegrating 3 mg PO HS PRN (Reason: Insomnia) diphenoxylate-atropine [Lomotil] 2.5-0.025 mg Tablet 1 tab PO BID PRN (Reason: Diarrhea) acetaminophen 500 mg tablet 1,000 mg PO Q6H MDD 3g PRN (Reason: mild pain/fever) Referrals Referrals: Darwin Lugo III, CRNP [Primary Care Provider] -
[2022-01-25 00:23] LABS: Basophils # (auto) 0.05 K/uL (0-0.2); Basophils % (auto) 0.8 %; Eosinophils # (auto) 0.07 K/uL (0-0.50); Eosinophils % (auto) 1.1 %; Hematocrit (blood only) 36.9 % (34.1-44.9); Hemoglobin 11.6 g/dl (12.0-16.0); Immature Granulocytes # (auto) 0.02 K/uL (0.00-0.02); Immature Granulocytes % (auto) 0.3 %; Lymphocytes % (auto) 23.6 %; Mean Corpuscular Hemoglobin 23.9 pg (25.0-34.0); Mean Corpuscular Hgb Conc 31.4 g/dL (32.0-36.0); Mean Corpuscular Volume 75.9 fL (80.0-100.0); Mean Platelet Volume 9.5 fL (9.4-12.3); Monocytes # (auto) 0.46 K/uL (0.24-0.82); Monocytes % (auto) 7.2 %; Neutrophils # (auto) 4.26 K/uL (1.4-6.5); Platelet Count 126 K/uL (130-400); RDW Coefficient of Variation 14.7 % (11.5-14.5); RDW Standard Deviation 39.5 fL (36.4-46.3); Red Blood Count 4.86 M/uL (3.93-5.22); White Blood Count 6.36 K/ul (4.8-10.8)
[2022-01-25 00:41] LABS: INR 1.2 (0.9-1.1); Partial Thromboplastin Ratio 0.9; Partial Thromboplastin Time 25.6 Seconds (21.0-31.0); Prothrombin Time 12.5 Seconds (9.0-12.0)
[2022-01-25 00:44] LABS: Albumin Globulin Ratio 1.2 (0.9-2); Albumin Level 3.8 gm/dl (3.4-5.0); BUN Creatinine Ratio 26.5 (10-20); Bilirubin,Total 0.6 mg/dl (0.2-1.0); Calcium 9.2 mg/dl (8.5-10.1); Creatinine Clr Calc Pharmacy 31.5 ml/min; Est GFR (African American) 38.4 ml/min; Est GFR (Non-African American) 33.1 ml/min; Globulin 3.2 gm/dl (2.5-4.0); Potassium 3.8 mmol/L (3.5-5.1)
[2022-01-25] MEDS ORDERED: MoRPHine SULFATE 4 MG/ML 1 ML CARP\\VIAL IV STA (01:37)
[2022-01-25] MEDS ORDERED: dexAMETHasone 8 MG in SYRINGE 0 ML IV ONE (02:21)
[2022-01-25] MEDS ORDERED: LORazepam 1 MG/1 ML SYR IV STA (02:21)
--- NOTE | 2022-01-25 03:57 | History & Physical Report ---
Date of Service January 25, 2022 Assessment & Plan (1) Intractable neuropathic pain of foot: Plan: 81 y/o female w/ PMHx of foot neuropathy, HTN, CAMRON, asthma, GERD, HLD, chronic aspiration, anticoagulation use, neurogenic claudication from lumbar spinal stenosis, anxiety, ckd, DM2 who presents w/ intractable dorsal right foot sharp/lightning pain that started today. - symptoms and exam most consistent w/ neuropathic pain - patient has diabetic neuropathy, but current presentation is acute. considered compressive neuropathy. denies tick bites or recent GI illness - MRI could potentially evaluate for compressive neuropathy but would not alter management (avoid wearing ill-fitting boot) - instructed to no longer wear the boot that triggered her symptoms - provided 1 time dose of gabapentin 400 in the ED. hx of breathing concerns from high dosage of gabapentin in past reported by patient. Will uptitrate home dose of 3-400mg total daily slightly. Will order 200AM and 400 HS for now. - trialed capsacin cream without relief - avoid narcotic pain medications if possible (2) T2DM (type 2 diabetes mellitus): Plan: Home long acting insulin glargine (Basaglar) decreased from 43u qam to 40u qam at last pcp visit. Med rec is incorrect (shows discontinued). Patient takes 2u aspart in evenings when needed. States has had 20 lb intentional wt loss and better glycemic control w/ adoption of low carb diet as outpatient While inpatient will utilize lantus and SSI w/ reduced lantus 30u because incorporating larger amount of SSI. bsg achs. (3) Hypertension: Plan: - continue home regimen (4) Severe obstructive sleep apnea: Plan: - qhs cpap (5) Chronic pulmonary aspiration: Plan: - aspiration precautions (6) Chronic kidney disease, stage 3a: Plan: - chronic, follow bmp Plan DM2, low Na diet. No IV fluids SCDs DNR/DNI med/surg History of Present Illness Chief Complaint: sharp right foot pain Primary Care Provider: Darwin Lugo, III, [employer] 81 y/o female w/ PMHx of foot neuropathy, HTN, CAMRON, asthma, GERD, HLD, chronic aspiration, anticoagulation use, neurogenic claudication from lumbar spinal stenosis, anxiety, ckd, DM2 who presents w/ intractable dorsal right foot sharp/lightning pain that started today. She states that the pain at her right foot involves the dorsum of her second through fifth toes and involved just proximal to that region. It is sharp stabbing and electric like. The pain is much worse than her prior neuropathic pains. Preceding this, she wore an old diabetic boot today that she has not worn in a long time and daughter believes that this may have preceded the onset of the current symptoms. She denies any fever chills, chest pain, SOB, or infectious symptoms. She states that she was o n large doses of gabapentin in the past but it affected her breathing so this was decreased to her current approximately 100 mg 4 times daily dosing since approximately 6 months ago. She has had mild visual hallucinations after the Ativan, but otherwise has been at mental baseline and without confusion per daughter. History obtained from patient and daughter at bedside. ED course: morphine 4mg IV. Ativan 0.5mg IV. Decadron 8mg IV. Allergies Allergy/AdvReac Type Severity Reaction Status Date / Time cantaloupe Allergy Severe THROAT Verified 01/24/22 23:31 CLOSES celecoxib [From Celebrex] Allergy Severe CAUSED Verified 01/24/22 23:31 STROKE melon Allergy Severe THROAT Verified 01/24/22 23:31 CLOSES meperidine Allergy Severe almost Verified 01/24/22 23:31 "closed throat" midodrine Allergy Severe "almost Verified 01/24/22 23:31 closed throat" Penicillins Allergy Severe ANAPHYLAXIS Verified 01/24/22 23:31 sulfamethoxazole Allergy Severe THROAT Verified 01/24/22 23:31 CLOSED trimethoprim Allergy Severe THROAT Verified 01/24/22 23:31 CLOSED watermelon Allergy Severe THROAT Verified 01/24/22 23:31 CLOSES diphenoxylate Allergy Intermediate Unknown Verified 01/24/22 23:31 metronidazole [From Flagyl] Allergy Intermediate Hives Verified 01/24/22 23:31 DENILSON Inhibitors Allergy Unknown unknown to Verified 01/24/22 23:31 pt atropine Allergy Unknown Unknown Verified 01/24/22 23:31 carvedilol Allergy Unknown Unknown Verified 01/24/22 23:31 clonazepam [From Klonopin] Allergy Unknown Unknown Verified 01/24/22 23:31 doxycycline Allergy Unknown Unknown Verified 01/24/22 23:31 furosemide [From Lasix] Allergy Unknown Unknown Verified 01/24/22 23:31 Histamine H2 Inhibitors Allergy Unknown unknown to Verified 01/24/22 23:31 pt Iodinated Contrast Media Allergy Unknown JULY 2017 Verified 01/24/22 23:31 [facility] -- TOLERATED WITH SLOW INFUSION PER PATIENT nitrofurantoin Allergy Unknown Unknown Verified 01/24/22 23:31 phenazopyridine Allergy Unknown Unknown Verified 01/24/22 23:31 ranitidine Allergy Unknown Unknown Verified 01/24/22 23:31 repaglinide Allergy Unknown Unknown Verified 01/24/22 14:42 rosiglitazone Allergy Unknown Unknown Verified 01/24/22 23:31 tolterodine [From Detrol] Allergy Unknown Unknown Verified 01/24/22 14:42 ciprofloxacin [From Cipro] AdvReac Severe throat Verified 01/24/22 23:31 swelling citalopram [From Celexa] AdvReac Severe SEE COMMENT Verified 01/24/22 23:31 diazepam AdvReac Severe SEDATION Verified 01/24/22 23:31 LASTING TOO LONG prednisone AdvReac Severe BSG Verified 01/24/22 23:31 ELEVATED TO THE 500'S glyburide AdvReac Intermediate SEVERE Verified 01/24/22 23:31 ABDOMINAL PAIN meloxicam [From Mobic] AdvReac Intermediate SICK TO Verified 01/24/22 23:31 STOMACH metformin AdvReac Intermediate SEVERE Verified 01/24/22 23:31 ABDOMINAL PAIN oxycodone AdvReac Intermediate SEVERE Verified 01/24/22 23:31 WITHDRAWAL SYMPTOMS WHEN TRYING TO STOP TAKING paroxetine AdvReac Intermediate DID NOT Verified 01/24/22 23:31 HELP temazepam AdvReac Intermediate DID NOT Verified 01/24/22 23:31 HELP tramadol AdvReac Intermediate Vomiting Verified 01/24/22 23:31 albuterol AdvReac Unknown UNK Verified 01/24/22 23:31 carbamazepine AdvReac Unknown Unknown Verified 01/24/22 23:31 ibuprofen AdvReac Unknown Unknown Verified 01/24/22 23:31 lisinopril AdvReac Unknown UNK Verified 01/24/22 23:31 mirtazapine AdvReac Unknown Unknown Verified 01/24/22 23:31 olanzapine AdvReac Unknown Unknown Verified 01/24/22 23:31 rofecoxib AdvReac Unknown Unknown Verified 01/24/22 23:31 valproic acid AdvReac Unknown Unknown Verified 01/24/22 23:31 Home Medications Medication Instructions Recorded Confirmed Type docusate sodium 100 mg capsule 100 mg PO BID PRN Constipation 10/22/19 01/24/22 History (Colace) albuterol sulfate 90 mcg/actuation 1 puff inhalation Q4H PRN Wheezing 12/09/19 01/24/22 History aerosol inhaler (Ventolin HFA) polyethylene glycol 3350 17 17 g PO DAILY PRN constipation 01/13/20 01/24/22 Rx gram/dose oral powder (Miralax) #119 grams cholecalciferol (vitamin D3) 125 5,000 unit PO QAM #30 tabs 01/29/20 01/24/22 Rx mcg (5,000 unit) tablet (Vitamin D3) lancets #100 ea 03/03/20 01/24/22 History blood-glucose meter,continuous #1 ea 09/13/20 01/24/22 History (Dexcom G6 Investment Broker misc) blood-glucose sensor (Dexcom G6 #3 ea 09/13/20 01/24/22 History Sensor device) blood-glucose transmitter (Dexcom #1 ea 09/13/20 01/24/22 History G6 Transmitter device) thiamine HCl (vitamin B1) 100 mg 100 mg PO DAILY 30 days #30 tabs 11/10/20 01/24/22 Rx tablet ipratropium bromide 21 mcg (0.03 2 spray intranasal DAILY #30 mL 01/11/21 01/24/22 Rx %) nasal spray metoprolol succinate 50 mg 50 mg PO QPM #90 tabs 04/29/21 01/24/22 Rx tablet,extended release 24 hr (Toprol XL) epinephrine 0.3 mg/0.3 mL 0.3 mg (0.3 mL) IM DIRECTED PRN 05/03/21 01/24/22 Rx injection, auto-injector Anaphylaxis #1 ea diphenhydramine HCl 25 mg tablet 25 mg PO DAILY PRN itching 05/19/21 01/24/22 History (Benadryl Allergy) hydrocortisone 1 % topical cream 1 applic topical BID PRN Itching 06/14/21 01/24/22 Rx #28.4 grams ondansetron HCl 4 mg tablet 4 mg PO Q6H PRN nausea and 07/07/21 01/24/22 Rx vomiting #30 tabs lactase 9,000 unit tablet (Lactaid 9,000 unit PO QID PRN Lactose 07/22/21 01/24/22 History Fast Act) Intolerance lidocaine 4 % topical patch 2 patch topical UD PRN Pain 07/22/21 01/24/22 History (Salonpas (lidocaine)) melatonin 3 mg disintegrating 3 mg PO HS PRN Insomnia 07/22/21 01/24/22 History tablet nitroglycerin 0.4 mg sublingual 0.4 mg sublingual DIRECTED PRN 07/25/21 01/24/22 Rx tablet Chest Pain #30 tabs oxybutynin chloride 5 mg tablet 5 mg PO TID PRN bladder spasms #90 07/25/21 01/24/22 Rx tabs acetaminophen 500 mg tablet 1,000 mg PO Q6H PRN mild pain/fever 07/28/21 01/24/22 History diphenoxylate-atropine 2.5 1 tab PO BID PRN Diarrhea 07/28/21 01/24/22 History mg-0.025 mg tablet (Lomotil) fluocinolone 0.01 % shampoo 30 ml topical 2XWK PRN scalp 08/02/21 01/24/22 Rx irritation #120 mL pen needle, diabetic 31 gauge x #100 ea 08/11/21 01/24/22 Rx 5/16" (BD Ultra-Fine Short Pen Needle) cyanocobalamin (vitamin B-12) 1,000 mcg PO DAILY #90 tabs 08/31/21 01/24/22 Rx 1,000 mcg tablet (Vitamin B-12) blood sugar diagnostic (OneTouch #200 ea 10/11/21 01/24/22 Rx Ultra Test strips) montelukast 10 mg tablet 10 mg PO QPM #90 tabs 10/19/21 01/24/22 Rx (Singulair) pantoprazole 40 mg tablet,delayed 40 mg PO BID #180 tabs 10/19/21 01/24/22 Rx release pravastatin 40 mg tablet 40 mg PO .EVERY 48 HOURS #90 tabs 10/19/21 01/24/22 Rx clopidogrel 75 mg tablet (Plavix) 75 mg PO QAM #90 tabs 11/16/21 01/24/22 Rx escitalopram oxalate 20 mg tablet 20 mg PO HS #90 tabs 11/16/21 01/24/22 Rx gabapentin 100 mg capsule See Rx Instructions PO .COMPLEX 01/13/22 01/24/22 Rx #360 caps loperamide 2 mg capsule 4 mg PO UD PRN Diarrhea #20 caps 01/16/22 01/24/22 Rx diclofenac sodium 1 % topical gel See Rx Instructions .Route 01/24/22 01/24/22 History .COMPLEX PRN JOINT PAIN insulin aspart U-100 100 unit/mL 2 unit subcut QDD 01/24/22 01/24/22 History (3 mL) subcutaneous pen (Novolog Flexpen U-100 Insulin aspart) cephalexin 500 mg tablet 500 mg PO TID 7 days #21 tabs 01/25/22 Rx Past Med/Surg History Medical History Acute hypercapnic respiratory failure 03/2019 [facility] (acute kidney injury) Anxiety and depression Asthma Per pulmonology 10/10/19, likely NOT asthma but chronic aspiration. Flovert and Spiriva discontinued, pt to use albuterol PRN Breast cancer UNSURE WHICH SIDE WAS CANCER. Chronic back pain Chronic neck pain Chronic pulmonary aspiration 2/2 h/o CVA, CAMRON. Fusion of spine GERD (gastroesophageal reflux disease) History of benign brain tumor History of dysphagia ESOPHAGEAL DILATION IN PAST History of esophageal dilatation History of spinal stenosis History of stroke History of uterine cancer Endometrial biopsy revealed endometrioid adenocarcinoma. Status post total abdominal hysterectomy and bilateral salpingo-oophorectomy. Status post completion of radiation therapy with external beam radiation as well as 2 HDR treatments completed 08/15/2013 Hypertension Left pontine stroke 01/2019, on Plavix, [place] [facility] [place]. Lymphedema of right arm CHRONIC, 2/2 MASTECTOMY Meningioma R temporal lobe, neurology monitoring. Microalbuminuria due to type 2 diabetes mellitus Microcytic anemia Morbid obesity Neuropathy Numb feet, painful radiculopathy in hands from cervical radiculopathy Obesity hypoventilation syndrome Osteoarthritis PAC (premature atrial contraction) PVC (premature ventricular contraction) Sensorineural hearing loss (SNHL) of both ears Severe obstructive sleep apnea CPAP, pt reports compliance T2DM (type 2 diabetes mellitus) Uterine cancer S/P RICHARD BSO WITH RADIATION Weakness Surgical History Difficult airway for intubation History of cardiac catheterization NO STENTS History of cataract surgery BILATERAL History of cholecystectomy History of colonoscopy History of esophagogastroduodenoscopy (EGD) History of knee surgery ARTHROSCOPY LEFT KNEE History of mastectomy BILATERAL History of total abdominal hysterectomy BSO Family History Mother Diabetes Myocardial infarction Hypertension Family history of diabetes mellitus Brother Family history of diabetes mellitus Sister Osteoporosis Arthritis Denies family history of Ovarian cancer Prostate cancer Breast cancer Colorectal cancer Social History Smoking Status: Former smoker Tobacco Type: Cigarettes Age Started Using Tobacco: 15; Age Quit Using Tobacco: 30; packs per day: 1; Second Hand Exposure: No; Do You Dip or Chew Tobacco: No; Tobacco Cessation Education Requested by Patient: No Hx Alcohol Use: No Hx Substance Use: No Preferred Language: Korean Communication Ability: Effective Visual Impairment: Limited Hearing Ability: Hard of Hearing Basket Machine Operator Required: No Beliefs That Will Affect Care: Sabianist Sabianist Beliefs: RESTORATION marital status: / Current Living Situation: Personal Care Facility Current Living Situation Comment: Assisted living current occupational status: retired Other Information That Helps Us Care for You: No Feels Safe at Home: Yes Safety Concerns: Feels Safe At This Time Childhood Exposure to Second-Hand Smoke: No Diet Comment: low carb Dental Care, Regularly: Yes Physical Activity Frequency: Does not Exercise Seatbelt Use: always Sunscreen Use: Yes Assistive Devices: Denture - Upper, Denture - Lower, Glasses, Walker and Wheelchair Review of Systems Review of Systems: All systems reviewed & are unremarkable except as noted in HPI & below Physical Exam Physical Exam: General: Grossly A&O. NAD. Cooperative. HEENT: Atraumatic, normocephalic. EOMI Pulm: CTAB anteriorly. No respiratory distress. Cardiac: RRR, -mrg. DP pulse intact of right foot. Abdominal: Nontender, nondistended, soft. Neuro/msk:Decreased sensation to light touch of bilat feet. TTP at dorsum of right foot just proximal to toes. Patient is seen jolting up in bed several times from the right foot pain. no ttp of ankle area Neg straight leg raise on right. Results & Data Results & Data ([facility]) Vital Signs (Past 12 Hours) Vital Signs Temp Pulse Pulse Resp BP BP Pulse Ox 01/25/22 02:43 68 20 182/62 H 95 01/25/22 00:14 62 20 184/86 H 94 01/24/22 22:29 37.1 C 61 18 184/66 H 98 O2 Del Method 01/25/22 02:43 Room Air 01/25/22 00:14 Room Air 01/24/22 22:29 Room Air Laboratory Results Cardiac Enzymes 01/25/22 Range/Units 00:00 AST 17 (13-39) U/L Coagulation 01/25/22 Range/Units 00:00 PT 12.5 H (9.0-12.0) Seconds APTT 25.6 (21.0-31.0) Seconds CBC 01/25/22 Range/Units 00:00 WBC 6.36 (4.8-10.8) K/ul RBC 4.86 (3.93-5.22) M/uL Hgb 11.6 L (12.0-16.0) g/dl Hct 36.9 (34.1-44.9) % Plt Count 126 L (130-400) K/uL Neut # (Auto) 4.26 (1.4-6.5) K/uL Lymph # (Auto) 1.50 (1.2-3.4) K/uL [place] # (Auto) 0.46 (0.24-0.82) K/uL Eos # (Auto) 0.07 (0-0.50) K/uL Baso # (Auto) 0.05 (0-0.2) K/uL Comprehensive Metabolic Panel 01/25/22 Range/Units 00:00 Sodium 138 (136-145) mmol/L Potassium 3.8 (3.5-5.1) mmol/L Chloride 104 (98-107) mmol/L Carbon Dioxide 25 (21-32) mmol/L BUN 39 H (6-23) mg/dl Creatinine 1.47 H (0.6-1.2) mg/dl Glucose 82 (70-99(Fasting)) mg/dl Calcium 9.2 (8.5-10.1) mg/dl AST 17 (13-39) U/L ALT 13 (7-52) U/L Alkaline Phosphatase 68 (34-104) U/L Total Protein 7.0 (6.0-8.3) gm/dl Albumin 3.8 (3.4-5.0) gm/dl Intake and Output 01/24/22 01/24/22 01/25/22 14:59 22:59 06:59 Other: Weight 94.3 kg Weight Measurement Method [facility] Patient Weight 01/25/22 06:59 Weight 94.3 kg Code Status & VTE Plan Code Status DNR/DNI VTE Prophylaxis Plan VTE Prophylaxis will be ordered: Yes Supervising Physician Co-Signing Physician Notes Attending addendum: I have physically seen this patient, have supervised the medical residents activities, and agree with the H&P unless as otherwise noted. 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 Doppler negative for PAD Symptomatic treatment with increasing gabapentin doses as noted Consult neurology Diabetes mellitus- Lantus insulin and sliding scale insulin as noted Hypertension- Continuing home regimen CAMRON- Continue CPAP at bedtime Remaining orders and notations as noted Resident Activity Tracking Resident Involvement: Resident Care Provided Care Provided: Adult Hospital Medicine (1) Hypertension Hypertension type: unspecified Qualified Code(s): I10 - Essential (primary) hypertension
[2022-01-25] MEDS ORDERED: CAPSAICIN CR 0.075% 60 GM TUBE EXT STA (04:47)
[2022-01-25] MEDS ORDERED: GABAPENTIN 100 MG CAP PO STA (04:47)
[2022-01-25] MEDS ORDERED: DEXTROSE 50% 50 ML SYRINGE IV PRN (06:08)
[2022-01-25] MEDS ORDERED: CARBOHYDRATES FOR HYPOGLYCEMIA PO PRN (06:08)
[2022-01-25] MEDS ORDERED: GLUCOSE 10 TAB/TUBE PO PRN (06:08)
[2022-01-25] MEDS ORDERED: GLUCAGON FOR INJ 1 MG VIAL SQ PRN (06:08)
[2022-01-25] MEDS ORDERED: GLUCOSE 40% GEL 15 GM TUBE PO PRN (06:08)
[2022-01-25] MEDS ORDERED: ALBUTEROL HFA 8 GM INHALER INH PRN (07:09)
[2022-01-25] MEDS ORDERED: MELATONIN 3 MG TAB PO PRN (07:09)
[2022-01-25] MEDS ORDERED: POLYETHYLENE (MIRALAX) 17 GM PACK PO PRN (07:09)
[2022-01-25] MEDS ORDERED: ACETAMINOPHEN 325 MG TAB PO PRN (07:09)
[2022-01-25] MEDS: INSULIN ASPART PER UNIT SC SCH ×5 (07:45→22:32)
[2022-01-25] MEDS: CLOPIDOGREL BISULFATE 75 MG TAB PO SCH (08:27)
[2022-01-25] MEDS: PANTOprazole 40 MG TAB PO SCH (08:27)
[2022-01-25] MEDS ORDERED: LANTUS PER UNIT CHARGE SQ SCH ×2 (09:00→16:30)
--- NOTE | 2022-01-25 09:34 | Ultrasound Report ---
US arterial duplex LE RT CLINICAL HISTORY: pain TECHNIQUE: Real-time grayscale and color and spectral Doppler ultrasound imaging of the bilateral low er extremity arteries was performed. Measurements calculated based on NASCET criteria. COMPARISON: None available at the time of this dictation. FINDINGS: Biphasic waveforms are seen in the right lower extremity vasculature. There is no evidence of elevate d velocities to suggest significant stenosis IMPRESSION: Biphasic waveforms are noted throughout the right lower extremity. No evidence of high-grade stenosis or occlusion. ACT 112: Negative or not required by law. Electronically signed by: Reji Jones M.D. 01/25/2022 9:32 AM
[2022-01-25] MEDS ORDERED: HYDROCODONE/ACETAMOPHEN 5/325MG TAB PO PRN (12:25)
[2022-01-25] MEDS ORDERED: HYDROmorphone INJ 0.5 MG/0.5 ML SYR IV PRN (12:25)
[2022-01-25] MEDS ORDERED: PHARMACY GLYCEMIC MGMT CONSULT PRN (12:28)
--- NOTE | 2022-01-25 13:55 | Pharmacy Report ---
Pharmacy Glycemic Short Note 2 - Date of Service January 25, 2022 - Glycemic Short BSG Results (Last 24 hours): 01/25/22 01/25/22 01/25/22 00:00 06:43 12:35 Glucose 82 POC Glucose 126 H 182 H OUTPATIENT ANTIDIABETIC REGIMEN: * Basaglar 40 units SQ qAM * Novolog 2 units with dinner ASSESSMENT: * Ms Carvalho is an 81 y/o F with a PMH of T2DM who is insulin dependent. She presents with neuropathic pain in her R foot. * Patient was given 8 mg in the morning and started on 6 mg IV TID. * Patient's fasting was 126 mg/dL. * Patient was previously followed by glycemic service in 2018 and 2019 but this was when patient was on Lantus 32 units BID. Patient's outpatient regimen has vastly changed and patient has lost weight. * Patient given Lantus 30 units in the morning. Will provide additional 10 units with dinner to equal her home 40 units. * Novolog weight-based stress of 3. Will add on overnight checks to establish true 24 hour needs while on dexamethasone. PLAN FOR INPATIENT GLYCEMIC CONTROL: * Basal insulin * Lantus 10 units SQ x 1 in addition to 30 units from this morning. Re- evaluate 01/26 * Bolus insulin * NovoLog per scale ACHS or Q6hrs while NPO * Goal Range: Low 110 mg/dL - High 140 mg/dL * Correction Factor: 15 mg/dL/unit * Nutritional / Prandial insulin per carb ratio of 1 unit per 6 grams CHO consumed
[2022-01-25] MEDS ORDERED: GABAPENTIN 400 MG CAP PO SCH ×2 (14:00→21:00)
[2022-01-25] MEDS ORDERED: dexAMETHasone 4 MG in SYRINGE 0 ML IV SCH (14:00)
--- NOTE | 2022-01-25 14:28 | Magnetic Resonance Report ---
MR lumbar spine wo con CLINICAL HISTORY: suspected Right L5 or S1 radiculopathy TECHNIQUE: Multiplanar sequences through the lumbar spine were obtained, without intravenous contrast . Comparison: Comparison is made to MRI lumbar spine 01/09/2020 FINDINGS: Postoperative changes are again seen spanning T12-L4. L1-L2: No significant abnormality. L2-L3: Facet arthropathy is seen resulting in mild canal stenosis, AP diameter 8 mm. L3-L4: A broad-based posterior disc bulge is seen resulting in mild canal stenosis. L4-L5: Broad-based posterior disc bulge is seen resulting in mild canal and moderate bilateral neurof oraminal stenosis. L5-S1: Broad-based posterior disc bulge is seen resulting in mild canal and moderate bilateral neurof oraminal stenosis. The spinal ligaments are intact, without evidence of disruption or abnormal signal intensity. The spi nal cord is normal in signal intensity and there is no evidence of cord contusion. There is no eviden ce of an extradural, intradural, extramedullary or intramedullary lesion. Bilateral renal cysts are s een. IMPRESSION: Stable postsurgical changes are seen. Degenerative changes are noted with up to moderate bilateral ne ural foraminal stenosis and mild canal stenosis, improved from prior exam. ACT 112: Negative or not required by law. Electronically signed by: Reji Jones M.D. 01/25/2022 2:27 PM
--- NOTE | 2022-01-25 16:25 | XRay Report ---
LUMBAR SPINE 3 VIEWS CLINICAL HISTORY: Left foot pain. History of back surgery. FINDINGS: 3 views of the lumbar spine are compared to study dated 01/10/2020. The skeletal structures are osteopenic. There is no radiographic evidence of acute fracture or malalignment involving the robles mbar spine. Vertebral body height and alignment are maintained. There is postoperative change from la minectomy and posterior fusion seen from T12-L4. Intrapedicle screws are present at all levels. The o rthopedic hardware appears intact. Interposition bone graft material is noted. There is straightening of the lumbar lordosis. Anterior and lateral marginal osteophytes are seen throughout. Advanced disc space narrowing is seen at all lumbar levels between L1-L2 and L5-S1. Posterior disc osteophyte comp lexes are noted at L4-L5 and L5-S1. Advanced facet arthropathy is seen in the lower lumbar region. Th e visualized bony pelvis appears intact. Sclerotic change is noted in the sacroiliac joints. There is no bowel obstruction. Moderate fecal retention is seen throughout the colon. Cholecystectomy clips a re noted in the right upper quadrant. There is advanced atherosclerotic calcification of the abdomina l aorta. IMPRESSION: 1. No acute bony abnormality is seen involving the lumbar spine. 2. Osteopenia with postoperative and spondylotic change as above. Dictated: 01/25/2022 3:45 PM Transcribed: 01/25/2022 3:57 PM [place]de [id number] [place] Electronically signed by: Joey Patterson M.D. 01/25/2022 4:23 PM
--- NOTE | 2022-01-25 17:06 | Neurology Consultation ---
Date of Consultation January 25, 2022 Assessment & Plan (1) Intractable neuropathic pain of foot: Impression: The patient has been having neuropathic pain of dorsal right distal foot. There is no additional symptoms or physical examination findings to suggest lumbosacral radiculopathy or peroneal neuropathy. Electric current type neuropathic pain comes and goes. The patient is currently asymptomatic. Reportedly, she wore old diabetic boots yesterday, which might be the cause of compression on distal peripheral nerve fibers of right food. Lumbar sacral MRI study did not show any acute pathology. Plan/recommendations: We should titrate gabapentin dosage up gradually, as she tolerates. Local anesthesic creams and ointments might be helpful. Avoidance from triggers like pressure, or walking for few days. If increased dosage of gabapentin cannot tolerate symptoms, then low-dose carbamazepine might be tried. If her symptoms persist, then follow-up with neurology clinic. (2) Diabetic peripheral neuropathy associated with type 2 diabetes mellitus: Impression: The patient has long history of. For polyneuropathy secondary to diabetes mellitus, with decreased sensation in distal lower extremities. Plan Thank you for the consultation. History of Present Illness Reason for Consultation: Right foot pain Requesting Physician: Silverio Billings Attending Physician: Silverio Billings History of Present Illness The patient is a 81-year-old pleasant female, with history of diabetes mellitus, peripheral polyneuropathy, lumbar spondylosis with neurogenic claudication, hx/o lumbar sacral spinal surgery, who presented emergency department yesterday evening, after she began experiencing sharp shooting, electric current like severe pain, on the dorsum of distal right foot. Apparently, she wore old, diabetic boot yesterday, and her daughter believes that this was the cause of her neuropathic pain. The patient denies any recent fall or trauma. The patient denies associated symptoms of low back pain, sensorimotor symptoms involving leg, or weakness in ankle muscles. She has been on low-dose gabapentin for polyneuropathy symptoms. Gabapentin dosage was increased in emergency department, to control symptoms. The patient is currently asymptomatic. Lumbar MRI was done, which showed chronic degenerative changes, moderate neuroforaminal narrowings at L4, L5 and S1 levels, but no significant spinal stenosis, or change from prior imaging studies. The patient has no tenderness at fibular head or tarsal tunnel region. She describes her painful neuropathic symptoms on the dorsum of food, involving toes, up to 1 inch distal foot. I have reviewed the patient's chart including imaging studies and visualized them personally. I have discussed the case with the patient and answer her questions in detail. Allergies Allergy/AdvReac Type Severity Reaction Status Date / Time cantaloupe Allergy Severe THROAT Verified 01/24/22 23:31 CLOSES celecoxib [From Celebrex] Allergy Severe CAUSED Verified 01/24/22 23:31 STROKE melon Allergy Severe THROAT Verified 01/24/22 23:31 CLOSES meperidine Allergy Severe almost Verified 01/24/22 23:31 "closed throat" midodrine Allergy Severe "almost Verified 01/24/22 23:31 closed throat" Penicillins Allergy Severe ANAPHYLAXIS Verified 01/24/22 23:31 sulfamethoxazole Allergy Severe THROAT Verified 01/24/22 23:31 CLOSED trimethoprim Allergy Severe THROAT Verified 01/24/22 23:31 CLOSED watermelon Allergy Severe THROAT Verified 01/24/22 23:31 CLOSES diphenoxylate Allergy Intermediate Unknown Verified 01/24/22 23:31 metronidazole [From Flagyl] Allergy Intermediate Hives Verified 01/24/22 23:31 DENILSON Inhibitors Allergy Unknown unknown to Verified 01/24/22 23:31 pt atropine Allergy Unknown Unknown Verified 01/24/22 23:31 carvedilol Allergy Unknown Unknown Verified 01/24/22 23:31 clonazepam [From Klonopin] Allergy Unknown Unknown Verified 01/24/22 23:31 doxycycline Allergy Unknown Unknown Verified 01/24/22 23:31 furosemide [From Lasix] Allergy Unknown Unknown Verified 01/24/22 23:31 Histamine H2 Inhibitors Allergy Unknown unknown to Verified 01/24/22 23:31 pt Iodinated Contrast Media Allergy Unknown JULY 2017 Verified 01/24/22 23:31 [facility] -- TOLERATED WITH SLOW INFUSION PER PATIENT nitrofurantoin Allergy Unknown Unknown Verified 01/24/22 23:31 phenazopyridine Allergy Unknown Unknown Verified 01/24/22 23:31 ranitidine Allergy Unknown Unknown Verified 01/24/22 23:31 repaglinide Allergy Unknown Unknown Verified 01/24/22 14:42 rosiglitazone Allergy Unknown Unknown Verified 01/24/22 23:31 tolterodine [From Detrol] Allergy Unknown Unknown Verified 01/24/22 14:42 ciprofloxacin [From Cipro] AdvReac Severe throat Verified 01/24/22 23:31 swelling citalopram [From Celexa] AdvReac Severe SEE COMMENT Verified 01/24/22 23:31 diazepam AdvReac Severe SEDATION Verified 01/24/22 23:31 LASTING TOO LONG prednisone AdvReac Severe BSG Verified 01/24/22 23:31 ELEVATED TO THE 500'S glyburide AdvReac Intermediate SEVERE Verified 01/24/22 23:31 ABDOMINAL PAIN meloxicam [From Mobic] AdvReac Intermediate SICK TO Verified 01/24/22 23:31 STOMACH metformin AdvReac Intermediate SEVERE Verified 01/24/22 23:31 ABDOMINAL PAIN oxycodone AdvReac Intermediate SEVERE Verified 01/24/22 23:31 WITHDRAWAL SYMPTOMS WHEN TRYING TO STOP TAKING paroxetine AdvReac Intermediate DID NOT Verified 01/24/22 23:31 HELP temazepam AdvReac Intermediate DID NOT Verified 01/24/22 23:31 HELP tramadol AdvReac Intermediate Vomiting Verified 01/24/22 23:31 albuterol AdvReac Unknown UNK Verified 01/24/22 23:31 carbamazepine AdvReac Unknown Unknown Verified 01/24/22 23:31 ibuprofen AdvReac Unknown Unknown Verified 01/24/22 23:31 lisinopril AdvReac Unknown UNK Verified 01/24/22 23:31 mirtazapine AdvReac Unknown Unknown Verified 01/24/22 23:31 olanzapine AdvReac Unknown Unknown Verified 01/24/22 23:31 rofecoxib AdvReac Unknown Unknown Verified 01/24/22 23:31 valproic acid AdvReac Unknown Unknown Verified 01/24/22 23:31 Home Medications Medication Instructions Recorded Confirmed Type docusate sodium 100 mg capsule 100 mg PO BID PRN Constipation 10/22/19 01/24/22 History (Colace) albuterol sulfate 90 mcg/actuation 1 puff inhalation Q4H PRN Wheezing 12/09/19 01/24/22 History aerosol inhaler (Ventolin HFA) polyethylene glycol 3350 17 17 g PO DAILY PRN constipation 01/13/20 01/24/22 Rx gram/dose oral powder (Miralax) #119 grams cholecalciferol (vitamin D3) 125 5,000 unit PO QAM #30 tabs 01/29/20 01/24/22 Rx mcg (5,000 unit) tablet (Vitamin D3) lancets #100 ea 03/03/20 01/24/22 History blood-glucose meter,continuous #1 ea 09/13/20 01/24/22 History (Dexcom G6 [employer]itor misc) blood-glucose sensor (Dexcom G6 #3 ea 09/13/20 01/24/22 History Sensor device) blood-glucose transmitter (Dexcom #1 ea 09/13/20 01/24/22 History G6 Transmitter device) thiamine HCl (vitamin B1) 100 mg 100 mg PO DAILY 30 days #30 tabs 11/10/20 01/24/22 Rx tablet ipratropium bromide 21 mcg (0.03 2 spray intranasal DAILY #30 mL 01/11/21 01/24/22 Rx %) nasal spray metoprolol succinate 50 mg 50 mg PO QPM #90 tabs 04/29/21 01/24/22 Rx tablet,extended release 24 hr (Toprol XL) epinephrine 0.3 mg/0.3 mL 0.3 mg (0.3 mL) IM DIRECTED PRN 05/03/21 01/24/22 Rx injection, auto-injector Anaphylaxis #1 ea diphenhydramine HCl 25 mg tablet 25 mg PO DAILY PRN itching 05/19/21 01/24/22 History (Benadryl Allergy) hydrocortisone 1 % topical cream 1 applic topical BID PRN Itching 06/14/21 01/24/22 Rx #28.4 grams ondansetron HCl 4 mg tablet 4 mg PO Q6H PRN nausea and 07/07/21 01/24/22 Rx vomiting #30 tabs lactase 9,000 unit tablet (Lactaid 9,000 unit PO QID PRN Lactose 07/22/21 01/24/22 History Fast Act) Intolerance lidocaine 4 % topical patch 2 patch topical UD PRN Pain 07/22/21 01/24/22 History (Salonpas (lidocaine)) melatonin 3 mg disintegrating 3 mg PO HS PRN Insomnia 07/22/21 01/24/22 History tablet nitroglycerin 0.4 mg sublingual 0.4 mg sublingual DIRECTED PRN 07/25/21 01/24/22 Rx tablet Chest Pain #30 tabs oxybutynin chloride 5 mg tablet 5 mg PO TID PRN bladder spasms #90 07/25/21 01/24/22 Rx tabs acetaminophen 500 mg tablet 1,000 mg PO Q6H PRN mild pain/fever 07/28/21 01/24/22 History diphenoxylate-atropine 2.5 1 tab PO BID PRN Diarrhea 07/28/21 01/24/22 History mg-0.025 mg tablet (Lomotil) fluocinolone 0.01 % shampoo 30 ml topical 2XWK PRN scalp 08/02/21 01/24/22 Rx irritation #120 mL pen needle, diabetic 31 gauge x #100 ea 08/11/21 01/24/22 Rx 5/16" (BD Ultra-Fine Short Pen Needle) cyanocobalamin (vitamin B-12) 1,000 mcg PO DAILY #90 tabs 08/31/21 01/24/22 Rx 1,000 mcg tablet (Vitamin B-12) blood sugar diagnostic (OneTouch #200 ea 10/11/21 01/24/22 Rx Ultra Test strips) montelukast 10 mg tablet 10 mg PO QPM #90 tabs 10/19/21 01/24/22 Rx (Singulair) pantoprazole 40 mg tablet,delayed 40 mg PO BID #180 tabs 10/19/21 01/24/22 Rx release pravastatin 40 mg tablet 40 mg PO .EVERY 48 HOURS #90 tabs 10/19/21 01/24/22 Rx clopidogrel 75 mg tablet (Plavix) 75 mg PO QAM #90 tabs 11/16/21 01/24/22 Rx escitalopram oxalate 20 mg tablet 20 mg PO HS #90 tabs 11/16/21 01/24/22 Rx gabapentin 100 mg capsule See Rx Instructions PO .COMPLEX 01/13/22 01/24/22 Rx #360 caps loperamide 2 mg capsule 4 mg PO UD PRN Diarrhea #20 caps 01/16/22 01/24/22 Rx diclofenac sodium 1 % topical gel See Rx Instructions .Route 01/24/22 01/24/22 History .COMPLEX PRN JOINT PAIN insulin aspart U-100 100 unit/mL 2 unit subcut QDD 01/24/22 01/24/22 History (3 mL) subcutaneous pen (Novolog Flexpen U-100 Insulin aspart) Patient History Medical History Acute hypercapnic respiratory failure 03/2019 [facility] (acute kidney injury) Anxiety and depression Asthma Per pulmonology 10/10/19, likely NOT asthma but chronic aspiration. Flovert and Spiriva discontinued, pt to use albuterol PRN Breast cancer UNSURE WHICH SIDE WAS CANCER. Chronic back pain Chronic neck pain Chronic pulmonary aspiration 2/2 h/o CVA, [facility]. Fusion of spine GERD (gastroesophageal reflux disease) History of benign brain tumor History of dysphagia ESOPHAGEAL DILATION IN PAST History of esophageal dilatation History of spinal stenosis History of stroke History of uterine cancer Endometrial biopsy revealed endometrioid adenocarcinoma. Status post total abdominal hysterectomy and bilateral salpingo-oophorectomy. Status post completion of radiation therapy with external beam radiation as well as 2 HDR treatments completed 08/15/2013 Hypertension Left pontine stroke 01/2019, on Plavix, [place] [facility] [place]. Lymphedema of right arm CHRONIC, 2/2 MASTECTOMY Meningioma R temporal lobe, neurology monitoring. Microalbuminuria due to type 2 diabetes mellitus Microcytic anemia Morbid obesity Neuropathy Numb feet, painful radiculopathy in hands from cervical radiculopathy Obesity hypoventilation syndrome Osteoarthritis PAC (premature atrial contraction) PVC (premature ventricular contraction) Sensorineural hearing loss (SNHL) of both ears Severe obstructive sleep apnea CPAP, pt reports compliance T2DM (type 2 diabetes mellitus) Uterine cancer S/P RICHARD BSO WITH RADIATION Weakness Surgical History Difficult airway for intubation History of cardiac catheterization NO STENTS History of cataract surgery BILATERAL History of cholecystectomy History of colonoscopy History of esophagogastroduodenoscopy (EGD) History of knee surgery ARTHROSCOPY LEFT KNEE History of mastectomy BILATERAL History of total abdominal hysterectomy BSO Family History Mother Diabetes Myocardial infarction Hypertension Family history of diabetes mellitus Brother Family history of diabetes mellitus Sister Osteoporosis Arthritis Denies family history of Ovarian cancer Prostate cancer Breast cancer Colorectal cancer Social History Smoking Status: Former smoker Tobacco Type: Cigarettes Age Started Using Tobacco: 15; Age Quit Using Tobacco: 30; packs per day: 1; Second Hand Exposure: No; Do You Dip or Chew Tobacco: No; Tobacco Cessation Education Requested by Patient: No Hx Alcohol Use: No Hx Substance Use: No Preferred Language: Uzbek Communication Ability: Effective Visual Impairment: Limited Hearing Ability: Hard of Hearing Celery Stripper Required: No Beliefs That Will Affect Care: Buddhism Buddhism Beliefs: CHEONDOISM marital status: / Current Living Situation: Personal Care Facility Current Living Situation Comment: Assisted living current occupational status: retired Other Information That Helps Us Care for You: No Feels Safe at Home: Yes Safety Concerns: Feels Safe At This Time Childhood Exposure to Second-Hand Smoke: No Diet Comment: low carb Dental Care, Regularly: Yes Physical Activity Frequency: Does not Exercise Seatbelt Use: always Sunscreen Use: Yes Assistive Devices: Denture - Upper, Denture - Lower, Glasses, Walker and Wheelchair Review of Systems Review of Systems: All systems reviewed & are unremarkable except as noted in HPI & below Physical Exam Physical Exam: General Examination: Constitutional: Well developed obese person in no acute distress. HENT: Normal exam with inspection. CV: Hearth rhythm is regular. Neck: Supple, no carotid bruits. Lungs: Non-labored and comfortable breathing. Abdomen: Soft, non-tender, non-distended. Skin: No rash or ecchymosis. Extremities: No edema or cyanosis NEUROLOGICAL EXAMINATION: Mental Status: Alert and oriented to place, person and time. Cranial Nerves: II-XII are intact. No nystagmus. Right eye exotropia is noticed. Funduscopy: Unable to visualize Motor: 5/5 in all extremities without asymmetry. More specifically, there is no weakness of ankle dorsiflexors, inverters, everters and plantar flexors. DTRs: 2+ in upper extremities, 1+ in knees and only trace in ankles symmetrically Tone: Normal without spasticity or rigidity. Sensory: Decreased sensation distal lower extremities up to mid calves to all sensory modalities. The patient has no neuropathic pain of right foot at this time. There is no sensory impairment of L5, peroneal nerve or sciatic nerve de rmatomes. Coordination: No dysmetria with FTN testing. Speech: Fluent. Comprehension is intact. Gait: Not assessed. Musculoskeletal: Normal muscle bulk, no atrophy. Straight leg raising test induced some stretching on thighs and buttocks, but did not induce low back pain. There is no tenderness at the fibular head region. There is no tenderness at the tarsal tunnel region either. Results & Data ([facility]) Vital Signs (Past 12 Hours) Vital Signs Pulse Pulse Resp BP BP Pulse Ox O2 Del Method 01/25/22 13:07 95 01/25/22 13:07 146/70 H 01/25/22 08:00 67 17 164/55 H 98 01/25/22 07:25 68 18 219/105 H 94 Room Air 01/25/22 07:21 65 18 219/105 H 94 Room Air 01/25/22 07:10 69 22 219/105 H 94 Room Air 01/25/22 06:00 67 18 174/82 H 95 Room Air Laboratory Results Laboratory Results - last 24 hr 01/25/22 01/25/22 01/25/22 00:00 00:00 00:00 WBC 6.36 RBC 4.86 Hgb 11.6 L Hct 36.9 MCV 75.9 L MCH 23.9 L MCHC 31.4 L RDW Std Deviation 39.5 RDW Coeff of Tim 14.7 H Plt Count 126 L MPV 9.5 Immature Gran % (Auto) 0.3 Neut % (Auto) 67.0 Lymph % (Auto) 23.6 [place] % (Auto) 7.2 Eos % (Auto) 1.1 Baso % (Auto) 0.8 Neut # (Auto) 4.26 Lymph # (Auto) 1.50 [place] # (Auto) 0.46 Eos # (Auto) 0.07 Baso # (Auto) 0.05 Immature Gran # (Auto) 0.02 PT 12.5 H INR 1.2 H APTT 25.6 PTT Ratio 0.9 Sodium 138 Potassium 3.8 Chloride 104 Carbon Dioxide 25 Anion Gap 9 BUN 39 H Creatinine 1.47 H Est Cr Clr Drug Dosing 31.5 Est GFR ( Amer) 38.4 Est GFR (Non-Af Amer) 33.1 BUN/Creatinine Ratio 26.5 H Glucose 82 POC Glucose Calcium 9.2 Magnesium Total Bilirubin 0.6 AST 17 ALT 13 Alkaline Phosphatase 68 Total Protein 7.0 Albumin 3.8 Globulin 3.2 Albumin/Globulin Ratio 1.2 SARS-CoV-2, RNA, NAAT 01/25/22 01/25/22 01/25/22 00:00 06:00 06:43 WBC RBC Hgb Hct MCV MCH MCHC RDW Std Deviation RDW Coeff of Tim Plt Count MPV Immature Gran % (Auto) Neut % (Auto) Lymph % (Auto) [place] % (Auto) Eos % (Auto) Baso % (Auto) Neut # (Auto) Lymph # (Auto) [place] # (Auto) Eos # (Auto) Baso # (Auto) Immature Gran # (Auto) PT INR APTT PTT Ratio Sodium Potassium Chloride Carbon Dioxide Anion Gap BUN Creatinine Est Cr Clr Drug Dosing Est GFR ( Amer) Est GFR (Non-Af Amer) BUN/Creatinine Ratio Glucose POC Glucose 126 H Calcium Magnesium 1.7 Total Bilirubin AST ALT Alkaline Phosphatase Total Protein Albumin Globulin Albumin/Globulin Ratio SARS-CoV-2, RNA, NAAT NEGATIVE 01/25/22 01/25/22 12:35 17:09 WBC RBC Hgb Hct MCV MCH MCHC RDW Std Deviation RDW Coeff of Tim Plt Count MPV Immature Gran % (Auto) Neut % (Auto) Lymph % (Auto) [place] % (Auto) Eos % (Auto) Baso % (Auto) Neut # (Auto) Lymph # (Auto) [place] # (Auto) Eos # (Auto) Baso # (Auto) Immature Gran # (Auto) PT INR APTT PTT Ratio Sodium Potassium Chloride Carbon Dioxide Anion Gap BUN Creatinine Est Cr Clr Drug Dosing Est GFR ( Amer) Est GFR (Non-Af Amer) BUN/Creatinine Ratio Glucose POC Glucose 182 H 152 H Calcium Magnesium Total Bilirubin AST ALT Alkaline Phosphatase Total Protein Albumin Globulin Albumin/Globulin Ratio SARS-CoV-2, RNA, NAAT Diagnostic Findings Duplex Scan Lower Extremity Artery 01/24/22 23:12 US arterial duplex LE RT CLINICAL HISTORY: pain TECHNIQUE: Real-time grayscale and color and spectral Doppler ultrasound imaging of the bilateral lower extremity arteries was performed. Measurements calculated based on NASCET criteria. COMPARISON: None available at the time of this dictation. FINDINGS: Biphasic waveforms are seen in the right lower extremity vasculature. There is no evidence of elevated velocities to suggest significant stenosis IMPRESSION: Biphasic waveforms are noted throughout the right lower extremity. No evidence of high-grade stenosis or occlusion. ACT 112: Negative or not required by law. Electronically signed by: Reji Jones M.D. 01/25/2022 9:32 AM Lumbar Spine MRI 01/25/22 12:25 MR lumbar spine wo con CLINICAL HISTORY: suspected Right L5 or S1 radiculopathy TECHNIQUE: Multiplanar sequences through the lumbar spine were obtained, without intravenous contrast. Comparison: Comparison is made to MRI lumbar spine 01/09/2020 FINDINGS: Postoperative changes are again seen spanning T12-L4. L1-L2: No significant abnormality. L2-L3: Facet arthropathy is seen resulting in mild canal stenosis, AP diameter 8 mm. L3-L4: A broad-based posterior disc bulge is seen resulting in mild canal stenosis. L4-L5: Broad-based posterior disc bulge is seen resulting in mild canal and moderate bilateral neuroforaminal stenosis. L5-S1: Broad-based posterior disc bulge is seen resulting in mild canal and moderate bilateral neuroforaminal stenosis. The spinal ligaments are intact, without evidence of disruption or abnormal signal intensity. The spinal cord is normal in signal intensity and there is no evidence of cord contusion. There is no evidence of an extradural, intradural, extramedullary or intramedullary lesion. Bilateral renal cysts are seen. IMPRESSION: Stable postsurgical changes are seen. Degenerative changes are noted with up to moderate bilateral neural foraminal stenosis and mild canal stenosis, improved from prior exam. ACT 112: Negative or not required by law. Electronically signed by: Reji Jones M.D. 01/25/2022 2:27 PM Lumbar Spine X-Ray 01/25/22 12:25 LUMBAR SPINE 3 VIEWS CLINICAL HISTORY: Left foot pain. History of back surgery. FINDINGS: 3 views of the lumbar spine are compared to study dated 01/10/2020. The skeletal structures are osteopenic. There is no radiographic evidence of acute fracture or malalignment involving the lumbar spine. Vertebral body height and alignment are maintained. There is postoperative change from laminectomy and posterior fusion seen from T12-L4. Intrapedicle screws are present at all levels. The orthopedic hardware appears intact. Interposition bone graft material is noted. There is straightening of the lumbar lordosis. Anterior and lateral marginal osteophytes are seen throughout. Advanced disc space narrowing is seen at all lumbar levels between L1-L2 and L5-S1. Posterior disc osteophyte complexes are noted at L4-L5 and L5-S1. Advanced facet arthropathy is seen in the lower lumbar region. The visualized bony pelvis appears intact. Sclerotic change is noted in the sacroiliac joints. There is no bowel obstruction. Moderate fecal retention is seen throughout the colon. Cholecystectomy clips are noted in the right upper quadrant. There is advanced atherosclerotic calcification of the abdominal aorta. IMPRESSION: 1. No acute bony abnormality is seen involving the lumbar spine. 2. Osteopenia with postoperative and spondylotic change as above. Dictated: 01/25/2022 3:45 PM Transcribed: 01/25/2022 3:57 PM Hayde [id number] JUAN J_Dyllan Electronically signed by: Joey Patterson M.D. 01/25/2022 4:23 PM
--- NOTE | 2022-01-25 19:19 | Hospitalist Progress Note ---
Date of Service January 25, 2022 Assessment & Plan (1) Intractable neuropathic pain of foot: Plan: right foot - acute, severe, involving all toes and portion of distal mid-foot. this is in setting of baseline stocking-glove diabetic neuropathy. acute neuropathy is very different and much more severe than her baseline symptoms. differential - acute lumbar radiculopathy (has known DJD of back and has had lumbar surgery in the past with Dr Rodrigues) vs compressive neuropathy (tarsal tunnel syndrome, goodrich's neuroma, peroneal nerve injury - although the distribution of her numbness/pain is not entirely consistent with these etiologies). start with lumbar back x-rays and MRI. will obtain neurology consultation for their opinion. in the event this is lumbar radiculopathy will start dexamethasone 4mg IV BID. change gabapentin to 200mg TID. try lidocaine jelly - apply to toes, foot prn for topical pain relief. she did not respond to capsaicin cream in ER last pm. check a b12 level to be complete but b12 def neuropathy is typically not acute nor this painful. (2) T2DM (type 2 diabetes mellitus): Plan: with addition of steroids her BSGs are likely to be very high. will ask pharmacy to provide glycemic management. cont lantus and novolog in meantime. (3) Hypertension: Plan: continue home BP med regimen (4) Severe obstructive sleep apnea: Plan: qhs cpap (5) Chronic pulmonary aspiration: Plan: aspiration precautions determined by pulmonary several years ago (initially thought to be asthma; but actually was chronic aspiration) (6) GERD (gastroesophageal reflux disease): Plan: cont PPI bid (7) Thrombocytopenia: Plan: chronic low-grade ITP? (8) Diabetic peripheral neuropathy associated with type 2 diabetes mellitus: Plan: gabapentin - change dosing to 200mg TID for more consistent dosing/levels (9) Vitamin B12 deficiency: Plan: check a b12 level am (10) Chronic renal failure, stage 3b: Plan: baseline CrCl low 30s bmp in am for stability Plan daughter updated at bedside Admission and Anticipated Discharge Date Admission Date: January 25, 2022 Subjective patient was still in ER holding when I saw her on rounds daughter was at bedside she continues with severe neuropathic pain of right foot it involves most of the toes and about 2-3cm of mid-foot just proximal to the toes sharp, shooting, electric type shocks very painful she has baseline stocking-glove neuropathy with chronic numbness but this is much than baseline denies any back pain today, but she mentions that her left leg (posteriorly) has been bothering her lately she recounts the story of wearing tight fitting boots most of yesterday when she was bending down to take them off that is when the pain in the foot started denies any injury to the foot Review of Systems Review of Systems: gen - no fevers cv - no cp, no orthopnea pulm - no dyspnea GI - no pain, nausea or emesis Physical Exam Physical Exam: gen - waves of pain in her right foot; when the pain comes on she jerks the entire right foot in agony; awake, alert eyes - strabismus right eye (chronic) neck - no JVD mouth - MM dry heart - RRR, s1 s2 lungs - CTA b/l abd - soft NT ND BS+ ext - no edema, pulses both feet 2+, cap refill normal neuro - exquisite hyperalgesia to the lightest touch over all toes of right foot; hyperalgesia of 1-2cm of mid-foot proximal to the toes; hip flexion strength 5/5 b/l; patellar reflexes 2+ b/l; achilles reflexes 0 b/l skin - no rash of right foot; no heat or redness or swelling musculo - no pain over medial aspect of ankle/foot; no pain on plantar surface of foot Results & Data Results & Data ([facility]) Vital Signs (Past 12 Hours) Vital Signs Temp Pulse Pulse Resp BP BP Pulse Ox 01/25/22 17:14 36.4 C L 62 18 158/78 H 96 01/25/22 17:07 01/25/22 13:07 95 01/25/22 13:07 146/70 H 01/25/22 08:00 67 17 164/55 H 98 01/25/22 07:25 68 18 219/105 H 94 01/25/22 07:21 65 18 219/105 H 94 O2 Del Method 01/25/22 17:14 Room Air 01/25/22 17:07 Room Air 01/25/22 13:07 01/25/22 13:07 01/25/22 08:00 01/25/22 07:25 Room Air 01/25/22 07:21 Room Air Laboratory Results Laboratory Results - last 24 hr 01/25/22 01/25/22 01/25/22 00:00 00:00 00:00 WBC 6.36 RBC 4.86 Hgb 11.6 L Hct 36.9 MCV 75.9 L MCH 23.9 L MCHC 31.4 L RDW Std Deviation 39.5 RDW Coeff of Tim 14.7 H Plt Count 126 L MPV 9.5 Immature Gran % (Auto) 0.3 Neut % (Auto) 67.0 Lymph % (Auto) 23.6 [place] % (Auto) 7.2 Eos % (Auto) 1.1 Baso % (Auto) 0.8 Neut # (Auto) 4.26 Lymph # (Auto) 1.50 [place] # (Auto) 0.46 Eos # (Auto) 0.07 Baso # (Auto) 0.05 Immature Gran # (Auto) 0.02 PT 12.5 H INR 1.2 H APTT 25.6 PTT Ratio 0.9 Sodium 138 Potassium 3.8 Chloride 104 Carbon Dioxide 25 Anion Gap 9 BUN 39 H Creatinine 1.47 H Est Cr Clr Drug Dosing 31.5 Est GFR ( Amer) 38.4 Est GFR (Non-Af Amer) 33.1 BUN/Creatinine Ratio 26.5 H Glucose 82 POC Glucose Calcium 9.2 Magnesium Total Bilirubin 0.6 AST 17 ALT 13 Alkaline Phosphatase 68 Total Protein 7.0 Albumin 3.8 Globulin 3.2 Albumin/Globulin Ratio 1.2 SARS-CoV-2, RNA, NAAT 01/25/22 01/25/22 01/25/22 00:00 06:00 06:43 WBC RBC Hgb Hct MCV MCH MCHC RDW Std Deviation RDW Coeff of Tim Plt Count MPV Immature Gran % (Auto) Neut % (Auto) Lymph % (Auto) [place] % (Auto) Eos % (Auto) Baso % (Auto) Neut # (Auto) Lymph # (Auto) [place] # (Auto) Eos # (Auto) Baso # (Auto) Immature Gran # (Auto) PT INR APTT PTT Ratio Sodium Potassium Chloride Carbon Dioxide Anion Gap BUN Creatinine Est Cr Clr Drug Dosing Est GFR ( Amer) Est GFR (Non-Af Amer) BUN/Creatinine Ratio Glucose POC Glucose 126 H Calcium Magnesium 1.7 Total Bilirubin AST ALT Alkaline Phosphatase Total Protein Albumin Globulin Albumin/Globulin Ratio SARS-CoV-2, RNA, NAAT NEGATIVE 01/25/22 01/25/22 12:35 17:09 WBC RBC Hgb Hct MCV MCH MCHC RDW Std Deviation RDW Coeff of Tim Plt Count MPV Immature Gran % (Auto) Neut % (Auto) Lymph % (Auto) [place] % (Auto) Eos % (Auto) Baso % (Auto) Neut # (Auto) Lymph # (Auto) [place] # (Auto) Eos # (Auto) Baso # (Auto) Immature Gran # (Auto) PT INR APTT PTT Ratio Sodium Potassium Chloride Carbon Dioxide Anion Gap BUN Creatinine Est Cr Clr Drug Dosing Est GFR ( Amer) Est GFR (Non-Af Amer) BUN/Creatinine Ratio Glucose POC Glucose 182 H 152 H Calcium Magnesium Total Bilirubin AST ALT Alkaline Phosphatase Total Protein Albumin Globulin Albumin/Globulin Ratio SARS-CoV-2, RNA, NAAT PG Care Time/CCT Total # of Minutes Spent Total Time Spent with Patient: Total time spent is greater than 50% in coordination of care (as documented) at patient's floor/unit and/or counseling patient: Coding Level of Care Code 07272 Subseq Obs Care Lvl 3 Diagnoses Intractable neuropathic pain of foot M79.2 T2DM (type 2 diabetes mellitus) E11.9 Hypertension I10 Hypertension type: unspecified Severe obstructive sleep apnea G47.33 Chronic pulmonary aspiration T17.908A GERD (gastroesophageal reflux disease) K21.9 Thrombocytopenia D69.6 Diabetic peripheral neuropathy associated with type 2 diabetes mellitus E11.42 Vitamin B12 deficiency E53.8 Chronic renal failure, stage 3b N18.32 (1) Hypertension Hypertension type: unspecified Qualified Code(s): I10 - Essential (primary) hypertension
--- NOTE | 2022-01-25 20:57 | Billing Data ---
Date of Service January 25, 2022 Coding Level of Care Code 25885 Initial Inpt Care Lvl 3
[2022-01-25] MEDS ORDERED: GABAPENTIN 300 MG CAP PO SCH (21:00)
[2022-01-25] MEDS: dexAMETHasone 4 MG in SYRINGE 0 ML IV SCH (22:36)
[2022-01-25] MEDS: LIDOCAINE 2% JELLY 5 ML TUBE EXT SCH (22:37)
[2022-01-25] MEDS ORDERED: diphenhydrAMINE Capsule 25 MG CAP PO ONE (22:42)
[2022-01-26] MEDS: METOPROLOL SUCC 50MG EXT REL TAB PO SCH ×2 (00:16→20:41)
[2022-01-26] MEDS: PANTOprazole 40 MG TAB PO SCH ×3 (00:16→20:40)
[2022-01-26] MEDS: ESCITALOPRAM OXALATE 20 MG TAB PO SCH ×2 (00:16→20:41)
[2022-01-26] MEDS: MONTELUKAST SODIUM 10 MG TABLET PO SCH ×3 (00:16→20:40)
[2022-01-26] MEDS: INSULIN ASPART PER UNIT SC SCH ×6 (00:24→21:30)
[2022-01-26 08:20] LABS: Hematocrit (blood only) 40.4 % (34.1-44.9); Hemoglobin 12.7 g/dl (12.0-16.0); Mean Corpuscular Hemoglobin 23.7 pg (25.0-34.0); Mean Corpuscular Hgb Conc 31.4 g/dL (32.0-36.0); Mean Corpuscular Volume 75.4 fL (80.0-100.0); Mean Platelet Volume 9.8 fL (9.4-12.3); Platelet Count 130 K/uL (130-400); RDW Coefficient of Variation 14.6 % (11.5-14.5); RDW Standard Deviation 38.9 fL (36.4-46.3); Red Blood Count 5.36 M/uL (3.93-5.22); White Blood Count 7.54 K/ul (4.8-10.8)
[2022-01-26 08:53] LABS: BUN Creatinine Ratio 35.8 (10-20); Calcium 9.5 mg/dl (8.5-10.1); Creatinine Clr Calc Pharmacy 42.4 ml/min; Est GFR (African American) 55.1 ml/min; Est GFR (Non-African American) 47.6 ml/min; Potassium 4.5 mmol/L (3.5-5.1)
[2022-01-26] MEDS ORDERED: GABAPENTIN 100 MG CAP PO SCH (09:00)
[2022-01-26] MEDS: dexAMETHasone 4 MG in SYRINGE 0 ML IV SCH (09:14)
[2022-01-26] MEDS: LIDOCAINE 2% JELLY 5 ML TUBE EXT SCH ×3 (09:15→20:41)
[2022-01-26] MEDS: GABAPENTIN 100 MG CAP PO SCH ×3 (09:17→20:40)
[2022-01-26] MEDS: LANTUS PER UNIT CHARGE SQ SCH (09:20)
[2022-01-26] MEDS: CLOPIDOGREL BISULFATE 75 MG TAB PO SCH (10:37)
--- NOTE | 2022-01-26 10:39 | Hospitalist Progress Note ---
Date of Service January 26, 2022 Assessment & Plan (1) Intractable neuropathic pain of foot: Plan: neurology consult feels this is exacerbation of diabetic neuropathy, and gabapentin titrated doses MRI. MRI shows previous surgical intervention T12 L4 with improved but moderate spinal stenosis postsurgically Lumbar spine films did not show any compression fractures dexamethasone 4mg IV BID. will stop at this time Titrate and increase gabapentin to 200mg TID. greatly improved with gabapentin, try lidocaine topically she did not respond to capsaicin cream in ER last pm. (2) T2DM (type 2 diabetes mellitus): Plan: with addition of steroids cover her BSGs with ssi, stopping decadron today glycemic management. cont lantus and novolog in meantime. (3) Hypertension: Plan: continue home BP med regimen (4) Severe obstructive sleep apnea: Plan: qhs cpap (5) Chronic pulmonary aspiration: Plan: aspiration precautions determined by pulmonary several years ago (initially thought to be asthma; but actually was chronic aspiration) (6) GERD (gastroesophageal reflux disease): Plan: cont PPI bid (7) Thrombocytopenia: Plan: chronic low-grade ITP? (8) Diabetic peripheral neuropathy associated with type 2 diabetes mellitus: Plan: gabapentin - change dosing to 200mg TID for more consistent dosing/levels (9) Vitamin B12 deficiency: Plan: b12 level above normal level thiamine was low in october (10) Chronic renal failure, stage 3b: Plan: baseline CrCl low 30s bmp in am for stability Plan Pt feels gait is unsteady and will prevent her from transition from the hospital Admission and Anticipated Discharge Date Admission Date: January 25, 2022 Subjective pts foot feels improved her foot is much better, she feels unsteady to walking, and not sure if she can go home today Review of Systems Review of Systems: Mild distress and fatigue no headache, no visual changes no speech or swallowing issues no chest pain, pressure or palpitations no shortness of breath, cough or wheezes no abdominal pain, nausea or vomiting, diarrhea or constipation no dysuria, hematuria or frequency no focal joint pain or swelling no back pain, CVA tenderness or radicular pain no bruising, bleeding or rashes no focal signs of weakness or numbness or altered sensation she feels unsteady to gait no complaints of anxiety or depression.. Physical Exam Physical Exam: The patient appeared stable Vital signs as documented. Lungs are clear to auscultation and appear unlabored Cardiac exam, Rhythm is regular.. No murmurs, rubs or gallops. Abdominal exam reveals normal bowel sounds, soft non tender, no masses Extremities are nonedematous and both pedal pulses are normal. Neurologic exam is alert and oriented, no focal loss of strength or sensation Skin is without bruises or rashes Psychologically is without concerns for anxiety or depression. Results & Data Results & Data ([facility]) Vital Signs (Past 12 Hours) Vital Signs O2 Del Method 01/26/22 09:00 Room Air PG Care Time/CCT Total # of Minutes Spent Total Time Spent with Patient: Total time spent is greater than 50% in coordination of care (as documented) at patient's floor/unit and/or counseling patient: Coding Level of Care Code 22358 Subseq Hosp Care Lvl 2 Diagnoses Intractable neuropathic pain of foot M79.2 T2DM (type 2 diabetes mellitus) E11.9 Hypertension I10 Hypertension type: unspecified Severe obstructive sleep apnea G47.33 Chronic pulmonary aspiration T17.908A GERD (gastroesophageal reflux disease) K21.9 Thrombocytopenia D69.6 Diabetic peripheral neuropathy associated with type 2 diabetes mellitus E11.42 Vitamin B12 deficiency E53.8 Chronic renal failure, stage 3b N18.32 (1) Hypertension Hypertension type: unspecified Qualified Code(s): I10 - Essential (primary) hypertension
[2022-01-26] MEDS ORDERED: THIAMINE HCL 200 MG in SODIUM CHLORIDE 0.9% 50 ML IV STA (10:47)
[2022-01-26] MEDS: cefTRIAXone SODIUM 2,000 MG in DEXTROSE 5% 50 ML IV SCH (13:39)
--- NOTE | 2022-01-26 15:08 | Neurology Progress Note ---
Date of Service January 26, 2022 Assessment & Plan (1) Intractable neuropathic pain of foot: Plan: Impression: The patient has been having neuropathic pain of dorsal right distal foot. There is no additional symptoms or physical examination findings to suggest lumbosacral radiculopathy or peroneal neuropathy. Electric current type neuropathic pain comes and goes. The patient is currently asymptomatic. Reportedly, she wore old diabetic boots the day before yesterday, which might be the cause of compression on distal peripheral nerve fibers of right food. Lumbar sacral MRI study did not show any acute pathology. No similar pain since the admission Plan/recommendations: Titration of Gabapentin as needed and as she tolerates. Local anesthesic creams and ointments might be helpful. Avoidance from triggers like pressure, or walking for few days. --Consider tapering off Prednisone. If her symptoms persist, then follow-up with neurology clinic. --She has been symptom-free since the admission and we will sign off. (2) Diabetic peripheral neuropathy associated with type 2 diabetes mellitus: Plan: Impression: The patient has long history of. For polyneuropathy secondary to diabetes mellitus, with decreased sensation in distal lower extremities. Admission and Anticipated Discharge Date Admission Date: January 25, 2022 Subjective The patient denies sharp shooting pain in feet since admission. She has some dysesthesia in feet to pressure and touch. Apparently, she has baseline peripheral polyneuropathy. She reports feeling dizzy on higher dose of gabapentin. She is diagnosed with urinary tract infection and started on antibiotics. No new neurological symptoms. Review of Systems Review of Systems: All systems reviewed & are unremarkable except as noted in Subjective Physical Exam Physical Exam: General Examination: Constitutional: Well developed obese person in no acute distress. HENT: Normal exam with inspection. CV: Hearth rhythm is regular. Neck: Supple, no carotid bruits. Lungs: Non-labored and comfortable breathing. Abdomen: Soft, non-tender, non-distended. Skin: No rash or ecchymosis. Extremities: No edema or cyanosis NEUROLOGICAL EXAMINATION: Mental Status: Alert and oriented to place, person and time. Cranial Nerves: II-XII are intact. No nystagmus. Right eye exotropia is noticed. Funduscopy: Unable to visualize Motor: 5/5 in all extremities without asymmetry. More specifically, there is no weakness of ankle dorsiflexors, inverters, everters and plantar flexors. DTRs: 2+ in upper extremities, 1+ in knees and only trace in ankles symmetrically Tone: Normal without spasticity or rigidity. Sensory: Decreased sensation distal lower extremities up to mid calves to all sensory modalities. The patient has no neuropathic pain of right foot at this time. There is no sensory impairment of L5, peroneal nerve or sciatic nerve dermatomes. Coordination: No dysmetria with FTN testing. Speech: Fluent. Comprehension is intact. Gait: Not assessed. Musculoskeletal: Normal muscle bulk, no atrophy. Straight leg raising test induced some stretching on thighs and buttocks, but did not induce low back pain. There is no tenderness at the fibular head region. There is no ten derness at the tarsal tunnel region either. Results & Data ([facility]) Vital Signs (Past 12 Hours) Vital Signs Temp Pulse Resp BP Pulse Ox O2 Del Method 01/26/22 12:18 54 L 140/80 01/26/22 07:10 36.9 C 53 L 18 182/73 H 98 Room Air 01/26/22 09:00 Room Air Laboratory Results Laboratory Results - last 24 hr 01/25/22 01/25/22 01/26/22 17:09 20:34 05:40 WBC RBC Hgb Hct MCV MCH MCHC RDW Std Deviation RDW Coeff of Tim Plt Count MPV Sodium Potassium Chloride Carbon Dioxide Anion Gap BUN Creatinine Est Cr Clr Drug Dosing Est GFR ( Amer) Est GFR (Non-Af Amer) BUN/Creatinine Ratio Glucose POC Glucose 152 H 198 H 154 H Calcium Vitamin B12 01/26/22 01/26/22 01/26/22 07:57 07:57 07:57 WBC 7.54 RBC 5.36 H Hgb 12.7 Hct 40.4 MCV 75.4 L MCH 23.7 L MCHC 31.4 L RDW Std Deviation 38.9 RDW Coeff of Tim 14.6 H Plt Count 130 MPV 9.8 Sodium 139 Potassium 4.5 Chloride 104 Carbon Dioxide 27 Anion Gap 8 BUN 39 H Creatinine 1.09 D Est Cr Clr Drug Dosing 42.4 Est GFR ( Amer) 55.1 Est GFR (Non-Af Amer) 47.6 BUN/Creatinine Ratio 35.8 H Glucose 154 H POC Glucose Calcium 9.5 Vitamin B12 > 1500 H 01/26/22 01/26/22 08:10 12:09 WBC RBC Hgb Hct MCV MCH MCHC RDW Std Deviation RDW Coeff of Tim Plt Count MPV Sodium Potassium Chloride Carbon Dioxide Anion Gap BUN Creatinine Est Cr Clr Drug Dosing Est GFR ( Amer) Est GFR (Non-Af Amer) BUN/Creatinine Ratio Glucose POC Glucose 137 H 164 H Calcium Vitamin B12 Diagnostic Findings Duplex Scan Lower Extremity Artery 01/24/22 23:12 US arterial duplex LE RT CLINICAL HISTORY: pain TECHNIQUE: Real-time grayscale and color and spectral Doppler ultrasound imaging of the bilateral lower extremity arteries was performed. Measurements calculated based on NASCET criteria. COMPARISON: None available at the time of this dictation. FINDINGS: Biphasic waveforms are seen in the right lower extremity vasculature. There is no evidence of elevated velocities to suggest significant stenosis IMPRESSION: Biphasic waveforms are noted throughout the right lower extremity. No evidence of high-grade stenosis or occlusion. ACT 112: Negative or not required by law. Electronically signed by: Reji Jones M.D. 01/25/2022 9:32 AM Lumbar Spine MRI 01/25/22 12:25 MR lumbar spine wo con CLINICAL HISTORY: suspected Right L5 or S1 radiculopathy TECHNIQUE: Multiplanar sequences through the lumbar spine were obtained, without intravenous contrast. Comparison: Comparison is made to MRI lumbar spine 01/09/2020 FINDINGS: Postoperative changes are again seen spanning T12-L4. L1-L2: No significant abnormality. L2-L3: Facet arthropathy is seen resulting in mild canal stenosis, AP diameter 8 mm. L3-L4: A broad-based posterior disc bulge is seen resulting in mild canal stenosis. L4-L5: Broad-based posterior disc bulge is seen resulting in mild canal and moderate bilateral neuroforaminal stenosis. L5-S1: Broad-based posterior disc bulge is seen resulting in mild canal and moderate bilateral neuroforaminal stenosis. The spinal ligaments are intact, without evidence of disruption or abnormal signal intensity. The spinal cord is normal in signal intensity and there is no evidence of cord contusion. There is no evidence of an extradural, intradural, extramedullary or intramedullary lesion. Bilateral renal cysts are seen. IMPRESSION: Stable postsurgical changes are seen. Degenerative changes are noted with up to moderate bilateral neural foraminal stenosis and mild canal stenosis, improved from prior exam. ACT 112: Negative or not required by law. Electronically signed by: Reji Jones M.D. 01/25/2022 2:27 PM Lumbar Spine X-Ray 01/25/22 12:25 LUMBAR SPINE 3 VIEWS CLINICAL HISTORY: Left foot pain. History of back surgery. FINDINGS: 3 views of the lumbar spine are compared to study dated 01/10/2020. The skeletal structures are osteopenic. There is no radiographic evidence of acute fracture or malalignment involving the lumbar spine. Vertebral body height and alignment are maintained. There is postoperative change from laminectomy and posterior fusion seen from T12-L4. Intrapedicle screws are present at all levels. The orthopedic hardware appears intact. Interposition bone graft material is noted. There is straightening of the lumbar lordosis. Anterior and lateral marginal osteophytes are seen throughout. Advanced disc space narrowing is seen at all lumbar levels between L1-L2 and L5-S1. Posterior disc osteophyte complexes are noted at L4-L5 and L5-S1. Advanced facet arthropathy is seen in the lower lumbar region. The visualized bony pelvis appears intact. Sclerotic change is noted in the sacroiliac joints. There is no bowel obstruction. Moderate fecal retention is seen throughout the colon. Cholecystectomy clips are noted in the right upper quadrant. There is advanced atherosclerotic calcification of the abdominal aorta. IMPRESSION: 1. No acute bony abnormality is seen involving the lumbar spine. 2. Osteopenia with postoperative and spondylotic change as above. Dictated: 01/25/2022 3:45 PM Transcribed: 01/25/2022 3:57 PM Hayde [id number] JUAN J_Dyllan Electronically signed by: Joey Patterson M.D. 01/25/2022 4:23 PM
--- NOTE | 2022-01-26 17:00 | CT Scan Report ---
CT head/brain wo con CLINICAL HISTORY: 81 years-old Female with CONFUSION. Acutely altered mental status TECHNIQUE: Multiple axial CT images of the head were obtained without contrast. A dose lowering tech nique was utilized adhering to the principles of ALARA. CT DOSE: 767.83 mGy.cm COMPARISON: Head CT 05/19/2021 FINDINGS: No acute intracranial hemorrhage, midline shift, intra-axial mass, hydrocephalus, territorial ischemi a or abnormal extra-axial collection. Unchanged 1.6 cm calcified meningioma adjacent to the right fro ntal lobe, image 15. Involutional changes. White matter hypodensities suggestive of chronic microvasc ular ischemic disease. Senescent calcifications of the left lentiform nucleus. Study is motion degrad ed. Cerebral vascular calcifications. Chronic left cerebellar lacunar infarct. The calvarium is intact. Prior bilateral lens repair. The paranasal sinuses, mastoid air cells, and m iddle ear cavities are clear. IMPRESSION: No acute intracranial abnormality. ACT 112: Negative or not required by law. The above report was generated using voice recognition software. It may contain grammatical, syntax o r spelling errors. Electronically signed by: Frandy Pitts M.D. 01/26/2022 4:58 PM
[2022-01-26] MEDS: MELATONIN 3 MG TAB PO PRN (23:33)
[2022-01-27] MEDS: INSULIN ASPART PER UNIT SC SCH ×4 (08:35→21:23)
[2022-01-27] MEDS: CLOPIDOGREL BISULFATE 75 MG TAB PO SCH (08:40)
[2022-01-27] MEDS: GABAPENTIN 100 MG CAP PO SCH ×2 (08:41→21:24)
[2022-01-27] MEDS: THIAMINE HCL 100 MG TAB PO SCH (08:41)
[2022-01-27] MEDS: LIDOCAINE 2% JELLY 5 ML TUBE EXT SCH ×3 (08:41→21:24)
[2022-01-27] MEDS: PANTOprazole 40 MG TAB PO SCH ×2 (08:41→21:23)
[2022-01-27] MEDS: LANTUS PER UNIT CHARGE SQ SCH (08:47)
[2022-01-27] MEDS: HYDROCORTISONE 1% CRM 30 GM TUBE EXT PRN ×2 (12:24→21:23)
[2022-01-27] MEDS: cefTRIAXone SODIUM 2,000 MG in DEXTROSE 5% 50 ML IV SCH (12:34)
--- NOTE | 2022-01-27 14:24 | Pharmacy Report ---
Pharmacy Glycemic Short Note 2 - Date of Service January 27, 2022 - Glycemic Short BSG Results (Last 24 hours): 01/26/22 01/26/22 01/27/22 17:19 20:19 08:16 POC Glucose 116 H 135 H 91 01/27/22 12:09 POC Glucose 102 H OUTPATIENT ANTIDIABETIC REGIMEN: * Basaglar 40 units SQ qAM * Novolog 2 units with dinner ASSESSMENT: 01/27 * BSGs well controlled yesterday, dexamethasone was discontinued after AM dose * Fasting 91 mg/dL this morning, will continue home 40 units, may need to decrease if trend further down * Loosened novolog parameters to weight based stress of 2 this AM, may need further adjustments- monitor trend 01/25 * Ms Carvalho is an 81 y/o F with a PMH of T2DM who is insulin dependent. She presents with neuropathic pain in her R foot. * Patient was given 8 mg in the morning and started on 6 mg IV TID. * Patient's fasting was 126 mg/dL. * Patient was previously followed by glycemic service in 2018 and 2019 but this was when patient was on Lantus 32 units BID. Patient's outpatient regimen has vastly changed and patient has lost weight. * Patient given Lantus 30 units in the morning. Will provide additional 10 units with dinner to equal her home 40 units. * Novolog weight-based stress of 3. Will add on overnight checks to establish true 24 hour needs while on dexamethasone. PLAN FOR INPATIENT GLYCEMIC CONTROL: * Basal insulin * Lantus 40 units qAM * Bolus insulin * NovoLog per scale ACHS or Q6hrs while NPO * Goal Range: Low 110 mg/dL - High 140 mg/dL * Correction Factor: 25 mg/dL/unit * Nutritional / Prandial insulin per carb ratio of 1 unit per 8 grams CHO consumed
[2022-01-27 15:09] LABS: Basophils # (auto) 0.05 K/uL (0-0.2); Basophils % (auto) 0.7 %; Eosinophils # (auto) 0.09 K/uL (0-0.50); Eosinophils % (auto) 1.3 %; Hematocrit (blood only) 40.2 % (34.1-44.9); Hemoglobin 12.3 g/dl (12.0-16.0); Immature Granulocytes # (auto) 0.02 K/uL (0.00-0.02); Immature Granulocytes % (auto) 0.3 %; Lymphocytes # (auto) 2.09 K/uL (1.2-3.4); Lymphocytes % (auto) 29.7 %; Mean Corpuscular Hemoglobin 23.8 pg (25.0-34.0); Mean Corpuscular Hgb Conc 30.6 g/dL (32.0-36.0); Mean Corpuscular Volume 77.8 fL (80.0-100.0); Mean Platelet Volume 9.7 fL (9.4-12.3); Monocytes # (auto) 0.47 K/uL (0.24-0.82); Monocytes % (auto) 6.7 %; Neutrophils # (auto) 4.31 K/uL (1.4-6.5); Neutrophils % (auto) 61.3 %; Platelet Count 127 K/uL (130-400); RDW Coefficient of Variation 14.9 % (11.5-14.5); RDW Standard Deviation 41.2 fL (36.4-46.3); Red Blood Count 5.17 M/uL (3.93-5.22); White Blood Count 7.03 K/ul (4.8-10.8)
[2022-01-27 15:36] LABS: Troponin I High Sensitivity 14.2 pg/ml (0-14)
[2022-01-27 15:37] LABS: Albumin Level 3.8 gm/dl (3.4-5.0); BUN Creatinine Ratio 32.7 (10-20); Bilirubin,Total 0.4 mg/dl (0.2-1.0); C Reactive Protein 0.53 mg/dl (0-0.5); Calcium 9.6 mg/dl (8.5-10.1); Creatinine Clr Calc Pharmacy 29.6 ml/min; Est GFR (African American) 35.7 ml/min; Est GFR (Non-African American) 30.8 ml/min; Globulin 3.7 gm/dl (2.5-4.0); Magnesium 2.1 mg/dl (1.7-2.4); Phosphorus 4.6 mg/dl (2.5-4.9); Potassium 3.8 mmol/L (3.5-5.1); Total Protein 7.5 gm/dl (6.0-8.3)
--- NOTE | 2022-01-27 18:32 | Hospitalist Progress Note ---
Date of Service January 27, 2022 Assessment & Plan (1) Intractable neuropathic pain of foot: Plan: neurology consult feels this is exacerbation of diabetic neuropathy, and gabapentin titrated doses MRI. MRI shows previous surgical intervention T12 L4 with improved but moderate spinal stenosis postsurgically Lumbar spine films did not show any compression fractures dexamethasone 4mg IV BID. will stop at this time Titrate and increase gabapentin to 200mg TID. greatly improved with gabapentin, try lidocaine topically she did not respond to capsaicin cream in ER last pm. Now with all over body numbness and weakness - will stop the ceftriaxone as she feels this is a reaction to the antibiotic and also happened yesterday CBC, CMP, serial troponin x2, EKG with ectopic pacemaker but otherwise unremarkable. Stop ceftriaxone. (2) T2DM (type 2 diabetes mellitus): Plan: Appreciate pharmacy glycemic management. HbA1C 6.0 No longer on steroids so should be easier to control (3) Hypertension: Plan: continue home BP med regimen (4) Severe obstructive sleep apnea: Plan: qhs cpap (5) Chronic pulmonary aspiration: Plan: aspiration precautions determined by pulmonary several years ago (initially thought to be asthma; but actually was chronic aspiration) (6) GERD (gastroesophageal reflux disease): Plan: cont PPI bid (7) Thrombocytopenia: Plan: chronic low-grade ITP? (8) Diabetic peripheral neuropathy associated with type 2 diabetes mellitus: Plan: gabapentin - change dosing to 200mg TID for more consistent dosing/levels (9) Vitamin B12 deficiency: Plan: b12 level above normal level thiamine was low in october (10) Chronic renal failure, stage 3b: Plan: baseline CrCl low 30s Plan Pt feels gait is unsteady and will prevent her from transition from the hospital PT/OT, planning on returning to the [facility] Admission and Anticipated Discharge Date Admission Date: January 25, 2022 Subjective Patient lying in bed reporting overall body weakness and numbness. Claims she is unable to move anything but then moves her arms. She feels she is having a reaction to the antibiotic and requests the antidote. Reports chest heaviness. Vital signs stable. Medication allergy list extensive. Difficult to get an accurate history as she repeatedly just asks me to help her and that she is numb and weak all over despite me asking about her bowels for example. Reports similar effect from antibiotic yesterday which improved throughout the day. Unclear whether she ever had any urinary symptoms prompting antibiotic use as patient not answering questions at this time. Review of Systems Review of Systems: All systems reviewed & are unremarkable except as noted in Subjective Physical Exam Constitutional: well developed and + acute distress (pain, numbness and weakness all over) Eyes: clear strabismus of right eye but unable to open her eyes long enough to assess pupil reflex Respiratory: normal respiratory effort, lungs clear to auscultation Cardiovascular: RRR, no murmur, no edema Gastrointestinal (Abdomen): normal bowel sounds, soft, nontender, no hepatosplenomegaly Musculoskeletal: unable to move any limbs against gravity when tested formally, hard candy spinner strength 2/5 b/l equal, able to move arms against gravity when not testing but not for prolonged periods Skin: no rashes, warm and dry Neurologic: moves all extremities and awake (drowsy); not confused Psychiatric: Orientation: alert; + not oriented x 3 (unable to assess as just tells me about her numbness and weakness) Results & Data Results & Data ([facility]) Vital Signs (Past 12 Hours) Vital Signs Temp Pulse Resp BP Pulse Ox O2 Del Method O2 Flow Rate 01/27/22 15:22 36.4 C L 54 L 18 136/73 96 Room Air 01/27/22 13:01 36.4 C L 55 L 12 130/76 98 Room Air 01/27/22 07:35 Nasal Cannula 2 01/27/22 07:17 36.5 C 51 L 18 119/76 100 Nasal Cannula 2 PG Care Time/CCT Total # of Minutes Spent Total Time Spent with Patient: Total time spent is greater than 50% in coordination of care (as documented) at patient's floor/unit and/or counseling patient: Coding Level of Care Code 84621 Subseq Hosp Care Lvl 1 Diagnoses Intractable neuropathic pain of foot M79.2 T2DM (type 2 diabetes mellitus) E11.9 Hypertension I10 Hypertension type: unspecified Severe obstructive sleep apnea G47.33 Chronic pulmonary aspiration T17.908A GERD (gastroesophageal reflux disease) K21.9 Thrombocytopenia D69.6 Diabetic peripheral neuropathy associated with type 2 diabetes mellitus E11.42 Vitamin B12 deficiency E53.8 Chronic renal failure, stage 3b N18.32 (1) Hypertension Hypertension type: unspecified Qualified Code(s): I10 - Essential (primary) hypertension
[2022-01-27] MEDS: ESCITALOPRAM OXALATE 20 MG TAB PO SCH (21:23)
[2022-01-27] MEDS: MONTELUKAST SODIUM 10 MG TABLET PO SCH (21:24)
[2022-01-27] MEDS: METOPROLOL SUCC 50MG EXT REL TAB PO SCH (21:24)
[2022-01-27] MEDS: MELATONIN 3 MG TAB PO PRN (22:46)
[2022-01-28] MEDS ORDERED: LANTUS PER UNIT CHARGE SQ SCH (09:00)
[2022-01-28] MEDS: THIAMINE HCL 100 MG TAB PO SCH (09:02)
[2022-01-28] MEDS: PANTOprazole 40 MG TAB PO SCH ×2 (09:02→21:18)
[2022-01-28] MEDS: CLOPIDOGREL BISULFATE 75 MG TAB PO SCH (09:02)
[2022-01-28] MEDS: LIDOCAINE 2% JELLY 5 ML TUBE EXT SCH ×3 (09:02→21:19)
[2022-01-28] MEDS: GABAPENTIN 100 MG CAP PO SCH ×2 (09:02→14:22)
[2022-01-28] MEDS: INSULIN ASPART PER UNIT SC SCH ×4 (09:03→21:19)
[2022-01-28] MEDS ORDERED: ALUMINUM/MAGNESIUM/SIMETH (MAALOX MAX) 30 ML UDC PO PRN (12:20)
[2022-01-28] MEDS ORDERED: ONDANSETRON INJ 2 MG/ML 2 ML VIAL IV PRN (12:20)
[2022-01-28] MEDS ORDERED: ALUMINUM/MAGNESIUM/SIMETH (MAALOX MAX) 30 ML UDC PO STA (12:20)
--- NOTE | 2022-01-28 13:02 | Hospitalist Progress Note ---
Date of Service January 28, 2022 Assessment & Plan (1) Intractable neuropathic pain of foot: Plan: neurology consult feels this is exacerbation of diabetic neuropathy, and gabapentin titrated doses MRI. MRI shows previous surgical intervention T12 L4 with improved but moderate spinal stenosis postsurgically Lumbar spine films did not show any compression fractures dexamethasone 4mg IV BID - now discontinued Titrate and increase gabapentin (see below) try lidocaine topically she did not respond to capsaicin cream in ER on admission. (2) Spell of generalized weakness: Plan: Unclear what caused her all over body weakness and numbness yesterday but she clearly sees an association with being given ceftriaxone. No urticaria, anaphylaxis or swelling to suggest hypersensitivity reaction. Associated bradycardia with ectopic pacemaker, nausea today, ptosis, severe muscle weakness resembles a myasthenia crisis although appears to have rapidly reversed. She was also given dexamethasone which can precipitate a crisis although was not given this yesterday. Regardless given her multiple drug "allergies" this could be precipitating an underlying neurological condition rather than true allergies therefore will send off for myasthenia antibodies but no need to treat since she is back to her baseline. (3) UTI (urinary tract infection): Plan: Symptom of dysuria, now resolved. Ceftriaxone caused generalized weakness as above. Previously ok with Keflex. Will finish up 7 day course with this. Present on Admission?: Yes (4) T2DM (type 2 diabetes mellitus): Plan: Appreciate pharmacy glycemic management. HbA1C 6.0 No longer on steroids so should be easier to control (5) Hypertension: Plan: continue home BP med regimen (6) Severe obstructive sleep apnea: Plan: qhs cpap (7) Chronic pulmonary aspiration: Plan: aspiration precautions determined by pulmonary several years ago (initially thought to be asthma; but actually was chronic aspiration) (8) GERD (gastroesophageal reflux disease): Plan: cont PPI bid (9) Thrombocytopenia: Plan: chronic low-grade ITP? (10) Diabetic peripheral neuropathy associated with type 2 diabetes mellitus: Plan: gabapentin - patient requests changing to 100mg QAM, 100mg at lunch and 200mg in the evenings (11) Vitamin B12 deficiency: Plan: b12 level above normal level thiamine was low in october (12) Chronic renal failure, stage 3b: Plan: baseline CrCl low 30s Plan Pt feels gait is unsteady and will prevent her from transition from the hospital PT/OT, planning on returning to the [facility] - suspect will be ready for discharge tomorrow Admission and Anticipated Discharge Date Admission Date: January 27, 2022 Subjective Patient reports significant recovery after ceftriaxone given yesterday. Not quite back to her baseline and does not feel safe to go back to assisted living at this time. Dysuria has completely resolved. No fever or chills. She reports never having this reaction to any other medications in the past. Review of Systems Review of Systems: All systems reviewed & are unremarkable except as noted in Subjective Physical Exam Constitutional: well developed and well nourished; no acute distress Respiratory: normal respiratory effort, lungs clear to auscultation Cardiovascular: RRR, no murmur, no edema Gastrointestinal (Abdomen): normal bowel sounds, soft, nontender, no hepatosplenomegaly Musculoskeletal: no cyanosis or clubbing, extremities motor strength 5/5 Skin: no rashes, warm and dry Neurologic: moves all extremities and awake; no focal motor deficits and not confused Psychiatric: Orientation: alert and oriented x 3 Results & Data Results & Data ([facility]) Vital Signs (Past 12 Hours) Vital Signs Temp Pulse Resp BP Pulse Ox O2 Del Method O2 Flow Rate 01/28/22 07:00 36.4 C L 51 L 18 114/61 98 Nasal Cannula 2 PG Care Time/CCT Total # of Minutes Spent Total Time Spent with Patient: Total time spent is greater than 50% in coordination of care (as documented) at patient's floor/unit and/or counseling patient: Coding Level of Care Code 14444 Subseq Hosp Care Lvl 2 Diagnoses Intractable neuropathic pain of foot M79.2 Spell of generalized weakness R53.1 UTI (urinary tract infection) N39.0 T2DM (type 2 diabetes mellitus) E11.9 Hypertension I10 Hypertension type: unspecified Severe obstructive sleep apnea G47.33 Chronic pulmonary aspiration T17.908A GERD (gastroesophageal reflux disease) K21.9 Thrombocytopenia D69.6 Diabetic peripheral neuropathy associated with type 2 diabetes mellitus E11.42 Vitamin B12 deficiency E53.8 Chronic renal failure, stage 3b N18.32 (1) Hypertension Hypertension type: unspecified Qualified Code(s): I10 - Essential (primary) hypertension
[2022-01-28] MEDS: cephALEXin 250 MG CAP PO SCH ×2 (14:22→21:19)
[2022-01-28] MEDS ORDERED: GABAPENTIN 100 MG CAP PO SCH (21:00)
[2022-01-28] MEDS: ESCITALOPRAM OXALATE 20 MG TAB PO SCH (21:16)
[2022-01-28] MEDS: MONTELUKAST SODIUM 10 MG TABLET PO SCH (21:18)
[2022-01-28] MEDS: METOPROLOL SUCC 50MG EXT REL TAB PO SCH (21:18)
[2022-01-29] MEDS: MELATONIN 3 MG TAB PO PRN (01:01)
--- NOTE | 2022-01-29 06:19 | Electrocardiogram Report ---
Test Reason : Blood Pressure : / mmHG Vent. Rate : 053 BPM Atrial Rate : 053 BPM P-R Int : 150 ms QRS Dur : 090 ms QT Int : 474 ms P-R-T Axes : 146 139 122 degrees QTc Int : 444 ms Normal sinus rhythm Probable Limb lead reversal Nonspecific T wave abnormality Abnormal ECG When compared with ECG of 19-MAY-2021 20:00, Nonspecific T wave abnormality now evident in Inferior leads Limb lead reversal is now likely Confirmed by Wilfrido Bustamante ([id number]) on 01/29/2022 6:18:52 AM Referred By: REFERRED SELF Confirmed By:Wilfrido Bustamante
[2022-01-29] MEDS: cephALEXin 250 MG CAP PO SCH ×2 (08:50→13:08)
[2022-01-29] MEDS: CLOPIDOGREL BISULFATE 75 MG TAB PO SCH (08:50)
[2022-01-29] MEDS: GABAPENTIN 100 MG CAP PO SCH ×2 (08:50→13:08)
[2022-01-29] MEDS: INSULIN ASPART PER UNIT SC SCH ×2 (08:50→13:09)
[2022-01-29] MEDS: THIAMINE HCL 100 MG TAB PO SCH (08:50)
[2022-01-29] MEDS: PANTOprazole 40 MG TAB PO SCH (08:50)
[2022-01-29] MEDS: LIDOCAINE 2% JELLY 5 ML TUBE EXT SCH ×2 (08:51→13:08)
--- NOTE | 2022-01-29 11:50 | Discharge Summary ---
Date of Service January 29, 2022 Admission HPI Per Admitting Provider 81 y/o female w/ PMHx of foot neuropathy, HTN, CAMRON, asthma, GERD, HLD, chronic aspiration, anticoagulation use, neurogenic claudication from lumbar spinal stenosis, anxiety, ckd, DM2 who presents w/ intractable dorsal right foot sharp/lightning pain that started today. She states that the pain at her right foot involves the dorsum of her second through fifth toes and involved just proximal to that region. It is sharp stabbing and electric like. The pain is much worse than her prior neuropathic pains. Preceding this, she wore an old diabetic boot today that she has not worn in a long time and daughter believes that this may have preceded the onset of the current symptoms. She denies any fever chills, chest pain, SOB, or infectious symptoms. She states that she was on large doses of gabapentin in the past but it affected her breathing so this was decreased to her current approximately 100 mg 4 times daily dosing since approximately 6 months ago. She has had mild visual hallucinations after the Ativan, but otherwise has been at mental baseline and without confusion per daughter. History obtained from patient and daughter at bedside. ED course: morphine 4mg IV. Ativan 0.5mg IV. Decadron 8mg IV. Principal Diagnosis Compression neuropathy Urine tract infection Discharge Exam Constitutional well developed and well nourished; no acute distress Respiratory normal respiratory effort, lungs clear to auscultation Cardiovascular RRR, no murmur, no edema Gastrointestinal (Abdomen) normal bowel sounds, soft, nontender, no hepatosplenomegaly Musculoskeletal no cyanosis or clubbing, extremities motor strength 5/5 Skin no rashes, warm and dry Neurologic moves all extremities and awake; no focal motor deficits and not confused Psychiatric Orientation: alert and oriented x 3 Discharge Data Allergies Allergy/AdvReac Type Severity Reaction Status Date / Time cantaloupe Allergy Severe THROAT Verified 02/08/22 11:52 CLOSES celecoxib [From Celebrex] Allergy Severe CAUSED Verified 02/08/22 11:52 STROKE melon Allergy Severe THROAT Verified 02/08/22 11:52 CLOSES meperidine Allergy Severe almost Verified 02/08/22 11:52 "closed throat" midodrine Allergy Severe "almost Verified 02/08/22 11:52 closed throat" Penicillins Allergy Severe ANAPHYLAXIS Verified 02/08/22 11:52 sulfamethoxazole Allergy Severe THROAT Verified 02/08/22 11:52 CLOSED trimethoprim Allergy Severe THROAT Verified 02/08/22 11:52 CLOSED watermelon Allergy Severe THROAT Verified 02/08/22 11:52 CLOSES diphenoxylate Allergy Intermediate Unknown Verified 02/08/22 11:52 metronidazole [From Flagyl] Allergy Intermediate Hives Verified 02/08/22 11:52 DENILSON Inhibitors Allergy Unknown unknown to Verified 02/08/22 11:52 pt atropine Allergy Unknown Unknown Verified 02/08/22 11:52 carvedilol Allergy Unknown Unknown Verified 02/08/22 11:52 clonazepam [From Klonopin] Allergy Unknown Unknown Verified 02/08/22 11:52 doxycycline Allergy Unknown Unknown Verified 02/08/22 11:52 furosemide [From Lasix] Allergy Unknown Unknown Verified 02/08/22 11:52 Histamine H2 Inhibitors Allergy Unknown unknown to Verified 02/08/22 11:52 pt Iodinated Contrast Media Allergy Unknown JULY 2017 Verified 02/08/22 11:52 [facility] -- TOLERATED WITH SLOW INFUSION PER PATIENT nitrofurantoin Allergy Unknown Unknown Verified 02/08/22 11:52 phenazopyridine Allergy Unknown Unknown Verified 02/08/22 11:52 ranitidine Allergy Unknown Unknown Verified 02/08/22 11:52 repaglinide Allergy Unknown Unknown Verified 02/08/22 11:52 rosiglitazone Allergy Unknown Unknown Verified 02/08/22 11:52 tolterodine [From Detrol] Allergy Unknown Unknown Verified 02/08/22 11:52 ciprofloxacin [From Cipro] AdvReac Severe throat Verified 02/08/22 11:52 swelling citalopram [From Celexa] AdvReac Severe SEE COMMENT Verified 02/08/22 11:52 diazepam AdvReac Severe SEDATION Verified 02/08/22 11:52 LASTING TOO LONG prednisone AdvReac Severe BSG Verified 02/08/22 11:52 ELEVATED TO THE 500'S glyburide AdvReac Intermediate SEVERE Verified 02/08/22 11:52 ABDOMINAL PAIN meloxicam [From Mobic] AdvReac Intermediate SICK TO Verified 02/08/22 11:52 STOMACH metformin AdvReac Intermediate SEVERE Verified 02/08/22 11:52 ABDOMINAL PAIN oxycodone AdvReac Intermediate SEVERE Verified 02/08/22 11:52 WITHDRAWAL SYMPTOMS WHEN TRYING TO STOP TAKING paroxetine AdvReac Intermediate DID NOT Verified 02/08/22 11:52 HELP temazepam AdvReac Intermediate DID NOT Verified 02/08/22 11:52 HELP tramadol AdvReac Intermediate Vomiting Verified 02/08/22 11:52 albuterol AdvReac Unknown UNK Verified 02/08/22 11:52 carbamazepine AdvReac Unknown Unknown Verified 02/08/22 11:52 ibuprofen AdvReac Unknown Unknown Verified 02/08/22 11:52 lisinopril AdvReac Unknown UNK Verified 02/08/22 11:52 mirtazapine AdvReac Unknown Unknown Verified 02/08/22 11:52 olanzapine AdvReac Unknown Unknown Verified 02/08/22 11:52 rofecoxib AdvReac Unknown Unknown Verified 02/08/22 11:52 valproic acid AdvReac Unknown Unknown Verified 02/08/22 11:52 ceftriaxone AdvReac Verified 02/08/22 11:52 Consultations 01/25/22 03:50 ED Decision to Admit Stat 01/25/22 15:46 Consult Neurology Routine Ordered Studies 01/24/22 23:12 US arterial duplex LE RT Urgent IMPRESSION: Biphasic waveforms are noted throughout the right lower extremity. No evidence of high-grade stenosis or occlusion. 01/25/22 12:25 MR lumbar spine wo con Urgent IMPRESSION: Stable postsurgical changes are seen. Degenerative changes are noted with up to moderate bilateral neural foraminal stenosis and mild canal stenosis, improved from prior exam. 01/26/22 16:19 CT head/brain wo con Routine IMPRESSION: No acute intracranial abnormality. Hospital Course (1) Intractable neuropathic pain of foot: Liv Moulton is an 81 year old female admitted to [facility] from January 25 - 2021 due to right foot pain. She was diagnosed with suspected acute compressive neuropathy due to ill fitting boot. This improved over time and with her usual gabapentin dosing. She also had painful urination and was diagnosed with a urine tract infection. This was treated initially with ceftriaxone which caused profound weakness and numbness therefore myasthenia antibodies have been sent - please follow these up in clinic. She recovered with discontinuation of ceftriaxone and was switched to oral Keflex which has previously tolerated well. (2) Spell of generalized weakness: (3) UTI (urinary tract infection): (4) T2DM (type 2 diabetes mellitus): (5) Hypertension: (6) Severe obstructive sleep apnea: (7) Chronic pulmonary aspiration: (8) GERD (gastroesophageal reflux disease): (9) Thrombocytopenia: (10) Diabetic peripheral neuropathy associated with type 2 diabetes mellitus: (11) Vitamin B12 deficiency: (12) Chronic renal failure, stage 3b: Total Time Total Time Spent Total Time Spent (In Minutes): 35 Discharge Plan Discharge Items Patient Disposition: [facility] Reason For Visit: DORSAL RIGHT FOOT NEUROPATHIC PAIN Discharge Diagnosis: Compression neuropathy Urine tract infection Activity: Resume your previous activity Non-emergency contact: Primary Care Provider Call non-emergency contact if: you have any medication questions and your symptoms worsen Follow-up/Referrals: Darwin Lugo III, CRNP [Primary Care Provider] - 02/01/22 4:20 pm Diet: Carb Consistent or DM2 and Low Sodium (2gm) Addtl Attending Provider Instructions: You were admitted to [facility] from January 25 - 2021 due to right foot pain. You were diagnosed with suspected acute compressive neuropathy due to ill fitting boot. This improved over time and with your usual gabapentin. You also had painful urination and were diagnosed with a urine tract infection. This was treated initially with ceftriaxone which caused profound weakness and numbness therefore myasthenia antibodies have been sent - please follow up with your primary care physician regarding this. You recovered with discontinuation of ceftriaxone and were switched to oral Keflex which you have previously tolerated well. Please finish the course as prescribed. Regarding your diabetes; HbA1C 6.0. Please continue on your usual insulin regimen. Please follow up with your primary care physician for ongoing management of this. Pending Studies at Discharge: Yes (Myasthenia Antibody labs) Stand-Alone Forms: [facility], Smoking Cessation Medications and DC Order Prescriptions: Continued cholecalciferol (vitamin D3) [Vitamin D3] 125 mcg (5,000 unit) tablet 5,000 unit PO QAM Qty: 30 5RF metoprolol succinate [Toprol XL] 50 mg tablet extended release 24 hr 50 mg PO QPM Qty: 90 1RF epinephrine 0.3 mg/0.3 mL auto-injector 0.3 mg IM DIRECTED PRN (Reason: Anaphylaxis) Qty: 1 0RF hydrocortisone 1 % cream 1 applic topical BID PRN (Reason: Itching) Qty: 28.4 2RF fluocinolone 0.01 % shampoo 30 ml topical 2XWK PRN (Reason: scalp irritation ) Qty: 120 1RF (DME) pen needle, diabetic [BD Ultra-Fine Short Pen Needle] 31 gauge x 5/16" needle See Rx Instructions .ROUTE .MEDSUPPLY Qty: 100 3RF Rx Instructions: Use as directed 1 per day with insulin injection cyanocobalamin (vitamin B-12) [Vitamin B-12] 1,000 mcg tablet 1,000 mcg PO DAILY Qty: 90 1RF (DME) OneTouch Ultra Test Strip See Rx Instructions .Route Qty: 200 2RF Rx Instructions: Test 4 times a day montelukast [Singulair] 10 mg tablet 10 mg PO QPM Qty: 90 3RF pantoprazole 40 mg tablet,delayed release (DR/EC) 40 mg PO BID Qty: 180 3RF pravastatin 40 mg tablet 40 mg PO .EVERY 48 HOURS Qty: 90 1RF clopidogrel [Plavix] 75 mg tablet 75 mg PO QAM Qty: 90 3RF escitalopram oxalate 20 mg tablet 20 mg PO HS Qty: 90 3RF gabapentin 100 mg capsule See Rx Instructions PO .COMPLEX Qty: 360 3RF Rx Instructions: orally; 100 mg with breakfast and lunch and 200 mg with dinner loperamide 2 mg capsule 4 mg PO UD PRN (Reason: Diarrhea) Qty: 20 0RF Rx Instructions: take 2 capsules after first diarrhea (DME) lancets Misc See Rx Instructions .ROUTE .MEDSUPPLY Qty: 100 [place]: [place] [place] Dexcom G6 Sensor Device See Rx Instructions .ROUTE .MEDSUPPLY Qty: 3 Rx Instructions: [place] directed [place] Dexcom G6 Track Equipment Operator Misc See Rx Instructions .ROUTE .MEDSUPPLY Qty: 1 Rx Instructions: [place] directed [place] Dexcom G6 Transmitter Device See Rx Instructions .ROUTE .MEDSUPPLY Qty: 1 Rx Instructions: As directed ipratropium bromide 21 mcg (0.03 %) spray,non-aerosol 2 spray intranasal DAILY Qty: 30 2RF Rx Instructions: administer into each nostril oxybutynin chloride 5 mg tablet 5 mg PO TID PRN (Reason: bladder spasms) Qty: 90 3RF nitroglycerin 0.4 mg tablet, sublingual 0.4 mg sublingual DIRECTED PRN (Reason: Chest Pain) Qty: 30 0RF Rx Instructions: PLACE ONE TABLET UNDER THE TONGUE EVERY 5 MINUTES FOR UP TO 3 DOSES OVER 15 MINUTES IF NEEDED FOR CHEST PAIN ondansetron HCl 4 mg tablet 4 mg PO Q6H PRN (Reason: nausea and vomiting) Qty: 30 3RF docusate sodium [Colace] 100 mg capsule 100 mg PO BID PRN (Reason: Constipation) albuterol sulfate [Ventolin HFA] 90 mcg/actuation HFA aerosol inhaler 1 puff INHALATION Q4H PRN (Reason: Wheezing) polyethylene glycol 3350 [Miralax] 17 gram/dose powder 17 g PO DAILY PRN (Reason: constipation) Qty: 119 0RF insulin aspart U-100 [Novolog Flexpen U-100 Insulin] 100 unit/mL (3 mL) insulin pen 2 unit subcut QDD Rx Instructions: Take 2 units daily with evening meal. diclofenac sodium 1 % gel See Rx Instructions .ROUTE .COMPLEX PRN (Reason: JOINT PAIN) Rx Instructions: APPLY 4GM TOPICALLY TO SINGLE KNEE, ANKLE, AND FOOT (FOOT INCLUDES SOLE/TOES/TOP OF FOOT) FOUR TIMES DAILY NEEDED FOR JOINT PAIN insulin glargine [Basaglar KwikPen U-100 Insulin] 100 unit/mL (3 mL) insulin pen SUBCUT diphenhydramine HCl [Benadryl Allergy] 25 mg tablet 25 mg PO DAILY PRN (Reason: itching) lidocaine [Salonpas (lidocaine)] 4 % Adhesive Patch,Medicated 2 patch TOPICAL UD PRN (Reason: Pain) Rx Instructions: apply 2 patches to back on for 12 hours off for 12 hours Lactaid Fast Act 9,000 unit Tablet 9,000 unit PO QID PRN (Reason: Lactose Intolerance) Rx Instructions: administer with meals and snacks melatonin 3 mg Tablet,Disintegrating 3 mg PO HS PRN (Reason: Insomnia) diphenoxylate-atropine [Lomotil] 2.5-0.025 mg Tablet 1 tab PO BID PRN (Reason: Diarrhea) acetaminophen 500 mg tablet 1,000 mg PO Q6H MDD 3g PRN (Reason: mild pain/fever) Discontinued cephalexin 500 mg tablet 500 mg PO TID 7 Days Qty: 21 0RF No Action Myrbetriq 25 mg tablet extended release 24 hr 25 mg PO DAILY Rx Instructions: Per task from Darwin on 01/30/22 to continue. Discharge Orders: Discharge Order (Routine); Ordered 01/29/22 Ordered By: Silverio Maria/Other Patient Handouts: Urinary Tract Infections in Women Admission Data Admit Date/Time: 01/27/22 18:46 Attending Provider: Silverio Pritchard Admit Provider: Ziyad Gauthier Primary Care Provider: Darwin Lugo III Other Providers: Rigo Broderick ; Vishal Edwards Other Interventions: Discharge Summary Assessment (RN) Last Done: 01/29/22 13:01 Coding Level of Care Code D/C DAY MANAGEMENT >30 MINS Diagnoses Intractable neuropathic pain of foot M79.2 Spell of generalized weakness R53.1 UTI (urinary tract infection) N39.0 T2DM (type 2 diabetes mellitus) E11.9 Hypertension I10 Hypertension type: unspecified Severe obstructive sleep apnea G47.33 Chronic pulmonary aspiration T17.908A GERD (gastroesophageal reflux disease) K21.9 Thrombocytopenia D69.6 Diabetic peripheral neuropathy associated with type 2 diabetes mellitus E11.42 Vitamin B12 deficiency E53.8 Chronic renal failure, stage 3b N18.32
[2022-01-29] MEDS ORDERED: LANTUS PER UNIT CHARGE SQ SCH (12:30)
--- NOTE | 2022-01-30 10:52 | Electrocardiogram Report ---
Test Reason : Blood Pressure : / mmHG Vent. Rate : 055 BPM Atrial Rate : 055 BPM P-R Int : 152 ms QRS Dur : 090 ms QT Int : 464 ms P-R-T Axes : 141 139 100 degrees QTc Int : 443 ms Suspect arm lead reversal, interpretation assumes no reversal Sinus bradycardia Left posterior fascicular block Abnormal ECG Confirmed by Pankaj Allison ([id number]) on 01/30/2022 10:51:59 AM Referred By: REFERRED SELF Confirmed By:Hector Allison
[2022-02-10 14:01] LABS: Anti-Striated Muscle NEGATIVE (NEGATIVE); Receptor Binding Ab <0.30 nmol/L
== END 2022-01-29 14:25 | disposition home or self-care (01) | DRG 74 ==
LOC: ED 22:25 → EDINP 22:25 → SUATTDRO 01-25 05:01 → 3N 01-25 07:10

== ENCOUNTER 2022-02-16 09:34 | Inpatient (IN) ==
[2022-02-16] MEDS ORDERED: ONDANSETRON INJ 2 MG/ML 2 ML VIAL IV STA (09:52)
[2022-02-16] MEDS ORDERED: SODIUM CHLORIDE 0.9% 500 ML IV SCH (10:00)
[2022-02-16 10:09] LABS: Basophils # (auto) 0.02 K/uL (0-0.2); Basophils % (auto) 0.3 %; Eosinophils # (auto) 0.19 K/uL (0-0.50); Eosinophils % (auto) 2.7 %; Hematocrit (blood only) 37.7 % (34.1-44.9); Hemoglobin 11.7 g/dl (12.0-16.0); Immature Granulocytes # (auto) 0.04 K/uL (0.00-0.02); Immature Granulocytes % (auto) 0.6 %; Lymphocytes # (auto) 0.67 K/uL (1.2-3.4); Lymphocytes % (auto) 9.7 %; Mean Corpuscular Hemoglobin 23.9 pg (25.0-34.0); Mean Corpuscular Volume 76.9 fL (80.0-100.0); Mean Platelet Volume 9.1 fL (9.4-12.3); Monocytes % (auto) 7.2 %; Neutrophils % (auto) 79.5 %; Platelet Count 106 K/uL (130-400); RDW Standard Deviation 41.3 fL (36.4-46.3); White Blood Count 6.92 K/ul (4.8-10.8)
[2022-02-16 10:34] LABS: Albumin Globulin Ratio 1.1 (0.9-2); Albumin Level 3.6 gm/dl (3.4-5.0); BUN Creatinine Ratio 18.5 (10-20); Bilirubin,Total 1.7 mg/dl (0.2-1.0); Calcium 8.6 mg/dl (8.5-10.1); Creatinine Clr Calc Pharmacy 30.8 ml/min; Est GFR (African American) 38.7 ml/min; Est GFR (Non-African American) 33.4 ml/min; Globulin 3.3 gm/dl (2.5-4.0); Magnesium 1.6 mg/dl (1.7-2.4); Potassium 3.8 mmol/L (3.5-5.1); Total Protein 6.9 gm/dl (6.0-8.3)
[2022-02-16 10:36] LABS: Troponin I High Sensitivity 49.1 pg/ml (0-14)
[2022-02-16] MEDS ORDERED: ACETAMINOPHEN 500 MG TAB PO STA (10:45)
--- NOTE | 2022-02-16 10:46 | XRay Report ---
SINGLE VIEW CHEST CLINICAL HISTORY: Generalized weakness. FINDINGS: 2 AP, portable, upright chest radiographs are compared to study dated 05/19/2021 and correla cindi with chest CT dated 01/08/2020. The examination is degraded by portable technique and apical lordo tic positioning. The cardiomediastinal silhouette is top normal for projection noting atherosclerotic calcification of the thoracic aorta. Chronic interstitial thickening is similar to previous. There i s mild bibasilar scarring/atelectasis. The lungs and pleural spaces are otherwise clear. No pneumotho rax is seen. The skeletal structures are osteopenic. The bony thorax is grossly intact. Fusion hardwa re is noted at the thoracolumbar junction. Arthritic change is seen in the shoulders. Surgical clips are noted in the right axilla. IMPRESSION: No active disease in the chest. ACT 112: Negative or not required by law. Electronically signed by: Joey Patterson M.D. 02/16/2022 10:44 AM
[2022-02-16 12:01] LABS: Influenza A virus by PCR Negative (Negative); Influenza B virus by PCR Negative (Negative)
[2022-02-16] MEDS ORDERED: CEFEPIME 20 ML IV STA (12:08)
--- NOTE | 2022-02-16 12:23 | Electrocardiogram Report ---
Test Reason : Blood Pressure : / mmHG Vent. Rate : 066 BPM Atrial Rate : 066 BPM P-R Int : 140 ms QRS Dur : 078 ms QT Int : 438 ms P-R-T Axes : 073 065 053 degrees QTc Int : 459 ms Normal sinus rhythm Normal ECG When compared with ECG of 27-JAN-2022 13:57, Arm lead reversal corrected Confirmed by Milad Wilson ([id number]) on 02/16/2022 12:23:02 PM Referred By: SELF Confirmed By:Milad Wilson
--- NOTE | 2022-02-16 13:33 | CT Scan Report ---
CT SCAN OF THE ABDOMEN AND PELVIS WITHOUT IV CONTRAST CLINICAL HISTORY: Fever. Right flank pain. Generalized weakness. Nausea. COMPARISON STUDY: Abdominal CT dated 07/28/2021. TECHNIQUE: CT scan of the abdomen and pelvis is performed from the lung bases to the proximal femora. Images are reviewed in the axial, sagittal, and coronal planes. IV contrast was not administered for this examination. A dose lowering technique was utilized adhering to the principles of ALARA. There is streak artifact from extensive metallic spinal hardware. CT DOSE: 727.85 mGy.cm FINDINGS: Lung bases: The heart is normal in size and without pericardial effusion. The mitral annulus is dense ly calcified. There are scattered calcified granulomas. Peribronchial thickening is noted in the lowe r lobes. There is bibasilar scarring/atelectasis. No airspace consolidation or pleural effusion is id entified. There is a small hiatal hernia. Liver: The unenhanced liver is normal in size, contour, and attenuation. There is no intrahepatic giovanna iary ductal dilatation. Gallbladder: Surgically absent and clips in the gallbladder fossa. Spleen: Normal in size and attenuation. Pancreas: The unenhanced pancreas is moderately atrophic and grossly unremarkable. Adrenal glands: Unremarkable. Kidneys: The unenhanced kidneys are normal in size, heterogeneous, and without hydronephrosis. There are punctate nonobstructing left renal calculi. No right renal calculi are seen. A 3.1 cm exophytic c yst is noted on the left. There Abdominal vasculature: The abdominal aorta is normal in course and caliber noting moderate to advance d atherosclerotic calcification. Bowel: There is no bowel obstruction.. The appendix is normal as visualized. Peritoneum: There is no intraperitoneal free air or abdominal ascites. Lymphadenopathy: None. Pelvic viscera: The bladder is distended, and the wall appears thickened with mild surrounding infilt ration. The uterus is surgically absent. No adnexal lesion is seen. Skeletal structures: The skeletal structures are heterogeneously osteopenic. Spondylotic change is se en throughout the spine. There is postoperative change from posterior spinal fusion seen from T12-L4. No lytic or blastic lesions are seen. IMPRESSION: 1. Question cystitis. Correlate with clinical findings and urinalysis. 2. Additional findings as above. ACT 112: Negative or not required by law. Electronically signed by: Joey Patterson M.D. 02/16/2022 1:31 PM
[2022-02-16] MEDS ORDERED: SODIUM CHLORIDE 0.9% 1000ML 1,000 ML IV STA (14:08)
--- NOTE | 2022-02-16 14:08 | Emergency Department Note ---
Impression & Plan Acute pyelonephritis, Generalized weakness, Elevated troponin ED Provider Note INFORMANT: Patient ED PROVIDER(S): Cornel Roberts MD CHIEF COMPLAINT: Generalized weakness and nausea PLAN: Disposition: Admitted Condition: Good Outpatient prescription management: none Referral: MEDICAL DECISION MAKING: Patient presented because of nausea weakness. She was being treated for UTI with Macrobid. I did obtain the culture results and she can only receive a cefepime or oral Macrobid. There are no other oral choices. She had right flank pain and fever. This was concerning for pyelonephritis on clinical examination especially since there is no renal tissue penetration with the Macr obid. She has no significant white count. She did have some mild dehydration and was treated with normal saline. She was given a dose of IV cefepime. Her troponin was mildly elevated. CT imaging was performed and did not show any significant intra-abdominal findings other than some cystitis. The patient had an unremarkable urinalysis here but again is already on antibiotics. She had some atelectasis on her chest x-ray. COVID and flu testing were negative. She was given Tylenol which helped with her fever. [facility] Patient was evaluated in the ER admitted for further management. Triage Nursing notes reviewed and agree them. Vital Signs: reviewed and remarkable for fever Differential diagnosis: Viral syndrome, pyelonephritis, pneumonia, influenza, meningitis, urinary tract infection, sepsis, bacteremia, as well as other pathologies. Diagnostics interpreted by me: EC Lead ECG performed and revealed Normal sinus rhythm at 66, normal [place], QRS normal. No elevation or depression. No PACs or PVCs Cardiac Monitoring: Cardiac monitoring ordered by me: The patient was placed on continuous cardiac monitoring and observed. It revealed a normal sinus rhythm at 60 beats per minute without ectopy or evidence of dysrhythmia. Imaging studies: CT scan and chest x-ray as noted below HPI: The patient is a 81year old female who presents to the Emergency Room with complaints of generalized weakness and nausea. This started 3 days ago and is worsening. The patient also notes the following associated symptoms, right fla nk pain and urinary symptoms. The patient has been placed on Macrobid for relieving factors. Current pain is rated as 3/10. Pt denies LOC, headache, fevers, chills, diaphoresis, visual changes, neck pain, chest pain, breathing difficulties, nausea, vomiting, left abdominal pain, left back pain, melena, hematochezia, numbness, weakness, lymphadenopathy, rash, or other complaints. ROS: See above HPI for pertinent positives & negatives. A total of 10 systems reviewed and were otherwise negative. PAST MEDICAL HISTORY:See Below , hypertension, GERD PAST SURGICAL HISTORY:See Below, FAMILY HISTORY:See Below SOCIAL HISTORY:See Below, resides in a group home HOME MEDICATIONS:See Below ALLERGIES:See Below VITALS:See Below PHYSICAL EXAMINATION: GENERAL: Awake, tired-appearing, in no distress HENT: Normocephalic, atraumatic. Oropharynx unremarkable. EYES: Normal conjunctiva. Sclera non-icteric. NECK: Inspection normal. Non-tender. Supple. No nuchal rigidity. FROM. No masses. RESPIRATORY: Clear to auscultation. No wheezes. No rales. Normal respiratory effort. CARDIAC: Borderline bradycardic rate. Normal rhythm. No murmurs. No rubs. Ext remities warm and well perfused. Pulses equal. No JVD. GI: Soft, non-distended. Minimal right upper quadrant tenderness to palpation. No rebound or guarding. No masses. RECTAL: Deferred. MUSCULOSKELETAL: Atraumatic. Chest examination reveals no tenderness. The back is symmetrical on inspection without obvious abnormality. There is right CVA tenderness to palpation. No joint edema. LOWER EXTREMITIES: Calves are equal size bilaterally and non-tender. No edema. No discoloration. NEURO: Normal sensorium. No sensory or motor deficits noted. SKIN: No rash or jaundice noted. Cornel Roberts MD Past Med/Surg History Medical History Acute hypercapnic respiratory failure DEB (acute kidney injury) Anxiety and depression Asthma Breast cancer Chronic back pain Chronic neck pain Chronic pulmonary aspiration Fusion of spine GERD (gastroesophageal reflux disease) History of benign brain tumor History of dysphagia History of esophageal dilatation History of spinal stenosis History of stroke History of uterine cancer Hypertension Left pontine stroke Lymphedema of right arm Meningioma Microalbuminuria due to type 2 diabetes mellitus Microcytic anemia Morbid obesity Neuropathy Obesity hypoventilation syndrome Osteoarthritis PAC (premature atrial contraction) PVC (premature ventricular contraction) Sensorineural hearing loss (SNHL) of both ears Severe obstructive sleep apnea T2DM (type 2 diabetes mellitus) Uterine cancer Weakness Surgical History Difficult airway for intubation History of cardiac catheterization History of cataract surgery History of cholecystectomy History of colonoscopy History of esophagogastroduodenoscopy (EGD) History of knee surgery History of mastectomy History of total abdominal hysterectomy Family History Mother Diabetes Myocardial infarction Hypertension Family history of diabetes mellitus Brother Family history of diabetes mellitus Sister Osteoporosis Arthritis Denies family history of Ovarian cancer Prostate cancer Breast cancer Colorectal cancer Social History Smoking Status: Former smoker Tobacco Type: Cigarettes Age Started Using Tobacco: 15; Age Quit Using Tobacco: 30; packs per day: 1; Second Hand Exposure: No; Hx Alcohol Use: No Hx Substance Use: No Preferred Language: Mohawk Communication Ability: Effective Visual Impairment: Limited Hearing Ability: Hard of Hearing Regulatory Affairs Specialist Required: No Beliefs That Will Affect Care: Gnosticist Gnosticist Beliefs: ORIENTAL ORTHODOX marital status: / Current Living Situation: Personal Care Facility Current Living Situation Comment: Assisted living current occupational status: retired Feels Safe at Home: Yes Childhood Exposure to Second-Hand Smoke: No Diet Comment: low carb Dental Care, Regularly: Yes Physical Activity Frequency: Does not Exercise Seatbelt Use: always Sunscreen Use: Yes Assistive Devices: Walker Allergies Allergies Allergy/AdvReac Type Severity Reaction Status Date / Time cantaloupe Allergy Severe THROAT Verified 02/16/22 14:07 CLOSES celecoxib [From Celebrex] Allergy Severe CAUSED Verified 02/16/22 14:07 STROKE melon Allergy Severe THROAT Verified 02/16/22 14:07 CLOSES meperidine Allergy Severe almost Verified 02/16/22 14:07 "closed throat" midodrine Allergy Severe "almost Verified 02/16/22 14:07 closed throat" Penicillins Allergy Severe ANAPHYLAXIS Verified 02/16/22 14:07 sulfamethoxazole Allergy Severe THROAT Verified 02/16/22 14:07 CLOSED trimethoprim Allergy Severe THROAT Verified 02/16/22 14:07 CLOSED watermelon Allergy Severe THROAT Verified 02/16/22 14:07 CLOSES diphenoxylate Allergy Intermediate Unknown Verified 02/16/22 14:07 metronidazole [From Flagyl] Allergy Intermediate Hives Verified 02/16/22 14:07 DENILSON Inhibitors Allergy Unknown unknown to Verified 02/16/22 14:07 pt atropine Allergy Unknown Unknown Verified 02/16/22 14:07 carvedilol Allergy Unknown Unknown Verified 02/16/22 14:07 clonazepam [From Klonopin] Allergy Unknown Unknown Verified 02/16/22 14:07 doxycycline Allergy Unknown Unknown Verified 02/16/22 14:07 furosemide [From Lasix] Allergy Unknown Unknown Verified 02/16/22 14:07 Histamine H2 Inhibitors Allergy Unknown unknown to Verified 02/16/22 14:07 pt Iodinated Contrast Media Allergy Unknown JULY 2017 Verified 02/16/22 14:07 [facility] -- TOLERATED WITH SLOW INFUSION PER PATIENT nitrofurantoin Allergy Unknown Unknown Verified 02/16/22 14:07 phenazopyridine Allergy Unknown Unknown Verified 02/16/22 14:07 ranitidine Allergy Unknown Unknown Verified 02/16/22 14:07 repaglinide Allergy Unknown Unknown Verified 02/16/22 14:07 rosiglitazone Allergy Unknown Unknown Verified 02/16/22 14:07 tolterodine [From Detrol] Allergy Unknown Unknown Verified 02/16/22 14:07 ciprofloxacin [From Cipro] AdvReac Severe throat Verified 02/16/22 14:07 swelling citalopram [From Celexa] AdvReac Severe SEE COMMENT Verified 02/16/22 14:07 diazepam AdvReac Severe SEDATION Verified 02/16/22 14:07 LASTING TOO LONG prednisone AdvReac Severe BSG Verified 02/16/22 14:07 ELEVATED TO THE 500'S glyburide AdvReac Intermediate SEVERE Verified 02/16/22 14:07 ABDOMINAL PAIN meloxicam [From Mobic] AdvReac Intermediate SICK TO Verified 02/16/22 14:07 STOMACH metformin AdvReac Intermediate SEVERE Verified 02/16/22 14:07 ABDOMINAL PAIN oxycodone AdvReac Intermediate SEVERE Verified 02/16/22 14:07 WITHDRAWAL SYMPTOMS WHEN TRYING TO STOP TAKING paroxetine AdvReac Intermediate DID NOT Verified 02/16/22 14:07 HELP temazepam AdvReac Intermediate DID NOT Verified 02/16/22 14:07 HELP tramadol AdvReac Intermediate Vomiting Verified 02/16/22 14:07 albuterol AdvReac Unknown UNK Verified 02/16/22 14:07 carbamazepine AdvReac Unknown Unknown Verified 02/16/22 14:07 ibuprofen AdvReac Unknown Unknown Verified 02/16/22 14:07 lisinopril AdvReac Unknown UNK Verified 02/16/22 14:07 mirtazapine AdvReac Unknown Unknown Verified 02/16/22 14:07 olanzapine AdvReac Unknown Unknown Verified 02/16/22 14:07 rofecoxib AdvReac Unknown Unknown Verified 02/16/22 14:07 valproic acid AdvReac Unknown Unknown Verified 02/16/22 14:07 ceftriaxone AdvReac Verified 02/16/22 14:07 Home Meds Home Medications Medication Instructions Recorded Confirmed docusate sodium 100 mg capsule 100 mg PO BID PRN Constipation 10/22/19 01/30/22 (Colace) albuterol sulfate 90 mcg/actuation 1 puff inhalation Q4H PRN Wheezing 12/09/19 01/30/22 aerosol inhaler (Ventolin HFA) lancets #100 ea 03/03/20 01/30/22 blood-glucose meter,continuous #1 ea 09/13/20 01/30/22 (Dexcom G6 Classroom Coordinator misc) blood-glucose sensor (Dexcom G6 #3 ea 09/13/20 01/30/22 Sensor device) blood-glucose transmitter (Dexcom #1 ea 09/13/20 01/30/22 G6 Transmitter device) diphenhydramine HCl 25 mg tablet 25 mg PO DAILY PRN itching 05/19/21 01/30/22 (Benadryl Allergy) lactase 9,000 unit tablet (Lactaid 9,000 unit PO QID PRN Lactose 07/22/21 01/30/22 Fast Act) Intolerance lidocaine 4 % topical patch 2 patch topical UD PRN Pain 07/22/21 01/30/22 (Salonpas (lidocaine)) melatonin 3 mg disintegrating 3 mg PO HS PRN Insomnia 07/22/21 01/30/22 tablet acetaminophen 500 mg tablet 1,000 mg PO Q6H PRN mild pain/fever 07/28/21 01/30/22 diphenoxylate-atropine 2.5 1 tab PO BID PRN Diarrhea 07/28/21 01/30/22 mg-0.025 mg tablet (Lomotil) diclofenac sodium 1 % topical gel See Rx Instructions .Route 01/24/22 01/30/22 .COMPLEX PRN JOINT PAIN insulin aspart U-100 100 unit/mL 2 unit subcut QDD 01/24/22 01/30/22 (3 mL) subcutaneous pen (Novolog Flexpen U-100 Insulin aspart) insulin glargine 100 unit/mL (3 unit subcut 01/29/22 01/30/22 mL) subcutaneous pen (Basaglar KwikPen U-100 Insulin) mirabegron 25 mg tablet,extended 25 mg PO DAILY 01/30/22 release 24 hr (Myrbetriq) Previous Rx's Medication Instructions Recorded polyethylene glycol 3350 17 17 g PO DAILY PRN constipation 01/13/20 gram/dose oral powder (Miralax) #119 grams cholecalciferol (vitamin D3) 125 5,000 unit PO QAM #30 tabs 01/29/20 mcg (5,000 unit) tablet (Vitamin D3) ipratropium bromide 21 mcg (0.03 2 spray intranasal DAILY #30 mL 01/11/21 %) nasal spray metoprolol succinate 50 mg 50 mg PO QPM #90 tabs 04/29/21 tablet,extended release 24 hr (Toprol XL) epinephrine 0.3 mg/0.3 mL 0.3 mg (0.3 mL) IM DIRECTED PRN 05/03/21 injection, auto-injector Anaphylaxis #1 ea hydrocortisone 1 % topical cream 1 applic topical BID PRN Itching 06/14/21 #28.4 grams ondansetron HCl 4 mg tablet 4 mg PO Q6H PRN nausea and 07/07/21 vomiting #30 tabs nitroglycerin 0.4 mg sublingual 0.4 mg sublingual DIRECTED PRN 07/25/21 tablet Chest Pain #30 tabs oxybutynin chloride 5 mg tablet 5 mg PO TID PRN bladder spasms #90 07/25/21 tabs fluocinolone 0.01 % shampoo 30 ml topical 2XWK PRN scalp 08/02/21 irritation #120 mL pen needle, diabetic 31 gauge x #100 ea 08/11/21 5/16" (BD Ultra-Fine Short Pen Needle) cyanocobalamin (vitamin B-12) 1,000 mcg PO DAILY #90 tabs 08/31/21 1,000 mcg tablet (Vitamin B-12) blood sugar diagnostic (OneTouch #200 ea 10/11/21 Ultra Test strips) montelukast 10 mg tablet 10 mg PO QPM #90 tabs 10/19/21 (Singulair) pantoprazole 40 mg tablet,delayed 40 mg PO BID #180 tabs 10/19/21 release pravastatin 40 mg tablet 40 mg PO .EVERY 48 HOURS #90 tabs 10/19/21 clopidogrel 75 mg tablet (Plavix) 75 mg PO QAM #90 tabs 11/16/21 escitalopram oxalate 20 mg tablet 20 mg PO HS #90 tabs 11/16/21 gabapentin 100 mg capsule See Rx Instructions PO .COMPLEX 01/13/22 #360 caps loperamide 2 mg capsule 4 mg PO UD PRN Diarrhea #20 caps 01/16/22 Results & Data (ED) Vital Signs Vital Signs - 24 hr 02/16/22 09:13 02/16/22 09:44 02/16/22 09:52 Temperature 38.8 C H 38.8 C H Temperature Source Oral Oral Pulse Rate 68 Pulse Rate [Apical] 68 Pulse Rhythm [Apical] Pulse Strength [Apical] Respiratory Rate 16 16 Respiratory Effort / Characteristics Respiratory Depth Respiratory Pattern Blood Pressure 130/58 L Blood Pressure [Left Arm] 138/58 L Blood Pressure Mean 82 Blood Pressure Mean [Left Arm] 84 Pulse Oximetry 90 96 99 Oxygen Delivery Method Room Air Nasal Cannula Room Air Oxygen Flow Rate 2 2 Sepsis Recent Fever Within 48 Hours Yes Sepsis New/Unexplained Change in Mental Status No Sepsis Action Taken by Nursing No Action Required 02/16/22 12:00 02/16/22 13:47 Temperature 36.6 C Temperature Source Oral Pulse Rate Pulse Rate [Apical] 67 58 L Pulse Rhythm [Apical] Regular Regular Pulse Strength [Apical] Normal Respiratory Rate 23 21 Respiratory Effort / Characteristics Non-Labored Non-Labored Respiratory Depth Normal Normal Respiratory Pattern Regular Regular Blood Pressure Blood Pressure [Left Arm] 118/45 L Blood Pressure Mean Blood Pressure Mean [Left Arm] 69 Pulse Oximetry 97 98 Oxygen Delivery Method Nasal Cannula Nasal Cannula Oxygen Flow Rate 2 2 Sepsis Recent Fever Within 48 Hours Sepsis New/Unexplained Change in Mental Status Sepsis Action Taken by Nursing Laboratory Data Result diagrams: 02/16/22 09:45 02/16/22 09:45 Lab Results 02/16/22 02/16/22 02/16/22 Range/Units 09:45 09:45 09:45 WBC 6.92 (4.8-10.8) K/ul RBC 4.90 (3.93-5.22) M/uL Hgb 11.7 L (12.0-16.0) g/dl Hct 37.7 (34.1-44.9) % MCV 76.9 L (80.0-100.0) fL MCH 23.9 L (25.0-34.0) pg MCHC 31.0 L (32.0-36.0) g/dL RDW Std Deviation 41.3 (36.4-46.3) fL RDW Coeff of Tim 15.0 H (11.5-14.5) % Plt Count 106 L (130-400) K/uL MPV 9.1 L (9.4-12.3) fL Immature Gran % (Auto) 0.6 % Neut % (Auto) 79.5 % Lymph % (Auto) 9.7 % Real % (Auto) 7.2 % Eos % (Auto) 2.7 % Baso % (Auto) 0.3 % Neut # (Auto) 5.50 (1.4-6.5) K/uL Lymph # (Auto) 0.67 L (1.2-3.4) K/uL Real # (Auto) 0.50 (0.24-0.82) K/uL Eos # (Auto) 0.19 (0-0.50) K/uL Baso # (Auto) 0.02 (0-0.2) K/uL Immature Gran # (Auto) 0.04 H (0.00-0.02) K/uL Sodium 135 L (136-145) mmol/L Potassium 3.8 (3.5-5.1) mmol/L Chloride 98 (98-107) mmol/L Carbon Dioxide 28 (21-32) mmol/L Anion Gap 9 (3-11) BUN 27 H (6-23) mg/dl Creatinine 1.46 H (0.6-1.2) mg/dl Est Cr Clr Drug Dosing 30.8 ml/min Est GFR ( Amer) 38.7 ml/min Est GFR (Non-Af Amer) 33.4 ml/min BUN/Creatinine Ratio 18.5 (10-20) Glucose 128 H (70-99(Fasting)) mg/dl Lactate (0.4-2.0) mmol/L Calcium 8.6 (8.5-10.1) mg/dl Magnesium 1.6 L (1.7-2.4) mg/dl Total Bilirubin 1.7 H (0.2-1.0) mg/dl AST 22 (13-39) U/L ALT 20 (7-52) U/L Alkaline Phosphatase 65 (34-104) U/L Troponin I High Sens 49.1 H D (0-14) pg/ml Total Protein 6.9 (6.0-8.3) gm/dl Albumin 3.6 (3.4-5.0) gm/dl Globulin 3.3 (2.5-4.0) gm/dl Albumin/Globulin Ratio 1.1 (0.9-2) TSH 0.956 (0.300-4.500) uIu/ml Influ A Molecular Assay (Negative) Influ B Molecular Assay (Negative) SARS-CoV-2, RNA, NAAT (NEGATIVE) 02/16/22 02/16/22 02/16/22 Range/Units 10:02 11:22 11:34 WBC (4.8-10.8) K/ul RBC (3.93-5.22) M/uL Hgb (12.0-16.0) g/dl Hct (34.1-44.9) % MCV (80.0-100.0) fL MCH (25.0-34.0) pg MCHC (32.0-36.0) g/dL RDW Std Deviation (36.4-46.3) fL RDW Coeff of Tim (11.5-14.5) % Plt Count (130-400) K/uL MPV (9.4-12.3) fL Immature Gran % (Auto) % Neut % (Auto) % Lymph % (Auto) % Real % (Auto) % Eos % (Auto) % Baso % (Auto) % Neut # (Auto) (1.4-6.5) K/uL Lymph # (Auto) (1.2-3.4) K/uL Real # (Auto) (0.24-0.82) K/uL Eos # (Auto) (0-0.50) K/uL Baso # (Auto) (0-0.2) K/uL Immature Gran # (Auto) (0.00-0.02) K/uL Sodium (136-145) mmol/L Potassium (3.5-5.1) mmol/L Chloride (98-107) mmol/L Carbon Dioxide (21-32) mmol/L Anion Gap (3-11) BUN (6-23) mg/dl Creatinine (0.6-1.2) mg/dl Est Cr Clr Drug Dosing ml/min Est GFR ( Amer) ml/min Est GFR (Non-Af Amer) ml/min BUN/Creatinine Ratio (10-20) Glucose (70-99(Fasting)) mg/dl Lactate 0.8 (0.4-2.0) mmol/L Calcium (8.5-10.1) mg/dl Magnesium (1.7-2.4) mg/dl Total Bilirubin (0.2-1.0) mg/dl AST (13-39) U/L ALT (7-52) U/L Alkaline Phosphatase (34-104) U/L Troponin I High Sens (0-14) pg/ml Total Protein (6.0-8.3) gm/dl Albumin (3.4-5.0) gm/dl Globulin (2.5-4.0) gm/dl Albumin/Globulin Ratio (0.9-2) TSH (0.300-4.500) uIu/ml Influ A Molecular Assay Negative (Negative) Influ B Molecular Assay Negative (Negative) SARS-CoV-2, RNA, NAAT NEGATIVE (NEGATIVE) Administered Medications Sodium Chloride (Nss 1000ml) 1,000 mls @ 125 mls/hr IV .Q8H STA Stop: 02/16/22 22:07 Last Admin: 02/16/22 14:16 Dose: 125 mls/hr Documented By: MARIELENA Discontinued Medications Acetaminophen (Acetaminophen 500 Mg Tab) 1,000 mg PO NOW STA Stop: 02/16/22 10:46 Last Admin: 02/16/22 11:23 Dose: 1,000 mg Documented By: MARIELENA Sodium Chloride (Nss) 500 mls @ 999 mls/hr IV .Q31M SHARMILA Stop: 02/16/22 10:30 Last Infusion: 02/16/22 11:15 Dose: 0 mls/hr Documented By: Admin: 02/16/22 10:28 Dose: 999 mls/hr Documented By: KJ Cefepime HCl (Maxipime) 20 mls @ 5 mls/min IV NOW STA Stop: 02/16/22 12:11 Last Admin: 02/16/22 12:11 Dose: 5 mls/min Documented By: MARIELENA Ondansetron HCl (Ondansetron Inj 2 Mg/Ml 2 Ml Vial) 4 mg IV NOW STA Stop: 02/16/22 09:53 Last Admin: 02/16/22 10:27 Dose: 4 mg Documented By: KJ Imaging Data Radiologist's Impression: Chest X-Ray 02/16/22 09:52 SINGLE VIEW CHEST CLINICAL HISTORY: Generalized weakness. FINDINGS: 2 AP, portable, upright chest radiographs are compared to study dated 05/19/2021 and correlated with chest CT dated 01/08/2020. The examination is degraded by portable technique and apical lordotic positioning. The cardiomediastinal silhouette is top normal for projection noting atherosclerotic calcification of the thoracic aorta. Chronic interstitial thickening is similar to previous. There is mild bibasilar scarring/atelectasis. The lungs and pleural spaces are otherwise clear. No pneumothorax is seen. The skeletal structures are osteopenic. The bony thorax is grossly intact. Fusion hardware is noted at the thoracolumbar junction. Arthritic change is seen in the shoulders. Surgical clips are noted in the right axilla. IMPRESSION: No active disease in the chest. ACT 112: Negative or not required by law. Electronically signed by: Joey Patterson M.D. 02/16/2022 10:44 AM Abdomen/Pelvis CT 02/16/22 11:45 CT SCAN OF THE ABDOMEN AND PELVIS WITHOUT IV CONTRAST CLINICAL HISTORY: Fever. Right flank pain. Generalized weakness. Nausea. COMPARISON STUDY: Abdominal CT dated 07/28/2021. TECHNIQUE: CT scan of the abdomen and pelvis is performed from the lung bases to the proximal femora. Images are reviewed in the axial, sagittal, and coronal planes. IV contrast was not administered for this examination. A dose lowering technique was utilized adhering to the principles of ALARA. There is streak artifact from extensive metallic spinal hardware. CT DOSE: 727.85 mGy.cm FINDINGS: Lung bases: The heart is normal in size and without pericardial effusion. The mitral annulus is densely calcified. There are scattered calcified granulomas. Peribronchial thickening is noted in the lower lobes. There is bibasilar scarring/atelectasis. No airspace consolidation or pleural effusion is identified. There is a small hiatal hernia. Liver: The unenhanced liver is normal in size, contour, and attenuation. There is no intrahepatic biliary ductal dilatation. Gallbladder: Surgically absent and clips in the gallbladder fossa. Spleen: Normal in size and attenuation. Pancreas: The unenhanced pancreas is moderately atrophic and grossly unremarkable. Adrenal glands: Unremarkable. Kidneys: The unenhanced kidneys are normal in size, heterogeneous, and without hydronephrosis. There are punctate nonobstructing left renal calculi. No right renal calculi are seen. A 3.1 cm exophytic cyst is noted on the left. There Abdominal vasculature: The abdominal aorta is normal in course and caliber noting moderate to advanced atherosclerotic calcification. Bowel: There is no bowel obstruction.. The appendix is normal as visualized. Peritoneum: There is no intraperitoneal free air or abdominal ascites. Lymphadenopathy: None. Pelvic viscera: The bladder is distended, and the wall appears thickened with mild surrounding infiltration. The uterus is surgically absent. No adnexal lesion is seen. Skeletal structures: The skeletal structures are heterogeneously osteopenic. Spondylotic change is seen throughout the spine. There is postoperative change from posterior spinal fusion seen from T12-L4. No lytic or blastic lesions are s een. IMPRESSION: 1. Question cystitis. Correlate with clinical findings and urinalysis. 2. Additional findings as above. ACT 112: Negative or not required by law. Electronically signed by: Joey Patterson M.D. 02/16/2022 1:31 PM Discharge Plan Visit Data Chief Complaint: Illness Stated Complaint: DIZZINESS, NAUSEA ED Provider: Cornel Roberts Discharge Problem: Acute pyelonephritis, Generalized weakness, Elevated troponin Forms Stand Alone Forms: My [facility] 911 Prescriptions Prescriptions: No Action cholecalciferol (vitamin D3) [Vitamin D3] 125 mcg (5,000 unit) tablet 5,000 unit PO QAM Qty: 30 5RF metoprolol succinate [Toprol XL] 50 mg tablet extended release 24 hr 50 mg PO QPM Qty: 90 1RF epinephrine 0.3 mg/0.3 mL auto-injector 0.3 mg IM DIRECTED PRN (Reason: Anaphylaxis) Qty: 1 0RF hydrocortisone 1 % cream 1 applic topical BID PRN (Reason: Itching) Qty: 28.4 2RF fluocinolone 0.01 % shampoo 30 ml topical 2XWK PRN (Reason: scalp irritation ) Qty: 120 1RF (DME) pen needle, diabetic [BD Ultra-Fine Short Pen Needle] 31 gauge x 5/16" needle See Rx Instructions .ROUTE .MEDSUPPLY Qty: 100 3RF Rx Instructions: Use as directed 1 per day with insulin injection cyanocobalamin (vitamin B-12) [Vitamin B-12] 1,000 mcg tablet 1,000 mcg PO DAILY Qty: 90 1RF (DME) OneTouch Ultra Test Strip See Rx Instructions .Route Qty: 200 2RF Rx Instructions: Test 4 times a day montelukast [Singulair] 10 mg tablet 10 mg PO QPM Qty: 90 3RF pantoprazole 40 mg tablet,delayed release (DR/EC) 40 mg PO BID Qty: 180 3RF pravastatin 40 mg tablet 40 mg PO .EVERY 48 HOURS Qty: 90 1RF clopidogrel [Plavix] 75 mg tablet 75 mg PO QAM Qty: 90 3RF escitalopram oxalate 20 mg tablet 20 mg PO HS Qty: 90 3RF gabapentin 100 mg capsule See Rx Instructions PO .COMPLEX Qty: 360 3RF Rx Instructions: orally; 100 mg with breakfast and lunch and 200 mg with dinner loperamide 2 mg capsule 4 mg PO UD PRN (Reason: Diarrhea) Qty: 20 0RF Rx Instructions: take 2 capsules after first diarrhea Myrbetriq 25 mg tablet extended release 24 hr 25 mg PO DAILY Rx Instructions: Per task from Meally on 01/30/22 to continue. ([facility] [place] See [facility] Instructions .ROUTE .MEDSUPPLY Qty: 100 Rx Instructions: As directed ([facility] [place]) Dexcom G6 Sensor Device See Rx Instructions .ROUTE .MEDSUPPLY Qty: 3 Rx Instructions: As directed ([facility] [place]) Dexcom G6 Classroom Coordinator Misc See Rx Instructions .ROUTE .MEDSUPPLY Qty: 1 Rx Instructions: As directed ([facility] [place]) Dexcom G6 Transmitter Device See Rx Instructions .ROUTE .MEDSUPPLY Qty: 1 Rx Instructions: As directed ipratropium bromide 21 mcg (0.03 %) spray,non-aerosol 2 spray intranasal DAILY Qty: 30 2RF Rx Instructions: administer into each nostril oxybutynin chloride 5 mg tablet 5 mg PO TID PRN (Reason: bladder spasms) Qty: 90 3RF nitroglycerin 0.4 mg tablet, sublingual 0.4 mg sublingual DIRECTED PRN (Reason: Chest Pain) Qty: 30 0RF Rx Instructions: PLACE ONE TABLET UNDER THE TONGUE EVERY 5 MINUTES FOR UP TO 3 DOSES OVER 15 MINUTES IF NEEDED FOR CHEST PAIN ondansetron HCl 4 mg tablet 4 mg PO Q6H PRN (Reason: nausea and vomiting) Qty: 30 3RF docusate sodium [Colace] 100 mg capsule 100 mg PO BID PRN (Reason: Constipation) albuterol sulfate [Ventolin HFA] 90 mcg/actuation HFA aerosol inhaler 1 puff INHALATION Q4H PRN (Reason: Wheezing) polyethylene glycol 3350 [Miralax] 17 gram/dose powder 17 g PO DAILY PRN (Reason: constipation) Qty: 119 0RF insulin aspart U-100 [Novolog Flexpen U-100 Insulin] 100 unit/mL (3 mL) insulin pen 2 unit subcut QDD Rx Instructions: Take 2 units daily with evening meal. diclofenac sodium 1 % gel See Rx Instructions .ROUTE .COMPLEX PRN (Reason: JOINT PAIN) Rx Instructions: APPLY 4GM TOPICALLY TO SINGLE KNEE, ANKLE, AND FOOT (FOOT INCLUDES SOLE/TOES/TOP OF FOOT) FOUR TIMES DAILY NEEDED FOR JOINT PAIN insulin glargine [Basaglar KwikPen U-100 Insulin] 100 unit/mL (3 mL) insulin pen SUBCUT diphenhydramine HCl [Benadryl Allergy] 25 mg tablet 25 mg PO DAILY PRN (Reason: itching) lidocaine [Salonpas (lidocaine)] 4 % Adhesive Patch,Medicated 2 patch TOPICAL UD PRN (Reason: Pain) Rx Instructions: apply 2 patches to back on for 12 hours off for 12 hours Lactaid Fast Act 9,000 unit Tablet 9,000 unit PO QID PRN (Reason: Lactose Intolerance) Rx Instructions: administer with meals and snacks melatonin 3 mg Tablet,Disintegrating 3 mg PO HS PRN (Reason: Insomnia) diphenoxylate-atropine [Lomotil] 2.5-0.025 mg Tablet 1 tab PO BID PRN (Reason: Diarrhea) acetaminophen 500 mg tablet 1,000 mg PO Q6H MDD 3g PRN (Reason: mild pain/fever) Referrals Referrals: Darwin Lugo III, CRNP [Primary Care Provider] -
--- NOTE | 2022-02-16 14:34 | History & Physical Report ---
Date of Service February 16, 2022 Assessment & Plan (1) Acute pyelonephritis: Plan: -Admit to med/tele -Patient is currently afebrile, hemodynamically stable, and stable on 2L NC -Has been on Macrobid since Sunday for UTI diagnosed outpatient, there was a delay in receiving her initial Macrobid outpatient. Despite starting Macrobid on Sunday she continues to have fever, generalized weakness/fatigue, and CVA tenderness. -Patient has history of recurrent UTI's growing Pseudomonas and multiple allergies to many antibiotics. For this reason we will continue with cefepime for now until her urine culture and blood cultures result -Will continue light hydration overnight with Lactated Ringer's for a total of 2 bags as she appears dehydrated and has had poor oral intake over the past week -Monitor am CBC and BMP (2) Generalized weakness: Plan: -Patient's daughter notes generalized weakness over the past week with her UTI and poor oral intake -Patient is currently at her neurologic baseline and oriented but fatigued -Fatigue is likely related to her current infection, poor oral intake, and dehydration -Obtained ABG to rule out acute hypercapnia, pCO2 only elevated to 52 -Continue antibiotics and IV fluids, monitor patient's mental status moving forward (3) Hypoxia: Plan: -Patient noted to be hypoxic in the high 80's after arrival to the ED -Chest xray is clear, patient is without pleuritic chest pain but PE cannot be ruled out at this time. Would liked to avoid IV contrast at this time with CTA due to her chronic kidney disease. -At this time her hypoxia is more likely associated with her known obesity hypoventilation syndrome, known CAMRON requiring CPAP, fatigue, and chronic lung disease -Will continue her prn albuterol and have respiratory come administer one, continue incentive spirometry and flutter therapy -If patient would become unstable would obtain CTA of the chest to rule out PE (4) Elevated troponin: Plan: -Initial troponin elevated at 49.1, patient is asymptomatic and ECG was without acute ST segment or T-wave changes -Elevation likely related demand from her current infection, dehydration, and possibly due to her hypoxia -Will repeat another now -Continue to monitor on tele, if any significant elevation in troponin or if patient becomes symptomatic would reach out to cardiology (5) Neuropathy: Plan: -Continue gabapentin (6) T2DM (type 2 diabetes mellitus): Plan: -Continue home lantus at 15 units qam -Start correction factor of 50 and carb ratio of 16 -Monitor BSG ACHS (7) Dysphagia: Plan: -Patient has a history of dysphagia and recurrent aspiration after her CVA -Daughter states she does not need a modified diet -For now will order aspiration precautions and easy to chew diet (8) Depression: Plan: -Continue lexapro (9) Hypertension: Plan: -Continue metoprolol (10) Severe obstructive sleep apnea: Plan: -HS Cpap ordered (11) Asthma: Plan: -Continue albuterol (12) GERD (gastroesophageal reflux disease): Plan: -Continue pantoprazole (13) Dyslipidemia: Plan: -continue pravastatin Plan The patient was discussed with Dr. Bronson at the time of the admission History of Present Illness Chief Complaint: Generalized weakness and nausea Primary Care Provider: Darwin Lugo III, CRNP Liv is an 81 year old female resident at [facility] with a PMH significant for DM2 w/ peripheral neuropathy, acute hypercapnic respiratory failure, CKD3, neurogenic claudication due to L-spinal stenosis s/p L fusion in January 2020, obesity hypoventilation syndrome, chronic radiation cystitis, thrombocytopenia, anxiety and depression, asthma, chronic pulmonary aspiration due to previous stroke and chronic dysphagia, HTN, obesity who presented to the [facility] ED on 02/16/22 with complaints of generalized weakness and nausea. In the ED the patient was found to be febrile at 38.8 C, hemodynamically stable, and stable on 2L NC. Labs were remarkable for WBC WNL, stable Hgb at 11.7, slightly decreased MCV at 76.9 and MCHC at 31, thrombocytopenia of 106 (appears to be chronic and range from 90-120's), stable renal function with Cr of 1.46, mag of 1.6 otherwise stable electrolytes, total bili of 1.7, high sensitivity troponin of 49, TSH of 0.956, and negative Covid and flu screening. Chest xray was negative for acute findings. CT of the abdomen and pelvis without IV contrast showed "Question cystitis. Correlate with clinical findings and urinalysis. Additional findings as above." and was without other acute findings. ECg was without acute ST segment or T-wave changes. While the patient's current UA is unimpressive she has been on Macrobid for UTI, which may be masking a current infection. Due to the patient's extensive history of allergic reactions to numerous and history of urine growing Pseudomonas the patient was started on Cefepime due to concerns for possible pyelonephritis. Prior to admission the patient was also given 1g IV tylenol, 1L NSS bolus, and 4 mg IV zofran. At the time of the exam the patient was lying in bed in no acute distress with her daughter (Also her POA) sitting bedside. The majority of the history was obtained from the patient's daughter who is also her POA. Her daughter states that the patient started to develop UTI symptoms again on 02/10/22. The patient states that she has been experiencing dysuria, increased urinary frequency, fevers, and chills. She is resident at [facility], her daughter states that there was confusion with her initial Urine sample and because of this she was not started on antibiotics until Sunday02/13/22. Her daughter states that the patient was started on Macrobid on 02/13 but it did not seem to be helping. Her daughter states that the patient has been very tired over the past week, sleeping most of the day. At baseline her daughter states that the patient normally is much more talkative and asks her providers lots of questions. Her daughter states that the patient was hospitalized at [facility] last month and was treated for a UTI. Per chart review, the patient was found to have a UTI during her admission from 01/25-01/29. She was initially started on Ceftriaxone but experienced profound weakness and fatigue. Because of this the Ceftriaxone was held and she was switch to PO Keflex, which she tolerated well. Myasthenia screen labs were obtained during her admission due to the weakness, after review they were negative. Her daughter states that the patient has been scheduled for an outpatient Penicillin challenge with an Certified Surgical Technician but this has been delayed due to her recent hospitalizations. During my exam the patient is fatigued and does fall asleep at times. She was noted to be on 2L NC at the start of my exam. I turned her oxygen off at the start of my exam and she desaturated into the low 90's. She was easy to wake, follows commands, and is completely oriented during my exam. The patient has a history of CVA with residual left sided weakness. 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 She does not wear oxygen at home but does use Cpap at night and has the history of obesity hypoventilation syndrome. I spoke to the patient and her daughter regarding code status, the patient is a DNR/DNI. Please refer to Dr. Bronson's attestation for any changes to the treatment plan Allergies Allergy/AdvReac Type Severity Reaction Status Date / Time cantaloupe Allergy Severe THROAT Verified 02/16/22 14:07 CLOSES celecoxib [From Celebrex] Allergy Severe CAUSED Verified 02/16/22 14:07 STROKE melon Allergy Severe THROAT Verified 02/16/22 14:07 CLOSES meperidine Allergy Severe almost Verified 02/16/22 14:07 "closed throat" midodrine Allergy Severe "almost Verified 02/16/22 14:07 closed throat" Penicillins Allergy Severe ANAPHYLAXIS Verified 02/16/22 14:07 sulfamethoxazole Allergy Severe THROAT Verified 02/16/22 14:07 CLOSED trimethoprim Allergy Severe THROAT Verified 02/16/22 14:07 CLOSED watermelon Allergy Severe THROAT Verified 02/16/22 14:07 CLOSES diphenoxylate Allergy Intermediate Unknown Verified 02/16/22 14:07 metronidazole [From Flagyl] Allergy Intermediate Hives Verified 02/16/22 14:07 DENILSON Inhibitors Allergy Unknown unknown to Verified 02/16/22 14:07 pt atropine Allergy Unknown Unknown Verified 02/16/22 14:07 carvedilol Allergy Unknown Unknown Verified 02/16/22 14:07 clonazepam [From Klonopin] Allergy Unknown Unknown Verified 02/16/22 14:07 doxycycline Allergy Unknown Unknown Verified 02/16/22 14:07 furosemide [From Lasix] Allergy Unknown Unknown Verified 02/16/22 14:07 Histamine H2 Inhibitors Allergy Unknown unknown to Verified 02/16/22 14:07 pt Iodinated Contrast Media Allergy Unknown JULY 2017 Verified 02/16/22 14:07 [facility] -- TOLERATED WITH SLOW INFUSION PER PATIENT nitrofurantoin Allergy Unknown Unknown Verified 02/16/22 14:07 phenazopyridine Allergy Unknown Unknown Verified 02/16/22 14:07 ranitidine Allergy Unknown Unknown Verified 02/16/22 14:07 repaglinide Allergy Unknown Unknown Verified 02/16/22 14:07 rosiglitazone Allergy Unknown Unknown Verified 02/16/22 14:07 tolterodine [From Detrol] Allergy Unknown Unknown Verified 02/16/22 14:07 ciprofloxacin [From Cipro] AdvReac Severe throat Verified 02/16/22 14:07 swelling citalopram [From Celexa] AdvReac Severe SEE COMMENT Verified 02/16/22 14:07 diazepam AdvReac Severe SEDATION Verified 02/16/22 14:07 LASTING TOO LONG prednisone AdvReac Severe BSG Verified 02/16/22 14:07 ELEVATED TO THE 500'S glyburide AdvReac Intermediate SEVERE Verified 02/16/22 14:07 ABDOMINAL PAIN meloxicam [From Mobic] AdvReac Intermediate SICK TO Verified 02/16/22 14:07 STOMACH metformin AdvReac Intermediate SEVERE Verified 02/16/22 14:07 ABDOMINAL PAIN oxycodone AdvReac Intermediate SEVERE Verified 02/16/22 14:07 WITHDRAWAL SYMPTOMS WHEN TRYING TO STOP TAKING paroxetine AdvReac Intermediate DID NOT Verified 02/16/22 14:07 HELP temazepam AdvReac Intermediate DID NOT Verified 02/16/22 14:07 HELP tramadol AdvReac Intermediate Vomiting Verified 02/16/22 14:07 albuterol AdvReac Unknown UNK Verified 02/16/22 14:07 carbamazepine AdvReac Unknown Unknown Verified 02/16/22 14:07 ibuprofen AdvReac Unknown Unknown Verified 02/16/22 14:07 lisinopril AdvReac Unknown UNK Verified 02/16/22 14:07 mirtazapine AdvReac Unknown Unknown Verified 02/16/22 14:07 olanzapine AdvReac Unknown Unknown Verified 02/16/22 14:07 rofecoxib AdvReac Unknown Unknown Verified 02/16/22 14:07 valproic acid AdvReac Unknown Unknown Verified 02/16/22 14:07 ceftriaxone AdvReac Verified 02/16/22 14:07 Home Medications Medication Instructions Recorded Confirmed Type docusate sodium 100 mg capsule 100 mg PO BID PRN Constipation 10/22/19 02/16/22 History (Colace) albuterol sulfate 90 mcg/actuation 1 puff inhalation Q4H PRN Wheezing 12/09/19 02/16/22 History aerosol inhaler (Ventolin HFA) polyethylene glycol 3350 17 17 g PO DAILY PRN constipation 01/13/20 02/16/22 Rx gram/dose oral powder (Miralax) #119 grams lancets #100 ea 03/03/20 01/30/22 History blood-glucose meter,continuous #1 ea 09/13/20 01/30/22 History (Dexcom G6 Car Parker misc) blood-glucose sensor (Dexcom G6 #3 ea 09/13/20 01/30/22 History Sensor device) blood-glucose transmitter (Dexcom #1 ea 09/13/20 01/30/22 History G6 Transmitter device) ipratropium bromide 21 mcg (0.03 2 spray intranasal DAILY #30 mL 01/11/21 02/16/22 Rx %) nasal spray epinephrine 0.3 mg/0.3 mL 0.3 mg (0.3 mL) IM DIRECTED PRN 05/03/21 02/16/22 Rx injection, auto-injector Anaphylaxis #1 ea diphenhydramine HCl 25 mg tablet 25 mg PO DAILY PRN itching 05/19/21 02/16/22 History (Benadryl Allergy) hydrocortisone 1 % topical cream 1 applic topical BID PRN Itching 06/14/21 02/16/22 Rx #28.4 grams ondansetron HCl 4 mg tablet 4 mg PO Q6H PRN nausea and 07/07/21 02/16/22 Rx vomiting #30 tabs lactase 9,000 unit tablet (Lactaid 9,000 unit PO QID PRN Lactose 07/22/21 02/16/22 History Fast Act) Intolerance lidocaine 4 % topical patch 2 patch topical UD PRN Pain 07/22/21 02/16/22 History (Salonpas (lidocaine)) melatonin 3 mg disintegrating 3 mg PO HS PRN Insomnia 07/22/21 02/16/22 History tablet nitroglycerin 0.4 mg sublingual 0.4 mg sublingual DIRECTED PRN 07/25/21 02/16/22 Rx tablet Chest Pain #30 tabs oxybutynin chloride 5 mg tablet 5 mg PO TID PRN bladder spasms #90 07/25/21 02/16/22 Rx tabs acetaminophen 500 mg tablet 1,000 mg PO Q6H PRN mild pain/fever 07/28/21 02/16/22 History diphenoxylate-atropine 2.5 1 tab PO BID PRN Diarrhea 07/28/21 02/16/22 History mg-0.025 mg tablet (Lomotil) pen needle, diabetic 31 gauge x #100 ea 08/11/21 01/30/22 Rx 5/16" (BD Ultra-Fine Short Pen Needle) blood sugar diagnostic (OneTouch #200 ea 10/11/21 01/30/22 Rx Ultra Test strips) montelukast 10 mg tablet 10 mg PO QPM #90 tabs 10/19/21 02/16/22 Rx (Singulair) pravastatin 40 mg tablet 40 mg PO .EVERY 48 HOURS #90 tabs 10/19/21 02/16/22 Rx clopidogrel 75 mg tablet (Plavix) 75 mg PO QAM #90 tabs 11/16/21 02/16/22 Rx escitalopram oxalate 20 mg tablet 20 mg PO HS #90 tabs 11/16/21 02/16/22 Rx loperamide 2 mg capsule 4 mg PO UD PRN Diarrhea #20 caps 01/16/22 02/16/22 Rx diclofenac sodium 1 % topical gel See Rx Instructions .Route 01/24/22 02/16/22 History .COMPLEX PRN JOINT PAIN insulin aspart U-100 100 unit/mL 2 unit subcut QDD 01/24/22 02/16/22 History (3 mL) subcutaneous pen (Novolog Flexpen U-100 Insulin aspart) insulin glargine 100 unit/mL (3 20 unit subcut DAILY 01/29/22 02/16/22 History mL) subcutaneous pen (Basaglar KwikPen U-100 Insulin) mirabegron 25 mg tablet,extended 25 mg PO DAILY 01/30/22 02/16/22 History release 24 hr (Myrbetriq) cholecalciferol (vitamin D3) 125 5,000 unit PO DAILY@02/16/22 02/16/22 History mcg (5,000 unit) tablet (Vitamin D3) cyanocobalamin (vitamin B-12) 1,000 mcg PO DAILY@12 02/16/22 02/16/22 History 1,000 mcg tablet (Vitamin B-12) gabapentin 100 mg capsule 100 mg PO DAILY@08,14 02/16/22 02/16/22 History gabapentin 100 mg capsule 200 mg PO DAILY@2200 02/16/22 02/16/22 History nitrofurantoin 100 mg PO BID 02/16/22 02/16/22 History monohydrate/macrocrystals 100 mg capsule pantoprazole 40 mg tablet,delayed 40 mg PO BIDM 02/16/22 02/16/22 History release amlodipine 5 mg tablet 5 mg PO DAILY 30 days #30 tabs 02/22/22 Rx Past Med/Surg History Medical History Acute hypercapnic respiratory failure DEB (acute kidney injury) Anxiety and depression Asthma Breast cancer Chronic back pain Chronic neck pain Chronic pulmonary aspiration Fusion of spine GERD (gastroesophageal reflux disease) History of benign brain tumor History of dysphagia History of esophageal dilatation History of spinal stenosis History of stroke History of uterine cancer Hypertension Left pontine stroke Lymphedema of right arm Meningioma Microalbuminuria due to type 2 diabetes mellitus Microcytic anemia Morbid obesity Neuropathy Obesity hypoventilation syndrome Osteoarthritis PAC (premature atrial contraction) PVC (premature ventricular contraction) Sensorineural hearing loss (SNHL) of both ears Severe obstructive sleep apnea T2DM (type 2 diabetes mellitus) Uterine cancer Weakness Surgical History Difficult airway for intubation History of cardiac catheterization History of cataract surgery History of cholecystectomy History of colonoscopy History of esophagogastroduodenoscopy (EGD) History of knee surgery History of mastectomy History of total abdominal hysterectomy Family History Mother Diabetes Myocardial infarction Hypertension Family history of diabetes mellitus Brother Family history of diabetes mellitus Sister Osteoporosis Arthritis Denies family history of Ovarian cancer Prostate cancer Breast cancer Colorectal cancer Social History Smoking Status: Former smoker Tobacco Type: Cigarettes Age Started Using Tobacco: 15; Age Quit Using Tobacco: 30; packs per day: 1; Second Hand Exposure: No; Hx Alcohol Use: No Hx Substance Use: No Preferred Language: German Communication Ability: Impaired Visual Impairment: Limited Hearing Ability: Hard of Hearing 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: No Beliefs That Will Affect Care: Jew Jew Beliefs: TAOISM marital status: / Current Living Situation: Personal Care Facility Current Living Situation Comment: Assisted living current occupational status: retired Feels Safe at Home: Yes Childhood Exposure to Second-Hand Smoke: No Diet Comment: low carb Dental Care, Regularly: Yes Physical Activity Frequency: Does not Exercise Seatbelt Use: always Sunscreen Use: Yes Assistive Devices: Glasses and Walker Review of Systems Review of Systems: Denies current headache, changes in vision, hearing, taste, and smell, chest pain, cough, abdominal pain, vomiting, diarrhea, hematemesis, melena, and recent falls. All systems have been reviewed and are otherwise negative. Physical Exam Physical Exam: Physical Exam: General: In no acute distress, stated age, chronically ill-appearing HEENT: Normocephalic, atraumatic, no scleral icterus, pupils around round, symmetrical, and reactive to light, Dry mucus membranes, trachea midline, no thyromegaly Chest/Pulm: No respiratory distress, symmetrical chest expansion, clear breath sounds throughout Cardiac: RRR, no murmurs noted Abdomen: Negative for ascites and bruising, normoactive bowel sounds, soft, non-tender to palpation throughout Musculoskeletal: Patient with baseline left-sided weakness, no acute trauma noted on exam Extremities: Radial, dorsalis pedis, and posterior tibial pulses are intact and symmetrical, no edema noted in the BL LE's Skin: Warm, dry, no rashes , lesions, or scars noted Neuro: Alert and oriented to person, place, month, year, and president, no focal defects, CN II-XII tested and intact, finger to nose test negative, no tremors noted Psych: No acute distress,fatigued, calm and cooperative during the exam Results & Data Results & Data ([facility]) Vital Signs (Past 12 Hours) Vital Signs Temp Pulse Pulse Resp BP BP Pulse Ox 02/16/22 13:47 36.6 C 58 L 21 118/45 L 98 02/16/22 12:00 67 23 97 02/16/22 09:52 99 02/16/22 09:44 38.8 C H 68 16 138/58 L 96 02/16/22 09:13 38.8 C H 68 16 130/58 L 90 O2 Del Method O2 Flow Rate 02/16/22 13:47 Nasal Cannula 2 02/16/22 12:00 Nasal Cannula 2 02/16/22 09:52 Room Air 2 02/16/22 09:44 Nasal Cannula 2 02/16/22 09:13 Room Air Laboratory Results Abnormal lab results 02/16/22 02/16/22 Range/Units 09:45 09:45 Hgb 11.7 L (12.0-16.0) g/dl MCV 76.9 L (80.0-100.0) fL MCH 23.9 L (25.0-34.0) pg MCHC 31.0 L (32.0-36.0) g/dL RDW Coeff of Tim 15.0 H (11.5-14.5) % Plt Count 106 L (130-400) K/uL MPV 9.1 L (9.4-12.3) fL Lymph # (Auto) 0.67 L (1.2-3.4) K/uL Immature Gran # (Auto) 0.04 H (0.00-0.02) K/uL Sodium 135 L (136-145) mmol/L BUN 27 H (6-23) mg/dl Creatinine 1.46 H (0.6-1.2) mg/dl Glucose 128 H (70-99(Fasting)) mg/dl Magnesium 1.6 L (1.7-2.4) mg/dl Total Bilirubin 1.7 H (0.2-1.0) mg/dl Troponin I High Sens 49.1 H D Abnormal lab results 02/16/22 02/16/22 02/16/22 Range/Units 09:45 09:45 15:26 Hgb 11.7 L (12.0-16.0) g/dl MCV 76.9 L (80.0-100.0) fL MCH 23.9 L (25.0-34.0) pg MCHC 31.0 L (32.0-36.0) g/dL RDW Coeff of Tim 15.0 H (11.5-14.5) % Plt Count 106 L (130-400) K/uL MPV 9.1 L (9.4-12.3) fL Lymph # (Auto) 0.67 L (1.2-3.4) K/uL Immature Gran # (Auto) 0.04 H (0.00-0.02) K/uL ABG pH 7.34 L (7.35-7.45) ABG pCO2 52 H (35-46) mmHg ABG HCO3 28 H (19-24) mmol/L ABG O2 Saturation 97.7 H (90-95) % Sodium 135 L (136-145) mmol/L BUN 27 H (6-23) mg/dl Creatinine 1.46 H (0.6-1.2) mg/dl Glucose 128 H (70-99(Fasting)) mg/dl Magnesium 1.6 L (1.7-2.4) mg/dl Total Bilirubin 1.7 H (0.2-1.0) mg/dl Troponin I High Sens 49.1 H D (0-14) pg/ml Diagnostic Findings Chest X-Ray 02/16/22 09:52 SINGLE VIEW CHEST CLINICAL HISTORY: Generalized weakness. FINDINGS: 2 AP, portable, upright chest radiographs are compared to study dated 05/19/2021 and correlated with chest CT dated 01/08/2020. The examination is degraded by portable technique and apical lordotic positioning. The cardiomediastinal silhouette is top normal for projection noting atherosclerotic calcification of the thoracic aorta. Chronic interstitial thickening is similar to previous. There is mild bibasilar scarring/atelectasis. The lungs and pleural spaces are otherwise clear. No pneumothorax is seen. The skeletal structures are osteopenic. The bony thorax is grossly intact. Fusion hardware is noted at the thoracolumbar junction. Arthritic change is seen in the shoulders. Surgical clips are noted in the right axilla. IMPRESSION: No active disease in the chest. ACT 112: Negative or not required by law. Electronically signed by: Joey Patterson M.D. 02/16/2022 10:44 AM Abdomen/Pelvis CT 02/16/22 11:45 CT SCAN OF THE ABDOMEN AND PELVIS WITHOUT IV CONTRAST CLINICAL HISTORY: Fever. Right flank pain. Generalized weakness. Nausea. COMPARISON STUDY: Abdominal CT dated 07/28/2021. TECHNIQUE: CT scan of the abdomen and pelvis is performed from the lung bases to the proximal femora. Images are reviewed in the axial, sagittal, and coronal planes. IV contrast was not administered for this examination. A dose lowering technique was utilized adhering to the principles of ALARA. There is streak artifact from extensive metallic spinal hardware. CT DOSE: 727.85 mGy.cm FINDINGS: Lung bases: The heart is normal in size and without pericardial effusion. The mitral annulus is densely calcified. There are scattered calcified granulomas. Peribronchial thickening is noted in the lower lobes. There is bibasilar scarring/atelectasis. No airspace consolidation or pleural effusion is identified. There is a small hiatal hernia. Liver: The unenhanced liver is normal in size, contour, and attenuation. There is no intrahepatic biliary ductal dilatation. Gallbladder: Surgically absent and clips in the gallbladder fossa. Spleen: Normal in size and attenuation. Pancreas: The unenhanced pancreas is moderately atrophic and grossly unremarkable. Adrenal glands: Unremarkable. Kidneys: The unenhanced kidneys are normal in size, heterogeneous, and without hydronephrosis. There are punctate nonobstructing left renal calculi. No right renal calculi are seen. A 3.1 cm exophytic cyst is noted on the left. There Abdominal vasculature: The abdominal aorta is normal in course and caliber noting moderate to advanced atherosclerotic calcification. Bowel: There is no bowel obstruction.. The appendix is normal as visualized. Peritoneum: There is no intraperitoneal free air or abdominal ascites. Lymphadenopathy: None. Pelvic viscera: The bladder is distended, and the wall appears thickened with mild surrounding infiltration. The uterus is surgically absent. No adnexal lesion is seen. Skeletal structures: The skeletal structures are heterogeneously osteopenic. Spondylotic change is seen throughout the spine. There is postoperative change from posterior spinal fusion seen from T12-L4. No lytic or blastic lesions are seen. IMPRESSION: 1. Question cystitis. Correlate with clinical findings and urinalysis. 2. Additional findings as above. ACT 112: Negative or not required by law. Electronically signed by: Joey Patterson M.D. 02/16/2022 1:31 PM ECG Additional Comments: Normal sinus rhythm Normal ECG When compared with ECG of 27-JAN-2022 13:57, Arm lead reversal corrected Confirmed by Milad Wilson ([id number]) on 02/16/2022 12:23:02 PM Code Status & VTE Plan Code Status DNR/DNI VTE Prophylaxis Plan VTE Prophylaxis will be ordered: Yes Supervising Physician Co-Signing Physician Notes During face to face encounter, I obtained a history and physical examination. I reviewed above note and agree with it. I discussed plan of care with Chauncey Velez and patient. Patient admitted for acute pyelonephritis. will continue antibiotics. PG Care Time/CCT Total # of Minutes Spent Total Time Spent with Patient: Total time spent is greater than 50% in coordination of care (as documented) at patient's floor/unit and/or counseling patient: Coding Level of Care Code Established Pt INT OBSERVATION CARE 70M LVL 3 Patient Type Established Medical Decision Making High Complexity Diagnoses Acute pyelonephritis N10 Generalized weakness R53.1 Hypoxia R09.02 Elevated troponin R77.8 Neuropathy G62.9 T2DM (type 2 diabetes mellitus) E11.9 Dysphagia R13.10 Depression F32.9 Hypertension I10 Hypertension type: unspecified Severe obstructive sleep apnea G47.33 Asthma J45.909 GERD (gastroesophageal reflux disease) K21.9 Dyslipidemia E78.5 (1) Hypertension Hypertension type: unspecified Qualified Code(s): I10 - Essential (primary) hypertension
[2022-02-16 15:39] LABS: Base Excess ABG 1.4 mEq/L (-9-1.8); HCO3 ABG 28 mmol/L (19-24); Oxygen Saturation ABG 97.7 % (90-95); PCO2 ABG 52 mmHg (35-46); PO2 ABG 84 mmHg (80-95); pH ABG 7.34 (7.35-7.45)
[2022-02-16 15:44] LABS: Allen Test POS (Pos)
[2022-02-16] MEDS ORDERED: GLUCOSE 40% GEL 15 GM TUBE PO PRN (18:42)
[2022-02-16] MEDS ORDERED: CARBOHYDRATES FOR HYPOGLYCEMIA PO PRN (18:42)
[2022-02-16] MEDS ORDERED: ALBUTEROL HFA 8 GM INHALER INH PRN (18:42)
[2022-02-16] MEDS ORDERED: DIPHENOXYLATE/ATROPINE 2.5/0.025MG TAB PO PRN (18:42)
[2022-02-16] MEDS ORDERED: GLUCOSE 10 TAB/TUBE PO PRN (18:42)
[2022-02-16] MEDS ORDERED: DEXTROSE 50% 50 ML SYRINGE IV PRN (18:42)
[2022-02-16] MEDS ORDERED: OXYBUTYNIN CHLORIDE 5 MG TAB PO PRN (18:42)
[2022-02-16] MEDS ORDERED: CEFEPIME 2,000 MG in SYRINGE 0 ML IV SCH (18:42)
[2022-02-16] MEDS ORDERED: GLUCAGON FOR INJ 1 MG VIAL SQ PRN (18:42)
[2022-02-16] MEDS ORDERED: ONDANSETRON 4 MG OD TAB PO PRN (18:51)
[2022-02-16] MEDS ORDERED: LACTASE 3000 UNIT TAB PO PRN (19:06)
[2022-02-16] MEDS ORDERED: ACETAMINOPHEN 325 MG TAB PO ONE (19:09)
[2022-02-16] MEDS ORDERED: LIDOCAINE 5% 1 PATCH TD PRN (21:00)
[2022-02-16] MEDS: LACTATED RINGER'S 1,000 ML IV SCH (21:01)
[2022-02-16] MEDS: INSULIN ASPART PER UNIT SC SCH (21:02)
[2022-02-16] MEDS: PRAVASTATIN SOD 40 MG TAB PO SCH (21:04)
[2022-02-16] MEDS: PANTOprazole 40 MG TAB PO SCH (21:04)
[2022-02-16] MEDS: CEFEPIME 1,000 MG in SYRINGE 0 ML IV SCH (21:05)
[2022-02-16] MEDS: ENOXAPARIN INJ 40 MG/0.4 ML SYR SQ SCH (21:05)
[2022-02-16] MEDS: METOPROLOL SUCC 50MG EXT REL TAB PO SCH (21:05)
[2022-02-16] MEDS: ESCITALOPRAM OXALATE 20 MG TAB PO SCH (21:05)
[2022-02-16] MEDS: GABAPENTIN 100 MG CAP PO SCH (21:06)
[2022-02-16] MEDS: MONTELUKAST SODIUM 10 MG TABLET PO SCH (21:06)
--- NOTE | 2022-02-16 22:01 | Communication Note ---
Date of Service: February 16, 2022 Was paged by patient's nurse that she was complaining of new diplopia. 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 She has also complained of diplopia in the past, but reports that today at some point (unsure of what time) her diplopia has gotten much worse. On exam there is noticeable asymmetry of pupil positioning and patient does have some difficulty tracking with both eyes to either side. Patient does have some cerebellar signs with clumsy [id number] test bilaterally. Does have mild left upper extremity weakness (4/5 strength throughout) but reports this is chronic. 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 2+ patellar reflexes bilaterally. No dysarthria/aphasia. A+Ox3. Acute on chronic diplopia and +cerebellar signs on exam: Concerning for CVA (although patient is on chronic Aspirin/Plavix). - CT head w/o contrast - CTA head/neck (given that patient had significant vertebral artery stenosis on previous study in 2019) - Q2H neuro checks - consider MRI as well as Neurology consultation, pending above results - will also collect generalized lab eval with CBC/CMP/Mg/hsTrop Resident Activity Tracking Resident Involvement: Resident Care Provided Care Provided: Adult [facility] Medicine
[2022-02-16 22:32] LABS: Basophils # (auto) 0.03 K/uL (0-0.2); Basophils % (auto) 0.6 %; Hematocrit (blood only) 35.5 % (34.1-44.9); Hemoglobin 11.2 g/dl (12.0-16.0); Immature Granulocytes # (auto) 0.02 K/uL (0.00-0.02); Immature Granulocytes % (auto) 0.4 %; Lymphocytes # (auto) 0.25 K/uL (1.2-3.4); Mean Corpuscular Hemoglobin 24.1 pg (25.0-34.0); Mean Corpuscular Hgb Conc 31.5 g/dL (32.0-36.0); Mean Corpuscular Volume 76.3 fL (80.0-100.0); Mean Platelet Volume 9.4 fL (9.4-12.3); Monocytes # (auto) 0.26 K/uL (0.24-0.82); Monocytes % (auto) 5.2 %; Neutrophils # (auto) 4.42 K/uL (1.4-6.5); Neutrophils % (auto) 88.8 %; Platelet Count 94 K/uL (130-400); Platelet Estimate Decreased (Normal); RDW Coefficient of Variation 15.1 % (11.5-14.5); RDW Standard Deviation 41.7 fL (36.4-46.3); Red Blood Count 4.65 M/uL (3.93-5.22); White Blood Count 4.98 K/ul (4.8-10.8)
[2022-02-16] MEDS ORDERED: OPTIRAY 320 500ml IV ONE (22:35)
[2022-02-16 22:38] LABS: Albumin Globulin Ratio 1.1 (0.9-2); Albumin Level 3.4 gm/dl (3.4-5.0); BUN Creatinine Ratio 21.2 (10-20); Bilirubin,Total 1.5 mg/dl (0.2-1.0); Calcium 8.2 mg/dl (8.5-10.1); Creatinine Clr Calc Pharmacy 33.5 ml/min; Est GFR (African American) 43.7 ml/min; Est GFR (Non-African American) 37.7 ml/min; Globulin 3.2 gm/dl (2.5-4.0); Magnesium 1.5 mg/dl (1.7-2.4); Potassium 3.8 mmol/L (3.5-5.1); Total Protein 6.6 gm/dl (6.0-8.3)
[2022-02-16 22:39] LABS: Troponin I High Sensitivity 36.8 pg/ml (0-14)
[2022-02-17] MEDS: MAGNESIUM SULFATE / D5W 1 GM/100 ML BAG IV SCH ×3 (00:13→04:33)
[2022-02-17 04:32] LABS: Appearance Urine Clear (Clear); Bacteria Urine Automated Negative (Negative); Bilirubin Urine Negative (Negative); Blood Urine Trace (Negative); Cast Urine Automated 0 /lpf (0-5); Color Urine Yellow; Epithelial Cell Urine Auto 20-30 /lpf (0-5); Glucose Urine UA Negative (Negative); Ketones Urine Negative (Negative); Leukocyte Esterase Urine 1+ (Negative); Nitrite Urine Negative (Negative); Protein Urine Trace (Negative); RBC Urine Automated 0-4 /hpf (0-4); Specific Gravity Urine 1.027 (1.000-1.030); Urobilinogen Urine Negative (Negative)
[2022-02-17] MEDS: CEFEPIME 1,000 MG in SYRINGE 0 ML IV SCH ×2 (06:17→18:04)
--- NOTE | 2022-02-17 07:10 | CT Scan Report ---
HEAD CT NONCONTRAST CT DOSE: 1244.06 mGy.cm HISTORY: diplopia TECHNIQUE: Multiaxial CT images of the head were performed without the use of intravenous contrast. A utomated exposure control was utilized for this study. A dose lowering technique was utilized adheri ng to the principles of ALARA. Comparison: Head CT 01/26/2022. Findings: The paranasal sinuses and mastoid air cells are clear. The calvarium and skull base are int act. There is no mass, hematoma, midline shift, acute infarct. White matter hypodensity is nonspecifi c but suggestive of microvascular ischemic change. The ventricles and sulci demonstrate mild age-rela cindi involutional changes. Unchanged 1.6 cm calcified meningioma adjacent to the right frontal lobe. Impression: No significant change compared to the prior study. No acute intracranial abnormality. ACT 112: Negative or not required by law. Electronically signed by: Javy Mcdaniel M.D. 02/17/2022 7:08 AM
--- NOTE | 2022-02-17 07:26 | CT Scan Report ---
HEAD CTA HISTORY: diplopia TECHNIQUE: Multiaxial CT images of the head were performed both before and after the intravenous admi nistration of contrast to evaluate the major cerebral vessels. Maximum intensity projection images we re also obtained. A dose lowering technique was utilized adhering to the principles of ALARA. COMPARISON: None. FINDINGS: There is no hematoma, midline shift, or acute infarct. Visualized intracranial internal car otid arteries, distal vertebral arteries, and basilar artery are widely patent. There is no significa nt stenosis, occlusion, or aneurysm seen within the bilateral ACAs, MCAs, or electronics lead. Stable right front al calcified meningioma measuring 1.6 cm. The major dural venous sinuses appear patent. IMPRESSION: No significant stenosis, occlusion, or aneurysm within the [place]. ACT 112: Negative or not required by law. Electronically signed by: Javy Mcdaniel M.D. 02/17/2022 7:25 AM
[2022-02-17] MEDS: MIRABEGRON ER 25 MG TAB PO SCH (08:16)
[2022-02-17] MEDS: GABAPENTIN 100 MG CAP PO SCH ×3 (08:17→20:56)
[2022-02-17] MEDS: CLOPIDOGREL BISULFATE 75 MG TAB PO SCH (08:17)
[2022-02-17] MEDS: PANTOprazole 40 MG TAB PO SCH ×2 (08:18→17:45)
[2022-02-17] MEDS: IPRATROPIUM BROMIDE NASAL SPRAY 0.06% 15ML NAE SCH (08:19)
[2022-02-17] MEDS: LACTATED RINGER'S 1,000 ML IV SCH (08:24)
[2022-02-17] MEDS: INSULIN ASPART PER UNIT SC SCH ×4 (08:24→20:57)
[2022-02-17] MEDS: LANTUS PER UNIT CHARGE SQ SCH (08:38)
[2022-02-17] MEDS: ACETAMINOPHEN 325 MG TAB PO PRN ×3 (08:38→20:55)
--- NOTE | 2022-02-17 09:03 | CT Scan Report ---
CT angio neck with con CLINICAL HISTORY: diplopia TECHNIQUE: CT angiography of the neck was performed following intravenous administration of iodinated contrast. Coronal and sagittal MIPS were obtained from the axial data set and were submitted for rev iew. Automated dose lowering techniques and/or adjustment according to patient size were utilized fo r this examination. All measurements were calculated based on NASCET criteria. Comparison: Comparison is made to MRA neck 02/05/2019 FINDINGS: Lungs and soft tissues are unremarkable. CTA Neck: A 3 vessel aortic arch is shown. Atherosclerotic plaque is present in the aortic arch and at the origin of the great vessels. There is stenosis of the right vertebral artery at the level of C5 which is hemodynamically significant. The right vertebral artery is dominant. IMPRESSION: Hemodynamically significant stenosis of the right vertebral artery at the level of C5. This may possi neda have been present in the prior MRI performed in 2019. Assessment of stenosis of the internal carotid arteries is based on NASCET criteria. ACT 112: Negative or not required by law. Electronically signed by: Reji Jnoes M.D. 02/17/2022 9:01 AM
[2022-02-17 09:24] LABS: Hematocrit (blood only) 36.9 % (34.1-44.9); Hemoglobin 11.3 g/dl (12.0-16.0); Mean Platelet Volume 9.6 fL (9.4-12.3); Platelet Count 81 K/uL (130-400); White Blood Count 3.84 K/ul (4.8-10.8)
[2022-02-17 09:41] LABS: Mean Corpuscular Hemoglobin 23.6 pg (25.0-34.0); Mean Corpuscular Hgb Conc 30.6 g/dL (32.0-36.0); Mean Corpuscular Volume 77.2 fL (80.0-100.0); RDW Standard Deviation 41.9 fL (36.4-46.3); Red Blood Count 4.78 M/uL (3.93-5.22)
[2022-02-17 09:47] LABS: BUN Creatinine Ratio 20.1 (10-20); Calcium 8.4 mg/dl (8.5-10.1); Est GFR (Non-African American) 37.1 ml/min; Magnesium 2.4 mg/dl (1.7-2.4)
--- NOTE | 2022-02-17 12:36 | Hospitalist Progress Note ---
Date of Service February 17, 2022 Assessment & Plan (1) Acute pyelonephritis: Plan: I do not see acute pyelonephritis reported on the CT scan. She does have a urinary tract infection however and generalized weakness. She is on intravenous cefepime, day 2. Urine cultures and blood culture results are pending. (2) Generalized weakness: Plan: Should improve with treatment of UTI. Will order OT and PT assessments when appropriate. Continue supportive care. ABG report noted. pH is normal and P CO2 is probably mildly elevated at baseline. (3) Hypoxia: Plan: Acute hypoxic respiratory failure treated with supplemental oxygen. Suspect mildly elevated PCO2 is chronic based on normal pH. Chest xray is clear. She has known obesity hypoventilation syndrome . Known CAMRON requiring CPAP, fatigue, and chronic lung disease (4) Elevated troponin: Plan: Trending downward. No evidence of acute MD. (5) Neuropathy: Plan: Chronic peripheral neuropathy. Stable. Continue gabapentin (6) T2DM (type 2 diabetes mellitus): Plan: ADA diet. Sliding scale coverage as needed. Continue home lantus at 15 units qam (7) Dysphagia: Plan: Patient has a history of dysphagia and recurrent aspiration after her CVA . Daughter states she does not need a modified diet . Aspiration precautions ordered (8) Depression: Plan: Stable on lexapro (9) Hypertension: Plan: Controlled with metoprolol (10) Severe obstructive sleep apnea: Plan: Stable. HS Cpap ordered (11) Asthma: Plan: Stable. Continue albuterol (12) GERD (gastroesophageal reflux disease): Plan: Stable. Continue pantoprazole (13) Dyslipidemia: Plan: Stable. Continue pravastatin Plan Anticipate eventual discharge back to her home. Will obtain OT and PT assessments when appropriate Admission and Anticipated Discharge Date Admission Date: February 16, 2022 Subjective Not feeling much better yet but it is still early on with antibiotic therapy. No definite evidence of pyelonephritis on CT scan. She does have a urinary tract infection however in the urine cultures and blood cultures results are pending. She is now on intravenous cefepime. This will be adjusted accordingly. Magnesium replacement underway Review of Systems Review of Systems: Constitutional-no fever or chills. Generalized weakness and malaise ENT-no blurred vision, no double vision, no epistaxis, no sore throat Respiratory-no cough, no wheezing, no shortness of breath Cardiac-no palpitations, no chest pain, no syncope GI-no nausea, vomiting, diarrhea, melena, hematochezia -no urinary retention, no urinary incontinence, no dysuria, no hematuria Musculoskeletal-no joint pain, no muscle tenderness Skin-no bruising, no rashes, no pruritus Neuro-no isolated weakness, no paresthesia, no weakness Psych-no depression, no anxiety Physical Exam Physical Exam: General-alert and oriented x3, no fevers, no chills HEENT-head atraumatic and normocephalic, pupils equal and reactive to light, extraocular muscles intact Neck-no lymphadenopathy or thyromegaly, trachea midline Chest-clear to auscultation percussion. No rales wheezing or rhonchi Cardiac-regular rate and rhythm, normal S1 and S2, no murmurs Abdomen-normal bowel sounds, nontender, no hepatosplenomegaly Extremities-no cyanosis, clubbing, or edema Neuro-cranial nerves II through XII intact, motor and sensory function within normal limits, strength symmetrical 5, no focal deficits Psych-normal affect, normal mood Results & Data Results & Data ([facility]) Vital Signs (Past 12 Hours) Vital Signs Temp Pulse Resp BP Pulse Ox O2 Del Method O2 Flow Rate 02/17/22 11:58 37.8 C H 69 18 143/66 H 95 Room Air 02/17/22 07:55 38.3 C H 70 20 169/76 H 100 Nasal Cannula 2 02/17/22 04:00 36.7 C 55 L 20 112/69 99 Nasal Cannula Laboratory Results 02/17/22 09:06 02/17/22 09:06 PG Care Time/CCT Total # of Minutes Spent Total Time Spent with Patient: Total time spent is greater than 50% in coordination of care (as documented) at patient's floor/unit and/or counseling patient: Coding Level of Care Code 28356 Subseq Hosp Care Lvl 3 Diagnoses Acute pyelonephritis N10 Generalized weakness R53.1 Hypoxia R09.02 Elevated troponin R77.8 Neuropathy G62.9 T2DM (type 2 diabetes mellitus) E11.9 Dysphagia R13.10 Depression F32.9 Hypertension I10 Hypertension type: unspecified Severe obstructive sleep apnea G47.33 Asthma J45.909 GERD (gastroesophageal reflux disease) K21.9 Dyslipidemia E78.5 (1) Hypertension Hypertension type: unspecified Qualified Code(s): I10 - Essential (primary) hypertension
[2022-02-17] MEDS: CYANOCOBALAMIN (B-12) 500 MCG TABLET PO SCH (13:33)
[2022-02-17] MEDS: CHOLECALCIFEROL 5,000 UNITS 125 MCG TAB PO SCH (13:34)
[2022-02-17] MEDS: MICONAZOLE NITRATE-7 (100 MG EA SUPP) BOX PV SCH (13:36)
[2022-02-17] MEDS: ENOXAPARIN INJ 40 MG/0.4 ML SYR SQ SCH (18:09)
[2022-02-17] MEDS: ESCITALOPRAM OXALATE 20 MG TAB PO SCH (20:56)
[2022-02-17] MEDS: METOPROLOL SUCC 50MG EXT REL TAB PO SCH (20:56)
[2022-02-17] MEDS: MONTELUKAST SODIUM 10 MG TABLET PO SCH (20:57)
[2022-02-17] MEDS ORDERED: MICONAZOLE NITRATE-7 (100 MG EA SUPP) BOX PV SCH (21:00)
[2022-02-17] MEDS: MELATONIN 3 MG TAB PO PRN (23:38)
[2022-02-18] MEDS: CEFEPIME 1,000 MG in SYRINGE 0 ML IV SCH (06:12)
[2022-02-18] MEDS: ACETAMINOPHEN 325 MG TAB PO PRN (07:51)
[2022-02-18] MEDS: MIRABEGRON ER 25 MG TAB PO SCH (07:52)
[2022-02-18] MEDS: CLOPIDOGREL BISULFATE 75 MG TAB PO SCH (07:52)
[2022-02-18] MEDS: GABAPENTIN 100 MG CAP PO SCH ×3 (07:52→21:58)
[2022-02-18] MEDS: PRAVASTATIN SOD 40 MG TAB PO SCH (07:53)
[2022-02-18] MEDS: PANTOprazole 40 MG TAB PO SCH ×2 (07:53→17:44)
[2022-02-18] MEDS: IPRATROPIUM BROMIDE NASAL SPRAY 0.06% 15ML NAE SCH ×2 (07:54→07:57)
[2022-02-18 08:29] LABS: Hematocrit (blood only) 35.5 % (34.1-44.9); Hemoglobin 10.9 g/dl (12.0-16.0); Mean Corpuscular Hemoglobin 23.7 pg (25.0-34.0); Mean Corpuscular Hgb Conc 30.7 g/dL (32.0-36.0); Mean Corpuscular Volume 77.2 fL (80.0-100.0); Mean Platelet Volume 9.9 fL (9.4-12.3); Platelet Count 90 K/uL (130-400); RDW Standard Deviation 41.7 fL (36.4-46.3); White Blood Count 2.86 K/ul (4.8-10.8)
[2022-02-18] MEDS: LANTUS PER UNIT CHARGE SQ SCH (08:37)
[2022-02-18] MEDS: INSULIN ASPART PER UNIT SC SCH ×4 (08:37→22:04)
[2022-02-18 08:54] LABS: BUN Creatinine Ratio 25.8 (10-20); Calcium 8.6 mg/dl (8.5-10.1); Creatinine Clr Calc Pharmacy 27.7 ml/min; Est GFR (African American) 37.2 ml/min; Est GFR (Non-African American) 32.1 ml/min; Magnesium 2.3 mg/dl (1.7-2.4)
--- NOTE | 2022-02-18 11:56 | Hospitalist Progress Note ---
Date of Service February 18, 2022 Assessment & Plan (1) Acute pyelonephritis: Plan: I do not see acute pyelonephritis reported on the CT scan. She does have a urinary tract infection however and generalized weakness. She is on intravenous cefepime, day 3. Blood cultures remain negative. There is no urine culture reported and this may not have been set up on admission. (2) Generalized weakness: Plan: Improving with treatment of UTI. OT and PT assessments ordered. Continue supportive care. (3) Hypoxia: Plan: Acute hypoxic respiratory failure treated with supplemental oxygen. Suspect mildly elevated PCO2 is chronic based on normal pH. Chest xray is clear. She has known obesity hypoventilation syndrome . Known CAMRON requiring CPAP, fatigue, and chronic lung disease (4) Elevated troponin: Plan: Trending downward. No evidence of acute PA. (5) Neuropathy: Plan: Chronic peripheral neuropathy. Stable. Continue gabapentin (6) T2DM (type 2 diabetes mellitus): Plan: ADA diet. Sliding scale coverage as needed. Continue home lantus (7) Dysphagia: Plan: Patient has a history of dysphagia and recurrent aspiration after her CVA . Daughter states she does not need a modified diet . Aspiration precautions ordered (8) Depression: Plan: Stable on lexapro (9) Hypertension: Plan: Controlled with metoprolol (10) Severe obstructive sleep apnea: Plan: Stable. HS Cpap ordered (11) Asthma: Plan: Stable. Continue albuterol (12) GERD (gastroesophageal reflux disease): Plan: Stable. Continue pantoprazole (13) Dyslipidemia: Plan: Stable. Continue pravastatin (14) Pancytopenia: Plan: Mild. Will follow Plan Anticipate eventual discharge back to her home. OT and PT assessments requested Admission and Anticipated Discharge Date Admission Date: February 17, 2022 Subjective Alert and oriented. She has neuropathic symptoms of the left proximal leg but no significant physical findings. Urine culture was apparently not done on admission. Blood cultures are negative. Cefepime day 3. Mild hypomagnesemia has been corrected. She is pancytopenic due to underlying disease. Otherwise stable. OT and PT assessments have been requested Review of Systems Review of Systems: Constitutional-no fever or chills. Generalized weakness and malaise ENT-no blurred vision, no double vision, no epistaxis, no sore throat Respiratory-no cough, no wheezing, no shortness of breath Cardiac-no palpitations, no chest pain, no syncope GI-no nausea, vomiting, diarrhea, melena, hematochezia -no urinary retention, no urinary incontinence, no dysuria, no hematuria Musculoskeletal-no joint pain, no muscle tenderness Skin-no bruising, no rashes, no pruritus Neuro-no isolated weakness, no paresthesia, no weakness Psych-no depression, no anxiety Physical Exam Physical Exam: General-alert and oriented x3, no fevers, no chills HEENT-head atraumatic and normocephalic, pupils equal and reactive to light, extraocular muscles intact Neck-no lymphadenopathy or thyromegaly, trachea midline Chest-clear to auscultation percussion. No rales wheezing or rhonchi Cardiac-regular rate and rhythm, normal S1 and S2, no murmurs Abdomen-normal bowel sounds, nontender, no hepatosplenomegaly Extremities-no cyanosis, clubbing, or edema Neuro-cranial nerves II through XII intact, motor and sensory function within normal limits, strength symmetrical 5, no focal deficits Psych-normal affect, normal mood Results & Data Results & Data ([facility]) Vital Signs (Past 12 Hours) Vital Signs Temp Pulse Pulse Resp BP Pulse Ox O2 Del Method 02/18/22 07:22 56 L 02/18/22 07:21 36.6 C 55 L 20 123/72 98 CPAP 02/18/22 03:46 36.4 C L 60 18 95/60 L 93 Room Air Laboratory Results 02/18/22 08:12 02/18/22 08:12 PG Care Time/CCT Total # of Minutes Spent Total Time Spent with Patient: Total time spent is greater than 50% in coordination of care (as documented) at patient's floor/unit and/or counseling patient: Coding Level of Care Code 89416 Subseq Hosp Care Lvl 3 Diagnoses Acute pyelonephritis N10 Generalized weakness R53.1 Hypoxia R09.02 Elevated troponin R77.8 Neuropathy G62.9 T2DM (type 2 diabetes mellitus) E11.9 Dysphagia R13.10 Depression F32.9 Hypertension I10 Hypertension type: unspecified Severe obstructive sleep apnea G47.33 Asthma J45.909 GERD (gastroesophageal reflux disease) K21.9 Dyslipidemia E78.5 Pancytopenia D61.818 (1) Hypertension Hypertension type: unspecified Qualified Code(s): I10 - Essential (primary) hypertension
[2022-02-18] MEDS: CYANOCOBALAMIN (B-12) 500 MCG TABLET PO SCH (12:25)
[2022-02-18] MEDS: CHOLECALCIFEROL 5,000 UNITS 125 MCG TAB PO SCH (12:25)
[2022-02-18] MEDS ORDERED: ENOXAPARIN INJ 30 MG/0.3 ML SYR SQ SCH (18:00)
[2022-02-18] MEDS ORDERED: OXYMETAZOLINE 0.05% 30 ML BTL NAE ONE (20:28)
[2022-02-18] MEDS: METOPROLOL SUCC 50MG EXT REL TAB PO SCH (21:58)
[2022-02-18] MEDS: ESCITALOPRAM OXALATE 20 MG TAB PO SCH (21:58)
[2022-02-18] MEDS: MONTELUKAST SODIUM 10 MG TABLET PO SCH (21:58)
[2022-02-18] MEDS: MICONAZOLE NITRATE-7 (100 MG EA SUPP) BOX PV SCH (22:04)
[2022-02-18] MEDS: MELATONIN 3 MG TAB PO PRN (22:13)
[2022-02-19] MEDS ORDERED: CEFEPIME 1,000 MG in SYRINGE 0 ML IV SCH (06:00)
[2022-02-19 06:59] LABS: Hemoglobin 10.8 g/dl (12.0-16.0); Mean Corpuscular Hemoglobin 24.1 pg (25.0-34.0); Mean Corpuscular Hgb Conc 31.8 g/dL (32.0-36.0); Mean Corpuscular Volume 75.9 fL (80.0-100.0); Mean Platelet Volume 10.4 fL (9.4-12.3); Platelet Count 100 K/uL (130-400); RDW Coefficient of Variation 14.8 % (11.5-14.5); Red Blood Count 4.48 M/uL (3.93-5.22); White Blood Count 2.71 K/ul (4.8-10.8)
[2022-02-19 07:06] LABS: BUN Creatinine Ratio 29.6 (10-20); Calcium 8.7 mg/dl (8.5-10.1); Creatinine Clr Calc Pharmacy 30.9 ml/min; Est GFR (African American) 42.6 ml/min; Est GFR (Non-African American) 36.7 ml/min; Magnesium 1.9 mg/dl (1.7-2.4); Potassium 4.1 mmol/L (3.5-5.1)
[2022-02-19] MEDS: CLOPIDOGREL BISULFATE 75 MG TAB PO SCH (08:38)
[2022-02-19] MEDS: PANTOprazole 40 MG TAB PO SCH ×2 (08:38→17:00)
[2022-02-19] MEDS: GABAPENTIN 100 MG CAP PO SCH ×3 (08:39→21:34)
[2022-02-19] MEDS: MIRABEGRON ER 25 MG TAB PO SCH (08:39)
[2022-02-19] MEDS: IPRATROPIUM BROMIDE NASAL SPRAY 0.06% 15ML NAE SCH (08:40)
[2022-02-19] MEDS: INSULIN ASPART PER UNIT SC SCH ×4 (08:44→21:30)
[2022-02-19] MEDS: LANTUS PER UNIT CHARGE SQ SCH (08:44)
[2022-02-19] MEDS: CYANOCOBALAMIN (B-12) 500 MCG TABLET PO SCH (12:08)
[2022-02-19] MEDS: CHOLECALCIFEROL 5,000 UNITS 125 MCG TAB PO SCH (12:08)
--- NOTE | 2022-02-19 12:09 | Hospitalist Progress Note ---
Date of Service February 19, 2022 Assessment & Plan (1) Acute pyelonephritis: Plan: I do not see acute pyelonephritis reported on the CT scan. She does have a urinary tract infection however and generalized weakness. She is on intravenous cefepime, day 4. Blood cultures remain negative. Urine culture done on February 17 is negative. However, this was obtained while she was on antibiotic therapy (2) Generalized weakness: Plan: Improving with treatment of UTI. Continue OT and PT. Continue supportive care. (3) Hypoxia: Plan: Acute hypoxic respiratory failure treated with supplemental oxygen. Suspect mildly elevated PCO2 is chronic based on normal pH. Chest xray is clear. She has known obesity hypoventilation syndrome . Known CAMRON requiring CPAP, fatigue, and chronic lung disease (4) Elevated troponin: Plan: Trending downward. No evidence of acute ID. (5) Neuropathy: Plan: Chronic peripheral neuropathy. Stable. Continue gabapentin (6) T2DM (type 2 diabetes mellitus): Plan: ADA diet. Sliding scale coverage as needed. Continue home lantus (7) Dysphagia: Plan: Patient has a history of dysphagia and recurrent aspiration after her CVA . Daughter states she does not need a modified diet . Aspiration precautions ordered (8) Depression: Plan: Stable on lexapro (9) Hypertension: Plan: Controlled with metoprolol (10) Severe obstructive sleep apnea: Plan: Stable. HS Cpap ordered (11) Asthma: Plan: Stable. Continue albuterol (12) GERD (gastroesophageal reflux disease): Plan: Stable. Continue pantoprazole (13) Dyslipidemia: Plan: Stable. Continue pravastatin (14) Pancytopenia: Plan: Mild. Will follow (15) Lightheadedness: Plan: Nonspecific complaints and she states this also occurs when she is supine. However, blood pressure and heart rate are on the low side. We will decrease metoprolol dosage and continue to monitor. Plan Anticipate eventual discharge back to her home. OT and PT assessments requested Admission and Anticipated Discharge Date Admission Date: February 17, 2022 Subjective Alert and oriented but she has multiple nonspecific complaints including lightheadedness but no vertigo. Her blood pressure and heart rate are on the low side and metoprolol dosage has been decreased. Will reorder OT and PT evaluations. She remains on cefepime, day 4, 4 her suspected UTI. Urine culture however was nondiagnostic. Blood cultures are negative. Overall she is stable Review of Systems Review of Systems: Constitutional-no fever or chills. Generalized weakness and malaise ENT-no blurred vision, no double vision, no epistaxis, no sore throat Respiratory-no cough, no wheezing, no shortness of breath Cardiac-no palpitations, no chest pain, no syncope GI-no nausea, vomiting, diarrhea, melena, hematochezia -no urinary retention, no urinary incontinence, no dysuria, no hematuria Musculoskeletal-no joint pain, no muscle tenderness Skin-no bruising, no rashes, no pruritus Neuro-no isolated weakness, no paresthesia, no weakness Psych-no depression, no anxiety Physical Exam Physical Exam: General-alert and oriented x3, no fevers, no chills HEENT-head atraumatic and normocephalic, pupils equal and reactive to light, extraocular muscles intact Neck-no lymphadenopathy or thyromegaly, trachea midline Chest-clear to auscultation percussion. No rales wheezing or rhonchi Cardiac-regular rate and rhythm, normal S1 and S2, no murmurs Abdomen-normal bowel sounds, nontender, no hepatosplenomegaly Extremities-no cyanosis, clubbing, or edema Neuro-cranial nerves II through XII intact, motor and sensory function within normal limits, strength symmetrical 5, no focal deficits Psych-normal affect, normal mood Results & Data Results & Data ([facility]) Vital Signs (Past 12 Hours) Vital Signs Temp Pulse Pulse Resp BP Pulse Ox O2 Del Method 02/19/22 10:56 36.5 C 74 20 158/76 H 98 Room Air 02/19/22 08:00 Room Air 02/19/22 07:45 36.3 C L 59 L 20 107/67 95 CPAP 02/19/22 07:13 56 L 02/19/22 03:17 36.7 C 62 16 137/73 92 Room Air, CPAP O2 Flow Rate 02/19/22 10:56 02/19/22 08:00 02/19/22 07:45 2 02/19/22 07:13 02/19/22 03:17 Laboratory Results 02/19/22 06:15 02/19/22 06:15 PG Care Time/CCT Total # of Minutes Spent Total Time Spent with Patient: Total time spent is greater than 50% in coordination of care (as documented) at patient's floor/unit and/or counseling patient: Coding Level of Care Code 84332 Subseq Hosp Care Lvl 3 Diagnoses Acute pyelonephritis N10 Generalized weakness R53.1 Hypoxia R09.02 Elevated troponin R77.8 Neuropathy G62.9 T2DM (type 2 diabetes mellitus) E11.9 Dysphagia R13.10 Depression F32.9 Hypertension I10 Hypertension type: unspecified Severe obstructive sleep apnea G47.33 Asthma J45.909 GERD (gastroesophageal reflux disease) K21.9 Dyslipidemia E78.5 Pancytopenia D61.818 Lightheadedness R42 (1) Hypertension Hypertension type: unspecified Qualified Code(s): I10 - Essential (primary) hypertension
[2022-02-19] MEDS: CEFEPIME 1,000 MG in SYRINGE 0 ML IV SCH (17:32)
[2022-02-19] MEDS ORDERED: ENOXAPARIN INJ 40 MG/0.4 ML SYR SQ SCH (18:00)
[2022-02-19] MEDS: MICONAZOLE NITRATE-7 (100 MG EA SUPP) BOX PV SCH (21:33)
[2022-02-19] MEDS: MONTELUKAST SODIUM 10 MG TABLET PO SCH (21:34)
[2022-02-19] MEDS: ESCITALOPRAM OXALATE 20 MG TAB PO SCH (21:35)
[2022-02-19] MEDS: METOPROLOL SUCC 25MG EXT REL TAB PO SCH (21:35)
[2022-02-20] MEDS: CEFEPIME 1,000 MG in SYRINGE 0 ML IV SCH ×2 (05:31→17:00)
[2022-02-20] MEDS: MIRABEGRON ER 25 MG TAB PO SCH (08:04)
[2022-02-20] MEDS: CLOPIDOGREL BISULFATE 75 MG TAB PO SCH (08:04)
[2022-02-20] MEDS: GABAPENTIN 100 MG CAP PO SCH ×3 (08:04→21:17)
[2022-02-20] MEDS: PRAVASTATIN SOD 40 MG TAB PO SCH (08:06)
[2022-02-20] MEDS: PANTOprazole 40 MG TAB PO SCH ×2 (08:06→17:00)
[2022-02-20] MEDS: LANTUS PER UNIT CHARGE SQ SCH (08:13)
[2022-02-20] MEDS: INSULIN ASPART PER UNIT SC SCH ×4 (08:16→21:45)
[2022-02-20 09:21] LABS: Hematocrit (blood only) 34.9 % (34.1-44.9); Hemoglobin 10.9 g/dl (12.0-16.0); Platelet Count 115 K/uL (130-400); White Blood Count 3.31 K/ul (4.8-10.8)
[2022-02-20 09:43] LABS: Mean Corpuscular Hemoglobin 23.5 pg (25.0-34.0); Mean Corpuscular Hgb Conc 31.2 g/dL (32.0-36.0); Mean Corpuscular Volume 75.2 fL (80.0-100.0); RDW Coefficient of Variation 14.7 % (11.5-14.5); RDW Standard Deviation 39.8 fL (36.4-46.3); Red Blood Count 4.64 M/uL (3.93-5.22)
[2022-02-20 09:45] LABS: BUN Creatinine Ratio 26.7 (10-20); Creatinine Clr Calc Pharmacy 31.9 ml/min; Est GFR (African American) 44.1 ml/min; Est GFR (Non-African American) 38.1 ml/min; Potassium 4.1 mmol/L (3.5-5.1)
[2022-02-20] MEDS: IPRATROPIUM BROMIDE NASAL SPRAY 0.06% 15ML NAE SCH (11:46)
[2022-02-20] MEDS: CYANOCOBALAMIN (B-12) 500 MCG TABLET PO SCH (11:47)
[2022-02-20] MEDS: CHOLECALCIFEROL 5,000 UNITS 125 MCG TAB PO SCH (11:48)
--- NOTE | 2022-02-20 12:20 | Hospitalist Progress Note ---
Date of Service February 20, 2022 Assessment & Plan (1) Acute pyelonephritis: Plan: -No evidence of acute pyelonephritis seen on CT scan. -She does have a urinary tract infection however and generalized weakness. - She is on intravenous cefepime, day 5. - Blood cultures remain negative. Urine culture done on February 17 is negative. -Will discontinue antibiotics after today (2) Generalized weakness: Plan: Improving with treatment of UTI. Continue OT and PT. Continue supportive care. (3) Hypoxia: Plan: -Acute hypoxic respiratory failure treated with supplemental oxygen. - Suspect mildly elevated PCO2 is chronic based on normal pH. Chest xray is clear. - She has known obesity hypoventilation syndrome . Known CAMRON requiring CPAP, fatigue, and chronic lung disease (4) Elevated troponin: Plan: Trending downward. No evidence of acute DE. (5) Neuropathy: Plan: Chronic peripheral neuropathy. Stable. Continue gabapentin Patient says she wants the gabapentin 4 times a day, but I explained to her its dosed up to three times daily (6) T2DM (type 2 diabetes mellitus): Plan: ADA diet. Sliding scale coverage as needed. Continue home lantus (7) Dysphagia: Plan: Patient has a history of dysphagia and recurrent aspiration after her CVA . Daughter states she does not need a modified diet . Aspiration precautions ordered She gets oesophageal dilation every once in a while (8) Depression: Plan: Stable on lexapro (9) Hypertension: Plan: Controlled with metoprolol (10) Severe obstructive sleep apnea: Plan: Stable. HS Cpap ordered (11) Asthma: Plan: Stable. Continue albuterol (12) GERD (gastroesophageal reflux disease): Plan: Stable. Continue pantoprazole (13) Dyslipidemia: Plan: Stable. Continue pravastatin (14) Pancytopenia: Plan: Mild. Will follow (15) Lightheadedness: Plan: Nonspecific complaints and she states this also occurs when she is supine. However, blood pressure and heart rate are on the low side. We will decrease metoprolol dosage and continue to monitor. Plan Anticipate eventual discharge back to her home. Hopefully tomorrow Admission and Anticipated Discharge Date Admission Date: February 17, 2022 Subjective patient seen and examined, complained of neuropathic pains Review of Systems Review of Systems: All systems reviewed are negative, apart from the ones contained in the history. Physical Exam Physical Exam: The patient is awake, alert and oriented 3, well developed and well nourished, normocephalic and atraumatic, lying in bed and in no acute distress. HEENT--PERRL, EOMI, mucous membranes and oropharynx mildly dry Neck--supple. No JVD. No bruits. Thyroid normal, trachea midline, no adenopathy. Heart--normal S1 and S2. No murmurs, rubs or gallops. Lungs--clear bilaterally, no respiratory distress, no accessory muscle use. Abdomen--normal bowel sounds and soft. Mild epigastric and left sided abdominal pain Extremities--no cyanosis or clubbing. No edema. Dermatologic--normal skin turgor, normal color, no abnormal lymph nodes, no rash. Neurologic--cranial nerves II through XII grossly intact. Rheumatologic--normal range of motion. Psychiatric--normal affect. Results & Data Results & Data ([facility]) Vital Signs (Past 12 Hours) Vital Signs Temp Pulse Resp BP Pulse Ox O2 Del Method 02/20/22 11:06 98.1 F 56 L 20 142/81 H 94 Room Air 02/20/22 07:27 97.9 F 52 L 20 160/82 H 96 Room Air 02/20/22 03:15 97.9 F 59 L 18 117/76 95 Room Air PG Care Time/CCT Total # of Minutes Spent Total Time Spent with Patient: Total time spent is greater than 50% in coordination of care (as documented) at patient's floor/unit and/or counseling patient: Coding Level of Care Code 28202 Subseq Hosp Care Lvl 2 Diagnoses Acute pyelonephritis N10 Generalized weakness R53.1 Hypoxia R09.02 Elevated troponin R77.8 Neuropathy G62.9 T2DM (type 2 diabetes mellitus) E11.9 Dysphagia R13.10 Depression F32.9 Hypertension I10 Hypertension type: unspecified Severe obstructive sleep apnea G47.33 Asthma J45.909 GERD (gastroesophageal reflux disease) K21.9 Dyslipidemia E78.5 Pancytopenia D61.818 Lightheadedness R42 Time Spent (min) 35 (1) Hypertension Hypertension type: unspecified Qualified Code(s): I10 - Essential (primary) hypertension
[2022-02-20] MEDS: ENOXAPARIN INJ 30 MG/0.3 ML SYR SQ SCH (17:01)
[2022-02-20] MEDS: MELATONIN 3 MG TAB PO PRN (21:17)
[2022-02-20] MEDS: MONTELUKAST SODIUM 10 MG TABLET PO SCH (21:18)
[2022-02-20] MEDS: ESCITALOPRAM OXALATE 20 MG TAB PO SCH (21:18)
[2022-02-20] MEDS: METOPROLOL SUCC 25MG EXT REL TAB PO SCH (21:19)
[2022-02-20] MEDS: MICONAZOLE NITRATE-7 (100 MG EA SUPP) BOX PV SCH (21:19)
[2022-02-21] MEDS: CEFEPIME 1,000 MG in SYRINGE 0 ML IV SCH (05:22)
[2022-02-21] MEDS: IPRATROPIUM BROMIDE NASAL SPRAY 0.06% 15ML NAE SCH (07:32)
[2022-02-21] MEDS: CLOPIDOGREL BISULFATE 75 MG TAB PO SCH (07:33)
[2022-02-21] MEDS: MIRABEGRON ER 25 MG TAB PO SCH (07:34)
[2022-02-21] MEDS: GABAPENTIN 100 MG CAP PO SCH ×3 (07:34→21:12)
[2022-02-21] MEDS: PANTOprazole 40 MG TAB PO SCH ×2 (07:36→16:45)
[2022-02-21] MEDS: LANTUS PER UNIT CHARGE SQ SCH (08:44)
[2022-02-21] MEDS: INSULIN ASPART PER UNIT SC SCH ×4 (08:45→21:12)
[2022-02-21] MEDS: CYANOCOBALAMIN (B-12) 500 MCG TABLET PO SCH (11:20)
[2022-02-21] MEDS: CHOLECALCIFEROL 5,000 UNITS 125 MCG TAB PO SCH (11:20)
--- NOTE | 2022-02-21 11:34 | Hospitalist Progress Note ---
Date of Service February 21, 2022 Assessment & Plan (1) Acute pyelonephritis: Plan: -No evidence of acute pyelonephritis seen on CT scan. -She does have a urinary tract infection however and generalized weakness. - She completed a course of intravenous cefepime - Blood cultures remain negative. Urine culture done on February 17 is negative. (2) Generalized weakness: Plan: Improving with treatment of UTI. Continue OT and PT. Continue supportive care. (3) Orthostatic lightheadedness: Plan: Positive Orthostatic BP change 166/82 lying, 122/77 standing up Has been educated to get up from a lying position in stages (4) Hypoxia: Plan: -Acute hypoxic respiratory failure treated with supplemental oxygen. Etiology is likely CAMRON, given her history -Now resolved, patient on room air (5) Elevated troponin: Plan: Trending downward. No evidence of acute [place]. (6) Neuropathy: Plan: Chronic peripheral neuropathy. Stable. Continue gabapentin Patient says she wants the gabapentin 4 times a day, but I explained to her its dosed up to three times daily (7) T2DM (type 2 diabetes mellitus): Plan: ADA diet. Sliding scale coverage as needed. 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 Daughter states she does not need a modified diet . Aspiration precautions ordered She gets oesophageal dilation every once in a while (9) Depression: Plan: Stable on lexapro (10) Hypertension: Plan: Controlled with metoprolol (11) Severe obstructive sleep apnea: Plan: Stable. HS Cpap ordered (12) Asthma: Plan: Stable. Continue albuterol (13) GERD (gastroesophageal reflux disease): Plan: Stable. Continue pantoprazole (14) Dyslipidemia: Plan: Stable. Continue pravastatin (15) Pancytopenia: Plan: Mild. Will follow (16) Lightheadedness: Plan: Likely due to orthostaitic BP change Plan Anticipate eventual discharge back to her home. Hopefully tomorrow Admission and Anticipated Discharge Date Admission Date: February 17, 2022 Subjective patient seen and examined, family by the bedside, she complained of dizziness, especially on ambulating Review of Systems Review of Systems: All systems reviewed are negative, apart from the ones contained in the history. Physical Exam Physical Exam: The patient is awake, alert and oriented 3, well developed and well nourished, normocephalic and atraumatic, lying in bed and in no acute distress. HEENT--PERRL, EOMI, mucous membranes and oropharynx mildly dry Neck--supple. No JVD. No bruits. Thyroid normal, trachea midline, no adenopathy. Heart--normal S1 and S2. No murmurs, rubs or gallops. Lungs--clear bilaterally, no respiratory distress, no accessory muscle use. Abdomen--normal bowel sounds and soft. Mild epigastric and left sided abdominal pain Extremities--no cyanosis or clubbing. No edema. Dermatologic--normal skin turgor, normal color, no abnormal lymph nodes, no rash. Neurologic--cranial nerves II through XII grossly intact. Rheumatologic--normal range of motion. Psychiatric--normal affect. Results & Data Results & Data ([facility]) Vital Signs (Past 12 Hours) Vital Signs Temp Pulse Pulse Resp BP Pulse Ox O2 Del Method 02/21/22 06:15 59 L 02/21/22 07:30 97.7 F 62 16 133/68 94 Room Air 02/21/22 07:00 Room Air 02/21/22 03:23 97.7 F 65 16 145/73 H 93 Room Air PG Care Time/CCT Total # of Minutes Spent Total Time Spent with Patient: Total time spent is greater than 50% in coordination of care (as documented) at patient's floor/unit and/or counseling patient: Coding Level of Care Code 91150 Subseq Hosp Care Lvl 2 Diagnoses Acute pyelonephritis N10 Generalized weakness R53.1 Orthostatic lightheadedness R42 Hypoxia R09.02 Elevated troponin R77.8 Neuropathy G62.9 T2DM (type 2 diabetes mellitus) E11.9 Dysphagia R13.10 Depression F32.9 Hypertension I10 Hypertension type: unspecified Severe obstructive sleep apnea G47.33 Asthma J45.909 GERD (gastroesophageal reflux disease) K21.9 Dyslipidemia E78.5 Pancytopenia D61.818 Lightheadedness R42 Time Spent (min) 35 (1) Hypertension Hypertension type: unspecified Qualified Code(s): I10 - Essential (primary) hypertension
[2022-02-21] MEDS: ENOXAPARIN INJ 30 MG/0.3 ML SYR SQ SCH (16:45)
[2022-02-21] MEDS: MONTELUKAST SODIUM 10 MG TABLET PO SCH (21:13)
[2022-02-21] MEDS: ESCITALOPRAM OXALATE 20 MG TAB PO SCH (21:13)
[2022-02-21] MEDS: METOPROLOL SUCC 25MG EXT REL TAB PO SCH (21:14)
[2022-02-21] MEDS: MELATONIN 3 MG TAB PO PRN (21:19)
[2022-02-21] MEDS: MICONAZOLE NITRATE-7 (100 MG EA SUPP) BOX PV SCH (21:19)
[2022-02-22] MEDS: CLOPIDOGREL BISULFATE 75 MG TAB PO SCH (07:38)
[2022-02-22] MEDS: MIRABEGRON ER 25 MG TAB PO SCH (07:38)
[2022-02-22] MEDS: GABAPENTIN 100 MG CAP PO SCH ×3 (07:38→21:31)
[2022-02-22] MEDS: PRAVASTATIN SOD 40 MG TAB PO SCH (07:38)
[2022-02-22] MEDS: IPRATROPIUM BROMIDE NASAL SPRAY 0.06% 15ML NAE SCH (07:39)
[2022-02-22] MEDS: PANTOprazole 40 MG TAB PO SCH ×2 (07:39→16:23)
[2022-02-22 07:57] LABS: Hematocrit (blood only) 37.5 % (34.1-44.9); Hemoglobin 11.6 g/dl (12.0-16.0); Mean Corpuscular Hemoglobin 23.4 pg (25.0-34.0); Mean Corpuscular Hgb Conc 30.9 g/dL (32.0-36.0); Mean Corpuscular Volume 75.8 fL (80.0-100.0); Mean Platelet Volume 9.7 fL (9.4-12.3); Platelet Count 147 K/uL (130-400); RDW Coefficient of Variation 14.7 % (11.5-14.5); RDW Standard Deviation 39.4 fL (36.4-46.3); Red Blood Count 4.95 M/uL (3.93-5.22); White Blood Count 4.99 K/ul (4.8-10.8)
[2022-02-22] MEDS: INSULIN ASPART PER UNIT SC SCH ×4 (08:13→21:30)
[2022-02-22] MEDS: LANTUS PER UNIT CHARGE SQ SCH (08:14)
[2022-02-22 08:20] LABS: BUN Creatinine Ratio 32.3 (10-20); Calcium 9.2 mg/dl (8.5-10.1); Creatinine Clr Calc Pharmacy 30.8 ml/min; Est GFR (African American) 44.6 ml/min; Est GFR (Non-African American) 38.4 ml/min; Potassium 4.1 mmol/L (3.5-5.1)
[2022-02-22] MEDS: CYANOCOBALAMIN (B-12) 500 MCG TABLET PO SCH (11:37)
[2022-02-22] MEDS: CHOLECALCIFEROL 5,000 UNITS 125 MCG TAB PO SCH (11:37)
--- NOTE | 2022-02-22 13:38 | Hospitalist Progress Note ---
Date of Service February 22, 2022 Assessment & Plan (1) Acute pyelonephritis: Plan: -No evidence of acute pyelonephritis seen on CT scan. -She does have a urinary tract infection however and generalized weakness. - She completed a course of intravenous cefepime - Blood cultures remain negative. Urine culture done on February 17 is negative. (2) Generalized weakness: Plan: Improving with treatment of UTI. Continue OT and PT. Continue supportive care. (3) Orthostatic lightheadedness: Plan: Positive Orthostatic BP change 166/82 lying, 122/77 standing up Has been educated to get up from a lying position in stages (4) Hypoxia: Plan: -Acute hypoxic respiratory failure treated with supplemental oxygen. Etiology is likely CAMRON, given her history -Now resolved, patient on room air (5) Elevated troponin: Plan: most likely due to demand ischemia trop has trended down (6) Neuropathy: Plan: Chronic peripheral neuropathy. Stable. Continue gabapentin Patient says she wants the gabapentin 4 times a day, but I explained to her its dosed up to three times daily (7) T2DM (type 2 diabetes mellitus): Plan: ADA diet. Sliding scale coverage as needed. 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 Daughter states she does not need a modified diet . Aspiration precautions ordered She gets oesophageal dilation every once in a while (9) Depression: Plan: Stable on lexapro (10) Hypertension: Plan: Controlled with metoprolol (11) Severe obstructive sleep apnea: Plan: Stable. HS Cpap ordered (12) Asthma: Plan: Stable. Continue albuterol (13) GERD (gastroesophageal reflux disease): Plan: Stable. Continue pantoprazole (14) Dyslipidemia: Plan: Stable. Continue pravastatin (15) Pancytopenia: Plan: Mild. Will follow (16) Lightheadedness: Plan: Likely due to orthostaitic BP change Plan patient and daughter want placement in [facility]. Will consult Admission and Anticipated Discharge Date Admission Date: February 17, 2022 Subjective patient seen and examined, family by the bedside, she complained of dizziness, especially on ambulating Review of Systems Review of Systems: All systems reviewed are negative, apart from the ones contained in the history. Physical Exam Physical Exam: The patient is awake, alert and oriented 3, well developed and well nourished, normocephalic and atraumatic, lying in bed and in no acute distress. HEENT--PERRL, EOMI, mucous membranes and oropharynx mildly dry Neck--supple. No JVD. No bruits. Thyroid normal, trachea midline, no adenopathy. Heart--normal S1 and S2. No murmurs, rubs or gallops. Lungs--clear bilaterally, no respiratory distress, no accessory muscle use. Abdomen--normal bowel sounds and soft. Mild epigastric and left sided abdominal pain Extremities--no cyanosis or clubbing. No edema. Dermatologic--normal skin turgor, normal color, no abnormal lymph nodes, no rash. Neurologic--cranial nerves II through XII grossly intact. Rheumatologic--normal range of motion. Psychiatric--normal affect. Results & Data Results & Data ([facility]) Vital Signs (Past 12 Hours) Vital Signs Temp Pulse Pulse Resp BP Pulse Ox O2 Del Method 02/22/22 11:51 97.9 F 62 20 142/83 H 91 Room Air 02/22/22 08:13 97.5 F L 59 L 20 155/88 H 94 Room Air 02/22/22 07:24 53 L 02/22/22 04:00 97.3 F L 58 L 20 138/73 95 CPAP PG Care Time/CCT Total # of Minutes Spent Total Time Spent with Patient: Total time spent is greater than 50% in coordination of care (as documented) at patient's floor/unit and/or counseling patient: Coding Level of Care Code 26728 Subseq Hosp Care Lvl 2 Diagnoses Acute pyelonephritis N10 Generalized weakness R53.1 Orthostatic lightheadedness R42 Hypoxia R09.02 Elevated troponin R77.8 Neuropathy G62.9 T2DM (type 2 diabetes mellitus) E11.9 Dysphagia R13.10 Depression F32.9 Hypertension I10 Hypertension type: unspecified Severe obstructive sleep apnea G47.33 Asthma J45.909 GERD (gastroesophageal reflux disease) K21.9 Dyslipidemia E78.5 Pancytopenia D61.818 Lightheadedness R42 Time Spent (min) 35 (1) Hypertension Hypertension type: unspecified Qualified Code(s): I10 - Essential (primary) hypertension
[2022-02-22] MEDS: ENOXAPARIN INJ 30 MG/0.3 ML SYR SQ SCH (16:23)
[2022-02-22] MEDS: MONTELUKAST SODIUM 10 MG TABLET PO SCH (21:31)
[2022-02-22] MEDS: ESCITALOPRAM OXALATE 20 MG TAB PO SCH (21:31)
[2022-02-22] MEDS: MICONAZOLE NITRATE-7 (100 MG EA SUPP) BOX PV SCH (21:32)
[2022-02-22] MEDS: MELATONIN 3 MG TAB PO PRN (22:30)
[2022-02-23] MEDS ORDERED: LANTUS PER UNIT CHARGE SQ SCH (09:00)
[2022-02-23] MEDS: PANTOprazole 40 MG TAB PO SCH ×2 (09:05→17:47)
[2022-02-23] MEDS: MIRABEGRON ER 25 MG TAB PO SCH (09:08)
[2022-02-23] MEDS: GABAPENTIN 100 MG CAP PO SCH ×2 (09:09→14:11)
[2022-02-23] MEDS: CLOPIDOGREL BISULFATE 75 MG TAB PO SCH (09:09)
[2022-02-23] MEDS: IPRATROPIUM BROMIDE NASAL SPRAY 0.06% 15ML NAE SCH (09:11)
[2022-02-23] MEDS: INSULIN ASPART PER UNIT SC SCH ×3 (09:23→17:45)
--- NOTE | 2022-02-23 10:53 | CT Scan Report ---
CT SCAN OF THE BRAIN WITHOUT IV CONTRAST CLINICAL HISTORY: Head pressure. COMPARISON STUDY: CT of the brain dated 02/16/2022. TECHNIQUE: Unenhanced axial CT scan of the brain is performed from the vertex to the skull base. A do se lowering technique was utilized adhering to the principles of ALARA. CT DOSE: 537.48 mGy.cm FINDINGS: Brain parenchyma: There is age-related involutional change noting moderate subcortical and periventri cular microangiopathic disease. There is no hemorrhage, mass effect, or evidence of acute territorial ischemia by CT criteria. A 1.6 cm calcified meningioma along the right convexity is unchanged. Fregoso- white matter differentiation is preserved. No extra-axial fluid collection is seen. Ventricles, sulci, cisterns: Prominent secondary to involutional change. Intracranial vasculature: There is atherosclerotic calcification of the cavernous carotid arteries. Calvarium: Unremarkable. Sinuses and mastoids: The visualized paranasal sinuses are clear. The mastoid air cells are well pneu matized. Orbits: The bony orbits are grossly intact. There are bilateral ocular lens implants. IMPRESSION: There is no hemorrhage, mass effect, or evidence of acute territorial ischemia by CT antwon flores. ACT 112: Negative or not required by law. Electronically signed by: Joey Patterson M.D. 02/23/2022 10:52 AM
[2022-02-23] MEDS: CHOLECALCIFEROL 5,000 UNITS 125 MCG TAB PO SCH (12:20)
[2022-02-23] MEDS: CYANOCOBALAMIN (B-12) 500 MCG TABLET PO SCH (12:21)
--- NOTE | 2022-02-23 13:31 | Discharge Summary ---
Date of Service February 23, 2022 Admission HPI Per Admitting Provider Liv is an 81 year old female resident at [facility] with a PMH significant for DM2 w/ peripheral neuropathy, acute hypercapnic respiratory failure, CKD3, neurogenic claudication due to L-spinal stenosis s/p L fusion in January 2020, obesity hypoventilation syndrome, chronic radiation cystitis, thrombocytopenia, anxiety and depression, asthma, chronic pulmonary aspiration due to previous stroke and chronic dysphagia, HTN, obesity who presented to the [facility] ED on 02/16/22 with complaints of generalized weakness and nausea. In the ED the patient was found to be febrile at 38.8 C, hemodynamically stable, and stable on 2L NC. Labs were remarkable for WBC WNL, stable Hgb at 11.7, slightly decreased MCV at 76.9 and MCHC at 31, thrombocytopenia of 106 (appears to be chronic and range from 90-120's), stable renal function with Cr of 1.46, mag of 1.6 otherwise stable electrolytes, total bili of 1.7, high sensitivity troponin of 49, TSH of 0.956, and negative Covid and flu screening. Chest xray was negative for acute findings. CT of the abdomen and pelvis without IV contrast showed "Question cystitis. Correlate with clinical findings and urinalysis. Additional findings as above." and was without other acute findings. ECg was without acute ST segment or T-wave changes. While the patient's current UA is unimpressive she has been on Macrobid for UTI, which may be masking a c urrent infection. Due to the patient's extensive history of allergic reactions to numerous and history of urine growing Pseudomonas the patient was started on Cefepime due to concerns for possible pyelonephritis. Prior to admission the patient was also given 1g IV tylenol, 1L NSS bolus, and 4 mg IV zofran. At the time of the exam the patient was lying in bed in no acute distress with her daughter (Also her POA) sitting bedside. The majority of the history was obtained from the patient's daughter who is also her POA. Her daughter states that the patient started to develop UTI symptoms again on 02/10/22. The patient states that she has been experiencing dysuria, increased urinary frequency, fevers, and chills. She is resident at [facility], her daughter states that there was confusion with her initial Urine sample and because of this she was not started on antibiotics until Sunday02/13/22. Her daughter states that the patient was started on Macrobid on 02/13 but it did not seem to be helping. Her daughter states that the patient has been very tired over the past week, sleeping most of the day. At baseline her daughter states that the patient normally is much more talkative and asks her providers lots of questions. Her daughter states that the patient was hospitalized at [facility] last month and was treated for a UTI. Per chart review, the patient was found to have a UTI during her admission from 01/25-01/29. She was initially started on Ceftriaxone but experienced profound weakness and fatigue. Because of this the Ceftriaxone was held and she was switch to PO Keflex, which she tolerated well. Myasthenia screen labs were obtained during her admission due to the weakness, after review they were negative. Her daughter states that the patient has been scheduled for an outpatient Penicillin challenge with an Civil Engineering Intern but this has been delayed due to her recent hospitalizations. During my exam the patient is fatigued and does fall asleep at times. She was noted to be on 2L NC at the start of my exam. I turned her oxygen off at the start of my exam and she desaturated into the low 90's. She was easy to wake, follows commands, and is completely oriented during my exam. The patient has a history of CVA with residual left sided weakness. 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 She does not wear oxygen at home but does use Cpap at night and has the history of obesity hypoventilation syndrome. I spoke to the patient and her daughter regarding code status, the patient is a DNR/DNI. Principal Diagnosis UTI, orthostatic hypotension Discharge Exam The patient is awake, alert and oriented 3, well developed and well nourished, normocephalic and atraumatic, lying in bed and in no acute distress. HEENT--PERRL, EOMI, mucous membranes and oropharynx mildly dry Neck--supple. No JVD. No bruits. Thyroid normal, trachea midline, no adenopathy. Heart--normal S1 and S2. No murmurs, rubs or gallops. Lungs--clear bilaterally, no respiratory distress, no accessory muscle use. Abdomen--normal bowel sounds and soft. Mild epigastric and left sided abdominal pain Extremities--no cyanosis or clubbing. No edema. Dermatologic--normal skin turgor, normal color, no abnormal lymph nodes, no rash. Neurologic--cranial nerves II through XII grossly intact. Rheumatologic--normal range of motion. Psychiatric--normal affect. Discharge Data Allergies Allergy/AdvReac Type Severity Reaction Status Date / Time cantaloupe Allergy Severe THROAT Verified 02/16/22 14:07 CLOSES celecoxib [From Celebrex] Allergy Severe CAUSED Verified 02/16/22 14:07 STROKE melon Allergy Severe THROAT Verified 02/16/22 14:07 CLOSES meperidine Allergy Severe almost Verified 02/16/22 14:07 "closed throat" midodrine Allergy Severe "almost Verified 02/16/22 14:07 closed throat" Penicillins Allergy Severe ANAPHYLAXIS Verified 02/16/22 14:07 sulfamethoxazole Allergy Severe THROAT Verified 02/16/22 14:07 CLOSED trimethoprim Allergy Severe THROAT Verified 02/16/22 14:07 CLOSED watermelon Allergy Severe THROAT Verified 02/16/22 14:07 CLOSES diphenoxylate Allergy Intermediate Unknown Verified 02/16/22 14:07 metronidazole [From Flagyl] Allergy Intermediate Hives Verified 02/16/22 14:07 DENILSON Inhibitors Allergy Unknown unknown to Verified 02/16/22 14:07 pt atropine Allergy Unknown Unknown Verified 02/16/22 14:07 carvedilol Allergy Unknown Unknown Verified 02/16/22 14:07 clonazepam [From Klonopin] Allergy Unknown Unknown Verified 02/16/22 14:07 doxycycline Allergy Unknown Unknown Verified 02/16/22 14:07 furosemide [From Lasix] Allergy Unknown Unknown Verified 02/16/22 14:07 Histamine H2 Inhibitors Allergy Unknown unknown to Verified 02/16/22 14:07 pt Iodinated Contrast Media Allergy Unknown JULY 2017 Verified 02/16/22 14:07 [facility] -- TOLERATED WITH SLOW INFUSION PER PATIENT nitrofurantoin Allergy Unknown Unknown Verified 02/16/22 14:07 phenazopyridine Allergy Unknown Unknown Verified 02/16/22 14:07 ranitidine Allergy Unknown Unknown Verified 02/16/22 14:07 repaglinide Allergy Unknown Unknown Verified 02/16/22 14:07 rosiglitazone Allergy Unknown Unknown Verified 02/16/22 14:07 tolterodine [From Detrol] Allergy Unknown Unknown Verified 02/16/22 14:07 ciprofloxacin [From Cipro] AdvReac Severe throat Verified 02/16/22 14:07 swelling citalopram [From Celexa] AdvReac Severe SEE COMMENT Verified 02/16/22 14:07 diazepam AdvReac Severe SEDATION Verified 02/16/22 14:07 LASTING TOO LONG prednisone AdvReac Severe BSG Verified 02/16/22 14:07 ELEVATED TO THE 500'S glyburide AdvReac Intermediate SEVERE Verified 02/16/22 14:07 ABDOMINAL PAIN meloxicam [From Mobic] AdvReac Intermediate SICK TO Verified 02/16/22 14:07 STOMACH metformin AdvReac Intermediate SEVERE Verified 02/16/22 14:07 ABDOMINAL PAIN oxycodone AdvReac Intermediate SEVERE Verified 02/16/22 14:07 WITHDRAWAL SYMPTOMS WHEN TRYING TO STOP TAKING paroxetine AdvReac Intermediate DID NOT Verified 02/16/22 14:07 HELP temazepam AdvReac Intermediate DID NOT Verified 02/16/22 14:07 HELP tramadol AdvReac Intermediate Vomiting Verified 02/16/22 14:07 albuterol AdvReac Unknown UNK Verified 02/16/22 14:07 carbamazepine AdvReac Unknown Unknown Verified 02/16/22 14:07 ibuprofen AdvReac Unknown Unknown Verified 02/16/22 14:07 lisinopril AdvReac Unknown UNK Verified 02/16/22 14:07 mirtazapine AdvReac Unknown Unknown Verified 02/16/22 14:07 olanzapine AdvReac Unknown Unknown Verified 02/16/22 14:07 rofecoxib AdvReac Unknown Unknown Verified 02/16/22 14:07 valproic acid AdvReac Unknown Unknown Verified 02/16/22 14:07 ceftriaxone AdvReac Verified 02/16/22 14:07 Ordered Studies 02/16/22 11:45 CT Abd and Pelvis [CT abd pelvis wo con] Stat 02/16/22 21:41 CT head/brain wo con Urgent 02/16/22 21:44 CTA head w con [CT angio head w con] Urgent CTA neck with con [CT angio neck with con] Urgent 02/23/22 10:12 CT head/brain wo con Urgent Hospital Course (1) Acute pyelonephritis: -No evidence of acute pyelonephritis seen on CT scan. -She does have a urinary tract infection however and generalized weakness. - She completed a course of intravenous cefepime - Blood cultures remain negative. Urine culture done on February 17 is negative. (2) Generalized weakness: Improving with treatment of UTI. Continue OT and PT. Continue supportive care. (3) Orthostatic lightheadedness: Positive Orthostatic BP change 166/82 lying, 122/77 standing up Has been educated to get up from a lying position in stages (4) Hypoxia: -Acute hypoxic respiratory failure treated with supplemental oxygen. Etiology is likely CAMRON, given her history -Now resolved, patient on room air (5) Elevated troponin: most likely due to demand ischemia trop has trended down (6) Neuropathy: Chronic peripheral neuropathy. Stable. Continue gabapentin Patient says she wants the gabapentin 4 times a day, but I explained to her its dosed up to three times daily (7) T2DM (type 2 diabetes mellitus): ADA diet. Sliding scale coverage as needed. Continue home lantus (8) Dysphagia: Patient has a history of dysphagia and recurrent aspiration after her CVA . Daughter states she does not need a modified diet . Aspiration precautions ordered She gets oesophageal dilation every once in a while (9) Depression: Stable on lexapro (10) Hypertension: Controlled with metoprolol (11) Severe obstructive sleep apnea: Stable. HS Cpap ordered (12) Asthma: Stable. Continue albuterol (13) GERD (gastroesophageal reflux disease): Stable. Continue pantoprazole (14) Dyslipidemia: Stable. Continue pravastatin (15) Pancytopenia: Mild. Will follow (16) Lightheadedness: Likely due to orthostaitic BP change Plan patient and daughter want placement in [facility]. Will consult SW Total Time Total Time Spent Total Time Spent (In Minutes): 35 Discharge Plan Discharge Items Patient Disposition: Transfer [facility] Reason For Visit: DIZZINESS, NAUSEA Discharge Diagnosis: UTI, significant Orthostasis Activity: Resume your previous activity Non-emergency contact: Primary Care Provider Call non-emergency contact if: you have any medication questions Follow-up/Referrals: Darwin Lugo III, CRNP [Primary Care Provider] - 03/02/22 9:20 am Diet: Regular Addtl Attending Provider Instructions: Please make appointment to follow up with your regular PCP As I already adviced you, please when in a Lying position, first sit up for a few minutes before standing or walking to avoid dizziness. Due to your low heart rate, please stop taking metoprolol until you see your credentialing specialist. I have prescribed a new medicine, Amlodipine to help control your blood pressure Pending Studies at Discharge: No Stand-Alone Forms: My [facility], Smoking Cessation Skilled Items Patient informed of condition?: Yes DNR: Yes Discharge Level of Care: Skilled Communicable Disease: No Discharge Prognosis: Stable Lines: None Urinary Catheter: No Medications and DC Order Prescriptions: New amlodipine 5 mg tablet 5 mg PO DAILY 30 Days Qty: 30 0RF Continued epinephrine 0.3 mg/0.3 mL auto-injector 0.3 mg IM DIRECTED PRN (Reason: Anaphylaxis) Qty: 1 0RF hydrocortisone 1 % cream 1 applic topical BID PRN (Reason: Itching) Qty: 28.4 2RF (DME) pen needle, diabetic [BD Ultra-Fine Short Pen Needle] 31 gauge x 5/16" needle See Rx Instructions .ROUTE .MEDSUPPLY Qty: 100 3RF Rx Instructions: Use as directed 1 per day with insulin injection (DME) OneTouch Ultra Test Strip See Rx Instructions .Route Qty: 200 2RF Rx Instructions: Test 4 times a day montelukast [Singulair] 10 mg tablet 10 mg PO QPM Qty: 90 3RF pravastatin 40 mg tablet 40 mg PO .EVERY 48 HOURS Qty: 90 1RF clopidogrel [Plavix] 75 mg tablet 75 mg PO QAM Qty: 90 3RF escitalopram oxalate 20 mg tablet 20 mg PO HS Qty: 90 3RF loperamide 2 mg capsule 4 mg PO UD PRN (Reason: Diarrhea) Qty: 20 0RF Rx Instructions: take 2 capsules after first diarrhea Myrbetriq 25 mg tablet extended release 24 hr 25 mg PO DAILY Rx Instructions: Per task from [place] on 01/30/22 to continue. (DME) lancets Misc See Rx Instructions .ROUTE .MEDSUPPLY Qty: 100 Rx Instructions: As directed (DME) Dexcom G6 Sensor Device See Rx Instructions .ROUTE .MEDSUPPLY Qty: 3 Rx Instructions: As directed (DME) Dexcom G6 Posting Clerk Misc See Rx Instructions .ROUTE .MEDSUPPLY Qty: 1 Rx Instructions: As directed (DME) Dexcom G6 Transmitter Device See Rx Instructions .ROUTE .MEDSUPPLY Qty: 1 Rx Instructions: As directed ipratropium bromide 21 mcg (0.03 %) spray,non-aerosol 2 spray intranasal DAILY Qty: 30 2RF Rx Instructions: administer into each nostril oxybutynin chloride 5 mg tablet 5 mg PO TID PRN (Reason: bladder spasms) Qty: 90 3RF nitroglycerin 0.4 mg tablet, sublingual 0.4 mg sublingual DIRECTED PRN (Reason: Chest Pain) Qty: 30 0RF Rx Instructions: PLACE ONE TABLET UNDER THE TONGUE EVERY 5 MINUTES FOR UP TO 3 DOSES OVER 15 MINUTES IF NEEDED FOR CHEST PAIN ondansetron HCl 4 mg tablet 4 mg PO Q6H PRN (Reason: nausea and vomiting) Qty: 30 3RF docusate sodium [Colace] 100 mg capsule 100 mg PO BID PRN (Reason: Constipation) albuterol sulfate [Ventolin HFA] 90 mcg/actuation HFA aerosol inhaler 1 puff INHALATION Q4H PRN (Reason: Wheezing) polyethylene glycol 3350 [Miralax] 17 gram/dose powder 17 g PO DAILY PRN (Reason: constipation) Qty: 119 0RF insulin aspart U-100 [Novolog Flexpen U-100 Insulin] 100 unit/mL (3 mL) insulin pen 2 unit subcut QDD Rx Instructions: Take 2 units daily with evening meal. diclofenac sodium 1 % gel See Rx Instructions .ROUTE .COMPLEX PRN (Reason: JOINT PAIN) Rx Instructions: APPLY 4GM TOPICALLY TO SINGLE KNEE, ANKLE, AND FOOT (FOOT INCLUDES SOLE/TOES/TOP OF FOOT) FOUR TIMES DAILY NEEDED FOR JOINT PAIN insulin glargine [Basaglar KwikPen U-100 Insulin] 100 unit/mL (3 mL) insulin pen 20 unit SUBCUT DAILY diphenhydramine HCl [Benadryl Allergy] 25 mg tablet 25 mg PO DAILY PRN (Reason: itching) lidocaine [Salonpas (lidocaine)] 4 % Adhesive Patch,Medicated 2 patch TOPICAL UD PRN (Reason: Pain) Rx Instructions: apply 2 patches to back on for 12 hours off for 12 hours Lactaid Fast Act 9,000 unit Tablet 9,000 unit PO QID PRN (Reason: Lactose Intolerance) Rx Instructions: administer with meals and snacks melatonin 3 mg Tablet,Disintegrating 3 mg PO HS PRN (Reason: Insomnia) diphenoxylate-atropine [Lomotil] 2.5-0.025 mg Tablet 1 tab PO BID PRN (Reason: Diarrhea) acetaminophen 500 mg tablet 1,000 mg PO Q6H MDD 3g PRN (Reason: mild pain/fever) gabapentin 100 mg capsule 200 mg PO DAILY@2200 nitrofurantoin monohyd/m-cryst 100 mg capsule 100 mg PO BID Rx Instructions: Started am of 02/15/22 cyanocobalamin (vitamin B-12) [Vitamin B-12] 1,000 mcg tablet 1,000 mcg PO DAILY@12 pantoprazole 40 mg tablet,delayed release (DR/EC) 40 mg PO BIDM gabapentin 100 mg capsule 100 mg PO DAILY@08,14 Rx Instructions: orally; 100 mg with breakfast and lunch and 200 mg with dinner cholecalciferol (vitamin D3) [Vitamin D3] 125 mcg (5,000 unit) tablet 5,000 unit PO DAILY@12 Discontinued metoprolol succinate [Toprol XL] 50 mg tablet extended release 24 hr 50 mg PO HS Discharge Orders: Discharge Order (Routine); Ordered 02/23/22 Ordered By: Parmjit Healy Admission Data Admit Date/Time: 02/17/22 12:18 Attending Provider: Parmjit Healy Admit Provider: Gilberto Bronson Primary Care Provider: Darwin Lugo III Other Providers: [facility] Coding Level of Care Code D/C DAY MANAGEMENT >30 MINS Diagnoses Acute pyelonephritis N10 Generalized weakness R53.1 Orthostatic lightheadedness R42 Hypoxia R09.02 Elevated troponin R77.8 Neuropathy G62.9 T2DM (type 2 diabetes mellitus) E11.9 Dysphagia R13.10 Depression F32.9 Hypertension I10 Hypertension type: unspecified Severe obstructive sleep apnea G47.33 Asthma J45.909 GERD (gastroesophageal reflux disease) K21.9 Dyslipidemia E78.5 Pancytopenia D61.818 Lightheadedness R42 Time Spent (min) 35
[2022-02-23] MEDS: ENOXAPARIN INJ 30 MG/0.3 ML SYR SQ SCH (17:46)
== END 2022-02-23 18:10 | DRG 689 ==
LOC: ED 09:34 → 2N 09:34 → SUATTDRO 14:53 → 2N 18:03 → SUATTDRO 02-17 12:18

== ENCOUNTER 2022-03-31 19:48 | Inpatient (IN) ==
--- NOTE | 2022-03-31 20:06 | Emergency Department Note ---
Impression & Plan Stroke-like symptom ADMIT ED Provider Note HPI: The patient is an 81-year-old female who presents the emergency department from her nursing facility over concern for left-sided weakness. Patient states that her symptoms began last evening around 5 PM (approximately 27 hours prior to arrival) with some weakness on the left side. She states that at this time it was mild but has progressively gotten worse until her presentation today. On arrival here to the ED the patient is alert, she does exhibit some drift of the left upper extremity and left lower extremity on arrival, no appreciable facial droop is noted. She has symmetrical facial movements on exam. Patient states she does have some subjective blurriness of her vision but visual archibald appear intact on my exam. Patient denies any chest pain or shortness of breath, denies any vomiting. Patient is otherwise alert and hemodynamically stable on arrival. ROS: -Neuro: Left-sided weakness *10 point review systems was conducted and is otherwise negative unless stated above *Outpatient medications and allergy history reviewed PE: General: Alert HEENT: Normocephalic, trachea midline Eyes: Extraocular eye movement is intact, no scleral erythema Pulmonary: Clear to auscultation bilaterally, no wheezing Cardio: Regular rate and rhythm GI: Abdomen is soft, nontender : No suprapubic tenderness MSK: No evidence of trauma or malformation of the extremities, no edema Skin: No evidence of rash Neuro: Alert, no focal deficits Psychiatric: Cooperative compliance monitor: - An order was placed for continuous cardiac monitoring - Patient was noted to be in sinus rhythm with a rate of 75 EKG: Rate: 69 Rhythm: Normal sinus rhythm Intervals: Within normal limits ST changes: No ST elevation Time: 2002 Preliminary Findings Only See Final Report For Complete Findings CTA HEAD: Vascular anatomy appears conventional. No large vessel occlusion is seen. No evidence for dissection or aneurysm. Radiologist: Blayne Andrews MD CTA NECK: There is mild atherosclerotic disease of the carotid bulbs without evidence for hemodynamically significant stenosis. No dissection. Radiologist: Blayne Andrews MD Interventions provided in ED: -Aspirin NIH STROKE SCALE: 1A: Level of consciousness Alert; keenly responsive 0 1B: Ask month and age Both questions right 0 1C: 'Blink eyes' & 'squeeze hands' Performs both tasks 0 2: Horizontal extraocular movements Normal 0 3: Visual archibald No visual loss 0 4: Facial palsy Normal symmetry 0 5A: Left arm motor drift Drift, but doesn't hit bed +1 5B: Right arm motor drift No drift for 10 seconds 0 6A: Left leg motor drift Drift, but doesn't hit bed +1 6B: Right leg motor drift No drift for 5 seconds 0 7: Limb Ataxia No ataxia 0 8: Sensation Mild-moderate loss: less sharp/more dull +1 9: Language/aphasia Normal; no aphasia 0 10: Dysarthria Normal 0 11: Extinction/inattention No abnormality 0 TOTAL NIH SCORE = 3 Medical Decision Making: The patient is a 81-year-old female who presents emergency department chief complaint of left-sided weakness for about the past 24 hours. She notes her symptoms were worsening during this timeframe at her nursing facility and therefore was brought to the ED for further assessment. On arrival the patient does have an NIH score of 3, she has left-sided drift of the upper extremity and lower extremity as well as a sensation of some numbness in her left upper extremity. She denies any chest pain, she is otherwise hemodynamically stable. CT imaging of the head as well as CT angiography does not show any evidence of acute stroke, no large vessel occlusion, patient is not considered a candidate for tPA as she is well outside the window. She was given aspirin here in the ED, the remainder of her work-up is largely unremarkable. On my reassessment she continues with left-sided weakness, she does have a history of ischemic disease with a previous CVA/pontine infarct. I feel she would benefit from admission for observation and MRI imaging in the morning. Patient was given aspirin in the ED, case was discussed with the on-call hospitalist for [facility], patient was admitted in stable condition for further care. Diagnosis: 1. Strokelike symptoms 2. Left-sided weakness 3. Left upper extremity numbness Disposition: Admission Keith Robert DO Emergency Medicine Past Med/Surg History Medical History Acute hypercapnic respiratory failure DEB (acute kidney injury) Anxiety and depression Asthma Breast cancer Chronic back pain Chronic neck pain Chronic pulmonary aspiration Fusion of spine GERD (gastroesophageal reflux disease) History of benign brain tumor History of dysphagia History of esophageal dilatation History of spinal stenosis History of stroke History of uterine cancer Hypertension Left pontine stroke Lymphedema of right arm Meningioma Microalbuminuria due to type 2 diabetes mellitus Microcytic anemia Morbid obesity Neuropathy Obesity hypoventilation syndrome Osteoarthritis PAC (premature atrial contraction) PVC (premature ventricular contraction) Sensorineural hearing loss (SNHL) of both ears Severe obstructive sleep apnea T2DM (type 2 diabetes mellitus) Uterine cancer Weakness Surgical History Difficult airway for intubation History of cardiac catheterization History of cataract surgery History of cholecystectomy History of colonoscopy History of esophagogastroduodenoscopy (EGD) History of knee surgery History of mastectomy History of total abdominal hysterectomy Family History Mother Diabetes Myocardial infarction Hypertension Family history of diabetes mellitus Brother Family history of diabetes mellitus Sister Osteoporosis Arthritis Denies family history of Ovarian cancer Prostate cancer Breast cancer Colorectal cancer Social History Smoking Status: Never smoker Tobacco Type: Cigarettes Age Started Using Tobacco: 15; Age Quit Using Tobacco: 30; packs per day: 1; Second Hand Exposure: No; Hx Alcohol Use: No Hx Substance Use: No Preferred Language: Indonesian Communication Ability: Impaired Visual Impairment: Limited Hearing Ability: Hard of Hearing Band Tacker Required: No Beliefs That Will Affect Care: Baptism Baptism Beliefs: BUDDHISM marital status: / Current Living Situation: Personal Care Facility Current Living Situation Comment: Assisted living current occupational status: retired Feels Safe at Home: Yes Childhood Exposure to Second-Hand Smoke: No Diet Comment: low carb Dental Care, Regularly: Yes Physical Activity Frequency: Does not Exercise Seatbelt Use: always Sunscreen Use: Yes Assistive Devices: Glasses and Walker Allergies Allergies Allergy/AdvReac Type Severity Reaction Status Date / Time cantaloupe Allergy Severe THROAT Verified 03/31/22 23:10 CLOSES celecoxib [From Celebrex] Allergy Severe CAUSED Verified 03/31/22 23:10 STROKE melon Allergy Severe THROAT Verified 03/31/22 23:10 CLOSES meperidine Allergy Severe almost Verified 03/31/22 23:10 "closed throat" midodrine Allergy Severe "almost Verified 03/31/22 23:10 closed throat" Penicillins Allergy Severe ANAPHYLAXIS Verified 03/31/22 23:10 sulfamethoxazole Allergy Severe THROAT Verified 03/31/22 23:10 CLOSED trimethoprim Allergy Severe THROAT Verified 03/31/22 23:10 CLOSED watermelon Allergy Severe THROAT Verified 03/31/22 23:10 CLOSES diphenoxylate Allergy Intermediate Unknown Verified 03/31/22 23:10 metronidazole [From Flagyl] Allergy Intermediate Hives Verified 03/31/22 23:10 DENILSON Inhibitors Allergy Unknown unknown to Verified 03/31/22 23:10 pt atropine Allergy Unknown Unknown Verified 03/31/22 23:10 carvedilol Allergy Unknown Unknown Verified 03/31/22 23:10 clonazepam [From Klonopin] Allergy Unknown Unknown Verified 03/31/22 23:10 doxycycline Allergy Unknown Unknown Verified 03/31/22 23:10 furosemide [From Lasix] Allergy Unknown Unknown Verified 03/31/22 23:10 Histamine H2 Inhibitors Allergy Unknown unknown to Verified 03/31/22 23:10 pt Iodinated Contrast Media Allergy Unknown JULY 2017 Verified 03/31/22 23:10 [facility] -- TOLERATED WITH SLOW INFUSION PER PATIENT nitrofurantoin Allergy Unknown Unknown Verified 03/31/22 23:10 phenazopyridine Allergy Unknown Unknown Verified 03/31/22 23:10 ranitidine Allergy Unknown Unknown Verified 03/31/22 23:10 repaglinide Allergy Unknown Unknown Verified 03/31/22 23:10 rosiglitazone Allergy Unknown Unknown Verified 03/31/22 23:10 tolterodine [From Detrol] Allergy Unknown Unknown Verified 03/31/22 23:10 ciprofloxacin [From Cipro] AdvReac Severe throat Verified 03/31/22 23:10 swelling citalopram [From Celexa] AdvReac Severe SEE COMMENT Verified 03/31/22 23:10 diazepam AdvReac Severe SEDATION Verified 03/31/22 23:10 LASTING TOO LONG prednisone AdvReac Severe BSG Verified 03/31/22 23:10 ELEVATED TO THE 500'S glyburide AdvReac Intermediate SEVERE Verified 03/31/22 23:10 ABDOMINAL PAIN meloxicam [From Mobic] AdvReac Intermediate SICK TO Verified 03/31/22 23:10 STOMACH metformin AdvReac Intermediate SEVERE Verified 03/31/22 23:10 ABDOMINAL PAIN oxycodone AdvReac Intermediate SEVERE Verified 03/31/22 23:10 WITHDRAWAL SYMPTOMS WHEN TRYING TO STOP TAKING paroxetine AdvReac Intermediate DID NOT Verified 03/31/22 23:10 HELP tramadol AdvReac Intermediate Vomiting Verified 03/31/22 23:10 albuterol AdvReac Unknown UNK Verified 03/31/22 23:10 carbamazepine AdvReac Unknown Unknown Verified 03/31/22 23:10 ibuprofen AdvReac Unknown Unknown Verified 03/31/22 23:10 lisinopril AdvReac Unknown UNK Verified 03/31/22 23:10 mirtazapine AdvReac Unknown Unknown Verified 03/31/22 23:10 olanzapine AdvReac Unknown Unknown Verified 03/31/22 23:10 rofecoxib AdvReac Unknown Unknown Verified 03/31/22 23:10 valproic acid AdvReac Unknown Unknown Verified 03/31/22 23:10 ceftriaxone AdvReac Unknown Verified 03/31/22 23:10 Home Meds Home Medications Medication Instructions Recorded Confirmed lancets #100 ea 03/03/20 03/15/22 blood-glucose meter,continuous #1 ea 09/13/20 03/15/22 (Dexcom G6 Burrer Machine misc) blood-glucose sensor (Dexcom G6 #3 ea 09/13/20 03/15/22 Sensor device) blood-glucose transmitter (Dexcom #1 ea 09/13/20 03/15/22 G6 Transmitter device) diphenhydramine HCl 25 mg tablet 25 mg PO DAILY PRN itching 05/19/21 03/31/22 (Benadryl Allergy) melatonin 3 mg disintegrating 3 mg PO HS PRN Insomnia 07/22/21 03/31/22 tablet insulin aspart U-100 100 unit/mL 2 unit subcut BID 01/24/22 03/31/22 (3 mL) subcutaneous pen (Novolog Flexpen U-100 Insulin aspart) cholecalciferol (vitamin D3) 125 5,000 unit PO DAILY@12 02/16/22 03/31/22 mcg (5,000 unit) tablet (Vitamin D3) cyanocobalamin (vitamin B-12) 1,000 mcg PO DAILY@12 02/16/22 03/31/22 1,000 mcg tablet (Vitamin B-12) pantoprazole 40 mg tablet,delayed 40 mg PO AMPM 02/16/22 03/31/22 release albuterol sulfate 90 mcg/actuation 2 puff inhalation Q4H PRN Wheezing 03/03/22 03/31/22 aerosol inhaler (Ventolin HFA) diclofenac sodium 1 % topical gel See Rx Instructions .Route 03/03/22 03/31/22 .COMPLEX PRN JOINT PAIN gabapentin 100 mg capsule 100 mg PO QID 03/03/22 03/31/22 insulin glargine 100 unit/mL (3 10 unit subcut QAM 03/03/22 03/31/22 mL) subcutaneous pen (Basaglar KwikPen U-100 Insulin) lactase 3,000 unit tablet (Lactaid) 9,000 unit PO TID PRN before meal 03/03/22 03/31/22 loperamide 2 mg tablet 4 mg PO Q4H PRN Loose Stool 03/03/22 03/31/22 (Anti-Diarrheal (loperamide)) lidocaine 4 % topical patch 1 patch topical QAM 03/06/22 03/31/22 pen needle, diabetic 31 gauge x 03/15/22 5/16" (BD Ultra-Fine Short Pen Needle) hydrocortisone 1 % topical cream 1 applic topical TID PRN Rash 03/31/22 03/31/22 ipratropium bromide 21 mcg (0.03 1 spray intranasal DAILY 03/31/22 03/31/22 %) nasal spray oxybutynin chloride 5 mg tablet 5 mg PO TID PRN urinary discomfort 03/31/22 03/31/22 Previous Rx's Medication Instructions Recorded epinephrine 0.3 mg/0.3 mL 0.3 mg (0.3 mL) IM DIRECTED PRN 05/03/21 injection, auto-injector Anaphylaxis #1 ea nitroglycerin 0.4 mg sublingual 0.4 mg sublingual DIRECTED PRN 07/25/21 tablet Chest Pain #30 tabs blood sugar diagnostic (OneTouch #200 ea 10/11/21 Ultra Test strips) montelukast 10 mg tablet 10 mg PO QPM #90 tabs 10/19/21 (Singulair) clopidogrel 75 mg tablet (Plavix) 75 mg PO QAM #90 tabs 11/16/21 escitalopram oxalate 20 mg tablet 20 mg PO HS #90 tabs 11/16/21 mirabegron 25 mg tablet,extended 25 mg PO QPM #30 tabs 03/08/22 release 24 hr (Myrbetriq) amlodipine 5 mg tablet 5 mg PO DAILY #30 tabs 03/31/22 Results & Data (ED) Vital Signs Vital Signs - 24 hr 03/31/22 19:34 03/31/22 21:52 Temperature 36.7 C Temperature Source Oral Pulse Rate 77 Respiratory Rate 18 Respiratory Effort / Characteristics Non-Labored Respiratory Depth Normal Blood Pressure 150/69 H Blood Pressure Mean 96 Pulse Oximetry 98 95 Oxygen Delivery Method Room Air Sepsis Recent Fever Within 48 Hours No Sepsis New/Unexplained Change in Mental Status No Sepsis Action Taken by Nursing No Action Required Laboratory Data Result diagrams: 03/31/22 20:54 03/31/22 20:54 Lab Results 03/31/22 03/31/22 03/31/22 Range/Units 20:31 20:54 20:54 WBC 4.19 L (4.8-10.8) K/ul RBC 5.20 (3.93-5.22) M/uL Hgb 12.6 (12.0-16.0) g/dl Hct 40.2 (34.1-44.9) % MCV 77.3 L (80.0-100.0) fL MCH 24.2 L (25.0-34.0) pg MCHC 31.3 L (32.0-36.0) g/dL RDW Std Deviation 42.0 (36.4-46.3) fL RDW Coeff of Tim 15.0 H (11.5-14.5) % Plt Count 102 L (130-400) K/uL MPV 9.1 L (9.4-12.3) fL Immature Gran % (Auto) 0.2 % Neut % (Auto) 70.7 % Lymph % (Auto) 19.6 % Beaver % (Auto) 6.9 % Eos % (Auto) 1.9 % Baso % (Auto) 0.7 % Neut # (Auto) 2.96 (1.4-6.5) K/uL Lymph # (Auto) 0.82 L (1.2-3.4) K/uL Beaver # (Auto) 0.29 (0.24-0.82) K/uL Eos # (Auto) 0.08 (0-0.50) K/uL Baso # (Auto) 0.03 (0-0.2) K/uL Immature Gran # (Auto) 0.01 (0.00-0.02) K/uL PT 11.7 (9.0-12.0) Seconds INR 1.1 (0.9-1.1) APTT 23.9 (21.0-31.0) Seconds PTT Ratio 0.9 Sodium (136-145) mmol/L Potassium (3.5-5.1) mmol/L Chloride (98-107) mmol/L Carbon Dioxide (21-32) mmol/L Anion Gap (3-11) BUN (6-23) mg/dl Creatinine (0.6-1.2) mg/dl Est Cr Clr Drug Dosing Est GFR ( Amer) ml/min Est GFR (Non-Af Amer) ml/min BUN/Creatinine Ratio (10-20) Glucose (70-99(Fasting)) mg/dl POC Glucose 217 H (70-99) mg/dl Calcium (8.5-10.1) mg/dl Magnesium (1.7-2.4) mg/dl Total Bilirubin (0.2-1.0) mg/dl AST (13-39) U/L ALT (7-52) U/L Alkaline Phosphatase (34-104) U/L Troponin I High Sens (0-14) pg/ml Total Protein (6.0-8.3) gm/dl Albumin (3.4-5.0) gm/dl Globulin (2.5-4.0) gm/dl Albumin/Globulin Ratio (0.9-2) SARS-CoV-2, RNA, NAAT (NEGATIVE) 03/31/22 04/01/22 Range/Units 20:54 00:50 WBC (4.8-10.8) K/ul RBC (3.93-5.22) M/uL Hgb (12.0-16.0) g/dl Hct (34.1-44.9) % MCV (80.0-100.0) fL MCH (25.0-34.0) pg MCHC (32.0-36.0) g/dL RDW Std Deviation (36.4-46.3) fL RDW Coeff of Tim (11.5-14.5) % Plt Count (130-400) K/uL MPV (9.4-12.3) fL Immature Gran % (Auto) % Neut % (Auto) % Lymph % (Auto) % Beaver % (Auto) % Eos % (Auto) % Baso % (Auto) % Neut # (Auto) (1.4-6.5) K/uL Lymph # (Auto) (1.2-3.4) K/uL Beaver # (Auto) (0.24-0.82) K/uL Eos # (Auto) (0-0.50) K/uL Baso # (Auto) (0-0.2) K/uL Immature Gran # (Auto) (0.00-0.02) K/uL PT (9.0-12.0) Seconds INR (0.9-1.1) APTT (21.0-31.0) Seconds PTT Ratio Sodium 140 (136-145) mmol/L Potassium 4.1 (3.5-5.1) mmol/L Chloride 104 (98-107) mmol/L Carbon Dioxide 27 (21-32) mmol/L Anion Gap 9 (3-11) BUN 27 H (6-23) mg/dl Creatinine 1.13 (0.6-1.2) mg/dl Est Cr Clr Drug Dosing Not Reportable Est GFR ( Amer) 52.8 ml/min Est GFR (Non-Af Amer) 45.5 ml/min BUN/Creatinine Ratio 23.9 H (10-20) Glucose 240 H (70-99(Fasting)) mg/dl POC Glucose (70-99) mg/dl Calcium 9.3 (8.5-10.1) mg/dl Magnesium 1.7 (1.7-2.4) mg/dl Total Bilirubin 0.6 (0.2-1.0) mg/dl AST 14 (13-39) U/L ALT 10 (7-52) U/L Alkaline Phosphatase 63 (34-104) U/L Troponin I High Sens 14.0 (0-14) pg/ml Total Protein 7.2 (6.0-8.3) gm/dl Albumin 3.8 (3.4-5.0) gm/dl Globulin 3.4 (2.5-4.0) gm/dl Albumin/Globulin Ratio 1.1 (0.9-2) SARS-CoV-2, RNA, NAAT NEGATIVE (NEGATIVE) Administered Medications Discontinued Medications Aspirin (Aspirin Chew 324 Mg) 324 mg PO NOW STA Stop: 04/01/22 00:16 Last Admin: 04/01/22 00:35 Dose: 324 mg Documented By: AGA Ioversol (Optiray 320 500ml) 112 ml IV ONCE ONE Stop: 03/31/22 22:58 Last Admin: 03/31/22 22:58 Dose: 112 ml Documented By: FRANCO Discharge Plan Visit Data Chief Complaint: Stroke/CVA Symptoms Stated Complaint: STROKE LIKE SYMPTOMS ED Provider: Keith Robert Discharge Problem: Stroke-like symptom Forms Stand Alone Forms: [facility] [employer] Prescriptions Prescriptions: No Action epinephrine 0.3 mg/0.3 mL auto-injector 0.3 mg IM DIRECTED PRN (Reason: Anaphylaxis) Qty: 1 0RF (DME) OneTouch Ultra Test Strip See Rx Instructions .Route Qty: 200 2RF Rx Instructions: Test 4 times a day montelukast [Singulair] 10 mg tablet 10 mg PO QPM Qty: 90 3RF clopidogrel [Plavix] 75 mg tablet 75 mg PO QAM Qty: 90 3RF escitalopram oxalate 20 mg tablet 20 mg PO HS Qty: 90 3RF gabapentin 100 mg capsule 100 mg PO QID insulin glargine [Basaglar KwikPen U-100 Insulin] 100 unit/mL (3 mL) insulin pen 10 unit SUBCUT QAM albuterol sulfate [Ventolin HFA] 90 mcg/actuation HFA aerosol inhaler 2 puff INHALATION Q4H PRN (Reason: Wheezing) diclofenac sodium 1 % gel See Rx Instructions .ROUTE .COMPLEX PRN (Reason: JOINT PAIN) Rx Instructions: APPLY 2GM TOPICALLY TO SINGLE KNEE, ANKLE, AND FOOT (FOOT INCLUDES SOLE/TOES/TOP OF FOOT) FOUR TIMES DAILY NEEDED FOR JOINT PAIN loperamide [Anti-Diarrheal (loperamide)] 2 mg tablet 4 mg PO Q4H PRN (Reason: Loose Stool) Rx Instructions: administer after each loose stool until symptoms controlled; do not exceed 8 mg per 24 hrs lactase [Lactaid] 3,000 unit tablet 9,000 unit PO TID PRN (Reason: before meal) Rx Instructions: administer with meals and/or snacks amlodipine 5 mg tablet 5 mg PO DAILY Qty: 30 2RF (DME) lancets Misc See Rx Instructions .ROUTE .MEDSUPPLY Qty: 100 Rx Instructions: As directed (DME) Dexcom G6 Sensor Device See Rx Instructions .ROUTE .MEDSUPPLY Qty: 3 Rx Instructions: As directed (DME) Dexcom G6 Burrer Machine Misc See Rx Instructions .ROUTE .MEDSUPPLY Qty: 1 Rx Instructions: As directed (DME) Dexcom G6 Transmitter Device See Rx Instructions .ROUTE .MEDSUPPLY Qty: 1 Rx Instructions: As directed Myrbetriq 25 mg tablet extended release 24 hr 25 mg PO QPM Qty: 30 3RF nitroglycerin 0.4 mg tablet, sublingual 0.4 mg sublingual DIRECTED PRN (Reason: Chest Pain) Qty: 30 0RF Rx Instructions: PLACE ONE TABLET UNDER THE TONGUE EVERY 5 MINUTES FOR UP TO 3 DOSES OVER 15 MINUTES IF NEEDED FOR CHEST PAIN (DME) pen needle, diabetic [BD Ultra-Fine Short Pen Needle] 31 gauge x 5/16" needle See Rx Instructions .ROUTE .MEDSUPPLY Rx Instructions: Inject insulin three times daily lidocaine 4 % adhesive patch,medicated 1 patch topical QAM Rx Instructions: Remove at 9 PM Right foot. insulin aspart U-100 [Novolog Flexpen U-100 Insulin] 100 unit/mL (3 mL) insulin pen 2 unit subcut BID Rx Instructions: Take 2 units at noon and at dinner time 5pm diphenhydramine HCl [Benadryl Allergy] 25 mg tablet 25 mg PO DAILY PRN (Reason: itching) melatonin 3 mg Tablet,Disintegrating 3 mg PO HS PRN (Reason: Insomnia) cyanocobalamin (vitamin B-12) [Vitamin B-12] 1,000 mcg tablet 1,000 mcg PO DAILY@12 pantoprazole 40 mg tablet,delayed release (DR/EC) 40 mg PO AMPM cholecalciferol (vitamin D3) [Vitamin D3] 125 mcg (5,000 unit) tablet 5,000 unit PO DAILY@12 ipratropium bromide 21 mcg (0.03 %) spray,non-aerosol 1 spray intranasal DAILY Rx Instructions: administer into each nostril oxybutynin chloride 5 mg tablet 5 mg PO TID PRN (Reason: urinary discomfort) hydrocortisone 1 % cream 1 applic topical TID PRN (Reason: Rash) Referrals Referrals: Darwin Lugo III, CRNP [Primary Care Provider] -
[2022-03-31 21:04] LABS: Basophils # (auto) 0.03 K/uL (0-0.2); Basophils % (auto) 0.7 %; Eosinophils # (auto) 0.08 K/uL (0-0.50); Eosinophils % (auto) 1.9 %; Hematocrit (blood only) 40.2 % (34.1-44.9); Hemoglobin 12.6 g/dl (12.0-16.0); Immature Granulocytes # (auto) 0.01 K/uL (0.00-0.02); Immature Granulocytes % (auto) 0.2 %; Lymphocytes # (auto) 0.82 K/uL (1.2-3.4); Lymphocytes % (auto) 19.6 %; Mean Platelet Volume 9.1 fL (9.4-12.3); Monocytes # (auto) 0.29 K/uL (0.24-0.82); Monocytes % (auto) 6.9 %; Neutrophils # (auto) 2.96 K/uL (1.4-6.5); Neutrophils % (auto) 70.7 %; Platelet Count 102 K/uL (130-400); White Blood Count 4.19 K/ul (4.8-10.8)
[2022-03-31 21:17] LABS: INR 1.1 (0.9-1.1); Partial Thromboplastin Ratio 0.9; Partial Thromboplastin Time 23.9 Seconds (21.0-31.0); Prothrombin Time 11.7 Seconds (9.0-12.0)
[2022-03-31 21:24] LABS: Mean Corpuscular Hemoglobin 24.2 pg (25.0-34.0); Mean Corpuscular Hgb Conc 31.3 g/dL (32.0-36.0); Mean Corpuscular Volume 77.3 fL (80.0-100.0)
[2022-03-31 21:49] LABS: Alanine Aminotransferase 10 U/L (7-52); Albumin Globulin Ratio 1.1 (0.9-2); Albumin Level 3.8 gm/dl (3.4-5.0); Alkaline Phosphatase 63 U/L (34-104); Anion Gap 9 (3-11); Aspartate Aminotransferase 14 U/L (13-39); BUN Creatinine Ratio 23.9 (10-20); Bilirubin,Total 0.6 mg/dl (0.2-1.0); Blood Urea Nitrogen 27 mg/dl (6-23); Calcium 9.3 mg/dl (8.5-10.1); Carbon Dioxide 27 mmol/L (21-32); Chloride 104 mmol/L (98-107); Est GFR (African American) 52.8 ml/min; Est GFR (Non-African American) 45.5 ml/min; Globulin 3.4 gm/dl (2.5-4.0); Glucose 240 mg/dl (70-99(Fasting)); Magnesium 1.7 mg/dl (1.7-2.4); Potassium 4.1 mmol/L (3.5-5.1); Sodium 140 mmol/L (136-145); Total Protein 7.2 gm/dl (6.0-8.3)
[2022-03-31] MEDS ORDERED: OPTIRAY 320 500ml IV ONE (22:57)
[2022-04-01] MEDS ORDERED: ASPIRIN CHEW 324 MG PO STA (00:15)
--- NOTE | 2022-04-01 00:51 | History & Physical Report ---
Date of Service April 01, 2022 Assessment & Plan (1) Stroke-like symptom: Plan: 81yo female with a history of HTN, HLD, prior CVA (2019), T2DM, CKD3, CAMRON, OHS, asthma, GERD, MDD, and DEEPAK presents with a 1.5-day history of stroke-like symptoms. Stroke-like symptoms Vitals notable only for mildly-elevated BP; no tachycardia or tachypnea; patient afebrile; spO2 adequate on room air Labs notable only for miild leukopenia (4.2) and thrombocytopenia (102); likely noncontributory to current clinical picture CT head without evidence of bleed, CTA head/neck notable for mild atherosclerotic disease but without evidence of large vessel occlusion, dissection, aneurysm, or hemodynamically-significant stenosis Patient is far outside the window for consideration of thrombolytics NPO pending speech evaluation, aspiration precautions MRI brain ordered, echo ordered Neurology consulted BP control, maintain adequate spO2 SCDs, fall precautions Continue plavix, aspirin DM2 HbA1c 6.0% (12/2021), repeat value ordered Patient's home regimen held on admission Continue BSG checks, sliding-scale insulin, hypoglycemic protocol HTN: well-controlled; continue home regimen Asthma: continue home regimen GERD: continue home regimen MDD/DEEPAK: continue home regimen CAMRON/OHS: CPAP nightly FEN: NPO pending speech evaluation; heart-healthy / DM2 diet when PO intake is resumed Code status: DNR (intubation / ventilation OK) DVT ppx: SCDs PT/OT: ordered Case management: consulted for home safety assessment Dispo: med/telemetry (2) T2DM (type 2 diabetes mellitus): (3) Anxiety and depression: (4) Asthma: (5) Chronic kidney disease, stage 3a: (6) Dyslipidemia: (7) GERD (gastroesophageal reflux disease): (8) Hypertension: (9) Obesity hypoventilation syndrome: (10) Severe obstructive sleep apnea: History of Present Illness Primary Care Provider: Darwin Lugo III, HARVINDER 81yo female with a history of HTN, HLD, prior CVA (2019), T2DM, CKD3, CAMRON, OHS, asthma, GERD, MDD, and DEEPAK presents after developing left-sided weakness on 03/30 around 17:00 (approximately 27 hours prior to presenting to the ED). Patient first noticed some left-sided weakness along with associated blurry vision.Symptoms did not improve over the next day, prompting patient's presentation to the ED. Patient's daughter is at bedside and provides additional information - she notes patient seems to be at her cognitive baseline during our interview. Patient denies fever, chills, headache, CP, palpitations, SOB, abdominal pain, nausea, vomiting, dysuria, hematochezia, melena, or other symptoms. Denies recent illness and recent travel. Upon arrival, vitals were notable for mildly elevated BP (150s/60s); no tachycardia, no tachypnea, patient afebrile, spO2 adequate on room air. Initial labs were notable for mild leukopenia (4.2) and thrombocytopenia (102); no anemia, no electrolyte abnormalities, creatinine not elevated, LFTs wnl, Tbili not elevated. In the ED, patient received ASA 324mg PO. EKG: NSR, no overt ischemic change CT head: no acute process CTA head/neck: mild atherosclerotic disease without evidence of large vessel occlusion, dissection, aneurysm, or hemodynamically-significant stenosis Surrogate decision-maker in case of an emergency: kiera Palma (cell: [phone]) Allergies Allergy/AdvReac Type Severity Reaction Status Date / Time cantaloupe Allergy Severe THROAT Verified 03/31/22 23:10 CLOSES celecoxib [From Celebrex] Allergy Severe CAUSED Verified 03/31/22 23:10 STROKE melon Allergy Severe THROAT Verified 03/31/22 23:10 CLOSES meperidine Allergy Severe almost Verified 03/31/22 23:10 "closed throat" midodrine Allergy Severe "almost Verified 03/31/22 23:10 closed throat" Penicillins Allergy Severe ANAPHYLAXIS Verified 03/31/22 23:10 sulfamethoxazole Allergy Severe THROAT Verified 03/31/22 23:10 CLOSED trimethoprim Allergy Severe THROAT Verified 03/31/22 23:10 CLOSED watermelon Allergy Severe THROAT Verified 03/31/22 23:10 CLOSES diphenoxylate Allergy Intermediate Unknown Verified 03/31/22 23:10 metronidazole [From Flagyl] Allergy Intermediate Hives Verified 03/31/22 23:10 DENILSON Inhibitors Allergy Unknown unknown to Verified 03/31/22 23:10 pt atropine Allergy Unknown Unknown Verified 03/31/22 23:10 carvedilol Allergy Unknown Unknown Verified 03/31/22 23:10 clonazepam [From Klonopin] Allergy Unknown Unknown Verified 03/31/22 23:10 doxycycline Allergy Unknown Unknown Verified 03/31/22 23:10 furosemide [From Lasix] Allergy Unknown Unknown Verified 03/31/22 23:10 Histamine H2 Inhibitors Allergy Unknown unknown to Verified 03/31/22 23:10 pt Iodinated Contrast Media Allergy Unknown JULY 2017 Verified 03/31/22 23:10 [facility] -- TOLERATED WITH SLOW INFUSION PER PATIENT nitrofurantoin Allergy Unknown Unknown Verified 03/31/22 23:10 phenazopyridine Allergy Unknown Unknown Verified 03/31/22 23:10 ranitidine Allergy Unknown Unknown Verified 03/31/22 23:10 repaglinide Allergy Unknown Unknown Verified 03/31/22 23:10 rosiglitazone Allergy Unknown Unknown Verified 03/31/22 23:10 tolterodine [From Detrol] Allergy Unknown Unknown Verified 03/31/22 23:10 ciprofloxacin [From Cipro] AdvReac Severe throat Verified 03/31/22 23:10 swelling citalopram [From Celexa] AdvReac Severe SEE COMMENT Verified 03/31/22 23:10 diazepam AdvReac Severe SEDATION Verified 03/31/22 23:10 LASTING TOO LONG prednisone AdvReac Severe BSG Verified 03/31/22 23:10 ELEVATED TO THE 500'S glyburide AdvReac Intermediate SEVERE Verified 03/31/22 23:10 ABDOMINAL PAIN meloxicam [From Mobic] AdvReac Intermediate SICK TO Verified 03/31/22 23:10 STOMACH metformin AdvReac Intermediate SEVERE Verified 03/31/22 23:10 ABDOMINAL PAIN oxycodone AdvReac Intermediate SEVERE Verified 03/31/22 23:10 WITHDRAWAL SYMPTOMS WHEN TRYING TO STOP TAKING paroxetine AdvReac Intermediate DID NOT Verified 03/31/22 23:10 HELP tramadol AdvReac Intermediate Vomiting Verified 03/31/22 23:10 albuterol AdvReac Unknown UNK Verified 03/31/22 23:10 carbamazepine AdvReac Unknown Unknown Verified 03/31/22 23:10 ibuprofen AdvReac Unknown Unknown Verified 03/31/22 23:10 lisinopril AdvReac Unknown UNK Verified 03/31/22 23:10 mirtazapine AdvReac Unknown Unknown Verified 03/31/22 23:10 olanzapine AdvReac Unknown Unknown Verified 03/31/22 23:10 rofecoxib AdvReac Unknown Unknown Verified 03/31/22 23:10 valproic acid AdvReac Unknown Unknown Verified 03/31/22 23:10 ceftriaxone AdvReac Unknown Verified 03/31/22 23:10 Home Medications Medication Instructions Recorded Confirmed Type lancets #100 ea 03/03/20 03/15/22 History blood-glucose meter,continuous #1 ea 09/13/20 03/15/22 History (Dexcom G6 Cold Roll Packer Sheet Iron misc) blood-glucose sensor (Dexcom G6 #3 ea 09/13/20 03/15/22 History Sensor device) blood-glucose transmitter (Dexcom #1 ea 09/13/20 03/15/22 History G6 Transmitter device) epinephrine 0.3 mg/0.3 mL 0.3 mg (0.3 mL) IM DIRECTED PRN 05/03/21 03/31/22 Rx injection, auto-injector Anaphylaxis #1 ea diphenhydramine HCl 25 mg tablet 25 mg PO DAILY PRN itching 05/19/21 03/31/22 History (Benadryl Allergy) melatonin 3 mg disintegrating 3 mg PO HS PRN Insomnia 07/22/21 03/31/22 History tablet nitroglycerin 0.4 mg sublingual 0.4 mg sublingual DIRECTED PRN 07/25/21 03/31/22 Rx tablet Chest Pain #30 tabs blood sugar diagnostic (OneTouch #200 ea 10/11/21 03/03/22 Rx Ultra Test strips) montelukast 10 mg tablet 10 mg PO QPM #90 tabs 10/19/21 03/31/22 Rx (Singulair) clopidogrel 75 mg tablet (Plavix) 75 mg PO QAM #90 tabs 11/16/21 03/31/22 Rx escitalopram oxalate 20 mg tablet 20 mg PO HS #90 tabs 11/16/21 03/31/22 Rx insulin aspart U-100 100 unit/mL 2 unit subcut BID 01/24/22 03/31/22 History (3 mL) subcutaneous pen (Novolog Flexpen U-100 Insulin aspart) cholecalciferol (vitamin D3) 125 5,000 unit PO DAILY@12 02/16/22 03/31/22 History mcg (5,000 unit) tablet (Vitamin D3) cyanocobalamin (vitamin B-12) 1,000 mcg PO DAILY@12 02/16/22 03/31/22 History 1,000 mcg tablet (Vitamin B-12) pantoprazole 40 mg tablet,delayed 40 mg PO AMPM 02/16/22 03/31/22 History release albuterol sulfate 90 mcg/actuation 2 puff inhalation Q4H PRN Wheezing 03/03/22 03/31/22 History aerosol inhaler (Ventolin HFA) diclofenac sodium 1 % topical gel See Rx Instructions .Route 03/03/22 03/31/22 History .COMPLEX PRN JOINT PAIN gabapentin 100 mg capsule 100 mg PO QID 03/03/22 03/31/22 History insulin glargine 100 unit/mL (3 10 unit subcut QAM 03/03/22 03/31/22 History mL) subcutaneous pen (Basaglar KwikPen U-100 Insulin) lactase 3,000 unit tablet (Lactaid) 9,000 unit PO TID PRN before meal 03/03/22 03/31/22 History loperamide 2 mg tablet 4 mg PO Q4H PRN Loose Stool 03/03/22 03/31/22 History (Anti-Diarrheal (loperamide)) lidocaine 4 % topical patch 1 patch topical QAM 03/06/22 03/31/22 History mirabegron 25 mg tablet,extended 25 mg PO QPM #30 tabs 03/08/22 03/31/22 Rx release 24 hr (Myrbetriq) pen needle, diabetic 31 gauge x 03/15/22 History 5/16" (BD Ultra-Fine Short Pen Needle) amlodipine 5 mg tablet 5 mg PO DAILY #30 tabs 03/31/22 03/31/22 Rx hydrocortisone 1 % topical cream 1 applic topical TID PRN Rash 03/31/22 03/31/22 History ipratropium bromide 21 mcg (0.03 1 spray intranasal DAILY 03/31/22 03/31/22 History %) nasal spray oxybutynin chloride 5 mg tablet 5 mg PO TID PRN urinary discomfort 03/31/22 03/31/22 History Past Med/Surg History Medical History Acute hypercapnic respiratory failure DEB (acute kidney injury) Anxiety and depression Asthma Breast cancer Chronic back pain Chronic neck pain Chronic pulmonary aspiration Fusion of spine GERD (gastroesophageal reflux disease) History of benign brain tumor History of dysphagia History of esophageal dilatation History of spinal stenosis History of stroke History of uterine cancer Hypertension Left pontine stroke Lymphedema of right arm Meningioma Microalbuminuria due to type 2 diabetes mellitus Microcytic anemia Morbid obesity Neuropathy Obesity hypoventilation syndrome Osteoarthritis PAC (premature atrial contraction) PVC (premature ventricular contraction) Sensorineural hearing loss (SNHL) of both ears Severe obstructive sleep apnea T2DM (type 2 diabetes mellitus) Uterine cancer Weakness Surgical History Difficult airway for intubation History of cardiac catheterization History of cataract surgery History of cholecystectomy History of colonoscopy History of esophagogastroduodenoscopy (EGD) History of knee surgery History of mastectomy History of total abdominal hysterectomy Family History Mother Diabetes Myocardial infarction Hypertension Family history of diabetes mellitus Brother Family history of diabetes mellitus Sister Osteoporosis Arthritis Denies family history of Ovarian cancer Prostate cancer Breast cancer Colorectal cancer Social History Smoking Status: Former smoker Tobacco Type: Cigarettes Age Started Using Tobacco: 15; Age Quit Using Tobacco: 30; packs per day: 1; Second Hand Exposure: No; Hx Alcohol Use: No Hx Substance Use: No Preferred Language: E[place] Communication Ability: Effective Visual Impairment: Limited Hearing Ability: Hard of Hearing Line Technician Required: No Beliefs That Will Affect Care: None marital status: / Current Living Situation: Personal Care Facility Current Living Situation Comment: Assisted living current occupational status: retired Other Information That Helps Us Care for You: No Feels Safe at Home: Yes Safety Concerns: Feels Safe At This Time Childhood Exposure to Second-Hand Smoke: No Diet Comment: low carb Dental Care, Regularly: Yes Physical Activity Frequency: Does not Exercise Seatbelt Use: always Sunscreen Use: Yes Assistive Devices: Glasses and Walker Physical Exam Physical Exam: Constitutional: well-appearing, no acute distress, pleasant, cooperative CV: regular rhythm, no murmur appreciated, extremities well-perfused, no LE edema Resp: CTABL, no wheezes/rales/rhonchi appreciated, no increased work of breathing GI: soft, nondistended, nontender, BS normoactive MSK: no gross deformities appreciated Skin: warm, dry, no rash appreciated Neuro: alert, oriented, no facial droop, RUE strength 5/5, LUE strength 4/5, RLE and LLE strength 5/5, coordination intact, sensation intact, CN2-12 grossly intact, speech a bit slow but clear/fluent Results & Data Results & Data ([facility]) Vital Signs (Past 12 Hours) Vital Signs Temp Pulse Resp BP Pulse Ox O2 Del Method 03/31/22 21:52 95 Room Air 03/31/22 19:34 36.7 C 77 18 150/69 H 98 Supervising Physician Co-Signing Physician Notes Pt seen and examined in concert with Dr. Milner. Agree with the documented findings as noted in the resident documentation in both the history and the Physical eaxma and discussed with him the overall plan in detail. Patient presents with strokelike symptoms and CT negative for any intracranial bleed or masses. Patient not a thrombolytic candidate for intervention. continue antiplatelet therapy with stroke protocol awaiting neurology input. Resident Activity Tracking Resident Involvement: Resident Care Provided and Dry Kiln Feeder Coverage Note Care Provided: Adult Hospital Medicine (1) Hypertension Hypertension type: unspecified Qualified Code(s): I10 - Essential (primary) hypertension
[2022-04-01] MEDS ORDERED: LACTASE 3000 UNIT TAB PO PRN (02:01)
[2022-04-01] MEDS ORDERED: MELATONIN 3 MG TAB PO PRN (02:01)
[2022-04-01] MEDS ORDERED: OXYBUTYNIN CHLORIDE 5 MG TAB PO PRN (02:01)
[2022-04-01] MEDS ORDERED: ALBUTEROL HFA 8 GM INHALER INH PRN (02:01)
[2022-04-01] MEDS ORDERED: GLUCAGON FOR INJ 1 MG VIAL SQ PRN (02:07)
[2022-04-01] MEDS ORDERED: CARBOHYDRATES FOR HYPOGLYCEMIA PO PRN (02:07)
[2022-04-01] MEDS ORDERED: DEXTROSE 50% 50 ML SYRINGE IV PRN (02:07)
[2022-04-01] MEDS ORDERED: GLUCOSE 10 TAB/TUBE PO PRN (02:07)
[2022-04-01] MEDS ORDERED: GLUCOSE 40% GEL 15 GM TUBE PO PRN (02:07)
[2022-04-01] MEDS ORDERED: PANTOprazole 40 MG TAB PO STA (02:27)
[2022-04-01 06:42] LABS: Hematocrit (blood only) 38.6 % (34.1-44.9); Platelet Count 111 K/uL (130-400)
[2022-04-01 07:20] LABS: Albumin Globulin Ratio 1.2 (0.9-2); Albumin Level 3.7 gm/dl (3.4-5.0); BUN Creatinine Ratio 23.8 (10-20); Bilirubin,Total 0.6 mg/dl (0.2-1.0); Calcium 8.7 mg/dl (8.5-10.1); Chol HDL Ratio 4.4 (0-5); Creatinine Clr Calc Pharmacy 40.9 ml/min; Est GFR (African American) 57.7 ml/min; Est GFR (Non-African American) 49.8 ml/min; Globulin 3.1 gm/dl (2.5-4.0); Potassium 3.6 mmol/L (3.5-5.1); Total Protein 6.8 gm/dl (6.0-8.3)
[2022-04-01 07:42] LABS: Mean Corpuscular Hemoglobin 23.9 pg (25.0-34.0); Mean Corpuscular Hgb Conc 31.1 g/dL (32.0-36.0); Mean Corpuscular Volume 76.9 fL (80.0-100.0); RDW Standard Deviation 41.4 fL (36.4-46.3); Red Blood Count 5.02 M/uL (3.93-5.22)
--- NOTE | 2022-04-01 07:46 | CT Scan Report ---
HEAD CT NONCONTRAST CT DOSE: HISTORY: Left-sided facial numbness. Facial droop. neuro deficit, acute stroke suspected TECHNIQUE: Multiaxial CT images of the head were performed without the use of intravenous contrast. A utomated exposure control was utilized for this study. A dose lowering technique was utilized adheri ng to the principles of ALARA. Comparison: Head CT 02/23/2022. Findings: The paranasal sinuses and mastoid air cells are clear. The calvarium and skull base are int act. There is no hematoma, midline shift, acute infarct. White matter hypodensity is nonspecific but suggestive of microvascular ischemic change. The ventricles and sulci demonstrate mild age-related in volutional changes. Stable 1.6 cm right frontal calcified meningioma. Impression: No significant change compared to the prior study. No acute intracranial abnormality. ACT 112: Negative or not required by law. Electronically signed by: Javy Mcdaniel M.D. 04/01/2022 7:45 AM
--- NOTE | 2022-04-01 07:52 | CT Scan Report ---
HEAD & NECK CTA HISTORY: Left-sided facial droop. neuro deficit, acute stroke suspected TECHNIQUE: Multiaxial CT images of the head were performed following the intravenous administration o f contrast to evaluate the major cerebral vessels. Multiaxial CT images of the neck were also perform ed following the intravenous administration of contrast to evaluate the major cervical vessels. Maxim um intensity projection images were also obtained. A dose lowering technique was utilized adhering to the principles of ALARA. COMPARISON: Head and Neck CTA 02/16/2022. FINDINGS: Stable 1.6 cm right frontal calcified meningioma. Hypoplastic distal left vertebral artery. The major dural venous sinuses are patent. Visualized intracranial internal carotid arteries, distal vertebral arteries, and basilar artery are widely patent. There is no significant stenosis, occlusion, or aneu rysm seen within the bilateral ACAs, MCAs, or business intelligence manager. The aortic arch and proximal great vessels are widely patent. There is no significant stenosis, occ lusion, or dissection identified within the bilateral common carotid, internal carotid, or left verte bral arteries. Moderate to severe focal narrowing of greater than 50% within the mid right vertebral artery at the C5 level. This remains unchanged. Mild to moderate calcified plaque within the bilatera l carotid bifurcations. IMPRESSION: 1. No significant stenosis, occlusion, or aneurysm within the [place]. 2. No significant stenosis, occlusion, or dissection identified within the carotid or left vertebral arteries. 3. Greater than 50% stenosis within the mid right vertebral artery, unchanged. ACT 112: Negative or not required by law. Electronically signed by: Jayv Mcdaniel M.D. 04/01/2022 7:51 AM
--- NOTE | 2022-04-01 07:52 | CT Scan Report ---
HEAD & NECK CTA HISTORY: Left-sided facial droop. neuro deficit, acute stroke suspected TECHNIQUE: Multiaxial CT images of the head were performed following the intravenous administration o f contrast to evaluate the major cerebral vessels. Multiaxial CT images of the neck were also perform ed following the intravenous administration of contrast to evaluate the major cervical vessels. Maxim um intensity projection images were also obtained. A dose lowering technique was utilized adhering to the principles of ALARA. COMPARISON: Head and Neck CTA 02/16/2022. FINDINGS: Stable 1.6 cm right frontal calcified meningioma. Hypoplastic distal left vertebral artery. The major dural venous sinuses are patent. Visualized intracranial internal carotid arteries, distal vertebral arteries, and basilar artery are widely patent. There is no significant stenosis, occlusion, or aneu rysm seen within the bilateral ACAs, MCAs, or expense clerk. The aortic arch and proximal great vessels are widely patent. There is no significant stenosis, occ lusion, or dissection identified within the bilateral common carotid, internal carotid, or left verte bral arteries. Moderate to severe focal narrowing of greater than 50% within the mid right vertebral artery at the C5 level. This remains unchanged. Mild to moderate calcified plaque within the bilatera l carotid bifurcations. IMPRESSION: 1. No significant stenosis, occlusion, or aneurysm within the [place]. 2. No significant stenosis, occlusion, or dissection identified within the carotid or left vertebral arteries. 3. Greater than 50% stenosis within the mid right vertebral artery, unchanged. ACT 112: Negative or not required by law. Electronically signed by: Javy Mcdaniel M.D. 04/01/2022 7:51 AM
[2022-04-01 08:27] LABS: Estimated Average Glucose 137 mg/dl; Hemoglobin A1C 6.4 % (4.5-5.6)
[2022-04-01] MEDS: INSULIN ASPART PER UNIT SC SCH ×4 (08:28→21:34)
[2022-04-01] MEDS ORDERED: PANTOprazole 40 MG in SYRINGE 0 ML IV SCH (09:00)
[2022-04-01] MEDS ORDERED: PANTOprazole 40 MG TAB PO SCH (09:00)
--- NOTE | 2022-04-01 09:29 | Neurology Consultation ---
Date of Consultation April 01, 2022 Assessment & Plan (1) Acute left-sided weakness: (2) Diabetic peripheral neuropathy associated with type 2 diabetes mellitus: (3) Meningioma: Plan this patient had the acute onset of left-sided weakness and dysesthesias with some sensory deficits involving much of the left side including arm and leg. Speech and mentation are unremarkable. She has no new cranial nerve signs. Patient does have a history of left pontine stroke in January of 2019, which left her with some very mild left hand weakness but now her weakness on the left side is much worse. I suspect a small ischemic stroke. CT angiography of the head and neck did not reveal any significant vascular stenoses or anomalies. She had this event while on clopidogrel. Patient has insulin-dependent diabetes and history of hypertension as her risk factors for stroke. The patient has an incidental right frontal meningioma which is stable and being followed over time. Patient has a significant polyneuropathy dysesthesias likely secondary to diabetes. Gabapentin is of some help. This is stable. Recommendations: 1. Echocardiogram is pending. 2. 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 Total cholesterol is 188 and given her age she may not need to be treated with medication. Could consider a non statin cholesterol-lowering medication however. 3. Control sugar as you are doing. Hemoglobin A1c is 6.4. 4. MRI of the brain to evaluate for extent/severity of a small-vessel ischemic stroke. 5. Physical, occupational, and speech therapy consult. Increase activity as able. 6. Continue combination of 81 mg aspirin +75 mg clopidogrel daily. We will do this for 3 weeks at least. 7. Continue gabapentin at the same dose. 8. Additional recommendations will be made after the above tests. Overall, I spent a total of 60 minutes with this case including review of records, review of CT films, direct evaluation the patient at bedside, and discussion of the case with the patient and RN at bedside as well as Dr. Victoria including differential diagnosis and treatment options. History of Present Illness Reason for Consultation: Patient is an 81-year-old, who I was asked to see at the request of Dr. Milner, for neurologic consultation regarding acute onset left-sided weakness, presumed stroke Requesting Physician: Dr. Milner Attending Physician: Collins Victoria MD History of Present Illness this patient has a longstanding history of insulin dependent diabetes with a significant diabetic polyneuropathy for years. She has a relatively stable right frontal meningioma that is been followed for the last 12 years. She has seen Neurosurgery in the past and there is no indication for surgery at this time. She also has a history of hypertension, dyslipidemia, anxiety depression, and obstructive sleep apnea. In January of 2019 the patient presented with acute onset headache, generalized weakness, gait imbalance, double vision dysarthria, and numbness of the tongue. MRI of the brain revealed a small left pontine stroke. MRI also revealed moderate old small-vessel ischemic disease and mild generalized. After being treated with aspirin and Plavix several weeks, she was left on clopidogrel alone at 75 mg a day, which she has been taking since. Patient has been having issues with painful diabetic neuropathy and had some increased right foot pain this fall requiring hospitalization. Gabapentin does help to a degree and she has been on various doses over years. Currently she is on 100 mg 4 times a day. In the evening of March 30 she was experiencing some unusual sensations in her lower extremities. She denied having left-sided weakness at that time. She went to bed and when she woke up the next morning, she had significant left- sided weakness and blurry vision. In addition, she had dysesthesias ( not pain) noted in the entire left half of her body ( like it splits the midline ). She denied headache, speech problems, or confusion. She arrived to the emergency room at 1934 on March 31, with a temperature 36.7, pulse 77 regular, respiratory rate 18, blood pressure 150/69, and O2 saturation 98%. On neurologic examination, in the emergency room, she was found to have left arm and leg drift left arm and leg weakness. She had an NIH stroke scale of 3. CT scan of the head showed no acute changes. CT angiography of the head and neck showed no significant vessel stenoses or anomalies. She did have the previous right frontal meningioma as before. There was no hemorrhage. Echocardiogram is pending. MRI has been ordered and likely will be obtained later today. CBC and Chem profile were remarkable only for glucose of 240 on admission. BUN was elevated at 27. Today CBC and Chem profile are improved on the the glucose is 186. Hemoglobin A1c is 6.4. Triglycerides were 148 and total cholesterol 188. I do not see that the patient is on a statin for lipid control on medication. This morning the patient feels that her left-sided weakness is the same but her blurry vision is much better. She denies headaches. She has some chronic cervical spine pain posteriorly with pain radiating down both arms. She continues to have dysesthesias and pain in her feet. The titer the shoe she wears, more sharp the pain is particularly on the right. Allergies Allergy/AdvReac Type Severity Reaction Status Date / Time cantaloupe Allergy Severe THROAT Verified 03/31/22 23:10 CLOSES celecoxib [From Celebrex] Allergy Severe CAUSED Verified 03/31/22 23:10 STROKE melon Allergy Severe THROAT Verified 03/31/22 23:10 CLOSES meperidine Allergy Severe almost Verified 03/31/22 23:10 "closed throat" midodrine Allergy Severe "almost Verified 03/31/22 23:10 closed throat" Penicillins Allergy Severe ANAPHYLAXIS Verified 03/31/22 23:10 sulfamethoxazole Allergy Severe THROAT Verified 03/31/22 23:10 CLOSED trimethoprim Allergy Severe THROAT Verified 03/31/22 23:10 CLOSED watermelon Allergy Severe THROAT Verified 03/31/22 23:10 CLOSES diphenoxylate Allergy Intermediate Unknown Verified 03/31/22 23:10 metronidazole [From Flagyl] Allergy Intermediate Hives Verified 03/31/22 23:10 DENILSON Inhibitors Allergy Unknown unknown to Verified 03/31/22 23:10 pt atropine Allergy Unknown Unknown Verified 03/31/22 23:10 carvedilol Allergy Unknown Unknown Verified 03/31/22 23:10 clonazepam [From Klonopin] Allergy Unknown Unknown Verified 03/31/22 23:10 doxycycline Allergy Unknown Unknown Verified 03/31/22 23:10 furosemide [From Lasix] Allergy Unknown Unknown Verified 03/31/22 23:10 Histamine H2 Inhibitors Allergy Unknown unknown to Verified 03/31/22 23:10 pt Iodinated Contrast Media Allergy Unknown JULY 2017 Verified 03/31/22 23:10 [facility] -- TOLERATED WITH SLOW INFUSION PER PATIENT nitrofurantoin Allergy Unknown Unknown Verified 03/31/22 23:10 phenazopyridine Allergy Unknown Unknown Verified 03/31/22 23:10 ranitidine Allergy Unknown Unknown Verified 03/31/22 23:10 repaglinide Allergy Unknown Unknown Verified 03/31/22 23:10 rosiglitazone Allergy Unknown Unknown Verified 03/31/22 23:10 tolterodine [From Detrol] Allergy Unknown Unknown Verified 03/31/22 23:10 ciprofloxacin [From Cipro] AdvReac Severe throat Verified 03/31/22 23:10 swelling citalopram [From Celexa] AdvReac Severe SEE COMMENT Verified 03/31/22 23:10 diazepam AdvReac Severe SEDATION Verified 03/31/22 23:10 LASTING TOO LONG prednisone AdvReac Severe BSG Verified 03/31/22 23:10 ELEVATED TO THE 500'S glyburide AdvReac Intermediate SEVERE Verified 03/31/22 23:10 ABDOMINAL PAIN meloxicam [From Mobic] AdvReac Intermediate SICK TO Verified 03/31/22 23:10 STOMACH metformin AdvReac Intermediate SEVERE Verified 03/31/22 23:10 ABDOMINAL PAIN oxycodone AdvReac Intermediate SEVERE Verified 03/31/22 23:10 WITHDRAWAL SYMPTOMS WHEN TRYING TO STOP TAKING paroxetine AdvReac Intermediate DID NOT Verified 03/31/22 23:10 HELP tramadol AdvReac Intermediate Vomiting Verified 03/31/22 23:10 albuterol AdvReac Unknown UNK Verified 03/31/22 23:10 carbamazepine AdvReac Unknown Unknown Verified 03/31/22 23:10 ibuprofen AdvReac Unknown Unknown Verified 03/31/22 23:10 lisinopril AdvReac Unknown UNK Verified 03/31/22 23:10 mirtazapine AdvReac Unknown Unknown Verified 03/31/22 23:10 olanzapine AdvReac Unknown Unknown Verified 03/31/22 23:10 rofecoxib AdvReac Unknown Unknown Verified 03/31/22 23:10 valproic acid AdvReac Unknown Unknown Verified 03/31/22 23:10 ceftriaxone AdvReac Unknown Verified 03/31/22 23:10 Home Medications Medication Instructions Recorded Confirmed Type lancets #100 ea 03/03/20 03/15/22 History blood-glucose meter,continuous #1 ea 09/13/20 03/15/22 History (Dexcom G6 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 misc) blood-glucose sensor (Dexcom G6 #3 ea 09/13/20 03/15/22 History Sensor device) blood-glucose transmitter (Dexcom #1 ea 09/13/20 03/15/22 History G6 Transmitter device) epinephrine 0.3 mg/0.3 mL 0.3 mg (0.3 mL) IM DIRECTED PRN 05/03/21 03/31/22 Rx injection, auto-injector Anaphylaxis #1 ea diphenhydramine HCl 25 mg tablet 25 mg PO DAILY PRN itching 05/19/21 03/31/22 History (Benadryl Allergy) melatonin 3 mg disintegrating 3 mg PO HS PRN Insomnia 07/22/21 03/31/22 History tablet nitroglycerin 0.4 mg sublingual 0.4 mg sublingual DIRECTED PRN 07/25/21 03/31/22 Rx tablet Chest Pain #30 tabs blood sugar diagnostic (OneTouch #200 ea 10/11/21 03/03/22 Rx Ultra Test strips) montelukast 10 mg tablet 10 mg PO QPM #90 tabs 10/19/21 03/31/22 Rx (Singulair) clopidogrel 75 mg tablet (Plavix) 75 mg PO QAM #90 tabs 11/16/21 03/31/22 Rx escitalopram oxalate 20 mg tablet 20 mg PO HS #90 tabs 11/16/21 03/31/22 Rx insulin aspart U-100 100 unit/mL 2 unit subcut BID 01/24/22 03/31/22 History (3 mL) subcutaneous pen (Novolog Flexpen U-100 Insulin aspart) cholecalciferol (vitamin D3) 125 5,000 unit PO DAILY@12 02/16/22 03/31/22 History mcg (5,000 unit) tablet (Vitamin D3) cyanocobalamin (vitamin B-12) 1,000 mcg PO DAILY@12 02/16/22 03/31/22 History 1,000 mcg tablet (Vitamin B-12) pantoprazole 40 mg tablet,delayed 40 mg PO AMPM 02/16/22 03/31/22 History release albuterol sulfate 90 mcg/actuation 2 puff inhalation Q4H PRN Wheezing 03/03/22 03/31/22 History aerosol inhaler (Ventolin HFA) diclofenac sodium 1 % topical gel See Rx Instructions .Route 03/03/22 03/31/22 History .COMPLEX PRN JOINT PAIN gabapentin 100 mg capsule 100 mg PO QID 03/03/22 03/31/22 History insulin glargine 100 unit/mL (3 10 unit subcut QAM 03/03/22 03/31/22 History mL) subcutaneous pen (Basaglar KwikPen U-100 Insulin) lactase 3,000 unit tablet (Lactaid) 9,000 unit PO TID PRN before meal 03/03/22 03/31/22 History loperamide 2 mg tablet 4 mg PO Q4H PRN Loose Stool 03/03/22 03/31/22 History (Anti-Diarrheal (loperamide)) lidocaine 4 % topical patch 1 patch topical QAM 03/06/22 03/31/22 History mirabegron 25 mg tablet,extended 25 mg PO QPM #30 tabs 03/08/22 03/31/22 Rx release 24 hr (Myrbetriq) pen needle, diabetic 31 gauge x 03/15/22 History 5/16" (BD Ultra-Fine Short Pen Needle) amlodipine 5 mg tablet 5 mg PO DAILY #30 tabs 03/31/22 03/31/22 Rx hydrocortisone 1 % topical cream 1 applic topical TID PRN Rash 03/31/22 03/31/22 History ipratropium bromide 21 mcg (0.03 1 spray intranasal DAILY 03/31/22 03/31/22 History %) nasal spray oxybutynin chloride 5 mg tablet 5 mg PO TID PRN urinary discomfort 03/31/22 03/31/22 History Patient History Medical History (Updated 04/01/22 @ 09:33 by Idris Michele MD) Acute hypercapnic respiratory failure 03/2019 [facility] (acute kidney injury) Anxiety and depression Asthma Per pulmonology 10/10/19, likely NOT asthma but chronic aspiration. Flovert and Spiriva discontinued, pt to use albuterol PRN Breast cancer UNSURE WHICH SIDE WAS CANCER. Chronic back pain Chronic neck pain Chronic pulmonary aspiration 2/2 h/o CVA, [facility]. Fusion of spine GERD (gastroesophageal reflux disease) History of benign brain tumor History of dysphagia ESOPHAGEAL DILATION IN PAST History of esophageal dilatation History of spinal stenosis History of stroke History of uterine cancer Endometrial biopsy revealed endometrioid adenocarcinoma. Status post total abdominal hysterectomy and bilateral salpingo-oophorectomy. Status post completion of radiation therapy with external beam radiation as well as 2 HDR treatments completed 08/15/2013 Hypertension Left pontine stroke 01/2019, on Plavix, following with [facility] neurology. Lymphedema of right arm CHRONIC, 2/2 MASTECTOMY Meningioma R temporal lobe, neurology monitoring. Microalbuminuria due to type 2 diabetes mellitus Microcytic anemia Morbid obesity Neuropathy Numb feet, painful radiculopathy in hands from cervical radiculopathy Obesity hypoventilation syndrome Osteoarthritis PAC (premature atrial contraction) PVC (premature ventricular contraction) Sensorineural hearing loss (SNHL) of both ears Severe obstructive sleep apnea CPAP, pt reports compliance T2DM (type 2 diabetes mellitus) Uterine cancer S/P RICHARD BSO WITH RADIATION Weakness Surgical History Difficult airway for intubation History of cardiac catheterization NO STENTS History of cataract surgery BILATERAL History of cholecystectomy History of colonoscopy History of esophagogastroduodenoscopy (EGD) History of knee surgery ARTHROSCOPY LEFT KNEE History of mastectomy BILATERAL History of total abdominal hysterectomy BSO Family History Mother Diabetes Myocardial infarction Hypertension Family history of diabetes mellitus Brother Family history of diabetes mellitus Sister Osteoporosis Arthritis Denies family history of Ovarian cancer Prostate cancer Breast cancer Colorectal cancer Social History Smoking Status: Former smoker Tobacco Type: Cigarettes Age Started Using Tobacco: 15; Age Quit Using Tobacco: 30; packs per day: 1; Second Hand Exposure: No; Hx Alcohol Use: No Hx Substance Use: No Preferred Language: Maltese Communication Ability: Effective Visual Impairment: Limited Hearing Ability: Hard of Hearing 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: No Beliefs That Will Affect Care: None marital status: / Current Living Situation: Personal Care Facility Current Living Situation Comment: Assisted living current occupational status: retired Other Information That Helps Us Care for You: No Feels Safe at Home: Yes Safety Concerns: Feels Safe At This Time Childhood Exposure to Second-Hand Smoke: No Diet Comment: low carb Dental Care, Regularly: Yes Physical Activity Frequency: Does not Exercise Seatbelt Use: always Sunscreen Use: Yes Assistive Devices: Glasses and Walker Review of Systems Constitutional: + weakness; no fever and no fatigue Eyes: no diplopia, no eye pain and no worsening vision Ear, Nose, Mouth, Throat: no ear pain, no tinnitus, no hearing loss, no dizziness, no snoring, no hoarseness and no dysphagia Respiratory: no cough and no dyspnea Cardiovascular: no chest pain, no palpitations and no lightheadedness Gastrointestinal: no abdominal pain, no nausea and no vomiting Genitourinary: no dysuria, no urinary frequency and no urinary incontinence Musculoskeletal: + back pain and + neck pain; no radicular pain, no joint pain and no myalgia Integumentary: no rash and no lesions Neurologic: + gait abnormality, + localized weakness and + numbness; no generalized weakness, no tingling, no tremor(s), no abnormal movements, no headache(s), no abnormal speech, no confusion and no memory loss Psychiatric: no depression, no irritability, no anxiety, no difficulty concentrating, no confusion and no hallucinations Endocrine: no fatigue and no flushing Hematologic / Lymphatic: no easy bleeding and no easy bruising Allergy / Immunological: no urticaria and no problem reported Exam (Neuro) Physical Exam: The patient is right-handed. The patient is awake, alert, and attentive. Speech is normal without any aphasia or dysarthria. The patient can name objects, repeat phrases, and has normal spontaneous speech. Mentation and thought processes are intact, with orientation to person, place and time, and normal fund of knowledge. Attention and concentration are normal. Mood and affect are normal and appropriate. General appearance and grooming are normal. Short and long-term memory are intact to conversation. Pupils are 4 mm bilaterally and reactive to light. Extraocular eye muscles are intact without nystagmus, however, she has a predominant right exotropia ( her whole life) fixating mostly with the left eye. When keeping both eyes open and covering the left eye, she will fix with her right and she will have exotropia on the left. Visual acuity and visual archibald seem normal grossly to confrontation. There are no deficits to sensation in the face in all 3 distributions of the fifth cranial nerve bilaterally. Corneal reflexes are positive bilaterally. Facial strength and symmetry was normal bilaterally -There was no facial droop or asymmetry that I could appreciate. Hearing seems normal bilaterally. Palate moves well without asymmetry. There is normal sternocleidomastoid and trapezius (shoulder shrug) strength bilaterally. Tongue is midline with good strength bilaterally. Neck has a full range of motion without discomfort. There are no cervical bruits bilaterally. There are no cranial or ocular bruits. Heart is without murmur. There is a regular rhythm and rate. Cervical, thoracic, and lumbar spine have some mild nonspecific tenderness to palpation. Gait Is not tested but stance sitting up in bed is reasonable. With outstretched arms there is drift on the left. There is drift noted in the left lower extremity as well. There are no resting, postural, or action tremors. There is no ataxia with finger to nose testing. There is decreased facility in the left hand. No other abnormal involuntary movements are noted. 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 left upper extremity is 4/5 diffusely. Motor strength is 5/5 diffusely in the Right lower extremity including hip flexors, quadriceps, hamstrings, gastrocnemius, tibialis anterior, tibialis posterior, and Peroneii muscles. left lower extremity is 4/5 diffusely. The limbs have good tone without rigidity or spasticity. There is no atrophy noted in the muscles. Muscle bulk is normal, there is no tenderness to palpation, no myotonia to percussion, and no fasciculations seen. Sensory examination Reveals some decreased sensation to pinprick in the left forehead compared to the right ( with sparing of the cheek and jaw ) and decreased pinprick in the entire left side of the body compared to the right which seems normal. There is decreased pin in the feet. Reflexes are 2/4 in the biceps, triceps, brachioradialis, and quadriceps bilaterally. Achilles tendon reflexes were absent bilaterally. There is no clonus bilaterally. Toes are downgoing with plantar stimulation On the right, and equivocal to upgoing with plantar stimulation on the left. Peripheral pulses are present and of normal quality distally in all 4 limbs. There is no peripheral edema noted in the limbs. Results & Data ([facility]) Vital Signs (Past 12 Hours) Vital Signs Temp Pulse Pulse Resp BP BP Pulse Ox 04/01/22 07:21 36.5 C 62 18 145/78 H 98 04/01/22 04:17 67 04/01/22 04:26 37.2 C 18 144/81 H 95 04/01/22 04:00 21 145/78 H 98 04/01/22 02:56 160/66 H 04/01/22 01:25 73 20 04/01/22 01:20 67 23 04/01/22 01:10 66 22 04/01/22 01:00 68 24 04/01/22 00:50 73 22 12/31/22 00:40 70 17 04/01/22 00:30 76 20 04/01/22 00:20 71 21 04/01/22 00:10 72 25 H 04/01/22 00:00 71 21 03/31/22 23:50 76 23 03/31/22 23:40 82 20 03/31/22 23:30 76 17 95 03/31/22 23:20 78 17 96 03/31/22 23:10 83 23 96 03/31/22 23:00 85 19 97 03/31/22 23:00 183/84 H 03/31/22 22:30 87 20 91 03/31/22 22:20 85 24 92 03/31/22 22:10 77 16 96 03/31/22 22:00 82 20 92 03/31/22 21:50 79 22 94 03/31/22 21:40 73 23 96 03/31/22 21:30 73 21 96 03/31/22 21:20 82 18 03/31/22 21:52 95 O2 Del Method 04/01/22 07:21 Room Air 04/01/22 04:17 04/01/22 04:26 Room Air 04/01/22 04:00 Room Air 04/01/22 02:56 04/01/22 01:25 04/01/22 01:20 04/01/22 01:10 04/01/22 01:00 04/01/22 00:50 04/01/22 00:40 04/01/22 00:30 04/01/22 00:20 04/01/22 00:10 04/01/22 00:00 03/31/22 23:50 03/31/22 23:40 03/31/22 23:30 03/31/22 23:20 03/31/22 23:10 03/31/22 23:00 03/31/22 23:00 03/31/22 22:30 03/31/22 22:20 03/31/22 22:10 03/31/22 22:00 03/31/22 21:50 03/31/22 21:40 03/31/22 21:30 03/31/22 21:20 03/31/22 21:52 Room Air PG Care Time/CCT Total # of Minutes Spent Total Time Spent with Patient: Total time spent is greater than 50% in coordination of care (as documented) at patient's floor/unit and/or counseling patient: Coding Level of Care Code INT OBSERVATION CARE 70M LVL 3 Diagnoses Acute left-sided weakness R53.1 Diabetic peripheral neuropathy associated with type 2 diabetes mellitus E11.42 Meningioma D32.9 Time Spent (min) 60
--- NOTE | 2022-04-01 11:02 | Magnetic Resonance Report ---
MRI OF THE BRAIN WITHOUT CONTRAST CLINICAL HISTORY: Difficulty walking. Loss of coordination. Evaluate for stroke. COMPARISON STUDY: MRI of the brain December 12, 2019. Head CT and CTA of the head March 31, 2022. TECHNIQUE: Utilizing a 1.5 Trisha magnet and dedicated coil, multiplanar, multiecho imaging of the bra in was performed without IV contrast. FINDINGS: A 1 cm focus of restricted diffusion within the right thalamus on axial image 11 of 22 is n oted. Corresponding mild T2 hyperintensity is noted. No additional foci of restricted diffusion are p resent. Ventricular system is unremarkable. Basal cisterns are patent. There are no extra-axial colle ctions. 1.4 cm extra-axial lesion overlying the right temporal convexity remains unchanged. There are no additional intracranial masses. Basal cisterns are patent. There are no extra-axial collections. White matter T2 hyperintense foci suggest small vessel disease. A 1.7 cm T2 hyperintense focus within the right petrous apex is unchanged from earlier exams. This is benign. No suspicious calvarial repl acement. IMPRESSION: 1. 1 cm acute right thalamic infarct. No mass effect. No hemorrhage. 2. Otherwise, unchanged appearance of the brain since previous MRI. ACT 112: Negative or not required by law. Electronically signed by: Kirby Anna M.D. 04/01/2022 11:00 AM
[2022-04-01] MEDS: ASPIRIN 81 MG ECTAB PO SCH (11:45)
[2022-04-01] MEDS: CLOPIDOGREL BISULFATE 75 MG TAB PO SCH (11:46)
[2022-04-01] MEDS: amLODIPine BESYLATE 5 MG TAB PO SCH (11:47)
--- NOTE | 2022-04-01 14:31 | XCELERA ---
[id number] \\[id number]\PDF_Reports\[id number]
--- NOTE | 2022-04-01 14:46 | Electrocardiogram Report ---
Test Reason : Blood Pressure : / mmHG Vent. Rate : 069 BPM Atrial Rate : 069 BPM P-R Int : 166 ms QRS Dur : 078 ms QT Int : 436 ms P-R-T Axes : 065 051 066 degrees QTc Int : 467 ms Normal sinus rhythm Normal ECG When compared with ECG of 16-FEB-2022 09:58, No significant change was found Confirmed by Girma York ([id number]) on 04/01/2022 2:45:53 PM Referred By: REFERRED SELF Confirmed By:Girma York
--- NOTE | 2022-04-01 15:08 | Hospitalist Progress Note ---
Date of Service April 01, 2022 Assessment & Plan (1) Stroke-like symptom: Plan: Acute ischemic right thalamic CVA noted on MRI scanning. No significant arterial stenoses seen on head and neck CTA. Neurology consultation and recommendations appreciated. She is now on aspirin and Plavix. OT, PT, and speech assessments have been requested. She will need IPR placement at discharge. CT head without evidence of bleed, CTA head/neck notable for mild atherosclerotic disease but without evidence of large vessel occlusion, dissection, aneurysm, or hemodynamically-significant stenosis. (2) T2DM (type 2 diabetes mellitus): Plan: ADA diet. Sliding scale insulin as needed. Continue home regimen (3) Anxiety and depression: Plan: Stable. Continue current medical management (4) Asthma: Plan: Stable. Continue current medical management (5) Chronic kidney disease, stage 3a: Plan: Monitor intake and output. Serial labs (6) Dyslipidemia: Plan: Low-cholesterol diet. Statin therapy (7) GERD (gastroesophageal reflux disease): Plan: Continue PPI therapy (8) Hypertension: Plan: Stable with current antihypertensive medications (9) Obesity hypoventilation syndrome: Plan: Supportive care. Weight loss recommended (10) Severe obstructive sleep apnea: Plan: Supportive care. CPAP as needed. Weight loss recommended Plan Anticipate eventual discharge to [facility] facility for rehab. Admission and Anticipated Discharge Date Admission Date: April 01, 2022 Subjective Alert and oriented. No acute distress. Daughter is at the bedside. She is aware the brain MRI scan revealed an ischemic acute right thalamic CVA. No significant arterial stenosis per head and neck CTA. Cardiac echo was unremarkable. Neurology consultation reviewed and appreciated. She is on aspirin and Plavix. OT, PT, speech therapies are involved. She will need IPR placement at discharge. Review of Systems Review of Systems: Constitutional-no fever or chills ENT-no blurred vision, no double vision, no epistaxis, no sore throat Respiratory-no cough, no wheezing, no shortness of breath Cardiac-no palpitations, no chest pain, no syncope GI-no nausea, vomiting, diarrhea, melena, hematochezia -no urinary retention, no urinary incontinence, no dysuria, no hematuria Musculoskeletal-no joint pain, no muscle tenderness Skin-no bruising, no rashes, no pruritus Neuro-no isolated weakness, no paresthesia, no weakness Psych-no depression, no anxiety Physical Exam Physical Exam: General-alert and oriented x3, no fevers, no chills HEENT-head atraumatic and normocephalic, pupils equal and reactive to light, ex traocular muscles intact Neck-no lymphadenopathy or thyromegaly, trachea midline Chest-clear to auscultation percussion. No rales wheezing or rhonchi Cardiac-regular rate and rhythm, normal S1 and S2 Abdomen-normal bowel sounds, nontender, no hepatosplenomegaly Extremities-no cyanosis, clubbing, or edema Neuro-cranial nerves II through XII intact, motor and sensory function within normal limits, strength symmetrical , no focal deficits Psych-normal affect, normal mood Results & Data Results & Data ([facility]) Vital Signs (Past 12 Hours) Vital Signs Temp Pulse Pulse Resp BP BP Pulse Ox 04/01/22 13:33 04/01/22 08:00 67 04/01/22 11:18 37.0 C 64 18 136/77 97 04/01/22 07:21 36.5 C 62 18 145/78 H 98 04/01/22 04:17 67 04/01/22 04:26 37.2 C 18 144/81 H 95 04/01/22 04:00 21 145/78 H 98 Pulse Ox O2 Del Method 04/01/22 13:33 96 04/01/22 08:00 04/01/22 11:18 Room Air 04/01/22 07:21 Room Air 04/01/22 04:17 04/01/22 04:26 Room Air 04/01/22 04:00 Room Air Laboratory Results 04/01/22 06:05 04/01/22 06:04 PG Care Time/CCT Total # of Minutes Spent Total Time Spent with Patient: Total time spent is greater than 50% in coordination of care (as documented) at patient's floor/unit and/or counseling patient: Coding Level of Care Code 90976 Subseq Hosp Care Lvl 3 Diagnoses Stroke-like symptom R29.90 T2DM (type 2 diabetes mellitus) E11.9 Anxiety and depression F41.9; F32.9 Asthma J45.909 Chronic kidney disease, stage 3a N18.31 Dyslipidemia E78.5 GERD (gastroesophageal reflux disease) K21.9 Hypertension I10 Hypertension type: unspecified Obesity hypoventilation syndrome E66.2 Severe obstructive sleep apnea G47.33 (1) Hypertension Hypertension type: unspecified Qualified Code(s): I10 - Essential (primary) hypertension
[2022-04-01] MEDS: ESCITALOPRAM OXALATE 20 MG TAB PO SCH (21:29)
[2022-04-01] MEDS: PANTOprazole 40 MG TAB PO SCH (21:30)
[2022-04-01] MEDS: MELATONIN 3 MG TAB PO PRN (21:31)
[2022-04-01] MEDS: MONTELUKAST SODIUM 10 MG TABLET PO SCH (21:31)
[2022-04-01] MEDS: MIRABEGRON ER 25 MG TAB PO SCH (21:31)
[2022-04-01] MEDS: GABAPENTIN 100 MG CAP PO SCH (21:31)
[2022-04-02 06:45] LABS: Basophils # (auto) 0.03 K/uL (0-0.2); Basophils % (auto) 0.7 %; Eosinophils # (auto) 0.12 K/uL (0-0.50); Eosinophils % (auto) 2.9 %; Hematocrit (blood only) 39.7 % (34.1-44.9); Hemoglobin 12.5 g/dl (12.0-16.0); Immature Granulocytes # (auto) 0.02 K/uL (0.00-0.02); Immature Granulocytes % (auto) 0.5 %; Lymphocytes # (auto) 1.01 K/uL (1.2-3.4); Lymphocytes % (auto) 24.3 %; Mean Platelet Volume 9.3 fL (9.4-12.3); Monocytes # (auto) 0.32 K/uL (0.24-0.82); Monocytes % (auto) 7.7 %; Neutrophils # (auto) 2.65 K/uL (1.4-6.5); Neutrophils % (auto) 63.9 %; Platelet Count 110 K/uL (130-400); White Blood Count 4.15 K/ul (4.8-10.8)
[2022-04-02 07:09] LABS: BUN Creatinine Ratio 18.1 (10-20); Calcium 8.8 mg/dl (8.5-10.1); Creatinine Clr Calc Pharmacy 40.5 ml/min; Est GFR (African American) 57.7 ml/min; Est GFR (Non-African American) 49.8 ml/min; Potassium 3.8 mmol/L (3.5-5.1)
[2022-04-02 07:15] LABS: Mean Corpuscular Hemoglobin 23.7 pg (25.0-34.0); Mean Corpuscular Hgb Conc 31.5 g/dL (32.0-36.0); Mean Corpuscular Volume 75.2 fL (80.0-100.0); RDW Coefficient of Variation 15.1 % (11.5-14.5); RDW Standard Deviation 40.5 fL (36.4-46.3); Red Blood Count 5.28 M/uL (3.93-5.22)
[2022-04-02] MEDS: ASPIRIN 81 MG ECTAB PO SCH (09:19)
[2022-04-02] MEDS: CLOPIDOGREL BISULFATE 75 MG TAB PO SCH (09:20)
[2022-04-02] MEDS: GABAPENTIN 100 MG CAP PO SCH ×4 (09:20→21:23)
[2022-04-02] MEDS: PANTOprazole 40 MG TAB PO SCH ×2 (09:20→21:24)
[2022-04-02] MEDS: amLODIPine BESYLATE 5 MG TAB PO SCH (09:20)
[2022-04-02] MEDS: INSULIN ASPART PER UNIT SC SCH ×4 (09:21→20:26)
--- NOTE | 2022-04-02 12:53 | Hospitalist Progress Note ---
Date of Service April 02, 2022 Assessment & Plan (1) Stroke-like symptom: Plan: Acute ischemic right thalamic CVA noted on MRI scanning. She has a mild left hemiparesis as a result . No significant arterial stenoses seen on head and neck CTA. Neurology consultation and recommendations appreciated. She is now on aspirin and Plavix. Continue OT, PT, and speech therapy treatments. She will need IPR placement at discharge. CT head without evidence of bleed, CTA head/neck notable for mild atherosclerotic disease but without evidence of large vessel occlusion, dissection, aneurysm, or hemodynamically-significant stenosis. (2) T2DM (type 2 diabetes mellitus): Plan: ADA diet. Sliding scale insulin as needed. Continue home regimen (3) Anxiety and depression: Plan: Stable. Continue current medical management (4) Asthma: Plan: Stable. Continue current medical management (5) Chronic kidney disease, stage 3a: Plan: Monitor intake and output. Serial labs (6) Dyslipidemia: Plan: Low-cholesterol diet. Statin therapy (7) GERD (gastroesophageal reflux disease): Plan: Continue PPI therapy (8) Hypertension: Plan: Stable with current antihypertensive medications (9) Obesity hypoventilation syndrome: Plan: Supportive care. Weight loss recommended (10) Severe obstructive sleep apnea: Plan: Supportive care. CPAP as needed. Weight loss recommended Plan Anticipate eventual discharge to [facility] facility for rehab. Admission and Anticipated Discharge Date Admission Date: April 01, 2022 Subjective Alert and oriented. Nursing staff noticed some aspiration with lunch. Speech therapy notified. She has mild left-sided weakness from the acute right thala mus CVA. She will eventually be discharged to [facility]. Review of Systems Review of Systems: Constitutional-no fever or chills ENT-she has known strabismus of the right eye. She states she is having some difficulty focusing at this time. No vision loss however. Respiratory-no cough, no wheezing, no shortness of breath Cardiac-no palpitations, no chest pain, no syncope GI-no nausea, vomiting, diarrhea, melena, hematochezia -no urinary retention, no urinary incontinence, no dysuria, no hematuria Musculoskeletal-no joint pain, no muscle tenderness Skin-no bruising, no rashes, no pruritus Neuro-mild left hemiparesis from known acute right ischemic thalamic CVA Psych-no depression, no anxiety Physical Exam Physical Exam: General-alert and oriented x3, no fevers, no chills HEENT-head atraumatic and normocephalic, pupils equal and reactive to light, right 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 No rales wheezing or rhonchi Cardiac-regular rate and rhythm, normal S1 and S2 Abdomen-normal bowel sounds, nontender, no hepatosplenomegaly Extremities-no cyanosis, clubbing, or edema Neuro-mild left hemiparesis involving left arm and left leg. Psych-normal affect, normal mood Results & Data Results & Data ([facility]) Vital Signs (Past 12 Hours) Vital Signs Temp Pulse Pulse Resp BP Pulse Ox O2 Del Method 04/02/22 11:53 36.5 C 64 18 159/62 H 94 Room Air 04/02/22 08:15 36.5 C 68 17 160/64 H 96 Room Air 04/02/22 07:38 64 04/02/22 02:55 36.8 C 66 18 115/57 L 92 Room Air Laboratory Results 04/02/22 06:01 04/02/22 06:01 PG Care Time/CCT Total # of Minutes Spent Total Time Spent with Patient: Total time spent is greater than 50% in coordination of care (as documented) at patient's floor/unit and/or counseling patient: Coding Level of Care Code 89459 Subseq Hosp Care Lvl 3 Diagnoses Stroke-like symptom R29.90 T2DM (type 2 diabetes mellitus) E11.9 Anxiety and depression F41.9; F32.9 Asthma J45.909 Chronic kidney disease, stage 3a N18.31 Dyslipidemia E78.5 GERD (gastroesophageal reflux disease) K21.9 Hypertension I10 Hypertension type: unspecified Obesity hypoventilation syndrome E66.2 Severe obstructive sleep apnea G47.33 (1) Hypertension Hypertension type: unspecified Qualified Code(s): I10 - Essential (primary) hypertension
[2022-04-02] MEDS: MELATONIN 3 MG TAB PO PRN (21:23)
[2022-04-02] MEDS: MIRABEGRON ER 25 MG TAB PO SCH (21:24)
[2022-04-02] MEDS: ESCITALOPRAM OXALATE 20 MG TAB PO SCH (21:24)
[2022-04-02] MEDS: MONTELUKAST SODIUM 10 MG TABLET PO SCH (21:24)
[2022-04-03 07:45] LABS: Basophils # (auto) 0.03 K/uL (0-0.2); Basophils % (auto) 0.7 %; Eosinophils % (auto) 2.4 %; Hematocrit (blood only) 37.7 % (34.1-44.9); Hemoglobin 11.8 g/dl (12.0-16.0); Immature Granulocytes # (auto) 0.02 K/uL (0.00-0.02); Immature Granulocytes % (auto) 0.5 %; Lymphocytes % (auto) 24.3 %; Mean Platelet Volume 8.9 fL (9.4-12.3); Monocytes # (auto) 0.33 K/uL (0.24-0.82); Neutrophils # (auto) 2.64 K/uL (1.4-6.5); Neutrophils % (auto) 64.1 %; Platelet Count 101 K/uL (130-400); White Blood Count 4.12 K/ul (4.8-10.8)
[2022-04-03] MEDS: INSULIN ASPART PER UNIT SC SCH ×2 (08:00→12:02)
[2022-04-03] MEDS: ASPIRIN 81 MG ECTAB PO SCH (08:01)
[2022-04-03] MEDS: CLOPIDOGREL BISULFATE 75 MG TAB PO SCH (08:01)
[2022-04-03] MEDS: PANTOprazole 40 MG TAB PO SCH (08:01)
[2022-04-03] MEDS: amLODIPine BESYLATE 5 MG TAB PO SCH (08:01)
[2022-04-03] MEDS: GABAPENTIN 100 MG CAP PO SCH ×2 (08:01→12:03)
[2022-04-03 08:19] LABS: Mean Corpuscular Hemoglobin 23.5 pg (25.0-34.0); Mean Corpuscular Hgb Conc 31.3 g/dL (32.0-36.0); RDW Coefficient of Variation 14.7 % (11.5-14.5); RDW Standard Deviation 39.5 fL (36.4-46.3); Red Blood Count 5.03 M/uL (3.93-5.22)
[2022-04-03 08:22] LABS: BUN Creatinine Ratio 18.1 (10-20); Calcium 8.9 mg/dl (8.5-10.1); Creatinine Clr Calc Pharmacy 36.6 ml/min; Est GFR (African American) 51.1 ml/min; Est GFR (Non-African American) 44.1 ml/min; Potassium 3.6 mmol/L (3.5-5.1)
--- NOTE | 2022-04-03 11:41 | Fluoroscopy Report ---
FL video swallow CLINICAL HISTORY: 81 years-old Female with r/o aspiration. Dysphasia TECHNIQUE: Video fluoroscopic evaluation of swallowing was performed in the AP and lateral projection s by the speech pathology staff. The patient is fed thin liquid, mildly thick, pudding and cracker wi th paste consistencies. FLUOROSCOPY TIME: 2.3 minutes. COMPARISON STUDY: CT abdomen and pelvis 02/16/2022 FINDINGS: There is normal hyoid excursion and epiglottic deflection. No significant penetration or as piration identified. Swallowing function is within normal limits. IMPRESSION: 1. No aspiration identified. 2. Please see the speech pathologist report for detailed findings and recommendations. ACT 112: Negative or not required by law. Electronically signed by: Frandy Pitts M.D. 04/03/2022 11:38 AM
--- NOTE | 2022-04-03 11:46 | Discharge Summary ---
Date of Service April 03, 2022 Admission HPI Per Admitting Provider 81yo female with a history of HTN, HLD, prior CVA (2019), T2DM, CKD3, CAMRON, OHS, asthma, GERD, MDD, and DEEPAK presents after developing left-sided weakness on 03/30 around 17:00 (approximately 27 hours prior to presenting to the ED). Patient first noticed some left-sided weakness along with associated blurry vision.Symptoms did not improve over the next day, prompting patient's presentation to the ED. Patient's daughter is at bedside and provides additional information - she notes patient seems to be at her cognitive baseline during our interview. Patient denies fever, chills, headache, CP, palpitations, SOB, abdominal pain, nausea, vomiting, dysuria, hematochezia, melena, or other symptoms. Denies recent illness and recent travel. Upon arrival, vitals were notable for mildly elevated BP (150s/60s); no tachycardia, no tachypnea, patient afebrile, spO2 adequate on room air. Initial labs were notable for mild leukopenia (4.2) and thrombocytopenia (102); no anemia, no electrolyte abnormalities, creatinine not elevated, LFTs wnl, Tbili not elevated. In the ED, patient received ASA 324mg PO. EKG: NSR, no overt ischemic change CT head: no acute process CTA head/neck: mild atherosclerotic disease without evidence of large vessel occlusion, dissection, aneurysm, or hemodynamically-significant stenosis Surrogate decision-maker in case of an emergency: daughter Stephanie Palma (cell: [phone]) Principal Diagnosis Ischemic right thalamus CVA with left hemiparesis Discharge Exam General-alert and oriented x3, no fevers, no chills HEENT-head atraumatic and normocephalic, pupils equal and reactive to light, right 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 No rales wheezing or rhonchi Cardiac-regular rate and rhythm, normal S1 and S2 Abdomen-normal bowel sounds, nontender, no hepatosplenomegaly Extremities-no cyanosis, clubbing, or edema Neuro-mild left hemiparesis involving left arm and left leg. Psych-normal affect, normal mood Discharge Data Allergies Allergy/AdvReac Type Severity Reaction Status Date / Time cantaloupe Allergy Severe THROAT Verified 03/31/22 23:10 CLOSES celecoxib [From Celebrex] Allergy Severe CAUSED Verified 03/31/22 23:10 STROKE melon Allergy Severe THROAT Verified 03/31/22 23:10 CLOSES meperidine Allergy Severe almost Verified 03/31/22 23:10 "closed throat" midodrine Allergy Severe "almost Verified 03/31/22 23:10 closed throat" Penicillins Allergy Severe ANAPHYLAXIS Verified 03/31/22 23:10 sulfamethoxazole Allergy Severe THROAT Verified 03/31/22 23:10 CLOSED trimethoprim Allergy Severe THROAT Verified 03/31/22 23:10 CLOSED watermelon Allergy Severe THROAT Verified 03/31/22 23:10 CLOSES diphenoxylate Allergy Intermediate Unknown Verified 03/31/22 23:10 metronidazole [From Flagyl] Allergy Intermediate Hives Verified 03/31/22 23:10 DENILSON Inhibitors Allergy Unknown unknown to Verified 03/31/22 23:10 pt atropine Allergy Unknown Unknown Verified 03/31/22 23:10 carvedilol Allergy Unknown Unknown Verified 03/31/22 23:10 clonazepam [From Klonopin] Allergy Unknown Unknown Verified 03/31/22 23:10 doxycycline Allergy Unknown Unknown Verified 03/31/22 23:10 furosemide [From Lasix] Allergy Unknown Unknown Verified 03/31/22 23:10 Histamine H2 Inhibitors Allergy Unknown unknown to Verified 03/31/22 23:10 pt Iodinated Contrast Media Allergy Unknown JULY 2017 Verified 03/31/22 23:10 [facility] -- TOLERATED WITH SLOW INFUSION PER PATIENT nitrofurantoin Allergy Unknown Unknown Verified 03/31/22 23:10 phenazopyridine Allergy Unknown Unknown Verified 03/31/22 23:10 ranitidine Allergy Unknown Unknown Verified 03/31/22 23:10 repaglinide Allergy Unknown Unknown Verified 03/31/22 23:10 rosiglitazone Allergy Unknown Unknown Verified 03/31/22 23:10 tolterodine [From Detrol] Allergy Unknown Unknown Verified 03/31/22 23:10 ciprofloxacin [From Cipro] AdvReac Severe throat Verified 03/31/22 23:10 swelling citalopram [From Celexa] AdvReac Severe SEE COMMENT Verified 03/31/22 23:10 diazepam AdvReac Severe SEDATION Verified 03/31/22 23:10 LASTING TOO LONG prednisone AdvReac Severe BSG Verified 03/31/22 23:10 ELEVATED TO THE 500'S glyburide AdvReac Intermediate SEVERE Verified 03/31/22 23:10 ABDOMINAL PAIN meloxicam [From Mobic] AdvReac Intermediate SICK TO Verified 03/31/22 23:10 STOMACH metformin AdvReac Intermediate SEVERE Verified 03/31/22 23:10 ABDOMINAL PAIN oxycodone AdvReac Intermediate SEVERE Verified 03/31/22 23:10 WITHDRAWAL SYMPTOMS WHEN TRYING TO STOP TAKING paroxetine AdvReac Intermediate DID NOT Verified 03/31/22 23:10 HELP tramadol AdvReac Intermediate Vomiting Verified 03/31/22 23:10 albuterol AdvReac Unknown UNK Verified 03/31/22 23:10 carbamazepine AdvReac Unknown Unknown Verified 03/31/22 23:10 ibuprofen AdvReac Unknown Unknown Verified 03/31/22 23:10 lisinopril AdvReac Unknown UNK Verified 03/31/22 23:10 mirtazapine AdvReac Unknown Unknown Verified 03/31/22 23:10 olanzapine AdvReac Unknown Unknown Verified 03/31/22 23:10 rofecoxib AdvReac Unknown Unknown Verified 03/31/22 23:10 valproic acid AdvReac Unknown Unknown Verified 03/31/22 23:10 ceftriaxone AdvReac Unknown Verified 03/31/22 23:10 Consultations 04/01/22 00:24 ED Decision to Admit Stat 04/01/22 07:00 Consult Neurology Routine Ordered Studies 03/31/22 19:54 CT angio head w con Urgent CT angio neck with con Urgent CT head/brain wo con Urgent 04/01/22 06:00 MRI Brain [MR brain wo con] Routine 04/03/22 11:00 Fluoro video [FL video swallow] Routine Hospital Course (1) Stroke-like symptom: Acute ischemic right thalamic CVA noted on MRI scanning. She has a mild left hemiparesis as a result . No significant arterial stenoses seen on head and neck CTA. Neurology consultation and recommendations appreciated. She is now on aspirin and Plavix. Continue OT, PT, and speech therapy treatments. She will need IPR placement at discharge. CT head without evidence of bleed, CTA head/neck notable for mild atherosclerotic disease but without evidence of large vessel occlusion, dissection, aneurysm, or hemodynamically-significant stenosis. (2) T2DM (type 2 diabetes mellitus): ADA diet. Sliding scale insulin as needed. Continue home regimen (3) Anxiety and depression: Stable. Continue current medical management (4) Asthma: Stable. Continue current medical management (5) Chronic kidney disease, stage 3a: Monitor intake and output. Serial labs (6) Dyslipidemia: Low-cholesterol diet. Statin therapy (7) GERD (gastroesophageal reflux disease): Continue PPI therapy (8) Hypertension: Stable with current antihypertensive medications (9) Obesity hypoventilation syndrome: Supportive care. Weight loss recommended (10) Severe obstructive sleep apnea: Supportive care. CPAP as needed. Weight loss recommended (11) Swallowing dysfunction: Video swallow todayApril 03, was normal. Speech therapy is involved and will make necessary dietary adjustments. Plan [facility] for rehab todayApril 03 Total Time Total Time Spent Total Time Spent (In Minutes): 40 minutes Discharge Plan Discharge Items Patient Disposition: Transfer Inpatient Rehab Fac Reason For Visit: STROKE-LIKE SYMPTOMS Discharge Diagnosis: Ischemic right thalamic CVA with left hemiparesis Activity: Resume your previous activity Non-emergency contact: Primary Care Provider Call non-emergency contact if: you have any medication questions Follow-up/Referrals: Darwin Lugo III, CRNP [Primary Care Provider] - Diet: Carb Consistent or DM2 and Heart Healthy Addtl Attending Provider Instructions: Follow-up with primary care provider after discharge from [facility] inpatient rehabilitation Pending Studies at Discharge: No Stand-Alone Forms: My [facility] [employer] Skilled Items Patient informed of condition?: Yes DNR: Yes Discharge Level of Care: Acute rehab Communicable Disease: No Discharge Prognosis: Stable Lines: None Urinary Catheter: No Medications and DC Order Prescriptions: New aspirin 81 mg Tablet,Delayed Release (Dr/Ec) 81 mg PO QAM Qty: 30 0RF Continued epinephrine 0.3 mg/0.3 mL auto-injector 0.3 mg IM DIRECTED PRN (Reason: Anaphylaxis) Qty: 1 0RF (DME) OneTouch Ultra Test Strip See Rx Instructions .Route Qty: 200 2RF Rx Instructions: Test 4 times a day montelukast [Singulair] 10 mg tablet 10 mg PO QPM Qty: 90 3RF clopidogrel [Plavix] 75 mg tablet 75 mg PO QAM Qty: 90 3RF escitalopram oxalate 20 mg tablet 20 mg PO HS Qty: 90 3RF gabapentin 100 mg capsule 100 mg PO QID insulin glargine [Basaglar KwikPen U-100 Insulin] 100 unit/mL (3 mL) insulin pen 10 unit SUBCUT QAM albuterol sulfate [Ventolin HFA] 90 mcg/actuation HFA aerosol inhaler 2 puff INHALATION Q4H PRN (Reason: Wheezing) diclofenac sodium 1 % gel See Rx Instructions .ROUTE .COMPLEX PRN (Reason: JOINT PAIN) Rx Instructions: APPLY 2GM TOPICALLY TO SINGLE KNEE, ANKLE, AND FOOT (FOOT INCLUDES SOLE/TOES/TOP OF FOOT) FOUR TIMES DAILY NEEDED FOR JOINT PAIN loperamide [Anti-Diarrheal (loperamide)] 2 mg tablet 4 mg PO Q4H PRN (Reason: Loose Stool) Rx Instructions: administer after each loose stool until symptoms controlled; do not exceed 8 mg per 24 hrs lactase [Lactaid] 3,000 unit tablet 9,000 unit PO TID PRN (Reason: before meal) Rx Instructions: administer with meals and/or snacks amlodipine 5 mg tablet 5 mg PO DAILY Qty: 30 2RF (DME) lancets Misc See Rx Instructions .ROUTE .MEDSUPPLY Qty: 100 Rx Instructions: As directed (DME) Dexcom G6 Sensor Device See Rx Instructions .ROUTE .MEDSUPPLY Qty: 3 Rx Instructions: As directed (DME) Dexcom G6 Paper Spooler Misc See Rx Instructions .ROUTE .MEDSUPPLY Qty: 1 Rx Instructions: As directed (DME) Dexcom G6 Transmitter Device See Rx Instructions .ROUTE .MEDSUPPLY Qty: 1 Rx Instructions: As directed Myrbetriq 25 mg tablet extended release 24 hr 25 mg PO QPM Qty: 30 3RF nitroglycerin 0.4 mg tablet, sublingual 0.4 mg sublingual DIRECTED PRN (Reason: Chest Pain) Qty: 30 0RF Rx Instructions: PLACE ONE TABLET UNDER THE TONGUE EVERY 5 MINUTES FOR UP TO 3 DOSES OVER 15 MINUTES IF NEEDED FOR CHEST PAIN (DME) pen needle, diabetic [BD Ultra-Fine Short Pen Needle] 31 gauge x 5/16" needle See Rx Instructions .ROUTE .MEDSUPPLY Rx Instructions: Inject insulin three times daily lidocaine 4 % adhesive patch,medicated 1 patch topical QAM Rx Instructions: Remove at 9 PM Right foot. insulin aspart U-100 [Novolog Flexpen U-100 Insulin] 100 unit/mL (3 mL) insulin pen 2 unit subcut BID Rx Instructions: Take 2 units at noon and at dinner time 5pm diphenhydramine HCl [Benadryl Allergy] 25 mg tablet 25 mg PO DAILY PRN (Reason: itching) melatonin 3 mg Tablet,Disintegrating 3 mg PO HS PRN (Reason: Insomnia) cyanocobalamin (vitamin B-12) [Vitamin B-12] 1,000 mcg tablet 1,000 mcg PO DAILY@12 pantoprazole 40 mg tablet,delayed release (DR/EC) 40 mg PO AMPM cholecalciferol (vitamin D3) [Vitamin D3] 125 mcg (5,000 unit) tablet 5,000 unit PO DAILY@12 ipratropium bromide 21 mcg (0.03 %) spray,non-aerosol 1 spray intranasal DAILY Rx Instructions: administer into each nostril oxybutynin chloride 5 mg tablet 5 mg PO TID PRN (Reason: urinary discomfort) hydrocortisone 1 % cream 1 applic topical TID PRN (Reason: Rash) Discharge Orders: Discharge Order (Routine); Ordered 04/03/22 Ordered By: Collins Victoria Admission Data Admit Date/Time: 04/01/22 11:09 Attending Provider: Collins Victoria Provider: Speedy Milner Primary Care Provider: Darwin Lugo III Other Providers: Librado Yost ; Idris Michele ; [facility] Coding Level of Care Code D/C DAY MANAGEMENT >30 MINS Diagnoses Stroke-like symptom R29.90 T2DM (type 2 diabetes mellitus) E11.9 Anxiety and depression F41.9; F32.9 Asthma J45.909 Chronic kidney disease, stage 3a N18.31 Dyslipidemia E78.5 GERD (gastroesophageal reflux disease) K21.9 Hypertension I10 Hypertension type: unspecified Obesity hypoventilation syndrome E66.2 Severe obstructive sleep apnea G47.33 Swallowing dysfunction R13.10
== END 2022-04-03 13:19 | DRG 65 ==
LOC: ED 19:48 → 2W 19:48 → SUATTDRO 04-01 02:07 → 2W 04-01 04:00

== ENCOUNTER 2022-10-04 18:42 | Inpatient (IN) ==
--- NOTE | 2022-10-04 19:09 | Emergency Department Note ---
History of Present Illness General Chief complaint: Stroke/CVA Symptoms Time Seen by Provider: 10/04/22 18:49 Source: patient, RN notes reviewed and old records reviewed (I have reviewed the notes from the custodial as well as previous strokelike) Mode of arrival: ambulatory History of Present Illness This patient is a 81-year-old female who comes in after having strokelike symptoms. She apparently has been sleeping all day and woke up at 5 and did not feel well. She has had several previous strokes and says normally her left side is bad but it feels like she is weak all over feels like her right side is weak and also her left side feels weaker she feels like she is blurry vision. She lives at the [place]. Somebody checked on her at noon and apparently she was okay at that time so at this point that seems to be the last known well. Denies fall or trauma no fever chills no pain anywhere. Home Medications Medication Instructions Recorded Confirmed Type lancets #100 ea 03/03/20 09/12/22 History epinephrine 0.3 mg/0.3 mL 0.3 mg (0.3 mL) IM DIRECTED PRN 05/03/21 10/04/22 Rx injection, auto-injector Anaphylaxis #1 ea diphenhydramine HCl 25 mg tablet 25 mg PO DAILY PRN itching 05/19/21 10/04/22 History (Benadryl Allergy) melatonin 3 mg disintegrating 3 mg PO HS PRN Insomnia 07/22/21 10/04/22 History tablet cyanocobalamin (vitamin B-12) 1,000 mcg PO QDL 02/16/22 10/04/22 History 1,000 mcg tablet (Vitamin B-12) lactase 3,000 unit tablet (Lactaid) 9,000 unit PO DIRECTED PRN 03/03/22 10/04/22 History BEFORE ANY LACTOSE PRODUCTS loperamide 2 mg tablet 2 mg PO Q4H PRN Loose Stool 03/03/22 10/04/22 History (Anti-Diarrheal (loperamide)) lidocaine 4 % topical patch 2 patch topical DAILY PRN LOWER 03/06/22 10/04/22 History BACK PAIN hydrocortisone 1 % topical cream 1 applic topical TID PRN Rash 03/31/22 10/04/22 History oxybutynin chloride 5 mg tablet 5 mg PO TID PRN Bladder Spasms 03/31/22 10/04/22 History pen needle, diabetic 31 gauge x #300 ea 04/19/22 09/12/22 Rx 5/16" (BD Ultra-Fine Short Pen Needle) clopidogrel 75 mg tablet (Plavix) 75 mg PO QAM #90 tabs 04/27/22 10/04/22 Rx escitalopram oxalate 20 mg tablet 20 mg PO HS #90 tabs 04/27/22 10/04/22 Rx albuterol sulfate 90 mcg/actuation 2 puff inhalation Q4H PRN Wheezing 05/01/22 10/04/22 Rx aerosol inhaler (Ventolin HFA) #8.5 grams nitroglycerin 0.4 mg sublingual 0.4 mg sublingual DIRECTED PRN 05/01/22 10/04/22 Rx tablet Chest Pain #30 tabs aspirin 81 mg tablet,delayed 81 mg PO QAM #90 tabs 05/09/22 10/04/22 Rx release blood-glucose sensor (Dexcom G6 #3 ea 05/23/22 09/12/22 Rx Sensor device) blood-glucose transmitter (Dexcom #1 ea 05/23/22 09/12/22 Rx G6 Transmitter device) blood-glucose meter,continuous #1 ea 05/24/22 09/12/22 Rx (Dexcom G6 Box Icer) baclofen 10 mg tablet 10 mg PO BID PRN muscle spasm #60 07/14/22 10/04/22 Rx tabs magnesium oxide 400 mg PO DAILY #60 tabs 07/27/22 10/04/22 Rx blood sugar diagnostic (OneTouch #200 ea 07/28/22 09/12/22 Rx Ultra Test strips) hydrocodone 5 mg-acetaminophen 325 1 tab PO Q8H PRN pain #20 tabs 08/11/22 10/04/22 Rx mg tablet insulin glargine 100 unit/mL (3 14 unit (0.14 mL) subcut QAM #15 mL 09/27/22 10/04/22 Rx mL) subcutaneous pen (Basaglar KwikPen U-100 Insulin) ipratropium bromide 21 mcg (0.03 2 spray intranasal DAILY #30 mL 10/02/22 10/04/22 Rx %) nasal spray metoprolol tartrate 50 mg tablet 50 mg PO HS 10/04/22 10/04/22 History mirabegron 25 mg tablet,extended 25 mg PO HS 10/04/22 10/04/22 History release 24 hr (Myrbetriq) montelukast 10 mg tablet 10 mg PO QDD 10/04/22 10/04/22 History (Singulair) pantoprazole 40 mg tablet,delayed 40 mg PO BID17 10/04/22 10/04/22 History release vit C 250 mg-vit E 90 mg-zinc 40 1 tab PO QDD 10/04/22 10/04/22 History mg-copper 1 [id number] capsule (PreserVision AREDS-2) Allergies Allergy/AdvReac Type Severity Reaction Status Date / Time cantaloupe Allergy Severe THROAT Verified 10/04/22 20:36 CLOSES celecoxib [From Celebrex] Allergy Severe CAUSED Verified 10/04/22 20:36 STROKE melon Allergy Severe THROAT Verified 10/04/22 20:36 CLOSES meperidine Allergy Severe almost Verified 10/04/22 20:36 "closed throat" midodrine Allergy Severe "almost Verified 10/04/22 20:36 closed throat" Penicillins Allergy Severe ANAPHYLAXIS Verified 10/04/22 20:36 sulfamethoxazole Allergy Severe THROAT Verified 10/04/22 20:36 CLOSED trimethoprim Allergy Severe THROAT Verified 10/04/22 20:36 CLOSED watermelon Allergy Severe THROAT Verified 10/04/22 20:36 CLOSES diphenoxylate Allergy Intermediate Unknown Verified 10/04/22 20:36 metronidazole [From Flagyl] Allergy Intermediate Hives Verified 10/04/22 20:36 DENILSON Inhibitors Allergy Unknown unknown to Verified 10/04/22 20:36 pt atropine Allergy Unknown Unknown Verified 10/04/22 20:36 carvedilol Allergy Unknown Unknown Verified 10/04/22 20:36 clonazepam [From Klonopin] Allergy Unknown Unknown Verified 10/04/22 20:36 doxycycline Allergy Unknown Unknown Verified 10/04/22 20:36 furosemide [From Lasix] Allergy Unknown Unknown Verified 10/04/22 20:36 Histamine H2 Inhibitors Allergy Unknown unknown to Verified 10/04/22 20:36 pt Iodinated Contrast Media Allergy Unknown JULY 2017 Verified 10/04/22 20:36 [facility] -- TOLERATED WITH SLOW INFUSION PER PATIENT nitrofurantoin Allergy Unknown Unknown Verified 10/04/22 20:36 phenazopyridine Allergy Unknown Unknown Verified 10/04/22 20:36 ranitidine Allergy Unknown Unknown Verified 10/04/22 20:36 repaglinide Allergy Unknown Unknown Verified 10/04/22 20:36 rosiglitazone Allergy Unknown Unknown Verified 10/04/22 20:36 tolterodine [From Detrol] Allergy Unknown Unknown Verified 10/04/22 20:36 ciprofloxacin [From Cipro] AdvReac Severe throat Verified 10/04/22 20:36 swelling citalopram [From Celexa] AdvReac Severe SEE COMMENT Verified 10/04/22 20:36 diazepam AdvReac Severe SEDATION Verified 10/04/22 20:36 LASTING TOO LONG prednisone AdvReac Severe BSG Verified 10/04/22 20:36 ELEVATED TO THE 500'S glyburide AdvReac Intermediate SEVERE Verified 10/04/22 20:36 ABDOMINAL PAIN meloxicam [From Mobic] AdvReac Intermediate SICK TO Verified 10/04/22 20:36 STOMACH metformin AdvReac Intermediate SEVERE Verified 10/04/22 20:36 ABDOMINAL PAIN oxycodone AdvReac Intermediate SEVERE Verified 10/04/22 20:36 WITHDRAWAL SYMPTOMS WHEN TRYING TO STOP TAKING paroxetine AdvReac Intermediate DID NOT Verified 10/04/22 20:36 HELP tramadol AdvReac Intermediate Vomiting Verified 10/04/22 20:36 albuterol AdvReac Unknown UNK Verified 10/04/22 20:36 carbamazepine AdvReac Unknown Unknown Verified 10/04/22 20:36 ibuprofen AdvReac Unknown Unknown Verified 10/04/22 20:36 lisinopril AdvReac Unknown UNK Verified 10/04/22 20:36 mirtazapine AdvReac Unknown Unknown Verified 10/04/22 20:36 olanzapine AdvReac Unknown Unknown Verified 10/04/22 20:36 rofecoxib AdvReac Unknown Unknown Verified 10/04/22 20:36 valproic acid AdvReac Unknown Unknown Verified 10/04/22 20:36 ceftriaxone AdvReac Unknown Verified 10/04/22 20:36 Past Med/Surg History Medical History Acute hypercapnic respiratory failure 03/2019 [facility] (acute kidney injury) Anxiety and depression Asthma Per pulmonology 10/10/19, likely NOT asthma but chronic aspiration. Flovert and Spiriva discontinued, pt to use albuterol PRN Breast cancer UNSURE WHICH SIDE WAS CANCER. Chronic back pain Chronic kidney disease, stage 3a Chronic neck pain Chronic pulmonary aspiration 2/2 h/o CVA, [facility]. Diabetic peripheral neuropathy associated with type 2 diabetes mellitus Dyslipidemia Encephalopathy Fusion of spine GERD (gastroesophageal reflux disease) History of benign brain tumor History of dysphagia ESOPHAGEAL DILATION IN PAST History of esophageal dilatation History of spinal stenosis History of stroke History of uterine cancer Endometrial biopsy revealed endometrioid adenocarcinoma. Status post total abdominal hysterectomy and bilateral salpingo-oophorectomy. 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 [place] pontine stroke Leukopenia Lymphedema of right arm CHRONIC, 2/2 MASTECTOMY Meningioma R temporal lobe, neurology monitoring. Microalbuminuria due to type 2 diabetes mellitus Microcytic anemia Morbid obesity Neuropathy Numb feet, painful radiculopathy in hands from cervical radiculopathy Obesity hypoventilation syndrome Osteoarthritis PAC (premature atrial contraction) PVC (premature ventricular contraction) Sensorineural hearing loss (SNHL) of both ears Severe obstructive sleep apnea CPAP, pt reports compliance T2DM (type 2 diabetes mellitus) Uterine cancer S/P RICHARD BSO WITH RADIATION Weakness Surgical History Difficult airway for intubation History of cardiac catheterization NO STENTS History of cataract surgery BILATERAL History of cholecystectomy History of colonoscopy History of esophagogastroduodenoscopy (EGD) History of knee surgery ARTHROSCOPY LEFT KNEE History of mastectomy BILATERAL History of total abdominal hysterectomy BSO S/P hysterectomy Family History Mother Diabetes Myocardial infarction Hypertension Family history of diabetes mellitus Brother Family history of diabetes mellitus Sister Osteoporosis Arthritis Denies family history of Ovarian cancer Prostate cancer Breast cancer Colorectal cancer Social History Smoking Status: Never smoker Tobacco Type: Cigarettes Age Started Using Tobacco: 15; Age Quit Using Tobacco: 30; packs per day: 1; Second Hand Exposure: No; Do You Dip or Chew Tobacco: No; Hx Alcohol Use: No Hx Substance Use: No Preferred Language: Indonesian Communication Ability: Effective Communication Ability Comment: per [facility] pt signs own consents Visual Impairment: Limited Hearing Ability: Hard of Hearing Sales Floor Associate Required: No Beliefs That Will Affect Care: None marital status: / Current Living Situation: Personal Care Facility Current Living Situation Comment: Assisted living current occupational status: retired 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 Feels Safe at Home: Yes Childhood Exposure to Second-Hand Smoke: No Diet: low carbohydrate Diet Comment: low carb Dental Care, Regularly: Yes Physical Activity Frequency: Does not Exercise Seatbelt Use: always Sunscreen Use: No Assistive Devices: Walker Review of Systems A total of 10 systems reviewed and were otherwise negative Physical Exam Vital Signs Vital Signs - 24 hr 10/04/22 18:50 10/04/22 19:23 10/04/22 19:26 Temperature 36.9 C Temperature Source Temporal Artery Scan Pulse Rate 58 L Pulse Rate [Right Finger] 66 Respiratory Rate 18 22 Respiratory Effort / Characteristics Non-Labored Spontaneous Non-Labored Spontaneous Respiratory Depth Normal Normal Respiratory Pattern Agonal Blood Pressure 159/82 H Blood Pressure [Left Arm] 216/91 H 171/70 H Blood Pressure Mean 107 Blood Pressure Mean [Left Arm] 132 103 Blood Pressure Position Sitting Pulse Oximetry 94 99 Oxygen Delivery Method Room Air Room Air Sepsis Recent Fever Within 48 Hours No Sepsis New/Unexplained Change in Mental Status N/A Sepsis Action Taken by Nursing No Action Required 10/04/22 20:12 10/04/22 20:35 Temperature Temperature Source Pulse Rate 67 Pulse Rate [Right Finger] 62 Respiratory Rate 22 Respiratory Effort / Characteristics Respiratory Depth Respiratory Pattern Blood Pressure Blood Pressure [Left Arm] 178/72 H Blood Pressure Mean Blood Pressure Mean [Left Arm] 107 Blood Pressure Position Pulse Oximetry 94 Oxygen Delivery Method Room Air Sepsis Recent Fever Within 48 Hours Sepsis New/Unexplained Change in Mental Status Sepsis Action Taken by Nursing General: Well developed well nourished older female who appears anxious and teary-eyed in no acute distress, breathing comfortably on room air. Normal speech HEENT: Normal cephalic atraumatic. Pupils are equal round and reactive to light. Extraocular movements are intact. Oropharynx is pink with moist mucous membranes. No swelling of the mouth lips or tongue. She does appear to have a possible slight droop on the right Neck: Supple with a midline trachea. No meningeal signs or stiffness, no JVD or bruits. No Stridor. Chest: Clear to auscultation bilaterally. No wheezes or rhonchi. No increased work of breathing. Heart: Regular rate and rhythm without murmurs or gallops. Abdomen: Soft nontender, nondistended without rebound guarding or rigidity. Extremities: No cyanosis clubbing or edema. No calf tenderness or assymetry Spine/Back. Non tender to palpation. No CVA tenderness Skin: Good turgor without rashes. Neurologic exam: Cranial nerves two through 12 are intact. Motor and sensation are intact and symmetrical throughout. Course Administered Medications Discontinued Medications Ioversol (Optiray 320 125ml) 121 ml IV ONCE ONE Stop: 10/04/22 19:12 Last Admin: 10/04/22 19:12 Dose: 121 ml Documented By: ASHLEY Medical Decision Making Differential Diagnosis Stroke, TIA, electrolyte or metabolic abnormality, infection, sepsis, intracranial hemorrhage Medical Records Attestation: I reviewed the patient's medical records. Home Medications Current Medication List: was personally reviewed by me Laboratory Data Attestation: I reviewed the patient's lab results. 10/04/22 18:51 10/04/22 18:51 Lab Results 10/04/22 10/04/22 10/04/22 Range/Units 18:51 18:51 18:51 WBC 4.48 L (4.8-10.8) K/ul RBC 5.19 (4.20-5.40) M/uL Hgb 12.6 (12.0-16.0) g/dl POC Hgb (12.0-16.0) g/dl Hct 40.5 (37.0-47.0) % POC Hct (37-47) % MCV 78.0 L (80.0-100.0) fL MCH 24.3 L (25.0-34.0) pg MCHC 31.1 L (32.0-36.0) g/dL RDW Std Deviation 40.8 (36.4-46.3) fL RDW Coeff of Tim 14.6 H (11.5-14.5) % Plt Count 115 L (130-400) K/uL MPV 9.3 L (9.4-12.4) fL Immature Gran % (Auto) 0.4 % Neut % (Auto) 64.7 % Lymph % (Auto) 23.0 % [place] % (Auto) 8.5 % Eos % (Auto) 2.5 % Baso % (Auto) 0.9 % Neut # (Auto) 2.90 (1.40-6.50) K/uL Lymph # (Auto) 1.03 L (1.2-3.4) K/uL [place] # (Auto) 0.38 (0.11-0.59) K/uL Eos # (Auto) 0.11 (0-0.50) K/uL Baso # (Auto) 0.04 (0-0.2) K/uL Immature Gran # (Auto) 0.02 (0.01-0.20) K/uL PT 12.2 H (9.0-12.0) Seconds INR 1.1 (0.9-1.1) APTT 23.7 (21.0-31.0) Seconds PTT Ratio 0.8 POC Sodium (135-144) mmol/L Sodium 140 (136-145) mmol/L POC Potassium (3.3-5.0) mmol/L Potassium 4.2 (3.5-5.1) mmol/L POC Chloride (101-112) mmol/L Chloride 104 (98-107) mmol/L Carbon Dioxide 29 (21-32) mmol/L POC Total CO2 (24-31) mmol/L Anion Gap 7 (3-11) POC Anion Gap (16-25) mmol/L POC BUN (7-18) mg/dl BUN 32 H (6-23) mg/dl Creatinine 1.32 H (0.6-1.2) mg/dl POC Creatinine (0.6-1.3) mg/dl Est Cr Clr Drug Dosing 35.7 ml/min Est GFR ( Amer) 43.7 ml/min Est GFR (Non-Af Amer) 37.7 ml/min BUN/Creatinine Ratio 24.2 H (10-20) Glucose 136 H (70-99(Fasting)) mg/dl POC Glucose (70-99) mg/dl POC Glucose (other) (70-99) mg/dl Lactate (0.4-2.0) mmol/L Calcium 9.4 (8.6-10.3) mg/dl POC Ioniz Calcium Erin (1.12-1.32) mmol/l Magnesium 1.8 (1.7-2.4) mg/dl Total Bilirubin 0.9 (0.2-1.0) mg/dl AST 12 L (13-39) U/L ALT 8 (7-52) U/L Alkaline Phosphatase 65 (34-104) U/L Troponin I High Sens 11.5 (0-14) pg/ml Total Protein 7.4 (6.0-8.3) gm/dl Albumin 4.1 (3.4-5.0) gm/dl Globulin 3.3 (2.5-4.0) gm/dl Albumin/Globulin Ratio 1.2 (0.9-2) Urine Color Urine Appearance (Clear) Urine pH (4.5-7.5) Ur Specific [place] (1.000-1.030) Urine Protein (Negative) Urine Glucose (UA) (Negative) Urine Ketones (Negative) Urine Blood (Negative) Urine Nitrite (Negative) Urine Bilirubin (Negative) Urine Urobilinogen (Negative) Ur Leukocyte Esterase (Negative) Urine WBC (Auto) (0-5) /hpf Urine RBC (Auto) (0-4) /hpf U Hyaline Cast (Auto) (0-5) /lpf U Epithel Cells (Auto) (0-5) /lpf Urine Bacteria (Auto) (Negative) SARS-CoV-2, RNA, NAAT (NEGATIVE) 10/04/22 10/04/22 10/04/22 Range/Units 18:53 18:58 19:24 WBC (4.8-10.8) K/ul RBC (4.20-5.40) M/uL Hgb (12.0-16.0) g/dl POC Hgb 13.9 (12.0-16.0) g/dl Hct (37.0-47.0) % POC Hct 41 (37-47) % MCV (80.0-100.0) fL MCH (25.0-34.0) pg MCHC (32.0-36.0) g/dL RDW Std Deviation (36.4-46.3) fL RDW Coeff of Tim (11.5-14.5) % Plt Count (130-400) K/uL MPV (9.4-12.4) fL Immature Gran % (Auto) % Neut % (Auto) % Lymph % (Auto) % [place] % (Auto) % Eos % (Auto) % Baso % (Auto) % Neut # (Auto) (1.40-6.50) K/uL Lymph # (Auto) (1.2-3.4) K/uL [place] # (Auto) (0.11-0.59) K/uL Eos # (Auto) (0-0.50) K/uL Baso # (Auto) (0-0.2) K/uL Immature Gran # (Auto) (0.01-0.20) K/uL PT (9.0-12.0) Seconds INR (0.9-1.1) APTT (21.0-31.0) Seconds PTT Ratio POC Sodium 141 (135-144) mmol/L Sodium (136-145) mmol/L POC Potassium 4.2 (3.3-5.0) mmol/L Potassium (3.5-5.1) mmol/L POC Chloride 103 (101-112) mmol/L Chloride (98-107) mmol/L Carbon Dioxide (21-32) mmol/L POC Total CO2 26 (24-31) mmol/L Anion Gap (3-11) POC Anion Gap 18.0 (16-25) mmol/L POC BUN 30 H (7-18) mg/dl BUN (6-23) mg/dl Creatinine (0.6-1.2) mg/dl POC Creatinine 1.3 (0.6-1.3) mg/dl Est Cr Clr Drug Dosing ml/min Est GFR ( Amer) ml/min Est GFR (Non-Af Amer) ml/min BUN/Creatinine Ratio (10-20) Glucose (70-99(Fasting)) mg/dl POC Glucose 130 H (70-99) mg/dl POC Glucose (other) 136 H (70-99) mg/dl Lactate (0.4-2.0) mmol/L Calcium (8.6-10.3) mg/dl POC Ioniz Calcium Erin 1.22 (1.12-1.32) mmol/l Magnesium (1.7-2.4) mg/dl Total Bilirubin (0.2-1.0) mg/dl AST (13-39) U/L ALT (7-52) U/L Alkaline Phosphatase (34-104) U/L Troponin I High Sens (0-14) pg/ml Total Protein (6.0-8.3) gm/dl Albumin (3.4-5.0) gm/dl Globulin (2.5-4.0) gm/dl Albumin/Globulin Ratio (0.9-2) Urine Color Urine Appearance (Clear) Urine pH (4.5-7.5) Ur Specific [place] (1.000-1.030) Urine Protein (Negative) Urine Glucose (UA) (Negative) Urine Ketones (Negative) Urine Blood (Negative) Urine Nitrite (Negative) Urine Bilirubin (Negative) Urine Urobilinogen (Negative) Ur Leukocyte Esterase (Negative) Urine WBC (Auto) (0-5) /hpf Urine RBC (Auto) (0-4) /hpf U Hyaline Cast (Auto) (0-5) /lpf U Epithel Cells (Auto) (0-5) /lpf Urine Bacteria (Auto) (Negative) SARS-CoV-2, RNA, NAAT NEGATIVE (NEGATIVE) 10/04/22 10/04/22 Range/Units 19:40 20:10 WBC (4.8-10.8) K/ul RBC (4.20-5.40) M/uL Hgb (12.0-16.0) g/dl POC Hgb (12.0-16.0) g/dl Hct (37.0-47.0) % POC Hct (37-47) % MCV (80.0-100.0) fL MCH (25.0-34.0) pg MCHC (32.0-36.0) g/dL RDW Std Deviation (36.4-46.3) fL RDW Coeff of Tim (11.5-14.5) % Plt Count (130-400) K/uL MPV (9.4-12.4) fL Immature Gran % (Auto) % Neut % (Auto) % Lymph % (Auto) % [place] % (Auto) % Eos % (Auto) % Baso % (Auto) % Neut # (Auto) (1.40-6.50) K/uL Lymph # (Auto) (1.2-3.4) K/uL [place] # (Auto) (0.11-0.59) K/uL Eos # (Auto) (0-0.50) K/uL Baso # (Auto) (0-0.2) K/uL Immature Gran # (Auto) (0.01-0.20) K/uL PT (9.0-12.0) Seconds INR (0.9-1.1) APTT (21.0-31.0) Seconds PTT Ratio POC Sodium (135-144) mmol/L Sodium (136-145) mmol/L POC Potassium (3.3-5.0) mmol/L Potassium (3.5-5.1) mmol/L POC Chloride (101-112) mmol/L Chloride (98-107) mmol/L Carbon Dioxide (21-32) mmol/L POC Total CO2 (24-31) mmol/L Anion Gap (3-11) POC Anion Gap (16-25) mmol/L POC BUN (7-18) mg/dl BUN (6-23) mg/dl Creatinine (0.6-1.2) mg/dl POC Creatinine (0.6-1.3) mg/dl Est Cr Clr Drug Dosing ml/min Est GFR ( Amer) ml/min Est GFR (Non-Af Amer) ml/min BUN/Creatinine Ratio (10-20) Glucose (70-99(Fasting)) mg/dl POC Glucose (70-99) mg/dl POC Glucose (other) (70-99) mg/dl Lactate 1.8 (0.4-2.0) mmol/L Calcium (8.6-10.3) mg/dl POC Ioniz Calcium Erin (1.12-1.32) mmol/l Magnesium (1.7-2.4) mg/dl Total Bilirubin (0.2-1.0) mg/dl AST (13-39) U/L ALT (7-52) U/L Alkaline Phosphatase (34-104) U/L Troponin I High Sens (0-14) pg/ml Total Protein (6.0-8.3) gm/dl Albumin (3.4-5.0) gm/dl Globulin (2.5-4.0) gm/dl Albumin/Globulin Ratio (0.9-2) Urine Color Yellow Urine Appearance Clear (Clear) Urine pH 6.0 (4.5-7.5) Ur Specific [place] 1.035 H (1.000-1.030) Urine Protein Negative (Negative) Urine Glucose (UA) Negative (Negative) Urine Ketones Negative (Negative) Urine Blood Negative (Negative) Urine Nitrite Positive A (Negative) Urine Bilirubin Negative (Negative) Urine Urobilinogen Negative (Negative) Ur Leukocyte Esterase 1+ H (Negative) Urine WBC (Auto) >30 H (0-5) /hpf Urine RBC (Auto) 0-4 (0-4) /hpf U Hyaline Cast (Auto) 0 (0-5) /lpf U Epithel Cells (Auto) 0-5 (0-5) /lpf Urine Bacteria (Auto) 3+ H (Negative) SARS-CoV-2, RNA, NAAT (NEGATIVE) Imaging Data Attestation: I personally reviewed and interpreted this imaging study as follows: My Impression: Head CTthere is a meningioma but no mass effect or hemorrhage seen Radiologist's Impression: Head CT 10/04/22 18:59 CR Exam(s): CT HEAD Without Contrast EXAM: CT Head Without Intravenous Contrast CLINICAL HISTORY: Reason for exam: neuro deficit, acute stroke suspected. TECHNIQUE: Axial computed tomography images of the head/brain without intravenous contrast. CTDI is 47.5 mGy and DLP is 774.27 mGy-cm. Automated exposure control was utilized for the study. A dose lowering technique was utilized adhering to the principles of ALARA. COMPARISON: No relevant prior studies available. FINDINGS: Brain: 1.3 cm densely calcified lesion along the inner table of the right frontal calvarium consistent with meningioma. Mild age-appropriate cerebral volume loss. No hemorrhage. No significant white matter disease. Ventricles: Unremarkable. No ventriculomegaly. Bones/joints: Unremarkable. No acute fracture. Soft tissues: Unremarkable. Sinuses: Unremarkable as visualized. No acute sinusitis. Mastoid air cells: Unremarkable as visualized. No mastoid effusion. IMPRESSION: No acute findings in the head/brain. 1.3 cm right frontal lobe meningioma Communications: Call Doctor Stroke Electronically signed by: Augustin Fonseca MD 10/04/22 19:32 PM Head CTA 10/04/22 18:59 CR Exam(s): CTA HEAD With Contrast IV Amt: 121 ml optiray 320 EXAM: CT Angiography Head With Intravenous Contrast CLINICAL HISTORY: Reason for exam: neuro deficit, acute stroke suspected. TECHNIQUE: Axial computed tomographic angiography images of the head with intravenous contrast. CTDI is 18.68 mGy and DLP is 774.27 mGy-cm. Automated exposure control was utilized for the study. A dose lowering technique was utilized adhering to the principles of ALARA. MIP reconstructed images were created and reviewed. CONTRAST: Patient received 121 ml optiray 320 of IV contrast COMPARISON: No relevant prior studies available. FINDINGS: Right internal carotid artery: No acute findings. Intracranial segment is patent with no significant stenosis. No aneurysm. Right anterior cerebral artery: Unremarkable. No occlusion or significant stenosis. No aneurysm. Right middle cerebral artery: Unremarkable. No occlusion or significant stenosis. No aneurysm. Right posterior cerebral artery: Unremarkable. No occlusion or significant stenosis. No aneurysm. Right vertebral artery: Unremarkable as visualized. Left internal carotid artery: No acute findings. Intracranial segment is patent with no significant stenosis. No aneurysm. Left anterior cerebral artery: Unremarkable. No occlusion or significant stenosis. No aneurysm. Left middle cerebral artery: Unremarkable. No occlusion or significant stenosis. No aneurysm. Left posterior cerebral artery: Unremarkable. No occlusion or significant stenosis. No aneurysm. Left vertebral artery: Unremarkable as visualized. Basilar artery: Unremarkable. No occlusion or significant stenosis. No aneurysm. IMPRESSION: Normal head CTA. Communications: Call Doctor Stroke Electronically signed by: Augustin Fonseca MD 10/04/22 19:35 PM Neck CTA 10/04/22 18:59 CR Exam(s): CTA NECK With Contrast IV Amt: 121 ml optiray 320 EXAM: CT Angiography Neck With Intravenous Contrast CLINICAL HISTORY: Reason for exam: neuro deficit, acute stroke suspected. TECHNIQUE: Routine carotid CT angiography protocol was performed with intravenous contrast. NASCET criteria using the distal ICAs for comparison were used for evaluation of stenoses. CTDI is 11.8 mGy and DLP is 443.09 mGy-cm. Automated exposure control was utilized for the study. A dose lowering technique was utilized adhering to the principles of ALARA. MIP reconstructed images were created and reviewed. CONTRAST: Patient received 121 ml optiray 320 of IV contrast COMPARISON: None. FINDINGS: VASCULATURE: Right common carotid artery: Unremarkable. No occlusion or significant stenosis. No dissection. Right internal carotid artery: Unremarkable. Extracranial segment is patent with no occlusion or significant stenosis. No dissection. Right external carotid artery: Unremarkable. No occlusion. Right vertebral artery: Unremarkable. No occlusion or significant stenosis. No dissection. Left common carotid artery: Unremarkable. No occlusion or significant stenosis. No dissection. Left internal carotid artery: Unremarkable. Extracranial segment is patent with no occlusion or significant stenosis. No dissection. Left external carotid artery: Unremarkable. No occlusion. Left vertebral artery: Unremarkable. No occlusion or significant stenosis. No dissection. NECK: Bones/joints: Left vertebral artery is diminutive along this entire course but patent patient is a right dominant vertebral basilar system there is an 80% stenosis of the right vertebral artery at the C5 level likely secondary to facet hypertrophic changes. Soft tissues: Unremarkable. Lung apices: Clear. CAROTID STENOSIS REFERENCE USING NASCET CRITERIA: % ICA stenosis = (1 - narrowest ICA diameter/diameter of distal cervical ICA) x 100. Mild - <50% stenosis. Moderate - 50-69% stenosis. Severe - 70-94% stenosis. Near occlusion - 95-99% stenosis. Occluded - 100% stenosis. IMPRESSION: 80% stenosis involving the right vertebral artery at the C5 level likely secondary to facet hypertrophic changes Communications: Call Doctor Stroke Electronically signed by: Augustin Fonseca MD 10/04/22 19:38 PM ECG Data Attestation: I personally reviewed and interpreted this ECG as follows: Indication: + weakness Rate (beats per minute): 68 Rhythm: + normal sinus ECG Intervals/blocks: + Normal QRS, + Normal QT and + Normal ME ECG [place]: + Normal ECG ST segments: + Normal ST segments ECG Findings: no PACs or no PVCs Comparison ECG Date: from (06/18/22) Change: no significant change MDM Narrative This patient is a 81-year-old female who comes in complaining of strokelike symptoms. She woke up at 5 like this however somebody saw her at 1 and appa rently was doing okay so at this point the last known well is at 1 PM which was approximately 6 hours ago. She is on both Plavix and aspirin at present she complains that she feels weak diffusely both on the right and left she says she normally is feeling weak on the left and says it feels weaker she also says that the right is normally good and just feels weak. She may have a mild facial droop on the right but that is the only significant neurologic symptoms she has we did a blood sugar was 150 we did i-STAT labs her creatinine is 1.3. I have reviewed her record she has had multiple CAT scans with IV contrast and tells me she is okay and is not allergic despite being listed among multiple allergies in her chart. She did have 2 CTAs last year and does not appear to have been premedicated I did call and discussed with CAT scan and they could not find any evidence of premedication on their end. I did call a stroke alert. Her dry scan was normal. CT angio shows a right vertebral artery narrowing but no dissection. She has had this in the past it may be worse but they did not com pare the 2 scans. EKG does not show any ischemic changes or ectopy. The patient was evaluated by , the [facility] stroke neurologist and he does not feel the patient meets any tPA criteria he said he is does not think she is likely having a stroke. Apparently when her daughter arrived she said that she did not feel well yesterday and was having trouble walking so the symptoms were gone longer than initially thought she laid in bed all day he was worried about more of a metabolic issue. She is no fever or white count to suggest infection. She has nothing suggest electrolyte or metabolic abnormalities. Urinalysis is questionable and could represent a UTI. I do think she is to be adm itted/observed for further treatment and evaluation. I have consulted Dr. Tellez discussed the case with him and he will see her in the ER for these measures. COVID testing was negative Continuous cardiac monitoring: An order was placed in EMR for continuous cardiac monitoring: Upon my evaluation patient noted to be in normal sinus rhythm with a rate of 70 Impression & Plan Stroke-like symptoms, Weakness, History of CVA (cerebrovascular accident), Recurrent UTI, Anxiety, Lab test negative for COVID-19 virus Discharge Plan Visit Data Chief Complaint: Stroke/CVA Symptoms ED Provider: [place] Discharge Problem: Stroke-like symptoms, Weakness, History of CVA (cerebrovascular accident), Recurrent UTI, Anxiety, Lab test negative for COVID-19 virus Forms Stand Alone Forms: My [facility] [place] Prescriptions Prescriptions: No Action epinephrine 0.3 mg/0.3 mL auto-injector 0.3 mg IM DIRECTED PRN (Reason: Anaphylaxis) Qty: 1 0RF loperamide [Anti-Diarrheal (loperamide)] 2 mg tablet 2 mg PO Q4H PRN (Reason: Loose Stool) Rx Instructions: administer after each loose stool until symptoms controlled; do not exceed 8 mg per 24 hrs lactase [Lactaid] 3,000 unit tablet 9,000 unit PO DIRECTED PRN (Reason: BEFORE ANY LACTOSE PRODUCTS) Rx Instructions: administer with meals and/or snacks (DME) pen needle, diabetic [BD Ultra-Fine Short Pen Needle] 31 gauge x 5/16" needle See Rx Instructions .ROUTE .MEDSUPPLY Qty: 300 3RF Rx Instructions: Inject insulin three times daily clopidogrel [Plavix] 75 mg tablet 75 mg PO QAM Qty: 90 3RF escitalopram oxalate 20 mg tablet 20 mg PO HS Qty: 90 3RF aspirin 81 mg tablet,delayed release (DR/EC) 81 mg PO QAM Qty: 90 3RF (DME) Dexcom G6 Sensor Device See Rx Instructions .ROUTE .MEDSUPPLY Qty: 3 0RF Rx Instructions: use 3 times a day and as needed to check blood glucose (DME) Dexcom G6 Transmitter Device See Rx Instructions .ROUTE .MEDSUPPLY Qty: 1 0RF Rx Instructions: use 3 times a day and as needed to check blood glucose (DME) Dexcom G6 Box Icer Misc See Rx Instructions .ROUTE .MEDSUPPLY Qty: 1 0RF Rx Instructions: use 3 times a day and as needed to check blood glucose magnesium oxide 200 mg magnesium tablet 400 mg PO DAILY Qty: 60 5RF (DME) OneTouch Ultra Test Strip See Rx Instructions .Route Qty: 200 2RF Rx Instructions: Test 4 times a day insulin glargine [Basaglar KwikPen U-100 Insulin] 100 unit/mL (3 mL) insulin pen 14 unit SUBCUT QAM Qty: 15 1RF ipratropium bromide 21 mcg (0.03 %) spray,non-aerosol 2 spray intranasal DAILY Qty: 30 2RF Rx Instructions: administer into each nostril (DME) lancets Misc See Rx Instructions .ROUTE .MEDSUPPLY Qty: 100 Rx Instructions: As directed nitroglycerin 0.4 mg tablet, sublingual 0.4 mg sublingual DIRECTED PRN (Reason: Chest Pain) Qty: 30 0RF Rx Instructions: PLACE ONE TABLET UNDER THE TONGUE EVERY 5 MINUTES FOR UP TO 3 DOSES OVER 15 MINUTES IF NEEDED FOR CHEST PAIN albuterol sulfate [Ventolin HFA] 90 mcg/actuation HFA aerosol inhaler 2 puff INHALATION Q4H PRN (Reason: Wheezing) Qty: 8.5 0RF hydrocodone-acetaminophen 5-325 mg tablet 1 tab PO Q8H MDD 3 GRAMS APAP/24 HOURS PRN (Reason: pain) Qty: 20 0RF lidocaine 4 % adhesive patch,medicated 2 patch topical DAILY PRN (Reason: LOWER BACK PAIN) baclofen 10 mg tablet 10 mg PO BID PRN (Reason: muscle spasm) Qty: 60 5RF pantoprazole 40 mg tablet,delayed release (DR/EC) 40 mg PO BID17 metoprolol tartrate 50 mg tablet 50 mg PO HS montelukast [Singulair] 10 mg tablet 10 mg PO QDD Myrbetriq 25 mg tablet extended release 24 hr 25 mg PO HS PreserVision AREDS-2 250-90-40-1 mg capsule 1 tab PO QDD diphenhydramine HCl [Benadryl Allergy] 25 mg tablet 25 mg PO DAILY PRN (Reason: itching) melatonin 3 mg Tablet,Disintegrating 3 mg PO HS PRN (Reason: Insomnia) cyanocobalamin (vitamin B-12) [Vitamin B-12] 1,000 mcg tablet 1,000 mcg PO QDL oxybutynin chloride 5 mg tablet 5 mg PO TID PRN (Reason: Bladder Spasms) hydrocortisone 1 % cream 1 applic topical TID PRN (Reason: Rash) Referrals Referrals: Darwin Lugo III, CRNP [Primary Care Provider] -
[2022-10-04 19:11] LABS: iSTAT Creatinine 1.3 mg/dl (0.6-1.3); iSTAT Hemoglobin 13.9 g/dl (12.0-16.0); iSTAT Ionized Calcium 1.22 mmol/l (1.12-1.32); iSTAT Potassium 4.2 mmol/L (3.3-5.0)
[2022-10-04] MEDS ORDERED: OPTIRAY 320 125ml IV ONE (19:11)
[2022-10-04 19:23] LABS: Basophils # (auto) 0.04 K/uL (0-0.2); Basophils % (auto) 0.9 %; Eosinophils # (auto) 0.11 K/uL (0-0.50); Eosinophils % (auto) 2.5 %; Hematocrit (blood only) 40.5 % (37.0-47.0); Hemoglobin 12.6 g/dl (12.0-16.0); Immature Granulocytes # (auto) 0.02 K/uL (0.01-0.20); Immature Granulocytes % (auto) 0.4 %; Lymphocytes # (auto) 1.03 K/uL (1.2-3.4); Mean Corpuscular Hemoglobin 24.3 pg (25.0-34.0); Mean Corpuscular Hgb Conc 31.1 g/dL (32.0-36.0); Mean Platelet Volume 9.3 fL (9.4-12.4); Monocytes # (auto) 0.38 K/uL (0.11-0.59); Monocytes % (auto) 8.5 %; Neutrophils % (auto) 64.7 %; Platelet Count 115 K/uL (130-400); RDW Coefficient of Variation 14.6 % (11.5-14.5); RDW Standard Deviation 40.8 fL (36.4-46.3); Red Blood Count 5.19 M/uL (4.20-5.40); White Blood Count 4.48 K/ul (4.8-10.8)
--- NOTE | 2022-10-04 19:33 | CT Scan Report ---
Exam(s): CT HEAD Without Contrast EXAM: CT Head Without Intravenous Contrast CLINICAL HISTORY: Reason for exam: neuro deficit, acute stroke suspected. TECHNIQUE: Axial computed tomography images of the head/brain without intravenous contrast. CTDI is 47.5 mGy and DLP is 774.27 mGy-cm. Automated exposure control was utilized for the study. A dose lowering technique was utilized adhering to the principles of ALARA. COMPARISON: No relevant prior studies available. FINDINGS: Brain: 1.3 cm densely calcified lesion along the inner table of the right frontal calvarium consistent with meningioma. Mild age-appropriate cerebral volume loss. No hemorrhage. No significant white matter disease. Ventricles: Unremarkable. No ventriculomegaly. Bones/joints: Unremarkable. No acute fracture. Soft tissues: Unremarkable. Sinuses: Unremarkable as visualized. No acute sinusitis. Mastoid air cells: Unremarkable as visualized. No mastoid effusion. IMPRESSION: No acute findings in the head/brain. 1.3 cm right frontal lobe meningioma Communications: Call Doctor Stroke Electronically signed by: Augustin Fonseca MD 10/04/22 19:32 PM
--- NOTE | 2022-10-04 19:36 | CT Scan Report ---
Exam(s): CTA HEAD With Contrast IV Amt: 121 ml optiray 320 EXAM: CT Angiography Head With Intravenous Contrast CLINICAL HISTORY: Reason for exam: neuro deficit, acute stroke suspected. TECHNIQUE: Axial computed tomographic angiography images of the head with intravenous contrast. CTDI is 18.68 mGy and DLP is 774.27 mGy-cm. Automated exposure control was utilized for the study. A dose lowering technique was utilized adhering to the principles of ALARA. MIP reconstructed images were created and reviewed. CONTRAST: Patient received 121 ml optiray 320 of IV contrast COMPARISON: No relevant prior studies available. FINDINGS: Right internal carotid artery: No acute findings. Intracranial segment is patent with no significant stenosis. No aneurysm. Right anterior cerebral artery: Unremarkable. No occlusion or significant stenosis. No aneurysm. Right middle cerebral artery: Unremarkable. No occlusion or significant stenosis. No aneurysm. Right posterior cerebral artery: Unremarkable. No occlusion or significant stenosis. No aneurysm. Right vertebral artery: Unremarkable as visualized. Left internal carotid artery: No acute findings. Intracranial segment is patent with no significant stenosis. No aneurysm. Left anterior cerebral artery: Unremarkable. No occlusion or significant stenosis. No aneurysm. Left middle cerebral artery: Unremarkable. No occlusion or significant stenosis. No aneurysm. Left posterior cerebral artery: Unremarkable. No occlusion or significant stenosis. No aneurysm. Left vertebral artery: Unremarkable as visualized. Basilar artery: Unremarkable. No occlusion or significant stenosis. No aneurysm. IMPRESSION: Normal head CTA. Communications: Call Doctor Stroke Electronically signed by: Augustin Fonseca MD 10/04/22 19:35 PM
--- NOTE | 2022-10-04 19:39 | CT Scan Report ---
Exam(s): CTA NECK With Contrast IV Amt: 121 ml optiray 320 EXAM: CT Angiography Neck With Intravenous Contrast CLINICAL HISTORY: Reason for exam: neuro deficit, acute stroke suspected. TECHNIQUE: Routine carotid CT angiography protocol was performed with intravenous contrast. NASCET criteria using the distal ICAs for comparison were used for evaluation of stenoses. CTDI is 11.8 mGy and DLP is 443.09 mGy-cm. Automated exposure control was utilized for the study. A dose lowering technique was utilized adhering to the principles of ALARA. MIP reconstructed images were created and reviewed. CONTRAST: Patient received 121 ml optiray 320 of IV contrast COMPARISON: None. FINDINGS: VASCULATURE: Right common carotid artery: Unremarkable. No occlusion or significant stenosis. No dissection. Right internal carotid artery: Unremarkable. Extracranial segment is patent with no occlusion or significant stenosis. No dissection. Right external carotid artery: Unremarkable. No occlusion. Right vertebral artery: Unremarkable. No occlusion or significant stenosis. No dissection. Left common carotid artery: Unremarkable. No occlusion or significant stenosis. No dissection. Left internal carotid artery: Unremarkable. Extracranial segment is patent with no occlusion or significant stenosis. No dissection. Left external carotid artery: Unremarkable. No occlusion. Left vertebral artery: Unremarkable. No occlusion or significant stenosis. No dissection. NECK: Bones/joints: Left vertebral artery is diminutive along this entire course but patent patient is a right dominant vertebral basilar system there is an 80% stenosis of the right vertebral artery at the C5 level likely secondary to facet hypertrophic changes. Soft tissues: Unremarkable. Lung apices: Clear. CAROTID STENOSIS REFERENCE USING NASCET CRITERIA: % ICA stenosis = (1 - narrowest ICA diameter/diameter of distal cervical ICA) x 100. Mild - <50% stenosis. Moderate - 50-69% stenosis. Severe - 70-94% stenosis. Near occlusion - 95-99% stenosis. Occluded - 100% stenosis. IMPRESSION: 80% stenosis involving the right vertebral artery at the C5 level likely secondary to facet hypertrophic changes Communications: Call Doctor Stroke Electronically signed by: Augustin Fonseca MD 10/04/22 19:38 PM
[2022-10-04 19:41] LABS: INR 1.1 (0.9-1.1); Partial Thromboplastin Ratio 0.8; Partial Thromboplastin Time 23.7 Seconds (21.0-31.0); Prothrombin Time 12.2 Seconds (9.0-12.0)
[2022-10-04 19:47] LABS: Albumin Globulin Ratio 1.2 (0.9-2); Albumin Level 4.1 gm/dl (3.4-5.0); BUN Creatinine Ratio 24.2 (10-20); Bilirubin,Total 0.9 mg/dl (0.2-1.0); Calcium 9.4 mg/dl (8.6-10.3); Creatinine Clr Calc Pharmacy 35.7 ml/min; Est GFR (African American) 43.7 ml/min; Est GFR (Non-African American) 37.7 ml/min; Globulin 3.3 gm/dl (2.5-4.0); Magnesium 1.8 mg/dl (1.7-2.4); Potassium 4.2 mmol/L (3.5-5.1); Total Protein 7.4 gm/dl (6.0-8.3)
[2022-10-04 19:54] LABS: Troponin I High Sensitivity 11.5 pg/ml (0-14)
[2022-10-04 20:27] LABS: Appearance Urine Clear (Clear); Bacteria Urine Automated 3+ (Negative); Bilirubin Urine Negative (Negative); Blood Urine Negative (Negative); Cast Urine Automated 0 /lpf (0-5); Color Urine Yellow; Epithelial Cell Urine Auto 0-5 /lpf (0-5); Glucose Urine UA Negative (Negative); Ketones Urine Negative (Negative); Leukocyte Esterase Urine 1+ (Negative); Nitrite Urine Positive (Negative); Protein Urine Negative (Negative); RBC Urine Automated 0-4 /hpf (0-4); Specific Gravity Urine 1.035 (1.000-1.030); Urobilinogen Urine Negative (Negative); WBC Urine Automated >30 /hpf (0-5)
--- NOTE | 2022-10-04 20:51 | History & Physical Report ---
Date of Service October 04, 2022 Assessment & Plan (1) Urinary urgency: (2) History of stroke: (3) Hypertension: (4) T2DM (type 2 diabetes mellitus): Plan Liv Carvalho is a 81 year-old female with a past medical history of HTN, HLD, prior CVA (2018), T2DM, CKD3, CAMRON, OHS, asthma, GERD, MDD, and DEEPAK. She presented to the ED due to stroke-like symptoms. Stroke-Like Symptoms -CTA Head/Neck: no acute findings. Significant stenosis of R vertebral artery as noted previously. -Patient notes overall increased weakness but even more so on left side -History of left pontine stroke in January 2019 with residual left side deficits -Very mild left sided facial droop, no abnormal speech although daughter states her speech is slower than typical -Ordered MRI brain wo contrast, pending -If acute findings on MRI, will consult neurology -PT/OT ordered -Q2h neuro checks -Continue home Plavix, aspirin. 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 -If MRI does not identify abnormality, could consider than symptoms are encephalopathy/sepsis due to UTI Dysuria -UA suspicious of infection, endorses dysuria and dark urine -Recent cultures from UTIs grew pansensitive e. coli and klebsiella respectively -No elevated WBC. Lactate WNL. Will repeat a.m. CBC -Blood cultures collected, will follow -Per recent emergency medical tech evaluation (note uploaded in chart), patient ok to receive cephalosporins -Ceftriaxone 2g ordered -Has history of recurrent UTIs, chronic radiation cystitis -Continue home mirabegron, Oxybutynin -Should follow up with urology after discharge Type 2 Diabetes Mellitus -A1C ordered -Sliding scale insulin ordered -Has history of peripheral neuropathy Hypertension -Per chart review patient appears to only be on metoprolol tartrate, no additional antihypertensives -BP 160s/80s currently Anxiety/Depression -Continue home escitalopram PACs -Continue home metoprolol tartrate Asthma -Continue montelukast, home inhalers Obstructive Sleep Apnea -Recommend CPAP use nightly GERD -Continue PPI FENa: NPO while completing stroke work up VTE Prophylaxis: SCDs, reevaluate after stroke work up complete Code Status: DNR/DNI Dispo: Med-Tele History of Present Illness Primary Care Provider: Darwin Lugo III, HARVINDER Liv Carvalho is a 81 year-old female with a past medical history of HTN, HLD, prior CVA (2019), T2DM, CKD3, CAMRON, OHS, asthma, GERD, MDD, and DEEPAK. She presented to the ED due to stroke-like symptoms. She notes that she went to bed last night and did not awake until 5pm today, when she got out of bed she felt very weak. She recalls that she typically has left sided weakness but today is feeling more weak on both sides. She also reports having some double vision. She states that every time she has had a TIA in the past she had double vision. Her daughter is at bedside and states that she feels that he speech is "off" as it is slower and some words are slurred. Liv notes that she has recently lost about 40 pounds and had been ambulating much more easily, however in the past few days she has gotten more weak. Liv also notes that she has struggled to drink enough fluids, has had darker urine and also recalls burning with urination. She denies any chest pain, shortness of breath, fever, body aches or chills. Has had an occasional headache and endorses double vision. Allergies Allergy/AdvReac Type Severity Reaction Status Date / Time cantaloupe Allergy Severe THROAT Verified 10/04/22 20:36 CLOSES celecoxib [From Celebrex] Allergy Severe CAUSED Verified 10/04/22 20:36 STROKE melon Allergy Severe THROAT Verified 10/04/22 20:36 CLOSES meperidine Allergy Severe almost Verified 10/04/22 20:36 "closed throat" midodrine Allergy Severe "almost Verified 10/04/22 20:36 closed throat" sulfamethoxazole Allergy Severe THROAT Verified 10/04/22 20:36 CLOSED trimethoprim Allergy Severe THROAT Verified 10/04/22 20:36 CLOSED watermelon Allergy Severe THROAT Verified 10/04/22 20:36 CLOSES diphenoxylate Allergy Intermediate Unknown Verified 10/04/22 20:36 metronidazole [From Flagyl] Allergy Intermediate Hives Verified 10/04/22 20:36 DENILSON Inhibitors Allergy Unknown unknown to Verified 10/04/22 20:36 pt atropine Allergy Unknown Unknown Verified 10/04/22 20:36 carvedilol Allergy Unknown Unknown Verified 10/04/22 20:36 clonazepam [From Klonopin] Allergy Unknown Unknown Verified 10/04/22 20:36 doxycycline Allergy Unknown Unknown Verified 10/04/22 20:36 furosemide [From Lasix] Allergy Unknown Unknown Verified 10/04/22 20:36 Histamine H2 Inhibitors Allergy Unknown unknown to Verified 10/04/22 20:36 pt Iodinated Contrast Media Allergy Unknown JULY 2017 Verified 10/04/22 20:36 [facility] -- TOLERATED WITH SLOW INFUSION PER PATIENT nitrofurantoin Allergy Unknown Unknown Verified 10/04/22 20:36 phenazopyridine Allergy Unknown Unknown Verified 10/04/22 20:36 ranitidine Allergy Unknown Unknown Verified 10/04/22 20:36 repaglinide Allergy Unknown Unknown Verified 10/04/22 20:36 rosiglitazone Allergy Unknown Unknown Verified 10/04/22 20:36 tolterodine [From Detrol] Allergy Unknown Unknown Verified 10/04/22 20:36 ciprofloxacin [From Cipro] AdvReac Severe throat Verified 10/04/22 20:36 swelling citalopram [From Celexa] AdvReac Severe SEE COMMENT Verified 10/04/22 20:36 diazepam AdvReac Severe SEDATION Verified 10/04/22 20:36 LASTING TOO LONG prednisone AdvReac Severe BSG Verified 10/04/22 20:36 ELEVATED TO THE 500'S glyburide AdvReac Intermediate SEVERE Verified 10/04/22 20:36 ABDOMINAL PAIN meloxicam [From Mobic] AdvReac Intermediate SICK TO Verified 10/04/22 20:36 STOMACH metformin AdvReac Intermediate SEVERE Verified 10/04/22 20:36 ABDOMINAL PAIN oxycodone AdvReac Intermediate SEVERE Verified 10/04/22 20:36 WITHDRAWAL SYMPTOMS WHEN TRYING TO STOP TAKING paroxetine AdvReac Intermediate DID NOT Verified 10/04/22 20:36 HELP tramadol AdvReac Intermediate Vomiting Verified 10/04/22 20:36 albuterol AdvReac Unknown UNK Verified 10/04/22 20:36 carbamazepine AdvReac Unknown Unknown Verified 10/04/22 20:36 ibuprofen AdvReac Unknown Unknown Verified 10/04/22 20:36 lisinopril AdvReac Unknown UNK Verified 10/04/22 20:36 mirtazapine AdvReac Unknown Unknown Verified 10/04/22 20:36 olanzapine AdvReac Unknown Unknown Verified 10/04/22 20:36 rofecoxib AdvReac Unknown Unknown Verified 10/04/22 20:36 valproic acid AdvReac Unknown Unknown Verified 10/04/22 20:36 Home Medications Medication Instructions Recorded Confirmed Type lancets #100 ea 03/03/20 09/12/22 History epinephrine 0.3 mg/0.3 mL 0.3 mg (0.3 mL) IM DIRECTED PRN 05/03/21 10/04/22 Rx injection, auto-injector Anaphylaxis #1 ea diphenhydramine HCl 25 mg tablet 25 mg PO DAILY PRN itching 05/19/21 10/04/22 History (Benadryl Allergy) melatonin 3 mg disintegrating 3 mg PO HS PRN Insomnia 07/22/21 10/04/22 History tablet cyanocobalamin (vitamin B-12) 1,000 mcg PO QDL 02/16/22 10/04/22 History 1,000 mcg tablet (Vitamin B-12) lactase 3,000 unit tablet (Lactaid) 9,000 unit PO DIRECTED PRN 03/03/22 10/04/22 History BEFORE ANY LACTOSE PRODUCTS loperamide 2 mg tablet 2 mg PO Q4H PRN Loose Stool 03/03/22 10/04/22 History (Anti-Diarrheal (loperamide)) lidocaine 4 % topical patch 2 patch topical DAILY PRN LOWER 03/06/22 10/04/22 History BACK PAIN hydrocortisone 1 % topical cream 1 applic topical TID PRN Rash 03/31/22 10/04/22 History oxybutynin chloride 5 mg tablet 5 mg PO TID PRN Bladder Spasms 03/31/22 10/04/22 History pen needle, diabetic 31 gauge x #300 ea 04/19/22 09/12/22 Rx 5/16" (BD Ultra-Fine Short Pen Needle) clopidogrel 75 mg tablet (Plavix) 75 mg PO QAM #90 tabs 04/27/22 10/04/22 Rx escitalopram oxalate 20 mg tablet 20 mg PO HS #90 tabs 04/27/22 10/04/22 Rx albuterol sulfate 90 mcg/actuation 2 puff inhalation Q4H PRN Wheezing 05/01/22 10/04/22 Rx aerosol inhaler (Ventolin HFA) #8.5 grams nitroglycerin 0.4 mg sublingual 0.4 mg sublingual DIRECTED PRN 05/01/22 10/04/22 Rx tablet Chest Pain #30 tabs aspirin 81 mg tablet,delayed 81 mg PO QAM #90 tabs 05/09/22 10/04/22 Rx release blood-glucose sensor (Dexcom G6 #3 ea 05/23/22 09/12/22 Rx Sensor device) blood-glucose transmitter (Dexcom #1 ea 05/23/22 09/12/22 Rx G6 Transmitter device) blood-glucose meter,continuous #1 ea 05/24/22 09/12/22 Rx (Dexcom G6 X Ray Developing Machine Operator) baclofen 10 mg tablet 10 mg PO BID PRN muscle spasm #60 07/14/22 10/04/22 Rx tabs magnesium oxide 400 mg PO DAILY #60 tabs 07/27/22 10/04/22 Rx blood sugar diagnostic (OneTouch #200 ea 07/28/22 09/12/22 Rx Ultra Test strips) hydrocodone 5 mg-acetaminophen 325 1 tab PO Q8H PRN pain #20 tabs 08/11/22 10/04/22 Rx mg tablet insulin glargine 100 unit/mL (3 14 unit (0.14 mL) subcut QAM #15 mL 09/27/22 10/04/22 Rx mL) subcutaneous pen (Basaglar KwikPen U-100 Insulin) ipratropium bromide 21 mcg (0.03 2 spray intranasal DAILY #30 mL 10/02/22 10/04/22 Rx %) nasal spray metoprolol tartrate 50 mg tablet 50 mg PO HS 10/04/22 10/04/22 History mirabegron 25 mg tablet,extended 25 mg PO HS 10/04/22 10/04/22 History release 24 hr (Myrbetriq) montelukast 10 mg tablet 10 mg PO QDD 10/04/22 10/04/22 History (Singulair) pantoprazole 40 mg tablet,delayed 40 mg PO BID17 10/04/22 10/04/22 History release vit C 250 mg-vit E 90 mg-zinc 40 1 tab PO QDD 10/04/22 10/04/22 History mg-copper 1 [id number] capsule (PreserVision AREDS-2) cefdinir 300 mg capsule 300 mg PO BID #5 caps 10/06/22 Rx Past Med/Surg History Medical History Acute hypercapnic respiratory failure 03/2019 [facility] DEB (acute kidney injury) Anxiety and depression Asthma Per pulmonology 10/10/19, likely NOT asthma but chronic aspiration. Flovert and Spiriva discontinued, pt to use albuterol PRN Breast cancer UNSURE WHICH SIDE WAS CANCER. Chronic back pain Chronic kidney disease, stage 3a Chronic neck pain Chronic pulmonary aspiration 2/2 h/o CVA, CAMRON. Diabetic peripheral neuropathy associated with type 2 diabetes mellitus Dyslipidemia Encephalopathy Fusion of spine GERD (gastroesophageal reflux disease) History of benign brain tumor History of dysphagia ESOPHAGEAL DILATION IN PAST History of esophageal dilatation History of spinal stenosis History of stroke History of uterine cancer Endometrial biopsy revealed endometrioid adenocarcinoma. Status post total abdominal hysterectomy and bilateral salpingo-oophorectomy. Status post com pletion of radiation therapy with external beam radiation as well as 2 HDR treatments completed 08/15/2013 Hypertension Left pontine stroke 01/2019, on Plavix, [place] [facility] [place]. Left pontine stroke Leukopenia Lymphedema of right arm CHRONIC, 2/2 MASTECTOMY Meningioma R temporal lobe, neurology monitoring. Microalbuminuria due to type 2 diabetes mellitus Microcytic anemia Morbid obesity Neuropathy Numb feet, painful radiculopathy in hands from cervical radiculopathy Obesity hypoventilation syndrome Osteoarthritis PAC (premature atrial contraction) PVC (premature ventricular contraction) Sensorineural hearing loss (SNHL) of both ears Severe obstructive sleep apnea CPAP, pt reports compliance T2DM (type 2 diabetes mellitus) Uterine cancer S/P RICHARD BSO WITH RADIATION Weakness Surgical History Difficult airway for intubation History of cardiac catheterization NO STENTS History of cataract surgery BILATERAL History of cholecystectomy History of colonoscopy History of esophagogastroduodenoscopy (EGD) History of knee surgery ARTHROSCOPY LEFT KNEE History of mastectomy BILATERAL History of total abdominal hysterectomy BSO S/P hysterectomy Family History Mother Diabetes Myocardial infarction Hypertension Family history of diabetes mellitus Brother Family history of diabetes mellitus Sister Osteoporosis Arthritis Denies family history of Ovarian cancer Prostate cancer Breast cancer Colorectal cancer Social History Smoking Status: Former smoker Tobacco Type: Cigarettes Age Started Using Tobacco: 15; Age Quit Using Tobacco: 30; packs per day: 1; Second Hand Exposure: No; Do You Dip or Chew Tobacco: No; Hx Alcohol Use: No Hx Substance Use: No Preferred Language: Georgian Communication Ability: Effective Communication Ability Comment: per [facility] pt signs own consents Visual Impairment: Limited Hearing Ability: Hard of Hearing Director Treasurer Required: No Beliefs That Will Affect Care: None marital status: / Current Living Situation: Personal Care Facility Current Living Situation Comment: [facility] current occupational status: retired 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 ENMT: External ears and nose normal. Moist mucous membranes. Dentition absent. Respiratory: normal respiratory effort, lungs clear to auscultation Cardiovascular: Rate/Rhythm: regular rate and regular rhythm +1 edema of bilateral lower extremities Gastrointestinal (Abdomen): Abdomen soft, nontender. No masses palpated. Neurologic: moves all extremities and awake Cranial Nerves: normal facial strength, tongue midline, able to rotate head bilaterally, able to elevate shoulders bilaterally and no nystagmus Very mild facial droop. Right eye with exotropia. +4/5 strength for upper and lower extremities bilaterally. Psychiatric: Orientation: alert, oriented to person, oriented to place, oriented to time and cooperative Results & Data Results & Data Vital Signs (Past 12 Hours) Vital Signs Temp Pulse Pulse Resp BP BP Pulse Ox 10/04/22 20:35 67 10/04/22 20:12 62 22 178/72 H 94 10/04/22 19:26 171/70 H 10/04/22 19:23 66 22 216/91 H 99 10/04/22 18:50 36.9 C 58 L 18 159/82 H 94 O2 Del Method 10/04/22 20:35 10/04/22 20:12 Room Air 10/04/22 19:26 10/04/22 19:23 Room Air 10/04/22 18:50 Room Air Diagnostic Findings Head CT 10/04/22 18:59 CR Exam(s): CT HEAD Without Contrast EXAM: CT Head Without Intravenous Contrast CLINICAL HISTORY: Reason for exam: neuro deficit, acute stroke suspected. TECHNIQUE: Axial computed tomography images of the head/brain without intravenous contrast. CTDI is 47.5 mGy and DLP is 774.27 mGy-cm. Automated exposure control was utilized for the study. A dose lowering technique was utilized adhering to the principles of ALARA. COMPARISON: No relevant prior studies available. FINDINGS: Brain: 1.3 cm densely calcified lesion along the inner table of the right frontal calvarium consistent with meningioma. Mild age-appropriate cerebral volume loss. No hemorrhage. No significant white matter disease. Ventricles: Unremarkable. No ventriculomegaly. Bones/joints: Unremarkable. No acute fracture. Soft tissues: Unremarkable. Sinuses: Unremarkable as visualized. No acute sinusitis. Mastoid air cells: Unremarkable as visualized. No mastoid effusion. IMPRESSION: No acute findings in the head/brain. 1.3 cm right frontal lobe meningioma Communications: Call Doctor Stroke Electronically signed by: Augustin Fonseca MD 10/04/22 19:32 PM Head CTA 10/04/22 18:59 CR Exam(s): CTA HEAD With Contrast IV Amt: 121 ml optiray 320 EXAM: CT Angiography Head With Intravenous Contrast CLINICAL HISTORY: Reason for exam: neuro deficit, acute stroke suspected. TECHNIQUE: Axial computed tomographic angiography images of the head with intravenous contrast. CTDI is 18.68 mGy and DLP is 774.27 mGy-cm. Automated exposure control was utilized for the study. A dose lowering technique was utilized adhering to the principles of ALARA. MIP reconstructed images were created and reviewed. CONTRAST: Patient received 121 ml optiray 320 of IV contrast COMPARISON: No relevant prior studies available. FINDINGS: Right internal carotid artery: No acute findings. Intracranial segment is patent with no significant stenosis. No aneurysm. Right anterior cerebral artery: Unremarkable. No occlusion or significant stenosis. No aneurysm. Right middle cerebral artery: Unremarkable. No occlusion or significant stenosis. No aneurysm. Right posterior cerebral artery: Unremarkable. No occlusion or significant stenosis. No aneurysm. Right vertebral artery: Unremarkable as visualized. Left internal carotid artery: No acute findings. Intracranial segment is patent with no significant stenosis. No aneurysm. Left anterior cerebral artery: Unremarkable. No occlusion or significant stenosis. No aneurysm. Left middle cerebral artery: Unremarkable. No occlusion or significant stenosis. No aneurysm. Left posterior cerebral artery: Unremarkable. No occlusion or significant stenosis. No aneurysm. Left vertebral artery: Unremarkable as visualized. Basilar artery: Unremarkable. No occlusion or significant stenosis. No aneurysm. IMPRESSION: Normal head CTA. Communications: Call Doctor Stroke Electronically signed by: Augustin Fonseca MD 10/04/22 19:35 PM Neck CTA 10/04/22 18:59 CR Exam(s): CTA NECK With Contrast IV Amt: 121 ml optiray 320 EXAM: CT Angiography Neck With Intravenous Contrast CLINICAL HISTORY: Reason for exam: neuro deficit, acute stroke suspected. TECHNIQUE: Routine carotid CT angiography protocol was performed with intravenous contrast. NASCET criteria using the distal ICAs for comparison were used for evaluation of stenoses. CTDI is 11.8 mGy and DLP is 443.09 mGy-cm. Automated exposure control was utilized for the study. A dose lowering technique was utilized adhering to the principles of ALARA. MIP reconstructed images were created and reviewed. CONTRAST: Patient received 121 ml optiray 320 of IV contrast COMPARISON: None. FINDINGS: VASCULATURE: Right common carotid artery: Unremarkable. No occlusion or significant stenosis. No dissection. Right internal carotid artery: Unremarkable. Extracranial segment is patent with no occlusion or significant stenosis. No dissection. Right external carotid artery: Unremarkable. No occlusion. Right vertebral artery: Unremarkable. No occlusion or significant stenosis. No dissection. Left common carotid artery: Unremarkable. No occlusion or significant stenosis. No dissection. Left internal carotid artery: Unremarkable. Extracranial segment is patent with no occlusion or significant stenosis. No dissection. Left external carotid artery: Unremarkable. No occlusion. Left vertebral artery: Unremarkable. No occlusion or significant stenosis. No dissection. NECK: Bones/joints: Left vertebral artery is diminutive along this entire course but patent patient is a right dominant vertebral basilar system there is an 80% stenosis of the right vertebral artery at the C5 level likely secondary to facet hypertrophic changes. Soft tissues: Unremarkable. Lung apices: Clear. CAROTID STENOSIS REFERENCE USING NASCET CRITERIA: % ICA stenosis = (1 - narrowest ICA diameter/diameter of distal cervical ICA) x 100. Mild - <50% stenosis. Moderate - 50-69% stenosis. Severe - 70-94% stenosis. Near occlusion - 95-99% stenosis. Occluded - 100% stenosis. IMPRESSION: 80% stenosis involving the right vertebral artery at the C5 level likely secondary to facet hypertrophic changes Communications: Call Doctor Stroke Electronically signed by: Augustin Fonseca MD 10/04/22 19:38 PM Supervising Physician Co-Signing Physician Notes Attending addendum: I have physically seen this patient, have supervised the medical residents activities, and agree with the H&P unless as otherwise noted. Assessment and Plan: Strokelike symptoms- Patient reports that left side is more weak than usual Had a transient left-sided facial droop, resolved at the time of this examination CT head shows 1.3 cm right frontal lobe meningioma CTA head shows right vertebral artery stenosis of 80%, similar to before MRI brain will be ordered for follow-up Patient does have urinary tract infection, and symptoms may be due to enc ephalopathy amplifying underlying neurologic issue Urinary tract infection/history of recurrent UTIs/chronic radiation cystitis- Follow urine culture and sensitivity Ceftriaxone 2 g IV daily continue mirabegron and oxybutynin diabetes mellitus- Placed on Accu-Cheks with SSI Check hemoglobin A1c PACs/hypertension- Metoprolol tartrate remaining orders and notations as noted Resident Activity Tracking Resident Involvement: Resident Care Provided Care Provided: Adult Hospital Medicine (3) Hypertension Hypertension type: unspecified Qualified Code(s): I10 - Essential (primary) hypertension
[2022-10-04] MEDS ORDERED: cefTRIAXone SODIUM 1,000 MG in DEXTROSE 5% AD-VAN 50 ML IV STA (22:26)
[2022-10-04] MEDS ORDERED: cefTRIAXone SODIUM 2,000 MG in DEXTROSE 5% 50 ML IV STA (22:34)
[2022-10-04] MEDS ORDERED: MELATONIN 3 MG TAB PO PRN (23:53)
[2022-10-04] MEDS ORDERED: GLUCOSE 40% GEL 15 GM TUBE PO PRN (23:53)
[2022-10-04] MEDS ORDERED: GLUCAGON FOR INJ 1 MG VIAL SQ PRN (23:53)
[2022-10-04] MEDS ORDERED: oxyBUTYnin chloride 5 MG TAB PO PRN (23:53)
[2022-10-04] MEDS ORDERED: ALBUTEROL HFA 8 GM INHALER INH PRN (23:53)
[2022-10-04] MEDS ORDERED: POLYETHYLENE (MIRALAX) 17 GM PACK PO PRN (23:53)
[2022-10-04] MEDS ORDERED: PHARMACIST DISCHARGE MED REC CONSULT PRN (23:53)
[2022-10-04] MEDS ORDERED: DEXTROSE 50% 50 ML SYRINGE IV PRN (23:53)
[2022-10-04] MEDS ORDERED: NITROGLYCERIN SL 0.4 MG/TAB TAB SL PRN (23:53)
[2022-10-04] MEDS ORDERED: GLUCOSE 10 TAB/TUBE PO PRN (23:53)
[2022-10-04] MEDS ORDERED: CARBOHYDRATES FOR HYPOGLYCEMIA PO PRN (23:53)
--- NOTE | 2022-10-05 00:26 | Magnetic Resonance Report ---
Exam(s): MRI HEAD Without Contrast EXAM: MR Head Without Intravenous Contrast CLINICAL HISTORY: Reason for exam: stroke like symptoms. TECHNIQUE: Magnetic resonance images of the head/brain without intravenous contrast in multiple planes. COMPARISON: Comparison is made to prior head CT from October 04, 2022. FINDINGS: Brain: Moderate nonspecific white matter changes. There is a dilated perivascular space or lacunar infarct of the left carey. There is a dilated perivascular space or remote lacunar infarct of the right thalamus. The flow voids at the base of the brain are intact. No mass. No hemorrhage. No acute infarct. Empty sella with a large diaphragmatic sellae. Small bilateral choroid fissure cyst. Ventricles: Mild ventriculomegaly. Bones/joints: Unremarkable. Sinuses: Unremarkable as visualized. No acute sinusitis. Mastoid air cells: Unremarkable as visualized. No mastoid effusion. Orbits: Bilateral lens replacements. 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 IMPRESSION: No evidence of acute intracranial pathology. Moderate nonspecific white matter changes. Dilated perivascular spaces are remote lacunar infarcts of the left carey and right thalamus. Electronically signed by: Jeny Estrada MD 10/05/22 00:26 AM
[2022-10-05] MEDS ORDERED: LOPERAMIDE HCL 2 MG CAP PO PRN (00:46)
[2022-10-05] MEDS: INSULIN ASPART PER UNIT CHARGE SC SCH ×4 (05:52→21:20)
[2022-10-05 08:31] LABS: Basophils # (auto) 0.02 K/uL (0-0.2); Basophils % (auto) 0.4 %; Eosinophils # (auto) 0.12 K/uL (0-0.50); Eosinophils % (auto) 2.4 %; Hematocrit (blood only) 37.6 % (37.0-47.0); Immature Granulocytes # (auto) 0.01 K/uL (0.01-0.20); Immature Granulocytes % (auto) 0.2 %; Lymphocytes # (auto) 1.02 K/uL (1.2-3.4); Lymphocytes % (auto) 20.6 %; Mean Corpuscular Hemoglobin 24.2 pg (25.0-34.0); Mean Corpuscular Hgb Conc 31.9 g/dL (32.0-36.0); Mean Platelet Volume 9.7 fL (9.4-12.4); Monocytes # (auto) 0.34 K/uL (0.11-0.59); Monocytes % (auto) 6.9 %; Neutrophils # (auto) 3.45 K/uL (1.40-6.50); Neutrophils % (auto) 69.5 %; Platelet Count 111 K/uL (130-400); RDW Coefficient of Variation 14.6 % (11.5-14.5); RDW Standard Deviation 39.3 fL (36.4-46.3); Red Blood Count 4.95 M/uL (4.20-5.40); White Blood Count 4.96 K/ul (4.8-10.8)
[2022-10-05 08:41] LABS: BUN Creatinine Ratio 23.9 (10-20); Calcium 8.9 mg/dl (8.6-10.3); Chol HDL Ratio 3.6 (0-5); Creatinine Clr Calc Pharmacy 31.5 ml/min; Est GFR (African American) 41.5 ml/min; Est GFR (Non-African American) 35.8 ml/min; Magnesium 1.7 mg/dl (1.7-2.4); Potassium 3.8 mmol/L (3.5-5.1)
[2022-10-05 09:32] LABS: Estimated Average Glucose 148 mg/dl; Hemoglobin A1C 6.8 % (4.5-5.6)
--- NOTE | 2022-10-05 09:44 | Hospitalist Progress Note ---
Date of Service October 05, 2022 Assessment & Plan (1) Urinary urgency: (2) History of stroke: (3) Hypertension: (4) T2DM (type 2 diabetes mellitus): Plan Liv Carvalho is a 81 year-old female with a past medical history of HTN, HLD, prior CVA (2018), T2DM, CKD3, CAMRON, OHS, asthma, GERD, MDD, and DEEPAK. She presented to the ED due to stroke-like symptoms. Stroke like symptoms - hx of stroke in 2019 with multiple TIAs - CTA Head/Neck: no acute findings. 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 extreme dehydration leading to water shed deficits - will repeat MRI brain tomorrow AM; if neg, may consult neuro for further evaluation UTI - endorses dysuria and dark urine; afebrile, no leukocytosis - urine cx showed gram neg bacilli >100,000; recent cultures from UTIs grew pansensitive e. coli and klebsiella respectively - per recent transfer iron operator evaluation (note uploaded in chart), patient ok to receive cephalosporins - s/p ceftriaxone 2g x1; continue with cefdinir 300 mg BID x5 days total ABX (start 10/04) - hx of recurrent UTIs, chronic radiation cystitis -Continue home mirabegron, Oxybutynin -Should follow up with urology after discharge Acute on chronic kidney disease - baseline appears labile but between 1-1.2 - Cr 1.38 this AM - begin LR at 125 mL/hr Type 2 Diabetes Mellitus w/ peripheral neuropathy - A1C 6.8 - sliding scale insulin Hypertension/PACs - continue metoprolol 50 mg nightly Anxiety/Depression - continue home escitalopram Asthma - continue montelukast, home inhalers Obstructive Sleep Apnea - recommend CPAP use nightly GERD - continue PPI FEN: heart healthy, DM II VTE Prophylaxis: SCDs, reevaluate after repeat MRI tomorrow Code Status: DNR/DNI Dispo: med/tele Admission and Anticipated Discharge Date Admission Date: October 04, 2022 Supervising Physician Co-Signing Physician Notes I personally examined the patient and verified all chiu points of history and exam, discussed case, and agree with decision making with Dr Ellington feeling about the same. New symptoms are right sided numbness from the top of her head to the bottom of her toesshe has chronic numbness on the leftbut it is worse, and the numbness is asymmetricshe can almost feel a line down her body where she is more numb on the left than the right. She also feels a bit weak on the right side which is brand-new, and has binocular double vision which is only happened to her when she has had TIAs before. Interestingly, she has been very fatigued, and had been allowed to sleep for roughly 30 hoursonly being awakened to take her meds. Daughter notes that she is otherwise been doing surprisingly welland even a week ago was out shopping and pushing a shopping cart, upright for an hour or more at the time vitals noted, in general she is awake and alert pleasant no distress. Disconjugate gazealthough she notes this is chronic. Horizontal binocular diplopia. Facial droop, other neurodeficits as above. She does have motor bilaterally although notes is weaker. Skin without rashes pallor or icterus. Breathing unlabored. Neurologic deficitscognitively soundsshe notes she was with it the whole time last night, as does her daughtershe does recall that she was slow to respond but absolutely not confused, her daughter reiterates thisI do not think an encephalopathy was at play. Certainly sounds PARK MAINTENANCE TECHNICIAN mediatedthe exact cause is little bit tough to sort out. Cerebrovascular accident would be a bit odd given the distribution of her neurodeficits, given that it would probably require multiple unrelated areas, although it may be possible that poor flow to her carey could cause most of this. At any rate the exact etiology is not yet clearCVA obviously has not been ruled out given her strokelike deficits that have persisted and not resolvedto that end if her symptoms persist into tomorrow we will repeat an MRI. Prolonged TIA/R IND certainly on the differential should her symptoms persist. At the same time, given her age and frailty of cerebral circulation, I do wonder if she is not suffering from a degree of global watershed hypoperfusion that is just more focused in her areas of atheros clerosis due to a relative low flowthis would be corroborated by her somewhat elevated creatinine (certainly not higher than she has been at times, but higher than other recent readings) and high specific gravity on her UAcoupled with the fact that she basically went about 30 hours with minimal p.o. fluid intakewe will give IV fluids and follow in that respect. May need to enlist neurology assistance, but certainly will wait until a more clear clinical picture or at least until the next steps have been carried out, given that there is not an acuity/time urgency to the situation. DVT proph - SCDs ( Pharmacologic not used at this time due to relative thrombocytopenia) Subjective Pt states she feels terrible this morning. Two days ago she notes that She endorses that her whole left side is numb which is new for her. She has a hx of stroke in 2019 which affected her left side. She has had at least 5 episodes of TIAs. She reports horizontal double vision. Review of Systems Review of Systems: As per HPI Physical Exam Physical Exam: Constitutional: well appearing, no acute distress HEENT: normocephalic, no conjunctival injection CV: RRR, no murmur, no LE edema Respiratory: CTA bilaterally. No rhonchi, wheezes, or crackles. No increased work of breathing MSK: no gross deformities noted Skin: warm, dry, no rashes Neuro: alert and oriented. Generalized weakness throughout but left > right. Left facial droop present. Left sided sensation of face, UE, and LE different/less than right. Right eye noted to be laterally deviated with straigh t gaze. Left pronator drift present. Psych: mood and affect congruent Results & Data Results & Data Vital Signs (Past 12 Hours) Vital Signs Temp Pulse Pulse Resp BP Pulse Ox O2 Del Method 10/05/22 07:00 36.8 C 57 L 14 141/77 H 95 Room Air 10/05/22 05:57 Room Air 10/05/22 03:38 36.6 C 60 16 137/65 98 Room Air, CPAP 10/04/22 23:53 47 L 10/05/22 03:30 20 10/05/22 01:52 36.7 C 61 16 155/72 H 94 Room Air 10/05/22 00:30 56 L 16 97 10/04/22 22:52 Room Air 10/04/22 22:00 60 18 162/81 H 98 Room Air Resident Activity Tracking Resident Involvement: Resident Care Provided Care Provided: Adult Hospital Medicine (3) Hypertension Hypertension type: unspecified Qualified Code(s): I10 - Essential (primary) hypertension
[2022-10-05] MEDS: CLOPIDOGREL BISULFATE 75 MG TAB PO SCH (10:34)
[2022-10-05] MEDS: ASPIRIN 81 MG ECTAB PO SCH (10:34)
[2022-10-05] MEDS: MAGNESIUM OXIDE 400 MG TAB PO SCH (10:35)
[2022-10-05] MEDS: IPRATROPIUM BROMIDE NASAL SPRAY 0.06% 15ML NAE SCH (10:35)
[2022-10-05] MEDS: PANTOprazole 40 MG TAB PO SCH ×2 (10:35→17:24)
[2022-10-05] MEDS: LANTUS PER UNIT CHARGE SQ SCH ×2 (10:38→21:28)
--- NOTE | 2022-10-05 10:40 | XCELERA ---
[id number]
[2022-10-05] MEDS: CYANOCOBALAMIN (B-12) 500 MCG TABLET PO SCH (12:11)
[2022-10-05] MEDS ORDERED: LACTATED RINGER'S 1,000 ML IV SCH (15:15)
[2022-10-05] MEDS ORDERED: MONTELUKAST SODIUM 10 MG TABLET PO SCH (16:30)
[2022-10-05] MEDS ORDERED: Nursing to Pharmacy Communication SCH (17:15)
[2022-10-05] MEDS: LACTATED RINGER'S 1,000 ML IV SCH (17:23)
--- NOTE | 2022-10-05 18:07 | Billing Data ---
Date of Service October 05, 2022 Coding Level of Care Code 82070 SUB INP/OBS CARE MIN
[2022-10-05] MEDS ORDERED: METOPROLOL TARTRATE 50 MG TAB PO SCH (21:00)
[2022-10-05] MEDS ORDERED: ESCITALOPRAM OXALATE 20 MG TAB PO SCH (21:00)
[2022-10-05] MEDS: VIBEGRON 75 MG TAB PO SCH ×2 (21:29→21:38)
[2022-10-05] MEDS: CEFDINIR 300 MG CAP PO SCH (22:06)
[2022-10-06] MEDS: LACTATED RINGER'S 1,000 ML IV SCH ×2 (01:10→08:19)
[2022-10-06 06:26] LABS: Basophils # (auto) 0.05 K/uL (0-0.2); Basophils % (auto) 1.1 %; Eosinophils # (auto) 0.06 K/uL (0-0.50); Eosinophils % (auto) 1.3 %; Hematocrit (blood only) 38.8 % (37.0-47.0); Hemoglobin 12.4 g/dl (12.0-16.0); Immature Granulocytes # (auto) 0.01 K/uL (0.01-0.20); Immature Granulocytes % (auto) 0.2 %; Lymphocytes # (auto) 1.31 K/uL (1.2-3.4); Lymphocytes % (auto) 27.6 %; Mean Corpuscular Hemoglobin 24.7 pg (25.0-34.0); Mean Corpuscular Volume 77.1 fL (80.0-100.0); Mean Platelet Volume 9.4 fL (9.4-12.4); Monocytes # (auto) 0.32 K/uL (0.11-0.59); Monocytes % (auto) 6.8 %; Neutrophils # (auto) 2.99 K/uL (1.40-6.50); Platelet Count 111 K/uL (130-400); RDW Coefficient of Variation 14.3 % (11.5-14.5); RDW Standard Deviation 39.3 fL (36.4-46.3); Red Blood Count 5.03 M/uL (4.20-5.40); White Blood Count 4.74 K/ul (4.8-10.8)
[2022-10-06 06:31] LABS: BUN Creatinine Ratio 23.3 (10-20); Calcium 9.3 mg/dl (8.6-10.3); Creatinine Clr Calc Pharmacy 32.6 ml/min; Est GFR (African American) 43.3 ml/min; Est GFR (Non-African American) 37.4 ml/min; Potassium 4.1 mmol/L (3.5-5.1)
[2022-10-06] MEDS: PANTOprazole 40 MG TAB PO SCH (08:11)
[2022-10-06] MEDS: CEFDINIR 300 MG CAP PO SCH (08:11)
[2022-10-06] MEDS: CLOPIDOGREL BISULFATE 75 MG TAB PO SCH (08:12)
[2022-10-06] MEDS: MAGNESIUM OXIDE 400 MG TAB PO SCH (08:12)
[2022-10-06] MEDS: ASPIRIN 81 MG ECTAB PO SCH (08:12)
[2022-10-06] MEDS: IPRATROPIUM BROMIDE NASAL SPRAY 0.06% 15ML NAE SCH (08:13)
[2022-10-06] MEDS: LANTUS PER UNIT CHARGE SQ SCH (08:16)
[2022-10-06] MEDS: INSULIN ASPART PER UNIT CHARGE SC SCH ×2 (08:16→12:24)
--- NOTE | 2022-10-06 09:45 | Discharge Summary ---
Date of Service October 06, 2022 Admission HPI Per Admitting Provider Liv Carvalho is a 81 year-old female with a past medical history of HTN, HLD, prior CVA (2019), T2DM, CKD3, CAMRON, OHS, asthma, GERD, MDD, and DEEPAK. She presented to the ED due to stroke-like symptoms. She notes that she went to bed last night and did not awake until 5pm today, when she got out of bed she felt very weak. She recalls that she typically has left sided weakness but today is feeling more weak on both sides. She also reports having some double vision. She states that every time she has had a TIA in the past she had double vision. Her daughter is at bedside and states that she feels that he speech is "off" as it is slower and some words are slurred. Liv notes that she has recently lost about 40 pounds and had been ambulating much more easily, however in the past few days she has gotten more weak. Liv also notes that she has struggled to drink enough fluids, has had darker urine and also recalls burning with urination. She denies any chest pain, shortness of breath, fever, body aches or chills. Has had an occasional headache and endorses double vision. Admission Exam Per Admitting Provider Constitutional: + obese, cooperative and + in distress Eyes: Exotropia of right eye. ENMT: External ears and nose normal. Moist mucous membranes. Dentition absent. Respiratory: normal respiratory effort, lungs clear to auscultation Cardiovascular: Rate/Rhythm: regular rate and regular rhythm +1 edema of bilateral lower extremities Gastrointestinal (Abdomen): Abdomen soft, nontender. No masses palpated. Neurologic: moves all extremities and awake Cranial Nerves: normal facial strength, tongue midline, able to rotate head bilaterally, able to elevate shoulders bilaterally and no nystagmus Very mild facial droop. Right eye with exotropia. +4/5 strength for upper and lower extremities bilaterally. Psychiatric: Orientation: alert, oriented to person, oriented to place, oriented to time and cooperative Principal Diagnosis stroke-like symptoms, RIND vs. dehydration Discharge Exam Constitutional: well appearing, no acute distress HEENT: normocephalic, right extropia, no conjunctival injection CV: regular rhythm, regular rate, no murmur, no LE edema Respiratory: Clear to auscultation bilaterally. No rhonchi, wheezes, or crackles. No increased work of breathing MSK: no gross deformities noted Skin: warm, dry, no rashes Neuro: alert, oriented. Generalized weakness appears equal bilaterally but improved from yesterday. Sensation intact and the same in bilateral UE and LE. Left sided facial numbness still present. Improvement in left sided facial droop. Discharge Data Allergies Allergy/AdvReac Type Severity Reaction Status Date / Time cantaloupe Allergy Severe THROAT Verified 10/04/22 20:36 CLOSES celecoxib [From Celebrex] Allergy Severe CAUSED Verified 10/04/22 20:36 STROKE melon Allergy Severe THROAT Verified 10/04/22 20:36 CLOSES meperidine Allergy Severe almost Verified 10/04/22 20:36 "closed throat" midodrine Allergy Severe "almost Verified 10/04/22 20:36 closed throat" sulfamethoxazole Allergy Severe THROAT Verified 10/04/22 20:36 CLOSED trimethoprim Allergy Severe THROAT Verified 10/04/22 20:36 CLOSED watermelon Allergy Severe THROAT Verified 10/04/22 20:36 CLOSES diphenoxylate Allergy Intermediate Unknown Verified 10/04/22 20:36 metronidazole [From Flagyl] Allergy Intermediate Hives Verified 10/04/22 20:36 DENILSON Inhibitors Allergy Unknown unknown to Verified 10/04/22 20:36 pt atropine Allergy Unknown Unknown Verified 10/04/22 20:36 carvedilol Allergy Unknown Unknown Verified 10/04/22 20:36 clonazepam [From Klonopin] Allergy Unknown Unknown Verified 10/04/22 20:36 doxycycline Allergy Unknown Unknown Verified 10/04/22 20:36 furosemide [From Lasix] Allergy Unknown Unknown Verified 10/04/22 20:36 Histamine H2 Inhibitors Allergy Unknown unknown to Verified 10/04/22 20:36 pt Iodinated Contrast Media Allergy Unknown JULY 2017 Verified 10/04/22 20:36 [facility] -- TOLERATED WITH SLOW INFUSION PER PATIENT nitrofurantoin Allergy Unknown Unknown Verified 10/04/22 20:36 phenazopyridine Allergy Unknown Unknown Verified 10/04/22 20:36 ranitidine Allergy Unknown Unknown Verified 10/04/22 20:36 repaglinide Allergy Unknown Unknown Verified 10/04/22 20:36 rosiglitazone Allergy Unknown Unknown Verified 10/04/22 20:36 tolterodine [From Detrol] Allergy Unknown Unknown Verified 10/04/22 20:36 ciprofloxacin [From Cipro] AdvReac Severe throat Verified 10/04/22 20:36 swelling citalopram [From Celexa] AdvReac Severe SEE COMMENT Verified 10/04/22 20:36 diazepam AdvReac Severe SEDATION Verified 10/04/22 20:36 LASTING TOO LONG prednisone AdvReac Severe BSG Verified 10/04/22 20:36 ELEVATED TO THE 500'S glyburide AdvReac Intermediate SEVERE Verified 10/04/22 20:36 ABDOMINAL PAIN meloxicam [From Mobic] AdvReac Intermediate SICK TO Verified 10/04/22 20:36 STOMACH metformin AdvReac Intermediate SEVERE Verified 10/04/22 20:36 ABDOMINAL PAIN oxycodone AdvReac Intermediate SEVERE Verified 10/04/22 20:36 WITHDRAWAL SYMPTOMS WHEN TRYING TO STOP TAKING paroxetine AdvReac Intermediate DID NOT Verified 10/04/22 20:36 HELP tramadol AdvReac Intermediate Vomiting Verified 10/04/22 20:36 albuterol AdvReac Unknown UNK Verified 10/04/22 20:36 carbamazepine AdvReac Unknown Unknown Verified 10/04/22 20:36 ibuprofen AdvReac Unknown Unknown Verified 10/04/22 20:36 lisinopril AdvReac Unknown UNK Verified 10/04/22 20:36 mirtazapine AdvReac Unknown Unknown Verified 10/04/22 20:36 olanzapine AdvReac Unknown Unknown Verified 10/04/22 20:36 rofecoxib AdvReac Unknown Unknown Verified 10/04/22 20:36 valproic acid AdvReac Unknown Unknown Verified 10/04/22 20:36 Consultations 10/04/22 20:12 ED Decision to Admit Stat Ordered Studies 10/04/22 18:59 CT angio head w con Stat CT angio neck with con Stat IMPRESSION: Normal head CTA. CT head/brain wo con Stat No acute findings in the head/brain. 1.3 cm right frontal lobe meningioma 10/04/22 22:07 MRI Brain [MR brain wo con] Stat IMPRESSION: No evidence of acute intracranial pathology. Moderate nonspecific white matter changes. Dilated perivascular spaces are remote lacunar infarcts of the left carey and right thalamus. Hospital Course (1) Urinary urgency: (2) History of stroke: (3) Hypertension: (4) T2DM (type 2 diabetes mellitus): Andreia Carvalho is a 81 year-old female with a past medical history of HTN, HLD, prior CVA (2019), T2DM, CKD3, CAMRON, OHS, asthma, GERD, MDD, and DEEPAK. She presented to the ED due to stroke-like symptoms. Stroke like symptoms - hx of left pontine stroke in 2019 with residual left side deficits (mild left sided facial droop w/o speech deficits) with multiple TIAs - CTA Head/Neck: no acute findings. 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 - brain MRI neg for acute stroke; past stroke revisualized - continue home plavix and aspirin; has hx of statin myopathy, consider restarting statin - resolving upon discharge with IVFs- suspect RIND vs dehydration event UTI - endorses dysuria and dark urine; afebrile, no leukocytosis - urine cx showed gram neg bacilli >100,000; recent cultures from UTIs grew pansensitive e. coli and klebsiella respectively - per recent machine welt butter evaluation (note uploaded in chart), patient ok to receive cephalosporins - s/p ceftriaxone 2g x1; continue with cefdinir 300 mg BID x5 days total ABX (end 10/08) - hx of recurrent UTIs, chronic radiation cystitis -Continue home mirabegron, Oxybutynin -Should follow up with urology after discharge Acute on chronic kidney disease - baseline appears labile but between 1-1.2 - Cr 1.33 this AM - continue to promote adequate hydration - recommend repeat BMP to ensure Cr downtrends/stabilizes Type 2 Diabetes Mellitus w/ peripheral neuropathy - A1C 6.8 - sliding scale insulin while hospitalized - may resume outpatient regimen upon discharge Hypertension/PACs - continue metoprolol 50 mg nightly Anxiety/Depression - continue home escitalopram Asthma - continue montelukast, home inhalers Obstructive Sleep Apnea - recommend CPAP use nightly GERD - continue PPI FEN: heart healthy, DM II VTE Prophylaxis: SCDs d/t concern for stroke; promote ambulation as able Code Status: DNR/DNI Dispo: [facility] for [facility] Total Time Total Time Spent Total Time Spent (In Minutes): <30 Discharge Plan Discharge Items Patient Disposition: Transfer Inpatient Rehab Fac Reason For Visit: STROKE LIKE SYMPTOMS Discharge Diagnosis: stroke like symptoms Activity: Per Instructions section Non-emergency contact: Primary Care Provider and Neurologist Call non-emergency contact if: you have any medication questions and your symptoms worsen Follow-up/Referrals: Idris Michele MD [Physician] - (f/u stroke-like sx; RIND vs. dehydration) Darwin Lugo III, CRNP [Primary Care Provider] - Diet: Carb Consistent or DM2 and Heart Healthy Addtl Attending Provider Instructions: Liv Carvalho is a 81 year-old female with a past medical history of HTN, HLD, prior CVA (2019), T2DM, CKD3, CAMRON, OHS, asthma, GERD, MDD, and DEEPAK. She presented to the ED due to stroke-like symptoms. Stroke like symptoms - hx of left pontine stroke in 2019 with residual left side deficits (mild left sided facial droop w/o speech deficits) with multiple TIAs - CTA Head/Neck: no acute findings. 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 - brain MRI neg for acute stroke; past stroke revisualized - continue home plavix and aspirin; has hx of statin myopathy, consider restarting statin - resolving upon discharge with inititation of IVF- suspect RIND event vs. dehydration UTI - endorses dysuria and dark urine; afebrile, no leukocytosis - urine cx showed gram neg bacilli >100,000; recent cultures from UTIs grew pansensitive e. coli and klebsiella respectively - per recent machine welt butter evaluation (note uploaded in chart), patient ok to receive cephalosporins - s/p ceftriaxone 2g x1; continue with cefdinir 300 mg BID x5 days total ABX (end 10/08) - hx of recurrent UTIs, chronic radiation cystitis -Continue home mirabegron, Oxybutynin -Should follow up with urology after discharge Acute on chronic kidney disease - baseline appears labile but between 1-1.2 - Cr 1.33 this AM - continue to promote adequate hydration - recommend repeat BMP to ensure Cr continues to downtrend/stabilize Type 2 Diabetes Mellitus w/ peripheral neuropathy - A1C 6.8 - sliding scale insulin while hospitalized - may resume outpatient regimen upon discharge Hypertension/PACs - continue metoprolol 50 mg nightly Anxiety/Depression - continue home escitalopram Asthma - continue montelukast, home inhalers Obstructive Sleep Apnea - recommend CPAP use nightly GERD - continue PPI FEN: heart healthy, DM II VTE Prophylaxis: SCDs d/t concern for stroke; promote ambulation as able Code Status: DNR/DNI Dispo: [facility] for re[facility] Pending Studies at Discharge: No Stand-Alone Forms: My [facility], Smoking Cessation Skilled Items Patient informed of condition?: Yes DNR: Yes Discharge Level of Care: Acute rehab Communicable Disease: No Discharge Prognosis: Improving Lines: None Urinary Catheter: No Medications and DC Order Prescriptions: New cefdinir 300 mg Capsule 300 mg PO BID Qty: 5 0RF Continued epinephrine 0.3 mg/0.3 mL auto-injector 0.3 mg IM DIRECTED PRN (Reason: Anaphylaxis) Qty: 1 0RF loperamide [Anti-Diarrheal (loperamide)] 2 mg tablet 2 mg PO Q4H PRN (Reason: Loose Stool) Rx Instructions: administer after each loose stool until symptoms controlled; do not exceed 8 mg per 24 hrs lactase [Lactaid] 3,000 unit tablet 9,000 unit PO DIRECTED PRN (Reason: BEFORE ANY LACTOSE PRODUCTS) Rx Instructions: administer with meals and/or snacks (DME) pen needle, diabetic [BD Ultra-Fine Short Pen Needle] 31 gauge x 5/16" needle See Rx Instructions .ROUTE .MEDSUPPLY Qty: 300 3RF Rx Instructions: Inject insulin three times daily clopidogrel [Plavix] 75 mg tablet 75 mg PO QAM Qty: 90 3RF escitalopram oxalate 20 mg tablet 20 mg PO HS Qty: 90 3RF aspirin 81 mg tablet,delayed release (DR/EC) 81 mg PO QAM Qty: 90 3RF (DME) Dexcom G6 Sensor Device See Rx Instructions .ROUTE .MEDSUPPLY Qty: 3 0RF Rx Instructions: use 3 times a day and as needed to check blood glucose (DME) Dexcom G6 Transmitter Device See Rx Instructions .ROUTE .MEDSUPPLY Qty: 1 0RF Rx Instructions: use 3 times a day and as needed to check blood glucose (DME) Dexcom G6 Filer Helper Misc See Rx Instructions .ROUTE .MEDSUPPLY Qty: 1 0RF Rx Instructions: use 3 times a day and as needed to check blood glucose magnesium oxide 200 mg magnesium tablet 400 mg PO DAILY Qty: 60 5RF (DME) OneTouch Ultra Test Strip See Rx Instructions .Route Qty: 200 2RF Rx Instructions: Test 4 times a day insulin glargine [Basaglar KwikPen U-100 Insulin] 100 unit/mL (3 mL) insulin pen 14 unit SUBCUT QAM Qty: 15 1RF ipratropium bromide 21 mcg (0.03 %) spray,non-aerosol 2 spray intranasal DAILY Qty: 30 2RF Rx Instructions: administer into each nostril (DME) lancets Misc See Rx Instructions .ROUTE .MEDSUPPLY Qty: 100 Rx Instructions: As directed nitroglycerin 0.4 mg tablet, sublingual 0.4 mg sublingual DIRECTED PRN (Reason: Chest Pain) Qty: 30 0RF Rx Instructions: PLACE ONE TABLET UNDER THE TONGUE EVERY 5 MINUTES FOR UP TO 3 DOSES OVER 15 MINUTES IF NEEDED FOR CHEST PAIN albuterol sulfate [Ventolin HFA] 90 mcg/actuation HFA aerosol inhaler 2 puff INHALATION Q4H PRN (Reason: Wheezing) Qty: 8.5 0RF hydrocodone-acetaminophen 5-325 mg tablet 1 tab PO Q8H MDD 3 GRAMS APAP/24 HOURS PRN (Reason: pain) Qty: 20 0RF lidocaine 4 % adhesive patch,medicated 2 patch topical DAILY PRN (Reason: LOWER BACK PAIN) baclofen 10 mg tablet 10 mg PO BID PRN (Reason: muscle spasm) Qty: 60 5RF pantoprazole 40 mg tablet,delayed release (DR/EC) 40 mg PO BID17 metoprolol tartrate 50 mg tablet 50 mg PO HS montelukast [Singulair] 10 mg tablet 10 mg PO QDD Myrbetriq 25 mg tablet extended release 24 hr 25 mg PO HS PreserVision AREDS-2 250-90-40-1 mg capsule 1 tab PO QDD diphenhydramine HCl [Benadryl Allergy] 25 mg tablet 25 mg PO DAILY PRN (Reason: itching) melatonin 3 mg Tablet,Disintegrating 3 mg PO HS PRN (Reason: Insomnia) cyanocobalamin (vitamin B-12) [Vitamin B-12] 1,000 mcg tablet 1,000 mcg PO QDL oxybutynin chloride 5 mg tablet 5 mg PO TID PRN (Reason: Bladder Spasms) hydrocortisone 1 % cream 1 applic topical TID PRN (Reason: Rash) Discharge Orders: Discharge Order (Routine); Ordered 10/06/22 Ordered By: Anne-Marie Ellington Admission Data Admit Date/Time: 10/04/22 21:50 Attending Provider: Augustin Aguilar Admit Provider: Flora Matt Primary Care Provider: Darwin Lugo III Other Providers: Rigo Broderick ; [facility] Other Interventions: Discharge Summary Assessment (RN) Last Done: 10/06/22 13:00 Supervising Physician Co-Signing Physician Notes I personally examined the patient and verified all chiu points of history and exam, discussed case, and agree with decision making with Dr Ellington feels better. Right-sided numbness basically resolved. Left sided numbness worse than her baseline, but better than yesterday. Double vision persists but less troubling. Overall feels better. Would very much like to go to rehab. vitals noted, in general she is awake and alert pleasant no distress. Disconjugate gazealthough she notes this is chronic. Horizontal binocular diplopia. Facial droop, other neurodeficits as aboveResolving . Skin without rashes, pallor or icterus. Breathing unlabored. Neurologic deficitscognitively soundsshe notes she was coherent the whole time on night of admission, as does her daughtershe does recall that she was slow to respond but absolutely not confused, her daughter reiterates thisI do not think an encephalopathy was at play. Certainly sounds DEVELOPER ADVISOR mediatedthe exact cause is little bit tough to sort out. was asleep for essentially 30 hours other than waking briefly to take her medicines, labs and UA suggestive dehydrationand with her extensive underlying cerebrovascular diseasemight lead differential would be watershed ischemia with neurodeficits corresponding to low flowwhich would explain her neuro symptoms and negative MRIand certainly would fit with improvement with IV fluids. Discussed with patient and familyvery difficult to rule out a RIND, since it would essentially "leave no footprint" eitherbut cause/effect makes a watershed event seem more plausible. Encouraged maintenance of p.o. intake. Stable for rehab. We all agreed that given the complexity of her situation neurology follow-up would certainly make sense, but we all also agreed that it made more sense/would be a higher priority to get her to rehab rather than prolong her hospitalization for an inpatient neurology consult. I messaged her primary neurologist with her chart attached in regards to her current situation. Safe/stable for rehab. Resident Activity Tracking Resident Involvement: Resident Care Provided Care Provided: Adult [facility]
[2022-10-06] MEDS: CYANOCOBALAMIN (B-12) 500 MCG TABLET PO SCH (12:25)
--- NOTE | 2022-10-06 18:34 | Billing Data ---
Date of Service October 06, 2022 Coding Level of Care Code 30325 IN/OBS DISCH 30 MIN/LESS
--- NOTE | 2022-10-06 23:07 | Electrocardiogram Report ---
Test Reason : Blood Pressure : / mmHG Vent. Rate : 068 BPM Atrial Rate : 068 BPM P-R Int : 172 ms QRS Dur : 080 ms QT Int : 418 ms P-R-T Axes : 084 080 075 degrees QTc Int : 444 ms Normal sinus rhythm Normal ECG When compared with ECG of 18-JUN-2022 03:57, Criteria for Septal infarct are no longer Present Confirmed by Wilfrido Bustamante ([id number]) on 10/06/2022 11:06:57 PM Referred By: REFERRED SELF Confirmed By:Wilfrido Bustamante
--- NOTE | 2022-10-07 05:21 | Billing Data ---
Date of Service October 07, 2022 Coding Level of Care Code 08184 INT INP/OBS CARE
== END 2022-10-06 15:01 | DRG 65 ==
LOC: ED 18:42 → 2N 21:50 → SUATTDRO 21:50 → 2N 22:52

== ENCOUNTER 2022-10-10 01:31 | Observation (INO) ==
[2022-10-10] MEDS ORDERED: MoRPHine SULFATE 4 MG/ML 1 ML CARP\\VIAL IV STA (01:43)
--- NOTE | 2022-10-10 02:02 | Emergency Department Note ---
History of Present Illness General Chief complaint: Leg Injury/Pain Stated complaint: RLE/ R foot pain Time Seen by Provider: 10/10/22 01:39 History of Present Illness This 81-year-old female presents to the ER for recurrent right foot pain. She has neuropathic foot pain. Patient was given pain meds at the rehab facility but was still in pain and came here. She was given a Oxy IR [place] Tylenol with no relief of symptoms. Patient states there are some swelling noted. Patient denies chest pain, dyspnea, numbness, tingling, trauma to the area. Patient has been to the ER before for the same complaint. Home Medications Medication Instructions Recorded Confirmed Type lancets #100 ea 03/03/20 10/10/22 History epinephrine 0.3 mg/0.3 mL 0.3 mg (0.3 mL) IM DIRECTED PRN 05/03/21 10/10/22 Rx injection, auto-injector Anaphylaxis #1 ea diphenhydramine HCl 25 mg tablet 25 mg PO DAILY PRN itching 05/19/21 10/10/22 History (Benadryl Allergy) melatonin 3 mg disintegrating 3 mg PO HS PRN Insomnia 07/22/21 10/10/22 History tablet cyanocobalamin (vitamin B-12) 1,000 mcg PO QDL 02/16/22 10/10/22 History 1,000 mcg tablet (Vitamin B-12) lactase 3,000 unit tablet (Lactaid) 9,000 unit PO .WITH MEALS AND HS 03/03/22 10/10/22 History PRN BEFORE ANY LACTOSE PRODUCTS loperamide 2 mg tablet 2 mg PO Q4H PRN Loose Stool 03/03/22 10/10/22 History (Anti-Diarrheal (loperamide)) hydrocortisone 1 % topical cream 1 applic topical TID PRN Rash 03/31/22 10/10/22 History oxybutynin chloride 5 mg tablet 5 mg PO TID PRN urinary discomfort 03/31/22 10/10/22 History pen needle, diabetic 31 gauge x #300 ea 04/19/22 10/10/22 Rx 5/16" (BD Ultra-Fine Short Pen Needle) albuterol sulfate 90 mcg/actuation 2 puff inhalation Q4H PRN Wheezing 05/01/22 10/10/22 Rx aerosol inhaler (Ventolin HFA) #8.5 grams nitroglycerin 0.4 mg sublingual 0.4 mg sublingual DIRECTED PRN 05/01/22 10/10/22 Rx tablet Chest Pain #30 tabs aspirin 81 mg tablet,delayed 81 mg PO QAM #90 tabs 05/09/22 10/10/22 Rx release blood-glucose sensor (Dexcom G6 #3 ea 05/23/22 10/10/22 Rx Sensor device) blood-glucose transmitter (Dexcom #1 ea 05/23/22 10/10/22 Rx G6 Transmitter device) blood-glucose meter,continuous #1 ea 05/24/22 10/10/22 Rx (Dexcom G6 Auto Refinisher) baclofen 10 mg tablet 10 mg PO BID PRN muscle spasm #60 07/14/22 10/10/22 Rx tabs magnesium oxide 400 mg PO DAILY #60 tabs 07/27/22 10/10/22 Rx blood sugar diagnostic (OneTouch #200 ea 07/28/22 10/10/22 Rx Ultra Test strips) hydrocodone 5 mg-acetaminophen 325 1 tab PO Q8H PRN pain #20 tabs 08/11/2209/30 Rx mg tablet ipratropium bromide 21 mcg (0.03 2 spray intranasal DAILY #30 mL 10/02/22 0 10/10/22 Rx %) nasal spray metoprolol tartrate 50 mg tablet 50 mg PO HS 10/04/22 10/10/22 History clopidogrel 75 mg tablet (Plavix) 75 mg PO QAM #90 tabs 10/09/22 10/10/22 Rx escitalopram oxalate 20 mg tablet 20 mg PO HS #90 tabs 10/09/22 10/10/22 Rx mirabegron 25 mg tablet,extended 25 mg PO HS #90 tabs 10/09/22 10/10/22 Rx release 24 hr (Myrbetriq) montelukast 10 mg tablet 10 mg PO QDD #90 tabs 10/09/22 10/10/22 Rx (Singulair) acetaminophen 325 mg tablet 650 mg PO Q4 PRN Pain 10/10/22 10/10/22 History cefdinir 300 mg capsule 300 mg PO Q12 10/10/22 10/10/22 History cholecalciferol (vitamin D3) 125 125 mcg PO QDL 10/10/22 10/10/22 History mcg (5,000 unit) tablet (Vitamin D3) cyclobenzaprine 7.5 mg tablet 7.5 mg PO Q8 10/10/22 10/10/22 History docusate sodium 100 mg capsule 100 mg PO BID 10/10/22 10/10/22 History enoxaparin 30 mg/0.3 mL 30 mg subcut DAILY 10/10/22 10/10/22 History subcutaneous syringe gabapentin 100 mg capsule 200 mg PO TID 10/10/22 10/10/22 History insulin glargine 100 unit/mL (3 6 unit subcut Q12 10/10/22 10/10/22 History mL) subcutaneous pen (Basaglar KwikPen U-100 Insulin) lidocaine 4 %-menthol 1 % topical 1 patch topical HS 10/10/22 10/10/22 History patch oxycodone 5 mg tablet 5 mg PO Q8H PRN Pain 10/10/22 10/10/22 History pantoprazole 40 mg tablet,delayed 40 mg PO .BIDAC 10/10/22 10/10/22 History release vitamin A-vitamin C-vit E-min 1 tab PO QDL 10/10/22 10/10/22 History tablet Allergies Allergy/AdvReac Type Severity Reaction Status Date / Time cantaloupe Allergy Severe THROAT Verified 10/04/22 20:36 CLOSES celecoxib [From Celebrex] Allergy Severe CAUSED Verified 10/04/22 20:36 STROKE melon Allergy Severe THROAT Verified 10/04/22 20:36 CLOSES meperidine Allergy Severe almost Verified 10/04/22 20:36 "closed throat" midodrine Allergy Severe "almost Verified 10/04/22 20:36 closed throat" sulfamethoxazole Allergy Severe THROAT Verified 10/04/22 20:36 CLOSED trimethoprim Allergy Severe THROAT Verified 10/04/22 20:36 CLOSED watermelon Allergy Severe THROAT Verified 10/04/22 20:36 CLOSES diphenoxylate Allergy Intermediate Unknown Verified 10/04/22 20:36 metronidazole [From Flagyl] Allergy Intermediate Hives Verified 10/04/22 20:36 DENILSON Inhibitors Allergy Unknown unknown to Verified 10/04/22 20:36 pt atropine Allergy Unknown Unknown Verified 10/04/22 20:36 carvedilol Allergy Unknown Unknown Verified 10/04/22 20:36 clonazepam [From Klonopin] Allergy Unknown Unknown Verified 10/04/22 20:36 doxycycline Allergy Unknown Unknown Verified 10/04/22 20:36 furosemide [From Lasix] Allergy Unknown Unknown Verified 10/04/22 20:36 Histamine H2 Inhibitors Allergy Unknown unknown to Verified 10/04/22 20:36 pt Iodinated Contrast Media Allergy Unknown JULY 2017 Verified 10/04/22 20:36 [facility] -- TOLERATED WITH SLOW INFUSION PER PATIENT nitrofurantoin Allergy Unknown Unknown Verified 10/04/22 20:36 phenazopyridine Allergy Unknown Unknown Verified 10/04/22 20:36 ranitidine Allergy Unknown Unknown Verified 10/04/22 20:36 repaglinide Allergy Unknown Unknown Verified 10/04/22 20:36 rosiglitazone Allergy Unknown Unknown Verified 10/04/22 20:36 tolterodine [From Detrol] Allergy Unknown Unknown Verified 10/04/22 20:36 ciprofloxacin [From Cipro] AdvReac Severe throat Verified 10/04/22 20:36 swelling citalopram [From Celexa] AdvReac Severe SEE COMMENT Verified 10/04/22 20:36 diazepam AdvReac Severe SEDATION Verified 10/04/22 20:36 LASTING TOO LONG prednisone AdvReac Severe BSG Verified 10/04/22 20:36 ELEVATED TO THE 500'S glyburide AdvReac Intermediate SEVERE Verified 10/04/22 20:36 ABDOMINAL PAIN meloxicam [From Mobic] AdvReac Intermediate SICK TO Verified 10/04/22 20:36 STOMACH metformin AdvReac Intermediate SEVERE Verified 10/04/22 20:36 ABDOMINAL PAIN oxycodone AdvReac Intermediate SEVERE Verified 10/04/22 20:36 WITHDRAWAL SYMPTOMS WHEN TRYING TO STOP TAKING paroxetine AdvReac Intermediate DID NOT Verified 10/04/22 20:36 HELP tramadol AdvReac Intermediate Vomiting Verified 10/04/22 20:36 albuterol AdvReac Unknown UNK Verified 10/04/22 20:36 carbamazepine AdvReac Unknown Unknown Verified 10/04/22 20:36 ibuprofen AdvReac Unknown Unknown Verified 10/04/22 20:36 lisinopril AdvReac Unknown UNK Verified 10/04/22 20:36 mirtazapine AdvReac Unknown Unknown Verified 10/04/22 20:36 olanzapine AdvReac Unknown Unknown Verified 10/04/22 20:36 rofecoxib AdvReac Unknown Unknown Verified 10/04/22 20:36 valproic acid AdvReac Unknown Unknown Verified 10/04/22 20:36 Past Med/Surg History Medical History Acute hypercapnic respiratory failure 03/2019 [facility] DEB (acute kidney injury) Anxiety and depression Asthma Per pulmonology 10/10/19, likely NOT asthma but chronic aspiration. Flovert and Spiriva discontinued, pt to use albuterol PRN Breast cancer UNSURE WHICH SIDE WAS CANCER. Chronic back pain Chronic kidney disease, stage 3a Chronic neck pain Chronic pulmonary aspiration 2/2 h/o CVA, [facility]. Diabetic peripheral neuropathy associated with type 2 diabetes mellitus Dyslipidemia Encephalopathy Fusion of spine GERD (gastroesophageal reflux disease) History of benign brain tumor History of dysphagia ESOPHAGEAL DILATION IN PAST History of esophageal dilatation History of spinal stenosis History of stroke History of uterine cancer Endometrial biopsy revealed endometrioid adenocarcinoma. Status post total abdominal hysterectomy and bilateral salpingo-oophorectomy. Status post completion of radiation therapy with external beam radiation as well as 2 HDR treatments completed 08/15/2013 Hypertension Left pontine stroke 01/2019, on Plavix, following with [facility] neurology. Left pontine stroke Leukopenia Lymphedema of right arm CHRONIC, 2/2 MASTECTOMY Meningioma R temporal lobe, neurology monitoring. Microalbuminuria due to type 2 diabetes mellitus Microcytic anemia Morbid obesity Neuropathy Numb feet, painful radiculopathy in hands from cervical radiculopathy Obesity hypoventilation syndrome Osteoarthritis PAC (premature atrial contraction) PVC (premature ventricular contraction) Sensorineural hearing loss (SNHL) of both ears Severe obstructive sleep apnea CPAP, pt reports compliance T2DM (type 2 diabetes mellitus) Uterine cancer S/P RICHARD BSO WITH RADIATION Weakness Surgical History Difficult airway for intubation History of cardiac catheterization NO STENTS History of cataract surgery BILATERAL History of cholecystectomy History of colonoscopy History of esophagogastroduodenoscopy (EGD) History of knee surgery ARTHROSCOPY LEFT KNEE History of mastectomy BILATERAL History of total abdominal hysterectomy BSO S/P hysterectomy Family History Mother Diabetes Myocardial infarction Hypertension Family history of diabetes mellitus Brother Family history of diabetes mellitus Sister Osteoporosis Arthritis Denies family history of Ovarian cancer Prostate cancer Breast cancer Colorectal cancer Social History Smoking Status: Former smoker Tobacco Type: Cigarettes Age Started Using Tobacco: 15; Age Quit Using Tobacco: 30; packs per day: 1; Second Hand Exposure: No; Do You Dip or Chew Tobacco: No; Hx Alcohol Use: No Hx Substance Use: No Preferred Language: Indian Communication Ability: Effective Communication Ability Comment: per [facility] pt signs own consents Visual Impairment: Limited Hearing Ability: Hard of Hearing 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 Beliefs That Will Affect Care: None marital status: / Current Living Situation: Personal Care Facility Current Living Situation Comment: [facility] current occupational status: retired 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 Feels Safe at Home: Yes Childhood Exposure to Second-Hand Smoke: No Diet: low carbohydrate Diet Comment: low carb Dental Care, Regularly: Yes Physical Activity Frequency: Does not Exercise Seatbelt Use: always Sunscreen Use: No Assistive Devices: Cane and Walker Review of Systems A total of 10 systems reviewed and were otherwise negative Physical Exam Vital Signs Vital Signs - 24 hr 10/10/22 02:06 10/10/22 02:22 10/10/22 02:30 Temperature 36.4 C L Temperature Source Oral Pulse Rate 61 65 63 Pulse Rate from SpO2 Sensor 63 Respiratory Rate 22 19 Respiratory Effort / Characteristics Non-Labored Spontaneous Respiratory Depth Normal Respiratory Pattern Regular Blood Pressure 98/75 L Blood Pressure Mean 82 Blood Pressure Position Lying Pulse Oximetry 95 89 L Oxygen Delivery Method Room Air Room Air Oxygen Flow Rate Sepsis Recent Fever Within 48 Hours No Sepsis New/Unexplained Change in Mental Status N/A Sepsis Action Taken by Nursing No Action Required 10/10/22 03:00 Temperature Temperature Source Pulse Rate 59 L Pulse Rate from SpO2 Sensor 60 Respiratory Rate 15 Respiratory Effort / Characteristics Respiratory Depth Respiratory Pattern Blood Pressure Blood Pressure Mean Blood Pressure Position Pulse Oximetry 96 Oxygen Delivery Method Nasal Cannula Oxygen Flow Rate 2 Sepsis Recent Fever Within 48 Hours Sepsis New/Unexplained Change in Mental Status Sepsis Action Taken by Nursing VITALS: Vitals are noted on the nurse's note and reviewed by myself. Vital signs stable. GENERAL: White female moving all extremities, in no acute distress, nondiaphoretic, well-developed well-nourished. SKIN: The skin was without rashes, erythema, edema, or bruising. There is no tenting of the skin. Capillary reflex less than 2 seconds. HEAD: Normocephalic atraumatic. EARS: External auditory canals clear, EYES: Pupils equal round and reactive to light and accommodation. Conjunctivae without injection, sclerae without icterus. Extraocular movements intact. NOSE: Patent, turbinates without inflammation or discharge MOUTH: Mucous membranes moist. Pharynx without erythema or exudate. Uvula midline. Airway patent. Tongue does not deviate. NECK: Supple without nuchal rigidity. No lymphadenopathy. No thyromegaly. Cervical spine is nontender. No JVD. HEART: Regular rate and rhythm LUNGS: Clear to auscultation bilaterally without wheezes, rales or rhonchi. No retractions or accessory muscle use. ABDOMEN: Positive bowel sounds x 4. Normal tympanic percussion. Soft, nontender, without masses or organomegaly. Benavidez sign negative. No guarding or rebound tenderness. No CVA tenderness MUSCULOSKELETAL: No muscle atrophy, erythema, or edema noted. 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 Pedal pulse +2 equal and present bilaterally. NEURO: Patient was alert and oriented to person place and time. Normal sensation to light and sharp touch. No focal neurological deficits. Course Administered Medications Discontinued Medications Acetaminophen (Acetaminophen 500 Mg Tab) 1,000 mg PO NOW STA Stop: 10/10/22 03:08 Last Admin: 10/10/22 03:59 Dose: Not Given Documented By: Sodium Chloride (Nss 1000ml) 500 mls @ 999 mls/hr IV .Q31M ONE Stop: 10/10/22 04:38 Last Admin: 10/10/22 04:23 Dose: 999 mls/hr Documented By: Lorazepam (Lorazepam 1 Mg Tab) 1 mg SL NOW STA Stop: 10/10/22 02:21 Last Admin: 10/10/22 02:35 Dose: 1 mg Documented By: Morphine Sulfate (Morphine Sulfate 4 Mg/Ml 1 Ml Carp\\Vial) 4 mg IV NOW STA Stop: 10/10/22 01:44 Last Admin: 10/10/22 03:33 Dose: 4 mg Documented By: Oxycodone HCl (Oxycodone Hcl Ir 5 Mg Tab (Immediate Release)) 5 mg PO NOW STA Stop: 10/10/22 02:21 Last Admin: 10/10/22 02:35 Dose: 5 mg Documented By: Trolamine Salicylate (Trolamine Salicylate 10% Crm 255 Appln/85 Gm Tube) 1 appln EXT NOW STA Stop: 10/10/22 03:09 Last Admin: 10/10/22 03:59 Dose: Not Given Documented By: Medical Decision Making Medical Records Attestation: I reviewed the patient's medical records. Home Medications Current Medication List: was personally reviewed by me Laboratory Data Attestation: I reviewed the patient's lab results. 10/10/22 02:20 10/10/22 02:20 Lab Results 10/10/22 10/10/22 10/10/22 Range/Units 02:20 02:20 04:10 WBC 4.64 L (4.8-10.8) K/ul RBC 4.76 (4.20-5.40) M/uL Hgb 11.6 L (12.0-16.0) g/dl Hct 36.7 L (37.0-47.0) % MCV 77.1 L (80.0-100.0) fL MCH 24.4 L (25.0-34.0) pg MCHC 31.6 L (32.0-36.0) g/dL RDW Std Deviation 39.2 (36.4-46.3) fL RDW Coeff of Tim 14.4 (11.5-14.5) % Plt Count 100 L (130-400) K/uL MPV 10.2 (9.4-12.4) fL Immature Gran % (Auto) 0.4 % Neut % (Auto) 58.3 % Lymph % (Auto) 31.3 % Robertson % (Auto) 7.8 % Eos % (Auto) 1.1 % Baso % (Auto) 1.1 % Neut # (Auto) 2.71 (1.40-6.50) K/uL Lymph # (Auto) 1.45 (1.2-3.4) K/uL Robertson # (Auto) 0.36 (0.11-0.59) K/uL Eos # (Auto) 0.05 (0-0.50) K/uL Baso # (Auto) 0.05 (0-0.2) K/uL Immature Gran # (Auto) 0.02 (0.01-0.20) K/uL Sodium 139 (136-145) mmol/L Potassium 4.2 (3.5-5.1) mmol/L Chloride 105 (98-107) mmol/L Carbon Dioxide 25 (21-32) mmol/L Anion Gap 9 (3-11) BUN 43 H (6-23) mg/dl Creatinine 1.77 H (0.6-1.2) mg/dl Est Cr Clr Drug Dosing 24.8 ml/min Est GFR ( Amer) 30.7 ml/min Est GFR (Non-Af Amer) 26.5 ml/min BUN/Creatinine Ratio 24.3 H (10-20) Glucose 147 H (70-99(Fasting)) mg/dl Calcium 9.2 (8.6-10.3) mg/dl Total Bilirubin 0.4 (0.2-1.0) mg/dl AST 15 (13-39) U/L ALT 9 (7-52) U/L Alkaline Phosphatase 63 (34-104) U/L Total Creatine Kinase 73 (26-192) U/L Total Protein 6.8 (6.0-8.3) gm/dl Albumin 3.9 (3.4-5.0) gm/dl Globulin 2.9 (2.5-4.0) gm/dl Albumin/Globulin Ratio 1.3 (0.9-2) SARS-CoV-2, RNA, NAAT NEGATIVE (NEGATIVE) Imaging Data Attestation: I personally reviewed and interpreted this imaging study as follows: MDM Narrative Prior records reviewed and summarized above. Triage Nursing notes reviewed. Additional history obtained from nursing The patient's history was concerning for swelling and pain in the leg. Differential diagnosis: Etiologies such as DVT, musculoskeletal, infection, joint effusion, trauma, lymphedema, idiopathic, CHF, as well as others were entertained.. Physical examination: The physical examination revealed no signs of infection. Neurovascularly intact. ER treatment provided: An order was placed for continuous cardiac monitoring. The monitor shows a rate of 60-100 with a sinus rhythm per my interpretation. Morphine IV was ordered patient refused Tylenol and Myoflex cream Patient was given Oxy IR by mouth On reassessment the patient felt better. Diagnostics interpreted by me: The labs Independently Interpreted by myself revealed Slightly elevated creatinine. Mild hyperglycemia without DKA Imaging studies: Ultrasound negative for DVT per my independent interpretation Consultation: A consultation was placed with the hospitalist. The case was discussed and diagnostics were reviewed. The patient was evaluated in the ER for further treatment. This appears to be consistent with foot pain recurrent most likely from her neuropathy. Patient was neurovascularly and neurologically intact. Stable labs. Negative ultrasound. Labs and diagnostics were independently interpreted by myself. Patient still in severe amount of pain. Medicine was consulted and the case discussed. She will be admitted to the medical service for intractable pain. By the evaluation outlined above emergent etiologies such as DVT, septic joint, trauma, infection, CHF, as well as others were deemed relatively unlikely. The pt informed about the findings as listed above. All questions were answered and pleased with the treatment. The chart was completed utilizing [employer] Speech voice recognition software. Grammatical errors, random word insertions, pronoun errors, and incomplete sentences are an occassional consequence of this system due to software limitations, ambient noise, and hardware issues. Any formal questions or concerns about the content, text, or information contained within the body of this dictation should be directly addressed to the physician inventory assistant for clarification. Impression & Plan Acute pain of right lower extremity, Neuropathic pain Discharge Plan Visit Data Chief Complaint: Leg Injury/Pain Stated Complaint: RLE/ R foot pain ED Provider: Annamarie Guzman ED Midlevel Provider: Regla Andrews Discharge Problem: Acute pain of right lower extremity, Neuropathic pain Patient Disposition: Being Evaluated by Hospitalist Condition: Good Discharge Instructions Activity Restrictions/Additional Instructions: \\ Forms Stand Alone Forms: My [facility] [employer] Prescriptions Prescriptions: No Action epinephrine 0.3 mg/0.3 mL auto-injector 0.3 mg IM DIRECTED PRN (Reason: Anaphylaxis) Qty: 1 0RF loperamide [Anti-Diarrheal (loperamide)] 2 mg tablet 2 mg PO Q4H PRN (Reason: Loose Stool) Rx Instructions: administer after each loose stool until symptoms controlled; do not exceed 8 mg per 24 hrs lactase [Lactaid] 3,000 unit tablet 9,000 unit PO .WITH MEALS AND HS PRN (Reason: BEFORE ANY LACTOSE PRODUCTS) Rx Instructions: administer with meals and/or snacks (DME) pen needle, diabetic [BD Ultra-Fine Short Pen Needle] 31 gauge x 5/16" needle See Rx Instructions .ROUTE .MEDSUPPLY Qty: 300 3RF Rx Instructions: Inject insulin three times daily aspirin 81 mg tablet,delayed release (DR/EC) 81 mg PO QAM Qty: 90 3RF (DME) Dexcom G6 Sensor Device See Rx Instructions .ROUTE .MEDSUPPLY Qty: 3 0RF Rx Instructions: use 3 times a day and as needed to check blood glucose (DME) Dexcom G6 Transmitter Device See Rx Instructions .ROUTE .MEDSUPPLY Qty: 1 0RF Rx Instructions: use 3 times a day and as needed to check blood glucose (DME) Dexcom G6 Auto Refinisher Misc See Rx Instructions .ROUTE .MEDSUPPLY Qty: 1 0RF Rx Instructions: use 3 times a day and as needed to check blood glucose magnesium oxide 200 mg magnesium tablet 400 mg PO DAILY Qty: 60 5RF (DME) OneTouch Ultra Test Strip See Rx Instructions .Route Qty: 200 2RF Rx Instructions: Test 4 times a day ipratropium bromide 21 mcg (0.03 %) spray,non-aerosol 2 spray intranasal DAILY Qty: 30 2RF Rx Instructions: administer into each nostril montelukast [Singulair] 10 mg tablet 10 mg PO QDD Qty: 90 3RF escitalopram oxalate 20 mg tablet 20 mg PO HS Qty: 90 3RF Myrbetriq 25 mg tablet extended release 24 hr 25 mg PO HS Qty: 90 3RF clopidogrel [Plavix] 75 mg tablet 75 mg PO QAM Qty: 90 3RF (DME) lancets Misc See Rx Instructions .ROUTE .MEDSUPPLY Qty: 100 Rx Instructions: As directed nitroglycerin 0.4 mg tablet, sublingual 0.4 mg sublingual DIRECTED PRN (Reason: Chest Pain) Qty: 30 0RF Rx Instructions: PLACE ONE TABLET UNDER THE TONGUE EVERY 5 MINUTES FOR UP TO 3 DOSES OVER 15 MINUTES IF NEEDED FOR CHEST PAIN albuterol sulfate [Ventolin HFA] 90 mcg/actuation HFA aerosol inhaler 2 puff INHALATION Q4H PRN (Reason: Wheezing) Qty: 8.5 0RF hydrocodone-acetaminophen 5-325 mg tablet 1 tab PO Q8H MDD 3 GRAMS APAP/24 HOURS PRN (Reason: pain) Qty: 20 0RF Rx Instructions: foot pain scale 7-10 baclofen 10 mg tablet 10 mg PO BID PRN (Reason: muscle spasm) Qty: 60 5RF metoprolol tartrate 50 mg tablet 50 mg PO HS diphenhydramine HCl [Benadryl Allergy] 25 mg tablet 25 mg PO DAILY PRN (Reason: itching) melatonin 3 mg Tablet,Disintegrating 3 mg PO HS PRN (Reason: Insomnia) cyanocobalamin (vitamin B-12) [Vitamin B-12] 1,000 mcg tablet 1,000 mcg PO QDL oxybutynin chloride 5 mg tablet 5 mg PO TID PRN (Reason: urinary discomfort) hydrocortisone 1 % cream 1 applic topical TID PRN (Reason: Rash) Ocuvite Tablet 1 tab PO QDL oxycodone 5 mg Tablet 5 mg PO Q8H PRN (Reason: Pain) Rx Instructions: pain foot-bilateral pantoprazole 40 mg tablet,delayed release (DR/EC) 40 mg PO .BIDAC insulin glargine [Basaglar KwikPen U-100 Insulin] 100 unit/mL (3 mL) insulin pen 6 unit SUBCUT Q12 acetaminophen 325 mg Tablet 650 mg PO Q4 PRN (Reason: Pain) enoxaparin 30 mg/0.3 mL Syringe 30 mg SUBCUT DAILY cyclobenzaprine 7.5 mg Tablet 7.5 mg PO Q8 cefdinir 300 mg capsule 300 mg PO Q12 docusate sodium 100 mg Capsule 100 mg PO BID gabapentin 100 mg Capsule 200 mg PO TID cholecalciferol (vitamin D3) [Vitamin D3] 125 mcg (5,000 unit) Tablet 125 mcg PO QDL lidocaine-menthol 4-1 % Adhesive Patch,Medicated 1 patch TOPICAL HS Rx Instructions: apply to foot at bedtime and remove in morning Referrals Referrals: [facility] [Primary Care Provider] -
[2022-10-10] MEDS ORDERED: LORazepam 1 MG TAB SL STA (02:20)
[2022-10-10] MEDS ORDERED: oxyCODONE HCL IR 5 MG TAB (IMMEDIATE RELEASE) PO STA (02:20)
[2022-10-10 02:49] LABS: Albumin Globulin Ratio 1.3 (0.9-2); Albumin Level 3.9 gm/dl (3.4-5.0); BUN Creatinine Ratio 24.3 (10-20); Bilirubin,Total 0.4 mg/dl (0.2-1.0); Calcium 9.2 mg/dl (8.6-10.3); Creatinine Clr Calc Pharmacy 24.8 ml/min; Est GFR (African American) 30.7 ml/min; Est GFR (Non-African American) 26.5 ml/min; Globulin 2.9 gm/dl (2.5-4.0); Potassium 4.2 mmol/L (3.5-5.1); Total Protein 6.8 gm/dl (6.0-8.3)
[2022-10-10] MEDS ORDERED: ACETAMINOPHEN 500 MG TAB PO STA (03:07)
[2022-10-10] MEDS ORDERED: TROLAMINE SALICYLATE 10% CRM 255 APPLN/85 GM TUBE EXT STA (03:08)
[2022-10-10] MEDS ORDERED: SODIUM CHLORIDE 0.9% 1000ML 500 ML IV ONE (04:08)
[2022-10-10 04:12] LABS: Basophils # (auto) 0.05 K/uL (0-0.2); Basophils % (auto) 1.1 %; Eosinophils # (auto) 0.05 K/uL (0-0.50); Eosinophils % (auto) 1.1 %; Hematocrit (blood only) 36.7 % (37.0-47.0); Hemoglobin 11.6 g/dl (12.0-16.0); Immature Granulocytes # (auto) 0.02 K/uL (0.01-0.20); Immature Granulocytes % (auto) 0.4 %; Lymphocytes # (auto) 1.45 K/uL (1.2-3.4); Lymphocytes % (auto) 31.3 %; Mean Corpuscular Hemoglobin 24.4 pg (25.0-34.0); Mean Corpuscular Hgb Conc 31.6 g/dL (32.0-36.0); Mean Corpuscular Volume 77.1 fL (80.0-100.0); Mean Platelet Volume 10.2 fL (9.4-12.4); Monocytes # (auto) 0.36 K/uL (0.11-0.59); Monocytes % (auto) 7.8 %; Neutrophils # (auto) 2.71 K/uL (1.40-6.50); Neutrophils % (auto) 58.3 %; Platelet Count 100 K/uL (130-400); RDW Coefficient of Variation 14.4 % (11.5-14.5); RDW Standard Deviation 39.2 fL (36.4-46.3); Red Blood Count 4.76 M/uL (4.20-5.40); White Blood Count 4.64 K/ul (4.8-10.8)
--- NOTE | 2022-10-10 04:51 | History & Physical Report ---
Date of Service October 10, 2022 Assessment & Plan (1) Foot pain: Plan: Etiology unclear at this time. ?Neuropathic pain? Metatarsalgia? Drake neuroma? Pain improved after medication adminstration in the ER. Patient is very somnolent at present -Observation to medical -Maintain supplemental O2 -VBG if patient is slow to wake up -Would avoid additional IV Morphine at this time -Tylenol PRN -Oxycodone PRN -Continue home Gabapentin -Continue Flexeril -PT/OT evaluation (2) Hypertension: Plan: Blood pressure controlled - borderline low on arrival -Metoprolol 50mg po qHS -Monitor (3) T2DM (type 2 diabetes mellitus): Plan: Patient with recent weight loss following a ketogenic diet -Lantus 5u BID -ISS -Check uric acid level (4) Depression: Plan: Chronic. Stable. -Escitalopram 20mg qHS F/E/N - LR at 100mL/hr x 1L, electrolytes WNL, CC diet as tolerated Ppx - Lovenox Code -DNR/DNI Dispo - Observation to medical. History of Present Illness Chief Complaint: Right foot pain Primary Care Provider: Nicole, Health History obtained mostly from daughter at bedside. Patient somnolent after receiving Morphine. Liv Carvalho is an 81yo female with history of HTN, HLP, DM, CKD, GERD presenting with severe right foot pain. This is a recurrent issue for her - she has developed severe forefoot pain, mostly in the right but occasionally in the left - often associated with PT exercises or certain footwear. Has seen Orthopedics who thing the pain is possibly secondary to neuropathic pain. Has seen Neurology who thinks that the pain is possibly secondary to a tendon. Pain this evening developed around 18:00. Patient unable to walk due to pain. She is typically able to feel the pain come on and can take a Hydrocodone for the pain which relieves it. However, she is currently at [facility] and was given Tylenol first which did not relieve the pain. No additional complaints at this time X-ray of the right foot in 01/2022 with soft tissue edema - no fracture In the ER she was given Ativan, Morphine and Oxycodone. Very somnolent after medication - now on 2L NC, snoring considerably Allergies Allergy/AdvReac Type Severity Reaction Status Date / Time cantaloupe Allergy Severe THROAT Verified 10/04/22 20:36 CLOSES celecoxib [From Celebrex] Allergy Severe CAUSED Verified 10/04/22 20:36 STROKE melon Allergy Severe THROAT Verified 10/04/22 20:36 CLOSES meperidine Allergy Severe almost Verified 10/04/22 20:36 "closed throat" midodrine Allergy Severe "almost Verified 10/04/22 20:36 closed throat" sulfamethoxazole Allergy Severe THROAT Verified 10/04/22 20:36 CLOSED trimethoprim Allergy Severe THROAT Verified 10/04/22 20:36 CLOSED watermelon Allergy Severe THROAT Verified 10/04/22 20:36 CLOSES diphenoxylate Allergy Intermediate Unknown Verified 10/04/22 20:36 metronidazole [From Flagyl] Allergy Intermediate Hives Verified 10/04/22 20:36 DENILSON Inhibitors Allergy Unknown unknown to Verified 10/04/22 20:36 pt atropine Allergy Unknown Unknown Verified 10/04/22 20:36 carvedilol Allergy Unknown Unknown Verified 10/04/22 20:36 clonazepam [From Klonopin] Allergy Unknown Unknown Verified 10/04/22 20:36 doxycycline Allergy Unknown Unknown Verified 10/04/22 20:36 furosemide [From Lasix] Allergy Unknown Unknown Verified 10/04/22 20:36 Histamine H2 Inhibitors Allergy Unknown unknown to Verified 10/04/22 20:36 pt Iodinated Contrast Media Allergy Unknown JULY 2017 Verified 10/04/22 20:36 [facility] -- TOLERATED WITH SLOW INFUSION PER PATIENT nitrofurantoin Allergy Unknown Unknown Verified 10/04/22 20:36 phenazopyridine Allergy Unknown Unknown Verified 10/04/22 20:36 ranitidine Allergy Unknown Unknown Verified 10/04/22 20:36 repaglinide Allergy Unknown Unknown Verified 10/04/22 20:36 rosiglitazone Allergy Unknown Unknown Verified 10/04/22 20:36 tolterodine [From Detrol] Allergy Unknown Unknown Verified 10/04/22 20:36 ciprofloxacin [From Cipro] AdvReac Severe throat Verified 10/04/22 20:36 swelling citalopram [From Celexa] AdvReac Severe SEE COMMENT Verified 10/04/22 20:36 diazepam AdvReac Severe SEDATION Verified 10/04/22 20:36 LASTING TOO LONG prednisone AdvReac Severe BSG Verified 10/04/22 20:36 ELEVATED TO THE 500'S glyburide AdvReac Intermediate SEVERE Verified 10/04/22 20:36 ABDOMINAL PAIN meloxicam [From Mobic] AdvReac Intermediate SICK TO Verified 10/04/22 20:36 STOMACH metformin AdvReac Intermediate SEVERE Verified 10/04/22 20:36 ABDOMINAL PAIN oxycodone AdvReac Intermediate SEVERE Verified 10/04/22 20:36 WITHDRAWAL SYMPTOMS WHEN TRYING TO STOP TAKING paroxetine AdvReac Intermediate DID NOT Verified 10/04/22 20:36 HELP tramadol AdvReac Intermediate Vomiting Verified 10/04/22 20:36 albuterol AdvReac Unknown UNK Verified 10/04/22 20:36 carbamazepine AdvReac Unknown Unknown Verified 10/04/22 20:36 ibuprofen AdvReac Unknown Unknown Verified 10/04/22 20:36 lisinopril AdvReac Unknown UNK Verified 10/04/22 20:36 mirtazapine AdvReac Unknown Unknown Verified 10/04/22 20:36 olanzapine AdvReac Unknown Unknown Verified 10/04/22 20:36 rofecoxib AdvReac Unknown Unknown Verified 10/04/22 20:36 valproic acid AdvReac Unknown Unknown Verified 10/04/22 20:36 Home Medications Medication Instructions Recorded Confirmed Type lancets #100 ea 03/03/20 10/10/22 History epinephrine 0.3 mg/0.3 mL 0.3 mg (0.3 mL) IM DIRECTED PRN 05/03/21 10/10/22 Rx injection, auto-injector Anaphylaxis #1 ea diphenhydramine HCl 25 mg tablet 25 mg PO DAILY PRN itching 05/19/21 10/10/22 History (Benadryl Allergy) melatonin 3 mg disintegrating 3 mg PO HS PRN Insomnia 07/22/21 10/10/22 History tablet cyanocobalamin (vitamin B-12) 1,000 mcg PO QDL 02/16/22 10/10/22 History 1,000 mcg tablet (Vitamin B-12) lactase 3,000 unit tablet (Lactaid) 9,000 unit PO .WITH MEALS AND HS 03/03/22 10/10/22 History PRN BEFORE ANY LACTOSE PRODUCTS loperamide 2 mg tablet 2 mg PO Q4H PRN Loose Stool 03/03/22 10/10/22 History (Anti-Diarrheal (loperamide)) hydrocortisone 1 % topical cream 1 applic topical TID PRN Rash 03/31/22 10/10/22 History oxybutynin chloride 5 mg tablet 5 mg PO TID PRN urinary discomfort 03/31/2202/22 History pen needle, diabetic 31 gauge x #300 ea 04/19/22 10/10/22 Rx 5/16" (BD Ultra-Fine Short Pen Needle) albuterol sulfate 90 mcg/actuation 2 puff inhalation Q4H PRN Wheezing 05/01/22 10/10/22 Rx aerosol inhaler (Ventolin HFA) #8.5 grams nitroglycerin 0.4 mg sublingual 0.4 mg sublingual DIRECTED PRN 05/01/22 10/10/22 Rx tablet Chest Pain #30 tabs aspirin 81 mg tablet,delayed 81 mg PO QAM #90 tabs 05/09/22 10/10/22 Rx release blood-glucose sensor (Dexcom G6 #3 ea 05/23/22 10/10/22 Rx Sensor device) blood-glucose transmitter (Dexcom #1 ea 05/23/22 10/10/22 Rx G6 Transmitter device) blood-glucose meter,continuous #1 ea 05/24/22 10/10/22 Rx (Dexcom G6 Event Marketing Specialist) baclofen 10 mg tablet 10 mg PO BID PRN muscle spasm #60 07/14/22 10/10/22 Rx tabs magnesium oxide 400 mg PO DAILY #60 tabs 07/27/22 10/10/22 Rx blood sugar diagnostic (OneTouch #200 ea 07/28/22 10/10/22 Rx Ultra Test strips) hydrocodone 5 mg-acetaminophen 325 1 tab PO Q8H PRN pain #20 tabs 08/11/22 10/10/22 Rx mg tablet ipratropium bromide 21 mcg (0.03 2 spray intranasal DAILY #30 mL 10/02/22 10/10/22 Rx %) nasal spray metoprolol tartrate 50 mg tablet 50 mg PO HS 10/04/22 10/10/22 History clopidogrel 75 mg tablet (Plavix) 75 mg PO QAM #90 tabs 10/09/22 10/10/22 Rx escitalopram oxalate 20 mg tablet 20 mg PO HS #90 tabs 10/09/22 10/10/22 Rx mirabegron 25 mg tablet,extended 25 mg PO HS #90 tabs 10/09/22 10/10/22 Rx release 24 hr (Myrbetriq) montelukast 10 mg tablet 10 mg PO QDD #90 tabs 10/09/22 10/10/22 Rx (Singulair) acetaminophen 325 mg tablet 650 mg PO Q4 PRN Pain 10/10/22 10/10/22 History cefdinir 300 mg capsule 300 mg PO Q12 10/10/22 10/10/22 History cholecalciferol (vitamin D3) 125 125 mcg PO QDL 10/10/22 10/10/22 History mcg (5,000 unit) tablet (Vitamin D3) cyclobenzaprine 7.5 mg tablet 7.5 mg PO Q8 10/10/22 10/10/22 History docusate sodium 100 mg capsule 100 mg PO BID 10/10/22 10/10/22 History enoxaparin 30 mg/0.3 mL 30 mg subcut DAILY 10/10/22 10/10/22 History subcutaneous syringe gabapentin 100 mg capsule 200 mg PO TID 10/10/22 10/10/22 History insulin glargine 100 unit/mL (3 6 unit subcut Q12 10/10/22 10/10/22 History mL) subcutaneous pen (Basaglar KwikPen U-100 Insulin) lidocaine 4 %-menthol 1 % topical 1 patch topical HS 10/10/22 10/10/22 History patch oxycodone 5 mg tablet 5 mg PO Q8H PRN Pain 10/10/22 10/10/22 History pantoprazole 40 mg tablet,delayed 40 mg PO .BIDAC 10/10/22 10/10/22 History release vitamin A-vitamin C-vit E-min 1 tab PO QDL 10/10/22 10/10/22 History tablet Past Med/Surg History Medical History Acute hypercapnic respiratory failure 03/2019 [facility] (acute kidney injury) Anxiety and depression Asthma Per pulmonology 10/10/19, likely NOT asthma but chronic aspiration. Flovert and Spiriva discontinued, pt to use albuterol PRN Breast cancer UNSURE WHICH SIDE WAS CANCER. Chronic back pain Chronic kidney disease, stage 3a Chronic neck pain Chronic pulmonary aspiration 2/2 h/o CVA, [facility]. Diabetic peripheral neuropathy associated with type 2 diabetes mellitus Dyslipidemia Encephalopathy Fusion of spine GERD (gastroesophageal reflux disease) History of benign brain tumor History of dysphagia ESOPHAGEAL DILATION IN PAST History of esophageal dilatation History of spinal stenosis History of stroke History of uterine cancer Endometrial biopsy revealed endometrioid adenocarcinoma. Status post total abdominal hysterectomy and bilateral salpingo-oophorectomy. Status post completion of radiation therapy with external beam radiation as well as 2 HDR treatments completed 08/15/2013 Hypertension Left pontine stroke 01/2019, on Plavix, following with [facility] neurology. Left pontine stroke Leukopenia Lymphedema of right arm CHRONIC, 2/2 MASTECTOMY Meningioma R temporal lobe, neurology monitoring. Microalbuminuria due to type 2 diabetes mellitus Microcytic anemia Morbid obesity Neuropathy Numb feet, painful radiculopathy in hands from cervical radiculopathy Obesity hypoventilation syndrome Osteoarthritis PAC (premature atrial contraction) PVC (premature ventricular contraction) Sensorineural hearing loss (SNHL) of both ears Severe obstructive sleep apnea CPAP, pt reports compliance T2DM (type 2 diabetes mellitus) Uterine cancer S/P RICHARD BSO WITH RADIATION Weakness Surgical History Difficult airway for intubation History of cardiac catheterization NO STENTS History of cataract surgery BILATERAL History of cholecystectomy History of colonoscopy History of esophagogastroduodenoscopy (EGD) History of knee surgery ARTHROSCOPY LEFT KNEE History of mastectomy BILATERAL History of total abdominal hysterectomy BSO S/P hysterectomy Family History Mother Diabetes Myocardial infarction Hypertension Family history of diabetes mellitus Brother Family history of diabetes mellitus Sister Osteoporosis Arthritis Denies family history of Ovarian cancer Prostate cancer Breast cancer Colorectal cancer Social History Smoking Status: Former smoker Tobacco Type: Cigarettes Age Started Using Tobacco: 15; Age Quit Using Tobacco: 30; packs per day: 1; Second Hand Exposure: No; Do You Dip or Chew Tobacco: No; Hx Alcohol Use: No Hx Substance Use: No Preferred Language: Ivorian Communication Ability: Effective Communication Ability Comment: per [facility] pt signs own consents Visual Impairment: Limited Hearing Ability: Hard of Hearing Project Management Instructor Required: No Beliefs That Will Affect Care: None marital status: / Current Living Situation: Personal Care Facility Current Living Situation Comment: [facility] current occupational status: retired 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 Feels Safe at Home: Yes Childhood Exposure to Second-Hand Smoke: No Diet: low carbohydrate Diet Comment: low carb Dental Care, Regularly: Yes Physical Activity Frequency: Does not Exercise Seatbelt Use: always Sunscreen Use: No Assistive Devices: Cane and Walker Review of Systems Review of Systems: All systems reviewed & are unremarkable except as noted in HPI & below Physical Exam Physical Exam: General: patient resting comfortably, NAD, non-toxic in appearance, AA&O x 4 Skin: warm, dry, intact, no rashes or lesions HEENT: NC/AT, PERRL, EOMI, anicteric sclera, conjunctiva without injection, external ear normal to inspection and nontender, nares patent, moist mucus membranes, dentition intact, no oropharyngeal lesions, neck supple, trachea midline, no LAD, no thyromegaly, no JVD Heart: +S1/S2, regular, no m/r/g Lungs: equal air entry bilaterally, no rales/rhonchi/wheezes Abd: +BS, soft, NT/ND, no masses/organomegaly/ascites Ext: warm, 2+ pulses in UE/LE bilaterally, no clubbing/cyanosis or edema, pain with palpation of MTP joints on right foot Neuro: nonfocal, patient AA&O x 4, speech intact, no facial droop, moving all extremities on command with equal strength 5/5 Results & Data Results & Data Vital Signs (Past 12 Hours) Vital Signs Temp Pulse Resp BP Pulse Ox O2 Del Method O2 Flow Rate 10/10/22 03:00 59 L 15 96 Nasal Cannula 2 10/10/22 02:30 63 19 89 L Room Air 10/10/22 02:22 36.4 C L 65 22 98/75 L 95 Room Air 10/10/22 02:06 61 Laboratory Results Laboratory Results WBC 4.64 K/ul (4.8-10.8) L 10/10/22 02:20 RBC 4.76 M/uL (4.20-5.40) 10/10/22 02:20 Hgb 11.6 g/dl (12.0-16.0) L 10/10/22 02:20 Hct 36.7 % (37.0-47.0) L 10/10/22 02:20 MCV 77.1 fL (80.0-100.0) L 10/10/22 02:20 MCH 24.4 pg (25.0-34.0) L 10/10/22 02:20 MCHC 31.6 g/dL (32.0-36.0) L 10/10/22 02:20 RDW Std Deviation 39.2 fL (36.4-46.3) 10/10/22 02:20 RDW Coeff of Tim 14.4 % (11.5-14.5) 10/10/22 02:20 Plt Count 100 K/uL (130-400) L 10/10/22 02:20 MPV 10.2 fL (9.4-12.4) 10/10/22 02:20 Immature Gran % (Auto) 0.4 % 10/10/22 02:20 Neut % (Auto) 58.3 % 10/10/22 02:20 Lymph % (Auto) 31.3 % 10/10/22 02:20 Rusk % (Auto) 7.8 % 10/10/22 02:20 Eos % (Auto) 1.1 % 10/10/22 02:20 Baso % (Auto) 1.1 % 10/10/22 02:20 Neut # (Auto) 2.71 K/uL (1.40-6.50) 10/10/22 02:20 Lymph # (Auto) 1.45 K/uL (1.2-3.4) 10/10/22 02:20 Rusk # (Auto) 0.36 K/uL (0.11-0.59) 10/10/22 02:20 Eos # (Auto) 0.05 K/uL (0-0.50) 10/10/22 02:20 Baso # (Auto) 0.05 K/uL (0-0.2) 10/10/22 02:20 Immature Gran # (Auto) 0.02 K/uL (0.01-0.20) 10/10/22 02:20 Sodium 139 mmol/L (136-145) 10/10/22 02:20 Potassium 4.2 mmol/L (3.5-5.1) 10/10/22 02:20 Chloride 105 mmol/L (98-107) 10/10/22 02:20 Carbon Dioxide 25 mmol/L (21-32) 10/10/22 02:20 Anion Gap 9 (3-11) 10/10/22 02:20 BUN 43 mg/dl (6-23) H 10/10/22 02:20 Creatinine 1.77 mg/dl (0.6-1.2) H 10/10/22 02:20 Est Cr Clr Drug Dosing 24.8 ml/min 10/10/22 02:20 Est GFR ( Amer) 30.7 ml/min 10/10/22 02:20 Est GFR (Non-Af Amer) 26.5 ml/min 10/10/22 02:20 BUN/Creatinine Ratio 24.3 (10-20) H 10/10/22 02:20 Glucose 147 mg/dl (70-99(Fasting)) H 10/10/22 02:20 Calcium 9.2 mg/dl (8.6-10.3) 10/10/22 02:20 Total Bilirubin 0.4 mg/dl (0.2-1.0) 10/10/22 02:20 AST 15 U/L (13-39) 10/10/22 02:20 ALT 9 U/L (7-52) 10/10/22 02:20 Alkaline Phosphatase 63 U/L (34-104) 10/10/22 02:20 Total Creatine Kinase 73 U/L (26-192) 10/10/22 02:20 Total Protein 6.8 gm/dl (6.0-8.3) 10/10/22 02:20 Albumin 3.9 gm/dl (3.4-5.0) 10/10/22 02:20 Globulin 2.9 gm/dl (2.5-4.0) 10/10/22 02:20 Albumin/Globulin Ratio 1.3 (0.9-2) 10/10/22 02:20 SARS-CoV-2, RNA, NAAT NEGATIVE (NEGATIVE) 10/10/22 04:10 PG Care Time/CCT Total # of Minutes Spent Total Time Spent with Patient: Total time spent is greater than 50% in coordination of care (as documented) at patient's floor/unit and/or counseling patient: Coding Level of Care Code 65230 INT INP/OBS CARE 2/55MIN Diagnoses Foot pain M79.673 Hypertension I10 Hypertension type: unspecified T2DM (type 2 diabetes mellitus) E11.9 Depression F32.9 (2) Hypertension Hypertension type: unspecified Qualified Code(s): I10 - Essential (primary) hypertension
[2022-10-10] MEDS ORDERED: BACLOFEN 10 MG TAB PO PRN (06:38)
[2022-10-10] MEDS ORDERED: ALBUTEROL HFA 8 GM INHALER INH PRN (06:38)
[2022-10-10] MEDS ORDERED: GLUCAGON FOR INJ 1 MG VIAL SQ PRN (06:38)
[2022-10-10] MEDS ORDERED: oxyBUTYnin chloride 5 MG TAB PO PRN (06:38)
[2022-10-10] MEDS ORDERED: DEXTROSE 50% 50 ML SYRINGE IV PRN (06:38)
[2022-10-10] MEDS ORDERED: GLUCOSE 10 TAB/TUBE PO PRN (06:38)
[2022-10-10] MEDS ORDERED: GLUCOSE 40% GEL 15 GM TUBE PO PRN (06:38)
[2022-10-10] MEDS ORDERED: LACTATED RINGER'S 1,000 ML IV SCH (06:38)
[2022-10-10] MEDS ORDERED: CARBOHYDRATES FOR HYPOGLYCEMIA PO PRN (06:38)
--- NOTE | 2022-10-10 06:47 | Ultrasound Report ---
ULTRASOUND RIGHT LOWER EXTREMITY VENOUS CLINICAL HISTORY: Right leg pain. COMPARISON STUDY: Bilateral lower extremity venous ultrasound dated 03/27/2013. TECHNIQUE: Real-time, grayscale, and color Doppler sonography of the deep veins of the right lower ex tremity was performed from the inguinal crease to the calf. Compression and augmentation were utilize d. FINDINGS: There is no sonographic evidence of deep venous thrombosis identified in the right lower ex tremity. The common femoral, superficial femoral, and popliteal veins are patent and normally los sible. The greater saphenous vein and the profunda femoris vein at the junction with the common femor al vein are clear. The visualized calf veins are patent. IMPRESSION: There is no sonographic evidence of deep venous thrombosis identified in the right lower extremity. ACT 112: Negative or not required by law. Electronically signed by: Joey Patterson M.D. 10/10/2022 6:44 AM
[2022-10-10 07:16] LABS: Magnesium 1.8 mg/dl (1.7-2.4); Phosphorus 4.6 mg/dl (2.5-4.9)
[2022-10-10] MEDS: ASPIRIN 81 MG ECTAB PO SCH (08:02)
[2022-10-10] MEDS: DOCUSATE SODIUM 100 MG CAP PO SCH ×2 (08:02→21:01)
[2022-10-10] MEDS: PANTOprazole 40 MG TAB PO SCH ×2 (08:02→17:37)
[2022-10-10] MEDS: CLOPIDOGREL BISULFATE 75 MG TAB PO SCH (08:02)
[2022-10-10] MEDS: LANTUS PER UNIT CHARGE SQ SCH ×2 (08:27→21:38)
[2022-10-10] MEDS: INSULIN ASPART PER UNIT CHARGE SC SCH ×4 (08:27→20:07)
[2022-10-10] MEDS: ACETAMINOPHEN 500 MG TAB PO SCH ×3 (08:29→21:00)
[2022-10-10] MEDS: oxyCODONE HCL IR 5 MG TAB (IMMEDIATE RELEASE) PO PRN ×2 (09:07→17:42)
[2022-10-10] MEDS: CYCLOBENZAPRINE HCL 5 MG TAB PO SCH ×3 (09:08→21:00)
[2022-10-10] MEDS: GABAPENTIN 100 MG CAP PO SCH ×3 (09:08→21:01)
[2022-10-10] MEDS: IPRATROPIUM BROMIDE NASAL SPRAY 0.06% 15ML NAE SCH (09:08)
[2022-10-10] MEDS: ENOXAPARIN INJ 30 MG/0.3 ML SYR SQ SCH (09:08)
--- NOTE | 2022-10-10 11:27 | Hospitalist Progress Note ---
Date of Service October 10, 2022 Assessment & Plan (1) Foot pain: Plan: Pt is a 81 yo female with PMH of DM, HLD, GERD, CKD, and CVA presenting due to foot pain. Pt was recently admitted 10/04-10/06 for stroke-like symptoms caused by RIND vs. dehydration. Acute on chronic foot pain - unsure of etiology although issue appears to be chronic as pt has seen neuro and PCP for these complaints- recent neuro note 09/12 relays that pt was referre d to podiatry for further eval - XR from 01/2022 showed soft tissue swelling w/o fracture - US neg for DVT - neuropathic pain vs metatarsalgia vs. Drake neuroma; uric acid WNL - given oxycodone 5 mg, ativan 1 mg, and 1 hr later 4 mg morphine which seems to have relieved her pain - would avoid further narcotics at this time d/t pt's somnolence - continue tylenol PRN, home gabapentin and baclofen- may consider increase in pt's gabapentin - PT/OT consulted- pt should return to [facility] upon discharge for further rehab HTN - continue home metoprolol DM - hold home regimen - lantus 5u BID w/ ISS Depression - continue escitalopram 20mg qHS FEN: s/p 1L LR, carb consistent diet VTE ppx: Lovenox Code: DNR/DNI Dispo: observation; plan for d/c back to [facility] once stable (2) Hypertension: (3) T2DM (type 2 diabetes mellitus): (4) Depression: Admission and Anticipated Discharge Date Admission Date: ATTESTATION I also saw the patient and confirmed chiu portions of the history and exam. I agree with the impression and plan in the resident documentation, and as summarized below. The patient was pretty somnolent/sleepy for most of the day. I was able to see her late this afternoon when her daughter was at bedside. Patient describes a shocklike pain in the right forefoot, just proximal to the base of the toes. This pain will happen both at rest, and with weightbearing. The daughter states that when she feels it coming on, taking a "muscle relaxer" will sometimes lessen or even tej the symptoms. EXAM 149/54, 68, 18, 36.6, 92% on room air She is awake and oriented. Somewhat thickened speech subsequent to previous CVA, although it is easily understood Focused exam of the right foot -no ecchymosis, no obvious swelling. There is some tenderness across the right forefoot with my palpation, although not nearly to the degree of discomfort that she gets with the intermittent " spasms," several which occurred during my exam. DATA Labs WBC 4.64, hemoglobin 11.6 BUN 43, creatinine 1.77 IMPRESSION & PLAN Right foot pain, uncertain etiology Uncertain etiology, question neuropathic pain; always has a spasm-like quality that could be related to prior CVA, or her known lumbar spinal stenosis Discussed with patient and daughter excluding " local" etiology with MRI of the right foot; if this is unremarkable (except for expected degenerative changes), this would focus efforts more on the neuropathic/radicular possibilities Additional per resident documentation Subjective Pt very sleepy this AM. She is awake when I speak to her and then promptly falls back asleep. She states her foot does not hurt anymore. Review of Systems Review of Systems: As per HPI Physical Exam Physical Exam: Constitutional: well appearing, no acute distress HEENT: normocephalic, no conjunctival injection CV: RRR, no murmur, no LE edema Respiratory: CTA bilaterally. No rhonchi, wheezes, or crackles. No increased work of breathing Skin: warm, dry, no rashes Psych: sleepy Results & Data Results & Data Vital Signs (Past 12 Hours) Vital Signs Temp Pulse Pulse Resp BP BP Pulse Ox 10/10/22 11:00 36.5 C 57 L 18 138/79 54 L 10/10/22 10:16 10/10/22 07:16 68 10/10/22 06:45 36.4 C L 63 20 141/68 H 97 10/10/22 06:23 10/10/22 05:42 67 10/10/22 06:11 61 18 164/61 H 99 10/10/22 03:00 59 L 15 96 10/10/22 02:30 63 19 89 L 10/10/22 02:22 36.4 C L 65 22 98/75 L 95 10/10/22 02:06 61 O2 Del Method O2 Flow Rate 10/10/22 11:00 Nasal Cannula 2 10/10/22 10:16 Nasal Cannula 2 10/10/22 07:16 10/10/22 06:45 Nasal Cannula 2 10/10/22 06:23 Nasal Cannula 2 10/10/22 05:42 10/10/22 06:11 Nasal Cannula 2 10/10/22 03:00 Nasal Cannula 2 10/10/22 02:30 Room Air 10/10/22 02:22 Room Air 10/10/22 02:06 Resident Activity Tracking Resident Involvement: Resident Care Provided Care Provided: Adult Hospital Medicine (2) Hypertension Hypertension type: unspecified Qualified Code(s): I10 - Essential (primary) hypertension
[2022-10-10] MEDS: MONTELUKAST SODIUM 10 MG TABLET PO SCH (17:38)
--- NOTE | 2022-10-10 19:15 | Magnetic Resonance Report ---
MR foot RT w/o con CLINICAL HISTORY: Sharp dorsal foot pain TECHNIQUE: Multiplanar multisequence MR images of the right foot were obtained. Comparison: Comparison is made to right foot radiograph 02/28/2022 FINDINGS: Exam is limited by patient motion. Bones: No fractures are present. Tendons: Unremarkable Soft tissue: Mild edema is seen at the lateral ankle without evidence of fluid collection. IMPRESSION: No acute abnormalities and in particular no evidence of osteomyelitis. Mild edema is seen in the late ral ankle. ACT 112: Negative or not required by law. Electronically signed by: Reji Jones M.D. 10/10/2022 7:13 PM
[2022-10-10] MEDS: ESCITALOPRAM OXALATE 20 MG TAB PO SCH (21:00)
[2022-10-10] MEDS: METOPROLOL TARTRATE 50 MG TAB PO SCH (21:01)
[2022-10-11] MEDS: CYCLOBENZAPRINE HCL 5 MG TAB PO SCH ×3 (06:03→21:25)
[2022-10-11] MEDS: ACETAMINOPHEN 500 MG TAB PO SCH ×3 (06:04→21:24)
[2022-10-11 06:10] LABS: Hematocrit (blood only) 36.6 % (37.0-47.0); Hemoglobin 11.4 g/dl (12.0-16.0); Mean Corpuscular Hemoglobin 24.2 pg (25.0-34.0); Mean Corpuscular Hgb Conc 31.1 g/dL (32.0-36.0); Mean Corpuscular Volume 77.7 fL (80.0-100.0); Mean Platelet Volume 9.9 fL (9.4-12.4); Platelet Count 110 K/uL (130-400); RDW Coefficient of Variation 14.3 % (11.5-14.5); RDW Standard Deviation 39.8 fL (36.4-46.3); Red Blood Count 4.71 M/uL (4.20-5.40); White Blood Count 4.59 K/ul (4.8-10.8)
[2022-10-11 06:22] LABS: BUN Creatinine Ratio 24.8 (10-20); Calcium 8.6 mg/dl (8.6-10.3); Est GFR (Non-African American) 38.8 ml/min; Potassium 4.4 mmol/L (3.5-5.1)
[2022-10-11] MEDS: ENOXAPARIN INJ 30 MG/0.3 ML SYR SQ SCH (08:32)
[2022-10-11] MEDS: IPRATROPIUM BROMIDE NASAL SPRAY 0.06% 15ML NAE SCH (08:32)
[2022-10-11] MEDS: LANTUS PER UNIT CHARGE SQ SCH ×2 (08:33→21:26)
[2022-10-11] MEDS: CLOPIDOGREL BISULFATE 75 MG TAB PO SCH (08:33)
[2022-10-11] MEDS: DOCUSATE SODIUM 100 MG CAP PO SCH ×3 (08:33→21:24)
[2022-10-11] MEDS: ASPIRIN 81 MG ECTAB PO SCH (08:33)
[2022-10-11] MEDS: PANTOprazole 40 MG TAB PO SCH ×2 (08:33→18:27)
[2022-10-11] MEDS: GABAPENTIN 100 MG CAP PO SCH ×3 (08:33→21:24)
[2022-10-11] MEDS: INSULIN ASPART PER UNIT CHARGE SC SCH ×4 (08:34→21:25)
--- NOTE | 2022-10-11 09:19 | Discharge Summary ---
Date of Service October 11, 2022 Admission HPI Per Admitting Provider History obtained mostly from daughter at bedside. Patient somnolent after receiving Morphine. Liv Carvalho is an 81yo female with history of HTN, HLP, DM, CKD, GERD presenting with severe right foot pain. This is a recurrent issue for her - she has developed severe forefoot pain, mostly in the right but occasionally in the left - often associated with PT exercises or certain footwear. Has seen Orthopedics who thing the pain is possibly secondary to neuropathic pain. Has seen Neurology who thinks that the pain is possibly secondary to a tendon. Pain this evening developed around 18:00. Patient unable to walk due to pain. She is typically able to feel the pain come on and can take a Hydrocodone for the pain which relieves it. However, she is currently at [facility] and was given Tylenol first which did not relieve the pain. No additional complaints at this time X-ray of the right foot in 01/2022 with soft tissue edema - no fracture In the ER she was given Ativan, Morphine and Oxycodone. Very somnolent after medication - now on 2L NC, snoring considerably Admission Exam Per Admitting Provider General: patient resting comfortably, NAD, non-toxic in appearance, AA&O x 4 Skin: warm, dry, intact, no rashes or lesions HEENT: NC/AT, PERRL, EOMI, anicteric sclera, conjunctiva without injection, external ear normal to inspection and nontender, nares patent, moist mucus membranes, dentition intact, no oropharyngeal lesions, neck supple, trachea midline, no LAD, no thyromegaly, no JVD Heart: +S1/S2, regular, no m/r/g Lungs: equal air entry bilaterally, no rales/rhonchi/wheezes Abd: +BS, soft, NT/ND, no masses/organomegaly/ascites Ext: warm, 2+ pulses in UE/LE bilaterally, no clubbing/cyanosis or edema, pain with palpation of MTP joints on right foot Neuro: nonfocal, patient AA&O x 4, speech intact, no facial droop, moving all extremities on command with equal strength 5/5 Principal Diagnosis acute on chronic foot pain Discharge Exam Constitutional: well appearing, no acute distress HEENT: normocephalic, no conjunctival injection CV: regular rhythm, regular rate, no murmur, right non pitting LE edema Respiratory: Clear to auscultation bilaterally. No rhonchi, wheezes, or crackles. No increased work of breathing MSK: no gross deformities noted. No foot pain with palpation. Skin: warm, dry, no rashes Neuro: alert, oriented, slow to answer questions but answers appropriately Discharge Data Allergies Allergy/AdvReac Type Severity Reaction Status Date / Time cantaloupe Allergy Severe THROAT Verified 10/04/22 20:36 CLOSES celecoxib [From Celebrex] Allergy Severe CAUSED Verified 10/04/22 20:36 STROKE melon Allergy Severe THROAT Verified 10/04/22 20:36 CLOSES meperidine Allergy Severe almost Verified 10/04/22 20:36 "closed throat" midodrine Allergy Severe "almost Verified 10/04/22 20:36 closed throat" sulfamethoxazole Allergy Severe THROAT Verified 10/04/22 20:36 CLOSED trimethoprim Allergy Severe THROAT Verified 10/04/22 20:36 CLOSED watermelon Allergy Severe THROAT Verified 10/04/22 20:36 CLOSES diphenoxylate Allergy Intermediate Unknown Verified 10/04/22 20:36 metronidazole [From Flagyl] Allergy Intermediate Hives Verified 10/04/22 20:36 DENILSON Inhibitors Allergy Unknown unknown to Verified 10/04/22 20:36 pt atropine Allergy Unknown Unknown Verified 10/04/22 20:36 carvedilol Allergy Unknown Unknown Verified 10/04/22 20:36 clonazepam [From Klonopin] Allergy Unknown Unknown Verified 10/04/22 20:36 doxycycline Allergy Unknown Unknown Verified 10/04/22 20:36 furosemide [From Lasix] Allergy Unknown Unknown Verified 10/04/22 20:36 Histamine H2 Inhibitors Allergy Unknown unknown to Verified 10/04/22 20:36 pt Iodinated Contrast Media Allergy Unknown JULY 2017 Verified 10/04/22 20:36 [facility] -- TOLERATED WITH SLOW INFUSION PER PATIENT nitrofurantoin Allergy Unknown Unknown Verified 10/04/22 20:36 phenazopyridine Allergy Unknown Unknown Verified 10/04/22 20:36 ranitidine Allergy Unknown Unknown Verified 10/04/22 20:36 repaglinide Allergy Unknown Unknown Verified 10/04/22 20:36 rosiglitazone Allergy Unknown Unknown Verified 10/04/22 20:36 tolterodine [From Detrol] Allergy Unknown Unknown Verified 10/04/22 20:36 ciprofloxacin [From Cipro] AdvReac Severe throat Verified 10/04/22 20:36 swelling citalopram [From Celexa] AdvReac Severe SEE COMMENT Verified 10/04/22 20:36 diazepam AdvReac Severe SEDATION Verified 10/04/22 20:36 LASTING TOO LONG prednisone AdvReac Severe BSG Verified 10/04/22 20:36 ELEVATED TO THE 500'S glyburide AdvReac Intermediate SEVERE Verified 10/04/22 20:36 ABDOMINAL PAIN meloxicam [From Mobic] AdvReac Intermediate SICK TO Verified 10/04/22 20:36 STOMACH metformin AdvReac Intermediate SEVERE Verified 10/04/22 20:36 ABDOMINAL PAIN oxycodone AdvReac Intermediate SEVERE Verified 10/04/22 20:36 WITHDRAWAL SYMPTOMS WHEN TRYING TO STOP TAKING paroxetine AdvReac Intermediate DID NOT Verified 10/04/22 20:36 HELP tramadol AdvReac Intermediate Vomiting Verified 10/04/22 20:36 albuterol AdvReac Unknown UNK Verified 10/04/22 20:36 carbamazepine AdvReac Unknown Unknown Verified 10/04/22 20:36 ibuprofen AdvReac Unknown Unknown Verified 10/04/22 20:36 lisinopril AdvReac Unknown UNK Verified 10/04/22 20:36 mirtazapine AdvReac Unknown Unknown Verified 10/04/22 20:36 olanzapine AdvReac Unknown Unknown Verified 10/04/22 20:36 rofecoxib AdvReac Unknown Unknown Verified 10/04/22 20:36 valproic acid AdvReac Unknown Unknown Verified 10/04/22 20:36 Consultations 10/10/22 04:28 ED Decision to Admit Stat Ordered Studies 10/10/22 04:01 US venous doppler LE RT Stat IMPRESSION: There is no sonographic evidence of deep venous thrombosis identified in the right lower extremity. 10/10/22 17:14 MRI Foot [MR foot RT w/o con] Routine IMPRESSION: No acute abnormalities and in particular no evidence of osteomyelitis. Mild edema is seen in the lateral ankle. Hospital Course (1) Foot pain: Pt is a 81 yo female with PMH of DM, HLD, GERD, CKD, and CVA presenting due to foot pain. Pt was recently admitted 10/04-10/06 for stroke-like symptoms caused by RIND vs. dehydration. Acute on chronic foot pain - unsure of etiology although issue appears to be chronic as pt has seen neuro and PCP for these complaints- recent neuro note 09/12 relays that pt was referred to podiatry for further eval - XR from 01/2022 showed soft tissue swelling w/o fracture - US neg for DVT; MRI neg for fracture, showed some lateral ankle swelling - neuropathic pain vs metatarsalgia vs. Drake neuroma; uric acid WNL - continue tylenol PRN, home gabapentin and baclofen- may consider increase in pt's gabapentin if thought that nerve pain is a large contributor - per pt's daughter, baclofen at the beginning of an episode has thwarted any worsening of the pain- would recommend continuing this HTN - continue home metoprolol DM - may resume home regimen Depression - continue escitalopram 20mg qHS FEN: carb consistent diet VTE ppx: Lovenox while hospitalized Code: DNR/DNI Dispo: [facility] (2) Hypertension: (3) T2DM (type 2 diabetes mellitus): (4) Depression: Total Time Total Time Spent Total Time Spent (In Minutes): as per attending attestation Discharge Plan Discharge Items Patient Disposition: Transfer Inpatient Rehab Fac Reason For Visit: FOOT PAIN Discharge Diagnosis: acute on chronic foot pain Condition on Discharge: Good Activity: Per Instructions section Non-emergency contact: Primary Care Provider Call non-emergency contact if: you have any medication questions, your symptoms worsen and your pain is not controlled Follow-up/Referrals: [facility] [Primary Care Provider] - Diet: Carb Consistent or DM2 Addtl Attending Provider Instructions: Pt is a 81 yo female with PMH of DM, HLD, GERD, CKD, and CVA presenting due to foot pain. Pt was recently admitted 10/04-10/06 for stroke-like symptoms caused by RIND vs. dehydration. Acute on chronic foot pain - unsure of etiology although issue appears to be chronic as pt has seen neuro and PCP for these complaints- recent neuro note 09/12 relays that pt was referred to podiatry for further eval - XR from 01/2022 showed soft tissue swelling w/o fracture - US neg for DVT; MRI neg for fracture, showed some lateral ankle swelling - neuropathic pain vs metatarsalgia vs. Drake neuroma; uric acid WNL - continue tylenol PRN, home gabapentin and baclofen- may consider increase in pt's gabapentin if thought that nerve pain is a large contributor - per pt's daughter, baclofen at the beginning of an episode has thwarted any worsening of the pain- would recommend continuing this HTN - continue home metoprolol DM - may resume home regimen Depression - continue escitalopram 20mg qHS FEN: carb consistent diet VTE ppx: Lovenox while hospitalized Code: DNR/DNI Dispo: [facility] Pending Studies at Discharge: No Stand-Alone Forms: My [facility] [employer] Skilled Items Patient informed of condition?: Yes DNR: Yes Discharge Level of Care: Acute rehab Communicable Disease: No Discharge Prognosis: Stable Lines: None Urinary Catheter: No Medications and DC Order Prescriptions: Continued epinephrine 0.3 mg/0.3 mL auto-injector 0.3 mg IM DIRECTED PRN (Reason: Anaphylaxis) Qty: 1 0RF loperamide [Anti-Diarrheal (loperamide)] 2 mg tablet 2 mg PO Q4H PRN (Reason: Loose Stool) Rx Instructions: administer after each loose stool until symptoms controlled; do not exceed 8 mg per 24 hrs lactase [Lactaid] 3,000 unit tablet 9,000 unit PO .WITH MEALS AND HS PRN (Reason: BEFORE ANY LACTOSE PRODUCTS) Rx Instructions: administer with meals and/or snacks (DME) pen needle, diabetic [BD Ultra-Fine Short Pen Needle] 31 gauge x 5/16" needle See Rx Instructions .ROUTE .MEDSUPPLY Qty: 300 3RF Rx Instructions: Inject insulin three times daily aspirin 81 mg tablet,delayed release (DR/EC) 81 mg PO QAM Qty: 90 3RF (DME) Dexcom G6 Sensor Device See Rx Instructions .ROUTE .MEDSUPPLY Qty: 3 0RF Rx Instructions: use 3 times a day and as needed to check blood glucose (DME) Dexcom G6 Transmitter Device See Rx Instructions .ROUTE .MEDSUPPLY Qty: 1 0RF Rx Instructions: use 3 times a day and as needed to check blood glucose (DME) Dexcom G6 Special Education Coordinator Misc See Rx Instructions .ROUTE .MEDSUPPLY Qty: 1 0RF Rx Instructions: use 3 times a day and as needed to check blood glucose magnesium oxide 200 mg magnesium tablet 400 mg PO DAILY Qty: 60 5RF (DME) OneTouch Ultra Test Strip See Rx Instructions .Route Qty: 200 2RF Rx Instructions: Test 4 times a day ipratropium bromide 21 mcg (0.03 %) spray,non-aerosol 2 spray intranasal DAILY Qty: 30 2RF Rx Instructions: administer into each nostril montelukast [Singulair] 10 mg tablet 10 mg PO QDD Qty: 90 3RF escitalopram oxalate 20 mg tablet 20 mg PO HS Qty: 90 3RF Myrbetriq 25 mg tablet extended release 24 hr 25 mg PO HS Qty: 90 3RF clopidogrel [Plavix] 75 mg tablet 75 mg PO QAM Qty: 90 3RF (DME) lancets Misc See Rx Instructions .ROUTE .MEDSUPPLY Qty: 100 Rx Instructions: As directed nitroglycerin 0.4 mg tablet, sublingual 0.4 mg sublingual DIRECTED PRN (Reason: Chest Pain) Qty: 30 0RF Rx Instructions: PLACE ONE TABLET UNDER THE TONGUE EVERY 5 MINUTES FOR UP TO 3 DOSES OVER 15 MINUTES IF NEEDED FOR CHEST PAIN albuterol sulfate [Ventolin HFA] 90 mcg/actuation HFA aerosol inhaler 2 puff INHALATION Q4H PRN (Reason: Wheezing) Qty: 8.5 0RF hydrocodone-acetaminophen 5-325 mg tablet 1 tab PO Q8H MDD 3 GRAMS APAP/24 HOURS PRN (Reason: pain) Qty: 20 0RF Rx Instructions: foot pain scale 7-10 baclofen 10 mg tablet 10 mg PO BID PRN (Reason: muscle spasm) Qty: 60 5RF metoprolol tartrate 50 mg tablet 50 mg PO HS diphenhydramine HCl [Benadryl Allergy] 25 mg tablet 25 mg PO DAILY PRN (Reason: itching) melatonin 3 mg Tablet,Disintegrating 3 mg PO HS PRN (Reason: Insomnia) cyanocobalamin (vitamin B-12) [Vitamin B-12] 1,000 mcg tablet 1,000 mcg PO QDL oxybutynin chloride 5 mg tablet 5 mg PO TID PRN (Reason: urinary discomfort) hydrocortisone 1 % cream 1 applic topical TID PRN (Reason: Rash) Ocuvite Tablet 1 tab PO QDL oxycodone 5 mg Tablet 5 mg PO Q8H PRN (Reason: Pain) Rx Instructions: pain foot-bilateral pantoprazole 40 mg tablet,delayed release (DR/EC) 40 mg PO .BIDAC insulin glargine [Basaglar KwikPen U-100 Insulin] 100 unit/mL (3 mL) insulin pen 6 unit SUBCUT Q12 acetaminophen 325 mg Tablet 650 mg PO Q4 PRN (Reason: Pain) enoxaparin 30 mg/0.3 mL Syringe 30 mg SUBCUT DAILY cyclobenzaprine 7.5 mg Tablet 7.5 mg PO Q8 cefdinir 300 mg capsule 300 mg PO Q12 docusate sodium 100 mg Capsule 100 mg PO BID gabapentin 100 mg Capsule 200 mg PO TID cholecalciferol (vitamin D3) [Vitamin D3] 125 mcg (5,000 unit) Tablet 125 mcg PO QDL lidocaine-menthol 4-1 % Adhesive Patch,Medicated 1 patch TOPICAL HS Rx Instructions: apply to foot at bedtime and remove in morning Admission Data Admit Date/Time: 10/10/22 05:13 Attending Provider: Hang Obrien Admit Provider: Kayli Monae [facility]iders: Kayli Monae Resident Activity Tracking Resident Involvement: Resident Care Provided Care Provided: Adult Hospital Medicine
--- NOTE | 2022-10-11 14:22 | Neurology Consultation ---
Date of Consultation October 11, 2022 Assessment & Plan (1) Stroke-like symptoms: Bilateral facial and tongue numbness in the setting of polypharmacy does not raise a concern for stroke. Suspect this is primarily a combination of polypharmacy and anxiety. Patient is very anxious and demands another MRI scan, which is likely to be low yield but given her age and risk factors, should be performed. For her symptom management I recommended she have med changes by one team only and that palliative care be involved for symptom control. Agree with discharge to rehab otherwise as I have nothing further to add. Telehealth Consultation Telehealth Information Telehealth Information: I performed this visit using a real-time telehealth connection between my location and the patients location ([facility]). After connecting through interactive tele-video, patient was identified by name and date of and/or wristband check.Patient (or authorized healthcare manufacturers representative) was informed that this was a telemedicine visit and it was being conducted confidentially over secure lines. My office door was closed and no one else was present in the room with me.Patient (or authorized healthcare manufacturers representative) provided consent to proceed with the visit, expressed an understanding of privacy and security of the telemedicine visit, and gave permission to have a hospital manufacturers representative in the room in order to assist with the visit and to conduct portions of the visit, as needed. I informed the patient (or authorized healthcare manufacturers representative) that I reviewed their record and presented the opportunity for them to ask any questions regarding the visit today. The patient agreed to participate. History of Present Illness Reason for Consultation: Facial numbness Requesting Physician: Dr. Obrien Attending Physician: Hang Obrien, DO History of Present Illness Liv Carvalho is an 81 yo F presenting with bilateral facial numbness that began after a readmission for severe foot pain while at rehab. She is very concerned that she is having a stroke, though similar symptoms on 10/04 did not reveal any changes on MRI. Per her daughter at bedside she improved significantly with fluids and her stroke like symptoms were thought to be secondary to dehydration. She also noted decreased dexterity in her hands with tremors. Yesterday she slept throughout the day secondary to pain medication given for her foot pain. Allergies Allergy/AdvReac Type Severity Reaction Status Date / Time cantaloupe Allergy Severe THROAT Verified 10/04/22 20:36 CLOSES celecoxib [From Celebrex] Allergy Severe CAUSED Verified 10/04/22 20:36 STROKE melon Allergy Severe THROAT Verified 10/04/22 20:36 CLOSES meperidine Allergy Severe almost Verified 10/04/22 20:36 "closed throat" midodrine Allergy Severe "almost Verified 10/04/22 20:36 closed throat" sulfamethoxazole Allergy Severe THROAT Verified 10/04/22 20:36 CLOSED trimethoprim Allergy Severe THROAT Verified 10/04/22 20:36 CLOSED watermelon Allergy Severe THROAT Verified 10/04/22 20:36 CLOSES diphenoxylate Allergy Intermediate Unknown Verified 10/04/22 20:36 metronidazole [From Flagyl] Allergy Intermediate Hives Verified 10/04/22 20:36 DENILSON Inhibitors Allergy Unknown unknown to Verified 10/04/22 20:36 pt atropine Allergy Unknown Unknown Verified 10/04/22 20:36 carvedilol Allergy Unknown Unknown Verified 10/04/22 20:36 clonazepam [From Klonopin] Allergy Unknown Unknown Verified 10/04/22 20:36 doxycycline Allergy Unknown Unknown Verified 10/04/22 20:36 furosemide [From Lasix] Allergy Unknown Unknown Verified 10/04/22 20:36 Histamine H2 Inhibitors Allergy Unknown unknown to Verified 10/04/22 20:36 pt Iodinated Contrast Media Allergy Unknown JULY 2017 Verified 10/04/22 20:36 [facility] -- TOLERATED WITH SLOW INFUSION PER PATIENT nitrofurantoin Allergy Unknown Unknown Verified 10/04/22 20:36 phenazopyridine Allergy Unknown Unknown Verified 10/04/22 20:36 ranitidine Allergy Unknown Unknown Verified 10/04/22 20:36 repaglinide Allergy Unknown Unknown Verified 10/04/22 20:36 rosiglitazone Allergy Unknown Unknown Verified 10/04/22 20:36 tolterodine [From Detrol] Allergy Unknown Unknown Verified 10/04/22 20:36 ciprofloxacin [From Cipro] AdvReac Severe throat Verified 10/04/22 20:36 swelling citalopram [From Celexa] AdvReac Severe SEE COMMENT Verified 10/04/22 20:36 diazepam AdvReac Severe SEDATION Verified 10/04/22 20:36 LASTING TOO LONG prednisone AdvReac Severe BSG Verified 10/04/22 20:36 ELEVATED TO THE 500'S glyburide AdvReac Intermediate SEVERE Verified 10/04/22 20:36 ABDOMINAL PAIN meloxicam [From Mobic] AdvReac Intermediate SICK TO Verified 10/04/22 20:36 STOMACH metformin AdvReac Intermediate SEVERE Verified 10/04/22 20:36 ABDOMINAL PAIN oxycodone AdvReac Intermediate SEVERE Verified 10/04/22 20:36 WITHDRAWAL SYMPTOMS WHEN TRYING TO STOP TAKING paroxetine AdvReac Intermediate DID NOT Verified 10/04/22 20:36 HELP tramadol AdvReac Intermediate Vomiting Verified 10/04/22 20:36 albuterol AdvReac Unknown UNK Verified 10/04/22 20:36 carbamazepine AdvReac Unknown Unknown Verified 10/04/22 20:36 ibuprofen AdvReac Unknown Unknown Verified 10/04/22 20:36 lisinopril AdvReac Unknown UNK Verified 10/04/22 20:36 mirtazapine AdvReac Unknown Unknown Verified 10/04/22 20:36 olanzapine AdvReac Unknown Unknown Verified 10/04/22 20:36 rofecoxib AdvReac Unknown Unknown Verified 10/04/22 20:36 valproic acid AdvReac Unknown Unknown Verified 10/04/22 20:36 Home Medications Medication Instructions Recorded Confirmed Type lancets #100 ea 03/03/20 10/10/22 History epinephrine 0.3 mg/0.3 mL 0.3 mg (0.3 mL) IM DIRECTED PRN 05/03/21 10/10/22 Rx injection, auto-injector Anaphylaxis #1 ea diphenhydramine HCl 25 mg tablet 25 mg PO DAILY PRN itching 05/19/21 10/10/22 History (Benadryl Allergy) melatonin 3 mg disintegrating 3 mg PO HS PRN Insomnia 07/22/21 10/10/22 History tablet cyanocobalamin (vitamin B-12) 1,000 mcg PO QDL 02/16/22 10/10/22 History 1,000 mcg tablet (Vitamin B-12) lactase 3,000 unit tablet (Lactaid) 9,000 unit PO .WITH MEALS AND HS 03/03/22 10/10/22 History PRN BEFORE ANY LACTOSE PRODUCTS loperamide 2 mg tablet 2 mg PO Q4H PRN Loose Stool 03/03/22 10/10/22 History (Anti-Diarrheal (loperamide)) hydrocortisone 1 % topical cream 1 applic topical TID PRN Rash 03/31/22 10/10/22 History oxybutynin chloride 5 mg tablet 5 mg PO TID PRN urinary discomfort 03/31/22 10/10/22 History pen needle, diabetic 31 gauge x #300 ea 04/19/22 10/10/22 Rx 5/16" (BD Ultra-Fine Short Pen Needle) albuterol sulfate 90 mcg/actuation 2 puff inhalation Q4H PRN Wheezing 05/01/22 10/10/22 Rx aerosol inhaler (Ventolin HFA) #8.5 grams nitroglycerin 0.4 mg sublingual 0.4 mg sublingual DIRECTED PRN 05/01/22 10/10/22 Rx tablet Chest Pain #30 tabs aspirin 81 mg tablet,delayed 81 mg PO QAM #90 tabs 05/09/22 10/10/22 Rx release blood-glucose sensor (Dexcom G6 #3 ea 05/23/22 10/10/22 Rx Sensor device) blood-glucose transmitter (Dexcom #1 ea 05/23/22 10/10/22 Rx G6 Transmitter device) blood-glucose meter,continuous #1 ea 05/24/22 10/10/22 Rx (Dexcom G6 Architectural Model Maker) baclofen 10 mg tablet 10 mg PO BID PRN muscle spasm #60 07/14/22 10/10/22 Rx tabs magnesium oxide 400 mg PO DAILY #60 tabs 07/27/22 10/10/22 Rx blood sugar diagnostic (OneTouch #200 ea 07/28/22 10/10/22 Rx Ultra Test strips) hydrocodone 5 mg-acetaminophen 325 1 tab PO Q8H PRN pain #20 tabs 08/11/22 10/10/22 Rx mg tablet ipratropium bromide 21 mcg (0.03 2 spray intranasal DAILY #30 mL 10/02/2202/22 Rx %) nasal spray metoprolol tartrate 50 mg tablet 50 mg PO HS 10/04/22 10/10/22 History clopidogrel 75 mg tablet (Plavix) 75 mg PO QAM #90 tabs 10/09/22 10/10/22 Rx escitalopram oxalate 20 mg tablet 20 mg PO HS #90 tabs 10/09/22 10/10/22 Rx mirabegron 25 mg tablet,extended 25 mg PO HS #90 tabs 10/09/22 10/10/22 Rx release 24 hr (Myrbetriq) montelukast 10 mg tablet 10 mg PO QDD #90 tabs 10/09/22 10/10/22 Rx (Singulair) acetaminophen 325 mg tablet 650 mg PO Q4 PRN Pain 10/10/22 10/10/22 History cefdinir 300 mg capsule 300 mg PO Q12 10/10/22 10/10/22 History cholecalciferol (vitamin D3) 125 125 mcg PO QDL 10/10/22 10/10/22 History mcg (5,000 unit) tablet (Vitamin D3) cyclobenzaprine 7.5 mg tablet 7.5 mg PO Q8 10/10/22 10/10/22 History docusate sodium 100 mg capsule 100 mg PO BID 10/10/22 10/10/22 History enoxaparin 30 mg/0.3 mL 30 mg subcut DAILY 10/10/22 10/10/22 History subcutaneous syringe gabapentin 100 mg capsule 200 mg PO TID 10/10/22 10/10/22 History insulin glargine 100 unit/mL (3 6 unit subcut Q12 10/10/22 10/10/22 History mL) subcutaneous pen (Basaglar KwikPen U-100 Insulin) lidocaine 4 %-menthol 1 % topical 1 patch topical HS 10/10/22 10/10/22 History patch oxycodone 5 mg tablet 5 mg PO Q8H PRN Pain 10/10/22 10/10/22 History pantoprazole 40 mg tablet,delayed 40 mg PO .BIDAC 10/10/22 10/10/22 History release vitamin A-vitamin C-vit E-min 1 tab PO QDL 10/10/22 10/10/22 History tablet Patient History Medical History Acute hypercapnic respiratory failure 03/2019 [facility] (acute kidney injury) Anxiety and depression Asthma Per pulmonology 10/10/19, likely NOT asthma but chronic aspiration. Flovert and Spiriva discontinued, pt to use albuterol PRN Breast cancer UNSURE WHICH SIDE WAS CANCER. Chronic back pain Chronic kidney disease, stage 3a Chronic neck pain Chronic pulmonary aspiration 2/2 h/o CVA, [facility]. Diabetic peripheral neuropathy associated with type 2 diabetes mellitus Dyslipidemia Encephalopathy Fusion of spine GERD (gastroesophageal reflux disease) History of benign brain tumor History of dysphagia ESOPHAGEAL DILATION IN PAST History of esophageal dilatation History of spinal stenosis History of stroke History of uterine cancer Endometrial biopsy revealed endometrioid adenocarcinoma. Status post total abdominal hysterectomy and bilateral salpingo-oophorectomy. 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 Left pontine stroke Leukopenia Lymphedema of right arm CHRONIC, 2/2 MASTECTOMY Meningioma R temporal lobe, neurology monitoring. Microalbuminuria due to type 2 diabetes mellitus Microcytic anemia Morbid obesity Neuropathy Numb feet, painful radiculopathy in hands from cervical radiculopathy Obesity hypoventilation syndrome Osteoarthritis PAC (premature atrial contraction) PVC (premature ventricular contraction) Sensorineural hearing loss (SNHL) of both ears Severe obstructive sleep apnea CPAP, pt reports compliance T2DM (type 2 diabetes mellitus) Uterine cancer S/P RICHARD BSO WITH RADIATION Weakness Surgical History Difficult airway for intubation History of cardiac catheterization NO STENTS History of cataract surgery BILATERAL History of cholecystectomy History of colonoscopy History of esophagogastroduodenoscopy (EGD) History of knee surgery ARTHROSCOPY LEFT KNEE History of mastectomy BILATERAL History of total abdominal hysterectomy BSO S/P hysterectomy Family History Mother Diabetes Myocardial infarction Hypertension Family history of diabetes mellitus Brother Family history of diabetes mellitus Sister Osteoporosis Arthritis Denies family history of Ovarian cancer Prostate cancer Breast cancer Colorectal cancer Social History Smoking Status: Former smoker Tobacco Type: Cigarettes Age Started Using Tobacco: 15; Age Quit Using Tobacco: 30; packs per day: 1; Second Hand Exposure: No; Do You Dip or Chew Tobacco: No; Hx Alcohol Use: No Hx Substance Use: No Preferred Language: [place] Communication Ability: Effective Communication Ability Comment: per [facility] pt signs own consents Visual Impairment: Limited Hearing Ability: Hard of Hearing [employer] Required: No Beliefs That Will Affect Care: None marital status: / Current Living Situation: Rehab Current Living Situation Comment: [facility] current occupational status: retired 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 [employer] Other Information That Helps Us Care for You: No Feels Safe at Home: Yes Safety Concerns: Feels Safe At This Time Childhood Exposure to Second-Hand Smoke: No Diet: low carbohydrate Diet Comment: low carb Dental Care, Regularly: Yes Physical Activity Frequency: Does not Exercise Seatbelt Use: always Sunscreen Use: No Assistive Devices: Cane Review of Systems +foot pain, facial numbness Results & Data Vital Signs (Past 12 Hours) Vital Signs Temp Pulse Resp BP Pulse Ox O2 Del Method O2 Flow Rate 10/11/22 10:51 36.5 C 62 18 138/75 90 Room Air 10/11/22 08:45 Room Air 10/11/22 07:39 36.7 C 55 L 18 138/78 98 Room Air 10/11/22 03:20 36.7 C 59 L 20 107/67 98 Nasal Cannula 2 Laboratory Results Abnormal lab results 10/10/22 10/10/22 10/11/22 Range/Units 16:38 20:05 05:32 WBC 4.59 L (4.8-10.8) K/ul Hgb 11.4 L (12.0-16.0) g/dl Hct 36.6 L (37.0-47.0) % MCV 77.7 L (80.0-100.0) fL MCH 24.2 L (25.0-34.0) pg MCHC 31.1 L (32.0-36.0) g/dL Plt Count 110 L (130-400) K/uL BUN (6-23) mg/dl Creatinine (0.6-1.2) mg/dl BUN/Creatinine Ratio (10-20) Glucose (70-99(Fasting)) mg/dl POC Glucose 119 H 118 H (70-99) mg/dl 10/11/22 10/11/22 10/11/22 Range/Units 05:32 07:29 11:22 WBC (4.8-10.8) K/ul Hgb (12.0-16.0) g/dl Hct (37.0-47.0) % MCV (80.0-100.0) fL MCH (25.0-34.0) pg MCHC (32.0-36.0) g/dL Plt Count (130-400) K/uL BUN 32 H (6-23) mg/dl Creatinine 1.29 H D (0.6-1.2) mg/dl BUN/Creatinine Ratio 24.8 H (10-20) Glucose 123 H (70-99(Fasting)) mg/dl POC Glucose 125 H 150 H (70-99) mg/dl Diagnostic Findings MRI - 10/04 - Unremarkable
--- NOTE | 2022-10-11 15:47 | Hospitalist Progress Note ---
Date of Service October 11, 2022 Assessment & Plan (1) Foot pain: Plan: Pt is a 81 yo female with PMH of DM, HLD, GERD, CKD, and CVA presenting due to foot pain. Pt was recently admitted 10/04-10/06 for stroke-like symptoms caused by RIND vs. dehydration. New onset neurologic symptoms - very similar to pt's recent presentation to hospital; CT and MRI (10/04) at that time neg for acute stroke - neuro consulted; low likelihood of acute stroke, but agreed with getting a repeat MRI brain- also recommended palliative care involvement - suspect a mixture of anxiety, polypharmacy, and residual side effects from previous stroke Acute on chronic foot pain - unsure of etiology although issue appears to be chronic as pt has seen neuro and PCP for these complaints- recent neuro note 09/12 relays that pt was referred to podiatry for further eval - XR from 01/2022 showed soft tissue swelling w/o fracture - US neg for DVT; MRI neg for fracture, showed some lateral ankle swelling - neuropathic pain vs metatarsalgia vs. Drake neuroma; uric acid WNL - continue tylenol PRN, home gabapentin and baclofen- may consider increase in pt's gabapentin if thought that nerve pain is a large contributor - per pt's daughter, baclofen at the beginning of an episode has thwarted any worsening of the pain - pt would mostly benefit from further outpatient work up and adjustment of medications HTN - continue home metoprolol DM - may resume home regimen Depression - continue escitalopram 20mg qHS FEN: carb consistent diet VTE ppx: Lovenox Code: DNR/DNI Dispo: d/c to [facility] tomorrow pending MRI (2) Hypertension: (3) T2DM (type 2 diabetes mellitus): (4) Depression: Admission and Anticipated Discharge Date Admission Date: October 10, 2022 Supervising Physician Co-Signing Physician Notes ATTESTATION I also saw the patient and confirmed chiu portions of the history and exam. I agree with the impression and plan in the resident documentation, and as summarized below. This morning, the patient was sleeping. She awakens to voice. Once awakened, she complains of allover numbness, and in particular, bilateral upper extremity hand numbness and weakness. She does not note the foot pain, and the spasms noted yesterday during my exam are not present this morning. EXAM 149/54, 68, 18, 36.6, 92% on room air She is awake and oriented. Somewhat thickened speech subsequent to previous CVA, although it is easily understood Focused exam of the right foot -no ecchymosis, no obvious swelling. There is some tenderness across the right forefoot with my palpation, although not nearly to the degree of discomfort that she gets with the intermittent " spasms," several which occurred during my exam. DATA Labs WBC 4.59, hemoglobin 11.4 BUN 32, creatinine 1.29 Imaging MRI of the left foot completed 10/10/2022 shows no acute abnormalities nor evidence of osteomyelitis. Mild edema seen in the lateral ankle. IMPRESSION & PLAN Neurologic symptoms Similar presentation to her 10/04/2022 hospitalization with work-up as noted above Neuro consultation suggest low likelihood of acute stroke, suspect mixture of anxiety, polypharmacy, and residual side effects from previous neurovascular insults Brain MRI pending today Right foot pain, uncertain etiology Uncertain etiology, question neuropathic pain; always has a spasm-like quality that could be related to prior CVA, or her known lumbar spinal stenosis; although thought to be a peroneal entrapment phenomenon Her complaints yesterday, at [facility], and previous emergency department visits focused on the right foot; neurology notes (previous outpatient) discussed iss ues in the left foot; is not clear if she is having bilateral symptoms, or if the outpatient neurology note was simply a topographical error? MRI of the right foot completed yesterday seemingly excludes local etiology -I suspect this is more neuropathic/radicular Additional per resident documentation Subjective Pt groggy this AM. She stated her foot no longer hurt. Pt re evaluated later in the day. She states she had new onset symptoms that began this morning including bilateral whole body numbness and trouble speaking (feeling that her tongue is enlarged). Review of Systems Review of Systems: As per HPI Physical Exam Physical Exam: Constitutional: well appearing, mild distress HEENT: normocephalic, no conjunctival injection CV: RRR, no murmur, no LE edema Respiratory: CTA bilaterally. No rhonchi, wheezes, or crackles. No increased work of breathing MSK: no gross deformities noted. No pain upon palpation of the feet. Skin: warm, dry, no rashes Neuro: alert, oriented, no FND noted Psych: mood and affect congruent Results & Data Results & Data Vital Signs (Past 12 Hours) Vital Signs Temp Pulse Resp BP Pulse Ox O2 Del Method 10/11/22 15:09 36.7 C 62 18 128/79 91 Room Air 10/11/22 10:51 36.5 C 62 18 138/75 90 Room Air 10/11/22 08:45 Room Air 10/11/22 07:39 36.7 C 55 L 18 138/78 98 Room Air Resident Activity Tracking Resident Involvement: Resident Care Provided Care Provided: Adult Hospital Medicine (2) Hypertension Hypertension type: unspecified Qualified Code(s): I10 - Essential (primary) hypertension
--- NOTE | 2022-10-11 18:16 | Magnetic Resonance Report ---
MRI OF THE BRAIN WITHOUT IV CONTRAST CLINICAL HISTORY: Whole body numbness. Speech dysarthria. COMPARISON STUDY: MRI of the brain dated 10/04/2022. TECHNIQUE: MRI of the brain was performed utilizing various T1 and T2-weighted sequences in the axial , sagittal, and coronal planes. IV contrast was not administered for this examination. FINDINGS: Brain parenchyma: There is age-related involutional change noting moderate confluent subcortical and periventricular microangiopathic disease. A 1.6 cm calcified meningioma along the right convexity is unchanged. There is no associated mass effect. No hemorrhage is seen. There is no restricted diffusio n to suggest acute ischemia. Chronic lacunar infarcts are noted in the right thalamus and the left as pect of the carey. Fregoso-white matter differentiation is preserved. No extra-axial fluid collection is seen. The cerebellar tonsils are normal in configuration. Ventricles, sulci, and cisterns: Prominent symmetrical involutional changes. Pituitary and sella: Partially empty sella is incidentally noted. Intracranial vasculature: Normal flow voids are maintained at the skull base. Orbits: The bony orbits are grossly intact. Orbital contents are normal in appearance noting bilatera l ocular lens implants. Sinuses and mastoids: Clear. Calvarium: Unremarkable. Cervical cord: Partially visualized cervical spinal cord is normal in morphology and signal intensity . IMPRESSION: No acute intracranial abnormality. No significant change from 10/04/2022. ACT 112: Negative or not required by law. Electronically signed by: Joey Patterson M.D. 10/11/2022 6:14 PM
[2022-10-11] MEDS: MONTELUKAST SODIUM 10 MG TABLET PO SCH (18:27)
[2022-10-11] MEDS: METOPROLOL TARTRATE 50 MG TAB PO SCH (21:12)
[2022-10-11] MEDS: ESCITALOPRAM OXALATE 20 MG TAB PO SCH (21:24)
[2022-10-12] MEDS: ACETAMINOPHEN 500 MG TAB PO SCH ×2 (05:35→14:51)
[2022-10-12] MEDS: CYCLOBENZAPRINE HCL 5 MG TAB PO SCH ×2 (05:36→14:51)
[2022-10-12] MEDS: INSULIN ASPART PER UNIT CHARGE SC SCH ×3 (09:25→17:16)
[2022-10-12] MEDS: PANTOprazole 40 MG TAB PO SCH ×2 (09:26→17:00)
[2022-10-12] MEDS: ASPIRIN 81 MG ECTAB PO SCH (09:26)
[2022-10-12] MEDS: ENOXAPARIN INJ 30 MG/0.3 ML SYR SQ SCH (09:27)
[2022-10-12] MEDS: CLOPIDOGREL BISULFATE 75 MG TAB PO SCH (09:27)
[2022-10-12] MEDS: GABAPENTIN 100 MG CAP PO SCH ×2 (09:27→14:51)
[2022-10-12] MEDS: DOCUSATE SODIUM 100 MG CAP PO SCH (09:27)
[2022-10-12] MEDS: IPRATROPIUM BROMIDE NASAL SPRAY 0.06% 15ML NAE SCH (09:28)
[2022-10-12] MEDS: LANTUS PER UNIT CHARGE SQ SCH (09:35)
--- NOTE | 2022-10-12 09:41 | Discharge Summary ---
Date of Service October 12, 2022 Admission HPI Per Admitting Provider History obtained mostly from daughter at bedside. Patient somnolent after receiving Morphine. Liv Carvalho is an 81yo female with history of HTN, HLP, DM, CKD, GERD presenting with severe right foot pain. This is a recurrent issue for her - she has developed severe forefoot pain, mostly in the right but occasionally in the left - often associated with PT exercises or certain footwear. Has seen Orthopedics who thing the pain is possibly secondary to neuropathic pain. Has seen Neurology who thinks that the pain is possibly secondary to a tendon. Pain this evening developed around 18:00. Patient unable to walk due to pain. She is typically able to feel the pain come on and can take a Hydrocodone for the pain which relieves it. However, she is currently at [facility] and was given Tylenol first which did not relieve the pain. No additional complaints at this time X-ray of the right foot in 01/2022 with soft tissue edema - no fracture In the ER she was given Ativan, Morphine and Oxycodone. Very somnolent after medication - now on 2L NC, snoring considerably Admission Exam Per Admitting Provider General: patient resting comfortably, NAD, non-toxic in appearance, AA&O x 4 Skin: warm, dry, intact, no rashes or lesions HEENT: NC/AT, PERRL, EOMI, anicteric sclera, conjunctiva without injection, external ear normal to inspection and nontender, nares patent, moist mucus membranes, dentition intact, no oropharyngeal lesions, neck supple, trachea midline, no LAD, no thyromegaly, no JVD Heart: +S1/S2, regular, no m/r/g Lungs: equal air entry bilaterally, no rales/rhonchi/wheezes Abd: +BS, soft, NT/ND, no masses/organomegaly/ascites Ext: warm, 2+ pulses in UE/LE bilaterally, no clubbing/cyanosis or edema, pain with palpation of MTP joints on right foot Neuro: nonfocal, patient AA&O x 4, speech intact, no facial droop, moving all extremities on command with equal strength 5/5 Principal Diagnosis right foot pain, acute neurologic symptoms Discharge Exam Constitutional: well appearing, no acute distress HEENT: normocephalic, no conjunctival injection CV: regular rhythm, regular rate, no murmur, no LE edema Respiratory: Expiratory wheezing heard throughout. No rhonchi or crackles. No increased work of breathing MSK: no gross deformities noted. No right foot pain upon palpation Skin: warm, dry, no rashes Neuro: alert, oriented, no FND noted Discharge Data Allergies Allergy/AdvReac Type Severity Reaction Status Date / Time cantaloupe Allergy Severe THROAT Verified 10/04/22 20:36 CLOSES celecoxib [From Celebrex] Allergy Severe CAUSED Verified 10/04/22 20:36 STROKE melon Allergy Severe THROAT Verified 10/04/22 20:36 CLOSES meperidine Allergy Severe almost Verified 10/04/22 20:36 "closed throat" midodrine Allergy Severe "almost Verified 10/04/22 20:36 closed throat" sulfamethoxazole Allergy Severe THROAT Verified 10/04/22 20:36 CLOSED trimethoprim Allergy Severe THROAT Verified 10/04/22 20:36 CLOSED watermelon Allergy Severe THROAT Verified 10/04/22 20:36 CLOSES diphenoxylate Allergy Intermediate Unknown Verified 10/04/22 20:36 metronidazole [From Flagyl] Allergy Intermediate Hives Verified 10/04/22 20:36 DENILSON Inhibitors Allergy Unknown unknown to Verified 10/04/22 20:36 pt atropine Allergy Unknown Unknown Verified 10/04/22 20:36 carvedilol Allergy Unknown Unknown Verified 10/04/22 20:36 clonazepam [From Klonopin] Allergy Unknown Unknown Verified 10/04/22 20:36 doxycycline Allergy Unknown Unknown Verified 10/04/22 20:36 furosemide [From Lasix] Allergy Unknown Unknown Verified 10/04/22 20:36 Histamine H2 Inhibitors Allergy Unknown unknown to Verified 10/04/22 20:36 pt Iodinated Contrast Media Allergy Unknown JULY 2017 Verified 10/04/22 20:36 [facility] -- TOLERATED WITH SLOW INFUSION PER PATIENT nitrofurantoin Allergy Unknown Unknown Verified 10/04/22 20:36 phenazopyridine Allergy Unknown Unknown Verified 10/04/22 20:36 ranitidine Allergy Unknown Unknown Verified 10/04/22 20:36 repaglinide Allergy Unknown Unknown Verified 10/04/22 20:36 rosiglitazone Allergy Unknown Unknown Verified 10/04/22 20:36 tolterodine [From Detrol] Allergy Unknown Unknown Verified 10/04/22 20:36 ciprofloxacin [From Cipro] AdvReac Severe throat Verified 10/04/22 20:36 swelling citalopram [From Celexa] AdvReac Severe SEE COMMENT Verified 10/04/22 20:36 diazepam AdvReac Severe SEDATION Verified 10/04/22 20:36 LASTING TOO LONG prednisone AdvReac Severe BSG Verified 10/04/22 20:36 ELEVATED TO THE 500'S glyburide AdvReac Intermediate SEVERE Verified 10/04/22 20:36 ABDOMINAL PAIN meloxicam [From Mobic] AdvReac Intermediate SICK TO Verified 10/04/22 20:36 STOMACH metformin AdvReac Intermediate SEVERE Verified 10/04/22 20:36 ABDOMINAL PAIN oxycodone AdvReac Intermediate SEVERE Verified 10/04/22 20:36 WITHDRAWAL SYMPTOMS WHEN TRYING TO STOP TAKING paroxetine AdvReac Intermediate DID NOT Verified 10/04/22 20:36 HELP tramadol AdvReac Intermediate Vomiting Verified 10/04/22 20:36 albuterol AdvReac Unknown UNK Verified 10/04/22 20:36 carbamazepine AdvReac Unknown Unknown Verified 10/04/22 20:36 ibuprofen AdvReac Unknown Unknown Verified 10/04/22 20:36 lisinopril AdvReac Unknown UNK Verified 10/04/22 20:36 mirtazapine AdvReac Unknown Unknown Verified 10/04/22 20:36 olanzapine AdvReac Unknown Unknown Verified 10/04/22 20:36 rofecoxib AdvReac Unknown Unknown Verified 10/04/22 20:36 valproic acid AdvReac Unknown Unknown Verified 10/04/22 20:36 Consultations 10/10/22 04:28 ED Decision to Admit Stat 10/11/22 11:55 Consult Neurology Routine Ordered Studies 10/10/22 04:01 US venous doppler LE RT Stat IMPRESSION: There is no sonographic evidence of deep venous thrombosis identified in the right lower extremity. 10/10/22 17:14 MRI Foot [MR foot RT w/o con] Routine IMPRESSION: No acute abnormalities and in particular no evidence of osteomyelitis. Mild edema is seen in the lateral ankle. 10/11/22 15:44 MRI Brain [MR brain wo con] Routine IMPRESSION: No acute intracranial abnormality. No significant change from 10/04/2022. Hospital Course (1) Foot pain: Pt is a 81 yo female with PMH of DM, HLD, GERD, CKD, and CVA presenting due to foot pain. Pt was recently admitted 10/04-10/06 for stroke-like symptoms caused by RIND vs. dehydration. New onset neurologic symptoms - very similar to pt's recent presentation to hospital; CT and MRI (10/04) at that time neg for acute stroke - neuro consulted; no acute intervention, recommended palliative care involvement - repeat MRI brain (10/11) neg - suspect a mixture of anxiety, polypharmacy, and residual side effects from previous stroke ?Hx of asthma - more likely due to chronic aspiration - encouraged pt to use albuterol inhaler PRN Acute on chronic foot pain - unsure of etiology although issue appears to be chronic as pt has seen neuro and PCP for these complaints- recent neuro note 09/12 relays that pt was referred to podiatry for further eval - XR from 01/2022 showed soft tissue swelling w/o fracture - US neg for DVT; MRI neg for fracture, showed some lateral ankle swelling - neuropathic pain vs metatarsalgia vs. Drake neuroma; uric acid WNL - continue tylenol PRN, home gabapentin and baclofen- may consider increase in pt's gabapentin if thought that nerve pain is a large contributor - per pt's daughter, baclofen at the beginning of an episode has thwarted any worsening of the pain; per discussion with pt this AM, she states oxycodone works better - pt would mostly benefit from further outpatient work up and adjustment of medications HTN - continue home metoprolol DM - may resume home regimen Depression - continue escitalopram 20mg qHS FEN: carb consistent diet VTE ppx: lovenox Code: DNR/DNI Dispo: [facility] (2) Hypertension: (3) T2DM (type 2 diabetes mellitus): (4) Depression: Total Time Total Time Spent Total Time Spent (In Minutes): I spent a total of 35 minutes seeing the patient, reviewing data, and dictating Discharge Plan Discharge Items Patient Disposition: Transfer Inpatient Rehab Fac Reason For Visit: FOOT PAIN Discharge Diagnosis: acute on chronic foot pain Condition on Discharge: Good Activity: Per Instructions section Non-emergency contact: Primary Care Provider Call non-emergency contact if: you have any medication questions, your symptoms worsen and your pain is not controlled Follow-up/Referrals: [facility] [Primary Care Provider] - Diet: Carb Consistent or DM2 Addtl Attending Provider Instructions: Pt is a 81 yo female with PMH of DM, HLD, GERD, CKD, and CVA presenting due to foot pain. Pt was recently admitted 10/04-10/06 for stroke-like symptoms caused by RIND vs. dehydration. New onset neurologic symptoms - very similar to pt's recent presentation to hospital; CT and MRI (10/04) at that time neg for acute stroke - neuro consulted; no acute intervention, recommended palliative care involvement - repeat MRI brain (10/11) neg - suspect a mixture of anxiety, polypharmacy, and residual side effects from previous stroke Acute on chronic foot pain - unsure of etiology although issue appears to be chronic as pt has seen neuro and PCP for these complaints- recent neuro note 09/12 relays that pt was referred to podiatry for further eval - XR from 01/2022 showed soft tissue swelling w/o fracture - US neg for DVT; MRI neg for fracture, showed some lateral ankle swelling - neuropathic pain vs metatarsalgia vs. Drake neuroma; uric acid WNL - continue tylenol PRN, home gabapentin and baclofen- may consider increase in pt's gabapentin if thought that nerve pain is a large contributor - per pt's daughter, baclofen at the beginning of an episode has thwarted any worsening of the pain; per discussion with pt this AM, she states oxycodone works better - pt would mostly benefit from further outpatient work up and adjustment of medications HTN - continue home metoprolol DM - may resume home regimen Depression - continue escitalopram 20mg qHS FEN: carb consistent diet VTE ppx: lovenox Code: DNR/DNI Dispo: [facility] Pending Studies at Discharge: No Stand-Alone Forms: My [facility] Skilled Items Patient informed of condition?: Yes DNR: Yes Discharge Level of Care: Acute rehab Communicable Disease: No Discharge Prognosis: Stable Lines: None Urinary Catheter: No Medications and DC Order Prescriptions: Continued epinephrine 0.3 mg/0.3 mL auto-injector 0.3 mg IM DIRECTED PRN (Reason: Anaphylaxis) Qty: 1 0RF loperamide [Anti-Diarrheal (loperamide)] 2 mg tablet 2 mg PO Q4H PRN (Reason: Loose Stool) Rx Instructions: administer after each loose stool until symptoms controlled; do not exceed 8 mg per 24 hrs lactase [Lactaid] 3,000 unit tablet 9,000 unit PO .WITH MEALS AND HS PRN (Reason: BEFORE ANY LACTOSE PRODUCTS) Rx Instructions: administer with meals and/or snacks (DME) pen needle, diabetic [BD Ultra-Fine Short Pen Needle] 31 gauge x 5/16" needle See Rx Instructions .ROUTE .MEDSUPPLY Qty: 300 3RF Rx Instructions: Inject insulin three times daily aspirin 81 mg tablet,delayed release (DR/EC) 81 mg PO QAM Qty: 90 3RF (DME) Dexcom G6 Sensor Device See Rx Instructions .ROUTE .MEDSUPPLY Qty: 3 0RF Rx Instructions: use 3 times a day and as needed to check blood glucose (DME) Dexcom G6 Transmitter Device See Rx Instructions .ROUTE .MEDSUPPLY Qty: 1 0RF Rx Instructions: use 3 times a day and as needed to check blood glucose (DME) Dexcom G6 Paving Machine Operator Misc See Rx Instructions .ROUTE .MEDSUPPLY Qty: 1 0RF Rx Instructions: use 3 times a day and as needed to check blood glucose magnesium oxide 200 mg magnesium tablet 400 mg PO DAILY Qty: 60 5RF (DME) OneTouch Ultra Test Strip See Rx Instructions .Route Qty: 200 2RF Rx Instructions: Test 4 times a day ipratropium bromide 21 mcg (0.03 %) spray,non-aerosol 2 spray intranasal DAILY Qty: 30 2RF Rx Instructions: administer into each nostril montelukast [Singulair] 10 mg tablet 10 mg PO QDD Qty: 90 3RF escitalopram oxalate 20 mg tablet 20 mg PO HS Qty: 90 3RF Myrbetriq 25 mg tablet extended release 24 hr 25 mg PO HS Qty: 90 3RF clopidogrel [Plavix] 75 mg tablet 75 mg PO QAM Qty: 90 3RF (DME) lancets Misc See Rx Instructions .ROUTE .MEDSUPPLY Qty: 100 Rx Instructions: As directed nitroglycerin 0.4 mg tablet, sublingual 0.4 mg sublingual DIRECTED PRN (Reason: Chest Pain) Qty: 30 0RF Rx Instructions: PLACE ONE TABLET UNDER THE TONGUE EVERY 5 MINUTES FOR UP TO 3 DOSES OVER 15 MINUTES IF NEEDED FOR CHEST PAIN albuterol sulfate [Ventolin HFA] 90 mcg/actuation HFA aerosol inhaler 2 puff INHALATION Q4H PRN (Reason: Wheezing) Qty: 8.5 0RF hydrocodone-acetaminophen 5-325 mg tablet 1 tab PO Q8H MDD 3 GRAMS APAP/24 HOURS PRN (Reason: pain) Qty: 20 0RF Rx Instructions: foot pain scale 7-10 baclofen 10 mg tablet 10 mg PO BID PRN (Reason: muscle spasm) Qty: 60 5RF metoprolol tartrate 50 mg tablet 50 mg PO HS diphenhydramine HCl [Benadryl Allergy] 25 mg tablet 25 mg PO DAILY PRN (Reason: itching) melatonin 3 mg Tablet,Disintegrating 3 mg PO HS PRN (Reason: Insomnia) cyanocobalamin (vitamin B-12) [Vitamin B-12] 1,000 mcg tablet 1,000 mcg PO QDL oxybutynin chloride 5 mg tablet 5 mg PO TID PRN (Reason: urinary discomfort) hydrocortisone 1 % cream 1 applic topical TID PRN (Reason: Rash) vitamin A-vitamin C-vit E-min Tablet 1 tab PO QDL oxycodone 5 mg Tablet 5 mg PO Q8H PRN (Reason: Pain) Rx Instructions: pain foot-bilateral pantoprazole 40 mg tablet,delayed release (DR/EC) 40 mg PO .BIDAC insulin glargine [Basaglar KwikPen U-100 Insulin] 100 unit/mL (3 mL) insulin pen 6 unit SUBCUT Q12 acetaminophen 325 mg Tablet 650 mg PO Q4 PRN (Reason: Pain) enoxaparin 30 mg/0.3 mL Syringe 30 mg SUBCUT DAILY cyclobenzaprine 7.5 mg Tablet 7.5 mg PO Q8 cefdinir 300 mg capsule 300 mg PO Q12 docusate sodium 100 mg Capsule 100 mg PO BID gabapentin 100 mg Capsule 200 mg PO TID cholecalciferol (vitamin D3) [Vitamin D3] 125 mcg (5,000 unit) Tablet 125 mcg PO QDL lidocaine-menthol 4-1 % Adhesive Patch,Medicated 1 patch TOPICAL HS Rx Instructions: apply to foot at bedtime and remove in morning Discharge Orders: Discharge Order (Routine); Ordered 10/12/22 Ordered By: Anne-Marie Ellington Admission Data Admit Date/Time: 10/10/22 05:13 Attending Provider: Hang Obrien Admit Provider: Kayli Monae [facility] Other Providers: Kayli Monae Other Interventions: Discharge Summary Assessment (RN) Last Done: 10/12/22 16:52 Supervising Physician Co-Signing Physician Notes ATTESTATION I also saw the patient and confirmed chiu portions of the history and exam. I agree with the impression and plan in the resident documentation, and as summarized below. This morning, the patient seems more alert/pleasant. The time of her exam, she is in the midst of physical therapy. Her daughter is at bedside. The patient has several questions regarding her medications but denies any leg pain at present; similarly, does not note any of the numbness she had reported yesterday. EXAM Vital signs stable, mildly elevated blood pressure noted. She is awake and oriented. DATA Imaging MRI of the left foot completed 10/10/2022 shows no acute abnormalities nor evidence of osteomyelitis. Mild edema seen in the lateral ankle. MRI of the brain dated 10/11/2021 demonstrates no acute intracranial abnormality and no significant change when compared to 10/04/2022. IMPRESSION & PLAN Neurologic symptoms Similar presentation to her 10/04/2022 hospitalization with work-up as noted above Neuro consultation suggest low likelihood of acute stroke, suspect mixture of anxiety, polypharmacy, and residual side effects from previous neurovascular insults Brain MRI completed 10/11/2021 demonstrates no new findings Right foot pain, uncertain etiology Uncertain etiology, question neuropathic pain; always has a spasm-like quality that could be related to prior CVA, or her known lumbar spinal stenosis; although thought to be a peroneal entrapment phenomenon Her complaints yesterday, at [facility], and previous emergency department visits focused on the right foot; neurology notes (previous outpatient) discussed issues in the left foot; is not clear if she is having bilateral symptoms, or if the outpatient neurology note was simply a topographical error? MRI of the right foot completed yesterday seemingly excludes local etiology -I suspect this is more neuropathic/radicular. I discussed the case with the physician at the rehabilitation hospital in effort to ease transition of care and support continued outpatient work-up and medication adjustments Additional per resident documentation Resident Activity Tracking Resident Involvement: Resident Care Provided Care Provided: Adult [facility]
[2022-10-12] MEDS: MONTELUKAST SODIUM 10 MG TABLET PO SCH (17:00)
== END 2022-10-12 17:51 ==
LOC: 2N 01:31 → ED 01:31 → SUATTDRO 05:13 → 2N 06:23